=== PATIENT | female | born 1945 | race Caucasian/White ===

== ENCOUNTER → 2017-03-03 | Outpatient (CLI) | payer MEDICARE, SELFPAY | PROVIDERS: Family Provider Family Medicine; Visit Provider Family Medicine | DX: M25.511 Pain in right shoulder (principal) | CPT/HCPCS: 73221 ==

== ENCOUNTER 2017-03-23 10:12 | Outpatient (RCR) | payer MEDICARE, SELFPAY | END 2017-03-23 23:59 | LOC: OT 10:12 | PROVIDERS: Family Provider Family Medicine; Visit Provider Orthopaedic Surgery | DX: M25.511 Pain in right shoulder (principal) | CPT/HCPCS: 97110 ==

== ENCOUNTER → 2017-12-14 09:24 | Outpatient (CLI) | payer MEDICARE, SELFPAY ==
--- NOTE | 2017-12-14 09:26 | MM_ITS ---
MM Dig screening mamm BI w/CAD ORDERING PHYSICIAN : Patrica Verdugo MD PATIENT AGE: 72 years GENDER: Female COMPARISON: None available baseline study INDICATION: ITS.REASON: SCREENING. No hormones. No new complaints noncontributory family history TECHNIQUE: Standard CC and MLO images were obtained. R2 CAD reviewed. FINDINGS: Moderately dense breast particular for age. Mild asymmetry RIGHT BREAST:Note 2 MLO views are submitted. The planar tissue is slightly more evident at right retroareolar region the left but seems to dissipate appropriately on the cc view. Thus no dominant mass or suspicious calcification evident. Follow-up in one year adequate LEFT BREAST:Again note moderately dense breast tissue for age but no focal areas of concern IMPRESSION: . Baseline mammogram. Mild asymmetry but no focal areas of significant concern. Bilateral follow-up in one year recommended and encouraged BI-RADS Category: 2 Benign Finding(s) RECOMMENDED FOLLOW-UP: 1YR 1 YEAR FOLLOW-UP (A letter has been sent to the patient regarding results of the study.)
--- NOTE | 2017-12-14 09:27 | XR_ITS ---
XR DEXA axial skeleton HISTORY: ITS.REASON: POST MENOPAUSAL ORDERING PHYSICIAN: Patrica Verdugo MD PATIENT AGE: 72 years FINDINGS: The BMD measured at the Right femoral neck is 0.756 g/cm squared with a T score of -2.0. This is considered Osteopenic according to the World Health Organization criteria. Fracture risk is Moderate. Treatment is advised. L1-L4 density has a T score of -0.6 IMPRESSION: Osteopenia with moderate fracture risk. Treatment is advised. Recommend follow-up exam December 2019
== END ==
PROVIDERS: Family Provider Family Medicine; PCP Family Medicine; Visit Provider Emergency Medicine
DX: Z12.31 Encounter for screening mammogram for malignant neoplasm of breast (principal); Z78.0 Asymptomatic menopausal state
CPT/HCPCS: 77067; 77080

== ENCOUNTER → 2018-02-28 10:16 | Outpatient (CLI) | payer MEDICARE, SELFPAY ==
--- NOTE | 2018-02-28 10:27 | XR_ITS ---
XR hip RT 2-3V w/pelvis HISTORY: ITS.REASON: RT HIP PAIN ORDERING PHYSICIAN: Patrica Verdugo MD PATIENT AGE: 72 years COMPARISON: None FINDINGS: There are mild osteoarthritic changes involving the right hip with osteophyte formation along the acetabulum. No fracture or dislocation. No lytic or blastic change. There is a pessary device present. Mild osteoarthritis is also present involving the left hip. IMPRESSION: Mild osteoarthritis of the hips
== END ==
PROVIDERS: PCP Emergency Medicine; Visit Provider Emergency Medicine
DX: M25.551 Pain in right hip (principal)
CPT/HCPCS: 73502

== ENCOUNTER → 2018-05-02 15:36 | Outpatient (CLI) | payer MEDICARE, SELFPAY ==
--- NOTE | 2018-05-02 15:40 | MR_ITS ---
MR hip RT wo con HISTORY: Persistent right hip pain ITS.REASON: RIGHT HIP PAIN ORDERING PHYSICIAN: Salvador Barrera MD PATIENT AGE: 72 years COMPARISON: 02/27/2019 TECHNIQUE: Routine multiplanar multiecho sequences are performed without contrast FINDINGS: No fracture or dislocation is evident. There is no evidence of avascular necrosis. There are mild osteoarthritic changes of both hips. No significant effusion evident surrounding soft tissues have an unremarkable appearance. There is a pessary device noted within the pelvis IMPRESSION: 1. No acute finding. 2. Mild osteoarthritis of both hips.
== END ==
PROVIDERS: PCP Family Medicine; Visit Provider Family Medicine
DX: M25.552 Pain in left hip (principal)
CPT/HCPCS: 73721

== ENCOUNTER → 2018-05-11 15:26 | Outpatient (CLI) | payer MEDICARE, SELFPAY ==
--- NOTE | 2018-05-11 15:35 | XR_ITS ---
XR ankle wt bearing RT min 3V HISTORY: ITS.REASON: right ankle pain ORDERING PHYSICIAN: Carline Fowler MD PATIENT AGE: 72 years Comparison: 10/12/2017 FINDINGS: No fracture or dislocation. No lytic or blastic change. There is normal mineralization.. Well-circumscribed calcific density is present at the tip of the medial malleolus and along the medial aspect of the medial malleolus consistent with either old injuries or accessory centers of ossification unchanged from the previous exam. The ankle mortise is preserved. The talar dome has an unremarkable appearance. IMPRESSION: No acute finding. Degenerative changes along the medial malleolus
== END ==
PROVIDERS: PCP Family Medicine; Visit Provider Orthopaedic Surgery
DX: M25.571 Pain in right ankle and joints of right foot (principal)
CPT/HCPCS: 73610

== ENCOUNTER → 2019-04-06 08:50 | Outpatient (CLI) | payer MEDICARE, SELFPAY ==
--- NOTE | 2019-04-06 09:15 | ECG_ITS ---
APPROVED REPORT Exam: Resting ECG HR:71 bpm ECG Measurements Heart Rate 71 AXES HI 148 P 40 QRSd 110 QRS 56 QT 392 T 20 QTc 425 <Conclusion> Normal sinus rhythm Incomplete right bundle branch block Abnormal ECG Electronically signed by : Rito Jamison, 04/06/2019 19:05:06
--- NOTE | 2019-04-06 09:17 | XR_ITS ---
PROCEDURE: XR CHEST 2V CLINICAL HISTORY: SOA COMPARISON: CXR CHEST(2 VIEWS-NOT PORTABLE) from 01/28/2016 CXR CHEST(2 VIEWS-NOT PORTABLE) from 06/22/2016 FINDINGS: The cardiomediastinal silhouette and pulmonary vascularity are within normal limits. The lungs are emphysematous and clear without infiltrates, suspicious nodules, or pleural effusions. No acute bony abnormalities. IMPRESSION: No acute findings. Dictated by: Moreno Alvarez 04/06/2019 11:37 Electronically signed by Moreno Alvarez in [facility] 04/06/2019 11:37
[2019-04-06 10:15] LABS: Alanine Aminotransferase 40 U/L (12-78); Albumin Level 3.8 gm/dL (3.4-5.0); Albumin/Globulin Ratio 1.6 (1.1-1.8); Alkaline Phosphatase 47 U/L (46-116); Anion Gap 10.9 mEq/L (5-15); Aspartate Amino Transferase 23 U/L (15-37); Bilirubin,Total 0.8 mg/dL (0.2-1.0); Blood Urea Nitrogen 20 mg/dL (7-18); Calcium 8.6 mg/dL (8.5-10.1); Carbon Dioxide 29 mmol/L (21.0-32.0); Chloride 106 mmol/L (98-107); Chol/HDL Ratio 3.9 (1-3.5); Cholesterol 159 mg/dL (140-200); Creatinine,Serum 0.84 mg/dL (0.55-1.02); Estimated Glomerular Filt Rate 67 ml/min (>60); GFR (African American) 81 ML/MIN (>60); Globulin 2.4 gm/dl (1.3-3.2); Glucose 96 mg/dL (74-106); HDL Cholesterol 41 mg/dL (29-89); LDL Cholesterol 103 mg/dL (0-130); Potassium 3.9 mmoL/L (3.5-5.1); Sodium 142 mmol/L (136-145); Total Protein,Serum 6.2 gm/dL (6.4-8.2); Triglycerides 76 mg/dL (30-200); VLDL Cholesterol 15 mg/dL (0-40)
[2019-04-06 14:00] LABS: Digoxin 3.08 ng/mL (0.90-2.00)
== END ==
PROVIDERS: Visit Provider Family Medicine
DX: I48.0 Paroxysmal atrial fibrillation (principal); I10 Essential (primary) hypertension; E78.5 Hyperlipidemia, unspecified
CPT/HCPCS: 36415; 71046; 80053; 80061; 80162; 93005

== ENCOUNTER → 2019-10-07 15:04 | Outpatient (CLI) | payer MEDICARE, SELFPAY ==
--- NOTE | 2019-10-07 15:07 | CA_ITS ---
APPROVED REPORT EXAM: Comprehensive 2D, Doppler, and color-flow Echocardiogram Field Operations Coordinator: Barbara Lwo RDCS Ht: 108 ft 8 in Wt: 115lbs BSA: 13.76 BP: 108/68 mmHg Indications: AV SCL,AI, 2D Dimensions LVOT 1.66 cm (M/F) 1.5-2.5 M-Mode Dimensions RVDd 1.99 cm (0.9-2.6) LVDd 4.16 cm (3.5-5.7) LVDs 2.43 cm (3.5-5.7) IVSd 1.06 cm (0.6-1.1) PWd 0.89 cm (0.6-1.1) EF (Teich) 72.90% FS 41.60% EDV (Teich) 76.80 mL ESV (Teich) 20.80 mL LV Diastology E/A Ratio 0.72 Aortic Valve AO VTI 125.26 (18-25 cm) Mitral Valve MV A Velocity 94.00 (40-130 cm/s) Left Ventricle Left atrium is moderately enlarged, left ventricle is normal size, mild concentric left ventricular hypertrophy, hyperdynamic left ventricular systolic function, visually estimated ejection fraction over 65% with no regional wall motion abnormality. Grade 1 diastolic dysfunction seen without tissue Doppler evidence of raise left atrial pressure. Right Ventricle Right atrium and right ventricle is normal size and contractility. Aortic Valve Aortic valve is thickened and calcified, there is no aortic stenosis, there is mild aortic insufficiency. Mitral Valve Mitral valve leaflets are minimally thickened, there is systolic anterior motion of the mitral valve leaflets seen in the left ventricular outflow tract, there is moderate mitral regurgitation, there is increased velocity seen in the left ventricular outflow tract raising the concerns for presence of dynamic left ventricular obstruction, a repeat study with better Doppler technique and Valsalva maneuver is recommended for further evaluation. Tricuspid Valve Tricuspid valve is grossly normal, there is mild tricuspid regurgitation, tricuspid regurgitation jet velocity is inadequate for calculation of the right ventricular systolic pressure. Pulmonic Valve Pulmonic valve is poorly visualized. Great Vessels Aortic root is normal size. Pericardium No significant pericardial effusion noted. Conclusion 1. Moderately enlarged left atrium, normal left ventricular size, mild concentric left ventricular hypertrophy, septum is sigmoid configuration, there is hyperdynamic left ventricular systolic function, visually estimated ejection fraction over 65% with no regional wall motion abnormality, grade 1 diastolic dysfunction seen without tissue Doppler evidence of raise left atrial pressure. 2. Systolic anterior motion of the mitral valve leaflet, there is increased velocities in the left ventricular outflow tract, raising the concerns for presence of dynamic obstruction, a repeat study with better Doppler technique and Valsalva maneuver is recommended. 3. Thickened and calcified aortic valve without aortic stenosis, there is mild aortic insufficiency. 4. Moderate mitral and mild tricuspid regurgitation. 5. No significant pericardial effusion noted. Electronically signed by : Rayshawn Conteh, 10/07/2019 19:41:13
== END ==
PROVIDERS: PCP Family Medicine; Visit Provider Family Medicine
DX: I35.8 Other nonrheumatic aortic valve disorders (principal)
CPT/HCPCS: 93306

== ENCOUNTER → 2020-01-21 06:46 | Outpatient (CLI) | payer MEDICARE, SELFPAY ==
--- NOTE | 2020-01-21 06:48 | NM_ITS ---
APPROVED REPORT Exam: Nuclear Stress Test Indication: Abnormal Echo, Abnormal EKG, HTN, High cholesterol, Cardiomyopathy Patient Location: Outpatient Stress Tech: Allison Larsen MS Tech:Carolann Guevara, ARRT, RT (R)(N) Ht: 4 ft 10 in Wt: 120 lbs Bra Size: 36B HR: 70 bpm BP: 175/94 mmHg BSA: 1.47 m2 BMI: 25.0 History: Abnormal Echo, Abnormal EKG, HTN, High cholesterol, Cardiomyopathy Procedure: Patient received a 0.4 mg of intravenous Lexiscan, resting heart rate 70 bpm, resting blood pressure 175/94 mmHg, with Lexiscan maximum heart rate achived was 124 bpm which is Less than 85 % of the maximum predicted heart rate and blood pressure was 164/95 mmHg. With Lexiscan, patient denied any complaint of chest pain. Electrocardiogram Resting electrocardiogram showed sinus rhythm, with Lexiscan there is less than 1.[address] segment depression noted from the baseline EKG. The EKG portion of the Lexiscan Myoview is nondiagnostic. Cardiac Stress and Resting SPECT Images: Cardiac Stress and Resting SPECT images were obtained using technetium 99m Myoview 30.2 mCi stress and 10.21 mCi at rest. Gated SPECT for analysis of segmental wall motion and calculation of the ejection fraction also done. Cardiac stress and resting SPECT images show uniform myocardial activity without segmental perfusion abnormality, computer derived ejection fraction is 63% with no regional wall motion abnormality, right ventricle is mildly enlarged with normal contractility. Conclusion: 1. The EKG portion of the Lexiscan Myoview is nondiagnostic. 2. No scintigraphic evidence of reversible ischemia seen, computer derived ejection fraction is 63% with no regional wall motion abnormality, right ventricle is mildly enlarged with normal contractility. 3. Normal Lexiscan Myoview study. Electronically signed by : Rayshawn Conteh, 01/22/2020 06:05:24
--- NOTE | 2020-01-21 06:48 | CA_ITS ---
APPROVED REPORT EXAM: Comprehensive 2D, Doppler, and color-flow Echocardiogram Manager Staffing: Barbara Low RDCS Ht: 4 ft 10 in Wt: 119lbs BSA: 1.46 BP: 164/91 mmHg Indications: LVOT OBST, DIZZINESS,MURMUR 2D Dimensions LVOT 1.37 cm (M/F) 1.5-2.5 M-Mode Dimensions RVDd 2.34 cm (0.9-2.6) LA Diam 2.50 cm (1.9-4.0) LVDd 4.12 cm (3.5-5.7) Ao Diam 2.99 cm (2.0-3.7) LVDs 2.71 cm (3.5-5.7) IVSd 0.90 cm (0.6-1.1) PWd 0.90 cm (0.6-1.1) EF (Teich) 63.60% FS 34.20% EDV (Teich) 75.10 mL ESV (Teich) 27.30 mL LV Diastology E Decel Time 300.00 (160-240 msec) E/A Ratio 0.6 MED E' 4.80 (< 7 cm/sec) E'/MED E' Ratio 12.23 (>14) LAT E' 5.20 (<10 cm/sec) E/LAT E' Ratio 11.29 (>14) Mitral Valve MV E Max Mikal. 59.00 (40-130 cm/s) MV A Velocity 96.00 (40-130 cm/s) E/A Ratio 0.61 MV Decel. Time 300.00 (160-240 ms) MV PHT 88.00 ms Left Ventricle Left atrium is mildly enlarged, left ventricle is normal size, mild concentric left ventricular hypertrophy, septum is sigmoid configuration, visually estimated ejection fraction 55 to 60% with no regional wall motion abnormality, grade 1 diastolic dysfunction seen without tissue Doppler evidence of raise left atrial pressure. Right Ventricle Right atrium and right ventricle are normal size and contractility. Aortic Valve Aortic valve is thickened and calcified leaflet chordae display good mobility, there is no aortic stenosis or aortic insufficiency. Mitral Valve Mitral valve leaflets are minimally thickened, there is mild mitral regurgitation, there is no mitral stenosis, there is mild systolic anterior motion of the mitral valve leaflets seen without left ventricular outflow tract dynamic obstruction. Tricuspid Valve Tricuspid valve is grossly normal, there is mild tricuspid regurgitation Pulmonic Valve Pulmonic valve is poorly visualized. Great Vessels Aortic root is normal size. Pericardium No significant pericardial effusion noted. Conclusion 1. Mildly enlarged left atrium, normal left ventricular size, mild concentric left ventricular hypertrophy, visually estimated ejection fraction of 55% with no regional wall motion abnormality, grade 1 diastolic dysfunction seen without tissue Doppler evidence of raise left atrial pressure. Septum is sigmoid configuration. 2. Mild systolic anterior motion of the mitral valve leaflet, there is no left ventricular outflow tract dynamic obstruction seen. There is mild mitral regurgitation. 3. Mild tricuspid regurgitation. 4. No significant pericardial effusion noted. Electronically signed by : Rayshawn Conteh, 01/22/2020 05:26:28
--- NOTE | 2020-01-21 06:48 | CA_ITS ---
APPROVED REPORT Exam: Pharmacologic Technologist: Allison Larsen Ht: 4 ft 10 in Wt: 119 lbs BSA: 1.46 m2 HR: 70 bpm BP: 175/94 mmHg Indications: Abnormal echo 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 Medications: Aspirin,,,,, Verapamil,,,,, Simvastatin,,,,, Losartan,,,,, Naproxen,,,,, Digoxin,,,,, Stress Test Details Test: LEXISCAN HR Resting HR: 88 bpm Max Heart Rate (APMHR): 148 bpm Max HR Achieved: 124 bpm Target HR (85% APMHR): 125 bpm % of APMHR: 83 Recovery HR: 91 bpm BP Resting BP: 175.0/94.0 mmHg Max BP: 179.0/89.0 mmHg Recovery BP: 179.0/89.0 mmHg ECG Clinical Exercise duration: 04:00 min Highest Stage Achieved: Exercise capacity: 1.0 METs Stress ECG Conclusion Resting EKG: Normal sinus rhythm, right bundle branch block Symptoms: Brief shortness of air, mild nausea, mild malaise. No chest pain. Arrhythmias/Ectopy: Rare PAC ST-T Changes: 1mm horizontal ST depression in leads V3, V4, and III Conclusion: Equivocal EKG changes. Myoview images reported separately. Test Summary RECOVERY 03:00 . . 95 . 164/ 92 . . REST 06:02 . . 88 . 175/ 94 . . Stage 1 . . . . . . . Myoview Injected Stage 1 01:00 . . 122 . . . . Stage 2 01:00 . . 120 . 164/ 95 . . Stage 3 01:00 . . 112 . 164/ 95 . . Stage 4 01:00 . . 109 . 146/ 87 . Stop exercise at 04:00 RECOVERY 01:00 . . 109 . . . . RECOVERY 02:00 . . 108 . 164/ 92 . . RECOVERY 03:00 . . 95 . 164/ 92 . . RECOVERY 04:00 . . 100 . 157/ 92 . . RECOVERY 05:00 . . 96 . 157/ 92 . . RECOVERY 06:00 . . 100 . 179/ 89 . . RECOVERY 06:03 . . 100 . 179/ 89 . . Electronically signed by : Rayshawn Conteh, 01/22/2020 05:55:30
== END ==
PROVIDERS: PCP Family Medicine; Visit Provider Urology
DX: I34.0 Nonrheumatic mitral (valve) insufficiency (principal); I35.1 Nonrheumatic aortic (valve) insufficiency; R01.1 Cardiac murmur, unspecified; R93.1 Abnormal findings on diagnostic imaging of heart and coronary circulation; R94.31 Abnormal electrocardiogram [ECG] [EKG]
CPT/HCPCS: 78452; 93017; 93306; A9502; J2785

== ENCOUNTER 2020-07-17 16:50 | Emergency (ER) | payer MEDICARE, SELFPAY ==
[2020-07-17] VITALS (26 sets, daily range): BP systolic 129–200; BP diastolic 84–109; PULSE 78–121; RESP 13–22; TEMP 36.6–36.7; O2SAT 94–98; BMI 24.8
--- NOTE | 2020-07-17 17:00 | ECG_ITS ---
APPROVED REPORT Exam: Resting ECG HR:127 bpm ECG Measurements Heart Rate 127 AXES QRSd 114 QRS 66 QT 318 T 2 QTc 462 Conclusion Atrial fibrillation with rapid ventricular response Right bundle branch block Septal infarct, age undetermined T wave abnormality, consider inferior ischemia or digitalis effect Abnormal ECG Electronically signed by : Rito Jamison, 07/19/2020 20:30:22
--- NOTE | 2020-07-17 17:08 | HMH.EDGENADL ---
ED Disposition Clinical Impression: Atrial fibrillation with rapid ventricular response Pneumonia Qualifiers: Pneumonia type: due to unspecified organism Laterality: bilateral Lung location: unspecified part of lung Qualified Code(s): J18.9 - Pneumonia, unspecified organism Disposition: Admitted as Observation Condition on Discharge: Fair Referrals: Salvador Barrera MD [Primary Care Provider] - - Critical Care Critical Care Time: Yes Attestation: On 07/17/20, the high probability of a clinically significant, sudden or life threatening deterioration of the following system(s) required my full and direct attention, intervention and personal management. The time I documented below is in addition to time spent performing reported procedures but includes the following listed in this critical care notation. Total Critical Care Time: 30 Vital system(s) involved:: Circulatory Failure My critical care processes included: Assessment & monitoring of V/S, Initial and Re-exams, Data Review/Interpretation, Coordinating Care, Medication Orders and management, Documentation Medical Decision Making - Rui Inquiry Pt receiving controlled substance: No Vital Signs: 07/17/20 16:52 07/17/20 17:03 07/17/20 17:08 Temperature 98.1 F Temperature Source Oral Pulse Rate 121 H 114 H Pulse Rate [Right] 111 H Respiratory Rate 19 18 16 Blood Pressure 200/96 H 162/101 H Blood Pressure [Right Arm] 162/101 H Blood Pressure Mean 156 120 Blood Pressure Mean [Right Arm] 121 02 Sat by Pulse Oximetry 97 98 98 07/17/20 17:31 Temperature Temperature Source Pulse Rate 116 H Pulse Rate [Right] Respiratory Rate 20 Blood Pressure 180/101 H Blood Pressure [Right Arm] Blood Pressure Mean 127 Blood Pressure Mean [Right Arm] 02 Sat by Pulse Oximetry 98 - Lab Data Lab Results 07/17/20 17:15: WBC 7.9, RBC 4.23, Hgb 13.9, Hct 40.0, MCV 94.7, MCH 33.0 H, MCHC 34.8, RDW 13.7, Plt Count 344, MPV 6.5 L, Neut % (Auto) 51.8, Lymph % (Auto) 35.8, [place] % (Auto) 8.0, Eos % (Auto) 3.5, Baso % (Auto) 0.9, Neut # (Auto) 4.1, Lymph # (Auto) 2.8, [place] # (Auto) 0.6, Eos # (Auto) 0.3, Baso # (Auto) 0.1 07/17/20 17:15: Sodium 136, Potassium 3.4 L, Chloride 102, Carbon Dioxide 25, Anion Gap 12.4, BUN 16, Creatinine 0.70, Estimated Creat Clear 43, Estimated GFR 82, Est GFR ( Amer) 99, Glucose 146 H, Calcium 9.4, Total Bilirubin 0.7, AST 34, ALT 36, Alkaline Phosphatase 66, Troponin I < 0.01, Total Protein 7.0, Albumin 4.4, Globulin 2.6, Albumin/Globulin Ratio 1.7 07/17/20 17:15: Digoxin 0.90 07/17/20 17:15: TSH 2.92, Free T4 Index 2.3 L, Thyroxine (T4) 7.0, T3 Uptake 33 07/17/20 19:00: Urine Color Yellow, Urine Appearance Clear, Urine pH 7.0, Ur Specific [place] 1.010, Urine Protein Negative, Urine Glucose (UA) Negative, Urine Ketones Negative, Urine Blood 2+, Urine Nitrate Negative, Urine Bilirubin Negative, Urine Urobilinogen 0.2, Ur Leukocyte Esterase Trace Result diagrams: 07/17/20 17:15 07/17/20 17:15 Orders (Tests/Meds): ED MEDICATIONS Generic Name Dose Route Start Last Admin Trade Name Freq PRN Reason Stop Dose Admin Diltiazem HCl 100 mg/ Sodium 100 mls @ 5 mls/hr 07/17/20 17:41 07/17/20 18:02 Chloride IV 08/16/20 17:40 5 mls/hr .Q20H SUBHASH Administration Protocol Levofloxacin/Dextrose 750 mg in 150 mls @ 100 mls/hr 07/17/20 18:45 07/17/20 19:10 Levofloxacin 750mg/150ml Premix IV 07/31/20 18:44 100 mls/hr Q24H SUBHASH Administration Protocol Sodium Chloride 3 ml 07/17/20 18:53 Sodium Chloride 3% 15ml Neb IH 08/16/20 18:52 ONCE PRN INDUCE SPUTUM COLLECTION Discontinued Medications Generic Name Dose Route Start Last Admin Trade Name Freq PRN Reason Stop Dose Admin Diltiazem HCl 10 mg 07/17/20 17:26 07/17/20 18:02 Diltiazem 25mg/5ml Vial IV 07/17/20 17:27 10 mg ONCE ONE Administration Enoxaparin Sodium 55 mg 07/17/20 18:32 07/17/20 19:12 Enoxaparin 100
--- NOTE | 2020-07-17 17:19 | XR_ITS ---
PROCEDURE INFORMATION: Exam: XR Chest Exam date and time: 07/17/2020 5:19 PM Age: 75 years old Clinical indication: Shortness of breath; Patient HX: [place]---. Non-smoker TECHNIQUE: Imaging protocol: XR of the chest. Views: 1 view. COMPARISON: CR XR CHEST 2V 06/10/2019 3:38 PM FINDINGS: Lungs: There are a few faint patchy opacities scattered throughout both lungs. Pleural spaces: No evidence of pleural effusion or pneumothorax. Heart/Mediastinum: The cardiomediastinal silhouette is stable. Bones/joints: No acute displaced fracture. IMPRESSION: Faint patchy opacities scattered throughout both lungs could be secondary to an infectious or inflammatory process or could be secondary to superimposed structures or subsegmental atelectasis.
[2020-07-17 17:30] LABS: Chloride 102 mmol/L (98-107); Potassium 3.4 mmoL/L (3.5-5.1); Sodium 136 mmol/L (136-145)
[2020-07-17 17:33] LABS: Alanine Aminotransferase 36 U/L (12-78); Albumin Level 4.4 g/dl (3.5-5.0); Albumin/Globulin Ratio 1.7 (1.1-1.8); Alkaline Phosphatase 66 U/L (38-126); Anion Gap 12.4 mEq/L (5-15); Aspartate Amino Transferase 34 U/L (14-36); Bilirubin,Total 0.7 mg/dl (0.2-1.3); Blood Urea Nitrogen 16 mg/dl (7-17); Carbon Dioxide 25 mmol/L (22.0-30.0); Creatinine Clearance Estimated 43 mL/min (50-200); Estimated Glomerular Filt Rate 82 ml/min (>60); GFR (African American) 99 ML/MIN (>60); Globulin 2.6 g/dL (1.3-3.2)
[2020-07-17 17:34] LABS: Basophils # 0.1 K/mm3 (0-0.2); Basophils % 0.9 % (0.1-2.0); Calcium 9.4 mg/dl (8.4-10.2); Eosinophils # 0.3 K/mm3 (0.0-0.4); Eosinophils % 3.5 % (0.1-12.0); Glucose 146 mg/dl (74-100); Hemoglobin 13.9 g/dL (12.2-16.2); Lymphocytes # 2.8 K/mm3 (0.7-4.5); Lymphocytes % 35.8 % (10-50); Mean Corpuscular HGB Conc 34.8 g/dL (31.8-35.4); Mean Corpuscular Volume 94.7 fl (81-99); Mean Platelet Volume 6.5 fl (7.4-10.4); Monocytes # 0.6 K/mm3 (0.1-1.0); Neutrophils # 4.1 K/mm3 (1.8-7.8); Neutrophils % 51.8 % (37.0-80.0); Platelet Count 344 K/mm3 (142-424); Red Blood Count 4.23 M/mm3 (4.20-5.40); Red Cell Distribution Width 13.7 % (11.5-17.5); White Blood Count 7.9 K/mm3 (4.8-10.8)
[2020-07-17 17:56] LABS: Troponin I < 0.01 ng/ml (0.00-0.034)
[2020-07-17 18:07] LABS: Free Thyroxine Index 2.3 ug/dL (5.93-13.13); Triiodothryronine (T3) Uptake 33 % (23.5-40.5)
[2020-07-17 18:12] LABS: Adenovirus,PCR Not Detected (NotDetected); Bordetella Pertussis Not Detected (NotDetected); Chlamydophila Pneumoniae, PCR Not Detected (NotDetected); Coronavirus 19, PCR Not Detected (NotDetected); Coronavirus 229E Not Detected (NotDetected); Coronavirus NL63 Not Detected (NotDetected); Coronavirus OC43 Not Detected (NotDetected); Coronovirus HKU1,PCR Not Detected (NotDetected); Human Metapneumovirus Not Detected (NotDetected); Influenza A, PCR Not Detected (NotDetected); Influenza AH1, 2009 Not Detected (NotDetected); Influenza AH1, PCR Not Detected (NotDetected); Influenza AH3,PCR Not Detected (NotDetected); Influenza B, PCR Not Detected (NotDetected); Mycoplasma Pneumoniae, PCR Not Detected (NotDetected); Parainfluenza 1, PCR Not Detected (NotDetected); Parainfluenza 2, PCR Not Detected (NotDetected); Parainfluenza 3, PCR Not Detected (NotDetected); Parainfluenza 4, PCR Not Detected (NotDetected); Respiratory Syncytial Virus Not Detected (NotDetected); Rhinovirus/Enterovirus Not Detected (NotDetected)
[2020-07-17 18:21] LABS: Thyroid Stimulating Hormone 2.92 uIU/mL (0.465-4.68)
--- NOTE | 2020-07-17 18:21 | PC.NURSE ---
Dr. Cao pagegogo
[2020-07-17 19:11] LABS: Microscopic, Urine URINE MICROSCOPIC (MICROSCOPIC)
[2020-07-17 19:13] LABS: Appearance,Urine CLEAR (Clear); Bilirubin,Urine Negative (Negative); Blood, Urine 2+ (Negative); Color,Urine YELLOW (Yellow); Glucose,Urine (UA) Negative (Negative); Ketones,Urine Negative (Negative); Leukocyte Esterase,Urine TRACE (Negative); Nitrate,Urine Negative (Negative); Protein,Urine Negative (Negative); Urobilinogen,Urine 0.2 EU/dl (0.2)
[2020-07-17 19:18] LABS: Lactic Acid 1.1 mmol/L (0.7-2.1)
[2020-07-17 19:19] LABS: RBC,Urine 50-100 #/hpf (0-3); Squamous Epithelial Cell,Urine Occasional #/hpf (0-5); WBC,Urine Occasional #/hpf (0-3)
--- NOTE | 2020-07-17 21:00 | PC.NURSE ---
1930 s/w supervisor carbon paper coating to notify the need for bed assignment. Pt will need step down status d/t [facility] gtt.
--- NOTE | 2020-07-17 21:01 | PC.NURSE ---
Attempted to call report to Albertina Veliz RN, she was transferring another pt and will call back when complete.
--- NOTE | 2020-07-17 21:50 | PC.NURSE ---
Cardizem increased to 10 at this time
[2020-07-17 22:07] LABS: Troponin I 0.01 ng/ml (0.00-0.034)
--- NOTE | 2020-07-17 23:11 | PC.NURSE ---
This RN spoke with MD Alfa and recieved orders for PO cardizem 120mg BID
--- NOTE | 2020-07-17 23:12 | PC.NURSE ---
Cardizem drip stopped at this time
--- NOTE | 2020-07-18 00:03 | PC.NURSE ---
Pt requested to go home. Nash was contacted by this RN and stated pt would need to sign out AMA. Situation explained to pt and family member and risks or leaving hospital and they verbalized understanding. AMA paper signed and placed on chart.
== END 2020-07-18 00:08 | disposition left against medical advice (07) ==
PROVIDERS: Emergency Provider Emergency Medicine; PCP Family Medicine
DX: I48.91 Unspecified atrial fibrillation (principal); J18.9 Pneumonia, unspecified organism; E78.5 Hyperlipidemia, unspecified; I10 Essential (primary) hypertension; Z79.899 Other long term (current) drug therapy
CPT/HCPCS: 71045; 80053; 80162; 81001; 83605; 84436; 84443; 84479; 84484; 85025; 87040; 87581; 87633; 87798; 93005; 96365; 96367; 96372; 96375; 99283; J1956

== ENCOUNTER → 2020-07-21 15:17 | Outpatient (CLI) | payer MEDICARE, SELFPAY ==
[2020-07-21 16:12] LABS: Anion Gap 10.9 mEq/L (5-15); Blood Urea Nitrogen 19 mg/dl (7-17); Calcium 9.6 mg/dl (8.4-10.2); Carbon Dioxide 25 mmol/L (22.0-30.0); Chloride 106 mmol/L (98-107); Estimated Glomerular Filt Rate 70 ml/min (>60); GFR (African American) 85 ML/MIN (>60); Glucose 94 mg/dl (74-100); Magnesium 1.8 mg/dl (1.6-2.3); Potassium 3.9 mmoL/L (3.5-5.1); Sodium 138 mmol/L (136-145)
== END ==
PROVIDERS: Visit Provider Physician Assistant
DX: I34.0 Nonrheumatic mitral (valve) insufficiency (principal); I35.1 Nonrheumatic aortic (valve) insufficiency; R42 Dizziness and giddiness; R93.1 Abnormal findings on diagnostic imaging of heart and coronary circulation
CPT/HCPCS: 36415; 80048; 83735

== ENCOUNTER → 2020-07-29 15:52 | Outpatient (CLI) | payer MEDICARE, SELFPAY ==
--- NOTE | 2020-07-29 15:57 | XR_ITS ---
PROCEDURE: XR CHEST 2V CLINICAL HISTORY: PNEUMONIA OF BOTH LUNGS DUE TO INFECTIOUS ORGANISM, UNSPECIF COMPARISON: CR XR CHEST 2V from 04/06/2019 CR XR CHEST 2V from 06/10/2019 CR XR CHEST PORTABLE from 07/17/2020 FINDINGS: The cardiomediastinal silhouette and pulmonary vascularity are within normal limits. The lungs are clear without infiltrates, suspicious nodules, or pleural effusions. Previously described pulmonary opacities have cleared. Coronary artery calcifications are present. There are mild degenerative changes in the thoracic with mild kyphosis. IMPRESSION: No acute findings. Dictated by: Hakeem Gordon MD 07/29/2020 16:21 Hakeem Gordon MD in [facility] 07/29/2020 16:21
== END ==
PROVIDERS: PCP Family Medicine; Visit Provider Physician Assistant
DX: J18.9 Pneumonia, unspecified organism (principal)
CPT/HCPCS: 71046

== ENCOUNTER 2020-08-01 10:26 | Emergency (ER) | payer MEDICARE, SELFPAY ==
[2020-08-01 10:26] VITALS: BP 131/68; PULSE 68; RESP 16; O2SAT 98; BMI 25.0
--- NOTE | 2020-08-01 10:54 | XR_ITS ---
PROCEDURE INFORMATION: Exam: XR Left Knee Exam date and time: 08/01/2020 10:54 AM Age: 75 years old Clinical indication: Injury or trauma; Fall; Blunt trauma; Left; Patient HX: Twisted knee last night; Additional info: Twisted knee out of truck TECHNIQUE: Imaging protocol: XR Left knee. Views: 3 views. COMPARISON: No relevant prior studies available. FINDINGS: Bones/joints: No joint effusion. No acute fracture or traumatic malalignment. Chronic appearing nonaggressive periosteal bone growth along the proximal fibula, can be seen in the setting of old trauma or from chronic venous insufficiency. Soft tissues: Normal. IMPRESSION: No acute osseous abnormality.
[2020-08-01 10:55] VITALS: BP 124/59; PULSE 68; RESP 17; TEMP 37; O2SAT 98; BMI 25.0
[2020-08-01 10:59] VITALS: BP 124/59; PULSE 68; RESP 17; TEMP 37; O2SAT 98
--- NOTE | 2020-08-01 11:23 | HMH.EDUTC ---
[facility] [place] Disposition Clinical Impression: Right knee pain Qualifiers: Chronicity: acute Qualified Code(s): M25.561 - Pain in right knee Fall Qualifiers: Encounter type: initial encounter Qualified Code(s): W19.XXXA - Unspecified fall, initial encounter Disposition: Home, Self-Care Condition on Discharge: Good Instructions: DI for Knee Sprain Additional Instructions: Rest the extremity, apply ice for 15 minutes as tolerated three or four times per day, Wear the nava wrap for compression, Elevate the extremity as tolerated while you are resting. Take ibuprofen for pain. Follow up with Dr. Dumont (orthopedics). I put in a referral but you need to call his office and schedule an appointment. Follow up with your regular doctor. GO TO THE ER FOR ANY WORSENING SYMPTOMS Referrals: Salvador Barrera MD [Primary Care Provider] - Baljit Dumont MD [Staff Physician] - Time of Disposition: 11:37 Medical Decision Making - Medical Records Medical records reviewed: No: I reviewed the patient's medical records. - Rui Inquiry Pt receiving controlled substance: No Vital Signs: 08/01/20 10:26 08/01/20 10:55 08/01/20 10:59 Temperature 98.6 F 98.6 F Temperature Source Oral Pulse Rate 68 Pulse Rate [Radial] 68 68 Respiratory Rate 16 17 17 Blood Pressure 124/59 L Blood Pressure [Right Arm] 131/68 124/59 L Blood Pressure Mean [Right Arm] 89 80 Blood Pressure Position [Right Arm] Sitting 02 Sat by Pulse Oximetry 98 98 Oxygen Delivery Method Room Air - Radiology Data #1 Image(s): Knee Image Reviewed: Yes I reviewed the patient's radiology image, Yes I have reviewed radiologist's interpretation Preliminary Findings: No Fracture Seen PROCEDURE INFORMATION: Exam: XR Left Knee Exam date and time: 08/01/2020 10:54 AM Age: 75 years old Clinical indication: Injury or trauma; Fall; Blunt trauma; Left; Patient HX: Twisted knee last night; Additional info: Twisted knee out of truck TECHNIQUE: Imaging protocol: XR Left knee. Views: 3 views. COMPARISON: No relevant prior studies available. FINDINGS: Bones/joints: No joint effusion. No acute fracture or traumatic malalignment. Chronic appearing nonaggressive periosteal bone growth along the proximal fibula, can be seen in the setting of old trauma or from chronic venous insufficiency. Soft tissues: Normal. IMPRESSION: No acute osseous abnormality. [facility] [place] HPI - General Stated complaint: right knee pain, no accident Time Seen by Provider: 08/01/20 11:24 Mode of Arrival: Ambulatory Source of Information: Patient Limitations: No Limitations Description of Symptoms (Recalled from Triage Doc. by RN): Pt states that she twisted her left knee getting out of her truck last night. Left knee pain HEENT Symptoms (Recalled from RN notes): No Resp Symptoms (Recalled from RN notes): No Skin Symptoms (Recalled from RN notes): No MS Symptoms (Recalled from RN notes): Yes Functional Status (Recalled from RN notes): wnl - History of Present Illness Provider Complaint: She states that she has had right knee pain since slipping while getting out of her truck last night. She states that bearing weight and walking makes her pain worse. - Related Data Home Medications Medication Instructions Recorded Confirmed aspirin 81 mg tablet,delayed 81 mg PO Q OTHER DAY tab 12/31/19 07/21/20 release digoxin 250 mcg (0.25 mg) tablet 125 mcg PO DAILY tab 12/31/19 07/21/20 losartan 25 mg tablet 25 mg PO DAILY tab 12/31/19 07/21/20 naproxen 500 mg tablet 500 mg PO DAILY tab 12/31/19 07/21/20 simvastatin 10 mg tablet 40 mg PO QPM tab 12/31/19 07/21/20 verapamil 120 mg tablet,extended 120 mg PO DAILY tab 12/31/19 07/21/20 release alendronate 70 mg tablet 70 mg PO WEEKLY tab 07/21/20 07/21/20 Previous Rx's Medication Instructions Recorded metoprolol succi
== END 2020-08-01 11:44 | disposition home or self-care (01) ==
LOC: ER 10:34 → UTC 10:34
PROVIDERS: Emergency Provider Nurse Practitioner Family; PCP Family Medicine
DX: M25.561 Pain in right knee (principal); X50.1XXA Overexertion from prolonged static or awkward postures, initial encounter; Y92.89 Other specified places as the place of occurrence of the external cause; I10 Essential (primary) hypertension; E78.5 Hyperlipidemia, unspecified; I48.91 Unspecified atrial fibrillation; Z79.899 Other long term (current) drug therapy
CPT/HCPCS: G0463; 73562; 99203

== ENCOUNTER → 2020-08-20 08:52 | Outpatient (CLI) | payer MEDICARE, SELFPAY ==
--- NOTE | 2020-08-20 09:27 | CA_ITS ---
APPROVED REPORT Office Admin: SHUBHAM Study Quality: Adequate, Due to patient motion. Indications: htn Risk Factors Hypertension Renal Artery Doppler Origin (R) 135.8/ cm/sec Proximal (R) 143.7/ cm/sec Mid (R) 163.9/ cm/sec Distal (R) 102.7/ cm/sec Renal Aorta Ratio (R) 0.00 Segmental A. (R) / cm/sec RI: 0.65 Segmental A. Sup (R) 30.0/11.0 cm/sec Segmental A. Mid (R) 24.0/8.0 cm/sec Segmental A. Inf (R) 45.0/16.0 cm/sec Origin (L) 96.5/ cm/sec Proximal (L) 116.0/ cm/sec Mid (L) 127.9/ cm/sec Distal (L) 147.0/ cm/sec Renal Aorta Ratio (L) 0.00 Segmental A. (L) / cm/sec RI: 0.65 Segmental A. Sup (L) 35.0/14.0 cm/sec Segmental A. Mid (L) 37.0/12.0 cm/sec Segmental A. Inf (L) 35.0/13.0 cm/sec Renal Measurements Kidney Size (R) 9.6x3.6 cm Cortical Thickness (R) 1.2 cm Kidney Size (L) 8.4x3.6 cm Cortical Thickness (L) 1.2 cm Findings Duplex evaluation demonstrates less than 60% stenosis of both renal arteries with PSV less than 180 cm/s and/or Renal/Aortic ratio (RAR) greater than 3.5. Left kidney displays two cystic structures and calcifications. No Evidence of Renal artery stenosis observed bilaterally. Conclusion No Evidence of Renal artery stenosis observed bilaterally. Electronically signed by : Hakeem Gordon MD 08/20/2020 15:22:51
== END ==
PROVIDERS: PCP Family Medicine; Visit Provider Physician Assistant
DX: I34.0 Nonrheumatic mitral (valve) insufficiency (principal); I35.1 Nonrheumatic aortic (valve) insufficiency; R01.1 Cardiac murmur, unspecified; R42 Dizziness and giddiness; R93.1 Abnormal findings on diagnostic imaging of heart and coronary circulation; I10 Essential (primary) hypertension
CPT/HCPCS: 93306; 93976

== ENCOUNTER → 2020-08-31 15:07 | Outpatient (CLI) | payer MEDICARE, SELFPAY ==
[2020-08-31 15:44] LABS: Basophils % 0.6 % (0.1-2.0); Eosinophils # 0.2 K/mm3 (0.0-0.4); Eosinophils % 2.7 % (0.1-12.0); Hematocrit 35.3 % (37.0-47.0); Hemoglobin 12.2 g/dL (12.2-16.2); Mean Corpuscular HGB Conc 34.6 g/dL (31.8-35.4); Mean Corpuscular Hemoglobin 32.6 pg (27.0-31.2); Mean Corpuscular Volume 94.1 fl (81-99); Mean Platelet Volume 7.1 fl (7.4-10.4); Monocytes # 0.5 K/mm3 (0.1-1.0); Monocytes % 7.5 % (1.7-9.3); Neutrophils # 4.1 K/mm3 (1.8-7.8); Neutrophils % 60.3 % (37.0-80.0); Platelet Count 301 K/mm3 (142-424); Red Blood Count 3.75 M/mm3 (4.20-5.40); Red Cell Distribution Width 13.3 % (11.5-17.5); White Blood Count 6.9 K/mm3 (4.8-10.8)
[2020-08-31 16:33] LABS: Anion Gap 12.7 mEq/L (5-15); Blood Urea Nitrogen 20 mg/dl (7-17); Calcium 9.5 mg/dl (8.4-10.2); Carbon Dioxide 27 mmol/L (22.0-30.0); Chloride 103 mmol/L (98-107); Estimated Glomerular Filt Rate 70 ml/min (>60); GFR (African American) 85 ML/MIN (>60); Glucose 90 mg/dl (74-100); Potassium 3.7 mmoL/L (3.5-5.1); Sodium 139 mmol/L (136-145)
== END ==
PROVIDERS: Visit Provider Nurse Practitioner Family
DX: I34.0 Nonrheumatic mitral (valve) insufficiency (principal); I35.1 Nonrheumatic aortic (valve) insufficiency; I42.2 Other hypertrophic cardiomyopathy; R01.1 Cardiac murmur, unspecified; R42 Dizziness and giddiness; R93.1 Abnormal findings on diagnostic imaging of heart and coronary circulation
CPT/HCPCS: 36415; 80048; 85025

== ENCOUNTER 2020-09-07 08:10 | Emergency (ER) | payer MEDICARE, SELFPAY ==
[2020-09-07 08:18] VITALS: BP 129/107; PULSE 73; RESP 20; TEMP 36.9; O2SAT 97; BMI 25.0
--- NOTE | 2020-09-07 08:23 | XR_ITS ---
PROCEDURE: XR WRIST LT 2V CLINICAL INDICATION: injury Pain COMPARISON: CR XR HAND LT 2V from 09/07/2020 FINDINGS: No fracture or dislocation. No lytic or blastic change. There is normal mineralization. There is radial deviation the wrist and hand with the distal radius articular surface tilted proximally toward the ulna. Osteoarthritic changes are noted involving the hand with small osteophytes at the PIP joints and DIP joints.. Other findings:None. IMPRESSION: No acute findings. Dictated by: Hakeem Gordon MD 09/07/2020 09:09 Hakeem Gordon MD in [place] 09/07/2020 09:11
--- NOTE | 2020-09-07 08:23 | HMH.EDGENADL ---
ED Disposition Clinical Impression: Hematoma Contusion Qualifiers: Encounter type: initial encounter Contusion area: hand Disposition: Home, Self-Care Condition on Discharge: Good Referrals: Provider,MD Simone [Referring] - 09/09/20 Time of Disposition: 08:53 - Critical Care Critical Care Time: No Attestation: On , the high probability of a clinically significant, sudden or life threatening deterioration of the following system(s) required my full and direct attention, intervention and personal management. The time I documented below is in addition to time spent performing reported procedures but includes the following listed in this critical care notation. Medical Decision Making - Medical Records Medical records reviewed: Yes: I reviewed the patient's medical records. - Rui Inquiry Pt receiving controlled substance: No Vital Signs: 09/07/20 08:18 Temperature 98.4 F Temperature Source Oral Pulse Rate [Left Radial] 73 Respiratory Rate 20 Blood Pressure [Right Arm] 129/107 H Blood Pressure Mean [Right Arm] 114 Blood Pressure Source [Right Arm] Automatic Cuff Blood Pressure Position [Right Arm] Sitting 02 Sat by Pulse Oximetry 97 Oxygen Delivery Method Room Air Orders (Tests/Meds): ORDERS Category Date Time Status XR hand LT 2V Stat Exams 09/07/20 08:23 Taken XR wrist LT 2V Stat Exams 09/07/20 08:23 Taken - Radiology Data #1 Image(s): Wrist, Hand Image Reviewed: Yes I reviewed the patient's radiology image Preliminary Findings: Normal/NAD Medical Decision Narrative: 75yo F evaluated for large hematoma. Patient is in no acute distress. Counseled on ice pack, range of motion exercises. Continue medications as directed. Follow-up PCP in 2 to 3 days. Return to emergency department for worsening swelling, increasing pain. General Adult HPI - General Stated complaint: r hand bruised and swollen Time Seen by Provider: 09/07/20 08:24 Mode of Arrival: Ambulatory Limitations: No Limitations Description of Symptoms (Recalled from ER Triage Doc. by RN): c/o left wrist/hand pain, states that she got her hand caught between a piece of wood and the garage door. Hematoma noted at wrist /hand area. Lortab was taken at home before arrival. - History of Present Illness HPI narrative: 75yo F with past medical history of atrial fibrillation on Xarelto presents the emergency department secondary to injury to her left hand. Patient has a large swollen area on the posterior aspect over her fourth and fifth ray. Injury occurred immediately prior to arrival. Patient denies any other injury. She denies any other recent illness. Reports taking all medications as directed. - Related Data Home Medications Medication Instructions Recorded Confirmed aspirin 81 mg tablet,delayed 81 mg PO Q OTHER DAY tab 12/31/19 07/21/20 release digoxin 250 mcg (0.25 mg) tablet 125 mcg PO DAILY tab 12/31/19 07/21/20 losartan 25 mg tablet 25 mg PO DAILY tab 12/31/19 07/21/20 naproxen 500 mg tablet 500 mg PO DAILY tab 12/31/19 07/21/20 simvastatin 10 mg tablet 40 mg PO QPM tab 12/31/19 07/21/20 verapamil 120 mg tablet,extended 120 mg PO DAILY tab 12/31/19 07/21/20 release alendronate 70 mg tablet 70 mg PO WEEKLY tab 07/21/20 07/21/20 Previous Rx's Medication Instructions Recorded metoprolol succinate 50 mg 50 mg PO DAILY #30 tab 07/21/20 tablet,extended release 24 hr rivaroxaban 15 mg tablet 15 mg PO DAILY #30 tab 07/21/20 Allergies Allergy/AdvReac Type Severity Reaction Status Date / Time No Known Allergies Allergy Verified 08/31/20 14:44 [facility] History - Hepatitis A Screen Drug use history?: No High risk sexual behaviors?: No History of sexually transmitted infection?: No Currently employed?: No Childcare worker?: No Do you have indoor plumbing?: Yes Do you have electricity?: Yes Attestation statement:: This patient has been screened for Hepatitis A risk factors.
--- NOTE | 2020-09-07 08:38 | PC.NURSE ---
Pt to radiology
[2020-09-07 09:02] VITALS: BP 148/73; PULSE 62; RESP 20; TEMP 36.9; O2SAT 97
== END 2020-09-07 09:04 | disposition home or self-care (01) ==
PROVIDERS: Emergency Provider Family Medicine; PCP Family Medicine
DX: S60.221A Contusion of right hand, initial encounter (principal); W23.1XXA Caught, crushed, jammed, or pinched between stationary objects, initial encounter; Y92.015 Private garage of single-family (private) house as the place of occurrence of the external cause; I48.91 Unspecified atrial fibrillation; E78.5 Hyperlipidemia, unspecified; I10 Essential (primary) hypertension; Z79.899 Other long term (current) drug therapy
CPT/HCPCS: 73100; 73120; 99282

== ENCOUNTER → 2020-12-10 08:07 | Outpatient (CLI) | payer MEDICARE, SELFPAY ==
--- NOTE | 2020-12-10 08:12 | US_ITS ---
PROCEDURE: US KIDNEY CLINICAL INDICATION: Left flank pain COMPARISON: US CA RENAL ARTERY DUPLEX from 08/20/2020 FINDINGS: The right kidney is [id number]. No hydronephrosis, cortical thinning, or renal mass or perinephric fluid collection is evident. The left kidney is [id number]. No hydronephrosis, cortical thinning, or renal mass or perinephric fluid collection is evident. IMPRESSION: Unremarkable bilateral renal ultrasound Dictated by: Hakeem Gordon MD 12/10/2020 14:33 Hakeem Gordon MD in [place] 12/10/2020 14:33
--- NOTE | 2020-12-10 08:12 | US_ITS ---
PROCEDURE: US TRANSVAGINAL CLINICAL INDICATION: Left Flank Pain COMPARISON: No exams were available for comparison FINDINGS: The uterus is retroverted. Numerous small hyper echogenicities are present in the uterus consistent with senescent calcifications. UTERUS: 6cm x 4cmx 3cm with a combined endometrial thickness of 4.5mm LEFT OVARY: [id number] with a volume of 1.9ml. RIGHT OVARY: [id number] with a volume of 1.7ml. No adnexal mass or cul-de-sac fluid. IMPRESSION: Retroverted uterus with degenerative calcifications otherwise negative Dictated by: Hakeem Gordon MD 12/10/2020 18:03 Hakeem Gordon MD in [place] 12/10/2020 18:03
== END ==
PROVIDERS: PCP Family Medicine; Visit Provider Nurse Practitioner Obstetrics & Gynecology
DX: R10.9 Unspecified abdominal pain (principal); M54.9 Dorsalgia, unspecified; N20.0 Calculus of kidney
CPT/HCPCS: 76770; 76830

== ENCOUNTER 2021-01-26 13:41 | Emergency (ER) | payer MEDICARE, MEDICAID, SELFPAY ==
[2021-01-26 13:42] VITALS: BP 160/88; RESP 20; TEMP 36.8; O2SAT 97; BMI 25.2
--- NOTE | 2021-01-26 13:52 | HMH.EDGENADL ---
ED Disposition Clinical Impression: Effusion, right knee Right knee pain Qualifiers: Chronicity: acute Qualified Code(s): M25.561 - Pain in right knee Disposition: Home, Self-Care Condition on Discharge: Good Instructions: DI for Knee Effusion, DI for Knee Pain, How to Use a Knee Immobilizer Additional Instructions: Knee immobilizer. Continue Tylenol for pain. Ice 20 minutes 3-4 times a day for swelling. Follow-up with orthopedist, Dr. Dumont, in his office. Call for appointment. Referrals: Salvador Barrera MD [Primary Care Provider] - Baljit Dumont MD [Staff Physician] - - Critical Care Critical Care Time: No Attestation: On 01/26/21, the high probability of a clinically significant, sudden or life threatening deterioration of the following system(s) required my full and direct attention, intervention and personal management. The time I documented below is in addition to time spent performing reported procedures but includes the following listed in this critical care notation. Medical Decision Making - Rui Inquiry Pt receiving controlled substance: No Vital Signs: 01/26/21 13:42 01/26/21 14:05 Temperature 98.2 F Temperature Source Oral Pulse Rate 70 Respiratory Rate 20 Blood Pressure [Right Arm] 160/88 H Blood Pressure Mean [Right Arm] 112 Blood Pressure Source [Right Arm] Automatic Cuff Blood Pressure Position [Right Arm] Sitting 02 Sat by Pulse Oximetry 97 Oxygen Delivery Method Room Air Orders (Tests/Meds): ORDERS Category Date Time Status Knee XR right 3 views [XR knee RT 3V] Stat Exams 01/26/21 13:56 Taken - Radiology Data #1 Image(s): Knee Image Reviewed: Yes I reviewed the patient's radiology image Degenerative changes, no fracture or dislocation. Medical Decision Narrative: The patient states that her her daughter who is a nurse told her she might have to have her knee drained. She only has a small effusion and I do not feel that arthrocentesis is indicated, particularly given the fact that she is on Xarelto and could develop hemarthrosis from arthrocentesis. Given patient's recurrent right knee pain, I suspect she may have a meniscus tear. Refer to orthopedics for evaluation. General Adult HPI - General Stated complaint: rt knee pain no accident Time Seen by Provider: 01/26/21 13:52 - History of Present Illness HPI narrative: Complains of right knee pain for 10 days to 2 weeks. She remembers doing something that caused a sudden pain but cannot remember what it was, she thinks it might have been getting in and out of the truck. Since then she has pain which increases with ambulation. Denies numbness or weakness. She is able to walk on it, in fact she says that there were no parking places close to the emergency department today and she had to park up the hill and walk all the way down. She has been taking extra strength Tylenol for pain. She cannot take anti-inflammatories because she is on Xarelto for atrial fibrillation for the past several months. I noted that she had been seen in the urgent treatment center in July for chief complaint of right knee pain with a similar described injury, and a discharge diagnosis of right knee pain. However, the x-ray performed on that visit was her left knee. The patient does not remember the visit and therefore it is unclear whether it was her left knee or right knee that was bothering her. - Related Data Home Medications Medication Instructions Recorded Confirmed aspirin 81 mg tablet,delayed 81 mg PO Q OTHER DAY tab 12/31/19 12/04/20 release digoxin 250 mcg (0.25 mg) tablet 125 mcg PO DAILY tab 12/31/19 12/04/20 losartan 25 mg tablet 25 mg PO DAILY tab 12/31/19 12/04/20 verapamil 120 mg tablet,extended 120 mg PO DAILY tab 12/31/19 12/04/20 release alendronate 70 mg tablet 70 mg PO WEEKLY tab 07/21/20 12/04/20 simvastatin 40 mg tablet 40 mg PO tab 12/04/20 12/04/20 P
--- NOTE | 2021-01-26 13:56 | XR_ITS ---
PROCEDURE: XR KNEE RT 3V CLINICAL INDICATION: pain/injury COMPARISON: CR XR KNEE LT 3V from 08/01/2020 FINDINGS: No fracture or dislocation. No lytic or blastic change. There is normal mineralization. There are mild osteoarthritic changes of all 3 compartments greatest at the medial compartment and patellofemoral joint. IMPRESSION: Osteoarthritis Dictated by: Hakeem Gordon MD 01/27/2021 14:44 Hakeem Gordon MD in [place] 01/27/2021 14:44
[2021-01-26 14:05] VITALS: PULSE 70
[2021-01-26 14:52] VITALS: BP 185/98; PULSE 72; RESP 18; TEMP 36.8; O2SAT 97
== END 2021-01-26 15:00 | disposition home or self-care (01) ==
PROVIDERS: Emergency Provider Emergency Medicine; PCP Family Medicine
DX: M25.461 Effusion, right knee (principal); M25.561 Pain in right knee; I48.91 Unspecified atrial fibrillation; E78.5 Hyperlipidemia, unspecified; I10 Essential (primary) hypertension; Z79.899 Other long term (current) drug therapy
CPT/HCPCS: 29505; 73562; 99283

== ENCOUNTER → 2021-03-05 09:57 | Outpatient (CLI) | payer MEDICARE, SELFPAY ==
--- NOTE | 2021-03-05 10:02 | XR_ITS ---
PROCEDURE: XR LUMBAR SPINE MIN 4V CLINICAL INDICATION: LT SIDE LOW BACK PAIN COMPARISON: No exams were available for comparison FINDINGS: Minimal thoracolumbar curvature convex right. Facet arthritic changes L4, L5, and S1. Degenerative disc disease L4-5. 2 mm anterolisthesis of L4. Mild degenerative disc disease L3-L4. Small endplate osteophytes. No acute fracture or dislocation. No lytic or blastic change Mild spurring along the inferior aspect of the SI joints. No evidence of SI fusion or lytic change. Mild degenerative changes of the hips. Other findings:There is a pessary device present IMPRESSION: Degenerative changes as described above Dictated by: Hakeem Gordon MD 03/05/2021 11:44 Hakeem Gordon MD in [place] 03/05/2021 11:44
== END ==
PROVIDERS: PCP Family Medicine; Visit Provider Physician Assistant
DX: M54.42 Lumbago with sciatica, left side (principal)
CPT/HCPCS: 72110

== ENCOUNTER → 2021-03-31 14:52 | Outpatient (CLI) | payer MEDICARE, MEDICAID, SELFPAY | PROVIDERS: PCP Family Medicine; Visit Provider Urology | DX: R31.9 Hematuria, unspecified (principal); Z01.812 Encounter for preprocedural laboratory examination; Z11.52 Encounter for screening for COVID-19 | CPT/HCPCS: C9803; U0003; U0005 ==

== ENCOUNTER 2021-04-02 08:09 | Day surgery (SDC) | payer MEDICARE, MEDICAID, SELFPAY ==
[2021-04-01 15:13] VITALS: BMI 25.2
[2021-04-02 08:32] VITALS: BP 154/76; PULSE 79; RESP 16; TEMP 37.2; O2SAT 97
[2021-04-02 09:39] VITALS: BP 142/74; PULSE 77; RESP 18; TEMP 37; O2SAT 97
--- NOTE | 2021-04-02 11:33 | HMH.OPNOTE ---
Date of procedure: 04/02/21 Pre-op Diagnosis:: Microhematuria Post-op Diagnosis:: Same Procedure performed:: Cystoscopy Surgeon:: Edy Olivarez MD Anesthesia: local Estimated blood loss (mL): 0 Clinical Note:: Patient is 75-year-old white female with history of microhematuria. She presents for cystoscopic evaluation. She has no history of gross hematuria. Previous ultrasound showed no evidence of stones, masses or obstruction. Operative findings:: Bladder showed normal bladder mucosa without evidence of stones, trabeculation, diverticula or bladder tumor. Operative note:: Patient taken to the cystoscopy suite after informed consent was obtained. On the stretcher she was placed into the supine position in the frog-leg position. She was prepped and draped in the standard surgical fashion. 2% lidocaine jelly placed into the urethra and after a few minutes the flexible cystoscope introduced into the urethral meatus. Passed into the bladder without difficulty and the bladder examined in a systematic fashion. There is no evidence of bladder tumors, mucosal abnormalities, diverticula, trabeculation or stones. The ureteral orifices in their normal anatomic position with clear efflux of urine. The scope was retroflexed showing slightly erythematous bladder neck and the scope was pulled back to the bladder neck and there were some small frondular findings there. The urethra was otherwise normal. The scope removed the patient tolerated the procedure well. We discussed the findings today she was reassured there is no evidence of suspicious abnormalities. She will return on an as-needed basis. Condition: stable Disposition: same day Specimens:: None Complications:: None
== END 2021-04-02 10:15 | disposition home or self-care (01) ==
LOC: OUTP 08:10
PROVIDERS: PCP Family Medicine; Visit Provider Urology
DX: R31.0 Gross hematuria (principal); N32.89 Other specified disorders of bladder; Z79.82 Long term (current) use of aspirin; Z79.899 Other long term (current) drug therapy; I48.91 Unspecified atrial fibrillation; E78.5 Hyperlipidemia, unspecified; I10 Essential (primary) hypertension; Z90.49 Acquired absence of other specified parts of digestive tract
CPT/HCPCS: 52000

== ENCOUNTER → 2021-05-08 09:26 | Outpatient (CLI) | payer MEDICARE, MEDICAID, SELFPAY ==
--- NOTE | 2021-05-08 09:47 | XR_ITS ---
PROCEDURE INFORMATION: Exam: XR Chest Exam date and time: 05/08/2021 9:47 AM Age: 75 years old Clinical indication: Cough; Additional info: Congestion and cough TECHNIQUE: Imaging protocol: XR of the chest. Views: 2 views. COMPARISON: CR XR CHEST 2V 07/29/2020 3:59 PM FINDINGS: Lungs: No focal airspace disease. Pleural spaces: Unremarkable. No pleural effusion. No pneumothorax. Heart/Mediastinum: Cardiomediastinal silhouette is within normal limits. Bones/joints: Unremarkable. IMPRESSION: No acute cardiopulmonary abnormality.
[2021-05-08 10:45] LABS: Basophils # 0.1 K/mm3 (0-0.2); Basophils % 0.8 % (0.1-2.0); Eosinophils # 0.1 K/mm3 (0.0-0.4); Eosinophils % 1.8 % (0.1-12.0); Hematocrit 41.1 % (37.0-47.0); Hemoglobin 13.7 g/dL (12.2-16.2); Lymphocytes # 1.8 K/mm3 (0.7-4.5); Mean Corpuscular HGB Conc 33.4 g/dL (31.8-35.4); Mean Corpuscular Hemoglobin 32.8 pg (27.0-31.2); Mean Corpuscular Volume 98.4 fl (81-99); Mean Platelet Volume 6.5 fl (7.4-10.4); Monocytes # 0.5 K/mm3 (0.1-1.0); Monocytes % 7.8 % (1.7-9.3); Neutrophils # 3.5 K/mm3 (1.8-7.8); Neutrophils % 59.7 % (37.0-80.0); Platelet Count 351 K/mm3 (142-424); Red Blood Count 4.18 M/mm3 (4.20-5.40); Red Cell Distribution Width 13.5 % (11.5-17.5); White Blood Count 5.8 K/mm3 (4.8-10.8)
== END ==
PROVIDERS: PCP Family Medicine; Referring Provider Physician Assistant; Visit Provider Family Medicine
DX: R05.9 Cough, unspecified (principal)
CPT/HCPCS: 36415; 71046; 85025

== ENCOUNTER → 2022-01-06 09:46 | Outpatient (CLI) | payer MEDICARE, MEDICAID, SELFPAY ==
--- NOTE | 2022-01-06 10:27 | XR_ITS ---
FINAL REPORT TECHNIQUE: Chest PA & Lateral CLINICAL HISTORY: ACUTE UPPER RESPIATORY INFECTION COMPARISON: April 2021 FINDINGS: 2 views of the chest were performed. The heart size is normal. The mediastinum is within normal limits. The lungs are hyperinflated consistent with COPD. There is no acute cardiopulmonary process. There are no pleural effusions. There is no pneumothorax. The bony thorax appears intact. IMPRESSION: No acute cardiopulmonary process. Reviewed, Interpreted and Dictated by Tommy Recinos III, MD Transcribed by Dany Mora Authenticated and . [facility]
[2022-01-06 10:56] LABS: Basophils # 0.1 K/mm3 (0-0.2); Basophils % 0.8 % (0.1-2.0); Eosinophils # 0.1 K/mm3 (0.0-0.4); Eosinophils % 1.3 % (0.1-12.0); Hematocrit 39.2 % (37.0-47.0); Hemoglobin 12.7 g/dL (12.2-16.2); Lymphocytes # 2.3 K/mm3 (0.7-4.5); Lymphocytes % 28.9 % (10-50); Mean Corpuscular HGB Conc 32.2 g/dL (31.8-35.4); Mean Corpuscular Hemoglobin 31.4 pg (27.0-31.2); Mean Corpuscular Volume 97.3 fl (81-99); Mean Platelet Volume 6.7 fl (7.4-10.4); Monocytes # 0.6 K/mm3 (0.1-1.0); Monocytes % 7.8 % (1.7-9.3); Neutrophils # 4.9 K/mm3 (1.8-7.8); Neutrophils % 61.3 % (37.0-80.0); Platelet Count 381 K/mm3 (142-424); Red Blood Count 4.03 M/mm3 (4.20-5.40); Red Cell Distribution Width 13.8 % (11.5-17.5); White Blood Count 7.9 K/mm3 (4.8-10.8)
== END ==
PROVIDERS: PCP Family Medicine; Visit Provider Physician Assistant
DX: J06.9 Acute upper respiratory infection, unspecified (principal)
CPT/HCPCS: 36415; 71046; 85025

== ENCOUNTER 2022-02-01 08:26 | Emergency (ER) | payer MEDICARE, MEDICAID, SELFPAY ==
[2022-02-01 08:27] VITALS: BP 171/96; PULSE 77; RESP 18; TEMP 36.6; O2SAT 98; BMI 24.0
[2022-02-01 09:00] VITALS: BP 151/88; PULSE 70; RESP 18; O2SAT 97
--- NOTE | 2022-02-01 09:08 | CT_ITS ---
FINAL REPORT CLINICAL HISTORY: abdo pain FINDINGS: CT OF THE ABDOMEN AND PELVIS WITH CONTRAST Axial CT images of the abdomen and pelvis were obtained after the administration of intravenous contrast. Coronal reformatted images were also obtained and reviewed.This study was performed with techniques to keep radiation doses as low as reasonably achievable (ALARA). Individualized dose reduction techniques using automated exposure control or adjustment of mA and/or kV according to the patient's size were employed. Abdomen: There is mild bibasilar atelectasis or scarring. The heart is normal in size. The liver has an unremarkable appearance, without evidence of mass or biliary ductal dilatation. The gallbladder is moderately distended with mild nonspecific wall thickening. The spleen is unremarkable. No adrenal mass is present. The pancreas has an unremarkable appearance. There are small bilateral renal cysts. The aorta is normal in caliber. There is no free fluid or adenopathy. No mass or abnormal fluid collection is seen. There is a large amount of retained stool. Pelvis: The appendix is not well-visualized. The urinary bladder is unremarkable. There is no evidence of mass or adenopathy. There is a small left inguinal hernia containing fat. A pessary device is present. There is significant wall thickening of the rectosigmoid junction. IMPRESSION: Significant wall thickening of the rectosigmoid junction. Uncertain if this is neoplastic or inflammatory change. This could be further evaluated with colonoscopy. Large amount of retained stool. Reviewed, Interpreted and Dictated by Tommy Recinos III, MD Transcribed by Dany Mora Authenticated and [facility]
--- NOTE | 2022-02-01 09:09 | HMH.EDGENADL ---
Discharge Plan Disposition Patient Disposition: Home, Self-Care Condition: Good Prescriptions Prescriptions: No Action alendronate 70 mg tablet 70 mg PO WEEKLY digoxin 250 mcg (0.25 mg) tablet 125 mcg PO DAILY verapamil 120 mg tablet extended release 120 mg PO DAILY losartan 25 mg tablet 25 mg PO DAILY aspirin [Adult Aspirin Regimen] 81 mg tablet,delayed release (DR/EC) 81 mg PO Q OTHER DAY simvastatin 40 mg tablet 40 mg PO DAILY losartan 50 mg tablet 50 mg PO DAILY Qty: 30 2RF doxycycline hyclate 100 mg capsule 100 mg PO BID 7 Days Qty: 14 0RF metoprolol succinate 50 MG tablet extended release 24 hr 50 mg PO DAILY rivaroxaban 15 MG tablet 15 mg PO DAILY Rx Instructions: must administer with evening meal Referrals Follow up/Referrals: Salvador Barrera MD [Primary Care Provider] - See instructions Activity Restrictions/Add. Instructions Additional Instructions/Restrictions: Kxzq-wqi-tilpsnw magnesium citrate one half bottle twice a day until you have a good bowel movement, or instead may use milk of magnesia 2 tablespoons twice a day until you have a good bowel movement. Sbdp-uxp-tmqflsf MiraLAX, 17 g daily for 5 days or until you have a good bowel movement. Start taking an iijj-qle-hrzqjjj fiber supplement daily. Your CAT scan showed thickening of the wall of your colon at the rectosigmoid junction. You need to have a colonoscopy to have this further evaluated. See your primary care provider to have this scheduled. Clinical Impressions Clinical Impression: Acute constipation, Mural thickening of sigmoid colon Instructions Patient Instructions: DI for Constipation, DI for Acute Abdominal Pain Discharge ED Provider: Luis Kline Adult [facility] General Chief complaint: Abdominal Pain Stated complaint: abd pain Time Seen by Provider: 02/01/22 09:02 Mode of Arrival: Ambulatory Source of Information: Patient Limitations: No Limitations Description of Symptoms (Recalled from ER Triage Doc. by RN): Pt c/o lower abd pain that is cramping like in nature. Pt reports pain began yesterday. Pt states for approx 6 weeks her Bowel habits have been abnormal, pt reports not having bowel movements as often as her normal. Pt reports stool is soft in nature but states having on a small amount at a time. Pt reports last BM was yesterday. History of Present Illness HPI narrative: States she has been having problems with her bowels for about a month. States that bowel movements were small and less frequent and are slimy although she will not describe it as diarrhea. No blood in her stool. Since yesterday she is having intermittent crampy abdominal pain across her mid abdomen. When pain occurs it is /10. No vomiting. No fever. No prior abdominal surgeries. Related Data Home Medications Medication Instructions Recorded Confirmed aspirin 81 mg tablet,delayed 81 mg PO Q OTHER DAY CAD 12/31/19 01/06/22 release (Adult Aspirin Regimen) digoxin 250 mcg (0.25 mg) tablet 125 mcg PO DAILY arrythmia 12/31/19 02/01/22 losartan 25 mg tablet 25 mg PO DAILY bp 12/31/19 01/06/22 verapamil 120 mg tablet,extended 120 mg PO DAILY BP 12/31/19 01/06/22 release alendronate 70 mg tablet 70 mg PO WEEKLY bone health 07/21/20 01/06/22 simvastatin 40 mg tablet 40 mg PO DAILY Cholesterol 12/04/20 02/01/22 metoprolol succinate 50 mg 50 mg PO DAILY HTN 04/01/21 01/06/22 tablet,extended release 24 hr rivaroxaban 15 mg tablet 15 mg PO DAILY Blood thinner 04/01/21 02/01/22 Previous Rx's Medication Instructions Recorded doxycycline hyclate 100 mg capsule 100 mg PO BID 7 days #14 caps 08/24/21 losartan 50 mg tablet 50 mg PO DAILY #30 tabs 01/06/22 Allergies Allergy/AdvReac Type Severity Reaction Status Date / Time No Known Allergies Allergy Verified 01/06/22 10:05 [facility] 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 (Updated 02/01/22 @ 10:47 by Luis Kline MD)
[2022-02-01 09:23] LABS: Basophils # 0.1 K/mm3 (0-0.2); Basophils % 0.7 % (0.1-2.0); Eosinophils # 0.1 K/mm3 (0.0-0.4); Eosinophils % 1.1 % (0.1-12.0); Hematocrit 41.7 % (37.0-47.0); Hemoglobin 13.5 g/dL (12.2-16.2); Lymphocytes # 2.4 K/mm3 (0.7-4.5); Lymphocytes % 25.7 % (10-50); Mean Corpuscular HGB Conc 32.3 g/dL (31.8-35.4); Mean Corpuscular Hemoglobin 31.5 pg (27.0-31.2); Mean Corpuscular Volume 97.4 fl (81-99); Mean Platelet Volume 6.8 fl (7.4-10.4); Monocytes # 0.6 K/mm3 (0.1-1.0); Monocytes % 6.8 % (1.7-9.3); Neutrophils # 6.1 K/mm3 (1.8-7.8); Neutrophils % 65.6 % (37.0-80.0); Platelet Count 374 K/mm3 (142-424); Red Blood Count 4.28 M/mm3 (4.20-5.40); Red Cell Distribution Width 13.9 % (11.5-17.5); White Blood Count 9.2 K/mm3 (4.8-10.8)
[2022-02-01 09:24] LABS: Chloride 98 mmol/L (98-107); Potassium 3.8 mmoL/L (3.5-5.1); Sodium 137 mmol/L (136-145)
[2022-02-01 09:26] LABS: Alanine Aminotransferase 35 U/L (12-78); Alkaline Phosphatase 63 U/L (38-126); Aspartate Amino Transferase 34 U/L (14-36); Blood Urea Nitrogen 19 mg/dl (7-17); Creatinine Clearance Estimated 41 mL/min (50-200); Estimated Glomerular Filt Rate 82 ml/min (>60); GFR (African American) 99 ML/MIN (>60)
[2022-02-01 09:27] LABS: Albumin Level 4.5 g/dl (3.5-5.0); Albumin/Globulin Ratio 1.6 (1.1-1.8); Anion Gap 14.8 mEq/L (5-15); Calcium 9.9 mg/dl (8.4-10.2); Carbon Dioxide 28 mmol/L (22.0-30.0); Globulin 2.9 g/dL (1.3-3.2); Glucose 107 mg/dl (74-100); Lipase 208 U/L (23-300); Total Protein,Serum 7.4 g/dl (6.3-8.2)
[2022-02-01 09:30] VITALS: BP 146/89; PULSE 70; O2SAT 96
--- NOTE | 2022-02-01 09:37 | PC.NURSE ---
rad notified of CT order and pt labs are back
--- NOTE | 2022-02-01 09:43 | PC.NURSE ---
pt taken to CT
[2022-02-01 09:44] LABS: Microscopic, Urine URINE MICROSCOPIC (MICROSCOPIC)
[2022-02-01 09:50] LABS: Appearance,Urine CLEAR (Clear); Bilirubin,Urine Negative (Negative); Blood, Urine 3+ (Negative); Color,Urine YELLOW (Yellow); Glucose,Urine (UA) Negative (Negative); Ketones,Urine Negative (Negative); Leukocyte Esterase,Urine Negative (Negative); Nitrate,Urine Negative (Negative); Protein,Urine Negative (Negative); Specific Gravity, Urine 1.015 (1.005-1.030); Urobilinogen,Urine 0.2 EU/dl (0.2)
[2022-02-01 10:00] VITALS: BP 137/77; PULSE 66; O2SAT 97
[2022-02-01 10:03] LABS: Bacteria,Urine Trace /lpf; RBC,Urine 20-50 #/hpf (0-3); Squamous Epithelial Cell,Urine Occasional #/hpf (0-5); WBC,Urine Occasional #/hpf (0-3)
[2022-02-01 10:30] VITALS: BP 134/76; PULSE 64; O2SAT 94
--- NOTE | 2022-02-01 10:35 | PC.NURSE ---
contacted rad to check on status of CT result, staff states will send down a preliminary report
--- NOTE | 2022-02-01 10:37 | PC.NURSE ---
ER at discussing CT results
[2022-02-01 11:05] VITALS: BP 141/79; PULSE 67; RESP 16; TEMP 36.6; O2SAT 97
== END 2022-02-01 11:05 | disposition home or self-care (01) ==
PROVIDERS: Emergency Provider Emergency Medicine; PCP Family Medicine
DX: K59.09 Other constipation (principal); I10 Essential (primary) hypertension; I48.91 Unspecified atrial fibrillation; E78.00 Pure hypercholesterolemia, unspecified; Z79.01 Long term (current) use of anticoagulants; Z79.82 Long term (current) use of aspirin; Z79.899 Other long term (current) drug therapy
CPT/HCPCS: 74177; 80053; 80162; 81001; 83690; 85025; 99285; Q9967

== ENCOUNTER 2022-02-12 08:42 | Emergency (ER) | payer MEDICARE, MEDICAID, SELFPAY ==
--- NOTE | 2022-02-12 08:51 | XR_ITS ---
PROCEDURE INFORMATION: Exam: XR Chest Exam date and time: 02/12/2022 8:47 AM Age: 76 years old Clinical indication: Shortness of breath; Additional info: SOB TECHNIQUE: Imaging protocol: Radiologic exam of the chest. Views: 2 views. COMPARISON: CR XR CHEST 2V 01/06/2022 10:28 AM FINDINGS: Lungs: Unremarkable. No consolidation. Pleural spaces: Unremarkable. No pleural effusion. No pneumothorax. Heart/Mediastinum: Unremarkable. No cardiomegaly. Bones/joints: Degenerative changes in the glenohumeral joints IMPRESSION: No acute process
[2022-02-12 10:01] VITALS: BP 120/84; PULSE 105; RESP 16; TEMP 36.8; O2SAT 98; BMI 24.6
--- NOTE | 2022-02-12 10:01 | EXP.UTC ---
Discharge Plan Disposition Patient Disposition: Home, Self-Care Condition: Good Prescriptions Prescriptions: New benzonatate [benzonatate] 100 mg capsule 100 mg PO TIDP PRN (Reason: Cough) Qty: 30 0RF methylprednisolone 4 mg Tablets,Dose Pack 4 mg PO DIRECTED Qty: 21 0RF guaifenesin [Mucinex] 600 mg tablet extended release 12hr 600 - 1,200 mg PO BIDP PRN (Reason: Congestion) Qty: 30 0RF cefdinir 300 mg capsule 300 mg PO BID Qty: 20 0RF promethazine-DM 6.25-15 mg/5 mL Syrup 5 ml PO Q6H PRN (Reason: Cough) Qty: 240 0RF No Action alendronate 70 mg tablet 70 mg PO WEEKLY digoxin 250 mcg (0.25 mg) tablet 125 mcg PO DAILY verapamil 120 mg tablet extended release 120 mg PO DAILY losartan 25 mg tablet 25 mg PO DAILY aspirin [Adult Aspirin Regimen] 81 mg tablet,delayed release (DR/EC) 81 mg PO Q OTHER DAY simvastatin 40 mg tablet 40 mg PO DAILY losartan 50 mg tablet 50 mg PO DAILY Qty: 30 2RF doxycycline hyclate 100 mg capsule 100 mg PO BID 7 Days Qty: 14 0RF metoprolol succinate 50 MG tablet extended release 24 hr 50 mg PO DAILY rivaroxaban 15 MG tablet 15 mg PO DAILY Rx Instructions: must administer with evening meal Referrals Follow up/Referrals: Salvador Barrera MD [Primary Care Provider] - See instructions Activity Restrictions/Add. Instructions Additional Instructions/Restrictions: Drink plenty of fluids. Take tylenol or ibuprofen for pain or fever. Take the medications as directed. Follow up with your regular doctor. GO TO THE ER FOR ANY WORSENING SYMPTOMS Clinical Impressions Clinical Impression: Acute bronchitis Instructions Patient Instructions: DI for Acute Bronchitis Discharge ED Provider: Ananth Mtz [facility] [place] [facility] [place] General Stated complaint: SOA Time Seen by Provider: 02/12/22 10:01 History of Present Illness Provider Complaint: She states that for the past 1 week she has had productive cough with yellowish sputum and sinus congestion. Related Data Home Medications Medication Instructions Recorded Confirmed aspirin 81 mg tablet,delayed 81 mg PO Q OTHER DAY CAD 12/31/19 01/06/22 release (Adult Aspirin Regimen) digoxin 250 mcg (0.25 mg) tablet 125 mcg PO DAILY arrythmia 12/31/19 02/01/22 losartan 25 mg tablet 25 mg PO DAILY bp 12/31/19 01/06/22 verapamil 120 mg tablet,extended 120 mg PO DAILY BP 12/31/19 01/06/22 release alendronate 70 mg tablet 70 mg PO WEEKLY bone health 07/21/20 01/06/22 simvastatin 40 mg tablet 40 mg PO DAILY Cholesterol 12/04/20 02/01/22 metoprolol succinate 50 mg 50 mg PO DAILY HTN 04/01/21 01/06/22 tablet,extended release 24 hr rivaroxaban 15 mg tablet 15 mg PO DAILY Blood thinner 04/01/21 02/01/22 Previous Rx's Medication Instructions Recorded doxycycline hyclate 100 mg capsule 100 mg PO BID 7 days #14 caps 08/24/21 losartan 50 mg tablet 50 mg PO DAILY #30 tabs 01/06/22 benzonatate 100 mg capsule 100 mg PO TIDP PRN Cough #30 caps 02/12/22 cefdinir 300 mg capsule 300 mg PO BID #20 caps 02/12/22 guaifenesin 600 mg tablet, 600 - 1,200 mg PO BIDP PRN 02/12/22 extended release 12 hr (Mucinex) Congestion #30 tabs methylprednisolone 4 mg tablets in 4 mg PO DIRECTED #21 tabs 02/12/22 a dose pack promethazine-DM 6.25 mg-15 mg/5 mL 5 ml PO Q6H PRN Cough #240 mL 02/12/22 oral syrup Allergies Allergy/AdvReac Type Severity Reaction Status Date / Time No Known Allergies Allergy Verified 02/12/22 10:03 [facility] Disclaimer: The information contained in this section may have been updated after the patient was seen, as this information can be updated by other users. 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 Afib High cholesterol Hypertension Social History Smoking Status: Never smoker alcohol intake: current counseling provided: none substan
[2022-02-12 10:58] VITALS: BP 120/84; PULSE 105; RESP 16; TEMP 36.8
== END 2022-02-12 10:59 | disposition home or self-care (01) ==
PROVIDERS: Emergency Provider Nurse Practitioner Family; PCP Family Medicine
DX: R06.02 Shortness of breath (principal); J02.9 Acute pharyngitis, unspecified; R05.9 Cough, unspecified; R09.81 Nasal congestion; I10 Essential (primary) hypertension; I48.91 Unspecified atrial fibrillation; E78.00 Pure hypercholesterolemia, unspecified; Z79.01 Long term (current) use of anticoagulants; Z79.52 Long term (current) use of systemic steroids; Z79.82 Long term (current) use of aspirin; Z79.899 Other long term (current) drug therapy
CPT/HCPCS: 71046; 99213; G0463

== ENCOUNTER → 2022-05-04 09:41 | Outpatient (CLI) | payer MEDICARE, MEDICAID, SELFPAY ==
[2022-05-04 10:30] VITALS: PULSE 85; PULSE 88
== END ==
PROVIDERS: PCP Family Medicine; Visit Provider Physician Assistant
DX: J44.9 Chronic obstructive pulmonary disease, unspecified (principal)
CPT/HCPCS: 94060; 94640; 94727; 94729

== ENCOUNTER 2022-06-09 08:08 | Emergency (ER) | payer MEDICARE, MEDICAID, SELFPAY ==
--- NOTE | 2022-06-09 08:17 | EXP.UTC ---
Discharge Plan Disposition Patient Disposition: Home, Self-Care Condition: Good Prescriptions Prescriptions: New prednisone 10 mg tablet 10 mg PO BID 4 Days Qty: 8 0RF No Action alendronate 70 mg tablet 70 mg PO WEEKLY digoxin 250 mcg (0.25 mg) tablet 125 mcg PO DAILY verapamil 120 mg tablet extended release 120 mg PO DAILY losartan 25 mg tablet 25 mg PO DAILY aspirin [Adult Aspirin Regimen] 81 mg tablet,delayed release (DR/EC) 81 mg PO Q OTHER DAY simvastatin 40 mg tablet 40 mg PO DAILY doxycycline hyclate 100 mg capsule 100 mg PO BID 7 Days Qty: 14 0RF losartan 50 mg tablet See Rx Instructions .ROUTE .COMPLEX Qty: 90 0RF Dose Instruction: Take 1 tablet by mouth once daily Rx Instructions: Take 1 tablet by mouth once daily metoprolol succinate 50 MG tablet extended release 24 hr 50 mg PO DAILY rivaroxaban 15 MG tablet 15 mg PO DAILY Rx Instructions: must administer with evening meal benzonatate [benzonatate] 100 mg capsule 100 mg PO TIDP PRN (Reason: Cough) Qty: 30 0RF methylprednisolone 4 mg Tablets,Dose Pack 4 mg PO DIRECTED Qty: 21 0RF guaifenesin [Mucinex] 600 mg tablet extended release 12hr 600 - 1,200 mg PO BIDP PRN (Reason: Congestion) Qty: 30 0RF cefdinir 300 mg capsule 300 mg PO BID Qty: 20 0RF promethazine-DM 6.25-15 mg/5 mL Syrup 5 ml PO Q6H PRN (Reason: Cough) Qty: 240 0RF Referrals Follow up/Referrals: Salvador Barrera MD [Primary Care Provider] - See instructions Activity Restrictions/Add. Instructions Additional Instructions/Restrictions: Go home and rest. It would be best if you rested tomorrow too. No heavy lifting. No twisting. Take the oral medications as directed. Follow up with your regular doctor. GO TO THE ER FOR ANY WORSENING SYMPTOMS OR CONCERN, ESPECIALLY BOWEL OR BLADDER ISSUES, SADDLE AREA NUMBNESS, FEVER, ETC Clinical Impressions Clinical Impression: Fall, Low back pain Instructions Patient Instructions: Low Back Pain, DI for Low Back Pain Discharge ED Provider: Ananth Mtz [facility] [place] General Stated complaint: AO 06/08 back pain Time Seen by Provider: 06/09/22 08:16 History of Present Illness Provider Complaint: She was tripped by her dog's leash yesterday. She fell backwards and came down on her bottom and lower back. She c/o low back pain and coccyx pain. She denies any other injury or complaint. Related Data Home Medications Medication Instructions Recorded Confirmed aspirin 81 mg tablet,delayed 81 mg PO Q OTHER DAY CAD 12/31/19 01/06/22 release (Adult Aspirin Regimen) digoxin 250 mcg (0.25 mg) tablet 125 mcg PO DAILY arrythmia 12/31/19 02/01/22 losartan 25 mg tablet 25 mg PO DAILY bp 12/31/19 01/06/22 verapamil 120 mg tablet,extended 120 mg PO DAILY BP 12/31/19 01/06/22 release alendronate 70 mg tablet 70 mg PO WEEKLY bone health 07/21/20 01/06/22 simvastatin 40 mg tablet 40 mg PO DAILY Cholesterol 12/04/20 02/01/22 metoprolol succinate 50 mg 50 mg PO DAILY HTN 04/01/21 01/06/22 tablet,extended release 24 hr rivaroxaban 15 mg tablet 15 mg PO DAILY Blood thinner 04/01/21 02/01/22 Previous Rx's Medication Instructions Recorded doxycycline hyclate 100 mg capsule 100 mg PO BID 7 days #14 caps 08/24/21 benzonatate 100 mg capsule 100 mg PO TIDP PRN Cough #30 caps 02/12/22 cefdinir 300 mg capsule 300 mg PO BID #20 caps 02/12/22 guaifenesin 600 mg tablet, 600 - 1,200 mg PO BIDP PRN 02/12/22 extended release 12 hr (Mucinex) Congestion #30 tabs methylprednisolone 4 mg tablets in 4 mg PO DIRECTED #21 tabs 02/12/22 a dose pack promethazine-DM 6.25 mg-15 mg/5 mL 5 ml PO Q6H PRN Cough #240 mL 02/12/22 oral syrup losartan 50 mg tablet See Rx Instructions .Route 04/28/22 .COMPLEX #90 tabs prednisone 10 mg tablet 10 mg PO BID 4 days #8 tabs 06/09/22 Allergies Allergy/AdvReac Type Severity Reaction Status
--- NOTE | 2022-06-09 08:27 | XR_ITS ---
FINAL REPORT CLINICAL HISTORY: Acute sacral/coccygeal pain, fall yesterday, right side pain COMPARISON: None FINDINGS: Three views of the sacrum and coccyx were obtained. There is no prior exam for comparison. There is no acute fracture or other acute osseous abnormality. The SI joints are symmetric bilaterally. There is mild SI joint degenerative disease. The sacrococcygeal articulation appears within normal limits. No acute soft tissue abnormality is present. IMPRESSION: Degenerative changes with no acute abnormality of the sacrum or coccyx. Reviewed, Interpreted and Dictated by Tamara Guy MD Transcribed by Gale Swenson Authenticated and [facility]
--- NOTE | 2022-06-09 08:27 | XR_ITS ---
FINAL REPORT CLINICAL HISTORY: fall yesterday, right sided low back pain COMPARISON: 03/05/2021 FINDINGS: AP and lateral views of the lumbar spine were obtained. There is no acute fracture. There is minimal grade 1 anterior spondylolisthesis of L4 on L5 which is unchanged. Alignment is otherwise normal. There is multilevel degenerative disc disease most pronounced at L4-5 which is stable. The paraspinal soft tissues are normal. IMPRESSION: Multilevel degenerative disc disease as above. Reviewed, Interpreted and Dictated by Tamara Guy MD Transcribed by Gale Swenson Authenticated and . [facility]
--- NOTE | 2022-06-09 08:27 | XR_ITS ---
FINAL REPORT CLINICAL HISTORY: fall yesterday , right-sided pelvic pain COMPARISON: None FINDINGS: SINGLE VIEW PELVIS: A single view of the pelvis was obtained. There is no acute fracture or dislocation. Mild degenerative disease in the hips bilaterally. There is a calcification in the right pelvis, likely phleboliths Soft tissues are unremarkable. IMPRESSION: Degenerative change with no acute bony abnormality. Reviewed, Interpreted and Dictated by Tamara Guy MD Transcribed by Gale Swenson Authenticated and [facility]
[2022-06-09 08:40] VITALS: BP 178/87; PULSE 70; RESP 16; TEMP 36.8; O2SAT 99; BMI 24.6
[2022-06-09 10:14] VITALS: BP 178/87; PULSE 70; RESP 16; TEMP 36.8
== END 2022-06-09 10:21 | disposition home or self-care (01) ==
PROVIDERS: Emergency Provider Nurse Practitioner Family; PCP Family Medicine
DX: M54.50 Low back pain, unspecified (principal); W01.0XXA Fall on same level from slipping, tripping and stumbling without subsequent striking against object, initial encounter
CPT/HCPCS: 72100; 72170; 72220; 99212; 99214; G0463

== ENCOUNTER 2022-07-09 08:09 | Emergency (ER) | payer MEDICARE, MEDICAID, SELFPAY ==
[2022-07-09 08:22] VITALS: BP 117/87; PULSE 80; RESP 18; TEMP 36.8; O2SAT 97; BMI 25.0
--- NOTE | 2022-07-09 08:34 | EXP.UTC ---
Discharge Plan Disposition Patient Disposition: Home, Self-Care Condition: Good Prescriptions Prescriptions: New cefdinir 300 mg capsule 300 mg PO BID Qty: 20 0RF No Action alendronate 70 mg tablet 70 mg PO WEEKLY digoxin 250 mcg (0.25 mg) tablet 125 mcg PO DAILY verapamil 120 mg tablet extended release 120 mg PO DAILY losartan 25 mg tablet 25 mg PO DAILY aspirin [Adult Aspirin Regimen] 81 mg tablet,delayed release (DR/EC) 81 mg PO Q OTHER DAY simvastatin 40 mg tablet 40 mg PO DAILY fluticasone furoate-vilanterol [Breo Ellipta] 100-25 mcg/dose blister with device 1 inh inhalation DAILY cyclobenzaprine 5 mg tablet 5 mg PO .prn albuterol sulfate 90 mcg/actuation HFA aerosol inhaler 2 inh inhalation Q6H PRN (Reason: shortness of breath or wheezing) 90 Days Qty: 8.5 1RF losartan 50 mg tablet See Rx Instructions .ROUTE .COMPLEX Qty: 90 0RF Dose Instruction: Take 1 tablet by mouth once daily Rx Instructions: Take 1 tablet by mouth once daily metoprolol succinate 50 MG tablet extended release 24 hr 50 mg PO DAILY rivaroxaban 15 MG tablet 15 mg PO DAILY Rx Instructions: must administer with evening meal Referrals Follow up/Referrals: Salvador Barrera MD [Primary Care Provider] - See instructions Activity Restrictions/Add. Instructions Additional Instructions/Restrictions: Start antibiotic today. Be sure to complete entire prescription even if feeling better Tylenol and ibuprofen as needed for pain or fever Humidifier/vaporizer/hot steamy shower Follow-up with primary care tomorrow. Follow-up immediately in the ER of the [facility] for new or worsening symptoms or no noticeable improvement over the next 48-72 hours. Stop smoking Clinical Impressions Clinical Impression: Acute bronchitis Instructions Patient Instructions: Acute Bronchitis Discharge ED Provider: Neyda ([facility])Anuja [facility] [place] HPI General Stated complaint: cough, lung pain, congestion Mode of Arrival: Ambulatory Source of Information: Patient Limitations: No Limitations Time Seen by Provider: 07/09/22 08:34 Description of Symptoms (Recalled from Triage Doc. by RN): pt c/o a productive cough with dark mucous since yesterday. pt thinks she has pneumonia. HEENT Symptoms (Recalled from RN notes): No Resp Symptoms (Recalled from RN notes): Yes Skin Symptoms (Recalled from RN notes): No MS Symptoms (Recalled from RN notes): No Functional Status (Recalled from RN notes): wnl History of Present Illness Provider Complaint: 77 yr old female presents for chest congestion and coughing up thick green mucus. pt states it all started on and she was managing with otc meds and home remedies but last pm the sputum changed colors and she felt pain in rt lung area. pt states she has had pneumonia in the past and this feels like what she had then. Related Data Home Medications Medication Instructions Recorded Confirmed aspirin 81 mg tablet,delayed 81 mg PO Q OTHER DAY CAD 12/31/19 07/05/22 release (Adult Aspirin Regimen) digoxin 250 mcg (0.25 mg) tablet 125 mcg PO DAILY arrythmia 12/31/19 07/05/22 losartan 25 mg tablet 25 mg PO DAILY bp 12/31/19 07/05/22 verapamil 120 mg tablet,extended 120 mg PO DAILY BP 12/31/19 07/05/22 release alendronate 70 mg tablet 70 mg PO WEEKLY bone health 07/21/20 07/05/22 simvastatin 40 mg tablet 40 mg PO DAILY Cholesterol 12/04/20 07/05/22 metoprolol succinate 50 mg 50 mg PO DAILY HTN 04/01/21 07/05/22 tablet,extended release 24 hr rivaroxaban 15 mg tablet 15 mg PO DAILY Blood thinner 04/01/21 07/05/22 cyclobenzaprine 5 mg tablet 5 mg PO .prn 07/04/22 07/05/22 fluticasone furoate 100 1 inh inhalation DAILY 07/04/22 07/05/22 mcg-vilanterol 25 mcg/dose inhalation powder (Breo Ellipta) Previous Rx's Medication Instructions Recorded losartan 50 mg tablet See Rx Instructions .Route 04/28/22 .COMPLEX #90 tabs
[2022-07-09 08:49] VITALS: BP 117/87; PULSE 80; RESP 18; TEMP 36.8
== END 2022-07-09 08:51 | disposition home or self-care (01) ==
PROVIDERS: Emergency Provider Nurse Practitioner Family; PCP Family Medicine
DX: J20.9 Acute bronchitis, unspecified (principal); R10.9 Unspecified abdominal pain; I10 Essential (primary) hypertension; E78.5 Hyperlipidemia, unspecified
CPT/HCPCS: 99212; 99214; G0463

== ENCOUNTER → 2022-07-12 11:58 | Outpatient (CLI) | payer MEDICARE, MEDICAID, SELFPAY ==
--- NOTE | 2022-07-12 12:24 | XR_ITS ---
FINAL REPORT CLINICAL HISTORY: CHEST WALL PAIN FINDINGS: RIGHT RIB SERIES 4 views of the right ribs show no fractures. There is no pneumothorax or pleural fluid collection. IMPRESSION: Negative right rib series. No pneumothorax. Reviewed, Interpreted and Dictated by Riley Marcelo MD Transcribed by Carol Devine Authenticated and [facility]
--- NOTE | 2022-07-12 12:24 | XR_ITS ---
FINAL REPORT TECHNIQUE: Chest PA & Lateral CLINICAL HISTORY: CHEST WALL PAIN COMPARISON: 02/12/2022 FINDINGS: 2 views of the chest were performed. The heart size is normal. The mediastinum is within normal limits. There is no acute cardiopulmonary process. There are no pleural effusions. There is no pneumothorax. The bony thorax appears intact. IMPRESSION: No acute cardiopulmonary process. Reviewed, Interpreted and Dictated by Riley Marcelo MD Transcribed by Carol Devine Authenticated and [facility]
== END ==
LOC: LAB 12:00 → RAD 12:17
PROVIDERS: PCP Family Medicine; Visit Provider Nurse Practitioner Family
DX: R07.89 Other chest pain (principal)
CPT/HCPCS: 71046; 71111

== ENCOUNTER 2022-08-05 14:58 | Outpatient (RCR) | payer MEDICARE, MEDICAID, SELFPAY ==
--- NOTE | 2022-08-05 15:55 | HMH.OTOPEV ---
OT Inpatient Evaluation Rehab OT Outpatient Eval Start: 08/05/22 15:38 Freq: Status: Active Protocol: Document 08/05/22 15:38 LUCIANFELICE (Rec: 08/05/22 15:53 LUCIANFELICE [id number]) E-signed By Kya Rice, OT Outpatient Therapy Subjective History Subjective History 77 year old female referred to skilled OP OT services for R trapezius muscle spasm pain. Patient stated to have a fall involving her dog knocking her down and landing on her shoulder. Patient demonstrates B UE AROM of shld WFL and good B UE shld strength. Chief Complaint Pain Symptom Type Ache Symptoms Relieved By Prescription Meds Symptoms Aggravated By Physical Activity Prior Functional Limitations None Current Functional Limitations Sleeping Symptom Description Constant and Continuous Level of pain today (0-10) 9 Pain scale - at its best (0-10) 9 Pain scale - at its worst (0-10) 9 Shoulder/Elbow Eval Shoulder Objective Measurements Shoulder ROM Right Shoulder Abduction Active Range of 150 Motion (degrees) Shoulder Flexion Active Range of Motion 150 (degrees) Query Text: Shoulder External Rotation Active Range 80 of Motion (degrees) Shoulder Internal Rotation Active Range 70 of Motion (degrees) pain with active ROM shoulder exam right standard Shoulder MMT Shoulder Abduction Strength Grade 3- Fair- Shoulder Extension Strength Grade 3- Fair- Shoulder Flexion Strength Grade 3- Fair- Shoulder Horizontal Abduction Strength 3- Fair- Grade Shoulder Horizontal Adduction Strength 3- Fair- Grade Infraspinatus/Teres Minor Strength Grade 3- Fair- Shoulder External Rotation Strength 3- Fair- Grade Shoulder Internal Rotation Strength 3- Fair- Grade Shoulder Special Tests impingement sign present shoulder exam right standard Shoulder Clunk Test Negative Right Shoulder Empty Can (Supraspinatus) Test Negative Right Elbow Objective Measurements OT Outpatient Assessment Impairments Problems/Impairments Subjective C/O Pain Prognosis Rehab Potential Good Clinical Impression Consistent with Diagnosis Yes Short Term Goals Number of Weeks 2 Increase Strength Yes: Improve R UE shld strength to 3+ to 4-/5
--- NOTE | 2022-09-05 10:14 | MM_ITS ---
PROCEDURE INFORMATION: Exam: MG Bilateral Screening 3D Mammography Exam date and time: 09/05/2022 10:32 AM Age: 77 years old Clinical indication: Screening. No family history of breast cancer. TECHNIQUE: Imaging protocol: Bilateral Screening tomosynthesis and 2D mammography including computer-aided detection (CAD) when performed. COMPARISON: MG SCBI MM Dig screening mamm BI w/CAD 12/14/2017 9:45 AM FINDINGS: MAMMOGRAPHY: Breast composition: The breasts are heterogeneously dense, which may obscure small masses. Mass: None. Architectural distortion: None. Calcifications: No suspicious calcifications. Asymmetric density: None. Skin thickening: None. Axillary adenopathy: None. IMPRESSION: No mammographic evidence of malignancy. Annual screening is recommended unless otherwise clinically indicated. ASSESSMENT: BI-RADS Category 1: Negative
== END 2022-08-05 14:59 | disposition home or self-care (01) ==
LOC: OT 14:58
PROVIDERS: PCP Family Medicine; Visit Provider Physician Assistant
DX: M62.838 Other muscle spasm (principal)
CPT/HCPCS: 77063; 77067; 97165

== ENCOUNTER → 2022-09-05 08:15 | Outpatient (CLI) | payer MEDICARE, MEDICAID, SELFPAY ==
--- NOTE | 2022-09-05 08:33 | CT_ITS ---
FINAL REPORT TECHNIQUE: Then section axial CT images of the chest were obtained with contrast. Three-D reformatted images were also obtained.This study was performed with techniques to keep radiation doses as low as reasonably achievable (ALARA). Individualized dose reduction techniques using automated exposure control or adjustment of mA and/or kV according to the patient''s size were employed. CLINICAL HISTORY: Shortness of breath COMPARISON: None FINDINGS: There is no evidence of pulmonary embolism. There is no evidence of thoracic aortic aneurysm or dissection. There is no evidence of mediastinal or hilar mass or adenopathy. There is no evidence of pulmonary mass or suspicious nodule. No localized inflammatory process is seen within the lungs. Mild scarring is noted. Limited images of the upper abdomen demonstrate bilateral renal cysts. IMPRESSION: No evidence of pulmonary embolism. No mass or localized inflammatory process. Reviewed, Interpreted and Dictated by Tommy Recinos III, MD Transcribed by Gale Swenson Authenticated and [facility]
== END ==
LOC: RAD 08:17
PROVIDERS: PCP Family Medicine; Visit Provider Internal Medicine Pulmonary Disease
DX: E78.2 Mixed hyperlipidemia (principal); I10 Essential (primary) hypertension; I34.0 Nonrheumatic mitral (valve) insufficiency; I35.1 Nonrheumatic aortic (valve) insufficiency; I48.0 Paroxysmal atrial fibrillation; R01.1 Cardiac murmur, unspecified; R06.09 Other forms of dyspnea; R07.9 Chest pain, unspecified
CPT/HCPCS: 71275; 77063; 77067; 93306; Q9967

== ENCOUNTER → 2022-09-26 10:34 | Outpatient (CLI) | payer MEDICARE, MEDICAID, SELFPAY | PROVIDERS: PCP Physician Assistant; Visit Provider Physician Assistant | DX: R00.2 Palpitations (principal) | CPT/HCPCS: 93225; 93226 ==

== ENCOUNTER → 2022-10-10 12:23 | Outpatient (CLI) | payer MEDICARE, MEDICAID, SELFPAY | PROVIDERS: PCP Family Medicine; Visit Provider Physician Assistant | DX: R00.2 Palpitations (principal) | CPT/HCPCS: 93270 ==

== ENCOUNTER → 2023-01-11 09:10 | Outpatient (CLI) | payer MEDICARE, MEDICAID, SELFPAY ==
--- NOTE | 2023-01-11 09:17 | XR_ITS ---
FINAL REPORT CLINICAL HISTORY: Osteoporosis screening COMPARISON: None FINDINGS: Using L1-4, the bone mineral density of the spine is 0.914 g/cm2, corresponding to T-score of -1.2, consistent with low bone density. Using the left hip, the bone mineral density of the femoral neck is 0.621 g/cm2, corresponding to a T-score of -2.1, consistent with low bone density. Using the right hip, the bone mineral density of the femoral neck is 0.620 g/cm2, corresponding to a T-score of -2.1, consistent with low bone density. FRAX 10 year fracture risk is 3.6% for a hip fracture and 14% for a major osteoporotic fracture. NOTE: T-score: Standard deviation compared with peak bone mass of young adult mean. *Following the recommendations of the International Society of Bone densitometry, classification of hip BMD is based on the lower of two T-scores; total hip or femoral neck. IMPRESSION: Diminished bone mineral density consistent with low bone density. Reviewed, Interpreted and Dictated by Tommy Recinos III, MD Transcribed by Gale Swenson Authenticated and [facility]
== END ==
PROVIDERS: PCP Family Medicine; Visit Provider Physician Assistant
DX: M85.89 Other specified disorders of bone density and structure, multiple sites (principal)
CPT/HCPCS: 77080

== ENCOUNTER 2023-06-08 09:19 | Outpatient (CLI) | payer MEDICARE, MEDICAID, SELFPAY ==
--- NOTE | 2023-06-08 09:21 | US_ITS ---
PROCEDURE: US TRANSVAGINAL CLINICAL INDICATION: Post menopausal Bleeding COMPARISON: US US TRANSVAGINAL from 12/10/2020 FINDINGS: Transvaginal sonographic images of the pelvis were obtained. UTERUS: 5.3cm x 4.4cmx 3.2cm retroverted and retroflexed with a combined endometrial thickness of 2.9mm. There are degenerative calcifications throughout the uterus. LEFT OVARY: 1.3cmx1.0cmx1.1cm with a volume of 0.8ml. The left ovary appears atrophic. RIGHT OVARY: 2.4cmx 1.4cmx1.3cm with a volume of 2.5ml. The right ovary appears atrophic. Both ovaries are seen and appear normal. Doppler flow to both ovaries are seen. There is no fluid in the cul-de-sac. IMPRESSION: 1. Retroverted, retroflexed uterus with degenerative calcifications. The endometrium is thin. 2. Both ovaries are seen and appear atrophic. 3. No fluid in the cul-de-sac. Dictated by: Enrique Velez MD 06/09/2023 07:44 Enrique Velez MD in [place] 06/09/2023 07:44
== END 2023-06-08 23:59 ==
PROVIDERS: PCP Family Medicine; Visit Provider Obstetrics & Gynecology
DX: N95.0 Postmenopausal bleeding (principal)
CPT/HCPCS: 76830

== ENCOUNTER 2023-06-30 11:42 | Outpatient (CLI) | payer MEDICARE, MEDICAID, SELFPAY ==
--- NOTE | 2023-06-30 11:55 | XR_ITS ---
FINAL REPORT CLINICAL HISTORY: LT KNEE INJURY COMPARISON: None FINDINGS: LEFT KNEE 3 views of the left knee were obtained. There is no acute fracture or dislocation. There is mild narrowing of the medial compartment joint space. There is mild narrowing of the patellofemoral joint space. There is no evidence of joint effusion. Soft tissues are unremarkable. IMPRESSION: Degenerative changes without acute bony abnormality. Reviewed, Interpreted and Dictated by Riley Marcelo MD Transcribed by Gale Swenson Authenticated and [facility]
== END 2023-06-30 23:59 ==
LOC: RAD 11:43
PROVIDERS: PCP Physician Assistant; Visit Provider Physician Assistant
DX: M25.562 Pain in left knee (principal); S89.92XA Unspecified injury of left lower leg, initial encounter
CPT/HCPCS: 73562

== ENCOUNTER 2023-07-12 11:43 | Outpatient (CLI) | payer MEDICARE, MEDICAID, SELFPAY | END 2023-07-12 23:59 | disposition home or self-care (01) | LOC: LAB.DROPOF 07-17 11:44 | PROVIDERS: PCP Obstetrics & Gynecology; Visit Provider Obstetrics & Gynecology | DX: R32 Unspecified urinary incontinence (principal) | CPT/HCPCS: 87086 ==

== ENCOUNTER 2023-07-27 09:00 | Outpatient (CLI) | payer MEDICARE, MEDICAID, SELFPAY ==
--- NOTE | 2023-07-27 09:05 | MR_ITS ---
FINAL REPORT CLINICAL HISTORY: INJURY OF LEFT KNEE swelling and pain after fall FINDINGS: Multiplanar MR imaging of the left knee was performed without contrast. There is medial meniscal degeneration. There is a tear of the posterior horn. There is also a tear of the posterior root. There is medial subluxation of the body of the medial meniscus. There is a focal tear of the body of the lateral meniscus. The anterior and posterior cruciate ligaments are intact. The medial collateral ligament and lateral ligamentous complex are intact. The patellar and quadriceps tendons are intact. There is no evidence of fracture. Moderate degenerative changes are noted. There is mild chondromalacia, worse involving the patella. A small joint effusion is seen. The musculature is intact. A prepatellar fluid collection measures up to 4.2 cm in height and may represent prepatellar bursitis or chronic hemorrhage. IMPRESSION: Medial meniscal degeneration with a tear of the posterior horn, a tear of the posterior root, and medial subluxation of the body of the medial meniscus. Focal tear of the body of the lateral meniscus. Mild chondromalacia worse involving the patella. Prepatellar fluid collection may represent prepatellar bursitis or chronic hemorrhage. Reviewed, Interpreted and Dictated by Tommy Recinos III, MD Transcribed by Carol Devine Authenticated and [facility]
== END 2023-07-27 23:59 | disposition home or self-care (01) ==
LOC: RAD 09:01
PROVIDERS: PCP Physician Assistant; Visit Provider Physician Assistant
DX: M25.562 Pain in left knee (principal); S89.92XD Unspecified injury of left lower leg, subsequent encounter
CPT/HCPCS: 73721

== ENCOUNTER 2023-08-15 11:46 | Outpatient (CLI) | payer MEDICARE, MEDICAID, SELFPAY ==
--- NOTE | 2023-08-15 11:52 | XR_ITS ---
FINAL REPORT CLINICAL HISTORY: ACUTE PAIN OF RT KNEE FINDINGS: Right knee Four views were obtained. There is no acute fracture or dislocation. There are mild and moderate degenerative changes, worst involving the patellofemoral compartment. No soft tissue abnormality is identified. IMPRESSION: Degenerative changes as above. Reviewed, Interpreted and Dictated by Tommy Recinos III, MD Transcribed by Mirta Diaz Authenticated and [facility]
== END 2023-08-15 23:59 | disposition home or self-care (01) ==
LOC: RAD 11:47
PROVIDERS: PCP Family Medicine; Visit Provider Physician Assistant
DX: M25.561 Pain in right knee (principal)
CPT/HCPCS: 73562

== ENCOUNTER 2024-03-09 12:44 | Observation (INO) | payer MEDICARE, MEDICAID, SELFPAY ==
[2024-03-09] VITALS (10 sets, daily range): BP systolic 101–160; BP diastolic 65–79; PULSE 67–82; RESP 16–18; TEMP 36.8–37.1; O2SAT 98–100; BMI 24.6
--- NOTE | 2024-03-09 12:51 | ECG_ITS ---
APPROVED REPORT Exam: Resting ECG HR:73 bpm ECG Measurements Heart Rate 73 AXES NV 171 P 58 QRSd 125 QRS 73 QT 392 T 49 QTc 417 Conclusion SINUS RHYTHM RIGHT BUNDLE BRANCH BLOCK [120+ ms QRS DURATION, UPRIGHT V1, 40+ ms S IN I/aVL/V4/V5/V6] ABNORMAL ECG Electronically signed by : MARY BOSTON, 03/12/2024 07:05:46
--- NOTE | 2024-03-09 12:59 | XR_ITS ---
PROCEDURE INFORMATION: Exam: XR Chest Exam date and time: 03/09/2024 12:56 PM Age: 78 years old Clinical indication: Shortness of breath; Additional info: SOA TECHNIQUE: Imaging protocol: Radiologic exam of the chest. Views: 2 views. PA and Lateral COMPARISON: CT ANGIO CHEST PE PROTOCOL 09/05/2022 9:03 AM FINDINGS: Tubes, catheters and devices: None. Lungs: Pulmonary emphysema identified within the lungs. Linear density identified within bilateral lower lungs. The lungs appear otherwise clear. Pleural spaces: No pleural effusion. No pneumothorax. Heart/Mediastinum: Coronary arterial calcifications are demonstrated. Vasculature: Tortuous and ectatic aorta is demonstrated. Mild atherosclerotic calcification demonstrated within the aorta. Bones/joints: Diffusely decreased bone density. Moderate to severe generalized bony degenerative changes. IMPRESSION: 1. Pulmonary emphysema. 2. Linear bilateral lower chest pulmonary atelectasis, or scarring. 3. Chronic findings.
--- NOTE | 2024-03-09 13:03 | HMH.EDGENADL ---
Discharge Plan Disposition Patient Disposition: Still a Patient Clinical Impressions Clinical Impression: Anemia Qualifiers: Anemia type: other cause Other causes of anemia: acute posthemorrhagic Qualified Code(s): D62 - Acute posthemorrhagic anemia Discharge ED Provider: Zaid Garcia General Adult HPI <Anuja Basiliocitlali ([facility]), [employer] - Last Filed: 03/09/24 14:02> General Chief complaint: Shortness of Breath/Dyspnea Stated complaint: SOA Time Seen by Provider: 03/09/24 12:49 Mode of Arrival: Ambulatory Source of Information: Patient History of Present Illness HPI narrative: 78-year-old female presents for shortness of breath, coughing up yellow sputum for a couple of days. Patient states she is having episodes where she feels that she cannot catch her breath and she is going to pass out. Denies chest pain or pressure. Patient states she has been having some vaginal bleeding related to a prolapsed uterus and bladder. Patient states she had her pessary changed down by the [employer] about a week ago and since then the bleeding has slowed some. Patient states she is changing her pad 5-6 times a day but she is also incontinent. Patient states at times bleeding is heavier than others. Related Data Home Medications ?Medication ?Instructions ?Recorded ?Confirmed aspirin 81 mg tablet,delayed 81 mg PO Q OTHER DAY CAD 12/31/19 02/29/24 release (Adult Aspirin Regimen) digoxin 250 mcg (0.25 mg) tablet 125 mcg PO DAILY arrythmia 12/31/19 02/29/24 verapamil 120 mg tablet,extended 120 mg PO DAILY BP 12/31/19 02/29/24 release simvastatin 40 mg tablet 40 mg PO DAILY Cholesterol 12/04/20 02/29/24 metoprolol succinate 50 mg 50 mg PO DAILY HTN 04/01/21 02/29/24 tablet,extended release 24 hr esomeprazole magnesium 40 mg 40 mg PO DAILY 07/12/23 02/29/24 capsule,delayed release rivaroxaban 15 mg tablet 15 mg PO DAILY Blood thinner 07/19/23 02/29/24 albuterol sulfate 90 mcg/actuation inhalation 01/11/24 02/29/24 aerosol inhaler cefdinir 300 mg capsule 300 mg PO DAILY 01/11/24 02/29/24 pantoprazole 40 mg tablet,delayed 40 mg PO ONCE 01/11/24 02/29/24 release Previous Rx's ?Medication ?Instructions ?Recorded losartan 50 mg tablet See Rx Instructions .Route 11/22/23 .COMPLEX #90 tabs estradiol 0.01% (0.1 mg/gram) 0.5 appful vaginal .3x weekly 01/18/24 vaginal cream (Estrace) #42.5 grams Allergies Allergy/AdvReac Type Severity Reaction Status Date / Time No Known Allergies Allergy Verified 02/29/24 12:05 PFS <Anuja Faye ([facility]), [employer] - Last Filed: 03/09/24 14:02> PFS Disclaimer: The information contained in this section may have been updated after the patient was seen, as this information can be updated by other users. 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 , [employer]) GERD (gastroesophageal reflux disease) Dyspnea on exertion Chronic cough Shortness of Breath Chest pain Hypertension High cholesterol Afib Surgical History , [employer]) History of appendectomy Family History , [employer]) No significant family history Social History , [employer]) Smoking Status: Never smoker alcohol intake: current alcohol intake frequency: holidays/special occasions only counseling provided: none (Patient does not smoke or use alcohol ) substance use type: denies use current occupational status: retired Travel in the last 8 weeks: None household members: family housing: house caffeine: Yes Have you lived/traveled outside US in past 30 days?: No Contact w/someone who lives/traveled outside US past 30 days?: No Exposure to someone with infectious disease in past 14 days?: No Do you have a fever (greater than 100.4 F or 38 C)?: No Have you tested positive for COVID-19: No Exposed to someone with COVID-19 in past 14 days?: No Do you have a sore throat?: No Do you have a cough?: No Do you have any weakness?: No Do you have any diarrhea?: No Are you experiencing any unusual bleeding?: No Do you have any muscle aches/pain?: No Do you have any abdominal pain?: No Are you experiencing loss of taste or smell?: No Other 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 Have you received the Flu Vaccine for this season: No Have you received the Pneumonia Vaccine: Yes <Hermelindadileepmagali Sibleyshaunna ([facility]), [employer] - Last Filed: 03/09/24 14:02> ROS Obtained: Yes Systems reviewed as appropriate & no additional complaints except as documented Physical Exam <Hermelindareny shaunna ([facility]), [employer] - Last Filed: 03/09/24 14:02> General General appearance: alert and in no apparent distress Eye Eye exam: Present normal appearance ENT ENT exam: Present normal exam, normal oropharynx, mucous membranes moist and normal external ear exam Respiratory Respiratory exam: Present wheezes Cardiovascular Cardiovascular exam: Present irregular rhythm Abdominal Exam Abdominal exam: Present soft and normal bowel sounds Neurological Exam Neurological exam: Present alert and oriented X3 Skin Skin exam: Present warm and intact Medical Decision Making <Hermelindareny shaunna ([facility]), [employer] - Last Filed: 03/09/24 14:02> Medical Records Medical records reviewed: Yes I reviewed the patient's medical records. Screening: Per USPSTF and CDC recommendations, given the prevalence of disease in our region, it is our hospital?s policy to screen for HIV and viral Hepatitis for all patients aged 18 and over and those with ongoing risk factors. Rui Inquiry Pt receiving controlled substance: No Vital Signs: 03/09/24 13:00 03/09/24 13:31 03/09/24 14:01 Temperature 98.7 F Temperature Source Oral Pulse Rate 69 68 Pulse Rate [Left] 78 Respiratory Rate 18 Blood Pressure 101/79 L 146/74 H Blood Pressure [Right Arm] 157/77 H Blood Pressure Mean [Right Arm] 103 Blood Pressure Source [Right Arm] Automatic Cuff Blood Pressure Position [Right Arm] Sitting 02 Sat by Pulse Oximetry 99 100 99 Oxygen Delivery Method Room Air Room Air Room Air Lab Data Lab results reviewed: Yes I reviewed the patient's lab results. Lab Results 03/09/24 12:56: WBC 6.5, RBC 2.91 L, Hgb 7.3 L, Hct 23.1 L, MCV 79.4 L, MCH 25.1 L, MCHC 31.6 L, RDW 15.8, Plt Count 434 H, MPV 8.0, Neut % (Auto) 62.0, Lymph % (Auto) 24.7, Grainger % (Auto) 10.4 H, Eos % (Auto) 1.8, Baso % (Auto) 0.8, Neut # (Auto) 4.1, Lymph # (Auto) 1.6, Grainger # (Auto) 0.7, Eos # (Auto) 0.1, Baso # (Auto) 0.1, Sodium 131 L, Potassium 3.5, Chloride 102, Carbon Dioxide 21 L, Anion Gap 11.5, BUN 14, Creatinine 0.90, Estimated Creat Clear 40, Estimated GFR 61, Est GFR ( Amer) 74, Glucose 122 H, Calcium 9.1, Total Bilirubin 0.7, AST 32, ALT 32, Alkaline Phosphatase 60, Troponin I < 0.01, Total Protein 6.5, Albumin 4.0, Globulin 2.5, Albumin/Globulin Ratio 1.6 03/09/24 12:56 03/09/24 12:56 Orders (Tests/Meds): ORDERS Category Date Time Status XR chest 2V Stat Exams 03/09/24 12:59 Completed Complete Blood Count Auto Diff Stat Lab 03/09/24 12:56 Completed Comprehensive Metabolic Panel Stat Lab 03/09/24 12:56 Completed HIV Combo Stat Lab 03/09/24 12:54 Received Hep C Ab with Reflex to RNA Stat Lab 03/09/24 12:54 Received Trop I [Troponin I] Stat Lab 03/09/24 12:56 Completed Troponin I Q3H Lab 03/09/24 16:00 Ordered Troponin I Q3H Lab 03/09/24 19:00 Ordered Physician Consults Physician Consulted: Time: 14:01 Reason -: Admission Medical Decision Narrative: In summary patient is a 78-year-old female who presents to the emergency department for evaluation of shortness of breath, dizzy, shortness of breath worse on exertion with feelings of passing out. Patient is vital signs stable upon arrival, afebrile. Differential diagnosis includes pneumonia, bronchitis, anemia. Initial workup will be conducted with labs, chest x-ray. Initial inventions include labs. Initial workup reviewed by sc labs, x-ray. Upon repeat evaluation H&H was low compared to history. Consulted [employer] agreed to admit for eval and treat.. Given this patient will be admitted to Dr. Rubin for evaluation and treatment I informally interpreted patient's chest x-ray unremarkable for pneumonia <Zaid Garcia MD - Last Filed: 03/09/24 14:36> Vital Signs: 03/09/24 13:00 03/09/24 13:31 03/09/24 14:01 Temperature 98.7 F Temperature Source Oral Pulse Rate 69 68 Pulse Rate [Left] 78 Respiratory Rate 18 Blood Pressure 101/79 L 146/74 H Blood Pressure [Right Arm] 157/77 H Blood Pressure Mean [Right Arm] 103 Blood Pressure Source [Right Arm] Automatic Cuff Blood Pressure Position [Right Arm] Sitting 02 Sat by Pulse Oximetry 99 100 99 Oxygen Delivery Method Room Air Room Air Room Air Lab Data Lab Results 03/09/24 12:56: WBC 6.5, RBC 2.91 L, Hgb 7.3 L, Hct 23.1 L, MCV 79.4 L, MCH 25.1 L, MCHC 31.6 L, RDW 15.8, Plt Count 434 H, MPV 8.0, Neut % (Auto) 62.0, Lymph % (Auto) 24.7, Grainger % (Auto) 10.4 H, Eos % (Auto) 1.8, Baso % (Auto) 0.8, Neut # (Auto) 4.1, Lymph # (Auto) 1.6, Grainger # (Auto) 0.7, Eos # (Auto) 0.1, Baso # (Auto) 0.1, Sodium 131 L, Potassium 3.5, Chloride 102, Carbon Dioxide 21 L, Anion Gap 11.5, BUN 14, Creatinine 0.90, Estimated Creat Clear 40, Estimated GFR 61, Est GFR ( Amer) 74, Glucose 122 H, Calcium 9.1, Total Bilirubin 0.7, AST 32, ALT 32, Alkaline Phosphatase 60, Troponin I < 0.01, Total Protein 6.5, Albumin 4.0, Globulin 2.5, Albumin/Globulin Ratio 1.6 Orders (Tests/Meds): ORDERS Category Date Time Status XR chest 2V Stat Exams 03/09/24 12:59 Completed Complete Blood Count Auto Diff Stat Lab 03/09/24 12:56 Completed Comprehensive Metabolic Panel Stat Lab 03/09/24 12:56 Completed HIV Combo Stat Lab 03/09/24 12:54 Received Hep C Ab with Reflex to RNA Stat Lab 03/09/24 12:54 Received Trop I [Troponin I] Stat Lab 03/09/24 12:56 Completed Troponin I Q3H Lab 03/09/24 16:00 Ordered Troponin I Q3H Lab 03/09/24 19:00 Ordered ECG Data Tracing #1: Independently interpreted by me rate of 73, rhythm is regular, axis is normal, no ST elevation in anatomical contiguous leads, QTc 417 Medical Decision Narrative: In summary patient is a 78-year-old female who presents to the emergency department for evaluation of shortness of breath, dizzy, shortness of breath worse on exertion with feelings of passing out. Patient is vital signs stable upon arrival, afebrile. Differential diagnosis includes pneumonia, bronchitis, anemia. Initial workup will be conducted with labs, chest x-ray. Initial inventions include labs. Initial workup reviewed by me labs, x-ray. Upon repeat evaluation H&H was low compared to history. Consulted [employer] agreed to admit for eval and treat.. Given this patient will be admitted to Dr. Rubin for evaluation and treatment I informally interpreted patient's chest x-ray unremarkable for pneumonia. I was consulted by the DARRYL, and we discussed the complexity of the problems being addressed. I approved the treatment and management plan for this patient's care in the emergency department, thus performing a substantive portion of the medical decision making. Zaid Garcia MD Critical Care <Anuja Faye ([facility]), [employer] - Last Filed: 03/09/24 14:02> Critical Care Time Critical Care Time: No
[2024-03-09 13:04] LABS: Basophils # 0.1 K/mm3 (0-0.2); Basophils % 0.8 % (0.1-2.0); Eosinophils # 0.1 K/mm3 (0.0-0.4); Eosinophils % 1.8 % (0.1-12.0); Hematocrit 23.1 % (37.0-47.0); Hemoglobin 7.3 g/dL (12.2-16.2); Lymphocytes # 1.6 K/mm3 (0.7-4.5); Lymphocytes % 24.7 % (10-50); Mean Corpuscular HGB Conc 31.6 g/dL (31.8-35.4); Mean Corpuscular Hemoglobin 25.1 pg (27.0-31.2); Mean Corpuscular Volume 79.4 fl (81-99); Monocytes # 0.7 K/mm3 (0.1-1.0); Monocytes % 10.4 % (1.7-9.3); Neutrophils # 4.1 K/mm3 (1.8-7.8); Platelet Count 434 K/mm3 (142-424); Red Blood Count 2.91 M/mm3 (4.20-5.40); Red Cell Distribution Width 15.8 % (11.5-17.5); White Blood Count 6.5 K/mm3 (4.8-10.8)
[2024-03-09 13:07] LABS: Chloride 102 mmol/L (98-107); Sodium 131 mmol/L (136-145)
[2024-03-09 13:08] LABS: Potassium 3.5 mmoL/L (3.5-5.1)
[2024-03-09 13:10] LABS: Alanine Aminotransferase 32 U/L (12-78); Albumin/Globulin Ratio 1.6 (1.1-1.8); Alkaline Phosphatase 60 U/L (38-126); Anion Gap 11.5 mEq/L (5-15); Aspartate Amino Transferase 32 U/L (14-36); Bilirubin,Total 0.7 mg/dl (0.2-1.3); Blood Urea Nitrogen 14 mg/dl (7-17); Carbon Dioxide 21 mmol/L (22.0-30.0); Creatinine Clearance Estimated 40 mL/min (50-200); Estimated Glomerular Filt Rate 61 ml/min (>60); GFR (African American) 74 ML/MIN (>60); Globulin 2.5 g/dL (1.3-3.2); Total Protein,Serum 6.5 g/dl (6.3-8.2)
[2024-03-09 13:11] LABS: Calcium 9.1 mg/dl (8.4-10.2); Glucose 122 mg/dl (74-100)
[2024-03-09 13:24] LABS: Troponin I < 0.01 ng/ml (0.00-0.034)
--- NOTE | 2024-03-09 13:57 | PC.NURSE ---
SENIOR FINANCIAL REPORTING ANALYST NOTIFIED OF ADMISSION
--- NOTE | 2024-03-09 14:25 | PC.NURSE ---
Report called to Sasha ENGLISH
[2024-03-09 16:47] LABS: Troponin I < 0.01 ng/ml (0.00-0.034)
--- NOTE | 2024-03-09 17:27 | P.HP_ITS ---
History of Present Illness *Admission Date: 03/09/24 *Reason for visit:: Shortness of breath *History of present illness: Ms Alesha Szymanski is a very pleasant 78 yo female who presented to [facility] ED with complaint of shortness of breath that started a few days ago. In the ED she reported history of vaginal bleeding from atrophy with pessary in place for pelvic organ prolapse. On 02/29/[address] Velez in the office and had size #8 ring with support pessary removed and replaced with size # 6 ring with support. She states bleeding pretty much stopped after smaller pessary was inserted on 02/29/24. She is not bleeding today. She has been taking oral iron for anemia. She does report urinary incontinence. Her PCP is Dr. Barrera. She denies chest pain. She admits to some dizziness with standing. Past medical history significant for diastolic heart dysfunction, mitral regurgitation, aor tic insufficiency and A Fib. She has history of exertional dyspnea and cough. She saw Dr. Hernandez last in October 2023 and no obvious pulmonary parenchymal etiology was found. While in the ED she had Chest X-ray that demonstrated Pulmonary emphysema; Linear bilateral lower chest pulmonary atelectasis, or scarring; Chronic findings. Vital signs stable with O2 sat 99 % on room air. BP mild range and normal heart rate. Labwork significant for Hgb 7.3 and platelets mildly elevated. Negative troponins. Upon interviewing Alesha on the floor she was up walking around the room and standing during conversation. Alesha expressed concerns about her living situation. She lives with one of her daughters, her daughter's and her two grandchildren. She is concerned that her daughter is not properly caring for her or grandchildren. She states she lives in the basement and there is no heat. She does have a bathroom and a hot plate, microwave and toaster oven to prepare food. 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 She doesn't feel like her daughter is very good to her and doesn't properly feed her grandchildren. [facility] Disclaimer: The information contained in this section may have been updated after the patient was seen, as this information can be updated by other users. 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 , COMBATANT DIVER QUALIFIED) GERD (gastroesophageal reflux disease) Dyspnea on exertion Chronic cough Shortness of Breath Chest pain Hypertension High cholesterol Afib Surgical History , COMBATANT DIVER QUALIFIED) History of appendectomy Family History , COMBATANT DIVER QUALIFIED) No significant family history Social History (Updated 03/09/24 @ 14:55 by Sasha De Jesus RN) Smoking Status: Never smoker alcohol intake: never counseling provided: none (Patient does not smoke or use alcohol ) substance use type: denies use current occupational status: retired Travel in the last 8 weeks: None household members: family housing: house caffeine: Yes do you feel safe at home: Yes victim of physical abuse: No victim of emotional abuse: No victim of sexual abuse: No Have you lived/traveled outside US in past 30 days?: No Contact w/someone who lives/traveled outside US past 30 days?: No Exposure to someone with infectious disease in past 14 days?: No Do you have a fever (greater than 100.4 F or 38 C)?: No Have you tested positive for COVID-19: No Exposed to someone with COVID-19 in past 14 days?: No Do you have a sore throat?: No Do you have a cough?: No Do you have any weakness?: No Are you experiencing any nausea/vomitting?: No Do you have any diarrhea?: No Are you experiencing any unusual bleeding?: No Do you have any muscle aches/pain?: No Do you have any abdominal pain?: No Are you experiencing loss of taste or smell?: No Other 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 Have you received the Flu Vaccine for this season: No Have you received the Pneumonia Vaccine: No Review of Systems Review of Systems Review of systems:: pertinent systems reviewed and negative unless documented below ENT Ears, Nose, Mouth, and Throat: Reports dizziness *Cardiovascular Cardiovascular: Reports dyspnea and Reports dyspnea on exertion *Respiratory Respiratory: Reports dyspnea and Reports dyspnea on exertion *Neurologic Neurologic: Reports dizziness Meds Home Medications and Allergies Home Medications ?Medication ?Instructions ?Recorded ?Confirmed ?Type aspirin 81 mg tablet,delayed 81 mg PO Q OTHER DAY CAD 12/31/19 03/09/24 History release (Adult Aspirin Regimen) digoxin 250 mcg (0.25 mg) tablet 125 mcg PO DAILY arrythmia 12/31/19 03/09/24 History verapamil 120 mg tablet,extended 120 mg PO BID BP 12/31/19 03/09/24 History release simvastatin 40 mg tablet 40 mg PO DAILY Cholesterol 12/04/20 03/09/24 History metoprolol succinate 50 mg 50 mg PO DAILY HTN 04/01/21 03/09/24 History tablet,extended release 24 hr esomeprazole magnesium 40 mg 40 mg PO DAILY 07/12/23 03/09/24 History capsule,delayed release rivaroxaban 15 mg tablet 15 mg PO DAILY Blood thinner 07/19/23 03/09/24 History albuterol sulfate 90 mcg/actuation 1 puff inhalation QIDP PRN 01/11/24 03/09/24 History aerosol inhaler Shortness Of Breath Or Wheezing pantoprazole 40 mg tablet,delayed 40 mg PO ONCE 01/11/24 03/09/24 History release estradiol 0.01% (0.1 mg/gram) 0.5 appful vaginal .3x weekly 01/18/24 03/09/24 Rx vaginal cream (Estrace) #42.5 grams losartan 50 mg tablet 50 mg PO DAILY 03/09/24 03/09/24 History New Prescriptions to Start Prescriptions: Allergies Allergy/AdvReac Type Severity Reaction Status Date / Time No Known Allergies Allergy Verified 02/29/24 12:05 Exam Data for Last 24 hours Vital signs and Labs for Last 24 Hours: Temp Pulse Resp BP Pulse Ox O2 Del Method 98.3 F 67 18 160/77 H 99 Room Air 03/09/24 14:56 03/09/24 14:56 03/09/24 14:56 03/09/24 14:56 03/09/24 16:14 03/09/24 16:14 Laboratory Results - last 24 hr 03/09/24 12:56: WBC 6.5, RBC 2.91 L, Hgb 7.3 L, Hct 23.1 L, MCV 79.4 L, MCH 25.1 L, MCHC 31.6 L, RDW 15.8, Plt Count 434 H, MPV 8.0, Neut % (Auto) 62.0, Lymph % (Auto) 24.7, [place] % (Auto) 10.4 H, Eos % (Auto) 1.8, Baso % (Auto) 0.8, Neut # (Auto) 4.1, Lymph # (Auto) 1.6, [place] # (Auto) 0.7, Eos # (Auto) 0.1, Baso # (Auto) 0.1, Sodium 131 L, Potassium 3.5, Chloride 102, Carbon Dioxide 21 L, Anion Gap 11.5, BUN 14, Creatinine 0.90, Estimated Creat Clear 40, Estimated GFR 61, Est GFR ( Amer) 74, Glucose 122 H, Calcium 9.1, Total Bilirubin 0.7, AST 32, ALT 32, Alkaline Phosphatase 60, Troponin I < 0.01, Total Protein 6.5, Albumin 4.0, Globulin 2.5, Albumin/Globulin Ratio 1.6 03/09/24 16:00: Troponin I < 0.01 I & O for Last 24 hours: Intake & Output 03/06/24 03/07/24 03/08/24 03/09/24 23:59 23:59 23:59 23:59 Weight 118 lb Constitutional Constitutional: no acute distress and cooperative *Routine HEENT Exam Head: Present normocephalic and atraumatic Eye: Absent conjunctivae pink ENT: Present mucous membranes moist *Routine Neck Exam Neck: Present full ROM *Routine Respiratory Exam Respiratory: Present wheezes (expiratory wheeze ) and normal respiratory effort *Routine Cardiovascular Exam Cardiovascular: Present irregular rhythm Comments: Regular heart rate *Routine Abdominal Exam Abdominal: Present soft; Absent tenderness or distended *Routine Rectal Exam Rectal:: deferred *Routine Genitalia Exam Genitalia:: deferred *Routine Extremities Exam Extremities: Present full ROM; Absent edema or calf tenderness *Routine Neurological Exam Neurological: Present alert, moving all extremities and normal speech Routine Psychiatric Exam Psychiatric: Present normal affect and cooperative Assessment and Plan *Assessment and plan (1) Dyspnea on exertion: Status: Chronic Category: Medical Code(s): R06.09 - Other forms of dyspnea (2) Chronic cough: Status: Chronic Category: Medical Code(s): R05.3 - Chronic cough (3) Shortness of Breath: Status: Chronic Category: Medical Code(s): R06.02 - Shortness of breath (4) Complete uterine prolapse with prolapse of anterior vaginal wall: Status: Chronic Category: Medical Code(s): N81.3 - Complete uterovaginal prolapse (5) Anemia: Status: Acute Qualifiers: Anemia type: other cause Other causes of anemia: acute posthemorrhagic Qualified Code(s): D62 - Acute posthemorrhagic anemia Category: Medical Code(s): D64.9 - Anemia, unspecified (6) OAB (overactive bladder): Status: Acute Category: Medical Code(s): N32.81 - Overactive bladder (7) Hypertension: Status: Chronic Qualifiers: Hypertension type: essential hypertension Qualified Code(s): I10 - Essential (primary) hypertension Category: Medical Code(s): I10 - Essential (primary) hypertension (8) Diastolic dysfunction: Status: Chronic Category: Medical Code(s): I51.89 - Other ill-defined heart diseases (9) Moderate mitral regurgitation: Status: Acute Category: Medical Code(s): I34.0 - Nonrheumatic mitral (valve) insufficiency (10) Aortic insufficiency: Status: Chronic Qualifiers: Cardiac valve disease etiology: nonrheumatic Qualified Code(s): I35.1 - Nonrheumatic aortic (valve) insufficiency Category: Medical Code(s): I35.1 - Nonrheumatic aortic (valve) insufficiency (11) Atrial fibrillation with rapid ventricular response: Status: Acute Category: Medical Code(s): I48.91 - Unspecified atrial fibrillation Plan Alesha denies vaginal bleeding today and reports vaginal bleeding was very light after smaller pessary was inserted on 02/29/24. Increased shortness of breath started a few days ago. She is taking oral iron for known anemia. She has cardiac history as well as history of exertional dyspnea and chronic cough EKG ordered Consult internal medicine, Dr. Jamison Appreciate care and recommendations from Dr. Jamison
--- NOTE | 2024-03-09 17:39 | ECG_ITS ---
APPROVED REPORT Exam: Resting ECG HR:72 bpm ECG Measurements Heart Rate 72 AXES CO 158 P 164 QRSd 125 QRS 116 QT 398 T 187 QTc 422 Conclusion Snus bracycardia with OCCASIONAL SUPRAVENTRICULAR PREMATURE COMPLEXES RIGHT AXIS DEVIATION [QRS AXIS > 100] RIGHT BUNDLE BRANCH BLOCK [120+ ms QRS DURATION, UPRIGHT V1, 40+ ms S IN I/aVL/V4/V5/V6] ABNORMAL ECG INTERPRETATION BASED ON A DEFAULT AGE OF 40 YEARS UNCONFIRMED REPORT Electronically signed by : Rito Jamison MD 03/10/2024 08:00:19
[2024-03-09 18:00] LABS: ABG Base Excess -2.1 mmol/L (-2.4-2.3); ABG HCO3 20.3 mmhg (22.0-26.0); ABG Oxygen Saturation 97 % (90-100); ABG PCO2 23.9 mmhg (35.0-45.0); ABG PO2 82.8 mmhg (80-100)
[2024-03-09 18:07] LABS: Allen's Test Acceptable; Oxygen RA %; Source Right Radial
[2024-03-09 18:09] LABS: ABG PH 7.55 mmol/L (7.35-7.45)
[2024-03-09 18:29] LABS: D-Dimer 0.62 ug/mL (0.0-0.5)
[2024-03-09] MEDS: RIVAROXABAN 15MG TABLET 15 MG PO (18:40)
[2024-03-09] MEDS: METHYLPREDNISOLONE SOD SUCC 125MG VIAL 80 MG IV (18:40)
[2024-03-09] MEDS: LEVOFLOXACIN/D5W 500 MG/100 ML PIGGYBACK 100 MG IV (18:40)
--- NOTE | 2024-03-09 19:42 | P.CONS_ITS ---
History of Present Illness *Admission Date: 03/09/24 *Reason for visit:: Dyspnea *History of present illness: Ms Alesha Szymanski is a very pleasant 78 yo female who presented to [facility] ED with complaint of shortness of breath that started a few days ago. In the ED she reported history of vaginal bleeding from atrophy with pessary in place for pelvic organ prolapse. On 02/29/[address] Velez in the office and had size #8 ring with support pessary removed and replaced with size # 6 ring with support. She states bleeding pretty much stopped after smaller pessary was inserted on 02/29/24. She is not bleeding today. She has been taking oral iron for anemia. She does report urinary incontinence. Her PCP is Dr. Barrera. She denies chest pain. She admits to some dizziness with standing. Past medical history significant for diastolic heart dysfunction, mitral regurgitation, aortic insufficiency and A Fib. She has history of exertional dyspnea and cough. She saw Dr. Hernandez last in October 2023 and no obvious pulmonary parenchymal etiology was found. While in the ED she had Chest X-ray that demonstrated Pulmonary emphysema; Linear bilateral lower chest pulmonary atelectasis, or scarring; Chronic findings. Vital signs stable with O2 sat 99 % on room air. BP mild range and normal heart rate. Labwork significant for Hgb 7.3 and platelets mildly elevated. Negative troponins. Upon interviewing Alesha on the floor she was up walking around the room and standing during conversation. Alesha expressed concerns about her living situation. She lives with one of her daughters, her daughter's and her two grandchildren. She is concerned that her daughter is not properly caring for her or grandchildren. She states she lives in the basement and there is no heat. She does have a bathroom and a hot plate, microwave and toaster oven to prepare food. 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 She doesn't feel like her daughter is very good to her and doesn't properly feed her grandchildren. [facility] Disclaimer: The information contained in this section may have been updated after the patient was seen, as this information can be updated by other users. 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) GERD (gastroesophageal reflux disease) Dyspnea on exertion Chronic cough Shortness of Breath Chest pain Hypertension High cholesterol Afib Surgical History , CERTIFIED PUBLIC ACCOUNTANT) History of appendectomy Family History , CERTIFIED PUBLIC ACCOUNTANT) No significant family history Social History (Updated 03/09/24 @ 14:55 by Sasha De Jesus RN) Smoking Status: Never smoker alcohol intake: never counseling provided: none (Patient does not smoke or use alcohol ) substance use type: denies use current occupational status: retired Travel in the last 8 weeks: None household members: family housing: house caffeine: Yes do you feel safe at home: Yes victim of physical abuse: No victim of emotional abuse: No victim of sexual abuse: No Have you lived/traveled outside US in past 30 days?: No Contact w/someone who lives/traveled outside US past 30 days?: No Exposure to someone with infectious disease in past 14 days?: No Do you have a fever (greater than 100.4 F or 38 C)?: No Have you tested positive for COVID-19: No Exposed to someone with COVID-19 in past 14 days?: No Do you have a sore throat?: No Do you have a cough?: No Do you have any weakness?: No Are you experiencing any nausea/vomitting?: No Do you have any diarrhea?: No Are you experiencing any unusual bleeding?: No Do you have any muscle aches/pain?: No Do you have any abdominal pain?: No Are you experiencing loss of taste or smell?: No Review of Systems ENT Ears, Nose, Mouth, and Throat: Reports dizziness *Neurologic Neurologic: Reports dizziness Exam Data for Last 24 hours Vital signs and Labs for Last 24 Hours: Temp Pulse Resp BP Pulse Ox O2 Del Method 98.3 F 70 18 160/77 H 99 Room Air 03/09/24 14:56 03/09/24 18:31 03/09/24 14:56 03/09/24 14:56 03/09/24 16:14 03/09/24 19:12 Laboratory Results - last 24 hr 03/09/24 12:56: WBC 6.5, RBC 2.91 L, Hgb 7.3 L, Hct 23.1 L, MCV 79.4 L, MCH 25.1 L, MCHC 31.6 L, RDW 15.8, Plt Count 434 H, MPV 8.0, Neut % (Auto) 62.0, Lymph % (Auto) 24.7, [place] % (Auto) 10.4 H, Eos % (Auto) 1.8, Baso % (Auto) 0.8, Neut # (Auto) 4.1, Lymph # (Auto) 1.6, [place] # (Auto) 0.7, Eos # (Auto) 0.1, Baso # (Auto) 0.1, Sodium 131 L, Potassium 3.5, Chloride 102, Carbon Dioxide 21 L, Anion Gap 11.5, BUN 14, Creatinine 0.90, Estimated Creat Clear 40, Estimated GFR 61, Est GFR ( Amer) 74, Glucose 122 H, Calcium 9.1, Total Bilirubin 0.7, AST 32, ALT 32, Alkaline Phosphatase 60, Troponin I < 0.01, Total Protein 6.5, Albumin 4.0, Globulin 2.5, Albumin/Globulin Ratio 1.6 03/09/24 16:00: Troponin I < 0.01 03/09/24 17:24: Specimen Source Right radial, O2 % Ra, ABG pH 7.55 H, ABG pCO2 23.9 L, ABG pO2 82.8, ABG HCO3 20.3 L, ABG Total CO2 21.0 L, ABG O2 Saturation 97, ABG Base Excess -2.1, Hakeem Test Acceptable 03/09/24 17:50: D-Dimer 0.62 H I & O for Last 24 hours: Intake & Output 03/07/24 03/08/24 03/09/24 03/10/24 11:59 11:59 11:59 11:59 Weight 118 lb *Routine HEENT Exam Head: Present normocephalic and atraumatic Eye: Present EOMI ENT: Present mucous membranes moist *Routine Respiratory Exam Respiratory: Present rhonchi, normal respiratory effort and symmetric chest movement Comments: Minimal expiratory rhonchi *Routine Cardiovascular Exam Cardiovascular: Present RRR, Normal S1 and Normal S2 *Routine Abdominal Exam Abdominal: Present soft and normoactive bowel sounds *Routine Extremities Exam Comments: Good distal perfusion. No edema. No clubbing Osteoarthritic changes to joints *Routine Neurological Exam Neurological: Present alert and oriented X3 Comments: Very talkative. Pleasant. Meds Home Medications and Allergies Home Medications ?Medication ?Instructions ?Recorded ?Confirmed ?Type aspirin 81 mg tablet,delayed 81 mg PO Q OTHER DAY CAD 12/31/19 03/09/24 History release (Adult Aspirin Regimen) digoxin 250 mcg (0.25 mg) tablet 125 mcg PO DAILY arrythmia 12/31/19 03/09/24 History verapamil 120 mg tablet,extended 120 mg PO BID BP 12/31/19 03/09/24 History release simvastatin 40 mg tablet 40 mg PO DAILY Cholesterol 12/04/20 03/09/24 History metoprolol succinate 50 mg 50 mg PO DAILY HTN 04/01/21 03/09/24 History tablet,extended release 24 hr esomeprazole magnesium 40 mg 40 mg PO DAILY 07/12/23 03/09/24 History capsule,delayed release rivaroxaban 15 mg tablet 15 mg PO DAILY Blood thinner 07/19/23 03/09/24 History albuterol sulfate 90 mcg/actuation 1 puff inhalation QIDP PRN 01/11/24 03/09/24 History aerosol inhaler Shortness Of Breath Or Wheezing pantoprazole 40 mg tablet,delayed 40 mg PO ONCE 01/11/24 03/09/24 History release estradiol 0.01% (0.1 mg/gram) 0.5 appful vaginal .3x weekly 01/18/24 03/09/24 Rx vaginal cream (Estrace) #42.5 grams losartan 50 mg tablet 50 mg PO DAILY 03/09/24 03/09/24 History New Prescriptions to Start Prescriptions: Allergies Allergy/AdvReac Type Severity Reaction Status Date / Time No Known Allergies Allergy Verified 02/29/24 12:05 Results Labs 03/09/24 12:56 03/09/24 12:56 Labs: Abnormal lab results 03/09/24 03/09/24 03/09/24 Range/Units 12:56 17:24 17:50 RBC 2.91 L (4.20-5.40) M/mm3 Hgb 7.3 L (12.2-16.2) g/dL Hct 23.1 L (37.0-47.0) % MCV 79.4 L (81-99) fl MCH 25.1 L (27.0-31.2) pg MCHC 31.6 L (31.8-35.4) g/dL Plt Count 434 H (142-424) K/mm3 [place] % (Auto) 10.4 H (1.7-9.3) % D-Dimer 0.62 H (0.0-0.5) ug/mL ABG pH 7.55 H (7.35-7.45) mmol/L ABG pCO2 23.9 L (35.0-45.0) mmhg ABG HCO3 20.3 L (22.0-26.0) mmhg ABG Total CO2 21.0 L (23-27) mmhg Sodium 131 L (136-145) mmol/L Carbon Dioxide 21 L (22.0-30.0) mmol/L Glucose 122 H (74-100) mg/dl H & H 03/09/24 Range/Units 12:56 Hgb 7.3 L (12.2-16.2) g/dL Hct 23.1 L (37.0-47.0) % All other labs normal. Assessment and Plan *Assessment and plan (1) Anemia: Problem Comment: Not sure anemia is related to exclusively vaginal bleeding. She states this is improving. Agree with INTERNET AND E BUSINESS PROJECT MANAGER for no need for intervention at this point. I am unclear about why patient is on Xarelto. Cardiology notes record atrial fibrillation but I can see no actual A-fib either on a Holter report that I read last year or any EKG recently. Patient states she is on the blood thinner so I do not have a heart attack. This may need to be readdressed with primary family practice office. I do not think her shortness of air is from the anemia and this seems to be perhaps a more chronic problem. I think this would be best worked up as an outpatient, I do not see a need for active transfusion at this point given normal vital signs. Status: Acute Qualifiers: Anemia type: other cause Other causes of anemia: acute posthemorrhagic Qualified Code(s): D62 - Acute posthemorrhagic anemia Category: Medical Code(s): D64.9 - Anemia, unspecified (2) Dyspnea on exertion: Problem Comment: I reviewed previous pulmonary notes. PFTs were noted and read as normal but patient does have improved FEV/FVC ratio after bronchodilation and also had small vessel improvement with bronchodilation. She does not think that the current albuterol prescribed by nurse practitioner and her family care office has helped, I actually think trial of a steroid inhaler would be reasonable to do but we will leave this up to her primary care office. I do think she has evidence of a bronchitis. She recently finished cefdinir and did not think it helped. Will administer a dose of IV steroids tonight in the hospital and IV Levaquin. If she is feeling this well tomorrow she can be discharged on p.o. therapy Status: Chronic Category: Medical Code(s): R06.09 - Other forms of dyspnea (3) Chronic cough: Problem Comment: Currently has improved with PPI. She does not really complain much of a cough today Status: Chronic Category: Medical Code(s): R05.3 - Chronic cough (4) Shortness of Breath: Problem Comment: Nonexertional, she has been up and around the room without problems. D-dimer reassuring. Chest x-ray reviewed. ABG reassuring. Again I think this is probably more of an outpatient appropriate workup and will discharge tomorrow unless she worsens Appreciate consult from INTERNET AND E BUSINESS PROJECT MANAGER, happy to be of assistance Status: Chronic Category: Medical Code(s): R06.02 - Shortness of breath
[2024-03-09 19:44] LABS: Troponin I < 0.01 ng/ml (0.00-0.034)
[2024-03-09] MEDS: PRAVASTATIN 40MG TAB 40 MG PO (20:55)
[2024-03-09] MEDS: [UNRECOGNIZED DRUG - OTHER] 120 MG PO (21:01)
[2024-03-09 22:33] LABS: HIV Combo NEGATIVE (Negative)
[2024-03-10 03:59] VITALS: BP 161/75; PULSE 88; RESP 20; TEMP 36.8; O2SAT 99
[2024-03-10 04:04] VITALS: O2SAT 99
--- NOTE | 2024-03-10 04:07 | PC.NURSE ---
Pt had elevated BP of 161/75 during reassessment. Pt denies dizziness, weakness, headache, pain. Pt reports feeling fine other than some slight anxiety about not being home with her animals. Reassurance provided to pt and warm blanket provided per pt request so she can try to lay down to get some more sleep. Call light placed next to pt, bed in lowest position.
[2024-03-10 06:48] VITALS: BP 145/70
--- NOTE | 2024-03-10 07:43 | EXP.DC.SUM ---
General Admission date:: 03/09/24 Discharge date: 03/10/24 HPI HPI HPI: Ms Alesha Szymanski is a very pleasant 78 yo female who presented to [facility] ED with complaint of shortness of breath that started a few days ago. In the ED she reported history of vaginal bleeding from atrophy with pessary in place for pelvic organ prolapse. On 02/29/[address] Velez in the office and had size #8 ring with support pessary removed and replaced with size # 6 ring with support. She states bleeding pretty much stopped after smaller pessary was inserted on 02/29/24. She is not bleeding today. She has been taking oral iron for anemia. She does report urinary incontinence. Her PCP is Dr. Barrera. She denies chest pain. She admits to some dizziness with standing. Past medical history significant for diastolic heart dysfunction, mitral regurgitation, aortic insufficiency and A Fib. She has history of exertional dyspnea and cough. She saw Dr. Hernandez last in October 2023 and no obvious pulmonary parenchymal etiology was found. While in the ED she had Chest X-ray that demonstrated Pulmonary emphysema; Linear bilateral lower chest pulmonary atelectasis, or scarring; Chronic findings. Vital signs stable with O2 sat 99 % on room air. BP mild range and normal heart rate. Labwork significant for Hgb 7.3 and platelets mildly elevated. Negative troponins. Upon interviewing Alesha on the floor she was up walking around the room and standing during conversation. Alesha expressed concerns about her living situation. She lives with one of her daughters, her daughter's and her two grandchildren. She is concerned that her daughter is not properly caring for her or grandchildren. She states she lives in the basement and there is no heat. She does have a bathroom and a hot plate, microwave and toaster oven to prepare food. 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 She doesn't feel like her daughter is very good to her and doesn't properly feed her grandchildren. Above HPI note per Dr. Plummer's H&P Hospital Course Hospital Course Hospital Course: I was consulted for patient's dyspnea as noted in my initial consult note. Patient had no further vaginal bleeding through the night and I do not believe that her anemia is the cause of her dyspnea. Please see my consult note for full details. I believe she has a mild bronchitis and possibly has asthmatic bronchitis. I reviewed PFTs that were read this last summer as normal, but noted that there is small vessel reversibility and increase in FEV1/FVC ratio with bronchodilators. Interestingly she has not had symptomatic improvement with recent prescription of albuterol bronchodilator inhaler from her nurse practitioner. I wonder if she would benefit from a trial of inhaled steroids but I will leave that up to her primary service as she is currently not wheezing. Chest x-ray was reviewed. I gave her a dose of Levaquin and Solu-Medrol last night. This morning she feels great except she has not slept well in the hospital. She is up and moving around the hospital room with no evidence of dyspnea and her vital signs are normal. CBC and BMP are pending. If her CBC does not show further slippage in her hemoglobin we will discharge patient. I sent a prescription for Levaquin and oral steroids to her pharmacy as patient had recently finished a course of cefdinir that she said was not helping her. I have asked her to contact [facility] sometime this week for a follow-up appointment and to reevaluate her dyspnea. I also think she needs an evaluation for anemia which may have been done on there and as I do not have access to those records. I also think her indication for DOAC therapy should be reevaluated. There may be information that I do not have but Holter monitor from 2 years ago and the EKGs I can find show no ongoing A-fib, And given her very real risk of bleeding this may need to be stopped. In addition, her discussion with Dr. Plummer about her living situation is interesting. She did not repeat this to me and seemed very happy living with her daughter and helping care for her grandchildren, however there may be some situations there that might make her breathing worse such as the heating situation and her exposure to chickens that are apparently in and out of her home. Currently she is clinically very stable. Exam Data for Last 24 hours Vital signs and Labs for Last 24 Hours: Temp Pulse Resp BP Pulse Ox O2 Del Method 98.3 F 88 20 145/70 H 99 Room Air 03/10/24 03:59 03/10/24 03:59 03/10/24 03:59 03/10/24 06:48 03/10/24 04:04 03/10/24 06:49 Laboratory Results - last 24 hr 03/09/24 12:54: HIV Ag/Ab Combo Qual Negative 03/09/24 12:56: WBC 6.5, RBC 2.91 L, Hgb 7.3 L, Hct 23.1 L, MCV 79.4 L, MCH 25.1 L, MCHC 31.6 L, RDW 15.8, Plt Count 434 H, MPV 8.0, Neut % (Auto) 62.0, Lymph % (Auto) 24.7, [place] % (Auto) 10.4 H, Eos % (Auto) 1.8, Baso % (Auto) 0.8, Neut # (Auto) 4.1, Lymph # (Auto) 1.6, [place] # (Auto) 0.7, Eos # (Auto) 0.1, Baso # (Auto) 0.1, Sodium 131 L, Potassium 3.5, Chloride 102, Carbon Dioxide 21 L, Anion Gap 11.5, BUN 14, Creatinine 0.90, Estimated Creat Clear 40, Estimated GFR 61, Est GFR ( Amer) 74, Glucose 122 H, Calcium 9.1, Total Bilirubin 0.7, AST 32, ALT 32, Alkaline Phosphatase 60, Troponin I < 0.01, Total Protein 6.5, Albumin 4.0, Globulin 2.5, Albumin/Globulin Ratio 1.6 03/09/24 16:00: Troponin I < 0.01 03/09/24 17:24: Specimen Source Right radial, O2 % Ra, ABG pH 7.55 H, ABG pCO2 23.9 L, ABG pO2 82.8, ABG HCO3 20.3 L, ABG Total CO2 21.0 L, ABG O2 Saturation 97, ABG Base Excess -2.1, Hakeem Test Acceptable 03/09/24 17:50: D-Dimer 0.62 H 03/09/24 18:25: Troponin I < 0.01 Temp Pulse Resp BP Pulse Ox O2 Del Method 98.3 F 70 18 160/77 H 99 Room Air 03/09/24 14:56 03/09/24 18:31 03/09/24 14:56 03/09/24 14:56 03/09/24 16:14 03/09/24 19:12 Laboratory Results - last 24 hr 03/09/24 12:56: WBC 6.5, RBC 2.91 L, Hgb 7.3 L, Hct 23.1 L, MCV 79.4 L, MCH 25.1 L, MCHC 31.6 L, RDW 15.8, Plt Count 434 H, MPV 8.0, Neut % (Auto) 62.0, Lymph % (Auto) 24.7, [place] % (Auto) 10.4 H, Eos % (Auto) 1.8, Baso % (Auto) 0.8, Neut # (Auto) 4.1, Lymph # (Auto) 1.6, [place] # (Auto) 0.7, Eos # (Auto) 0.1, Baso # (Auto) 0.1, Sodium 131 L, Potassium 3.5, Chloride 102, Carbon Dioxide 21 L, Anion Gap 11.5, BUN 14, Creatinine 0.90, Estimated Creat Clear 40, Estimated GFR 61, Est GFR ( Amer) 74, Glucose 122 H, Calcium 9.1, Total Bilirubin 0.7, AST 32, ALT 32, Alkaline Phosphatase 60, Troponin I < 0.01, Total Protein 6.5, Albumin 4.0, Globulin 2.5, Albumin/Globulin Ratio 1.6 03/09/24 16:00: Troponin I < 0.01 03/09/24 17:24: Specimen Source Right radial, O2 % Ra, ABG pH 7.55 H, ABG pCO2 23.9 L, ABG pO2 82.8, ABG HCO3 20.3 L, ABG Total CO2 21.0 L, ABG O2 Saturation 97, ABG Base Excess -2.1, Hakeem Test Acceptable 03/09/24 17:50: D-Dimer 0.62 H I & O for Last 24 hours: Intake & Output 03/07/24 03/08/24 03/09/24 03/10/24 11:59 11:59 11:59 11:59 Output Total 0 / 0 Balance 0 / 0 Weight 118 lb Intake & Output 03/07/24 03/08/24 03/09/24 03/10/24 11:59 11:59 11:59 11:59 Weight 118 lb *Routine HEENT Exam Head: Present normocephalic and atraumatic Eye: Present EOMI ENT: Present mucous membranes moist *Routine Respiratory Exam Respiratory: Present rhonchi, normal respiratory effort and symmetric chest movement Comments: Minimal expiratory rhonchi *Routine Cardiovascular Exam Cardiovascular: Present RRR, Normal S1 and Normal S2 *Routine Abdominal Exam Abdominal: Present soft and normoactive bowel sounds *Routine Extremities Exam Comments: Good distal perfusion. No edema. No clubbing Osteoarthritic changes to joints *Routine Neurological Exam Neurological: Present alert and oriented X3 Comments: Very talkative. Pleasant. Results Data Completed and Pending Labs on day of discharge: Labs from last 24 hours 03/09/24 03/09/24 03/09/24 18:25 17:50 17:24 WBC RBC Hgb Hct MCV MCH MCHC RDW Plt Count MPV Neut % (Auto) Lymph % (Auto) [place] % (Auto) Eos % (Auto) Baso % (Auto) Neut # (Auto) Lymph # (Auto) [place] # (Auto) Eos # (Auto) Baso # (Auto) D-Dimer 0.62 H Specimen Source Right radial O2 % Ra ABG pH 7.55 H ABG pCO2 23.9 L ABG pO2 82.8 ABG HCO3 20.3 L ABG Total CO2 21.0 L ABG O2 Saturation 97 ABG Base Excess -2.1 Hakeem Test Acceptable Sodium Potassium Chloride Carbon Dioxide Anion Gap BUN Creatinine Estimated Creat Clear Estimated GFR Est GFR ( Amer) Glucose Calcium Total Bilirubin AST ALT Alkaline Phosphatase Troponin I < 0.01 Total Protein Albumin Globulin Albumin/Globulin Ratio HIV Ag/Ab Combo Qual 03/09/24 03/09/24 03/09/24 16:00 12:56 12:54 WBC 6.5 RBC 2.91 L Hgb 7.3 L Hct 23.1 L MCV 79.4 L MCH 25.1 L MCHC 31.6 L RDW 15.8 Plt Count 434 H MPV 8.0 Neut % (Auto) 62.0 Lymph % (Auto) 24.7 [place] % (Auto) 10.4 H Eos % (Auto) 1.8 Baso % (Auto) 0.8 Neut # (Auto) 4.1 Lymph # (Auto) 1.6 [place] # (Auto) 0.7 Eos # (Auto) 0.1 Baso # (Auto) 0.1 D-Dimer Specimen Source O2 % ABG pH ABG pCO2 ABG pO2 ABG HCO3 ABG Total CO2 ABG O2 Saturation ABG Base Excess Hakeem Test Sodium 131 L Potassium 3.5 Chloride 102 Carbon Dioxide 21 L Anion Gap 11.5 BUN 14 Creatinine 0.90 Estimated Creat Clear 40 Estimated GFR 61 Est GFR ( Amer) 74 Glucose 122 H Calcium 9.1 Total Bilirubin 0.7 AST 32 ALT 32 Alkaline Phosphatase 60 Troponin I < 0.01 < 0.01 Total Protein 6.5 Albumin 4.0 Globulin 2.5 Albumin/Globulin Ratio 1.6 HIV Ag/Ab Combo Qual Negative DS: Diagnosis Discharge Diagnosis (1) Anemia: Status: Acute Code(s): D64.9 - Anemia, unspecified Qualifiers: Anemia type: other cause Other causes of anemia: acute posthemorrhagic Qualified Code(s): D62 - Acute posthemorrhagic anemia Problem details: Not sure anemia is related to exclusively vaginal bleeding. She states this is improving. Agree with [employer] for no need for intervention at this point. I am unclear about why patient is on Xarelto. Cardiology notes record atrial fibrillation but I can see no actual A-fib either on a Holter report that I read last year or any EKG recently. Patient states she is on the blood thinner so I do not have a heart attack. This may need to be readdressed with primary family practice office. I do not think her shortness of air is from the anemia and this seems to be perhaps a more chronic problem. I think this would be best worked up as an outpatient, I do not see a need for active transfusion at this point given normal vital signs. (2) Dyspnea on exertion: Status: Chronic Code(s): R06.09 - Other forms of dyspnea Problem details: I reviewed previous pulmonary notes. PFTs were noted and read as normal but patient does have improved FEV/FVC ratio after bronchodilation and also had small vessel improvement with bronchodilation. She does not think that the current albuterol prescribed by nurse practitioner and her family care office has helped, I actually think trial of a steroid inhaler would be reasonable to do but we will leave this up to her primary care office. I do think she has evidence of a bronchitis. She recently finished cefdinir and did not think it helped. Will administer a dose of IV steroids tonight in the hospital and IV Levaquin. If she is feeling this well tomorrow she can be discharged on p.o. therapy (3) Chronic cough: Status: Chronic Code(s): R05.3 - Chronic cough Problem details: Currently has improved with PPI. She does not really complain much of a cough today (4) Shortness of Breath: Status: Chronic Code(s): R06.02 - Shortness of breath Problem details: Nonexertional, she has been up and around the room without problems. D-dimer reassuring. Chest x-ray reviewed. ABG reassuring. Again I think this is probably more of an outpatient appropriate workup and will discharge tomorrow unless she worsens Appreciate consult from [employer], happy to be of assistance Meds Home Medications and Allergies Home Medications ?Medication ?Instructions ?Recorded ?Confirmed ?Type aspirin 81 mg tablet,delayed 81 mg PO Q OTHER DAY CAD 12/31/19 03/09/24 History release (Adult Aspirin Regimen) digoxin 250 mcg (0.25 mg) tablet 125 mcg PO DAILY arrythmia 12/31/19 03/09/24 History verapamil 120 mg tablet,extended 120 mg PO BID BP 12/31/19 03/09/24 History release simvastatin 40 mg tablet 40 mg PO DAILY Cholesterol 12/04/20 03/09/24 History metoprolol succinate 50 mg 50 mg PO DAILY HTN 04/01/21 03/09/24 History tablet,extended release 24 hr esomeprazole magnesium 40 mg 40 mg PO DAILY 07/12/23 03/09/24 History capsule,delayed release rivaroxaban 15 mg tablet 15 mg PO DAILY Blood thinner 07/19/23 03/09/24 History albuterol sulfate 90 mcg/actuation 1 puff inhalation QIDP PRN 01/11/24 03/09/24 History aerosol inhaler Shortness Of Breath Or Wheezing pantoprazole 40 mg tablet,delayed 40 mg PO ONCE 01/11/24 03/09/24 History release estradiol 0.01% (0.1 mg/gram) 0.5 appful vaginal .3x weekly 01/18/24 03/09/24 Rx vaginal cream (Estrace) #42.5 grams losartan 50 mg tablet 50 mg PO DAILY 03/09/24 03/09/24 History levofloxacin 500 mg tablet 500 mg PO DAILY #5 tabs 03/10/24 Rx prednisone 10 mg tablet 10 mg PO DAILY #5 tabs 03/10/24 Rx New Prescriptions to Start Prescriptions: levofloxacin Besson,Rito prednisone Besson,Rito Allergies Allergy/AdvReac Type Severity Reaction Status Date / Time No Known Allergies Allergy Verified 02/29/24 12:05 Discharge Plan Disposition Patient Disposition: Home, Self-Care Condition: Fair Follow up Plan Follow up with: Salvador Barrera MD [Primary Care Provider] - Enter time for follow up Prescriptions/Medication Reconciliation: New levofloxacin 500 mg tablet 500 mg PO DAILY Qty: 5 0RF prednisone 10 mg tablet 10 mg PO DAILY Qty: 5 0RF Continued digoxin 250 mcg (0.25 mg) tablet 125 mcg PO DAILY verapamil 120 mg tablet extended release 120 mg PO BID aspirin [Adult Aspirin Regimen] 81 mg tablet,delayed release (DR/EC) 81 mg PO Q OTHER DAY simvastatin 40 mg tablet 40 mg PO DAILY esomeprazole magnesium 40 mg capsule,delayed release(DR/EC) 40 mg PO DAILY Patient Comments: TAKE 1 CAPSULE BY MOUTH ONCE DAILY albuterol sulfate 90 mcg/actuation HFA aerosol inhaler 1 puff inhalation QIDP PRN (Reason: Shortness Of Breath Or Wheezing) Patient Comments: INHALE 1 PUFF BY MOUTH EVERY 4 HOURS NEEDED pantoprazole 40 mg tablet,delayed release (DR/EC) 40 mg PO ONCE Patient Comments: TAKE 1 TABLET BY MOUTH ONCE DAILY estradiol [Estrace] 0.01 % (0.1 mg/gram) cream 0.5 appful vaginal .3x weekly Qty: 42.5 2RF Rx Instructions: apply blueberry size amount 3x weekly vaginally losartan 50 mg tablet 50 mg PO DAILY Rx Instructions: Take 1 tablet by mouth once daily metoprolol succinate 50 MG tablet extended release 24 hr 50 mg PO DAILY rivaroxaban 15 mg tablet 15 mg PO DAILY Rx Instructions: must administer with evening meal Problem Reconciliation Problems Reviewed?: Yes Patient Discharge Instructions ACTIVITY: Continue current activity DIET: continue same diet Patient Instructions: DI for Shortness of Breath Print Language: Russian Providers Primary Care Provider: Salvador Barrera Admit Provider: Sena Plummer Attending Provider: Sena Plummer
[2024-03-10 08:32] LABS: Hematocrit 24.2 % (37.0-47.0); Hemoglobin 7.7 g/dL (12.2-16.2); Lymphocytes # 1.2 K/mm3 (0.7-4.5); Lymphocytes % 14.2 % (10-50); Mean Corpuscular HGB Conc 31.8 g/dL (31.8-35.4); Mean Corpuscular Volume 78.6 fl (81-99); Mean Platelet Volume 8.2 fl (7.4-10.4); Monocytes # 0.1 K/mm3 (0.1-1.0); Monocytes % 1.3 % (1.7-9.3); Neutrophils # 7.2 K/mm3 (1.8-7.8); Platelet Count 516 K/mm3 (142-424); Red Blood Count 3.08 M/mm3 (4.20-5.40); Red Cell Distribution Width 16.1 % (11.5-17.5); White Blood Count 8.6 K/mm3 (4.8-10.8)
[2024-03-10] MEDS: [UNRECOGNIZED DRUG - OTHER] 120 MG PO (08:39)
[2024-03-10] MEDS: RIVAROXABAN 15MG TABLET 15 MG PO (08:40)
[2024-03-10 08:41] LABS: Chloride 102 mmol/L (98-107); Potassium 3.7 mmoL/L (3.5-5.1); Sodium 131 mmol/L (136-145)
[2024-03-10 08:44] LABS: Blood Urea Nitrogen 20 mg/dl (7-17); Creatinine Clearance Estimated 40 mL/min (50-200); Estimated Glomerular Filt Rate 54 ml/min (>60); GFR (African American) 65 ML/MIN (>60)
[2024-03-10 08:45] LABS: Anion Gap 12.7 mEq/L (5-15); Calcium 9.1 mg/dl (8.4-10.2); Carbon Dioxide 20 mmol/L (22.0-30.0); Glucose 148 mg/dl (74-100)
--- NOTE | 2024-03-10 09:00 | PC.NURSE ---
IV saline lock d/c'd from left arm, catheter intact. 2x2 gauze and coban applied. Tolerated well.
[2024-03-10 09:20] VITALS: O2SAT 97
--- NOTE | 2024-03-10 09:34 | PC.NURSE ---
Telemetry monitoring and strip readings done by 2nd floor ([employer])
--- NOTE | 2024-03-10 10:16 | PC.NURSE ---
Pt assisted (ambulatory) to ER entrance for her daughter to pick her up.
[2024-03-11 13:08] LABS: HCV Ab Non Reactive (Non Reactive)
--- NOTE | 2024-03-12 11:35 | SW/DCPLANNER ---
Spoke with patient on the phone. Patient stated that she is weak and is coming to her Dr today at 1:30 for a blood transfusion. Patient stated that she is aware of her upcoming appointments and that she was able to get her new medicine picked up. Patient stated that she has no concerns or questions at this time. Lianna Salguero
== END 2024-03-10 10:21 | disposition home or self-care (01) ==
LOC: ER 14:01 → OB 14:03
PROVIDERS: Internal Medicine Adolescent Medicine; Admitting Provider Obstetrics & Gynecology; Emergency Provider Emergency Medicine; PCP Family Medicine; Visit Provider Obstetrics & Gynecology
DX: D62 Acute posthemorrhagic anemia (principal); R05.3 Chronic cough; N81.3 Complete uterovaginal prolapse; N32.81 Overactive bladder; I10 Essential (primary) hypertension; I34.0 Nonrheumatic mitral (valve) insufficiency; I35.1 Nonrheumatic aortic (valve) insufficiency; I48.91 Unspecified atrial fibrillation
CPT/HCPCS: 36415; 71046; 80048; 80053; 82803; 84484; 85025; 85378; 86803; 87389; 93005; 99285; G0378; J1956; J2919

== ENCOUNTER 2024-03-13 08:27 | Inpatient (IN) | payer MEDICARE, MEDICAID, SELFPAY ==
[2024-03-13] VITALS (43 sets, daily range): BP systolic 82–160; BP diastolic 49–82; PULSE 109–150; RESP 15–43; TEMP 36.6–43; O2SAT 89–121; BMI 25.7
--- NOTE | 2024-03-13 08:30 | ECG_ITS ---
APPROVED REPORT Exam: Resting ECG HR:151 bpm ECG Measurements Heart Rate 151 AXES NM 98 P -8 QRSd 117 QRS 45 QT 276 T 35 QTc 362 Conclusion SINUS TACHYCARDIA WITH SHORT NM INTERVAL WITH FREQUENT SUPRAVENTRICULAR PREMATURE COMPLEXES, POSSIBLE ATRIAL FLUTTER INCOMPLETE RIGHT BUNDLE BRANCH BLOCK [90+ ms QRS DURATION, TERMINAL R IN V1/V2, 40+ ms S IN I/aVL/V4/V5/V6] No ST elevation in anatomical contiguous leads Electronically signed by : MARY BOSTON, 03/17/2024 08:10:49
--- NOTE | 2024-03-13 08:33 | XR_ITS ---
PROCEDURE INFORMATION: Exam: XR Chest Exam date and time: 03/13/2024 9:00 AM Age: 78 years old Clinical indication: Shortness of breath; Additional info: SOB TECHNIQUE: Imaging protocol: Radiologic exam of the chest. Views: 1 view. COMPARISON: CR XR CHEST 2V 03/09/2024 12:56 PM FINDINGS: Lungs: COPD changes. No focal lung infiltrate. Hypoventilatory changes. Pleural spaces: Unremarkable. No pleural effusion. No pneumothorax. Heart/Mediastinum: Unremarkable. No cardiomegaly. Bones/joints: Diffuse degenerative change of the visualized osseous structures. Intraperitoneal space: Pneumoperitoneum. IMPRESSION: 1. No acute cardiopulmonary findings. 2. Pneumoperitoneum which is better discussed on the same-day CT of the abdomen and pelvis.
--- NOTE | 2024-03-13 08:33 | CT_ITS ---
PROCEDURE INFORMATION: Exam: CT Abdomen And Pelvis With Contrast Exam date and time: 03/13/2024 9:00 AM Age: 78 years old Clinical indication: Abdominal pain; Generalized; Additional info: Severe abd pain, prev bleeding pessary controlled TECHNIQUE: Imaging protocol: Computed tomography of the abdomen and pelvis with contrast. Radiation optimization: All CT scans at this facility use at least one of these dose optimization techniques: automated exposure control; mA and/or kV adjustment per patient size (includes targeted exams where dose is matched to clinical indication); or iterative reconstruction. Contrast material: ISOVUE; Contrast volume: 75 ml; Contrast route: IV; COMPARISON: CT ABDOMEN PELVIS W CON 02/01/2022 9:44 AM FINDINGS: Tubes, catheters and devices: Pessary device is in place. Lungs: Basilar scarring/atelectasis. A few small regions of COPD changes of the lung bases are seen. Heart: Base of heart is unremarkable as visualized. Coronary arteries: Heavy coronary calcified atherosclerotic disease. Esophagus: Patulous and fluid-filled esophagus. Liver: Normal. No mass. Gallbladder and biliary ducts: Prominent gallbladder without significant surrounding inflammatory change. Pancreas: Normal. No ductal dilation. Spleen: Incidental splenule. Adrenal glands: Normal. No mass. Kidneys and ureters: Multiple benign bilateral renal cysts. A few renal hypodensities are too small to characterize by modality, statistically likely to represent benign cysts. Stomach and bowel: Severe colonic stool burden. Sigmoid colon demonstrates wall thickening with surrounding inflammatory change. Concentrated pneumoperitoneum about the inflammatory change of the sigmoid colon consistent with rupture. A few scattered colonic diverticula are seen. Diffuse small bowel reactive changes/enteritis. Additional reactive changes of the large bowel is seen about the transverse colon. Appendix: No evidence of appendicitis. Intraperitoneal space: Additional regions of pneumoperitoneum are seen. Free fecal matter within the pelvis about the inflamed sigmoid colon and in the lower central abdomen. Free fluid within the lower abdomen is seen with complex attenuation. Thickening of the peritoneal reflections. Vasculature: Mild atherosclerotic disease of the visualized aorta. Infrarenal abdominal aortic ectasia not reaching aneurysm size. Lymph nodes: Unremarkable. No enlarged lymph nodes. Urinary bladder: Urinary bladder is distended. Reproductive: Early organizing posterior pelvic collection is seen between the uterus and rectum measuring about 9.0 x 4.2 cm (series 3, image 97), demonstrates U shaped morphology wrapping around the posterior uterus. Bones/joints: Degenerative change of the visualized osseous structures. No acute or aggressive osseous abnormality. Soft tissues: Unremarkable. IMPRESSION: 1. Likely sigmoid diverticulitis versus colitis with superimposed hollow visceral rupture given pneumo-hemoperitoneum and free stool within the lower abdomen/upper pelvis. Difficult to exclude underlying neoplasm as possible source of inflammatory change and rupture. Recommend urgent surgical consultation. 2. Likely early organizing abscess within the pelvis draped about the posterior uterus. 3. Reactive enterocolitis as highlighted above. 4. Thickening of the peritoneal reflections suggestive of peritonitis 5. Patulous fluid-filled esophagus which places the patient at aspiration risk. COMMENTS: Consistent with the [employer]'s Incidental Findings Committee white paper (J Am Danisha Radiol 2018): Any incidental renal lesion less than 1 cm or classified as too small to characterize, or any incidental cystic renal lesion characterized as simple-appearing, is likely benign. No follow-up imaging is recommended for these lesions per consensus recommendations based on imaging criteria.
--- NOTE | 2024-03-13 08:38 | ED_ITS ---
Discharge Plan Disposition Patient Disposition: Admitted Condition: Critical Clinical Impressions Clinical Impression: Rupture of colon, Sepsis, Elevated troponin Discharge ED Provider: Zaid Garcia HPI General Chief Complaint: Shortness of Breath/Dyspnea Stated Complaint: SOB Time Seen by Provider: 03/13/24 08:27 History of Present Illness HPI narrative: Patient is a 78-year-old female with past medical history of pelvic organ prolapse with pessary, atrial fibrillation on anticoagulation who presents emergency department for evaluation of abdominal pain. Onset was acute, overnight, severe and generalized. Patient does not have any abdominal surgical history. There is associated shortness of breath with the pain as she feels she cannot catch her breath. No chest pain. No cough that is worse than her baseline. No chest pain, no vomiting, no back pain, no other acute complaints at this time. Related Data Home Medications ?Medication ?Instructions ?Recorded ?Confirmed aspirin 81 mg tablet,delayed 81 mg PO Q OTHER DAY CAD 12/31/19 03/13/24 release (Adult Aspirin Regimen) digoxin 250 mcg (0.25 mg) tablet 125 mcg PO DAILY arrythmia 12/31/19 03/13/24 verapamil 120 mg tablet,extended 120 mg PO BID BP 12/31/19 03/13/24 release simvastatin 40 mg tablet 40 mg PO DAILY Cholesterol 12/04/20 03/13/24 metoprolol succinate 50 mg 50 mg PO DAILY HTN 04/01/21 03/13/24 tablet,extended release 24 hr esomeprazole magnesium 40 mg 40 mg PO DAILY 07/12/23 03/13/24 capsule,delayed release rivaroxaban 15 mg tablet 15 mg PO DAILY Blood thinner 07/19/23 03/13/24 albuterol sulfate 90 mcg/actuation 1 puff inhalation QIDP PRN 01/11/24 03/13/24 aerosol inhaler Shortness Of Breath Or Wheezing pantoprazole 40 mg tablet,delayed 40 mg PO ONCE 01/11/24 03/13/24 release losartan 50 mg tablet 50 mg PO DAILY 03/09/24 03/13/24 Previous Rx's ?Medication ?Instructions ?Recorded estradiol 0.01% (0.1 mg/gram) 0.5 appful vaginal .3x weekly 01/18/24 vaginal cream (Estrace) #42.5 grams levofloxacin 500 mg tablet 500 mg PO DAILY #5 tabs 03/10/24 prednisone 10 mg tablet 10 mg PO DAILY #5 tabs 03/10/24 Allergies Allergy/AdvReac Type Severity Reaction Status Date / Time No Known Allergies Allergy Verified 02/29/24 12:05 [facility] Disclaimer: The information contained in this section may have been updated after the patient was seen, as this information can be updated by other users. 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) No significant family history Social History Smoking Status: Never smoker alcohol intake: never counseling provided: none (Patient does not smoke or use alcohol ) substance use type: denies use current occupational status: retired Travel in the last 8 weeks: None household members: family housing: house caffeine: Yes do you feel safe at home: Yes victim of physical abuse: No victim of emotional abuse: No victim of sexual abuse: No Have you lived/traveled outside US in past 30 days?: No Contact w/someone who lives/traveled outside US past 30 days?: No Exposure to someone with infectious disease in past 14 days?: No Do you have a fever (greater than 100.4 F or 38 C)?: No Have you tested positive for COVID-19: No Exposed to someone with COVID-19 in past 14 days?: No Do you have a sore throat?: No Do you have a cough?: No Do you have any weakness?: Yes Do you have any diarrhea?: No Are you experiencing any unusual bleeding?: No Do you have any muscle aches/pain?: No Do you have any abdominal pain?: No Are you experiencing loss of taste or smell?: No Other 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 Have you received the Flu Vaccine for this season: No Have you received the Pneumonia Vaccine: No ROS Obtained: Yes Systems reviewed as appropriate & no additional complaints except as documented Physical Exam General General appearance: alert and in distress Head Head exam: atraumatic and normocephalic Eye Eye exam: Present PERRL ENT ENT exam: Present mucous membranes moist Neck Neck exam: Present normal inspection Chest Chest inspection: Present normal inspection and symmetric chest wall rise Respiratory Respiratory exam: Present normal lung sounds bilaterally and other (Tachypnea) Cardiovascular Cardiovascular exam: Present tachycardia and irregular rhythm Abdominal Exam Abdominal exam: Present distention (Mild), tenderness (Diffuse) and guarding (Involuntary) Extremities Exam Extremities exam: Present normal inspection Neurological Exam Neurological exam: Present alert Psychiatric Psychiatric exam: Present normal affect Skin Skin exam: Present warm and dry HEART Score HEART Score HEART Score assessment performed?: Yes History (anamnesis): Slightly suspicious ECG: Non-specific disturbance Age: >65 years Risk factors: 3 or more risk factors Troponin: 1-3x normal limit HEART Score: 6 Critical Care Critical Care Time Critical Care Time: Yes Attestation: On 03/13/24, the high probability of a clinically significant, sudden or life threatening deterioration of the following system(s) required my full and direct attention, intervention and personal management. The time I documented below is in addition to time spent performing reported procedures but includes the following listed in this critical care notation. Total Time Total Critical Care Time: 45 Medical Decision Making Rui Inquiry Pt receiving controlled substance: No Vital Signs Vital Signs: 03/13/24 08:38 03/13/24 09:11 03/13/24 09:30 Temperature 98.2 F Temperature Source Oral Pulse Rate 133 H 133 H Pulse Rate [Right Brachial] 150 H Respiratory Rate 36 H 35 H 43 H Blood Pressure 149/62 H 130/62 Blood Pressure [Right Arm] 160/82 H Blood Pressure Mean [Right Arm] 108 Blood Pressure Source Blood Pressure Source [Right Arm] Automatic Cuff Blood Pressure Position Blood Pressure Position [Right Arm] Sitting 02 Sat by Pulse Oximetry 97 96 97 Oxygen Delivery Method Room Air Nasal Cannula Nasal Cannula Oxygen Flow Rate (LPM) 1 1 03/13/24 10:00 03/13/24 10:01 03/13/24 10:23 Temperature 98.3 F Temperature Source Pulse Rate 130 H 132 H 127 H Pulse Rate [Right Brachial] Respiratory Rate 30 H 29 H 30 H Blood Pressure 123/60 123/60 116/60 Blood Pressure [Right Arm] Blood Pressure Mean [Right Arm] Blood Pressure Source Automatic Cuff Automatic Cuff Blood Pressure Source [Right Arm] Blood Pressure Position Sitting Sitting Blood Pressure Position [Right Arm] 02 Sat by Pulse Oximetry 96 94 L Oxygen Delivery Method Nasal Cannula Nasal Cannula Nasal Cannula Oxygen Flow Rate (LPM) 2 2 Lab Data Labs: Lab Results 03/13/24 08:34: WBC 1.8 L*, RBC 3.13 L, Hgb 7.9 L, Hct 25.7 L, MCV 82.1, MCH 25.2 L, MCHC 30.7 L, RDW 17.4, Plt Count 540 H, MPV 8.4, Neut % (Auto) 72.3, Lymph % (Auto) 23.2, [place] % (Auto) 3.9, Eos % (Auto) 0.0 L, Baso % (Auto) 0.0 L, Neut # (Auto) 1.3 L, Lymph # (Auto) 0.4 L, [place] # (Auto) 0.1, Eos # (Auto) 0.0, Baso # (Auto) 0.0, Sodium 134 L, Potassium 3.2 L, Chloride 102, Carbon Dioxide 12 L, Anion Gap 23.2 H, BUN 24 H, Creatinine 1.20 H, Estimated Creat Clear 34, E stimated GFR 44 L, Est GFR ( Amer) 53 L, Glucose 198 H, Calcium 8.5, T otal Bilirubin 1.9 H, AST 42 H, ALT 46, Alkaline Phosphatase 42, Troponin I 0.06 H, C-Reactive Protein 45.1 H, Total Protein 6.1 L, Albumin 3.9, Globulin 2.2, Albumin/Globulin Ratio 1.8, Lipase 97, Digoxin 0.80, SARS-CoV-2 (PCR) Not detected, Influenza A Untype (PCR) Not detected, Influenza Type B (PCR) Not detected, Blood Type Confirm A Positive 03/13/24 08:44: Blood Type A Positive, Antibody Screen Negative, Crossmatch (AHG) See Detail 03/13/24 08:47: VBG pH 7.19 L, VBG pCO2 32.2 L, VBG pO2 39.2, VBG HCO3 12.1 L, V BG Total CO2 13.1 L, VBG O2 Saturation 62.7, VBG Base Excess -16.0 L, VBG Lactic Acid 9.6 H 03/13/24 09:24: Urine Color Yellow, Urine Appearance Clear, Urine pH 6.0, Ur Specific [place] 1.020, Urine Protein Negative, Urine Glucose (UA) Negative, Urine Ketones Negative, Urine Blood 1+ A, Urine Nitrate Negative, Urine Bilirubin Negative, Urine Urobilinogen 0.2, Ur Leukocyte Esterase Negative, Urine RBC 3-5, Urine WBC Occasional, Ur Squamous Epith Cells Occasional, Urine Bacteria Trace 03/13/24 08:34 03/13/24 08:34 Response Orders (Tests/Meds): ED MEDICATIONS Generic Name Dose Route Start Last Admin Trade Name Freq PRN Reason Stop Dose Admin Miscellaneous 1 each 03/13/24 09:00 Vancomycin Consult Request NOTAPPLIC 04/12/24 08:59 [facility]SULT [facility] Discontinued Medications Generic Name Dose Route Start Last Admin Trade Name Freq PRN Reason Stop Dose Admin Acetaminophen 1,000 mg 03/13/24 08:36 03/13/24 08:42 Acetaminophen 1,000mg/100ml Vial IV 03/13/24 08:37 1,000 mg ONCE ONE Administration Hydromorphone HCl 1 mg 03/13/24 09:31 03/13/24 09:33 Hydromorphone 2mg/Ml Syringe IV 03/13/24 09:32 1 mg ONCE ONE Administration Lactated Ringer's 1,000 mls @ 999 mls/hr 03/13/24 08:33 03/13/24 08:42 Lactated Ringer's 1000 Ml Bag IV 03/13/24 09:33 999 mls/hr .Q1H1M ONE Administration Piperacillin Sod/Tazobactam 100 mls @ 200 mls/hr 03/13/24 08:50 03/13/24 09:30 Sod 4.5 gm/ Sodium Chloride IV 03/13/24 09:19 Not Given ONCE ONE Lactated Ringer's 1,620 mls @ 810 mls/hr 03/13/24 08:53 03/13/24 09:30 Lactated Ringer's 1000 Ml Bag 30 ml/kg infuse over 2 hr (1620 ml) 03/13/24 10:52 810 mls/hr IV Administration .Q2H ONE Vancomycin HCl 1,000 mg/ 250 mls @ 125 mls/hr 03/13/24 09:00 03/13/24 09:44 Sodium Chloride IV 03/13/24 10:59 125 mls/hr ONCE ONE Administration Piperacillin Sod/Tazobactam 100 mls @ 200 mls/hr 03/13/24 09:30 03/13/24 09:32 Sod 4.5 gm/ Sodium Chloride IV 03/13/24 09:59 200 mls/hr ONCE ONE Administration Iopamidol 75 ml 03/13/24 09:02 03/13/24 09:03 Iopamidol-370 (76%);100ml Bottle IV 03/13/24 09:03 75 ml ONCE ONE Administration Morphine Sulfate 4 mg 03/13/24 08:33 03/13/24 08:41 Morphine 4mg/Ml Syringe IV 03/13/24 08:34 4 mg ONCE ONE Administration Ondansetron HCl 4 mg 03/13/24 08:33 03/13/24 08:42 Ondansetron 4mg/2ml Vial IV 03/13/24 08:34 4 mg ONCE ONE Administration Sodium Chloride 10 ml 03/13/24 09:02 03/13/24 09:03 Sodium Chloride 0.9% 10ml Syr (Rad Only) IV 03/13/24 09:03 10 ml ONCE ONE Administration ORDERS Category Date Time Status Type and Screen Stat BBK 03/13/24 08:[address] abdomen pelvis w con Stat Cat Scan 03/13/24 08:33 Completed CXR --portable [XR chest portable] Stat Exams 03/13/24 08:33 Completed CBC w/Auto Diff [Complete Blood Count Auto Diff] Stat Lab 03/13/24 08:34 Completed CMP [Comprehensive Metabolic Panel] Stat Lab 03/13/24 08:34 Completed CRP [C-Reactive Protein] Stat Lab 03/13/24 08:34 Completed DIG [Digoxin] Stat Lab 03/13/24 08:34 Completed Lipase Stat Lab 03/13/24 08:34 Completed Rapid PCR Covid and Flu A/B Stat Lab 03/13/24 08:34 Completed Trop I [Troponin I] Stat Lab 03/13/24 08:34 Completed Troponin I Q3H Lab 03/13/24 11:45 Ordered Troponin I Q3H Lab 03/13/24 14:45 Ordered UA [Urinalysis and Microscopic] Stat Lab 03/13/24 09:24 Completed Blood Culture Stat Micro 03/13/24 08:39 Received VBG [Venous Blood Gas] Stat RT 03/13/24 08:47 Completed ECG Data Tracing #1: ECG Narrative: Independently interpreted by me rate is 151, rhythm is irregular, atrial fibrillation with rapid ventricular response, no ST elevation in anatomical contiguous leads, QTc 362. MDM Narrative Medical Decision Narrative: In summary patient is a 78-year-old female with past medical history described above who presents emergency department for evaluation of severe abdominal pain and associated shortness of breath. Patient is tachycardic upon arrival acceptable blood pressure, diffuse abdominal tenderness. [id number] ultrasound at bedside was limited shows normal ejection fraction no large pericardial effusion, given this patient will be given crystalloid resuscitation and pain control to see what affects her tachycardia rather than rate control in the setting of atrial fibrillation with rapid ventricular spots I do not think that she is tachycardic to the point where it is limiting her diastolic filling. Patient was evaluated in the emergency department the other day by me and DARRYL, it was stated at that time she had been going through a pad 5-6 times a day with bleeding hemoglobin in mid sevens and shortness of breath workup largely unremarkable in the ER therefore [employer] was consulted and bleeding stopped prior to their evaluation patient denied bleeding in their note and she did not require transfusion at that time. She went home and had a symptom-free interval prior to presenting here. Hematologic labs be obtained VBG will be obtained blood cultures obtained. Patient will get chest x-ray at bedside and will undergo emergent CT imaging of the abdomen and pelvis. She does not have chest pain and had previous serial undetectable troponins so I doubt atypical ACS, my concern for abdominal catastrophe is high at this time. Differential includes ruptured hollow viscus, diverticulitis, appendicitis, among others. Initial interventions include pressure bag crystalloid bolus, morphine, Tylenol, Zofran, vancomycin, Zosyn. Initial CBC resulted, patient has leukopenia without absolute neutropenia. No transfusional anemia. Patient will be converted to sepsis bolus fluids at this time. Initial radiology read time suspected to be greater than 300 minutes the case was discussed with Dr. Hurtado given that on my informal interpretation I see free air and fluid in the abdomen concerning for ruptured hollow viscus. He will evaluate the patient. After contacting radiology due to my concern and patient needing to go to the operating room at this time I had interactive discussion regarding management patient has ruptured proximal sigmoid colon for which there are different possibilities of the etiology. Upon repeat evaluation tissue perfusion assessment performed prior to going to the operating room we will continue sepsis bolus fluids. Patient will proceed to operating room at this time. Case was subsequently discussed with Dr. Harrison regarding management and he agrees the patient will benefit from in- house evaluation given this case was discussed with hospital medicine regarding management patient will be admitted to their service for continued evaluation at this time.
[2024-03-13] MEDS: MORPHINE 4MG/ML SYRINGE 4 MG IV (08:41)
[2024-03-13] MEDS: ONDANSETRON 4MG/2ML VIAL 4 MG IV ×3 (08:42→23:33)
[2024-03-13] MEDS: LACTATED RINGERS 1000ML 1,000 ML 999 ML IV (08:42)
[2024-03-13] MEDS: ACETAMINOPHEN 1,000MG/100ML VIAL 1000 MG IV (08:42)
[2024-03-13 08:44] LABS: Coronavirus 19, PCR Not Detected (NotDetected); Influenza A, PCR Not Detected (NotDetected); Influenza B, PCR Not Detected (NotDetected)
[2024-03-13 08:47] LABS: Hematocrit 25.7 % (37.0-47.0); Hemoglobin 7.9 g/dL (12.2-16.2); Lymphocytes # 0.4 K/mm3 (0.7-4.5); Lymphocytes % 23.2 % (10-50); Mean Corpuscular HGB Conc 30.7 g/dL (31.8-35.4); Mean Corpuscular Hemoglobin 25.2 pg (27.0-31.2); Mean Corpuscular Volume 82.1 fl (81-99); Mean Platelet Volume 8.4 fl (7.4-10.4); Monocytes # 0.1 K/mm3 (0.1-1.0); Monocytes % 3.9 % (1.7-9.3); Neutrophils # 1.3 K/mm3 (1.8-7.8); Neutrophils % 72.3 % (37.0-80.0); Platelet Count 540 K/mm3 (142-424); Red Blood Count 3.13 M/mm3 (4.20-5.40); Red Cell Distribution Width 17.4 % (11.5-17.5); White Blood Count 1.8 K/mm3 (4.8-10.8)
[2024-03-13 08:56] LABS: VBG HCO3 12.1 mmol/L (23-30); VBG Oxygen Saturation 62.7 % (50-70); VBG PCO2 32.2 mmol/L (35-51); VBG PO2 39.2 mmol/L (28-40); VBG Total CO2 13.1 mmol/L (23-27)
[2024-03-13 08:59] LABS: Lactate Venous 9.6 mmol/L (0.4-2.0); VBG PH 7.19 mmol/L (7.31-7.41)
[2024-03-13] MEDS: IOPAMIDOL-370 (76%);100ML BOTTLE 75 ML IV (09:03)
[2024-03-13] MEDS: SODIUM CHLORIDE 0.9% 10ML SYR (RAD ONLY) 10 ML IV (09:03)
--- NOTE | 2024-03-13 09:08 | PC.NURSE ---
PT BACK FROM CT
[2024-03-13 09:19] LABS: Alanine Aminotransferase 46 U/L (12-78); Albumin Level 3.9 g/dl (3.5-5.0); Albumin/Globulin Ratio 1.8 (1.1-1.8); Alkaline Phosphatase 42 U/L (38-126); Anion Gap 23.2 mEq/L (5-15); Aspartate Amino Transferase 42 U/L (14-36); Bilirubin,Total 1.9 mg/dl (0.2-1.3); Blood Urea Nitrogen 24 mg/dl (7-17); Calcium 8.5 mg/dl (8.4-10.2); Carbon Dioxide 12 mmol/L (22.0-30.0); Chloride 102 mmol/L (98-107); Creatinine Clearance Estimated 34 mL/min (50-200); Estimated Glomerular Filt Rate 44 ml/min (>60); GFR (African American) 53 ML/MIN (>60); Globulin 2.2 g/dL (1.3-3.2); Glucose 198 mg/dl (74-100); Lipase 97 U/L (23-300); Potassium 3.2 mmoL/L (3.5-5.1); Sodium 134 mmol/L (136-145); Total Protein,Serum 6.1 g/dl (6.3-8.2)
--- NOTE | 2024-03-13 09:20 | PC.NURSE ---
Bladder scan shows >400 ml.
[2024-03-13 09:24] LABS: C-Reactive Protein 45.1 mg/L (0-4)
--- NOTE | 2024-03-13 09:26 | PC.NURSE ---
called house to page in surgery per Dr. Garcia for exploratory lap
[2024-03-13 09:28] LABS: Microscopic, Urine URINE MICROSCOPIC (MICROSCOPIC)
--- NOTE | 2024-03-13 09:29 | PC.NURSE ---
PT PLACED IN GOWN TO PREPARE FOR SURGERY
[2024-03-13] MEDS: LACTATED RINGERS 810 ML IV (09:30)
[2024-03-13] MEDS: PIPERACILLIN/TAZO 4.5 GM in 0.9 % SODIUM CHLORIDE 100 ML IV (09:32)
[2024-03-13 09:33] LABS: Troponin I 0.06 ng/ml (0.00-0.034)
[2024-03-13] MEDS: HYDROMORPHONE 2MG/ML SYRINGE 1 MG IV (09:33)
--- NOTE | 2024-03-13 09:33 | PC.NURSE ---
SPEAKING TO [facility] ON A CRITICAL RESULT FROM CT SCAN
[2024-03-13] MEDS: VANCOMYCIN HCL 1,000 MG in 0.9 % SODIUM CHLORIDE 250 ML 125 MG IV (09:44)
--- NOTE | 2024-03-13 09:45 | PC.NURSE ---
Dr. Hurtado at bedside.
[2024-03-13 09:51] LABS: Appearance,Urine CLEAR (Clear); Bilirubin,Urine Negative (Negative); Blood, Urine 1+ (Negative); Color,Urine YELLOW (Yellow); Glucose,Urine (UA) Negative (Negative); Ketones,Urine Negative (Negative); Leukocyte Esterase,Urine Negative (Negative); Nitrate,Urine Negative (Negative); Protein,Urine Negative (Negative); Urobilinogen,Urine 0.2 EU/dl (0.2)
--- NOTE | 2024-03-13 09:51 | PC.NURSE ---
DR VALADEZ AT BEDSIDE
[2024-03-13 09:57] LABS: Bacteria,Urine Trace /lpf; Squamous Epithelial Cell,Urine Occasional #/hpf (0-5); WBC,Urine Occasional #/hpf (0-3)
--- NOTE | 2024-03-13 10:09 | EXP.SURG.CON ---
History of Present Illness *Admission Date: 03/13/24 *Reason for visit:: Sigmoid diverticulosis with free air *History of present illness: This is a 78-year-old female seen in consultation after presenting to the emergency department with increasing abdominal pain. Please see HPI from emergency department evaluation forwarded below. As part of her evaluation a CT scan was obtained. Radiographic evidence consistent with severe sigmoid diverticulitis with free intra-abdominal air/fluid noted. Forwarded from emergency department evaluation: Patient is a 78-year-old female with past medical history of pelvic organ prolapse with pessary, atrial fibrillation on anticoagulation who presents emergency department for evaluation of abdominal pain. Onset was acute, overnight, severe and generalized. Patient does not have any abdominal surgical history. There is associated shortness of breath with the pain as she feels she cannot catch her breath. No chest pain. No cough that is worse than her baseline. No chest pain, no vomiting, no back pain, no other acute complaints at this time. [facility] Disclaimer: The information contained in this section may have been updated after the patient was seen, as this information can be updated by other users. 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) No significant family history Social History Smoking Status: Never smoker alcohol intake: never counseling provided: none (Patient does not smoke or use alcohol ) substance use type: denies use current occupational status: retired Travel in the last 8 weeks: None household members: family housing: house caffeine: Yes do you feel safe at home: Yes victim of physical abuse: No victim of emotional abuse: No victim of sexual abuse: No Have you lived/traveled outside US in past 30 days?: No Contact w/someone who lives/traveled outside US past 30 days?: No Exposure to someone with infectious disease in past 14 days?: No Do you have a fever (greater than 100.4 F or 38 C)?: No Have you tested positive for COVID-19: No Exposed to someone with COVID-19 in past 14 days?: No Do you have a sore throat?: No Do you have a cough?: No Do you have any weakness?: Yes Do you have any diarrhea?: No Are you experiencing any unusual bleeding?: No Do you have any muscle aches/pain?: No Do you have any abdominal pain?: No Are you experiencing loss of taste or smell?: No Meds Home Medications and Allergies Home Medications ?Medication ?Instructions ?Recorded ?Confirmed ?Type aspirin 81 mg tablet,delayed 81 mg PO Q OTHER DAY CAD 12/31/19 03/13/24 History release (Adult Aspirin Regimen) digoxin 250 mcg (0.25 mg) tablet 125 mcg PO DAILY arrythmia 12/31/19 03/13/24 History verapamil 120 mg tablet,extended 120 mg PO BID BP 12/31/19 03/13/24 History release simvastatin 40 mg tablet 40 mg PO DAILY Cholesterol 12/04/20 03/13/24 History metoprolol succinate 50 mg 50 mg PO DAILY HTN 04/01/21 03/13/24 History tablet,extended release 24 hr esomeprazole magnesium 40 mg 40 mg PO DAILY 07/12/23 03/13/24 History capsule,delayed release rivaroxaban 15 mg tablet 15 mg PO DAILY Blood thinner 07/19/23 03/13/24 History albuterol sulfate 90 mcg/actuation 1 puff inhalation QIDP PRN 01/11/24 03/13/24 History aerosol inhaler Shortness Of Breath Or Wheezing pantoprazole 40 mg tablet,delayed 40 mg PO ONCE 01/11/24 03/13/24 History release estradiol 0.01% (0.1 mg/gram) 0.5 appful vaginal .3x weekly 01/18/24 03/13/24 Rx vaginal cream (Estrace) #42.5 grams losartan 50 mg tablet 50 mg PO DAILY 03/09/24 03/13/24 History levofloxacin 500 mg tablet 500 mg PO DAILY #5 tabs 03/10/24 03/13/24 Rx prednisone 10 mg tablet 10 mg PO DAILY #5 tabs 03/10/24 03/13/24 Rx New Prescriptions to Start Prescriptions: Allergies Allergy/AdvReac Type Severity Reaction Status Date / Time No Known Allergies Allergy Verified 12/19/24 12:05 Exam (Inpt) Vital signs and Labs for Last 24 Hours: Temp Pulse Resp BP Pulse Ox O2 Del Method O2 Flow Rate 98.2 F 132 H 29 H 123/60 94 L Nasal Cannula 2 03/13/24 08:38 03/13/24 10:01 03/13/24 10:01 03/13/24 10:01 03/13/24 10:01 03/13/24 10:03/13/24 10:00 Laboratory Results - last 24 hr 03/13/24 08:34: WBC 1.8 L*, RBC 3.13 L, Hgb 7.9 L, Hct 25.7 L, MCV 82.1, MCH 25.2 L, MCHC 30.7 L, RDW 17.4, Plt Count 540 H, MPV 8.4, Neut % (Auto) 72.3, Lymph % (Auto) 23.2, [place] % (Auto) 3.9, Eos % (Auto) 0.0 L, Baso % (Auto) 0.0 L, Neut # (Auto) 1.3 L, Lymph # (Auto) 0.4 L, [place] # (Auto) 0.1, Eos # (Auto) 0.0, Baso # (Auto) 0.0, Sodium 134 L, Potassium 3.2 L, Chloride 102, Carbon Dioxide 12 L, Anion Gap 23.2 H, BUN 24 H, Creatinine 1.20 H, Estimated Creat Clear 34, Estimated GFR 44 L, Est GFR ( Amer) 53 L, Glucose 198 H, Calcium 8.5, Total Bilirubin 1.9 H, AST 42 H, ALT 46, Alkaline Phosphatase 42, Troponin I 0.06 H, C-Reactive Protein 45.1 H, Total Protein 6.1 L, Albumin 3.9, Globulin 2.2, Albumin/Globulin Ratio 1.8, Lipase 97, Digoxin 0.80, SARS-CoV-2 (PCR) Not detected, Influenza A Untype (PCR) Not detected, Influenza Type B (PCR) Not detected 03/13/24 08:44: Blood Type A Positive, Antibody Screen Negative 03/13/24 08:47: VBG pH 7.19 L, VBG pCO2 32.2 L, VBG pO2 39.2, VBG HCO3 12.1 L, VBG Total CO2 13.1 L, VBG O2 Saturation 62.7, VBG Base Excess -16.0 L, VBG Lactic Acid 9.6 H 03/13/24 09:24: Urine Color Yellow, Urine Appearance Clear, Urine pH 6.0, Ur Specific [place] 1.020, Urine Protein Negative, Urine Glucose (UA) Negative, Urine Ketones Negative, Urine Blood 1+ A, Urine Nitrate Negative, Urine Bilirubin Negative, Urine Urobilinogen 0.2, Ur Leukocyte Esterase Negative, Urine RBC 3-5, Urine WBC Occasional, Ur Squamous Epith Cells Occasional, Urine Bacteria Trace I & O for Labs for Last 24 Hours: Intake & Output 03/10/24 03/11/24 03/12/24 03/13/24 11:59 11:59 11:59 11:59 Output Total 350 / 350 Balance -350 / -350 Weight 119 lb Constitutional: no acute distress Respiratory: Absent respiratory distress Cardiac: Present Tachycardia GI: Present tenderness Results Labs 03/13/24 08:34 03/13/24 08:34 Labs: Laboratory Results - last 24 hr 03/13/24 08:34: WBC 1.8 L*, RBC 3.13 L, Hgb 7.9 L, Hct 25.7 L, MCV 82.1, MCH 25.2 L, MCHC 30.7 L, RDW 17.4, Plt Count 540 H, MPV 8.4, Neut % (Auto) 72.3, Lymph % (Auto) 23.2, [place] % (Auto) 3.9, Eos % (Auto) 0.0 L, Baso % (Auto) 0.0 L, Neut # (Auto) 1.3 L, Lymph # (Auto) 0.4 L, [place] # (Auto) 0.1, Eos # (Auto) 0.0, Baso # (Auto) 0.0, Sodium 134 L, Potassium 3.2 L, Chloride 102, Carbon Dioxide 12 L, Anion Gap 23.2 H, BUN 24 H, Creatinine 1.20 H, Estimated Creat Clear 34, Estimated GFR 44 L, Est GFR ( Amer) 53 L, Glucose 198 H, Calcium 8.5, Total Bilirubin 1.9 H, AST 42 H, ALT 46, Alkaline Phosphatase 42, Troponin I 0.06 H, C-Reactive Protein 45.1 H, Total Protein 6.1 L, Albumin 3.9, Globulin 2.2, Albumin/Globulin Ratio 1.8, Lipase 97, Digoxin 0.80, SARS-CoV-2 (PCR) Not detected, Influenza A Untype (PCR) Not detected, Influenza Type B (PCR) Not detected 03/13/24 08:44: Blood Type A Positive, Antibody Screen Negative 03/13/24 08:47: VBG pH 7.19 L, VBG pCO2 32.2 L, VBG pO2 39.2, VBG HCO3 12.1 L, VBG Total CO2 13.1 L, VBG O2 Saturation 62.7, VBG Base Excess -16.0 L, VBG Lactic Acid 9.6 H 03/13/24 09:24: Urine Color Yellow, Urine Appearance Clear, Urine pH 6.0, Ur Specific [place] 1.020, Urine Protein Negative, Urine Glucose (UA) Negative, Urine Ketones Negative, Urine Blood 1+ A, Urine Nitrate Negative, Urine Bilirubin Negative, Urine Urobilinogen 0.2, Ur Leukocyte Esterase Negative, Urine RBC 3-5, Urine WBC Occasional, Ur Squamous Epith Cells Occasional, Urine Bacteria Trace Imaging CT scan - abdomen: report reviewed and image reviewed CT scan - pelvis: report reviewed and image reviewed Assessment and Plan *Assessment and plan (1) Perforation of sigmoid colon due to diverticulitis: Status: Acute Category: Medical Code(s): K57.20 - Diverticulitis of large intestine with perforation and abscess without bleeding Plan: She is being taken emergently to the operating room for washout and end colostomy I have discussed the risks and benefits including, but not limited to: Bleeding Infection Damage to surrounding tissue Inherent risks of sedation The patient agrees to proceed.
--- NOTE | 2024-03-13 10:39 | PC.NURSE ---
DR TIFFANIE MCFARLAND FOR DR LOPEZ
--- NOTE | 2024-03-13 11:26 | P.PNANES_ITS ---
[facility] Disclaimer: The information contained in this section may have been updated after the patient was seen, as this information can be updated by other users. 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) No significant family history Social History Smoking Status: Never smoker alcohol intake: never counseling provided: none (Patient does not smoke or use alcohol ) substance use type: denies use current occupational status: retired Travel in the last 8 weeks: None household members: family housing: house caffeine: Yes do you feel safe at home: Yes victim of physical abuse: No victim of emotional abuse: No victim of sexual abuse: No Have you lived/traveled outside US in past 30 days?: No Contact w/someone who lives/traveled outside US past 30 days?: No Exposure to someone with infectious disease in past 14 days?: No Do you have a fever (greater than 100.4 F or 38 C)?: No Have you tested positive for COVID-19: No Exposed to someone with COVID-19 in past 14 days?: No Do you have a sore throat?: No Do you have a cough?: No Do you have any weakness?: Yes Do you have any diarrhea?: No Are you experiencing any unusual bleeding?: No Do you have any muscle aches/pain?: No Do you have any abdominal pain?: No Are you experiencing loss of taste or smell?: No [facility] Anesthesia Checklist Patient Identification Patient Identification: Verbal (Name & ) Structural Data Admitted From: Emergency Dept Planned Operative Procedure/s: explor laparotomy NPO Status Verified Time NPO: 00:00 Airway Assessment Mallampati Score:: Class II C-Spine Mobility Assessed: Yes TMJ Mobility Assessed: Yes Dentition: Edentulous Neurological Assessment Level of Consciousness: Awake, Alert and Appropriate Anesthesia Plan Anesthesia Risk discussed: Yes Anesthesia Plan: Verified ASA Class: III Anesthesia Type: General Preoperative Comments Pre-Operative Comments: emergency
--- NOTE | 2024-03-13 12:51 | HMH.PHAINT1 ---
Pharmacy Intervention Comments: MEDICATION RECONCILIATION COMPLETE USING RECENT HOSPITAL DISCHARGE NOTE AND EXTERNAL PHARMACY FILL HISTORY.
[2024-03-13 12:59] LABS: Reflex Lactic Add Lactic Reflex
--- NOTE | 2024-03-13 13:24 | P.OP_ITS ---
Date of procedure: 03/13/24 Pre-op Diagnosis:: Perforated viscus likely secondary to sigmoid diverticulitis Post-op Diagnosis:: Stercoral colitis with sigmoid perforation Procedure performed:: Exploratory laparotomy Partial sigmoid colectomy End colostomy Surgeon:: [place] Hurtado MD VP [employer]:: Darrin Simpson Anesthesia: GETA Estimated blood loss (mL): 200 Operative findings:: Large complex perforation of distal sigmoid colon with surrounding ischemic changes (likely secondary to stercoral colitis) Profound constipation Operative note:: After informed consent was obtained the patient was taken to the operating room and placed in the supine position. General anesthesia was induced and her abdomen was prepped and draped in a sterile fashion. A midline laparotomy incision was made. The abdomen was carefully entered with a combination of Metzenbaum scissors and electrocautery. A large volume of formed stool and thinner feculent material was noted throughout abdominal cavity. Copious irrigation and suctioning was utilized to remove the debris to the extent possible. The small bowel was carefully retracted. A large defect within the distal sigmoid colon was noted. Surrounding ischemic changes secondary to likely stercoral colitis were noted. Proximal to the site of perforation a window was made in the mesentery. A linear stapling device was utilized to transect the sigmoid colon proximal to the site. A second mesenteric window was made close to the sigmoid rectal junction. The colon was transected at this site again using the linear stapling device. The intervening mesentery was transected via Enseal. The specimen was passed off for pathologic evaluation. Additional copious irrigation and suction was utilized to remove as much stool burden as possible. Secondary inflammatory changes of the small bowel and much of the remaining colon were noted. A point in the left lower quadrant was chosen for ostomy creation. The skin and underlying adipose tissue were resected with electrocautery. A cruciate incision was made in the fascia and the underlying musculature was retracted. A cruciate peritoneal incision was then completed. The stapled sigmoid margin was brought through the defect. The fascia and the colonic serosa was approximated with interrupted Vicryl. Attention was then turned to midline closure. #2 Novafil was utilized to close the fascia in a running manner. Skin was stapled. The ostomy was then matured with interrupted Vicryl suture. Dressings were applied and the patient was transferred to recovery in stable condition. Condition: stable (Stable/guarded) Disposition: PACU Specimens:: Partial sigmoid: Complications:: No immediate
--- NOTE | 2024-03-13 13:33 | EXP.ANES.I ---
[facility] Anesthesia Record Part I Anesthesia Record I Intake, IV Amount: 4,500 Hydration: Adequate Estimated blood loss (mL): 200 Urine output (mL): 75 Blood Products used (#): PRBC's (2 units due to low hgb, and surgical blood loss) Blood Pressure: 133/73 SaO2: 95 Pulse Rate: 125 Airway Patency: Patent Respiratory Rate: 16 Temperature: 98.7 F Patient is:: Awake and Stable Stable to PACU at:: 13:30
[2024-03-13 14:43] LABS: Iron 24 ug/dL (37-170)
[2024-03-13] MEDS: PIPERCILLIN/TAZO 3.375 GM in 0.9 % SODIUM CHLORIDE 50 ML IV ×2 (14:45→20:34)
[2024-03-13] MEDS: LACTATED RINGERS 1000ML 1,000 ML 100 ML IV (14:45)
--- NOTE | 2024-03-13 14:45 | SUR.PHASEI ---
2 UNITS OF PRBCs ORDERED BY CHEIKH CRENSHAW EMERGENTLY DUE TO INTRAOPERATIVE BLOOD LOSS AND LOW HGB PRE PROCEDURE/SYMPTOMATIC ANEMIA 1ST UNIT 2ND UNIT [id number] VERIFIED BY THIS RN AND AMADOR CEDEÑO VERIFIED BY THIS RN AND DAVIDSON RN STARTED AT 1055 STARTED AT 1108 BP- 64/41 BP- 95/57 HR- 112 HR- 120 SPO2- 100% MECHANICALLY VENTILATED SPO2- 100% MECHANICALLY VENTILATED CORE TEMP- 96.3 CORE TEMP- 96.8 ENDED AT 1107 ENDED AT 1119 BP- 92/56 BP- 100/65 HR- 119 HR- 123 SPO2- 100% MECHANICALLY VENTILATED SPO2- 99% MECHANICALLY VENTILATED CORE TEMP- 97.0 CORE TEMP- 96.8 SEE ANESTHESIA RECORDS FOR ADDITIONAL BLOOD VITALS
[2024-03-13 14:52] LABS: Total Iron Binding Capacity 438 ug/dL (265-497)
[2024-03-13 15:19] LABS: Ferritin 9.21 ng/ml (11.1-264)
--- NOTE | 2024-03-13 15:45 | EXP.HP ---
History of Present Illness *Admission Date: 03/13/24 *History of present illness: Alesha Szymanski is a 78-year-old female with a medical history significant for A-fib on Xarelto, aortic valve insufficiency, hypertension, GERD who presented with evaluation of abdominal pain. CT abdomen/pelvis revealed sigmoid colon perforation and patient was emergently taken to the OR by Dr. Hurtado s/p partial sigmoid colectomy and end colostomy. During ex lap, patient was noted to have severe colon impaction with surrounding stercoral and ischemic colitis. Patient was recently started on iron supplementation which probably exacerbated underlying constipation. Upon my evaluation, patient was comfortably laying in bed coming out of sedation. She noted some abdominal pain, but improved since presentation. [facility] Disclaimer: The information contained in this section may have been updated after the patient was seen, as this information can be updated by other users. 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) History of appendectomy Family History , UROGYNAECOLOGIST) No significant family history Social History (Updated 03/13/24 @ 15:07 by Michelle Shelby RN) Smoking Status: Never smoker alcohol intake: never counseling provided: none (Patient does not smoke or use alcohol ) substance use type: denies use current occupational status: retired Travel in the last 8 weeks: None household members: family housing: house caffeine: Yes do you feel safe at home: Yes victim of physical abuse: No victim of emotional abuse: No victim of sexual abuse: No Have you lived/traveled outside US in past 30 days?: No Contact w/someone who lives/traveled outside US past 30 days?: No Exposure to someone with infectious disease in past 14 days?: No Do you have a fever (greater than 100.4 F or 38 C)?: No Have you tested positive for COVID-19: No Exposed to someone with COVID-19 in past 14 days?: No Do you have a sore throat?: No Do you have a cough?: No Do you have any weakness?: Yes Do you have any diarrhea?: No Are you experiencing any unusual bleeding?: No Do you have any muscle aches/pain?: No Do you have any abdominal pain?: No Are you experiencing loss of taste or smell?: No Other 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 Have you received the Flu Vaccine for this season: No Have you received the Pneumonia Vaccine: No Meds Home Medications and Allergies Home Medications ?Medication ?Instructions ?Recorded ?Confirmed ?Type aspirin 81 mg tablet,delayed 81 mg PO Q2D 12/31/19 03/13/24 History release (Adult Aspirin Regimen) digoxin 250 mcg (0.25 mg) tablet 125 mcg PO DAILY 12/31/19 03/13/24 History verapamil 120 mg tablet,extended 120 mg PO BID BP 12/31/19 03/13/24 History release simvastatin 40 mg tablet 40 mg PO HS 12/04/20 03/13/24 History metoprolol succinate 50 mg 50 mg PO DAILY 04/01/21 03/13/24 History tablet,extended release 24 hr rivaroxaban 15 mg tablet 15 mg PO QPMWITHMEAL 07/19/23 03/13/24 History albuterol sulfate 90 mcg/actuation 1 puff inhalation QIDP PRN 01/11/24 03/13/24 History aerosol inhaler Shortness Of Breath Or Wheezing pantoprazole 40 mg tablet,delayed 40 mg PO HS 01/11/24 03/13/24 History release estradiol 0.01% (0.1 mg/gram) 0.5 appful vaginal .3x weekly 01/18/24 03/13/24 Rx vaginal cream (Estrace) #42.5 grams losartan 50 mg tablet 50 mg PO DAILY 03/09/24 03/13/24 History levofloxacin 500 mg tablet 500 mg PO DAILY #5 tabs 03/10/24 03/13/24 Rx prednisone 10 mg tablet 10 mg PO DAILY #5 tabs 03/10/24 03/13/24 Rx New Prescriptions to Start Prescriptions: Allergies Allergy/AdvReac Type Severity Reaction Status Date / Time No Known Allergies Allergy Verified 02/29/24 12:05 Exam Data for Last 24 hours Vital signs and Labs for Last 24 Hours: Temp Pulse Resp BP Pulse Ox O2 Del Method O2 Flow Rate 98.7 F 124 H 24 100/63 L 90 L Nasal Cannula 4 03/13/24 13:35 03/13/24 15:30 03/13/24 15:30 03/13/24 15:30 03/13/24 15:30 03/13/24 15:30 03/13/24 15:30 Laboratory Results - last 24 hr 03/13/24 08:34: WBC 1.8 L*, RBC 3.13 L, Hgb 7.9 L, Hct 25.7 L, MCV 82.1, MCH 25.2 L, MCHC 30.7 L, RDW 17.4, Plt Count 540 H, MPV 8.4, Neut % (Auto) 72.3, Lymph % (Auto) 23.2, [place] % (Auto) 3.9, Eos % (Auto) 0.0 L, Baso % (Auto) 0.0 L, Neut # (Auto) 1.3 L, Lymph # (Auto) 0.4 L, [place] # (Auto) 0.1, Eos # (Auto) 0.0, Baso # (Auto) 0.0, Sodium 134 L, Potassium 3.2 L, Chloride 102, Carbon Dioxide 12 L, Anion Gap 23.2 H, BUN 24 H, Creatinine 1.20 H, Estimated Creat Clear 34, Estimated GFR 44 L, Est GFR ( Amer) 53 L, Glucose 198 H, Calcium 8.5, Total Bilirubin 1.9 H, AST 42 H, ALT 46, Alkaline Phosphatase 42, Troponin I 0.06 H, C-Reactive Protein 45.1 H, Total Protein 6.1 L, Albumin 3.9, Globulin 2.2, Albumin/Globulin Ratio 1.8, Lipase 97, Digoxin 0.80, SARS-CoV-2 (PCR) Not detected, Influenza A Untype (PCR) Not detected, Influenza Type B (PCR) Not detected, Blood Type Confirm A Positive 03/13/24 08:44: Blood Type A Positive, Antibody Screen Negative, Crossmatch (AHG) See Detail 03/13/24 08:47: VBG pH 7.19 L, VBG pCO2 32.2 L, VBG pO2 39.2, VBG HCO3 12.1 L, VBG Total CO2 13.1 L, VBG O2 Saturation 62.7, VBG Base Excess -16.0 L, VBG Lactic Acid 9.6 H 03/13/24 09:24: Urine Color Yellow, Urine Appearance Clear, Urine pH 6.0, Ur Specific Calvin 1.020, Urine Protein Negative, Urine Glucose (UA) Negative, Urine Ketones Negative, Urine Blood 1+ A, Urine Nitrate Negative, Urine Bilirubin Negative, Urine Urobilinogen 0.2, Ur Leukocyte Esterase Negative, Urine RBC 3-5, Urine WBC Occasional, Ur Squamous Epith Cells Occasional, Urine Bacteria Trace 03/13/24 11:00: Iron 24 L, TIBC 438, Iron Saturation 5.75406 L, Ferritin 9.21 L I & O for Last 24 hours: Intake & Output 03/10/24 03/11/24 03/12/24 03/13/24 23:59 23:59 23:59 23:59 Intake Total 6200 / 6200 Output Total 350 / 350 Balance 5850 / 5850 Weight 53.977 kg Constitutional Constitutional: no acute distress *Routine HEENT Exam Head: Present normocephalic Eye: Present EOMI and PERRL ENT: Present mucous membranes moist *Routine Neck Exam Neck: Present supple; Absent lymphadenopathy *Routine Respiratory Exam Respiratory: Present CTA bilaterally *Routine Cardiovascular Exam Cardiovascular: Present tachycardia *Routine Abdominal Exam Abdominal: Present soft and normoactive bowel sounds; Absent tenderness Comments: Colostomy bag in place. *Routine Rectal Exam Rectal:: deferred *Routine Genitalia Exam Genitalia:: deferred *Routine Extremities Exam Extremities: Absent cyanosis, clubbing or edema *Routine Skin Exam Skin: Present warm; Absent rash *Routine Neurological Exam Neurological: Present alert and oriented X3 Assessment and Plan *Assessment and plan (1) Sepsis: Status: Acute Category: Medical Code(s): A41.9 - Sepsis, unspecified organism (2) Rupture of colon: Status: Acute Category: Medical Code(s): K63.1 - Perforation of intestine (nontraumatic) (3) Ischemic colitis: Status: Acute Category: Medical Code(s): K55.9 - Vascular disorder of intestine, unspecified (4) Stercoral colitis: Status: Acute Category: Medical Code(s): K52.89 - Other specified noninfective gastroenteritis and colitis (5) Anemia: Problem Comment: Not sure anemia is related to exclusively vaginal bleeding. She states this is improving. Agree with LENS GENERATOR for no need for intervention at this point. I am unclear about why patient is on Xarelto. Cardiology notes record atrial fibrillation but I can see no actual A-fib either on a Holter report that I read last year or any EKG recently. Patient states she is on the blood thinner so I do not have a heart attack. This may need to be readdressed with primary family practice office. I do not think her shortness of air is from the anemia and this seems to be perhaps a more chronic problem. I think this would be best worked up as an outpatient, I do not see a need for active transfusion at this point given normal vital signs. Status: Acute Qualifiers: Anemia type: other cause Other causes of anemia: acute posthemorrhagic Qualified Code(s): D62 - Acute posthemorrhagic anemia Category: Medical Code(s): D64.9 - Anemia, unspecified (6) Atrial fibrillation: Status: Chronic Qualifiers: Atrial fibrillation type: paroxysmal Qualified Code(s): I48.0 - Paroxysmal atrial fibrillation Category: Medical Code(s): I48.91 - Unspecified atrial fibrillation (7) Hypertension: Status: Chronic Qualifiers: Hypertension type: essential hypertension Qualified Code(s): I10 - Essential (primary) hypertension Category: Medical Code(s): I10 - Essential (primary) hypertension (8) GERD (gastroesophageal reflux disease): Status: Acute Category: Medical Code(s): K21.9 - Gastro-esophageal reflux disease without esophagitis Plan Alesha Szymanski is a 78-year-old female with a medical history significant for A-fib on Xarelto, aortic valve insufficiency, hypertension, GERD who presented with evaluation of abdominal pain. CT abdomen/pelvis revealed sigmoid colon perforation and patient was emergently taken to the OR by Dr. Hurtado s/p partial sigmoid colectomy and end colostomy. During ex lap, patient was noted to have severe colon impaction with surrounding stercoral and ischemic colitis. Patient was recently started on iron supplementation which probably exacerbated underlying constipation. Upon my evaluation, patient was comfortably laying in bed coming out of sedation. She noted some abdominal pain, but improved since presentation. #Sigmoid colon perforation #Septic shock #Ischemic colitis #Stercoral colitis, severe fecal impaction ? General Surgery consulted, s/p ex lap 03/13/2024 with partial sigmoid colectomy and end colostomy, and fecal disimpaction. ? Discussed case with Dr. Hurtado extensively, will treat ischemic/stercoral colitis with IV antibiotics, hydration for now. May need surgical revision if signs of ischemic colitis re-present. ? Currently sinus tachycardic, tachypneic, leukopenia 2.3. Received sepsis bolus in the ED. ? Continue IV vancomycin, Zosyn day 1. Follow-up blood cultures. ? Started Levophed. Cautious on vasopressors in the setting of ischemic colitis. Avoid phenylephrine. Can consider low-dose vasopressin if needed as secondary. ? Holding off on IV fluids for now as there signs of mild fluid overload. Follow-up BNP. ? Clear liquid diet. ? MiraLAX, docusate, senna daily. ? Continue to trend lactate in the setting of ischemic colitis. Lactate improving from 9-3.1. #Acute on chronic microcytic anemia ? Initial hemoglobin 7.7 improved to 10.0 on repeat CBC this afternoon. MCV 79.4 ? Iron studies reveal significant iron deficiency. ? Plan to give IV Venofer as septic shock improves. ? No signs of nicole bleeding. Likely secondary to ischemic colitis as above. #Paroxysmal A-fib #Hypertension ? Currently in sinus tachycardia. ? Holding Xarelto in the setting of acute on chronic anemia. Can be resumed after hemoglobin stabilizes. ? Continue home metoprolol succinate 50 mg, digoxin 125 mcg. Resume home verapamil as BP improves. #GERD ? Resume home PPI. #Hyperlipidemia ? Resume home statin. Full code Holding anticoagulation as above in the setting of ischemic colitis.
[2024-03-13 15:47] LABS: VBG Base Excess -10.1 mmol/L (-2.4-2.3); VBG HCO3 16.8 mmol/L (23-30); VBG Oxygen Saturation 68.2 % (50-70); VBG PH 7.27 mmol/L (7.31-7.41); VBG PO2 36.6 mmol/L (28-40); VBG Total CO2 17.9 mmol/L (23-27)
[2024-03-13 15:48] LABS: Lactate Venous 3.9 mmol/L (0.4-2.0)
[2024-03-13 15:54] LABS: Alanine Aminotransferase 24 U/L (12-78); Albumin/Globulin Ratio 1.1 (1.1-1.8); Alkaline Phosphatase 27 U/L (38-126); Aspartate Amino Transferase 38 U/L (14-36); Bilirubin,Total 1.6 mg/dl (0.2-1.3); Blood Urea Nitrogen 25 mg/dl (7-17); Calcium 6.9 mg/dl (8.4-10.2); Carbon Dioxide 18 mmol/L (22.0-30.0); Chloride 105 mmol/L (98-107); Creatinine Clearance Estimated 34 mL/min (50-200); Estimated Glomerular Filt Rate 44 ml/min (>60); GFR (African American) 53 ML/MIN (>60); Globulin 1.9 g/dL (1.3-3.2); Glucose 111 mg/dl (74-100); Sodium 132 mmol/L (136-145); Total Protein,Serum 3.9 g/dl (6.3-8.2)
[2024-03-13 15:56] LABS: Basophils % 0.4 % (0.1-2.0); Hematocrit 31.6 % (37.0-47.0); Lymphocytes # 0.7 K/mm3 (0.7-4.5); Lymphocytes % 32.9 % (10-50); Mean Corpuscular HGB Conc 32.3 g/dL (31.8-35.4); Mean Corpuscular Hemoglobin 25.6 pg (27.0-31.2); Mean Corpuscular Volume 79.4 fl (81-99); Mean Platelet Volume 8.2 fl (7.4-10.4); Monocytes # 0.1 K/mm3 (0.1-1.0); Monocytes % 5.8 % (1.7-9.3); Neutrophils # 1.4 K/mm3 (1.8-7.8); Neutrophils % 60.5 % (37.0-80.0); Platelet Count 347 K/mm3 (142-424); Red Blood Count 3.98 M/mm3 (4.20-5.40); Red Cell Distribution Width 16.5 % (11.5-17.5); White Blood Count 2.3 K/mm3 (4.8-10.8)
[2024-03-13] MEDS: MORPHINE 2MG/ML SYRINGE 2 MG IV ×3 (16:00→22:15)
[2024-03-13 16:09] LABS: Lactic Acid Follow Up (RFLX 1) 3.6 mmol/L (0.7-2.1)
[2024-03-13 16:12] LABS: Anion Gap 12.3 mEq/L (5-15); Potassium 3.3 mmoL/L (3.5-5.1)
[2024-03-13 17:03] LABS: Magnesium 1.7 mg/dl (1.6-2.3)
[2024-03-13 17:39] LABS: Reflex Lactic (2 hrs) Add Lactic Reflex
[2024-03-13] MEDS: POTASSIUM CHLORIDE 20MEQ/15ML UDC 40 MEQ NG-TUBE (17:50)
[2024-03-13] MEDS: DIGOXIN 0.25MG TABLET 125 MCG PO (17:50)
[2024-03-13] MEDS: METOPROLOL SUCCINATE XL 50MG TABLET 50 MG PO (17:50)
[2024-03-13] MEDS: ASPIRIN EC 81MG TABLET 81 MG PO (17:51)
[2024-03-13 18:02] LABS: Lactic Acid Follow up (RFLX 2) 3.1 mmol/L (0.7-2.1)
--- NOTE | 2024-03-13 18:15 | XR_ITS ---
PROCEDURE INFORMATION: Exam: XR Chest Exam date and time: 03/13/2024 6:19 PM Age: 78 years old Clinical indication: Shortness of breath; Additional info: SOB TECHNIQUE: Imaging protocol: Radiologic exam of the chest. Views: 1 view. COMPARISON: CR XR CHEST PORTABLE 03/13/2024 9:00 AM FINDINGS: Tubes, catheters and devices: There is an enteric tube in place, tip over the stomach. Lungs: There are bibasilar parenchymal consolidations that appear increased from prior and could reflect infection or edema. Pleural spaces: No large effusion or pneumothorax. Heart/Mediastinum: Stable cardiac and mediastinal contours. Vasculature: There are calcifications of the aortic arch. Bones/joints: No evidence of acute osseous abnormalities within the visualized portions of the thoracic spine and ribs. Osseous structures appear appropriate for patient age. Intraperitoneal space: Partially visualized previously noted pneumoperitoneum. IMPRESSION: There are bibasilar parenchymal consolidations that appear increased from prior and could reflect infection or edema.
[2024-03-13] MEDS: NOREPINEPHRINE BITARTRATE/D5W 8 MG/250 ML PLAST..BAG 3.75 MG IV (18:18)
--- NOTE | 2024-03-13 18:25 | ECG_ITS ---
APPROVED REPORT Exam: Resting ECG HR:119 bpm ECG Measurements Heart Rate 119 AXES ID 139 P 16 QRSd 113 QRS 29 QT 265 T 11 QTc 336 Conclusion SINUS TACHYCARDIA LOW QRS VOLTAGE IN PRECORDIAL LEADS [QRS DEFLECTION < 1.0 mV IN CHEST LEADS] INCOMPLETE RIGHT BUNDLE BRANCH BLOCK [90+ ms QRS DURATION, TERMINAL R IN V1/V2, 40+ ms S IN I/aVL/V4/V5/V6] MODERATE ST DEPRESSION [0.05+ mV ST DEPRESSION] ABNORMAL ECG UNCONFIRMED REPORT Electronically signed by : Rito Jamison MD 03/14/2024 13:59:12
--- NOTE | 2024-03-13 18:35 | PC.NURSE ---
Pt BP noted to be trending down. Pt c/o soa. MD notified of MAP of 59. New orders received to get EKG, CXR. Start Levophed gtt. Keep MAP of 65. Levophed started at 8 mcg/min at 1818 and currently infusing at this rate. She is currently on 4l O2 NC with sats low 90s. NG placed clamped and no longer on suction per MD order [place]. Midline DSG is intact. Colonostomy in place with some stool noted in bag. Call light within reach. Family at bedside.
[2024-03-13 18:40] LABS: NT Pro Brain Natriuretic Pep. 1170 pg/mL (0-450)
[2024-03-13 19:02] LABS: Thyroid Stimulating Hormone 3.22 uIU/mL (0.465-4.68)
[2024-03-13] MEDS: FAMOTIDINE 20MG/2ML VIAL 20 MG IV (20:38)
[2024-03-14] VITALS (94 sets, daily range): BP systolic 89–142; BP diastolic 37–77; PULSE 112–135; RESP 18–37; TEMP 36.5–37.6; O2SAT 90–98; BMI 28.5
[2024-03-14] MEDS: PIPERCILLIN/TAZO 3.375 GM in 0.9 % SODIUM CHLORIDE 50 ML IV ×4 (03:17→20:40)
[2024-03-14] MEDS: MORPHINE 2MG/ML SYRINGE 2 MG IV ×3 (03:17→08:31)
--- NOTE | 2024-03-14 04:45 | P.EN_ITS ---
Notified by nursing that the patient continued to have some nausea throughout the night. That was improved after Zofran NG was reattached to suction and was able to retrieve 600 cc of NG fluid to low wall suction., Patient has slept since then.. Also to note that the morphine has controlled the pain. And that the Levophed has been decreased by more than half. 0511: Update patient totally off her Levophed at this time, blood pressure 101/65 but heart rate remains about 119 has not come down. Total out for this shift from the NG was 700 cc urine out was only 225 cc. Patient remains in quite a bit of pain continuing to get morphine without any significant side effects. This is controlling her pain but it starts to return within 3 to 4 hours. Will talk to daytime provider about providing GUIDE DOMESTIC TOUR pump as an alternative. With heart rate remaining at 119 routine troponin added to morning labs. Also venous blood gas due to respiratory rate remaining in the 20s. Patient presently is stable and doing well
[2024-03-14 05:38] LABS: VBG Base Excess -10.2 mmol/L (-2.4-2.3); VBG HCO3 15.9 mmol/L (23-30); VBG Oxygen Saturation 99.2 % (50-70); VBG PCO2 31.4 mmol/L (35-51); VBG PH 7.32 mmol/L (7.31-7.41); VBG PO2 157.1 mmol/L (28-40); VBG Total CO2 16.8 mmol/L (23-27)
[2024-03-14 05:41] LABS: Lactate Venous 3.4 mmol/L (0.4-2.0)
[2024-03-14 05:41] LABS: Basophils % 0.1 % (0.1-2.0); Eosinophils % 0.3 % (0.1-12.0); Hematocrit 32.3 % (37.0-47.0); Hemoglobin 10.4 g/dL (12.2-16.2); Lymphocytes # 0.9 K/mm3 (0.7-4.5); Lymphocytes % 10.4 % (10-50); Mean Corpuscular HGB Conc 32.2 g/dL (31.8-35.4); Mean Corpuscular Hemoglobin 25.2 pg (27.0-31.2); Mean Corpuscular Volume 78.4 fl (81-99); Mean Platelet Volume 8.5 fl (7.4-10.4); Monocytes # 0.3 K/mm3 (0.1-1.0); Monocytes % 3.2 % (1.7-9.3); Neutrophils # 6.8 K/mm3 (1.8-7.8); Platelet Count 345 K/mm3 (142-424); Red Blood Count 4.12 M/mm3 (4.20-5.40); Red Cell Distribution Width 17.7 % (11.5-17.5); White Blood Count 8.7 K/mm3 (4.8-10.8)
--- NOTE | 2024-03-14 06:15 | CA_ITS ---
APPROVED REPORT EXAM: Comprehensive 2D, Doppler, and color-flow Echocardiogram [employer]om Stick Worker: Elsie Weathers, RT(R) Ht: 4 ft 9 in Wt: 119lbs BSA: 1.44 BP: 101/62 mmHg Indications: hx AFIB, tachycardia, perforated bowel, DD, HGB 7.9 , sepsis, rupture of colon, HTN, HLD 2D Dimensions Left Atrium 3.26 cm F: 2.7 - 3.8 LA Volume 28.80 mL LVOT 1.82 cm (M/F) 1.5-2.5 LA Volume Index 20.00 mL/m2 (M/F) 16-34 EF AP4 46.20 % GL Strain -15.7 % M-Mode Dimensions RVDd 2.78 cm (0.9-2.6) LVDd 1.81 cm (3.5-5.7) Ao Diam 2.79 cm (2.0-3.7) LVDs 0.97 cm (3.5-5.7) IVSd 1.04 cm (0.6-1.1) PWd 1.10 cm (0.6-1.1) EF (Teich) 80.80% FS 46.40% EDV (Teich) 9.90 mL ESV (Teich) 1.90 mL LV Diastology E Decel Time 117 (160-240 msec) E/A Ratio 0.4 MED E' 5.2 (>= 7 cm/sec) E'/MED E' Ratio 8.63 (<= 14) LAT E' 7.3 (>= 10 cm/sec) E/LAT E' Ratio 6.15 (<= 14) Mitral Valve MV E Max Mikal. 45.0 (40-130 cm/s) MV A Velocity 110.0 (40-130 cm/s) E/A Ratio 0.41 MV Decel. Time 117 (160-240 ms) Tricuspid Valve TR P. Velocity 258.00 cm/s RAP Estimate 10.00 mmHg RVSP 36.70 mmHg Left Ventricle The left ventricle is normal size. The left ventricular systolic function is hyperdynamic. There is increased LV wall thickness. There is mild hypokinesis of the LV apex. Diastolic function is indeterminate. LVEF is 70%. Right Ventricle The right ventricle is normal size. The right ventricular systolic function is normal. Atria Left atrium is mildly dilated. The right atrium size is normal. There is no Doppler evidence of interatrial shunt. Aortic Valve The aortic valve is mildly thickened. There is no hemodynamically significant aortic valvular stenosis. Mild aortic regurgitation. Mitral Valve The mitral valve is mildly thickened. No evidence of mitral valve stenosis. Moderate mitral regurgitation. Tricuspid Valve Tricuspid valve is grossly normal in structure and function. Mild tricuspid regurgitation. RVSP is 20-25 mmHg. Pulmonic Valve The pulmonary valve is normal in structure. Trace pulmonic regurgitation. Great Vessels The aortic root is normal in size. IVC is normal in size and collapses >50% with inspiration. Pericardium There is no pericardial effusion. Other Information Study Quality: Technically Difficult Conclusion Technically difficult study due to poor accoustic windows. Hyperdynamic LV systolic function (LVEF 70%). Mild hypokinesis of the LV apex. Mild LA dilation. Moderate MR. Mild AI, mild TR. Electronically signed by : Haley Dejesus MD 03/14/2024 11:22:41
--- NOTE | 2024-03-14 06:38 | EXP.SURG.PN ---
Subjective Narrative: Postoperative pain noted Exam Data for Last 24 hours Vital signs and Labs for Last 24 Hours: Temp Pulse Resp BP Pulse Ox O2 Del Method O2 Flow Rate 97.7 F 121 H 28 H 102/62 L 92 L Room Air 2 03/14/24 04:00 03/14/24 06:00 03/14/24 06:00 03/14/24 06:00 03/14/24 06:00 03/14/24 06:00 03/14/24 04:00 FiO2 92 03/13/24 18:30 Laboratory Results - last 24 hr 03/13/24 08:34: WBC 1.8 L*, RBC 3.13 L, Hgb 7.9 L, Hct 25.7 L, MCV 82.1, MCH 25.2 L, MCHC 30.7 L, RDW 17.4, Plt Count 540 H, MPV 8.4, Neut % (Auto) 72.3, Lymph % (Auto) 23.2, [place] % (Auto) 3.9, Eos % (Auto) 0.0 L, Baso % (Auto) 0.0 L, Neut # (Auto) 1.3 L, Lymph # (Auto) 0.4 L, [place] # (Auto) 0.1, Eos # (Auto) 0.0, Baso # (Auto) 0.0, Sodium 134 L, Potassium 3.2 L, Chloride 102, Carbon Dioxide 12 L, Anion Gap 23.2 H, BUN 24 H, Creatinine 1.20 H, Estimated Creat Clear 34, Estimated GFR 44 L, Est GFR ( Amer) 53 L, Glucose 198 H, Calcium 8.5, Total Bilirubin 1.9 H, AST 42 H, ALT 46, Alkaline Phosphatase 42, Troponin I 0.06 H, C-Reactive Protein 45.1 H, Total Protein 6.1 L, Albumin 3.9, Globulin 2.2, Albumin/Globulin Ratio 1.8, Lipase 97, TSH 3.22, Digoxin 0.80, SARS-CoV-2 (PCR) Not detected, Influenza A Untype (PCR) Not detected, Influenza Type B (PCR) Not detected, Blood Type Confirm A Positive 03/13/24 08:44: Blood Type A Positive, Antibody Screen Negative, Crossmatch (AHG) See Detail 03/13/24 08:47: VBG pH 7.19 L, VBG pCO2 32.2 L, VBG pO2 39.2, VBG HCO3 12.1 L, VBG Total CO2 13.1 L, VBG O2 Saturation 62.7, VBG Base Excess -16.0 L, VBG Lactic Acid 9.6 H 03/13/24 09:24: Urine Color Yellow, Urine Appearance Clear, Urine pH 6.0, Ur Specific [place] 1.020, Urine Protein Negative, Urine Glucose (UA) Negative, Urine Ketones Negative, Urine Blood 1+ A, Urine Nitrate Negative, Urine Bilirubin Negative, Urine Urobilinogen 0.2, Ur Leukocyte Esterase Negative, Urine RBC 3-5, Urine WBC Occasional, Ur Squamous Epith Cells Occasional, Urine Bacteria Trace 03/13/24 11:00: Iron 24 L, TIBC 438, Iron Saturation 5.98714 L, Ferritin 9.21 L 03/13/24 15:23: VBG pH 7.27 L, VBG pCO2 37.0, VBG pO2 36.6, VBG HCO3 16.8 L, VBG Total CO2 17.9 L, VBG O2 Saturation 68.2, VBG Base Excess -10.1 L, VBG Lactic Acid 3.9 H 03/13/24 15:35: WBC 2.3 L D, RBC 3.98 L D, Hgb 10.0 L D, Hct 31.6 L, MCV 79.4 L, MCH 25.6 L, MCHC 32.3, RDW 16.5, Plt Count 347 D, MPV 8.2, Neut % (Auto) 60.5, Lymph % (Auto) 32.9, [place] % (Auto) 5.8, Eos % (Auto) 0.0 L, Baso % (Auto) 0.4, Neut # (Auto) 1.4 L, Lymph # (Auto) 0.7, [place] # (Auto) 0.1, Eos # (Auto) 0.0, Baso # (Auto) 0.0, Sodium 132 L, Potassium 3.3 L, Chloride 105, Carbon Dioxide 18 L, Anion Gap 12.3, BUN 25 H, Creatinine 1.20 H, Estimated Creat Clear 34, Estimated GFR 44 L, Est GFR ( Amer) 53 L, Glucose 111 H D, Lactate 3.6 H, Calcium 6.9 L, Magnesium 1.7, Total Bilirubin 1.6 H, AST 38 H, ALT 24 D, Alkaline Phosphatase 27 L, NT-Pro-B Natriuret Pep 1170 H, Total Protein 3.9 L D, Albumin 2.0 L D, Globulin 1.9, Albumin/Globulin Ratio 1.1 03/13/24 17:47: Lactate 3.1 H 03/14/24 05:18: WBC 8.7 D, RBC 4.12 L, Hgb 10.4 L, Hct 32.3 L, MCV 78.4 L, MCH 25.2 L, MCHC 32.2, RDW 17.7 H, Plt Count 345, MPV 8.5, Neut % (Auto) 78.0, Lymph % (Auto) 10.4, [place] % (Auto) 3.2, Eos % (Auto) 0.3, Baso % (Auto) 0.1, Neut # (Auto) 6.8, Lymph # (Auto) 0.9, [place] # (Auto) 0.3, Eos # (Auto) 0.0, Baso # (Auto) 0.0 03/14/24 06:00: VBG pH 7.32, VBG pCO2 31.4 L, VBG pO2 157.1 H, VBG HCO3 15.9 L, VBG Total CO2 16.8 L, VBG O2 Saturation 99.2 H, VBG Base Excess -10.2 L, VBG Lactic Acid 3.4 H I & O for Last 24 hours: Intake & Output 03/11/24 03/12/24 03/13/24 03/14/24 11:59 11:59 11:59 11:59 Intake Total 1700 / 1700 4900.375 / 4900.375 Output Total 350 / 350 1235 / 1235 Balance 1350 / 1350 3665.375 / 3665.375 Weight 119 lb 132 lb 9.6 oz Constitutional Constitutional: no acute distress *Routine Respiratory Exam Respiratory: Absent respiratory distress *Routine Cardiovascular Exam Cardiovascular: Absent tachycardia *Routine Abdominal Exam Comments: Ostomy viable Progress Note: A&P Assessment and plan (1) Stercoral colitis: Status: Acute (2) Rupture of colon: Status: Acute (3) Sepsis: Status: Acute Assessment and plan: Postoperative day 1 status post exploratory laparotomy, partial sigmoid colectomy, and end colostomy Physical therapy consultation Ambulation to the degree possible Continue antibiotics Remove Huynh catheter when deemed appropriate per primary service
[2024-03-14 06:58] LABS: Anion Gap 15.3 mEq/L (5-15); Blood Urea Nitrogen 37 mg/dl (7-17); Calcium 7.2 mg/dl (8.4-10.2); Carbon Dioxide 15 mmol/L (22.0-30.0); Chloride 107 mmol/L (98-107); Creatinine Clearance Estimated 28 mL/min (50-200); Estimated Glomerular Filt Rate 31 ml/min (>60); GFR (African American) 38 ML/MIN (>60); Glucose 89 mg/dl (74-100); Potassium 4.3 mmoL/L (3.5-5.1); Sodium 133 mmol/L (136-145)
[2024-03-14 06:59] LABS: Alanine Aminotransferase 26 U/L (12-78); Albumin Level 2.1 g/dl (3.5-5.0); Albumin/Globulin Ratio 1.1 (1.1-1.8); Alkaline Phosphatase 23 U/L (38-126); Aspartate Amino Transferase 46 U/L (14-36); Bilirubin,Total 1.3 mg/dl (0.2-1.3); Blood Urea Nitrogen 38 mg/dl (7-17); Calcium 7.1 mg/dl (8.4-10.2); Carbon Dioxide 15 mmol/L (22.0-30.0); Chloride 108 mmol/L (98-107); Creatinine Clearance Estimated 28 mL/min (50-200); Estimated Glomerular Filt Rate 31 ml/min (>60); GFR (African American) 38 ML/MIN (>60); Globulin 1.9 g/dL (1.3-3.2); Glucose 88 mg/dl (74-100); Sodium 133 mmol/L (136-145)
[2024-03-14 07:38] LABS: Anion Gap 14.5 mEq/L (5-15); Potassium 4.5 mmoL/L (3.5-5.1)
[2024-03-14 08:16] LABS: NT Pro Brain Natriuretic Pep. 4240 pg/mL (0-450)
[2024-03-14] MEDS: ONDANSETRON 4MG/2ML VIAL 4 MG IV ×2 (08:34→17:10)
[2024-03-14 09:13] LABS: Vitamin B12 866 pg/mL (239-931)
--- NOTE | 2024-03-14 09:15 | HMH.OTEV ---
OT Inpatient Evaluation Rehab OT IP Evaluation Start: 03/14/24 06:34 Freq: ONCE Status: Active Protocol: Document 03/14/24 09:10 NAYA (Rec: 03/14/24 09:15 NAYA [id number]) Rehab OT IP Assessment Subjective History Alesha Szymanski is a 78-year-old female with a medical history significant for A-fib on Xarelto, aortic valve insufficiency, hypertension, GERD who presented with evaluation of abdominal pain. CT abdomen/pelvis revealed sigmoid colon perforation and patient was emergently taken to the OR by Dr. Hurtado s/p partial sigmoid colectomy and end colostomy. During ex lap, patient was noted to have severe colon impaction with surrounding stercoral and ischemic colitis. Patient was recently started on iron supplementation which probably exacerbated underlying constipation. Upon my evaluation, patient was comfortably laying in bed coming out of sedation. She noted some abdominal pain, but improved since presentation. Patient lives in basement at daughter's house. Independent with ADLS and fx'l mobility. Continues to drive. 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 Gardens as leisure tasks. Subjective My stomach is bothering me. Instructed Patient on proper hand and foot placement to complete supine->sit @ EOB-> stand x2 with Min A. Patient stood <15 secs each time. Patient able to sit @ EOB with SBA ~2-3 mins. Patient requested to lay back in bed requiring Max A. Objective Patient Orientation Person,Place,Name,Age Right Upper Extremity Gross ROM WFL Left Upper Extremity Gross ROM WFL Bed Mobility bed mobility - supine/sit Assist Level Minimal x 1 (25% assist) Transfer Training Sit/Stand Transfer Assist Level Minimal x 1 (25% assist) Rehab OT IP prob,goals,plan Problems Date of Evaluation: 03/14/24 OT IP Problems Bed Mobility,Transfers,Balance ,Self care,Safety Rehab Potential Rehab Potential Good Equipment Needs Assistive Devices Standard Walker Plan OT intervention Plan Bed Mobility,Transfers,Balance ,Self care,Safety,Therapeutic Exercise OT Plan Frequency Daily Duration LOS Discharge Goals Bed Mobility Ability Standby Assistance Sit to Stand Chair Transfer Ability Contact Guard/Hand Hold Chair Transfer Ability Contact Guard/Hand Hold Discharge Plan OT Discharge Plan Patient to return home with family with 03/10 care along with services. Patient to continue OT IP services while here at [facility]. Eval Complexity Eval Charge Codes 98431 - Low Complexity PHYSICIAN CERTIFICATION: I certify the specified therapy services for Alesha Szymanski are required, authorized, and reviewed every 30 days.
[2024-03-14 09:21] LABS: Troponin I 2.85 ng/ml (0.00-0.034)
[2024-03-14 09:22] LABS: Folate > 20.00 ng/mL
--- NOTE | 2024-03-14 09:24 | ECG_ITS ---
APPROVED REPORT Exam: Resting ECG HR:122 bpm ECG Measurements Heart Rate 122 AXES OH 136 P 23 QRSd 111 QRS 34 QT 304 T -6 QTc 377 Conclusion SINUS TACHYCARDIA LOW QRS VOLTAGE IN PRECORDIAL LEADS [QRS DEFLECTION < 1.0 mV IN CHEST LEADS] RIGHT BUNDLE BRANCH BLOCK [120+ ms QRS DURATION, UPRIGHT V1, 40+ ms S IN I/aVL/V4/V5/V6] ABNORMAL ECG UNCONFIRMED REPORT Electronically signed by : Rito Jamison MD 03/14/2024 13:58:39
--- NOTE | 2024-03-14 09:26 | CT_ITS ---
FINAL REPORT TECHNIQUE: Axial imaging of the chest is obtained after the administration of contrast. 3-D MIP reformatted images were also obtained and reviewed per PE protocol. CLINICAL HISTORY: tachycardic, hypoxic COMPARISON: 08/16/2022 FINDINGS: The pulmonary arteries are well filled. There is no evidence of pulmonary embolus. There is no aortic dissection. Heart size is normal. There is no mediastinal, hilar, or axillary lymphadenopathy. There are new small to moderate bilateral pleural effusions. There is new bilateral lower lobe airspace disease which is likely atelectasis and pneumonia. Limited evaluation of the upper abdomen demonstrate hypodense lesions in the kidneys. There appears to be trace perihepatic ascites. No acute osseous abnormality. IMPRESSION: No evidence of pulmonary embolism or aortic dissection. New small to moderate bilateral effusions with bilateral lower lobe airspace disease which is likely atelectasis and pneumonia. Reviewed, Interpreted and Dictated by Tamara Guy MD Transcribed by Carol Devine Authenticated and [facility]
--- NOTE | 2024-03-14 09:39 | HMH.ITSTN ---
called at 9:30 and spoke to nurse about gfr. said doc is holding fluids due to patient condition so she will call him to find out about next step and call me back
[2024-03-14] MEDS: SENNOSIDES 8.6MG/DOCUSATE 50MG TABLET 1 TAB PO (09:55)
[2024-03-14] MEDS: DIGOXIN 0.125MG TABLET 125 MCG PO (09:55)
[2024-03-14] MEDS: POLYETHYLENE GLYCOL 3350 17 GM PACKET PO (09:55)
[2024-03-14 10:00] LABS: Reflex Lactic Add Lactic Reflex
[2024-03-14] MEDS: PHENOL THROAT SPRAY 177 ML BOTTLE MM ×2 (10:01→16:12)
[2024-03-14 10:38] LABS: Lactic Acid Follow Up (RFLX 1) 2.4 mmol/L (0.7-2.1)
[2024-03-14] MEDS: 0.9 % SODIUM CHLORIDE 50 ML VIAL IV (12:19)
[2024-03-14] MEDS: IOPAMIDOL-370 (76%);100ML BOTTLE 70 ML IV (12:19)
[2024-03-14 12:25] LABS: Reflex Lactic (2 hrs) Add Lactic Reflex
--- NOTE | 2024-03-14 12:50 | P.CONCA_ITS ---
History of Present Illness History of Present Illness Consult date: 03/14/24 Requesting physician: Clayton Teixeira Consult reason: chest pain Chief complaint: CP, elevated troponin, tachycardia, post op Additional 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:: 1. History of Paroxysmal A. fib with SVT and PVC's on prior holter -maintaining NSR on combo of beta flor, digoxin and verapamil -on Xarelto 2. Hypertension -echo, EF 60-65%, mild AR. 08/2022 -normal renal artery duplex, 2020 3. Normal Adam myoview, 01/2020, EF 63% 4. chronic RBBB on EKG History of present illness: 78 yo WF admitted for acute abdomen with subsequent exploratory laparotomy, partial sigmoid colectomy and end colostomy. Complained of SOA and chest pain today with consult placed to Cardiology due to elevated troponin (2.85), elevated BNP (4240) and abnormal EKG (chronic RBBB with STT abnormalities unchanged compared to old tracings). Mild renal insufficiency since surgery with Cr up to 1.6 with BUN 38. Pt currently in ICU with NG tube and intermittent use of Levophed for BP support as needed. On piperacillin/tazobactam. BP currently around 100 mm Hg systolic after receiving morphine this AM. [facility] Disclaimer: The information contained in this section may have been updated after the patient was seen, as this information can be updated by other users. 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) GERD (gastroesophageal reflux disease) Dyspnea on exertion Chronic cough Shortness of Breath Chest pain Hypertension High cholesterol Afib Surgical History , BUSINESS OFFICE ASSISTANT) History of appendectomy Family History , BUSINESS OFFICE ASSISTANT) No significant family history Social History (Updated 03/13/24 @ 15:07 by Michelle Shelby RN) Smoking Status: Never smoker alcohol intake: never counseling provided: none (Patient does not smoke or use alcohol ) substance use type: denies use current occupational status: retired Travel in the last 8 weeks: None household members: family housing: house caffeine: Yes do you feel safe at home: Yes victim of physical abuse: No victim of emotional abuse: No victim of sexual abuse: No Have you lived/traveled outside [place] in past 30 days?: No Contact w/someone who lives/traveled outside US past 30 days?: No Exposure to someone with infectious disease in past 14 days?: No Do you have a fever (greater than 100.4 F or 38 C)?: No Have you tested positive for COVID-19: No Exposed to someone with COVID-19 in past 14 days?: No Do you have a sore throat?: No Do you have a cough?: No Do you have any weakness?: Yes Do you have any diarrhea?: No Are you experiencing any unusual bleeding?: No Do you have any muscle aches/pain?: No Do you have any abdominal pain?: No Are you experiencing loss of taste or smell?: No Review of Systems Review of Systems Review of systems:: pertinent systems reviewed and negative unless documented below *Cardiovascular Cardiovascular: Reports chest pain and Reports dyspnea *Respiratory Respiratory: Reports dyspnea *Gastrointestinal Gastrointestinal: Reports abdominal pain Exam Data for Last 24 hours Vital signs and Labs for Last 24 Hours: Temp Pulse Resp BP Pulse Ox O2 Del Method O2 Flow Rate 99.2 F 125 H 25 H 104/52 L 91 L Room Air 2 03/14/24 12:30 03/14/24 12:30 03/14/24 12:30 03/14/24 12:30 03/14/24 12:30 03/14/24 11:30 03/14/24 12:30 FiO2 92 03/13/24 18:30 Laboratory Results - last 24 hr 03/13/24 08:34: TSH 3.22 03/13/24 11:00: Iron 24 L, TIBC 438, Iron Saturation 5.71099 L, Ferritin 9.21 L 03/13/24 15:23: VBG pH 7.27 L, VBG pCO2 37.0, VBG pO2 36.6, VBG HCO3 16.8 L, VBG Total CO2 17.9 L, VBG O2 Saturation 68.2, VBG Base Excess -10.1 L, VBG Lactic Acid 3.9 H 03/13/24 15:35: WBC 2.3 L D, RBC 3.98 L D, Hgb 10.0 L D, Hct 31.6 L, MCV 79.4 L, MCH 25.6 L, MCHC 32.3, RDW 16.5, Plt Count 347 D, MPV 8.2, Neut % (Auto) 60.5, Lymph % (Auto) 32.9, [place] % (Auto) 5.8, Eos % (Auto) 0.0 L, Baso % (Auto) 0.4, Neut # (Auto) 1.4 L, Lymph # (Auto) 0.7, [place] # (Auto) 0.1, Eos # (Auto) 0.0, Baso # (Auto) 0.0, Sodium 132 L, Potassium 3.3 L, Chloride 105, Carbon Dioxide 18 L, Anion Gap 12.3, BUN 25 H, Creatinine 1.20 H, Estimated Creat Clear 34, Estimated GFR 44 L, Est GFR ( Amer) 53 L, Glucose 111 H D, Lactate 3.6 H, Calcium 6.9 L, Magnesium 1.7, Total Bilirubin 1.6 H, AST 38 H, ALT 24 D, Alkaline Phosphatase 27 L, NT-Pro-B Natriuret Pep 1170 H, Total Protein 3.9 L D, Albumin 2.0 L D, Globulin 1.9, Albumin/Globulin Ratio 1.1 03/13/24 17:47: Lactate 3.1 H 03/14/24 05:18: WBC 8.7 D, RBC 4.12 L, Hgb 10.4 L, Hct 32.3 L, MCV 78.4 L, MCH 25.2 L, MCHC 32.2, RDW 17.7 H, Plt Count 345, MPV 8.5, Neut % (Auto) 78.0, Lymph % (Auto) 10.4, [place] % (Auto) 3.2, Eos % (Auto) 0.3, Baso % (Auto) 0.1, Neut # (Auto) 6.8, Lymph # (Auto) 0.9, [place] # (Auto) 0.3, Eos # (Auto) 0.0, Baso # (Auto) 0.0, Sodium 133 L 03/14/24 05:18: Sodium 133 L, Potassium 4.3 D 03/14/24 05:18: Potassium 4.5, Chloride 107 03/14/24 05:18: Chloride 108 H, Carbon Dioxide 15 L 03/14/24 05:18: Carbon Dioxide 15 L, Anion Gap 15.3 H 03/14/24 05:18: Anion Gap 14.5, BUN 37 H D 03/14/24 05:18: BUN 38 H, Creatinine 1.60 H D 03/14/24 05:18: Creatinine 1.60 H, Estimated Creat Clear 28 03/14/24 05:18: Estimated Creat Clear 28, Estimated GFR 31 L 03/14/24 05:18: Estimated GFR 31 L, Est GFR ( Amer) 38 L D 03/14/24 05:18: Est GFR ( Amer) 38 L, Glucose 89 03/14/24 05:18: Glucose 88 D, Calcium 7.2 L 03/14/24 05:18: Calcium 7.1 L, Magnesium 2.0 D, Total Bilirubin 1.3, AST 46 H, ALT 26, Alkaline Phosphatase 23 L, Troponin I 2.85 H, NT-Pro-B Natriuret Pep 4240 H, Total Protein 4.0 L, Albumin 2.1 L, Globulin 1.9, Albumin/Globulin Ratio 1.1, Vitamin B12 866, Folate > 20.00, Free T4 2.10 03/14/24 06:00: VBG pH 7.32, VBG pCO2 31.4 L, VBG pO2 157.1 H, VBG HCO3 15.9 L, VBG Total CO2 16.8 L, VBG O2 Saturation 99.2 H, VBG Base Excess -10.2 L, VBG Lactic Acid 3.4 H 03/14/24 10:20: Lactate 2.4 H I & O for Last 24 hours: Intake & Output 03/12/24 03/13/24 03/14/24 03/15/24 11:59 11:59 11:59 11:59 Intake Total 1700 / 1700 5455.375 / 5455.375 Output Total 350 / 350 1275 / 1275 Balance 1350 / 1350 4180.375 / 4180.375 Weight 119 lb 132 lb 9.6 oz Microbiology Reports for the Last 24 Hours: Microbiology 03/13/24 08:39 Blood Blood Culture - Preliminary NO GROWTH AFTER 24 HOURS 03/13/24 08:34 Blood Blood Culture - Preliminary NO GROWTH AFTER 24 HOURS Constitutional Constitutional: mild distress *Routine Respiratory Exam Respiratory: Present decreased breath sounds; Absent rhonchi or wheezes *Routine Cardiovascular Exam Cardiovascular: Present RRR, murmur and tachycardia *Routine Extremities Exam Extremities: Absent edema Meds Home Medications and Allergies Home Medications ?Medication ?Instructions ?Recorded ?Confirmed ?Type aspirin 81 mg tablet,delayed 81 mg PO Q2D 12/31/19 03/13/24 History release (Adult Aspirin Regimen) digoxin 250 mcg (0.25 mg) tablet 125 mcg PO DAILY 12/31/19 03/13/24 History verapamil 120 mg tablet,extended 120 mg PO BID BP 12/31/19 03/13/24 History release simvastatin 40 mg tablet 40 mg PO HS 12/04/20 03/13/24 History metoprolol succinate 50 mg 50 mg PO DAILY 04/01/21 03/13/24 History tablet,extended release 24 hr rivaroxaban 15 mg tablet 15 mg PO QPMWITHMEAL 07/19/23 03/13/24 History albuterol sulfate 90 mcg/actuation 1 puff inhalation QIDP PRN 01/11/24 03/13/24 History aerosol inhaler Shortness Of Breath Or Wheezing pantoprazole 40 mg tablet,delayed 40 mg PO HS 01/11/24 03/13/24 History release estradiol 0.01% (0.1 mg/gram) 0.5 appful vaginal .3x weekly 01/18/24 03/13/24 Rx vaginal cream (Estrace) #42.5 grams losartan 50 mg tablet 50 mg PO DAILY 03/09/24 03/13/24 History levofloxacin 500 mg tablet 500 mg PO DAILY #5 tabs 03/10/24 03/13/24 Rx prednisone 10 mg tablet 10 mg PO DAILY #5 tabs 03/10/24 03/13/24 Rx New Prescriptions to Start Prescriptions: Allergies Allergy/AdvReac Type Severity Reaction Status Date / Time No Known Allergies Allergy Verified 02/29/24 12:05 Assessment and Plan *Assessment and plan (1) Rupture of colon: Status: Acute Category: Medical Code(s): K63.1 - Perforation of intestine (nontraumatic) (2) Elevated troponin: Status: Acute Category: Medical Code(s): R79.89 - Other specified abnormal findings of blood chemistry (3) Anemia: Problem Comment: Not sure anemia is related to exclusively vaginal bleeding. She states this is improving. Agree with [employer] for no need for intervention at this point. I am unclear about why patient is on Xarelto. Cardiology notes record atrial fibrillation but I can see no actual A-fib either on a Holter report that I read last year or any EKG recently. Patient states she is on the blood thinner so I do not have a heart attack. This may need to be readdressed with primary family practice office. I do not think her shortness of air is from the anemia and this seems to be perhaps a more chronic problem. I think this would be best worked up as an outpatient, I do not see a need for active transfusion at this point given normal vital signs. Status: Acute Qualifiers: Anemia type: other cause Other causes of anemia: acute posthemorrhagic Qualified Code(s): D62 - Acute posthemorrhagic anemia Category: Medical Code(s): D64.9 - Anemia, unspecified (4) Hypertension: Status: Chronic Qualifiers: Hypertension type: essential hypertension Qualified Code(s): I10 - E ssential (primary) hypertension Category: Medical Code(s): I10 - Essential (primary) hypertension (5) PAF (paroxysmal atrial fibrillation): Status: Acute Category: Medical Code(s): I48.0 - Paroxysmal atrial fibrillation Plan 1. Perforated bowel secondary to stercoral colitis, s/p exploratory laparotomy, partial sigmoid colectomy and end colostomy -per surgery 2. Elevated troponin likely due to stress/demand ischemia from #1 -Echo shows hyperdynamic EF of 70% with mild hypokinesis of LV apex vs image dropout on echo 3. History of PAF -previously controlled on BB, dig, and verapamil -on Xarelto 4. sinus tachycardia -gentle hydration should help check CTA of chest to rule out PE start normal saline at 75 ml/hr
[2024-03-14] MEDS: 0.9 % SODIUM CHLORIDE 1000ML 1,000 ML 75 ML IV (12:57)
[2024-03-14 13:10] LABS: Lactic Acid Follow up (RFLX 2) 2.6 mmol/L (0.7-2.1)
[2024-03-14] MEDS: DOXYCYCLINE HYCLATE 100 MG in 0.9 % SODIUM CHLORIDE 250 ML 166.667 MG IV (15:03)
--- NOTE | 2024-03-14 15:12 | PC.NURSE ---
Bowel sounds hypoactive. Patient complained of pain relieved with prn morphine. Patient's bp began to drop, md aware as well as cardiology. Morphine discontinued and norco ordered. Patient has been resting since working with pt/ot and after chest cta. Norman sounds diminished. Patient tachycardic, heart rate 120's. MD aware.
--- NOTE | 2024-03-14 15:19 | EXP.PN ---
Subjective *Date: 03/14/24 *Time: 15:19 Interval history: Patient doing better than yesterday, seems more euvolemic today. Weaned from 6 L to 2 L of cannula. Exam Data for Last 24 hours Vital signs and Labs for Last 24 Hours: Temp Pulse Resp BP Pulse Ox O2 Del Method O2 Flow Rate 99.2 F 127 H 24 124/57 L 92 L Nasal Cannula 2 03/14/24 12:30 03/14/24 14:00 03/14/24 14:00 03/14/24 14:00 03/14/24 14:00 03/14/24 15:00 03/14/24 15:00 FiO2 92 03/13/24 18:30 Laboratory Results - last 24 hr 03/13/24 08:34: TSH 3.22 03/13/24 11:00: Iron 24 L, TIBC 438, Iron Saturation 5.30402 L, Ferritin 9.21 L 03/13/24 15:23: VBG pH 7.27 L, VBG pCO2 37.0, VBG pO2 36.6, VBG HCO3 16.8 L, VBG Total CO2 17.9 L, VBG O2 Saturation 68.2, VBG Base Excess -10.1 L, VBG Lactic Acid 3.9 H 03/13/24 15:35: WBC 2.3 L D, RBC 3.98 L D, Hgb 10.0 L D, Hct 31.6 L, MCV 79.4 L, MCH 25.6 L, MCHC 32.3, RDW 16.5, Plt Count 347 D, MPV 8.2, Neut % (Auto) 60.5, Lymph % (Auto) 32.9, [place] % (Auto) 5.8, Eos % (Auto) 0.0 L, Baso % (Auto) 0.4, Neut # (Auto) 1.4 L, Lymph # (Auto) 0.7, [place] # (Auto) 0.1, Eos # (Auto) 0.0, Baso # (Auto) 0.0, Sodium 132 L, Potassium 3.3 L, Chloride 105, Carbon Dioxide 18 L, Anion Gap 12.3, BUN 25 H, Creatinine 1.20 H, Estimated Creat Clear 34, Estimated GFR 44 L, Est GFR ( Amer) 53 L, Glucose 111 H D, Lactate 3.6 H, Calcium 6.9 L, Magnesium 1.7, Total Bilirubin 1.6 H, AST 38 H, ALT 24 D, Alkaline Phosphatase 27 L, NT-Pro-B Natriuret Pep 1170 H, Total Protein 3.9 L D, Albumin 2.0 L D, Globulin 1.9, Albumin/Globulin Ratio 1.1 03/13/24 17:47: Lactate 3.1 H 03/14/24 05:18: WBC 8.7 D, RBC 4.12 L, Hgb 10.4 L, Hct 32.3 L, MCV 78.4 L, MCH 25.2 L, MCHC 32.2, RDW 17.7 H, Plt Count 345, MPV 8.5, Neut % (Auto) 78.0, Lymph % (Auto) 10.4, [place] % (Auto) 3.2, Eos % (Auto) 0.3, Baso % (Auto) 0.1, Neut # (Auto) 6.8, Lymph # (Auto) 0.9, [place] # (Auto) 0.3, Eos # (Auto) 0.0, Baso # (Auto) 0.0, Sodium 133 L 03/14/24 05:18: Sodium 133 L, Potassium 4.3 D 03/14/24 05:18: Potassium 4.5, Chloride 107 03/14/24 05:18: Chloride 108 H, Carbon Dioxide 15 L 03/14/24 05:18: Carbon Dioxide 15 L, Anion Gap 15.3 H 03/14/24 05:18: Anion Gap 14.5, BUN 37 H D 03/14/24 05:18: BUN 38 H, Creatinine 1.60 H D 03/14/24 05:18: Creatinine 1.60 H, Estimated Creat Clear 28 03/14/24 05:18: Estimated Creat Clear 28, Estimated GFR 31 L 03/14/24 05:18: Estimated GFR 31 L, Est GFR ( Amer) 38 L D 03/14/24 05:18: Est GFR ( Amer) 38 L, Glucose 89 03/14/24 05:18: Glucose 88 D, Calcium 7.2 L 03/14/24 05:18: Calcium 7.1 L, Magnesium 2.0 D, Total Bilirubin 1.3, AST 46 H, ALT 26, Alkaline Phosphatase 23 L, Troponin I 2.85 H, NT-Pro-B Natriuret Pep 4240 H, Total Protein 4.0 L, Albumin 2.1 L, Globulin 1.9, Albumin/Globulin Ratio 1.1, Vitamin B12 866, Folate > 20.00, Free T4 2.10 03/14/24 06:00: VBG pH 7.32, VBG pCO2 31.4 L, VBG pO2 157.1 H, VBG HCO3 15.9 L, VBG Total CO2 16.8 L, VBG O2 Saturation 99.2 H, VBG Base Excess -10.2 L, VBG Lactic Acid 3.4 H 03/14/24 10:20: Lactate 2.4 H 03/14/24 12:50: Lactate 2.6 H I & O for Last 24 hours: Intake & Output 03/11/24 03/12/24 03/13/24 03/14/24 23:59 23:59 23:59 23:59 Intake Total 6204.5 / 6404.5 950.875 / 950.875 Output Total 700 / 760 1250 / 1250 Balance 5504.5 / 5644.5 -299.125 / -299.125 Weight 53.977 kg 60 kg Microbiology Reports for the Last 24 Hours: Microbiology 03/13/24 08:39 Blood Blood Culture - Preliminary NO GROWTH AFTER 24 HOURS 03/13/24 08:34 Blood Blood Culture - Preliminary NO GROWTH AFTER 24 HOURS Constitutional Constitutional: no acute distress *Routine HEENT Exam Head: Present normocephalic Eye: Present EOMI and PERRL ENT: Present mucous membranes moist *Routine Neck Exam Neck: Present supple; Absent lymphadenopathy *Routine Respiratory Exam Respiratory: Absent respiratory distress *Routine Cardiovascular Exam Cardiovascular: Absent tachycardia *Routine Abdominal Exam Abdominal: Present soft, normoactive bowel sounds and tenderness Comments: Ostomy viable *Routine Extremities Exam Extremities: Absent cyanosis, clubbing or edema *Routine Skin Exam Skin: Present warm; Absent rash *Routine Neurological Exam Neurological: Present alert and oriented X3 Assessment and Plan *Assessment and plan (1) Sepsis: Status: Acute Category: Medical Code(s): A41.9 - Sepsis, unspecified organism (2) Rupture of colon: Status: Acute Category: Medical Code(s): K63.1 - Perforation of intestine (nontraumatic) (3) Ischemic colitis: Status: Deleted Category: Medical Code(s): K55.9 - Vascular disorder of intestine, unspecified (4) Stercoral colitis: Status: Acute Category: Medical Code(s): K52.89 - Other specified noninfective gastroenteritis and colitis (5) Anemia: Problem Comment: Not sure anemia is related to exclusively vaginal bleeding. She states this is improving. Agree with PACS SPECIALIST for no need for intervention at this point. I am unclear about why patient is on Xarelto. Cardiology notes record atrial fibrillation but I can see no actual A-fib either on a Holter report that I read last year or any EKG recently. Patient states she is on the blood thinner so I do not have a heart attack. This may need to be readdressed with primary family practice office. I do not think her shortness of air is from the anemia and this seems to be perhaps a more chronic problem. I think this would be best worked up as an outpatient, I do not see a need for active transfusion at this point given normal vital signs. Status: Acute Qualifiers: Anemia type: other cause Other causes of anemia: acute posthemorrhagic Qualified Code(s): D62 - Acute posthemorrhagic anemia Category: Medical Code(s): D64.9 - Anemia, unspecified (6) Atrial fibrillation: Status: Deleted Qualifiers: Atrial fibrillation type: paroxysmal Qualified Code(s): I48.0 - Paroxysmal atrial fibrillation Category: Medical Code(s): I48.91 - Unspecified atrial fibrillation (7) Hypertension: Status: Chronic Qualifiers: Hypertension type: essential hypertension Qualified Code(s): I10 - Essential (primary) hypertension Category: Medical Code(s): I10 - Essential (primary) hypertension (8) GERD (gastroesophageal reflux disease): Status: Deleted Category: Medical Code(s): K21.9 - Gastro-esophageal reflux disease without esophagitis Plan Alesha Szymanski is a 78-year-old female with a medical history significant for A-fib on Xarelto, aortic valve insufficiency, hypertension, GERD who presented with evaluation of abdominal pain. CT abdomen/pelvis revealed sigmoid colon perforation and patient was emergently taken to the OR by Dr. Hurtado s/p partial sigmoid colectomy and end colostomy. During ex lap, patient was noted to have severe colon impaction with surrounding stercoral and ischemic colitis. Patient was recently started on iron supplementation which probably exacerbated underlying constipation. Upon my evaluation, patient was comfortably laying in bed coming out of sedation. She noted some abdominal pain, but improved since presentation. #Sigmoid colon perforation #Septic shock #Ischemic colitis #Stercoral colitis, severe fecal impaction ? General Surgery consulted, s/p ex lap 03/13/2024 with partial sigmoid colectomy and end colostomy, and fecal disimpaction. ? Discussed case with Dr. Hurtado extensively, will treat ischemic/stercoral colitis with IV antibiotics, hydration for now. May need surgical revision if signs of ischemic colitis re-present. ? Continues to be sinus tachycardic, tachypneic. Received sepsis bolus in the ED. ? WBC has improved from 2.3-8.7. ? Continue Zosyn day 2. Follow-up blood cultures. ? Weaned off Levophed. Cautious on vasopressors in the setting of ischemic colitis. Avoid phenylephrine. Can consider low-dose vasopressin if needed as secondary. ? Holding off on IV fluids for now as there signs of mild fluid overload. Follow-up BNP. ? Clear liquid diet. ? MiraLAX, docusate, senna daily. ? Continue to trend lactate in the setting of ischemic colitis. Lactate improving from 9-2.6. #Elevated troponin #Elevated BNP ? Patient looks volume overloaded yesterday with sepsis bolus and IV fluids during procedure. [place] more euvolemic today. ? BNP increased to 4240 today. Troponin bumped from 0.05-2.85. EKG without acute ischemic changes. ? Cardiology consulted, agreed this is likely from demand ischemia. Also having persistent sinus tachycardia which is likely also contributing. ? Continue to trend troponins, EKGs. ? Cardiology started gentle IV NS at 75 mL/h in the setting of sinus tachycardia. Will follow-up signs for volume overload. #Suspected hospital-acquired pneumonia ? CT reveals bibasilar opacities in the setting of septic shock. ? Continue Zosyn, started doxycycline. ? Follow-up blood cultures ? Weaned from 6 L to 2 L nasal cannula #Acute on chronic microcytic anemia ? Initial hemoglobin 7.7 improved to 10.0 on repeat CBC this afternoon. MCV 79.4 ? Iron studies reveal significant iron deficiency. ? Plan to give IV Venofer as septic shock improves. ? No signs of nicole bleeding. Likely secondary to ischemic colitis as above. #Paroxysmal A-fib #Hypertension ? Currently in sinus tachycardia. ? Holding Xarelto in the setting of acute on chronic anemia. Can be resumed after hemoglobin stabilizes. ? Continue home metoprolol succinate 50 mg, digoxin 125 mcg. Resume home verapamil as BP improves. #GERD ? Resume home PPI. #Hyperlipidemia ? Resume home statin. Full code Home Xarelto
--- NOTE | 2024-03-14 15:39 | P.PNANES_ITS ---
[facility] Anesthesia Record Part II Anesthesia Record Part II Discharge Time: 14:05 Destination: Medical Surgical Department PACU nurse assessment reviewed?: Yes Patient Condition:: Good Anesthesia Complications:: None Swallowing reflex intact?: Yes Airway Patency: Patent Cyanosis?: No Blood Pressure: 142/76 SaO2: 94 Respiratory Rate: 18 Pulse Rate: 135 Temperature: 98.7 F Mental Status: Alert & Oriented Pain level:: 0 Nausea and/or vomitting:: None Intake, IV Amount: 0 Hydration: Adequate
[2024-03-14] MEDS: METOPROLOL SUCCINATE XL 50MG TABLET 50 MG PO (16:03)
[2024-03-14 16:42] LABS: Troponin I 1.94 ng/ml (0.00-0.034)
[2024-03-14] MEDS: RIVAROXABAN 15MG TABLET 15 MG PO (16:45)
[2024-03-14] MEDS: POTASSIUM CHLORIDE 20MEQ/15ML UDC 40 MEQ NG-TUBE (16:46)
[2024-03-14] MEDS: FUROSEMIDE 40MG/4ML VIAL 40 MG IV (17:47)
[2024-03-14] MEDS: SODIUM CHLORIDE 3% 15ML NEB 3 ML IH (20:18)
[2024-03-14] MEDS: FAMOTIDINE 20MG/2ML VIAL 20 MG IV (20:40)
[2024-03-14 21:44] LABS: Lactic Acid 1.7 mmol/L (0.7-2.1)
[2024-03-15] VITALS (51 sets, daily range): BP systolic 104–162; BP diastolic 55–95; PULSE 92–127; RESP 18–53; TEMP 36.8–37.1; O2SAT 91–97; BMI 29.1
[2024-03-15] MEDS: DOXYCYCLINE HYCLATE 100 MG in 0.9 % SODIUM CHLORIDE 250 ML 166.667 MG IV ×2 (01:40→13:43)
--- NOTE | 2024-03-15 02:23 | XR_ITS ---
PROCEDURE INFORMATION: Exam: XR Abdomen Exam date and time: 03/15/2024 2:35 AM Age: 78 years old Clinical indication: Other: Ng tube placement; Additional info: Ng placement TECHNIQUE: Imaging protocol: Radiologic exam of the abdomen. Views: Frontal supine view of the abdomen. 1 View. COMPARISON: CT ABDOMEN PELVIS W CON 03/13/2024 9:00 AM FINDINGS: Tubes, catheters and devices: Enteric tube with catheter tip and side fenestration subdiaphragmatic in the left upper quadrant. Presumed surgical drain is seen midline. Pessary device is seen within the pelvis. Gastrointestinal tract: Heavy colonic stool burden. Paucity of small bowel gas. Intraperitoneal space: Midline lower abdominal surgical quin[place]. Vasculature: Atherosclerotic disease. Bones/joints: Diffuse degenerative change of the visualized osseous structures. IMPRESSION: 1. Medical devices as above. 2. Postsurgical change without evidence for acute abdominal findings. 3. Heavy colonic stool burden.
--- NOTE | 2024-03-15 02:44 | PC.NURSE ---
pt pulled out NG tube around 0230. Nurse went to assess and noticed the NG tube in bed w/ pt. A new NG tube was placed in the right nare @58. Stat KUB was obtained and showed correct placement. NG hooked back up to intermittent suction. Provider made aware.
--- NOTE | 2024-03-15 03:34 | PC.NURSE ---
pt pulled NG tube out again despite given previous education and having mittens on. When explaining to the pt that the nurse needed to replace it again the pt refused. Pt was given education on the risks and side effects of not having NG tube placed, but pt still refused. Pt refusal was witnessed by Jordan ENGLISH at bedside. Provider notified.
[2024-03-15] MEDS: PIPERCILLIN/TAZO 3.375 GM in 0.9 % SODIUM CHLORIDE 50 ML IV ×2 (03:37→08:30)
--- NOTE | 2024-03-15 03:42 | EXP.EVENT.NO ---
Patient has been doing well tonight she had been stable but mildly confused pulled out her NG tube. Nursing staff talked with her put her in mitts and put the NG tube back and got x-ray verifying proper location. But even though she had the mitts on the patient was able to pull the NG tube out again. Nurse called me and updated me on this second event. And I would just let her know to leave it out it is already almost 4 AM we will let the surgeon decide if it needs to go back. Besides that the patient is doing well
[2024-03-15] MEDS: HYDROCODONE/APAP 5/325 MG TABLET 1 TAB PO ×3 (03:53→20:26)
[2024-03-15 05:53] LABS: Albumin Level 2.4 g/dl (3.5-5.0); Chloride 108 mmol/L (98-107); Sodium 134 mmol/L (136-145)
[2024-03-15 05:54] LABS: Potassium 3.6 mmoL/L (3.5-5.1)
[2024-03-15 05:56] LABS: Alanine Aminotransferase 29 U/L (12-78); Alkaline Phosphatase 52 U/L (38-126); Anion Gap 13.6 mEq/L (5-15); Aspartate Amino Transferase 54 U/L (14-36); Bilirubin,Total 1.5 mg/dl (0.2-1.3); Blood Urea Nitrogen 48 mg/dl (7-17); Carbon Dioxide 16 mmol/L (22.0-30.0); Creatinine Clearance Estimated 24 mL/min (50-200); Estimated Glomerular Filt Rate 26 ml/min (>60); GFR (African American) 31 ML/MIN (>60); Globulin 2.5 g/dL (1.3-3.2); Total Protein,Serum 4.9 g/dl (6.3-8.2)
[2024-03-15 05:57] LABS: Calcium 6.7 mg/dl (8.4-10.2); Glucose 109 mg/dl (74-100); Magnesium 2.3 mg/dl (1.6-2.3)
[2024-03-15 07:39] LABS: Basophils # 0.1 K/mm3 (0-0.2); Basophils % 0.9 % (0.1-2.0); Hematocrit 25.3 % (37.0-47.0); Hemoglobin 8.3 g/dL (12.2-16.2); Lymphocytes # 0.7 K/mm3 (0.7-4.5); Lymphocytes % 4.4 % (10-50); Mean Corpuscular HGB Conc 32.8 g/dL (31.8-35.4); Mean Corpuscular Hemoglobin 25.1 pg (27.0-31.2); Mean Corpuscular Volume 76.4 fl (81-99); Monocytes # 0.4 K/mm3 (0.1-1.0); Monocytes % 2.4 % (1.7-9.3); Neutrophils # 14.6 K/mm3 (1.8-7.8); Neutrophils % 91.8 % (37.0-80.0); Platelet Count 337 K/mm3 (142-424); Red Blood Count 3.31 M/mm3 (4.20-5.40); Red Cell Distribution Width 17.7 % (11.5-17.5); White Blood Count 15.9 K/mm3 (4.8-10.8)
[2024-03-15 07:44] LABS: MANUAL DIFFERENTIAL MANUAL DIFFERENTIAL (MANUAL DIFF)
[2024-03-15] MEDS: 0.9 % SODIUM CHLORIDE 1000ML 1,000 ML 100 ML IV (08:28)
[2024-03-15] MEDS: ASPIRIN EC 81MG TABLET 81 MG PO (08:29)
[2024-03-15] MEDS: DIGOXIN 0.125MG TABLET 125 MCG PO (08:29)
[2024-03-15] MEDS: POLYETHYLENE GLYCOL 3350 17 GM PACKET PO ×2 (08:30→20:26)
[2024-03-15] MEDS: SENNOSIDES 8.6MG/DOCUSATE 50MG TABLET 2 TAB PO (08:30)
[2024-03-15] MEDS: MILK OF MAGNESIA 30ML UDC 30 ML PO ×2 (08:31→20:26)
[2024-03-15] MEDS: SODIUM BICARBONATE 650MG TABLET 650 MG PO ×2 (08:31→20:26)
--- NOTE | 2024-03-15 08:33 | EXP.SURG.PN ---
Subjective Patient reports: feels better and still having pain Narrative: The patient is sitting in chair and states that she feels a little bit better . Exam Data for Last 24 hours Vital signs and Labs for Last 24 Hours: Temp Pulse Resp BP Pulse Ox O2 Del Method O2 Flow Rate 98.2 F 117 H 18 119/59 L 96 Nasal Cannula 2 03/15/24 08:00 03/15/24 08:29 03/15/24 07:40 03/15/24 07:40 03/15/24 07:40 03/15/24 07:40 03/15/24 07:40 FiO2 92 03/13/24 18:30 Laboratory Results - last 24 hr 03/14/24 05:18: Troponin I 2.85 H, Vitamin B12 866, Folate > 20.00, Free T4 2.10 03/14/24 10:20: Lactate 2.4 H 03/14/24 12:50: Lactate 2.6 H 03/14/24 16:05: Troponin I 1.94 H 03/14/24 21:07: Lactate 1.7 03/15/24 05:36: WBC 15.9 H D, RBC 3.31 L, Hgb 8.3 L, Hct 25.3 L, MCV 76.4 L, MCH 25.1 L, MCHC 32.8, RDW 17.7 H, Plt Count 337, MPV 9.0, Neut % (Auto) 91.8 H, Lymph % (Auto) 4.4 L, [place] % (Auto) 2.4, Eos % (Auto) 0.0 L, Baso % (Auto) 0.9, Neut # (Auto) 14.6 H, Lymph # (Auto) 0.7, [place] # (Auto) 0.4, Eos # (Auto) 0.0, Baso # (Auto) 0.1, Sodium 134 L, Potassium 3.6, Chloride 108 H, Carbon Dioxide 16 L, Anion Gap 13.6, BUN 48 H D, Creatinine 1.90 H, Estimated Creat Clear 24, Estimated GFR 26 L, Est GFR ( Amer) 31 L, Glucose 109 H, Calcium 6.7 L, Magnesium 2.3 D, Total Bilirubin 1.5 H, AST 54 H, ALT 29, Alkaline Phosphatase 52, Total Protein 4.9 L, Albumin 2.4 L D, Globulin 2.5, Albumin/Globulin Ratio 1.0 L I & O for Last 24 hours: Intake & Output 03/12/24 03/13/24 03/14/24 03/15/24 11:59 11:59 11:59 11:59 Intake Total 1700 / 1700 5455.375 / 5455.375 1206 / 1206 Output Total 350 / 350 1275 / 1275 3025 / 3025 Balance 1350 / 1350 4180.375 / 4180.375 -1819 / -1819 Weight 119 lb 132 lb 9.6 oz 135 lb Microbiology Reports for the Last 24 Hours: Microbiology 03/13/24 08:34 Blood Blood Culture - Preliminary 03/13/24 08:39 Blood Blood Culture - Preliminary NO GROWTH AFTER 24 HOURS Constitutional Constitutional: no acute distress *Routine Respiratory Exam Respiratory: Absent respiratory distress *Routine Cardiovascular Exam Cardiovascular: Absent tachycardia *Routine Abdominal Exam Comments: Ostomy remains viable Progress Note: A&P Assessment and plan (1) Sepsis: Status: Acute Assessment and plan: Postoperative day 2 status post exploratory laparotomy, partial sigmoid colectomy, and end colostomy Continue PT/OT Ambulation to the degree possible Continue antibiotics (2) Rupture of colon: Status: Acute (3) Ischemic colitis: Status: Deleted (4) Stercoral colitis: Status: Acute (5) Anemia: Problem details: Not sure anemia is related to exclusively vaginal bleeding. She states this is improving. Agree with PHARMACY TECH CUSTOMER SERVICE for no need for intervention at this point. I am unclear about why patient is on Xarelto. Cardiology notes record atrial fibrillation but I can see no actual A-fib either on a Holter report that I read last year or any EKG recently. Patient states she is on the blood thinner so I do not have a heart attack. This may need to be readdressed with primary family practice office. I do not think her shortness of air is from the anemia and this seems to be perhaps a more chronic problem. I think this would be best worked up as an outpatient, I do not see a need for active transfusion at this point given normal vital signs. Status: Acute (6) Atrial fibrillation: Status: Deleted (7) Hypertension: Status: Chronic (8) GERD (gastroesophageal reflux disease): Status: Deleted
[2024-03-15] MEDS: METOPROLOL SUCCINATE XL 50MG TABLET 50 MG PO (08:48)
--- NOTE | 2024-03-15 08:49 | PC.NURSE ---
pt/ot at bedside to ambulate patient.
[2024-03-15] MEDS: ACETAMINOPHEN 325MG TAB 650 MG PO (09:44)
[2024-03-15 10:03] LABS: POC Glucose,Bedside 264 (70-110)
--- NOTE | 2024-03-15 10:52 | P.PN_ITS ---
Subjective Subjective Date: 03/15/24 Time: 10:53 Principal diagnosis: Post op colostomy Interval history: 78-year-old white female in the ICU in bedside chair in no acute distress. Slightly confused but reorients quickly. Patient pulled out her NG tube last evening and seems to be tolerating without issues. Patient's blood pressure has stabilized around 115-120 mmHg systolic. No longer needing Levophed Heart rate still around 110 bpm and is sinus on telemetry Hemoglobin down to 8.3 from 10.4 White count up to 15,900 BUN/creatinine slightly elevated at 48 and 1.9 compared to yesterday's 38 and 1.6 Exam Data for Last 24 hours Vital signs and Labs for Last 24 Hours: Temp Pulse Resp BP Pulse Ox O2 Del Method O2 Flow Rate 98.2 F 99 H 22 117/66 97 Nasal Cannula 2 03/15/24 08:00 03/15/24 10:00 03/15/24 10:00 03/15/24 10:00 03/15/24 10:00 03/15/24 10:00 03/15/24 10:00 FiO2 92 03/13/24 18:30 Laboratory Results - last 24 hr 03/14/24 12:50: Lactate 2.6 H 03/14/24 16:05: Troponin I 1.94 H 03/14/24 21:07: Lactate 1.7 03/15/24 02:05: POC Glucose 264 H 03/15/24 05:36: WBC 15.9 H D, RBC 3.31 L, Hgb 8.3 L, Hct 25.3 L, MCV 76.4 L, MCH 25.1 L, MCHC 32.8, RDW 17.7 H, Plt Count 337, MPV 9.0, Neut % (Auto) 91.8 H, Lymph % (Auto) 4.4 L, [place] % (Auto) 2.4, Eos % (Auto) 0.0 L, Baso % (Auto) 0.9, Neut # (Auto) 14.6 H, Lymph # (Auto) 0.7, [place] # (Auto) 0.4, Eos # (Auto) 0.0, Baso # (Auto) 0.1, Sodium 134 L, Potassium 3.6, Chloride 108 H, Carbon Dioxide 16 L, Anion Gap 13.6, BUN 48 H D, Creatinine 1.90 H, Estimated Creat Clear 24, Estimated GFR 26 L, Est GFR ( Amer) 31 L, Glucose 109 H, Calcium 6.7 L, Magnesium 2.3 D, Total Bilirubin 1.5 H, AST 54 H, ALT 29, Alkaline Phosphatase 52, Total Protein 4.9 L, Albumin 2.4 L D, Globulin 2.5, Albumin/Globulin Ratio 1.0 L I & O for Last 24 hours: Intake & Output 03/12/24 03/13/24 03/14/24 03/15/24 11:59 11:59 11:59 11:59 Intake Total 1700 / 1700 5455.375 / 5455.375 1856 / 1856 Output Total 350 / 350 1275 / 1275 3275 / 3275 Balance 1350 / 1350 4180.375 / 4180.375 -1419 / -1419 Weight 119 lb 132 lb 9.6 oz 135 lb Microbiology Reports for the Last 24 Hours: Microbiology 03/13/24 08:39 Blood Antimicrobic Susceptibility - Final Not Reportable 03/13/24 08:39 Blood - Final Not Reportable 03/13/24 08:39 Blood - Final Not Reportable 03/13/24 08:39 Blood - Final Not Reportable 03/13/24 08:39 Blood - Final Not Reportable 03/13/24 08:39 Blood - Final Not Reportable 03/13/24 08:39 Blood - Final Not Reportable 03/13/24 08:39 Blood - Final Not Reportable 03/13/24 08:39 Blood - Final Not Reportable 03/13/24 08:39 Blood - Final Not Reportable 03/13/24 08:39 Blood Blood Culture - Final 03/13/24 08:34 Blood Blood Culture - Preliminary Constitutional Constitutional: no acute distress *Routine Respiratory Exam Respiratory: Present decreased breath sounds; Absent rhonchi or wheezes *Routine Cardiovascular Exam Cardiovascular: Present murmur and tachycardia; Absent gallop or rubs Progress Note: A&P Assessment and plan (1) Sepsis: Status: Acute (2) Rupture of colon: Status: Acute (3) Stercoral colitis: Status: Acute (4) Anemia: Problem details: Not sure anemia is related to exclusively vaginal bleeding. She states this is improving. Agree with SOLUTION MAKE UP OPERATOR for no need for intervention at this point. I am unclear about why patient is on Xarelto. Cardiology notes record atrial fibrillation but I can see no actual A-fib either on a Holter report that I read last year or any EKG recently. Patient states she is on the blood thinner so I do not have a heart attack. This may need to be readdressed with primary family practice office. I do not think her shortness of air is from the anemia and this seems to be perhaps a more chronic problem. I think this would be best worked up as an outpatient, I do not see a need for active transfusion at this point given normal vital signs. Status: Acute (5) Hypertension: Status: Chronic Assessment and Plan Assessment and Plan for All Diagnoses:: 1. Perforated bowel secondary to stercoral colitis, s/p exploratory laparotomy, partial sigmoid colectomy and end colostomy -per surgery 2. Elevated troponin likely due to stress/demand ischemia from #1 -Echo shows hyperdynamic EF of 70% with mild hypokinesis of LV apex vs image dropout on echo 3. History of PAF -previously controlled on BB, dig, and verapamil as outpatient (held here due to BP). Will restart as tolerated except verapamil due to constipation/sterecoral colitis. -on Xarelto 4. sinus tachycardia -gentle hydration should help Oral hydration as tolerated. chronic Tachycardia exacerbated by recent events/surgery. Increase metoprolol slowly as BP tolerates. Avoid verapamil due to constipation issues. Recommend cardiac cath prior to discharge to clarify CAD status in setting of possible apical hypokinesis.
[2024-03-15 11:50] LABS: Hypochromasia 1+; Lymphocytes % 5 % (10-50); Monocytes % 3 % (2-9); Neutrophils % 92 % (42-76); Platelet Estimate Normal; Total Cells Counted 100
[2024-03-15] MEDS: ONDANSETRON 4MG/2ML VIAL 4 MG IV (12:20)
--- NOTE | 2024-03-15 13:15 | ECG_ITS ---
APPROVED REPORT Exam: Resting ECG HR:102 bpm ECG Measurements Heart Rate 102 AXES HI 144 P 36 QRSd 130 QRS 16 QT 364 T 54 QTc 423 Conclusion SINUS TACHYCARDIA RIGHT BUNDLE BRANCH BLOCK [120+ ms QRS DURATION, UPRIGHT V1, 40+ ms S IN I/aVL/V4/V5/V6] ABNORMAL ECG UNCONFIRMED REPORT Electronically signed by : Ananth Carranza, 03/15/2024 16:00:56
--- NOTE | 2024-03-15 13:20 | PC.NURSE ---
Called pt's daughter, Bisi, to give update on pt's status and plan of care.
[2024-03-15] MEDS: POTASSIUM CHLORIDE 20MEQ TAB 40 MEQ PO (13:21)
[2024-03-15] MEDS: PIPERACILLIN/TAZO 3.375 GM in 0.9 % SODIUM CHLORIDE 50 ML IV ×2 (17:31→20:30)
[2024-03-15] MEDS: RIVAROXABAN 15MG TABLET 15 MG PO (17:31)
[2024-03-15] MEDS: FAMOTIDINE 20MG/2ML VIAL 20 MG IV (20:27)
--- NOTE | 2024-03-15 21:42 | EXP.PN ---
Subjective *Date: 03/15/24 *Time: 21:44 Exam Data for Last 24 hours Vital signs and Labs for Last 24 Hours: Temp Pulse Resp BP Pulse Ox O2 Del Method O2 Flow Rate 98.7 F 116 H 24 162/77 H 93 L Room Air 2 03/15/24 20:00 03/15/24 21:02 03/15/24 21:02 03/15/24 21:02 03/15/24 21:02 03/15/24 20:00 03/15/24 18:52 FiO2 92 03/13/24 18:30 Laboratory Results - last 24 hr 03/14/24 21:07: Lactate 1.7 03/15/24 02:05: POC Glucose 264 H 03/15/24 05:36: WBC 15.9 H D, RBC 3.31 L, Hgb 8.3 L, Hct 25.3 L, MCV 76.4 L, MCH 25.1 L, MCHC 32.8, RDW 17.7 H, Plt Count 337, MPV 9.0, Neut % (Auto) 91.8 H, Lymph % (Auto) 4.4 L, [place] % (Auto) 2.4, Eos % (Auto) 0.0 L, Baso % (Auto) 0.9, Neut # (Auto) 14.6 H, Lymph # (Auto) 0.7, [place] # (Auto) 0.4, Eos # (Auto) 0.0, Baso # (Auto) 0.1, Total Counted 100, Neutrophils % (Manual) 92 H, Lymphocytes % (Manual) 5 L, Monocytes % (Manual) 3, Platelet Estimate Normal, Hypochromasia 1+, Sodium 134 L, Potassium 3.6, Chloride 108 H, Carbon Dioxide 16 L, Anion Gap 13.6, BUN 48 H D, Creatinine 1.90 H, Estimated Creat Clear 24, Estimated GFR 26 L, Est GFR ( Amer) 31 L, Glucose 109 H, Calcium 6.7 L, Magnesium 2.3 D, Total Bilirubin 1.5 H, AST 54 H, ALT 29, Alkaline Phosphatase 52, Total Protein 4.9 L, Albumin 2.4 L D, Globulin 2.5, Albumin/Globulin Ratio 1.0 L I & O for Last 24 hours: Intake & Output 03/12/24 03/13/24 03/14/24 03/15/24 23:59 23:59 23:59 23:59 Intake Total 6204.5 / 6404.5 1656.875 / 2156.875 1591 / 1591 Output Total 700 / 760 2400 / 2950 2985 / 2985 Balance 5504.5 / 5644.5 -743.125 / -793.125 -1394 / -1394 Weight 53.977 kg 60 kg 61.235 kg Microbiology Reports for the Last 24 Hours: Microbiology 03/13/24 08:39 Blood Antimicrobic Susceptibility - Final Not Reportable 03/13/24 08:39 Blood - Final Not Reportable 03/13/24 08:39 Blood - Final Not Reportable 03/13/24 08:39 Blood - Final Not Reportable 03/13/24 08:39 Blood - Final Not Reportable 03/13/24 08:39 Blood - Final Not Reportable 03/13/24 08:39 Blood - Final Not Reportable 03/13/24 08:39 Blood - Final Not Reportable 03/13/24 08:39 Blood - Final Not Reportable 03/13/24 08:39 Blood - Final Not Reportable 03/13/24 08:39 Blood Blood Culture - Final 03/13/24 08:34 Blood Blood Culture - Preliminary Constitutional Constitutional: no acute distress *Routine HEENT Exam Head: Present normocephalic Eye: Present EOMI and PERRL ENT: Present mucous membranes moist *Routine Neck Exam Neck: Present supple; Absent lymphadenopathy *Routine Respiratory Exam Respiratory: Absent respiratory distress *Routine Cardiovascular Exam Cardiovascular: Absent tachycardia *Routine Abdominal Exam Abdominal: Present soft, normoactive bowel sounds and tenderness Comments: Ostomy viable *Routine Extremities Exam Extremities: Absent cyanosis, clubbing or edema *Routine Skin Exam Skin: Present warm; Absent rash *Routine Neurological Exam Neurological: Present alert and oriented X3 Assessment and Plan *Assessment and plan (1) Sepsis: Status: Acute Category: Medical Code(s): A41.9 - Sepsis, unspecified organism (2) Rupture of colon: Status: Acute Category: Medical Code(s): K63.1 - Perforation of intestine (nontraumatic) (3) Ischemic colitis: Status: Deleted Category: Medical Code(s): K55.9 - Vascular disorder of intestine, unspecified (4) Stercoral colitis: Status: Acute Category: Medical Code(s): K52.89 - Other specified noninfective gastroenteritis and colitis (5) Anemia: Problem Comment: Not sure anemia is related to exclusively vaginal bleeding. She states this is improving. Agree with [employer] R[employer]ER for no need for intervention at this point. I am unclear about why patient is on Xarelto. Cardiology notes record atrial fibrillation but I can see no actual A-fib either on a Holter report that I read last year or any EKG recently. Patient states she is on the blood thinner so I do not have a heart attack. This may need to be readdressed with primary family practice office. I do not think her shortness of air is from the anemia and this seems to be perhaps a more chronic problem. I think this would be best worked up as an outpatient, I do not see a need for active transfusion at this point given normal vital signs. Status: Acute Qualifiers: Anemia type: other cause Other causes of anemia: acute posthemorrhagic Qualified Code(s): D62 - Acute posthemorrhagic anemia Category: Medical Code(s): D64.9 - Anemia, unspecified (6) Atrial fibrillation: Status: Deleted Qualifiers: Atrial fibrillation type: paroxysmal Qualified Code(s): I48.0 - Paroxysmal atrial fibrillation Category: Medical Code(s): I48.91 - Unspecified atrial fibrillation (7) Hypertension: Status: Chronic Qualifiers: Hypertension type: essential hypertension Qualified Code(s): I10 - Essential (primary) hypertension Category: Medical Code(s): I10 - Essential (primary) hypertension (8) GERD (gastroesophageal reflux disease): Status: Deleted Category: Medical Code(s): K21.9 - Gastro-esophageal reflux disease without esophagitis Plan Alesha Szymanski is a 78-year-old female with a medical history significant for A-fib on Xarelto, aortic valve insufficiency, hypertension, GERD who presented with evaluation of abdominal pain. CT abdomen/pelvis revealed sigmoid colon perforation and patient was emergently taken to the OR by Dr. Hurtado s/p partial sigmoid colectomy and end colostomy. During ex lap, patient was noted to have severe colon impaction with surrounding stercoral and ischemic colitis. Patient was recently started on iron supplementation which probably exacerbated underlying constipation. Upon my evaluation, patient was comfortably laying in bed coming out of sedation. She noted some abdominal pain, but improved since presentation. #Sigmoid colon perforation #Septic shock #Ischemic colitis #Stercoral colitis, severe fecal impaction ? General Surgery consulted, s/p ex lap 03/13/2024 with partial sigmoid colectomy and end colostomy, and fecal disimpaction. ? Discussed case with Dr. Hurtado extensively, will treat ischemic/stercoral colitis with IV antibiotics, hydration for now. May need surgical revision if signs of ischemic colitis re-present. ? Continues to be sinus tachycardic, tachypneic. Received sepsis bolus in the ED. ? WBC bumped from 8 to 15.9 today. - Started meropenem day 1, discontinued Zosyn. ? Weaned off Levophed. Cautious on vasopressors in the setting of ischemic colitis. Avoid phenylephrine. Can consider low-dose vasopressin if needed as secondary. ? Holding off on IV fluids for now as there signs of mild fluid overload. ? Clear liquid diet. Patient had abdominal distention today which improved with NG tube suction 500cc. - Will need to be more aggressive with bowel regimen. Added milk of magnesium, increased miralax and docusate/senna. ? Continue to trend lactate in the setting of ischemic colitis. Lactate improving from 9-1.7. - Plan for manual disimpaction tomorrow. #Elevated troponin #Elevated BNP ? Patient intially looked volume overloaded with sepsis bolus and IV fluids during procedure. Moura more euvolemic now. ? BNP increased to 4240. Troponin bumped from 0.05-2.85. EKG without acute ischemic changes. ? Cardiology consulted, agreed this is likely from demand ischemia from sepsis. ? SOB improved with Lasix 40mg once. #Suspected hospital-acquired pneumonia ? CT reveals bibasilar opacities in the setting of septic shock. ? Continue meropnem, doxycycline. ? BC showing light growth, sent to reference lab. ? Weaned from 6 L to 2 L nasal cannula #Acute on chronic microcytic anemia ? Initial hemoglobin 7.7 improved to 10.0 on repeat CBC this afternoon. MCV 79.4. - Dropped to 8.3 today, follow-up repeat CBC. ? Iron studies reveal significant iron deficiency. ? Plan to give IV Venofer as septic shock improves. ? No signs of nicole bleeding. Likely secondary to ischemic colitis as above. #Paroxysmal A-fib #Hypertension ? Currently in sinus tachycardia. ? Resumed Xarelto, dc if Hgb drops. ? Continue home metoprolol succinate 50 mg, digoxin 125 mcg - Resumed verapamil 120mg BID. #GERD ? Resume home PPI. #Hyperlipidemia ? Resume home statin. Full code Primo
[2024-03-15 22:30] LABS: Basophils # 0.1 K/mm3 (0-0.2); Basophils % 0.4 % (0.1-2.0); Eosinophils % 0.2 % (0.1-12.0); Hematocrit 22.9 % (37.0-47.0); Hemoglobin 7.8 g/dL (12.2-16.2); Lymphocytes # 0.8 K/mm3 (0.7-4.5); Lymphocytes % 4.5 % (10-50); Mean Corpuscular HGB Conc 34.1 g/dL (31.8-35.4); Mean Corpuscular Hemoglobin 25.5 pg (27.0-31.2); Mean Corpuscular Volume 74.8 fl (81-99); Mean Platelet Volume 8.7 fl (7.4-10.4); Monocytes # 0.4 K/mm3 (0.1-1.0); Monocytes % 2.2 % (1.7-9.3); Neutrophils # 16.6 K/mm3 (1.8-7.8); Neutrophils % 92.2 % (37.0-80.0); Platelet Count 305 K/mm3 (142-424); Red Blood Count 3.06 M/mm3 (4.20-5.40); Red Cell Distribution Width 16.7 % (11.5-17.5); White Blood Count 18.1 K/mm3 (4.8-10.8)
[2024-03-15 22:37] LABS: MANUAL DIFFERENTIAL MANUAL DIFFERENTIAL (MANUAL DIFF)
[2024-03-15] MEDS: MEROPENEM 1 GM in 0.9 % SODIUM CHLORIDE 100 ML IV (22:49)
[2024-03-15 23:37] LABS: Lymphocytes % 7 % (10-50); Monocytes % 1 % (2-9); Neutrophils % 92 % (42-76); Total Cells Counted 100
[2024-03-15 23:43] LABS: Anisocytosis 1+; Hypochromasia 1+; Macrocytosis 1+; Microcytosis 1+
[2024-03-15 23:44] LABS: Platelet Estimate Normal
[2024-03-16] VITALS (33 sets, daily range): BP systolic 125–175; BP diastolic 64–102; PULSE 64–130; RESP 14–29; TEMP 37–38.2; O2SAT 90–95; BMI 29.1
[2024-03-16] MEDS: 0.9 % SODIUM CHLORIDE 1000ML 1,000 ML 100 ML IV (01:37)
[2024-03-16] MEDS: DOXYCYCLINE HYCLATE 100 MG in 0.9 % SODIUM CHLORIDE 250 ML 166.667 MG IV ×2 (01:43→13:43)
[2024-03-16] MEDS: METOPROLOL TARTRATE 5MG/5ML VIAL 2.5 MG IV (02:49)
--- NOTE | 2024-03-16 03:06 | ECG_ITS ---
APPROVED REPORT Exam: Resting ECG HR:112 bpm ECG Measurements Heart Rate 112 AXES UT 145 P 12 QRSd 131 QRS 0 QT 325 T -17 QTc 391 Conclusion SINUS TACHYCARDIA RIGHT BUNDLE BRANCH BLOCK [120+ ms QRS DURATION, UPRIGHT V1, 40+ ms S IN I/aVL/V4/V5/V6] ABNORMAL ECG UNCONFIRMED REPORT Electronically signed by : Rito Jamison MD 03/16/2024 12:19:35
[2024-03-16 04:18] LABS: Hematocrit 23.7 % (37.0-47.0); Hemoglobin 7.9 g/dL (12.2-16.2)
[2024-03-16 04:31] LABS: Lactate Venous 1.8 mmol/L (0.4-2.0)
--- NOTE | 2024-03-16 05:45 | PC.NURSE ---
Pt alert to person. Pt has been very confused and restless and combative at times during shift. Pt has midline incision to abdomen, dsg in place CDI. Colostomy in place to right abdomen, minimal output during shift. 700cc output from NG tube during shift, dark green. Pt abdomen not tender but firm on right side. BM sounds hypoactive. Huynh in place draining clear yellow urine. Bed alarm on for pt safety.
--- NOTE | 2024-03-16 06:40 | PC.NURSE ---
Pt pulled out NG tube. Multiple nurses attempted to reinsert Ng tube and were unsuccessful. Pt very confused and combative at this time, refusing to follow directions to ease insertion. Hospitalist made aware. Stated to let patient have a break from it for now and to try again later today if needed.
[2024-03-16 06:48] LABS: Basophils % 0.2 % (0.1-2.0); Eosinophils # 0.1 K/mm3 (0.0-0.4); Eosinophils % 0.3 % (0.1-12.0); Lymphocytes % 5.7 % (10-50); Mean Corpuscular HGB Conc 33.3 g/dL (31.8-35.4); Mean Corpuscular Hemoglobin 25.1 pg (27.0-31.2); Mean Corpuscular Volume 75.2 fl (81-99); Mean Platelet Volume 8.8 fl (7.4-10.4); Monocytes # 0.5 K/mm3 (0.1-1.0); Monocytes % 2.9 % (1.7-9.3); Neutrophils # 16.3 K/mm3 (1.8-7.8); Neutrophils % 90.4 % (37.0-80.0); Platelet Count 275 K/mm3 (142-424); Red Blood Count 3.19 M/mm3 (4.20-5.40); Red Cell Distribution Width 16.7 % (11.5-17.5)
[2024-03-16 06:53] LABS: MANUAL DIFFERENTIAL MANUAL DIFFERENTIAL (MANUAL DIFF)
[2024-03-16 07:01] LABS: Alanine Aminotransferase 37 U/L (12-78); Albumin Level 2.7 g/dl (3.5-5.0); Alkaline Phosphatase 92 U/L (38-126); Anion Gap 12.2 mEq/L (5-15); Aspartate Amino Transferase 69 U/L (14-36); Bilirubin,Total 1.8 mg/dl (0.2-1.3); Blood Urea Nitrogen 27 mg/dl (7-17); Calcium 7.3 mg/dl (8.4-10.2); Carbon Dioxide 20 mmol/L (22.0-30.0); Chloride 115 mmol/L (98-107); Creatinine Clearance Estimated 42 mL/min (50-200); Estimated Glomerular Filt Rate 48 ml/min (>60); GFR (African American) 58 ML/MIN (>60); Globulin 2.7 g/dL (1.3-3.2); Glucose 133 mg/dl (74-100); Magnesium 2.7 mg/dl (1.6-2.3); Potassium 3.2 mmoL/L (3.5-5.1); Sodium 144 mmol/L (136-145); Total Protein,Serum 5.4 g/dl (6.3-8.2)
[2024-03-16 07:06] LABS: Hypochromasia 1+; Lymphocytes % 3 % (10-50); Monocytes % 1 % (2-9); Neutrophils % 96 % (42-76); Platelet Estimate Normal; Total Cells Counted 100
--- NOTE | 2024-03-16 07:44 | PC.NURSE ---
Staff attempted to ambulate pt. Pt was noncompliant. pt assisted x1 to stand at side of bed for bed sheets to be fixed underneath her. pt positioned in bed on her right side. bed alarm is on and call light is within reach. will try again later to ambulate today.
[2024-03-16 08:25] LABS: NT Pro Brain Natriuretic Pep. 3100 pg/mL (0-450)
[2024-03-16 08:33] LABS: Procalcitonin 7.24 ng/mL (0.0-2.0)
--- NOTE | 2024-03-16 09:00 | XR_ITS ---
PROCEDURE INFORMATION: Exam: XR Chest Exam date and time: 03/16/2024 9:52 AM Age: 78 years old Clinical indication: Other: Effusion TECHNIQUE: Imaging protocol: Radiologic exam of the chest. Views: 1 view. COMPARISON: CT ANGIO CHEST PE PROTOCOL 03/14/2024 12:05 PM FINDINGS: Lungs: Bibasilar airspace opacities bilaterally, likely combination of pleural effusions and atelectasis. Superimposed pneumonia cannot be excluded. Pleural spaces: No pneumothorax. Heart/Mediastinum: Unremarkable. No cardiomegaly. Bones/joints: Unremarkable. IMPRESSION: Bibasilar airspace opacities bilaterally, likely combination of pleural effusions and atelectasis. Superimposed pneumonia cannot be excluded.
[2024-03-16 09:16] LABS: Acetone, Serum (Rapid) None Detected (None Detect)
[2024-03-16] MEDS: SODIUM BICARBONATE 650MG TABLET 650 MG PO ×2 (09:55→20:01)
[2024-03-16] MEDS: METOPROLOL SUCCINATE XL 50MG TABLET 50 MG PO (09:55)
[2024-03-16] MEDS: VERAPAMIL SR 120MG TABLET 120 MG PO ×2 (09:56→20:01)
[2024-03-16] MEDS: HYDROCODONE/APAP 5/325 MG TABLET 1 TAB PO (09:56)
--- NOTE | 2024-03-16 10:06 | PC.NURSE ---
nurse notified of temperature. will recheck temperature.
[2024-03-16] MEDS: MEROPENEM 1 GM in 0.9 % SODIUM CHLORIDE 100 ML IV ×2 (10:42→21:53)
[2024-03-16 11:00] LABS: Microscopic, Urine URINE MICROSCOPIC (MICROSCOPIC)
[2024-03-16 11:05] LABS: Appearance,Urine CLEAR (Clear); Bilirubin,Urine Negative (Negative); Blood, Urine 2+ (Negative); Color,Urine YELLOW (Yellow); Glucose,Urine (UA) Negative (Negative); Ketones,Urine 1+ (Negative); Leukocyte Esterase,Urine Negative (Negative); Nitrate,Urine Negative (Negative); PH,Urine 6.5 (5.0-8.5); Protein,Urine TRACE (Negative); Specific Gravity, Urine 1.015 (1.005-1.030); Urobilinogen,Urine 0.2 EU/dl (0.2)
[2024-03-16 11:14] LABS: Hemoglobin A1C 5.4 % (4.0-6.0)
[2024-03-16 11:31] LABS: Bacteria,Urine Trace /lpf; RBC,Urine 20-50 #/hpf (0-3); Squamous Epithelial Cell,Urine Occasional #/hpf (0-5); WBC,Urine Occasional #/hpf (0-3)
[2024-03-16] MEDS: ACETAMINOPHEN 325MG TAB 650 MG PO ×2 (11:51→19:59)
[2024-03-16] MEDS: VANCOMYCIN CONSULT REQUEST 1 EACH NOTAPPLIC (11:52)
[2024-03-16] MEDS: FUROSEMIDE 40MG/4ML VIAL 40 MG IV (11:52)
[2024-03-16] MEDS: VANCOMYCIN HCL 1,000 MG in 0.9 % SODIUM CHLORIDE 250 ML 125 MG IV (11:52)
[2024-03-16 11:53] LABS: ABG Base Excess -3.6 mmol/L (-2.4-2.3); ABG HCO3 20.2 mmhg (22.0-26.0); ABG Oxygen Saturation 94 % (90-100); ABG PCO2 28.6 mmhg (35.0-45.0); ABG PH 7.47 mmol/L (7.35-7.45); ABG PO2 65.3 mmhg (80-100)
[2024-03-16 11:54] LABS: Allen's Test Patient Unable; Oxygen 2LPM NC %; Source Right Radial
--- NOTE | 2024-03-16 11:57 | EXP.PHA.CONS ---
Pharmacy Consult Date: 03/16/24 Time: 11:58 Referring provider: DR HERNANDEZ Reason for Consult:: VANCOMYCIN DOSING CONSULT Allergies Allergy/AdvReac Type Severity Reaction Status Date / Time No Known Allergies Allergy Verified 02/29/24 12:05 Home Medications ?Medication ?Instructions ?Recorded ?Confirmed ?Type aspirin 81 mg tablet,delayed 81 mg PO Q2D 12/31/19 03/13/24 History release (Adult Aspirin Regimen) digoxin 250 mcg (0.25 mg) tablet 125 mcg PO DAILY 12/31/19 03/13/24 History verapamil 120 mg tablet,extended 120 mg PO BID BP 12/31/19 03/13/24 History release simvastatin 40 mg tablet 40 mg PO HS 12/04/20 03/13/24 History metoprolol succinate 50 mg 50 mg PO DAILY 04/01/21 03/13/24 History tablet,extended release 24 hr rivaroxaban 15 mg tablet 15 mg PO QPMWITHMEAL 07/19/23 03/13/24 History albuterol sulfate 90 mcg/actuation 1 puff inhalation QIDP PRN 01/11/24 03/13/24 History aerosol inhaler Shortness Of Breath Or Wheezing pantoprazole 40 mg tablet,delayed 40 mg PO HS 01/11/24 03/13/24 History release estradiol 0.01% (0.1 mg/gram) 0.5 appful vaginal .3x weekly 01/18/24 03/13/24 Rx vaginal cream (Estrace) #42.5 grams losartan 50 mg tablet 50 mg PO DAILY 03/09/24 03/13/24 History levofloxacin 500 mg tablet 500 mg PO DAILY #5 tabs 03/10/24 03/13/24 Rx prednisone 10 mg tablet 10 mg PO DAILY #5 tabs 03/10/24 03/13/24 Rx New Prescriptions to Start Prescriptions: Height: 1.45 m Weight: 61.235 kg Laboratory Results:: Laboratory Results - last 24 hr 03/15/24 22:12: WBC 18.1 H, RBC 3.06 L, Hgb 7.8 L, Hct 22.9 L, MCV 74.8 L, MCH 25.5 L, MCHC 34.1, RDW 16.7, Plt Count 305, MPV 8.7, Neut % (Auto) 92.2 H, Lymph % (Auto) 4.5 L, [place] % (Auto) 2.2, Eos % (Auto) 0.2, Baso % (Auto) 0.4, Neut # (Auto) 16.6 H, Lymph # (Auto) 0.8, [place] # (Auto) 0.4, Eos # (Auto) 0.0, Baso # (Auto) 0.1, Total Counted 100, Neutrophils % (Manual) 92 H, Lymphocytes % (Manual) 7 L, Monocytes % (Manual) 1 L, Platelet Estimate Normal, Hypochromasia 1+, Anisocytosis 1+, Microcytosis 1+, Macrocytosis 1+ 03/16/24 04:10: Hgb 7.9 L, Hct 23.7 L, VBG Lactic Acid 1.8 03/16/24 06:40: WBC 18.0 H, RBC 3.19 L, Hgb 8.0 L, Hct 24.0 L, MCV 75.2 L, MCH 25.1 L, MCHC 33.3, RDW 16.7, Plt Count 275, MPV 8.8, Neut % (Auto) 90.4 H, Lymph % (Auto) 5.7 L, [place] % (Auto) 2.9, Eos % (Auto) 0.3, Baso % (Auto) 0.2, Neut # (Auto) 16.3 H, Lymph # (Auto) 1.0, [place] # (Auto) 0.5, Eos # (Auto) 0.1, Baso # (Auto) 0.0, Total Counted 100, Neutrophils % (Manual) 96 H, Lymphocytes % (Manual) 3 L, Monocytes % (Manual) 1 L, Platelet Estimate Normal, Hypochromasia 1+, Sodium 144, Potassium 3.2 L, Chloride 115 H, Carbon Dioxide 20 L, Anion Gap 12.2, BUN 27 H D, Creatinine 1.10 H D, Estimated Creat Clear 42, Estimated GFR 48 L, Est GFR ( Amer) 58 L D, Glucose 133 H, Calcium 7.3 L, Magnesium 2.7 H D, Total Bilirubin 1.8 H, AST 69 H D, ALT 37 D, Alkaline Phosphatase 92, Total Protein 5.4 L, Albumin 2.7 L D, Globulin 2.7, Albumin/Globulin Ratio 1.0 L 03/16/24 08:00: Hemoglobin A1c 5.4, NT-Pro-B Natriuret Pep 3100 H, Procalcitonin 7.24 H, Acetone Level None detected, Blood Type A Positive, Antibody Screen Negative, Crossmatch ([facility]) See Detail 03/16/24 10:45: Urine Color Yellow, Urine Appearance Clear, Urine pH 6.5, Ur Specific [place] 1.015, Urine Protein Trace, Urine Glucose (UA) Negative, Urine Ketones 1+, Urine Blood 2+ A, Urine Nitrate Negative, Urine Bilirubin Negative, Urine Urobilinogen 0.2, Ur Leukocyte Esterase Negative, Urine RBC 20-50, Urine WBC Occasional, Ur Squamous Epith Cells Occasional, Urine Bacteria Trace 03/16/24 11:31: Specimen Source Right radial, O2 % 2lpm nc, ABG pH 7.47 H, ABG pCO2 28.6 L, ABG pO2 65.3 L, ABG HCO3 20.2 L, ABG Total CO2 21.0 L, ABG O2 Saturation 94, ABG Base Excess -3.6 L, Hakeem Test Patient unable 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: 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 (Updated 03/14/24 @ 13:10 by MARVA Lassiter) Dyspnea on exertion Chronic cough Shortness of Breath Hypertension High cholesterol Afib Assessment and Plan Assessment and plan all Dx Assessment and Plan for all problems:: Pharmacokinetic dosing service Objective: Age: 78 yo Serum creatinine: 1.1 mg/dL Height: 57.1 Inches Weight (kg): 61.235 Diagnosis: PNEUMONIA Assessment: IBW (kg): 43.30 Dosing wt(kg): 61.235 Estimated Creatinine clearance (ml/min): 29.7 CRCL method: Cockcroft and Gault using ibw(default). Drug selected: Vancomycin Vd (liters): 42.9 (factor used: 0.7 L/kg) Pancho (hr-1): 0.029 Half life (hrs): 23.90 CLvanco=?? 1.244 L/hr Recommended dose: 1000 mg Interval: 36 hrs Infusion time (hrs): 2.0 Predicted peak (mcg/mL): 35.0 Predicted trough (mcg/mL): 13.06 Total body weight is being used for vancomycin dosing. Recommendations: Give Vancomycin 1000 mg q 36 hrs with an expected Cpeak of 35.0 mcg/ml and an expected Ctrough of 13.06 mcg/ml AUC 0-24 /EBONIE Data: EBONIE 0.5 mcg/mL:?? AUC/EBONIE:? 1071.8 EBONIE 1.0 mcg/mL:?? AUC/EBONIE:? 535.9 --------- EBONIE 1.5 mcg/mL:?? AUC/EBONIE:? 357.3 EBONIE 2.0 mcg/mL:?? AUC/EBONIE:? 268.0 Thank you for the consult
[2024-03-16 12:00] LABS: Coronavirus 19, PCR Not Detected (NotDetected); Influenza A, PCR Not Detected (NotDetected); Influenza B, PCR Not Detected (NotDetected)
--- NOTE | 2024-03-16 12:36 | P.PN_ITS ---
Subjective Narrative: Pt reports feeling well today, but endorses some abdominal pain. Her 3 daughters were present for patient interview and exam. She has made excellent urine output. Bolused overnight for tachycardia, and has received Lasix this morning for evidence of volume overload (b/l pleural effusions on CXR, BNP 3100). She was placed on a verapamil drip for sinus tachycardia in 120s and has also received metoprolol. Current HHR 110s. She has been restless, and self- discontinued NGT and an IV. She has had adventist of IV access. No output from colostomy other than a few ccs of bowel sweat. Tmax 100.8, Tcurrent 100.2. Ambulation attempted by nurses, but was deemed a fall risk d/t confusion and has not attempted since. Not on pressors, actually has been hypertensive. Before I arrived, her daughters (2 of whom are nurses) changed her code status to DNR. One of her daughters who is a nurse had seen her this morning and expressed to the nurse she had a feeling that her mother was going to code. Code was not called, as clinical indicators were stable, and this is when her daughters changed the code status to DNR. Exam Data for Last 24 hours Vital signs and Labs for Last 24 Hours: Temp Pulse Resp BP Pulse Ox O2 Del Method O2 Flow Rate 100.2 F H 94 H 23 127/65 91 L Room Air 1 03/16/24 11:01 03/16/24 12:00 03/16/24 12:00 03/16/24 12:00 03/16/24 12:00 03/16/24 06:43 03/16/24 04:55 FiO2 92 03/13/24 18:30 Laboratory Results - last 24 hr 03/15/24 22:12: WBC 18.1 H, RBC 3.06 L, Hgb 7.8 L, Hct 22.9 L, MCV 74.8 L, MCH 25.5 L, MCHC 34.1, RDW 16.7, Plt Count 305, MPV 8.7, Neut % (Auto) 92.2 H, Lymph % (Auto) 4.5 L, [place] % (Auto) 2.2, Eos % (Auto) 0.2, Baso % (Auto) 0.4, Neut # (Auto) 16.6 H, Lymph # (Auto) 0.8, [place] # (Auto) 0.4, Eos # (Auto) 0.0, Baso # (Auto) 0.1, Total Counted 100, Neutrophils % (Manual) 92 H, Lymphocytes % (Manual) 7 L, Monocytes % (Manual) 1 L, Platelet Estimate Normal, Hypochromasia 1+, Anisocytosis 1+, Microcytosis 1+, Macrocytosis 1+ 03/16/24 04:10: Hgb 7.9 L, Hct 23.7 L, VBG Lactic Acid 1.8 03/16/24 06:40: WBC 18.0 H, RBC 3.19 L, Hgb 8.0 L, Hct 24.0 L, MCV 75.2 L, MCH 25.1 L, MCHC 33.3, RDW 16.7, Plt Count 275, MPV 8.8, Neut % (Auto) 90.4 H, Lymph % (Auto) 5.7 L, [place] % (Auto) 2.9, Eos % (Auto) 0.3, Baso % (Auto) 0.2, Neut # (Auto) 16.3 H, Lymph # (Auto) 1.0, [place] # (Auto) 0.5, Eos # (Auto) 0.1, Baso # (Auto) 0.0, Total Counted 100, Neutrophils % (Manual) 96 H, Lymphocytes % (Manual) 3 L, Monocytes % (Manual) 1 L, Platelet Estimate Normal, Hypochromasia 1+, Sodium 144, Potassium 3.2 L, Chloride 115 H, Carbon Dioxide 20 L, Anion Gap 12.2, BUN 27 H D, Creatinine 1.10 H D, Estimated Creat Clear 42, Estimated GFR 48 L, Est GFR ( Amer) 58 L D, Glucose 133 H, Calcium 7.3 L, Magnesium 2.7 H D, Total Bilirubin 1.8 H, AST 69 H D, ALT 37 D, Alkaline Phosphatase 92, Total Protein 5.4 L, Albumin 2.7 L D, Globulin 2.7, Albumin/Globulin Ratio 1.0 L 03/16/24 08:00: Hemoglobin A1c 5.4, NT-Pro-B Natriuret Pep 3100 H, Procalcitonin 7.24 H, Acetone Level None detected, Blood Type A Positive, Antibody Screen Negative, Crossmatch ([facility]) See Detail 03/16/24 10:45: Urine Color Yellow, Urine Appearance Clear, Urine pH 6.5, Ur Specific [place] 1.015, Urine Protein Trace, Urine Glucose (UA) Negative, Urine Ketones 1+, Urine Blood 2+ A, Urine Nitrate Negative, Urine Bilirubin Negative, Urine Urobilinogen 0.2, Ur Leukocyte Esterase Negative, Urine RBC 20-50, Urine WBC Occasional, Ur Squamous Epith Cells Occasional, Urine Bacteria Trace 03/16/24 11:31: Specimen Source Right radial, O2 % 2lpm nc, ABG pH 7.47 H, ABG pCO2 28.6 L, ABG pO2 65.3 L, ABG HCO3 20.2 L, ABG Total CO2 21.0 L, ABG O2 Sat uration 94, ABG Base Excess -3.6 L, Hakeem Test Patient unable 03/16/24 11:35: SARS-CoV-2 (PCR) Not detected, Influenza A Untype (PCR) Not detected, Influenza Type B (PCR) Not detected I & O for Last 24 hours: Intake & Output 03/13/24 03/14/24 03/15/24 03/16/24 23:59 23:59 23:59 23:59 Intake Total 6204.5 / 6404.5 1656.875 / 2156.875 1641 / 1741 350 / 350 Output Total 700 / 760 2400 / 2950 2985 / 2985 3485 / 3485 Balance 5504.5 / 5644.5 -743.125 / -793.125 -1344 / -1244 -3135 / -3135 Weight 119 lb 132 lb 4.438 oz 135 lb 135 lb 0.001 oz Microbiology Reports for the Last 24 Hours: Microbiology 03/13/24 08:34 Blood Blood Culture - Preliminary 03/13/24 08:39 Blood Antimicrobic Susceptibility - Final Not Reportable 03/13/24 08:39 Blood - Final Not Reportable 03/13/24 08:39 Blood - Final Not Reportable 03/13/24 08:39 Blood - Final Not Reportable 03/13/24 08:39 Blood - Final Not Reportable 03/13/24 08:39 Blood - Final Not Reportable 03/13/24 08:39 Blood - Final Not Reportable 03/13/24 08:39 Blood - Final Not Reportable 03/13/24 08:39 Blood - Final Not Reportable 03/13/24 08:39 Blood - Final Not Reportable 03/13/24 08:39 Blood Blood Culture - Final Constitutional Constitutional: no acute distress and cooperative Comments: alert, pleasant. Oriented to self and place, when asked for the year she gave me her birthdate. *Routine Abdominal Exam Abdominal: Present soft and distended; Absent rebound, guarding or rigid Comments: Midline incision dressed. End colostomy is pink and patent. I digitalized the ostomy, and felt a likely diverticulum and then a true lumen. There was a lissy- like large stool mass. I was not able to bring it through the ostomy, but it was broken up as best as possible. Hyperactive and exuberant bowel sounds without tinkles or rushes. Progress Note: A&P Assessment and plan (1) Sepsis: Status: Acute (2) Rupture of colon: Status: Acute Assessment and plan: POD#2 s/p ex lap, washout, partial colectomy and end-colostomy. Continue meropenem and vancomycin, strongly consider adding antifungal due to her gross feculent contamination at the time of surgery. Her clinical situation is precarious, with need for volume resuscitation for sepsis and major surgery balanced with volume overload and cardiac concerns. Creatinine is decreasing today. She is pleasant upon exam, though obviously confused. Ok to leave NGT out for now, but if she vomits, develops nausea will need it replaced. May require restraints. She continues with sinus tachycardia. On beta blockade and CCB drip. Tachycardia may not be a reliable indicator of worsening sepsis. Her leukocytosis is stable, no bands, decreasing neutrophils. Renal function is improving. Base deficit is only 3. No worsening acidemia but she did get some oral sodium bicarb this morning, prior to ABG. Has low grade fever. Does not have peritonitis, although she is distended and has not had productive ostomy yet. Will try oral mineral oil, as it is a low risk effort. At this time, she does not have evidence of repeat colonic perforation. CXR shows atelectasis vs. pneumonia with effusions. At risk for abscess given fecal peritonitis. Would not return to surgery at this time, continue supportive care. Sharp decline in clinical status, pneumoperitoneum, obviously worsening labs would be indication for return to OR. We discussed the goals of care (DNR). If she declined sharply, they would be in favor of return to OR, though she is otherwise DNR. They want to continue supportive care, but are understanding that she is acutely critically ill in the back ground of baseline poor health and may not survive this episode. (3) Ischemic colitis: Status: Deleted (4) Stercoral colitis: Status: Acute (5) Anemia: Problem details: Not sure anemia is related to exclusively vaginal bleeding. She states this is improving. Agree with MUNICIPAL MAINTENANCE WORKER for no need for intervention at this point. I am unclear about why patient is on Xarelto. Cardiology notes record atrial fibrillation but I can see no actual A-fib either on a Holter report that I read last year or any EKG recently. Patient states she is on the blood thinner so I do not have a heart attack. This may need to be readdressed with primary family practice office. I do not think her shortness of air is from the anemia and this seems to be perhaps a more chronic problem. I think this would be best worked up as an outpatient, I do not see a need for active transfusion at this point given normal vital signs. Status: Acute (6) Atrial fibrillation: Status: Deleted (7) Hypertension: Status: Chronic (8) GERD (gastroesophageal reflux disease): Status: Deleted
[2024-03-16] MEDS: ONDANSETRON 4MG/2ML VIAL 4 MG IV (13:43)
[2024-03-16] MEDS: RIVAROXABAN 15MG TABLET 15 MG PO (17:03)
[2024-03-16 19:31] LABS: Basophils % 0.1 % (0.1-2.0); Eosinophils % 0.1 % (0.1-12.0); Hematocrit 23.8 % (37.0-47.0); Lymphocytes # 1.1 K/mm3 (0.7-4.5); Lymphocytes % 7.4 % (10-50); Mean Corpuscular HGB Conc 33.6 g/dL (31.8-35.4); Mean Corpuscular Hemoglobin 25.2 pg (27.0-31.2); Mean Corpuscular Volume 75.1 fl (81-99); Mean Platelet Volume 8.6 fl (7.4-10.4); Monocytes # 0.7 K/mm3 (0.1-1.0); Monocytes % 5.1 % (1.7-9.3); Neutrophils # 12.3 K/mm3 (1.8-7.8); Neutrophils % 86.5 % (37.0-80.0); Platelet Count 231 K/mm3 (142-424); Red Blood Count 3.17 M/mm3 (4.20-5.40); Red Cell Distribution Width 17.1 % (11.5-17.5); White Blood Count 14.2 K/mm3 (4.8-10.8)
[2024-03-16 19:31] LABS: Lactate Venous 1.6 mmol/L (0.4-2.0); VBG Base Excess -0.5 mmol/L (-2.4-2.3); VBG HCO3 21.5 mmol/L (23-30); VBG Oxygen Saturation 98.8 % (50-70); VBG PO2 97.7 mmol/L (28-40); VBG Total CO2 22.2 mmol/L (23-27)
[2024-03-16 19:36] LABS: MANUAL DIFFERENTIAL MANUAL DIFFERENTIAL (MANUAL DIFF)
[2024-03-16 19:39] LABS: VBG PCO2 23.6 mmol/L (35-51); VBG PH 7.58 mmol/L (7.31-7.41)
[2024-03-16] MEDS: SODIUM CHLORIDE 0.9% 10ML VIAL 8 ML IV (20:00)
[2024-03-16] MEDS: FAMOTIDINE 20MG/2ML VIAL 20 MG IV (20:00)
[2024-03-16] MEDS: QUETIAPINE 25MG TABLET 25 MG PO (20:06)
[2024-03-16 20:21] LABS: Hypochromasia 2+; Lymphocytes % 8 % (10-50); Monocytes % 4 % (2-9); Neutrophils % 88 % (42-76); Platelet Estimate Normal; Poikilocytosis 1+; Target Cells 1+; Total Cells Counted 100
[2024-03-16 22:53] LABS: ABG Base Excess -0.7 mmol/L (-2.4-2.3); ABG HCO3 21.3 mmhg (22.0-26.0); ABG Oxygen Saturation 95 % (90-100); ABG PO2 68.4 mmhg (80-100); ABG TCO2 22.1 mmhg (23-27)
[2024-03-16 22:54] LABS: ABG PH 7.57 mmol/L (7.35-7.45); Allen's Test Y; Oxygen 2 %; Source Left Radial
--- NOTE | 2024-03-16 23:04 | P.PN_ITS ---
Subjective *Date: 03/17/24 *Time: 13:53 Interval history: Pleasant but intermittently confused. Showing hospital-acquired delirium in the setting of ICU and sepsis. Will start Seroquel tonight. Exam Data for Last 24 hours Vital signs and Labs for Last 24 Hours: Temp Pulse Resp BP Pulse Ox O2 Del Method O2 Flow Rate 100 F H 98 H 22 161/68 H 90 L Nasal Cannula 2 03/16/24 20:00 03/16/24 22:00 03/16/24 22:00 03/16/24 22:00 03/16/24 22:00 03/16/24 22:00 03/16/24 22:00 FiO2 92 03/13/24 18:30 Laboratory Results - last 24 hr 03/15/24 22:12: Total Counted 100, Neutrophils % (Manual) 92 H, Lymphocytes % (Manual) 7 L, Monocytes % (Manual) 1 L, Platelet Estimate Normal, Hypochromasia 1+, Anisocytosis 1+, Microcytosis 1+, Macrocytosis 1+ 03/16/24 04:10: Hgb 7.9 L, Hct 23.7 L, VBG Lactic Acid 1.8 03/16/24 06:40: WBC 18.0 H, RBC 3.19 L, Hgb 8.0 L, Hct 24.0 L, MCV 75.2 L, MCH 25.1 L, MCHC 33.3, RDW 16.7, Plt Count 275, MPV 8.8, Neut % (Auto) 90.4 H, Lymph % (Auto) 5.7 L, [place] % (Auto) 2.9, Eos % (Auto) 0.3, Baso % (Auto) 0.2, Neut # (Auto) 16.3 H, Lymph # (Auto) 1.0, [place] # (Auto) 0.5, Eos # (Auto) 0.1, Baso # (Auto) 0.0, Total Counted 100, Neutrophils % (Manual) 96 H, Lymphocytes % (Manual) 3 L, Monocytes % (Manual) 1 L, Platelet Estimate Normal, Hypochromasia 1+, Sodium 144, Potassium 3.2 L, Chloride 115 H, Carbon Dioxide 20 L, Anion Gap 12.2, BUN 27 H D, Creatinine 1.10 H D, Estimated Creat Clear 42, Estimated GFR 48 L, Est GFR ( Amer) 58 L D, Glucose 133 H, Calcium 7.3 L, Magnesium 2.7 H D, Total Bilirubin 1.8 H, AST 69 H D, ALT 37 D, Alkaline Phosphatase 92, Total Protein 5.4 L, Albumin 2.7 L D, Globulin 2.7, Albumin/Globulin Ratio 1.0 L 03/16/24 08:00: Hemoglobin A1c 5.4, NT-Pro-B Natriuret Pep 3100 H, Procalcitonin 7.24 H, Acetone Level None detected, Blood Type A Positive, Antibody Screen Negative, Crossmatch (AHG) See Detail 03/16/24 10:45: Urine Color Yellow, Urine Appearance Clear, Urine pH 6.5, Ur Specific [place] 1.015, Urine Protein Trace, Urine Glucose (UA) Negative, Urine Ketones 1+, Urine Blood 2+ A, Urine Nitrate Negative, Urine Bilirubin Negative, Urine Urobilinogen 0.2, Ur Leukocyte Esterase Negative, Urine RBC 20-50, Urine WBC Occasional, Ur Squamous Epith Cells Occasional, Urine Bacteria Trace 03/16/24 11:31: Specimen Source Right radial, O2 % 2lpm nc, ABG pH 7.47 H, ABG pCO2 28.6 L, ABG pO2 65.3 L, ABG HCO3 20.2 L, ABG Total CO2 21.0 L, ABG O2 Saturation 94, ABG Base Excess -3.6 L, Hakeem Test Patient unable 03/16/24 11:35: SARS-CoV-2 (PCR) Not detected, Influenza A Untype (PCR) Not detected, Influenza Type B (PCR) Not detected 03/16/24 18:46: VBG pH 7.58 H, VBG pCO2 23.6 L, VBG pO2 97.7 H, VBG HCO3 21.5 L, VBG Total CO2 22.2 L, VBG O2 Saturation 98.8 H, VBG Base Excess -0.5, VBG Lactic Acid 1.6 03/16/24 19:20: WBC 14.2 H, RBC 3.17 L, Hgb 8.0 L, Hct 23.8 L, MCV 75.1 L, MCH 25.2 L, MCHC 33.6, RDW 17.1, Plt Count 231, MPV 8.6, Neut % (Auto) 86.5 H, Lymph % (Auto) 7.4 L, [place] % (Auto) 5.1, Eos % (Auto) 0.1, Baso % (Auto) 0.1, Neut # (Auto) 12.3 H, Lymph # (Auto) 1.1, [place] # (Auto) 0.7, Eos # (Auto) 0.0, Baso # (Auto) 0.0, Total Counted 100, Neutrophils % (Manual) 88 H, Lymphocytes % (Manu al) 8 L, Monocytes % (Manual) 4, Platelet Estimate Normal, Hypochromasia 2+, Poikilocytosis 1+, Target Cells 1+ 03/16/24 22:49: Specimen Source Left radial, O2 % 2, ABG pH 7.57 H*, ABG pCO2 24.0 L, ABG pO2 68.4 L, ABG HCO3 21.3 L, ABG Total CO2 22.1 L, ABG O2 Saturation 95, ABG Base Excess -0.7, Hakeem Test Y I & O for Last 24 hours: Intake & Output 03/13/24 03/14/24 03/15/24 03/16/24 23:59 23:59 23:59 23:59 Intake Total 6204.5 / 6404.5 1656.875 / 2156.875 1641 / 1741 2285 / 2285 Output Total 700 / 760 2400 / 2950 2985 / 2985 5360 / 5360 Balance 5504.5 / 5644.5 -743.125 / -793.125 -1344 / -1244 -3075 / -3075 Weight 53.977 kg 60 kg 61.235 kg 61.235 kg Microbiology Reports for the Last 24 Hours: Microbiology 03/13/24 08:34 Blood Blood Culture - Preliminary Constitutional Constitutional: no acute distress *Routine HEENT Exam Head: Present normocephalic Eye: Present EOMI and PERRL ENT: Present mucous membranes moist *Routine Neck Exam Neck: Present supple; Absent lymphadenopathy *Routine Respiratory Exam Respiratory: Present CTA bilaterally *Routine Cardiovascular Exam Cardiovascular: Present RRR *Routine Abdominal Exam Abdominal: Present soft and normoactive bowel sounds; Absent tenderness Comments: Ostomy viable *Routine Extremities Exam Extremities: Absent cyanosis, clubbing or edema *Routine Skin Exam Skin: Present warm; Absent rash *Routine Neurological Exam Neurological: Present alert and oriented X3 Assessment and Plan *Assessment and plan (1) Sepsis: Status: Acute Category: Medical Code(s): A41.9 - Sepsis, unspecified organism (2) Rupture of colon: Status: Acute Category: Medical Code(s): K63.1 - Perforation of intestine (nontraumatic) (3) Ischemic colitis: Status: Deleted Category: Medical Code(s): K55.9 - Vascular disorder of intestine, unspecified (4) Stercoral colitis: Status: Acute Category: Medical Code(s): K52.89 - Other specified noninfective gastroenteritis and colitis (5) Anemia: Problem Comment: Not sure anemia is related to exclusively vaginal bleeding. She states this is improving. Agree with DATABASE ENGINEER for no need for intervention at this point. I am unclear about why patient is on Xarelto. Cardiology notes record atrial fibrillation but I can see no actual A-fib either on a Holter report that I read last year or any EKG recently. Patient states she is on the blood thinner so I do not have a heart attack. This may need to be readdressed with primary family practice office. I do not think her shortness of air is from the anemia and this seems to be perhaps a more chronic problem. I think this would be best worked up as an outpatient, I do not see a need for active transfusion at this point given normal vital signs. Status: Acute Qualifiers: Anemia type: other cause Other causes of anemia: acute posthemorrhagic Qualified Code(s): D62 - Acute posthemorrhagic anemia Category: Medical Code(s): D64.9 - Anemia, unspecified (6) Atrial fibrillation: Status: Deleted Qualifiers: Atrial fibrillation type: paroxysmal Qualified Code(s): I48.0 - Paroxysmal atrial fibrillation Category: Medical Code(s): I48.91 - Unspecified atrial fibrillation (7) Hypertension: Status: Chronic Qualifiers: Hypertension type: essential hypertension Qualified Code(s): I10 - Essential (primary) hypertension Category: Medical Code(s): I10 - Essential (primary) hypertension (8) GERD (gastroesophageal reflux disease): Status: Deleted Category: Medical Code(s): K21.9 - Gastro-esophageal reflux disease without esophagitis Plan Alesha Szymanski is a 78-year-old female with a medical history significant for A-fib on Xarelto, aortic valve insufficiency, hypertension, GERD who presented with evaluation of abdominal pain. CT abdomen/pelvis revealed sigmoid colon perforation and patient was emergently taken to the OR by Dr. Hurtado s/p partial sigmoid colectomy and end colostomy. During ex lap, patient was noted to have severe colon impaction with surrounding stercoral and ischemic colitis. Patient was recently started on iron supplementation which probably exacerbated underly ing constipation. Upon my evaluation, patient was comfortably laying in bed coming out of sedation. She noted some abdominal pain, but improved since presentation. #Sigmoid colon perforation #Septic shock #Ischemic colitis #Stercoral colitis, severe fecal impaction ? General Surgery consulted, s/p ex lap 03/13/2024 with partial sigmoid colectomy and end colostomy, and fecal disimpaction. ? Discussed case with Dr. Hurtado extensively, will treat ischemic/stercoral colitis with IV antibiotics, hydration for now. May need surgical revision if signs of ischemic colitis re-present or abscess formation. ? WBC improved from 18-14.2. Tachycardia has resolved. Currently on 2 L nasal cannula with appropriate saturations. - Continue meropenem. ? Weaned off Levophed. Cautious on vasopressors in the setting of ischemic colitis. Avoid phenylephrine. Can consider low-dose vasopressin if needed as secondary. Holding off on IV fluids for now as there signs of mild fluid ove rload. Required IV Lasix 40 mg today for tachypnea, apneic events in the setting of bilateral Pleural effusions. ? Continue clear liquid diet. - General Surgery following, recommended starting IV Diflucan for stool associated peritonitis and oral mineral oil. Manual ostomy disimpaction trials have been unsuccessful thus far, and per surgery are high risk for perforation. ? Continue to trend lactate in the setting of ischemic colitis. Lactate improving from 9-1.7. #Acute hypoxic respiratory failure #Suspected hospital-acquired pneumonia #Bilateral moderate pleural effusions ? CT reveals bibasilar opacities in the setting of septic shock. ? Continue vancomycin, meropnem, doxycycline. ? BC showing light growth, sent to reference lab. Follow-up repeat blood cultur es. ? Weaned from 6 L to 2 L nasal cannula ? Pulmonology consulted, pending further recommendations. #Elevated troponin #Elevated BNP ? Patient intially looked volume overloaded with sepsis bolus and IV fluids during procedure. [place] more euvolemic now. ? BNP increased to 4240. Troponin bumped from 0.05-2.85. EKG without acute ischemic changes. ? ECHO reveals LVEF 70%, hyperdynamic LV function, hypokinetic LV apex. ? Cardiology consulted, agreed this is likely from demand ischemia from sepsis. ? SOB improved with Lasix 40mg again today. #Hospital-acquired delirium ? Seroquel 25 mg nightly. Titrate based on response #Acute on chronic microcytic anemia ? Initial hemoglobin 7.7 improved to 10.0 on repeat CBC this afternoon. MCV 79.4. - Dropped to 8.3 today, follow-up repeat CBC. ? Iron studies reveal significant iron deficiency. ? Plan to give IV Venofer as septic shock improves. ? No signs of nicole bleeding. Likely secondary to ischemic colitis as above. #Paroxysmal A-fib #Hypertension ? Currently in sinus tachycardia. ? Resumed everette Tillman if Hgb drops. ? Continue home metoprolol succinate 50 mg, digoxin 125 mcg - Resumed verapamil 120mg BID. #GERD ? Resume home PPI. #Hyperlipidemia ? Resume home statin. Full code Toddrelto
[2024-03-17] VITALS (28 sets, daily range): BP systolic 121–168; BP diastolic 52–95; PULSE 75–107; RESP 15–38; TEMP 36.7–38.5; O2SAT 90–98; BMI 24.1
[2024-03-17 00:21] LABS: POC Glucose,Bedside 150 (70-110)
[2024-03-17] MEDS: ACETAMINOPHEN 1,000MG/100ML VIAL 1000 MG IV (00:34)
--- NOTE | 2024-03-17 00:42 | PC.NURSE ---
@ approx 2230 pts daughter expressed concern about pts mental status. Spoke with Torsten PÉREZ. Received verbal order for ABG and came to bedside to assess pt. Will RT called to bedside for ABG. Torsten PÉREZ aware of pts results. No new orders. Pts rectal temp around 0000 was 101.3 and pt had stated I'm hurting . Attempted to give pt PRN [place], but pt was unable to take it and wouldn't keep her eyes open. Torsten PÉREZ notified and orders recieved for Ofirmev 1000mg IV and carried out.
[2024-03-17] MEDS: DOXYCYCLINE HYCLATE 100 MG in 0.9 % SODIUM CHLORIDE 250 ML 166.667 MG IV ×2 (01:59→14:56)
--- NOTE | 2024-03-17 02:38 | PC.NURSE ---
She is alert to person with confusion. Her speech is mumbled and is difficult to understand. She has been turning herself in bed but staff assist for complete turns. She is voiding per adam catheter; her urine is dark yellow. Midline DSG is C/D/I. Colostomy is in place and stoma is reddish/pink in color. She continues with O2 @ 2LPM n/c. DNR is signed and on chart.
[2024-03-17 04:25] LABS: Basophils % 0.1 % (0.1-2.0); Eosinophils % 0.1 % (0.1-12.0); Hematocrit 22.6 % (37.0-47.0); Hemoglobin 7.6 g/dL (12.2-16.2); Lymphocytes # 1.3 K/mm3 (0.7-4.5); Lymphocytes % 13.6 % (10-50); Mean Corpuscular HGB Conc 33.6 g/dL (31.8-35.4); Mean Corpuscular Hemoglobin 25.5 pg (27.0-31.2); Mean Corpuscular Volume 75.8 fl (81-99); Mean Platelet Volume 8.8 fl (7.4-10.4); Monocytes # 0.6 K/mm3 (0.1-1.0); Monocytes % 6.6 % (1.7-9.3); Neutrophils # 7.5 K/mm3 (1.8-7.8); Neutrophils % 78.7 % (37.0-80.0); Platelet Count 231 K/mm3 (142-424); Red Blood Count 2.98 M/mm3 (4.20-5.40); Red Cell Distribution Width 17.5 % (11.5-17.5); White Blood Count 9.5 K/mm3 (4.8-10.8)
[2024-03-17 04:28] LABS: Albumin Level 2.6 g/dl (3.5-5.0); Chloride 118 mmol/L (98-107)
[2024-03-17 04:31] LABS: Alanine Aminotransferase 41 U/L (12-78); Albumin/Globulin Ratio 0.9 (1.1-1.8); Anion Gap 9.8 mEq/L (5-15); Aspartate Amino Transferase 78 U/L (14-36); Blood Urea Nitrogen 21 mg/dl (7-17); Carbon Dioxide 26 mmol/L (22.0-30.0); Creatinine Clearance Estimated 46 mL/min (50-200); Estimated Glomerular Filt Rate 61 ml/min (>60); GFR (African American) 74 ML/MIN (>60); Globulin 2.8 g/dL (1.3-3.2); Total Protein,Serum 5.4 g/dl (6.3-8.2)
[2024-03-17 04:32] LABS: Alkaline Phosphatase 84 U/L (38-126); Bilirubin,Total 1.6 mg/dl (0.2-1.3); Calcium 7.3 mg/dl (8.4-10.2); Glucose 124 mg/dl (74-100); Magnesium 2.3 mg/dl (1.6-2.3)
[2024-03-17 04:35] LABS: Potassium 2.8 mmoL/L (3.5-5.1); Sodium 151 mmol/L (136-145)
[2024-03-17] MEDS: KCl 20mEq/100ml 100 ML 50 MEQ IV ×3 (04:45→08:58)
[2024-03-17] MEDS: DEXTROSE 5 % IN WATER 1,000 ML 50 ML IV (04:59)
--- NOTE | 2024-03-17 05:28 | P.PN_ITS ---
Subjective Narrative: Tmax overnight 101+. Received Tylenol, currently afebrile. Nurses report she has been restless overnight. Patient reports some pain, but cannot tell me if it is worsening or improving. Appears comfortable. Had a large bowel movement per rectum. Exam Data for Last 24 hours Vital signs and Labs for Last 24 Hours: Temp Pulse Resp BP Pulse Ox O2 Del Method O2 Flow Rate 99.3 F 92 H 17 144/75 H 94 L Nasal Cannula 2 03/17/24 04:00 03/17/24 04:00 03/17/24 04:00 03/17/24 04:00 03/17/24 04:00 03/17/24 05:00 03/17/24 05:00 FiO2 92 03/13/24 18:30 Laboratory Results - last 24 hr 03/16/24 06:40: WBC 18.0 H, RBC 3.19 L, Hgb 8.0 L, Hct 24.0 L, MCV 75.2 L, MCH 25.1 L, MCHC 33.3, RDW 16.7, Plt Count 275, MPV 8.8, Neut % (Auto) 90.4 H, Lymph % (Auto) 5.7 L, [place] % (Auto) 2.9, Eos % (Auto) 0.3, Baso % (Auto) 0.2, Neut # (Auto) 16.3 H, Lymph # (Auto) 1.0, [place] # (Auto) 0.5, Eos # (Auto) 0.1, Baso # (Auto) 0.0, Total Counted 100, Neutrophils % (Manual) 96 H, Lymphocytes % (Manual) 3 L, Monocytes % (Manual) 1 L, Platelet Estimate Normal, Hypochromasia 1+, Sodium 144, Potassium 3.2 L, Chloride 115 H, Carbon Dioxide 20 L, Anion Gap 12.2, BUN 27 H D, Creatinine 1.10 H D, Estimated Creat Clear 42, Estimated GFR 48 L, Est GFR ( Amer) 58 L D, Glucose 133 H, Calcium 7.3 L, Magnesium 2.7 H D, Total Bilirubin 1.8 H, AST 69 H D, ALT 37 D, Alkaline Phosphatase 92, Total Protein 5.4 L, Albumin 2.7 L D, Globulin 2.7, Albumin/Globulin Ratio 1.0 L 03/16/24 08:00: Hemoglobin A1c 5.4, NT-Pro-B Natriuret Pep 3100 H, Procalcitonin 7.24 H, Acetone Level None detected, Blood Type A Positive, Antibody Screen Negative, Crossmatch (AHG) See Detail 03/16/24 10:45: Urine Color Yellow, Urine Appearance Clear, Urine pH 6.5, Ur Specific [place] 1.015, Urine Protein Trace, Urine Glucose (UA) Negative, Urine Ketones 1+, Urine Blood 2+ A, Urine Nitrate Negative, Urine Bilirubin Negative, Urine Urobilinogen 0.2, Ur Leukocyte Esterase Negative, Urine RBC 20-50, Urine WBC Occasional, Ur Squamous Epith Cells Occasional, Urine Bacteria Trace 03/16/24 11:31: Specimen Source Right radial, O2 % 2lpm nc, ABG pH 7.47 H, ABG pCO2 28.6 L, ABG pO2 65.3 L, ABG HCO3 20.2 L, ABG Total CO2 21.0 L, ABG O2 Saturation 94, ABG Base Excess -3.6 L, Hakeem Test Patient unable 03/16/24 11:35: SARS-CoV-2 (PCR) Not detected, Influenza A Untype (PCR) Not detected, Influenza Type B (PCR) Not detected 03/16/24 18:46: VBG pH 7.58 H, VBG pCO2 23.6 L, VBG pO2 97.7 H, VBG HCO3 21.5 L, VBG Total CO2 22.2 L, VBG O2 Saturation 98.8 H, VBG Base Excess -0.5, VBG Lactic Acid 1.6 03/16/24 19:20: WBC 14.2 H, RBC 3.17 L, Hgb 8.0 L, Hct 23.8 L, MCV 75.1 L, MCH 25.2 L, MCHC 33.6, RDW 17.1, Plt Count 231, MPV 8.6, Neut % (Auto) 86.5 H, Lymph % (Auto) 7.4 L, [place] % (Auto) 5.1, Eos % (Auto) 0.1, Baso % (Auto) 0.1, Neut # (Auto) 12.3 H, Lymph # (Auto) 1.1, [place] # (Auto) 0.7, Eos # (Auto) 0.0, Baso # (Auto) 0.0, Total Counted 100, Neutrophils % (Manual) 88 H, Lymphocytes % (Manual) 8 L, Monocytes % (Manual) 4, Platelet Estimate Normal, Hypochromasia 2+, Poikilocytosis 1+, Target Cells 1+ 03/16/24 22:49: Specimen Source Left radial, O2 % 2, ABG pH 7.57 H*, ABG pCO2 24.0 L, ABG pO2 68.4 L, ABG HCO3 21.3 L, ABG Total CO2 22.1 L, ABG O2 Saturation 95, ABG Base Excess -0.7, Hakeem Test Y 03/16/24 23:36: POC Glucose 150 H 03/17/24 04:20: WBC 9.5 D, RBC 2.98 L, Hgb 7.6 L, Hct 22.6 L, MCV 75.8 L, MCH 25.5 L, MCHC 33.6, RDW 17.5, Plt Count 231, MPV 8.8, Neut % (Auto) 78.7, Lymph % (Auto) 13.6, [place] % (Auto) 6.6, Eos % (Auto) 0.1, Baso % (Auto) 0.1, Neut # (Auto) 7.5, Lymph # (Auto) 1.3, [place] # (Auto) 0.6, Eos # (Auto) 0.0, Baso # (Auto) 0.0, Sodium 151 H*, Potassium 2.8 L*, Chloride 118 H, Carbon Dioxide 26, Anion Gap 9.8, BUN 21 H, Creatinine 0.90, Estimated Creat Clear 46, Estimated GFR 61, Est GFR ( Amer) 74 D, Glucose 124 H, Calcium 7.3 L, Magnesium 2.3 D, Total Bilirubin 1.6 H, AST 78 H, ALT 41, Alkaline Phosphatase 84, Total Protein 5.4 L, Albumin 2.6 L, Globulin 2.8, Albumin/Globulin Ratio 0.9 L I & O for Last 24 hours: Intake & Output 03/14/24 03/15/24 03/16/24 03/17/24 23:59 23:59 23:59 23:59 Intake Total 1656.875 / 2156.875 1641 / 1741 2285 / 2285 349 / 349 Output Total 2400 / 2950 2985 / 2985 5485 / 5585 2165 / 2165 Balance -743.125 / -793.125 -1344 / -1244 -3200 / -3300 -1816 / -1816 Weight 132 lb 4.438 oz 135 lb 135 lb 0.001 oz 111 lb 12.8 oz Microbiology Reports for the Last 24 Hours: Microbiology 03/13/24 08:34 Blood Blood Culture - Preliminary Constitutional Constitutional: no acute distress and cooperative *Routine Abdominal Exam Comments: Normoactive bowl sounds. Softer and less distended than yesterday. Midline dressing not removed d/t being partially covered by ostomy appliance. No surrounding erythema noted. Large amount of gas in ostomy bag with no solid stool noted. *Routine Neurological Exam Neurological: Present alert Comments: garbled speech, oriented to self. Pleasant and cooperative. Smiling. Progress Note: A&P Assessment and plan (1) Sepsis: Status: Acute (2) Rupture of colon: Status: Acute Assessment and plan: POD#4 s/p ex lap, partial colectomy, end colostomy, washout for perforated stercoral ulcer and gross fecal contamination. Some parameters improving today: leukocytosis is resolved. Hypernatremia and hypokalemia noted. Treatment per hospitalist service. HR has normalized and is not on CCB drip anymore. She is beta blocked. No hypotension. UOP is excellent with diuresis. She was febrile to 101.3 overnight, currently afebrile 99.3 after Tylenol. Ddx for fever includes intraabdominal abscess, pneumonia. Continue meropenem, vancomycin. Will add fungal coverage. Consider CT tomorrow, POD#5 to look for organized/drainable abscess. Clinically, does not have peritonitis or worsening labs, not currently concerned for repeat colonic perforation or ischemic bowel but will remain vigilant. Has started to pass gas from colostomy, which seems to have improved her distension. Anemia stable. (3) Ischemic colitis: Status: Deleted (4) Stercoral colitis: Status: Acute (5) Anemia: Problem details: Not sure anemia is related to exclusively vaginal bleeding. She states this is improving. Agree with ACCOUNT LEADER for no need for intervention at this point. I am unclear about why patient is on Xarelto. Cardiology notes record atrial fibrillation but I can see no actual A-fib either on a Holter report that I read last year or any EKG recently. Patient states she is on the blood thinner so I do not have a heart attack. This may need to be readdressed with primary family practice office. I do not think her shortness of air is from the anemia and this seems to be perhaps a more chronic problem. I think this would be best worked up as an outpatient, I do not see a need for active transfusion at this point given normal vital signs. Status: Acute (6) Atrial fibrillation: Status: Deleted (7) Hypertension: Status: Chronic (8) GERD (gastroesophageal reflux disease): Status: Deleted
--- NOTE | 2024-03-17 05:56 | PC.NURSE ---
Pharmacy contacted about Fluconazole 400mg in 200mL not available in omni; 200mg in 100mL is available.
[2024-03-17] MEDS: FLUCONAZOLE IN NACL,ISO-OSM 200 MG/100 ML PIGGYBACK IV ×2 (06:09→06:39)
[2024-03-17] MEDS: MINERAL OIL 30 ML UDC PO (06:09)
--- NOTE | 2024-03-17 08:44 | P.PN_ITS ---
Subjective *Date: 03/17/24 *Time: 08:44 Medical Exam Vital signs and Labs for Last 24 Hours: Vital Signs Temp Pulse Pulse Resp BP Pulse Ox O2 Del Method 03/17/24 08:00 85 21 95 03/17/24 08:00 168/78 H 03/17/24 08:00 98.7 F 03/17/24 07:41 Nasal Cannula 03/17/24 07:00 89 15 96 03/17/24 06:19 Nasal Cannula 03/17/24 06:00 85 18 163/77 H 95 03/17/24 05:00 96 H 16 90 L 03/17/24 05:00 Nasal Cannula 03/17/24 04:00 144/75 H 03/17/24 04:00 99.3 F 92 H 17 144/75 H 94 L Nasal Cannula 03/17/24 04:00 95 H 03/17/24 03:00 89 17 95 03/17/24 02:45 94 L Room Air 03/17/24 02:34 Nasal Cannula 03/17/24 02:01 141/72 H 03/17/24 02:01 97 H 23 141/72 H 91 L Nasal Cannula 03/17/24 02:00 87 38 H 94 L 03/17/24 01:00 103 H 22 93 L 03/17/24 01:00 Nasal Cannula 03/17/24 00:01 121/52 L 03/17/24 00:01 19 03/17/24 00:00 98 H 03/17/24 00:00 101.3 F H 107 H 28 H 121/52 L 94 L Nasal Cannula 03/16/24 23:00 103 H 20 93 L 03/16/24 23:00 Nasal Cannula 03/16/24 22:00 98 H 22 161/68 H 90 L Nasal Cannula 03/16/24 21:00 82 22 95 03/16/24 21:00 Nasal Cannula 03/16/24 20:00 88 03/16/24 20:00 Nasal Cannula 03/16/24 20:00 100 F H 83 19 152/84 H 94 L Nasal Cannula 03/16/24 19:32 Nasal Cannula 03/16/24 19:00 88 20 94 L 03/16/24 18:00 99.8 F H 91 H 18 155/79 H 94 L 03/16/24 17:59 Nasal Cannula 03/16/24 17:00 91 H 22 93 L 03/16/24 16:30 93 H 95 Nasal Cannula 03/16/24 16:01 64 22 91 L 03/16/24 16:01 153/77 H 03/16/24 16:00 90 03/16/24 15:40 Nasal Cannula 03/16/24 15:00 85 20 91 L 03/16/24 14:27 99.9 F H 03/16/24 14:01 129/65 03/16/24 14:01 90 27 H 94 L 03/16/24 13:00 89 17 93 L 03/16/24 13:00 Nasal Cannula 03/16/24 12:29 100.1 F H 03/16/24 12:00 90 03/16/24 12:00 127/65 03/16/24 12:00 94 H 23 91 L 03/16/24 11:28 125/64 03/16/24 11:28 95 H 22 92 L 03/16/24 11:01 100.2 F H 03/16/24 11:00 Nasal Cannula 03/16/24 10:34 158/81 H 03/16/24 10:34 111 H 18 92 L 03/16/24 10:00 153/92 H 03/16/24 10:00 78 27 H 95 03/16/24 09:00 Nasal Cannula O2 Flow Rate 03/17/24 08:00 03/17/24 08:00 03/17/24 08:00 03/17/24 07:41 2 03/17/24 07:00 03/17/24 06:19 2 03/17/24 06:00 03/17/24 05:00 03/17/24 05:00 2 03/17/24 04:00 03/17/24 04:00 2 03/17/24 04:00 03/17/24 03:00 03/17/24 02:45 03/17/24 02:34 2 03/17/24 02:01 03/17/24 02:01 2 03/17/24 02:00 03/17/24 01:00 03/17/24 01:00 03/17/24 00:01 03/17/24 00:01 03/17/24 00:00 03/17/24 00:00 2 03/16/24 23:00 03/16/24 23:00 2 03/16/24 22:00 2 03/16/24 21:00 03/16/24 21:00 2 03/16/24 20:00 03/16/24 20:00 2 03/16/24 20:00 2 03/16/24 19:32 03/16/24 19:00 03/16/24 18:00 03/16/24 17:59 2 03/16/24 17:00 03/16/24 16:30 2 03/16/24 16:01 03/16/24 16:01 03/16/24 16:00 03/16/24 15:40 2 03/16/24 15:00 03/16/24 14:27 03/16/24 14:01 03/16/24 14:01 03/16/24 13:00 03/16/24 13:00 2 03/16/24 12:29 03/16/24 12:00 03/16/24 12:00 03/16/24 12:00 03/16/24 11:28 03/16/24 11:28 03/16/24 11:01 03/16/24 11:00 2 03/16/24 10:34 03/16/24 10:34 03/16/24 10:00 03/16/24 10:00 03/16/24 09:00 2 Intake and Output 03/16/24 03/17/24 03/17/24 23:59 07:59 15:59 Intake Total 660 / 2285 349 / 409 60 / 409 Output Total 1150 / 5585 2640 / 2990 350 / 2990 Balance -490 / -3300 -2291 / -2581 -290 / -2581 Intake: Intake, Oral Amount 60 / 1235 60 / 60 Intake, Total IV Amount 600 / 1050 349 / 349 Doxycycline Hyclate 100 mg In 0 250 / 500 249 / 249 .9 % Sodium Chloride 250 ml @ 166.667 mls/hr IV Q12H [facility] Rx#: [id number] Meropenem 1 gm In 0.9 % Sodium 100 / 300 100 / 100 Chloride 100 ml @ 100 mls/hr IV Q12H [facility] Rx#:[id number] Vancomycin HCl 1,000 mg In 0.9 250 / 250 % Sodium Chloride 250 ml @ 125 mls/hr IV Q36H [facility] Rx#:[id number] Output: Output, Urine Amount 425 / 4060 1300 / 1650 350 / 1650 Output, Urine Amount (Catheter) 725 / 825 1340 / 1340 Huynh 725 / 825 1340 / 1340 Other: Number of Unmeasured Voids 0 0 0 Weight 50.712 kg Patient Weight 03/17/24 23:59 Weight 50.712 kg Laboratory Results - last 24 hr 03/16/24 08:00: Hemoglobin A1c 5.4, Acetone Level None detected, Blood Type A Positive, Antibody Screen Negative, Crossmatch (AHG) See Detail 03/16/24 10:45: Urine Color Yellow, Urine Appearance Clear, Urine pH 6.5, Ur Specific [place] 1.015, Urine Protein Trace, Urine Glucose (UA) Negative, Urine Ketones 1+, Urine Blood 2+ A, Urine Nitrate Negative, Urine Bilirubin Negative, Urine Urobilinogen 0.2, Ur Leukocyte Esterase Negative, Urine RBC 20-50, Urine WBC Occasional, Ur Squamous Epith Cells Occasional, Urine Bacteria Trace 03/16/24 11:31: Specimen Source Right radial, O2 % 2lpm nc, ABG pH 7.47 H, ABG pCO2 28.6 L, ABG pO2 65.3 L, ABG HCO3 20.2 L, ABG Total CO2 21.0 L, ABG O2 Saturation 94, ABG Base Excess -3.6 L, Hakeem Test Patient unable 03/16/24 11:35: SARS-CoV-2 (PCR) Not detected, Influenza A Untype (PCR) Not detected, Influenza Type B (PCR) Not detected 03/16/24 18:46: VBG pH 7.58 H, VBG pCO2 23.6 L, VBG pO2 97.7 H, VBG HCO3 21.5 L, VBG Total CO2 22.2 L, VBG O2 Saturation 98.8 H, VBG Base Excess -0.5, VBG Lactic Acid 1.6 03/16/24 19:20: WBC 14.2 H, RBC 3.17 L, Hgb 8.0 L, Hct 23.8 L, MCV 75.1 L, MCH 25.2 L, MCHC 33.6, RDW 17.1, Plt Count 231, MPV 8.6, Neut % (Auto) 86.5 H, Lymph % (Auto) 7.4 L, [place] % (Auto) 5.1, Eos % (Auto) 0.1, Baso % (Auto) 0.1, Neut # (Auto) 12.3 H, Lymph # (Auto) 1.1, [place] # (Auto) 0.7, Eos # (Auto) 0.0, Baso # (Auto) 0.0, Total Counted 100, Neutrophils % (Manual) 88 H, Lymphocytes % (Manual) 8 L, Monocytes % (Manual) 4, Platelet Estimate Normal, Hypochromasia 2+, Poikilocytosis 1+, Target Cells 1+ 03/16/24 22:49: Specimen Source Left radial, O2 % 2, ABG pH 7.57 H*, ABG pCO2 24.0 L, ABG pO2 68.4 L, ABG HCO3 21.3 L, ABG Total CO2 22.1 L, ABG O2 Saturation 95, ABG Base Excess -0.7, Hakeem Test Y 03/16/24 23:36: POC Glucose 150 H 03/17/24 04:20: WBC 9.5 D, RBC 2.98 L, Hgb 7.6 L, Hct 22.6 L, MCV 75.8 L, MCH 25.5 L, MCHC 33.6, RDW 17.5, Plt Count 231, MPV 8.8, Neut % (Auto) 78.7, Lymph % (Auto) 13.6, [place] % (Auto) 6.6, Eos % (Auto) 0.1, Baso % (Auto) 0.1, Neut # (Auto) 7.5, Lymph # (Auto) 1.3, [place] # (Auto) 0.6, Eos # (Auto) 0.0, Baso # (Auto) 0.0, Sodium 151 H*, Potassium 2.8 L*, Chloride 118 H, Carbon Dioxide 26, Anion Gap 9.8, BUN 21 H, Creatinine 0.90, Estimated Creat Clear 46, Estimated GFR 61, Est GFR ( Amer) 74 D, Glucose 124 H, Calcium 7.3 L, Magnesium 2.3 D, Total Bilirubin 1.6 H, AST 78 H, ALT 41, Alkaline Phosphatase 84, Total Protein 5.4 L, Albumin 2.6 L, Globulin 2.8, Albumin/Globulin Ratio 0.9 L I & O for Labs for Last 24 Hours: Intake & Output 03/14/24 03/15/24 03/16/24 03/17/24 23:59 23:59 23:59 23:59 Intake Total 1656.875 / 2156.875 1641 / 1741 2285 / 2285 409 / 409 Output Total 2400 / 2950 2985 / 2985 5485 / 5585 2990 / 2990 Balance -743.125 / -793.125 -1344 / -1244 -3200 / -3300 -2581 / -2581 Weight 60 kg 61.235 kg 61.235 kg 50.712 kg Microbiology Reports for the Last 24 Hours: Microbiology 03/16/24 06:40 Blood Blood Culture - Preliminary NO GROWTH AFTER 24 HOURS 03/16/24 06:40 Blood Blood Culture - Preliminary NO GROWTH AFTER 24 HOURS 03/13/24 08:34 Blood Blood Culture - Preliminary The patient's infection will respond to the chosen ABx?: Yes (BLOOD CX PENDING, SPUTUM UNCOLLECTED, )
[2024-03-17 08:49] LABS: Phosphorous 1.8 mg/dl (2.5-4.5)
[2024-03-17] MEDS: DIGOXIN 0.125MG TABLET 62.5 MCG PO (08:55)
[2024-03-17] MEDS: METOPROLOL SUCCINATE XL 50MG TABLET 50 MG PO (08:57)
[2024-03-17] MEDS: ASPIRIN EC 81MG TABLET 81 MG PO (08:57)
[2024-03-17] MEDS: VERAPAMIL SR 120MG TABLET 120 MG PO ×2 (08:57→21:23)
--- NOTE | 2024-03-17 09:07 | CT_ITS ---
PROCEDURE INFORMATION: Exam: CT Abdomen And Pelvis With Contrast Exam date and time: 03/17/2024 11:20 AM Age: 78 years old Clinical indication: Abdominal pain TECHNIQUE: Imaging protocol: Computed tomography of the abdomen and pelvis with contrast. Radiation optimization: All CT scans at this facility use at least one of these dose optimization techniques: automated exposure control; mA and/or kV adjustment per patient size (includes targeted exams where dose is matched to clinical indication); or iterative reconstruction. Contrast material: ISOVUE; Contrast volume: 75 ml; Contrast route: IV; COMPARISON: CT ABDOMEN PELVIS W CON 03/13/2024 9:00 AM FINDINGS: Tubes, catheters and devices: Pessary in place. Lungs: Bibasilar atelectasis. Pleural spaces: Small to moderate pleural effusions bilaterally. Liver: Normal. No mass. Gallbladder and biliary ducts: Normal. No calcified stones. No ductal dilation. Pancreas: Normal. No ductal dilation. Spleen: Normal. No splenomegaly. Adrenal glands: Normal. No mass. Kidneys and ureters: Simple cortical renal cysts bilaterally. No hydronephrosis. Stomach and bowel: Diverting left lower quadrant ostomy new since previous examination with suture line noted. Moderate stool burden throughout the colon to the level of the ostomy. Fluid-filled small bowel loops in the lower abdomen and pelvis without distension to suggest obstruction. Appendix: No evidence of appendicitis. Intraperitoneal space: Resolution of previously seen extraluminal gas in the region of the sigmoid colon. Small fluid collections evident in the pelvis, smaller adjacent to the sigmoid suture line measuring 1.4 x 0.7 cm and larger anterior to the rectosigmoid junction measuring 2.5 x 5.3 x 2.3 cm. Vasculature: Unremarkable. No abdominal aortic aneurysm. Lymph nodes: Unremarkable. No enlarged lymph nodes. Urinary bladder: Huynh catheter in the urinary bladder with mild bladder distension. Reproductive: Unremarkable as visualized. Bones/joints: Unremarkable. No acute fracture. Soft tissues: Unremarkable. IMPRESSION: 1. Diverting left lower quadrant ostomy new since previous examination with suture line noted. Moderate stool burden throughout the colon to the level of the ostomy. 2. Resolution of previously seen extraluminal gas in the region of the sigmoid colon. Small fluid collections evident in the pelvis, smaller adjacent to the sigmoid suture line measuring 1.4 x 0.7 cm and larger anterior to the rectosigmoid junction measuring 2.5 x 5.3 x 2.3 cm. 3. Huynh catheter in the urinary bladder with mild bladder distension. 4. Small to moderate pleural effusions bilaterally. COMMENTS: Consistent with the [employer]'s Incidental Findings Committee white paper (J Am Danisha Radiol 2018): Any incidental renal lesion less than 1 cm or classified as too small to characterize, or any incidental cystic renal lesion characterized as simple-appearing, is likely benign. No follow-up imaging is recommended for these lesions per consensus recommendations based on imaging criteria.
--- NOTE | 2024-03-17 09:08 | CT_ITS ---
PROCEDURE INFORMATION: Exam: CT Chest With Contrast; Diagnostic Exam date and time: 03/17/2024 11:20 AM Age: 78 years old Clinical indication: Other: History of pleural effusions TECHNIQUE: Imaging protocol: Diagnostic computed tomography of the chest with contrast. Radiation optimization: All CT scans at this facility use at least one of these dose optimization techniques: automated exposure control; mA and/or kV adjustment per patient size (includes targeted exams where dose is matched to clinical indication); or iterative reconstruction. Contrast material: ISOVUE; Contrast volume: 75 ml; Contrast route: IV; COMPARISON: CT ANGIO CHEST PE PROTOCOL 03/14/2024 12:05 PM FINDINGS: Lungs: Bibasilar compressive atelectasis. Pleural spaces: Small to moderate pleural effusions bilaterally. Heart: Unremarkable. No cardiomegaly. No pericardial effusion. Lymph nodes: Unremarkable. No enlarged lymph nodes. Vasculature: Unremarkable. No aortic aneurysm. Bones/joints: Unremarkable. No acute fracture. Soft tissues: Unremarkable. IMPRESSION: 1. Small to moderate pleural effusions bilaterally. 2. Bibasilar compressive atelectasis.
[2024-03-17] MEDS: HYDROCODONE/APAP 5/325 MG TABLET 1 TAB PO (09:11)
[2024-03-17] MEDS: MEROPENEM 1 GM in 0.9 % SODIUM CHLORIDE 100 ML IV ×2 (09:15→21:32)
[2024-03-17 10:09] LABS: Procalcitonin 3.91 ng/mL (0.0-2.0)
[2024-03-17] MEDS: SODIUM CHLORIDE 0.9% 10ML SYR (RAD ONLY) 10 ML IV (11:20)
[2024-03-17] MEDS: IOPAMIDOL-370 (76%);100ML BOTTLE 75 ML IV (11:20)
[2024-03-17 14:08] LABS: MRSA DNA PCR Negative (Negative)
--- NOTE | 2024-03-17 14:10 | P.PN_ITS ---
Subjective *Date: 03/17/24 *Time: 14:10 Exam Data for Last 24 hours Vital signs and Labs for Last 24 Hours: Temp Pulse Resp BP Pulse Ox O2 Del Method O2 Flow Rate 98.6 F 78 16 146/78 H 98 Nasal Cannula 2 03/17/24 13:30 03/17/24 13:30 03/17/24 13:30 03/17/24 13:30 03/17/24 13:30 03/17/24 13:00 03/17/24 07:41 FiO2 92 03/13/24 18:30 Laboratory Results - last 24 hr 03/14/24 14:30: MRSA (PCR) Negative 03/16/24 08:00: Blood Type A Positive, Antibody Screen Negative, Crossmatch (AHG) See Detail 03/16/24 18:46: VBG pH 7.58 H, VBG pCO2 23.6 L, VBG pO2 97.7 H, VBG HCO3 21.5 L, VBG Total CO2 22.2 L, VBG O2 Saturation 98.8 H, VBG Base Excess -0.5, VBG Lactic Acid 1.6 03/16/24 19:20: WBC 14.2 H, RBC 3.17 L, Hgb 8.0 L, Hct 23.8 L, MCV 75.1 L, MCH 25.2 L, MCHC 33.6, RDW 17.1, Plt Count 231, MPV 8.6, Neut % (Auto) 86.5 H, Lymph % (Auto) 7.4 L, [place] % (Auto) 5.1, Eos % (Auto) 0.1, Baso % (Auto) 0.1, Neut # (Auto) 12.3 H, Lymph # (Auto) 1.1, [place] # (Auto) 0.7, Eos # (Auto) 0.0, Baso # (Auto) 0.0, Total Counted 100, Neutrophils % (Manual) 88 H, Lymphocytes % (Manual) 8 L, Monocytes % (Manual) 4, Platelet Estimate Normal, Hypochromasia 2+, Poikilocytosis 1+, Target Cells 1+ 03/16/24 22:49: Specimen Source Left radial, O2 % 2, ABG pH 7.57 H*, ABG pCO2 24.0 L, ABG pO2 68.4 L, ABG HCO3 21.3 L, ABG Total CO2 22.1 L, ABG O2 Saturation 95, ABG Base Excess -0.7, Hakeem Test Y 03/16/24 23:36: POC Glucose 150 H 03/17/24 04:20: WBC 9.5 D, RBC 2.98 L, Hgb 7.6 L, Hct 22.6 L, MCV 75.8 L, MCH 25.5 L, MCHC 33.6, RDW 17.5, Plt Count 231, MPV 8.8, Neut % (Auto) 78.7, Lymph % (Auto) 13.6, [place] % (Auto) 6.6, Eos % (Auto) 0.1, Baso % (Auto) 0.1, Neut # (Auto) 7.5, Lymph # (Auto) 1.3, [place] # (Auto) 0.6, Eos # (Auto) 0.0, Baso # (Auto) 0.0, Sodium 151 H*, Potassium 2.8 L*, Chloride 118 H, Carbon Dioxide 26, Anion Gap 9.8, BUN 21 H, Creatinine 0.90, Estimated Creat Clear 46, Estimated GFR 61, Est GFR ( Amer) 74 D, Glucose 124 H, Calcium 7.3 L, Phosphorus 1.8 L, Magnesium 2.3 D, Total Bilirubin 1.6 H, AST 78 H, ALT 41, Alkaline Phosphatase 84, Total Protein 5.4 L, Albumin 2.6 L, Globulin 2.8, Albumin/Globulin Ratio 0.9 L, Procalcitonin 3.91 H I & O for Last 24 hours: Intake & Output 03/14/24 03/15/24 03/16/24 03/17/24 23:59 23:59 23:59 23:59 Intake Total 1656.875 / 2156.875 1641 / 1741 2285 / 2285 689 / 689 Output Total 2400 / 2950 2985 / 2985 5485 / 5585 3290 / 3290 Balance -743.125 / -793.125 -1344 / -1244 -3200 / -3300 -2601 / -2601 Weight 60 kg 61.235 kg 61.235 kg 50.712 kg Microbiology Reports for the Last 24 Hours: Microbiology 03/13/24 08:34 Blood Blood Culture - Final 03/16/24 06:40 Blood Blood Culture - Preliminary NO GROWTH AFTER 24 HOURS 03/16/24 06:40 Blood Blood Culture - Preliminary NO GROWTH AFTER 24 HOURS Constitutional Constitutional: no acute distress *Routine HEENT Exam Head: Present normocephalic Eye: Present EOMI and PERRL ENT: Present mucous membranes moist *Routine Neck Exam Neck: Present supple; Absent lymphadenopathy *Routine Respiratory Exam Respiratory: Present CTA bilaterally *Routine Cardiovascular Exam Cardiovascular: Present RRR *Routine Abdominal Exam Abdominal: Present soft and normoactive bowel sounds; Absent tenderness Comments: Ostomy viable *Routine Extremities Exam Extremities: Absent cyanosis, clubbing or edema *Routine Skin Exam Skin: Present warm; Absent rash *Routine Neurological Exam Neurological: Present alert and oriented X3 Assessment and Plan *Assessment and plan (1) Sepsis: Status: Acute Category: Medical Code(s): A41.9 - Sepsis, unspecified organism (2) Rupture of colon: Status: Acute Category: Medical Code(s): K63.1 - Perforation of intestine (nontraumatic) (3) Ischemic colitis: Status: Deleted Category: Medical Code(s): K55.9 - Vascular disorder of intestine, unspecified (4) Stercoral colitis: Status: Acute Category: Medical Code(s): K52.89 - Other specified noninfective gastroenteritis and colitis (5) Anemia: Problem Comment: Not sure anemia is related to exclusively vaginal bleeding. She states this is improving. Agree with [employer]ENDANT for no need for intervention at this point. I am unclear about why patient is on Xarelto. Cardiology notes record atrial fibrillation but I can see no actual A-fib either on a Holter report that I read last year or any EKG recently. Patient states she is on the blood thinner so I do not have a heart attack. This may need to be readdressed with primary family practice office. I do not think her shortness of air is from the anemia and this seems to be perhaps a more chronic problem. I think this would be best worked up as an outpatient, I do not see a need for active transfusion at this point given normal vital signs. Status: Acute Qualifiers: Anemia type: other cause Other causes of anemia: acute posthemorrhagic Qualified Code(s): D62 - Acute posthemorrhagic anemia Category: Medical Code(s): D64.9 - Anemia, unspecified (6) Atrial fibrillation: Status: Deleted Qualifiers: Atrial fibrillation type: paroxysmal Qualified Code(s): I48.0 - Paroxysmal atrial fibrillation Category: Medical Code(s): I48.91 - Unspecified atrial fibrillation (7) Hypertension: Status: Chronic Qualifiers: Hypertension type: essential hypertension Qualified Code(s): I10 - Essential (primary) hypertension Category: Medical Code(s): I10 - Essential (primary) hypertension (8) GERD (gastroesophageal reflux disease): Status: Deleted Category: Medical Code(s): K21.9 - Gastro-esophageal reflux disease without esophagitis Plan Alesha Szymanski is a 78-year-old female with a medical history significant for A-fib on Xarelto, aortic valve insufficiency, hypertension, GERD who presented with evaluation of abdominal pain. CT abdomen/pelvis revealed sigmoid colon perforation and patient was emergently taken to the OR by Dr. Hurtado s/p partial sigmoid colectomy and end colostomy. During ex lap, patient was noted to have severe colon impaction with surrounding stercoral and ischemic colitis. Patient was recently started on iron supplementation which probably exacerbated underlying constipation. Upon my evaluation, patient was comfortably laying in bed coming out of sedation. She noted some abdominal pain, but improved since presentation. #Sigmoid colon perforation #Septic shock #Ischemic colitis #Stercoral colitis, severe fecal impaction ? General Surgery consulted, s/p ex lap 03/13/2024 with partial sigmoid colectomy and end colostomy, and fecal disimpaction. ? Discussed case with Dr. Hurtado extensively, will treat ischemic/stercoral colitis with IV antibiotics, hydration for now. May need surgical revision if signs of ischemic colitis re-present or abscess formation. ? WBC improved from 14.2-9.5. Continues to have fevers, 101.3 last night. Respiratory panel negative. Tachycardia has resolved. Currently on 2 L nasal cannula with appropriate saturations. ? Weaned off Levophed 03/14/24. Cautious on vasopressors in the setting of isc hemic colitis. Avoid phenylephrine. Can consider low-dose vasopressin if needed as secondary. Holding off on IV fluids for now as there signs of mild fluid overload. Required IV Lasix 40 mg today for tachypnea, apneic events in the setting of bilateral Pleural effusions. - Continue meropenem. ? Advance to full liquid diet. - General Surgery following, started IV Diflucan for stool associated pe ritonitis and oral mineral oil. Patient has had some increased soft stool output since mineral oil. Manual ostomy disimpaction trials have been unsuccessful thus far, and per surgery are high risk for perforation. Restarted MiraLAX daily. Avoiding bowel stimulants due to risk of perforation. ? Repeat CT abdomen/pelvis does not show signs of abscess or worsening colitis. Continues to show moderate stool burden. ? Continue to trend lactate in the setting of ischemic colitis. Lactate improving from 9-1.7. ? Procalcitonin improving from 7.24-3.91 #Acute hypoxic respiratory failure #Suspected hospital-acquired pneumonia #Bilateral moderate pleural effusions ? CT reveals bibasilar opacities in the setting of septic shock. ? Continue vancomycin, meropnem, doxycycline. ? BC showing light growth, sent to reference lab. Follow-up repeat blood cultures. ? Weaned from 6 L to 2 L nasal cannula ? Pulmonology consulted, pending further recommendations. #Elevated troponin #Elevated BNP ? Patient intially looked volume overloaded with sepsis bolus and IV fluids during procedure. Moura more euvolemic now. ? BNP increased to 4240. Troponin bumped from 0.05-2.85. EKG without acute ischemic changes. ? ECHO reveals LVEF 70%, hyperdynamic LV function, hypokinetic LV apex. ? Cardiology consulted, agreed this is likely from demand ischemia from sepsis. ? SOB improved with Lasix 40mg again today. #Hospital-acquired delirium ? Seroquel 25 mg nightly. Titrate based on response #Acute on chronic microcytic anemia ? Initial hemoglobin 7.7 improved to 10.0 on repeat CBC this afternoon. MCV 79.4. - Hemoglobin stable around 8.0, 7.6 today. ? Iron studies reveal significant iron deficiency. ? Plan to give IV Venofer as septic shock improves. ? No signs of nicole bleeding. Likely secondary to ischemic colitis as above. ? Given 1 unit PRBC 03/17/2020 in the setting of ischemic colitis. #Paroxysmal A-fib #Hypertension ? Currently in sinus tachycardia. ? Resumed Xarelrudolph dc if Hgb drops. ? Continue home metoprolol succinate 50 mg, digoxin 125 mcg - Resumed verapamil 120mg BID. #GERD ? Resume home PPI. #Hyperlipidemia ? Resume home statin. Full code Xarelto
[2024-03-17 16:58] LABS: Hematocrit 29.3 % (37.0-47.0)
[2024-03-17] MEDS: POLYETHYLENE GLYCOL 3350 17 GM PACKET PO (17:01)
[2024-03-17] MEDS: RIVAROXABAN 15MG TABLET 15 MG PO (17:01)
[2024-03-17 17:30] LABS: Hemoglobin 9.6 g/dL (12.2-16.2)
--- NOTE | 2024-03-17 17:36 | PC.NURSE ---
PT IS SITTING UP IN THE CHAIR. ALERT AND ORIENTED X2. PT HAS BEEN DROWSY T/O THE SHIFT. WILL AWAKEN TO TAKE MEDS AND ANSWER SIMPLE QUESTIONS. PT DID SIT UP TO TAKE A FEW BITES OF HER FULL LIQUID DIET. TOLERATED BLOOD TRANSFUSION WELL. VSS. O2 SATURATION HAS MAINTAINED 94-97% ON 2 L NC. ROOM AIR SATURATION 87%. LUNG SOUND SOUNDS CLEAR. ABDOMEN SOFT/TENDER WITH HYPOACTIVE BOWEL SOUNDS. MIDLINE INCISION NOTED WITH DRESSING. OSTOMY WITH SMALL AMOUNT OF LIQUID STOOL NOTED. PASSING FLATUS. WILL CONTINUE TO MONITOR.
[2024-03-17 18:45] LABS: Ferritin 105 ng/ml (11.1-264)
[2024-03-17] MEDS: ONDANSETRON 4MG/2ML VIAL 4 MG IV (19:12)
[2024-03-17] MEDS: FAMOTIDINE 20MG/2ML VIAL 20 MG IV (21:16)
[2024-03-17] MEDS: QUETIAPINE 25MG TABLET 25 MG PO (21:23)
[2024-03-17] MEDS: DEXTROSE 5 % IN WATER 1,000 ML 75 ML IV (21:53)
[2024-03-18] VITALS: BP 137/69; PULSE 88; RESP 17; TEMP 36.4; O2SAT 93
[2024-03-18] MEDS: DOXYCYCLINE HYCLATE 100 MG in 0.9 % SODIUM CHLORIDE 250 ML 166.667 MG IV ×2 (02:29→14:33)
[2024-03-18] MEDS: VANCOMYCIN HCL 1,000 MG in 0.9 % SODIUM CHLORIDE 250 ML 125 MG IV (02:29)
[2024-03-18 04:00] VITALS: BP 128/57; PULSE 86; RESP 16; TEMP 36.7; O2SAT 94; BMI 24.5
--- NOTE | 2024-03-18 04:41 | PC.NURSE ---
Pt. is alert and orientated x 2, knows name and birthday. Pt. was sitting in chair and requested to get back in bed. Pt. fell asleep as soon as she lay down. Pt.Pt. denies abdominal pain. Midline incision covered with dressing. dressing clean, dry, intact. Pt has a colostomy with a small amount of liquid stool. Pt. passing gas. Pt. on O2 , 2 liters per NC. Pt. getting IV antibiotics. Sleeping throughout shift. Awakens easily. VSS Personal items and call comer in reach.
[2024-03-18] MEDS: FLUCONAZOLE IN NACL,ISO-OSM 400 MG/200 ML BAG IV (05:24)
--- NOTE | 2024-03-18 06:28 | PC.NURSE ---
Pt. on maintance fluid of 5% Dextrose in water, the liter bag is labled as 5% Dextrose. Verified with Carisa in pharmacy and Robyn Eli RN this bag is 5% dextrose in water. It does not scan . it says medication does not exist on this patient. New bag hung 0630. unable to scan as unscheduled . Message says you can not document against a future time. .
[2024-03-18 08:00] VITALS: BP 139/61; PULSE 96; RESP 16; TEMP 36.6; O2SAT 97
[2024-03-18 08:15] LABS: Basophils % 0.1 % (0.1-2.0); Eosinophils # 0.1 K/mm3 (0.0-0.4); Eosinophils % 0.8 % (0.1-12.0); Hematocrit 28.2 % (37.0-47.0); Hemoglobin 9.2 g/dL (12.2-16.2); Lymphocytes # 1.5 K/mm3 (0.7-4.5); Lymphocytes % 20.7 % (10-50); Mean Corpuscular HGB Conc 32.6 g/dL (31.8-35.4); Mean Corpuscular Hemoglobin 25.8 pg (27.0-31.2); Mean Corpuscular Volume 79.2 fl (81-99); Mean Platelet Volume 9.5 fl (7.4-10.4); Monocytes # 0.7 K/mm3 (0.1-1.0); Monocytes % 10.1 % (1.7-9.3); Neutrophils # 4.8 K/mm3 (1.8-7.8); Neutrophils % 67.2 % (37.0-80.0); Platelet Count 231 K/mm3 (142-424); Red Blood Count 3.56 M/mm3 (4.20-5.40); Red Cell Distribution Width 18.2 % (11.5-17.5); White Blood Count 7.1 K/mm3 (4.8-10.8)
[2024-03-18 08:34] LABS: Chloride 118 mmol/L (98-107)
[2024-03-18 08:35] LABS: Albumin Level 2.6 g/dl (3.5-5.0); Potassium 3.1 mmoL/L (3.5-5.1)
[2024-03-18 08:37] LABS: Alanine Aminotransferase 41 U/L (12-78); Aspartate Amino Transferase 54 U/L (14-36); Blood Urea Nitrogen 19 mg/dl (7-17); Carbon Dioxide 26 mmol/L (22.0-30.0); Creatinine Clearance Estimated 39 mL/min (50-200); Estimated Glomerular Filt Rate 81 ml/min (>60); GFR (African American) 98 ML/MIN (>60); Globulin 2.7 g/dL (1.3-3.2); Total Protein,Serum 5.3 g/dl (6.3-8.2)
[2024-03-18 08:38] LABS: Alkaline Phosphatase 81 U/L (38-126); Bilirubin,Total 1.1 mg/dl (0.2-1.3); Calcium 6.9 mg/dl (8.4-10.2); Glucose 134 mg/dl (74-100); Magnesium 2.1 mg/dl (1.6-2.3)
[2024-03-18 08:45] LABS: Anion Gap 7.1 mEq/L (5-15); Sodium 148 mmol/L (136-145)
[2024-03-18] MEDS: MINERAL OIL 30 ML UDC PO ×2 (09:31→15:48)
[2024-03-18] MEDS: METOPROLOL SUCCINATE XL 50MG TABLET 50 MG PO (09:31)
[2024-03-18] MEDS: VERAPAMIL SR 120MG TABLET 120 MG PO ×2 (09:31→22:18)
[2024-03-18] MEDS: POLYETHYLENE GLYCOL 3350 17 GM PACKET PO ×2 (09:32→15:48)
[2024-03-18] MEDS: MEROPENEM 1 GM in 0.9 % SODIUM CHLORIDE 100 ML IV ×2 (09:32→22:19)
[2024-03-18] MEDS: HYDROCODONE/APAP 5/325 MG TABLET 1 TAB PO (09:37)
--- NOTE | 2024-03-18 10:27 | SW/DCPLANNER ---
Addendum entered by [facility] 03/26/24 14:15: Bebe w/ [facility] is able to accept patient and will contact patient/family today. Addendum entered by [facility] 03/26/24 13:05: Patient/family has called and requested placement at this time. Patient is agreeable to placement in [place] or [place] under [employer] M[employer] or Medicaid. Patient information has been faxed to [facility], [facility], [facility], [facility] and [facility]. I will continue to follow up w/ patient and family. Addendum entered by Joy Roman 03/21/24 14:52: Family stated that patient doesnt need homehealth or therapy at this time. Family stated that they can change patients colostomy bag. Lianna Salguero Addendum entered by [facility] 03/21/24 13:50: Patient information/order faxed to [facility] w/ expected discharge date of tomorrow 03/22/24. Addendum entered by [facility] 03/21/24 09:15: Patient information/order form faxed to [employer] yesterday for ostomy supply starter kit. Per Ludivina olea/ [employer] supplies will be delivered to patient's home on Monday03/23/24. Original Note: I called and spoke with patient's daughter (Kellie) regarding plans once medically stable for discharge. PT/OT evaluated patient and recommended placement or home with home health and 24/7 care. Kellie stated that patient is not interested in placement at this time. The plan for patient is to return home with other daughter (Bisi). Per Kellie patient is willing to accept home health services at time of discharge. I explained to Kellie that once medically stable for discharge I will attempt to arrange home health (prefer [facility]) but could be denied due to insurance. Discharge date is unknown at this time. CM will continue to follow up
[2024-03-18 12:00] VITALS: BP 113/56; PULSE 86; RESP 18; TEMP 36.6; O2SAT 94
--- NOTE | 2024-03-18 12:39 | P.PN_ITS ---
Subjective Patient reports: no new complaints Exam Data for Last 24 hours Vital signs and Labs for Last 24 Hours: Temp Pulse Resp BP Pulse Ox O2 Del Method O2 Flow Rate 97.8 F 96 H 16 139/61 97 Nasal Cannula 2 03/18/24 08:00 03/18/24 08:00 03/18/24 08:00 03/18/24 08:00 03/18/24 08:00 03/18/24 08:00 03/18/24 08:00 FiO2 92 03/13/24 18:30 Laboratory Results - last 24 hr 03/14/24 14:30: MRSA (PCR) Negative 03/16/24 08:00: Crossmatch (AHG) See Detail 03/17/24 04:20: Ferritin 105 D 03/17/24 16:50: Hgb 9.6 L D, Hct 29.3 L 03/18/24 07:10: WBC 7.1 D, RBC 3.56 L, Hgb 9.2 L, Hct 28.2 L, MCV 79.2 L, MCH 25.8 L, MCHC 32.6, RDW 18.2 H, Plt Count 231, MPV 9.5, Neut % (Auto) 67.2, Lymph % (Auto) 20.7, [place] % (Auto) 10.1 H, Eos % (Auto) 0.8, Baso % (Auto) 0.1, Neut # (Auto) 4.8, Lymph # (Auto) 1.5, [place] # (Auto) 0.7, Eos # (Auto) 0.1, Baso # (Auto) 0.0, Sodium 148 H, Potassium 3.1 L, Chloride 118 H, Carbon Dioxide 26, Anion Gap 7.1, BUN 19 H, Creatinine 0.70 D, Estimated Creat Clear 39, Estimated GFR 81, Est GFR ( Amer) 98 D, Glucose 134 H, Calcium 6.9 L, Magnesium 2.1, Total Bilirubin 1.1, AST 54 H D, ALT 41, Alkaline Phosphatase 81, Total Protein 5.3 L, Albumin 2.6 L, Globulin 2.7, Albumin/Globulin Ratio 1.0 L I & O for Last 24 hours: Intake & Output 03/16/24 03/17/24 03/18/24 03/19/24 11:59 11:59 11:59 11:59 Intake Total 841 / 841 2624 / 2624 522 / 522 Output Total 4140 / 4140 5615 / 5615 1090 / 1090 Balance -3299 / -3299 -2991 / -2991 -568 / -568 Weight 135 lb 0.001 oz 111 lb 12.8 oz 113 lb 9.6 oz Microbiology Reports for the Last 24 Hours: Microbiology 03/16/24 22:12 Blood Blood Culture - Preliminary NO GROWTH AFTER 24 HOURS 03/16/24 22:12 Blood Blood Culture - Preliminary NO GROWTH AFTER 24 HOURS 03/16/24 06:40 Blood Blood Culture - Preliminary NO GROWTH AFTER 48 HOURS 03/16/24 06:40 Blood Blood Culture - Preliminary NO GROWTH AFTER 48 HOURS 03/13/24 08:34 Blood Blood Culture - Final *Routine Abdominal Exam Abdominal: Present distended and ostomy Comments: Ostomy viable, somewhat congested. Good output of gas and loose stool. Progress Note: A&P Assessment and plan (1) Sepsis: Status: Acute (2) Rupture of colon: Status: Acute Assessment and plan: Continue current care. (3) Ischemic colitis: Status: Deleted (4) Stercoral colitis: Status: Acute (5) Anemia: Problem details: Not sure anemia is related to exclusively vaginal bleeding. She states this is improving. Agree with CUSTOMER RELATIONS REPRESENTATIVE for no need for intervention at this point. I am unclear about why patient is on Xarelto. Cardiology notes record atrial fibrillation but I can see no actual A-fib either on a Holter report that I read last year or any EKG recently. Patient states she is on the blood thinner so I do not have a heart attack. This may need to be readdressed with primary family practice office. I do not think her shortness of air is from the anemia and this seems to be perhaps a more chronic problem. I think this would be best worked up as an outpatient, I do not see a need for active transfusion at this point given normal vital signs. Status: Acute (6) Atrial fibrillation: Status: Deleted (7) Hypertension: Status: Chronic (8) GERD (gastroesophageal reflux disease): Status: Deleted
--- NOTE | 2024-03-18 13:32 | EXP.PN ---
Subjective *Date: 03/18/24 *Time: 14:27 Interval history: In good spirits today, tolerating breakfast well. Is having improved stool output in ostomy bag today. Continue PT/OT. Exam Data for Last 24 hours Vital signs and Labs for Last 24 Hours: Temp Pulse Resp BP Pulse Ox O2 Del Method O2 Flow Rate 97.8 F 86 18 113/56 L 94 L Nasal Cannula 2 03/18/24 12:00 03/18/24 12:00 03/18/24 12:00 03/18/24 12:00 03/18/24 12:00 03/18/24 13:00 03/18/24 13:00 FiO2 92 03/13/24 18:30 Laboratory Results - last 24 hr 03/14/24 14:30: MRSA (PCR) Negative 03/16/24 08:00: Crossmatch (AHG) See Detail 03/17/24 04:20: Ferritin 105 D 03/17/24 16:50: Hgb 9.6 L D, Hct 29.3 L 03/18/24 07:10: WBC 7.1 D, RBC 3.56 L, Hgb 9.2 L, Hct 28.2 L, MCV 79.2 L, MCH 25.8 L, MCHC 32.6, RDW 18.2 H, Plt Count 231, MPV 9.5, Neut % (Auto) 67.2, Lymph % (Auto) 20.7, [place] % (Auto) 10.1 H, Eos % (Auto) 0.8, Baso % (Auto) 0.1, Neut # (Auto) 4.8, Lymph # (Auto) 1.5, [place] # (Auto) 0.7, Eos # (Auto) 0.1, Baso # (Auto) 0.0, Sodium 148 H, Potassium 3.1 L, Chloride 118 H, Carbon Dioxide 26, Anion Gap 7.1, BUN 19 H, Creatinine 0.70 D, Estimated Creat Clear 39, Estimated GFR 81, Est GFR ( Amer) 98 D, Glucose 134 H, Calcium 6.9 L, Magnesium 2.1, Total Bilirubin 1.1, AST 54 H D, ALT 41, Alkaline Phosphatase 81, Total Protein 5.3 L, Albumin 2.6 L, Globulin 2.7, Albumin/Globulin Ratio 1.0 L I & O for Last 24 hours: Intake & Output 03/15/24 03/16/24 03/17/24 03/18/24 23:59 23:59 23:59 23:59 Intake Total 1641 / 1741 2285 / 2285 971 / 971 240 / 240 Output Total 2985 / 2985 5485 / 5585 3805 / 3805 575 / 575 Balance -1344 / -1244 -3200 / -3300 -2834 / -2834 -335 / -335 Weight 61.235 kg 61.235 kg 50.712 kg 51.528 kg Microbiology Reports for the Last 24 Hours: Microbiology 03/16/24 22:12 Blood Blood Culture - Preliminary NO GROWTH AFTER 24 HOURS 03/16/24 22:12 Blood Blood Culture - Preliminary NO GROWTH AFTER 24 HOURS 03/16/24 06:40 Blood Blood Culture - Preliminary NO GROWTH AFTER 48 HOURS 03/16/24 06:40 Blood Blood Culture - Preliminary NO GROWTH AFTER 48 HOURS 03/13/24 08:34 Blood Blood Culture - Final Constitutional Constitutional: no acute distress *Routine HEENT Exam Head: Present normocephalic Eye: Present EOMI and PERRL ENT: Present mucous membranes moist *Routine Neck Exam Neck: Present supple; Absent lymphadenopathy *Routine Respiratory Exam Respiratory: Present CTA bilaterally *Routine Cardiovascular Exam Cardiovascular: Present RRR *Routine Abdominal Exam Abdominal: Present distended and ostomy Comments: Ostomy viable, somewhat congested. Good output of gas and loose stool. *Routine Extremities Exam Extremities: Absent cyanosis, clubbing or edema *Routine Skin Exam Skin: Present warm; Absent rash *Routine Neurological Exam Neurological: Present alert and oriented X3 Assessment and Plan *Assessment and plan (1) Sepsis: Status: Acute Category: Medical Code(s): A41.9 - Sepsis, unspecified organism (2) Rupture of colon: Status: Acute Category: Medical Code(s): K63.1 - Perforation of intestine (nontraumatic) (3) Stercoral colitis: Status: Acute Category: Medical Code(s): K52.89 - Other specified noninfective gastroenteritis and colitis (4) Anemia: Problem Comment: Not sure anemia is related to exclusively vaginal bleeding. She states this is improving. Agree with FINANCIAL SYSTEMS DIRECTOR for no need for intervention at this point. I am unclear about why patient is on Xarelto. Cardiology notes record atrial fibrillation but I can see no actual A-fib either on a Holter report that I read last year or any EKG recently. Patient states she is on the blood thinner so I do not have a heart attack. This may need to be readdressed with primary family practice office. I do not think her shortness of air is from the anemia and this seems to be perhaps a more chronic problem. I think this would be best worked up as an outpatient, I do not see a need for active transfusion at this point given normal vital signs. Status: Acute Qualifiers: Anemia type: other cause Other causes of anemia: acute posthemorrhagic Qualified Code(s): D62 - Acute posthemorrhagic anemia Category: Medical Code(s): D64.9 - Anemia, unspecified (5) Hypertension: Status: Chronic Qualifiers: Hypertension type: essential hypertension Qualified Code(s): I10 - Essential (primary) hypertension Category: Medical Code(s): I10 - Essential (primary) hypertension Plan Alesha Szymanski is a 78-year-old female with a medical history significant for A-fib on Xarelto, aortic valve insufficiency, hypertension, GERD who presented with evaluation of abdominal pain. CT abdomen/pelvis revealed sigmoid colon perforation and patient was emergently taken to the OR by Dr. Hurtado s/p partial sigmoid colectomy and end colostomy. During ex lap, patient was noted to have severe colon impaction with surrounding stercoral and ischemic colitis. Patient was recently started on iron supplementation which probably exacerbated underlying constipation. Upon my evaluation, patient was comfortably laying in bed coming out of sedation. She noted some abdominal pain, but improved since presentation. #Sigmoid colon perforation #Septic shock #Ischemic colitis #Stercoral colitis, severe fecal impaction ? General Surgery consulted, s/p ex lap 03/13/2024 with partial sigmoid colectomy and end colostomy, and some fecal disimpaction. ? Discussed case with Dr. Hurtado and Dr. Meyers extensively, will treat ischemic/stercoral colitis with IV antibiotics, hydration for now. May need surgical revision if signs of ischemic colitis re-present or abscess formation. ? WBC resolved, peaked 18.1. Has been having fevers, but afebrile overnight. Respiratory panel negative. Tachycardia has resolved. Currently on 2 L nasal cannula with appropriate saturations. ? Weaned off Levophed 03/14/24. Cautious on vasopressors in the setting of ischemic colitis. - Continue meropenem since bowel perforation, stercoral colitis. ? Advanced diet to low residue diet. Tolerating oral intake well. No longer having nausea/vomiting. - General Surgery following, continue IV Diflucan for stool associated peritonitis and oral mineral oil. Patient is having gradual and liquid/soft stool output since starting mineral oil. Manual ostomy disimpaction trials have been unsuccessful thus far, and per surgery are high risk for perforation. Continue MiraLAX daily. Avoiding bowel stimulants due to risk of perforation. ? Increased to oral mineral oil to twice daily. ? Repeat CT abdomen/pelvis 03/19/2024 does not show signs of abscess or worsening colitis. Continues to show moderate stool burden. ? May require repeat CT in 2 to 3 days to again evaluate for abscess formation if patient has fevers again. ? Continue to trend lactate in the setting of ischemic colitis. Lactate improving from 9-1.7. ? Procalcitonin improving from 7.24-3.91 #Acute hypoxic respiratory failure #Suspected hospital-acquired pneumonia #Bilateral moderate pleural effusions ? CT reveals bibasilar opacities in the setting of septic shock. ? Continue meropnem, doxycycline. Discontinued vancomycin given negative MRSA screen. ? BC showing light growth, sent to reference lab. Negative blood cultures NGTD. ? Weaned from 6 L to 2 L nasal cannula ? Pulmonology consulted and assisting with care. #Elevated troponin #Elevated BNP ? Patient initially looked volume overloaded with sepsis bolus and IV fluids during procedure. Moura more euvolemic now. ? BNP increased to 4240. Troponin bumped from 0.05-2.85. EKG without acute ischemic changes. ? ECHO reveals LVEF 70%, hyperdynamic LV function, hypokinetic LV apex. ? Cardiology consulted, agreed this is likely from demand ischemia from sepsis. No plans for intervention at this time. ? SOB improved with Lasix 40mg again twice during admission. Cautious with IV fluids, but also with diuresis in the setting of ischemic colitis. #Hospital-acquired delirium ? Seroquel 25 mg nightly. Titrate based on response. Doing much better with confusion, sundowning. #Physical deconditioning ? PT/OT consulted, continuing to work with patient. #Acute on chronic microcytic anemia ? Initial hemoglobin 7.7 improved to 10.0 on repeat CBC this afternoon. MCV 79.4. - Hemoglobin stable around 9.2. ? Iron studies reveal significant iron deficiency. ? No signs of nicole bleeding. Likely secondary to ischemic colitis as above. ? Given 1 unit PRBC 03/17/2020 in the setting of ischemic colitis. Repeat ferritin is now normal at 105. #Paroxysmal A-fib #Hypertension ? Currently in sinus tachycardia. ? Resumed Xarelrudolph dc if Hgb drops. Patient is at high risk for DVT/PE with significant physical deconditioning, concomitant comorbidities. ? Continue home metoprolol succinate 50 mg, digoxin 125 mcg - Resumed verapamil 120mg BID. #GERD ? Resume home PPI. #Hyperlipidemia ? Resume home statin. Full code Toddrelto
[2024-03-18] MEDS: POTASSIUM CHLORIDE 20MEQ/15ML UDC 40 MEQ PO ×3 (15:48→22:19)
[2024-03-18 16:00] VITALS: BP 134/68; PULSE 88; RESP 18; TEMP 37.2; O2SAT 96
--- NOTE | 2024-03-18 16:25 | DIET.NUTRFU ---
Nursing indicated lunch intake was good, cleaned bowels. Low fiber/low residue ordered for dinner. Handouts were provide on diet recommendations with ostomy.
[2024-03-18] MEDS: RIVAROXABAN 15MG TABLET 15 MG PO (17:51)
[2024-03-18 20:00] VITALS: BP 144/80; PULSE 98; RESP 17; TEMP 36.7; O2SAT 92
[2024-03-18] MEDS: FAMOTIDINE 20MG/2ML VIAL 20 MG IV (22:17)
[2024-03-18] MEDS: SODIUM CHLORIDE 0.9% 10ML VIAL 8 ML IV (22:17)
[2024-03-18] MEDS: QUETIAPINE 25MG TABLET 25 MG PO (22:18)
[2024-03-19] VITALS: BP 115/79; PULSE 116; RESP 17; TEMP 36.8; O2SAT 92
[2024-03-19] MEDS: HYDROCODONE/APAP 5/325 MG TABLET 1 TAB PO ×3 (00:20→13:38)
[2024-03-19] MEDS: DOXYCYCLINE HYCLATE 100 MG in 0.9 % SODIUM CHLORIDE 250 ML 166.667 MG IV ×2 (02:09→13:38)
[2024-03-19 04:00] VITALS: BP 124/64; PULSE 102; RESP 16; TEMP 36.7; O2SAT 95; BMI 24.1
[2024-03-19] MEDS: FLUCONAZOLE IN NACL,ISO-OSM 400 MG/200 ML BAG IV (05:36)
--- NOTE | 2024-03-19 06:55 | PC.NURSE ---
Pt. is alert and oriented. She is a lot more alert and able to appropriately answer questions. She is on O2 2 liters per NC. She has a midline abdominal incision. dressing is clean, dry and intact. Her colostomy is putting out some liquid brown stool she is passing gas. the colostomy was burped a few times to expel air. Pt. getting IV antibiotics. VSS. Personal items and call comer in reach.
[2024-03-19 07:24] LABS: Basophils % 0.2 % (0.1-2.0); Eosinophils # 0.1 K/mm3 (0.0-0.4); Eosinophils % 0.7 % (0.1-12.0); Hematocrit 28.2 % (37.0-47.0); Hemoglobin 9.2 g/dL (12.2-16.2); Lymphocytes # 1.8 K/mm3 (0.7-4.5); Lymphocytes % 20.5 % (10-50); Mean Corpuscular HGB Conc 32.6 g/dL (31.8-35.4); Mean Corpuscular Hemoglobin 25.8 pg (27.0-31.2); Mean Corpuscular Volume 79.2 fl (81-99); Mean Platelet Volume 9.7 fl (7.4-10.4); Monocytes # 0.6 K/mm3 (0.1-1.0); Monocytes % 7.2 % (1.7-9.3); Neutrophils % 70.1 % (37.0-80.0); Platelet Count 234 K/mm3 (142-424); Red Blood Count 3.56 M/mm3 (4.20-5.40); Red Cell Distribution Width 18.4 % (11.5-17.5); White Blood Count 8.5 K/mm3 (4.8-10.8)
[2024-03-19 07:33] LABS: Alanine Aminotransferase 38 U/L (12-78); Albumin Level 2.4 g/dl (3.5-5.0); Alkaline Phosphatase 90 U/L (38-126); Anion Gap 7.6 mEq/L (5-15); Aspartate Amino Transferase 44 U/L (14-36); Bilirubin,Total 1.1 mg/dl (0.2-1.3); Blood Urea Nitrogen 20 mg/dl (7-17); Calcium 6.5 mg/dl (8.4-10.2); Carbon Dioxide 21 mmol/L (22.0-30.0); Chloride 117 mmol/L (98-107); Creatinine Clearance Estimated 38 mL/min (50-200); Estimated Glomerular Filt Rate 70 ml/min (>60); GFR (African American) 84 ML/MIN (>60); Globulin 2.3 g/dL (1.3-3.2); Glucose 105 mg/dl (74-100); Potassium 4.6 mmoL/L (3.5-5.1); Sodium 141 mmol/L (136-145); Total Protein,Serum 4.7 g/dl (6.3-8.2)
--- NOTE | 2024-03-19 08:32 | EXP.SURG.PN ---
Subjective Patient reports: no new complaints Exam Data for Last 24 hours Vital signs and Labs for Last 24 Hours: Temp Pulse Resp BP Pulse Ox O2 Del Method O2 Flow Rate 98.1 F 102 H 16 124/64 95 Nasal Cannula 2 03/19/24 04:00 03/19/24 04:00 03/19/24 04:00 03/19/24 04:00 03/19/24 04:00 03/19/24 07:00 03/19/24 07:00 FiO2 92 03/13/24 18:30 Laboratory Results - last 24 hr 03/16/24 08:00: Crossmatch (AHG) See Detail 03/18/24 07:10: Sodium 148 H, Potassium 3.1 L, Chloride 118 H, Carbon Dioxide 26, Anion Gap 7.1, BUN 19 H, Creatinine 0.70 D, Estimated Creat Clear 39, Estimated GFR 81, Est GFR ( Amer) 98 D, Glucose 134 H, Calcium 6.9 L, Magnesium 2.1, Total Bilirubin 1.1, AST 54 H D, ALT 41, Alkaline Phosphatase 81, Total Protein 5.3 L, Albumin 2.6 L, Globulin 2.7, Albumin/Globulin Ratio 1.0 L 03/19/24 06:47: WBC 8.5, RBC 3.56 L, Hgb 9.2 L, Hct 28.2 L, MCV 79.2 L, MCH 25.8 L, MCHC 32.6, RDW 18.4 H, Plt Count 234, MPV 9.7, Neut % (Auto) 70.1, Lymph % (Auto) 20.5, [place] % (Auto) 7.2, Eos % (Auto) 0.7, Baso % (Auto) 0.2, Neut # (Auto) 6.0, Lymph # (Auto) 1.8, [place] # (Auto) 0.6, Eos # (Auto) 0.1, Baso # (Auto) 0.0, Sodium 141, Potassium 4.6 D, Chloride 117 H, Carbon Dioxide 21 L, Anion Gap 7.6, BUN 20 H, Creatinine 0.80, Estimated Creat Clear 38, Estimated GFR 70, Est GFR ( Amer) 84, Glucose 105 H D, Calcium 6.5 L, Total Bilirubin 1.1, AST 44 H, ALT 38, Alkaline Phosphatase 90, Total Protein 4.7 L, Albumin 2.4 L, Globulin 2.3, Albumin/Globulin Ratio 1.0 L I & O for Last 24 hours: Intake & Output 03/16/24 03/17/24 03/18/24 03/19/24 11:59 11:59 11:59 11:59 Intake Total 841 / 841 2624 / 2624 522 / 522 930 / 930 Output Total 4140 / 4140 5615 / 5615 1090 / 1090 0 / 0 Balance -3299 / -3299 -2991 / -2991 -568 / -568 930 / 930 Weight 135 lb 0.001 oz 111 lb 12.8 oz 113 lb 9.6 oz 111 lb 15.917 oz Microbiology Reports for the Last 24 Hours: Microbiology 03/16/24 22:12 Blood Blood Culture - Preliminary NO GROWTH AFTER 48 HOURS 03/16/24 22:12 Blood Blood Culture - Preliminary NO GROWTH AFTER 48 HOURS 03/16/24 06:40 Blood Blood Culture - Preliminary NO GROWTH AFTER 48 HOURS 03/16/24 06:40 Blood Blood Culture - Preliminary NO GROWTH AFTER 48 HOURS Constitutional Constitutional: no acute distress *Routine Respiratory Exam Respiratory: Absent respiratory distress *Routine Abdominal Exam Comments: Incision healing without evidence of infection. Small amount of air and thin stool within ostomy bag. Progress Note: A&P Assessment and plan (1) Rupture of colon: Status: Acute (2) Stercoral colitis: Status: Acute Assessment and Plan Assessment and Plan for All Diagnoses:: Overall, doing fairly well postoperative day 6 status post exploratory laparotomy, partial sigmoid colectomy, and end colostomy. Although some evidence of bowel function noted she mostly has thin fluid and some air within bag. Plan to digitalize ostomy again later today. Continue IV antibiotics for now Continue PT/OT (ambulation)
[2024-03-19 09:24] VITALS: PULSE 102
[2024-03-19] MEDS: ASPIRIN EC 81MG TABLET 81 MG PO (09:24)
[2024-03-19] MEDS: VERAPAMIL SR 120MG TABLET 120 MG PO (09:24)
[2024-03-19] MEDS: METOPROLOL SUCCINATE XL 50MG TABLET 50 MG PO ×2 (09:24→11:25)
[2024-03-19] MEDS: DIGOXIN 0.125MG TABLET 62.5 MCG PO (09:24)
[2024-03-19] MEDS: POLYETHYLENE GLYCOL 3350 17 GM PACKET PO (09:24)
[2024-03-19] MEDS: MINERAL OIL 30 ML UDC PO ×2 (09:24→16:30)
[2024-03-19] MEDS: MEROPENEM 1 GM in 0.9 % SODIUM CHLORIDE 100 ML IV ×2 (09:24→21:59)
--- NOTE | 2024-03-19 10:05 | EXP.PULM.CON ---
History of Present Illness History of present illness: Ms. Szymanski is a 78-year-old male no baseline respiratory complaints presented to the ER bowel perforation s/p surgery mental needed to have improving oxygen carbon send CT showed bilateral lower lobe airspace disease/atelectasis and effusions, initiated treatment for hospital-acquired pneumonia and pulmonary was called for further evaluation and management. [facility] Disclaimer: The information contained in this section may have been updated after the patient was seen, as this information can be updated by other users. 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 (Updated 03/19/24 @ 12:20 by Pascual Hernandez MD) Pneumonia Atelectasis of both lungs Pleural effusion, bilateral Dyspnea on exertion Chronic cough Shortness of Breath Hypertension High cholesterol Afib Surgical History History of appendectomy Family History , ENVIRONMENTAL COMMUNICATIONS SPECIALIST) No significant family history Social History (Updated 03/13/24 @ 15:07 by Michelle Shelby RN) Smoking Status: Never smoker alcohol intake: never counseling provided: none (Patient does not smoke or use alcohol ) substance use type: denies use current occupational status: retired Travel in the last 8 weeks: None household members: family housing: house caffeine: Yes do you feel safe at home: Yes victim of physical abuse: No victim of emotional abuse: No victim of sexual abuse: No Have you lived/traveled outside [place] in past 30 days?: No Contact w/someone who lives/traveled outside US past 30 days?: No Exposure to someone with infectious disease in past 14 days?: No Do you have a fever (greater than 100.4 F or 38 C)?: No Have you tested positive for COVID-19: No Exposed to someone with COVID-19 in past 14 days?: No Do you have a sore throat?: No Do you have a cough?: No Do you have any weakness?: Yes Do you have any diarrhea?: No Are you experiencing any unusual bleeding?: No Do you have any muscle aches/pain?: No Do you have any abdominal pain?: No Are you experiencing loss of taste or smell?: No Review of Systems Constitutional Constitutional: Reports anorexia, Reports body ache(s) and Reports fatigue Eyes Eyes: Denies eye discharge, Denies dry eyes, Denies irritation and Denies itchy eyes ENT Ears, Nose, Mouth, and Throat: Denies epistaxis, Denies facial pain, Denies lip swelling and Denies throat swelling *Cardiovascular Cardiovascular: Reports dyspnea and Reports dyspnea on exertion *Respiratory Respiratory: Reports chest congestion, Reports cough, Reports dyspnea, Reports dyspnea on exertion, Denies excessive phlegm production, Denies hemoptysis, Denies pain on inspiration, Denies pain with cough and Denies wheezing *Gastrointestinal Gastrointestinal: Reports abdominal pain, Denies belching and Denies cramping Comments: Ostomy bag in place *Musculoskeletal Musculoskeletal: Reports back pain, Reports myalgias and Reports other (No small joint swelling or Pain) Psychiatric Psychiatric: Denies homicidal ideation and Denies suicidal ideation Endocrine Endocrine: Reports fatigue and Denies heat intolerance Hematologic/Lymphatic Hematologic/Lymphatic: Denies easy bleeding and Denies lymphadenopathy Allergic/Immunologic Allergic/Immunologic: Denies itchy eyes, Denies lip swelling, Denies throat swelling and Denies wheezing Pulmonology Exam Inpatient Vital signs and Labs for Last 24 Hours: Temp Pulse Resp BP Pulse Ox O2 Del Method O2 Flow Rate 98.1 F 102 H 16 124/64 95 Nasal Cannula 2 03/19/24 04:00 03/19/24 09:24 03/19/24 04:00 03/19/24 04:00 03/19/24 04:00 03/19/24 07:00 03/19/24 07:00 FiO2 92 03/13/24 18:30 Laboratory Results - last 24 hr 03/16/24 08:00: Crossmatch ([facility]) See Detail 03/19/24 06:47: WBC 8.5, RBC 3.56 L, Hgb 9.2 L, Hct 28.2 L, MCV 79.2 L, MCH 25.8 L, MCHC 32.6, RDW 18.4 H, Plt Count 234, MPV 9.7, Neut % (Auto) 70.1, Lymph % (Auto) 20.5, [place] % (Auto) 7.2, Eos % (Auto) 0.7, Baso % (Auto) 0.2, Neut # (Auto) 6.0, Lymph # (Auto) 1.8, [place] # (Auto) 0.6, Eos # (Auto) 0.1, Baso # (Auto) 0.0, Sodium 141, Potassium 4.6 D, Chloride 117 H, Carbon Dioxide 21 L, Anion Gap 7.6, BUN 20 H, Creatinine 0.80, Estimated Creat Clear 38, Estimated GFR 70, Est GFR ( Amer) 84, Glucose 105 H D, Calcium 6.5 L, Total Bilirubin 1.1, AST 44 H, ALT 38, Alkaline Phosphatase 90, Total Protein 4.7 L, Albumin 2.4 L, Globulin 2.3, Albumin/Globulin Ratio 1.0 L, Procalcitonin 1.30 I & O for Labs for Last 24 Hours: Intake & Output 03/16/24 03/17/24 03/18/24 03/19/24 23:59 23:59 23:59 23:59 Intake Total 2285 / 2285 971 / 971 1170 / 1170 Output Total 5485 / 5585 3805 / 3805 575 / 575 Balance -3200 / -3300 -2834 / -2834 595 / 595 Weight 135 lb 0.001 oz 111 lb 12.8 oz 113 lb 9.6 oz 111 lb 15.917 oz Microbiology Reports for the Last 24 Hours: Microbiology 03/16/24 22:12 Blood Blood Culture - Preliminary NO GROWTH AFTER 48 HOURS 03/16/24 22:12 Blood Blood Culture - Preliminary NO GROWTH AFTER 48 HOURS 03/16/24 06:40 Blood Blood Culture - Preliminary NO GROWTH AFTER 48 HOURS 03/16/24 06:40 Blood Blood Culture - Preliminary NO GROWTH AFTER 48 HOURS Constitutional: Present severe distress Head: Present normocephalic and atraumatic ENT: Present normal exam, normal oropharynx and mucous membranes moist Neck: Present normal inspection and full ROM Respiratory: Present respiratory distress, diminished air movement and able to speak in complete sentences; Absent prolonged expiratory phase or wheezes Cardiac: Present S1/S2, Tachycardia and radial pulses present GI: Present soft and distention Rectal (female): Present deferred (female): Present deferred Skin: Present intact; Absent cyanosis or jaundice Neuro: Present alert, awake and oriented x 3 Extremities: Present normal inspection; Absent clubbing or cyanosis Psychiatric: Present normal affect and cooperative Meds Home Medications and Allergies Home Medications ?Medication ?Instructions ?Recorded ?Confirmed ?Type aspirin 81 mg tablet,delayed 81 mg PO Q2D 12/31/19 03/13/24 History release (Adult Aspirin Regimen) digoxin 250 mcg (0.25 mg) tablet 125 mcg PO DAILY 12/31/19 03/13/24 History verapamil 120 mg tablet,extended 120 mg PO BID BP 12/31/19 03/13/24 History release simvastatin 40 mg tablet 40 mg PO HS 12/04/20 03/13/24 History metoprolol succinate 50 mg 50 mg PO DAILY 04/01/21 03/13/24 History tablet,extended release 24 hr rivaroxaban 15 mg tablet 15 mg PO QPMWITHMEAL 07/19/23 03/13/24 History albuterol sulfate 90 mcg/actuation 1 puff inhalation QIDP PRN 01/11/24 03/13/24 History aerosol inhaler Shortness Of Breath Or Wheezing pantoprazole 40 mg tablet,delayed 40 mg PO HS 01/11/24 03/13/24 History release estradiol 0.01% (0.1 mg/gram) 0.5 appful vaginal .3x weekly 01/18/24 03/13/24 Rx vaginal cream (Estrace) #42.5 grams losartan 50 mg tablet 50 mg PO DAILY 03/09/24 03/13/24 History levofloxacin 500 mg tablet 500 mg PO DAILY #5 tabs 03/10/24 03/13/24 Rx prednisone 10 mg tablet 10 mg PO DAILY #5 tabs 03/10/24 03/13/24 Rx New Prescriptions to Start Prescriptions: Allergies Allergy/AdvReac Type Severity Reaction Status Date / Time No Known Allergies Allergy Verified 02/29/24 12:05 Results Laboratory Findings 03/19/24 06:47 03/19/24 06:47 ABG ABG pH 7.57 mmol/L (7.35-7.45) H* 03/16/24 22:49 ABG pCO2 24.0 mmhg (35.0-45.0) L 03/16/24 22:49 ABG pO2 68.4 mmhg (80-100) L 03/16/24 22:49 ABG O2 Saturation 95 % (90-100) 03/16/24 22:49 Abnormal lab findings: Abnormal Labs 03/13/24 03/13/24 03/13/24 08:34 08:44 08:47 WBC 1.8 L* RBC 3.13 L Hgb 7.9 L Hct 25.7 L MCV MCH 25.2 L MCHC 30.7 L RDW Plt Count 540 H Neut % (Auto) Lymph % (Auto) [place] % (Auto) Eos % (Auto) 0.0 L Baso % (Auto) 0.0 L Neut # (Auto) 1.3 L Lymph # (Auto) 0.4 L Neutrophils % (Manual) Lymphocytes % (Manual) Monocytes % (Manual) ABG pH ABG pCO2 ABG pO2 ABG HCO3 ABG Total CO2 ABG Base Excess VBG pH 7.19 L VBG pCO2 32.2 L VBG pO2 VBG HCO3 12.1 L VBG Total CO2 13.1 L VBG O2 Saturation VBG Base Excess -16.0 L VBG Lactic Acid 9.6 H Sodium 134 L Potassium 3.2 L Chloride Carbon Dioxide 12 L Anion Gap 23.2 H BUN 24 H Creatinine 1.20 H Estimated GFR 44 L Est GFR ( Amer) 53 L Glucose 198 H POC Glucose Lactate Calcium Phosphorus Magnesium Iron Iron Saturation Ferritin Total Bilirubin 1.9 H AST 42 H Alkaline Phosphatase Troponin I 0.06 H C-Reactive Protein 45.1 H NT-Pro-B Natriuret Pep Total Protein 6.1 L Albumin Albumin/Globulin Ratio Procalcitonin Urine Blood Crossmatch ([facility]) See Detail 03/13/24 03/13/24 03/13/24 09:24 11:00 15:23 WBC RBC Hgb Hct MCV MCH MCHC RDW Plt Count Neut % (Auto) Lymph % (Auto) [place] % (Auto) Eos % (Auto) Baso % (Auto) Neut # (Auto) Lymph # (Auto) Neutrophils % (Manual) Lymphocytes % (Manual) Monocytes % (Manual) ABG pH ABG pCO2 ABG pO2 ABG HCO3 ABG Total CO2 ABG Base Excess VBG pH 7.27 L VBG pCO2 VBG pO2 VBG HCO3 16.8 L VBG Total CO2 17.9 L VBG O2 Saturation VBG Base Excess -10.1 L VBG Lactic Acid 3.9 H Sodium Potassium Chloride Carbon Dioxide Anion Gap BUN Creatinine Estimated GFR Est GFR ( Amer) Glucose POC Glucose Lactate Calcium Phosphorus Magnesium Iron 24 L Iron Saturation 5.93151 L Ferritin 9.21 L Total Bilirubin AST Alkaline Phosphatase Troponin I C-Reactive Protein NT-Pro-B Natriuret Pep Total Protein Albumin Albumin/Globulin Ratio Procalcitonin Urine Blood 1+ A Crossmatch ([facility]) 03/13/24 03/13/24 03/14/24 15:35 17:47 05:18 WBC 2.3 L D RBC 3.98 L D 4.12 L Hgb 10.0 L D 10.4 L Hct 31.6 L 32.3 L MCV 79.4 L 78.4 L MCH 25.6 L 25.2 L MCHC RDW 17.7 H Plt Count Neut % (Auto) Lymph % (Auto) [place] % (Auto) Eos % (Auto) 0.0 L Baso % (Auto) Neut # (Auto) 1.4 L Lymph # (Auto) Neutrophils % (Manual) Lymphocytes % (Manual) Monocytes % (Manual) ABG pH ABG pCO2 ABG pO2 ABG HCO3 ABG Total CO2 ABG Base Excess VBG pH VBG pCO2 VBG pO2 VBG HCO3 VBG Total CO2 VBG O2 Saturation VBG Base Excess VBG Lactic Acid Sodium 132 L 133 L Potassium 3.3 L Chloride Carbon Dioxide 18 L Anion Gap BUN 25 H Creatinine 1.20 H Estimated GFR 44 L Est GFR ( Amer) 53 L Glucose 111 H D POC Glucose Lactate 3.6 H 3.1 H Calcium 6.9 L Phosphorus Magnesium Iron Iron Saturation Ferritin Total Bilirubin 1.6 H AST 38 H Alkaline Phosphatase 27 L Troponin I C-Reactive Protein NT-Pro-B Natriuret Pep 1170 H Total Protein 3.9 L D Albumin 2.0 L D Albumin/Globulin Ratio Procalcitonin Urine Blood Crossmatch ([facility]) 03/14/24 03/14/24 03/14/24 05:18 05:18 05:18 WBC RBC Hgb Hct MCV MCH MCHC RDW Plt Count Neut % (Auto) Lymph % (Auto) [place] % (Auto) Eos % (Auto) Baso % (Auto) Neut # (Auto) Lymph # (Auto) Neutrophils % (Manual) Lymphocytes % (Manual) Monocytes % (Manual) ABG pH ABG pCO2 ABG pO2 ABG HCO3 ABG Total CO2 ABG Base Excess VBG pH VBG pCO2 VBG pO2 VBG HCO3 VBG Total CO2 VBG O2 Saturation VBG Base Excess VBG Lactic Acid Sodium 133 L Potassium Chloride 108 H Carbon Dioxide 15 L 15 L Anion Gap 15.3 H BUN 37 H D 38 H Creatinine 1.60 H D Estimated GFR Est GFR ( Amer) Glucose POC Glucose Lactate Calcium Phosphorus Magnesium Iron Iron Saturation Ferritin Total Bilirubin AST Alkaline Phosphatase Troponin I C-Reactive Protein NT-Pro-B Natriuret Pep Total Protein Albumin Albumin/Globulin Ratio Procalcitonin Urine Blood Crossmatch ([facility]) 03/14/24 03/14/24 03/14/24 05:18 05:18 05:18 WBC RBC Hgb Hct MCV MCH MCHC RDW Plt Count Neut % (Auto) Lymph % (Auto) [place] % (Auto) Eos % (Auto) Baso % (Auto) Neut # (Auto) Lymph # (Auto) Neutrophils % (Manual) Lymphocytes % (Manual) Monocytes % (Manual) ABG pH ABG pCO2 ABG pO2 ABG HCO3 ABG Total CO2 ABG Base Excess VBG pH VBG pCO2 VBG pO2 VBG HCO3 VBG Total CO2 VBG O2 Saturation VBG Base Excess VBG Lactic Acid Sodium Potassium Chloride Carbon Dioxide Anion Gap BUN Creatinine 1.60 H Estimated GFR 31 L 31 L Est GFR ([facility] Amer) 38 L D 38 L Glucose POC Glucose Lactate Calcium 7.2 L Phosphorus Magnesium Iron Iron Saturation Ferritin Total Bilirubin AST Alkaline Phosphatase Troponin I C-Reactive Protein NT-Pro-B Natriuret Pep Total Protein Albumin Albumin/Globulin Ratio Procalcitonin Urine Blood Crossmatch ([facility]) 03/14/24 03/14/24 03/14/24 05:18 06:00 10:20 WBC RBC Hgb Hct MCV MCH MCHC RDW Plt Count Neut % (Auto) Lymph % (Auto) [place] % (Auto) Eos % (Auto) Baso % (Auto) Neut # (Auto) Lymph # (Auto) Neutrophils % (Manual) Lymphocytes % (Manual) Monocytes % (Manual) ABG pH ABG pCO2 ABG pO2 ABG HCO3 ABG Total CO2 ABG Base Excess VBG pH VBG pCO2 31.4 L VBG pO2 157.1 H VBG HCO3 15.9 L VBG Total CO2 16.8 L VBG O2 Saturation 99.2 H VBG Base Excess -10.2 L VBG Lactic Acid 3.4 H Sodium Potassium Chloride Carbon Dioxide Anion Gap BUN Creatinine Estimated GFR Est GFR ( Amer) Glucose POC Glucose Lactate 2.4 H Calcium 7.1 L Phosphorus Magnesium Iron Iron Saturation Ferritin Total Bilirubin AST 46 H Alkaline Phosphatase 23 L Troponin I 2.85 H C-Reactive Protein NT-Pro-B Natriuret Pep 4240 H Total Protein 4.0 L Albumin 2.1 L Albumin/Globulin Ratio Procalcitonin Urine Blood Crossmatch ([facility]) 03/14/24 03/14/24 03/15/24 12:50 16:05 02:05 WBC RBC Hgb Hct MCV MCH MCHC RDW Plt Count Neut % (Auto) Lymph % (Auto) [place] % (Auto) Eos % (Auto) Baso % (Auto) Neut # (Auto) Lymph # (Auto) Neutrophils % (Manual) Lymphocytes % (Manual) Monocytes % (Manual) ABG pH ABG pCO2 ABG pO2 ABG HCO3 ABG Total CO2 ABG Base Excess VBG pH VBG pCO2 VBG pO2 VBG HCO3 VBG Total CO2 VBG O2 Saturation VBG Base Excess VBG Lactic Acid Sodium Potassium Chloride Carbon Dioxide Anion Gap BUN Creatinine Estimated GFR Est GFR ( Amer) Glucose POC Glucose 264 H Lactate 2.6 H Calcium Phosphorus Magnesium Iron Iron Saturation Ferritin Total Bilirubin AST Alkaline Phosphatase Troponin I 1.94 H C-Reactive Protein NT-Pro-B Natriuret Pep Total Protein Albumin Albumin/Globulin Ratio Procalcitonin Urine Blood Crossmatch ([facility]) 03/15/24 03/15/24 03/16/24 05:36 22:12 04:10 WBC 15.9 H D 18.1 H RBC 3.31 L 3.06 L Hgb 8.3 L 7.8 L 7.9 L Hct 25.3 L 22.9 L 23.7 L MCV 76.4 L 74.8 L MCH 25.1 L 25.5 L MCHC RDW 17.7 H Plt Count Neut % (Auto) 91.8 H 92.2 H Lymph % (Auto) 4.4 L 4.5 L [place] % (Auto) Eos % (Auto) 0.0 L Baso % (Auto) Neut # (Auto) 14.6 H 16.6 H Lymph # (Auto) Neutrophils % (Manual) 92 H 92 H Lymphocytes % (Manual) 5 L 7 L Monocytes % (Manual) 1 L ABG pH ABG pCO2 ABG pO2 ABG HCO3 ABG Total CO2 ABG Base Excess VBG pH VBG pCO2 VBG pO2 VBG HCO3 VBG Total CO2 VBG O2 Saturation VBG Base Excess VBG Lactic Acid Sodium 134 L Potassium Chloride 108 H Carbon Dioxide 16 L Anion Gap BUN 48 H D Creatinine 1.90 H Estimated GFR 26 L Est GFR ( Amer) 31 L Glucose 109 H POC Glucose Lactate Calcium 6.7 L Phosphorus Magnesium Iron Iron Saturation Ferritin Total Bilirubin 1.5 H AST 54 H Alkaline Phosphatase Troponin I C-Reactive Protein NT-Pro-B Natriuret Pep Total Protein 4.9 L Albumin 2.4 L D Albumin/Globulin Ratio 1.0 L Procalcitonin Urine Blood Crossmatch ([facility]) 03/16/24 03/16/24 03/16/24 06:40 08:00 10:45 WBC 18.0 H RBC 3.19 L Hgb 8.0 L Hct 24.0 L MCV 75.2 L MCH 25.1 L MCHC RDW Plt Count Neut % (Auto) 90.4 H Lymph % (Auto) 5.7 L [place] % (Auto) Eos % (Auto) Baso % (Auto) Neut # (Auto) 16.3 H Lymph # (Auto) Neutrophils % (Manual) 96 H Lymphocytes % (Manual) 3 L Monocytes % (Manual) 1 L ABG pH ABG pCO2 ABG pO2 ABG HCO3 ABG Total CO2 ABG Base Excess VBG pH VBG pCO2 VBG pO2 VBG HCO3 VBG Total CO2 VBG O2 Saturation VBG Base Excess VBG Lactic Acid Sodium Potassium 3.2 L Chloride 115 H Carbon Dioxide 20 L Anion Gap BUN 27 H D Creatinine 1.10 H D Estimated GFR 48 L Est GFR ( Amer) 58 L D Glucose 133 H POC Glucose Lactate Calcium 7.3 L Phosphorus Magnesium 2.7 H D Iron Iron Saturation Ferritin Total Bilirubin 1.8 H AST 69 H D Alkaline Phosphatase Troponin I C-Reactive Protein NT-Pro-B Natriuret Pep 3100 H Total Protein 5.4 L Albumin 2.7 L D Albumin/Globulin Ratio 1.0 L Procalcitonin 7.24 H Urine Blood 2+ A Crossmatch ([facility]) See Detail 03/16/24 03/16/24 03/16/24 11:31 18:46 19:20 WBC 14.2 H RBC 3.17 L Hgb 8.0 L Hct 23.8 L MCV 75.1 L MCH 25.2 L MCHC RDW Plt Count Neut % (Auto) 86.5 H Lymph % (Auto) 7.4 L [place] % (Auto) Eos % (Auto) Baso % (Auto) Neut # (Auto) 12.3 H Lymph # (Auto) Neutrophils % (Manual) 88 H Lymphocytes % (Manual) 8 L Monocytes % (Manual) ABG pH 7.47 H ABG pCO2 28.6 L ABG pO2 65.3 L ABG HCO3 20.2 L ABG Total CO2 21.0 L ABG Base Excess -3.6 L VBG pH 7.58 H VBG pCO2 23.6 L VBG pO2 97.7 H VBG HCO3 21.5 L VBG Total CO2 22.2 L VBG O2 Saturation 98.8 H VBG Base Excess VBG Lactic Acid Sodium Potassium Chloride Carbon Dioxide Anion Gap BUN Creatinine Estimated GFR Est GFR ( Amer) Glucose POC Glucose Lactate Calcium Phosphorus Magnesium Iron Iron Saturation Ferritin Total Bilirubin AST Alkaline Phosphatase Troponin I C-Reactive Protein NT-Pro-B Natriuret Pep Total Protein Albumin Albumin/Globulin Ratio Procalcitonin Urine Blood Crossmatch ([facility]) 03/16/24 03/16/24 03/17/24 22:49 23:36 04:20 WBC RBC 2.98 L Hgb 7.6 L Hct 22.6 L MCV 75.8 L MCH 25.5 L MCHC RDW Plt Count Neut % (Auto) Lymph % (Auto) [place] % (Auto) Eos % (Auto) Baso % (Auto) Neut # (Auto) Lymph # (Auto) Neutrophils % (Manual) Lymphocytes % (Manual) Monocytes % (Manual) ABG pH 7.57 H* ABG pCO2 24.0 L ABG pO2 68.4 L ABG HCO3 21.3 L ABG Total CO2 22.1 L ABG Base Excess VBG pH VBG pCO2 VBG pO2 VBG HCO3 VBG Total CO2 VBG O2 Saturation VBG Base Excess VBG Lactic Acid Sodium 151 H* Potassium 2.8 L* Chloride 118 H Carbon Dioxide Anion Gap BUN 21 H Creatinine Estimated GFR Est GFR ( Amer) Glucose 124 H POC Glucose 150 H Lactate Calcium 7.3 L Phosphorus 1.8 L Magnesium Iron Iron Saturation Ferritin Total Bilirubin 1.6 H AST 78 H Alkaline Phosphatase Troponin I C-Reactive Protein NT-Pro-B Natriuret Pep Total Protein 5.4 L Albumin 2.6 L Albumin/Globulin Ratio 0.9 L Procalcitonin 3.91 H Urine Blood Crossmatch ([facility]) 03/17/24 03/18/24 03/19/24 16:50 07:10 06:47 WBC RBC 3.56 L 3.56 L Hgb 9.6 L D 9.2 L 9.2 L Hct 29.3 L 28.2 L 28.2 L MCV 79.2 L 79.2 L MCH 25.8 L 25.8 L MCHC RDW 18.2 H 18.4 H Plt Count Neut % (Auto) Lymph % (Auto) [place] % (Auto) 10.1 H Eos % (Auto) Baso % (Auto) Neut # (Auto) Lymph # (Auto) Neutrophils % (Manual) Lymphocytes % (Manual) Monocytes % (Manual) ABG pH ABG pCO2 ABG pO2 ABG HCO3 ABG Total CO2 ABG Base Excess VBG pH VBG pCO2 VBG pO2 VBG HCO3 VBG Total CO2 VBG O2 Saturation VBG Base Excess VBG Lactic Acid Sodium 148 H Potassium 3.1 L Chloride 118 H 117 H Carbon Dioxide 21 L Anion Gap BUN 19 H 20 H Creatinine Estimated GFR Est GFR ( Amer) Glucose 134 H 105 H D POC Glucose Lactate Calcium 6.9 L 6.5 L Phosphorus Magnesium Iron Iron Saturation Ferritin Total Bilirubin AST 54 H D 44 H Alkaline Phosphatase Troponin I C-Reactive Protein NT-Pro-B Natriuret Pep Total Protein 5.3 L 4.7 L Albumin 2.6 L 2.4 L Albumin/Globulin Ratio 1.0 L 1.0 L Procalcitonin Urine Blood Crossmatch ([facility]) Assessment and Plan *Assessment and plan (1) Pleural effusion, bilateral: Status: Acute Category: Medical Code(s): J90 - Pleural effusion, not elsewhere classified (2) Atelectasis of both lungs: Status: Acute Category: Medical Code(s): J98.11 - Atelectasis (3) Pneumonia: Status: Acute Category: Medical Code(s): J18.9 - Pneumonia, unspecified organism Plan Ms. Szymanski is a 78-year-old male no baseline respiratory complaints presented to the ER bowel perforation s/p surgery mental needed to have improving oxygen carbon send CT showed bilateral lower lobe airspace disease/atelectasis and effusions, initiated treatment for hospital-acquired pneumonia and pulmonary was called for further evaluation and management. CT abdomen from admission no effusion/atelectatic changes were subsequent CT chest and abdomen showed bilateral pleural effusions mild to moderate along with bilateral lower lobe likely atelectasis Blood cultures negative so far. Nasal MRSA PCR negative. Currently receiving meropenem as per surgery recommendations. On initial examination patient appeared to be in moderate respiratory distress. Plan: Incentive spirometry and flutter valve PT OT as tolerated Continue oxygen supplementation. On 2 L saturating 91%. Will follow. No need for thoracentesis of the noted effusions. Receiving diuretics. Will monitor clinically. Continue Meropenem for total of 5 days for possible HAP. Thank you for involving pulmonary in this patient care. Will continue to follow.
--- NOTE | 2024-03-19 10:31 | P.PN_ITS ---
Subjective Subjective Date: 03/19/24 Time: 10:31 Principal diagnosis: Post op colostomy Interval history: 78 yo WF in bed in NAD. Taking pills without N/V No chest pain Does complain of some abdominal pain Discussed proceeding with [facility] prior to discharge with patient and one of her daughters (Bisi). Pt agrees to proceed and daughter agrees. Would like to hold Xarelto today and plan to proceed tomorrow. Exam Data for Last 24 hours Vital signs and Labs for Last 24 Hours: Temp Pulse Resp BP Pulse Ox O2 Del Method O2 Flow Rate 98.1 F 102 H 16 124/64 95 Nasal Cannula 2 03/19/24 04:00 03/19/24 09:24 03/19/24 04:00 03/19/24 04:00 03/19/24 04:00 03/19/24 07:00 03/19/24 07:00 FiO2 92 03/13/24 18:30 Laboratory Results - last 24 hr 03/16/24 08:00: Crossmatch (AHG) See Detail 03/19/24 06:47: WBC 8.5, RBC 3.56 L, Hgb 9.2 L, Hct 28.2 L, MCV 79.2 L, MCH 25.8 L, MCHC 32.6, RDW 18.4 H, Plt Count 234, MPV 9.7, Neut % (Auto) 70.1, Lymph % (Auto) 20.5, [place] % (Auto) 7.2, Eos % (Auto) 0.7, Baso % (Auto) 0.2, Neut # (Auto) 6.0, Lymph # (Auto) 1.8, [place] # (Auto) 0.6, Eos # (Auto) 0.1, Baso # (Auto) 0.0, Sodium 141, Potassium 4.6 D, Chloride 117 H, Carbon Dioxide 21 L, Anion Gap 7.6, BUN 20 H, Creatinine 0.80, Estimated Creat Clear 38, Estimated GFR 70, Est GFR ( Amer) 84, Glucose 105 H D, Calcium 6.5 L, Total Bilirubin 1.1, AST 44 H, ALT 38, Alkaline Phosphatase 90, Total Protein 4.7 L, Albumin 2.4 L, Globulin 2.3, Albumin/Globulin Ratio 1.0 L, Procalcitonin 1.30 I & O for Last 24 hours: Intake & Output 01/04/25 01/05/25 01/06/25 01/07/25 11:59 11:59 11:59 11:59 Intake Total 841 / 841 2624 / 2624 522 / 522 930 / 930 Output Total 4140 / 4140 5615 / 5615 1090 / 1090 0 / 0 Balance -3299 / -3299 -2991 / -2991 -568 / -568 930 / 930 Weight 135 lb 0.001 oz 111 lb 12.8 oz 113 lb 9.6 oz 111 lb 15.917 oz Microbiology Reports for the Last 24 Hours: Microbiology 03/16/24 22:12 Blood Blood Culture - Preliminary NO GROWTH AFTER 48 HOURS 03/16/24 22:12 Blood Blood Culture - Preliminary NO GROWTH AFTER 48 HOURS 03/16/24 06:40 Blood Blood Culture - Preliminary NO GROWTH AFTER 48 HOURS 03/16/24 06:40 Blood Blood Culture - Preliminary NO GROWTH AFTER 48 HOURS Constitutional Constitutional: no acute distress *Routine Respiratory Exam Respiratory: Present decreased breath sounds *Routine Cardiovascular Exam Cardiovascular: Present RRR and tachycardia *Routine Extremities Exam Extremities: Absent edema Progress Note: A&P Assessment and plan (1) Rupture of colon: Status: Acute (2) Stercoral colitis: Status: Acute (3) Sepsis: Status: Acute (4) Hypertension: Status: Chronic (5) Microcytic anemia: Status: Acute (6) PAF (paroxysmal atrial fibrillation): Status: Acute (7) Hospital-acquired pneumonia: Status: Acute Assessment and Plan Assessment and Plan for All Diagnoses:: 1. Perforated bowel secondary to stercoral colitis with septic shock, -s/p exploratory laparotomy, partial sigmoid colectomy and end colostomy -per surgery 2. Elevated troponin likely due to stress/demand ischemia from #1 -Echo shows hyperdynamic EF of 70% with mild hypokinesis of LV apex vs image dropout on echo -plan cardiac cath tomorrow 3. History of PAF -previously controlled on BB, dig, and verapamil as outpatient (held here due to BP). -stop verapamil due to constipation/sterecoral colitis. -continue digoxin and metoprolol -on Xarelto 4. sinus tachycardia -gentle hydration should help 5. Microcytic anemia, acute on chronic -likely exacerbated by ischemic colitis -started on IV venofer 6. Suspected hospital acquired pneumonia -per Hospitalist -On doxycycline, meropenem and fluconazole Oral hydration as tolerated. chronic Tachycardia exacerbated by recent events/surgery. Increase metoprolol slowly as BP tolerates. Avoid verapamil due to constipation issues. Plan cardiac cath tomorrow.
--- NOTE | 2024-03-19 12:24 | PC.NURSE ---
Dr. Hurtado examined pt ostomy at bedside with this rn. dressing on midline incision and ostomy appliance/bag changed. also removed 14 quin[place] from midline incision. Dr. Hurtado also digitally examined the ostomy, noting multiple hard balls of stool. incision c/d/i. pt producing creamy dark brown stool. Pt to ambulate as much as tolerated and take stool softeners to encourage bms.
--- NOTE | 2024-03-19 12:27 | PC.NURSE ---
pt provided with sputum cup and educated on need for sample. pt verbalized understanding.
--- NOTE | 2024-03-19 12:49 | P.PN_ITS ---
Subjective *Date: 03/19/24 *Time: 15:49 Interval history: Patient denies any nausea or vomiting. Still no significant bowel movement. Tolerating 2 L oxygen. Complains of some mild abdominal discomfort Medical Exam Vital signs and Labs for Last 24 Hours: Vital Signs Temp Pulse Pulse Resp BP Pulse Ox O2 Del Method 03/19/24 09:24 102 H 03/19/24 07:00 Nasal Cannula 03/19/24 05:00 Nasal Cannula 03/19/24 04:00 98.1 F 102 H 16 124/64 95 Nasal Cannula 03/19/24 03:00 Nasal Cannula 03/19/24 01:00 Nasal Cannula 03/19/24 00:00 98.3 F 116 H 17 115/79 92 L Nasal Cannula 03/18/24 23:00 Nasal Cannula 03/18/24 21:00 Nasal Cannula 03/18/24 20:00 Nasal Cannula 03/18/24 20:00 98.1 F 98 H 17 144/80 H 92 L Nasal Cannula 03/18/24 18:16 Nasal Cannula 03/18/24 16:16 Nasal Cannula 03/18/24 16:00 99 F 88 18 134/68 96 Nasal Cannula 03/18/24 15:00 Nasal Cannula 03/18/24 13:00 Nasal Cannula O2 Flow Rate 03/19/24 09:24 03/19/24 07:00 2 03/19/24 05:00 2 03/19/24 04:00 2 03/19/24 03:00 2 03/19/24 01:00 2 03/19/24 00:00 3 03/18/24 23:00 2 03/18/24 21:00 2 03/18/24 20:00 2 03/18/24 20:00 3 03/18/24 18:16 2 03/18/24 16:16 2 03/18/24 16:00 2 03/18/24 15:00 2 03/18/24 13:00 2 Intake and Output 03/18/24 03/19/24 03/19/24 23:59 07:59 15:59 Intake Total 450 / 1170 240 / 240 Output Total 0 / 575 Balance 450 / 595 240 / 240 Intake: Intake, Oral Amount 450 / 1170 240 / 240 Output: Output, Urine Amount 0 / 575 Other: Weight 50.8 kg Patient Weight 03/19/24 23:59 Weight 50.8 kg Laboratory Results - last 24 hr 03/16/24 08:00: Crossmatch (AHG) See Detail 03/19/24 06:47: WBC 8.5, RBC 3.56 L, Hgb 9.2 L, Hct 28.2 L, MCV 79.2 L, MCH 25.8 L, MCHC 32.6, RDW 18.4 H, Plt Count 234, MPV 9.7, Neut % (Auto) 70.1, Lymph % (Auto) 20.5, [place] % (Auto) 7.2, Eos % (Auto) 0.7, Baso % (Auto) 0.2, Neut # (Auto) 6.0, Lymph # (Auto) 1.8, [place] # (Auto) 0.6, Eos # (Auto) 0.1, Baso # (Auto) 0.0, Sodium 141, Potassium 4.6 D, Chloride 117 H, Carbon Dioxide 21 L, Anion Gap 7.6, BUN 20 H, Creatinine 0.80, Estimated Creat Clear 38, Estimated GFR 70, Est GFR ( Amer) 84, Glucose 105 H D, Calcium 6.5 L, Total Bilirubin 1.1, AST 44 H, ALT 38, Alkaline Phosphatase 90, Total Protein 4.7 L, Albumin 2.4 L, Globulin 2.3, Albumin/Globulin Ratio 1.0 L, Procalcitonin 1.30 I & O for Labs for Last 24 Hours: Intake & Output 03/16/24 03/17/24 03/18/24 03/19/24 23:59 23:59 23:59 23:59 Intake Total 2285 / 2285 971 / 971 1170 / 1170 240 / 240 Output Total 5485 / 5585 3805 / 3805 575 / 575 Balance -3200 / -3300 -2834 / -2834 595 / 595 240 / 240 Weight 61.235 kg 50.712 kg 51.528 kg 50.8 kg Microbiology Reports for the Last 24 Hours: Microbiology 03/16/24 22:12 Blood Blood Culture - Preliminary NO GROWTH AFTER 48 HOURS 03/16/24 22:12 Blood Blood Culture - Preliminary NO GROWTH AFTER 48 HOURS Constitutional: Present no acute distress and chronically ill appearing Head: Present atraumatic and normocephalic ENT: Present normal exam Respiratory: Present crackles (Dependent portions) and normal respiratory effort; Absent rhonchi or wheezes Cardiac: Present Regular Rhythm and Tachycardia GI: Present soft, distention, tenderness (Diffuse, nonfocal) and normal bowel sounds Extremities: Present normal inspection and full ROM Skin: Present intact; Absent erythema Neuro: Present Grossly Intact, alert, awake, oriented x 3 and moves all extremities Assessment and Plan *Assessment and plan (1) Sepsis: Status: Acute Category: Medical Code(s): A41.9 - Sepsis, unspecified organism (2) Hospital-acquired pneumonia: Status: Acute Category: Medical Code(s): J18.9 - Pneumonia, unspecified organism; Y95 - Nosocomial condition (3) Rupture of colon: Status: Acute Category: Medical Code(s): K63.1 - Perforation of intestine (nontraumatic) (4) Stercoral colitis: Status: Acute Category: Medical Code(s): K52.89 - Other specified noninfective gastroenteritis and colitis (5) Anemia: Problem Comment: Not sure anemia is related to exclusively vaginal bleeding. She states this is improving. Agree with [employer] for no need for intervention at this point. I am unclear about why patient is on Xarelto. Cardiology notes record atrial fibrillation but I can see no actual A-fib either on a Holter report that I read last year or any EKG recently. Patient states she is on the blood thinner so I do not have a heart attack. This may need to be readdressed with primary family practice office. I do not think her shortness of air is from the anemia and this seems to be perhaps a more chronic problem. I think this would be best worked up as an outpatient, I do not see a need for active transfusion at this point given normal vital signs. Status: Acute Qualifiers: Anemia type: other cause Other causes of anemia: acute posthemorrhagic Qualified Code(s): D62 - Acute posthemorrhagic anemia Category: Medical Code(s): D64.9 - Anemia, unspecified (6) Hypertension: Status: Chronic Qualifiers: Hypertension type: essential hypertension Qualified Code(s): I10 - Essential (primary) hypertension Category: Medical Code(s): I10 - Essential (primary) hypertension (7) Atelectasis of both lungs: Status: Acute Category: Medical Code(s): J98.11 - Atelectasis (8) Microcytic anemia: Status: Acute Category: Medical Code(s): D50.9 - Iron deficiency anemia, unspecified (9) PAF (paroxysmal atrial fibrillation): Status: Acute Category: Medical Code(s): I48.0 - Paroxysmal atrial fibrillation (10) Pleural effusion, bilateral: Status: Acute Category: Medical Code(s): J90 - Pleural effusion, not elsewhere classified (11) Pneumonia: Status: Acute Category: Medical Code(s): J18.9 - Pneumonia, unspecified organism Plan Alesha Szymanski is a 78-year-old female with a medical history significant for A-fib on Xarelto, aortic valve insufficiency, hypertension, GERD who presented with evaluation of abdominal pain. CT abdomen/pelvis revealed sigmoid colon perforation and patient was emergently taken to the OR by Dr. Hurtado s/p partial sigmoid colectomy and end colostomy. During ex lap, patient was noted to have severe colon impaction with surrounding stercoral and ischemic colitis. Patient still has not had meaningful bowel movement. Pulmonology and cardiology assisting with care today along with surgery. Continues to require inpatient management. Problems addressed as follows: #Sigmoid colon perforation #Septic shock #Ischemic colitis #Stercoral colitis, severe fecal impaction ? General Surgery consulted, s/p ex lap 03/13/2024 with partial sigmoid colectomy and end colostomy, and some fecal disimpaction. ? Discussed case with Dr. Hurtado extensively, will treat ischemic/stercoral colitis with IV antibiotics. Tolerating p.o. liquids. Aggressive bowel regimen initiated today. -White count improved to 8.5. Hemoglobin remains low at 9.2 but stable. No active signs of bleeding. -Afebrile for 24 hours. Discontinue antifungals today. Continue supplemental oxygen at 2 L nasal cannula as needed for goal sats greater 90%. - Continue meropenem since bowel perforation, stercoral colitis. ? Low residue diet. Aggressive bowel regimen with MiraLAX every 4 hours for the next 2 days. Still has significant stool burden in colon. ? Increased to oral mineral oil to twice daily. ? Repeat CT abdomen/pelvis 03/19/2024 does not show signs of abscess or worsening colitis. Continues to show moderate stool burden. ? Procalcitonin improving from 7.24 to 1.3 today. Repeat CBC, CMP, magnesium and procalcitonin ordered for the morning. #Acute hypoxic respiratory failure #Suspected hospital-acquired pneumonia #Bilateral moderate pleural effusions ? CT reveals bibasilar opacities in the setting of septic shock. ? Continue meropnem, discussed case with pulmonology, will do 5 days of antibiotics for possible pneumonia. #Elevated troponin #Elevated BNP ? Patient initially looked volume overloaded with sepsis bolus and IV fluids during procedure. [place] more euvolemic now. ? BNP increased to 4240. Troponin bumped from 0.05-2.85. EKG without acute ischemic changes. ? ECHO reveals LVEF 70%, hyperdynamic LV function, hypokinetic LV apex. ? Cardiology consulted, plan to perform left heart cath in the morning. Holding Xarelto. -Reevaluate need for diuresis daily, no diuretics today. #Hospital-acquired delirium ? Seroquel 25 mg nightly. Titrate based on response. Doing much better with confusion, ing. #Physical deconditioning ? PT/OT consulted, continuing to work with patient. Recommend discharge home with home health when medically stable. #Acute on chronic microcytic anemia ? Initial hemoglobin 7.7. Hemoglobin 9.2. Stable. No signs of bleeding -Significant iron deficiency. ? Given 1 unit PRBC 03/17/2020 in the setting of ischemic colitis. Repeat ferritin is now normal at 105. #Paroxysmal A-fib #Hypertension ? Currently in sinus tachycardia. ? Holding Xarelto pending left heart cath. Transition from metoprolol to carvedilol for better blood pressure improvement. 25 mg twice daily. Continue digoxin 125 mcg daily. Stop verapamil as it has side effects of constipation. #GERD ? Resume home PPI. #Hyperlipidemia ? Resume home statin. Full code Holding anticoagulant today Low residue diet
[2024-03-19] MEDS: POLYETHYLENE GLYCOL 3350 238GM POWDER 17 GM PO ×3 (13:38→20:54)
[2024-03-19 16:00] VITALS: BP 150/73; PULSE 88; RESP 20; O2SAT 98
[2024-03-19 20:00] VITALS: BP 139/78; PULSE 87; RESP 18; TEMP 36.9; O2SAT 98
[2024-03-19] MEDS: CARVEDILOL 25MG TABLET 25 MG PO (20:54)
[2024-03-19] MEDS: QUETIAPINE 25MG TABLET 25 MG PO (20:54)
[2024-03-19] MEDS: FAMOTIDINE 20MG TABLET 20 MG PO (20:54)
[2024-03-20] VITALS (20 sets, daily range): BP systolic 97–144; BP diastolic 52–78; PULSE 61–97; RESP 16–20; TEMP 36.4–37.4; O2SAT 92–96; BMI 27.1
[2024-03-20] MEDS: DOXYCYCLINE HYCLATE 100 MG in 0.9 % SODIUM CHLORIDE 250 ML 166.667 MG IV (01:00)
--- NOTE | 2024-03-20 01:36 | PC.NURSE ---
Assessed patient ostomy 0045, ostomy had leaked into midline dressing, midline cleaned and redressed, new ostomy placed at this time.
--- NOTE | 2024-03-20 05:15 | PC.NURSE ---
Alert and oriented. Ambulates to restroom. Midline incision, dressing changed due to leaking of ostomy, ostomy changed. Patient has had large thin brown BM x3 tonight. 2L NC, patient sometimes takes O2 off, tolerated well, O2 sat >90%. Bed alarm on. Call light in reach.
[2024-03-20] MEDS: SODIUM CHLORIDE 3% 15ML NEB 3 ML IH (06:07)
[2024-03-20 07:06] LABS: Basophils % 0.3 % (0.1-2.0); Eosinophils # 0.1 K/mm3 (0.0-0.4); Hematocrit 27.6 % (37.0-47.0); Hemoglobin 8.9 g/dL (12.2-16.2); Lymphocytes # 1.7 K/mm3 (0.7-4.5); Lymphocytes % 14.5 % (10-50); Mean Corpuscular HGB Conc 32.2 g/dL (31.8-35.4); Mean Corpuscular Hemoglobin 25.9 pg (27.0-31.2); Mean Corpuscular Volume 80.5 fl (81-99); Mean Platelet Volume 9.9 fl (7.4-10.4); Monocytes # 0.6 K/mm3 (0.1-1.0); Neutrophils # 9.2 K/mm3 (1.8-7.8); Neutrophils % 78.2 % (37.0-80.0); Platelet Count 288 K/mm3 (142-424); Red Blood Count 3.43 M/mm3 (4.20-5.40); Red Cell Distribution Width 18.5 % (11.5-17.5); White Blood Count 11.7 K/mm3 (4.8-10.8)
--- NOTE | 2024-03-20 07:16 | IR_ITS ---
APPROVED REPORT Patient Location: Inpatient PROCEDURES Left heart catheterization Left ventriculogram Selective coronary angiogram INDICATION Acute non-ST elevation myocardial infarction Informed consent was obtained prior to the procedure. COMPLICATIONS NONE Estimated Blood Loss: LESS THAN 10 ML TECHNIQUE One percent lidocaine used to anesthetize the right anterior aspect of the wrist. The right radial artery was accessed via the Seldinger technique. A 6 [place] sheath was placed in the right radial artery. 2.5 mg of Verapamil, 800 mcg of nitroglycerin, 1mg Lidocaine and 5000 U Heparin were given through the arterial sheath. The papa catheter was also used to perform left heart catheterization, left ventriculogram and selective coronary angiogram. At the end of the procedure the sheath was removed good hemostasis was achieved using Traclet band, patient was transferred to the postop holding area in stable condition. ANGIOGRAPHIC RESULTS The left main artery Has an eccentric long 10 to 20% stenosis The left anterior descending artery Has proximal 20 to 30% stenosis with a mid vessel long 60% stenosis just prior to significant mid vessel tortuosity. The first and second diagonal arteries are small and have ostial 60% stenosis The circumflex artery Tortuous with calcified proximal and mid vessel 10 to 20% stenosis The right coronary artery Dominant with diffuse 10 to 20% calcified stenoses The MCGUIRE ventriculogram reveals Hyperdynamic 75% The left ventricular end-diastolic pressure 20 mmHg IMPRESSION Mid vessel LAD disease as described above which is best managed medically Likely type II myocardial infarction Hyperdynamic ventricle Elevated LVEDP PLAN 1. Medical management for coronary disease and non-STEMI Electronically signed by : Cale Mclaughlin MD 03/20/2024 16:19:39
[2024-03-20 07:21] LABS: Alanine Aminotransferase 42 U/L (12-78); Albumin Level 2.4 g/dl (3.5-5.0); Albumin/Globulin Ratio 0.9 (1.1-1.8); Alkaline Phosphatase 100 U/L (38-126); Anion Gap 9.1 mEq/L (5-15); Aspartate Amino Transferase 57 U/L (14-36); Bilirubin,Total 0.9 mg/dl (0.2-1.3); Blood Urea Nitrogen 23 mg/dl (7-17); Calcium 6.7 mg/dl (8.4-10.2); Carbon Dioxide 20 mmol/L (22.0-30.0); Chloride 114 mmol/L (98-107); Creatinine Clearance Estimated 43 mL/min (50-200); Estimated Glomerular Filt Rate 81 ml/min (>60); GFR (African American) 98 ML/MIN (>60); Globulin 2.6 g/dL (1.3-3.2); Glucose 98 mg/dl (74-100); Potassium 4.1 mmoL/L (3.5-5.1); Sodium 139 mmol/L (136-145)
[2024-03-20 07:36] LABS: Procalcitonin 0.778 ng/mL (0.0-2.0)
--- NOTE | 2024-03-20 08:46 | EXP.SURG.PN ---
Subjective Patient reports: feels better Narrative: Significant thin stool over the last 12 hours via ostomy noted per nursing staff Exam Data for Last 24 hours Vital signs and Labs for Last 24 Hours: Temp Pulse Resp BP Pulse Ox O2 Del Method O2 Flow Rate 98.6 F 97 H 16 133/69 94 L Room Air 2 03/20/24 08:00 03/20/24 08:00 03/20/24 08:00 03/20/24 08:00 03/20/24 08:00 03/20/24 08:00 03/20/24 06:57 FiO2 92 03/13/24 18:30 Laboratory Results - last 24 hr 03/13/24 08:44: Blood Type A Positive, Antibody Screen Negative, Crossmatch (AHG) See Detail 03/19/24 06:47: Procalcitonin 1.30 03/20/24 06:54: WBC 11.7 H D, RBC 3.43 L, Hgb 8.9 L, Hct 27.6 L, MCV 80.5 L, MCH 25.9 L, MCHC 32.2, RDW 18.5 H, Plt Count 288, MPV 9.9, Neut % (Auto) 78.2, Lymph % (Auto) 14.5, [place] % (Auto) 5.0, Eos % (Auto) 1.0, Baso % (Auto) 0.3, Neut # (Auto) 9.2 H, Lymph # (Auto) 1.7, [place] # (Auto) 0.6, Eos # (Auto) 0.1, Baso # (Auto) 0.0, Sodium 139, Potassium 4.1, Chloride 114 H, Carbon Dioxide 20 L, Anion Gap 9.1, BUN 23 H, Creatinine 0.70, Estimated Creat Clear 43, Estimated GFR 81, Est GFR ( Amer) 98, Glucose 98, Calcium 6.7 L, Total Bilirubin 0.9, AST 57 H D, ALT 42, Alkaline Phosphatase 100, Total Protein 5.0 L, Albumin 2.4 L, Globulin 2.6, Albumin/Globulin Ratio 0.9 L, Procalcitonin 0.778 I & O for Last 24 hours: Intake & Output 03/17/24 03/18/24 03/19/24 03/20/24 11:59 11:59 11:59 11:59 Intake Total 2624 / 2624 522 / 522 1260 / 1260 790 / 790 Output Total 5615 / 5615 1090 / 1090 0 / 0 0 / 0 Balance -2991 / -2991 -568 / -568 1260 / 1260 790 / 790 Weight 111 lb 12.8 oz 113 lb 9.6 oz 111 lb 15.917 oz 125 lb 11.2 oz Microbiology Reports for the Last 24 Hours: Microbiology 03/13/24 08:39 Blood - Final 03/13/24 08:39 Blood - Final 03/16/24 06:40 Blood Blood Culture - Preliminary NO GROWTH AFTER 4 DAYS 03/16/24 06:40 Blood Blood Culture - Preliminary NO GROWTH AFTER 4 DAYS 03/16/24 22:12 Blood Blood Culture - Preliminary NO GROWTH AFTER 48 HOURS 03/16/24 22:12 Blood Blood Culture - Preliminary NO GROWTH AFTER 48 HOURS Constitutional Constitutional: no acute distress *Routine Respiratory Exam Respiratory: Absent respiratory distress *Routine Abdominal Exam Comments: Incision healing without evidence of infection. Thin feculent fluid within ostomy bag. Progress Note: A&P Assessment and plan (1) Rupture of colon: Status: Acute (2) Stercoral colitis: Status: Acute Assessment and Plan Assessment and Plan for All Diagnoses:: Overall, doing fairly well postoperative day 7 status post exploratory laparotomy, partial sigmoid colectomy, and end colostomy. Increased volume of feculent fluid within ostomy bag noted over the last 12 hours Continue IV antibiotics for now Continue PT/OT (ambulation) Continue management as per primary service/cardiology
[2024-03-20] MEDS: METOPROLOL SUCCINATE XL 50MG TABLET 50 MG PO (09:13)
[2024-03-20] MEDS: CALCIUM GLUC IN NACL, ISO-OSM 2 GM/100 ML BAG IV (09:13)
[2024-03-20] MEDS: CARVEDILOL 25MG TABLET 25 MG PO ×2 (09:13→20:55)
[2024-03-20 09:31] LABS: Cholesterol 99 mg/dl (140-200); HDL Cholesterol 8 mg/dl (40-60); Triglycerides 218 mg/dl (30-150); VLDL Cholesterol 44 mg/dL (0-40)
[2024-03-20 09:32] LABS: Chol/HDL Ratio 12.4 (1-3.5)
[2024-03-20 09:42] LABS: Direct LDL Cholesterol 57.43 mg/dL (100-129)
--- NOTE | 2024-03-20 10:59 | EXP.PULM.PN ---
Subjective *Date: 03/21/24 *Time: 12:16 Interval history: No acute respiratory vents overnight. Patient admits continued improvement in her respiratory symptoms. Pulmonology Exam Inpatient Vital signs and Labs for Last 24 Hours: Temp Pulse Resp BP Pulse Ox O2 Del Method O2 Flow Rate 98.6 F 97 H 16 133/69 94 L Nasal Cannula 2 03/20/24 08:00 03/20/24 08:00 03/20/24 08:00 03/20/24 08:00 03/20/24 08:00 03/20/24 09:42 03/20/24 09:42 FiO2 92 03/13/24 18:30 Laboratory Results - last 24 hr 03/13/24 08:44: Blood Type A Positive, Antibody Screen Negative, Crossmatch (AHG) See Detail 03/20/24 06:54: WBC 11.7 H D, RBC 3.43 L, Hgb 8.9 L, Hct 27.6 L, MCV 80.5 L, MCH 25.9 L, MCHC 32.2, RDW 18.5 H, Plt Count 288, MPV 9.9, Neut % (Auto) 78.2, Lymph % (Auto) 14.5, [place] % (Auto) 5.0, Eos % (Auto) 1.0, Baso % (Auto) 0.3, Neut # (Auto) 9.2 H, Lymph # (Auto) 1.7, [place] # (Auto) 0.6, Eos # (Auto) 0.1, Baso # (Auto) 0.0, Sodium 139, Potassium 4.1, Chloride 114 H, Carbon Dioxide 20 L, Anion Gap 9.1, BUN 23 H, Creatinine 0.70, Estimated Creat Clear 43, Estimated GFR 81, Est GFR ( Amer) 98, Glucose 98, Calcium 6.7 L, Total Bilirubin 0.9, AST 57 H D, ALT 42, Alkaline Phosphatase 100, Total Protein 5.0 L, Albumin 2.4 L, Globulin 2.6, Albumin/Globulin Ratio 0.9 L, Triglycerides 218 H, Cholesterol 99 L, LDL Cholesterol Direct 57.43 L, VLDL Cholesterol 44 H, HDL Cholesterol 8 L, Cholesterol/HDL Ratio 12.4 H, Procalcitonin 0.778 Temp Pulse Resp BP Pulse Ox O2 Del Method O2 Flow Rate 98.1 F 102 H 16 124/64 95 Nasal Cannula 2 03/19/24 04:00 03/19/24 09:24 03/19/24 04:00 03/19/24 04:00 03/19/24 04:00 03/19/24 07:00 03/19/24 07:00 FiO2 92 03/13/24 18:30 Laboratory Results - last 24 hr 03/16/24 08:00: Crossmatch (AHG) See Detail 03/19/24 06:47: WBC 8.5, RBC 3.56 L, Hgb 9.2 L, Hct 28.2 L, MCV 79.2 L, MCH 25.8 L, MCHC 32.6, RDW 18.4 H, Plt Count 234, MPV 9.7, Neut % (Auto) 70.1, Lymph % (Auto) 20.5, [place] % (Auto) 7.2, Eos % (Auto) 0.7, Baso % (Auto) 0.2, Neut # (Auto) 6.0, Lymph # (Auto) 1.8, [place] # (Auto) 0.6, Eos # (Auto) 0.1, Baso # (Auto) 0.0, Sodium 141, Potassium 4.6 D, Chloride 117 H, Carbon Dioxide 21 L, Anion Gap 7.6, BUN 20 H, Creatinine 0.80, Estimated Creat Clear 38, Estimated GFR 70, Est GFR ( Amer) 84, Glucose 105 H D, Calcium 6.5 L, Total Bilirubin 1.1, AST 44 H, ALT 38, Alkaline Phosphatase 90, Total Protein 4.7 L, Albumin 2.4 L, Globulin 2.3, Albumin/Globulin Ratio 1.0 L, Procalcitonin 1.30 I & O for Labs for Last 24 Hours: Intake & Output 03/17/24 03/18/24 03/19/24 03/20/24 23:59 23:59 23:59 23:59 Intake Total 971 / 971 1170 / 1170 770 / 1120 350 / 350 Output Total 3805 / 3805 575 / 575 0 / 0 0 / 0 Balance -2834 / -2834 595 / 595 770 / 1120 350 / 350 Weight 111 lb 12.8 oz 113 lb 9.6 oz 111 lb 15.917 oz 125 lb 11.2 oz Intake & Output 03/16/24 03/17/24 03/18/24 03/19/24 23:59 23:59 23:59 23:59 Intake Total 2285 / 2285 971 / 971 1170 / 1170 Output Total 5485 / 5585 3805 / 3805 575 / 575 Balance -3200 / -3300 -2834 / -2834 595 / 595 Weight 135 lb 0.001 oz 111 lb 12.8 oz 113 lb 9.6 oz 111 lb 15.917 oz Microbiology Reports for the Last 24 Hours: Microbiology 03/13/24 08:39 Blood - Final 03/13/24 08:39 Blood - Final 03/16/24 06:40 Blood Blood Culture - Preliminary NO GROWTH AFTER 4 DAYS 03/16/24 06:40 Blood Blood Culture - Preliminary NO GROWTH AFTER 4 DAYS 03/16/24 22:12 Blood Blood Culture - Preliminary NO GROWTH AFTER 48 HOURS 03/16/24 22:12 Blood Blood Culture - Preliminary NO GROWTH AFTER 48 HOURS Microbiology 03/16/24 22:12 Blood Blood Culture - Preliminary NO GROWTH AFTER 48 HOURS 03/16/24 22:12 Blood Blood Culture - Preliminary NO GROWTH AFTER 48 HOURS 03/16/24 06:40 Blood Blood Culture - Preliminary NO GROWTH AFTER 48 HOURS 03/16/24 06:40 Blood Blood Culture - Preliminary NO GROWTH AFTER 48 HOURS Constitutional: Present severe distress Head: Present normocephalic and atraumatic ENT: Present normal exam, normal oropharynx and mucous membranes moist Neck: Present normal inspection and full ROM Respiratory: Present diminished air movement and able to speak in complete sentences; Absent prolonged expiratory phase, respiratory distress or wheezes Cardiac: Present S1/S2, Tachycardia and radial pulses present GI: Present soft and distention Rectal (female): Present deferred (female): Present deferred Skin: Present intact; Absent cyanosis or jaundice Neuro: Present alert, awake and oriented x 3 Extremities: Present normal inspection; Absent clubbing or cyanosis Psychiatric: Present normal affect and cooperative Assessment and Plan *Assessment and plan (1) Pleural effusion, bilateral: Status: Acute Category: Medical Code(s): J90 - Pleural effusion, not elsewhere classified (2) Atelectasis of both lungs: Status: Acute Category: Medical Code(s): J98.11 - Atelectasis (3) Pneumonia: Status: Acute Category: Medical Code(s): J18.9 - Pneumonia, unspecified organism Plan Ms. Szymanski is a 78-year-old male no baseline respiratory complaints presented to the ER bowel perforation s/p surgery mental needed to have improving oxygen carbon send CT showed bilateral lower lobe airspace disease/atelectasis and effusions, initiated treatment for hospital-acquired pneumonia and pulmonary was called for further evaluation and management. CT abdomen from admission no effusion/atelectatic changes were subsequent CT chest and abdomen showed bilateral pleural effusions mild to moderate along with bilateral lower lobe likely atelectasis Blood cultures negative so far. Nasal MRSA PCR negative. Currently receiving meropenem as per surgery recommendations. On initial examination patient appeared to be in moderate respiratory distress. Interval update: No acute respiratory events overnight. Currently on levofloxacin. Weaned to room air. Significant improvement in her respiratory distress. Improving leukocytosis Plan: Incentive spirometry. Advised to be more compliant. PT OT as tolerated Continue oxygen supplementation. On 2 L saturating 91%. Will follow. No need for thoracentesis of the noted effusions. Receiving diuretics. Will monitor clinically. Thank you for involving pulmonary in this patient care. Will continue to follow.
--- NOTE | 2024-03-20 11:31 | P.PN_ITS ---
Subjective Subjective Date: 03/20/24 Time: 09:00 Principal diagnosis: Post op colostomy, abnormal echo Interval history: This is a 78-year-old white female who underwent colostomy due to a perforated bowel. The patient had an abnormal echocardiogram showed an ejection fraction of 70% with hypokinesis of the LV apex and elevated troponin on this admission. The patient is scheduled to undergo a left cardiac catheterization this morning. She denies any chest pain or pressure. She states that she does have some shortness of breath with exertion. This is improving. She denies any lower extremity edema. She denies any fever, chills, nausea, vomiting, diarrhea, PND or orthopnea. She does have some abdominal pain status post colostomy but she states that this is improving as well. Exam Data for Last 24 hours Vital signs and Labs for Last 24 Hours: Temp Pulse Resp BP Pulse Ox O2 Del Method O2 Flow Rate 98.6 F 97 H 16 133/69 94 L Nasal Cannula 2 03/20/24 08:00 03/20/24 08:00 03/20/24 08:00 03/20/24 08:00 03/20/24 08:00 03/20/24 09:42 03/20/24 09:42 FiO2 92 03/13/24 18:30 Laboratory Results - last 24 hr 03/13/24 08:44: Blood Type A Positive, Antibody Screen Negative, Crossmatch (AHG) See Detail 03/20/24 06:54: WBC 11.7 H D, RBC 3.43 L, Hgb 8.9 L, Hct 27.6 L, MCV 80.5 L, MCH 25.9 L, MCHC 32.2, RDW 18.5 H, Plt Count 288, MPV 9.9, Neut % (Auto) 78.2, Lymph % (Auto) 14.5, [place] % (Auto) 5.0, Eos % (Auto) 1.0, Baso % (Auto) 0.3, Neut # (Auto) 9.2 H, Lymph # (Auto) 1.7, [place] # (Auto) 0.6, Eos # (Auto) 0.1, Baso # (Auto) 0.0, Sodium 139, Potassium 4.1, Chloride 114 H, Carbon Dioxide 20 L, Anion Gap 9.1, BUN 23 H, Creatinine 0.70, Estimated Creat Clear 43, Estimated GFR 81, Est GFR ( Amer) 98, Glucose 98, Calcium 6.7 L, Total Bilirubin 0.9, AST 57 H D, ALT 42, Alkaline Phosphatase 100, Total Protein 5.0 L, Albumin 2.4 L, Globulin 2.6, Albumin/Globulin Ratio 0.9 L, Triglycerides 218 H, Cholesterol 99 L, LDL Cholesterol Direct 57.43 L, VLDL Cholesterol 44 H, HDL Cholesterol 8 L, Cholesterol/HDL Ratio 12.4 H, Procalcitonin 0.778 I & O for Last 24 hours: Intake & Output 03/17/24 03/18/24 03/19/24 03/20/24 23:59 23:59 23:59 23:59 Intake Total 971 / 971 1170 / 1170 770 / 1120 350 / 350 Output Total 3805 / 3805 575 / 575 0 / 0 0 / 0 Balance -2834 / -2834 595 / 595 770 / 1120 350 / 350 Weight 111 lb 12.8 oz 113 lb 9.6 oz 111 lb 15.917 oz 125 lb 11.2 oz Microbiology Reports for the Last 24 Hours: Microbiology 03/13/24 08:39 Blood - Final 03/13/24 08:39 Blood - Final 03/16/24 06:40 Blood Blood Culture - Preliminary NO GROWTH AFTER 4 DAYS 03/16/24 06:40 Blood Blood Culture - Preliminary NO GROWTH AFTER 4 DAYS 03/16/24 22:12 Blood Blood Culture - Preliminary NO GROWTH AFTER 48 HOURS 03/16/24 22:12 Blood Blood Culture - Preliminary NO GROWTH AFTER 48 HOURS Constitutional Constitutional: no acute distress *Routine HEENT Exam Head: Present normocephalic and atraumatic *Routine Neck Exam Neck: Present supple and full ROM *Routine Respiratory Exam Respiratory: Present CTA bilaterally; Absent rhonchi or wheezes *Routine Cardiovascular Exam Cardiovascular: Present RRR, Normal S2 and murmur *Routine Abdominal Exam Abdominal: Present soft, normoactive bowel sounds and tenderness *Routine Extremities Exam Extremities: Absent cyanosis, clubbing or edema *Routine Skin Exam Skin: Present intact *Routine Neurological Exam Neurological: Present alert, oriented X3 and CN II-XII intact Routine Psychiatric Exam Psychiatric: Present normal affect Progress Note: A&P Assessment and plan (1) Elevated troponin: Status: Acute (2) Abnormal echocardiogram: Status: Acute (3) PAF (paroxysmal atrial fibrillation): Status: Acute (4) Rupture of colon: Status: Acute (5) Pleural effusion, bilateral: Status: Acute (6) Atelectasis of both lungs: Status: Acute (7) Pneumonia: Status: Acute (8) Sepsis: Status: Acute (9) HLD (hyperlipidemia): Status: Chronic (10) Diastolic dysfunction: Status: Chronic (11) Hypertension: Status: Chronic Assessment and Plan Assessment and Plan for All Diagnoses:: Plan: 1. The patient underwent colostomy due to a perforated bowel secondary to stercoral colitis with septic shock. Will defer to surgery and the hospitalist. 2. The patient did have an elevated troponin consistent with a non-STEMI. She also has an abnormal echocardiogram showing hypokinesis of the LV apex. She is having intermittent shortness of breath which is likely her anginal equivalent. Will plan to proceed with left cardiac catheterization today to evaluate her coronary artery disease due to her abnormal echocardiogram and elevated troponin. 3. The patient and her family have been educated risk and benefits of proceeding with left cardiac catheterization. They verbalized understanding and are agreeable in proceeding with the procedure. 4. The patient will be n.p.o. in preparation for left cardiac catheterization. 5. The patient does have a history of paroxysmal atrial fibrillation. She is currently on digoxin and carvedilol for suppression of the atrial fibrillation. 6. She will resume her Xarelto following left cardiac catheterization for long- term anticoagulation secondary to atrial fibrillation. 7. Her verapamil has been stopped due to constipation and history of stercoral colitis. 8. Her blood pressure is well-controlled. 9. Her LDL goal is less than 55. Her LDL is 57. Continue her statin. 10. Continue aspirin. 11. The patient is being treated for hospital-acquired pneumonia. Will defer to the hospitalist. 12. Further recommendations will be made pending the patient's response to treatment and the results of her left cardiac catheterization today. Thank you for the opportunity to help participate in the care of this patient. All recommendations and orders are per Dr. Dejesus.
[2024-03-20] MEDS: LIDOCAINE 1% 10ML MDV 20 ML IJ (11:38)
[2024-03-20] MEDS: diphenhydrAMINE 50MG/ML VIAL 50 MG IV (11:38)
[2024-03-20] MEDS: HEPARIN 1,000 UNITS/ML 10ML VIAL (CATH LAB) 10000 UNIT IV (11:39)
[2024-03-20] MEDS: VERAPAMIL 2.5MG/ML 2ML VIAL 2.5 MG IV (11:39)
[2024-03-20] MEDS: NITROGLYCERIN 800MCG/8ML SYR (CATH LAB) 800 MCG IA (11:40)
[2024-03-20] MEDS: HEPARIN 1,000 UNITS/500ML NS (CATH LAB) 3000 UNIT IV (11:42)
[2024-03-20] MEDS: 0.9 % SODIUM CHLORIDE 500 ML 25 ML IV (11:43)
[2024-03-20] MEDS: FENTANYL 100MCG/2ML VIAL 25 MCG IV (12:23)
--- NOTE | 2024-03-20 13:20 | PC.NURSE ---
Called into room by PT and patient had undone her right wrist band from rd lab technician. Pressure applied to stop bleeding and charge called into room. Air instilled into radial band of 16 ml. Bleeding stopped and patient cleaned up.
[2024-03-20] MEDS: MEROPENEM 1 GM in 0.9 % SODIUM CHLORIDE 100 ML IV (14:06)
[2024-03-20] MEDS: LEVOFLOXACIN/D5W 750 MG/150 ML 750 MG/150 ML PIGGYBACK 100 MG IV (14:17)
--- NOTE | 2024-03-20 14:38 | PC.NURSE ---
Aox 4, sat's in the 90's on ra, 02-2L PRN, colostomy to abdomen with good output, midline c/d/i, 20g r ua sl, 20g L AC SL, R wrist with band in place from heart cath.
--- NOTE | 2024-03-20 16:07 | PC.NURSE ---
Right radial band removed and non adherent with a tegaderm placed.
[2024-03-20] MEDS: IOPAMIDOL-370 (76%);100ML BOTTLE 50 ML IV (16:09)
--- NOTE | 2024-03-20 18:19 | EXP.ACUTE.PN ---
Subjective *Date: 03/20/24 *Time: 18:19 Interval history: Tolerating p.o. intake. Going for heart cath today. Denies any chest pain. Stable on room air. Having liquid brown stool output Medical Exam Vital signs and Labs for Last 24 Hours: Vital Signs Temp Pulse Pulse Resp BP Pulse Ox O2 Del Method 03/20/24 17:27 Room Air 03/20/24 16:46 Room Air 03/20/24 16:40 97.7 F 82 17 139/75 94 L Room Air 03/20/24 15:40 97.6 F 88 16 139/76 95 Room Air 03/20/24 15:10 97.6 F 83 16 130/77 95 Room Air 03/20/24 14:40 97.6 F 82 16 126/77 95 Room Air 03/20/24 14:10 97.6 F 82 16 130/73 94 L Room Air 03/20/24 13:40 97.6 F 81 16 127/75 94 L Room Air 03/20/24 13:34 Nasal Cannula 03/20/24 13:25 97.6 F 82 16 126/71 95 Room Air 03/20/24 13:10 97.6 F 82 16 128/78 94 L Room Air 03/20/24 12:55 97.6 F 86 16 124/69 92 L Room Air 03/20/24 12:48 Nasal Cannula 03/20/24 12:40 82 16 127/68 93 L Room Air 03/20/24 12:35 82 16 127/68 93 L Room Air 03/20/24 12:30 84 16 126/63 93 L Room Air 03/20/24 12:25 82 16 126/63 92 L Room Air 03/20/24 09:42 Nasal Cannula 03/20/24 09:00 Nasal Cannula 03/20/24 08:00 Nasal Cannula 03/20/24 08:00 98.6 F 97 H 16 133/69 94 L Room Air 03/20/24 06:57 Nasal Cannula 03/20/24 06:07 97 H 20 03/20/24 05:00 Nasal Cannula 03/20/24 04:00 99.4 F 93 H 18 144/74 H 92 L Room Air 03/20/24 03:00 Nasal Cannula 03/20/24 01:00 Nasal Cannula 03/20/24 00:00 99.2 F 88 16 117/52 L 93 L Room Air 03/19/24 23:00 Nasal Cannula 03/19/24 21:00 Nasal Cannula 03/19/24 20:00 Nasal Cannula 03/19/24 20:00 98.4 F 87 18 139/78 98 Nasal Cannula 03/19/24 19:00 Room Air O2 Flow Rate 03/20/24 17:27 03/20/24 16:46 03/20/24 16:40 03/20/24 15:40 03/20/24 15:10 03/20/24 14:40 03/20/24 14:10 03/20/24 13:40 03/20/24 13:34 2 03/20/24 13:25 03/20/24 13:10 03/20/24 12:55 03/20/24 12:48 2 03/20/24 12:40 03/20/24 12:35 03/20/24 12:30 03/20/24 12:25 03/20/24 09:42 2 03/20/24 09:00 2 03/20/24 08:00 2 03/20/24 08:00 03/20/24 06:57 2 03/20/24 06:07 03/20/24 05:00 2 03/20/24 04:00 03/20/24 03:00 2 03/20/24 01:00 2 03/20/24 00:00 03/19/24 23:00 2 03/19/24 21:00 2 03/19/24 20:00 2 03/19/24 20:00 2 03/19/24 19:00 Intake and Output 03/20/24 03/20/24 03/20/24 07:59 15:59 23:59 Intake Total 350 / 350 0 / 350 Output Total 0 / 0 Balance 350 / 350 0 / 350 Intake: Intake, Oral Amount 0 / 0 Intake, Total IV Amount 350 / 350 Doxycycline Hyclate 100 mg In 0 250 / 250 .9 % Sodium Chloride 250 ml @ 166.667 mls/hr IV Q12H [facility] Rx#: [id number] Meropenem 1 gm In 0.9 % Sodium 100 / 100 Chloride 100 ml @ 100 mls/hr IV Q12H [facility] Rx#:[id number] Output: Output, Urine Amount 0 / 0 Other: Number of Unmeasured Voids 1 Number of Bowel Movements 1 Weight 57.017 kg Patient Weight 03/20/24 23:59 Weight 57.017 kg Laboratory Results - last 24 hr 03/13/24 08:44: Blood Type A Positive, Antibody Screen Negative, Crossmatch (AHG) See Detail 03/20/24 06:54: WBC 11.7 H D, RBC 3.43 L, Hgb 8.9 L, Hct 27.6 L, MCV 80.5 L, MCH 25.9 L, MCHC 32.2, RDW 18.5 H, Plt Count 288, MPV 9.9, Neut % (Auto) 78.2, Lymph % (Auto) 14.5, [place] % (Auto) 5.0, Eos % (Auto) 1.0, Baso % (Auto) 0.3, Neut # (Auto) 9.2 H, Lymph # (Auto) 1.7, [place] # (Auto) 0.6, Eos # (Auto) 0.1, Baso # (Auto) 0.0, Sodium 139, Potassium 4.1, Chloride 114 H, Carbon Dioxide 20 L, Anion Gap 9.1, BUN 23 H, Creatinine 0.70, Estimated Creat Clear 43, Estimated GFR 81, Est GFR ( Amer) 98, Glucose 98, Calcium 6.7 L, Total Bilirubin 0.9, AST 57 H D, ALT 42, Alkaline Phosphatase 100, Total Protein 5.0 L, Albumin 2.4 L, Globulin 2.6, Albumin/Globulin Ratio 0.9 L, Triglycerides 218 H, Cholesterol 99 L, LDL Cholesterol Direct 57.43 L, VLDL Cholesterol 44 H, HDL Cholesterol 8 L, Cholesterol/HDL Ratio 12.4 H, Procalcitonin 0.778 I & O for Labs for Last 24 Hours: Intake & Output 03/17/24 03/18/24 03/19/24 03/20/24 23:59 23:59 23:59 23:59 Intake Total 971 / 971 1170 / 1170 770 / 1120 350 / 350 Output Total 3805 / 3805 575 / 575 0 / 0 0 / 0 Balance -2834 / -2834 595 / 595 770 / 1120 350 / 350 Weight 50.712 kg 51.528 kg 50.8 kg 57.017 kg Microbiology Reports for the Last 24 Hours: Microbiology 03/13/24 08:39 Blood - Final 03/13/24 08:39 Blood - Final 03/16/24 06:40 Blood Blood Culture - Preliminary NO GROWTH AFTER 4 DAYS 03/16/24 06:40 Blood Blood Culture - Preliminary NO GROWTH AFTER 4 DAYS Constitutional: Present no acute distress and chronically ill appearing Head: Present atraumatic and normocephalic ENT: Present normal exam Respiratory: Present crackles (Dependent portions) and normal respiratory effort; Absent rhonchi or wheezes Cardiac: Present Regular Rhythm and Tachycardia GI: Present soft, distention, tenderness (Diffuse, nonfocal) and normal bowel sounds Extremities: Present normal inspection and full ROM Skin: Present intact; Absent erythema Neuro: Present Grossly Intact, alert, awake, oriented x 3 and moves all extremities Assessment and Plan *Assessment and plan (1) Sepsis: Status: Acute Category: Medical Code(s): A41.9 - Sepsis, unspecified organism (2) Hospital-acquired pneumonia: Status: Acute Category: Medical Code(s): J18.9 - Pneumonia, unspecified organism; Y95 - Nosocomial condition (3) Rupture of colon: Status: Acute Category: Medical Code(s): K63.1 - Perforation of intestine (nontraumatic) (4) Stercoral colitis: Status: Acute Category: Medical Code(s): K52.89 - Other specified noninfective gastroenteritis and colitis (5) Anemia: Problem Comment: Not sure anemia is related to exclusively vaginal bleeding. She states this is improving. Agree with [employer] F[employer] DEVELOPER for no need for intervention at this point. I am unclear about why patient is on Xarelto. Cardiology notes record atrial fibrillation but I can see no actual A-fib either on a Holter report that I read last year or any EKG recently. Patient states she is on the blood thinner so I do not have a heart attack. This may need to be readdressed with primary family practice office. I do not think her shortness of air is from the anemia and this seems to be perhaps a more chronic problem. I think this would be best worked up as an outpatient, I do not see a need for active transfusion at this point given normal vital signs. Status: Acute Qualifiers: Anemia type: other cause Other causes of anemia: acute posthemorrhagic Qualified Code(s): D62 - Acute posthemorrhagic anemia Category: Medical Code(s): D64.9 - Anemia, unspecified (6) Elevated troponin: Status: Acute Category: Medical Code(s): R79.89 - Other specified abnormal findings of blood chemistry (7) Hypertension: Status: Chronic Qualifiers: Hypertension type: essential hypertension Qualified Code(s): I10 - Essential (primary) hypertension Category: Medical Code(s): I10 - Essential (primary) hypertension (8) Atelectasis of both lungs: Status: Acute Category: Medical Code(s): J98.11 - Atelectasis (9) Microcytic anemia: Status: Acute Category: Medical Code(s): D50.9 - Iron deficiency anemia, unspecified (10) PAF (paroxysmal atrial fibrillation): Status: Acute Category: Medical Code(s): I48.0 - Paroxysmal atrial fibrillation (11) Pleural effusion, bilateral: Status: Acute Category: Medical Code(s): J90 - Pleural effusion, not elsewhere classified (12) Pneumonia: Status: Acute Category: Medical Code(s): J18.9 - Pneumonia, unspecified organism Plan Alesha Szymanski is a 78-year-old female with a medical history significant for A-fib on Xarelto, aortic valve insufficiency, hypertension, GERD who presented with evaluation of abdominal pain. CT abdomen/pelvis revealed sigmoid colon perforation and patient was emergently taken to the OR by Dr. Hurtado s/p partial sigmoid colectomy and end colostomy. During ex lap, patient was noted to have severe colon impaction with surrounding stercoral and ischemic colitis. Patient still has not had meaningful bowel movement. Pulmonology and cardiology assisting with care today along with surgery. Continues to require inpatient management. Problems addressed as follows: #Sigmoid colon perforation #Septic shock #Ischemic colitis #Stercoral colitis, severe fecal impaction ? General Surgery consulted, s/p ex lap 03/13/2024 with partial sigmoid colectomy and end colostomy, and some fecal disimpaction. ? Discussed case with Dr. Hurtado extensively, will treat ischemic/stercoral colitis with IV antibiotics. Tolerating p.o. diet. Continue aggressive bowel regimen. -White count with slight bump today to 11.7. Patient remains afebrile and hemodynamically stable. ? Low residue diet. Aggressive bowel regimen with MiraLAX every 4 hours through today. Having bowel movements. Surgery recommends repeat CT in 1 to 2 weeks. ? oral mineral oil twice daily. ? Repeat CT abdomen/pelvis 03/19/2024 does not show signs of abscess or worsening colitis. Continues to show moderate stool burden. ? Procalcitonin normalized today at 0.77. Repeat CBC, CMP, magnesium ordered for the morning. #Acute hypoxic respiratory failure #Suspected hospital-acquired pneumonia #Bilateral moderate pleural effusions -Stable on room air. Transition to Levaquin 750 mg daily. Plan for 5 days of antibiotics for pulmonary source. Continuing antibiotics as above for potential abdominal source # Elevated troponin #Elevated BNP ? Patient initially looked volume overloaded with sepsis bolus and IV fluids during procedure. Euvolemic at this time. ? BNP increased to 4240. Troponin bumped from 0.05-2.85. EKG without acute ischemic changes. ? ECHO reveals LVEF 70%, hyperdynamic LV function, hypokinetic LV apex. ? Cardiology consulted, taken for heart cath today. Has mid vessel LAD 60% stenosis. Otherwise no significant flow-limiting lesions. Recommend medical management. -Reevaluate need for diuresis daily, no diuretics today. #Hospital-acquired delirium: Seroquel 25 mg nightly. Doing much better with confusion, owning. #Physical deconditioning: PT/OT consulted, continuing to work with patient. Recommend discharge home with home health when medically stable. #Acute on chronic microcytic anemia ? Initial hemoglobin 7.7. Hemoglobin 8.9. No significant signs of bleeding. Significant iron deficiency. ? Given 1 unit PRBC 03/17/2020 in the setting of ischemic colitis. Repeat ferritin is now normal at 105. #Paroxysmal A-fib #Hypertension ? Currently in sinus tachycardia. ? Resume Xarelto in the morning after heart cath. Continue carvedilol 25 mg twice daily. Continue digoxin 62.5 mcg daily. #GERD: Continue home PPI. #Hyperlipidemia: Continue home statin. Full code Holding anticoagulant today, heparinized in Time Cycle Operator Low residue diet
[2024-03-20] MEDS: ACETAMINOPHEN 325MG TAB 650 MG PO (19:51)
[2024-03-20] MEDS: FAMOTIDINE 20MG TABLET 20 MG PO (20:55)
[2024-03-20] MEDS: QUETIAPINE 25MG TABLET 25 MG PO (20:55)
[2024-03-21 00:20] VITALS: BP 94/44; PULSE 84; RESP 16; TEMP 37.2; O2SAT 94
[2024-03-21 04:00] VITALS: BMI 26.9
[2024-03-21 04:10] VITALS: BP 144/70; PULSE 84; RESP 17; TEMP 37; O2SAT 91
--- NOTE | 2024-03-21 05:11 | PC.NURSE ---
Patient has had a decent night and been able to sleep off and on. Earlier in the shift she complained of abdominal pain but it was controlled well with tylenol. She did eat a good portion of her dinner and had a sandwich later on. Her colostomy bag and dressing had to be changed at the beginning of the shift due to major leaking and the dressing were saturated with stool. Patient and incision site were cleaned and a new dressing and colostomy bag were reapplied and it has not leaked since. Patient is ready to go home and expresses that she is ready to leave this place. no other complaints.
--- NOTE | 2024-03-21 06:37 | P.PN_ITS ---
Subjective Patient reports: no new complaints and feels better Narrative: The patient is sitting in a chair and has somewhat more responsive this a.m. Exam Data for Last 24 hours Vital signs and Labs for Last 24 Hours: Temp Pulse Resp BP Pulse Ox O2 Del Method O2 Flow Rate 98.6 F 84 17 144/70 H 91 L Room Air 2 03/21/24 04:10 03/21/24 04:10 03/21/24 04:10 03/21/24 04:10 03/21/24 04:10 03/21/24 05:00 03/20/24 19:40 FiO2 92 03/13/24 18:30 Laboratory Results - last 24 hr 03/13/24 08:44: Blood Type A Positive, Antibody Screen Negative, Crossmatch ([facility]) See Detail 03/20/24 06:54: WBC 11.7 H D, RBC 3.43 L, Hgb 8.9 L, Hct 27.6 L, MCV 80.5 L, MCH 25.9 L, MCHC 32.2, RDW 18.5 H, Plt Count 288, MPV 9.9, Neut % (Auto) 78.2, Lymph % (Auto) 14.5, [place] % (Auto) 5.0, Eos % (Auto) 1.0, Baso % (Auto) 0.3, Neut # (Auto) 9.2 H, Lymph # (Auto) 1.7, [place] # (Auto) 0.6, Eos # (Auto) 0.1, Baso # (Auto) 0.0, Sodium 139, Potassium 4.1, Chloride 114 H, Carbon Dioxide 20 L, Anion Gap 9.1, BUN 23 H, Creatinine 0.70, Estimated Creat Clear 43, Estimated GFR 81, Est GFR ( Amer) 98, Glucose 98, Calcium 6.7 L, Total Bilirubin 0.9, AST 57 H D, ALT 42, Alkaline Phosphatase 100, Total Protein 5.0 L, Albumin 2.4 L, Globulin 2.6, Albumin/Globulin Ratio 0.9 L, Triglycerides 218 H, Cholesterol 99 L, LDL Cholesterol Direct 57.43 L, VLDL Cholesterol 44 H, HDL Cholesterol 8 L, Cholesterol/HDL Ratio 12.4 H, Procalcitonin 0.778 I & O for Last 24 hours: Intake & Output 03/18/24 03/19/24 03/20/24 01/09/25 11:59 11:59 11:59 11:59 Intake Total 522 / 522 1260 / 1260 790 / 790 270 / 270 Output Total 1090 / 1090 0 / 0 0 / 0 0 / 0 Balance -568 / -568 1260 / 1260 790 / 790 270 / 270 Weight 113 lb 9.6 oz 111 lb 15.917 oz 125 lb 11.2 oz 125 lb 1.6 oz Microbiology Reports for the Last 24 Hours: Microbiology 03/13/24 08:39 Blood - Final 03/13/24 08:39 Blood - Final 03/16/24 06:40 Blood Blood Culture - Preliminary NO GROWTH AFTER 4 DAYS 03/16/24 06:40 Blood Blood Culture - Preliminary NO GROWTH AFTER 4 DAYS Constitutional Constitutional: no acute distress *Routine Respiratory Exam Respiratory: Absent respiratory distress *Routine Abdominal Exam Abdominal: Present soft Comments: Air/stool in bag. Ostomy pink/viable. Progress Note: A&P Assessment and plan (1) Rupture of colon: Status: Acute (2) Stercoral colitis: Status: Acute Assessment and Plan Assessment and Plan for All Diagnoses:: Overall, doing fairly well postoperative day 8 status post exploratory laparotomy, partial sigmoid colectomy, and end colostomy. Continued air/feculent fluid within ostomy bag noted over the last 24 hours Continue antibiotics for now Continue PT/OT (ambulation) Continue management as per primary service/cardiology Discharge planning as per primary service
[2024-03-21 07:28] LABS: Basophils % 0.1 % (0.1-2.0); Eosinophils # 0.1 K/mm3 (0.0-0.4); Eosinophils % 1.4 % (0.1-12.0); Hematocrit 28.8 % (37.0-47.0); Hemoglobin 9.4 g/dL (12.2-16.2); Lymphocytes # 1.3 K/mm3 (0.7-4.5); Lymphocytes % 14.9 % (10-50); Mean Corpuscular HGB Conc 32.6 g/dL (31.8-35.4); Mean Corpuscular Hemoglobin 26.3 pg (27.0-31.2); Mean Corpuscular Volume 80.4 fl (81-99); Mean Platelet Volume 10.3 fl (7.4-10.4); Monocytes # 0.4 K/mm3 (0.1-1.0); Monocytes % 4.8 % (1.7-9.3); Neutrophils # 6.9 K/mm3 (1.8-7.8); Platelet Count 349 K/mm3 (142-424); Red Blood Count 3.58 M/mm3 (4.20-5.40); Red Cell Distribution Width 19.3 % (11.5-17.5); White Blood Count 8.8 K/mm3 (4.8-10.8)
[2024-03-21 07:39] LABS: Alanine Aminotransferase 51 U/L (12-78); Albumin Level 2.4 g/dl (3.5-5.0); Albumin/Globulin Ratio 0.9 (1.1-1.8); Alkaline Phosphatase 94 U/L (38-126); Anion Gap 10.6 mEq/L (5-15); Aspartate Amino Transferase 66 U/L (14-36); Bilirubin,Total 0.7 mg/dl (0.2-1.3); Blood Urea Nitrogen 20 mg/dl (7-17); Calcium 7.2 mg/dl (8.4-10.2); Carbon Dioxide 20 mmol/L (22.0-30.0); Chloride 111 mmol/L (98-107); Creatinine Clearance Estimated 43 mL/min (50-200); Estimated Glomerular Filt Rate 70 ml/min (>60); GFR (African American) 84 ML/MIN (>60); Globulin 2.6 g/dL (1.3-3.2); Glucose 142 mg/dl (74-100); Potassium 3.6 mmoL/L (3.5-5.1); Sodium 138 mmol/L (136-145)
[2024-03-21 08:00] VITALS: BP 143/68; PULSE 80; RESP 16; TEMP 36.6; O2SAT 95
[2024-03-21 09:28] VITALS: PULSE 80
[2024-03-21] MEDS: ASPIRIN EC 81MG TABLET 81 MG PO (09:28)
[2024-03-21] MEDS: DIGOXIN 0.125MG TABLET 62.5 MCG PO (09:28)
[2024-03-21] MEDS: CARVEDILOL 25MG TABLET 25 MG PO ×2 (09:28→18:24)
[2024-03-21] MEDS: METOPROLOL SUCCINATE XL 50MG TABLET 50 MG PO (09:28)
--- NOTE | 2024-03-21 09:51 | DIET.NUTRFU ---
Saw patient today, plans to discharge. Patient was up in chair and eager to leave. She has reviewed handout on diet recommendations and has good understanding on bag maintenance. She is independent at home with groceries and cooking. RD encouraged to increase protein intake during recovery to help with strength. Provided contact information for any needs upon discharge
[2024-03-21 12:00] VITALS: BP 156/78; PULSE 87; RESP 18; TEMP 36.5; O2SAT 94
--- NOTE | 2024-03-21 12:28 | P.PN_ITS ---
Subjective Subjective Date: 03/21/24 Time: 10:30 Principal diagnosis: Post op colostomy, abnormal echo Interval history: This is a 78-year-old white female who underwent colostomy due to a perforated bowel. She also underwent left cardiac catheterization yesterday due to an abnormal echocardiogram and elevated troponin on admission. Left cardiac catheterization showed mid LAD disease which is best managed medically. She also had some other mild diffuse nonocclusive coronary artery disease. She likely had a type II non-STEMI. This morning she denies any chest pain or pressure. She denies any shortness of breath or edema. She denies any fever, chills, nausea, vomiting, diarrhea, PND orthopnea. She does have some abdominal tenderness and discomfort from her recent colostomy but states that overall she feels well. Exam Data for Last 24 hours Vital signs and Labs for Last 24 Hours: Temp Pulse Resp BP Pulse Ox O2 Del Method O2 Flow Rate 97.9 F 80 16 143/68 H 95 Room Air 2 03/21/24 08:00 03/21/24 09:28 03/21/24 08:00 03/21/24 08:00 03/21/24 08:00 03/21/24 08:00 03/20/24 19:40 FiO2 92 03/13/24 18:30 Laboratory Results - last 24 hr 03/21/24 07:12: WBC 8.8, RBC 3.58 L, Hgb 9.4 L, Hct 28.8 L, MCV 80.4 L, MCH 26.3 L, MCHC 32.6, RDW 19.3 H, Plt Count 349, MPV 10.3, Neut % (Auto) 78.0, Lymph % (Auto) 14.9, [place] % (Auto) 4.8, Eos % (Auto) 1.4, Baso % (Auto) 0.1, Neut # (Auto) 6.9, Lymph # (Auto) 1.3, [place] # (Auto) 0.4, Eos # (Auto) 0.1, Baso # (Auto) 0.0, Sodium 138, Potassium 3.6, Chloride 111 H, Carbon Dioxide 20 L, Anion Gap 10.6, BUN 20 H, Creatinine 0.80, Estimated Creat Clear 43, Estimated GFR 70, Est GFR ( Amer) 84, Glucose 142 H, Calcium 7.2 L, Total Bilirubin 0.7, AST 66 H, ALT 51, Alkaline Phosphatase 94, Total Protein 5.0 L, Albumin 2.4 L, Globulin 2.6, Albumin/Globulin Ratio 0.9 L, Procalcitonin 0.490 I & O for Last 24 hours: Intake & Output 03/18/24 03/19/24 03/20/24 03/21/24 23:59 23:59 23:59 23:59 Intake Total 1170 / 1170 770 / 1120 620 / 620 360 / 360 Output Total 575 / 575 0 / 0 0 / 0 0 / 0 Balance 595 / 595 770 / 1120 620 / 620 360 / 360 Weight 113 lb 9.6 oz 111 lb 15.917 oz 125 lb 11.2 oz 125 lb 1.6 oz Microbiology Reports for the Last 24 Hours: Microbiology 03/16/24 22:12 Blood Blood Culture - Preliminary NO GROWTH AFTER 4 DAYS 03/16/24 22:12 Blood Blood Culture - Preliminary NO GROWTH AFTER 4 DAYS 03/16/24 06:40 Blood Blood Culture - Final NO GROWTH AFTER 5 DAYS 03/16/24 06:40 Blood Blood Culture - Final NO GROWTH AFTER 5 DAYS 03/13/24 08:39 Blood - Final 03/13/24 08:39 Blood - Final Constitutional Constitutional: no acute distress *Routine HEENT Exam Head: Present normocephalic and atraumatic *Routine Neck Exam Neck: Present supple and full ROM *Routine Respiratory Exam Respiratory: Present CTA bilaterally; Absent rhonchi or wheezes *Routine Cardiovascular Exam Cardiovascular: Present RRR, Normal S2 and murmur *Routine Abdominal Exam Abdominal: Present soft, normoactive bowel sounds and tenderness *Routine Extremities Exam Extremities: Absent cyanosis, clubbing or edema *Routine Skin Exam Skin: Present intact *Routine Neurological Exam Neurological: Present alert, oriented X3 and CN II-XII intact Routine Psychiatric Exam Psychiatric: Present normal affect Progress Note: A&P Assessment and plan (1) Pleural effusion, bilateral: Status: Acute (2) Atelectasis of both lungs: Status: Acute (3) Pneumonia: Status: Acute (4) Coronary artery disease: Status: Acute (5) PAF (paroxysmal atrial fibrillation): Status: Acute (6) Hypertension: Status: Chronic (7) Diastolic dysfunction: Status: Chronic (8) HLD (hyperlipidemia): Status: Chronic (9) Abnormal echocardiogram: Status: Acute (10) Elevated troponin: Status: Acute Assessment and Plan Assessment and Plan for All Diagnoses:: Plan: 1. The patient underwent colostomy due to a perforated bowel secondary to stercoral colitis with septic shock. Will defer to surgery and the hospitalist. 2. The patient did have an elevated troponin consistent with a non-STEMI. She also has an abnormal echocardiogram showing hypokinesis of the LV apex. She underwent left cardiac catheterization yesterday and was found to have patent coronary artery disease and no intervention was required. We do recommend aspirin 81 mg daily. 3. The patient does have a history of paroxysmal atrial fibrillation. She is currently on digoxin and carvedilol for suppression of the atrial fibrillation. 4. She is on Xarelto for long-term anticoagulation. 5. Her verapamil has been stopped due to constipation and history of stercoral colitis. 6. Her blood pressure is well-controlled. 7. Her LDL goal is less than 55. Her LDL is 57. Continue her statin. 8. The patient is being treated for hospital-acquired pneumonia. Will defer to the hospitalist. 9. No further recommendations at this time from a cardiac standpoint. Once the patient is discharged from the hospital she can follow-up in cardiology clinic in 1 to 2 weeks. Once she is stable for discharge she can be discharged on the following cardiac medications: Aspirin 81 mg daily, carvedilol 25 mg p.o. twice daily, digoxin 0.125 mg p.o. daily,, Xarelto 15 mg daily, Zocor 40 mg p.o. n ightly Thank you for the opportunity to help participate in the care of this patient. All recommendations and orders are per Dr. Dejesus.
--- NOTE | 2024-03-21 13:46 | HMH.PTEV ---
Physical Therapy Evaluation Rehab PT IP Evaluation Start: 03/14/24 06:36 Freq: ONCE Status: Active Protocol: Document 03/14/24 08:49 PATEL (Rec: 03/14/24 08:57 PATEL [id number]) Subjective/History History History Per H&P: Alesha Szymanski is a 78- year-old female with a medical history significant for A-fib on Xarelto, aortic valve insufficiency, hypertension, GERD who presented with evaluation of abdominal pain. CT abdomen/pelvis revealed sigmoid colon perforation and patient was emergently taken to the OR by Dr. Hurtado s/p partial sigmoid colectomy and end colostomy. During ex lap, patient was noted to have severe colon impaction with surrounding stercoral and ischemic colitis. Patient was recently started on iron supplementation which probably exacerbated underlying constipation. Upon my evaluation, patient was comfortably laying in bed coming out of sedation. She noted some abdominal pain, but improved since presentation. Subjective Subjective Pt lives home alone (In the basement of her daughter's home) and is usually IND with mobility. Pt has daughter's who work in healthcare that plan to rotate care to provide 24/7 care for pt. Family reports that pt is usually IND , active, and assists in providing some childcare to grandchildren. New diagnosis of cancer in past 12 No months? Rehab PT IP Eval Objective Appearance Patient Behavior Appropriate,Cooperative Difficulty following instructions none Ambulation Patient Able to Ambulate No Balance Ability to Arise Able, uses arms to help Sitting Balance Steady, safe Standing Balance Steady, wide stance Transfers Bed Transfer Ability Minimal x 1 (25% assist) Sit to Stand Bed Transfer Ability Minimal x 1 (25% assist) Rehab PT IP prob,goals,plan Problems Date of Evaluation: 03/14/24 PT IP Problems Bed Mobility,Transfers,Gait, Balance Rehab Potential Rehab Potential Good Plan PT Intervention Plan Bed Mobility,Transfers,Gait, Balance,Safety,Therapeutic Exercise Other Intervention Plan 1-2 times PT Plan Frequency Daily Duration LOS Discharge Goals Bed Transfer Ability Independent Sit to Stand Chair Transfer Ability Contact Guard/Hand Hold Ambulation Assistive Device Rolling Walker Ambulation Distance (feet) 10 Discharge Plan PT Discharge Plan Pt presents below baseline in functional mobility. Pt and family with plan to have pt return to daughter's home. Family will provide 24/7 care. PT recommending PT services to address deficits. If pt's family's plans change and family is unable to provide care, pt would benefit from rehab d/t current level of mobility. Pt would benefit from skilled acute care PT while at [facility] to prevent functional decline and address deficits. Eval Complexity Eval Charge Codes 83073 - Moderate Complexity PHYSICIAN CERTIFICATION: I certify the specified therapy services for Alesha Szymanski are required, authorized, and reviewed every 30 days.
--- NOTE | 2024-03-21 18:04 | P.DS_ITS ---
General Admission date:: 03/13/24 Discharge date: 03/21/24 HPI HPI HPI: Alesha Szymanski is a 78-year-old female with a medical history significant for A-fib on Xarelto, aortic valve insufficiency, hypertension, GERD who presented with evaluation of abdominal pain. CT abdomen/pelvis revealed sigmoid colon perforation and patient was emergently taken to the OR by Dr. Hurtado s/p partial sigmoid colectomy and end colostomy. During ex lap, patient was noted to have severe colon impaction with surrounding stercoral and ischemic colitis. Patient was recently started on iron supplementation which probably exacerbated underlying constipation. Upon my evaluation, patient was comfortably laying in bed coming out of sedation. She noted some abdominal pain, but improved since presentation. Hospital Course Hospital Course Hospital Course: Alesha Szymanski is a 78-year-old female with a medical history significant for A-fib on Xarelto, aortic valve insufficiency, hypertension, GERD who presented with evaluation of abdominal pain. CT abdomen/pelvis revealed sigmoid colon perforation and patient was emergently taken to the OR by Dr. Hurtado s/p partial sigmoid colectomy and end colostomy. During ex lap, patient was noted to have severe colon impaction with surrounding stercoral and ischemic colitis. Initiated on aggressive bowel regimen. Having improvement in output. Tolerating antibiotics. Weaned to room air. Stable to discharge home with family. Has nursing help at home as she has family members that are nurses who will look after her. Follow-up with surgery and pulmonology as an outpatient. Problems addressed as follows: #Sigmoid colon perforation #Septic shock #Ischemic colitis #Stercoral colitis, severe fecal impaction ? General Surgery consulted, s/p ex lap 03/13/2024 with partial sigmoid colectomy and end colostomy, and some fecal disimpaction. Surgery recommend treating ischemic/stercoral colitis with antibiotics. Treated with 10 days of antibiotics. Initiated on aggressive bowel regimen. Had increase in stool output. White count showed improvement, normalized 8.8 by day of discharge. Patient tolerating p.o. intake without difficulty. Inflammatory markers improved, procalcitonin normalized to 0.49. Patient overall did well. Family came to evaluate patient on the , were concerned about patient's anxiety and mental state. Requested that she go home if she was stable. Agreed to discharge patient late in the afternoon and into the care of family given her significant improvement, stability on room air, normalization of labs. Counseled on the need to follow-up. Patient stated understanding. Complete antibiotic course with 3 more days of Levaquin. Continue low residue diet #Acute hypoxic respiratory failure #Suspected hospital-acquired pneumonia #Bilateral moderate pleural effusions -Initially requiring oxygen. Concern for pneumonia on imaging. Antibiotics were transitioned to Levaquin to complete treatment for pneumonia and infection above. Pulmonology assisted with care. Follow-up as an outpatient. # Elevated troponin #Elevated BNP ? Patient initially looked volume overloaded with sepsis bolus and IV fluids during procedure. Had improvement in volume status. BNP was elevated at 4200. Bump in troponin. EKG did not show ischemic changes. ECHO reveals LVEF 70%, hyperdynamic LV function, hypokinetic LV apex. Cardiology consulted, taken for heart cath with mid vessel LAD 60% stenosis. Otherwise no significant flow- limiting lesions. Recommend medical management. Continue comanagement with aspirin 81 daily, carvedilol 25 mg twice daily, digoxin 125 mcg daily and losartan 50 mg daily #Hospital-acquired delirium: Seroquel 25 mg nightly. Responded well with improvement in mentation. Will continue Seroquel at discharge and counseled family on discontinuing if improved mentation after being home for a few days. Patient states understanding. Granddaughter who is caring for patient is a nurse and feels comfortable adjusting/weaning dose if needed. #Physical deconditioning: PT/OT consulted, continuing to work with patient. Recommend discharge home with home health when medically stable. #Acute on chronic microcytic anemia ? Initial hemoglobin 7.7. Improved during admission. No significant bleeding. 9.4 on day of discharge. Significant iron deficiency. Did receive 1 unit packed red blood cells on 03/17/2024 in the setting of her ischemic colitis. #Paroxysmal A-fib #Hypertension ? Resume Xarelto in the morning after heart cath. Continue carvedilol 25 mg twice daily. Continue digoxin 125 mcg daily. #GERD: Continue home PPI. #Hyperlipidemia: Continue home statin. Total time spent on discharge 32 minutes in counseling, documentation, chart review, and direct care with patient. Exam Data for Last 24 hours Vital signs and Labs for Last 24 Hours: Temp Pulse Resp BP Pulse Ox O2 Del Method O2 Flow Rate 98.1 F 102 H 16 124/64 95 Nasal Cannula 2 03/19/24 04:00 03/19/24 04:00 03/19/24 04:00 03/19/24 04:00 03/19/24 04:00 03/19/24 07:00 03/19/24 07:00 FiO2 92 03/13/24 18:30 Laboratory Results - last 24 hr 03/18/24 07:10: WBC 7.1 D, RBC 3.56 L, Hgb 9.2 L, Hct 28.2 L, MCV 79.2 L, MCH 25.8 L, MCHC 32.6, RDW 18.2 H, Plt Count 231, MPV 9.5, Neut % (Auto) 67.2, Lymph % (Auto) 20.7, [place] % (Auto) 10.1 H, Eos % (Auto) 0.8, Baso % (Auto) 0.1, Neut # (Auto) 4.8, Lymph # (Auto) 1.5, [place] # (Auto) 0.7, Eos # (Auto) 0.1, Baso # (Auto) 0.0, Sodium 148 H, Potassium 3.1 L, Chloride 118 H, Carbon Dioxide 26, Anion Gap 7.1, BUN 19 H, Creatinine 0.70 D, Estimated Creat Clear 39, Estimated GFR 81, Est GFR ( Amer) 98 D, Glucose 134 H, Calcium 6.9 L, Magnesium 2.1, Total Bilirubin 1.1, AST 54 H D, ALT 41, Alkaline Phosphatase 81, Total Protein 5.3 L, Albumin 2.6 L, Globulin 2.7, Albumin/Globulin Ratio 1.0 L 03/19/24 06:47: WBC 8.5, RBC 3.56 L, Hgb 9.2 L, Hct 28.2 L, MCV 79.2 L, MCH 25.8 L, MCHC 32.6, RDW 18.4 H, Plt Count 234, MPV 9.7, Neut % (Auto) 70.1, Lymph % (Auto) 20.5, [place] % (Auto) 7.2, Eos % (Auto) 0.7, Baso % (Auto) 0.2, Neut # (Auto) 6.0, Lymph # (Auto) 1.8, [place] # (Auto) 0.6, Eos # (Auto) 0.1, Baso # (Auto) 0.0, Sodium 141, Potassium 4.6 D, Chloride 117 H, Carbon Dioxide 21 L, Anion Gap 7.6, BUN 20 H, Creatinine 0.80, Estimated Creat Clear 38, Estimated GFR 70, Est GFR ( Amer) 84, Glucose 105 H D, Calcium 6.5 L, Total Bilirubin 1.1, AST 44 H, ALT 38, Alkaline Phosphatase 90, Total Protein 4.7 L, Albumin 2.4 L, Globulin 2.3, Albumin/Globulin Ratio 1.0 L I & O for Last 24 hours: Intake & Output 03/16/24 03/17/24 03/18/24 03/19/24 23:59 23:59 23:59 23:59 Intake Total 2285 / 2285 971 / 971 1170 / 1170 Output Total 5485 / 5585 3805 / 3805 575 / 575 Balance -3200 / -3300 -2834 / -2834 595 / 595 Weight 61.235 kg 50.712 kg 51.528 kg 50.8 kg Microbiology Reports for the Last 24 Hours: Microbiology 03/16/24 22:12 Blood Blood Culture - Preliminary NO GROWTH AFTER 24 HOURS 03/16/24 22:12 Blood Blood Culture - Preliminary NO GROWTH AFTER 24 HOURS 03/16/24 06:40 Blood Blood Culture - Preliminary NO GROWTH AFTER 48 HOURS 03/16/24 06:40 Blood Blood Culture - Preliminary NO GROWTH AFTER 48 HOURS Constitutional Constitutional: no acute distress, chronically ill appearing and cooperative *Routine HEENT Exam Head: Present normocephalic Eye: Present EOMI and PERRL ENT: Present mucous membranes moist *Routine Neck Exam Neck: Present supple; Absent lymphadenopathy *Routine Respiratory Exam Respiratory: Present CTA bilaterally; Absent rhonchi, wheezes or crackles *Routine Cardiovascular Exam Cardiovascular: Present RRR *Routine Abdominal Exam Abdominal: Present soft, normoactive bowel sounds and tenderness (Around surgical site. Ostomy healthy. Dark stool drainage) *Routine Rectal Exam Patient deferred: visual exam *Routine Exam Patient deferred: external exam *Routine Extremities Exam Extremities: Absent cyanosis, clubbing or edema *Routine Skin Exam Skin: Present warm; Absent rash *Routine Neurological Exam Neurological: Present alert, oriented X3 and moving all extremities; Absent altered mental status Results Data Completed and Pending Labs on day of discharge: Labs from last 24 hours 03/19/24 03/18/24 06:47 07:10 WBC 8.5 7.1 D RBC 3.56 L 3.56 L Hgb 9.2 L 9.2 L Hct 28.2 L 28.2 L MCV 79.2 L 79.2 L MCH 25.8 L 25.8 L MCHC 32.6 32.6 RDW 18.4 H 18.2 H Plt Count 234 231 MPV 9.7 9.5 Neut % (Auto) 70.1 67.2 Lymph % (Auto) 20.5 20.7 [place] % (Auto) 7.2 10.1 H Eos % (Auto) 0.7 0.8 Baso % (Auto) 0.2 0.1 Neut # (Auto) 6.0 4.8 Lymph # (Auto) 1.8 1.5 [place] # (Auto) 0.6 0.7 Eos # (Auto) 0.1 0.1 Baso # (Auto) 0.0 0.0 Sodium 141 148 H Potassium 4.6 D 3.1 L Chloride 117 H 118 H Carbon Dioxide 21 L 26 Anion Gap 7.6 7.1 BUN 20 H 19 H Creatinine 0.80 0.70 D Estimated Creat Clear 38 39 Estimated GFR 70 81 Est GFR ( Amer) 84 98 D Glucose 105 H D 134 H Calcium 6.5 L 6.9 L Magnesium 2.1 Total Bilirubin 1.1 1.1 AST 44 H 54 H D ALT 38 41 Alkaline Phosphatase 90 81 Total Protein 4.7 L 5.3 L Albumin 2.4 L 2.6 L Globulin 2.3 2.7 Albumin/Globulin Ratio 1.0 L 1.0 L Preliminary micro results at discharge 03/16/24 22:12 Blood Culture - Preliminary Blood NO GROWTH AFTER 24 HOURS 03/16/24 22:12 Blood Culture - Preliminary Blood NO GROWTH AFTER 24 HOURS 03/16/24 06:40 Blood Culture - Preliminary Blood NO GROWTH AFTER 48 HOURS 03/16/24 06:40 Blood Culture - Preliminary Blood NO GROWTH AFTER 48 HOURS DS: Diagnosis Discharge Diagnosis (1) Sepsis: Status: Acute Code(s): A41.9 - Sepsis, unspecified organism (2) Rupture of colon: Status: Acute Code(s): K63.1 - Perforation of intestine (nontraumatic) (3) Stercoral colitis: Status: Acute Code(s): K52.89 - Other specified noninfective gastroenteritis and colitis (4) Anemia: Status: Acute Code(s): D64.9 - Anemia, unspecified Qualifiers: Anemia type: other cause Other causes of anemia: acute posthemorrhagic Qualified Code(s): D62 - Acute posthemorrhagic anemia Problem details: Not sure anemia is related to exclusively vaginal bleeding. She states this is improving. Agree with [employer] for no need for intervention at this point. I am unclear about why patient is on Xarelto. Cardiology notes record atrial fibrillation but I can see no actual A-fib either on a Holter report that I read last year or any EKG recently. Patient states she is on the blood thinner so I do not have a heart attack. This may need to be readdressed with primary family practice office. I do not think her shortness of air is from the anemia and this seems to be perhaps a more chronic problem. I think this would be best worked up as an outpatient, I do not see a need for active transfusion at this point given normal vital signs. (5) Hypertension: Status: Chronic Code(s): I10 - Essential (primary) hypertension Qualifiers: Hypertension type: essential hypertension Qualified Code(s): I10 - Essential (primary) hypertension Meds Home Medications and Allergies Home Medications ?Medication ?Instructions ?Recorded ?Confirmed ?Type aspirin 81 mg tablet,delayed 81 mg PO Q2D 12/31/19 03/13/24 History release (Adult Aspirin Regimen) digoxin 250 mcg (0.25 mg) tablet 125 mcg PO DAILY 12/31/19 03/13/24 History simvastatin 40 mg tablet 40 mg PO HS 12/04/20 03/13/24 History rivaroxaban 15 mg tablet 15 mg PO QPMWITHMEAL 07/19/23 03/13/24 History albuterol sulfate 90 mcg/actuation 1 puff inhalation QIDP PRN 01/11/24 03/13/24 History aerosol inhaler Shortness Of Breath Or Wheezing pantoprazole 40 mg tablet,delayed 40 mg PO HS 01/11/24 03/13/24 History release estradiol 0.01% (0.1 mg/gram) 0.5 appful vaginal .3x weekly 01/18/24 03/13/24 Rx vaginal cream (Estrace) #42.5 grams losartan 50 mg tablet 50 mg PO DAILY 03/09/24 03/13/24 History carvedilol 25 mg tablet 25 mg PO BID #60 tabs 03/21/24 Rx levofloxacin 750 mg tablet 750 mg PO DAILY 3 days #3 tabs 03/21/24 Rx quetiapine 25 mg tablet 25 mg PO HS 10 days #10 tabs 03/21/24 Rx New Prescriptions to Start Prescriptions: carvedilol Ananth Gonzalez levofloxacin Lisa,Ananth quetiapine Ananth Gonzalez Allergies Allergy/AdvReac Type Severity Reaction Status Date / Time No Known Allergies Allergy Verified 02/29/24 12:05 Discharge Plan Disposition Patient Disposition: Home, Self-Care Condition: Fair Discharge Order Discharge Orders: Discharge Order (Routine); Ordered 03/21/24 Ordered By: Ananth Gonzalez Follow up Plan Follow up with: Provider,MD Simone [Referring] - See instructions (PLEASE CALL OFFICE FOR FOLLOW UP) Berlin Hurtado MD [Staff Physician] - 1 week (PLEASE CALL OFFICE FOR FOLLOW UP) Prescriptions/Medication Reconciliation: New quetiapine 25 mg Tablet 25 mg PO HS 10 Days Qty: 10 0RF carvedilol 25 mg Tablet 25 mg PO BID Qty: 60 0RF levofloxacin 750 mg tablet 750 mg PO DAILY 3 Days Qty: 3 0RF Continued digoxin 250 mcg (0.25 mg) tablet 125 mcg PO DAILY aspirin [Adult Aspirin Regimen] 81 mg tablet,delayed release (DR/EC) 81 mg PO Q2D simvastatin 40 mg tablet 40 mg PO HS albuterol sulfate 90 mcg/actuation HFA aerosol inhaler 1 puff inhalation QIDP PRN (Reason: Shortness Of Breath Or Wheezing) Patient Comments: INHALE 1 PUFF BY MOUTH EVERY 4 HOURS NEEDED pantoprazole 40 mg tablet,delayed release (DR/EC) 40 mg PO HS Patient Comments: TAKE 1 TABLET BY MOUTH ONCE DAILY estradiol [Estrace] 0.01 % (0.1 mg/gram) cream 0.5 appful vaginal .3x weekly Qty: 42.5 2RF Rx Instructions: apply blueberry size amount 3x weekly vaginally losartan 50 mg tablet 50 mg PO DAILY rivaroxaban 15 mg tablet 15 mg PO QPMWITHMEAL Discontinued verapamil 120 mg tablet extended release 120 mg PO BID levofloxacin 500 mg tablet 500 mg PO DAILY Qty: 5 0RF Rx Instructions: FOR 5 DAYS, FILLED 03/10/24 prednisone 10 mg tablet 10 mg PO DAILY Qty: 5 0RF Rx Instructions: FOR 5 DAYS, FILLED 03/10/24 metoprolol succinate 50 MG tablet extended release 24 hr 50 mg PO DAILY Problem Reconciliation Problems Reviewed?: Yes Patient Discharge Instructions ACTIVITY: Continue current activity DIET: continue same diet and other Additional Instructions: low residue, low fiber Patient Instructions: How to Care for Your Colostomy or Ileostomy, DI for Exploratory Laparotomy, DI for Surgical Site Infection, DI for Colitis, DI for Colon Perforation, Catheter-Associated Urinary Tract Infection Print Language: [place] Providers Primary Care Provider: Salvador Barrera Admit Provider: Clayton Teixeira Attending Provider: Clayton Teixeira
[2024-03-21] MEDS: RIVAROXABAN 15MG TABLET 15 MG PO (18:24)
[2024-03-21] MEDS: QUETIAPINE 25MG TABLET 25 MG PO (18:24)
--- NOTE | 2024-03-22 10:22 | SW/DCPLANNER ---
Spoke with patients daughter. Patients daughter stated that her mom is doing well. Patients daughter stated that that she is heading to go and get her [facility]s medicine [facility] Patients daughter asked if i could call and schedule her mom an follow up appointment with Dr Hurtado it was scheduled on Mar.27 at 10:30. Patients daughter stated that she has no concerns or questions at this time. Lianna Salguero
== END 2024-03-21 18:45 | disposition home or self-care (01) | DRG 329 ==
LOC: ER 10:01 → SDC 10:20 → ICU 12:16 → 2ND 03-17 11:13
PROVIDERS: Internal Medicine; Nurse Practitioner Family; Surgery; Admitting Provider Student in an Organized Health Care Education/Training Program; Emergency Provider Emergency Medicine; PCP Family Medicine; Visit Provider Student in an Organized Health Care Education/Training Program
PROC: 0DBN0ZZ Excision of Sigmoid Colon, Open Approach (ICD-10-PCS; CPT 49000; principal; 2024-03-13 10:00)
PROC: 4A023N7 Measurement of Cardiac Sampling and Pressure, Left Heart, Percutaneous Approach (ICD-10-PCS; principal; 2024-03-20 12:00)
DX: K57.20 Diverticulitis of large intestine with perforation and abscess without bleeding (principal); A41.9 Sepsis, unspecified organism; J18.9 Pneumonia, unspecified organism; J96.01 Acute respiratory failure with hypoxia; D62 Acute posthemorrhagic anemia; K55.8 Other vascular disorders of intestine; J90 Pleural effusion, not elsewhere classified; K52.89 Other specified noninfective gastroenteritis and colitis; I48.0 Paroxysmal atrial fibrillation; I10 Essential (primary) hypertension; K21.9 Gastro-esophageal reflux disease without esophagitis; Z79.899 Other long term (current) drug therapy; Z79.01 Long term (current) use of anticoagulants; K56.41 Fecal impaction; Y95 Nosocomial condition
CPT/HCPCS: 36415; 51702; 71045; 71260; 71275; 74018; 74177; 80048; 80053; 80061; 80162; 81001; 82009; 82607; 82728; 82746; 82803; 82962; 83036; 83540; 83550; 83605; 83690; 83735; 83880; 84100; 84145; 84439; 84443; 84484; 85007; 85014; 85018; 85025; 86140; 86850; 87040; 87075; 87186; 87636; 87641; 88307; 93005; 93306; 93458; 94761; 97110; 97162; 97165; 97530; 97535; 99152; 99291; C1725; C1769; J0131; J1100; J1171; J1200; J1450; J1595; J1644; J1940; J1956; J2185; J2250; J2270; J2405; J2543; J2710; J3010; J3370; J7030; J7050; J7060; J7120; P9016; Q9967; S0028

== ENCOUNTER 2024-03-26 18:45 | Observation (INO) | payer MEDICARE, MEDICAID, SELFPAY ==
[2024-03-26] VITALS (22 sets, daily range): BP systolic 145–186; BP diastolic 81–125; PULSE 95–112; RESP 18–35; TEMP 36.9; O2SAT 95–100; BMI 24.6
--- NOTE | 2024-03-26 18:52 | ECG_ITS ---
APPROVED REPORT Exam: Resting ECG HR:93 bpm ECG Measurements Heart Rate 93 AXES MN 143 P 41 QRSd 122 QRS 56 QT 351 T -21 QTc 401 Conclusion SINUS RHYTHM RIGHT BUNDLE BRANCH BLOCK [120+ ms QRS DURATION, UPRIGHT V1, 40+ ms S IN I/aVL/V4/V5/V6] ABNORMAL ECG Electronically signed by : FLORENCIA HOLT, 03/28/2024 00:06:34
--- NOTE | 2024-03-26 19:10 | CT_ITS ---
PROCEDURE INFORMATION: Exam: CT Head Without Contrast Exam date and time: 03/26/2024 7:59 PM Age: 78 years old Clinical indication: Altered mental status/memory loss; Additional info: AMS TECHNIQUE: Imaging protocol: Computed tomography of the head without contrast. Radiation optimization: All CT scans at this facility use at least one of these dose optimization techniques: automated exposure control; mA and/or kV adjustment per patient size (includes targeted exams where dose is matched to clinical indication); or iterative reconstruction. COMPARISON: No relevant prior studies available. FINDINGS: Brain: No intracranial hemorrhage. Generalized atrophic changes of the ventricles and subarachnoid spaces. Chronic small-vessel ischemic changes noted. No mass, mass effect or midline shift. Intracranial atherosclerotic changes are noted. Cerebral ventricles: See Brain finding. Paranasal sinuses: Mucous retention cyst in the posterior left maxillary sinus. Mild mucosal thickening of some of the ethmoids and right maxillary sinus. No fluid levels. Mastoid air cells: Visualized mastoid air cells are well aerated. Bones: Unremarkable. No acute fracture. Soft tissues: Unremarkable. IMPRESSION: 1. No acute intracranial abnormality. Chronic changes as above. 2. Incidental paranasal sinus disease of uncertain acuity.
--- NOTE | 2024-03-26 19:10 | CT_ITS ---
PROCEDURE INFORMATION: Exam: CTA Chest With Contrast Exam date and time: 03/26/2024 8:01 PM Age: 78 years old Clinical indication: Other: AMS, chest/abd pain TECHNIQUE: Imaging protocol: Computed tomographic angiography of the chest with contrast. Exam focused on the arteries. 3D rendering (Not supervised by radiologist): MIP and/or 3D reconstructed images were created by the technologist. Radiation optimization: All CT scans at this facility use at least one of these dose optimization techniques: automated exposure control; mA and/or kV adjustment per patient size (includes targeted exams where dose is matched to clinical indication); or iterative reconstruction. Contrast material: ISOVUE 370; Contrast volume: 70 ml; Contrast route: INTRAVENOUS (IV); COMPARISON: CT ANGIO CHEST PE PROTOCOL 03/14/2024 12:05 PM FINDINGS: Pulmonary arteries: Non occluding pulmonary embolus in a branch to the left upper lobe series 8, image 46.. Aorta: No aneurysm of the aorta. No dissection of the aorta. Lungs: Consolidation in the lingula and right middle lobe and both lower lobes. Additional ground-glass opacities in the lower lobes. Findings may represent multifocal pneumonia.. Pleural spaces: Moderate bilateral pleural effusions. Heart: Coronary artery calcifications may indicate coronary artery disease. No cardiomegaly. No pericardial effusion. Lymph nodes: Unremarkable. No enlarged lymph nodes. Bones/joints: Unremarkable. No acute fracture. Soft tissues: Unremarkable. IMPRESSION: 1. Non occluding pulmonary embolus in a branch to the left upper lobe series 8, image 46.. 2. Moderate bilateral pleural effusions. 3. Consolidation in the lingula and right middle lobe and both lower lobes. Additional ground-glass opacities in the lower lobes. Findings may represent multifocal pneumonia.. THIS REPORT CONTAINS FINDINGS THAT MAY BE CRITICAL TO PATIENT CARE. The findings were verbally communicated via telephone conference with Isa Saunders at 9:15 PM EST on 03/26/2024. The findings were acknowledged and understood.
--- NOTE | 2024-03-26 19:10 | CT_ITS ---
PROCEDURE INFORMATION: Exam: CT Abdomen And Pelvis With Contrast Exam date and time: 03/26/2024 8:01 PM Age: 78 years old Clinical indication: Abdominal pain; Additional info: AMS, chest/abd pain TECHNIQUE: Imaging protocol: Computed tomography of the abdomen and pelvis with contrast. 3D rendering (Not supervised by radiologist): MIP and/or 3D reconstructed images were created by the technologist. Radiation optimization: All CT scans at this facility use at least one of these dose optimization techniques: automated exposure control; mA and/or kV adjustment per patient size (includes targeted exams where dose is matched to clinical indication); or iterative reconstruction. Contrast material: ISOVUE; Contrast volume: 70 ml; Contrast route: IV; COMPARISON: CT ABDOMEN PELVIS W CON 03/17/2024 11:20 AM FINDINGS: Lungs: Consolidation in both lower lobes may represent atelectasis or pneumonia. Pleural spaces: Moderate bilateral pleural effusions . Heart: There is calcification of the aortic valve annulus. There is calcification of the mitral valve annulus. Coronary arteries: Coronary artery calcifications may indicate coronary artery disease. Liver: Normal. No mass. Gallbladder and biliary ducts: Normal. No calcified stones. No ductal dilation. Pancreas: The pancreas is mildly prominent but there is no nicole pancreatitis.. Spleen: Normal. No splenomegaly. Adrenal glands: Normal. No mass. Kidneys and ureters: 18 mm simple cyst posterior left kidney. 20 mm simple cyst right kidney. 15 mm simple cyst posterior right kidney . No follow-up imaging recommended . Stomach and bowel: Left lower quadrant ostomy. Low-attenuation bowel wall thickening in the distal transverse colon, descending colon and rectosigmoid consistent with colitis. Differential diagnosis includes infectious and inflammatory etiologies.. Appendix: No evidence of appendicitis. Intraperitoneal space: Mild amount of ascites in the abdomen Vasculature: Unremarkable. No abdominal aortic aneurysm. Lymph nodes: Unremarkable. No enlarged lymph nodes. Urinary bladder: Unremarkable as visualized. Reproductive: Pessary in the cervix. At least 4 fluid collections within and adjacent to the uterus and in the adnexal regions. Most of these have developed since March 17. The collection in the uterus measures 27 x 14 mm. Right adnexal region collection measures 26 x 20 mm. Posterior aspect of the uterus collection measures 17 x 17 mm; the collection left lateral to the uterus measures 19 x 13 mm. There are Additional smaller fluid collections. It is unclear whether these represent cystic structures or infection. Pelvic ultrasound may be helpful for further evaluation.. Bones/joints: Unremarkable. No acute fracture. Soft tissues: Unremarkable. IMPRESSION: 1. Moderate bilateral pleural effusions . 2. Left lower quadrant ostomy. 3. Low-attenuation bowel wall thickening in the distal transverse colon, descending colon and rectosigmoid consistent with colitis. Differential diagnosis includes infectious and inflammatory etiologies.. 4. At least 4 fluid collections within and adjacent to the uterus and in the adnexal regions. Most of these have developed since March 17. The collection in the uterus measures 27 x 14 mm. Right adnexal region collection measures 26 x 20 mm. Posterior aspect of the uterus collection measures 17 x 17 mm; the collection left lateral to the uterus measures 19 x 13 mm. There are Additional smaller fluid collections. It is unclear whether these represent cystic structures or infection. Pelvic ultrasound may be helpful for further evaluation.. 5. The pancreas is mildly prominent but there is no nicole pancreatitis.. COMMENTS: Consistent with the [employer]'s Incidental Findings Committee white paper (J Am Danisha Radiol 2018): Any incidental renal lesion less than 1 cm or classified as too small to characterize, or any incidental cystic renal lesion characterized as simple-appearing, is likely benign. No follow-up imaging is recommended for these lesions per consensus recommendations based on imaging criteria. THIS REPORT CONTAINS FINDINGS THAT MAY BE CRITICAL TO PATIENT CARE. The findings were verbally communicated via telephone conference with Isa Saunders at 9:12 PM EST on 03/26/2024. The findings were acknowledged and understood.
[2024-03-26 19:20] LABS: Basophils % 0.4 % (0.1-2.0); Eosinophils % 0.4 % (0.1-12.0); Hematocrit 28.9 % (37.0-47.0); Hemoglobin 9.4 g/dL (12.2-16.2); Lymphocytes # 1.3 K/mm3 (0.7-4.5); Lymphocytes % 15.8 % (10-50); Mean Corpuscular HGB Conc 32.5 g/dL (31.8-35.4); Mean Corpuscular Hemoglobin 25.9 pg (27.0-31.2); Mean Corpuscular Volume 79.6 fl (81-99); Mean Platelet Volume 9.5 fl (7.4-10.4); Monocytes % 11.8 % (1.7-9.3); Platelet Count 756 K/mm3 (142-424); Red Blood Count 3.63 M/mm3 (4.20-5.40); White Blood Count 8.4 K/mm3 (4.8-10.8)
[2024-03-26 19:25] LABS: Albumin Level 2.9 g/dl (3.5-5.0); Chloride 104 mmol/L (98-107); Potassium 3.4 mmoL/L (3.5-5.1); Sodium 132 mmol/L (136-145)
[2024-03-26 19:28] LABS: Alanine Aminotransferase 59 U/L (12-78); Alkaline Phosphatase 115 U/L (38-126); Anion Gap 10.4 mEq/L (5-15); Aspartate Amino Transferase 46 U/L (14-36); Bilirubin,Total 0.7 mg/dl (0.2-1.3); Blood Urea Nitrogen 10 mg/dl (7-17); Calcium 8.2 mg/dl (8.4-10.2); Carbon Dioxide 21 mmol/L (22.0-30.0); Creatinine Clearance Estimated 40 mL/min (50-200); Estimated Glomerular Filt Rate 81 ml/min (>60); GFR (African American) 98 ML/MIN (>60); Glucose 109 mg/dl (74-100); Total Protein,Serum 5.9 g/dl (6.3-8.2)
[2024-03-26 19:33] LABS: Activated Partial Thrombo Time 33.3 seconds (22.8-30.6); INR 1.23 (0.9-1.1); Prothrombin Time 13.5 seconds (10.1-12.5)
[2024-03-26 19:40] LABS: Magnesium 1.5 mg/dl (1.6-2.3)
[2024-03-26 19:43] LABS: Troponin I 0.03 ng/ml (0.00-0.034)
[2024-03-26 19:47] LABS: T4 (Thyroxine) 8.8 ug/dl (5.53-11.0)
[2024-03-26 19:48] LABS: Lipase 608 U/L (23-300)
[2024-03-26 19:50] LABS: Ammonia < 9 umol/L (9-30)
--- NOTE | 2024-03-26 19:50 | PC.NURSE ---
rounded on pt. pt requesting a drink of water. educated pt, per Dr Saunders we are waiting on scan results before she can drink. ammonia level drawn and sent to lab
[2024-03-26 19:59] LABS: NT Pro Brain Natriuretic Pep. 2340 pg/mL (0-450)
[2024-03-26] MEDS: 0.9 % SODIUM CHLORIDE 50 ML VIAL IV (20:00)
[2024-03-26] MEDS: SODIUM CHLORIDE 0.9% 10ML SYR (RAD ONLY) 10 ML IV (20:00)
[2024-03-26] MEDS: IOPAMIDOL-370 (76%);100ML BOTTLE 80 ML IV (20:00)
--- NOTE | 2024-03-26 20:02 | HMH.EDGENADL ---
Discharge Plan Disposition Patient Disposition: Admitted Chief Complaint: Chest Pain Prescriptions Prescriptions: No Action digoxin 250 mcg (0.25 mg) tablet 125 mcg PO DAILY aspirin [Adult Aspirin Regimen] 81 mg tablet,delayed release (DR/EC) 81 mg PO Q2D simvastatin 40 mg tablet 40 mg PO HS albuterol sulfate 90 mcg/actuation HFA aerosol inhaler 1 puff inhalation QIDP PRN (Reason: Shortness Of Breath Or Wheezing) Patient Comments: INHALE 1 PUFF BY MOUTH EVERY 4 HOURS NEEDED pantoprazole 40 mg tablet,delayed release (DR/EC) 40 mg PO HS Patient Comments: TAKE 1 TABLET BY MOUTH ONCE DAILY estradiol [Estrace] 0.01 % (0.1 mg/gram) cream 0.5 appful vaginal .3x weekly Qty: 42.5 2RF Rx Instructions: apply blueberry size amount 3x weekly vaginally losartan 50 mg tablet 50 mg PO DAILY rivaroxaban 15 mg tablet 15 mg PO QPMWITHMEAL quetiapine 25 mg Tablet 25 mg PO HS 10 Days Qty: 10 0RF carvedilol 25 mg Tablet 25 mg PO BID Qty: 60 0RF levofloxacin 750 mg tablet 750 mg PO DAILY 3 Days Qty: 3 0RF Referrals Follow up/Referrals: Provider,Referral, MD [Primary Care Provider] - See instructions Clinical Impressions Clinical Impression: Intra-abdominal fluid collection, Pleural effusion, Pancreatitis, Hypokalemia, Hypomagnesemia, Pulmonary embolism, Altered mental status, Acute UTI Print Language Print Language: Welsh Discharge ED Provider: Isa Saunders General Adult HPI <Isa Saunders DO - Last Filed: 03/26/24 23:57> General Chief complaint: Chest Pain Stated complaint: AMS Time Seen by Provider: 03/26/24 18:48 Mode of Arrival: EMS Source of Information: Patient Limitations: No Limitations Description of Symptoms (Recalled from ER Triage Doc. by RN): chest pain X3 days with intermintin pain, no radiating pain History of Present Illness HPI narrative: This patient is a 78-year-old female with a history of CAD, paroxysmal atrial fibrillation on digoxin and Xarelto, hypertension, and hyperlipidemia with recent hospitalization for stercoral colitis with sigmoid colon perforation status post colectomy with ostomy placement presenting to the emergency department for evaluation with concern for altered mental status. Patient's daughter called EMS to come get the patient because she stated that the patient had been confused and appeared to be generally weak. Patient's daughter is a nurse and took vital signs and noted that they were normal. She states patient has been eating and drinking normally and has been having good urine output and Ostomy output, so she is not sure what could be going on, but given confusion coupled with generalized weakness she had her sent in for evaluation. Patient had called EMS earlier today stating that she was being neglected and was not being fed or looked after while her daughter was at work, however upon EMS arrival she did have a caregiver there and appeared to be very well taking care of, so they got a refusal. Patient reports to me that she is not being fed and has not had a square meal since going home from the hospital. She states that the only thing that she had yesterday where 2 tiny pieces of pizza and then today the only thing she has had is a couple renita crackers. She states that she is not being fed by her daughter because her daughter is too busy and she is not able to get up and cook things or self because she is too weak and does not have any energy. She does state that she is having intermittent twinges of pain in her left chest/epigastric region, but it comes and goes. No other concerns noted. It should be noted, however, the patient was found to have delirium while admitted to the hospital that did not resolve prior to discharge. She was discharged on Seroquel. She currently is alert and oriented to person and place but not time or situation. Related Data Home Medications ?Medication ?Instructions ?Recorded ?Confirmed aspirin 81 mg tablet,delayed 81 mg PO Q2D 12/31/19 03/13/24 release (Adult Aspirin Regimen) digoxin 250 mcg (0.25 mg) tablet 125 mcg PO DAILY 12/31/19 03/13/24 simvastatin 40 mg tablet 40 mg PO HS 12/04/20 03/13/24 rivaroxaban 15 mg tablet 15 mg PO QPMWITHMEAL 07/19/23 03/13/24 albuterol sulfate 90 mcg/actuation 1 puff inhalation QIDP PRN 01/11/24 03/13/24 aerosol inhaler Shortness Of Breath Or Wheezing pantoprazole 40 mg tablet,delayed 40 mg PO HS 01/11/24 03/13/24 release losartan 50 mg tablet 50 mg PO DAILY 03/09/24 03/13/24 Previous Rx's ?Medication ?Instructions ?Recorded estradiol 0.01% (0.1 mg/gram) 0.5 appful vaginal .3x weekly 01/18/24 vaginal cream (Estrace) #42.5 grams carvedilol 25 mg tablet 25 mg PO BID #60 tabs 03/21/24 levofloxacin 750 mg tablet 750 mg PO DAILY 3 days #3 tabs 03/21/24 quetiapine 25 mg tablet 25 mg PO HS 10 days #10 tabs 03/21/24 Allergies Allergy/AdvReac Type Severity Reaction Status Date / Time No Known Allergies Allergy Verified 02/29/24 12:05 [facility] <Isa Saunders DO - Last Filed: 03/26/24 23:57> [facility] Disclaimer: The information contained in this section may have been updated after the patient was seen, as this information can be updated by other users. 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 Hypertension Diastolic dysfunction HLD (hyperlipidemia) Abnormal echocardiogram Pneumonia Atelectasis of both lungs Pleural effusion, bilateral Dyspnea on exertion Chronic cough Shortness of Breath Hypertension High cholesterol Afib Surgical History History of appendectomy Family History Other No significant family history Social History Smoking Status: Never smoker alcohol intake: never counseling provided: none (Patient does not smoke or use alcohol ) substance use type: denies use current occupational status: retired Travel in the last 8 weeks: None household members: family housing: house caffeine: Yes do you feel safe at home: Yes victim of physical abuse: No victim of emotional abuse: No victim of sexual abuse: No Have you lived/traveled outside [place] in past 30 days?: No Contact w/someone who lives/traveled outside US past 30 days?: No Exposure to someone with infectious disease in past 14 days?: No Do you have a fever (greater than 100.4 F or 38 C)?: No Have you tested positive for COVID-19: No Exposed to someone with COVID-19 in past 14 days?: No Do you have a sore throat?: No Do you have a cough?: No Do you have any weakness?: No Do you have any diarrhea?: No Are you experiencing any unusual bleeding?: No Do you have any muscle aches/pain?: No Do you have any abdominal pain?: No Are you experiencing loss of taste or smell?: No Other 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 Have you received the Flu Vaccine for this season: No Have you received the Pneumonia Vaccine: No <Isa Saunders DO - Last Filed: 03/26/24 23:57> ROS Obtained: Yes All systems reviewed & no additional complaints except as documented Physical Exam <Isa Saunders DO - Last Filed: 03/26/24 23:57> General General appearance: alert and in no apparent distress Head Head exam: atraumatic and normocephalic Eye Eye exam: Present normal appearance, PERRL and EOMI ENT ENT exam: Present normal exam, normal oropharynx, mucous membranes moist and normal external ear exam Neck Neck exam: Present normal inspection, full ROM and trachea midline; Absent tenderness Chest Chest inspection: Present normal inspection and symmetric chest wall rise; Absent tenderness Respiratory Respiratory exam: Present normal lung sounds bilaterally; Absent respiratory distress, wheezes, stridor or accessory muscle use Cardiovascular Cardiovascular exam: Present regular rate and normal rhythm Abdominal Exam Abdominal exam: Present soft; Absent distention, tenderness or guarding Comment: Ostomy in place that appears pink and healthy with good output that is nonbloody Extremities Exam Extremities exam: Present normal inspection, full ROM and normal capillary refill; Absent tenderness or edema Back Exam Back exam: Present normal inspection and full ROM; Absent tenderness Neurological Exam Neurological exam: Present alert, CN II-XII intact and other (Disoriented without focal neurologic deficit); Absent oriented X3 or motor sensory deficit Psychiatric Psychiatric exam: Present other (Tearful) Skin Skin exam: Present warm and dry Medical Decision Making <Isa Saunders DO - Last Filed: 03/26/24 23:57> Medical Records Medical records reviewed: Yes I reviewed the patient's medical records. Screening: Per USPSTF and CDC recommendations, given the prevalence of disease in our region, it is our hospital?s policy to screen for HIV and viral Hepatitis for all patients aged 18 and over and those with ongoing risk factors. Rui Inquiry Pt receiving controlled substance: No Vital Signs: 03/26/24 18:56 03/26/24 19:25 03/26/24 19:30 Temperature 98.4 F Temperature Source Oral Pulse Rate 96 H 98 H Pulse Rate [Right Radial] 95 H Respiratory Rate 18 18 21 Blood Pressure 164/90 H 148/85 H Blood Pressure [Right Arm] 155/95 H Blood Pressure Mean 119 106 Blood Pressure Mean [Right Arm] 115 02 Sat by Pulse Oximetry 97 95 98 Oxygen Delivery Method Room Air Room Air Room Air 03/26/24 19:45 03/26/24 20:16 03/26/24 20:26 Temperature Temperature Source Pulse Rate 98 H 98 H 99 H Pulse Rate [Right Radial] Respiratory Rate 22 20 25 H Blood Pressure 176/99 H 182/103 H 171/92 H Blood Pressure [Right Arm] Blood Pressure Mean 121 129 118 Blood Pressure Mean [Right Arm] 02 Sat by Pulse Oximetry 98 98 98 Oxygen Delivery Method Room Air Room Air Room Air 03/26/24 20:27 03/26/24 20:28 03/26/24 20:31 Temperature Temperature Source Pulse Rate 99 H 99 H 112 H Pulse Rate [Right Radial] Respiratory Rate 26 H 25 H 26 H Blood Pressure 167/93 H 161/95 H 161/99 H Blood Pressure [Right Arm] Blood Pressure Mean 120 112 113 Blood Pressure Mean [Right Arm] 02 Sat by Pulse Oximetry 99 99 98 Oxygen Delivery Method Room Air Room Air Room Air 03/26/24 20:45 03/26/24 21:01 03/26/24 21:15 Temperature Temperature Source Pulse Rate 98 H 100 H Pulse Rate [Right Radial] Respiratory Rate 23 35 H Blood Pressure 173/125 H 186/99 H 181/102 H Blood Pressure [Right Arm] Blood Pressure Mean 138 128 128 Blood Pressure Mean [Right Arm] 02 Sat by Pulse Oximetry 100 98 98 Oxygen Delivery Method Room Air Room Air Room Air 03/26/24 21:30 03/26/24 21:45 03/26/24 22:01 Temperature Temperature Source Pulse Rate 103 H 99 H 100 H Pulse Rate [Right Radial] Respiratory Rate 35 H Blood Pressure 180/98 H 169/90 H 176/107 H Blood Pressure [Right Arm] Blood Pressure Mean 125 129 130 Blood Pressure Mean [Right Arm] 02 Sat by Pulse Oximetry 98 98 97 Oxygen Delivery Method Room Air Room Air Room Air 03/26/24 22:15 03/26/24 22:30 03/26/24 22:45 Temperature Temperature Source Pulse Rate 101 H 101 H Pulse Rate [Right Radial] Respiratory Rate 25 H 26 H 25 H Blood Pressure 179/104 H 185/96 H 167/90 H Blood Pressure [Right Arm] Blood Pressure Mean 122 125 118 Blood Pressure Mean [Right Arm] 02 Sat by Pulse Oximetry 97 97 96 Oxygen Delivery Method Room Air Room Air Room Air 03/26/24 23:00 03/26/24 23:15 03/26/24 23:30 Temperature Temperature Source Pulse Rate 101 H 101 H Pulse Rate [Right Radial] Respiratory Rate 25 H 25 H 25 H Blood Pressure 161/82 H 161/83 H 145/81 H Blood Pressure [Right Arm] Blood Pressure Mean 108 109 102 Blood Pressure Mean [Right Arm] 02 Sat by Pulse Oximetry 96 96 96 Oxygen Delivery Method Room Air Room Air Room Air 03/26/24 23:45 03/27/24 00:00 03/27/24 00:15 Temperature Temperature Source Pulse Rate 101 H 99 H 100 H Pulse Rate [Right Radial] Respiratory Rate 30 H 30 H 28 H Blood Pressure 149/82 H 161/92 H 169/101 H Blood Pressure [Right Arm] Blood Pressure Mean 104 113 112 Blood Pressure Mean [Right Arm] 02 Sat by Pulse Oximetry 96 Oxygen Delivery Method Room Air 03/27/24 00:30 03/27/24 00:45 03/27/24 01:00 Temperature Temperature Source Pulse Rate 100 H 100 H 100 H Pulse Rate [Right Radial] Respiratory Rate 32 H 32 H 22 Blood Pressure 170/97 H 168/99 H 160/109 H Blood Pressure [Right Arm] Blood Pressure Mean 109 121 126 Blood Pressure Mean [Right Arm] 02 Sat by Pulse Oximetry 96 95 95 Oxygen Delivery Method Room Air Room Air Room Air 03/27/24 01:15 Temperature Temperature Source Pulse Rate 108 H Pulse Rate [Right Radial] Respiratory Rate 30 H Blood Pressure 162/99 H Blood Pressure [Right Arm] Blood Pressure Mean 118 Blood Pressure Mean [Right Arm] 02 Sat by Pulse Oximetry 98 Oxygen Delivery Method Room Air Lab Data Lab results reviewed: Yes I reviewed the patient's lab results. Lab Results 03/26/24 19:10: VBG pH 7.49 H, VBG pCO2 20.4 L, VBG pO2 49.2 H, VBG HCO3 15.0 L, VBG Total CO2 15.6 L, VBG O2 Saturation 87.3 H, VBG Base Excess -8.4 L, VBG Lactic Acid 1.0 03/26/24 19:13: WBC 8.4, RBC 3.63 L, Hgb 9.4 L, Hct 28.9 L, MCV 79.6 L, MCH 25.9 L, MCHC 32.5, RDW 19.0 H, Plt Count 756 H, MPV 9.5, Neut % (Auto) 71.0, Lymph % (Auto) 15.8, Nicholas % (Auto) 11.8 H, Eos % (Auto) 0.4, Baso % (Auto) 0.4, Neut # (Auto) 6.0, Lymph # (Auto) 1.3, Nicholas # (Auto) 1.0, Eos # (Auto) 0.0, Baso # (Auto) 0.0, ESR 91 H, PT 13.5 H, INR 1.23 H, APTT 33.3 H, Sodium 132 L, Potassium 3.4 L, Chloride 104, Carbon Dioxide 21 L, Anion Gap 10.4, BUN 10, Creatinine 0.70, Estimated Creat Clear 40, Estimated GFR 81, Est GFR ( Amer) 98, Glucose 109 H, Calcium 8.2 L, Magnesium 1.5 L, Total Bilirubin 0.7, AST 46 H, ALT 59, Alkaline Phosphatase 115, Troponin I 0.03, NT-Pro-B Natriuret Pep 2340 H, Total Protein 5.9 L, Albumin 2.9 L, Globulin 3.0, Albumin/Globulin Ratio 1.0 L, Lipase 608 H, Procalcitonin 0.117, TSH 4.00, Thyroxine (T4) 8.8, Digoxin < 0.40 03/26/24 19:35: Ammonia < 9 L 03/26/24 20:18: Urine Color Yellow, Urine Appearance Clear, Urine pH 6.5, Ur Specific [place] 1.010, Urine Protein Negative, Urine Glucose (UA) Negative, Urine Ketones Negative, Urine Blood 1+ A, Urine Nitrate Negative, Urine Bilirubin Negative, Urine Urobilinogen 0.2, Ur Leukocyte Esterase 2+ A, Urine RBC 50-100, Urine WBC Tntc, Ur Squamous Epith Cells 20-50, Urine Bacteria 3+, Urine Opiates Screen Negative, Urine Methadone Screen Negative, Ur Barbituates Screen Negative, Ur Phencyclidine Scrn Negative, Ur Amphetamines Screen Negative, U Benzodiazepines Scrn Negative, Urine Cocaine Screen Negative, U Marijuana (THC) Screen Negative 03/26/24 22:41: Lactate 0.8, Troponin I 0.03, C-Reactive Protein 173.7 H 03/27/24 01:22: Troponin I 0.03 03/26/24 19:13 03/26/24 19:13 Orders (Tests/Meds): ED MEDICATIONS Generic Name Dose Route Start Last Admin Trade Name Freq PRN Reason Stop Dose Admin Miscellaneous 1 each 03/26/24 21:45 03/26/24 22:09 Vancomycin Consult Request NOTAPPLIC 04/25/24 21:44 Not Given CONSULT PHARMACY SUBHASH Sodium Chloride 10 ml 03/26/24 19:59 03/26/24 20:00 Sodium Chloride 0.9% 10ml Syr (Rad Only) IV 04/25/24 19:58 10 ml NEEDED PRN Administration Maintain IV Site Discontinued Medications Generic Name Dose Route Start Last Admin Trade Name Freq PRN Reason Stop Dose Admin Enoxaparin Sodium 55 mg 03/26/24 22:00 Enoxaparin 100mg/Ml Syringe 1 mg/kg (55 mg) 04/25/24 21:59 SUBCUT Q12H [facility] Enoxaparin Sodium 55 mg 03/26/24 21:57 03/26/24 22:31 Enoxaparin 100mg/Ml Syringe 1 mg/kg (55 mg) 03/26/24 21:58 55 mg SUBCUT Administration ONCE ONE Lactated Ringer's 1,000 mls @ 999 mls/hr 03/26/24 20:18 03/26/24 20:38 Lactated Ringer's 1000 Ml Bag IV 03/26/24 21:18 999 mls/hr .Q1H1M ONE Administration Magnesium Sulfate 2 gm in 50 mls @ 50 mls/hr 03/26/24 20:18 03/26/24 20:38 Magnesium Sulfate 2gm/50ml Premix IV 03/26/24 21:17 50 mls/hr ONCE ONE Administration Piperacillin Sod/Tazobactam 50 mls @ 100 mls/hr 03/26/24 21:43 03/26/24 22:11 Sod 3.375 gm/ Sodium Chloride IV 03/26/24 22:12 100 mls/hr ONCE ONE Administration Vancomycin/PEG/NADA/Lysine/Water 1.25 gm in 250 mls @ 125 mls/hr 03/26/24 22:00 03/26/24 22:48 Vancomycin 1.25gm/250ml (Peg) Premix IV 03/26/24 23:59 125 mls/hr ONCE ONE Administration Iopamidol 80 ml 03/26/24 19:59 03/26/24 20:00 Iopamidol-370 (76%);100ml Bottle IV 03/26/24 20:00 80 ml ONCE ONE Administration Potassium Chloride 40 meq 03/26/24 20:18 03/26/24 20:38 Potassium Chloride 20meq Tab PO 03/26/24 20:19 40 meq ONCE ONE Administration Sodium Chloride 50 ml 03/26/24 19:59 03/26/24 20:00 0.9 % Sodium Chloride 50 Ml Vial IV 03/26/24 20:00 50 ml ONCE ONE Administration ORDERS Category Date Time Status CT abdomen pelvis w con Stat Cat Scan 03/26/24 19:[address] angio chest PE protocol Stat Cat Scan 03/26/24 19:[address] head/brain wo con Stat Cat Scan 03/26/24 19:10 Completed Ammonia Stat Lab 03/26/24 19:35 Completed BNP [NT Pro Brain Natriuretic Pep.] Stat Lab 03/26/24 19:13 Completed CRP [C-Reactive Protein] Stat Lab 03/26/24 22:41 Completed Complete Blood Count Auto Diff Stat Lab 03/26/24 19:13 Completed Comprehensive Metabolic Panel Stat Lab 03/26/24 19:13 Completed DIG [Digoxin] Stat Lab 03/26/24 19:13 Completed ESR [Erythrocyte Sedimentation Rate] Stat Lab 03/26/24 19:13 Completed Lactic Acid Stat Lab 03/26/24 22:41 Completed Lipase Stat Lab 03/26/24 19:13 Completed MAG [Magnesium] Stat Lab 03/26/24 19:13 Completed PT INR [Prothrombin Time INR] Stat Lab 03/26/24 19:13 Completed PTT [Activated Partial Thrombo Time] Stat Lab 03/26/24 19:13 Completed Procalcitonin Stat Lab 03/26/24 19:13 Completed T4 (Thyroxine) Stat Lab 03/26/24 19:13 Completed TSH [Thyroid Stimulating Hormone] Stat Lab 03/26/24 19:13 Completed Trop I [Troponin I] Stat Lab 03/26/24 19:13 Completed Troponin I Q3H Lab 03/26/24 22:41 Completed Troponin I Q3H Lab 03/27/24 01:22 Completed UA [Urinalysis and Microscopic] Stat Lab 03/26/24 20:18 Completed UDS [Drug Screen,Urine] Stat Lab 03/26/24 20:18 Completed Blood Culture Stat Micro 03/26/24 Received Urine Culture Stat Micro 03/26/24 20:18 Received VBG [Venous Blood Gas] Stat RT 03/26/24 19:10 Completed ECG Data Tracing #1: I reviewed this ECG and interpreted as documented below: Normal sinus rhythm with a ventricular rate of 93 bpm. Right bundle branch block. No acute STEMI. Reverse ticked ST segment consistent with digoxin use. ECG initial impression date: 03/26/24 ECG initial impression time: 19:10 Medical Decision Narrative: In summary, this patient is a 78-year-old female presenting to the Emergency Department for evaluation of altered mental status. She reports twinges of chest pain and states that she is not being fed at home, however her daughter is adamant that she is being fed and cared for. Her daughter has been managing her medications, feeding her, and checking vital signs which have been normal. Family is staying with her when her daughter is at work. Differential diagnoses considered include but are not limited to delirium, dementia, intracranial hemorrhage, CVA, pneumonia, ACS, intra-abdominal infection, electrolyte derangements, digoxin toxicity. Ruling out the most morbid conditions drove assessment. It should be noted patient's history includes atrial fibrillation, hypertension, hyperlipidemia which may or may not be at goal therapy. This complicates all aspects of care by increasing patient's risk for morbidity. I reviewed patient's past medical records and noted recent admission as detailed in HPI. She was admitted 03/13/2024 through 03/21/2024, at which time she was discharged to the care of her daughter. 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 Hospital course was complicated by septic shock, respiratory failure with concern for hospital-acquired pneumonia, elevated troponin/BNP, acute on chronic anemia, and delirium On exam, the patient is sitting upright in bed in no acute distress with reassuring vital signs on cardiac telemetry. She is disoriented but is conversational and pleasant. I had an interactive discussion with the hospitalist who advised that at baseline, she was not completely alert and oriented. EKG obtained is consistent with digoxin use. Her daughter has been managing her medications at home. Patient states that her daughter has not been feeding her, but daughter remains adamant that she has had [id number] care at home. workup included broad lab evaluation to evaluate for infectious, metabolic, cardiac causes as well as CT head without contrast, CT chest, CT abdomen pelvis with contrast. I independently interpreted CT of the head without contrast prior to the radiologist read and noted no acute intracranial hemorrhage or space-occupying lesion. Please see their read for final interpretation. Patient has nonoccluding left pulmonary embolus, moderate bilateral pleural effusions, groundglass opacities, multiple pelvic fluid collections including 1 the radiologist believes is intrauterine, colitis, inflammation of the pancreas. Labs were obtained that demonstrated stable anemia, elevation in CRP with normal white count and lactic acid, normal procalcitonin. Patient does have elevated lipase greater than 600. BNP is elevated but down from admission. Initial troponin 0.03. She also had mild hypomagnesemia and hypokalemia. Urine is concerning for infection. Interventions here included IV vancomycin, Zosyn, IV magnesium, oral potassium replacement, therapeutic Lovenox. Patient was given a liter bolus of IV fluids because she looked clinically dry and had tachycardia in the setting of acute illness. She does not truly meet sepsis criteria, and even if she did sepsis bolus would not be administered given history of cardiac dysfunction. I had a discussion over the phone with the patient's daughter who seems appropriate, and hospitalist advised that the daughter was appropriate when the patient was here. Ultimately given her multiple acute issues, I feel she would benefit from admission for continued management. I had an interactive discussion with the hospitalist who advised that she felt the patient would be appropriate for transfer to higher level of care with IR potential should the patient need IR drainage of her fluid collections. I had an interactive discussion with Dr. Hurtado with general surgery who advised the patient likely does not need acute intervention for these, however if they get bigger she may need something like that. Given this, I tried to initiate transfer to higher level of care. I had an interactive discussion with Dr. Guzman at [facility] who advised that he cannot override divert for this patient since is not a surgical emergency. Patient care was signed to the oncoming provider, Dr. Santiago, at 2330 pending potential transfer elsewhere. <Tawanna Santiago MD - Last Filed: 03/27/24 02:14> Vital Signs: 03/26/24 18:56 03/26/24 19:25 03/26/24 19:30 Temperature 98.4 F Temperature Source Oral Pulse Rate 96 H 98 H Pulse Rate [Right Radial] 95 H Respiratory Rate 18 18 21 Blood Pressure 164/90 H 148/85 H Blood Pressure [Right Arm] 155/95 H Blood Pressure Mean 119 106 Blood Pressure Mean [Right Arm] 115 02 Sat by Pulse Oximetry 97 95 98 Oxygen Delivery Method Room Air Room Air Room Air 03/26/24 19:45 03/26/24 20:16 03/26/24 20:26 Temperature Temperature Source Pulse Rate 98 H 98 H 99 H Pulse Rate [Right Radial] Respiratory Rate 22 20 25 H Blood Pressure 176/99 H 182/103 H 171/92 H Blood Pressure [Right Arm] Blood Pressure Mean 121 129 118 Blood Pressure Mean [Right Arm] 02 Sat by Pulse Oximetry 98 98 98 Oxygen Delivery Method Room Air Room Air Room Air 03/26/24 20:27 03/26/24 20:28 03/26/24 20:31 Temperature Temperature Source Pulse Rate 99 H 99 H 112 H Pulse Rate [Right Radial] Respiratory Rate 26 H 25 H 26 H Blood Pressure 167/93 H 161/95 H 161/99 H Blood Pressure [Right Arm] Blood Pressure Mean 120 112 113 Blood Pressure Mean [Right Arm] 02 Sat by Pulse Oximetry 99 99 98 Oxygen Delivery Method Room Air Room Air Room Air 03/26/24 20:45 03/26/24 21:01 03/26/24 21:15 Temperature Temperature Source Pulse Rate 98 H 100 H Pulse Rate [Right Radial] Respiratory Rate 23 35 H Blood Pressure 173/125 H 186/99 H 181/102 H Blood Pressure [Right Arm] Blood Pressure Mean 138 128 128 Blood Pressure Mean [Right Arm] 02 Sat by Pulse Oximetry 100 98 98 Oxygen Delivery Method Room Air Room Air Room Air 03/26/24 21:30 03/26/24 21:45 03/26/24 22:01 Temperature Temperature Source Pulse Rate 103 H 99 H 100 H Pulse Rate [Right Radial] Respiratory Rate 35 H Blood Pressure 180/98 H 169/90 H 176/107 H Blood Pressure [Right Arm] Blood Pressure Mean 125 129 130 Blood Pressure Mean [Right Arm] 02 Sat by Pulse Oximetry 98 98 97 Oxygen Delivery Method Room Air Room Air Room Air 03/26/24 22:15 03/26/24 22:30 03/26/24 22:45 Temperature Temperature Source Pulse Rate 101 H 101 H Pulse Rate [Right Radial] Respiratory Rate 25 H 26 H 25 H Blood Pressure 179/104 H 185/96 H 167/90 H Blood Pressure [Right Arm] Blood Pressure Mean 122 125 118 Blood Pressure Mean [Right Arm] 02 Sat by Pulse Oximetry 97 97 96 Oxygen Delivery Method Room Air Room Air Room Air 03/26/24 23:00 03/26/24 23:15 03/26/24 23:30 Temperature Temperature Source Pulse Rate 101 H 101 H Pulse Rate [Right Radial] Respiratory Rate 25 H 25 H 25 H Blood Pressure 161/82 H 161/83 H 145/81 H Blood Pressure [Right Arm] Blood Pressure Mean 108 109 102 Blood Pressure Mean [Right Arm] 02 Sat by Pulse Oximetry 96 96 96 Oxygen Delivery Method Room Air Room Air Room Air 03/26/24 23:45 03/27/24 00:00 03/27/24 00:15 Temperature Temperature Source Pulse Rate 101 H 99 H 100 H Pulse Rate [Right Radial] Respiratory Rate 30 H 30 H 28 H Blood Pressure 149/82 H 161/92 H 169/101 H Blood Pressure [Right Arm] Blood Pressure Mean 104 113 112 Blood Pressure Mean [Right Arm] 02 Sat by Pulse Oximetry 96 Oxygen Delivery Method Room Air 03/27/24 00:30 03/27/24 00:45 03/27/24 01:00 Temperature Temperature Source Pulse Rate 100 H 100 H 100 H Pulse Rate [Right Radial] Respiratory Rate 32 H 32 H 22 Blood Pressure 170/97 H 168/99 H 160/109 H Blood Pressure [Right Arm] Blood Pressure Mean 109 121 126 Blood Pressure Mean [Right Arm] 02 Sat by Pulse Oximetry 96 95 95 Oxygen Delivery Method Room Air Room Air Room Air 03/27/24 01:15 Temperature Temperature Source Pulse Rate 108 H Pulse Rate [Right Radial] Respiratory Rate 30 H Blood Pressure 162/99 H Blood Pressure [Right Arm] Blood Pressure Mean 118 Blood Pressure Mean [Right Arm] 02 Sat by Pulse Oximetry 98 Oxygen Delivery Method Room Air Lab Data Lab Results 03/26/24 19:10: VBG pH 7.49 H, VBG pCO2 20.4 L, VBG pO2 49.2 H, VBG HCO3 15.0 L, VBG Total CO2 15.6 L, VBG O2 Saturation 87.3 H, VBG Base Excess -8.4 L, VBG Lactic Acid 1.0 03/26/24 19:13: WBC 8.4, RBC 3.63 L, Hgb 9.4 L, Hct 28.9 L, MCV 79.6 L, MCH 25.9 L, MCHC 32.5, RDW 19.0 H, Plt Count 756 H, MPV 9.5, Neut % (Auto) 71.0, Lymph % (Auto) 15.8, Nicholas % (Auto) 11.8 H, Eos % (Auto) 0.4, Baso % (Auto) 0.4, Neut # (Auto) 6.0, Lymph # (Auto) 1.3, Nicholas # (Auto) 1.0, Eos # (Auto) 0.0, Baso # (Auto) 0.0, ESR 91 H, PT 13.5 H, INR 1.23 H, APTT 33.3 H, Sodium 132 L, Potassium 3.4 L, Chloride 104, Carbon Dioxide 21 L, Anion Gap 10.4, BUN 10, Creatinine 0.70, Estimated Creat Clear 40, Estimated GFR 81, Est GFR ( Amer) 98, Glucose 109 H, Calcium 8.2 L, Magnesium 1.5 L, Total Bilirubin 0.7, AST 46 H, ALT 59, Alkaline Phosphatase 115, Troponin I 0.03, NT-Pro-B Natriuret Pep 2340 H, Total Protein 5.9 L, Albumin 2.9 L, Globulin 3.0, Albumin/Globulin Ratio 1.0 L, Lipase 608 H, Procalcitonin 0.117, TSH 4.00, Thyroxine (T4) 8.8, Digoxin < 0.40 03/26/24 19:35: Ammonia < 9 L 03/26/24 20:18: Urine Color Yellow, Urine Appearance Clear, Urine pH 6.5, Ur Specific [place] 1.010, Urine Protein Negative, Urine Glucose (UA) Negative, Urine Ketones Negative, Urine Blood 1+ A, Urine Nitrate Negative, Urine Bilirubin Negative, Urine Urobilinogen 0.2, Ur Leukocyte Esterase 2+ A, Urine RBC 50-100, Urine WBC Tntc, Ur Squamous Epith Cells 20-50, Urine Bacteria 3+, Urine Opiates Screen Negative, Urine Methadone Screen Negative, Ur Barbituates Screen Negative, Ur Phencyclidine Scrn Negative, Ur Amphetamines Screen Negative, U Benzodiazepines Scrn Negative, Urine Cocaine Screen Negative, U Marijuana (THC) Screen Negative 03/26/24 22:41: Lactate 0.8, Troponin I 0.03, C-Reactive Protein 173.7 H 03/27/24 01:22: Troponin I 0.03 Orders (Tests/Meds): ED MEDICATIONS Generic Name Dose Route Start Last Admin Trade Name Freq PRN Reason Stop Dose Admin Miscellaneous 1 each 03/26/24 21:45 03/26/24 22:09 Vancomycin Consult Request NOTAPPLIC 04/25/24 21:44 Not Given CONSULT PHARMACY [facility] Sodium Chloride 10 ml 03/26/24 19:59 03/26/24 20:00 Sodium Chloride 0.9% 10ml Syr (Rad Only) IV 04/25/24 19:58 10 ml NEEDED PRN Administration Maintain IV Site Discontinued Medications Generic Name Dose Route Start Last Admin Trade Name Freq PRN Reason Stop Dose Admin Enoxaparin Sodium 55 mg 03/26/24 22:00 Enoxaparin 100mg/Ml Syringe 1 mg/kg (55 mg) 04/25/24 21:59 SUBCUT Q12H [facility] Enoxaparin Sodium 55 mg 03/26/24 21:57 03/26/24 22:31 Enoxaparin 100mg/Ml Syringe 1 mg/kg (55 mg) 03/26/24 21:58 55 mg SUBCUT Administration ONCE ONE Lactated Ringer's 1,000 mls @ 999 mls/hr 03/26/24 20:18 03/26/24 20:38 Lactated Ringer's 1000 Ml Bag IV 03/26/24 21:18 999 mls/hr .Q1H1M ONE Administration Magnesium Sulfate 2 gm in 50 mls @ 50 mls/hr 03/26/24 20:18 03/26/24 20:38 Magnesium Sulfate 2gm/50ml Premix IV 03/26/24 21:17 50 mls/hr ONCE ONE Administration Piperacillin Sod/Tazobactam 50 mls @ 100 mls/hr 03/26/24 21:43 03/26/24 22:11 Sod 3.375 gm/ Sodium Chloride IV 03/26/24 22:12 100 mls/hr ONCE ONE Administration Vancomycin/PEG/NADA/Lysine/Water 1.25 gm in 250 mls @ 125 mls/hr 03/26/24 22:00 03/26/24 22:48 Vancomycin 1.25gm/250ml (Peg) Premix IV 03/26/24 23:59 125 mls/hr ONCE ONE Administration Iopamidol 80 ml 03/26/24 19:59 03/26/24 20:00 Iopamidol-370 (76%);100ml Bottle IV 03/26/24 20:00 80 ml ONCE ONE Administration Potassium Chloride 40 meq 03/26/24 20:18 03/26/24 20:38 Potassium Chloride 20meq Tab PO 03/26/24 20:19 40 meq ONCE ONE Administration Sodium Chloride 50 ml 03/26/24 19:59 03/26/24 20:00 0.9 % Sodium Chloride 50 Ml Vial IV 03/26/24 20:00 50 ml ONCE ONE Administration ORDERS Category Date Time Status CT abdomen pelvis w con Stat Cat Scan 03/26/24 19:[address] angio chest PE protocol Stat Cat Scan 03/26/24 19:[address] head/brain wo con Stat Cat Scan 03/26/24 19:10 Completed Ammonia Stat Lab 03/26/24 19:35 Completed BNP [NT Pro Brain Natriuretic Pep.] Stat Lab 03/26/24 19:13 Completed CRP [C-Reactive Protein] Stat Lab 03/26/24 22:41 Completed Complete Blood Count Auto Diff Stat Lab 03/26/24 19:13 Completed Comprehensive Metabolic Panel Stat Lab 03/26/24 19:13 Completed DIG [Digoxin] Stat Lab 03/26/24 19:13 Completed ESR [Erythrocyte Sedimentation Rate] Stat Lab 03/26/24 19:13 Completed Lactic Acid Stat Lab 03/26/24 22:41 Completed Lipase Stat Lab 03/26/24 19:13 Completed MAG [Magnesium] Stat Lab 03/26/24 19:13 Completed PT INR [Prothrombin Time INR] Stat Lab 03/26/24 19:13 Completed PTT [Activated Partial Thrombo Time] Stat Lab 03/26/24 19:13 Completed Procalcitonin Stat Lab 03/26/24 19:13 Completed T4 (Thyroxine) Stat Lab 03/26/24 19:13 Completed TSH [Thyroid Stimulating Hormone] Stat Lab 03/26/24 19:13 Completed Trop I [Troponin I] Stat Lab 03/26/24 19:13 Completed Troponin I Q3H Lab 03/26/24 22:41 Completed Troponin I Q3H Lab 03/27/24 01:22 Completed UA [Urinalysis and Microscopic] Stat Lab 03/26/24 20:18 Completed UDS [Drug Screen,Urine] Stat Lab 03/26/24 20:18 Completed Blood Culture Stat Micro 03/26/24 Received Urine Culture Stat Micro 03/26/24 20:18 Received VBG [Venous Blood Gas] Stat RT 03/26/24 19:10 Completed Medical Decision Narrative: In summary, this patient is a 78-year-old female presenting to the Emergency Department for evaluation of altered mental status. She reports twinges of chest pain and states that she is not being fed at home, however her daughter is adamant that she is being fed and cared for. Her daughter has been managing her medications, feeding her, and checking vital signs which have been normal. Family is staying with her when her daughter is at work. Differential diagnoses considered include but are not limited to delirium, dementia, intracranial hemorrhage, CVA, pneumonia, ACS, intra-abdominal infection, electrolyte derangements, digoxin toxicity. Ruling out the most morbid conditions drove assessment. It should be noted patient's history includes atrial fibrillation, hypertension, hyperlipidemia which may or may not be at goal therapy. This complicates all aspects of care by increasing patient's risk for morbidity. I reviewed patient's past medical records and noted recent admission as detailed in HPI. She was admitted 03/13/2024 through 03/21/2024, at which time she was discharged to the care of her daughter. 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 Hospital course was complicated by septic shock, respiratory failure with concern for hospital-acquired pneumonia, elevated troponin/BNP, acute on chronic anemia, and delirium On exam, the patient is sitting upright in bed in no acute distress with reassuring vital signs on cardiac telemetry. She is disoriented but is conversational and pleasant. I had an interactive discussion with the hospitalist who advised that at baseline, she was not completely alert and oriented. EKG obtained is consistent with digoxin use. Her daughter has been managing her medications at home. Patient states that her daughter has not been feeding her, but daughter remains adamant that she has had [id number] care at home. workup included broad lab evaluation to evaluate for infectious, metabolic, cardiac causes as well as CT head without contrast, CT chest, CT abdomen pelvis with contrast. I independently interpreted CT of the head without contrast prior to the radiologist read and noted no acute intracranial hemorrhage or space-occupying lesion. Please see their read for final interpretation. Patient has nonoccluding left pulmonary embolus, moderate bilateral pleural effusions, groundglass opacities, multiple pelvic fluid collections including 1 the radiologist believes is intrauterine, colitis, inflammation of the pancreas. Labs were obtained that demonstrated stable anemia, elevation in CRP with normal white count and lactic acid, normal procalcitonin. Patient does have elevated lipase greater than 600. BNP is elevated but down from admission. Initial troponin 0.03. She also had mild hypomagnesemia and hypokalemia. Urine is concerning for infection. Interventions here included IV vancomycin, Zosyn, IV magnesium, oral potassium replacement, therapeutic Lovenox. Patient was given a liter bolus of IV fluids because she looked clinically dry and had tachycardia in the setting of acute illness. She does not truly meet sepsis criteria, and even if she did sepsis bolus would not be administered given history of cardiac dysfunction. I had a discussion over the phone with the patient's daughter who seems appropriate, and hospitalist advised that the daughter was appropriate when the patient was here. Ultimately given her multiple acute issues, I feel she would benefit from admission for continued management. I had an interactive discussion with the hospitalist who advised that she felt the patient would be appropriate for transfer to higher level of care with IR potential should the patient need IR drainage of her fluid collections. I had an interactive discussion with Dr. Hurtado with general surgery who advised the patient likely does not need acute intervention for these, however if they get bigger she may need something like that. Given this, I tried to initiate transfer to higher level of care. I had an interactive discussion with Dr. Guzman at [facility] who advised that he cannot override divert for this patient since is not a surgical emergency. Patient care was signed to the oncoming provider, Dr. Santiago, at 2330 pending potential transfer elsewhere. Report: Upon my assumption of care patient is stable, resting more comfortably at this time, she continues to be mildly altered but pleasant as described by Dr. Saunders. I reviewed labs and imaging and agree with the assessment and plan. At this time, [facility] is unable to accept this patient, I did speak with Dr. Floyd the hospitalist at [facility], they are placing the patient on a wait list but unable to accept the patient directly at this time. Patient has also been placed on a wait list at [facility] Awaiting a callback from [facility] at this time. Due to statements made by the patient repeatedly as documented above, staff did notify [facility]PS. 0210 received a call back from hospitalist Dr. Nguyen. After discussing the case, she graciously accepted the patient however they also do not have bed availability at this time and the patient was placed on a wait list. Since patient is listed for transfer at multiple facilities but none of them anticipate any availability until much later in the day or the following days, I believe patient is appropriate for admission at this time. I discussed this case with the hospitalist who accepted the patient for admission until transfer facility bed becomes available. Critical Care <Isa Saunders, DO - Last Filed: 03/26/24 23:57> Critical Care Time Critical Care Time: Yes Attestation: On 03/26/24, the high probability of a clinically significant, sudden or life threatening deterioration of the following system(s) required my full and direct attention, intervention and personal management. The time I documented below is in addition to time spent performing reported procedures but includes the following listed in this critical care notation. Total Time Total Critical Care Time: 45
--- NOTE | 2024-03-26 20:10 | PC.NURSE ---
pt back in room from scans
[2024-03-26 20:25] LABS: Digoxin < 0.40 ng/ml (0.2-2.00)
[2024-03-26 20:34] LABS: VBG Base Excess -8.4 mmol/L (-2.4-2.3); VBG Oxygen Saturation 87.3 % (50-70); VBG PH 7.49 mmol/L (7.31-7.41); VBG PO2 49.2 mmol/L (28-40); VBG Total CO2 15.6 mmol/L (23-27)
[2024-03-26 20:35] LABS: VBG PCO2 20.4 mmol/L (35-51)
[2024-03-26] MEDS: MAGNESIUM SULFATE IN WATER 2 GM/50 ML PIGGYBACK IV (20:38)
[2024-03-26] MEDS: POTASSIUM CHLORIDE 20MEQ TAB 40 MEQ PO (20:38)
[2024-03-26] MEDS: LACTATED RINGERS 1000ML 1,000 ML 999 ML IV (20:38)
[2024-03-26 20:44] LABS: Microscopic, Urine URINE MICROSCOPIC (MICROSCOPIC)
[2024-03-26 20:50] LABS: Appearance,Urine CLEAR (Clear); Bilirubin,Urine Negative (Negative); Blood, Urine 1+ (Negative); Color,Urine YELLOW (Yellow); Glucose,Urine (UA) Negative (Negative); Ketones,Urine Negative (Negative); Leukocyte Esterase,Urine 2+ (Negative); Nitrate,Urine Negative (Negative); PH,Urine 6.5 (5.0-8.5); Protein,Urine Negative (Negative); Urobilinogen,Urine 0.2 EU/dl (0.2)
[2024-03-26 20:59] LABS: Benzodiazepines Screen,Urine Negative ng/ml (<200)
[2024-03-26 21:00] LABS: Amphetamine/Metha Screen,Urine Negative ng/ml (<1000); Barbiturates Screen,Urine Negative ng/ml (<200)
[2024-03-26 21:01] LABS: Methadone Screen,Urine Negative ng/ml (<300)
[2024-03-26 21:02] LABS: Cannabinoid Screen,Urine Negative ng/ml (<50); Cocaine Screen,Urine Negative ng/ml (<300)
[2024-03-26 21:03] LABS: Opiate Screen,Urine Negative ng/ml (<300)
[2024-03-26 21:04] LABS: Bacteria,Urine 3+ /lpf; Phencyclidine Screen,Urine Negative ng/ml (<25); RBC,Urine 50-100 #/hpf (0-3); Squamous Epithelial Cell,Urine 20-50 #/hpf (0-5); WBC,Urine TNTC #/hpf (0-3)
--- NOTE | 2024-03-26 21:49 | PC.NURSE ---
awaiting blood clutures before starting abx
--- NOTE | 2024-03-26 21:50 | PC.NURSE ---
Had interventional cardiologist surgeon paged for this patient. Dr. Haro on the phone with Dr. Saunders at this time.
--- NOTE | 2024-03-26 22:09 | PC.NURSE ---
Contacted [facility] over transfer for this patinet, they will be calling us back
[2024-03-26] MEDS: PIPERACILLIN/TAZO 3.375 GM in 0.9 % SODIUM CHLORIDE 50 ML IV (22:11)
[2024-03-26 22:14] LABS: Procalcitonin 0.117 ng/mL (0.0-2.0)
--- NOTE | 2024-03-26 22:28 | PC.NURSE ---
Dr. Saunders on with Dr. Guzman
[2024-03-26] MEDS: ENOXAPARIN 100MG/ML SYRINGE 55 MG SUBCUT (22:31)
--- NOTE | 2024-03-26 22:32 | PC.NURSE ---
2 sets of Blood Cultures sent at 2126
[2024-03-26] MEDS: VANCOMYCIN/WATER FOR INJ (PEG) 1.25 GM/250 ML PIGGYBACK IV (22:48)
--- NOTE | 2024-03-26 22:55 | PC.NURSE ---
Patient was provided moistened mouth swab for her mouth.
[2024-03-26 22:57] LABS: Lactic Acid 0.8 mmol/L (0.7-2.1)
[2024-03-26 23:06] LABS: C-Reactive Protein 173.7 mg/L (0-4)
[2024-03-26 23:10] LABS: Troponin I 0.03 ng/ml (0.00-0.034)
[2024-03-26 23:16] LABS: Erythrocyte Sedimentation Rate 91 mm/hr (0-30)
--- NOTE | 2024-03-26 23:31 | PC.NURSE ---
Reached out to [facility] through [facility] and as I was calling [facility] returned our phone call declining the patient
--- NOTE | 2024-03-26 23:38 | PC.NURSE ---
Contacted [facility] regarding transfer for this patient she was wait listed at this facility.
[2024-03-27] VITALS (15 sets, daily range): BP systolic 126–170; BP diastolic 68–109; PULSE 77–111; RESP 16–32; TEMP 36.5–37; O2SAT 94–98; BMI 25.2
--- NOTE | 2024-03-27 00:01 | PC.NURSE ---
Contacted [facility] regarding transfer for this patient, they stated they have an extensive wait list. Patient placed on a wait list. They needed a face sheet with an SSN number. Timed @1207
--- NOTE | 2024-03-27 00:04 | PC.NURSE ---
Contacted [facility] regarding transfer for this patient. They will be reaching out to hospitalist medicine and calling back.
--- NOTE | 2024-03-27 00:48 | PC.NURSE ---
Contacted Adult Protective Services Hotline at request of maintenance service technicianAMADOR Dutta, gave them all info the patient has stated to the team of caregivers she has had. Also, I referred to the Physicians note provided by Dr. Saunders for statements she made to the Physician. [facility]PS Report #[id number].
--- NOTE | 2024-03-27 01:22 | PC.NURSE ---
Santiago speaking with [facility] at this time
--- NOTE | 2024-03-27 01:23 | PC.NURSE ---
Green top sent to lab at 0122hrs
--- NOTE | 2024-03-27 01:34 | PC.NURSE ---
Assisted pt to the restroom
[2024-03-27 01:49] LABS: Troponin I 0.03 ng/ml (0.00-0.034)
--- NOTE | 2024-03-27 02:04 | PC.NURSE ---
[facility] contacted us back Dr. Santiago on with Dr. Nguyen.
--- NOTE | 2024-03-27 02:15 | PC.NURSE ---
Contacted [employer] [facility] for a bed for this patient.
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
--- NOTE | 2024-03-27 02:34 | PC.NURSE ---
report called to Sade RN at this time.
--- NOTE | 2024-03-27 02:46 | PC.NURSE ---
[facility] was paged at this time for a vancomycin consult for the patient. I spoke with Carisa; she stated that a previous consult was performed for the patient (per MAY) and the local pharmacy (here) will perform the next dose.
--- NOTE | 2024-03-27 02:59 | PC.NURSE ---
Patient arrived to floor via wheelchair from ED at 02:55.
[2024-03-27] MEDS: LACTATED RINGERS 1000ML 1,000 ML 75 ML IV (03:00)
--- NOTE | 2024-03-27 04:42 | PC.NURSE ---
Plastics Fabricator from [facility] called at this time to obtain a recent set of vital signs and the patient's current orientation status. She stated that they do not have a bed available at this time, but with more discharges pending today, they are hoping to take the patient in soon.
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
[2024-03-27] MEDS: PIPERACILLIN/TAZO 3.375 GM in 0.9 % SODIUM CHLORIDE 50 ML IV ×4 (05:38→23:09)
[2024-03-27 07:04] LABS: Basophils # 0.1 K/mm3 (0-0.2); Basophils % 0.5 % (0.1-2.0); Eosinophils % 0.1 % (0.1-12.0); Hemoglobin 9.1 g/dL (12.2-16.2); Lymphocytes # 1.4 K/mm3 (0.7-4.5); Mean Corpuscular HGB Conc 32.5 g/dL (31.8-35.4); Mean Corpuscular Hemoglobin 26.1 pg (27.0-31.2); Mean Corpuscular Volume 80.5 fl (81-99); Mean Platelet Volume 9.4 fl (7.4-10.4); Monocytes # 1.2 K/mm3 (0.1-1.0); Monocytes % 12.3 % (1.7-9.3); Neutrophils # 7.2 K/mm3 (1.8-7.8); Neutrophils % 72.6 % (37.0-80.0); Platelet Count 756 K/mm3 (142-424); Red Blood Count 3.48 M/mm3 (4.20-5.40); Red Cell Distribution Width 19.1 % (11.5-17.5)
[2024-03-27 07:31] LABS: Anion Gap 13.3 mEq/L (5-15); Blood Urea Nitrogen 9 mg/dl (7-17); Calcium 7.6 mg/dl (8.4-10.2); Carbon Dioxide 19 mmol/L (22.0-30.0); Chloride 106 mmol/L (98-107); Creatinine Clearance Estimated 41 mL/min (50-200); Estimated Glomerular Filt Rate 81 ml/min (>60); GFR (African American) 98 ML/MIN (>60); Glucose 96 mg/dl (74-100); Potassium 3.3 mmoL/L (3.5-5.1); Sodium 135 mmol/L (136-145)
--- NOTE | 2024-03-27 07:40 | P.CONPHA_ITS ---
Pharmacy Consult Date: 03/27/24 Time: 07:41 Referring provider: DAIJA ADEN Reason for Consult:: VANCOMYCIN DOSING CONSULT Allergies Allergy/AdvReac Type Severity Reaction Status Date / Time No Known Allergies Allergy Verified 02/29/24 12:05 Home Medications ?Medication ?Instructions ?Recorded ?Confirmed ?Type aspirin 81 mg tablet,delayed 81 mg PO Q2D 12/31/19 03/27/24 History release (Adult Aspirin Regimen) digoxin 250 mcg (0.25 mg) tablet 125 mcg PO DAILY 12/31/19 03/27/24 History simvastatin 40 mg tablet 40 mg PO HS 12/04/20 03/27/24 History rivaroxaban 15 mg tablet 15 mg PO QPMWITHMEAL 07/19/23 03/27/24 History pantoprazole 40 mg tablet,delayed 40 mg PO HS 01/11/24 03/27/24 History release estradiol 0.01% (0.1 mg/gram) 0.5 appful vaginal .3x weekly 01/18/24 03/27/24 Rx vaginal cream (Estrace) #42.5 grams losartan 50 mg tablet 50 mg PO DAILY 03/09/24 03/27/24 History carvedilol 25 mg tablet 25 mg PO BID #60 tabs 03/21/24 03/27/24 Rx quetiapine 25 mg tablet 25 mg PO HS 10 days #10 tabs 03/21/24 03/27/24 Rx albuterol sulfate 90 mcg/actuation 90 mcg inhalation NEEDED PRN 03/27/24 03/27/24 History aerosol inhaler Wheezing New Prescriptions to Start Prescriptions: Height: 1.47 m Weight: 54.476 kg Laboratory Results:: Laboratory Results - last 24 hr 03/26/24 19:10: VBG pH 7.49 H, VBG pCO2 20.4 L, VBG pO2 49.2 H, VBG HCO3 15.0 L, VBG Total CO2 15.6 L, VBG O2 Saturation 87.3 H, VBG Base Excess -8.4 L, VBG Lactic Acid 1.0 03/26/24 19:13: WBC 8.4, RBC 3.63 L, Hgb 9.4 L, Hct 28.9 L, MCV 79.6 L, MCH 25.9 L, MCHC 32.5, RDW 19.0 H, Plt Count 756 H, MPV 9.5, Neut % (Auto) 71.0, Lymph % (Auto) 15.8, [place] % (Auto) 11.8 H, Eos % (Auto) 0.4, Baso % (Auto) 0.4, Neut # (Auto) 6.0, Lymph # (Auto) 1.3, [place] # (Auto) 1.0, Eos # (Auto) 0.0, Baso # (Auto) 0.0, ESR 91 H, PT 13.5 H, INR 1.23 H, APTT 33.3 H, Sodium 132 L, Potassium 3.4 L, Chloride 104, Carbon Dioxide 21 L, Anion Gap 10.4, BUN 10, Creatinine 0.70, Estimated Creat Clear 40, Estimated GFR 81, Est GFR ( Amer) 98, Glucose 109 H, Calcium 8.2 L, Magnesium 1.5 L, Total Bilirubin 0.7, AST 46 H, ALT 59, Alkaline Phosphatase 115, Troponin I 0.03, NT-Pro-B Natriuret Pep 2340 H, Total Protein 5.9 L, Albumin 2.9 L, Globulin 3.0, Albumin/Globulin Ratio 1.0 L, Lipase 608 H, Procalcitonin 0.117, TSH 4.00, Thyroxine (T4) 8.8, Digoxin < 0.40 03/26/24 19:35: Ammonia < 9 L 03/26/24 20:18: Urine Color Yellow, Urine Appearance Clear, Urine pH 6.5, Ur Specific [place] 1.010, Urine Protein Negative, Urine Glucose (UA) Negative, Urine Ketones Negative, Urine Blood 1+ A, Urine Nitrate Negative, Urine Bi lirubin Negative, Urine Urobilinogen 0.2, Ur Leukocyte Esterase 2+ A, Urine RBC 50-100, Urine WBC Tntc, Ur Squamous Epith Cells 20-50, Urine Bacteria 3+, Urine Opiates Screen Negative, Urine Methadone Screen Negative, Ur Barbituates Screen Negative, Ur Phencyclidine Scrn Negative, Ur Amphetamines Screen Negative, U Benzodiazepines Scrn Negative, Urine Cocaine Screen Negative, U Marijuana (THC) Screen Negative 03/26/24 22:41: Lactate 0.8, Troponin I 0.03, C-Reactive Protein 173.7 H 03/27/24 01:22: Troponin I 0.03 03/27/24 06:39: WBC 10.0, RBC 3.48 L, Hgb 9.1 L, Hct 28.0 L, MCV 80.5 L, MCH 26.1 L, MCHC 32.5, RDW 19.1 H, Plt Count 756 H, MPV 9.4, Neut % (Auto) 72.6, Lymph % (Auto) 14.0, [place] % (Auto) 12.3 H, Eos % (Auto) 0.1, Baso % (Auto) 0.5, Neut # (Auto) 7.2, Lymph # (Auto) 1.4, [place] # (Auto) 1.2 H, Eos # (Auto) 0.0, Baso # (Auto) 0.1, Sodium 135 L, Potassium 3.3 L, Chloride 106, Carbon Dioxide 19 L, Anion Gap 13.3, BUN 9, Creatinine 0.70, Estimated Creat Clear 41, Estimated GFR 81, Est GFR ( Amer) 98, Glucose 96, Calcium 7.6 L 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: 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 (Updated 03/27/24 @ 02:37 by Daija Aden [facility]) Coronary artery disease Hospital-acquired pneumonia Microcytic anemia PAF (paroxysmal atrial fibrillation) Stercoral colitis Elevated troponin Sepsis Rupture of colon Anemia OAB (overactive bladder) Complete uterine prolapse with prolapse of anterior vaginal wall Hypertension Diastolic dysfunction HLD (hyperlipidemia) Abnormal echocardiogram Pneumonia Atelectasis of both lungs Pleural effusion, bilateral Dyspnea on exertion Chronic cough Shortness of Breath Hypertension High cholesterol Afib Assessment and Plan Assessment and plan all Dx Assessment and Plan for all problems:: Pharmacokinetic dosing service Objective: Age: 78 yo Serum creatinine: 1 mg/dL Height: 57.9 Inches Weight (kg): 54.476 Diagnosis: CYSTITIS Assessment: IBW (kg): 43.91 Dosing wt(kg): 54.476 Estimated Creatinine clearance (ml/min): 33.2 CRCL method: Cockcroft and Gault using ibw(default). Drug selected: Vancomycin Loading dose (mg): 1250 MG Vd (liters): 38.1 (factor used: 0.7 L/kg) Pancho (hr-1): 0.032 Half life (hrs): 21.66 CLvanco=?? 1.219 L/hr Recommended dose: 1000 mg Interval: 36 hrs Infusion time (hrs): 2.0 Predicted peak (mcg/mL): 37.2 Predicted trough (mcg/mL): 12.53 Total body weight is being used for vancomycin dosing. Recommendations: Give Vancomycin 1000 mg q 36 hrs with an expected Cpeak of 37.2 mcg/ml and an expected Ctrough of 12.53 mcg/ml TO START 03/28/24 AT 11:00, ONE TIME LOADING DOSE OF VANCOMYCIN IV 1250 MG GIVEN IN ED 03/26/24 AT 22:48. AUC 0-24 /EBONIE Data: BEONIE 0.5 mcg/mL:?? AUC/EBONIE:? 1093.8 EBONIE 1.0 mcg/mL:?? AUC/EBONIE:? 546.9 --------- EBONIE 1.5 mcg/mL:?? AUC/EBONIE:? 364.6 EBONIE 2.0 mcg/mL:?? AUC/EBONIE:? 273.4 Thank you for the consult
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
--- NOTE | 2024-03-27 10:51 | SW/DCPLANNER ---
Current Medications Piperacillin Sod/Tazobactam (Sod 3.375 gm/ Sodium Chloride) 50 mls @ 100 mls/hr IV Q6H [facility] Stop: 04/06/24 05:59 Last Admin: 03/27/24 05:38 Dose: 100 mls/hr Vancomycin HCl 1,000 mg/ (Sodium Chloride) 250 mls @ 125 mls/hr IV Q36H [facility] Stop: 04/07/24 10:59 Sodium Chloride (Sodium Chloride 0.9% 10ml Flush Syringe) 10 ml IV NEEDED PRN PRN Reason: Maintain IV Site Stop: 04/26/24 07:38 Sodium Chloride (Sodium Chloride 3% 15ml Neb) 3 ml IH ONCE PRN PRN Reason: INDUCE SPUTUM COLLECTION Stop: 04/26/24 09:47 Lab Results 03/26/24 19:10: VBG pH 7.49 H, VBG pCO2 20.4 L, VBG pO2 49.2 H, VBG HCO3 15.0 L, VBG Total CO2 15.6 L, VBG O2 Saturation 87.3 H, VBG Base Excess -8.4 L, VBG Lactic Acid 1.0 03/26/24 19:13: WBC 8.4, RBC 3.63 L, Hgb 9.4 L, Hct 28.9 L, MCV 79.6 L, MCH 25.9 L, MCHC 32.5, RDW 19.0 H, Plt Count 756 H, MPV 9.5, Neut % (Auto) 71.0, Lymph % (Auto) 15.8, [place] % (Auto) 11.8 H, Eos % (Auto) 0.4, Baso % (Auto) 0.4, Neut # (Auto) 6.0, Lymph # (Auto) 1.3, [place] # (Auto) 1.0, Eos # (Auto) 0.0, Baso # (Auto) 0.0, ESR 91 H, PT 13.5 H, INR 1.23 H, APTT 33.3 H, Sodium 132 L, Potassium 3.4 L, Chloride 104, Carbon Dioxide 21 L, Anion Gap 10.4, BUN 10, Creatinine 0.70, Estimated Creat Clear 40, Estimated GFR 81, Est GFR ( Amer) 98, Glucose 109 H, Calcium 8.2 L, Magnesium 1.5 L, Total Bilirubin 0.7, AST 46 H, ALT 59, Alkaline Phosphatase 115, Troponin I 0.03, NT-Pro-B Natriuret Pep 2340 H, Total Protein 5.9 L, Albumin 2.9 L, Globulin 3.0, Albumin/Globulin Ratio 1.0 L, Lipase 608 H, Procalcitonin 0.117, TSH 4.00, Thyroxine (T4) 8.8, Digoxin < 0.40 03/26/24 19:35: Ammonia < 9 L 03/26/24 20:18: Urine Color Yellow, Urine Appearance Clear, Urine pH 6.5, Ur Specific [place] 1.010, Urine Protein Negative, Urine Glucose (UA) Negative, Urine Ketones Negative, Urine Blood 1+ A, Urine Nitrate Negative, Urine Bilirubin Negative, Urine Urobilinogen 0.2, Ur Leukocyte Esterase 2+ A, Urine RBC 50-100, Urine WBC Tntc, Ur Squamous Epith Cells 20-50, Urine Bacteria 3+, Urine Opiates Screen Negative, Urine Methadone Screen Negative, Ur Barbituates Screen Negative, Ur Phencyclidine Scrn Negative, Ur Amphetamines Screen Negative, U Benzodiazepines Scrn Negative, Urine Cocaine Screen Negative, U Marijuana (THC) Screen Negative 03/26/24 22:41: Lactate 0.8, Troponin I 0.03, C-Reactive Protein 173.7 H 03/27/24 01:22: Troponin I 0.03 03/27/24 06:39: WBC 10.0, RBC 3.48 L, Hgb 9.1 L, Hct 28.0 L, MCV 80.5 L, MCH 26.1 L, MCHC 32.5, RDW 19.1 H, Plt Count 756 H, MPV 9.4, Neut % (Auto) 72.6, Lymph % (Auto) 14.0, [place] % (Auto) 12.3 H, Eos % (Auto) 0.1, Baso % (Auto) 0.5, Neut # (Auto) 7.2, Lymph # (Auto) 1.4, [place] # (Auto) 1.2 H, Eos # (Auto) 0.0, Baso # (Auto) 0.1, Sodium 135 L, Potassium 3.3 L, Chloride 106, Carbon Dioxide 19 L, Anion Gap 13.3, BUN 9, Creatinine 0.70, Estimated Creat Clear 41, Estimated GFR 81, Est GFR ( Amer) 98, Glucose 96, Calcium 7.6 L Vitals 03/26/24 18:56 03/26/24 19:25 03/26/24 19:30 Temperature 98.4 F Pulse Rate 96 H 98 H Pulse Rate [Right Radial] 95 H Respiratory Rate 18 18 21 Blood Pressure 164/90 H 148/85 H Blood Pressure [Right Arm] 155/95 H 02 Sat by Pulse Oximetry 97 95 98 Oxygen Delivery Method Room Air Room Air Room Air 03/26/24 19:45 03/26/24 20:16 03/26/24 20:26 Temperature Pulse Rate 98 H 98 H 99 H Pulse Rate [Right Radial] Respiratory Rate 22 20 25 H Blood Pressure 176/99 H 182/103 H 171/92 H Blood Pressure [Right Arm] 02 Sat by Pulse Oximetry 98 98 98 Oxygen Delivery Method Room Air Room Air Room Air 03/26/24 20:27 03/26/24 20:28 03/26/24 20:31 Temperature Pulse Rate 99 H 99 H 112 H Pulse Rate [Right Radial] Respiratory Rate 26 H 25 H 26 H Blood Pressure 167/93 H 161/95 H 161/99 H Blood Pressure [Right Arm] 02 Sat by Pulse Oximetry 99 99 98 Oxygen Delivery Method Room Air Room Air Room Air 03/26/24 20:45 03/26/24 21:01 03/26/24 21:15 Temperature Pulse Rate 98 H 100 H Pulse Rate [Right Radial] Respiratory Rate 23 35 H Blood Pressure 173/125 H 186/99 H 181/102 H Blood Pressure [Right Arm] 02 Sat by Pulse Oximetry 100 98 98 Oxygen Delivery Method Room Air Room Air Room Air 03/26/24 21:30 03/26/24 21:45 03/26/24 22:01 Temperature Pulse Rate 103 H 99 H 100 H Pulse Rate [Right Radial] Respiratory Rate 35 H Blood Pressure 180/98 H 169/90 H 176/107 H Blood Pressure [Right Arm] 02 Sat by Pulse Oximetry 98 98 97 Oxygen Delivery Method Room Air Room Air Room Air 03/26/24 22:15 03/26/24 22:30 03/26/24 22:45 Temperature Pulse Rate 101 H 101 H Pulse Rate [Right Radial] Respiratory Rate 25 H 26 H 25 H Blood Pressure 179/104 H 185/96 H 167/90 H Blood Pressure [Right Arm] 02 Sat by Pulse Oximetry 97 97 96 Oxygen Delivery Method Room Air Room Air Room Air 03/26/24 23:00 03/26/24 23:15 03/26/24 23:30 Temperature Pulse Rate 101 H 101 H Pulse Rate [Right Radial] Respiratory Rate 25 H 25 H 25 H Blood Pressure 161/82 H 161/83 H 145/81 H Blood Pressure [Right Arm] 02 Sat by Pulse Oximetry 96 96 96 Oxygen Delivery Method Room Air Room Air Room Air 03/26/24 23:45 03/27/24 00:00 03/27/24 00:15 Temperature Pulse Rate 101 H 99 H 100 H Pulse Rate [Right Radial] Respiratory Rate 30 H 30 H 28 H Blood Pressure 149/82 H 161/92 H 169/101 H Blood Pressure [Right Arm] 02 Sat by Pulse Oximetry 96 Oxygen Delivery Method Room Air 03/27/24 00:30 03/27/24 00:45 03/27/24 01:00 Temperature Pulse Rate 100 H 100 H 100 H Pulse Rate [Right Radial] Respiratory Rate 32 H 32 H 22 Blood Pressure 170/97 H 168/99 H 160/109 H Blood Pressure [Right Arm] 02 Sat by Pulse Oximetry 96 95 95 Oxygen Delivery Method Room Air Room Air Room Air 03/27/24 01:15 03/27/24 02:19 03/27/24 02:35 Temperature 98.4 F Pulse Rate 108 H 108 H Pulse Rate [Right Radial] 108 H Respiratory Rate 30 H 22 26 H Blood Pressure 162/99 H 126/73 Blood Pressure [Right Arm] 02 Sat by Pulse Oximetry 98 94 L Oxygen Delivery Method Room Air Room Air Room Air 03/27/24 02:54 03/27/24 03:00 03/27/24 04:00 Temperature 97.7 F 98.2 F Pulse Rate Pulse Rate [Right Radial] 106 H 107 H Respiratory Rate 24 16 Blood Pressure Blood Pressure [Right Arm] 137/70 162/78 H 02 Sat by Pulse Oximetry 94 L 95 Oxygen Delivery Method Room Air Room Air Room Air 03/27/24 05:00 03/27/24 08:00 Temperature 98.3 F Pulse Rate Pulse Rate [Right Radial] 111 H Respiratory Rate 18 Blood Pressure Blood Pressure [Right Arm] 153/80 H 02 Sat by Pulse Oximetry 94 L Oxygen Delivery Method Room Air Room Air
--- NOTE | 2024-03-27 11:24 | HMH.PHAINT1 ---
Pharmacy Intervention Comments: VERIFIED AND CONFIRMED MEDICATIONS WITH OUTPATIENT PHARMACY.
[2024-03-27] MEDS: ENOXAPARIN 60MG/0.6ML SYRINGE 55 MG SUBCUT ×2 (12:17→22:39)
[2024-03-27] MEDS: SODIUM CHLORIDE 3% 15ML NEB 3 ML IH (13:00)
--- NOTE | 2024-03-27 15:39 | PC.NURSE ---
ao with episodes of confusion noted. able to make needs known to staff, tolerating diet well. ambulating with standby assist.
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
--- NOTE | 2024-03-27 18:12 | PC.NURSE ---
ESTHER CALLED AT THIS TIME, STILL NO BED AVAILABILITY FOR PATIENT.
--- NOTE | 2024-03-27 21:05 | EXP.EVENT.NO ---
After extensive conversation with Dr. Hurtado, patient's fluid collections x4 seen on CT do not seem to be commissary representative of abscesses or infected pockets, especially given no fever, leukocytosis. Will not need I&D at this time, can cancel transfer requests. Case management assisting with SNF placement.
[2024-03-28] VITALS: BP 139/79; PULSE 92; RESP 16; TEMP 37.5; O2SAT 93
[2024-03-28 04:00] VITALS: BP 156/77; PULSE 96; RESP 16; TEMP 36.9; O2SAT 95; BMI 26.1
[2024-03-28] MEDS: PIPERACILLIN/TAZO 3.375 GM in 0.9 % SODIUM CHLORIDE 50 ML IV ×2 (05:38→11:38)
[2024-03-28 07:45] VITALS: BP 168/92; PULSE 82; RESP 16; TEMP 36.8; O2SAT 93
[2024-03-28 08:45] LABS: Basophils % 0.4 % (0.1-2.0); Eosinophils % 0.2 % (0.1-12.0); Hematocrit 28.5 % (37.0-47.0); Hemoglobin 9.1 g/dL (12.2-16.2); Lymphocytes # 1.2 K/mm3 (0.7-4.5); Mean Corpuscular HGB Conc 31.9 g/dL (31.8-35.4); Mean Corpuscular Hemoglobin 25.6 pg (27.0-31.2); Mean Corpuscular Volume 80.1 fl (81-99); Mean Platelet Volume 8.7 fl (7.4-10.4); Monocytes # 0.9 K/mm3 (0.1-1.0); Monocytes % 11.4 % (1.7-9.3); Neutrophils # 5.8 K/mm3 (1.8-7.8); Neutrophils % 72.4 % (37.0-80.0); Platelet Count 828 K/mm3 (142-424); Red Blood Count 3.56 M/mm3 (4.20-5.40); Red Cell Distribution Width 18.8 % (11.5-17.5)
[2024-03-28 08:48] LABS: Albumin Level 2.5 g/dl (3.5-5.0); Chloride 105 mmol/L (98-107); Potassium 3.1 mmoL/L (3.5-5.1); Sodium 134 mmol/L (136-145)
[2024-03-28 08:51] LABS: Alanine Aminotransferase 42 U/L (12-78); Albumin/Globulin Ratio 0.9 (1.1-1.8); Alkaline Phosphatase 108 U/L (38-126); Anion Gap 10.1 mEq/L (5-15); Aspartate Amino Transferase 33 U/L (14-36); Bilirubin,Total 0.5 mg/dl (0.2-1.3); Blood Urea Nitrogen 8 mg/dl (7-17); Carbon Dioxide 22 mmol/L (22.0-30.0); Creatinine Clearance Estimated 43 mL/min (50-200); Estimated Glomerular Filt Rate 70 ml/min (>60); GFR (African American) 84 ML/MIN (>60); Globulin 2.8 g/dL (1.3-3.2); Total Protein,Serum 5.3 g/dl (6.3-8.2)
[2024-03-28 08:52] LABS: Calcium 7.7 mg/dl (8.4-10.2); Glucose 126 mg/dl (74-100); Magnesium 1.7 mg/dl (1.6-2.3)
[2024-03-28] MEDS: ENOXAPARIN 60MG/0.6ML SYRINGE 55 MG SUBCUT (08:59)
--- NOTE | 2024-03-28 09:27 | HMH.PTEV ---
Physical Therapy Evaluation Rehab PT IP Evaluation Start: 03/27/24 10:48 Freq: ONCE Status: Active Protocol: Document 03/28/24 09:16 PATEL (Rec: 03/28/24 09:26 PATEL [id number]) Subjective/History History History Per H&P: This is a 78-year- old female with a past medical history of CAD, proximal A- fib on digoxin and Xarelto, hypertension, hyperlipidemia with recent hospitalization for sterile coral colitis and sigmoid colon perforation status post colectomy with ostomy placement who presents emergency department today with complaints of altered mental status. EMS was called by the patient's daughter to be brought to the emergency department for confusion and generalized weakness. Subjective Subjective I haven't been fed or bathed since I left the hospital. They are keeping me here until I get better Pt reports she was living in her daughter's basement. Pt reports she does not own a RW and was IND with her mobility prior to hospitalization. New diagnosis of cancer in past 12 No months? Rehab PT IP Eval Objective Appearance Patient Behavior Appropriate,Cooperative Patient Orientation Person Difficulty following instructions none Speech Pattern Clear Ambulation Patient Able to Ambulate Yes Ambulation Observation IP General Gait Pattern Observation No Deviations/Normal Ambulation Distance (feet) 150 Ambulation Assistive Device Rolling Walker Ambulation Ability Supervision/Stand by,Contact Guard/Hand Hold Balance Ability to Arise Able, uses arms to help Sitting Balance Steady, safe Standing Balance Steady, wide stance Dynamic Sitting Balance Ability Good Dynamic Standing Balance Ability Good Transfers Bed Transfer Ability Supervision/Stand by Sit to Stand Bed Transfer Ability Contact Guard/Hand Hold Rehab PT IP prob,goals,plan Problems Date of Evaluation: 03/28/24 PT IP Problems Transfers,Gait,Balance,Self care,Safety Rehab Potential Rehab Potential Good Equipment Needs Assistive Devices Rolling / Wheeled Walker Plan PT Intervention Plan Transfers,Gait,Balance,Self care,Safety,Therapeutic Exercise Other Intervention Plan 1-2 times PT Plan Frequency Daily Duration LOS Discharge Goals Bed Transfer Ability Independent Sit to Stand Chair Transfer Ability Independent Ambulation Assistive Device Rolling Walker Ambulation Distance (feet) 250 Discharge Plan PT Discharge Plan Pt ambulated with close supervision when using RW. Pt' s static balance without UE support is fair. Pt is also a questionable historian d/t inconsistent subjective reports during history taking. With a combination of her current level of cognition and functional mobility, pt requires 24/7 supervision to maximize safety upon d/c from [facility]. If pt is not able to secure 24/7 assistance and supervision, pt needs short- term inpatient rehabilitation placement to maximize safety, return to PLOF, and decrease caregiver burden. Pt would benefit from skilled acute care PT while at [facility] to address deficits. Eval Complexity Eval Charge Codes 92207 - Moderate Complexity PHYSICIAN CERTIFICATION: I certify the specified therapy services for Alesha Szymanski are required, authorized, and reviewed every 30 days.
--- NOTE | 2024-03-28 09:53 | EXP.PULM.CON ---
History of Present Illness History of present illness: Ms. Szymanski is a 78-year-old female with no significant baseline respiratory complaints including to the hospital for for perforation S/p Repair questionable hospital-acquired pneumonia chest bilateral lower lobe atelectasis with effusion needing oxygen garments, eventually weaned to room air discharged home presented with complaining of worsening mentation. [facility] Disclaimer: The information contained in this section may have been updated after the patient was seen, as this information can be updated by other users. 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 Hypertension Diastolic dysfunction HLD (hyperlipidemia) Abnormal echocardiogram Atelectasis of both lungs Pleural effusion, bilateral Dyspnea on exertion Chronic cough Shortness of Breath Hypertension High cholesterol Afib Surgical History History of appendectomy Family History Other No significant family history Social History (Updated 03/27/24 @ 03:24 by Sade Hodgson RN) Smoking Status: Never smoker alcohol intake: never counseling provided: none (Patient does not smoke or use alcohol ) substance use type: denies use current occupational status: retired Travel in the last 8 weeks: None household members: family housing: house caffeine: Yes do you feel safe at home: Yes victim of physical abuse: No victim of emotional abuse: No victim of sexual abuse: No Have you lived/traveled outside [place] in past 30 days?: No Contact w/someone who lives/traveled outside [place] past 30 days?: No Exposure to someone with infectious disease in past 14 days?: No Do you have a fever (greater than 100.4 F or 38 C)?: No Have you tested positive for COVID-19: No Exposed to someone with COVID-19 in past 14 days?: No Do you have a sore throat?: No Do you have a cough?: No Do you have any weakness?: No Do you have any diarrhea?: No Are you experiencing any unusual bleeding?: No Do you have any muscle aches/pain?: No Do you have any abdominal pain?: No Are you experiencing loss of taste or smell?: No Review of Systems Constitutional Constitutional: Denies body ache(s), Denies fatigue and Reports weakness Eyes Eyes: Denies eye discharge, Denies dry eyes, Denies irritation and Denies itchy eyes ENT Ears, Nose, Mouth, and Throat: Denies epistaxis, Denies facial pain, Denies lip swelling and Denies throat swelling *Cardiovascular Cardiovascular: Reports dyspnea, Reports dyspnea on exertion, Reports leg edema and Reports orthopnea *Respiratory Respiratory: Denies change in phlegm color, Reports chest congestion, Reports cough, Reports dyspnea, Reports dyspnea on exertion, Reports excessive phlegm production, Denies hemoptysis, Denies pain on inspiration, Denies pain with cough and Denies wheezing *Gastrointestinal Gastrointestinal: Reports abdominal pain, Denies belching and Denies cramping Comments: Ostomy bag in place *Musculoskeletal Musculoskeletal: Reports back pain, Reports myalgias and Reports other (No small joint swelling or Pain) *Neurologic Neurologic: Reports weakness Psychiatric Psychiatric: Denies homicidal ideation and Denies suicidal ideation Endocrine Endocrine: Denies fatigue and Denies heat intolerance Hematologic/Lymphatic Hematologic/Lymphatic: Denies easy bleeding and Denies lymphadenopathy Allergic/Immunologic Allergic/Immunologic: Denies itchy eyes, Denies lip swelling, Denies throat swelling and Denies wheezing Pulmonology Exam Inpatient Vital signs and Labs for Last 24 Hours: Temp Pulse Resp BP Pulse Ox O2 Del Method 98.2 F 82 16 168/92 H 93 L Room Air 03/28/24 07:45 03/28/24 07:45 03/28/24 07:45 03/28/24 07:45 03/28/24 07:45 03/28/24 07:45 Laboratory Results - last 24 hr 03/28/24 08:32: WBC 8.0, RBC 3.56 L, Hgb 9.1 L, Hct 28.5 L, MCV 80.1 L, MCH 25.6 L, MCHC 31.9, RDW 18.8 H, Plt Count 828 H, MPV 8.7, Neut % (Auto) 72.4, Lymph % (Auto) 15.0, Teller % (Auto) 11.4 H, Eos % (Auto) 0.2, Baso % (Auto) 0.4, Neut # (Auto) 5.8, Lymph # (Auto) 1.2, Teller # (Auto) 0.9, Eos # (Auto) 0.0, Baso # (Auto) 0.0, Sodium 134 L, Potassium 3.1 L, Chloride 105, Carbon Dioxide 22, Anion Gap 10.1, BUN 8, Creatinine 0.80, Estimated Creat Clear 43, Estimated GFR 70, Est GFR ( Amer) 84, Glucose 126 H, Calcium 7.7 L, Magnesium 1.7 D, Total Bilirubin 0.5, AST 33 D, ALT 42 D, Alkaline Phosphatase 108, Total Protein 5.3 L, Albumin 2.5 L, Globulin 2.8, Albumin/Globulin Ratio 0.9 L I & O for Labs for Last 24 Hours: Intake & Output 03/25/24 03/26/24 03/27/24 03/28/24 23:59 23:59 23:59 23:59 Intake Total 270 / 320 580 / 580 Output Total 0 / 0 0 / 0 Balance 270 / 320 580 / 580 Weight 118 lb 120 lb 1.6 oz 124 lb 4.8 oz Microbiology Reports for the Last 24 Hours: Microbiology 03/26/24 20:18 Urine,Clean Catch Urine Culture - Final No growth. 03/26/24 Unknown Blood Blood Culture - Preliminary NO GROWTH AFTER 24 HOURS 03/26/24 Unknown Blood Blood Culture - Preliminary NO GROWTH AFTER 24 HOURS Constitutional: Present moderate distress Head: Present normocephalic and atraumatic ENT: Present normal exam, normal oropharynx and mucous membranes moist Neck: Present normal inspection and full ROM Respiratory: Present crackles, diminished air movement, normal respiratory effort and able to speak in complete sentences; Absent prolonged expiratory phase or wheezes Cardiac: Present S1/S2, Tachycardia and radial pulses present GI: Present soft and distention; Absent tenderness or guarding Rectal (female): Present deferred (female): Present deferred Skin: Present intact; Absent cyanosis or jaundice Neuro: Present alert, awake and oriented x 3 Extremities: Present normal inspection; Absent clubbing or cyanosis Psychiatric: Present normal affect and cooperative Meds Home Medications and Allergies Home Medications ?Medication ?Instructions ?Recorded ?Confirmed ?Type aspirin 81 mg tablet,delayed 81 mg PO MOWEFR 12/31/19 03/27/24 History release (Adult Aspirin Regimen) digoxin 250 mcg (0.25 mg) tablet 125 mcg PO DAILY 12/31/19 03/27/24 History simvastatin 40 mg tablet 40 mg PO HS 12/04/20 03/27/24 History rivaroxaban 15 mg tablet 15 mg PO QPMWITHMEAL 07/19/23 03/27/24 History pantoprazole 40 mg tablet,delayed 40 mg PO HS 01/11/24 03/27/24 History release estradiol 0.01% (0.1 mg/gram) 0.5 appful vaginal .3x weekly 01/18/24 03/27/24 Rx vaginal cream (Estrace) #42.5 grams losartan 50 mg tablet 50 mg PO DAILY 03/09/24 03/27/24 History carvedilol 25 mg tablet 25 mg PO BID #60 tabs 03/21/24 03/27/24 Rx quetiapine 25 mg tablet 25 mg PO HS 10 days #10 tabs 03/21/24 03/27/24 Rx albuterol sulfate 90 mcg/actuation 90 mcg inhalation NEEDED PRN 03/27/24 03/27/24 History aerosol inhaler Wheezing ferrous sulfate 325 mg (65 mg 325 mg PO DAILY 03/27/24 03/27/24 History iron) tablet metoprolol succinate 50 mg 50 mg PO DAILY 03/27/24 03/27/24 History tablet,extended release 24 hr verapamil 120 mg tablet,extended 120 mg PO BID 03/27/24 03/27/24 History release New Prescriptions to Start Prescriptions: Allergies Allergy/AdvReac Type Severity Reaction Status Date / Time No Known Allergies Allergy Verified 02/29/24 12:05 Results Laboratory Findings 03/28/24 08:32 03/28/24 08:32 PT/INR, D-dimer PT 13.5 seconds (10.1-12.5) H 03/26/24 19:13 INR 1.23 (0.9-1.1) H 03/26/24 19:13 Abnormal lab findings: Abnormal Labs 03/26/24 03/26/24 03/26/24 19:10 19:13 19:35 RBC 3.63 L Hgb 9.4 L Hct 28.9 L MCV 79.6 L MCH 25.9 L RDW 19.0 H Plt Count 756 H Teller % (Auto) 11.8 H Teller # (Auto) ESR 91 H PT 13.5 H INR 1.23 H APTT 33.3 H VBG pH 7.49 H VBG pCO2 20.4 L VBG pO2 49.2 H VBG HCO3 15.0 L VBG Total CO2 15.6 L VBG O2 Saturation 87.3 H VBG Base Excess -8.4 L Sodium 132 L Potassium 3.4 L Carbon Dioxide 21 L Glucose 109 H Calcium 8.2 L Magnesium 1.5 L AST 46 H Ammonia < 9 L C-Reactive Protein NT-Pro-B Natriuret Pep 2340 H Total Protein 5.9 L Albumin 2.9 L Albumin/Globulin Ratio 1.0 L Lipase 608 H Urine Blood Ur Leukocyte Esterase 03/26/24 03/26/24 03/27/24 20:18 22:41 06:39 RBC 3.48 L Hgb 9.1 L Hct 28.0 L MCV 80.5 L MCH 26.1 L RDW 19.1 H Plt Count 756 H Teller % (Auto) 12.3 H Teller # (Auto) 1.2 H ESR PT INR APTT VBG pH VBG pCO2 VBG pO2 VBG HCO3 VBG Total CO2 VBG O2 Saturation VBG Base Excess Sodium 135 L Potassium 3.3 L Carbon Dioxide 19 L Glucose Calcium 7.6 L Magnesium AST Ammonia C-Reactive Protein 173.7 H NT-Pro-B Natriuret Pep Total Protein Albumin Albumin/Globulin Ratio Lipase Urine Blood 1+ A Ur Leukocyte Esterase 2+ A 03/28/24 08:32 RBC 3.56 L Hgb 9.1 L Hct 28.5 L MCV 80.1 L MCH 25.6 L RDW 18.8 H Plt Count 828 H Teller % (Auto) 11.4 H Teller # (Auto) ESR PT INR APTT VBG pH VBG pCO2 VBG pO2 VBG HCO3 VBG Total CO2 VBG O2 Saturation VBG Base Excess Sodium 134 L Potassium 3.1 L Carbon Dioxide Glucose 126 H Calcium 7.7 L Magnesium AST Ammonia C-Reactive Protein NT-Pro-B Natriuret Pep Total Protein 5.3 L Albumin 2.5 L Albumin/Globulin Ratio 0.9 L Lipase Urine Blood Ur Leukocyte Esterase Assessment and Plan *Assessment and plan (1) Pulmonary embolism: Status: Acute Qualifiers: Pulmonary embolism type: single subsegmental (without acute cor pulmonale) Qualified Code(s): I26.93 - Single subsegmental thrombotic pulmonary embolism without acute cor pulmonale Category: Medical Code(s): I26.99 - Other pulmonary embolism without acute cor pulmonale (2) Pleural effusion: Status: Acute Category: Medical Code(s): J90 - Pleural effusion, not elsewhere classified (3) Pleural effusion, bilateral: Status: Acute Category: Medical Code(s): J90 - Pleural effusion, not elsewhere classified (4) Pneumonia: Status: Acute Category: Medical Code(s): J18.9 - Pneumonia, unspecified organism Plan Ms. Szymanski is a 78-year-old female with no significant baseline respiratory complaints including to the hospital for for perforation S/p Repair questionable hospital-acquired pneumonia chest bilateral lower lobe atelectasis with effusion needing oxygen garments, eventually weaned to room air discharged home presented with complaining of worsening mentation. CTA upon admission bilateral moderate pulmonary embolism with adjacent atelectasis. Bilateral moderate pleural effusion slightly worsened from her most recent hospital admission. With noted changes in the lingula right middle and lower lobes can well be from atelectasis however cannot completely rule out pneumonia especially in setting of other noted infiltrate. Procalcitonin within normal limits. Afebrile. Hemodynamically stable. No evidence of leukocytosis. Continue to remain on room air. Denies any known sick contacts. Patient complains of worsening cough and productive phlegm. Bilateral lower extremity edema 2+ Rt > Lt Plan: Wean antibiotics to levofloxacin pending sputum culture results from pulmonary standpoint Incentive spirometry and flutter valve Lasix 40 mg IV once Follow with lower extremity venous Doppler Continue full dose anticoagulation for likely provoked PE for at least 3 months. # Thank you for involving pulmonary in this patient care. Will continue to follow-up
--- NOTE | 2024-03-28 09:57 | CA_ITS ---
FINAL REPORT CLINICAL HISTORY: CAD, HLD, HTN, PE, AFIB, SOB, recent colectomy and ostomy placement beginning of this month. Patient states she takes Xarelto and 81 mg ASA daily but stopped for procedure. FINDINGS: Multiple transverse and longitudinal scans were performed of the femoral popliteal deep venous system, with augmentation and compression maneuvers. Normal phasic flow was noted in the visualized deep venous system. No intraluminal increased echogenicity is noted to suggest thrombus. There is normal compression and augmentation of the venous structures. No abnormal venous collaterals are seen. IMPRESSION: No evidence of deep venous thrombosis of the bilateral lower extremities. Reviewed, Interpreted and Dictated by Jessica Mosquera MD Transcribed by Mirta Diaz Authenticated and [facility]
[2024-03-28 11:18] VITALS: BP 178/97; PULSE 96; RESP 18; TEMP 36.6; O2SAT 96
[2024-03-28] MEDS: FUROSEMIDE 40MG/4ML VIAL 40 MG IV (12:13)
[2024-03-28] MEDS: VANCOMYCIN HCL 1,000 MG in 0.9 % SODIUM CHLORIDE 250 ML 125 MG IV (12:13)
[2024-03-28] MEDS: levoFLOXacin 750 MG TABLET PO (12:38)
--- NOTE | 2024-03-28 15:11 | P.DS_ITS ---
General Admission date:: 03/27/24 HPI HPI HPI: This is a 78-year-old female with a past medical history of CAD, proximal A-fib on digoxin and Xarelto, hypertension, hyperlipidemia with recent hospitalization for sterile coral colitis and sigmoid colon perforation status post colectomy with ostomy placement who presents emergency department today with complaints of altered mental status. EMS was called by the patient's daughter to be brought to the emergency department for confusion and generalized weakness. Patient's daughter who is a nurse resides with patient states that she has been eating and drinking normally with good ostomy output. She was concerned that she became confused out of nowhere since everything seem to be going normally. The patient herself had called EMS earlier today stating that she had been neglected it was not being looked after or fed while her daughter was at work. EMS eventually got a refusal because patient appeared well cared for. On further exam questioning she states that she has not been fed a square meal since going home from the hospital. She does state that she has been getting intermittent twinges of pain in her left chest and epigastric region. On prior hospitalization she suffered from extreme hospital delirium that did not resolve prior to discharge. On admission to the hospital she is awake alert but only oriented to person and place. Emergency Department workup notable for hypokalemia with a potassium of 3.4, mag of 1.5, elevated CRP of 173, lipase of 608, positive urinalysis with leuk esterase, pyuria and bacteria. Given substantial gastric surgery recently, CT was obtained and notable for multiple fluid collections adjacent to the uterus and adnexal regions that are new developed since March 17. Also notable distal transverse colon and descending colon and rectosigmoid colon consistent with colitis. CTA of her chest also notable for moderate bilateral pleural effusions as well as pulmonary emboli in the branch of the left upper lobe. Given her recent surgery, surgery was notified and states that due to her complicated medical history that she would be better served at a tertiary facility. Multiple hospitals were consulted for transfer. Patient has been accepted and waitlisted at the following facility: [facility] Floyd, wait list [facility]-waitlisted -Dr. Nguyen-waitlisted She has been hemodynamically stable. Broad-spectrum antibiotics initiated after blood cultures obtained. She is admitted to the hospital service at this time. Hospital Course Hospital Course Hospital Course: Alesha Szymanski is a 78-year-old female with a medical history significant for A-fib on Xarelto, aortic valve insufficiency, hypertension, GERD who presented for apparently not thriving at home after being discharged for recent hospital stay for sigmoid colon perforation. #Physical deconditioning ? Graciously accepted to [facility]. #Pulmonary embolism ? Found on CTA during admission. ? Eliquis 10 mg twice a day for 9 more days. Then 5 mg twice a day thereafter. Will need at least 3 months of anticoagulation for provoked PE. ? Follow-up with pulmonology within 2 weeks. #Acute hypoxic respiratory failure #Suspected hospital-acquired pneumonia #Bilateral moderate pleural effusions - Concern for pneumonia on imaging. Antibiotics were transitioned to Levaquin to complete treatment for pneumonia and infection above. Pulmonology assisted with care. Follow-up as an outpatient. ? Discharged with 4 more days of Levaquin. Will follow-up with pulmonology within 2 weeks. #Sigmoid colon perforation #Septic shock #Ischemic colitis #Stercoral colitis, severe fecal impaction ? General Surgery consulted, s/p ex lap 03/13/2024 with partial sigmoid colectomy and end colostomy, and some fecal disimpaction. Surgery recommend treating isc hemic/stercoral colitis with antibiotics. Treated with 10 days of antibiotics. Initiated on aggressive bowel regimen. Had increase in stool output. Patient overall did well. - After extensive conversation with Dr. Hurtado, patient's fluid collections x4 seen on CT do not seem to be media sales representative of abscesses or infected pockets, especially given no fever, leukocytosis. Will not need I&D at this time, can cancel transfer requests. #Paroxysmal A-fib #Hypertension ? Resume Xarelto in the morning after heart cath. Continue carvedilol 25 mg twice daily. Continue digoxin 125 mcg daily. #GERD: Continue home PPI. #Hyperlipidemia: Continue home statin. Total time spent on discharge 32 minutes in counseling, documentation, chart review, and direct care with patient. Exam Data for Last 24 hours Vital signs and Labs for Last 24 Hours: Temp Pulse Resp BP Pulse Ox O2 Del Method 97.8 F 96 H 18 178/97 H 96 Room Air 03/28/24 11:18 03/28/24 11:18 03/28/24 11:18 03/28/24 11:18 03/28/24 11:18 03/28/24 13:00 Laboratory Results - last 24 hr 03/28/24 08:32: WBC 8.0, RBC 3.56 L, Hgb 9.1 L, Hct 28.5 L, MCV 80.1 L, MCH 25.6 L, MCHC 31.9, RDW 18.8 H, Plt Count 828 H, MPV 8.7, Neut % (Auto) 72.4, Lymph % (Auto) 15.0, Harlan % (Auto) 11.4 H, Eos % (Auto) 0.2, Baso % (Auto) 0.4, Neut # (Auto) 5.8, Lymph # (Auto) 1.2, Harlan # (Auto) 0.9, Eos # (Auto) 0.0, Baso # (Auto) 0.0, Sodium 134 L, Potassium 3.1 L, Chloride 105, Carbon Dioxide 22, Anion Gap 10.1, BUN 8, Creatinine 0.80, Estimated Creat Clear 43, Estimated GFR 70, Est GFR ( Amer) 84, Glucose 126 H, Calcium 7.7 L, Magnesium 1.7 D, Total Bilirubin 0.5, AST 33 D, ALT 42 D, Alkaline Phosphatase 108, Total Protein 5.3 L, Albumin 2.5 L, Globulin 2.8, Albumin/Globulin Ratio 0.9 L I & O for Last 24 hours: Intake & Output 03/25/24 03/26/24 03/27/24 03/28/24 23:59 23:59 23:59 23:59 Intake Total 270 / 320 940 / 940 Output Total 0 / 0 0 / 0 Balance 270 / 320 940 / 940 Weight 53.524 kg 54.476 kg 56.382 kg Microbiology Reports for the Last 24 Hours: Microbiology 03/26/24 20:18 Urine,Clean Catch Urine Culture - Final No growth. 03/26/24 Unknown Blood Blood Culture - Preliminary NO GROWTH AFTER 24 HOURS 03/26/24 Unknown Blood Blood Culture - Preliminary NO GROWTH AFTER 24 HOURS Constitutional Constitutional: no acute distress *Routine HEENT Exam Head: Present normocephalic and atraumatic *Routine Neck Exam Neck: Present supple and full ROM *Routine Respiratory Exam Respiratory: Present CTA bilaterally; Absent rhonchi or wheezes *Routine Cardiovascular Exam Cardiovascular: Present RRR, Normal S2 and murmur *Routine Abdominal Exam Abdominal: Present soft, normoactive bowel sounds and tenderness Comments: Air/stool in bag. Ostomy pink/viable. *Routine Extremities Exam Extremities: Absent cyanosis, clubbing or edema *Routine Skin Exam Skin: Present intact *Routine Neurological Exam Neurological: Present alert, oriented X3 and CN II-XII intact Routine Psychiatric Exam Psychiatric: Present normal affect Results Data Completed and Pending Labs on day of discharge: Labs from last 24 hours 03/28/24 08:32 WBC 8.0 RBC 3.56 L Hgb 9.1 L Hct 28.5 L MCV 80.1 L MCH 25.6 L MCHC 31.9 RDW 18.8 H Plt Count 828 H MPV 8.7 Neut % (Auto) 72.4 Lymph % (Auto) 15.0 Harlan % (Auto) 11.4 H Eos % (Auto) 0.2 Baso % (Auto) 0.4 Neut # (Auto) 5.8 Lymph # (Auto) 1.2 Harlan # (Auto) 0.9 Eos # (Auto) 0.0 Baso # (Auto) 0.0 Sodium 134 L Potassium 3.1 L Chloride 105 Carbon Dioxide 22 Anion Gap 10.1 BUN 8 Creatinine 0.80 Estimated Creat Clear 43 Estimated GFR 70 Est GFR ( Amer) 84 Glucose 126 H Calcium 7.7 L Magnesium 1.7 D Total Bilirubin 0.5 AST 33 D ALT 42 D Alkaline Phosphatase 108 Total Protein 5.3 L Albumin 2.5 L Globulin 2.8 Albumin/Globulin Ratio 0.9 L Preliminary micro results at discharge 03/26/24 Unknown Blood Culture - Preliminary Blood NO GROWTH AFTER 24 HOURS 03/26/24 Unknown Blood Culture - Preliminary Blood NO GROWTH AFTER 24 HOURS DS: Diagnosis Discharge Diagnosis (1) Pulmonary embolism: Status: Acute Code(s): I26.99 - Other pulmonary embolism without acute cor pulmonale Qualifiers: Pulmonary embolism type: single subsegmental (without acute cor pulmonale) Qualified Code(s): I26.93 - Single subsegmental thrombotic pulmonary embolism without acute cor pulmonale (2) Pleural effusion: Status: Acute Code(s): J90 - Pleural effusion, not elsewhere classified (3) Pleural effusion, bilateral: Status: Acute Code(s): J90 - Pleural effusion, not elsewhere classified (4) Pneumonia: Status: Acute Code(s): J18.9 - Pneumonia, unspecified organism Meds Home Medications and Allergies Home Medications ?Medication ?Instructions ?Recorded ?Confirmed ?Type aspirin 81 mg tablet,delayed 81 mg PO MOWEFR 12/31/19 03/27/24 History release (Adult Aspirin Regimen) digoxin 250 mcg (0.25 mg) tablet 125 mcg PO DAILY 12/31/19 03/27/24 History simvastatin 40 mg tablet 40 mg PO HS 12/04/20 03/27/24 History pantoprazole 40 mg tablet,delayed 40 mg PO HS 01/11/24 03/27/24 History release estradiol 0.01% (0.1 mg/gram) 0.5 appful vaginal .3x weekly 01/18/24 03/27/24 Rx vaginal cream (Estrace) #42.5 grams losartan 50 mg tablet 50 mg PO DAILY 03/09/24 03/27/24 History carvedilol 25 mg tablet 25 mg PO BID #60 tabs 03/21/24 03/27/24 Rx albuterol sulfate 90 mcg/actuation 90 mcg inhalation NEEDED PRN 03/27/24 03/27/24 History aerosol inhaler Wheezing ferrous sulfate 325 mg (65 mg 325 mg PO DAILY 03/27/24 03/27/24 History iron) tablet verapamil 120 mg tablet,extended 120 mg PO BID 03/27/24 03/27/24 History release apixaban 5 mg tablet (Eliquis) 5 mg PO BID #30 tabs 03/28/24 Rx apixaban 5 mg tablet (Eliquis) 10 mg (2 x 5 mg) PO BID 9 days #36 03/28/24 Rx tabs levofloxacin 750 mg tablet 750 mg PO 1100 4 days #4 tabs 03/28/24 Rx New Prescriptions to Start Prescriptions: joanie [Eliquis] Clayton Teixeira apixaban [Eliquis] Clayton Teixeira levofloxacin Clayton Teixeira Allergies Allergy/AdvReac Type Severity Reaction Status Date / Time No Known Allergies Allergy Verified 02/29/24 12:05 Discharge Plan Disposition Patient Disposition: er Intermediate Care Fac Condition: Fair Discharge Order Discharge Orders: Discharge Order (Routine); Ordered 03/28/24 Ordered By: Clayton Teixeira Follow up Plan Follow up with: Pascual Hernandez MD [Physician] - Enter time for follow up Berlin Hurtado MD [Staff Physician] - Enter time for follow up Prescriptions/Medication Reconciliation: New levofloxacin 750 mg Tablet 750 mg PO 1100 4 Days Qty: 4 0RF Eliquis 5 mg tablet 10 mg PO BID 9 Days Qty: 36 0RF Eliquis 5 mg tablet 5 mg PO BID Qty: 30 0RF Rx Instructions: Take 10 mg twice a day for 9 days, then 5 mg twice a day thereafter. Continued digoxin 250 mcg (0.25 mg) tablet 125 mcg PO DAILY aspirin [Adult Aspirin Regimen] 81 mg tablet,delayed release (DR/EC) 81 mg PO MOWEFR simvastatin 40 mg tablet 40 mg PO HS pantoprazole 40 mg tablet,delayed release (DR/EC) 40 mg PO HS Patient Comments: TAKE 1 TABLET BY MOUTH ONCE DAILY estradiol [Estrace] 0.01 % (0.1 mg/gram) cream 0.5 appful vaginal .3x weekly Qty: 42.5 2RF Rx Instructions: apply blueberry size amount 3x weekly vaginally losartan 50 mg tablet 50 mg PO DAILY albuterol sulfate 90 mcg/actuation HFA aerosol inhaler 90 mcg INHALATION NEEDED PRN (Reason: Wheezing) Patient Comments: INHALE 1 PUFF BY MOUTH EVERY 4 HOURS NEEDED Rx Instructions: Every 4 hours as needed verapamil 120 mg tablet extended release 120 mg PO BID Patient Comments: TAKE 1 TABLET BY MOUTH TWICE DAILY ferrous sulfate 325 mg (65 mg iron) tablet 325 mg PO DAILY Patient Comments: TAKE 1 TABLET BY MOUTH ONCE DAILY carvedilol 25 mg Tablet 25 mg PO BID Qty: 60 0RF Discontinued metoprolol succinate 50 mg tablet extended release 24 hr 50 mg PO DAILY Patient Comments: TAKE 1 TABLET BY MOUTH ONCE DAILY rivaroxaban 15 mg tablet 15 mg PO QPMWITHMEAL quetiapine 25 mg Tablet 25 mg PO HS 10 Days Qty: 10 0RF Problem Reconciliation Problems Reviewed?: Yes Patient Discharge Instructions Patient Instructions: DI for Acute Cystitis, DI for Encephalopathy, DI for Altered Mental Status Print Language: Citizen Of [place] Providers Primary Care Provider: Provider,Referral Admit Provider: Ananth Gonzalez Attending Provider: Ananth Gonzalez
== END 2024-03-28 15:56 ==
LOC: ER 03-27 02:14 → 2ND 03-27 02:19
PROVIDERS: Nurse Practitioner Acute Care; Student in an Organized Health Care Education/Training Program; Admitting Provider Internal Medicine Adolescent Medicine; Emergency Provider Emergency Medicine; Visit Provider Internal Medicine Adolescent Medicine
DX: I26.93 Single subsegmental thrombotic pulmonary embolism without acute cor pulmonale (principal); J90 Pleural effusion, not elsewhere classified; F05 Delirium due to known physiological condition; K21.9 Gastro-esophageal reflux disease without esophagitis; K85.90 Acute pancreatitis without necrosis or infection, unspecified; I26.99 Other pulmonary embolism without acute cor pulmonale; I48.0 Paroxysmal atrial fibrillation; G93.41 Metabolic encephalopathy; E78.5 Hyperlipidemia, unspecified; N30.00 Acute cystitis without hematuria; B96.89 Other specified bacterial agents as the cause of diseases classified elsewhere; Z79.82 Long term (current) use of aspirin; Z79.51 Long term (current) use of inhaled steroids; Z79.01 Long term (current) use of anticoagulants
CPT/HCPCS: 36415; 70450; 71275; 74177; 80048; 80053; 80162; 80307; 81001; 82140; 82803; 83605; 83690; 83735; 83880; 84145; 84436; 84443; 84484; 85025; 85610; 85651; 85730; 86140; 87040; 87086; 93005; 93970; 97162; 97165; 97530; 99291; G0238; G0378; J1650; J1940; J2543; J3370; J3372; J3475; J7050; J7120; Q9967

== ENCOUNTER 2024-05-17 08:57 | Outpatient (CLI) | payer MEDICARE, MEDICAID, SELFPAY ==
[2024-05-17] MEDS: SODIUM CHLORIDE 0.9% 50ML BAG 50 ML IV (09:14)
[2024-05-17] MEDS: IRON SUCROSE COMPLEX 200 MG in 0.9 % SODIUM CHLORIDE 100 ML 220 MG IV (09:14)
[2024-05-17 09:25] VITALS: BP 98/37; PULSE 57; RESP 18; TEMP 36.6; O2SAT 97
[2024-05-17 10:00] VITALS: BP 99/38; PULSE 61
== END 2024-05-17 10:05 | disposition home or self-care (01) ==
LOC: INF 08:58
PROVIDERS: PCP Family Medicine; Visit Provider Physician Assistant
DX: D50.9 Iron deficiency anemia, unspecified (principal)
CPT/HCPCS: 96365; J1756

== ENCOUNTER 2024-05-23 08:40 | Outpatient (CLI) | payer MEDICARE, MEDICAID, SELFPAY ==
[2024-05-23] MEDS: IRON SUCROSE COMPLEX 200 MG in 0.9 % SODIUM CHLORIDE 100 ML 220 MG IV (08:56)
[2024-05-23] MEDS: SODIUM CHLORIDE 0.9% 50ML BAG 50 ML IV (08:56)
[2024-05-23 09:03] VITALS: BP 153/66; PULSE 68; RESP 18; TEMP 36.4; O2SAT 98
[2024-05-23 09:46] VITALS: BP 143/95; PULSE 67; RESP 18; O2SAT 97
== END 2024-05-23 09:46 | disposition home or self-care (01) ==
LOC: INF 08:41
PROVIDERS: PCP Family Medicine; Visit Provider Physician Assistant
DX: D50.9 Iron deficiency anemia, unspecified (principal)
CPT/HCPCS: 96365; J1756

== ENCOUNTER 2024-05-30 09:20 | Outpatient (CLI) | payer MEDICARE, MEDICAID, SELFPAY ==
[2024-05-30] MEDS: IRON SUCROSE COMPLEX 200 MG in 0.9 % SODIUM CHLORIDE 100 ML 220 MG IV (09:36)
[2024-05-30] MEDS: SODIUM CHLORIDE 0.9% 50ML BAG 50 ML IV (09:36)
[2024-05-30 09:45] VITALS: BP 158/68; PULSE 66; RESP 18; TEMP 36.7; O2SAT 95
[2024-05-30 10:20] VITALS: BP 146/66; PULSE 72
== END 2024-05-30 10:20 | disposition home or self-care (01) ==
LOC: INF 09:20
PROVIDERS: PCP Physician Assistant; Visit Provider Physician Assistant
DX: D50.9 Iron deficiency anemia, unspecified (principal)
CPT/HCPCS: 96365; J1756

== ENCOUNTER 2024-06-06 09:31 | Outpatient (CLI) | payer MEDICARE, MEDICAID, SELFPAY ==
[2024-06-06] MEDS: IRON SUCROSE COMPLEX 200 MG in 0.9 % SODIUM CHLORIDE 100 ML 220 MG IV (09:46)
[2024-06-06] MEDS: SODIUM CHLORIDE 0.9% 50ML BAG 50 ML IV (09:46)
[2024-06-06 09:50] VITALS: BP 164/74; PULSE 69; RESP 16; O2SAT 94
[2024-06-06 10:20] VITALS: BP 152/67; PULSE 60; RESP 17
== END 2024-06-06 10:35 | disposition home or self-care (01) ==
LOC: INF 09:32
PROVIDERS: PCP Family Medicine; Visit Provider Physician Assistant
DX: D50.9 Iron deficiency anemia, unspecified (principal)
CPT/HCPCS: 96365; J1756

== ENCOUNTER 2024-06-06 20:49 | Emergency (ER) | payer MEDICARE, MEDICAID, SELFPAY ==
[2024-06-06 20:55] VITALS: BP 175/73; PULSE 75; RESP 18; TEMP 36.4; O2SAT 100; BMI 18.5
[2024-06-06 21:12] LABS: Basophils % 0.4 % (0.1-2.0); Eosinophils # 0.1 K/mm3 (0.0-0.4); Eosinophils % 0.8 % (0.1-12.0); Hematocrit 32.7 % (37.0-47.0); Hemoglobin 10.6 g/dL (12.2-16.2); Lymphocytes # 1.4 K/mm3 (0.7-4.5); Lymphocytes % 12.9 % (10-50); Mean Corpuscular HGB Conc 32.4 g/dL (31.8-35.4); Mean Corpuscular Hemoglobin 26.8 pg (27.0-31.2); Mean Corpuscular Volume 82.6 fl (81-99); Mean Platelet Volume 8.2 fl (7.4-10.4); Monocytes % 9.5 % (1.7-9.3); Neutrophils # 8.1 K/mm3 (1.8-7.8); Neutrophils % 76.2 % (37.0-80.0); Platelet Count 444 K/mm3 (142-424); Red Blood Count 3.96 M/mm3 (4.20-5.40); Red Cell Distribution Width 20.7 % (11.5-17.5); White Blood Count 10.6 K/mm3 (4.8-10.8)
[2024-06-06 21:25] LABS: Albumin Level 4.2 g/dl (3.5-5.0); Chloride 84 mmol/L (98-107)
[2024-06-06 21:26] LABS: Potassium 4.5 mmoL/L (3.5-5.1); Sodium 125 mmol/L (136-145)
[2024-06-06 21:28] LABS: Alanine Aminotransferase 19 U/L (12-78); Albumin/Globulin Ratio 1.4 (1.1-1.8); Alkaline Phosphatase 84 U/L (38-126); Anion Gap 13.5 mEq/L (5-15); Aspartate Amino Transferase 23 U/L (14-36); Bilirubin,Total 0.9 mg/dl (0.2-1.3); Blood Urea Nitrogen 50 mg/dl (7-17); Carbon Dioxide 32 mmol/L (22.0-30.0); Creatinine Clearance Estimated 9 mL/min (50-200); Estimated Glomerular Filt Rate 11 ml/min (>60); GFR (African American) 13 ML/MIN (>60); Globulin 2.9 g/dL (1.3-3.2); Total Protein,Serum 7.1 g/dl (6.3-8.2)
[2024-06-06 21:29] LABS: Glucose 145 mg/dl (74-100)
[2024-06-06 21:47] VITALS: PULSE 51; O2SAT 95
--- NOTE | 2024-06-06 21:54 | CT_ITS ---
PROCEDURE INFORMATION: Exam: CT Abdomen And Pelvis Without Contrast Exam date and time: 06/06/2024 10:28 PM Age: 78 years old Clinical indication: Other: Post renal rosy; Additional info: AMS, post renal rosy TECHNIQUE: Imaging protocol: Computed tomography of the abdomen and pelvis without contrast. Radiation optimization: All CT scans at this facility use at least one of these dose optimization techniques: automated exposure control; mA and/or kV adjustment per patient size (includes targeted exams where dose is matched to clinical indication); or iterative reconstruction. COMPARISON: CT ABDOMEN PELVIS W CON 03/26/2024 8:01 PM FINDINGS: Lungs: There is bibasilar atelectasis. Heart: There is fluid present within the superior pericardial recess. Liver: Normal. No mass. Gallbladder and biliary ducts: No calcified gallstones. Gallbladder sludge may be present. No biliary ductal dilation. Pancreas: Normal. No ductal dilation. Spleen: Normal. No splenomegaly. Adrenal glands: Normal. No mass. Kidneys and ureters: No hydronephrosis or stone disease. Hypodense cortical lesions are present bilaterally noted to represent cysts on the prior study. There is a 9 mm cortical hyperdensity medial upper pole left kidney not fully characterized. Stomach and bowel: Scattered colonic diverticuli are present without acute inflammation. There is a descending colostomy noted with Nii's pouch formation evident. Appendix: Absent. Intraperitoneal space: There is mild mesenteric and omental edema. Vasculature: There is [id number] calcific atherosclerotic disease without aneurysm. Lymph nodes: Unremarkable. No enlarged lymph nodes. Urinary bladder: There is diffuse bladder wall thickening. Reproductive: A pessary is noted. Bones/joints: Mild degenerative changes of the spine. No acute fracture. Soft tissues: Unremarkable. IMPRESSION: 1. Mesenteric and omental edema. 2. Diffuse bladder wall thickening. Diagnostic considerations include cystitis and sequela of neurogenic bladder. 3. No hydronephrosis or renal stone disease. 9 mm cortical hyperdensity medial upper pole left kidney not fully characterized but likely represents a proteinaceous or hemorrhagic cyst. No further workup is necessary. 4. Bibasilar atelectasis. 5. Other nonemergent findings as noted. COMMENTS: Consistent with the [place] [employer]'s Incidental Findings Committee white paper (J Am Danisha Radiol 2018): Any incidental renal lesion less than 1 cm or classified as too small to characterize, or any incidental cystic renal lesion characterized as simple-appearing, is likely benign. No follow-up imaging is recommended for these lesions per consensus recommendations based on imaging criteria.
[2024-06-06 21:57] LABS: Calcium 13.1 mg/dl (8.4-10.2)
--- NOTE | 2024-06-06 21:57 | PC.NURSE ---
critical called from lab. MD walker
[2024-06-06 22:01] VITALS: BP 145/65; PULSE 50; O2SAT 97
--- NOTE | 2024-06-06 22:05 | ECG_ITS ---
APPROVED REPORT Exam: Resting ECG HR:50 bpm ECG Measurements Heart Rate 50 AXES CA 188 P 57 QRSd 136 QRS 81 QT 374 T 37 QTc 349 Conclusion Sinus bradycardia Right bundle branch block No acute ischemic change Electronically signed by : JENNIFER MCNAMARA, 06/08/2024 12:29:57
--- NOTE | 2024-06-06 22:11 | CT_ITS ---
PROCEDURE INFORMATION: Exam: CT Head Without Contrast Exam date and time: 06/06/2024 10:20 PM Age: 78 years old Clinical indication: Altered mental status/memory loss; Additional info: AMS TECHNIQUE: Imaging protocol: Computed tomography of the head without contrast. 3D rendering (Not supervised by radiologist): MIP and/or 3D reconstructed images were created by the technologist. Radiation optimization: All CT scans at this facility use at least one of these dose optimization techniques: automated exposure control; mA and/or kV adjustment per patient size (includes targeted exams where dose is matched to clinical indication); or iterative reconstruction. COMPARISON: CT HEAD/BRAIN WO CON 03/26/2024 7:59 PM FINDINGS: Limitations: Motion artifact. Brain: No acute intracranial hemorrhage, midline shift, or mass effect. Diffuse brain parenchymal volume loss. Similar pattern of hypodensities within the cerebral white matter. Cerebral ventricles: No ventriculomegaly. Pituitary gland and sella: Partially empty sella. Paranasal sinuses: Mild paranasal sinus disease. Mastoid air cells: Visualized mastoid air cells are well aerated. Bones: Unremarkable. No acute fracture. Soft tissues: Unremarkable. IMPRESSION: No acute intracranial findings.
--- NOTE | 2024-06-06 22:11 | CT_ITS ---
PROCEDURE INFORMATION: Exam: CT Chest Without Contrast; Diagnostic Exam date and time: 06/06/2024 10:24 PM Age: 78 years old Clinical indication: Other: Bradycardia; Additional info: AMS, bradycardia TECHNIQUE: Imaging protocol: Diagnostic computed tomography of the chest without contrast. Radiation optimization: All CT scans at this facility use at least one of these dose optimization techniques: automated exposure control; mA and/or kV adjustment per patient size (includes targeted exams where dose is matched to clinical indication); or iterative reconstruction. COMPARISON: CT ANGIO CHEST PE PROTOCOL 03/26/2024 8:01 PM FINDINGS: Trachea: Linear strands of mucus are present within the trachea. Lungs: There are bandlike densities involving both lower lobes consistent with atelectasis and/or scarring. Pleural spaces: Unremarkable. No pneumothorax. No pleural effusion. Heart: Fluid is present within the superior pericardial recess. The heart is top-normal to mildly enlarged. Prominent coronary artery calcifications are noted. Lymph nodes: Unremarkable. No enlarged lymph nodes. Vasculature: Unremarkable. No aortic aneurysm. Bones/joints: Diffuse mild degenerative changes of the spine. Moderate degenerative changes of the shoulders. Alignment of both shoulders suggest chronic full-thickness retracted rotator cuff tears. No acute fracture. Soft tissues: Unremarkable. IMPRESSION: 1. Bibasilar atelectasis and/or scarring. 2. Linear strands of mucus are present within the trachea. 3. Other nonemergent findings as noted.
[2024-06-06 22:16] LABS: Lactic Acid 1.5 mmol/L (0.7-2.1)
[2024-06-06 22:26] LABS: Troponin I 0.02 ng/ml (0.00-0.034)
[2024-06-06 22:34] VITALS: BP 159/68; PULSE 53; O2SAT 97
[2024-06-06] MEDS: LACTATED RINGERS 1000ML 1,640 ML 820 ML IV (22:37)
[2024-06-06 23:00] VITALS: BP 152/67; PULSE 52; O2SAT 95
--- NOTE | 2024-06-06 23:11 | ED_ITS ---
Discharge Plan Disposition Patient Disposition: Xfer Short-Term Hosp Condition: Serious Prescriptions Prescriptions: No Action atorvastatin 10 mg tablet 10 mg PO DAILY furosemide [Lasix] 20 mg tablet 20 mg PO DAILY PRN (Reason: edema) Qty: 30 3RF aspirin [Adult Aspirin Regimen] 81 mg tablet,delayed release (DR/EC) 81 mg PO MOWEFR digoxin 250 mcg (0.25 mg) tablet 250 mcg PO DAILY simvastatin 40 mg tablet 40 mg PO HS pantoprazole 40 mg tablet,delayed release (DR/EC) 40 mg PO HS Patient Comments: TAKE 1 TABLET BY MOUTH ONCE DAILY losartan 50 mg tablet 50 mg PO DAILY albuterol sulfate 90 mcg/actuation HFA aerosol inhaler 90 mcg INHALATION NEEDED PRN (Reason: Wheezing) Patient Comments: INHALE 1 PUFF BY MOUTH EVERY 4 HOURS NEEDED Rx Instructions: Every 4 hours as needed verapamil 120 mg tablet extended release 120 mg PO BID Patient Comments: TAKE 1 TABLET BY MOUTH TWICE DAILY Eliquis 5 mg tablet 5 mg PO BID Qty: 30 0RF Rx Instructions: Take 10 mg twice a day for 9 days, then 5 mg twice a day thereafter. carvedilol 25 mg Tablet 25 mg PO BID Qty: 60 0RF Referrals Follow up/Referrals: Charlene Benoit PA [Primary Care Provider] - See instructions Clinical Impressions Clinical Impression: Acute renal failure, Altered mental status, Hyponatremia, Hypercalcemia Stand Alone Forms Stand Alone Forms: Transfer Record - ED Instructions Patient Instructions: DI for Altered Mental Status Print Language Print Language: Armenian Discharge ED Provider: Vitaliy Cartwright General Adult HPI <Vitaliy Cartwright MD - Last Filed: 06/06/24 23:15> General Chief complaint: Altered Mental Status Stated complaint: poss UTI, disorientated Time Seen by Provider: 06/06/24 21:54 Mode of Arrival: Wheelchair Source of Information: Patient and Relative Description of Symptoms (Recalled from ER Triage Doc. by RN): Pt presents for concerns of altered mental status x 1 week. Pt has been more lethargic and not eating as much as usual. Pt was diagnosed with a uti by her PCP this week and was started on cefdinir. History of Present Illness HPI narrative: Please note that above description of symptoms, in this electronic medical record under categorization of recalled from ER triage doctor by RN are reflective of an initial nursing assessment, however, is not reflective of my full history and physical exam that was personally taken and clarified. Consequentially, this preceding description of symptoms, which may include the patient's categorized chief complaint in the EMR, do not reflect my personal clinical impression, and the ultimate description of history of present illness and patient stated complaints should be deferred to this section of the note. Unless stated otherwise or congruent with this section of the note, additional signs, symptoms, or incongruence should be interpreted as inaccurate with my clinical impression. Related Data Home Medications ?Medication ?Instructions ?Recorded ?Confirmed aspirin 81 mg tablet,delayed 81 mg PO MOWEFR 12/31/19 06/06/24 release (Adult Aspirin Regimen) simvastatin 40 mg tablet 40 mg PO HS 12/04/20 06/06/24 pantoprazole 40 mg tablet,delayed 40 mg PO HS 01/11/24 06/06/24 release losartan 50 mg tablet 50 mg PO DAILY 03/09/24 06/06/24 albuterol sulfate 90 mcg/actuation 90 mcg inhalation NEEDED PRN 03/27/24 06/06/24 aerosol inhaler Wheezing verapamil 120 mg tablet,extended 120 mg PO BID 03/27/24 06/06/24 release atorvastatin 10 mg tablet 10 mg PO DAILY 05/22/24 06/06/24 digoxin 250 mcg (0.25 mg) tablet 250 mcg PO DAILY 05/30/24 06/06/24 Previous Rx's ?Medication ?Instructions ?Recorded carvedilol 25 mg tablet 25 mg PO BID #60 tabs 03/21/24 apixaban 5 mg tablet (Eliquis) 5 mg PO BID #30 tabs 03/28/24 furosemide 20 mg tablet (Lasix) 20 mg PO DAILY PRN edema #30 tabs 05/30/24 Allergies Allergy/AdvReac Type Severity Reaction Status Date / Time No Known Allergies Allergy Verified 05/30/24 10:53 [facility] <Vitaliy Cartwright MD - Last Filed: 06/06/24 23:15> [facility] Disclaimer: The information contained in this section may have been updated after the patient was seen, as this information can be updated by other users. 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 Hypertension Diastolic dysfunction HLD (hyperlipidemia) Abnormal echocardiogram Atelectasis of both lungs Pleural effusion, bilateral Dyspnea on exertion Chronic cough Shortness of Breath Hypertension High cholesterol Afib Surgical History History of colectomy History of appendectomy Family History Other No significant family history Social History Smoking Status: Never smoker alcohol intake: never counseling provided: none (Patient does not smoke or use alcohol ) substance use type: denies use current occupational status: retired Travel in the last 8 weeks: None household members: family housing: house caffeine: Yes do you feel safe at home: Yes victim of physical abuse: No victim of emotional abuse: No victim of sexual abuse: No Have you lived/traveled outside US in past 30 days?: No Contact w/someone who lives/traveled outside US past 30 days?: No Exposure to someone with infectious disease in past 14 days?: No Do you have a fever (greater than 100.4 F or 38 C)?: No Have you tested positive for COVID-19: No Exposed to someone with COVID-19 in past 14 days?: No Do you have a sore throat?: No Do you have a cough?: No Do you have any weakness?: Yes Do you have any diarrhea?: No Are you experiencing any unusual bleeding?: No Do you have any muscle aches/pain?: No Do you have any abdominal pain?: No Are you experiencing loss of taste or smell?: No Other 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 Have you received the Flu Vaccine for this season: No Have you received the Pneumonia Vaccine: Yes <Vitaliy Cartwright MD - Last Filed: 06/06/24 23:15> ROS Obtained: Yes unobtainable due to mental status Physical Exam <Vitaliy Cartwright MD - Last Filed: 06/06/24 23:15> General General appearance: alert Head Head exam: atraumatic and normocephalic Eye Eye exam: Present normal appearance, PERRL and EOMI ENT ENT exam: Present mucous membranes dry Neck Neck exam: Present normal inspection, full ROM and trachea midline Respiratory Respiratory exam: Absent respiratory distress, wheezes, stridor, accessory muscle use or prolonged expiratory phase Cardiovascular Cardiovascular exam: Present normal rhythm, bradycardia and other (Pulses equal symmetric in upper and lower extremities) Abdominal Exam Abdominal exam: Present soft; Absent distention, tenderness or pulsatile mass Extremities Exam Extremities exam: Absent edema Neurological Exam Neurological exam: Present alert and CN II-XII intact; Absent oriented X3 or motor sensory deficit Skin Skin exam: Present warm and dry; Absent diaphoresis or erythema Medical Decision Making <Vitaliy Cartwright MD - Last Filed: 06/06/24 23:15> Medical Records Medical records reviewed: Yes I reviewed the patient's medical records. Screening: Per USPSTF and CDC recommendations, given the prevalence of disease in our region, it is our hospital?s policy to screen for HIV and viral Hepatitis for all patients aged 18 and over and those with ongoing risk factors. Rui Inquiry Pt receiving controlled substance: No Rui was queried for this patient: No Vital Signs: 06/06/24 20:55 06/06/24 21:47 06/06/24 22:01 Temperature 97.6 F Temperature Source Temporal Artery Scan Pulse Rate 51 L 50 L Pulse Rate [Right] 75 Respiratory Rate 18 Blood Pressure 145/65 H Blood Pressure [Right Arm] 175/73 H Blood Pressure Mean [Right Arm] 107 Blood Pressure Source Blood Pressure Source [Right Arm] Automatic Cuff Blood Pressure Position Blood Pressure Position [Right Arm] Sitting 02 Sat by Pulse Oximetry 100 95 97 Oxygen Delivery Method Room Air 06/06/24 22:34 06/06/24 23:00 06/06/24 23:32 Temperature Temperature Source Pulse Rate 53 L 52 L 51 L Pulse Rate [Right] Respiratory Rate Blood Pressure 159/68 H 152/67 H 149/65 H Blood Pressure [Right Arm] Blood Pressure Mean [Right Arm] Blood Pressure Source Blood Pressure Source [Right Arm] Blood Pressure Position Blood Pressure Position [Right Arm] 02 Sat by Pulse Oximetry 97 95 95 Oxygen Delivery Method 06/07/24 00:00 06/07/24 00:30 06/07/24 01:00 Temperature Temperature Source Pulse Rate 55 L 53 L 56 L Pulse Rate [Right] Respiratory Rate Blood Pressure 139/63 159/68 H 154/69 H Blood Pressure [Right Arm] Blood Pressure Mean [Right Arm] Blood Pressure Source Blood Pressure Source [Right Arm] Blood Pressure Position Blood Pressure Position [Right Arm] 02 Sat by Pulse Oximetry 95 95 96 Oxygen Delivery Method 06/07/24 01:25 06/07/24 01:30 Temperature 98.9 F Temperature Source Oral Pulse Rate 54 L 56 L Pulse Rate [Right] Respiratory Rate 18 Blood Pressure 158/74 H 141/61 H Blood Pressure [Right Arm] Blood Pressure Mean [Right Arm] Blood Pressure Source Automatic Cuff Blood Pressure Source [Right Arm] Blood Pressure Position Supine Blood Pressure Position [Right Arm] 02 Sat by Pulse Oximetry 94 L Oxygen Delivery Method Room Air Lab Data Lab Results 06/06/24 21:03: WBC 10.6, RBC 3.96 L, Hgb 10.6 L, Hct 32.7 L, MCV 82.6, MCH 26.8 L, MCHC 32.4, RDW 20.7 H, Plt Count 444 H, MPV 8.2, Neut % (Auto) 76.2, Lymph % (Auto) 12.9, Hopkins % (Auto) 9.5 H, Eos % (Auto) 0.8, Baso % (Auto) 0.4, Neut # (Auto) 8.1 H, Lymph # (Auto) 1.4, Hopkins # (Auto) 1.0, Eos # (Auto) 0.1, Baso # (Auto) 0.0, Sodium 125 L, Potassium 4.5, Chloride 84 L, Carbon Dioxide 32 H, Anion Gap 13.5, BUN 50 H, Creatinine 4.10 H, Estimated Creat Clear 9, Estimated GFR 11 L*, Est GFR ( Amer) 13 L*, Glucose 145 H, Calcium 13.1 H*, Total Bilirubin 0.9, AST 23, ALT 19, Alkaline Phosphatase 84, Total Protein 7.1 D, Albumin 4.2, Globulin 2.9, Albumin/Globulin Ratio 1.4 06/06/24 21:45: Troponin I 0.02 06/06/24 21:59: Lactate 1.5 06/07/24 00:33: Urine Color Yellow, Urine Appearance Clear, Urine pH 7.5, Ur Specific Jefferson 1.010, Urine Protein Trace, Urine Glucose (UA) Negative, Urine Ketones Negative, Urine Blood Moderate, Urine Nitrate Negative, Urine Bilirubin Negative, Urine Urobilinogen 0.2, Ur Leukocyte Esterase Large, Urine RBC Occasional, Urine WBC 10-20, Urine Bacteria Trace 03/28/25 00:55: Troponin I 0.02 06/06/24 21:03 06/06/24 21:03 Orders (Tests/Meds): ED MEDICATIONS Generic Name Dose Route Start Last Admin Trade Name Freq PRN Reason Stop Dose Admin Piperacillin Sod/Tazobactam 50 mls @ 100 mls/hr 06/07/24 09:00 Sod 2.25 gm/ Sodium Chloride IV 06/17/24 08:59 Q8H SUBHASH Discontinued Medications Generic Name Dose Route Start Last Admin Trade Name Freq PRN Reason Stop Dose Admin Lactated Ringer's 1,640 mls @ 820 mls/hr 06/06/24 22:11 06/06/24 22:37 Lactated Ringer's 1000 Ml Bag 30 ml/kg infuse over 2 hr (1640 ml) 06/07/24 00:10 820 mls/hr IV Administration .Q2H ONE Piperacillin Sod/Tazobactam 50 mls @ 100 mls/hr 06/07/24 01:00 06/07/24 01:01 Sod 2.25 gm/ Sodium Chloride IV 06/17/24 00:59 100 mls/hr Q8H SUBHASH Administration ORDERS Category Date Time Status CT abdomen pelvis wo con Stat Cat Scan 06/06/24 21:[address] chest wo con Stat Cat Scan 06/06/24 22:[address] head/brain wo con Stat Cat Scan 06/06/24 22:11 Completed Complete Blood Count Auto Diff Stat Lab 06/06/24 21:03 Completed Comprehensive Metabolic Panel Stat Lab 06/06/24 21:03 Completed Lactic Acid Stat Lab 06/06/24 21:59 Completed Trop I [Troponin I] Stat Lab 06/06/24 21:45 Completed Troponin I Q3H Lab 06/07/24 00:55 Completed Troponin I Q3H Lab 06/07/24 04:00 Ordered Urinalysis and Microscopic Stat Lab 06/07/24 00:33 Completed Blood Culture Stat Micro 06/06/24 22:49 Received Urine Culture Stat Micro 06/07/24 00:33 Received Medical Decision Narrative: 78-year-old female presenting with family on concern for altered mental status. Patient has a history of hypertension, hyperlipidemia, A-fib on Eliquis, bowel perforation just a couple months ago resulting in ostomy placement. Daughter states that patient lives on her property in a mobile home. Patient's daughter went to check on her today, she was walking around naked, confused, did not know where she was or what was going on. Recently diagnosed with urinary tract infection, daughter thinks this may be related. No fevers or chills or pain patient has been complaining of, has otherwise been pleasant. History was obtained via conversation with patient's daughter. On arrival, patient hemodynamically stable, alert, oriented only to person [appropriate, ]GCS [15], moving all extremities spontaneously, pupils equal and reactive to light. Full physical exam performed and significant for very clinically well-appearing female outwardly in no acute distress. Speaking in full sentences, alert and appropriately interactive other than confusion. Lungs are clear, cardiac exam with right upper sternal border murmur radiating to the carotids consistent with aortic stenosis. No lower extremity edema. Lungs are clear. Neurologically intact otherwise. Differential includes metabolic abnormality, endocrinologic abnormality, sepsis, urinary tract infection, pneumonia, among others. Patient placed on continuous cardiac monitoring and continuous pulse ox with initial blood pressure 175/73, heart rate 75, saturation 100% on room air. [Independent interpretation of EKG shows] sinus bradycardia with right bundle branch block morphology 50 bpm. ID [id number], QRS is 136, QTc 349 with normal axis. Patient was given IV fluids for symptomatic management[ and correction of underlying abnormalities]. Workup independently interpreted and significant for nonactionable CBC. Patient's chemistry with hyponatremia, acute kidney injury/acute renal failure with creatinine 4.1 and BUN 50 GFR 11. Patient's calcium also elevated at 13.1. Troponin negative. On independent interpretation of imaging, patient has no acute intracranial hemorrhage. Rest of scans were pending at time of handoff to oncoming physician Food Service Director disclaimer Much of this encounter note is an electronic electrical prospecting supervisor spoken language to printed text. Electronic electrical prospecting supervisor of the spoken language may permit errors. Although I have reviewed the note, some errors may still exist. <Tawanna Santiago MD - Last Filed: 06/07/24 03:12> Vital Signs: 06/06/24 20:55 06/06/24 21:47 06/06/24 22:01 Temperature 97.6 F Temperature Source Temporal Artery Scan Pulse Rate 51 L 50 L Pulse Rate [Right] 75 Respiratory Rate 18 Blood Pressure 145/65 H Blood Pressure [Right Arm] 175/73 H Blood Pressure Mean [Right Arm] 107 Blood Pressure Source Blood Pressure Source [Right Arm] Automatic Cuff Blood Pressure Position Blood Pressure Position [Right Arm] Sitting 02 Sat by Pulse Oximetry 100 95 97 Oxygen Delivery Method Room Air 06/06/24 22:34 06/06/24 23:00 06/06/24 23:32 Temperature Temperature Source Pulse Rate 53 L 52 L 51 L Pulse Rate [Right] Respiratory Rate Blood Pressure 159/68 H 152/67 H 149/65 H Blood Pressure [Right Arm] Blood Pressure Mean [Right Arm] Blood Pressure Source Blood Pressure Source [Right Arm] Blood Pressure Position Blood Pressure Position [Right Arm] 02 Sat by Pulse Oximetry 97 95 95 Oxygen Delivery Method 06/07/24 00:00 06/07/24 00:30 06/07/24 01:00 Temperature Temperature Source Pulse Rate 55 L 53 L 56 L Pulse Rate [Right] Respiratory Rate Blood Pressure 139/63 159/68 H 154/69 H Blood Pressure [Right Arm] Blood Pressure Mean [Right Arm] Blood Pressure Source Blood Pressure Source [Right Arm] Blood Pressure Position Blood Pressure Position [Right Arm] 02 Sat by Pulse Oximetry 95 95 96 Oxygen Delivery Method 06/07/24 01:25 06/07/24 01:30 Temperature 98.9 F Temperature Source Oral Pulse Rate 54 L 56 L Pulse Rate [Right] Respiratory Rate 18 Blood Pressure 158/74 H 141/61 H Blood Pressure [Right Arm] Blood Pressure Mean [Right Arm] Blood Pressure Source Automatic Cuff Blood Pressure Source [Right Arm] Blood Pressure Position Supine Blood Pressure Position [Right Arm] 02 Sat by Pulse Oximetry 94 L Oxygen Delivery Method Room Air Lab Data Lab Results 06/06/24 21:03: WBC 10.6, RBC 3.96 L, Hgb 10.6 L, Hct 32.7 L, MCV 82.6, MCH 26.8 L, MCHC 32.4, RDW 20.7 H, Plt Count 444 H, MPV 8.2, Neut % (Auto) 76.2, Lymph % (Auto) 12.9, Hopkins % (Auto) 9.5 H, Eos % (Auto) 0.8, Baso % (Auto) 0.4, Neut # (Auto) 8.1 H, Lymph # (Auto) 1.4, Hopkins # (Auto) 1.0, Eos # (Auto) 0.1, Baso # (Auto) 0.0, Sodium 125 L, Potassium 4.5, Chloride 84 L, Carbon Dioxide 32 H, Anion Gap 13.5, BUN 50 H, Creatinine 4.10 H, Estimated Creat Clear 9, Estimated GFR 11 L*, Est GFR ( Amer) 13 L*, Glucose 145 H, Calcium 13.1 H*, Total Bilirubin 0.9, AST 23, ALT 19, Alkaline Phosphatase 84, Total Protein 7.1 D, Albumin 4.2, Globulin 2.9, Albumin/Globulin Ratio 1.4 06/06/24 21:45: Troponin I 0.02 06/06/24 21:59: Lactate 1.5 06/07/24 00:33: Urine Color Yellow, Urine Appearance Clear, Urine pH 7.5, Ur Specific Jefferson 1.010, Urine Protein Trace, Urine Glucose (UA) Negative, Urine Ketones Negative, Urine Blood Moderate, Urine Nitrate Negative, Urine Bilirubin Negative, Urine Urobilinogen 0.2, Ur Leukocyte Esterase Large, Urine RBC Occasional, Urine WBC 10-20, Urine Bacteria Trace 06/07/24 00:55: Troponin I 0.02 Orders (Tests/Meds): ED MEDICATIONS Generic Name Dose Route Start Last Admin Trade Name Freq PRN Reason Stop Dose Admin Piperacillin Sod/Tazobactam 50 mls @ 100 mls/hr 06/07/24 09:00 Sod 2.25 gm/ Sodium Chloride IV 06/17/24 08:59 Q8H SUBHASH Discontinued Medications Generic Name Dose Route Start Last Admin Trade Name Freq PRN Reason Stop Dose Admin Lactated Ringer's 1,640 mls @ 820 mls/hr 06/06/24 22:11 06/06/24 22:37 Lactated Ringer's 1000 Ml Bag 30 ml/kg infuse over 2 hr (1640 ml) 06/07/24 00:10 820 mls/hr IV Administration .Q2H ONE Piperacillin Sod/Tazobactam 50 mls @ 100 mls/hr 06/07/24 01:00 06/07/24 01:01 Sod 2.25 gm/ Sodium Chloride IV 06/17/24 00:59 100 mls/hr Q8H SUBHASH Administration ORDERS Category Date Time Status CT abdomen pelvis wo con Stat Cat Scan 06/06/24 21:[address] chest wo con Stat Cat Scan 06/06/24 22:[address] head/brain wo con Stat Cat Scan 06/06/24 22:11 Completed Complete Blood Count Auto Diff Stat Lab 06/06/24 21:03 Completed Comprehensive Metabolic Panel Stat Lab 06/06/24 21:03 Completed Lactic Acid Stat Lab 06/06/24 21:59 Completed Trop I [Troponin I] Stat Lab 06/06/24 21:45 Completed Troponin I Q3H Lab 06/07/24 00:55 Completed Troponin I Q3H Lab 06/07/24 04:00 Ordered Urinalysis and Microscopic Stat Lab 06/07/24 00:33 Completed Blood Culture Stat Micro 06/06/24 22:49 Received Urine Culture Stat Micro 06/07/24 00:33 Received Medical Decision Narrative: 78-year-old female presenting with family on concern for altered mental status. Patient has a history of hypertension, hyperlipidemia, A-fib on Eliquis, bowel perforation just a couple months ago resulting in ostomy placement. Daughter states that patient lives on her property in a mobile home. Patient's daughter went to check on her today, she was walking around naked, confused, did not know where she was or what was going on. Recently diagnosed with urinary tract infection, daughter thinks this may be related. No fevers or chills or pain patient has been complaining of, has otherwise been pleasant. History was obtained via conversation with patient's daughter. On arrival, patient hemodynamically stable, alert, oriented only to person [appropriate, ]GCS [15], moving all extremities spontaneously, pupils equal and reactive to light. Full physical exam performed and significant for very clinically well-appearing female outwardly in no acute distress. Speaking in full sentences, alert and appropriately interactive other than confusion. Lungs are clear, cardiac exam with right upper sternal border murmur radiating to the carotids consistent with aortic stenosis. No lower extremity edema. Lungs are clear. Neurologically intact otherwise. Differential includes metabolic abnormality, endocrinologic abnormality, sepsis, urinary tract infection, pneumonia, among others. Patient placed on continuous cardiac monitoring and continuous pulse ox with initial blood pressure 175/73, heart rate 75, saturation 100% on room air. [Independent interpretation of EKG shows] sinus bradycardia with right bundle branch block morphology 50 bpm. ID [id number], QRS is 136, QTc 349 with normal axis. Patient was given IV fluids for symptomatic management[ and correction of underlying abnormalities]. Workup independently interpreted and significant for nonactionable CBC. Patient's chemistry with hyponatremia, acute kidney injury/acute renal failure with creatinine 4.1 and BUN 50 GFR 11. Patient's calcium also elevated at 13.1. Troponin negative. On independent interpretation of imaging, patient has no acute intracranial hemorrhage. Rest of scans were pending at time of handoff to oncoming physician Food Service Director disclaimer Much of this encounter note is an electronic electrical prospecting supervisor spoken language to printed text. Electronic electrical prospecting supervisor of the spoken language may permit errors. Although I have reviewed the note, some errors may still exist. Santiago: Upon my assumption of care patient is continuing to be altered. She is oriented to herself and her daughter at bedside but disoriented to time, location, and president. She states she feels good and reports being pain-free at this time. Abdomen is soft and nontender. Urinalysis pending. Labs are concerning for acute renal failure, no hyperkalemia, she is hypercalcemic. I believe her altered mental status is likely a combination of UTI, possibly uremia, electrolyte derangements, dehydration. I got additional history from daughter at bedside who reports the patient was started on Lasix in the last 7 to 10 days as well for leg swelling. I am concerned that this could potentially be contributing to her kidney and electrolyte derangements. CT head personally turbid it does not demonstrate acute intracranial bleed, mass, or midline shift. See radiology read for final interpretation. CT chest does not demonstrate pulmonary infiltrate on my personal interpretation, see radiology read for full interpretation. CT abdomen pelvis demonstrates evidence of cystitis. See radiology read for full interpretation which also discusses mesenteric and omental edema but patient has benign abdominal exam and normal lactic. I reviewed all lab and imaging results with the patient's daughter at bedside. Patient had not yet been started on IV antibiotics and with her report of UTI which is consistent at least in part with her symptoms, I wanted to cover her for potential urinary pathogens but with her significant illness I wanted to cover more broadly. I called the [facility] e-care pharmacist cinnamon grinder, John, and we discussed the patient's labs, weight, and my desired antibiotic coverage. He recommended Zosyn 2.25 g every 8 hours. This is being administered to the patient. Patient requires transfer to higher level of care that has dialysis capabilities. She is still making urine but may very well need dialysis for her acute renal failure, electrolyte derangements, encephalopathy. Family is comfortable with this plan and agrees with potential transfer to [place]. I called [place] and discussed this case with hospital nurse practitioner Rizwana Danielson. After reviewing lab and imaging results as well as patient's current symptoms, she graciously accepted the patient for admission under Dr. Young. Awaiting a bed assignment at this time. Bed assignment provided at 0118. Patient will be going to [place] ICU. Patient requires ALS transfer for continued cardiac monitoring and medication administration. Awaiting ambulance availability at this time. Repeat troponin also 0.02, no change. UA with elevated WBCs and trace bacteria, consistent with potentially partially treated UTI. [id number] Patient was reassessed immediately prior to transfer, airway intact, pleasantly altered, GCS stable from previous. Transferred in serious but currently stable condition Critical Care <Vitaliy Cartwright MD - Last Filed: 06/06/24 23:15> Critical Care Time Critical Care Time: Yes (renal) Attestation: On 06/06/24, the high probability of a clinically significant, sudden or life threatening deterioration of the following system(s) required my full and direct attention, intervention and personal management. The time I documented below is in addition to time spent performing reported procedures but includes the following listed in this critical care notation. Total Time Total Critical Care Time: 35
[2024-06-06 23:32] VITALS: BP 149/65; PULSE 51; O2SAT 95
[2024-06-07] VITALS: BP 139/63; PULSE 55; O2SAT 95
[2024-06-07 00:30] VITALS: BP 159/68; PULSE 53; O2SAT 95
--- NOTE | 2024-06-07 00:51 | PC.NURSE ---
Called [facility] for a transfer to [place] for pt
[2024-06-07 00:55] LABS: Microscopic, Urine URINE MICROSCOPIC (MICROSCOPIC)
[2024-06-07 01:00] VITALS: BP 154/69; PULSE 56; O2SAT 96
[2024-06-07] MEDS: PIPERACILLIN/TAZO 2.25 GM in 0.9 % SODIUM CHLORIDE 50 ML IV (01:01)
[2024-06-07 01:07] LABS: Appearance,Urine CLEAR (Clear); Bilirubin,Urine Negative (Negative); Blood, Urine MODERATE (Negative); Color,Urine YELLOW (Yellow); Glucose,Urine (UA) Negative (Negative); Ketones,Urine Negative (Negative); Leukocyte Esterase,Urine LARGE (Negative); Nitrate,Urine Negative (Negative); PH,Urine 7.5 (5.0-8.5); Protein,Urine TRACE (Negative); Urobilinogen,Urine 0.2 EU/dl (0.2)
[2024-06-07 01:12] LABS: Bacteria,Urine Trace /lpf; RBC,Urine Occasional #/hpf (0-3)
[2024-06-07 01:25] VITALS: BP 158/74; PULSE 54; RESP 18; TEMP 37.2; O2SAT 96
[2024-06-07 01:30] VITALS: BP 141/61; PULSE 56; O2SAT 94
[2024-06-07 01:40] LABS: Troponin I 0.02 ng/ml (0.00-0.034)
== END 2024-06-07 03:12 | disposition short-term general hospital (02) ==
PROVIDERS: Emergency Medicine; Emergency Provider Emergency Medicine; PCP Physician Assistant
DX: R41.82 Altered mental status, unspecified (principal); E83.52 Hypercalcemia; E87.1 Hypo-osmolality and hyponatremia; N17.9 Acute kidney failure, unspecified; R53.83 Other fatigue; R63.8 Other symptoms and signs concerning food and fluid intake; I10 Essential (primary) hypertension; E78.5 Hyperlipidemia, unspecified; I48.91 Unspecified atrial fibrillation; Z79.01 Long term (current) use of anticoagulants
CPT/HCPCS: 70450; 71250; 74176; 80053; 81001; 83605; 84484; 85025; 87040; 87086; 93005; 96361; 96365; 99291; J2543; J7120

== ENCOUNTER 2024-06-19 12:20 | Outpatient (CLI) | payer MEDICARE, MEDICAID, SELFPAY ==
[2024-06-19 12:56] LABS: Basophils # 0.1 K/mm3 (0-0.2); Basophils % 0.7 % (0.1-2.0); Eosinophils # 0.4 K/mm3 (0.0-0.4); Eosinophils % 5.1 % (0.1-12.0); Hematocrit 30.1 % (37.0-47.0); Hemoglobin 9.7 g/dL (12.2-16.2); Lymphocytes # 1.6 K/mm3 (0.7-4.5); Lymphocytes % 20.7 % (10-50); Mean Corpuscular HGB Conc 32.2 g/dL (31.8-35.4); Mean Corpuscular Hemoglobin 27.8 pg (27.0-31.2); Mean Corpuscular Volume 86.2 fl (81-99); Monocytes # 0.7 K/mm3 (0.1-1.0); Monocytes % 8.5 % (1.7-9.3); Neutrophils % 64.7 % (37.0-80.0); Platelet Count 396 K/mm3 (142-424); Red Blood Count 3.49 M/mm3 (4.20-5.40); Red Cell Distribution Width 22.6 % (11.5-17.5); White Blood Count 7.7 K/mm3 (4.8-10.8)
[2024-06-19 13:45] LABS: Chloride 97 mmol/L (98-107)
[2024-06-19 13:46] LABS: Potassium 4.6 mmoL/L (3.5-5.1); Sodium 136 mmol/L (136-145)
[2024-06-19 13:47] LABS: Alanine Aminotransferase 17 U/L (12-78); Albumin Level 3.6 g/dl (3.5-5.0); Alkaline Phosphatase 96 U/L (38-126); Aspartate Amino Transferase 19 U/L (14-36); Bilirubin,Direct 0.2 mg/dl (0.0-0.4); Bilirubin,Indirect 0.4 mg/dL (0.0-0.9); Bilirubin,Total 0.6 mg/dl (0.2-1.3); Bilirubin,Unconjugated 0.5 mg/dL (0.0-1.1); Chol/HDL Ratio 5.5 (1-3.5); Cholesterol 175 mg/dl (140-200); HDL Cholesterol 32 mg/dl (40-60); Magnesium 2.8 mg/dl (1.6-2.3); Total Protein,Serum 6.3 g/dl (6.3-8.2); Triglycerides 157 mg/dl (30-150); VLDL Cholesterol 31 mg/dL (0-40)
[2024-06-19 13:48] LABS: Alanine Aminotransferase 18 U/L (12-78); Alkaline Phosphatase 100 U/L (38-126); Anion Gap 12.6 mEq/L (5-15); Aspartate Amino Transferase 23 U/L (14-36); Bilirubin,Total 0.7 mg/dl (0.2-1.3); Blood Urea Nitrogen 23 mg/dl (7-17); Carbon Dioxide 31 mmol/L (22.0-30.0); Estimated Glomerular Filt Rate 31 ml/min (>60); GFR (African American) 38 ML/MIN (>60)
[2024-06-19 13:49] LABS: Albumin/Globulin Ratio 1.4 (1.1-1.8); Calcium 11.6 mg/dl (8.4-10.2); Globulin 2.9 g/dL (1.3-3.2); Glucose 111 mg/dl (74-100); Iron 106 ug/dL (37-170); Total Protein,Serum 6.9 g/dl (6.3-8.2)
[2024-06-19 13:58] LABS: Direct LDL Cholesterol 93.53 mg/dL (100-129)
[2024-06-19 14:03] LABS: Free T4 (Free Thyroxine) 1.54 ng/dl (0.78-2.19)
[2024-06-19 14:18] LABS: Thyroid Stimulating Hormone 1.85 uIU/mL (0.465-4.68)
[2024-06-19 14:21] LABS: Ferritin 260 ng/ml (11.1-264)
== END 2024-06-19 23:59 | disposition home or self-care (01) ==
PROVIDERS: Physician Assistant; PCP Family Medicine; Visit Provider Nurse Practitioner Family
DX: E83.52 Hypercalcemia (principal); I48.0 Paroxysmal atrial fibrillation; D62 Acute posthemorrhagic anemia; I10 Essential (primary) hypertension; E78.2 Mixed hyperlipidemia
CPT/HCPCS: 36415; 80053; 80061; 80076; 82728; 83540; 83735; 84439; 84443; 85025

== ENCOUNTER 2024-09-17 10:04 | Outpatient (CLI) | payer MEDICARE, MEDICAID, SELFPAY ==
--- OUTSIDE RECORDS SUMMARY | 2024-08-15 14:30 | XMS_ITS | Encounter Summary ---
Author Organization [place] [address] Care Team Providers Care Cnc Machinist Name Role Phone Unavailable Primary Care Provider Unavailabl e Reason for Referral * MRI/CAT Scan (Routine) - Authorized Specialty Diagnoses / Procedures Referred By Contac t Referred To Contact Radiology Diagnoses Colostomy status (HCC) Procedures CT ABDOMEN PELVIS W CONTRAST Monica Arzola MD [address] [place] [address] [address] [place] [address] Phone: tel: fax: Referral ID Status Reason Start Date Expiration Date V isits Requested Visits Authorized [id number] Authorized 08/15/2024 08/15/2025 1 1 Reason for Visit * Reason Comments Other * Consultation (Routine) - Authorized Specialty Diagnoses / Procedures Referred By Contac t Referred To Contact Diagnoses Ileostomy in place (HCC) Procedures ID OFFICE/OUTPATIENT NEW MODERATE MDM 45 MINUTES Leta Dupont MD [address] [place] [address] Phone: tel: fax: Monica Arzola MD [address] [place] [address] [address] [place] [address] Phone: tel: fax: Referral ID Status Reason Start Date Expiration Date V isits Requested Visits Authorized [id number] Authorized 07/10/2024 07/10/2025 99 99 Encounter Details Date Type Department Care Team (Late st Contact Info) Description 08/15/2024 2:30 PM EDT Office Visit SEP COLORECTAL EDG [address] [facility] [address] [place] [address] Monica Arzola MD [address] [facility] [address] [address] [place] [address] Colostomy status (HCC) (Primary Dx) Social History Tobacco Use Types Packs/Day Years Used Date Smoking Tobacco: Never Smokeless Tobacco: Never Tobacco Cessation:Counseling Given: Not Answered Comments No Sex and Gender Information Value Date Recorded Sex Assigned at Not on file Legal Sex Female 3:37 PM EDT Gender Identity Not on file Sexual Orientation Not on file documented as of this encounter Last Filed Vital Signs Vital Sign Reading Time Taken Comments Blood Pressure 112/58 08/15/2024 2:46 PM EDT Pulse 77 08/15/2024 2:46 PM EDT Temperature 36.3 C (97.3 F) 08/15/2024 2:46 PM EDT Respiratory Rate 12 08/15/2024 2:46 PM EDT Oxygen Saturation - - Inhaled Oxygen Concentration - - Weight 51.1 kg (112 lb 9.6 oz) 08/15/2024 2:46 P M EDT Height 147.3 cm (4' 10 ) 08/15/2024 2:46 PM EDT Body Mass Index 23.53 08/15/2024 2:46 PM EDT documented in this encounter Progress Notes * Monica Arzola MD - 08/15/2024 2:30 PM EDT Images from the original note were not included. Referring provider: Leta Dupont,* History of Presenting Illness: 79 y.o. female presents to discuss reversing her stoma. We do not have records from her original surgery but per the patient and her family members in March 2024 she had episode of acute abdominal pain and constipation. She went to the ER and was told she had a perforation in her colon. She underwent emergency surgery and had a colon resection with a colostomy. Since then her hospital course was complicated by CHF and renal failure which have improved with time. She has recovered, is currently managing her stoma, and would like it reversed. She has never had a colonoscopy ever before in herlife. She denies any nausea or vomiting and is having regular bowel function via stoma. She denies any output by her rectum. She was seen by our urogynecology team for pelvic organ prolapse and was sent for referral to see if we can reverse her stoma at the same time as her surgery. After note she does have a history of A-fib and is on Eliquis. In addition to having her stoma she does have a hernia around her stoma as well that bothers her and makes it hard to pouch. Urogynecology note Ileostomy present Patient was told by surgeons at [facility] that they don't want to touch her and will not reverse ileostomy. Due to peristomal hernia she has had a lot of difficulty managing the ostomy bag. She would like to have this reversed at the time of colpocleisis if possible. - Will refer to CRS to discuss whether reversal is recommended and possibly coordinating combined surgery, and correspondence sent today to review her case Relevant GI history: Last colonoscopy: Never Family history: None History of GI surgery: Yes, ex lap with colon resection and colostomy History of GI bleeding: None History of diarrhea/ constipation: None History of urinary/ GI incontinence: None PAST MEDICAL HISTORY Past 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: Diagnosis Date Essential (primary) hypertension Mixed hyperlipidemia Paroxysmal atrial fibrillation (HCC) FAMILY HISTORY No family history on file. SOCIAL HISTORY Social History Socioeconomic History Marital status: SURGICAL HISTORY No past surgical history on file. ALLERGIES: No Known Allergies Vitals: There were no vitals filed for this visit. Physical Exam: General: Comfortable, in no acute distress Skin: Warm and dry with normal skin turgor Neuro: Grossly intact, Alert awake and oriented Psychiatric: Appropriate mood and affect Resp: B/L symmetric respiratory excursion CV: Regular GI/Abd: A detailed abdominal exam was performed. Abdomen is soft, nontender, non-distended. Left-sided colostomy in place with hernia around it. The stoma itself appears to be a end colostomy based on just the exterior appearance. Labs: No results found for: CEA No results found for: WBC , HGB , HCT , MCV , PLT No results found for: NA , K , CL , CO2 , BUN , LABALBU , CREATININE , CALCIUM , GFRAA , GFRNONAA , GLU No results found for: PT , INR , APTT Imaging: No results found for this or any previous visit. No results found for this or any previous visit. No results found for this or any previous visit. No results found for this or any previous visit. No results found for this or any previous visit. No results found for this or any previous visit. Assessment and Plan: 79 y.o. female presents to discuss the feasibility of reversal of her stoma after having recent surgery in March 2024. I reviewed the fact that I do not have any of the records currently so I cannot give her my full recommendations about the feasibility and safety of reversing her stoma at this time. I would like to do further workup prior to discussing reversal of her stoma. Once the below workup has been completed we can reconvene and then discuss if fistula can be reversed or not, the risk and benefits of reversal, and the feasibility of it. Plan: - Obtain a colonoscopy via the stoma and by her rectum as patient has never had one before. - Gastrografin enema to determine the length and condition of her rectum, and rule out any fistulasor stenosis - CT abdomen pelvis with oral and IV contrast to understand her anatomy, see the length of her existing colon, and use it for operative planning - Obtain op reports from her surgery in March including any other relevant records - Once we have done the above she will need proper restratification to determine her safety for surgery from a medical standpoint. Once we have completed all this we can discuss with urogynecology tosee if we can do the surgery with them and whether it should done minimally invasive or an open fashion. I would like to thank Leta Dupont * for referring the patient to colorectal surgery. Medical decision making- I reviewed the patient's past medical, family, social history, current medications, all the relevant labs and imaging studies as necessary. I discussed with the patient aboutpathophysiology of the condition, including management options including medical treatment, less invasive procedures to more invasive options including surgery. The patient indicated understanding ofabove mentioned and agreed with the plan, all questions were answered. Dr. Monica Arzola MD Colon and Rectal Surgeon [facility] Office phone ([place]/ [place]): [phone] documented in this encounter Plan of Treatment Upcoming Encounters Date Type Department Care Team (Late st Contact Info) Description 09/23/2024 10:30 AM EDT Appointment [facility] CT [address] [place] [address] Monica Arzola MD [address] [place] [address] 10/03/2024 9:30 AM EDT Appointment [facility] ENDOSCOPY [facility] [place] [address] Monica Arzola MD [address] [place] [address] Scheduled Orders Name Type Priority Associated Diagnoses Orde r Schedule CT ABDOMEN PELVIS W CONTRAST Imaging Routine Colostomy status (HCC) 1 Occurrences starting 08/15/2024 until 08/15/2025 documented as of this encounter Visit Diagnoses Diagnosis Colostomy status (HCC)- Primary Colostomy status documented in this encounter Historical Medications * This list may reflect changes made after this encounter. ferrous sulfate 325 mg (65 mg iron) Oral Tablet, Delayed Release (E.C.) Take 325 mg by mouth daily (with breakfast). 03/01/2024 Denosumab (PROLIA) 60 mg/mL SubQ Syringe Inject 60 mg under the skin Every 6 Months. 01/17/2023 acetaminophen (TYLENOL) 500 mg Oral Tablet Take 500 mg by mouth every 6 hours. 03/28/2024 aspirin 81 mg Oral tablet Take 81 mg by mouth every 24 hours. 03/29/2024 added in this encounter
--- OUTSIDE RECORDS SUMMARY | 2024-08-16 11:00 | XMS_ITS | Encounter Summary ---
Author Organization [place] [address] Care Team Providers Care Organ Tuner Electronic Name Role Phone Unavailable Primary Care Provider Unavailabl e Reason for Visit * In Office Procedure (Routine) - Authorization Not Needed Specialty Diagnoses / Procedures Referred By Contac t Referred To Contact Physician Orthopaedic Doctor / Gynecology Diagnoses Frequency of micturition UDE Procedures IL COMPLX CYSTOMETRO W/VOID PRESS & URETHRAL PROFIL IL COMPLEX UROFLOMETRY IL EMG STDS ANAL/URTL SPHNCTR OTH/THN NDL IL VOID PRESSURE STUDIES INTRAABDOMINAL URODYNAMICS Leta Dupont MD [address] [place] [address] Phone: tel: fax: Antonina Ji PA-C [address] [place] [address] Phone: tel: fax: Referral ID Status Reason Start Date Expiration Date Visits Requested Visits Authorized [id number] Authorization Not Needed 08/16/2024 08/16/2025 1 1 Encounter Details Date Type Department Care Team (Latest Contact Info) Description 08/16/2024 11:00 AM EDT Procedure visit SEP Urogynecology [address] [address] Antonina Ji PA-C [address] [place] [address] Mixed stress and urge urinary incontinence (Primary Dx); Urine frequency; Uterovaginal prolapse, incomplete; Ileostomy in place (HCC) Social History Tobacco Use Types Packs/Day Years Used Date Smoking Tobacco: Never Smokeless Tobacco: Never Comments No Sex and Gender Information Value Date Recorded Sex Assigned at Not on file Legal Sex Female 3:37 PM EDT Gender Identity Not on file Sexual Orientation Not on file documented as of this encounter Progress Notes * Antonina Ji PA-C - 08/16/2024 11:00 AM EDT Images from the original note were not included. Antonina Ji PA-C Procedure Note: Urodynamic Evaluation Alesha Szymanski 1945 Urodynamicist: Antonina Ji PA-C Equipment: Yabbly Brief History/Indication: Patient is a 79 y.o. female with a diagnosis of LINDA, urinary frequency, Stage 3 POP, incomplete bladder emptying, and s/p ileostomy placement, who presents for a urodynamic evaluation. Patient is planning for elective surgical management of POP with Dr. Dupont. Procedure: The patient was taken to the urodynamics suite and a free urine flow was not obtained (because patient was unable to void), followed by catheterization for residual urine. Her pessary was kept in forthe procedure. A double-lumen urodynamic catheter was introduced to the bladder for measuring bladder pressure and filling. A vaginal catheter was inserted to record the abdominal pressure. EMG patchelectrodes were placed tonio-anally for recording activity of the anal sphincter. The entire processwas displayed and analyzed using the Yabbly Urodynamic machine and software. FINDINGS Uroflow: Findings Normal Values Urine Dip Negative for nitrites Normal Voided Volume 0 ml PVR 250 ml < 150 ml Comments Patient was unable to void for Uroflow Cystometrogram: Findings Goal Numbers First Sensation of Filling 44 ml First Desire 131 ml Strong Desire 151 ml Capacity 199 ml 250 ml Comments None Leak Point Pressures: Subjective CHAZ? No Cough Valsalva Normal Values Capacity: 200 ml No leak No leak ALPP > 60 cm H2O Reduction of prolapse Yes with her pessary Comments No CHAZ MUCP: MUCP Normal Pull 1 40 > 20 Pull 2 38 > 20 Pressure Voiding Study: Findings Goal Numbers Comments Patient unable to void with catheters in place Patient unable to void after catheters removed -Catheterization emptied 350 ml EMG: Findings Activity Present Yes Correlates Yes Assessment: Urinary retention with no clear evidence of a detrusor contraction during attempted void OAB No CHAZ Patient does report CHAZ at baseline. However with documented urinary retention and possible detrusor hypo- or acontractility, I recommend staged approach to sling if CHAZ worsens following prolapse repair, as long as bladder emptying normalizes. Plan: Questions regarding POC answered to the best of my ability. Patient aware to expect urethral irritation; call office for any unresolved or worsening symptoms. Will return to discuss management options; consent visit scheduled with Dr. Dupont on 09/04. Antonina Ji PA-C [facility] Urogynecology [address] [address] 08/16/24 11:31 AM documented in this encounter Plan of Treatment Upcoming Encounters Date Type Department Care Team (Late st Contact Info) Description 09/23/2024 10:30 AM EDT Appointment [address] [place] [address] Monica Arzola MD [address] [place] [address] [place] [address] 10/03/2024 9:30 AM EDT Appointment [facility] ENDOSCOPY [facility] [place] [address] Monica Arzola MD [address] [place] [address] [address] [place] [address] documented as of this encounter Procedures Procedure Name Priority Date/Time Associated Diagnosis Comments SEP URINALYSIS POC Routine 08/16/2024 10 :53 AM EDT Urine frequency documented in this encounter Results * (ABNORMAL) [facility] URINALYSIS POC (08/16/2024 10:53 AM EDT) UA Color POC Yellow Color 08/16/2024 10:56 AM EDT [facility] UA Appear POC Cloudy(A) Clear 08/16/2024 10:56 AM EDT [facility] UA Gluc POC Negative Negative mg/dL 08/16/2024 10:56 AM EDT [facility] UA Bili POC Negative Negative 08/16/2024 10:56 AM EDT [facility] UA Ketones POC Negative Negative mg/dL 08/16/2024 10:56 AM EDT [facility] UA SG POC 1.015 1.001 - 1.035 no units 08/16/2024 10:56 AM EDT [facility] UA Blood POC Small(A) Negative 08/16/2024 10:56 AM EDT [facility] UA pH POC 7.0 5.0 - 8.0 pH 08/16/2024 10:56 AM EDT [facility] UA Protein POC Negative Negative mg/dL 08/16/2024 10:56 AM EDT [facility] UA Urobilinogen POC 0.2 0.2, 1.0 08/16/2024 10:56 AM EDT [facility] UA Nitrite POC Negative Negative 08/16/2024 10:56 AM EDT [facility] UA Leuk Est POC Moderate(A) Negative 08/17/19 25 10:56 AM EDT [facility] Urine STRUCTURE OF URINARY TRACT PROPER / Unknown 08/16/2024 10:53 AM EDT 08/16/2024 10:56 AM EDT us Antonina Ji PA-[place] POINT OF CARE TEST OR DERABLES Final Result [facility] UROG[address]ECOLOG[address] [place] [address] documented in this encounter Visit Diagnoses Diagnosis Mixed stress and urge urinary incontinence- Primary Mixed incontinence urge and stress (male)(female) Urine frequency Urinary frequency Uterovaginal prolapse, incomplete Ileostomy in place (HCC) Ileostomy status documented in this encounter
--- OUTSIDE RECORDS SUMMARY | 2024-09-04 14:00 | XMS_ITS | Encounter Summary ---
Author Organization [place] [address] Care Team Providers Care Pants Busheler Name Role Phone Unavailable Primary Care Provider Unavailabl e Reason for Referral * (Routine) - Pending Review Specialty Diagnoses / Procedures Referred By Contac t Referred To Contact Diagnoses Uterovaginal prolapse, incomplete Procedures AMB UROGYN SURGERY COMMUNICATION ORDER Leta Dupont MD [address] [place] [address] Phone: tel: fax: Referral ID Status Reason Start Date Expiration Date V isits Requested Visits Authorized [id number] Pending Review 09/04/2024 09/04/2025 1 1 Encounter Details Date Type Department Care Team (Late st Contact Info) Description 09/04/2024 2:00 PM EDT Office Visit SEP Urogynecology [address] [address] Leta Dupont MD [address] [place] [address] Uterovaginal prolapse, incomplete (Primary Dx) Social History Tobacco Use Types Packs/Day Years Used Date Smoking Tobacco: Never Smokeless Tobacco: Never Comments No Sex and Gender Information Value Date Recorded Sex Assigned at Not on file Legal Sex Female 3:37 PM EDT Gender Identity Not on file Sexual Orientation Not on file documented as of this encounter Progress Notes * Leta Dupont MD - 09/04/2024 2:00 PM EDT Images from the original note were not included. Surgery Consent Alesha Szymanski 1945 HPI: Patient is a 79 y.o. year old female here for follow up of prolapse. She presents for review of herbladder testing and for surgery consent. All prior notes reviewed in detail and patient's questions are answered in full. Lab Results Component Value Date CULTURE Positive Growth (A) 07/10/2024 CULTURE 1,000 CFU/mL Corynebacterium striatum group 07/10/2024 Patients past medical, family and social histories were reviewed and updated. There were no changesexcept as noted. Physical Exam There were no vitals filed for this visit. Physical Exam General: well-groomed, no distress Psych: Normal affect Lungs: Normal work of breathing Abdomen: non-distended Pelvic Exam previously done on 07/10/24: POPQ Aa = +3 Ba = +3 C = -3 Gh = 4 Pb = 6 Tvl = 10 Ap = -1 Bp = -1 D = -4 Assessment/Plan: Alesha Szymanski is a 79 y.o. female desiring surgical management of: Stage III Pelvic Organ Prolapse Pathophysiology of the above condition(s) reviewed along with a discussion of treatment options. Patient would like to proceed with surgery. I discussed both vaginal tolowa dee-ni' tissue repairs and abdominal[facility] I also reviewed obliterative procedures, with success rates of about 95%, but this option would close the vagina and preclude penetrative vaginal intercourse in the future. We discussed each treatment approach in detail. After our discussion, the patient indicates that she would like vaginal closure, understanding that it precludes penetrative vaginal intercourse in thefuture. I reviewed the planned surgical approach. I explained that success rates in prolapse repair with this approach are estimated to be about 95%. I reminded her that this surgery precludes any future vaginal intercourse, and she confirms that she does not desire future intercourse. I also explained that if she develops any uterine pathology in the future, this will not be able to be assessed vaginally and she may require more invasive surgery if this occurs. I reviewed risks associated with prolapse surgery including new or worsening of stress urinary incontinence, and urinary retention post-op that may require short-term indwelling Huynh catheter. I reminded her that surgery for prolapse addresses the symptomatic bulge, but does not address pelvic pain, and may or may not have benefit on bladder symptoms or defecatory symptoms. I reminded the patient that while OAB/UUI may improve in 50% of patients undergoing prolapse repair, I cannot guarantee this outcome and she may require additional treatment for OAB/UUI following prolapse repair. I reviewed risks of surgery including risk of bleeding with potential need for blood transfusion (patient accepts a blood transfusion in case of an emergency), infection, and injury to surrounding organs. Should injury to another organ occur, I counseled her that in most cases this is recognized atthe time of surgery and repaired at that time, however in the rare case that it is recognized post-operatively, it may require additional surgery. I also reviewed increased post-operative risks including deep vein thrombosis, pulmonary embolism, heart attack, stroke, and . 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 She does report CHAZ at baseline. I again reviewed the risk of new or worsened CHAZ following prolapse repair, and I explained that midurethral slings can be placed at the time of prolapse repair to help reduce the risk of CHAZ after surgery. However, with persistent retention noted on UDE, I recommend proceeding without concomitant MUS at time of prolapse repair and treat in a staged fashion if CHAZ develops. Typical tonio-operative course and post-op restrictions reviewed. All questions answered. Written informed consent was obtained. Patient informed that she will need to obtain medical risk stratification and recommendations on holding medication(s) from PCP within 30 days prior to surgery. Patient is consented for: [place] colpocleisis, posterior repair with levator plication, cystoscopy *will need cardiology clearance and recommendations on tonio-op anticoagulation *Communication sent to Dr. Arzola regarding pre-surgical work up and possible combined procedures - Patient is candidate for removal of catheter in office if she develops post op urinary retention - Patient does consent to students being present in the OR - Patient does consent to students having hands-on participation in the procedure, including performing exams that may include a pelvic or rectal exam as indicated. However I explained that the surgical procedure would be performed by me, and the student would not be performing the surgery. - Patient does consent to having pictures taken for learning purposes during surgery Patient may return to normal activity at 6 weeks without restrictions. Time-Based Billing Statement I spent 45 minutes in the care of this patient on this calendar day. Activities performed during this time include: Counseling and educating, Referring and communicating with another professional, Documenting clinical information in the EHR, and Care coordination The total time documented above did not include the following activities which were also performed on this calendar day: None Leta Dupont MD, FACOG, [facility] Division of Urogynecology and Reconstructive Pelvic Surgery [address] [place] [address] [email or web address] 09/04/24 3:12 PM documented in this encounter Plan of Treatment Upcoming Encounters Date Type Department Care Team (Late st Contact Info) Description 09/23/2024 10:30 AM EDT Appointment [address] [place] [address] Monica Arzola MD [address] [place] [address] [place] [address] 10/03/2024 9:30 AM EDT Appointment [facility] ENDOSCOPY [facility] [place] [address] Monica Arzola MD [address] [place] [address] [address] [place] [id number] documented as of this encounter Visit Diagnoses Diagnosis Uterovaginal prolapse, incomplete- Primary documented in this encounter Orders Nursing Count Last Ordered Date First Orde red Date AMB UROGYN SURGERY COMMUNICATION ORDER 1 documented in this encounter
--- OUTSIDE RECORDS SUMMARY | 2024-09-16 08:19 | XMS_ITS | Encounter Summary ---
Author Organization [place] [address] Care Team Providers Care Photostatic Copy Maker Name Role Phone Unavailable Primary Care Provider Unavailabl e Reason for Referral * Diagnostic X-Ray (Routine) - Pending Review Specialty Diagnoses / Procedures Referred By Clover t Referred To Contact Radiology Diagnoses Colostomy status (HCC) Procedures FL BARIUM ENEMA Monica Arzola MD [address] [place] [address] [address] [place] [address] Phone: tel: fax: Referral ID Status Reason Start Date Expiration Date V isits Requested Visits Authorized [id number] Pending Review 09/06/2024 09/06/2025 1 1 Reason for Visit * Diagnostic X-Ray (Routine) - Pending Review Specialty Diagnoses / Procedures Referred By Clover osman Referred To Contact Radiology Diagnoses Colostomy status (HCC) Procedures FL BARIUM ENEMA Monica Arzola MD [address] [place] [address] [address] [place] [address] Phone: tel: fax: Referral ID Status Reason Start Date Expiration Date V isits Requested Visits Authorized [id number] Pending Review 09/06/2024 09/06/2025 1 1 Encounter Details Date Type Department Care Team (Latest Contact Info) Description 09/16/2024 8:19 AM EDT - 09/16/2024 11:59 PM EDT Hospital Encounter [facility] [address] [place] [address] Monica Arzola MD [address] [place] [address] [address] [place] [address] Colostomy status (HCC) Discharge Disposition: Home or Self Care Social History Tobacco Use Types Packs/Day Years Used Date Smoking Tobacco: Never Smokeless Tobacco: Never Comments No Sex and Gender Information Value Date Recorded Sex Assigned at Not on file Legal Sex Female 3:37 PM EDT Gender Identity Not on file Sexual Orientation Not on file documented as of this encounter Medications at Time of Discharge acetaminophen (TYLENOL) 500 mg Oral Tablet Take 500 mg by mouth every 6 hours. 03/28/2024 apixaban (ELIQUIS) 5 mg Oral Tablet Take by mouth 2 times daily. aspirin 81 mg Oral tablet Take 81 mg by mouth every 24 hours. 03/29/2024 atorvastatin (LIPITOR) 10 mg Oral Tablet Take 10 mg by mouth daily. carvediloL (COREG) 12.5 mg Oral Tablet Take by mouth 2 times daily (with meals). Denosumab (PROLIA) 60 mg/mL SubQ Syringe Inject 60 mg under the skin Every 6 Months. 01/17/2023 esomeprazole (NEXIUM) 20 mg Oral Capsule, Delayed Release(E.C.) Take 20 mg by mouth daily. ferrous sulfate 325 mg (65 mg iron) Oral Tablet, Delayed Release (E.C.) Take 325 mg by mouth daily (with breakfast). 03/01/2024 magnesium aspart,citrate,ox piotr 400 mg magnesium Oral Capsule 400 mg. NIFEdipine (ADALAT CC) 90 mg Oral Tablet Sustained Release Take 90 mg by mouth. polyethylene glycol (GOLYTELY) 236-22.74-6.74 -5.86 gram Oral Recon SolnIndications:C olostomy status (HCC),Colostomy present (HCC),Perforation of intestine (HCC) At 2 pm on the day prior, drink THE ENTIRE volume. Clear liquids ALL DAY prior. 4000 mL 09/11/2024 Vit B Comp & C-Vit E-FA-Laura-Zn 0.4 mg Oral Tablet 1 Tablet. documented as of this encounter Discharge Disposition Disposition Code Departure Means Destination Home or Self Care documented in this encounter Plan of Treatment Upcoming Encounters Date Type Department Care Team (Late st Contact Info) Description 09/23/2024 10:30 AM EDT Appointment [facility] [address] [place] [address] Monica Arzola MD [address] [place] [address] [address] [place] [address] 10/03/2024 9:30 AM EDT Appointment EDG ENDOSCOPY [facility] [place] [address] Monica Arzola MD [address] [facility] [address] [place] [address] documented as of this encounter Procedures Procedure Name Priority Date/Time Associated Diagnosis Comments FL BARIUM ENEMA Routine 09/16/2024 9:27 AM EDT Colostomy status (HCC) documented in this encounter Results * FL BARIUM ENEMA (09/16/2024 9:27 AM EDT) Anatomical Region Laterality Modality Abdomen, Pelvis Radio Fluoroscop y 09/16/2024 9:27 AM EDT Impressions 09/16/2024 3:52 PM EDT No stricture identified. Note, contrast does not reach the ostomy. - Note: Radiology results need to be interpreted within a comprehensive clinical context. If you have questions about the radiology report, please contact the office of the ordering clinician. Narrative 09/16/2024 3:52 PM EDT CONTRAST ENEMA, 09/16/2024 9:27 AM CLINICAL HISTORY: Z93.3-Colostomy status (HCC)-ICD-10-CM COMPARISON: None. PROCEDURE COMMENTS: Routine single contrast enema. The enema tip was carefully inflated with fluoroscopic visualization. Fluoroscopy was used for a total of 0.9 minutes. Total of 12 images retained in PACS. FINDINGS: Model Making Supervisor film the abdomen demonstrates moderate stool burden in the colon. Rectum, sigmoid colon are not dilated. No stricture identified. Note, contrast does not reach the ostomy. Procedure Note Supa Nair MD - 09/16/2024 CONTRAST ENEMA, 09/16/2024 9:27 AM CLINICAL HISTORY: Z93.3-Colostomy status (HCC)-ICD-10-CM COMPARISON: None. PROCEDURE COMMENTS: Routine single contrast enema. The enema tip wascarefully inflated with fluoroscopic visualization. Fluoroscopy was used for atotal of 0.9 minutes. Total of 12 images retained in PACS. FINDINGS: Model Making Supervisor film the abdomen demonstrates moderate stool burden inthe colon. Rectum, sigmoid colon are not dilated. No stricture identified. Note,contrast does not reach the ostomy. IMPRESSION: No stricture identified. Note, contrast does not reach the ostomy. - Note: Radiology results need to be interpreted within a comprehensiveclinical context. If you have questions about the radiology report, please contactthe office of the ordering clinician. Monica Arzola MD IMG FLUOROSCOPY ORDERABLES Final Result documented in this encounter Visit Diagnoses Diagnosis Colostomy status (HCC) Colostomy status documented in this encounter Administered Medications Inactive Administered Medications - up to 1 most recent administrations Medication Order MAR Action Action Date Dose Rate Site diatrizoate meglumine-sodium (GASTROGRAFIN) 66-10 % solution 480 mL 480 mL, Rectal, ONCE PRN, 1 dose, Starting on Mon09/16/24 at 0850, Until Mon09/16/24 at 0850, Radiology Procedure, XRay/Fluoro (Contrasts) Given 09/16/2024 8:50 AM EDT 480 mL documented in this encounter Orders Medications Ordered That Frankie ht Not Have Been Administered Count Last Ordered Date First Ordered Date diatrizoate meglumine-sodium (GASTROGRAFIN) 66-10 % solution 480 mL 1 09/16/2024 documented in this encounter
--- OUTSIDE RECORDS SUMMARY | 2024-09-17 10:06 | XMS_ITS | Clinical Summary ---
Author Organization [facility] Address [address] [place] [address] Care Team Providers Care Miller Rod Mill Name Role Phone Ananth Almeida MD Primary Care Provider [phone] Social History Tobacco Use Types Packs/Day Years Used Date Smoking Tobacco: Never Assessed Comments Unknown Sex and Gender Information Value Date Recorded Sex Assigned at Not on file Legal Sex Female 6:32 PM EDT Gender Identity Not on file Sexual Orientation Not on file Last Filed Vital Signs Vital Sign Reading Time Taken Comments Blood Pressure 180/98 03/26/2024 10:33 PM EST Pulse 103 03/26/2024 10:33 PM EST Temperature 36.9 C (98.4 F) 03/26/2024 10:33 PM EST Respiratory Rate 30 03/26/2024 10:33 PM EST Oxygen Saturation 98% 03/26/2024 10:33 PM EST RA Inhaled Oxygen Concentration - - Weight 53.5 kg (118 lb) 09/05/2022 11:14 AM EDT Height 147.3 cm (4' 10 ) 09/05/2022 11:14 AM EDT Body Mass Index 24.66 09/05/2022 11:14 AM EDT Plan of Treatment Upcoming Encounters Date Type Department Care Team (Late st Contact Info) Description 10/10/2024 2:00 PM EDT Office Visit [facility] General Surgery [address] [place] [address] Bhupendra Aguilar MD [address] [place] [address] Health Maintenance Due Date Last Done Comments [facility]-Bone Density Scan 1945 [facility]-Depression Screening 1945 [facility]-Hepatitis C Screening 1945 [facility]-Medicare Annual Wellness (AWV) 1945 [facility]-/Child/Adol SDOH Screenings 1945 [facility]- SDOH Screenings 07/06/1965 [facility]-Adult SDOH Screenings 07/06/1965 [facility]-Zoster Vaccines (1 of 2) 07/06/1997 [facility]-RSV Vaccine: 60+ Years or (1 - 1-dose 75+ series) 07/06/2022 [id number] Vaccine (1 - 2023- season) 2023 [facility]-Influenza Vaccine (#1) 11/11/202404/14, 12/31/2019, 11/20/2017 [facility]-DTaP,Tdap,and Td Vaccines (2 - Td or Tdap) 08/03/2027 08/02/2017 [facility]-Pneumococcal Vaccine: 50+ Years Completed 12/28/2022, 04/14/2021, 11/20/2017 HPV Vaccines Aged Out No longer eligi ble based on patient's age to complete this topic [facility]-HIB Vaccines Aged Out No longer e ligible based on patient's age to complete this topic [facility]-Hepatitis A Vaccines Aged Out No longer eligible based on patient's age to complete this topic [facility]-IPV Vaccines Aged Out No longer e ligible based on patient's age to complete this topic [facility]-Rotavirus Vaccines Aged Out No lo nger eligible based on patient's age to complete this topic Insurance [facility] MEDICARE Care Teams Miller [employer] Mill Relationship Specialty Start Date End Date Ananth Almeida MD [address] [address] PCP - General 03/13/20
--- OUTSIDE RECORDS SUMMARY | 2024-09-17 10:06 | XMS_ITS | Referral Summary ---
Author Organization [employer] ([place], [place], [place], [place]) Address [address] [place] [address] Care Team Providers Care Edger Automatic Name Role Phone Unavailable Primary Care Provider Unavailabl e Social History Tobacco Use Types Packs/Day Years Used Date Smoking Tobacco: Never Assessed Comments Unknown Sex and Gender Information Value Date Recorded Sex Assigned at Not on file Legal Sex Female 11:44 PM SHOE LINING FITTER Gender Identity Not on file Sexual Orientation Not on file Plan of Treatment Not on file Insurance [facility] MEDICARE HMO MEDICAID B
--- OUTSIDE RECORDS SUMMARY | 2024-09-17 10:06 | XMS_ITS | Clinical Summary ---
Author Organization [facility] Address [address] [place] [address] Phone Care Team Providers Care Journeyman Welder Name Role Phone Unavailable Primary Care Provider Unavailabl e Allergies No known active allergies Medications magnesium aspart,citrate, oxide 400 mg magnesium Oral Capsule 400 mg. Active Vit B Comp & C-Vit E-FA-Laura-Zn 0.4 mg Oral Tablet 1 Tablet. Activ e NIFEdipine (ADALAT CC) 90 mg Oral Tablet Sustained Release Take 90 mg by mouth. Active apixaban (ELIQUIS) 5 mg Oral Tablet Take by mouth 2 times daily. Active carvediloL (COREG) 12.5 mg Oral Tablet Take by mouth 2 times daily (with meals). Active atorvastatin (LIPITOR) 10 mg Oral Tablet Take 10 mg by mouth daily. Active esomeprazole (NEXIUM) 20 mg Oral Capsule, Delayed Release(E.C.) Take 20 mg by mouth daily. Active aspirin 81 mg Oral tablet Take 81 mg by mouth every 24 hours. 03/29/2024 Active acetaminophen (TYLENOL) 500 mg Oral Tablet Take 500 mg by mouth every 6 hours. 03/28/2024 Active Denosumab (PROLIA) 60 mg/mL SubQ Syringe Inject 60 mg under the skin Every 6 Months. 01/17/2023 Active ferrous sulfate 325 mg (65 mg iron) Oral Tablet, Delayed Release (E.C.) Take 325 mg by mouth daily (with breakfast). 03/01/2024 Active polyethylene glycol (GOLYTELY) 236-22.74-6.74 -5.86 gram Oral Recon SolnIndications :Colostomy status (HCC),Colostomy present (HCC),Perforati on of intestine (HCC) At 2 pm on the day prior, drink THE ENTIRE volume. Clear liquids ALL DAY prior. 4000 mL 09/11/2024 Active Active Problems Problem Noted Date Diagnosed Date Insomnia 07/10/2024 Mixed stress and urge urinary incontinence 07/10 Aortic valve regurgitation 04/01/2024 Ascites 04/01/2024 Colostomy present 04/01/2024 Disorder of intestine 04/01/2024 Essential hypertension 04/01/2024 Gastroesophageal reflux disease without esophagi tis 04/01/2024 Hyperlipidemia 04/01/2024 Hypokalemia 04/01/2024 Hypomagnesemia 04/01/2024 Metabolic encephalopathy 04/01/2024 Paroxysmal atrial fibrillation 04/01/2024 Perforation and abscess of l arge intestine concurrent with and due to diverticulitis 04/01/2024 Perforation of intestine 04/01/2024 Pleural effusion 04/01/2024 Pneumonia 04/01/2024 Pulmonary embolism 04/01/2024 Uterovaginal prolapse, incomplete 04/01/2024 Fatigue 03/28/2024 Muscle weakness 03/28/2024 Encounters Date Type Department Care Team Description 09/16/2024 8:19 AM EDT - 09/16/2024 11:59 PM EDT Hospital Encounter [facility] [address] [place] [address] Monica Arzola MD Colostomy status ([facility]) Discharge Disposition: Home or Self Care 09/11/2024 Telephone [facility] [address] [facility] [place] [address] Isa Barraza RMA Surgery Scheduling (colonoscopy) 09/06/2024 Telephone [facility] [address] [place] [address] Lenora Baez MA Other 09/05/2024 Telephone [facility] [address] [address] Melanie Villagomez LPN Surgery Scheduling 09/04/2024 2:00 PM EDT Office Visit [facility] [address] [address] Leta Dupont MD Uterovaginal prolapse, incomplete (Primary Dx) 08/16/2024 11:00 AM EDT Procedure [place] [facility] [address] [address] Antonina Ji PA-C Mixed stress and urge urinary incontinence (Primary Dx); Urine frequency; Uterovaginal prolapse, incomplete; Ileostomy in place (HCC) 08/15/2024 2:30 PM EDT Office Visit [facility] [address] [place] [address] [place] [address] Monica Arzola MD Colostomy status (HCC) (Primary Dx) 07/12/2024 Results Follow-Up [facility] [address] [address] Antonina Ji PA-C URINE CULTURE (NO STAIN), URINALYSIS 07/10/2024 10:30 AM EDT Office Visit [facility] [address] [address] Leta Dupont MD Uterovaginal prolapse, incomplete (Primary Dx); Mixed stress and urge urinary incontinence; Ileostomy in place (HCC); Urine frequency; Hematuria, unspecified type from Last 3 Months Immunizations Immunization Administration Dates Next Due Influenza High Dose 12/31/2019,11/20/2017 Pneumococcal Conjugate Vaccine 13 Valent 018 Pneumococcal Conjugate Vaccine 20 Valent 023 Pneumococcal Polysaccharide 23 Valent 04/14/2021 Quadrivalent Influenza High Dose 04/24/2024,12/11,04/14/2021 TST,Unspecified Formulation 04/04/2024, 5 Tdap 08/02/2017 Surgical History Surgery Date Site/Laterality Comments COLON SURGERY 03/13/2024 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 Date Comments Paroxysmal atrial fibrillation (HCC) Mixed hyperlipidemia Essential (primary) hypertension Social History Tobacco Use Types Packs/Day Years Used Date Smoking Tobacco: Never Smokeless Tobacco: Never Tobacco Cessation:Counseling Given: Not Answered Comments No Sex and Gender Information Value Date Recorded Sex Assigned at Not on file Legal Sex Female 3:37 PM EDT Gender Identity Not on file Sexual Orientation Not on file Obstetrics History Last Filed Vital Signs Vital Sign Reading Time Taken Comments Blood Pressure 112/58 08/15/2024 2:46 PM EDT Pulse 77 08/15/2024 2:46 PM EDT Temperature 36.3 C (97.3 F) 08/15/2024 2:46 PM EDT Respiratory Rate 12 08/15/2024 2:46 PM EDT Oxygen Saturation 98% 07/10/2024 10:46 AM EDT Inhaled Oxygen Concentration - - Weight 51.1 kg (112 lb 9.6 oz) 08/15/2024 2:46 P M EDT Height 147.3 cm (4' 10 ) 08/15/2024 2:46 PM EDT Body Mass Index 23.53 08/15/2024 2:46 PM EDT Plan of Treatment Upcoming Encounters Date Type Department Care Team (Late st Contact Info) Description 09/23/2024 10:30 AM EDT Appointment [address] [place] [address] Monica Arzola MD [address] [place] [address] [place] [address] 10/03/2024 9:30 AM EDT Appointment [facility] [place] [address] Monica Arzola MD [address] [place] [address] [place] [address] Health Maintenance Due Date Last Done Comments Wellness Exam Medicare 07[birth year]06/1948 Hepatitis C Screening 07/06/1965 Zoster (1 of 2) 07/06/1997 Bone Density Screening 07/06/2012 RSV or 60+ (1 - 1-dose 75+ series) 07/06/2022 COVID-19 Vaccine ( season) 2023 Influenza Vaccine (#1) 2024 5, 12/28/2022, 04/14/2021, Additional history exists DTaP/TDaP/Td (2 - Td or Tdap) 08/03/2027 08/02/2017 Cologuard Discontinued 07/05/2021 Colon Cancer Screening Discontinued Pneumococcal Vaccine 50+ Completed 023, 04/14/2021, 11/20/2017 Colonoscopy Discontinued FIT Discontinued Hepatitis B Vaccine Aged Out No longe r eligible based on patient's age to complete this topic Meningococcal B Vaccine Aged Out No l onger eligible based on patient's age to complete this topic Sigmoidoscopy Discontinued Virtual Colonography Discontinued Procedures Procedure Name Priority Date/Time Associated Diagnosis Comments FL BARIUM ENEMA Routine 09/16/2024 9:27 AM EDT Colostomy status (HCC) SEP URINALYSIS POC Routine 08/16/2024 10 :53 AM EDT Urine frequency URINALYSIS Routine 07/10/2024 11:25 AM EDT Hematuria, unspecified type URINE CULTURE (NO STAIN) Routine 07/10/2024 11:25 AM EDT Urine frequency SEP URINALYSIS POC Routine 07/10/2024 11 :16 AM EDT Urine frequency from Last 3 Months Results * FL BARIUM ENEMA (09/16/2024 9:27 [...] of 12 images retained in PACS. FINDINGS: Insurance Sales Supervisor film the abdomen demonstrates moderate stool [...] of 12 images retained in PACS. FINDINGS: Insurance Sales Supervisor film the abdomen demonstrates moderate stool [...] Arzola MD IM FLUOROSCOPY ORDERABLES Final Result * (ABNORMAL) SEP URINALYSIS POC (08/16/2024 10:53 AM EDT) Only the most recent of2 resultswithin the time period is included. UA Color POC Yellow Color 08/16/2024 10:56 AM EDT [facility] [place] UA Appear POC Cloudy(A) Clear 08/16/2024 10:56 AM EDT [facility] Gluc POC Negative Negative mg/dL 08/16/2024 10:56 AM EDT [facility] [place] UA Bili POC Negative Negative 08/16/2024 10:56 AM EDT [facility]A Ketones POC Negative Negative mg/dL 08/16/2024 10:56 AM EDT [facility] UA SG POC 1.015 1.001 - 1.035 no units 08/16/2024 10:56 AM EDT [facility] UA Blood POC Small(A) Negative 08/16/2024 10:56 AM EDT [facility] UA pH POC 7.0 5.0 - 8.0 pH 08/16/2024 10:56 AM EDT [facility] UA Protein POC Negative Negative mg/dL 08/16/2024 10:56 AM EDT [facility] UA Urobilinogen POC 0.2 0.2, 1.0 08/16/2024 10:56 AM EDT [facility] UA Nitrite POC Negative Negative 08/16/2024 10:56 AM EDT [facility] UA Leuk Est POC Moderate(A) Negative 08/17/19 10:56 AM EDT [facility] Urine STRUCTURE OF URINARY TRACT PROPER / Unknown 08/16/2024 10:53 AM EDT 08/16/2024 10:56 AM EDT us Antonina Ji PA-C POINT OF CARE TEST OR DERABLES Final Result [facility] [address] [place] [address] * URINALYSIS (07/10/2024 11:25 AM EDT) UA Color Colorless 07/10/2024 9:45 PM EDT [facility] UA Appear Clear Clear 07/10/2024 9:45 PM EDT [facility] UA Glucose Negative Negative mg/dL 07/10/2024 9:45 PM EDT [facility] UA Ketones Negative Negative mg/dL 07/10/2024 9:45 PM EDT [facility] UA Blood Negative Negative 07/10/2024 9:45 PM EDT [facility] UA pH 7.0 5.0 - 8.0 pH 07/10/2024 9:45 PM EDT [facility] UA Protein Negative Negative mg/dL 07/10/2024 9:45 PM EDT [facility] UA Urobilinogen Normal <=1 mg/dL 9:45 PM EDT [facility] UA Bili Negative Negative 07/10/2024 9:45 PM EDT [facility] UA Nitrite Negative Negative 07/10/2024 9:45 PM EDT [facility] UA Leuk Est Negative Negative 07/10/2024 9:45 PM EDT [facility] UA Spec Grav <1.005 1.001 - 1.035 no units 07/10/2024 9:45 PM EDT [facility] Comment:Reference range pankaj d for random specimens only. UA WBC 0 0 - 4 /HPF 07/10/2024 9:45 PM EDT [facility] UA Mucus Trace /LPF 07/10/2024 9:45 PM EDT [facility] UA CA Ox Luna Rare /HPF 07/10/2024 9:45 PM EDT [facility] Urine URINARY BLADDER STRUCTURE / Unknown 07/10/2024 11:25 AM EDT 07/10/2024 11:25 AM EDT Leta Dupont MD URINE ORDERABLES Final Result [facility] [address] [facility] [place] [address] * (ABNORMAL) URINE CULTURE (NO STAIN) (07/10/2024 11:25 AM EDT) Culture Positive Growth(A) 2024 8:59 AM EDT [facility] Culture 1,000 CFU/mL Corynebacterium striatum group SUSCEPTIB ILITY RESULT 07/12/2024 8:59 AM EDT [facility] Comment:No further workup. Urine URINARY BLADDER STRUCTURE / Unknown 07/10/2024 11:25 AM EDT 07/10/2024 11:25 AM EDT Leta Dupont MD MICROBIOLOGY - GENERAL ORDERABLES Final Result [facility] [address] [place] [address] from Last 3 Months Insurance [employer] MED[employer]ARE HMO [place] Member Subscriber Plan / Payer (Ef fective 2024-Present) Name:Alesha Szymanski Relation to Subscriber:Self Name:Alesha Szymanski Payer ID:[id number] (NAIC) Type:Not on file Address: [place] [id number] [employer] MED[employer] HMO MR
--- OUTSIDE RECORDS SUMMARY | 2024-09-17 10:06 | XMS_ITS | Encounter Summary ---
Author Organization [place] [address] Care Team Providers Care Railroad Design Consultant Name Role Phone Unavailable Primary Care Provider Unavailabl e Encounter Details Date Type Department Care Team (Latest Contact Info) Description 07/12/2024 Results Follow-Up [facility] [address] [address] Antonina Ji PA-C [address] [place] [address] URINE CULTURE (NO STAIN), URINALYSIS Social History Tobacco Use Types Packs/Day Years Used Date Smoking Tobacco: Never Assessed Comments Unknown Sex and Gender Information Value Date Recorded Sex Assigned at Not on file Legal Sex Female 3:37 PM EDT Gender Identity Not on file Sexual Orientation Not on file documented as of this encounter Progress Notes * Laxmi Flores RMA - 07/12/2024 11:13 AM EDT Pt informed. documented in this encounter Plan of Treatment Upcoming Encounters Date Type Department Care Team (Late st Contact Info) Description 09/23/2024 10:30 AM EDT Appointment [address] [place] [address] Monica Arzola MD [address] [place] [address] [address] [place] [address] 10/03/2024 9:30 AM EDT Appointment [facility] [place] [address] Monica Arzola MD [address] [place] [address] [address] [place] [address] documented as of this encounter Visit Diagnoses Not on filedocumented in this encounter
--- OUTSIDE RECORDS SUMMARY | 2024-09-17 10:06 | XMS_ITS | Encounter Summary ---
Author Organization [place] Address [address] [facility] [place] [address] Care Team Providers Care Contracts Paralegal Name Role Phone Unavailable Primary Care Provider Unavailabl e Reason for Referral * Surgical (Routine) - Pending Review Specialty Diagnoses / Procedures Referred By [facility] t Referred To Contact Gastroenterology Diagnoses Colostomy status (HCC) Colostomy present (HCC) Perforation of intestine (HCC) Procedures COLONOSCOPY LA COLONOSCOPY FLX DX W/COLLJ SPEC WHEN PFRMD LA COLONOSCOPY FLX W/ENDOSCOPIC MUCOSAL RESECTION Monica Arzola MD [address] [facility] [address] [place] [address] Phone: tel: fax: Referral ID Status Reason Start Date Expiration Date V isits Requested Visits Authorized [id number] Pending Review 09/11/2024 09/11/2025 1 1 Reason for Visit * Reason Onset Date Comments Surgery Scheduling 09/11/2024 colonoscopy Encounter Details Date Type Department Care Team (Late st Contact Info) Description 09/11/2024 Telephone [facility]AL EDG [address] [facility] [address] [place] [address] Isa Barraza RMA Surgery Scheduling (colonoscopy) Social History Tobacco Use Types Packs/Day Years Used Date Smoking Tobacco: Never Smokeless Tobacco: Never Comments No Sex and Gender Information Value Date Recorded Sex Assigned at Not on file Legal Sex Female 3:37 PM EDT Gender Identity Not on file Sexual Orientation Not on file documented as of this encounter Ordered Prescriptions Prescription Sig Dispense Quantity Refills Last Filled Start Date End Date polyethylene glycol (GOLYTELY) 236-22.74-6.74 -5.86 gram Oral Recon SolnIndications:Co lostomy status (HCC),Colostomy present (HCC),Perforation of intestine (HCC) At 2 pm on the day prior, drink THE ENTIRE volume. Clear liquids ALL DAY prior. 4000 mL 09/11/2024 documented in this encounter Miscellaneous Notes * Telephone Encounter - Isa Barraza RMA - 09/11/2024 2:18 PM EDT Colonoscopy Information Date: 10/03/24 Arrival time: 8:30 am Location: [address] [place] [address] [place]. [address] Pre testing department through the hospital will call and go over medications, and medical history. Instructions on Preparation for Colonoscopy 3 Days Before Colonoscopy (09/30/24) Start a low residual diet Foods Allowed on a Low Residue Diet refined grain products like white breads, cereals, and pastas (look for less than 2g of fiber per serving on label) white rice. juices without pulp or seeds. meats, fish, and eggs. oil, margarine, butter, mayonnaise, and salad dressings. Avoid these foods and products made with them: Nuts, seeds, dried fruit and coconut. Whole grains, popcorn, wheat germ and bran. Brown rice, wild rice, oatmeal, granola, shredded wheat, quinoa, bulgur and barley. Dried beans, baked beans, ratliff beans, peas and lentils. [place] peanut butter. 1 Day Before Colonoscopy (10/02/24) Clear liquids only (Avoid red and purple colored liquids) Start bowel prep Bowel Prep Instructions You will start your bowel prep on the day prior to your procedure at 2:00 pm. Drink 1- 8 oz glass of prep every 20 minutes until the full volume is gone. You will follow a clear liquid diet on the day of your prep. Do NOT eat any solid foods on the day of your prep. Drink plenty of clear liquids in addition to water, coffee, and tea. This ensures you get enough calories and is an important part of your prep. If you have diabetes, drink sugar free clear liquids only and check your sugar level often. Clear liquids; Black coffee, black tea, water, Gatorade, apple juice, popsicles, jello, broth, sprite. No red or purple colors Day of Colonoscopy (10/03/24) You may have certain clear liquids up to 3 hours prior to arrival time; Water or Gatorade/ Powerade, Black coffee, or tea (no cream or sugar) If you have any questions or concerns, please send me a message through [employer] or call the office at [phone]. Thanks! Ias AGUSTIN * Telephone Encounter - Isa Barraza RMA - 09/11/2024 11:[address] Sidney Arana will need to go first and her time is in slotted in FTT. * Telephone Encounter - Isa Barraza RMA - 09/11/2024 11:20 AM EDT Not sure I will check. Are you going to go first or Dr. Sidney Arana? * Telephone Encounter - Monica Arzola MD - 09/11/2024 11:02 AM EDT did we get a hold of her prior op note from [facility]? * Telephone Encounter - Isa Barraza RMA - 09/11/2024 10:50 AM EDT Patient has every thing scheduled. I will talk with Dr. Sidney Mayfield center line cutter operator about the time frame. 09/16 Barium enema 09/23/24 CT 10/03/24 cscope * Telephone Encounter - Monica Arzola MD - 09/11/2024 10:42 AM EDT sounds good, so scope plan for end of September and can we get the imaging I requested (CT/ GG enema done prior to the scope so I can review all those findings and see if we can do a combo case some time in October? If not then Dr. Sidney Arana is ok with doing it seperate * Telephone Encounter - Isa Barraza RMA - 09/11/2024 10:16 AM EDT Message received from Jen Dupont's molder setter. They want to do a combo case with this patient when Dr. Arzola does the reversal. Dr. Little is doing a LeFort colpocleisis, posterior repair with levator plication, cystoscopy, she will need 90 minutes * Telephone Encounter - Isa Barraza RMA - 09/11/2024 10:11 AM EDT Comments Low residue diet for 3 days prior to prepping for colonoscopy. Clear liquid diet the day prior to the procedure. OK to prescribe split dose Golytely, Suflave, Sutab or Plenvu. ADT-Related Order Information Order Questions Question Answer Comment Procedure Name Colonoscopy Procedure Diagnosis Rectal bleeding Anesthesia MAC ERAS No Schedule procedure within 2-3 weeks Admission Class Outpatient Location Endo Length of time needed if different from standard: 30 mins Positioning Other (use comments) left lateral Prep Bowel prep split prep Pre-op appointment with: None Clearance Needed Prior to Surgery None Stoma marking/ Ostomy teaching No -No latex allergy -No weight loss meds Needs to stop Eliquis 3 days prior Case request sent documented in this encounter Plan of Treatment Upcoming Encounters Date Type Department Care Team (Late st Contact Info) Description 09/23/2024 10:30 AM EDT Appointment [address] [place] [address] Monica Arzola MD [address] [place] [address] [address] [place] [address] 10/03/2024 9:30 AM EDT Appointment [facility] ENDOSCOPY [address] [facility] [place] [address] Monica Arzola MD [address] [facility] [address] [place] [address] Scheduled Orders Name Type Priority Associated Diagnoses Orde r Schedule COLONOSCOPY Endoscopy Routine Colostomy status (HCC) Colostomy present (HCC) Perforation of intestine (HCC) 1 Occurrences starting 09/11/2024 until 09/11/2025 documented as of this encounter Visit Diagnoses Diagnosis Colostomy status (HCC)- Primary Colostomy status Colostomy present (HCC) Perforation of intestine (HCC) Perforation of intestine documented in this encounter
--- OUTSIDE RECORDS SUMMARY | 2024-09-17 10:06 | XMS_ITS | Clinical Summary ---
Author Organization [employer] ([place], [place], [place], [place]) Address [address] [place] [address] Care Team Providers Care Coating Machine Feeder Name Role Phone Unavailable Primary Care Provider Unavailabl e Social History Tobacco Use Types Packs/Day Years Used Date Smoking Tobacco: Never Assessed Comments Unknown Sex and Gender Information Value Date Recorded Sex Assigned at Not on file Legal Sex Female 11:44 PM AVIAN KEEPER Gender Identity Not on file Sexual Orientation Not on file Plan of Treatment Health Maintenance Due Date Last Done Comments DXA SCAN 1945 Depression Screening (12+) 1959 Tobacco Cessation Counseling and Screening (12+) 07/06 Hepatitis C Screening 07/06/1965 DTAP/TDAP/TD VACCINES (1 - Tdap) 07/06/1966 Pneumococcal 50+ years (1 of 1 - PCV) 07/06/1997 Shingles Vaccine (Zoster) (1 of 2) 07/06/1997 Respiratory Syncytial Virus (RSV) Adult or (1 - 1-dose 75+ series) 07/06/2022 COVID-19 VACCINE (1 - 2023- season) 2023 Falls Risk Screening 03/13/2024 Medicare IPPE (Welcome to Medicare) [id number] 03/13/2024 Influenza Vaccine (#1) 2024 Insurance [facility] MEDICARE HMO MEDICAID [id number]
--- OUTSIDE RECORDS SUMMARY | 2024-09-17 10:07 | XMS_ITS | Encounter Summary ---
Author Organization [place] [address] Care Team Providers Care Veterinary Anatomist Name Role Phone Unavailable Primary Care Provider Unavailabl e Reason for Visit * Reason Onset Date Comments Surgery Scheduling 09/05/2024 Encounter Details Date Type Department Care Team (Late st Contact Info) Description 09/05/2024 Telephone [facility] [address] [address] Melanie Villagomez LPN Surgery Scheduling Social History Tobacco Use Types Packs/Day Years Used Date Smoking Tobacco: Never Smokeless Tobacco: Never Comments No Sex and Gender Information Value Date Recorded Sex Assigned at Not on file Legal Sex Female 3:37 PM EDT Gender Identity Not on file Sexual Orientation Not on file documented as of this encounter Miscellaneous Notes * Telephone Encounter - Melanie Villagomez LPN - 09/11/2024 10:26 AM EDT Spoke with Isa (Dr. Arzola's patient scheduler) thru TEAMS. She has scheduled Patient's Colonoscopy. She has not received Colostomy Reversal orders yet but she is making a note that when they are ready to schedule she will get in contact with me about a combined case. * Telephone Encounter - Melanie Villagomez LPN - 09/09/2024 2:42 PM EDT Received a vmm from daughter, Kellie, who states they are getting everything set up for surgery for colostomy reversal. She states she will call me when that is all completed. * Telephone Encounter - Melanie Villagomez LPN - 09/05/2024 2:47 PM EDT Lmtcb to discuss surgery date(s)/time(s) w/ Dr. Little. Left vmm for daughterKellie (Patient's cell phone # is daughter's number) To be Scheduled: LeFort colpocleisis, posterior repair with levator plication, [...] pictures taken for learning purposes during surgery *Patient may return to normal activity at 6 weeks without restrictions documented in this encounter Plan of Treatment Upcoming Encounters Date Type Department Care Team (Late st Contact Info) Description 09/23/2024 10:30 AM EDT Appointment [address] [place] [address] Monica Arzola MD [address] [place] [address] [address] [place] [address] 10/03/2024 9:30 AM EDT Appointment [facility] ENDOSCOPY [facility] [place] [address] Monica Arzola MD [address] [place] [address] [address] [place] [address] documented as of this encounter Visit Diagnoses Not on filedocumented in this encounter
--- OUTSIDE RECORDS SUMMARY | 2024-09-17 10:07 | XMS_ITS | Encounter Summary ---
Author Organization [place] [address] Care Team Providers Care Cash Register Mechanic Name Role Phone Unavailable Primary Care Provider Unavailabl e Reason for Referral * (Routine) - Pending Review Specialty Diagnoses / Procedures Referred By Contac t Referred To Contact Diagnoses Colostomy status (HCC) Procedures AMB COLORECTAL/SURGERY COMMUNICATION ORDER oMnica Arzola MD [address] [place] [address] [address] [place] [address] Phone: tel: fax: Referral ID Status Reason Start Date Expiration Date V isits Requested Visits Authorized [id number] Pending Review 09/06/2024 09/06/2025 1 1 * Diagnostic X-Ray (Routine) - Pending Review Specialty Diagnoses / Procedures Referred By Contac t Referred To Contact Radiology Diagnoses Colostomy status (HCC) Procedures FL BARIUM ENEMA Monica Arzola MD [address] [place] [address] [address] [place] [address] Phone: tel: fax: Referral ID Status Reason Start Date Expiration Date V isits Requested Visits Authorized [id number] Pending Review 09/06/2024 09/06/2025 1 1 Reason for Visit * Reason Onset Date Comments Other 09/06/2024 Encounter Details Date Type Department Care Team (Late st Contact Info) Description 09/06/2024 Telephone [facility]AL [facility] [address] [place] [address] Lenora Baez MA Other Social History Tobacco Use Types Packs/Day Years Used Date Smoking Tobacco: Never Smokeless Tobacco: Never Comments No Sex and Gender Information Value Date Recorded Sex Assigned at Not on file Legal Sex Female 3:37 PM EDT Gender Identity Not on file Sexual Orientation Not on file documented as of this encounter Miscellaneous Notes * Telephone Encounter - Lenora Baez MA - 09/11/2024 4:16 PM EDT Called [facility] again and requested the records again. She said she would fax them right now. * Telephone Encounter - Isa Barraza RMA - 09/11/2024 2:29 PM EDT We have not received the medical records yet. * Telephone Encounter - Isa Barraza RMA - 09/10/2024 11:29 AM EDT Spoke with Daughter Kellie. She was at [place] and it was a bad time to try to schedule. She asked ifI could call back this afternoon. I will call her back when I get the chance. * Telephone Encounter - Cheyenne Gunn - 09/09/2024 12:38 PM EDT Daughter Kellie LVM wanting to schedule colonoscopy. You can reach her at [phone]. Thanks! * Telephone Encounter - Monica Arzola MD - 09/06/2024 11:14 AM EDT I put in scope orders * Telephone Encounter - Isa Barraza RMA - 09/06/2024 10:[address] Arzola can you please place the order for the colonoscopy? * Telephone Encounter - Lenora Baez MA - 09/06/2024 10:[address] A/P was ordered by not scheduled. Enema was not ordered so I ordered that. Called pt and spoke with daughter Kellie. Gave her the number to scheduling to get the imagings done. I told her that I vishal forward this to Isa to get her colonoscopy scheduled. * Telephone Encounter - Lenora Baez MA - 09/06/2024 10:13 AM EDT After digging through her records [facility] I called them and confirmed surgery was done there and they are faxing OP note along with all of the inpatient information from that visit. Phone number for [facility] medical records: [phone] Spoke with Marilee and she is going to watch for these records to come through and get them scanned into patients chart. * Telephone Encounter - Lenora Baez MA - 09/06/2024 10:13 AM EDT ----- Message from Monica Arzola MD sent at 09/06/2024 8:28 AM EDT ----- For this patient can we see what the status is for the stuff I wanted when I saw her in office? I don???t know if I placed ordered for some of these stuff or if the patient has t scheduled it yet. - gastrograffin enema - colonoscopy via stoma/ butt (to be done by me) - CT A/P with PO/IV contrast - records from her surgery in September Once it???s all done she needs to see me for follow up/ review the findings. She???s trying to do combo surgery with me and Dr. Sidney Arana so want to get this work up expedited so maybe we can plan for surgery by the end of September or early October if that works for everyone???s schedules documented in this encounter Plan of Treatment Upcoming Encounters Date Type Department Care Team (Late st Contact Info) Description 09/23/2024 10:30 AM EDT Appointment [address] [place] [address] Monica Arzola MD [address] [place] [address] [address] [place], [place] [id number] 10/03/2024 9:30 AM EDT Appointment [facility] ENDOSCOPY [facility] [place] [address] Monica Arzola MD [address] [place] [address] [address] [place] [address] documented as of this encounter Results * FL BARIUM ENEMA [...] of 12 images retained in PACS. FINDINGS: Cold Working Supervisor film the abdomen demonstrates moderate stool [...] of 12 images retained in PACS. FINDINGS: Cold Working Supervisor film the abdomen demonstrates moderate stool [...] Colostomy status (HCC)- Primary Colostomy status Colostomy status (HCC) Colostomy status documented in this encounter Orders Nursing Count Last Ordered Date First Orde red Date AMB COLORECTAL/SURGERY COMMUNICATION ORDER 1 09/06/2024 documented in this encounter
[2024-09-17 10:53] LABS: Hematocrit 32.0 % (37.0-47.0); Hemoglobin 11.1 g/dL (12.2-16.2); Immature Granulocytes % 0.1 %; Mean Corpuscular HGB Conc 34.7 g/dL (31.8-35.4); Mean Corpuscular Hemoglobin 33.1 pg (27.0-31.2); Mean Corpuscular Volume 95.5 fl (81-99); Nucleated Red Blood Cells % 0 %; Platelet Count 303 K/mm3 (142-424); Red Blood Count 3.35 M/mm3 (4.20-5.40); Red Cell Distribution Width-SD 46.1 fL; White Blood Count 7.3 K/mm3 (4.8-10.8)
[2024-09-17 11:26] LABS: Anion Gap 16.5 mEq/L (5-15); Blood Urea Nitrogen 31 mg/dl (7-17); Calcium 11.0 mg/dl (8.4-10.2); Carbon Dioxide 27 mmol/L (22.0-30.0); Chloride 98 mmol/L (98-107); Creatinine,Serum 1.20 mg/dl (0.52-1.04); Estimated Glomerular Filt Rate 44 ml/min (>60); GFR (African American) 53 ML/MIN (>60); Glucose 97 mg/dl (74-100); Potassium 4.5 mmoL/L (3.5-5.1); Sodium 137 mmol/L (136-145)
== END 2024-09-17 23:59 | disposition home or self-care (01) ==
LOC: LAB 10:05
PROVIDERS: PCP Physician Assistant; Visit Provider Nurse Practitioner Family
DX: I25.10 Atherosclerotic heart disease of native coronary artery without angina pectoris (principal); I10 Essential (primary) hypertension
CPT/HCPCS: 36415; 80048; 85025

== ENCOUNTER 2024-10-18 15:49 | Outpatient (CLI) | payer MEDICARE, MEDICAID, SELFPAY ==
--- OUTSIDE RECORDS SUMMARY | 2024-04-08 07:00 | XMS_ITS | Continuity of Care Document ---
Author Organization [address] [place] [id number] [place] [address] [place] [address] Phone Care Team Providers Care Network Applications Specialist Name Role Phone Bisi Limon NP Unavailable Unavailabl e Procedures Procedure Date SBSQ NF CARE SF [facility] 10 Advance Directives Directive Yes / No Effective Date File Name No Information Encounters Encounter Description Practice Location Reason(s) For Visit Diagnoses Date Provider Providers Copied on Encounter [facility] NF CARE [facility] [address] [place] [address], [address] [facility], [place], [id number], [place] tel:[phone] [place] [facility] exam, hearing loss (chief complaint) Unspecified hearing loss, bilateral Braxton Mathews . , [place]. Referring Provider: Rito Jamison. Family History Family Member Type Diagnosis Age At Onset No Information Payers Payer name Insurance type Covered libertarian ID Authoriza tion(s) [employer] Medicare [id number] Medicaid [facility] [id number] Social History Type Description Quantity Date Captured Comments Alcohol Use Details Unknown Caffeine Use Details Unknown Tobacco Use Status No Information Smoking Status No Information Sex Female Chief Complaint And Reason For Visit From encounter dated '04/08/2024 11:00'. ear care exam, hearing loss (chief complaint) Reason For Referral Reason For Referral No Information History Of Present Illness Encounter Date Complaint History Of Prese nt Illness No Information Functional Status Date Functional Assessmen t No Information Instructions Date Instruction Additional Infor eugene Follow up in 6-9 mon ths for evaluation as per protocol. Would recommend audiology referral at this time for evaluation patient wishes to pursue. Related to Unspecified hearing loss, bilateral Assessments Type Assessment Date assessment Unspecified hearing loss, bilate virginie Patient Care Teams Name Effective Dates (start - stop) Status Members No Information
--- OUTSIDE RECORDS SUMMARY | 2024-06-19 07:30 | XMS_ITS ---
Author Organization [facility] Address [address] [facility] [address] [place] [id number] Care Team Providers Care Motor Runner Name Role Phone Chas Barrera Primary Care Provider DanielCharlene brooks Unavailable [phone] Allergies No Known Allergies Results Component Value Reference Range Notes H-CMP Reviewed date:06/20/2024 08:55:35 AM Interpretation:cL 97, CO2 31, BUN 23, CREAT 1.60, GFRAA 38, EGFR 31, GLU 111, CA 11.6 Performing Lab: Notes/Report: SHARE RESULTS WITH TARI AIMEE NA 136 136-145 mmol/L K 4.6 3.5-5.1 mmoL/L CL 97 98-107 mmol/L CO2 31 22.0-30.0 mmol/L GAP 12.6 5-15 mEq/L BUN 23 7-17 mg/dl CREATT 1.60 0.52-1.04 mg/dl GFRAA 38 >60 ML/MIN EGFR 31 >60 ml/min GLU 111 74-100 mg/dl CA 11.6 8.4-10.2 mg/dl BILIT 0.7 0.2-1.3 mg/dl AST 23 14-36 U/L ALT 18 12-78 U/L TP 6.9 6.3-8.2 g/dl ALB 4.0 3.5-5.0 g/dl GLOB 2.9 1.3-3.2 g/dL AGRATIO 1.4 1.1-1.8 ALP 100 38-126 U/L H-Ferritin Reviewed date:06/20/2024 08:55:35 AM Interpretation:260 Performing Lab: Notes/Report: SHARE RESULTS WITH TARI YU BRO 260 11.1-264 ng/ml Delta: 105 on 03/17/24-042 H-Iron Reviewed date:06/20/2024 08:55:35 AM Interpretation:106 Performing Lab: Notes/Report: SHARE RESULTS WITH TARI YU FE 106 37-170 ug/dL Reason For Referral Diagnosis 1 Memory loss (R41.3) [facility] Referring Provider First Name Charlene Referring Provider Last Name Cy Referring Provider 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 Referred Provider Specialty Neurology General Notes Charlene Benoit 2024 11:59:38 AM > Needs an appt with Tatiana Guerra Brynn 06/19/2024 12:01:06 PM > faxed to [facility] NeurologyTatiana Brynn 06/28/2024 11:09:20 AM > spoke to Jillian; referral received Referral Priority Routine REASON FOR VISIT [place] D/C Medications Medication SIG (Take, Route, Frequency, Duration) Notes Start Date End Date Status Simvastatin 40 MG TAKE 1 TABLET BY GRACE ONCE DAILY AT BEDTIME; Duration: 90 Not-Taking Verapamil HCl ER 120 MG 1 tab(s) orally twice a day; Duration: 90 days Not-Takin g Ferrous Sulfate 325 (65 Fe) MG 1 tablet Orally once daily; Duration: 30 day(s) 03/01/2024 Not-Taking Digoxin 125 MCG 1 tablet Orally Once a day; Duration: 30 days Not-Takin g Eliquis 5 MG 1 tab(s) Orally Two times a day; Duration: 30 days 05/27/2024 Active Furosemide 20 MG 1 tablet Orally Once a day; Duration: 30 day(s) Not-Brian ing Losartan Potassium 50 MG 1 tablet Orally Once a day; Duration: 30 day(s) Not-Brian ing Magnesium 400 MG as directed Orally Not-Taking Rolling Walker with seat - 1 as needed 06/19/2024 Active Atorvastatin Calcium 10 MG 1 tablet Orally Once a day; Duration: 30 days Active Albuterol Sulfate HFA 108 (90 Base) MCG/ACT 1 puff as needed Inhalation every 4 hrs, prn 02/29/2024 Active Prolia 60 MG/ML as directed Subcutan eous every 6 months 01/17/2023 Active Nystatin 478563 UNIT/ML 5 mL Mouth/Throa t Three times a day; Duration: 7 days 03/04/2024 Active Pantoprazole Sodium 40 MG Take 1 tablet by mouth once daily; Duration: 90 Active Multivitamin - 1 tablet Orally Once a day; Duration: 30 day(s) Active Carvedilol 12.5 MG 1 tablet with food Orally Twice a day; Duration: 30 days Active Estradiol 0.1 MG/GM as directed Vaginal Active Aspirin 81 81 MG 1 tablet Orally Once a day; Duration: 30 day(s) Active Albuterol Sulfate HFA 108 (90 Base) MCG/ACT 1 puff as needed Inhalation every 4 hrs, prn 12/14/2023 Active Acetaminophen 500 MG 1 capsule as needed Orally every 6 hrs Active Fluzone High-Dose 0.5 ML as directed Intramuscular Active NIFEdipine ER 90 MG 1 tablet on an empty stomach Orally Once a day Active Problems Problem Type SNOMED Code ICD Code Onset Dates Problem Status W/U Status Risk Notes Problem Metabolic encephalopathy (43689760) Metabolic encephalopathy (G93.41) Active confirmed Problem Memory loss (R41.3) Active confirmed Vital Signs Blood pressure systolic 112 mm Hg 06/20/19 25 Blood pressure diastolic 58 mm Hg 025 Heart Rate 76 /min 06/19/2024 Height 58 in 06/19/2024 Weight 104.8 lbs 06/19/2024 BMI 21.9 kg/m2 06/19/2024 Encounters Encounter Location Date Provider Diagnosis [facility] [address] [id number] 06/19/2024 Charlene Benoit Hyponatremia E87.1 ; Hyperkalemia E87.5 ; Urinary tract infection without hematuria, site unspecified N39.0 ; Metabolic encephalopathy G93.41 ; Acute renal failure, unspecified acute renal failure type N17.9 ; Memory loss R41.3 ; Iron deficiency E61.1 ; Generalized weakness R53.1 and BMI 21.0-21.9, adult Z68.21 Assessments Encounter Date Diagnosis (ICD Code) Assessment Notes Treatment Notes Treatment Clinical Notes Section Notes 06/19/2024 Hyponatremia (ICD-10 - E87.1) 06/19/2024 Hyperkalemia (ICD-10 - E87.5) 06/19/2024 Urinary tract infection without hematuria, site unspecified (ICD-10 - N39.0) 06/19/2024 Metabolic encephalopathy (ICD-10 - G93.41) 06/19/2024 Acute renal failure, unspecified acute renal failure type (ICD-10 - N17.9) 06/19/2024 Memory loss (ICD-10 - R41.3) 06/19/2024 Iron deficiency (ICD-10 - E61.1) 06/19/2024 Generalized weakness (ICD-10 - R53.1) 06/19/2024 BMI 21.0-21.9, adult (ICD-10 - Z68.21) Plan Of Treatment Medication Medication Name Sig Start Date Stop Date Notes Rolling Walker with seat - 1 as needed 06/19/2024 Pending Test Test Name Order Date H-CBC 06/19/2024 Referrals Referral Date Details 06/19/2024 06/19/2024, . Jemima hendricks Next Appt Details Follow Up: via phone to repo rt test results, Reason: Provider Name:Charlene Song y, 10/23/2024 04:30:00 PM, [address] [facility] [address] [facility], [address] , [place], [place], [id number], Progress Notes * QUEENIE ROSEDOB:1945 (79 yo F)Acc No.[id number]:06/19/2024 Patient: QUEENIE CANNON Provider: MARVA Dang :1945 A ge:78 Y S ex:Female Date:06/19/2024 Address:[address] [place] [address], [id number] Pcp:Chas Barrera Subjective: * Chief Complaints: * 1 . [place] D/C. * HPI: H PI: Here for follow up on: h ospitalization. Pt states she doing better. Pt has no new concerns today. Was discharged last Wed after admission at [facility] f or renal failure. She was given fluids and renal function improved. She just saw cardiology and they have ordered labs (CBC, CMP, Magnesium). Her other diagnoses while in the hospital were metabolic encephalopathy and hyponatremia.. * ROS: D ERMATOLOGY: no R mady. n o H michael. G ASTROENTEROLOGY: no N ausea. n o V omiting. n o D iarrhea.? U ROLOGY: no D ifficulty urinating. n o B lood in urine. * 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: H ypertension, Rapid heart beat ?SVT, Hyperlipidemia, Polio, COVID 19 Vaccination, 08/17 2020, Moderna. * Surgical History: A ppendectomy . * Family History: F ather: 70 yrs, lung cancer. M other: 92 yrs, alzheimer's dementia.?3 brother(s) , 1 sister(s) . 4 daughter(s) . . * Social History: C URRENT TOBACCO USE: No . C affeine: yes, frequency: coffee, green tea. Home smoke detector use: yes. Alcohol: No. * Medications: T aking NIFEdipine ER 90 MG Tablet Extended Release 24 Hour 1 tablet on an empty stomach Orally Once a day , Taking Acetaminophen 500 MG Capsule 1 capsule as needed Orally every 6 hrs , Taking Fluzone High-Dose 0.5 ML Suspension Prefilled Syringe as directed Intramuscular , Taking Multivitamin - Tablet 1 tablet Orally Once a day , Taking Carvedilol 12.5 MG Tablet 1 tablet with food Orally Twice a day , Taking Estradiol 0.1 MG/GM Cream as directed Vaginal , Taking Aspirin 81 81 MG Tablet Delayed Release 1 tablet Orally Once a day , Taking Albuterol Sulfate HFA 108 (90 Base) MCG/ACT Aerosol Solution 1 puff as needed Inhalation every 4 hrs, prn , Taking Albuterol Sulfate HFA 108 (90 Base) MCG/ACT Aerosol Solution 1 puff as needed Inhalation every 4 hrs, prn , Taking Prolia 60 MG/ML Solution Prefilled Syringe as directed Subcutaneous every 6 months , Taking Nystatin 225115 UNIT/ML Suspension 5 mL Mouth/Throat Three times a day , Taking Pantoprazole Sodium 40 MG Tablet Delayed Release Take 1 tablet by mouth once daily , Taking Atorvastatin Calcium 10 MG Tablet 1 tablet Orally Once a day , Taking Eliquis 5 MG Tablet 1 tab(s) Orally Two times a day , Not-Taking Furosemide 20 MG Tablet 1 tablet Orally Once a day , Not-Taking Losartan Potassium 50 MG Tablet 1 tablet Orally Once a day , Not-Taking Magnesium 400 MG Tablet as directed Orally , Not-Taking Simvastatin 40 MG Tablet TAKE 1 TABLET BY MOUTH ONCE DAILY AT BEDTIME , Not-Taking Verapamil HCl ER 120 MG Tablet Extended Release 1 tab(s) orally twice a day , Not-Taking Ferrous Sulfate 325 (65 Fe) MG Tablet Delayed Release 1 tablet Orally once daily , Not-Taking Digoxin 125 MCG Tablet 1 tablet Orally Once a day , Discontinued Cefdinir 300 MG Capsule 1 cap(s) Orally Two times a day , Medication List reviewed and reconciled with the patient * Allergies: N .K.D.A. Objective: * Vitals: W t: 104.8, Temp: 97.8, BP: 112/58, HR: 76, Nurse: LNIDSEY, Ht: 58, BMI:21.9. * Examination: G eneral Examination: General Appearance: N AD. H EENT: u nremarkable.?Oral cavity: n o lesions, mucosa moist and WNL, no erythema. N anthony: s upple, no lymphadenopathy. C hest: n ormal shape and expansion. H eart: R SR. L ungs: c lear to auscultation. A bdomen: bowel sounds present, soft, nontender, colostomy functioning well. N eurologic Exam: I ntact, gait normal. S kin: n ormal, no rash. P eripheral pulses: n ormal (2+) bilaterally. E xtremities: n o leg edema. ? Assessment: * Assessment: 1. H yponatremia - E87.1 (Primary) 2 . H yperkalemia - E87.5 ?3. U rinary tract infection without hematuria, site unspecified - N39.0 4 .?Metabolic encephalopathy - G93.41 5 . A cute renal failure, unspecified acute renal failure type - N17.9 6 . M randal loss - R41.3 7 . I efrain deficiency - E61.1 8 . G eneralized weakness - R53.1 9 .?BMI 21.0-21.9, adult - Z68.21 Plan: * Treatment: Value Reference Range N A 136 136-145 - mmol/L * K 4.6 3.5-5.1 - mmoL/L * C L 97 L 98-107 - mmol/L * C O2 31 H 22.0-30.0 - mmol/L * G AP 12.6 5-15 - mEq/L * B UN 23 H 7-17 - mg/dl * C REATT 1.60 H 0.52-1.04 - mg/dl * G FRAA 38 L >60 - ML/MIN * E GFR 31 L >60 - ml/min * G ROBIN 111 H 74-100 - mg/dl * C A 11.6 H 8.4-10.2 - mg/dl * B ILIT 0.7 0.2-1.3 - mg/dl * A ST 23 14-36 - U/L * A LT 18 12-78 - U/L * T P 6.9 6.3-8.2 - g/dl * A LB 4.0 3.5-5.0 - g/dl * G LOB 2.9 1.3-3.2 - g/dL * A GRATIO 1.4 1.1-1.8 - * A LP 100 38-126 - U/L * Yesica Holbrook 06/20/2024 08: 55:26 AM > see phone encounter 2.?Memory loss? Referral To:. Neurology??Neurology ?Reason: 3.?Iron deficiency?LAB: H-CBC ?LAB: H-Ferritin (Collection Date & Time - 06/19/2024 12:28 PM)?260* Value Reference Range F ER 260 D 11.1-264 - ng/ml * Yesica Holbrook 06/20/2024 08: 55:26 AM > see phone encounter ?LAB: H-Iron (Collection Date & Time - 06/19/2024 12:28 PM)?106* Value Reference Range F E 106 37-170 - ug/dL * Yesica Holbrook 06/20/2024 08: 55:26 AM > see phone encounter 4.?Generalized weakness? Start Rolling Walker with seat -, -, 1, as needed, 1, Refills 0.?? * Procedure Codes: G 2211 Complex e/m visit add on, 3074F SYST BP LT 130 MM HG, 3078F DIAST BP < 80 MM HG * Follow Up: v ia phone to report test results * Images: Billing Information: * Visit Code: 14434 Office Visit, Est Pt., Level 4. * Procedure Codes: G2211 Complex e/m visit add on. 3074F SYST BP LT 130 MM HG. 3078F DIAST BP < 80 MM HG. * Electronic signature of MARVA Elizalde on 10/18/2024 at 03:52 PM EDT Sign off status: Pending * Provider: MARVA Dang Date: 0 06/19/2024 Generated for Printi ng/Faxing/eTransmitting on: 0 10/18/2024 03:52 PM EDT History and Physical Notes * HPI (History of Present Illness) Category Sub-Category Detail Notes Category Not es HPI Here for follow up on: jenniferi rolando. Pt states she doing better. Pt has no new concerns today. Was discharged last Wed after admission at [facility] for renal failure. She was given fluids and renal function improved. She just saw cardiology and they have ordered labs (CBC, CMP, Magnesium). Her other diagnoses while in the hospital were metabolic encephalopathy and hyponatremia. Examination Category Sub-Category Detail Notes Category Not es General Examination HEENT: unremarkable Heart: RSR Lungs: clear to auscultatio n Abdomen: bowel sounds present , soft, nontender, colostomy functioning well Extremities: no leg edema General Appearance: NAD Skin: normal, no rash Neurologic Exam: Intact, gait normal Neck: supple, no lymphaden opathy Oral cavity: no lesions, mucosa m oist and WNL, no erythema Peripheral pulses: normal (2+) bilatera lly Chest: normal shape and exp ansion Consultation Request Notes Referral Date Referring Provider Referred Provider Not es 06/19/2024 Charlene Benoit Neurology, .
--- OUTSIDE RECORDS SUMMARY | 2024-06-21 07:15 | XMS_ITS ---
Author Organization [facility] Address [address] [facility] [address] [facility] [address] [place] [id number] Care Team Providers Care Hand Driller Name Role Phone Chas Barrera Primary Care Provider [phone] Charlene Benoit Unavailable [phone] Allergies No Known Allergies Results Component Value Reference Range Notes Urinalysis - Inhouse Reviewed date:06/21/2024 02:34:49 PM Interpretation: Performing Lab: Notes/Report: Color/Clarity yellow/clear Leuk 1+ Nitrite neg Urobili 3.2 Protein neg pH 7.5 Blood trace intact Sp. Gr. 1.015 Ketone neg Bili neg Gluc neg P-Culture, Urine Reviewed date:06/27/2024 04:30:25 PM Interpretation:No growth Performing Lab: Notes/Report: Test performed by [facility] [address] [place] [address] , [address], [place] [address] Mitchel Dior MD, Mechanics Supervisor CLIA: [id number] Specimen Source Urine - Void Culture, Urine See Below Final Report : No growth REASON FOR VISIT urinary incontinence Medications Medication SIG (Take, Route, Frequency, Duration) Notes Start Date End Date Status Ferrous Sulfate 325 (65 Fe) MG 1 tablet Orally once daily; Duration: 30 day(s) 03/01/2024 Not-Taking Digoxin 125 MCG 1 tablet Orally Once a day; Duration: 30 days Not-Takin g Simvastatin 40 MG TAKE 1 TABLET BY ONCE DAILY AT BEDTIME; Duration: 90 Not-Taking Verapamil HCl ER 120 MG 1 tab(s) orally twice a day; Duration: 90 days Not-Takin g Magnesium 400 MG as directed Orally Not-Taking Eliquis 5 MG 1 tab(s) Orally Two times a day; Duration: 30 days 05/27/2024 Active Rolling Walker with seat - 1 as needed 06/19/2024 Active Atorvastatin Calcium 10 MG 1 tablet Orally Once a day; Duration: 30 days Active Furosemide 20 MG 1 tablet Orally Once a day; Duration: 30 day(s) Not-Brian ing Losartan Potassium 50 MG 1 tablet Orally Once a day; Duration: 30 day(s) Not-Brian ing Prolia 60 MG/ML as directed Subcutan eous every 6 months 01/17/2023 Active Nystatin 590396 UNIT/ML 5 mL Mouth/Throa t Three times a day; Duration: 7 days 03/04/2024 Active Albuterol Sulfate HFA 108 (90 Base) MCG/ACT 1 puff as needed Inhalation every 4 hrs, prn 02/29/2024 Active Pantoprazole Sodium 40 MG Take 1 tablet by mouth once daily; Duration: 90 Active Albuterol Sulfate HFA 108 (90 Base) MCG/ACT 1 puff as needed Inhalation every 4 hrs, prn 12/14/2023 Active Multivitamin - 1 tablet Orally Once a day; Duration: 30 day(s) Active Aspirin 81 81 MG 1 tablet Orally Once a day; Duration: 30 day(s) Active Cefuroxime Axetil 250 MG 1 tablet Orally every 12 hrs; Duration: 5 day(s) 06/21/2024 Active Carvedilol 12.5 MG 1 tablet with food Orally Twice a day; Duration: 30 days Active Estradiol 0.1 MG/GM as directed Vaginal Active Fluzone High-Dose 0.5 ML as directed Intramuscular Active NIFEdipine ER 90 MG 1 tablet on an empty stomach Orally Once a day Active Acetaminophen 500 MG 1 capsule as needed Orally every 6 hrs Active Remeron 15 MG 1 tablet at bedtime Orally Once a day 06/21/2024 Active Problems Problem Type SNOMED Code ICD Code Onset Dates Problem Status W/U Status Risk Notes Problem Insomnia, unspecified type (G47.00) Active confirmed Vital Signs Blood pressure systolic 122 mm Hg 06/22/19 25 Blood pressure diastolic 60 mm Hg 025 Heart Rate 88 /min 06/21/2024 Height 58 in 06/21/2024 Weight 106 lbs 06/21/2024 BMI 22.15 kg/m2 06/21/2024 Encounters Encounter Location Date Provider Diagnosis [facility] [address] [facility] [address] [place] [id number] 06/21/2024 Charlene Benoit Microscopic hematuri a R31.29 ; Insomnia, unspecified type G47.00 and BMI 22.0-22.9, adult Z68.22 Assessments Encounter Date Diagnosis (ICD Code) Assessment Notes Treatment Notes Treatment Clinical Notes Section Notes 06/21/2024 Microscopic hematuria (ICD-10 - R31.29) 06/21/2024 Insomnia, unspecified type (ICD-10 - G47.00) 06/21/2024 BMI 22.0-22.9, adult (ICD-10 - Z68.22) Plan Of Treatment Medication Medication Name Sig Start Date Stop Date Notes Cefuroxime Axetil 250 MG 1 tablet Orally every 12 hrs; Duration: 5 day(s) 06/21/2024 Remeron 15 MG 1 tablet at bedtime Orally Once a day 06/21/2024 Next Appt Details Follow Up: via phone to repo rt test results, Reason: Provider Name:Charlene Colton Danielgogo y, 10/23/2024 04:30:00 PM, [address] [facility] [address] [facility], [address], [place], [id number], Progress Notes * QUEENIE ROSEDOB:1945 (79 yo F)Acc No.[id number]:06/21/2024 Progress Notes Patient: QUEENIE CANNON Provider: MARVA Dang :1945 A ge:78 Y S ex:Female Date:06/21/2024 Address:[address] [place] [address], [place], [id number] Pcp:Chas Barrera Subjective: * Chief Complaints: * 1 . Urinary incontinence. * HPI: U rology: Denies : incontinence. Pt sts when she goes it is a small amount. Pt daughter sts she has blood in her urine. She also is having trouble sleeping and gaining weight. Her daugther would like for her to have something to help her. * ROS: D ERMATOLOGY: no R mady. [...] Subcutaneous every 6 months , Taking Nystatin 843615 UNIT/ML Suspension 5 mL Mouth/Throat Three times a day , Taking Pantoprazole Sodium 40 MG Tablet Delayed Release Take 1 tablet by mouth once daily , Taking Atorvastatin Calcium 10 MG Tablet 1 tablet Orally Once a day , Taking Eliquis 5 MG Tablet 1 tab(s) Orally Two times a day , Taking Rolling Walker with seat - - 1 as needed , Not-Taking Furosemide 20 MG Tablet 1 [...] 1 tablet Orally Once a day , Medication List reviewed and reconciled with the patient * Allergies: N .K.D.A. Objective: * Vitals: W t: 106, Temp: 98.3, BP: 122/60, HR: 88, O2 Sat: 95% on RA, Nurse: mirta, Ht: 58, BMI:22.15. * Examination: G eneral Examination: General Appearance: N AD. H EENT: u nremarkable.?Oral cavity: n o lesions, mucosa moist and WNL, no erythema. N anthony: s upple, no lymphadenopathy. C hest: n ormal shape and expansion. H eart: R SR. L ungs: c lear to auscultation. A bdomen: bowel sounds present, soft and nontender. N eurologic Exam: I ntact, gait normal. S kin: n ormal, no rash. P eripheral pulses: n ormal (2+) bilaterally. E xtremities: n o leg edema. Assessment: * Assessment: 1. M icroscopic hematuria - R31.29 (Primary) 2 . I nsomnia, unspecified type - G47.00 3 . B IL 22.0-22.9, adult - Z68.22 Plan: * Treatment: Value Reference Range C ulture, Urine See Below - * S pecimen Source Urine - Void - * Charlene Benoit 06/25/2024 12 :33:33 PM > Please let patient's daugther know this showed no growthGoYesica vera 06/27/2024 04:30:07 PM > pt informed of results ?LAB: Urinalysis - Inhouse (Collection Date & Time - 06/21/2024)* Value Reference Range C olor/Clarity yellow/clear * L euk 1+ * N itrite neg * U robili 3.2 * P rotein neg * p H 7.5 * B lood trace intact * S p. Gr. 1.015 * K etone neg * B kristopher neg * G raoul neg * Samira Chacon 06/21/2024 11:2 6:34 AM > Provider reviewed results while patient in office. 2.?Insomnia, unspecified type? Start Remeron Tablet, 15 MG, 1 tablet at bedtime, Orally, Once a day, 30, Refills 1.?? * Procedure Codes: G 2211 Complex [place], [address] Urinalysis, no micro, 3074F SYST BP LT 130 MM HG, 3078F DIAST BP < 80 MM HG * Follow Up: v ia phone to report test results * Images: Billing Information: * Visit Code: 67339 Office Visit, Est Pt., Level 4. * Procedure Codes: G2211 Complex e/[place] [address] Urinalysis, no micro. 3074F SYST BP LT 130 MM HG. 3078F DIAST BP < 80 MM HG. * Electronic signature of MARVA Elizalde on 10/18/2024 at 03:51 PM EDT Sign off status: Pending * Provider: MARVA Dang Date: 0 06/21/2024 Generated for Bassem plascencia/Makeda/Julianneitting on: 0 10/18/2024 03:51 PM EDT History and Physical Notes * HPI (History of Present Illness) Category Sub-Category Detail Notes Category Not es Urology incontinence Pt sts when she goes it is a small amount. Pt daughter sts she has blood in her urine. She also is having trouble sleeping and gaining weight. Her daugther would like for her to have something to help her. Examination Category Sub-Category Detail Notes Category Not es General Examination HEENT: unremarkable Heart: RSR Lungs: clear to auscultatio n Abdomen: bowel sounds present , soft and nontender Extremities: no leg edema General Appearance: NAD Skin: normal, no rash Neurologic Exam: Intact, gait normal Neck: supple, no lymphaden opathy Oral cavity: no lesions, mucosa m oist and WNL, no erythema Peripheral pulses: normal (2+) bilatera lly Chest: normal shape and exp ansion
--- OUTSIDE RECORDS SUMMARY | 2024-07-31 06:50 | XMS_ITS ---
Author Organization [facility] Address [address] [facility] [address] [place] [phone] Care Team Providers Care Puttier Name Role Phone Chas Barrera Primary Care Provider DanielCharlene brooks Unavailable [phone] Allergies No Known Allergies Results Component Value [...] mouth once daily; Duration: 90 Active Nystatin 762271 UNIT/ML 5 mL Mouth/Throa t Three times [...] Status W/U Status Risk Notes Problem Colostomy complication (K94.00) Active confirmed Vital Signs Blood pressure systolic 110 mm Hg 08/01/19 25 Blood pressure diastolic 52 mm Hg 025 Heart Rate 80 /min 07/31/2024 Height 58 in 07/31/2024 Weight 115.2 lbs 07/31/2024 BMI 24.07 kg/m2 07/31/2024 Encounters Encounter Location Date Provider Diagnosis [facility] [address] [facility] [address] [place], [place] [address], [place] [phone] 07/31/2024 hCarlene Benoit Lower extremity corky a R60.0 ; [...] Details Follow Up: via phone, Reason : Provider Name:Charlene briseno, 10/23/2024 04:30:00 PM, [address], [place], [place], [phone], Progress Notes * QUEENIE ROSEDOB:1945 (79 yo F)Acc No.[id number]:07/31/2024 Progress Notes Patient: QUEENIE CANNON Provider: MARVA Dang :1945 A ge:79 Y S ex:Female Date:07/31/2024 Address:[address] [place] [address], [id number] Pcp:Chas Barrera Subjective: * Chief Complaints: * [...] Subcutaneous every 6 months , Taking Nystatin 862725 UNIT/ML Suspension 5 mL Mouth/Throat Three times [...] G 2211 Complex e/[place], [address] CAPILLARY BLOOD DRAW, 12706 CBC WITH AUTO DIFF * Follow Up: v ia phone * Images: Billing Information: * Visit Code: 41635 Office Visit, Est Pt., Level 4. * Procedure Codes: G2211 Complex e/[place]. [address] CAPILLARY BLOOD DRAW. 11450 CBC WITH AUTO DIFF. * Electronic signature of MARVA Elizalde on 10/18/2024 at 03:52 PM EDT Sign off status: Pending * Provider: MARVA Dang Date: 0 07/31/2024 Generated for Bassem plascencia/Falianeg/eTransmitting on: 0 10/18/2024 03:52 PM EDT History [...]
--- OUTSIDE RECORDS SUMMARY | 2024-09-04 14:00 | XMS_ITS | Encounter Summary ---
Author Organization [place] [address] Care Team Providers Care Fork Assembler Name Role Phone Unavailable Primary Care Provider Unavailabl e Reason for Referral * (Routine) - Pending Review Specialty Diagnoses / Procedures Referred By Contac t Referred To Contact Diagnoses Uterovaginal prolapse, incomplete Procedures AMB UROGYN SURGERY COMMUNICATION ORDER Leta Dupont MD [address] [place] [address] Phone: tel: fax: Referral ID Status Reason Start Date Expiration Date V isits Requested Visits Authorized [id number] Pending Review 09/04/2024 09/04/2025 1 1 Encounter Details Date Type Department Care Team (Late st Contact Info) Description 09/04/2024 2:00 PM EDT Office Visit [facility] Urogynecology [address] [address] Leta Dupont MD [address] [place] [address] Uterovaginal prolapse, incomplete (Primary Dx) Social [...] proceed with surgery. I discussed both vaginal seminole tissue repairs and abdominal[facility] I also reviewed obliterative procedures, [...] calendar day: None Leta Dupont MD, FACOG, [facility] Division of Urogynecology and Reconstructive Pelvic Surgery [address] [place] [address] [email or web address] 09/04/24 3:12 PM documented in this encounter Plan of Treatment Upcoming Encounters Date Type Department Care Team (Latest Contact Info) Description 10/23/2024 10:00 AM EDT Appointment EDG PRE-ADMIT TESTING [facility] [place] [address] 10/31/2024 10:30 AM EDT Office Visit SEP COLORECTAL EDG [address] [address] Jennifer Ely APRN 20 [facility] [address] [place] [address] 11/07/2024 7:30 AM EDT Hospital Encounter EDG PERIOP [facility] [place] [address] Monica Arzola MD 20 [facility] [address] [place] [address] 11/07/2024 7:30 AM EDT Anesthesia Event EDG PERIOP [facility] [place] [address] Jagruti Campa, ELISA [address] [facility] [place] [address] 11/07/2024 7:30 AM EDT - 11/07/2024 11:50 AM EDT Surgery EDG PERIOP One [facility] [place] [address] Monica Arzola MD [address] [facility] [address] [place] [address] DAVINCI ROBOTIC REVERSAL GRECIA POUCH 01/16/2025 7:30 AM EST Hospital Encounter FTT PERIOP [address] [place] [address] Leta Dupont MD [address] [place] [address] 01/16/2025 7:30 AM EST - 01/16/2025 9:05 AM EST Surgery FTT PERIOP [address] [place] [address] Leta Dupont MD [address] [place] [id number] LEFORT COLPOCLEISIS 02/26/2025 9:00 AM EST Office Visit [facility] Urogynecology [address] [address] Antonina Ji PA-C [address] [place] [address] Scheduled Procedures Name Priority Associated Diagnoses Date/Ti me DAVINCI ROBOTIC REVERSAL GRECIA POUCH Colostomy status (HCC) 11/07/2024 7:30 AM EDT LEFORT COLPOCLEISIS Uterovaginal prolapse, incomplete 01/16/2025 7:30 AM EST POSTERIOR REPAIR (RECTOCELE REPAIR) Uterovaginal prolapse, incomplete 01/16/2025 7:30 AM EST LEVATOR PLICATION Uterovaginal prolapse, incomplete 01/16/2025 7:30 AM EST CYSTOSCOPY Uterovaginal prolapse, incomplete 01/16/2025 7:30 AM EST documented as of this encounter Visit Diagnoses Diagnosis Uterovaginal prolapse, incomplete- Primary Colostomy status (HCC) Colostomy status Uterovaginal prolapse, incomplete documented in this encounter Orders Nursing Count Last Ordered Date First Orde red Date [facility] UROGYN SURGERY COMMUNICATION ORDER 1 documented in this encounter
--- OUTSIDE RECORDS SUMMARY | 2024-09-16 08:19 | XMS_ITS | Encounter Summary ---
Author Organization [place] [address] Care Team Providers Care Bottom Brusher Name Role Phone Unavailable Primary Care Provider Unavailabl e Reason for Referral * Diagnostic X-Ray (Routine) - Pending Review Specialty Diagnoses / Procedures Referred By Clover t Referred To Contact Radiology Diagnoses Colostomy status (HCC) Procedures FL BARIUM ENEMA Monica Arzola MD [address] [place] [address] [address] [place] [address] Phone: tel: fax: Referral ID Status Reason Start Date Expiration Date V isits Requested Visits Authorized [id number] Pending Review 09/06/2024 09/06/2025 1 1 Reason for Visit * Diagnostic X-Ray (Routine) - Pending Review Specialty Diagnoses / Procedures Referred By Clover osman Referred To Contact Radiology Diagnoses Colostomy status (HCC) Procedures FL BARIUM ENEMA Monica Arzola MD [address] [place] [address] [address] [place] [address] Phone: tel: fax: Referral ID Status Reason Start Date Expiration Date V isits Requested Visits Authorized [id number] Pending Review 09/06/2024 09/06/2025 1 1 Encounter Details Date Type Department Care Team (Latest Contact Info) Description 09/16/2024 8:19 AM EDT - 09/16/2024 11:59 PM EDT Hospital Encounter [facility] [address] [place] [address] Monica Arzola MD 20 [facility] [address] [place] [address] Colostomy status (HCC) Discharge Disposition: [...] under the skin Every 6 Months. 01/17/2023 ferrous sulfate 325 mg (65 mg iron) Oral Tablet, Delayed Release (E.C.) Take 325 mg by mouth daily (with breakfast). 03/01/2024 NIFEdipine (ADALAT CC) 90 mg Oral Tablet Sustained Release Take 90 mg by mouth. polyethylene glycol (GLYCOLAX) 17 gram/dose Oral PowderIndication s:Uterovaginal prolapse, incomplete Begin Miralax, 17 g (1 capful) PO mixed in your favorite drink once a day beginning 1 week prior to surgery, after surgery drink this twice a day for 2 weeks 595 g 10/10/2024 apixaban (ELIQUIS) 5 mg Oral Tablet Take by mouth 2 times daily. esomeprazole (NEXIUM) 20 mg Oral Capsule, Delayed Release(E.C.) Take 20 mg by mouth daily. magnesium aspart,citrate,o xide 400 mg magnesium Oral Capsule 400 mg. 5 Vit B Comp & C-Vit E-FA-Laura-Zn 0.4 mg Oral Tablet 1 Tablet. 07/24/202 5 documented as of this encounter Discharge Disposition Disposition Code Departure Means Destination Home or Self Care documented in this encounter Plan of Treatment Upcoming Encounters Date Type Department Care Team (Latest Contact Info) Description 10/23/2024 10:00 AM EDT Appointment EDG PRE-ADMIT TESTING [facility] [place] [address] 10/31/2024 10:30 AM EDT Office Visit SEP COLORECTAL EDG [address] [facility] [address] [place] [id number] Jennifer Ely, SUPERVISOR PIPELINES 20 [facility] [address] [place] [address] 11/07/2024 7:30 AM EDT Hospital Encounter EDG PERIOP [facility] [address] [place] [address] Monica Arzola MD [address] [facility] [address] [place] [address] 11/07/2024 7:30 AM EDT Anesthesia Event EDG PERIOP [facility] [address] [place] [address] Jagruti Campa, SUPERVISOR PIPELINES [address] [facility] [address] [place] [address] 11/07/2024 7:30 AM EDT - 11/07/2024 11:50 AM EDT Surgery EDG PERIOP [facility] [address] [place] [facility] Monica Arzola MD [address] [facility] [address] [place] [address] DAVINCI ROBOTIC REVERSAL GRECIA POUCH 01/16/2025 7:30 AM EST Hospital Encounter FTT PERIOP [address] [place] [address] Leta Dupont MD [address] [place] [address] 01/16/2025 7:30 AM EST - 01/16/2025 9:05 AM EST Surgery FTT PERIOP [address] [place] [address] Leta Dupont MD [address] [place] [address] LEFORT COLPOCLEISIS 02/26/2025 9:00 AM EST Office Visit SEP Urogynecology [address] [address] Antonina Ji PA-C [address] [place] [address] Scheduled Procedures Name Priority Associated [...] AM EST documented as of this encounter Procedures Procedure [...] of 12 images retained in PACS. FINDINGS: [employer] film the abdomen demonstrates moderate stool burden [...] of 12 images retained in PACS. FINDINGS: [employer] film the abdomen demonstrates moderate stool burden [...] of the ordering clinician. Monica Arzola MD IM FLUOROSCOPY ORDERABLES Final Result documented in this encounter Visit Diagnoses Diagnosis Colostomy status (HCC) Colostomy status Colostomy status (HCC) Colostomy status Uterovaginal prolapse, incomplete documented in this encounter Administered Medications Inactive [...]
--- OUTSIDE RECORDS SUMMARY | 2024-09-23 10:24 | XMS_ITS | Encounter Summary ---
Author Organization [place] [address] Care Team Providers Care Usability Specialist Name Role Phone Unavailable Primary Care Provider Unavailabl e Reason for Referral * MRI/CAT Scan (Routine) - Closed Specialty Diagnoses / Procedures Referred By Contac t Referred To Contact Radiology Diagnoses Colostomy status (HCC) Procedures CT ABDOMEN PELVIS W CONTRAST Monica Arzola MD [address] [place] [address] [address] [place] [address] Phone: tel: fax: Referral ID Status Reason Start Date Expiration Date Visits Re quested Visits Authorized [id number] Closed 08/15/2024 08/15/2025 1 1 Reason for Visit * MRI/CAT Scan (Routine) - Closed Specialty Diagnoses / Procedures Referred By Contac t Referred To Contact Radiology Diagnoses Colostomy status (HCC) Procedures CT ABDOMEN PELVIS W CONTRAST Monica Arzola MD [address] [place] [address] [address] [place] [address] Phone: tel: fax: Referral ID Status Reason Start Date Expiration Date Visits Re quested Visits Authorized [id number] Closed 08/15/2024 08/15/2025 1 1 Encounter Details Date Type Department Care Team (Latest Contact Info) Description 09/23/2024 10:24 AM EDT - 09/23/2024 11:59 PM EDT Hospital Encounter [facility] [address] [place] [address] Monica Arzola MD [address] [facility] [address] [place] [address] Colostomy status (HCC) Discharge Disposition: [...] Release(E.C.) Take 20 mg by mouth daily. 5 magnesium aspart,citrate,o xide 400 mg magnesium Oral Capsule 400 mg. 5 Vit B Comp & C-Vit E-FA-Laura-Zn 0.4 mg Oral Tablet 1 Tablet. 5 documented as of this encounter Discharge Disposition Disposition Code Departure Means Destination Home or Self Care documented in this encounter Plan of Treatment Upcoming Encounters Date Type Department Care Team (Latest Contact Info) Description 10/23/2024 10:00 AM EDT Appointment EDG PRE-ADMIT TESTING [facility] [place] [address] 10/31/2024 10:30 AM EDT Office Visit SEP COLORECTAL EDG [address] [facility] [address] [place] [address] Jennifer Ely, MICA PLATE LAYER HAND [address] [facility] [address] [place] [address] 11/07/2024 7:30 AM EDT Hospital Encounter [facility] PERI[facility] [address] [place] [address] Monica Arzola MD [address] [facility] [address] [place] [address] 11/07/2024 7:30 AM EDT Anesthesia Event EDG PERIOP [facility] [place] [address] Jagruti Campa, MICA PLATE LAYER HAND [address] [facility] [address] [place] [address] 11/07/2024 7:30 AM EDT - 11/07/2024 11:50 AM EDT Surgery [facility] [address] [place] [address] Monica Arzola MD [address] [facility] [address] [place] [address] DAVIN[facility] ROBOTIC REVERSAL GRECIA POUCH 01/16/2025 7:30 AM EST Hospital Encounter [facility] [address] [place] [address] Leta Dupont MD [address] [place] [address] 01/16/2025 7:30 AM EST - 01/16/2025 9:05 AM EST Surgery [facility] [address] [place] [address] Leta Dupont MD [address] [place] [address] [place] [facility] 02/26/2025 9:00 AM EST Office Visit SEP Urogynecology [address] [address] Antonina Ji PA-C [address] [place] [address] Scheduled Procedures Name Priority Associated [...] Procedure Name Priority Date/Time Associated Diagnosis Comments CT ABDOMEN PELVIS W CONTRAST Routine 09/23/2024 10:47 AM EDT Colostomy status (HCC) CREATININE ISTAT Routine 09/23/2024 10:3 4 AM EDT documented in this encounter Results * CT ABDOMEN PELVIS W CONTRAST (09/23/2024 10:47 AM EDT) Anatomical Region Laterality Modality Abdomen, Chest, Pelvis, Hip Comp uted Tomography 09/23/2024 10:4 7 AM EDT Impressions 09/23/2024 2:41 PM EDT Colostomy in the left anterior pelvic wall along with the 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 No related bowel obstruction. Left abdomen pelvic mesenteric edema of unclear clinical significance. - Note: Radiology results need to be interpreted within a comprehensive clinical context. If you have questions about the radiology report, please contact the office of the ordering clinician. Narrative 09/23/2024 2:[address] ABDOMEN AND PELVIS WITH CONTRAST, 09/23/2024 10:47 AM CLINICAL HISTORY: Z93.3-Colostomy status (HCC)-ICD-10-CM. COMPARISON: None. PROCEDURE COMMENTS: Multi-detector CT of the abdomen and pelvis with multiplanar reformatting. Isovue 370 IV contrast given along with radiodense GI contrast as recorded in EPIC. Dose 1 : CT DLP Total : 265.33 mGycm DLP Spiral Max : 262.01 mGycm Maximum CTDI Vol : 5.83 mGy FINDINGS: LOWER THORAX: Multiple bibasilar curvilinear atelectasis. ABDOMEN AND PELVIS: Liver, spleen, bilateral adrenal glands, pancreas are unremarkable. No radiodense gallstone. Multiple bilateral hypodense lesions in the kidneys. Probable cysts. However, recommend a correlation with the renal ultrasound. Largest one about 2.1 cm and is in the right kidney. No hydronephrosis. Atherosclerotic aorta without aneurysm. No dominant retroperitoneal adenopathy. Colostomy in the left the anterior pelvic wall. No bowel obstruction. Diverticulosis of the colon. 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 There is the increased haziness at the left abdominal mesentery. No discrete bladder mass or calcification. Retroverted uterus. Pessary in the vagina. No free flowing ascites. No dominant pelvic adenopathy. No acute osseous abnormality. Degenerative a spondylosis of with the grade 1 anterolisthesis of L3 on L4 and L4 on L5. Procedure Note Cahya Chaney MD - 09/23/2024 CT ABDOMEN AND PELVIS WITH CONTRAST, 09/23/2024 10:47 AM CLINICAL HISTORY: Z93.3-Colostomy status (HCC)-ICD-10-CM. COMPARISON: None. PROCEDURE COMMENTS: Multi-detector CT of the abdomen and pelvis with multiplanar reformatting. Isovue 370 IV contrast given along withradiodense GI contrast as recorded in EPIC. Dose 1 : CT DLP Total : 265.33 mGycm DLP Spiral Max : 262.01 mGycm Maximum CTDI Vol : 5.83 mGy FINDINGS: LOWER THORAX: Multiple bibasilar curvilinear atelectasis. ABDOMEN AND PELVIS: Liver, spleen, bilateral adrenal glands, pancreasare unremarkable. No radiodense gallstone. Multiple bilateral hypodense lesions in the kidneys. Probable cysts.However, recommend a correlation with the renal ultrasound. Largest one about 2.1cm and is in the right kidney. No hydronephrosis. Atherosclerotic aorta without aneurysm. No dominant retroperitonealadenopathy. Colostomy in the left the anterior pelvic wall. No bowel obstruction. Diverticulosis of the colon. Stomal hernia with the herniated small bowelloops within the colostomy tract. There is the increased haziness at the left abdominal mesentery. No discrete bladder mass or calcification. Retroverted uterus. Pessary inthe vagina. No free flowing ascites. No dominant pelvic adenopathy. No acute osseous abnormality. Degenerative a spondylosis of with the grade1 anterolisthesis of L3 on L4 and L4 on L5. 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 No related bowel obstruction. Left abdomen pelvic mesenteric edema of unclear clinical significance. - Note: Radiology results need to be interpreted within a comprehensiveclinical context. If you have questions about the radiology report, please contactthe office of the ordering clinician. Monica Arzola MD IMG CT ORDERABLES Final Result * (ABNORMAL) CREATININE ISTAT (09/23/2024 10:34 AM EDT) Creatinine-iST AT 1.5(H) 0.6 - 1.3 mg/dL 09/23/2024 10:36 AM EDT [facility] Blood BLOOD SPECIMEN / Unknown 09/23/2024 10:34 AM EDT 09/23/2024 10:36 AM EDT Monica Arzola MD POINT OF CARE TEST ORDERABLES Fi nal Result [facility] [address] [place] [address] documented in this encounter Visit Diagnoses Diagnosis Colostomy status (HCC) Colostomy status Colostomy status (HCC) Colostomy status Uterovaginal prolapse, incomplete documented in this encounter Administered Medications Inactive Administered Medications - up to 1 most recent administrations Medication Order MAR Action Action Date Dose Rate Site iopamidoL (ISOVUE-370) 370 mg iodine /mL (76 %) injection (LOW) 100 mL 100 mL, Intravenous, ONCE PRN, 1 dose, Starting on Mon09/23/24 at 1025, Until Mon09/23/24 at 1053, Radiography/Imaging, Radiology Procedure, VESICANT , CT (Contrasts) Given 09/23/2024 10:53 AM EDT 100 mL Right Arm sodium chloride 0.9% syringe Intravenous, ONCE PRN, 1 dose, Starting on Mon09/23/24 at 1025, Until Mon09/23/24 at 1043, Line Care, Flush peripheral lines every 12 hours, central lines every 8 hours, and after IV medication, CT (Contrasts) Given 09/23/2024 10:43 AM EDT 10 mL Right Arm documented in this encounter
--- OUTSIDE RECORDS SUMMARY | 2024-10-03 08:44 | XMS_ITS | Encounter Summary ---
Author Organization [place] [address] Care Team Providers Care Tooth Polisher Name Role Phone Unavailable Primary Care Provider Unavailabl e Reason for Referral * Surgical (Routine) - Pending Review Specialty Diagnoses / Procedures Referred By Clover osman Referred To Contact Gastroenterology Diagnoses Colostomy status (HCC) Colostomy present (HCC) Perforation of intestine (HCC) Procedures COLONOSCOPY PA COLONOSCOPY FLX DX W/COLLJ SPEC WHEN PFRMD PA COLONOSCOPY FLX W/ENDOSCOPIC MUCOSAL RESECTION Monica Arzola MD [address] [place] [address] DR [address] [place] [address] Phone: tel: fax: Referral ID Status Reason Start Date Expiration Date V isits Requested Visits Authorized [id number] Pending Review 09/11/2024 09/11/2025 1 1 Reason for Visit * Surgical (Routine) - Pending Review Specialty Diagnoses / Procedures Referred By Clover osman Referred To Contact Gastroenterology Diagnoses Colostomy status (HCC) Colostomy present (HCC) Perforation of intestine (HCC) Procedures COLONOSCOPY PA COLONOSCOPY FLX DX W/COLLJ SPEC WHEN PFRMD PA COLONOSCOPY FLX W/ENDOSCOPIC MUCOSAL RESECTION Monica Arzola MD [address] [place] [address] DR [address] [place] [address] Phone: tel: fax: Referral ID Status Reason Start Date Expiration Date V isits Requested Visits Authorized [id number] Pending Review 09/11/2024 09/11/2025 1 1 Encounter Details Date Type Department Care Team (Latest Contact Info) Description 10/03/2024 8:44 AM EDT - 10/03/2024 11:59 PM EDT Hospital Encounter EDG ENDOSCOPY [place] [address] Monica Arzola MD [address] [facility] [address] [place] [address] Sean Rizo MD [address] [facility] [address] [place] [address] Clary Lovell CRNA [address] [facility] [place] [address] Colostomy status (HCC); Colostomy present (HCC); Perforation of intestine (HCC) Discharge Disposition: Home or Self Care [...] Sign Reading Time Taken Comments Blood Pressure 136/63 10/03/2024 10:38 AM EDT Pulse 71 10/03/2024 10:38 AM EDT Temperature 36.2 C (97.2 F) 10/03/2024 10:38 AM EDT Respiratory Rate 16 10/03/2024 10:38 AM EDT Oxygen Saturation 96% 10/03/2024 10:38 AM EDT Inhaled Oxygen Concentration - - Weight 50.3 kg (111 lb) 10/03/2024 9:01 AM EDT Height 147.3 cm (4' 10 ) 10/03/2024 9:01 AM EDT Body Mass Index 23.2 10/03/2024 9:01 AM EDT documented in this encounter Discharge Instructions * Discharge Instructions* Alondra Stark RN - 10/03/2024 9:24 AM EDT [facility] Discharge Instructions - Following Endoscopy A responsible adult, 18 years or older must be in attendance until the next A.M. Rest quietly today. May resume usual diet. Do not drive or operate any machinery until the next A.M., or as instructed. No alcoholic beverages for 24 hours. Do not make any legal or important decisions for the next 24 hours. Call the physician???s office for a follow-up visit or as needed Patient discharged to the care of daughter ADDITIONAL INSTRUCTIONS: Call Dr. Arzola at [phone] if the following occurs: Colonoscopy: Severe abdominal pains and swelling (mild abdominal cramps and gas pains can be expected), nausea and vomiting, rectal bleeding (with biopsy or polyps a small amount of blood can be expected), body temp. over 101 degrees, chills. Other Instructions: Medications Reviewed No Changes Rx: [facility] Discharge Instructions - Following Anesthesia We appreciate the opportunity to care for you today! Here are a few reminders as you head home: A responsible adult, 18 years or older must be in attendance until tomorrow morning. Rest quietly today. May resume usual diet as tolerated or as directed by your surgeon. Do not drive or operate any machinery until tomorrow morning or as instructed. Do not make any legal or important decisions for the next 24 hours. Do not drink alcoholic beverages or take sleeping pills for 24 hours unless otherwise directed. If you received a nerve block for post-operative pain control, protect your blocked arm/leg. It is numb. Carefully pad your limb to prevent pressure sores and other injuries. Be careful with applyingcold/warm to the blocked limb. Numbness will alter the sensation of the limb and could damage your skin if you cannot correctly feel the temperature. If you have questions or concerns regarding your anesthesia experience, please call our office at . Get Well Soon! [facility] Post colonoscopy instructions - You may have some bloating this is normal, continue to monitor and if you have severe pain then notify the office or go to the ER - Diarrhea is normal - You may have some bleeding post procedure, this is also normal. If bleeding does not stop contactthe office or go to the ER. If specimens were taken during your procedure pathology will be resulted in 1-2 weeks. If you do not see your results contact the office. - Plan for follow up in office in 2-4 weeks or on the phone if we contact you with your pathology results documented in this encounter Medications at Time of Discharge [...] day for 2 weeks 595 g 10/10/2024 documented as of this encounter Discharge Disposition Disposition Code Departure Means Destination Home or Self Care documented in this encounter H&P Notes * Monica Arzola MD - 10/03/2024 9:30 AM EDT Referring provider: Leta Dupont,* History of Presenting [...] her and makes it hard to pouch. Physical Exam: General: Comfortable, in no acute [...] colostomy based on just the exterior appearance. Assessment and Plan: 79 y.o. female presents [...] fashion. I would like to thank Leta Dupont,* for referring the patient to colorectal surgery. Dr. Monica Arzola MD Colon and Rectal Surgeon [facility] Office phone ([place]/ [place]): [phone] documented in this encounter Plan of Treatment Upcoming Encounters Date Type Department Care Team (Latest Contact Info) Description 10/23/2024 10:00 AM EDT Appointment EDG PRE-ADMIT TESTING [facility] [place] [address] 10/31/2024 10:30 AM EDT Office Visit SEP COLORECTAL EDG [address] [place] [address] [address] [place] [address] Jennifer Ely, WAITER AND CASHIER [address] [place] [address] 11/07/2024 7:30 AM EDT [facility] [place] [address] Monica Arzola MD [address] [place] [address] [address] [place] [address] 11/07/2024 7:30 AM EDT Anesthesia Event EDG [facility] [place] [address] Jagruti Campa, WAITER AND CASHIER [address] [facility] [place] [address] 11/07/2024 7:30 AM EDT - 11/07/2024 11:50 AM EDT Surgery EDG [facility] [place] [address] Monica Arzola MD [address] [place] [address] [address] [place] [address] DAVINCI ROBOTIC REVERSAL NII POUCH 01/16/2025 7:30 AM EST Hospital Encounter FTT PERIOP [address] [place] [address] Leta Dupont MD [address] [place] [id number] 01/16/2025 7:30 AM EST - 01/16/2025 9:05 AM EST Surgery FTT PERIOP [address] [place] [address] Leta Dupont MD [address] [place] [address] [place]FORT COLPOCLEISIS 02/26/2025 9:00 AM EST Office Visit SEP Urogynecology [address] [address] Antonina Ji PA-C [address] [place], [place] [id number] Scheduled Procedures Name Priority Associated Diagnoses Date/Ti me DAVINCI ROBOTIC REVERSAL NII POUCH Colostomy status (HCC) 11/07/2024 7:30 AM EDT LEFORT COLPOCLEISIS Uterovaginal prolapse, incomplete 01/16/2025 7:30 AM EST POSTERIOR REPAIR (RECTOCELE REPAIR) Uterovaginal prolapse, incomplete 01/16/2025 7:30 AM EST LEVATOR PLICATION Uterovaginal prolapse, incomplete 01/16/2025 7:30 AM EST CYSTOSCOPY Uterovaginal prolapse, incomplete 01/16/2025 7:30 AM EST documented as of this encounter Procedures Procedure Name Priority Date/Time Associated Diagnosis Comments COLONOSCOPY Routine 10/03/2024 10:08 AM EDT Colostomy status (HCC) Colostomy present (HCC) Perforation of intestine (HCC) documented in this encounter Results * COLONOSCOPY (10/03/2024 10:08 AM EDT) Anatomical Region Laterality Modality Endoscopy Narrative 10/03/2024 10:08 AM EDT Table formatting from the original result was not included. Findings Diverticula in the descending colon Healthy Nii pouch in the sigmoid colon Recommendation Follow up with me in clinic Pre-Procedure Diagnosis / Indication Perforation of intestine (HCC), Colostomy status (HCC), Colostomy present (HCC) Post-Procedure Diagnosis None Staff Staff Role DEN Quispe CRNA, MD Anesthesiologist Divya Novoa RN Administrative Assistant Receptionist Monica Arzola MD Performing Provider Medications See Anesthesia Record. Preprocedure A history and physical has been performed, and patient medication allergies have been reviewed. The patient's tolerance of previous anesthesia has been reviewed. The risks and benefits of the procedure and the sedation options and risks were discussed with the patient. All questions were answered and informed consent obtained. ASA 3 - Patient with severe systemic disease Details of the Procedure The patient underwent monitored anesthesia care, which was administered by an anesthesia professional. The patient's blood pressure, heart rate, level of consciousness, oxygen saturation, respirations, ECG and ETCO2 were monitored throughout the procedure. A digital rectal exam was performed. A perianal exam was performed. The scope was introduced through the anus and stoma and advanced to the cecum. Insufflated with carbon dioxide. Retroflexion was performed in the rectum. The quality of bowel preparation was evaluated using the [place] Bowel Preparation Scale with scores of: right colon = 3, transverse colon = 3, left colon = 3. The total BBPS score was 9. Bowel prep was adequate. The patient experienced no blood loss. The procedure was not difficult. The patient tolerated the procedure well. There were no apparent adverse events. 20 cm rectal stump. Patient provided education and educated on specific discharge instructions. Patient educated on medications given during the procedure and new medications for discharge. Patient verbalizes understanding of discharge education. Patient stable and awaiting transport for discharge. Events Procedure Events Event Event Time ENDO SCOPE IN TIME 10/03/2024 9:44 AM ENDO SCOPE OUT TIME 10/03/2024 9:49 AM ENDO SCOPE IN TIME 10/03/2024 9:51 AM ENDO CECUM REACHED 10/03/2024 9:59 AM ENDO SCOPE OUT TIME 10/03/2024 10:03 AM Specimens No specimens collected Anesthesia Event Time In Patient In - Proc. Room 09:39 AM Monica Arzola MD ENDOSCOPY PROCEDURE ORDERABLES F inal Result documented in this encounter Visit Diagnoses Diagnosis Colostomy status (HCC) Colostomy status Colostomy present (HCC) Perforation of intestine (HCC) Perforation of intestine Colostomy status (HCC) Colostomy status Uterovaginal prolapse, incomplete documented in this encounter Administered Medications Inactive Administered Medications - up to 1 most recent administrations Medication Order MAR Action Action Date Dose Rate Site lactated ringers infusion Intravenous, at 50 mL/hr, PREPROCEDURE CONTINUOUS, Starting on Mon10/02/24 at 1227, Until Mon10/04/24 at 0026, To be given in SDS/Pre-op Holding Area, Pre-op (Holding/SDS Meds) IV Restarted 10/03/2024 9:38 AM EDT documented in this encounter Discontinued Medications Medication Sig Discontinue Reason Start Date End Da te polyethylene glycol (GOLYTELY) 236-22.74-6.74 -5.86 gram Oral Recon SolnIndications:Colost dewayne status (HCC),Colostomy present (HCC),Perforation of intestine (HCC) At 2 pm on the day prior, drink THE ENTIRE volume. Clear liquids ALL DAY prior. Removed During Admission Medication Review 09/11/2024 10/03/2024 magnesium aspart,citrate,oxide 400 mg magnesium Oral Capsule 400 mg. Stop Taking at Discharge 10/03/2024 Vit B Comp & C-Vit E-FA-Laura-Zn 0.4 mg Oral Tablet 1 Tablet. Stop Taking at Discharge 10/03/2024 apixaban (ELIQUIS) 5 mg Oral Tablet Take by mouth 2 times daily. Stop Taking at Discharge 10/03/2024 esomeprazole (NEXIUM) 20 mg Oral Capsule, Delayed Release(E.C.) Take 20 mg by mouth daily. Stop Taking at Discharge 10/03/2024 documented as of this encounter Orders Medications Ordered That Frankie ht Not Have Been Administered Count Last Ordered Date First Ordered Date droPERidol (INAPSINE) injection 0.625 mg 1 10/03/2024 fentaNYL (SUBLIMAZE) injection 25 mcg 1 HYDROmorphone (DILAUDID) injection 0.25 mg 1 10/03/2024 meperidine (DEMEROL) injecti on (PF) 12.5 mg 1 10/03/2024 ondansetron (ZOFRAN) injection 4 mg 1 10/03 ondansetron (ZOFRAN-ODT) dis integrating tablet 8 mg 1 10/03/2024 oxyCODONE (ROXICODONE) immed iate release tablet 5 mg 1 10/03/2024 promethazine (PHENERGAN) 12. 5 mg in sodium chloride 0.9% 10 mL injection 10/03/2024 promethazine (PHENERGAN) 6.2 5 mg in sodium chloride 0.9% 10 mL injection 1 10/03/2024 lactated ringers infusion 1 10/02/2024 Discharge Count Last Ordered Date First Orde red Date DISCHARGE PATIENT 1 10/03/2024 documented in this encounter
--- OUTSIDE RECORDS SUMMARY | 2024-10-03 09:38 | XMS_ITS | Encounter Summary ---
Author Organization [place] [address] Care Team Providers Care Private Sector Executive Name Role Phone Unavailable Primary Care Provider Unavailabl e Encounter Details Date Type Department Care Team (Late st Contact Info) Description 10/03/2024 9:38 AM EDT Anesthesia Event EDG ENDOSCOPY [facility] [address] [place] [id number] Sean Rizo MD [address] [facility] [address] [place] [address] Swetha Bay APRN [address] [place] [address] [place] [address] Anesthesia Record Procedure Summary Procedure Name Responsible Anesthesiologist Anesthesia Start Time Anesthesia Stop Time COLONOSCOPY Sean Rizo MD 10/03/24 0938 5 1008 Events Date Time Event Comment 10/03/2024 0905 AN Equip Check 0924 0938 An Start 0938 An Start Data 0938 Start Supplemental O2 Disabl es direct capture of O2 [ANES AGENT O2 [8465016595] and Air flow [ANES AGENT AIR [[id number]] variables into chart. 0940 Immediate Pre Anesthetic Ass es 0942 Anesthesia Ready 0943 Time out 0944 Incision 1006 an stop data 1008 Handoff I completed my SBAR handoff to the receiving nurse which has included the followin. Identification of the patient, family, or patient surrogate 2. Identification of the responsible practitioner 3. Pertinent medical history 4. Surgical procedure and reason for procedure 5. Intraoperative anesthetic management 6. All current lines, drains and respiratory support. 7. Outstanding follow up orders (X-rays, consults etc) 8. Expectations/Plans for the early post-procedure period 9. Opportunity for questions and acknowledgement of understanding from the receiving PACU/ICU steam box operator 1008 An Stop Meds Name Total propofol (DIPRIVAN) injection 60 mg propofol (DIPRIVAN) infusion 10 mg/mL 91 ,797.5 mcg lidocaine injection 1% 25 mg lactated ringers infusion 500 mL * Agents Name O2 N2O Air * Blood No blood administrations on file. Lines, Drains, and Airways Type Details Placement Removal Peripheral IV 10/03/24; 921; 22; Right; Wrist; Feli rn; 1; 10/03/24; 1044; Therapy completed; Catheter intact, Dressing applied, No Complications 10/03/24 09 by Jordana Carrasquillo RN 10/03/24 1044 by Alondra Stark RN Airway Device: Nasal Cannul a Salter; Placement Date: 10/03/24; Placement Time: 937 (created via procedure documentation); Removal Date: 10/03/24; Removal Time: 12210/03/24 0938 by Clary Lovell CRNA 10/03/24 1223 by Discharge Provider, Automatic documented in this encounter Social History Tobacco Use Types Packs/Day Years Used Date Smoking Tobacco: Never Smokeless Tobacco: Never Comments No Sex and Gender Information Value Date Recorded Sex Assigned at Not on file Legal Sex Female 3:37 PM EDT Gender Identity Not on file Sexual Orientation Not on file documented as of this encounter Procedure Notes * Clary Lovell CRNA - 10/03/2024 9:45 AM EDTAssociated Order(s): Airway Intraop Airway Placement: Date/Time: 10/03/2024 9:38 AM Airway type: Nasal cannula salter documented in this encounter OR Notes * Anesthesia Postprocedure Evaluation - Sean Rizo MD - 10/03/2024 12:23 PM EDT Post-Anesthesia Evaluation Note Patient Name: Alesha Szymanski Patient Date: October 03, 2024 Post-Anesthesia Evaluation Patient Location: PACU Post op vitals: stable Difficult airway: no Nausea controlled: yes Level of consciousness: awake and alert Post anesthesia pain: adequate analgesia Airway patency: patent Respiratory status: room air Cardiovascular status: stable Hydration status: euvolemic Temperature: Normothermia Perioperative complications: NONE Vitals Value Taken Time BP 136/63 10/03/24 10:38 Resp 16 10/03/24 10:38 SpO2 96 % 10/03/24 10:38 Temp 36.2 ??C (97.2 ??F) 10/03/24 10:38 Pulse 71 10/03/24 10:38 * Anesthesia Preprocedure Evaluation - Sean Rizo MD - 10/03/2024 8:55 AM EDT Pre-Anesthesia Evaluation Note Patient Name: Alesha Szymanski Sex: female Patient : 1945 Age: 79 y.o. Patient Date: October 03, 2024 COLONOSCOPY Anesthesia Evaluation Previous anesthesia. No history of anesthetic complications: Airway Mallampati: II TM distance: >3 FB Neck ROM: full No increased risk of difficult airway Dental Dental exam findings: upper dentures Pulmonary Comments: Chronic Cough (+) Pulmonary embolism (H/O) Physical exam: Comments: Clear to auscultation Cardiovascular (+)Hypertension: Hyperlipidemia CHF: Arrhythmias (PAF): atrial fibrillation Valvular problems/murmurs (Mild AR): /AI, Murmur and MS/MR Shortness of breath: [place] Physical exam: Rhythm: regular Rate: normal Neuro/Psych - negative ROS GI/Hepatic/Renal Comments: Mixed stress and urge urinary incontinence H/O colon perforation, s/p resection, colostomy (+)GERD/PUD: Endo/Other Comments: Insomnia (+)anticoagulation therapy (Eliquis) GLASS POLISHER Comments: Stage III Pelvic Organ Prolapse- Following with Dr. Dupont Additional Pre-evaluation comments 09/05/22 ECHO reviewed in Care Everywhere: Left Ventricle: The left ventricle is small. There is concentric remodeling. The left ventricular systolic function is normal. The LVEF is visually estimated at 60 - 65%. The left ventricular filling pressure is normal. ?? Right Ventricle: The right ventricle is normal in size. The right ventricular systolic function is normal. ?? Aortic Valve: There is mild aortic valve regurgitation. ?? Pericardium: No pericardial effusion. ?? There is no recent study available for direct vsqg-gq-nuim comparison. Opioids Body mass index is 23.2 kg/m??. Anesthesia Plan ASA 3 Last solid intake: The patient has not eaten within the last 8 hours. Last clear liquid intake: The patient has not had clear liquids within the last 2 hours. Anesthesia Plan: MAC Induction: intravenous Monitors: STD Clearance to hold anticoagulation scanned into media tab 09/17/24 Limited information in chart. Outside medical records in media tab reviewed Informed consent Anesthetic plan and risks discussed with: patient. Chart Reviewed and patient examined documented in this encounter Miscellaneous Notes * PAT Pre Evaluation for Anesthesia - Swetha Bay APRN - 10/02/2024 9:50 AM EDT Pre-Anesthesia Evaluation Note Patient Name: Alesha Szymanski Sex: female Patient : 1945 Age: 79 y.o. Patient Date: October 02, 2024 COLONOSCOPY Anesthesia Evaluation Previous anesthesia. Airway Dental Pulmonary Comments: Chronic Cough (+) Pulmonary embolism (H/O) Cardiovascular (+)Hypertension: Hyperlipidemia CHF: Arrhythmias (PAF): atrial fibrillation Valvular problems/murmurs (Mild AR): /AI, Murmur and MS/MR Shortness of breath: [place] Neuro/Psych - negative ROS GI/Hepatic/Renal Comments: Mixed stress and urge urinary incontinence H/O colon perforation, s/p resection, colostomy (+)GERD/PUD: Endo/Other Comments: Insomnia (+)anticoagulation therapy (Eliquis) GLASS POLISHER Comments: Stage III Pelvic Organ Prolapse- Following with Dr. Dupont Additional Pre-evaluation comments 09/05/22 ECHO reviewed in Care Everywhere: Left Ventricle: The left ventricle is small. There is concentric remodeling. The left ventricular systolic function is normal. The LVEF is visually estimated at 60 - 65%. The left ventricular filling pressure is normal. ?? Right Ventricle: The right ventricle is normal in size. The right ventricular systolic function is normal. ?? Aortic Valve: There is mild aortic valve regurgitation. ?? Pericardium: No pericardial effusion. ?? There is no recent study available for direct jgil-yd-evkh comparison. Opioids There is no height or weight on file to calculate BMI. Anesthesia Plan Anesthesia Plan: MAC Clearance to hold anticoagulation scanned into media tab 09/17/24 Limited information in chart. Outside medical records in media tab reviewed Chart Reviewed documented in this encounter Plan of Treatment Upcoming Encounters Date Type Department Care Team (Latest Contact Info) Description 10/23/2024 10:00 AM EDT Appointment EDG PRE-ADMIT TESTING [facility] [place] [address] 10/31/2024 10:30 AM EDT Office Visit SEP COLORECTAL EDG [address] [facility] [address] [place] [address] Jennifer Ely APRN [address] [facility] [address] [place] [address] 11/07/2024 7:30 AM EDT Hospital Encounter EDG PERIOP [facility] [place] [address] Monica Arzola MD [address] [place] [address] [address] [place] [address] 11/07/2024 7:30 AM EDT Anesthesia Event EDG PERIOP [facility] [place] [address] Jagruti Campa APRN [address] [facility] [place] [address] 11/07/2024 7:30 AM EDT - 11/07/2024 11:50 AM EDT Surgery EDG PERIOP [facility] [place] [address] Monica Arzola MD [address] [place] [address] [address] [place] [address] DAVINCI ROBOTIC REVERSAL GRECIA POUCH 01/16/2025 7:30 AM EST Hospital Encounter FTT PERIOP [address] [place] [address] Leta Dupont MD [address] [place] [id number] 01/16/2025 7:30 AM EST - 01/16/2025 9:05 AM EST Surgery FTT PERIOP [address] [place] [address] Leta Dupont MD [address] [place] [id number] LEFORT COLPOCLEISIS 02/26/2025 9:00 AM EST Office Visit SEP Urogynecology [address] [address] Antonina Ji PA-C [address] [place] [address] Scheduled Procedures Name Priority Associated [...] Procedure Name Priority Date/Time Associated Diagnosis Comments INTRAOP AIRWAY PLACEMENT Routine 10/03/2024 9:38 AM EDT documented in this encounter Results * INTRAOP AIRWAY PLACEMENT (10/03/2024 9:38 AM EDT) Narrative [facility] - 10/03/2024 9:38 AM EDT Clary Lovell CRNA 10/03/2024 10:19 AM Intraop Airway Placement: Date/Time: 10/03/2024 9:38 AM Airway type: Nasal cannula salter us Sean English [place] ANESTHESIA Edited Result - Final [facility] [address] [place] [address] documented in this encounter Visit Diagnoses Not on filedocumented in this encounter Administered Medications Inactive Administered Medications - up to 1 most recent administrations Medication Order MAR Action Action Date Dose Rate Site lactated ringers infusion Intravenous, at 50 mL/hr, PREPROCEDURE CONTINUOUS, Starting on Mon10/02/24 at 1227, Until Mon10/04/24 at 0026, To be given in SDS/Pre-op Holding Area, Pre-op (Holding/SDS Meds) IV Restarted 10/03/2024 9:38 AM EDT lidocaine 1% 10 mg/mL (1 %) injection Intravenous, PRN (Anesthesia), Starting on Yohana 10/03/24 at 0941, Until Yohana 10/03/24 at 1008, Anesthesia Intra-op Given 10/03/2024 9:41 AM EDT 25 mg propofol (DIPRIVAN) infusion 10 mg/mL Intravenous, CONTINUOUS PRN, Starting on Yohana 10/03/24 at 0941, Until Yohana 10/03/24 at 1008, Anesthesia Intra-op Rate/Dose Change 10/03/2024 9:48 AM EDT 100 mcg/kg/min 30.18 mL/hr propofoL (DIPRIVAN) injection Intravenous, PRN (Anesthesia), Starting on Yohana 10/03/24 at 0941, Until Yohana 10/03/24 at 1008, Anesthesia Intra-op Given 10/03/2024 9:51 AM EDT 20 mg documented in this encounter
--- OUTSIDE RECORDS SUMMARY | 2024-10-18 15:52 | XMS_ITS | Encounter Summary ---
Author Organization [place] [address] Care Team Providers Care Exchange Teller Name Role Phone Unavailable Primary Care Provider Unavailabl e Reason for Visit * Reason Onset Date Comments Surgery Scheduling 09/05/2024 Encounter Details Date Type Department Care Team (Late st Contact Info) Description 09/05/2024 Telephone [facility] Urogynecology [address] [phone] Melanie Villagomez LPN Surgery Scheduling [...] Filled Start Date End Date polyethylene glycol (GLYCOLAX) 17 gram/dose Oral PowderIndications: Uterovaginal prolapse, incomplete Begin Miralax, 17 g (1 capful) PO mixed in your favorite drink once a day beginning 1 week prior to surgery, after surgery drink this twice a day for 2 weeks 595 g 10/10/2024 documented in this encounter Miscellaneous Notes * Addendum Note - Melanie Villagomez LPN - 10/10/2024 10:03 AM EDTAddended by: MELANIE VILLAGOMEZ on: 10/10/2024 10:03 AM Modules accepted: Orders * Telephone Encounter - Melanie Villagomez LPN - 10/10/2024 9:47 AM EDTSummary: Surgery Scheduled Discussed surgery date(s)/time(s) w/ Dr. Little. Coordinated case w/ Dr. Arzola would not be able mahnaz done until at least March, Kellie was okay with 2 different procedures Date: 01/16/25 Time: 729 To be Scheduled: [place] colpocleisis, posterior repair [...] normal activity at 6 weeks without restrictions *Advised need Pre-Op H/P AND Cardiac Clearance within 30 days of surgery *Expect a call from PAT for Pre-Reg *STOP ASA 1 week prior to surgery *MyChart message sent to Patient and Daughter * Telephone Encounter - Melanie Villagomez LPN - 10/04/2024 10:28 AM EDT TEAMS message sent to Isa (Dr. Arzola's vehicle modification technician) advising that Dr. Arzola sent a message to that she sent Patient's order for surgery. I advised thru my message that Dr. Little agrees togo to [facility] on a Monday or , Dr. Little will need to start at 0730 so she is able to get to [facility] to finish her day and Patient wants early October. That will not work because Dr. Little is [place] the first week of October and in [place] the Monday and already scheduled for a Coordinated Case on. I will wait for a return message from Isa * Telephone Encounter - Melanie Villagomez LPN - 09/11/2024 10:26 AM EDT Spoke with Isa (Dr. Arzola's vehicle modification technician) thru TEAMS. She has scheduled Patient's Colonoscopy. She has not received Colostomy Reversal orders yet but she is making a note that when they are ready to schedule she will get in contact with me about a combined case. * Telephone Encounter - Melanie Villagomez LPN - 09/09/2024 2:42 PM EDT Received a vmm from Kellie abernathy, who states they are getting everything set up for surgery for colostomy reversal. She states she will call me when that is all completed. * Telephone Encounter - Melanie Villagomez LPN - 09/05/2024 2:47 PM EDT Lmtcb to discuss surgery date(s)/time(s) w/ Dr. Little. Left vmm for Kellie abernathy (Patient's cell phone # is daughter's number) [...] AM EDT Appointment [facility] PRE-ADMIT TESTING [facility] [address] [place] [address] 10/31/2024 10:30 AM EDT Office Visit [facility]ECTAL [facility] [address] [facility] [address] [place] [address] [place] [phone] Jennifer Ely APRN [address] [place] [address] 11/07/2024 7:30 AM EDT Hospital Encounter [facility] PERIOP [facility] [address] [place] [address] Monica Arzola MD [address] [place] [address] DR [address] [place] [address] 11/07/2024 7:30 AM EDT Anesthesia Event [facility]OP [facility] [place] [address] Jagruti Campa, ELISA [address] [facility] [place] [address] 11/07/2024 7:30 AM EDT - 11/07/2024 11:50 AM EDT Surgery [facility] [place]IOP [facility] [address] Monica Arzola MD [address] [place] [address] DR [address] [place] [address] DAVINCI ROBOTIC REVERSAL GRECIA POUCH 01/16/2025 7:30 AM EST Hospital Encounter [facility] PERIOP [address] [place] [address] Leta Dupont MD [address] [place] [address] 01/16/2025 7:30 AM EST - 01/16/2025 9:05 AM EST Surgery [facility] PERIOP [address] [place] [address] Leta Dupont MD [address] [place] [address] [place] COLPOCLEISIS 02/26/2025 9:00 AM EST Office Visit [facility] Urogynecology [address] [phone] Antonina Ji PA-C [address] [place] [address] Scheduled Orders Name Type Priority Associated Diagnoses Orde r Schedule SURGICAL/PROCEDURE CASE REQUEST - ERAS Procedures Routine Uterovaginal prolapse, incomplete Ordered: 10/10/2024 Scheduled Procedures Name Priority Associated Diagnoses Date/Ti me DAVINCI ROBOTIC REVERSAL GRECIA POUCH Colostomy status (HCC) 11/07/2024 7:30 AM EDT LEFORT COLPOCLEISIS Uterovaginal prolapse, incomplete 01/16/2025 7:30 AM EST POSTERIOR REPAIR (RECTOCELE REPAIR) Uterovaginal prolapse, incomplete 01/16/2025 7:30 AM EST LEVATOR PLICATION Uterovaginal prolapse, incomplete 01/16/2025 7:30 AM EST CYSTOSCOPY Uterovaginal prolapse, incomplete 01/16/2025 7:30 AM EST documented as of this encounter Goals Goal Patient Goal Type Associated Problems Recent Progress Patient-Stated? Author Mayra smiley Goal Care Plan Autogenerated Problem No Apryl Segundo Goal Care Plan Autogenerated Problem No Aisha Price, Clerical Staff documented as of this encounter Visit Diagnoses Diagnosis Uterovaginal prolapse, incomplete- Primary Colostomy status (HCC)- Primary Colostomy status Uterovaginal prolapse, incomplete- Primary Colostomy status (HCC) Colostomy status Uterovaginal prolapse, incomplete documented in this encounter Additional Health Concerns Active Problems Noted Date Diagnosed Date Autogenerated Problem 10/09/2024 Autogenerated Problem 10/10/2024 documented as of this encounter
--- OUTSIDE RECORDS SUMMARY | 2024-10-18 15:52 | XMS_ITS | Clinical Summary ---
Author Organization [facility] Address [address] [place] [address] Phone Care Team Providers Care Sports Psychologist Name Role Phone Unavailable Primary Care Provider Unavailabl e Allergies No known active allergies Medications NIFEdipine (ADALAT CC) 90 mg Oral Tablet Sustained Release Take 90 mg by mouth. Active carvediloL (COREG) 12.5 mg Oral Tablet Take by mouth 2 times daily (with meals). Active atorvastatin (LIPITOR) 10 mg Oral Tablet Take 10 mg by mouth daily. Active aspirin 81 mg Oral tablet Take 81 mg by mouth every 24 hours. 5 Active acetaminophen (TYLENOL) 500 mg Oral Tablet Take 500 mg by mouth every 6 hours. 5 Active Denosumab (PROLIA) 60 mg/mL SubQ Syringe Inject 60 mg under the skin Every 6 Months. 3 Active ferrous sulfate 325 mg (65 mg iron) Oral Tablet, Delayed Release (E.C.) Take 325 mg by mouth daily (with breakfast). 4 Active polyethylene glycol (GOLYTELY) 236-22.74-6.74 -5.86 gram Oral Recon SolnIndications :Colostomy status (HCC) At 2 pm on the day prior, drink THE ENTIRE volume. Clear liquids ALL DAY prior. 4000 mL 5 Active neomycin (MYCIFRADIN) 500 mg Oral TabletIndicatio ns:Colostomy status (HCC) Two tablets by mouth at 2 pm, 3pm, and 7 pm the day before surgery. 6 Tablet 5 Active metroNIDAZOLE (FLAGYL) 500 mg Oral TabletIndicatio ns:Colostomy status (HCC) 2 tablets by mouth at 2 pm, 3 pm, and 7 pm the day before surgery. 6 Tablet 5 Active polyethylene glycol (GLYCOLAX) 17 gram/dose Oral PowderIndicatio ns:Uterovaginal prolapse, incomplete Begin Miralax, 17 g (1 capful) PO mixed in your favorite drink once a day beginning 1 week prior to surgery, after surgery drink this twice a day for 2 weeks 595 g 5 Active magnesium aspart,citrate, oxide 400 mg magnesium Oral Capsule 400 mg. 10/04/19 Discontinu ed(Stop Taking at Discharge) Vit B Comp & C-Vit E-FA-Laura-Zn 0.4 mg Oral Tablet 1 Tablet. 10/04/19 Discontinu ed(Stop Taking at Discharge) apixaban (ELIQUIS) 5 mg Oral Tablet Take by mouth 2 times daily. 10/04/19 Discontinu ed(Stop Taking at Discharge) esomeprazole (NEXIUM) 20 mg Oral Capsule, Delayed Release(E.C.) Take 20 mg by mouth daily. 10/04/19 Discontinu ed(Stop Taking at Discharge) Active Problems Problem Noted Date Diagnosed Date Colostomy status 10/07/2024 Insomnia 07/10/2024 Mixed stress and urge urinary [...] Encounters Date Type Department Care Team Description 10/07/2024 Telephone [facility] [address] [place] [address] DR LITTLE [address] [place] [phone] Isa Barraza RMA Surgery Scheduling; Clearance 10/03/2024 9:38 AM EDT Anesthesia Event [facility] ENDOSCOPY [facility] [place] [address] Sean Rizo MD Trog, Lynnsey, APRN 10/03/2024 8:44 AM EDT - 10/03/2024 11:59 PM EDT Hospital Encounter [facility] ENDOSCOPY [facility] [place] [place] [address] Monica Arzola MD English, Collin, MD Schwietering, Anna, CRNA Colostomy status (HCC); Colostomy present (HCC); Perforation of intestine (HCC) Discharge Disposition: Home or Self Care 10/03/2024 Orders Only [facility] [address] [place] [address] [place] [address] Monica Arzola MD Perforated diverticulum (Primary Dx) 09/23/2024 10:24 AM EDT - 09/23/2024 11:59 PM EDT Hospital Encounter [address] [place] [address] Monica Arzola MD Colostomy status (HCC) Discharge Disposition: Home or Self Care 09/16/2024 8:19 AM EDT - 09/16/2024 11:59 PM EDT Hospital Encounter [facility] [address] [place], [place] [phone] Monica Arzola MD Colostomy status (HCC) Discharge Disposition: Home or Self Care 09/11/2024 Telephone [facility] [address] [place] [address] [place] [address] Isa Barraza RMA Surgery Scheduling (colonoscopy) 09/06/2024 Telephone [facility]P COL[facility]ECTAL [facility] [address] [facility] [address] [place] [address] Lenora Baez MA Other 09/05/2024 Telephone [facility] Urogynecology [address] [phone] Melanie Villagomez LPN Surgery Scheduling 09/04/2024 2:00 PM EDT Office Visit [facility] Urogynecology [address] [phone] Leta Dupont MD Uterovaginal prolapse, incomplete (Primary Dx) 08/16/2024 11:00 AM EDT Procedure visit [facility] Urogynecology [address] [address] Antonina Ji PA-C Mixed stress and urge urinary incontinence (Primary Dx); Urine frequency; Uterovaginal prolapse, incomplete; Ileostomy in place (HCC) 08/15/2024 2:30 PM EDT Office Visit [facility] COLORECTAL EDG [address] [place] [address] DR LITTLE [address] [place] [phone] Monica Arzola MD Colostomy status (HCC) (Primary Dx) from Last 3 Months Immunizations Immunization Administration Dates Next Due Influenza High Dose 12/31/2019,11/20/2017 Pneumococcal Conjugate Vaccine 13 Valent 018 Pneumococcal Conjugate Vaccine 20 Valent 023 Pneumococcal Polysaccharide 23 Valent 04/14/2021 Quadrivalent Influenza High Dose 04/24/2024,12/11,04/14/2021 TST,Unspecified Formulation 04/04/2024, Tdap 08/02/2017 Surgical History Surgery Date Site/Laterality [...] Mass Index 23.2 10/03/2024 9:01 AM EDT Plan of Treatment Upcoming Encounters Date Type Department Care Team (Latest Contact Info) Description 10/23/2024 10:00 AM EDT Appointment EDG PRE-ADMIT TESTING [facility] [place] [address] 10/31/2024 10:30 AM EDT Office Visit SEP COLORECTAL [facility] [address] [facility] [place] [phone] Jennifer Ely, FAMILY LIVING EDUCATOR [address] [facility] [address] [place] [phone] 11/07/2024 7:30 AM EDT [facility] [place] [address] Monica Arzola MD [address] [place] [address] [address] [place] [address] 11/07/2024 7:30 AM EDT Anesthesia Event EDG [facility] [place] [address] Jagruti Campa, FAMILY LIVING EDUCATOR [address] [facility] [place] [address] 11/07/2024 7:30 AM EDT - 11/07/2024 11:50 AM EDT Surgery EDG [facility] [place] [address] Monica Arzola MD [address] [place] [address] [address] [place] [address] DAVINCI ROBOTIC REVERSAL NII POUCH 01/16/2025 7:30 AM EST Hospital Encounter [facility] PERIOP [address] [place] [address] Leta Dupont MD [address] [place] [phone] 01/16/2025 7:30 AM EST - 01/16/2025 9:05 AM EST Surgery [facility] PERIOP [address] [place] [address] Leta Dupont MD [address] [place] [phone] LEFORT COLPOCLEISIS 02/26/2025 9:00 AM EST Office Visit [facility] Urogynecology [address] [phone] Antonina Ji PA-C [address] [place] [address] Scheduled Procedures Name Priority Associated Diagnoses Date/Ti me DAVINCI ROBOTIC REVERSAL NII POUCH Colostomy status (HCC) 11/07/2024 7:30 AM EDT LEFORT COLPOCLEISIS Uterovaginal prolapse, incomplete 01/16/2025 7:30 AM EST POSTERIOR REPAIR (RECTOCELE REPAIR) Uterovaginal prolapse, incomplete 01/16/2025 7:30 AM EST LEVATOR PLICATION Uterovaginal prolapse, incomplete 01/16/2025 7:30 AM EST CYSTOSCOPY Uterovaginal prolapse, incomplete 01/16/2025 7:30 AM EST Health Maintenance Due Date Last Done Comments Wellness Exam Medicare 07[birth year]06/1948 Hepatitis C Screening 07/06/1965 Zoster (1 of 2) 07/06/1997 Bone Density Screening 07/06/2012 RSV or 60+ (1 - 1-dose 75+ series) 07/06/2022 COVID-19 Vaccine ( - season) 2023 Influenza Vaccine (#1) 2024 , 12/28/2022, 04/14/2021, Additional history exists DTaP/TDaP/Td (2 - Td or Tdap) 08/03/2027 08/02/2017 Cologuard Discontinued 07/05/2021 Pneumococcal Vaccine 50+ Completed 023, 04/14/2021, 11/20/2017 Colon Cancer Screening Discontinued Colonoscopy Discontinued 10/03/2024 FIT Discontinued Hepatitis B Vaccine Aged Out No longe r eligible based on patient's age to complete this topic Meningococcal B Vaccine Aged Out No l onger eligible based on patient's age to complete this topic Sigmoidoscopy Discontinued Virtual Colonography Discontinued Goals Goal Patient Goal Type Associated Problems Recent Progress Patient-Stated? Author Autogenera smiley Goal Care Plan Autogenerated Problem No Apryl Segundo Autogenera smiley Goal Care Plan Autogenerated Problem No Aisha Price, Clerical Staff Procedures Procedure Name Priority Date/Time Associated Diagnosis Comments COLONOSCOPY Routine 10/03/2024 10:08 AM EDT Colostomy status (HCC) Colostomy present (HCC) Perforation of intestine (HCC) INTRAOP AIRWAY PLACEMENT Routine 10/03/2024 9:[address] ABDOMEN PELVIS W CONTRAST Routine 09/23/2024 10:47 AM EDT Colostomy status (HCC) CREATININE ISTAT Routine 09/23/2024 10:3 4 AM EDT FL BARIUM ENEMA Routine 09/16/2024 9:27 AM EDT Colostomy status (HCC) SEP URINALYSIS POC Routine 08/16/2024 10 :53 AM EDT Urine frequency from Last 3 Months Results * COLONOSCOPY (10/03/2024 10:08 AM EDT) [...] Quispe CRNA, MD Anesthesiologist Divya Novoa RN Periodicals Clerk Monica Arzola MD Performing Provider Medications See [...] of bowel preparation was evaluated using the [place] Bowel Preparation Scale with scores of: right [...] MD ENDOSCOPY PROCEDURE ORDERABLES F inal Result * INTRAOP AIRWAY PLACEMENT (10/03/2024 9:38 AM EDT) Narrative H LAB - 10/03/2024 9:38 AM EDT Clary LovellDEN 10/03/2024 10:19 AM Intraop Airway Placement: Date/Time: 10/03/2024 9:38 AM Airway type: Nasal cannula salter us Sean LOERA ANESTHESIA Edited Result - Final [facility] [address] [place] [address] * CT ABDOMEN PELVIS W CONTRAST (09/23/2024 [...] L4 and L4 on L5. Procedure Note Chaya Chaney MD - 09/23/2024 CT ABDOMEN AND [...] please contactthe office of the ordering clinician. us Monica Nerwal MD IMG CT ORDERABLES Final Result * (ABNORMAL) CREATININE ISTAT (09/23/2024 10:34 AM EDT) Creatinine-iST AT 1.5(H) 0.6 - 1.3 mg/dL 09/23/2024 10:36 AM EDT [facility] Blood BLOOD SPECIMEN / Unknown 09/23/2024 10:34 AM EDT 09/23/2024 10:36 AM EDT Monica Arzola MD POINT OF CARE TEST ORDERABLES Fi nal Result [facility] [address] [place] [address] * FL BARIUM ENEMA (09/16/2024 9:27 AM [...] of 12 images retained in PACS. FINDINGS: Outsole Caser film the abdomen demonstrates moderate stool burden [...] of 12 images retained in PACS. FINDINGS: Outsole Caser film the abdomen demonstrates moderate stool burden [...] Arzola MD IMG FLUOROSCOPY ORDERABLES Final Result * (ABNORMAL) SEP URINALYSIS POC (08/16/2024 10:53 AM EDT) UA Color POC Yellow Color 08/16/2024 10:56 AM EDT [facility] Appear POC Cloudy(A) Clear 08/16/2024 10:56 AM EDT [facility] Gluc POC Negative Negative mg/dL 08/16/2024 10:56 AM EDT [facility] Bili POC Negative Negative 08/16/2024 10:56 AM EDT [facility] UA Ketones POC Negative Negative mg/dL 08/16/2024 10:56 AM EDT [facility] SG POC 1.015 1.001 - 1.035 no units 08/16/2024 10:56 AM EDT [facility] Blood POC Small(A) Negative 08/16/2024 10:56 AM EDT [facility] UA pH POC 7.0 5.0 - 8.0 pH 08/16/2024 10:56 AM EDT [facility] UA Protein POC Negative Negative mg/dL 08/16/2024 10:56 AM EDT [facility] Urobilinogen POC 0.2 0.2, 1.0 08/16/2024 10:56 AM EDT [facility] UA Nitrite POC Negative Negative 08/16/2024 10:56 AM EDT [facility] [place] UA Leuk Est POC Moderate(A) Negative 08/17/19 10:56 AM EDT [facility] Urine STRUCTURE OF URINARY TRACT PROPER / Unknown 08/16/2024 10:53 AM EDT 08/16/2024 10:56 AM EDT us Antonina Ji PA-C POINT OF CARE TEST OR DERABLES Final Result SEP UROGYNECOLOGY [address] [place] [address] from Last 3 Months Additional Health Concerns Active Problems Noted Date Diagnosed Date Autogenerated Problem 10/09/2024 Autogenerated Problem 10/10/2024 Insurance MemoropA MEDICARE HMO MR
--- OUTSIDE RECORDS SUMMARY | 2024-10-18 15:52 | XMS_ITS | Patient Health Record ---
Author Organization [facility] Address [address] [facility] [address] [place] [id number] Care Team Providers Care Bookkeeper Name Role Phone Chas Barrera Primary Care Provider [phone] Marie Harrison Unavailable [phone] Bettie Willson Unavailable [phone] DanielCharlene brooks Unavailable [phone] Allergies No Known Allergies Results Component Value Reference Range Notes Urinalysis - Inhouse Reviewed date:06/21/2024 02:34:49 PM Interpretation: Performing Lab: Notes/Report: Color/Clarity yellow/clear Leuk 1+ Nitrite neg Urobili 3.2 Protein neg pH 7.5 Blood trace intact Sp. Gr. 1.015 Ketone neg Bili neg Gluc neg P-Culture, Urine Reviewed date:06/27/2024 04:30:25 PM Interpretation:No growth Performing Lab: Notes/Report: Test performed by [facility] [address] [place] [address] , [address], [place] [address] Mitchle Dior MD, Delicatessen Department Manager CLIA: [id number] Specimen Source Urine - Void Culture, Urine See Below Final Report : No growth H-Iron Reviewed date:06/20/2024 08:55:35 AM Interpretation:106 Performing Lab: Notes/Report: SHARE RESULTS WITH TARI YU FE 106 37-170 ug/dL H-Ferritin Reviewed date:06/20/2024 08:55:35 AM Interpretation:260 Performing Lab: Notes/Report: SHARE RESULTS WITH TARI YU BRO 260 11.1-264 ng/ml Delta: 105 on 03/17/24-419 H-CMP Reviewed date:06/20/2024 08:55:35 AM Interpretation:cL 97, CO2 31, BUN 23, CREAT 1.60, GFRAA 38, EGFR 31, GLU 111, CA 11.6 Performing Lab: Notes/Report: SHARE RESULTS WITH TARI YU NA 136 136-145 mmol/L K 4.6 3.5-5.1 [...] AGRATIO 1.4 1.1-1.8 ALP 100 38-126 U/L P-Vitamin D 25-Hydroxy Reviewed date:06/07/2024 04:41:02 PM Interpretation: Performing Lab: Notes/Report: Test performed by [facility] [address] [place] [address] , [facility], [place] [address] Mitchel Dior MD, Delicatessen Department Manager CLIA: [id number] Vitamin D 25-Hydroxy 60.6 30.0-100.0 ng/mL Interpretation of Vitamin D 25 OH: < 20 ng/mL - Deficiency 20 - 29 ng/mL - Insufficiency 30 - 100 ng/mL - Sufficiency > 100 ng/mL - Super-therapeutic- toxicity may occur above this level. Clinical correlation required. P-Iron Reviewed date:06/07/2024 04:41:02 PM Interpretation: Performing Lab: Notes/Report: Test performed by [facility] [address] [place], [place] [address] Dinah Powell, [address], [place] [address] Mitchel Dior MD, Delicatessen Department Manager CLIA: [id number] Iron 34 37-145 ug/dL P-Ferritin Reviewed date:06/07/2024 04:41:02 PM Interpretation: Performing Lab: Notes/Report: Test performed by [facility] [address] , [address], [place] [address] Mitchel Dior MD, Delicatessen Department Manager CLIA: [id number] Ferritin 438.0 13.0-301.0 ng/mL P-Culture, Urine Reviewed date:06/07/2024 04:41:02 PM Interpretation: Performing Lab: Notes/Report: [facility] , [address], [place] [id number] Mitchel Dior MD, Delicatessen Department Manager CLIA: [id number] Specimen Source Urine - Void Culture, Urine See Below Final Report : No Significant Growth P-Comprehensive Metabolic Pa cruz (CMP) Reviewed date:06/07/2024 04:41:03 PM Interpretation: Performing Lab: Notes/Report: Test performed by [facility] [address] , [address], [place] [address] Mitchel Dior MD, Delicatessen Department Manager CLIA: [id number] Sodium 130 135-145 mmol/L Potassium 5.0 3.5-5.3 mmol/L Chloride 86 97-108 mmol/L CO2 33 22-32 mmol/L Glucose 110 65-99 mg/dL BUN 38 8-23 mg/dL Creatinine 3.09 0.50-1.00 mg/dL Calcium 13.7 8.6-10.4 mg/dL ALERT VALUE Results were repeated and confirmed. eGFR by Creatinine 15 >59 mL/min/1.73m2 Protein 6.7 6.0-8.3 g/dL Albumin 3.9 3.5-5.3 g/dL Alkaline Phosphatase 99 35-121 IU/L ALT (SGPT) 14 <5-47 IU/L AST (SGOT) 15 <5-40 IU/L Bilirubin, Total 0.5 <0.2-1.2 mg/dL A/G Ratio 1.4 1.1-2.5 P-Vitamin B12 Reviewed date:06/07/2024 04:41:02 PM Interpretation: Performing Lab: Notes/Report: Test performed by [facility] [address] , [address], [place] [id number] Mitchel Dior MD, Delicatessen Department Manager CLIA: [id number] Vitamin B12 5552 583-0072 pg/mL CBC Fingerstick (in house) Reviewed date:06/05/2024 11:02:30 PM Interpretation: Performing Lab: Notes/Report: wbc 10.8 3.5 - 10 lym 17.2% 15 - 50 mid 5.6% 2 - 15 gran 77.2% 35 - 80 rbc 3.95 3.5 - 5.5 hgb 10.8 11.5 - 16.5 hct 32.3 35 - 55 mcv 81.7 75 - 100 mch 27.3 25 - 35 mchc 33.4 31 - 38 plat 325 100 - 400 Urinalysis - Inhouse Reviewed date:06/05/2024 11:02:43 PM Interpretation: Performing Lab: Notes/Report: Color/Clarity yellow/clear Leuk 1+ Nitrite Neg Urobili 3.2 Protein Trace pH 8.0 Blood 1+ Sp. Gr. 1.015 Ketone Neg Bili Neg Gluc Neg P-Iron Reviewed date:05/01/2024 03:43:07 PM Interpretation: Performing Lab: Notes/Report: Test performed by [facility] [address] [place] [address] , [address], [place] [address] Mitchel Dior MD, Delicatessen Department Manager CLIA: [id number] Iron 10 37-145 ug/dL P-Ferritin Reviewed date:05/01/2024 03:43:07 PM Interpretation: Performing Lab: Notes/Report: Test performed by [facility] [address] [place] [address] , [address], [place] [address] Mitchel Dior MD, Delicatessen Department Manager CLIA: [id number] Ferritin 72.1 13.0-301.0 ng/mL P-Comprehensive Metabolic Pa cruz (CMP) Reviewed date:05/01/2024 03:43:07 PM Interpretation: Performing Lab: Notes/Report: Test performed by [facility] [address] [place] [address] , [facility] [place] [address] Mitchel Dior MD, Delicatessen Department Manager CLIA: [id number] Sodium 135 135-145 mmol/L Potassium 4.2 3.5-5.3 mmol/L Chloride 100 97-108 mmol/L CO2 23 22-32 mmol/L Glucose 116 65-99 mg/dL BUN 9 8-23 mg/dL Creatinine 0.75 0.50-1.00 mg/dL Calcium 8.6 8.6-10.4 mg/dL eGFR by Creatinine 82 >59 mL/min/1.73m2 Protein 5.6 6.0-8.3 g/dL Albumin 3.0 3.5-5.3 g/dL Alkaline Phosphatase 91 35-121 IU/L ALT (SGPT) 10 <5-47 IU/L AST (SGOT) 12 <5-40 IU/L Bilirubin, Total 0.7 <0.2-1.2 mg/dL A/G Ratio 1.2 1.1-2.5 CBC Venipuncture (in house) Reviewed date:04/29/2024 07:41:47 AM Interpretation: Performing Lab: Notes/Report: wbc 8.8 3.5 - 10 lymph 10.4 15 - 50 mid 4.5 2 - 15 gran 85.1 35 - 80 rbc 3.51 3.5 - 5.5 hgb 9.2 11.5 - 16.5 hct 27.5 35 - 55 mcv 78.2 75 - 100 mch 26.3 25 - 35 mchc 33.6 31 - 38 platlet 541 100 - 400 P-Vitamin D 25-Hydroxy Reviewed date:03/01/2024 08:46:38 AM Interpretation: Performing Lab: Notes/Report: Test performed by [facility] [address] [place] [address] , [facility] [place] [address] Mitchel Dior MD, Delicatessen Department Manager CLIA: [id number] Vitamin D 25-Hydroxy 71.2 30.0-100.0 ng/mL Interpretation of Vitamin D 25 OH: < 20 ng/mL - Deficiency 20 - 29 ng/mL - Insufficiency 30 - 100 ng/mL - Sufficiency > 100 ng/mL - Super-therapeutic- toxicity may occur above this level. Clinical correlation required. P-Iron Reviewed date:03/01/2024 08:46:38 AM Interpretation: Performing Lab: Notes/Report: Test performed by [facility] [address] [place] [address] , [place] [address] Mitchel Dior MD, Delicatessen Department Manager CLIA: [id number] Iron 16 37-145 ug/dL P-Ferritin Reviewed date:03/01/2024 08:46:38 AM Interpretation: Performing Lab: Notes/Report: Test performed by [facility] [address] , [address], [place] [address] Mitchel Dior MD, Delicatessen Department Manager CLIA: [id number] Ferritin 9.2 13.0-301.0 ng/mL P-Reticulocyte Count Reviewed date:03/01/2024 08:46:38 AM Interpretation: Performing Lab: Notes/Report: Test performed by [facility] , [address], [place] [address] Mitchel Dior MD, Delicatessen Department Manager CLIA: [id number] Reticulocyte Count 1.8 0.5-2.1 % P-Culture, Urine Reviewed date:03/04/2024 04:50:11 PM Interpretation: Performing Lab: Notes/Report: Test performed by [employer] , [facility] [place] [address] Mitchel Dior MD, Delicatessen Department Manager CLIA: [id number] Specimen Source Urine - Void Culture, Urine See Below Final Report : No growth P-Vitamin B12 Reviewed date:03/01/2024 08:46:38 AM Interpretation: Performing Lab: Notes/Report: Test performed by [facility] [address] , [address], [place] [address] Mitchel Dior MD, Delicatessen Department Manager CLIA: [id number] Vitamin B12 925 825-7514 pg/mL CBC Fingerstick (in house) Reviewed date:02/29/2024 03:13:10 PM Interpretation: Performing Lab: Notes/Report: wbc 9.8 3.5 - 10 lym 19.9 15 - 50 mid 5.9 2 - 15 gran 74.2 35 - 80 rbc 3.24 3.5 - 5.5 hgb 8.4 11.5 - 16.5 hct 25.4 35 - 55 mcv 78.5 75 - 100 mch 25.9 25 - 35 mchc 33.0 31 - 38 plat 354 100 - 400 Urinalysis - Inhouse Reviewed date:02/29/2024 03:13:30 PM Interpretation: Performing Lab: Notes/Report: Color/Clarity yellow/cloudy Leuk 2+ Nitrite Neg Urobili 3.2 Protein Neg pH 7.0 Blood 3+ Sp. Gr. 1.010 Ketone Neg Bili Neg Gluc Neg CBC Fingerstick (in house) Reviewed date:07/31/2024 12:03:02 [...] - 38 plat 285 100 - 400 CBC Fingerstick (in house) Reviewed date:01/10/2024 01:10:10 PM Interpretation: Performing Lab: Notes/Report: wbc 7.4 3.5 - 10 lym 21.3% 15 - 50 mid 4.7% 2 - 15 gran 74.0% 35 - 80 rbc 3.94 3.5 - 5.5 hgb 10.4 11.5 - 16.5 hct 32.5 35 - 55 mcv 82.5 75 - 100 mch 26.5 25 - 35 mchc 32.2 31 - 38 plat 426 100 - 400 Rapid Strep- Inhouse Reviewed date:01/10/2024 01:10:01 PM Interpretation: Performing Lab: Notes/Report: strep test Neg CBC Fingerstick (in house) Reviewed date:11/09/2023 01:15:09 PM Interpretation: Performing Lab: Notes/Report: wbc 9.1 3.5 - 10 lym 22.0 15 - 50 mid 5.2 2 - 15 gran 72.8 35 - 80 rbc 3.92 3.5 - 5.5 hgb 10.5 11.5 - 16.5 hct 32.8 35 - 55 mcv 83.6 75 - 100 mch 26.7 25 - 35 mchc 31.9 31 - 38 plat 367 100 - 400 H-ABG Reviewed date:03/17/2024 08:55:48 PM Interpretation: Performing Lab: Notes/Report: PHART 7.57 7.35-7.45 mmol/L CRITICAL RESULT Results called to:Shira CULVER by Edy Stark, RT at 2254 on 03/16/24 [id number] 24.0 35.0-45.0 mmhg PO2ART 68.4 80-100 mmhg [id number] 21.3 22.0-26.0 mmhg [id number] 22.1 23-27 mmhg BEART -0.7 -2.4-2.3 mmol/L [id number] 95 90-100 % O2 2 KD Y SOURCE Left Radial Influenza Screen (in house) Reviewed date:12/06/2023 01:07:35 PM Interpretation: Performing Lab: Notes/Report: results Neg Covid test (in house) Reviewed date:12/06/2023 03:36:14 PM Interpretation: Performing Lab: Notes/Report: Result: Pos Urinalysis - Inhouse Reviewed date:12/14/2023 10:05:27 AM Interpretation: Performing Lab: Notes/Report: Color/Clarity yello/cludy Leuk 3+ Nitrite neg Urobili 3.2 Protein 2+ pH 7.0 Blood 3+ Sp. Gr. 1.015 Ketone neg Bili 1+ Gluc neg CBC Fingerstick (in house) Reviewed date:12/14/2023 10:05:19 AM Interpretation: Performing Lab: Notes/Report: wbc 8.4 3.5 - 10 lym 30.1 15 - 50 mid 7.8 2 - 15 gran 62.1 35 - 80 rbc 3.93 3.5 - 5.5 hgb 10.4 11.5 - 16.5 hct 32.0 35 - 55 mcv 81.2 75 - 100 mch 26.4 25 - 35 mchc 32.5 31 - 38 plat 330 100 - 400 TEN-UTI panel Reviewed date:12/27/2023 11:22:31 AM Interpretation:Negative Performing Lab: Notes/Report: Negative Reason For Referral Diagnosis 1 Memory loss (R41.3) Referral Organization [facility] Referring Provider First Name Charlene Referring Provider Last Name Cy Referring Provider Speciality Physician [place] [employer] Roller Referred Provider Neurology, . Referred Provider Specialty Neurology General Notes Charlene Benoit 2024 11:59:38 AM > Needs an appt with Tatiana Guerra Brynn 06/19/2024 12:01:06 PM > faxed to [facility] Tatiana Rodriguez Brynn 06/28/2024 11:09:20 AM > spoke to Jillian; referral received Referral Priority Routine Medications Medication SIG (Take, Route, Frequency, Duration) Notes Start Date End Date Status Prolia 60 MG/ML as directed Subcutan eous every 6 months 01/17/2023 Active Magnesium 400 MG as directed Orally Not-Taking Albuterol Sulfate HFA 108 (90 Base) MCG/ACT 1 puff as needed Inhalation every 4 hrs, prn 02/29/2024 Active Losartan Potassium 50 MG 1 tablet Orally Once a day; Duration: 30 day(s) Not-Brian ing Pantoprazole Sodium 40 MG Take 1 tablet by mouth once daily; Duration: 90 Active Nystatin 357255 UNIT/ML 5 mL Mouth/Throa t Three times a day; Duration: 7 days 03/04/2024 Active Simvastatin 40 MG TAKE 1 TABLET BY GRACE TH ONCE DAILY AT BEDTIME; Duration: 90 Not-Taking Acetaminophen 500 MG 1 capsule as needed Orally every 6 hrs Active Ferrous Sulfate 325 (65 Fe) MG 1 tablet Orally once daily; Duration: 30 day(s) 03/01/2024 Not-Taking Fluzone High-Dose 0.5 ML as directed Intramuscular Active Carvedilol 12.5 MG 1 tablet with food Orally Twice a day; Duration: 90 days Active Mirtazapine 15 MG TAKE 1 TABLET BY GRACE TH ONCE DAILY AT BEDTIME; Duration: 30 Active Atorvastatin Calcium 10 MG 1 tablet Orally Once a day; Duration: 90 days Active Rolling Walker with seat - 1 as needed 06/19/2024 Active Eliquis 5 MG 1 tablet Orally twic e a day; Duration: 90 days Active Digoxin 125 MCG 1 tablet Orally Once a day; Duration: 30 days Not-Takin g Verapamil HCl ER 120 MG Take 1 tablet by mouth twice daily; Duration: 90 Active Estradiol 0.1 MG/GM as directed Vaginal Active Multivitamin - 1 tablet Orally Once a day; Duration: 30 day(s) Active Albuterol Sulfate HFA 108 (90 Base) MCG/ACT 1 puff as needed Inhalation every 4 hrs, prn 12/14/2023 Active Furosemide 20 MG 1 tablet Orally Once a day; Duration: 30 day(s) Not-Brian ing Aspirin 81 81 MG 1 tablet Orally Once a day; Duration: 30 day(s) Active Immunizations Vaccine Route Administration Date Status Comme nts Fluzone High Dose (65yr and older) IM Intramuscular 11/20/2017 Administered Fluzone High Dose (65yr and older) IM Intramuscular 12/31/2019 Administered Fluzone High Dose (65yr and older) IM Intramuscular 04/14/2021 Administered Fluzone High Dose (65yr and older) IM Intramuscular 12/28/2022 Administered PNEUMOVAX 23 VACCINE IM Intramuscular 04/14/2021 Administe red Prevnar (PCV13) IM Intramuscular 11/20/2017 Administered Prevnar (PCV20) IM Intramuscular 12/28/2022 Administered Tetanus Tdap-Adacel (over 7yrs) Unknown 08/02/2017 Administered Problems Problem Type SNOMED Code ICD Code Onset Dates Problem Status W/U Status Risk Notes Problem Essential hypertension (58869548) Essential (primary) hypertension (I10) Active confirmed Problem Sciatica (37402863) Sciatica (M54.30) Active confirmed Problem History of pulmonary embolus (157951445) History of pulmonary embolism (Z86.711) Active confirmed Problem Vitamin D deficiency (52619946) Vitamin D deficiency (E55.9) Active confirmed Problem Osteopenia (421477036) Osteopenia (M85.80) Active confirmed Problem Sciatic nerve lesion (596937720) Piriformis syndrome of left side (G57.02) Active confirmed Problem Osteoarthritis (941702116) Osteoarthritis (M19.90) Active confirmed Problem Iron deficiency anemia (09981336) Iron deficiency anemia (D50.9) Active confirmed Problem Paroxysmal atrial fibrillation (158286758) Paroxysmal atrial fibrillation (I48.0) Active confirmed Problem Acute exacerbation of chronic obstructive airways disease (490667521) COPD exacerbation (J44.1) Active confirmed Problem Memory loss (93676739) Memory loss (R41.3) Active confirmed Problem Hyperlipidemia (53832263) Other hyperlipidemia (E78.4) Active confirmed Problem Metabolic encephalopathy (45046922) Metabolic encephalopathy (G93.41) Active confirmed Problem Conductive hearing loss, bilateral (809469746) Conductive hearing loss, bilateral (H90.0) Active confirmed Problem Functional dyspepsia (1198159) Functional dyspepsia (K30) Active confirmed Problem Age-related osteoporosis (824492977) Age-related osteoporosis without current pathological fracture (M81.0) Active confirmed Problem Urge incontinence of urine (73902471) Urge incontinence (N39.41) Active confirmed Problem Constipation (48440639) Constipation, unspecified constipation type (K59.00) Active confirmed Problem COPD - Chronic obstructive pulmonary disease (03391755) Chronic obstructive pulmonary disease, unspecified COPD type (J44.9) Active confirmed Problem Anemia (091174843) Anemia, unspecified type (D64.9) Active confirmed Problem Colostomy present (981956272) Status post colostomy (Z93.3) Active confirmed Problem Insomnia (747822884) Insomnia, unspecified type (G47.00) Active confirmed Problem Atrial fibrillation with rapid ventricular response (320870860807752) Atrial fibrillation with rapid ventricular response (I48.91) Active confirmed Problem Urinary incontinence (760582872) Urinary incontinence, unspecified type (R32) Active confirmed Problem Allergic rhinitis (27418914) Seasonal allergic rhinitis due to other allergic trigger (J30.89) Active confirmed Problem Aortic valve sclerosis (11048171) Aortic valve sclerosis (I35.8) Active confirmed Problem Prolapse of uterus (03380267) Prolapse of uterus (N81.4) Active confirmed Problem Localized, primary osteoarthritis of the ankle and/or foot (038765936) 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) Active confirmed Problem Colostomy and enterostomy malfunction (100734416) Colostomy complication (K94.00) Active confirmed Problem Sciatica (94276882) Sciatica, unspecified laterality (M54.30) Active confirmed Problem Hyperlipidemia (78233725) Other hyperlipidemia (E78.49) Active confirmed Problem Vaginal pessary in situ (5864001865813) Presence of pessary (Z96.0) Active confirmed Problem Anemia (073767545) Acute anemia (D64.9) Active confirmed Problem Gastric reflux (187018502) Gastric reflux (K21.9) Active confirmed Vital Signs Heart Rate 80 /min 07/31/2024 Blood pressure diastolic 52 mm Hg 07/31/2024 Height 58 in 07/31/2024 Blood pressure systolic 110 mm Hg 07/31/2024 Weight 115.2 lbs 07/31/2024 BMI 24.07 kg/m2 07/31/2024 Encounters Encounter Location Date Provider Diagnosis [facility] [address] [facility] [address] [place] [id number] 11/09/2023 Chas Barrera Acute [facility]itis J20 .9 [facility] [address] [facility] [address] [place] [id number] 12/06/2023 Charlene Crowdy COVID-19 U07.1 [facility] [address] [facility] [address] [place] [id number] 12/14/2023 Charlene Crowdy COVID-19 U07.1 ; Bronchitis J40 ; Dysuria R30.0 and Sore on scalp L98.9 [facility] [address] [facility] [address] [place] [id number] 01/10/2024 Charlene Crowdy Acute URI J06.9 and Anemia, unspecified type D64.9 [facility] [address] [facility] [address] [place] [id number] 02/29/2024 Charlene Crowdy Acute anemia D64.9 ; Acute URI J06.9 ; Microscopic hematuria R31.29 ; Wheezing R06.2 ; Vitamin D deficiency E55.9 ; Vitamin B12 deficiency E53.8 and Osteopenia, unspecified location M85.80 [facility] [address] [facility] [address] [place] [id number] 03/07/2024 J Felix Harrison Age-related osteoporosis without current pathological fracture M81.0 [facility] [address] [facility] [address] [place] [id number] 03/12/2024 R Jayant Barrera COPD exacerbation J4 4.1 and Iron deficiency anemia D50.9 [facility] [address] [facility] [address] [place] [id number] 04/26/2024 Charlene Danieldy Perforation of intestine K63.1 ; Status post colostomy Z93.3 ; Pneumonia of both lower lobes due to infectious organism J18.9 ; Pleural effusion, bilateral J90 ; Essential (primary) hypertension I10 ; History of pulmonary embolism Z86.711 ; Paroxysmal atrial fibrillation I48.0 ; Other hyperlipidemia E78.4 and Chronic anemia D64.9 [facility] [address] [facility] [address] [place] [id number] 06/05/2024 Charlene Crowdy Essential (primary) hypertension I10 ; Paroxysmal atrial fibrillation I48.0 ; Recurrent UTI N39.0 ; Iron deficiency anemia D50.9 ; Presence of pessary Z96.0 ; Chronic obstructive pulmonary disease, unspecified COPD type J44.9 ; Vitamin B12 deficiency E53.8 ; Vitamin D deficiency E55.9 and Weight loss R63.4 [facility] [address] [place], [place] [id number] 06/19/2024 Charlene Benoit Hyponatremia E87.1 ; Hyperkalemia E87.5 ; Urinary tract infection without hematuria, site unspecified N39.0 ; Metabolic encephalopathy G93.41 ; Acute renal failure, unspecified acute renal failure type N17.9 ; Memory loss R41.3 ; Iron deficiency E61.1 ; Generalized weakness R53.1 and BMI 21.0-21.9, adult Z68.21 [facility] [address] [place], [place] [id number] 06/21/2024 Charlene Benoit Microscopic hematuri a R31.29 ; Insomnia, unspecified type G47.00 and BMI 22.0-22.9, adult Z68.22 [facility] [address] [place], [place] [id number] 07/31/2024 Charlene Benoit Lower extremity corky a R60.0 ; Colostomy complication K94.00 and Acute cough R05.1 [facility] [address] [place], [place] [id number] 03/01/2024 Charlene Benoit [facility] [address] [place], [place] [id number] 04/17/2024 R Jayant Barrera [facility] [address] [place], [place] [id number] 05/01/2024 Charlene Benoit [facility] [address] [place] [id number] 05/27/2024 R Jayant Barrera [facility] [address] [place], [place] [id number] 06/07/2024 Charlene Benoit [facility] [address] [place], [place] [id number] 06/20/2024 Charlene Benoit [facility] [address] [facility] [address] [place] [id number] 07/10/2024 Chas Barrera [facility] [address] [facility] [address] [place] [id number] 07/31/2024 R Jayant Barrera [facility] [address] [facility] [address] [place] [id number] 09/05/2024 R Jayant Barrera [facility] [address] [facility] [address] [place] [id number] 09/30/2024 Bettie Willson Assessments Encounter Date Diagnosis (ICD Code) Assessment Notes Treatment Notes Treatment Clinical Notes Section Notes 11/09/2023 Acute bronchitis (ICD-10 - J20.9) 12/06/2023 COVID-19 (ICD-10 - U07.1) Fluids, rest, supportive measures for fever and symptoms relief, discussed covid vitamins and isolation period. 01/10/2024 Acute URI (ICD-10 - J06.9) 01/10/2024 Anemia, unspecified type (ICD-10 - D64.9) Will need to recheck a CBC in 2 weeks once she is feeling better. 12/14/2023 Bronchitis (ICD-10 - J40) Gave a sample of trelegy to use for the next few weeks. Will refill albuterol as well. CBC is normal. 12/14/2023 COVID-19 (ICD-10 - U07.1) Has cough syrup at home. 02/29/2024 Acute URI (ICD-10 - J06.9) Has cough medication at home. 02/29/2024 Acute anemia (ICD-10 - D64.9) 03/07/2024 Age-related osteoporosis without current pathological fracture (ICD-10 - M81.0) 03/12/2024 Iron deficiency anemia (ICD-10 - D50.9) She is hemodynamically stable. She is provided a Hemoccult test kit to obtain stool sample at home and return to office. Plan to repeat CBC upon return. 03/12/2024 COPD exacerbation (ICD-10 - J44.1) Finish course of antibiotics and steroids. 04/26/2024 Status post colostomy (ICD-10 - Z93.3) 04/26/2024 Perforation of intestine (ICD-10 - K63.1) Discharge summaries from [facility] reviewed. She has been on eliquis at [place] but her daughter states she has the xarelto at home. I have checked with cardiology and they are okay with her going back on the xarelto. Her daughter will schedule appts with both cardiology and pulmonology. She is also following with Dr. Hurtado. I have also spoken with care management about colostomy supplies and they have been in contact with the patient's daugther. Will get labs today. 06/05/2024 Essential (primary) hypertension (ICD-10 - I10) Patient did not take her BP medication this am. Will go home and take it. Has been started on lasix by cardiology. 06/05/2024 Paroxysmal atrial fibrillation (ICD-10 - I48.0) 06/19/2024 Hyperkalemia (ICD-10 - E87.5) 06/19/2024 Hyponatremia (ICD-10 - E87.1) 06/21/2024 Insomnia, unspecified type (ICD-10 - G47.00) 06/21/2024 Microscopic hematuria (ICD-10 - R31.29) 07/31/2024 Lower extremity edema (ICD-10 - R60.0) [...] cough pills at home. CBC is normal. 06/21/2024 BMI 22.0-22.9, adult (ICD-10 - Z68.22) 06/19/2024 Urinary tract infection without hematuria, site unspecified (ICD-10 - N39.0) 06/05/2024 Recurrent UTI (ICD-10 - N39.0) Patient has not had her pessary changed since February when she saw Dr. Velez. She likely has another UTI which is causing her confusion. Will start on abx and her daughter will go down and make an appt with DIE ATTACHER. 04/26/2024 Pneumonia of both lower lobes due to infectious organism (ICD-10 - J18.9) 02/29/2024 Microscopic hematuria (ICD-10 - R31.29) 12/14/2023 Dysuria (ICD-10 - R30.0) Patient has a lot of UTI's and vaginal infections due to her pessary. She is still waiting to schedule surgery with the OBGYN. Will get a TEN panel today. 12/14/2023 Sore on scalp (ICD-10 - L98.9) 02/29/2024 Wheezing (ICD-10 - R06.2) 06/05/2024 Iron deficiency anemia (ICD-10 - D50.9) Has been getting iron infusions and was feeling better until the past week. 04/26/2024 Pleural effusion, bilateral (ICD-10 - J90) 06/19/2024 Metabolic encephalopathy (ICD-10 - G93.41) 06/05/2024 Presence of pessary (ICD-10 - Z96.0) 06/19/2024 Acute renal failure, unspecified acute renal failure type (ICD-10 - N17.9) 02/29/2024 Vitamin D deficiency (ICD-10 - E55.9) 04/26/2024 Essential (primary) hypertension (ICD-10 - I10) 04/26/2024 History of pulmonary embolism (ICD-10 - Z86.711) 02/29/2024 Vitamin B12 deficiency (ICD-10 - E53.8) 06/05/2024 Chronic obstructive pulmonary disease, unspecified COPD type (ICD-10 - J44.9) 06/19/2024 Memory loss (ICD-10 - R41.3) 06/19/2024 Iron deficiency (ICD-10 - E61.1) 06/05/2024 Vitamin B12 deficiency (ICD-10 - E53.8) 02/29/2024 Osteopenia, unspecified location (ICD-10 - M85.80) Pt is overdue on the prolia. 04/26/2024 Paroxysmal atrial fibrillation (ICD-10 - I48.0) 04/26/2024 Other hyperlipidemia (ICD-10 - E78.4) 06/05/2024 Vitamin D deficiency (ICD-10 - E55.9) 06/19/2024 Generalized weakness (ICD-10 - R53.1) 06/19/2024 BMI 21.0-21.9, adult (ICD-10 - Z68.21) 06/05/2024 Weight loss (ICD-10 - R63.4) Has lost a lot of weight since her colostomy. Her daugther states she does eat but much less than she did before the surgery. Encouraged protein shakes if she didn't eat. 04/26/2024 Chronic anemia (ICD-10 - D64.9) Plan Of Treatment Pending Test Test Name Order Date Mammogram 08/30/2023 Hemoccult- IFOBT (in house) 03/12/2024 H-CBC 06/19/2024 Next Appt Details Provider Name:Charlene Song finn, 10/23/2024 04:30:00 PM, [address] [facility] [address], [place], [place], [id number], Insurance Providers Payer Name Payer Address Payer Phone Subscriber Number Group Number Insured Name Patient Relationship to Insured Coverage Start Date Coverage End Date [employer] (MEDICARE) [address] [address] [place] [address] [id number] QUEENIE ROSE Self - patient is the insured MEDICAID [employer] [address] [place] [address] [id number] QUEENIE ROSE Self - patient is the insured Medications Administered Medication Instructions Date of Administration Dosage Notes Depo- Medrol 40 mg/ml 02/18/2021 1.5 mL Dexamethasone 07/12/2022 1 mL PROLIA 01/18/2023 1 mL left upper arm PROLIA 03/07/2024 1 mL left arm Medical (General) History 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 History ICD Code Hypertension Rapid heart beat ?SVT Hyperlipidemia Polio COVID 19 Vaccination, 08/17 2020, Modern a Surgical History Surgery Date(Month/Year) Appendectomy Colostomy 03/2024 Hospitalization History Reason Date(Month/Year)
--- OUTSIDE RECORDS SUMMARY | 2024-10-18 15:52 | XMS_ITS ---
Author Organization Unknown Vital Signs BpStanding BpSitting BpSupine Date Temperature HeartRate Weight Hei ght Spo2 Respiration Bmi HeadCircumference FieldCount TimeRecorded NeckCircumferen ce WaistCircumference Pulse 110/52 07/31 00:00 :00 98.4 80 115,3.2 0 4,10 24.0 7 6 10/17/2024 10:50:00 122/60 06/21 00:00 :00 98.3 88 106,0 4,10 22.1 5 6 10/17/2024 11:15:00 112/58 06/19 00:00 :00 97.8 76 104,12. 80 4,10 21.9 6 10/17/2024 11:30:00 184/84 06/05 00:00 :00 97.8 70 102,9.6 0 4,10 21.4 4 6 10/17/2024 09:00:00 140/60 04/26 00:00 :00 98.6 62 112,3.2 0 4,10 23.4 5 6 10/17/2024 09:15:00 130/60 03/12 00:00 :00 98.3 80 119,3.2 0 4,10 24.9 1 6 10/17/2024 13:20:00 120/62 02/28 00:00 :00 98.7 78 118,6.4 0 4,10 24.7 4 6 10/17/2024 09:30:00 142/70 01/09 00:00 :00 98.2 70 118,12. 80 4,10 24.8 3 6 10/17/2024 09:45:00 118/58 12/13 00:00 :00 96.6 77 120,3.2 0 4,10 25.1 2 6 10/17/2024 09:00:00 130/64 12/05 00:00 :00 99.1 88 119,0 4,10 24.8 7 6 10/17/2024 11:00:00 148/68 11/08 00:00 :00 98.7 76 121,0 4,10 25.2 9 6 10/17/2024 11:15:00
--- OUTSIDE RECORDS SUMMARY | 2024-10-18 15:52 | XMS_ITS | Referral Summary ---
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
--- OUTSIDE RECORDS SUMMARY | 2024-10-18 15:52 | XMS_ITS | Encounter Summary ---
Author Organization [place] [address] Care Team Providers Care Work Station Support Specialist Name Role Phone Unavailable Primary Care Provider Unavailabl e Encounter Details Date Type Department Care Team (Latest Contact Info) Description 07/12/2024 Results Follow-Up [facility] Urogynecology [address] [address] Antonina Ji PA-C [address] [place] [address] URINE CULTURE (NO STAIN), URINALYSIS [...] AM EDT Appointment EDG PRE-ADMIT TESTING One [facility] [place] [address] 10/31/2024 10:30 AM EDT Office Visit SEP COLORECTAL EDG [address] [place] [address] [place] [address] Jennifer Ely, DIRECTIONAL SURVEY DRAFTER 20 [facility] [address] [place] [address] 11/07/2024 7:30 AM EDT Hospital Encounter EDG [facility] [address] [place] [address] Monica Arzola MD [address] [place] [address] [address] [place] [address] 11/07/2024 7:30 AM EDT Anesthesia Event EDG [facility] [place] [address] Jagruti Campa, DIRECTIONAL SURVEY DRAFTER [address] [facility] [place] [address] 11/07/2024 7:30 AM EDT - 11/07/2024 11:50 AM EDT Surgery EDG [facility] [place] [address] Monica Arzola MD [address] [place] [address] [address] [place] [address] DAVINCI ROBOTIC REVERSAL GRECIA POUCH 01/16/2025 7:30 AM EST Hospital Encounter [facility] [address] [place] [address] Leta Dupont MD [address] [place] [address] 01/16/2025 7:30 AM EST - 01/16/2025 9:05 AM EST Surgery [facility] [address] [place] [address] Leta Dupont MD [address] [place] [id number] [place] COLPOCLEISIS 02/26/2025 9:00 AM EST Office Visit [facility] Urogynecology [address] [phone] Antonina Ji PA-C [address] [place] [address] Scheduled Procedures Name Priority Associated [...]
--- OUTSIDE RECORDS SUMMARY | 2024-10-18 15:52 | XMS_ITS | Encounter Summary ---
Author Organization [place] [address] Care Team Providers Care Restaurant Culinary Manager Name Role Phone Unavailable Primary Care Provider Unavailabl e Reason for Referral * (Routine) - Pending Review Specialty Diagnoses / Procedures Referred By Contac t Referred To Contact Diagnoses Perforated diverticulum Procedures AMB COLORECTAL/SURGERY COMMUNICATION ORDER Monica Arzola MD [address] [place] [address] [place] [address] Phone: tel: fax: Referral ID Status Reason Start Date Expiration Date V isits Requested Visits Authorized [id number] Pending Review 10/03/2024 10/03/2025 1 1 Encounter Details Date Type Department Care Team (Late st Contact Info) Description 10/03/2024 Orders Only SEP COLORECTAL EDG [address] [place] [address] [address] [place] [address] Monica Arzola MD [address] [facility] [address] [place] [address] Perforated diverticulum (Primary Dx) Social History Tobacco Use Types Packs/Day Years Used Date Smoking Tobacco: Never Smokeless Tobacco: Never Comments No Sex and Gender Information Value Date Recorded Sex Assigned at Not on file Legal Sex Female 3:37 PM EDT Gender Identity Not on file Sexual Orientation Not on file documented as of this encounter Plan of Treatment Upcoming Encounters Date Type Department Care Team (Latest Contact Info) Description 10/23/2024 10:00 AM EDT Appointment EDG PRE-ADMIT TESTING One [facility] [address] [place] [address] 10/31/2024 10:30 AM EDT Office Visit SEP COLORECTAL EDG [address] [facility] [address] [place] [phone] Jennifer Ely, ICU STAFF NURSE 20 [facility] [address] [place] [address] 11/07/2024 7:30 AM EDT [facility] [address] [place] [place] [address] Monica Arzola MD [address] [facility] [address] [place] [address] 11/07/2024 7:30 AM EDT Anesthesia Event EDG [facility] [address] [place] [address] Jagruti Campa, ICU STAFF NURSE 1 [facility] [place] [facility] 11/07/2024 7:30 AM EDT - 11/07/2024 11:50 AM EDT [facility] [address] [place] [address] Monica Arzola MD [address] [facility] [address] [place] [address] DAVINCI ROBOTIC REVERSAL GRECIA POUCH 01/16/2025 7:30 AM EST Hospital Encounter [facility] [address] [place] [address] Leta Dupont MD [address] [place] [address] 01/16/2025 7:30 AM EST - 01/16/2025 9:05 AM EST Surgery [facility] [address] [place] [address] Leta Dupont MD [address] [place] [address] [place] COLP[place]LEISIS 02/26/2025 9:00 AM EST Office Visit [facility] Urogynecology [address] [phone] Antonina Ji PA-C [address] [place] [address] Scheduled Procedures Name Priority Associated [...] as of this encounter Visit Diagnoses Diagnosis Perforated diverticulum- Primary Colostomy status (HCC) Colostomy status Uterovaginal prolapse, incomplete documented in this encounter Orders Nursing Count Last Ordered Date First Orde red Date AMB COLORECTAL/SURGERY COMMUNICATION ORDER 1 10/03/2024 documented in this encounter
--- OUTSIDE RECORDS SUMMARY | 2024-10-18 15:52 | XMS_ITS | Clinical Summary ---
Author Organization [facility] Address [address] [place] [address] Care Team Providers Care Airplane Tube Builder Name Role Phone Ananth Almeida MD Primary Care Provider [phone] Social History Tobacco Use Types Packs/Day Years [...] 09/05/2022 11:14 AM EDT Plan of Treatment Health Maintenance Due Date Last Done Comments [facility]-Bone Density Scan 1945 [facility]-Depression Screening 1945 [facility]-Hepatitis C Screening 1945 [facility]-Medicare Annual Wellness (AWV) 1945 [facility]-/Child/Adol SDOH Screenings 1945 [facility]- SDOH Screenings 07/06/1965 [facility]-Adult SDOH Screenings 07/06/1965 [facility]-Zoster Vaccines (1 of 2) 07/06/1997 [facility]-RSV Vaccine: 60+ Years or (1 - 1-dose 75+ series) 07/06/2022 [id number] Vaccine (1 - 2023- season) 2023 [facility]-Influenza [...] patient's age to complete this topic Insurance [facility] MEDICARE Care Teams Airplane Tube Builder Relationship Specialty Start Date End Date Ananth Almeida MD [address] [place] [address] PCP - General 03/13/20
--- OUTSIDE RECORDS SUMMARY | 2024-10-18 15:52 | XMS_ITS | Clinical Summary ---
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
--- OUTSIDE RECORDS SUMMARY | 2024-10-18 15:52 | XMS_ITS | Encounter Summary ---
Author Organization [place] [place] [address] Care Team Providers Care Dinkey Operator Slag Name Role Phone Unavailable Primary Care Provider Unavailabl e Reason for Visit * Reason Onset Date Comments Surgery Scheduling 10/07/2024 Clearance 10/07/2024 Encounter Details Date Type Department Care Team (Late st Contact Info) Description 10/07/2024 Telephone SEP COLORECTAL EDG [address] [facility] [place] [address] Isa Barraza RMA Surgery Scheduling; Clearance Social History Tobacco Use Types Packs/Day Years [...] Refills Last Filled Start Date End Date metroNIDAZOLE (FLAGYL) 500 mg Oral TabletIndications: Colostomy status ([facility]) 2 tablets by mouth at 2 pm, 3 pm, and 7 pm the day before surgery. 6 Tablet 10/08/2024 neomycin (MYCIFRADIN) 500 mg Oral TabletIndications: Colostomy status (HCC) Two tablets by mouth at 2 pm, 3pm, and 7 pm the day before surgery. 6 Tablet 10/08/2024 polyethylene glycol (GOLYTELY) 236-22.74-6.74 -5.86 gram Oral Recon SolnIndications:Co lostomy status (HCC) At 2 pm on the day prior, drink THE ENTIRE volume. Clear liquids ALL DAY prior. 4000 mL 10/08/2024 documented in this encounter Miscellaneous Notes * Telephone Encounter - Isa Barraza, NIKOLE - 10/10/2024 2:54 PM EDT Surgery Information Date: 11/07/24 Arrival time: 5:30 am Location: [address] [place]. [address] Stop taking your Eliquis 3 days prior Pre testing department through the hospital will call and go over medications and medical history. Instructions on Preparation for Surgery 4 Days Before Surgery (11/03/24) Drink 1 bottle of Ensure Clear or other High Protein Drink- (Glucerna for Diabetics) at night before bed Resume normal diet 3 Days Before Surgery (11/04/24) Drink 1 bottle of Ensure Clear or other High Protein Drink- (Glucerna for Diabetics) at night before bed Resume normal diet 2 Days Before Surgery (11/05/24) Drink 1 bottle of Ensure Clear or other High Protein Drink- (Glucerna for Diabetics) at night before bed Resume normal diet 1 Days Before Surgery (11/06/24) Drink 1 bottle of Ensure Clear (this needs to be a clear high protein drink) at night before bed. Clear liquids only Start bowel prep Take oral antibiotics (this is sent to your pharmacy) at 2:00 pm, 3:00 pm and 7:00 pm Bowel Prep Instructions You will start your [...] Gatorade, apple juice, popsicles, jello, broth, sprite. Day of Surgery (11/07/24) Morning of Surgery: Drink 20 oz bottle of Powerade or Gatorade. Finish this at 5:45 am (2 hour prior to your arrival time, or night prior if too early) If you have any questions or concerns, please send me a message through [employer] or call the office at [phone]. Thanks! Isa AGUSTIN * Telephone Encounter - Isa Barraza RMA - 10/09/2024 4:18 PM EDT Called and rescheduled surgery for 11/07/24 Arrival 5:30 am Surgery at 7:30 am * Telephone Encounter - Cheyenne Gunn - 10/09/2024 2:00 PM EDT Patient daughter Kellie is calling wanting to push back surgery by a week or so. Informed her you were currently in office but would reach out when you were available. Thanks! * Telephone Encounter - Isa Barraza RMA - 10/08/2024 3:22 PM EDT Surgery Information Date: 10/17/24 Arrival time: 7:45 am Location: [address] [place]. [address] Pre testing department through the hospital will call and go over medications and medical history. Instructions on Preparation for Surgery 4 Days Before Surgery (10/13/24) Drink 1 bottle of Ensure Clear or other High Protein Drink- (Glucerna for Diabetics) at night before bed Resume normal diet 3 Days Before Surgery (10/14/24) Drink 1 bottle of Ensure Clear or other High Protein Drink- (Glucerna for Diabetics) at night before bed Resume normal diet 2 Days Before Surgery (10/15/24) Drink 1 bottle of Ensure Clear or other High Protein Drink- (Glucerna for Diabetics) at night before bed Resume normal diet 1 Days Before Surgery (10/16/24) Drink 1 bottle of Ensure Clear (this needs to be a clear high protein drink) at night before bed. Clear liquids only Start bowel prep Take oral antibiotics (this is sent to your pharmacy) at 2:00 pm, 3:00 pm and 7:00 pm Bowel Prep Instructions You will start your [...] Gatorade, apple juice, popsicles, jello, broth, sprite. Day of Surgery (10/17/24) Morning of Surgery: Drink 20 oz bottle of Powerade or Gatorade. Finish this at 5:45 am (2 hour prior to your arrival time, or night prior if too early) If you have any questions or concerns, please send me a message through [employer] or call the office at [phone]. Thanks! Isa AGUSTIN * Addendum Note - Isa Barraza RMA - 10/08/2024 2:59 PM EDTAddended by: ISA BARRAZA on: 10/08/2024 02:59 PM Modules accepted: Orders * Telephone Encounter - Isa Barraza RMA - 10/08/2024 2:46 PM EDT Case request, abx, and bowel prep sent * Telephone Encounter - Lotus Post CCMA - 10/07/2024 3:17 PM EDT Patients daughter called to confirm that the patients PCP is Dr. Barrera. * Telephone Encounter - Isa Barraza RMA - 10/07/2024 12:16 PM EDT Order Questions Question Answer Comment Procedure Name Robotic nii reversal Procedure Diagnosis Nii status Anesthesia General ERAS Yes Schedule procedure within 2-[address] Ashley tovar Admission Class Same Day Admit Location EDG Main OR Length of time needed if different from standard: 3 hrs Positioning Lithotomy Prep Bowel prep with Abx Pre-op appointment with: PA Clearance Needed Prior to Surgery PCP Stoma marking/ Ostomy teaching No -No latex allergy -No anticoagulant -No weight loss meds Called Anthony to confirm that Dr. Barrera is the patients pcp. Called Dr. Pack office toget fax number and faxed the clearance. documented in this encounter Plan of Treatment Upcoming Encounters Date Type Department Care Team (Latest Contact Info) Description 10/23/2024 10:00 AM EDT Appointment EDG PRE-ADMIT TESTING [facility] [place] [address] 10/31/2024 10:30 AM EDT Office Visit SEP COLORECTAL EDG [address] [place] [phone] Jennifer Ely APRN [address] [place] [address] [place] [address] 11/07/2024 7:30 AM EDT Hospital Encounter EDG PERIOP [facility] [place] [address] Monica Arzola MD [address] [place] [address] [address] [place] [address] 11/07/2024 7:30 AM EDT Anesthesia Event EDG PERIOP [facility] [place] [address] Jagruti Campa, COOKING CHEF 1 [facility] [place], [place] [id number] 11/07/2024 7:30 AM EDT - 11/07/2024 11:50 AM EDT Surgery EDG PERIOP [place] [address] Monica Arzola MD [address] [facility] [place] [address] DAVINCI ROBOTIC REVERSAL NII POUCH 01/16/2025 7:30 AM EST Hospital Encounter [facility] [address] [place] [address] Leta Dupont MD [address] [place] [address] 01/16/2025 7:30 AM EST - 01/16/2025 9:05 AM EST Surgery [facility] PERIOP [address] [place] [address] Leta Dupont MD [address] [place] [id number] [place] COLPOCLEISIS 02/26/2025 9:00 AM EST Office Visit SEP Urogynecology [address] [phone] Antonina Ji PA-C [facility] [place] [address] Scheduled Orders Name Type Priority Associated Diagnoses Orde r Schedule SURGICAL/PROCEDURE CASE REQUEST - ERAS Procedures Routine Colostomy status (HCC) Ordered: 10/08/2024 Scheduled Procedures Name Priority Associated Diagnoses Date/Ti [...] status (HCC)- Primary Colostomy status Colostomy status (HCC)- Primary Colostomy status Uterovaginal prolapse, incomplete- Primary Colostomy status (HCC) Colostomy status Uterovaginal prolapse, incomplete documented in this encounter Additional Health Concerns Active Problems Noted Date Diagnosed Date Autogenerated Problem 10/09/2024 Autogenerated Problem 10/10/2024 documented as of this encounter
--- OUTSIDE RECORDS SUMMARY | 2024-10-18 15:53 | XMS_ITS | Encounter Summary ---
Author Organization [place] Address [address] [facility] [place] [address] Care Team Providers Care Saturation Equipment Operator Name Role Phone Unavailable Primary Care Provider Unavailabl e Reason for Referral * Surgical (Routine) - Pending Review Specialty Diagnoses / Procedures Referred By Clover t Referred To Contact Gastroenterology Diagnoses Colostomy status (HCC) Colostomy present (HCC) Perforation of intestine (HCC) Procedures COLONOSCOPY CO COLONOSCOPY FLX DX W/COLLJ SPEC WHEN PFRMD CO COLONOSCOPY FLX W/ENDOSCOPIC MUCOSAL RESECTION Monica Arzola MD [address] [facility] [address] [place] [address] Phone: tel: fax: Referral ID Status Reason Start Date Expiration Date V isits Requested Visits Authorized [id number] Pending Review 09/11/2024 09/11/2025 1 1 Reason for Visit * Reason Onset Date Comments Surgery Scheduling 09/11/2024 colonoscopy Encounter Details Date Type Department Care Team (Late st Contact Info) Description 09/11/2024 Telephone SEP COLORECTAL EDG [address] [facility] [address] [place] [address] Isa Barraza RMA Surgery Scheduling [...] liquids ALL DAY prior. 4000 mL 09/11/2024 5 documented in this encounter Miscellaneous Notes * Telephone Encounter - Isa Barraza RMA - 09/17/2024 10:54 AM EDT Images from the original note were not included. * Telephone Encounter - Isa Barraza RMA - 09/11/2024 2:18 PM EDT Colonoscopy Information Date: 10/03/24 Arrival time: 8:30 am Location: [address] [place] [address] [place]. [address] Pre testing department through the hospital will [...] baked beans, ratliff beans, peas and lentils. [place] peanut butter. 1 Day Before Colonoscopy (10/02/24) [...] concerns, please send me a message through [employer] or call the office at [phone]. Thanks! Isa AGUSTIN * Telephone Encounter - [...] I will talk with Dr. Sidney Mayfield grid operator about the time frame. 09/16 Barium [...] doing it seperate * Telephone Encounter - sIa Barraza RMA - 09/11/2024 10:16 AM EDT Message received from Jen Dupont's glazier stained glass. They want to do a combo case [...] AM EDT Appointment EDG PRE-ADMIT TESTING [address] [facility] [place] [address] 10/31/2024 10:30 AM EDT Office Visit SEP COLORECTAL EDG [address] [facility] [address] [place] [address] Jennifer Ely, INSURANCE CLAIM AUDITOR 20 [facility] [address] [place] [id number] 11/07/2024 7:30 AM EDT Hospital Encounter EDG PERIOP [facility] [place] [address] Monica Arzola MD [address] [place] [address] [address] [place] [address] 11/07/2024 7:30 AM EDT Anesthesia Event EDG PERIOP [facility] [place] [address] Jagruti Campa, INSURANCE CLAIM AUDITOR 1 [facility] [place] [address] 11/07/2024 7:30 AM EDT - 11/07/2024 11:50 AM EDT Surgery EDG PERIOP [facility] [place] [address] Moinca Arzola MD [address] [place] [address] [address] [facility] [address] [place] [address] DAVINCI ROBOTIC REVERSAL NII POUCH 01/16/2025 7:30 AM EST [facility] [place] [address] Leta Dupont MD [address] [place] [address] [id number] 01/16/2025 7:30 AM EST - 01/16/2025 9:05 AM EST Surgery FTT PERIOP [address] [place] [address] Leta Dupont MD [address] [place] [address] [place] COLP[place]LEISIS 02/26/2025 9:00 AM EST Office Visit SEP Urogynecology [address] [address] Antonina Ji PA-C [address] [place] [address] Scheduled Procedures Name Priority Associated Diagnoses Date/Ti me CEASARI ROBOTIC REVERSAL NII POUCH Colostomy status (HCC) 11/07/2024 7:30 AM EDT LEFORT COLPOCLEISIS Uterovaginal prolapse, incomplete 01/16/2025 7:30 AM EST POSTERIOR REPAIR (RECTOCELE REPAIR) Uterovaginal prolapse, incomplete 01/16/2025 7:30 AM EST LEVATOR PLICATION Uterovaginal prolapse, incomplete 01/16/2025 7:30 AM EST CYSTOSCOPY Uterovaginal prolapse, incomplete 01/16/2025 7:30 AM EST documented as of this encounter Results * COLONOSCOPY (10/03/2024 10:08 [...] Quispe CRNA, MD Anesthesiologist Divya Novoa RN Hand Grinder Monica Arzola MD Performing Provider Medications See [...] of bowel preparation was evaluated using the [place] Bowel Preparation Scale with scores of: right [...] of intestine Colostomy status (HCC) Colostomy status Colostomy present (HCC) Perforation of intestine (HCC) Perforation of intestine Colostomy status (HCC) Colostomy status Uterovaginal prolapse, incomplete documented in this encounter
--- OUTSIDE RECORDS SUMMARY | 2024-10-18 15:53 | XMS_ITS | Encounter Summary ---
Author Organization [place] [address] Care Team Providers Care Director Long Term Care Name Role Phone Unavailable Primary Care Provider Unavailabl e Reason for Referral * (Routine) - Pending Review Specialty Diagnoses / Procedures Referred By Contac t Referred To Contact Diagnoses Colostomy status (HCC) Procedures AMB COLORECTAL/SURGERY COMMUNICATION ORDER Monica Arzola MD [address] [place] [address] [address] [place] [address] Phone: tel: fax: Referral ID Status Reason Start Date Expiration Date V isits Requested Visits Authorized [id number] Pending Review 09/06/2024 09/06/2025 1 1 * Diagnostic X-Ray (Routine) - Pending Review Specialty Diagnoses / Procedures Referred By Contac t Referred To Contact Radiology Diagnoses Colostomy status (HCC) Procedures FL BARIUM ENEMA Monica Arzola MD [address] [place] [address] [address] [place] [address] Phone: tel: fax: Referral ID Status Reason Start Date Expiration Date V isits Requested Visits Authorized [id number] Pending Review 09/06/2024 09/06/2025 1 1 Reason for Visit * Reason Onset Date Comments Other 09/06/2024 Encounter Details Date Type Department Care Team (Late st Contact Info) Description 09/06/2024 Telephone SEP COLORECTAL [facility] [address] [place] [address] Lenora Baez MA Other Social [...] MA - 09/11/2024 4:16 PM EDT Called [facility] again and requested the records again. She [...] schedule colonoscopy. You can reach her at [phone]. Thanks! * Telephone Encounter - Monica Arzola [...] [facility] I called them and confirmed surgery was done there and they are faxing OP note along with all of the inpatient information from that visit. Phone number for [facility] medical records: [phone] Spoke with Marilee and she is going [...] 10:00 AM EDT Appointment EDG PRE-ADMIT TESTING [facility] [address] [place] [address] 10/31/2024 10:30 AM EDT Office Visit SEP COLORECTAL EDG [address] [place] [address] [place] [phone] Jennifer Ely APRN 20 [facility] [address] [place] [address] 11/07/2024 7:30 AM EDT [facility] [place] [address] Monica Arzola MD [address] [place] [address] [address] [place] [address] 11/07/2024 7:30 AM EDT Anesthesia Event EDG [facility] [place] [address] Jagruti Campa, ELISA 1 [facility] [place] [address] 11/07/2024 7:30 AM EDT - 11/07/2024 11:50 AM EDT Surgery EDG PERIOP [place] [address] Monica Arzola MD [address] [place] [address] [address] [place] [address] DAVINCI ROBOTIC REVERSAL GRECIA POUCH 01/16/2025 7:30 AM EST Hospital Encounter FTT PERIOP [address] [place] [address] Leta Dupont MD [address] [place] [phone] 01/16/2025 7:30 AM EST - 01/16/2025 9:05 AM EST Surgery FTT PERIOP [address] [place] [address] Leta Dupont MD [address] [place] [id number] [place] COLP[place]LEISIS 02/26/2025 9:00 AM EST Office Visit SEP Urogynecology [address] [phone] Antonina Ji PA-C [address] [place] [address] Scheduled Procedures Name Priority Associated [...] of 12 images retained in PACS. FINDINGS: Bark Peeler film the abdomen demonstrates moderate stool burden [...] of 12 images retained in PACS. FINDINGS: Bark Peeler film the abdomen demonstrates moderate stool burden [...] Colostomy status Colostomy status (HCC) Colostomy status Colostomy status (HCC) Colostomy status Uterovaginal prolapse, incomplete documented in this encounter Orders Nursing Count Last Ordered Date First Orde red Date AMB COLORECTAL/SURGERY COMMUNICATION ORDER 1 09/06/2024 documented in this encounter
--- NOTE | 2024-10-18 16:45 | MR_ITS ---
PROCEDURE INFORMATION: Exam: MR Head Without Contrast Exam date and time: 10/18/2024 4:05 PM Age: 79 years old Clinical indication: Altered mental status/memory loss; Additional info: Episodes of confusion and memory loss TECHNIQUE: Imaging protocol: Magnetic resonance imaging of the head without contrast. COMPARISON: CT HEAD/BRAIN WO CON 06/06/2024 10:20 PM FINDINGS: Patient motion. Major vascular flow voids at the skull base are preserved. No extra-axial fluid collection. No obstructive hydrocephalus. Age-related volume loss. Non-specific white matter gliosis, probable chronic microvascular ischemia. No midline shift or significant intracranial mass effect. No diffusion restriction. Mild paranasal sinus disease. No significant mastoid effusion. IMPRESSION: No acute intracranial abnormality.
== END 2024-10-18 23:59 | disposition home or self-care (01) ==
LOC: RAD 15:49
PROVIDERS: PCP Family Medicine; Visit Provider Specialist
DX: N17.9 Acute kidney failure, unspecified (principal); G93.40 Encephalopathy, unspecified; R41.3 Other amnesia; R41.82 Altered mental status, unspecified
CPT/HCPCS: 70551

== ENCOUNTER 2024-12-05 14:22 | Inpatient (IN) | payer MEDICARE, MEDICAID, SELFPAY ==
--- OUTSIDE RECORDS SUMMARY | 2024-04-08 07:00 | XMS_ITS | Continuity of Care Document ---
Author Organization [address] [place] [id number] [place] [address] [address] [place] [address] Phone Care Team Providers Care High Density Talc Coater Operator Name Role Phone Bisi Limon NP Unavailable Unavailabl e Procedures Procedure Date SBSQ NF CARE SF [facility] 10 Advance Directives Directive Yes / No Effective Date File Name No Information Encounters Encounter Description Practice Location Reason(s) For Visit Diagnoses Date Provider Providers Copied on Encounter [facility] CARE [place] [address] [place] [address], [address] [facility] [address] [place], [place], [id number], [place] tel:[phone] [place] [facility] exam, hearing loss (chief complaint) Unspecified hearing loss, bilateral Braxton Mathews . , [place]. Referring Provider: Rito Jamison. Family History Family Member Type Diagnosis Age At Onset No Information Payers Payer name Insurance type Covered republican ID Authoriza tion(s) [employer] Medicare [id number] Medicaid [facility] [id number] Social History Type Description Quantity Date Captured [...]
--- OUTSIDE RECORDS SUMMARY | 2024-07-31 06:50 | XMS_ITS ---
Author [facility] Address [address] [facility] [address] [place] [phone] Care Team Providers Care Family Dentist Name Role Phone Chas Barrera Primary Care Provider [phone] DanielCharlene brooks Unavailable [phone] Allergies No Known Allergies Results Component Value [...] mouth once daily; Duration: 90 Active Nystatin 778506 UNIT/ML 5 mL Mouth/Throa t Three times [...] Risk Notes Problem Colostomy and enterostomy malfunction (722129004) Colostomy complication (K94.00) Active confirmed Vital Signs Blood pressure systolic 110 mm Hg 08/01/19 25 Blood pressure diastolic 52 mm Hg 025 Heart Rate 80 /min 07/31/2024 Height 58 in 07/31/2024 Weight 115.2 lbs 07/31/2024 BMI 24.07 kg/m2 07/31/2024 Encounters Encounter Location Date Provider Diagnosis [facility] [address] [facility] [address] [place] [address] [place] [phone] 07/31/2024 Charlene Benoit Lower extremity corky a [...] Notes * MILTON QUEENIEDOB:1945 (79 yo F)Acc No.[id number]:07/31/2024 Progress Notes Patient: QUEENIE CANNON Provider: MARVA Dang :1945 A ge:79 Y S ex:Female Date:07/31/2024 Address:[address] [place] [address], [facility] [id number] Pcp:Chas Barrera Subjective: * Chief Complaints: * [...] Subcutaneous every 6 months , Taking Nystatin 656593 UNIT/ML Suspension 5 mL Mouth/Throat Three times [...] G 2211 Complex e/[place], [address] CAPILLARY BLOOD DRAW, 17503 CBC WITH AUTO DIFF * Follow Up: v ia phone * Images: Billing Information: * Visit Code: 98939 Office Visit, Est Pt., Level 4. * Procedure Codes: G2211 Complex e/[place]. [address] CAPILLARY BLOOD DRAW. 79521 CBC WITH AUTO DIFF. * Electronic signature of MARVA Elizalde on 12/05/2024 at 02:59 PM EDT Sign off status: Pending * Provider: MARVA Dang Date: 0 07/31/2024 Generated for Bassem plascencia/Makeda/eTransmitting on: 0 12/05/2024 02:59 PM EDT History and Physical Notes * [...]
--- OUTSIDE RECORDS SUMMARY | 2024-07-31 06:50 | XMS_ITS ---
Author Organization [facility] Address [address] [facility] [address] [place] [phone] Care Team Providers Care Digital Content Specialist Name Role Phone Chas Barrera Primary Care Provider [phone] DanielCharlene brooks Unavailable [phone] Allergies No Known Allergies Results Component Value [...] mouth once daily; Duration: 90 Active Nystatin 075822 UNIT/ML 5 mL Mouth/Throa t Three times [...] Risk Notes Problem Colostomy and enterostomy malfunction (082928769) Colostomy complication (K94.00) Active confirmed Vital Signs Weight 115.2 lbs 07/31/2024 Blood pressure systolic 110 mm Hg 08/01/19 25 Blood pressure diastolic 52 mm Hg 025 Heart Rate 80 /min 07/31/2024 Height 58 in 07/31/2024 BMI 24.07 kg/m2 07/31/2024 Encounters Encounter Location Date Provider Diagnosis [facility] [address] [facility] [address] [place] [address] [place] [phone] 07/31/2024 Charlene Benoit Lower extremity corky a [...] Notes * MILTON QUEENIEDOB:1945 (79 yo F)Acc No.[id number]:07/31/2024 Progress Notes Patient: QUEENIE CANNON Provider: MARVA aDng :1945 A ge:79 Y S ex:Female Date:07/31/2024 Address:[address] [place] [address], [facility] [id number] Pcp:Chas Barrera Subjective: * Chief Complaints: * [...] Subcutaneous every 6 months , Taking Nystatin 438348 UNIT/ML Suspension 5 mL Mouth/Throat Three times [...] G 2211 Complex e/[place], [address] CAPILLARY BLOOD DRAW, 92461 CBC WITH AUTO DIFF * Follow Up: v ia phone * Images: Billing Information: * Visit Code: 69992 Office Visit, Est Pt., Level 4. * Procedure Codes: G2211 Complex e/[place]. [address] CAPILLARY BLOOD DRAW. 58136 CBC WITH AUTO DIFF. * Electronic signature of MARVA Elizalde on 12/06/2024 at 12:55 PM EDT Sign off status: Pending * Provider: MARVA Dang Date: 0 07/31/2024 Generated for Bassem plascencia/Makeda/eTcynthiasmitting on: 0 12/06/2024 12:55 PM EDT History and Physical Notes * [...]
--- OUTSIDE RECORDS SUMMARY | 2024-10-23 09:35 | XMS_ITS | Encounter Summary ---
Author Organization [facility] Address [facility] [place] [address] Care Team Providers Care Herbarium Worker Name Role Phone Unavailable Primary Care Provider Unavailabl e Encounter Details Date Type Department Care Team (Latest Contact Info) Description 10/23/2024 9:35 AM EDT - 10/23/2024 11:59 PM EDT Hospital Encounter EDG PRE-ADMIT TESTING [facility] [place] [address] Colostomy status (HCC) (Primary Dx); Hypertension, unspecified type; Preop testing Discharge Disposition: Home or Self Care Anesthesia Record Procedure Summary Procedure Name Responsible Anesthesiologist Anesthesia Start Time Anesthesia Stop Time DAVINCI ROBOTIC REVERSAL GRECIA POUCH Christal Owens MD 11/07/24 0733 11/07/24 1204 Events Date Time Event Comment 11/07/2024 0657 0721 AN Equip Check 0733 An Start 0733 An Start Data 0733 Immediate Pre Anesthetic Ass es 0740 An Induction 0743 An Intubation 0748 Quick Note Orogastric tube to low intermittent suction 0749 Anesthesia Ready 0810 Time out 0812 Incision 0850 Insufflation 1119 Exsufflation 1145 An Emergence 1151 An Extubation 1151 an stop data 1204 Handoff I completed my SBAR handoff to [...] acknowledgement of understanding from the receiving PACU/ICU steamblaster 1204 An Stop Meds * Agents No agents on file. * Blood No blood administrations on file. Lines, Drains, and Airways Type Details Placement Removal Peripheral IV 11/07/24; 0559; 20; Right; Forearm; m jasmin rn; 1; 11/11/24; 1245; Therapy completed; Catheter intact, Dressing applied, No Complications 11/07/24 0559 by Adwoa Palacio RN 11/11/24 1245 by Fariba Easton, AMADOR Colostomy LLQ 11/07/24 0628 by 11/07/2411 07 by Triston Cisneros RN Airway Device: ETT- Cuffed; Size: 7 mm; Placement Date: 11/07/24; Placement Time: 07 (created via procedure documentation); Removal Date: 11/07/24; Removal Time: 1151 11/07/24 0743 by Cale Steen CRNA 11/07/24 1151 by Cale Steen CRNA Urethral Catheter ([place]h) Placement Date: 11/07/24; Placement Time: 0802; Inserted By: Amelia ENGLISH; Type: Latex; Balloon Size: 10 ml; Collection Container: Urimeter; Securement Method: Securing device (Describe); Urine Returned: Yes; Location: OR; Silver-Coated Catheter In Use?: Yes; ELIZA Intact?: Yes; Removal Date: 11/08/24; Removal Time: 0911/07/24 0802 by Triston Cisneros RN 11/08/24 0918 by Elsie Nichols RN Incision/Wound 11/07/24; 0812; No; Closed Surgical; Abdomen; Left; 11/11/24; 172611/07/24 0812 by Triston Cisneros RN 11/11/24 1727 by Discharge Provider, Automatic Incision/Wound 11/07/24; 0830; No; Closed Surgical; Abdomen; Trocar site x 3; 11/11/24; 1727 11/07/24 0830 by Triston Cisneros RN 11/11/24 1727 by Discharge Provider, Automatic Closed/Suction Drain 11/07/24; 1127; Rig ht; Abdomen; Other (Comment) ([place]); 19 Kiswahili 11/07/24 1127 by Triston Cisneros RN 11/11/24 1307 by Fariba Easton RN documented in this encounter Social History Tobacco Use Types Packs/Day Years Used Date Smoking Tobacco: Never Smokeless Tobacco: Never Alcohol Use Standard Drinks/Week Comments Not Currently 0 (1 standard drink = 0.6 oz pur e alcohol) Comments No Sex and Gender Information Value Date Recorded Sex Assigned at Not on file Legal Sex Female 3:37 PM EDT Gender Identity Not on file Sexual Orientation Not on file documented as of this encounter Last Filed Vital Signs Vital Sign Reading Time Taken Comments Blood Pressure 152/77 10/23/2024 10:15 AM EDT Pulse 70 10/23/2024 10:15 AM EDT Temperature 36.6 C (97.9 F) 10/23/2024 10:15 AM EDT Respiratory Rate 16 10/23/2024 10:15 AM EDT Oxygen Saturation 98% 10/23/2024 10:15 AM EDT Inhaled Oxygen Concentration - - Weight 52.4 kg (115 lb 9.6 oz) 10/23/2024 9:59 A M EDT Height 149.9 cm (4' 11 ) 10/23/2024 9:59 AM EDT Body Mass Index 23.35 10/23/2024 9:59 AM EDT documented in this encounter Discharge Instructions * Discharge Instructions* Freya Thakkar RN - 10/23/2024 10:26 AM EDT Images from the original note were not included. PREPARING FOR YOUR SURGERY Date of Surgery: 11/07 Arrival time: Your surgeon may have already provided this, check your paperwork from the office. Ifnot received, call your surgeon's office. Location: [facility] Medications on the Day of Surgery Take the following medications on the morning of surgery: Coreg and Nifedipine Medications to hold prior to surgery; Verify with your doctor for possibly discontinuing the following medications: blood thinners, aspirin, or anti-inflammatories. Stop taking all supplements 7 days prior to your surgery. Food, Drinks, Tobacco Do not eat any food after midnight. This includes gum, mints, candy, chewing tobacco, and dip. Unless otherwise instructed by your surgeon, you may consume water, Gatorade, Powerade, black coffee/tea(no milk, no cream/creamers, no sugar) up to two hours prior to your scheduled arrival time. No exceptions or substitutions to these restrictions. Do not smoke, vape, or use any type of tobacco or marijuana products within 24 hours prior to surgery. Smoking will also slow your rate of healing. It is advised that you do not smoke during the healing process. No alcohol 24 hours prior to surgery. General: NIGHT BEFORE SURGERY: Follow the instructions given to you by your surgeon's office regarding drinking Ensure before midnight the night before surgery. DAY OF SURGERY: Drink one bottle of Powerade (Powerade Zero for diabetics) the morning of surgery. You should finish drinking 2 hours before your scheduled arrival time. You cannot have anything to drink after this point. Touring Production Manager It is important to have a Touring Production Manager, someone who is 18 years or older, to accompany you and remain in the facility for the duration of your surgery. This person should be available for the Perioperative Team, which includes your surgeon, to communicate with before, during and after your surgery. Because you are receiving anesthesia, someone is needed to drive you home and remain with you for at least 24 hours after surgery to make sure you are safe during that time We also recommend that no children be present on the day of surgery. If you have a concern, please reach out to our department [phone]. Hygiene [place] your teeth and gargle the morning of surgery. Shower the morning of surgery or the night before. Do not wear makeup (including eye makeup) lotion, powder, deodorant, perfume, or cologne. Do not shave the operative extremity or near the operative area. Remove nail citizen of [place] prior to surgery. This includes artificial nails and gel nail citizen [place]. Personal Items Wear clean, simple, loose-fitting clothing (no jeans) and sturdy shoes (no flip flops, slides or crocs) to the hospital. Do not bring unnecessary valuables with you. It is policy that [facility] does not assume responsibility for lost, stolen or broken personal items that are brought in. Exceptions may be consideredfor items which are considered necessary for your healthcare. These items will be formally documented. Remove all jewelry prior to surgery to prevent injury. We will not tape wedding rings/bands If you have dentures, they may need to be removed before going into the operating room. We will have a case for them. Glasses and contacts will need to be removed prior to surgery. Please bring a case for them.. If you have hearing aids, please wear them to the hospital and bring a case. Bring with You Bring a copy of your Living Will and/or Durable Power of Aids Nurse for Healthcare. Notify the Surgeon Notify your surgeon if you develop any illness (fever, cold, cough, sore throat, nausea, vomiting, skin rashes etc.) between now and surgery time Notify your surgeon and Pre-admission testing ([phone]) if you have any changes in your healthconditions or if any new medications are ordered between now and surgery.. Questions or Concerns? If you have any questions or concerns, feel free to call the Pre-Admission testing department at [phone]. We want to make sure you feel safe and have an excellent experience while you are here. Do not reply to this message through [employer] as it may not be answered promptly. Same Day Surgery Unit - [facility] at [phone]; [facility]: Patient Entrance 3A, stop at check-in desk. [address] [place] [id number]. Please do not reply to this message. Please call Pre-admission testing [phone] with questions. DOORS OPEN AT 5:00 AM MON-MON AND 6:00 DANIELITO MONDAY AND 6:30 AM ON MONDAY documented in this encounter Medications at Time of Discharge acetaminophen (TYLENOL) 500 mg Oral Tablet Take 2 Tablets by mouth every 6 hours. 40 Tablet 11/11/2024 apixaban (ELIQUIS) 5 mg Oral Tablet Take [...] mg by mouth daily (with breakfast). 03/01/2024 Magnesium 200 mg Oral Tablet Take by mouth daily. Multivitamin Cmb No.21-Iron-FA (CENTRUM WOMEN) 18-400 mg-mcg Oral Tablet Take by mouth. NIFEdipine (ADALAT CC) 90 mg Oral Tablet Sustained Release Take 90 mg by mouth. Bojmm-7-PAM-EPA- Fish Oil (FISH OIL) 1,200 (144-216) mg Oral Capsule Take by mouth. oxyCODONE (ROXICODONE) 5 mg Oral Tablet Take 1 Tablet by mouth every 4 hours as needed for Acute Pain > 3 Days Medically Necessary (R52). 20 Tablet 11/11/2024 12:18 PM EDT 11/11/2024 Vitamin D3-Menaquinone 7 25 mcg (1,000 unit)-90 mcg Oral Tablet, Rapid Dissolve Dissolve by mouth daily. acetaminophen (TYLENOL) 500 mg Oral Tablet Take 500 mg by mouth every 6 hours. 03/28/2024 5 metroNIDAZOLE (FLAGYL) 500 mg Oral TabletIndication s:Colostomy status (HCC) 2 tablets by mouth at 2 pm, 3 pm, and 7 pm the day before surgery. 6 Tablet 10/08/2024 5 neomycin (MYCIFRADIN) 500 mg Oral TabletIndication s:Colostomy status (HCC) Two tablets by mouth at 2 pm, 3pm, and 7 pm the day before surgery. 6 Tablet 10/08/2024 5 polyethylene glycol (GLYCOLAX) 17 gram/dose Oral PowderIndication s:Uterovaginal prolapse, incomplete Begin Miralax, 17 g (1 capful) PO mixed in your favorite drink once a day beginning 1 week prior to surgery, after surgery drink this twice a day for 2 weeks 595 g 10/10/2024 5 polyethylene glycol (GOLYTELY) 236-22.74-6.74 -5.86 gram Oral Recon SolnIndications: Colostomy status (HCC) At 2 pm on the day prior, drink THE ENTIRE volume. Clear liquids ALL DAY prior. 4000 mL 10/08/2024 documented as of this encounter Discharge Disposition Disposition Code Departure Means Destination Home or Self Care documented in this encounter Plan of Treatment Upcoming Encounters Date Type Department Care Team (Latest Contact Info) Description 01/16/2025 7:30 AM EST Hospital Encounter [facility] [address] [place] [address] Leta Dupont MD [address] [place] [address] 01/16/2025 7:30 AM EST - 01/16/2025 9:05 AM EST Surgery [facility] [address] [place] [address] Leta Dupont MD [address] [place] [address] LEF[place] COLPOCLEISIS 02/26/2025 9:00 AM EST Office Visit [facility] [address] [id number] Antonina Ji PA-C [address] [place] [address] Scheduled Procedures Name Priority Associated Diagnoses Date/Ti me LEFORT COLPOCLEISIS Uterovaginal prolapse, incomplete 01/16/2025 7:30 AM EST POSTERIOR REPAIR (RECTOCELE REPAIR) Uterovaginal prolapse, incomplete 01/16/2025 7:30 AM EST LEVATOR PLICATION Uterovaginal prolapse, incomplete 01/16/2025 7:30 AM EST CYSTOSCOPY Uterovaginal prolapse, incomplete 01/16/2025 7:30 AM EST documented as of this encounter Goals Goal Patient Goal Type Associated Problems Recent Progress Patient-Stated? Author Autogenera sherice Goal Care Plan Autogenerated Problem No Aisha Price, Clerical Staff documented as of this encounter Procedures Procedure Name Priority Date/Time Associated Diagnosis Comments BB HISTORY CHECK Routine 10/23/2024 11:0 5 AM EDT Colostomy status (HCC) Preop testing SURGERY DATE Routine 10/23/2024 11:05 AM EDT Colostomy status (HCC) Preop testing PREADMISSION TYPE AND SCREEN Routine 10/23/2024 11:05 AM EDT Colostomy status (HCC) Preop testing ABORH Routine 10/23/2024 11:05 AM EDT Colostomy status (HCC) Preop testing CBC WITH DIFF Routine 10/23/2024 11:05 AM EDT Preop testing Colostomy status (HCC) ANTIBODY SCREEN IGG Routine 10/23/2024 1 1:05 AM EDT Colostomy status (HCC) Preop testing documented in this encounter Results * BB HISTORY CHECK (10/23/2024 11:05 AM EDT) BB HISTORY CHECK (1) No Previous History 10/23/2024 11:38 AM EDT [facility] BLOOD BANK Blood VENOUS BLOOD / Unknown Venipuncture / Unknown 10/23/2024 11:05 AM EDT 10/23/2024 11:11 AM EDT [employer] BLOOD B[facility] ORDERABLES Final Re sult Performing Organization Address [facility] de Phone Number [facility] BLOOD [address] [address] * SURGERY DATE (10/23/2024 11:05 AM EDT) Surgery Date (1) Complete 10/23/2024 11:45 AM EDT [facility]LOOD [facility] Blood VENOUS BLOOD / Unknown Venipuncture / Unknown 10/23/2024 11:05 AM EDT 10/23/2024 11:11 AM EDT [employer]TENSION EDUCATOR BLOOD BANK ORDERABLES Final Re sult Performing Organization Address City/[facility]/ZIP Co de Phone Number [facility] BLOOD BANK [address] [place] [address] * ANTIBODY SCREEN IGG (10/23/2024 11:05 AM EDT) Pathologist [facility] ABSC IgG Int Negative 10/23/2024 1:02 PM EDT [facility]LOOD B[facility] Blood VENOUS BLOOD / Unknown Venipuncture / Unknown 10/23/2024 11:05 AM EDT 10/23/2024 11:11 AM EDT [employer] NAT[employer] RESOURCES EXTENSION EDUCATOR BLOOD BANK ORDERABLES Final Re sult [facility]LOOD B[facility] [address] [place] [address] * ABORH (10/23/2024 11:05 AM EDT) [facility] ABORH Int A POS 10/23/2024 1:0 2 PM EDT [facility]LOOD [facility] Blood VENOUS BLOOD / Unknown Venipuncture / Unknown 10/23/2024 11:05 AM EDT 10/23/2024 11:11 AM EDT [employer] NATURAL RESOURCES EXTENSION EDUCATOR BLOOD BANK ORDERABLES Final Re sult [facility] BLOOD [facility] [address] [place] [address] * (ABNORMAL) CBC WITH DIFF (10/23/2024 11:05 AM EDT) [facility] WBC 6.9 3.7 - 10.3 x10(3)/mcL 10/23/2024 11:37 AM EDT [facility] RBC 3.41(L) 3.90 - 5.20 x10(6)/mcL 10/23/2024 11:37 AM EDT [facility] Hgb 10.7(L) 11.2 - 15.7 g/dL 10/23/2024 11:37 AM EDT [facility] Hct 33.2(L) 34.0 - 45.0 % 10/23/2024 11:37 AM EDT [facility] MCV 97.4 80.0 - 100.0 fL 10/23/2024 11:37 AM EDT [facility] MCH 31.4 26.0 - 34.0 pg 10/23/2024 11:37 AM EDT [facility] MCHC 32.2 30.7 - 35.5 g/dL 10/23/2024 11:37 AM EDT [facility] RDW 13.3 <=14.9 % 10/23/2024 11:37 AM EDT [facility] Platelet 315 155 - 369 x10(3)/mcL 10/23/2024 11:37 AM EDT [facility] MPV 8.0(L) 8.8 - 12.5 fL 10/23/2024 11:37 AM EDT [facility] Neut Percent 56.1 % 10/23/2024 11:37 AM EDT [facility] Comment:Neutrophils equals s egs plus bands Imm Gran% 0.1 % 10/23/2024 11:37 AM EDT [facility] Comment:Automated count of m etamyelocytes, myelocytes and promyelocytes. Lymph Percent 29.4 % 10/23/2024 11:37 AM EDT [facility] Grant Percent 11.5 % 10/23/2024 11:37 AM EDT [facility] Eos Percent 2.3 % 10/23/2024 11:37 AM EDT [facility] Baso Percent 0.6 % 10/23/2024 11:37 AM EDT [facility] Neut # 3.8 1.6 - 6.1 x10(3)/mcL 10/23/2024 11:37 AM EDT [facility] Comment:Neutrophils equals s egs plus bands IMMGRAN# 0.0 0.0 - 0.1 x10(3)/mcL 10/23/2024 11:37 AM EDT [facility] Comment:Automated count of m etamyelocytes, myelocytes and promyelocytes. An absolute IG <0.1 is reported as 0.0. Lymph # 2.0 1.2 - 3.9 x10(3)/mcL 10/23/2024 11:37 AM EDT [facility] [employer] Grant # 0.8 0.3 - 0.9 x10(3)/[facility] 10/23/2024 11:37 AM EDT [facility] Eos# 0.2 0.0 - 0.5 x10(3)/[facility] 10/23/2024 11:37 AM EDT [facility] [employer] Baso # 0.0 0.0 - 0.1 x10(3)/[facility] 10/23/2024 11:37 AM EDT [facility], [facility] Blood VENOUS BLOOD / Unknown Venipuncture / Unknown 10/23/2024 11:05 AM EDT 10/23/2024 11:11 AM EDT [place] [employer] EXTENSION EDUCATOR HEMATOLOGY ORDERABLES Final Re sult [facility] [address] [facility] , [place] [address] documented in this encounter Visit Diagnoses Diagnosis Uterovaginal prolapse, incomplete- Primary Colostomy status (HCC)- Primary Colostomy status Hypertension, unspecified type Preop testing Preoperative examination, unspecified Uterovaginal prolapse, incomplete documented in this encounter Historical Medications * This list may reflect changes made after this encounter. Dlvxk-1-PXC-EPA-F jasmine Oil (FISH OIL) 1,200 (144-216) mg Oral Capsule Take by mouth. Magnesium 200 mg Oral Tablet Take by mouth daily. Vitamin D3-Menaquinone 7 25 mcg (1,000 unit)-90 mcg Oral Tablet, Rapid Dissolve Dissolve by mouth daily. Multivitamin Cmb No.21-Iron-FA (CENTRUM WOMEN) 18-400 mg-mcg Oral Tablet Take by mouth. apixaban (ELIQUIS) 5 mg Oral Tablet Take by mouth 2 times daily. added in this encounter Additional Health Concerns Active Problems Noted Date Diagnosed Date Autogenerated Problem 10/10/2024 documented as of this encounter
--- OUTSIDE RECORDS SUMMARY | 2024-10-23 09:35 | XMS_ITS | Encounter Summary ---
Author Organization [facility] Address [facility] [place] [address] Care Team Providers Care Candy Maker Name Role Phone Unavailable Primary Care Provider Unavailabl e Encounter Details Date Type Department Care Team (Latest Contact Info) Description 10/23/2024 9:35 AM EDT - 10/23/2024 11:59 PM EDT Hospital Encounter EDG PRE-ADMIT TESTING [facility] [place] [address] Colostomy status (HCC) (Primary Dx); Hypertension, [...] of understanding from the receiving PACU/ICU steam gigger 1204 An Stop Meds * Agents No [...] Rig ht; Abdomen; Other (Comment) ([place]); 19 Slov[place] 11/07/24 1127 by Triston Cisneros RN 11/11/24 [...] Ifnot received, call your surgeon's office. Location: [place] Medications on the Day of Surgery Take [...] have anything to drink after this point. Schedule Maker It is important to have a Schedule Maker, someone who is 18 years or older, [...] concern, please reach out to our department [phone]. Hygiene [place] your teeth and gargle the morning of surgery. Shower the morning of surgery or the night before. Do not wear makeup (including eye makeup) lotion, powder, deodorant, perfume, or cologne. Do not shave the operative extremity or near the operative area. Remove nail tuvaluan prior to surgery. This includes artificial nails and gel nail tuvaluan. Personal Items Wear clean, simple, loose-fitting clothing (no jeans) and sturdy shoes (no flip flops, slides or crocs) to the hospital. Do not bring unnecessary valuables with you. It is policy that [facility] does not assume responsibility for lost, stolen [...] your Living Will and/or Durable Power of Broadcast Traffic Coordinator for Healthcare. Notify the Surgeon Notify your surgeon if you develop any illness (fever, cold, cough, sore throat, nausea, vomiting, skin rashes etc.) between now and surgery time Notify your surgeon and Pre-admission testing ([phone]) if you have any changes in your healthconditions or if any new medications are ordered between now and surgery.. Questions or Concerns? If you have any questions or concerns, feel free to call the Pre-Admission testing department at [phone]. We want to make sure you feel safe and have an excellent experience while you are here. Do not reply to this message through [employer] as it may not be answered promptly. Same Day [facility] - [place] at [phone]; [place] [facility]: Patient Entrance 3A, stop at check-in desk. [address] [place] [phone]. Please do not reply to this message. Please call Pre-admission testing [phone] with questions. DOORS OPEN AT 5:00 AM [...] Sustained Release Take 90 mg by mouth. Mswyc-0-ICP-EPA- Fish Oil (FISH OIL) 1,200 (144-216) mg [...] Encounter [facility] PERIOP [address] [place] [address] Leta Dupont MD [address] [place] [address] 01/16/2025 7:30 AM EST - 01/16/2025 9:05 AM EST Surgery [facility]TT PERIOP [address] [place] [address] Leta Dupont MD [address] [place] [address] [place] COLPOCLEISIS 02/26/2025 9:00 AM EST Office Visit [facility] Urogynecology [address] [id number] Antonina Ji PA-C [address] [place] [address] Scheduled Procedures Name Priority Associated [...] No Previous History 10/23/2024 11:38 AM EDT [facility] BLOOD BANK Blood VENOUS BLOOD / Unknown Venipuncture / Unknown 10/23/2024 11:05 AM EDT 10/23/2024 11:11 AM EDT uma information technologyN BLOOD BANK ORDERABLES Final Re sult Performing Organization Address [facility] de Phone Number [facility] BLOOD [address] [address] * SURGERY DATE (10/23/2024 11:05 AM EDT) Surgery Date (1) Complete 10/23/2024 11:45 AM EDT [facility] BLOOD BANK Blood VENOUS BLOOD / Unknown Venipuncture / Unknown 10/23/2024 11:05 AM EDT 10/23/2024 11:11 AM EDT [employer] K[employer] PRESS SETTER BLOOD BANK ORDERABLES Final Re sult Performing Organization Address City/[facility]/ZIP Co de Phone Number [facility] BLOOD BANK [address] [place] [address] * ANTIBODY SCREEN IGG (10/23/2024 11:05 AM EDT) Pathologist [facility] ABSC IgG Int Negative 10/23/2024 1:02 PM EDT [facility] BLOOD BANK Blood VENOUS BLOOD / Unknown Venipuncture / Unknown 10/23/2024 11:05 AM EDT 10/23/2024 11:11 AM EDT [employer] KICK PRESS SETTER BLOOD BANK ORDERABLES Final Re sult [facility] BLOOD BANK [address] [place] [address] * ABORH (10/23/2024 11:05 AM EDT) [facility] ABORH Int A POS 10/23/2024 1:0 2 PM EDT [facility] BLOOD BANK Blood VENOUS BLOOD / Unknown Venipuncture / Unknown 10/23/2024 11:05 AM EDT 10/23/2024 11:11 AM EDT [employer] KICK PRESS SETTER BLOOD BANK ORDERABLES Final Re sult [facility] BLOOD [facility] [address] [place] [address] * (ABNORMAL) CBC WITH DIFF (10/23/2024 11:05 AM EDT) [facility] WBC 6.9 3.7 - 10.3 x10(3)/mcL 10/23/2024 11:37 AM EDT [facility] RBC 3.41(L) 3.90 - 5.20 x10(6)/mcL 10/23/2024 11:37 AM EDT [facility] Hgb 10.7(L) 11.2 - 15.7 g/dL 10/23/2024 11:37 AM EDT [facility] Hct 33.2(L) 34.0 - 45.0 % 10/23/2024 11:37 AM EDT [facility] MCV 97.4 80.0 - 100.0 fL 10/23/2024 11:37 AM EDT [facility] MCH 31.4 26.0 - 34.0 pg 10/23/2024 11:37 AM EDT [facility] MCHC 32.2 30.7 - 35.5 g/dL 10/23/2024 11:37 AM EDT [facility] RDW 13.3 <=14.9 % 10/23/2024 11:37 AM EDT [facility] Platelet 315 155 - 369 x10(3)/mcL 10/23/2024 11:37 AM EDT [facility] MPV 8.0(L) 8.8 - 12.5 fL 10/23/2024 11:37 AM EDT [facility] Neut Percent 56.1 % 10/23/2024 11:37 AM EDT [facility] Comment:Neutrophils equals s egs plus bands Imm Gran% 0.1 % 10/23/2024 11:37 AM EDT [facility] Comment:Automated count of m etamyelocytes, myelocytes and promyelocytes. Lymph Percent 29.4 % 10/23/2024 11:37 AM EDT [facility] [place] Percent 11.5 % 10/23/2024 11:37 AM EDT [facility] Eos Percent 2.3 % 10/23/2024 11:37 AM EDT [facility] Baso Percent 0.6 % 10/23/2024 11:37 AM EDT [facility] Neut # 3.8 1.6 - 6.1 x10(3)/mcL 10/23/2024 11:37 AM EDT [facility] Comment:Neutrophils equals s egs plus bands IMMGRAN# 0.0 0.0 - 0.1 x10(3)/mcL 10/23/2024 11:37 AM EDT [facility] Comment:Automated count of m etamyelocytes, myelocytes and promyelocytes. An absolute IG <0.1 is reported as 0.0. Lymph # 2.0 1.2 - 3.9 x10(3)/mcL 10/23/2024 11:37 AM EDT [facility] [employer] [place] # 0.8 0.3 - 0.9 x10(3)/[facility] 10/23/2024 11:37 AM EDT [facility] Eos# 0.2 0.0 - 0.5 x10(3)/[facility] 10/23/2024 11:37 AM EDT [facility] Baso # 0.0 0.0 - 0.1 x10(3)/[facility] 10/23/2024 11:37 AM EDT [facility] [employer] Blood VENOUS BLOOD / Unknown Venipuncture / Unknown 10/23/2024 11:05 AM EDT 10/23/2024 11:11 AM EDT [place] KICK PRESS SETTER HEMATOLOGY ORDERABLES Final Re sult [facility] [address] [facility] , [place] [address] documented in this encounter Visit Diagnoses Diagnosis Uterovaginal prolapse, incomplete- Primary Colostomy status (HCC)- Primary Colostomy status Hypertension, unspecified type Preop testing Preoperative examination, unspecified Uterovaginal prolapse, incomplete documented in this encounter Historical Medications * This list may reflect changes made after this encounter. Yaqib-5-WBD-EPA-F jasmine Oil (FISH OIL) 1,200 (144-216) mg [...]
--- OUTSIDE RECORDS SUMMARY | 2024-10-23 12:30 | XMS_ITS ---
[facility] Address [address] [place] [id number] Care Team Providers Care Naphtha Washing System Operator Name Role Phone Chas Barrera Primary Care Provider [phone] Charlene Benoit Unavailable [phone] Allergies No Known Allergies REASON FOR VISIT [...] mouth once daily; Duration: 90 Active Nystatin 639727 UNIT/ML 5 mL Mouth/Throa t Three times [...] 10/23/2024 Encounters Encounter Location Date Provider Diagnosis [facility] [address] [place], [place] [id number] 10/23/2024 Charlene Benoit Preop general physic al exam Z01.818 and BMI 23.0-23.9, adult Z68.23 Assessments Encounter Date Diagnosis (ICD Code) Assessment Notes Treatment Notes Treatment Clinical Notes Section Notes 10/23/2024 Preop general physical exam (ICD-10 - Z01.818) 10/23/2024 BMI 23.0-23.9, adult (ICD-10 - Z68.23) Plan Of Treatment Next Appt Details Follow Up: prn, Reason: Progress Notes * QUEENIE ROSEDOB:1945 (79 yo F)Acc No.[id number]:10/23/2024 Physical Patient: QUEENIE CANNON Provider: MARVA Dang :1945 A ge:79 Y S ex:Female Date:10/23/2024 Address:[address] [place] [address], [place], [id number] Pcp:Chas Barrera Subjective: * Chief Complaints: * [...] Subcutaneous every 6 months , Taking Nystatin 114159 UNIT/ML Suspension 5 mL Mouth/Throat Three times [...] exam - Z01.818 (Primary) 2 . B MS 23.0-23.9, adult - Z68.23 Plan: * Treatment: * Procedure Codes: G 2211 Complex e/m visit add on, 1036F TOBACCO NON-USER, G8420 BMI<30 AND >=22 CALC & DOCU, G8783 BP SCR PRFRM RCMDD DEFIND SCR INTVL, G8752 MOST RECENT SYSTOLIC BP < 140MM HG, G8754 MOST RECENT DIASTOLIC BP < 90MM HG * Follow Up: p rn * Images: Billing Information: * Visit Code: 96261 Office Visit, Est Pt., Level 4. * Procedure Codes: G2211 Complex e/m visit add on. 1036F TOBACCO NON-USER. G8420 BMI<30 AND >=22 CALC & DOCU. G8783 BP SCR PRFRM RCMDD DEFIND SCR INTVL. G8752 MOST RECENT SYSTOLIC BP < 140MM HG. G8754 MOST RECENT DIASTOLIC BP < 90MM HG. * Electronic signature of MARVA Elizalde on 12/06/2024 at 12:54 PM EDT Sign off status: Pending * Provider: MARVA Dang Date: 0 10/23/2024 Generated for Bassem plascencia/Makeda/Julianneitting on: 0 12/06/2024 12:54 PM EDT History and Physical Notes * HPI (History of Present Illness) Category Sub-Category Detail Notes Category Not es Adult Pre-Op physical Procedure: Robotic Nii Re versal Date of Procedure: 11/07/24 Name of Surgeon: Dr. Ness Vyas Examination Category Sub-Category Detail Notes Category Not [...]
--- OUTSIDE RECORDS SUMMARY | 2024-10-23 12:30 | XMS_ITS ---
[facility] Address [address] [place] [phone] Care Team Providers Care Brass Molder Helper Name Role Phone Chas Barrera Primary Care Provider [phone] Charlene Benoit Unavailable [phone] Allergies No Known Allergies REASON FOR VISIT [...] mouth once daily; Duration: 90 Active Nystatin 538960 UNIT/ML 5 mL Mouth/Throa t Three times [...] Orally every 6 hrs Active Vital Signs Blood pressure systolic 130 mm Hg 10/24/19 25 Blood pressure diastolic 70 mm Hg 025 Heart Rate 81 /min 10/23/2024 Height 58 in 10/23/2024 Weight 114.8 lbs 10/23/2024 BMI 23.99 kg/m2 10/23/2024 Encounters Encounter Location Date Provider Diagnosis [facility] [address] [place], [place] [phone] 10/23/2024 Charlene Benoit Preop general physic al exam Z01.818 and BMI 23.0-23.9, adult Z68.23 Assessments Encounter Date Diagnosis (ICD Code) Assessment Notes Treatment Notes Treatment Clinical Notes Section Notes 10/23/2024 Preop general physical exam (ICD-10 - Z01.818) 10/23/2024 BMI 23.0-23.9, adult (ICD-10 - Z68.23) Plan Of Treatment Next Appt Details Follow Up: prn, Reason: Progress Notes * QUEENIE ROSEDOB:1945 (79 yo F)Acc No.[id number]:10/23/2024 Physical Patient: QUEENIE CANNON Provider: MARVA Dang :1945 A ge:79 Y S ex:Female Date:10/23/2024 Address:[address] [place] [address], [place], [id number] Pcp:Chas Barrera Subjective: * Chief Complaints: * [...] Subcutaneous every 6 months , Taking Nystatin 003429 UNIT/ML Suspension 5 mL Mouth/Throat Three times [...] exam - Z01.818 (Primary) 2 . B ME 23.0-23.9, adult - Z68.23 Plan: * Treatment: * Procedure Codes: G 2211 Complex e/m visit add on, 1036F TOBACCO NON-USER, G8420 BMI<30 AND >=22 CALC & DOCU, G8783 BP SCR PRFRM RCMDD DEFIND SCR INTVL, G8752 MOST RECENT SYSTOLIC BP < 140MM HG, G8754 MOST RECENT DIASTOLIC BP < 90MM HG * Follow Up: p rn * Images: Billing Information: * Visit Code: 23770 Office Visit, Est Pt., Level 4. * Procedure Codes: G2211 Complex e/m visit add on. 1036F TOBACCO NON-USER. G8420 BMI<30 AND >=22 CALC & DOCU. G8783 BP SCR PRFRM RCMDD DEFIND SCR INTVL. G8752 MOST RECENT SYSTOLIC BP < 140MM HG. G8754 MOST RECENT DIASTOLIC BP < 90MM HG. * Electronic signature of MARVA Elizalde on 12/05/2024 at 02:58 PM EDT Sign off status: Pending * Provider: MARVA Dang Date: 0 10/23/2024 Generated for Bassem plascencia/Makeda/Julianneitting on: 0 12/05/2024 02:58 PM EDT History and Physical Notes * [...]
--- OUTSIDE RECORDS SUMMARY | 2024-10-31 04:45 | XMS_ITS ---
[facility] Organization [facility] Address [address] [facility] [address] [place] [phone] Care Team Providers Care Counseling Services Manager Name Role Phone Chas Barrera Primary Care Provider Charlene Benoit Unavailable [phone] Results Component Value Reference Range Notes CBC [...] 44 Performing Lab: Notes/Report: Test performed by [employer] [address] [place] [address] , [address], [place] [address] Mitchel Dior MD, Straw Hat Presser CLIA: [id number] Sodium 141 135-145 mmol/L Potassium 4.3 3.5-5.3 [...] Interpretation:Normal Performing Lab: Notes/Report: Test performed by [employer] [address] [place] [address] [place] [address] Mitchel Dior MD, Straw Hat Presser CLIA: [id number] Ferritin 75.4 13.0-301.0 ng/mL P-Iron Reviewed date:11/01/2024 05:11:29 PM Interpretation:Normal Performing Lab: Notes/Report: Test performed by [employer] [address] [place] [address] Dr[address] , [place] [id number] Mitchel Dior MD, Straw Hat Presser CLIA: [id number] Iron 44 37-145 ug/dL REASON FOR VISIT Labs Medications Medication SIG (Take, Route, Frequency, Duration) Notes Start Date End Date Status Albuterol Sulfate HFA 108 (90 Base) MCG/ACT 1 puff as needed Inhalation every 4 hrs, prn 02/29/2024 Active Albuterol Sulfate HFA 108 (90 Base) MCG/ACT 1 puff as needed Inhalation every 4 hrs, prn 12/14/2023 Active Nystatin 132196 UNIT/ML 5 mL Mouth/Throa t Three times [...] Active Encounters Encounter Location Date Provider Diagnosis [facility] [address] [place], [place] [id number] 10/31/2024 Charlene Benoit Iron deficiency anem ia [...] Notes * QUEENIE ROSEDOB:1945 (79 yo F)Acc No.[id number]:10/31/2024 Patient: QUEENIE CANNON Provider: MARVA Dang :1945 A ge:79 Y S ex:Female Date:10/31/2024 Address:[address] [place] [address], [place], [id number] Pcp:Chas Barrera Subjective: * Chief Complaints: * [...] Subcutaneous every 6 months , Taking Nystatin 041927 UNIT/ML Suspension 5 mL Mouth/Throat Three times [...] Codes: 8 5025 CBC WITH AUTO DIFF, 74230 VENIPUNCT, ROUTINE* * Images: Billing Information: * Visit Code: * Procedure Codes: 77383 CBC WITH AUTO DIFF. 06036 VENIPUNCT, ROUTINE*. * Electronic signature of MARVA Elizalde on 12/06/2024 at 12:55 PM EDT Sign off status: Pending * Provider: MARVA Dang Date: 0 10/31/2024 Generated for Printi ng/Faxing/eTransmitting on: 0 12/06/2024 12:55 PM EDT
--- OUTSIDE RECORDS SUMMARY | 2024-10-31 04:45 | XMS_ITS ---
Author Organization [facility] Address [address] [facility] [address] [place] [id number] Care Team Providers Care Extras Casting Director Name Role Phone Chas Barrera Primary Care Provider Charlene Benoit Unavailable [phone] Results Component Value Reference Range Notes CBC [...] 44 Performing Lab: Notes/Report: Test performed by [facility] [address] [place] [address] , [address], [place] [address] Mitchel Dior MD, Clinical Nurse Occupational Medicine CLIA: [id number] Sodium 141 135-145 mmol/L Potassium 4.3 3.5-5.3 [...] Interpretation:Normal Performing Lab: Notes/Report: Test performed by [facility] [address] [place] [address] [place] [address] Mitchel Dior MD, Clinical Nurse Occupational Medicine CLIA: [id number] Ferritin 75.4 13.0-301.0 ng/mL P-Iron Reviewed date:11/01/2024 05:11:29 PM Interpretation:Normal Performing Lab: Notes/Report: Test performed by [facility] [address] [place] [address] Dr. [address] , [place] [id number] Mitchel Dior MD, Clinical Nurse Occupational Medicine CLIA: [id number] Iron 44 37-145 ug/dL REASON FOR VISIT Labs Medications Medication SIG (Take, Route, Frequency, Duration) Notes Start Date End Date Status Albuterol Sulfate HFA 108 (90 Base) MCG/ACT 1 puff as needed Inhalation every 4 hrs, prn 02/29/2024 Active Albuterol Sulfate HFA 108 (90 Base) MCG/ACT 1 puff as needed Inhalation every 4 hrs, prn 12/14/2023 Active Nystatin 727908 UNIT/ML 5 mL Mouth/Throa t Three times [...] Active Encounters Encounter Location Date Provider Diagnosis [facility] [address] [place], [place] [phone] 10/31/2024 Charlene Benoit Iron deficiency anem ia [...] Notes * QUEENIE ROSEDOB:1945 (79 yo F)Acc No.[id number]:10/31/2024 Patient: QUEENIE CANNON Provider: MARVA Dang :1945 A ge:79 Y S ex:Female Date:10/31/2024 Address:[address] [place] [address], [place], [id number] Pcp:Chas Barrera Subjective: * Chief Complaints: * [...] Subcutaneous every 6 months , Taking Nystatin 679817 UNIT/ML Suspension 5 mL Mouth/Throat Three times [...] Codes: 8 5025 CBC WITH AUTO DIFF, 70506 VENIPUNCT, ROUTINE* * Images: Billing Information: * Visit Code: * Procedure Codes: 99768 CBC WITH AUTO DIFF. 52167 VENIPUNCT, ROUTINE*. * Electronic signature of MARVA Elizalde on 12/05/2024 at 03:00 PM EDT Sign off status: Pending * Provider: MARVA Dang Date: 0 10/31/2024 Generated for Printi ng/Faxing/eTransmitting on: 0 12/05/2024 03:00 PM EDT
--- OUTSIDE RECORDS SUMMARY | 2024-10-31 10:30 | XMS_ITS | Encounter Summary ---
Author Organization [facility] [place] [address] Care Team Providers Care Spanish Moss Picker Name Role Phone Unavailable Primary Care Provider Unavailabl e Reason for Visit * Reason Comments Pre-op Exam Robotic sofia rev ersal 11/07/24-Dr. Arzola Encounter Details Date Type Department Care Team (Late st Contact Info) Description 10/31/2024 10:30 AM EDT Office Visit [facility] [address] [facility] [address] [facility] [address] [place] [address] Jennifer Ely, AIRLINE OPERATIONS AGENT [address] [facility] [address] [place], [place] [phone] Encounter for preoperative examination for general surgical procedure (Primary Dx); Colostomy status (HCC); Parastomal hernia without obstruction or gangrene Social History Tobacco Use Types Packs/Day Years [...] Sign Reading Time Taken Comments Blood Pressure 140/78 10/31/2024 10:30 AM EDT Pulse 66 10/31/2024 10:30 AM EDT Temperature 36.5 C (97.7 F) 10/31/2024 10:30 AM EDT Respiratory Rate 12 10/31/2024 10:30 AM EDT Oxygen Saturation - - Inhaled Oxygen Concentration - - Weight 52.4 kg (115 lb 9.6 oz) 10/31/2024 10:30 AM EDT Height 149.9 cm (4' 11 ) 10/31/2024 10:30 AM EDT Body Mass Index 23.35 10/31/2024 10:30 AM EDT documented in this encounter Progress Notes * Jennifer Ely, AIRLINE OPERATIONS AGENT - 10/31/2024 10:30 AM EDT Images from the original note were not included. Colorectal Surgery Pre-op Visit Note CSN:[id number] NAME:Alesha Szymanski :1945 Impression: Sofia Procedure 03/2024 Colostomy status A Fib on Eliquis Surgery to be done: Robotic sofia reversal Date of surgery: 11/07/2024 Plan: I reviewed the risks and benefits of surgery and this procedure Reviewed procedure details Risks discussed included possible open procedure, SSI or dehiscence, injury to the spleen requring repair or splenectomy, injury to the ureter or small bowel, anastomotic leak or abscess requiring IRintervention or subsequent surgery and ostomy, post-operative ileus, VTE, CA, CVA, pneumonia, risk of , risk of bleeding possibly requiring blood transfusion. The purpose of placing stents was discussed with the patient. Patient was reminded of time and arrival to hospital I reviewed pre-op dietary instructions I reviewed expected pre-op bowel prep and pre-op antibiotic prep. Golytely and antibiotic prep scripts confirmed I reviewed expected post-op course Reviewed that after the procedure, patient may initially have several BMs per day which is normal. Possible need for ileostomy and care of ileostomy briefly discussed. All questions were answered. The patient verbalized understanding and states that they wish to proceed with the surgery. Medical clearance: Completed 09/17/2024 HENRIETTA teaching: N/A Anticoagulation: Stop Eliquis 3 days prior to surgery CAPRINI SCORE - 6 points High risk Recommended prophylaxis: Pneumatic compression devices AND low dose heparin OR low molecular weightheparin 1.8% VTE risk 7-10 days total for duration of chemoprophylaxis CC: Discuss surgery History of Present Illness: 79 y.o. female presents to discuss surgery. She is scheduled to undergo a Sofia reversal 11/07/[address] Arzola. March 2024 she had episode of acute [...] never had a colonoscopy ever before in her life. She denies any nausea or vomiting and is having regular bowel function via stoma. She denies any output by her rectum. She was seen by our urogynecology team for pelvic organ prolapse and was sent for referral to see if we can reverse her stomaat the same time as her surgery. After note she does have a history of A- fib and is on Eliquis. In addition to having her stoma she does have a hernia around her stoma as well that bothers her and makes it hard to pouch. The patient asked appropriate questions throughout the visit, all of which were answered to her satisfaction. PSFH: Past 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: Diagnosis Date Essential (primary) hypertension Mixed hyperlipidemia Paroxysmal atrial fibrillation (HCC) Past Surgical History: Procedure Laterality Date APPENDECTOMY 1996 COLON SURGERY 03/13/2024 Current Outpatient Medications on File Prior to Visit Medication Sig Dispense Refill acetaminophen (TYLENOL) 500 mg Oral Tablet Take 500 mg by mouth every 6 hours. apixaban (ELIQUIS) 5 mg Oral Tablet Take by mouth 2 times daily. aspirin 81 mg Oral tablet Take 81 mg by mouth every 24 hours. atorvastatin (LIPITOR) 10 mg Oral Tablet Take 10 mg by mouth daily. carvediloL (COREG) 12.5 mg Oral Tablet Take by mouth 2 times daily (with meals). Denosumab (PROLIA) 60 mg/mL SubQ Syringe Inject 60 mg under the skin Every 6 Months. Magnesium 200 mg Oral Tablet Take by mouth daily. Multivitamin Cmb No.21-Iron-FA (CENTRUM WOMEN) 18-400 mg-mcg Oral Tablet Take by mouth. NIFEdipine (ADALAT CC) 90 mg Oral Tablet Sustained Release Take 90 mg by mouth. Zdmlq-5-HIE-EPA-Fish Oil (FISH OIL) 1,200 (144-216) mg Oral Capsule Take by mouth. Vitamin D3-Menaquinone 7 25 mcg (1,000 unit)-90 mcg Oral Tablet, Rapid Dissolve Dissolve by mouth daily. ferrous sulfate 325 mg (65 mg iron) Oral Tablet, Delayed Release (E.C.) Take 325 mg by mouth daily (with breakfast). (Patient not taking: Reported on 10/31/2024) metroNIDAZOLE (FLAGYL) 500 mg Oral Tablet 2 tablets by mouth at 2 pm, 3 pm, and 7 pm the day beforesurgery. (Patient not taking: Reported on 10/31/2024) 6 Tablet 0 neomycin (MYCIFRADIN) 500 mg Oral Tablet Two tablets by mouth at 2 pm, 3pm, and 7 pm the day beforesurgery. (Patient not taking: Reported on 10/31/2024) 6 Tablet 0 polyethylene glycol (GLYCOLAX) 17 gram/dose Oral Powder Begin Miralax, 17 g (1 capful) PO mixed in your favorite drink once a day beginning 1 week prior to surgery, after surgery drink this twice a day for 2 weeks (Patient not taking: Reported on 10/31/2024) 595 g 0 polyethylene glycol (GOLYTELY) 236-22.74-6.74 -5.86 gram Oral Recon Soln At 2 pm on the day prior, drink THE ENTIRE volume. Clear liquids ALL DAY prior. (Patient not taking: Reported on 10/31/2024) 4000 mL 0 No current facility-administered medications on file prior to visit. No Known Allergies Family History Problem Relation Age of Onset Anesth Problems Neg Hx Social History Socioeconomic History Marital status: Spouse name: Not on file Number of children: Not on file Years of education: Not on file Highest education level: Not on file Occupational History Not on file Tobacco Use Smoking status: Never Smokeless tobacco: Never Vaping Use Vaping status: Never Used Substance and Sexual Activity Alcohol use: Not Currently Drug use: Not Currently Sexual activity: Not on file Other Topics Concern Not on file Social History Narrative Not on file Social Drivers of Health Financial Resource Strain: Not on file Food Insecurity: Not on file Transportation Needs: Not on file Physical Activity: Not on file Stress: Not on file Social Connections: Not on file Intimate Partner Violence: Not on file Housing Stability: Not on file ROS: General: Denies chills or malaise HEENT: Denies change in vision, hearing, smell, or taste. Denies headache. Cardiovascular: Denies chest pain or palpitations Respiratory: Denies SOA or new cough GI: See HPI Neurological: Denies numbness or tingling MSK: Denies new onset joint or back pain Skin: Denies new rash or lesion : Denies difficulty or pain with urination. Denies polyuria. Psych: Denies anxiety or depression More than 10 systems were reviewed, no abnormalities were reported by the patient except for those mentioned above. Vitals: Vitals: 10/31/24 1030 BP: 140/78 Pulse: 66 Resp: 12 Temp: 97.7 ??F (36.5 ??C) Exam: General - comfortable, in no acute distress Eyes - sclerae anicteric ENT - mucus membranes moist Cardiovascular - RRR Respiratory - bilateral symmetric respiratory excursion, lung sounds are clear in all lobes bilaterally without rales or wheezes Musculoskeletal - FROM Skin - warm and dry with normal skin turgor, no peripheral edema Neuro - grossly intact, AAO Psychiatric - appropriate mood and affect GI/Abd - abdomen is soft, nontender, nondistended, no palpable masses, no hepatosplenomegaly, no ascites, no scars, no ventral hernias, no groin nodes, no groin hernias Stoma--red, viable. Brown stool in appliance. Parastomal hernia noted. Labs: Lab Results Component Value Date WBC 6.9 10/23/2024 HGB 10.7 (L) 10/23/2024 HCT 33.2 (L) 10/23/2024 MCV 97.4 10/23/2024 PLT 315 10/23/2024 No results found for: NA , K , CL , CO2 , BUN , LABALBU , CREATININE , CALCIUM , GFRAA , GFRNONAA , GLU No results found for: PT , INR , APTT Imaging Reviewed: Results for orders placed during the hospital encounter of 07/14/25 CT ABDOMEN PELVIS W CONTRAST Narrative CT ABDOMEN AND PELVIS WITH CONTRAST, 09/23/2024 [...] L3 on L4 and L4 on L5. Impression Colostomy in the left anterior pelvic wall along with the 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 No related bowel obstruction. Left abdomen pelvic mesenteric edema of unclear clinical significance. - Note: Radiology results need to be interpreted within a comprehensive clinical context. If you have questions about the radiology report, please contact the office of the ordering clinician. No results found for this or any previous visit. No results found for this or any previous visit. No results found for this or any previous visit. No results found for: CEA No results found for this or any previous visit. No results found for this or any previous visit. 1. The patient indicates understanding of these issues and agrees with the plan. 2. I have reviewed the patient's past medical, family, social history and current medications 3. I reviewed all the relevant labs and imaging Jennifer Ely APRN Colon and rectal surgery [facility] Office phone (EGD): [phone] documented in this encounter Plan of Treatment Upcoming Encounters Date Type Department Care Team (Latest Contact Info) Description 01/16/2025 7:30 AM EST Hospital Encounter [facility] [address] [place] [address] Leta Dupont MD [address] [place] [address] 01/16/2025 7:30 AM EST - 01/16/2025 9:05 AM EST Surgery [facility] [address] [place] [address] Leta Dupont MD [address] [place] [address] LEFORT COLPOCLEISIS 02/26/2025 9:00 AM EST Office Visit [facility] [address] [address] Antonina Ji PA-C [address] [place] [address] Scheduled Procedures Name Priority Associated Diagnoses [...] Visit Diagnoses Diagnosis Uterovaginal prolapse, incomplete- Primary Encounter for preoperative examination for general surgical procedure- Primary Colostomy status (HCC) Colostomy status Parastomal hernia without obstruction or gangrene Hernia of unspecified site of abdominal cavity without mention of obstruction or gangrene Uterovaginal prolapse, incomplete documented in this encounter Additional Health Concerns Active Problems Noted Date Diagnosed Date Autogenerated Problem 10/10/2024 documented as of this encounter
--- OUTSIDE RECORDS SUMMARY | 2024-10-31 10:30 | XMS_ITS | Encounter Summary ---
Author Organization [facility] [place] [address] Care Team Providers Care Death Clearance Coordinator Name Role Phone Unavailable Primary Care Provider Unavailabl e Reason for Visit * Reason Comments Pre-op Exam Robotic sofia rev ersal 11/07/24-Dr. Arzola Encounter Details Date Type Department Care Team (Late st Contact Info) Description 10/31/2024 10:30 AM EDT Office Visit [facility] COLORECTAL [facility]G [address] [facility] [address] [place] [address] Jennifer Ely, PROGRAMMER [address] [facility] [address] [place], [place] [id number] Encounter for preoperative examination for general surgical [...] this encounter Progress Notes * Jennifer Ely, PROGRAMMER - 10/31/2024 10:30 AM EDT Images from the original note were not included. Colorectal Surgery Pre-op Visit Note CSN:[id number] NAME:Alesha Szymanski :1945 Impression: Sofia Procedure 03/2024 [...] subsequent surgery and ostomy, post-operative ileus, VTE, NV, CVA, pneumonia, risk of , risk of [...] Sustained Release Take 90 mg by mouth. Iuruf-7-PWD-EPA-Fish Oil (FISH OIL) 1,200 (144-216) mg Oral [...] Jennifer Ely APRN Colon and rectal surgery [facility] Office phone (EGD): [phone] documented in this encounter Plan of Treatment Upcoming Encounters Date Type Department Care Team (Latest Contact Info) Description 01/16/2025 7:30 AM EST Hospital Encounter [facility] [address] [place] [address] Leta Dupont MD [address] [place] [id number] 01/16/2025 7:30 AM EST - 01/16/2025 9:05 AM EST Surgery [facility] [address] [place] [address] Leta Dupont MD [address] [place] [id number] [facility] COLPOCLEISIS 02/26/2025 9:00 AM EST Office Visit [facility] Urogynecology [address] [address] Antonina Ji PA-C [address] [place] [id number] Scheduled Procedures Name Priority Associated Diagnoses [...]
--- OUTSIDE RECORDS SUMMARY | 2024-11-07 05:28 | XMS_ITS | Encounter Summary ---
Author Organization [place] [address] Care Team Providers Care Drilling Engineering Manager Name Role Phone Chas Barrera Primary Care Provider [phone] Reason for Visit * Auth/Cert/Inpt Specialty Diagnoses / Procedures Referred By Contac t Referred To Contact Diagnoses Colostomy status (HCC) Colostomy status (HCC) [Z93.3] Procedures CT LAPS CLSR NTRSTM LG/SM INT W/RESCJ & ANASTOMOSIS Robotic nii reversal Referral ID Status Reason Start Date Expiration Date Visits Re quested Visits Authorized [id number] 1 1 Encounter Details Date Type Department Care Team (Latest Contact Info) Description 11/07/2024 5:28 AM EDT - 11/11/2024 1:27 PM EDT Hospital Encounter EDG [address] [place] [address] Monica Arzola MD [address] [place] [address] [address] [place] [address] Colostomy status (HCC) Discharge Disposition: Home or Self Care Social History Tobacco Use Types Packs/Day Years Used Date Smoking Tobacco: Never Smokeless Tobacco: Never Alcohol Use Standard Drinks/Week Comments Not Currently 0 (1 standard drink = 0.6 oz pur e alcohol) [facility] Utilities Answer Date Recorded In the past 12 months has e electric, gas, oil, or water company threatened to shut off services in your home? No 11/08/2024 Overall Financial Resource Strain (CARDIA) Answe r Date Recorded How hard is it for you to pa y for the very basics like food, housing, medical care, and heating? Not hard at all 11/08/2024 PHQ-2 Answer Date Recorded PHQ-2 Total Score 0 11/08/2024 [facility] - Occupational Stress Questionnaire Answer Date Recorded Do you feel stress - tense, restless, nervous, or anxious, or unable to sleep at night because your mind is troubled all the time - these days? Not at all 11/08/2024 Exercise Vital Sign Answer Date Recorde d On average, how many days pe r week do you engage in moderate to strenuous exercise (like a brisk walk)? 0 days 11/08/2024 On average, how many minutes do you engage in exercise at this level? 0 min 11/08/2024 Hunger Vital Sign Answer Date Recorded Within the past 12 months, y ou worried that your food would run out before you got the money to buy more. Never true 11/09/19 25 Within the past 12 months, t he food you bought just didn't last and you didn't have money to get more. Never true 11/08/2024 [facility] IP Transportation Answer D ate Recorded In the past 12 months, has l ack of reliable transportation kept you from medical appointments, meetings, work or from getting things needed for daily living? No 11/08/2024 Comments No Sex and Gender Information Value Date Recorded Sex Assigned at Not on file Legal Sex Female 3:37 PM EDT Gender Identity Not on file Sexual Orientation Not on file documented as of this encounter Last Filed Vital Signs Vital Sign Reading Time Taken Comments Blood Pressure 156/56 11/11/2024 8:50 AM EDT Pulse 83 11/11/2024 8:50 AM EDT Temperature 37.3 C (99.2 F) 11/11/2024 8:50 AM EDT PAtient states she has beeen drinking coffee Respiratory Rate 16 11/11/2024 8:50 AM EDT Oxygen Saturation 99% 11/11/2024 8:5 0 AM EDT Inhaled Oxygen Concentration - - Weight 51.1 kg (112 lb 9 oz) 11/07/2024 5:46 AM EDT Height 147.3 cm (4' 10 ) 11/07/2024 5:4 6 AM EDT Body Mass Index 23.53 11/07/2024 5:46 AM EDT documented in this encounter Functional Status * Alcohol Screening Score Answer Date of Assessment Author 0 11/07/2024 2:14 PM EDT Whitney Joyce RN * Drug Screening Score Answer Date of Assessment Author 0 11/07/2024 2:14 PM EDT Whitney Joyce RN * Question Answer Date of Assessment Author How often do you have a drin k containing alcohol? 0 11/07/2024 2:14 PM EDT Whitney Joyce R N How many drinks containing a lcohol do you have on a typical day when you are drinking? 0 11/07/2024 2:14 PM EDT Whitney Joyce R N How often do you have six or more drinks on one occasion? 0 11/07/2024 2:14 PM EDT Stewart Joyce RN AUDIT-C to Determine Rows 4-10 0 11/07/2024 2:14 PM EDT Whitney Joyce RN * Question Answer Date of Assessment Author Little interest or pleasure in doing things 0 11/08/2024 1:08 PM EDT Tatiana Velasquez MSW Feeling down, depressed, or hopeless 0 11/08/2024 1:08 PM EDT Tatiana Velasquez MSW PHQ-2 Total Score 0 11/08/2024 1:08 PM EDT Tatiana Velasquez MSW * PHQ-9 Total Score Answer Date of Assessment Author 0 11/08/2024 1:08 PM EDT Jagdeep Velasquez MSW * PHQ-2 Total Score Answer Date of Assessment Author 0 11/08/2024 1:08 PM EDT Jagdeep Velasquez MSW * Suicide Severity Rating Answer Date of Assessment Author No Risk 11/07/2024 2:15 PM EDT Whitney Joyce RN * [place] Suicide Severity Rating Scale (Q shift for moderate and high) Question Answer Date of Assessment Author 1. In the past month, have y ou wished you were or wished you could go to sleep and not wake up? 0 11/07/2024 2:15 PM EDT Whitney Yost RN 2. In the past month, have y ou actually had any thoughts of killing yourself? (If no, skip to question 6) 0 11/07/2024 2:15 PM EDT Whitney Joyce R N 6. Have you ever done anythi ng, started to do anything, or prepared to do anything to end your life? 0 11/07/2024 2:15 PM EDT Whitney Loyd RN documented as of this encounter Discharge Summaries * Regino Lopez MD - 11/11/2024 11:39 AM EDT [facility] Discharge Summary Patient Name: Alesha Rose : 1945 Admit Date: 11/07/2024 Discharge Date: 11/11/2024 Admitting Physician: Monica Arzola MD Discharge Physician: Regino Lopez MD Reason for Hospitalization: Active Hospital Problems *Colostomy status (HCC) Hospital Course/Significant Findings: Patient underwent reversal of Lamar's with takedown of colostomy. Postoperative hospital course was uneventful. She was started back on her home dose of Eliquis on postoperative day #3. There was suboptimal return of bowel function. She was tolerating a diet with good pain control and ambulating at the time of discharge. Procedures Performed: Robotic reversal of Lamar's Consults: Pending Labs Order Current Status Collection Date and Time ECG AND WAVEFORMS - TELEMETRY Preliminary result 11/07/2024 5:13 PM ECG AND WAVEFORMS - TELEMETRY Preliminary result 11/09/2024 7:49 PM ECG AND WAVEFORMS - TELEMETRY Preliminary result 11/10/2024 7:00 AM ECG AND WAVEFORMS - TELEMETRY Preliminary result 11/10/2024 10:10 PM PATHOLOGY TISSUE REQUEST Preliminary result 11/07/2024 8:23 AM Discharge Exam: Comfortable, awake alert and oriented Abdomen is soft, nontender, nondistended DALILA serosanguineous, minimal Discharge Diagnoses: Colostomy status (HCC) Condition at Discharge: good Disposition: Home Discharge Medications:: Medication List START taking these medications oxyCODONE 5 mg Tab Dose: 5 mg Qty: 20 Tablet Refills: 0 Commonly known as: ROXICODONE 5 mg, Oral, EVERY 4 HOURS PRN CHANGE how you take these medications acetaminophen 500 mg Tab Dose: 1,000 mg Qty: 40 Tablet Refills: 0 Commonly known as: TYLENOL 1,000 mg, Oral, *EVERY 6 HOURS What changed: how much to take CONTINUE taking these medications aspirin 81 mg tablet Dose: 81 mg Refills: 0 atorvastatin 10 mg Tab Dose: 10 mg Refills: 0 Commonly known as: LIPITOR carvediloL 12.5 mg Tab Refills: 0 Commonly known as: COREG CENTRUM WOMEN 18-400 mg-mcg Tab Refills: 0 Generic drug: Multivitamin Cmb No.21-Iron-FA ELIQUIS 5 mg Tab Refills: 0 Generic drug: apixaban Fish OiL 1,200 (144-216) mg Cap Refills: 0 Generic drug: Smjli-4-YDS-EPA-Fish Oil Magnesium 200 mg Tab Refills: 0 NIFEdipine 90 mg Tbsr Dose: 90 mg Refills: 0 Commonly known as: ADALAT CC PROLIA 60 mg/mL Syrg Dose: 60 mg Refills: 0 Generic drug: Denosumab Vitamin D3-Menaquinone 7 25 mcg (1,000 unit)-90 mcg Tbdl Refills: 0 STOP taking these medications metroNIDAZOLE 500 mg Tab Commonly known as: FLAGYL neomycin 500 mg Tab Commonly known as: MYCIFRADIN polyethylene glycol 17 gram/dose Powd Commonly known as: GLYCOLAX polyethylene glycol 236-22.74-6.74 -5.86 gram Solr Commonly known as: GOLYTELY ASK your doctor about these medications ferrous sulfate 325 mg (65 mg iron) Tbec Dose: 325 mg Refills: 0 Where to Get Your Medications These medications were sent to [facility] [address] [place] [address] Hours: Monday-Monday 8:00am - 6:30pm Monday-Monday 9:00am - 5:00pm acetaminophen 500 mg Tab oxyCODONE 5 mg Tab Follow Up: Dr Arzola in 1 week Signed: Regino Lopez MD 11/11/2024 11:39 AM documented in this encounter Discharge Instructions * Discharge Instructions* Fariba Easton RN - 11/11/2024 12:17 PM EDT Discharge instructions -okay to shower. Do not scrub incisions -do not lift more than 5-10 pounds until cleared by surgeon - stay on a low fiber diet for 2 weeks. Avoid the skin of fruits and veggies - Take over the counter miralax or colace if you have NOT had a BM in 48 hours - Do not drive for 1 week or while taking oxycodone -It make take up to month or longer for your bowels to return to normal. you should accept loose stools When to got to the ER - fever above 100.4 -pus or foul drainage from surgery sites -Surgery site become tender, swollen, red and hot to the touch -You have an increase in pain * Attachments The following attachments cannot be sent through Care Everywhere. * How to use an incentive spirometer ([place]) documented in this encounter Medications at Time [...] Sustained Release Take 90 mg by mouth. Vunnk-2-YMV-EPA- Fish Oil (FISH OIL) 1,200 (144-216) mg Oral Capsule Take by mouth. oxyCODONE (ROXICODONE) 5 mg Oral Tablet Take 1 Tablet by mouth every 4 hours as needed for Acute Pain > 3 Days Medically Necessary (R52). 20 Tablet 11/11/2024 12:18 PM EDT 11/11/2024 Vitamin D3-Menaquinone 7 25 mcg (1,000 unit)-90 mcg Oral Tablet, Rapid Dissolve Dissolve by mouth daily. documented as of this encounter Ordered Prescriptions Prescription Sig Dispense Quantity Refills Last Filled Start Date End Date acetaminophen (TYLENOL) 500 mg Oral Tablet Take 2 Tablets by mouth every 6 hours. 40 Tablet 11/11/2024 oxyCODONE (ROXICODONE) 5 mg Oral Tablet Take 1 Tablet by mouth every 4 hours as needed for Acute Pain > 3 Days Medically Necessary (R52). 20 Tablet 11/11/2024 12:18 PM EDT 11/11/2024 documented in this encounter Discharge Disposition Disposition Code Departure Means Destination Comment s Home or Self Skilled Nursing documented in this encounter Progress Notes * Fariba Easton RN - 11/11/2024 1:07 PM EDT Patient IND VSS DALILA removed per order IV removed per order Surgical sites CDI Discharge instructions provided. Discussed follow up appointments, med regimen, surgical site care,lifting restrictions, dressing change education, diet restrictions and signs and symptoms of infection. Patient declines any questions or concerns at this time * Joyce Parker CPhT - 11/11/2024 12:59 PM EDT Discharge Medication Delivery Service DMD critical care technician has delivered the following medications for Alesha Rose: Rx#[id number]:OXYCODONE 5 MG TABLET-5 mg EVERY 4 HOURS PRN Date/Time of Delivery: 11/11/2024 12:59 PM Delivered to: bedside table Please contact DMD critical care technician with any questions. Thanks! Joyce Parker CPhT * Nancy He MD - 11/10/2024 10:51 AM EDT General Surgery Attending Progress Note CSN:[id number] NAME:Alesha Rose :1945 Impression/Plan: POD 3 s/p robotic reversal of lamar's Doing well overall Having flatus no BM Hgb stable Encouraged ambulation Will advance to low residue today Restart home AC Check daily H&H. Not yet ready for DC Subjective: feels well no complaints Vitals: Vitals: 11/10/24 0127 11/10/24 0348 11/10/24 0604 11/10/24 0849 BP: 120/69 BP Location: Right arm Patient Position: Semi Fowlers Pulse: 92 74 81 78 Resp: 16 Temp: 98.1 ??F (36.7 ??C) TempSrc: Oral SpO2: 96% Weight: Height: I/O last 3 completed shifts: In: 1140 [P.O.:1140] Out: 365 [Urine:300; Drains:65] No intake/output data recorded. FULL LIQUID DIET Exam: BP 120/69 (BP Location: Right arm, Patient Position: Semi Fowlers) Pulse 78 Temp 98.1 ??F(36.7 ??C) (Oral) Resp 16 Ht 4' 10 (1.473 m) Wt 112 lb 9 oz (51.1 kg) SpO2 96% BMI 23.53kg/m?? Abdomen- soft, appropriately TTP. Colostomy site with some serous leakage. Otherwise appears well. DALILA serosanguinous Labs: Recent Results (from the past 48 hours) ECG AND WAVEFORMS - TELEMETRY Collection Time: 11/08/24 7:35 PM Result Value Ref Range ECG INTERPRET NSR ECG AND WAVEFORMS - TELEMETRY Collection Time: 11/09/24 5:12 AM Result Value Ref Range ECG INTERPRET Sinus Arrythmia ECG AND WAVEFORMS - TELEMETRY Collection Time: 11/09/24 7:00 AM Result Value Ref Range ECG INTERPRET NSR CBC Collection Time: 11/09/24 9:56 AM Result Value Ref Range WBC 8.5 3.7 - 10.3 x10(3)/mcL RBC 3.53 (L) 3.90 - 5.20 x10(6)/mcL Hgb 11.3 11.2 - 15.7 g/dL Hct 33.9 (L) 34.0 - 45.0 % MCV 96.0 80.0 - 100.0 fL MCH 32.0 26.0 - 34.0 pg MCHC 33.3 30.7 - 35.5 g/dL RDW 13.8 <=14.9 % Platelet 300 155 - 369 x10(3)/mcL MPV 8.4 (L) 8.8 - 12.5 fL BASIC METABOLIC PANEL Collection Time: 11/09/24 9:56 AM Result Value Ref Range Sodium 134 (L) 136 - 145 mmol/L Potassium 3.7 3.5 - 5.0 mmol/L Chloride 99 98 - 107 mmol/L Total CO2 23 22 - 29 mmol/L Anion Gap 12 7 - 16 mmol/L Calcium 9.4 8.8 - 10.4 mg/dL Glucose Lvl 111 (H) 70 - 99 mg/dL BUN 15 8 - 23 mg/dL Creatinine 0.99 0.51 - 1.30 mg/dL eGFR (CKD-EPIcr 2020) 58 (L) >=60 mL/min/1.73 m2 CBC Collection Time: 11/10/24 6:11 AM Result Value Ref Range WBC 7.7 3.7 - 10.3 x10(3)/mcL RBC 3.41 (L) 3.90 - 5.20 x10(6)/mcL Hgb 11.1 (L) 11.2 - 15.7 g/dL Hct 32.7 (L) 34.0 - 45.0 % MCV 95.9 80.0 - 100.0 fL MCH 32.6 26.0 - 34.0 pg MCHC 33.9 30.7 - 35.5 g/dL RDW 13.8 <=14.9 % Platelet 268 155 - 369 x10(3)/mcL MPV 8.4 (L) 8.8 - 12.5 fL Imaging: No results found. Nancy He MD * Emily Angel, AMADOR - 11/09/2024 7:51 PM EDT VSS. Standby assist in room and sexton. Up to chair. Reports gas. No complaints of pain. Abdomen distended. Tolerating diet. No BM this shift. DALILA with output- leaking at site noted. Safety precautions in place. * Nancy He MD - 11/09/2024 10:13 AM EDT General Surgery Attending Progress Note CSN:[id number] NAME:Alesha Rose :1945 Impression/Plan: POD 2 s/p robotic reversal of lamar's Doing well overall Having flatus no BM Awaiting AM labs Encouraged ambulation Will advance to full liquids today Check daily H&H. Not yet ready for DC Subjective: feeling better. Passing some flatus had some gas pains Vitals: Vitals: 11/09/24 0159 11/09/24 0344 11/09/24 0559 11/09/24 0908 BP: (!) 161/68 BP Location: Left arm Patient Position: Sitting Pulse: 73 92 92 85 Resp: 16 Temp: 97.8 ??F (36.6 ??C) TempSrc: Oral SpO2: 97% Weight: Height: I/O last 3 completed shifts: In: 1982.6 [P.O.:1200; I.V.:782.6] Out: 4105 [Urine:4075; Drains:30] I/O this shift: In: - Out: 300 [Urine:300] CLEAR LIQUID DIET Exam: BP (!) 161/68 (BP Location: Left arm, Patient Position: Sitting) Pulse 85 Temp 97.8 ??F (36.6 ??C) (Oral) Resp 16 Ht 4' 10 (1.473 m) Wt 112 lb 9 oz (51.1 kg) SpO2 97% BMI 23.53 kg/m?? Abdomen- soft appropriately TTP slightly distended. Colostomy site dressing saturated with serous fluid DALILA serosanguinous Labs: Recent Results (from the past 48 hours) GLUCOSE METER POC Collection Time: 11/07/24 11:43 AM Result Value Ref Range Glucose Meter POC 162 (H) 70 - 100 mg/dL Sample Type Capillary Patient Status Non-Critical Patient GLUCOSE METER POC Collection Time: 11/07/24 12:05 PM Result Value Ref Range Glucose Meter POC 152 (H) 70 - 100 mg/dL Sample Type Capillary Patient Status Non-Critical Patient ECG AND WAVEFORMS - TELEMETRY Collection Time: 11/07/24 7:05 PM Result Value Ref Range ECG INTERPRET NSR ECG AND WAVEFORMS - TELEMETRY Collection Time: 11/08/24 7:05 AM Result Value Ref Range ECG INTERPRET NSR CBC WITH DIFF Collection Time: 11/08/24 7:14 AM Result Value Ref Range WBC 10.1 3.7 - 10.3 x10(3)/mcL RBC 3.24 (L) 3.90 - 5.20 x10(6)/mcL Hgb 10.3 (L) 11.2 - 15.7 g/dL Hct 31.2 (L) 34.0 - 45.0 % MCV 96.3 80.0 - 100.0 fL MCH 31.8 26.0 - 34.0 pg MCHC 33.0 30.7 - 35.5 g/dL RDW 13.8 <=14.9 % Platelet 257 155 - 369 x10(3)/mcL MPV 8.4 (L) 8.8 - 12.5 fL Neut Percent 70.5 % Imm Gran% 0.3 % Lymph Percent 20.0 % [place] Percent 8.6 % Eos Percent 0.4 % Baso Percent 0.2 % Neut # 7.1 (H) 1.6 - 6.1 x10(3)/mcL IMMGRAN# 0.0 0.0 - 0.1 x10(3)/mcL Lymph # 2.0 1.2 - 3.9 x10(3)/mcL [place] # 0.9 0.3 - 0.9 x10(3)/mcL Eos# 0.0 0.0 - 0.5 x10(3)/mcL Baso # 0.0 0.0 - 0.1 x10(3)/mcL BASIC METABOLIC PANEL Collection Time: 11/08/24 7:14 AM Result Value Ref Range Sodium 131 (L) 136 - 145 mmol/L Potassium 3.7 3.5 - 5.0 mmol/L Chloride 99 98 - 107 mmol/L Total CO2 23 22 - 29 mmol/L Anion Gap 9 7 - 16 mmol/L Calcium 8.8 8.8 - 10.4 mg/dL Glucose Lvl 112 (H) 70 - 99 mg/dL BUN 21 8 - 23 mg/dL Creatinine 1.27 0.51 - 1.30 mg/dL eGFR (CKD-EPIcr 2020) 43 (L) >=60 mL/min/1.73 m2 ECG AND WAVEFORMS - TELEMETRY Collection Time: 11/08/24 7:35 PM Result Value Ref Range ECG INTERPRET NSR ECG AND WAVEFORMS - TELEMETRY Collection Time: 11/09/24 7:00 AM Result Value Ref Range ECG INTERPRET NSR Imaging: No results found. Nacny He MD * Sandra Ponce RN - 11/09/2024 6:20 AM EDT Pt VSS, ambulating w/stand by assist-up to chair and walked in hallway, 1 small bloody BM this shift, voiding urine w/o complication, scheduled tylenol given for pain w/some relief, pt c/o increased gas pain in abdomen-order for antispasmodic obtained and administered w/relief. DALILA w/15mL out-dressing saturated and changed 1x, pt tolerating clears- pt expressed desire for solid food. Safety precautions in place. * Elsie Nichols RN - 11/08/2024 1:24 PM EDT Patient is alert and oriented, VSS, no outstanding findings with assessment. Ambulates with assist of one and a walker without issues. Denied pain throughout shift - scheduled pain medication given. IV fluids discontinued this shift. Perez discontinued this shift - voiding trial. Safety precautionsremain in place. * Tatiana Velasquez MSW - 11/08/2024 1:08 PM EDT 11/08/24 1306 Discharge Planning Evaluation Completed by CC/IDALIA Yes Referral Source Chart review Who you interviewed In person interview with patient Mental Status Alert and oriented Decision Maker Patient Who does pt identify as their caregiver/support person who will be their active partner in the dc planning process Pt reports no caregiver/support person for dc planning process Does patient need sign language interpreter? No Activities of Daily Living Prior to Admission Independent with ADLS;Independent with Homemaking;Independent with mobility DME Used at Home None Patient's Living Arrangments Prior to Admission? Private Residence Alone Support Systems Children Is PCP listed on facesheet correct? Yes Quality of Support System Good Follow Up Assigned To: Referral to Social work not necessary Social Work already completing dc planning assessment Anticipated post-acute care needs Home with OP Follow Up Discussed discharge plans with Patient/Family/Caregiver/Support Person Yes, Discussed with patient Discussed discharge plans with Care Team at [facility] Yes, with nurse in attendance Patient's goals for recovery Return to Prior Level of Functioning Actual Discharge Plan 11/08 IDALIA Initial Assessment/Final Note: chart reviewed. Note pt is alert and oriented X4. IDALIA met with pt at bedside and introduced self and role. Pt states she lives alone in a camper with 3 steps to get inside and no steps p inside to get to the bedroom/bathroom. Pt states [place] located on her daughter Bisi???s property and is within walking distance of Bisi???s house. Pt states no housing or safety concerns. Pt states her PCP is Dr. Jayant Barrera. Note no PCP listed in [facility]. IDALIA called the [facility] and had pt???s PCP updated in [employer]. Pt [facility] [place]. Pt states she can afford all her medications, food, transpo rtation, utilities, and other bills. Pt states she was independent with ADL???s prior to admission.Pt states she did not have any DME prior to admission. Pt states she has never used HH prior to admission. Pt states she normally transports via personal vehicle. Pt states she will transport vi one of her daughters at d/c. Pt states no d/c planning support person as she wishes to update family/friends herself. SDOH screen completed. Note pt identified as a potential d/c this weekend. SW completed d/c round. Pt states her d/c plan is home with family support and outpatient follow up with physicians. Pt states she will have all the help and support she needs for home. Pt confirms she will transport via one of her daughters at d/c and feels safe doing so. Pt states she will notify her daughters of d/c and states no need for SW to call any family/friends. Pt states no d/c needs or preferences. No d/c needs identified. SW/CC available should needs arise. Final Note Referral to SEP Care Management (SEP patients only) No Discharge Round Completed Yes Care Coordination Discharge Ready? Yes Discharge to Home with Family Transportation at Discharge Personal vehicle Confirmed Discharge Transportation Plan? Yes Patient Aware and Agrees with DC Plan Yes Primary Caregiver/Legal Decision Maker aware and agree with Discharge Plan No Did patient request for family to not be notified Yes (Pt states she will notify her daughters of d/c) Does family and/or caregiver verbalize readiness, willingness, and ability to provide or support patient's self-management activities as appropriate? No, patient declined primary caregiver to be contacted MD Aware of Plan Yes RN Notified of Plan Yes * Nova Bauer APRN - 11/08/2024 7:39 AM EDT Colon and Rectal Surgery/General Surgery Postoperative Progress Note CSN:[id number] NAME:Alesha Rose :1945 Impression: S/p POD1 Robotic Nii Reversal Plan: Clear liquid diet until bowel function Remove perez, voiding trial Ambulation/OOB Plan to start oral AC POD3 if H&H stable Daily dressing to old stoma site Incentive Spirometry DVT prophylaxis Drain care Await return of bowel function Patient ready for discharge from a Colorectal Surgery perspective?: No Criteria needed before discharge?: Bowel Function and Toleration of Diet Days before ready for discharge?: 1-3 days Disposition Plan: Home Timeframe for follow up after Discharge.: 2 weeks Subjective: Patient seen and examined. Pertinent Data and Labs Reviewed. Events for the past 24 hrs noted. Pain well controlled Intermittent nausea No vomiting -flatus -BM Vitals: Vitals: 11/08/24 0849 BP: (!) 153/75 Pulse: 80 Resp: 16 Temp: 97.5 ??F (36.4 ??C) SpO2: 93% CLEAR LIQUID DIET Exam: General - resting comfortably in bed, in no acute distress GI/Abdo - soft, non-distended, non-tender, no rebound or guarding, incisional tenderness appropriate Incision/Wound - dressings not saturated, incision C/D/I Drain - DALILA output serosanguinous Labs: WBC: Lab Results Component Value Date WBC 10.1 11/08/2024 Hemoglobin/Hematocrit: Lab Results Component Value Date HGB 10.3 (L) 11/08/2024 HCT 31.2 (L) 11/08/2024 BMP: Lab Results Component Value Date NA 131 (L) 11/08/2024 K 3.7 11/08/2024 CL 99 11/08/2024 CO2 23 11/08/2024 BUN 21 11/08/2024 CREATININE 1.27 11/08/2024 CALCIUM 8.8 11/08/2024 PT/INR: No results found for: PROTIME , INR PTT: No results found for: APTT [APTT Nova Bauer APRN- Colon and rectal surgery [facility] Office phone (EGD): [phone] Cosigned by Monica Arzola MD at 11/08/2024 10:00 AM EDT Associated attestation - Monica Arzola MD - 11/08/2024 10:00 AM EDT I have reviewed the relevant notes, labs and imaging studies. I personally examined the patient andagree with assessment and plan mentioned by our colorectal DARRYL below with following updates: The patient is feeling well but has no flatus yet. VSS. Abdominal exam: Abdomen soft, non tender, incisions clean/dry and intact, DALILA serosang Plan: - clears, wait for return of bowel function before advancing diet - dry dressing changes daily to old stoma site - monitor H/H daily, if stable ok to resume home eliquis on POD#3 - maintain DALILA drain - DVT prophylaxis - Ambulation and incentive spirometry - Analgesics as needed - Patient is not ready for discharge today The findings and plan were discussed with the patient/family Dr. Monica Arzola MD Colon and Rectal Surgeon [facility] Office phone ([place]/ [place]): [phone] * Magalis Chavez RN - 11/08/2024 2:17 AM EDT Resting quietly in bed with eyes closed. Respirations even, unlabored. VSS. Afebrile. IVF infusing without incidence. Denies discomfort. DALILA drain intact. Perez with clear, yellow urine. Bed alarm on.Call comer within reach. Plan of care review. * Elsie Nichols RN - 11/07/2024 3:17 PM EDT Patient is alert and oriented, high bp post op - nurse praticioner notified and iv medication ordered, no outstanding findings with assessment. Skin assessment completed with AMADOR Olson - scattered abrasions and bruising noted. Ambulates with assist of one without issues. Patient complaining if painin L eye - anesthesia called, eye drops ordered. Denied pain otherwise throughout shift - scheduledpain medication given. Safety precautions remain in place documented in this encounter H&P Notes * Valentino Carbajal APRN - 11/07/2024 6:22 AM EDT H&P Update History & Physical Reviewed. History of perforated colon status post colostomy. Here today for: Procedure(s): Robotic nii reversal Pt interviewed and examined. No changes in health. ROS: No cp, sob, fever, cough or recent illness. EXAM: Vitals: 11/07/24 0546 BP: (!) 164/83 Pulse: 60 Resp: 16 Temp: 97.8 ??F (36.6 ??C) SpO2: 99% CV:RRR. LUNGS: CTA BILAT, Resp unlabored. ABD: Soft NDNT, BS+. EXT: No C/C/E EK09/17/2024 sinus rhythm, right bundle branch block (tracing under media section) LABS: 10/23/2024 CBC noted mildly anemic, stable for procedure MEDICATIONS: Eliquis last dose 11/03/2024 NO SIGNIFICANT CHANGES FOUND FROM ABOVE NOTE PCP clearance obtained Valentino Carbajal APRN [facility] Source Note - Jennifer Ely APRN - 10/31/2024 10:30 AM EDT Images from the original note were not included. Colorectal Surgery Pre-op Visit Note CSN:[id number] NAME:Alesha Rose :1945 Impression: Nii Procedure 03/2024 Colostomy status A Fib on Eliquis Surgery to be done: Robotic nii reversal Date of surgery: 11/07/2024 Plan: I reviewed the risks and benefits of surgery and this procedure Reviewed procedure details Risks discussed included possible open procedure, SSI or dehiscence, injury to the spleen requring repair or splenectomy, injury to the ureter or small bowel, anastomotic leak or abscess requiring IRintervention or subsequent surgery and ostomy, post-operative ileus, VTE, NC, CVA, pneumonia, risk of , risk of [...] with the surgery. Medical clearance: Completed 09/17/2024 [facility] teaching: N/A Anticoagulation: Stop Eliquis 3 days prior to surgery CAPRINI SCORE - 6 points High risk Recommended prophylaxis: Pneumatic compression devices AND low dose heparin OR low molecular weightheparin 1.8% VTE risk 7-10 days total for duration of chemoprophylaxis CC: Discuss surgery History of Present Illness: 79 y.o. female presents to discuss surgery. She is scheduled to undergo a Nii reversal 11/07/[address] Arzola. March 2024 [...] Sustained Release Take 90 mg by mouth. Wetui-0-OFU-EPA-Fish Oil (FISH OIL) 1,200 (144-216) mg Oral [...] orders placed during the hospital encounter of 09/23/24 CT ABDOMEN PELVIS W CONTRAST Narrative CT [...] Jennifer Ely APRN Colon and rectal surgery [facility] Office phone ([place]): [phone] documented in this encounter Procedure Notes * Monica Arzola MD - 11/07/2024 12:42 PM EDT [facility] OPERATIVE/PROCEDURE NOTE Alesha Rose November 07, 2024 Body mass index is 23.53 kg/m??. PRE-OP DIAGNOSIS: Colostomy status (HCC) [Z93.3] POST-OP DIAGNOSIS: Colostomy status (HCC) [Z93.3] PROCEDURE(S): Procedure(s): Robotic nii reversal SURGEON(S): Surgeons and Role: * Monica Arzola MD - Primary ANESTHESIA: General SPECIMENS: ID Type Source Tests Collected by Time Destination 1 : Omental tissue Tissue Omentum PATHOLOGY TISSUE REQUEST Monica Arzola MD 11/07/2024 0823 2 : Colostomy Trim Tissue Colostomy Site PATHOLOGY TISSUE REQUEST Monica Arzola MD 11/07/2024 0836 3 : Rectal Stump Tissue Large Intestine, Rectum PATHOLOGY TISSUE REQUEST Monica Arzola MD 11/07/2024 1056 4 : fat necrosis Tissue Abdominal PATHOLOGY TISSUE REQUEST Monica Arzola MD 11/07/2024 1104 5 : Anastamotic rings Tissue Abdominal PATHOLOGY TISSUE REQUEST Monica Arzola MD 11/07/2024 1107 ESTIMATED BLOOD LOSS (mls): 100 *EBL MUST be documented as a numeric value FINDINGS: Adhesions from prior surgery. White tissue within the abdomen and pelvis consistent with fat necrosis per frozen section. DISPOSITION/POST PROC COURSE: PACU Monica Arzola MD Date: 11/07/2024 * Monica Arzola MD - 11/07/2024 12:31 PM EDT [facility] OPERATIVE/PROCEDURE NOTE ADMIT DATE: 10/08/2024 LOCATION: [facility] MAIN OR OR: [facility] OR12 SURGERY DATE: 11/07/2024 PRE-OP DIAGNOSIS: Colostomy status (HCC) [Z93.3] POST-OP DIAGNOSIS: Colostomy status (HCC) [Z93.3] PROCEDURE(S): Procedure(s): Robotic nii reversal SURGEON: Surgeons and Role: * Monica Arzola MD - Primary ANESTHETIC: General STAFF: Equipment Superintendent: Triston Cisneros RN Physician Real Estate Director: Jennifer Porter PA-C Relief Equipment Superintendent: Radha Kingsley RN Scrub Mcmullen: Joseline Moulton CST Scrub Assist: Tommy Hsu, AMADOR/FA Turn Over Drilling Engineering Manager: Amarilis Munguia RN; Екатерина Allison RN; Carisa Parks HEAD ORTHOPEDIC TEAM PHYSICIAN 2nd Equipment Superintendent: Tommy Hsu RN/FA FINDINGS: White firm small tissue present within the abdomen pelvis scattered within the abdomen. Frozen biopsy sent confirming this was fat necrosis with no signs of malignancy. Scarring within the abdomen pelvis from patient's prior surgery. EBL: * No values recorded between 11/07/2024 7:30 AM and 11/07/2024 11:56 AM * SPEC: ID Type Source Tests Collected by Time Destination 1 : Omental tissue Tissue Omentum PATHOLOGY TISSUE REQUEST Monica Arzola MD 11/07/2024 0823 2 : Colostomy Trim Tissue Colostomy Site PATHOLOGY TISSUE REQUEST Monica Arzola MD 11/07/2024 0836 3 : Rectal Stump Tissue Large Intestine, Rectum PATHOLOGY TISSUE REQUEST Monica Arzola MD 11/07/2024 1056 4 : fat necrosis Tissue Abdominal PATHOLOGY TISSUE REQUEST Monica Arzola MD 11/07/2024 1104 5 : Anastamotic rings Tissue Abdominal PATHOLOGY TISSUE REQUEST Monica Arzola MD 11/07/2024 1107 BMI: Body mass index is 23.53 kg/m??. Procedure detail: Patient was taken to the operating room and placed under appropriate level of anesthesia. They wereprepped and draped in usual sterile fashion and time out was performed. I started off with mobilization of the colostomy. A circumferential incision was made around the colostomy and dissection was carried down to the level of the fascia. Due to patient's known large parastomal hernia this was very difficult and took additional 60 minutes of time just to free up all the loops of colon out of the parastomal hernia and access the fascia. Upon inspection of the colon there was a lot of white firm tissue around the colon itself. This tissue was removed and sent for frozen pathology which confirmed that it was fat necrosis and no signs of malignancy. Some of this tissue was involving the omentum which was also resected and sent for pathology. Once we have adequate access to the fascia circumferentially it was freed up from the surrounding tissue so that a Rancho wound protector could be placed in. The distal end of the colon was trimmed back and removed and sentfor pathology. Using a 2-0 Prolene suture in a pursestring suture was created and the anvil of the EEA 29 stapler was placed in the distal colon and secured. The colon was placed back into the abdomen and pneumoperitoneum was achieved via the Rancho port. Upon inspection there was adhesions within the abdomen and pelvis from patient's prior surgery. Three additional 8 mm ports were placed in a oblique line along with a 5 mm assist point. Under direct visualization bilateral DAX blocks were performed with a combination Exparel and Marcaine and local was applied to the remainder of the ports. The patient was placed in appropriate position and the robot was docked. Extensive lysis adhesions were performed to free up all the loops of small bowel from the pelvis and identify the rectal stump. This was relatively difficult due to patient's prior surgery and scar tissue. Lysis of adhesions took additional 60 minutes of times until the pelvis was identified and the rectal stump could be seen. The rectal stump was densely adherent to the uterus and with the extensive fat necrosis scarring within the pelvis that made the dissection difficult and increased the time by an additional 60 minutes as well. The rectal stump was mobilized to the level of the peritoneal reflection and the peritoneal reflexion was incised. Afterwards under direct visualization a smalland medium sizers were placed within the rectum to see the length and directionality of the rectal stump. There is narrowing at the mid rectum that cannot be passed with the sizers so I made the decision to trim back the rectal stump. The associated mesentery was transected back to the point where the sizers were able to come up easily and the rectal stump was transected with a Sureform 60 green load stapler. Afterwards the rectal stump was tested with a flexible sigmoidoscopy and a air leak test to confirm that there was no injury or tears to the rectum. The colon was assessed and had adequate length to reach the rectal stump. ICG was administered and good blood supply was visualized at both of the colon conduit and the rectal stump. Under direct visualization the EEA 29 stapler was introduced in the anus and brought up to the level of the staple line in the rectum. The spike was opened up and very to the anvil under direct visualization. No tension was appreciated in the anastomosisand the anastomosis was still healthy and green with ICG. The anastomosis was created in a tension-free manner. Afterwards using flexible sigmoidoscopy a air leak test was performed which was negative for any leaks. The anastomosis appeared healthy and patent. The level of the anastomosis was approximately 9-10 cm from anal verge. The abdomen was inspected and no other pathology was identified. A 19 Maori DALILA drain was placed into the pelvis and secured to the right lower quadrant port site. All instruments were removed and all members of the surgical staff changed gloves and gown and switched to clean closure tray. The peritoneum was closed with running 3-0 Vicryl suture and the fascia was closed with #1 PDS barbed stratafix suture in a running fashion. The deep dermis was reapproximated with 0 Vicryl suture in a pursestring fashion to allow for drainage of the old stoma wound. The remainder of the incisions were closed with 4-0 Monocryl suture. Sterile dressings were applied and patient was woken up and taken to PACU in stable condition. Jennifer Porter PA-C helped in retraction, instrument exchange, irrigation, performing preoperativeflexible sigmoidoscopy as well as last incision closure. This is a skilled assistance was required due to the complexity of the case. DISPOSITION/POST PROC COURSE: PACU Dr. Monica Arzola MD Colon and Rectal Surgeon [facility] Office phone ([facility]): [phone] documented in this encounter Nursing Notes * Екатерина Lee RN - 10/31/2024 2:44 PM EDT PA at Primary Office called and said she cannot clear patient until MRI, EEG and labs are complete. EEG and Brain MRI requested from [facility] on 10/31 * Екатерина Lee RN - 10/31/2024 2:40 PM EDT REPORTS REQUEST ATTENTION:Medical Records PATIENT: Alesha Rose : 1945 This patient is scheduled for surgery on 11/07/2024 with Monica Galeana MD Anesthesia has requested the most recent results of the following tests: Most recent EEG and Brain MRI COMMENTS:_Thanks! Please fax to Pre-admission testing. PHONE # [phone] ATTENTION: [address] [id number] documented in this encounter Miscellaneous Notes * Query Response Document - Monica Arzola MD - 11/11/2024 1:27 PM EDT [facility] CDI / HIM Coding Query Documentation PATIENT: ALESHA RSOE : 1945 ADMIT DATE: 11/07/2024 5:28 AM DISCH DATE: 11/11/2024 1:27 PM RESPONDING PROVIDER #: [phone] PROVIDER QUERY RESPONSE TEXT: The Provider disagrees with this query. there was no sigmoid and the colon conduit was from the decending colon which was attached to the rectum CDI / HIM Coding QUERY TEXT: Retrospective Query The purpose of this query is to clarify the significance of clinical indicators noted in the record. To view the encounter for this patient, click the patient's name highlighted in blue. Admitted for Robotic nii reversal on 11/07 Please indicate or document any significant condition treated, monitored, or evaluated: The patient's clinical indicators include: OP Report notes: ICG was administered and good blood supply was visualized at both of the colon conduit and the rectal stump PLEASE ALSO DOCUMENT DIAGNOSIS IN NOTES AND/ OR D/C SUMMARY? ? This electronic query and response are a permanent part of the medical record. Please do not updatethe Problem List as your response. The Problem List is dynamic and is not a permanent part of this Date of Service.? An unanswered query is considered a non-response.? ? Thank you for your assistance.? (For any questions, please contact Pipo Rajan @ [phone]) Options provided: -- Sigmoid colon was attached to the rectal stump -- Ascending colon was attached to the rectal stump -- Descending colon was attached to the rectal stump -- Transverse colon was attached to the rectal stump -- Other - I will add my own diagnosis -- Disagree - Not applicable / Not valid Query created by: Melisa Clark on 11/14/2024 4:31 PM Electronically signed by: Monica Arzola MD 11/14/2024 4:39 PM * Utilization Review Notes - Becki Lorenzo RN - 11/08/2024 11:03 AM EDT ADMIT INPT STATUS SINCE 11/07 FOR INPT PROCEDURE PRE-OP DIAGNOSIS: Colostomy status (HCC) [Z93.3] POST-OP DIAGNOSIS: Colostomy status (HCC) [Z93.3] PROCEDURE(S): Procedure(s): Robotic nii reversal * Plan of Care - Kelly Anguiano MD - 11/07/2024 5:52 PM EDT Patient evaluated at bedside for c/o left eye pain. Reports pain began a few hours ago following her surgery. She reports the pain feels similar to a grain of sand in her eye. She denies vision changes or pressure sensation, and has no prior eye conditions. Her pain is most likely due to a corneal abrasion. Ketoralac eye drops provided in addition to instructions to follow-up with ophthalmology if symptoms fail to improve over the next few days or if vision worsens. KELLY ANGUIANO MD Anesthesiology documented in this encounter Plan of Treatment Upcoming Encounters Date Type Department Care Team (Latest Contact Info) Description 01/16/2025 7:30 AM EST Hospital Encounter [facility] [address] [place] [address] Leta Dupont MD [address] [place] [id number] 01/16/2025 7:30 AM EST - 01/16/2025 9:05 AM EST Surgery [facility] [address] [place] [address] Leta Dupont MD [address] [place] [id number] LEFORT COLPOCLEISIS 02/26/2025 9:00 AM EST Office Visit [facility]ro[facility]ne[facility] [address] [id number] Antonina Ji PA-C [address] [place] [address] Pending Results Name Type Priority Associated Diagnoses Date /Time ECG AND WAVEFORMS - TELEMETRY Point of Care Testing Routine 11/07/2024 5:13 PM EDT ECG AND WAVEFORMS - TELEMETRY Point of Care Testing Routine 11/09/2024 7:49 PM EDT ECG AND WAVEFORMS - TELEMETRY Point of Care Testing Routine 11/10/2024 7:00 AM EDT ECG AND WAVEFORMS - TELEMETRY Point of Care Testing Routine 11/10/2024 10:10 PM EDT Scheduled Procedures Name Priority Associated Diagnoses Date/Ti me LEFORT COLPOCLEISIS Uterovaginal prolapse, incomplete 01/16/2025 7:30 AM EST POSTERIOR REPAIR (RECTOCELE REPAIR) Uterovaginal prolapse, incomplete 01/16/2025 7:30 AM EST LEVATOR PLICATION Uterovaginal prolapse, incomplete 01/16/2025 7:30 AM EST CYSTOSCOPY Uterovaginal prolapse, incomplete 01/16/2025 7:30 AM EST documented as of this encounter Procedures Procedure Name Priority Date/Time Associated Diagnosis Comments SCANNED RHYTHM STRIPS 11/12/2024 12:37 PM EDT ECG AND WAVEFORMS - TELEMETRY Routine 11/11/2024 7:53 AM EDT CBC Early AM 11/11/2024 6:29 AM EDT ECG AND WAVEFORMS - TELEMETRY Routine 11/10/2024 10:10 PM EDT ECG AND WAVEFORMS - TELEMETRY Routine 11/10/2024 7:44 PM EDT ECG AND WAVEFORMS - TELEMETRY Routine 11/10/2024 7:00 AM EDT CBC Early AM 11/10/2024 6:11 AM EDT ECG AND WAVEFORMS - TELEMETRY Routine 11/09/2024 7:49 PM EDT CBC Routine 11/09/2024 9:56 AM EDT BASIC METABOLIC PANEL Routine 11/09/2024 9:56 AM EDT ECG AND WAVEFORMS - TELEMETRY Routine 11/09/2024 7:00 AM EDT ECG AND WAVEFORMS - TELEMETRY Routine 11/09/2024 5:12 AM EDT ECG AND WAVEFORMS - TELEMETRY Routine 11/08/2024 7:35 PM EDT CBC WITH DIFF Routine 11/08/2024 7:14 AM EDT BASIC METABOLIC PANEL Routine 11/08/2024 7:14 AM EDT ECG AND WAVEFORMS - TELEMETRY Routine 11/08/2024 7:05 AM EDT ECG AND WAVEFORMS - TELEMETRY Routine 11/07/2024 7:05 PM EDT ECG AND WAVEFORMS - TELEMETRY Routine 11/07/2024 5:13 PM EDT GLUCOSE METER POC Routine 11/07/2024 12: 05 PM EDT GLUCOSE METER POC Routine 11/07/2024 11: 43 AM EDT GLUCOSE METER POC Routine 11/07/2024 9:0 5 AM EDT PATHOLOGY TISSUE REQUEST Routine 11/07/2024 8:23 AM EDT Colostomy status (HCC) CT LAPS CLSR NTRSTM LG/SM INT W/RESCJ & ANASTOMOSIS 11/07/2024 7:30 AM EDT Colostomy status (HCC) Special Needs th GLUCOSE METER POC Routine 11/07/2024 7:1 3 AM EDT ADMIT Routine 11/07/2024 5:37 AM EDT documented in this encounter Results * SCANNED RHYTHM STRIPS (11/12/2024 12:37 PM EDT) Anatomical Region Laterality Modality Other 11/12/2024 12:3 7 PM EDT us Unknown Provider IMG ECG ORDERABLES Final Result * ECG AND WAVEFORMS - TELEMETRY (11/11/2024 7:53 AM EDT) ECG INTERPRET NSR [facility] 11/11/2024 7:53 AM EDT Narrative [facility] - 11/11/2024 7:58 AM EDT EH - ROUTINE; IVCD CT 0.14 QRS 0.14 RR 0.75 QT 0.40 QTc 0.46 See Clinical Report link for waveform capture us Unknown Provider POINT OF CARE CARDIOLOGY Final Result [facility] [address] [id number] * (ABNORMAL) CBC (11/11/2024 6:29 AM EDT) WBC 6.7 3.7 - 10.3 x10(3)/mcL 11/11/2024 7:06 AM EDT [facility] RBC 3.30(L) 3.90 - 5.20 x10(6)/mcL 11/11/2024 7:06 AM EDT [facility] Hgb 10.6(L) 11.2 - 15.7 g/dL 11/11/2024 7:06 AM EDT [facility] Hct 32.6(L) 34.0 - 45.0 % 11/11/2024 7:06 AM EDT [facility] MCV 98.8 80.0 - 100.0 fL 11/11/2024 7:06 AM EDT [facility] MCH 32.1 26.0 - 34.0 pg 11/11/2024 7:06 AM EDT [facility] MCHC 32.5 30.7 - 35.5 g/dL 11/11/2024 7:06 AM EDT [facility] RDW 13.8 <=14.9 % 11/11/2024 7:06 AM EDT [facility] Platelet 284 155 - 369 x10(3)/mcL 11/11/2024 7:06 AM EDT [facility] MPV 8.4(L) 8.8 - 12.5 fL 11/11/2024 7:06 AM EDT [facility] Blood VENOUS BLOOD / Unknown Venipuncture / Unknown 11/11/2024 6:29 AM EDT 11/11/2024 6:56 AM EDT us Nancy He MD HEMATOLOGY ORDERABLES Final Re sult [facility] [address] [place] [address] * ECG AND WAVEFORMS - TELEMETRY (11/10/2024 7:44 PM EDT) [facility] ECG INTERPRET NSR [facility] 11/10/2024 7:44 PM EDT Narrative [facility] - 11/10/2024 8:34 PM EDT IVCD SG CT 0.16 QRS 0.12 RR 0.83 QT 0.36 QTc 0.39 See Clinical Report link for waveform capture us Unknown Provider POINT OF CARE CARDIOLOGY Final Result [facility] [address] [place] [address] * (ABNORMAL) CBC (11/10/2024 6:11 AM EDT) [facility] WBC 7.7 3.7 - 10.3 x10(3)/mcL 11/10/2024 6:49 AM EDT [facility] RBC 3.41(L) 3.90 - 5.20 x10(6)/mcL 11/10/2024 6:49 AM EDT [facility] Hgb 11.1(L) 11.2 - 15.7 g/dL 11/10/2024 6:49 AM EDT [facility] Hct 32.7(L) 34.0 - 45.0 % 11/10/2024 6:49 AM EDT [facility] MCV 95.9 80.0 - 100.0 fL 11/10/2024 6:49 AM EDT [facility] MCH 32.6 26.0 - 34.0 pg 11/10/2024 6:49 AM EDT [facility] MCHC 33.9 30.7 - 35.5 g/dL 11/10/2024 6:49 AM EDT [facility] RDW 13.8 <=14.9 % 11/10/2024 6:49 AM EDT [facility] Platelet 268 155 - 369 x10(3)/mcL 11/10/2024 6:49 AM EDT [facility] MPV 8.4(L) 8.8 - 12.5 fL 11/10/2024 6:49 AM EDT [facility] Blood VENOUS BLOOD / Unknown Venipuncture / Unknown 11/10/2024 6:11 AM EDT 11/10/2024 6:35 AM EDT us Nancy He MD HEMATOLOGY ORDERABLES Final Re sult [facility] [address] , [place] [address] * (ABNORMAL) BASIC METABOLIC PANEL (11/09/2024 9:56 AM EDT) Sodium 134(L) 136 - 145 mmol/L 11/09/2024 10:55 AM EDT [facility] Potassium 3.7 3.5 - 5.0 mmol/L 11/09/2024 10:55 AM EDT [facility] Chloride 99 98 - 107 mmol/L 11/09/2024 10:55 AM EDT [facility] Total CO2 23 22 - 29 mmol/L 11/09/2024 10:55 AM EDT [facility] Anion Gap 12 7 - 16 mmol/L 11/09/2024 10:55 AM EDT [facility] Calcium 9.4 8.8 - 10.4 mg/dL 11/09/2024 10:55 AM EDT [facility] Glucose Lvl 111(H) 70 - 99 mg/dL 11/09/2024 10:55 AM EDT [facility] BUN 15 8 - 23 mg/dL 11/09/2024 10:55 AM EDT [facility] Creatinine 0.99 0.51 - 1.30 mg/dL 11/09/2024 10:55 AM EDT [facility] eGFR (CKD-EPIcr 2020) 58(L) >=60 mL/min/1.7 3 m2 11/09/2024 10:55 AM EDT [facility] Comment:Estimated GFR was ca lculated using the CKD-EPIcr (2020) equation refit without race. The equation is recommended by the National Kid[employer] - [place] [employer] Neph[employer] Task Force. Blood VENOUS BLOOD / Unknown Venipuncture / Unknown 11/09/2024 9:56 AM EDT 11/09/2024 10:20 AM EDT us Nancy He MD CHEMISTRY ORDERABLES Final Res ult [facility] [address] , [place] [address] * (ABNORMAL) CBC (11/09/2024 9:56 AM EDT) WBC 8.5 3.7 - 10.3 x10(3)/mcL 11/09/2024 10:29 AM EDT [facility] RBC 3.53(L) 3.90 - 5.20 x10(6)/mcL 11/09/2024 10:29 AM EDT [facility] Hgb 11.3 11.2 - 15.7 g/dL 11/09/2024 10:29 AM EDT [facility] Hct 33.9(L) 34.0 - 45.0 % 11/09/2024 10:29 AM EDT [facility] MCV 96.0 80.0 - 100.0 fL 11/09/2024 10:29 AM EDT [facility] MCH 32.0 26.0 - 34.0 pg 11/09/2024 10:29 AM EDT [facility] MCHC 33.3 30.7 - 35.5 g/dL 11/09/2024 10:29 AM EDT [facility] RDW 13.8 <=14.9 % 11/09/2024 10:29 AM EDT [facility] Platelet 300 155 - 369 x10(3)/mcL 11/09/2024 10:29 AM EDT [facility] MPV 8.4(L) 8.8 - 12.5 fL 11/09/2024 10:29 AM EDT [facility] Blood VENOUS BLOOD / Unknown Venipuncture / Unknown 11/09/2024 9:56 AM EDT 11/09/2024 10:20 AM EDT us Nancy He MD HEMATOLOGY ORDERABLES Final Re sult Performing Organization Address City/[facility]/ZIP Co de Phone Number [facility] [address] [facility], [place] [address] * ECG AND WAVEFORMS - TELEMETRY (11/09/2024 7:00 AM EDT) ECG INTERPRET NSR [facility] 11/09/2024 7:00 AM EDT Narrative [facility] - 11/09/2024 8:19 AM EDT ROUTINE SDP CT 0.17 QRS 0.12 RR 0.65 QT 0.35 See Clinical Report link for waveform capture us Unknown Provider POINT OF CARE CARDIOLOGY Final Result Performing Organization Address [facility] [place]/[facility] [place] Co de Phone Number [facility] [address] [place] [address] * ECG AND WAVEFORMS - TELEMETRY (11/09/2024 5:12 AM EDT) ECG INTERPRET Sinus Arrythmia [facility] Comment:with non sustained v tach 11/09/2024 5:12 AM EDT Narrative [facility] - 11/09/2024 6:24 AM EDT IVCD W/6 BTS PJT (JX TACH) SG CT 0.14 QRS 0.13 QT 0.34 See Clinical Report link for waveform capture us Unknown Provider POINT OF CARE CARDIOLOGY Final Result Performing Organization Address [facility] [place] Co de Phone Number [facility] [address] [place] [address] * ECG AND WAVEFORMS - TELEMETRY (11/08/2024 7:35 PM EDT) ECG INTERPRET NSR [facility] 11/08/2024 7:35 PM EDT Narrative [facility] - 11/08/2024 10:[address]T [address]VC [address] CT 0.16 QRS 0.14 RR 0.88 QT 0.38 QTc 0.41 See Clinical Report link for waveform capture us Unknown Provider POINT OF CARE CARDIOLOGY Final Result KARLENE YING [address] [place] [address] * (ABNORMAL) BASIC METABOLIC PANEL (11/08/2024 7:14 AM EDT) Sodium 131(L) 136 - 145 mmol/L 11/08/2024 8:06 AM EDT [facility] Potassium 3.7 3.5 - 5.0 mmol/L 11/08/2024 8:06 AM EDT [facility] Chloride 99 98 - 107 mmol/L 11/08/2024 8:06 AM EDT [facility] Total CO2 23 22 - 29 mmol/L 11/08/2024 8:06 AM EDT [facility] Anion Gap 9 7 - 16 mmol/L 11/08/2024 8:06 AM EDT [facility] Calcium 8.8 8.8 - 10.4 mg/dL 11/08/2024 8:06 AM EDT [facility] Glucose Lvl 112(H) 70 - 99 mg/dL 11/08/2024 8:06 AM EDT [facility] BUN 21 8 - 23 mg/dL 11/08/2024 8:06 AM EDT [facility] Creatinine 1.27 0.51 - 1.30 mg/dL 11/08/2024 8:06 AM EDT [facility] eGFR (CKD-EPIcr 2020) 43(L) >=60 mL/min/1.7 3 m2 11/08/2024 8:06 AM EDT [facility] Comment:Estimated GFR was ca lculated using the CKD-EPIcr (2020) equation refit without race. The equation is recommended by the [employer] - [place] [employer]ph[employer] Task Force. Blood VENOUS BLOOD / Unknown Venipuncture / Unknown 11/08/2024 7:14 AM EDT 11/08/2024 7:32 AM EDT us Jennifer Porter PA-C CHEMISTRY ORDERABLES Final R esult [facility] [address] [facility], [address] [place] [id number] * (ABNORMAL) CBC WITH DIFF (11/08/2024 7:14 AM EDT) WBC 10.1 3.7 - 10.3 x10(3)/mcL 11/08/2024 7:47 AM EDT [facility] RBC 3.24(L) 3.90 - 5.20 x10(6)/mcL 11/08/2024 7:47 AM EDT [facility] Hgb 10.3(L) 11.2 - 15.7 g/dL 11/08/2024 7:47 AM EDT [facility] Hct 31.2(L) 34.0 - 45.0 % 11/08/2024 7:47 AM EDT [facility] MCV 96.3 80.0 - 100.0 fL 11/08/2024 7:47 AM EDT [facility] MCH 31.8 26.0 - 34.0 pg 11/08/2024 7:47 AM EDT [facility] MCHC 33.0 30.7 - 35.5 g/dL 11/08/2024 7:47 AM EDT [facility] RDW 13.8 <=14.9 % 11/08/2024 7:47 AM EDT [facility] Platelet 257 155 - 369 x10(3)/mcL 11/08/2024 7:47 AM EDT [facility] MPV 8.4(L) 8.8 - 12.5 fL 11/08/2024 7:47 AM EDT [facility] Neut Percent 70.5 % 11/08/2024 7:47 AM EDT [facility] Comment:Neutrophils equals s egs plus bands Imm Gran% 0.3 % 11/08/2024 7:47 AM EDT [facility] Comment:Automated count of m etamyelocytes, myelocytes and promyelocytes. Lymph Percent 20.0 % 11/08/2024 7:47 AM EDT [facility] [place] Percent 8.6 % 11/08/2024 7:47 AM EDT [facility] Eos Percent 0.4 % 11/08/2024 7:47 AM EDT [facility] Baso Percent 0.2 % 11/08/2024 7:47 AM EDT [facility] Neut # 7.1(H) 1.6 - 6.1 x10(3)/[facility] 11/08/2024 7:47 AM EDT [facility] Comment:Neutrophils equals s egs plus bands IMMGRAN# 0.0 0.0 - 0.1 x10(3)/mcL 11/08/2024 7:47 AM EDT [facility] Comment:Automated count of m etamyelocytes, myelocytes and promyelocytes. An absolute IG <0.1 is reported as 0.0. Lymph # 2.0 1.2 - 3.9 x10(3)/mcL 11/08/2024 7:47 AM EDT [facility] [place] # 0.9 0.3 - 0.9 x10(3)/mcL 11/08/2024 7:47 AM EDT [facility] Eos# 0.0 0.0 - 0.5 x10(3)/mcL 11/08/2024 7:47 AM EDT [facility] Baso # 0.0 0.0 - 0.1 x10(3)/mcL 11/08/2024 7:47 AM EDT [facility] Blood VENOUS BLOOD / Unknown Venipuncture / Unknown 11/08/2024 7:14 AM EDT 11/08/2024 7:33 AM EDT us Jennifer Porter PA-C HEMATOLOGY ORDERABLES Final Result [facility] [address] [facility] , [place] [address] * ECG AND WAVEFORMS - TELEMETRY (11/08/2024 7:05 AM EDT) ECG INTERPRET NSR [facility] 11/08/2024 7:05 AM EDT Narrative [facility] - 11/08/2024 8:45 AM EDT IVCD/ROUTINE/MTS CT 0.15 QRS 0.12 RR 0.84 QT 0.38 QTc 0.41 See Clinical Report link for waveform capture us Unknown Provider POINT OF CARE CARDIOLOGY Final Result Performing Organization Address City/[facility]/ZIP Co de Phone Number [facility] [address] [place] [address] * ECG AND WAVEFORMS - TELEMETRY (11/07/2024 7:05 PM EDT) ECG INTERPRET NSR [facility] 11/07/2024 7:05 PM EDT Narrative [facility] - 11/07/2024 8:31 PM EDT ROUTINE/IVCD/al CT 0.16 QRS 0.16 RR 0.78 QT 0.43 QTc 0.48 See Clinical Report link for waveform capture us Unknown Provider POINT OF CARE CARDIOLOGY Final Result Performing Organization Address [facility] Co de Phone Number [facility] [address] [place] [address] * (ABNORMAL) GLUCOSE METER POC (11/07/2024 12:05 PM EDT) Glucose Meter POC 152(H) 70 - 100 mg/dL 11/07/2024 12:07 PM EDT [facility] Sample Type Capillary 11/07/2024 12:07 PM EDT [facility] Patient Status Non-Critical Patient 11/07/2024 12:07 PM EDT [facility] Blood BLOOD SPECIMEN / Unknown 11/07/2024 12:05 PM EDT 11/07/2024 12:07 PM EDT us Monica Arzola MD POINT OF CARE TEST ORDERABLES Fi nal Result Performing Organization Address City/[facility]/ZIP Co de Phone Number [facility] [address] [place] [address] * (ABNORMAL) GLUCOSE METER POC (11/07/2024 11:43 AM EDT) Glucose Meter POC 162(H) 70 - 100 mg/dL 11/07/2024 11:45 AM EDT [facility] Sample Type Capillary 11/07/2024 11:45 AM EDT [facility] Patient Status Non-Critical Patient 11/07/2024 11:45 AM EDT [facility] Blood BLOOD SPECIMEN / Unknown 11/07/2024 11:43 AM EDT 11/07/2024 11:45 AM EDT Monica Arzola MD POINT OF CARE TEST ORDERABLES Fi nal Result Performing Organization Address [facility] [place] [address] * (ABNORMAL) GLUCOSE METER POC (11/07/2024 9:05 AM EDT) Glucose Meter POC 136(H) 70 - 100 mg/dL 11/07/2024 9:07 AM EDT [facility] Sample Type Capillary 11/07/2024 9:07 AM EDT [facility] Patient Status Non-Critical Patient 11/07/2024 9:07 AM EDT [facility] Blood BLOOD SPECIMEN / Unknown 11/07/2024 9:05 AM EDT 11/07/2024 9:07 AM EDT Monica Arzola MD POINT OF CARE TEST ORDERAB[place] [address] * PATHOLOGY TISSUE REQUEST (11/07/2024 8:23 AM EDT) CASE REPORT Surgical Pathology Case: [id number] Authorizing Provider: Monica Arzola MD Collected: 11/07/2024 0823 Ordering Location: [facility] Received: 11/07/2024 0835 Pathologist: Levi Bedoya MD Intraop: Liliane Qureshi MD Specimens: A) - Omentum, Omental tissue B) - Colostomy Site, Colostomy Trim C) - Large Intestine, Rectum, Rectal Stump D) - Abdominal, fat necrosis E) - Abdominal, Anastamotic rings 11/12/2024 5:43 PM EDT [facility] FINAL DIAGNOSIS A. Omental tissue, resection: - Fat necrosis and foreign body type giant cell reaction. - Negative for carcinoma. B. Colostomy trim, resection: - Colostomy site with chronic inflammation. - Negative for cytologic atypia or malignancy. C. Rectal stump, resection: - Chronic inflammation and foreign body type giant cell reaction. - Negative for malignancy. D. Adipose tissue, abdominal, fat necrosis, resection: - Fat necrosis and foreign body type giant cell reaction. - Negative for carcinoma. E. Anastomotic rings, excision: - Anastomotic rings with no mild chronic inflammation. - Negative for cytologic atypia or malignancy. 11/12/2024 5:43 PM EDT [facility] at 1743 EDT GROSS DESCRIPTION A. Received fresh for frozen labeled with patient's name, MRN, and omental tissue is a 2.5 x 1.4 x 0.5 cm portion of yellow-crocker rubbery fatty tissue. The specimen is bisected and one half is submitted for frozen section analysis. The specimen is entirely submitted as follows: A1 = frozen section remnant A2 = remaining tissue INGA Dong PA (ASCP) B. Received in formalin labeled with patient's name, MRN, and Colostomy trim is a 3.5 cm in length segment of large bowel ranging from 3 cm in diameter at 1 end to 4.5 cm in diameter at the opposing end. At the dilated end there is scant attached balderas-crocker skin. The mucosa throughout the specimen is crocker-white, unremarkable. Engine Testing Supervisor sections are submitted in 1 cassette. INGA Dong PA (ASCP) C. Received in formalin labeled with patient's name, MRN, and rectal stump is a 4.7 x 4.5 x 3.2 cm pouch shaped portion of bowel with a stapled margin at one end (amputated, staple line inked blue). The mucosa throughout the specimen is crocker-white, unremarkable. On sectioning there is an embedded staple line consistent with previous surgical site. No polyps, masses, or areas of dehiscence are identified. Engine Testing Supervisor sections are submitted as follows: C1 = perpendicular blue inked margin C2 = embedded remote staple line INGA Dong PA (ASCP) D. Received in formalin labeled with patient's name, MRN, and fat necrosis are 2 portions of purple-balderas to yellow-balderas indurated tissue ranging from 1.7 to 2 cm in greatest dimension. The tissues are entirely submitted as follows: D1 = bisected smaller tissue D2 = bisected larger tissue INGA Dong PA (ASCP) E. Received in formalin labeled with patient's name, MRN, and anastomotic rings are 2 annular portions of bowel ranging from 1.7 x 1.6 x 1.5 cm to 2.4 x 1.5 x 1.3 cm. The larger tissue displays embedded suture material. Both tissues display unremarkable crocker-white mucosa. Engine Testing Supervisor sections are submitted in 1 cassette. INGA Dong PA (ASCP) 11/12/2024 5:43 PM EDT [facility] MICROSCOPIC DESCRIPTION The microscopic examination may have been rendered in whole, or in part, by analyzing high-resolution digital images (whole slide images) on the [employer] Digital Pathology platform validated at [facility]. 11/12/2024 5:43 PM EDT [facility] INTRAOPERATIVE CONSULTATION FSA. Negative for malignancy (fat necrosis and jbldcco-hrxn-ycd e giant cell reaction). AM to [place] 11/12/2024 5:43 PM EDT [facility] EMBEDDED IMAGES 5:43 PM EDT [facility] Tissue OMENTUM STRUCTURE / Unknown 11/07/2024 8:23 AM EDT 11/07/2024 8:35 AM EDT Comment:Call back OR 12 Tissue specimen (specimen) COLOSTOMY - STOMA / Unknown 11/07/2024 8:36 AM EDT 11/07/2024 1:18 PM EDT Tissue specimen (specimen) RECTUM STRUCTURE / Unknown 11/07/2024 10:56 AM EDT 11/07/2024 1:18 PM EDT Tissue specimen (specimen) ABDOMEN / Unknown 11/07/2024 11:04 AM EDT 11/07/2024 1:18 PM EDT Tissue specimen (specimen) ABDOMEN / Unknown 11/07/2024 11:07 AM EDT 11/07/2024 1:18 PM EDT us Monica Arzola MD PATHOLOGY ORDERABLES Final Resul t Performing Organization Address [facility] de Phone Number [facility] [address] [place] [address] [facility] [address] [place] [phone] * (ABNORMAL) GLUCOSE METER POC (11/07/2024 7:13 AM EDT) Glucose Meter POC 106(H) 70 - 100 mg/dL 11/07/2024 7:14 AM EDT [facility] Sample Type Capillary 11/07/2024 7:14 AM EDT [facility] Patient Status Non-Critical Patient 11/07/2024 7:14 AM EDT [facility] Blood BLOOD SPECIMEN / Unknown 11/07/2024 7:13 AM EDT 11/07/2024 7:14 AM EDT us Monica Arzola MD POINT OF CARE TEST ORDERABLES Fi nal Result Performing Organization Address [facility] de Phone Number [address] [phone] documented in this encounter Visit Diagnoses Diagnosis Colostomy status (HCC)- Primary Colostomy status Uterovaginal prolapse, incomplete- Primary Uterovaginal prolapse, incomplete documented in this encounter Admitting Diagnoses Diagnosis Colostomy status (HCC) Colostomy status documented in this encounter Administered Medications Inactive Administered Medications - up to 1 most recent administrations Medication Order MAR Action Action Date Dose Rate Site acetaminophen (OFIRMEV) infusion 1,000 mg 1,000 mg, Intravenous, *EVERY 6 HOURS, 4 doses, First dose on Yohana 11/07/24 at 1645, Last dose on Mon11/08/24 at 1045, Administer over 15 Minutes, For patients with severe liver disease or hepatic insufficiency, do not administer acetaminophen and contact provider for alternate analgesic. If also giving q6h ketorolac or ibuprofen, stagger administrations by three hours (give acetaminophen 3 hours after the NSAID). Maximum adult dose of acetaminophen is 4000 mg from all sources in 24 hours., Post-op IV Started 11/08/2024 10:42 AM EDT 1,000 mg 400 mL/hr acetaminophen (TYLENOL) tablet 1,000 mg 1,000 mg, Oral, PREPROCEDURE, 1 dose, Starting on Mon11/06/24 at 0814, Until Mon11/07/24 at 0625, Coanalgesic, Do not give if patient received acetaminophen within the last 6 hours Maximum adult dose of acetaminophen is 4000 mg from all sources in 24 hours., Pre-op (Holding/SDS Meds) Given 11/07/2024 6:25 AM EDT 1,000 mg acetaminophen (TYLENOL) tablet 1,000 mg 1,000 mg, Oral, *EVERY 6 HOURS, First dose on Mon11/08/24 at 1515, Until Discontinued, For patients with severe liver disease or hepatic insufficiency, do not administer acetaminophen and contact provider for alternate analgesic. If also giving q6h ketorolac or ibuprofen, stagger administrations by three hours (give acetaminophen 3 hours after the NSAID). Maximum adult dose of acetaminophen is 4000 mg from all sources in 24 hours., Post-op Given 11/11/2024 6:05 AM EDT 1,000 mg alvimopan (ENTEREG) capsule 12 mg 12 mg, Oral, ONCE PREPROCEDURE, 1 dose, On Mon11/06/24 at 0815, Pre-op (Holding/SDS Meds) Given 11/07/2024 6:25 AM EDT 12 mg alvimopan (ENTEREG) capsule 12 mg 12 mg, Oral, 2 TIMES DAILY, 14 doses, First dose on Mon11/08/24 at 0900, Last dose on Mon11/14/24 at 2100, Start on POD 1. Discontinue after bowel movement., Post-op Given 11/09/2024 9:17 AM EDT 12 mg apixaban (ELIQUIS) tablet 5 mg 5 mg, Oral, 2 TIMES DAILY, First dose on Mon11/10/24 at 1230, Until Discontinued Given 11/11/2024 8:55 AM EDT 5 mg aprepitant (EMEND) capsule 40 mg 40 mg, Oral, ONCE PREPROCEDURE, 1 dose, On Mon11/06/24 at 0815, Pre-op (Holding/SDS Meds) Given 11/07/2024 6:25 AM EDT 40 mg atorvastatin (LIPITOR) tablet 10 mg 10 mg, Oral, DAILY, First dose on Yohana 11/07/24 at 1230, Until Discontinued Given 11/11/2024 8:53 AM EDT 10 mg carvediloL (COREG) tablet 12.5 mg 12.5 mg, Oral, 2 TIMES DAILY WITH MEALS, First dose on Mon11/07/24 at 1800, Until Discontinued, Take with a meal. Given 11/11/2024 8:55 AM EDT 12.5 mg chlorhexidine (HIBICLENS) 4 % liquid Topical, ONCE PREPROCEDURE, 1 dose, On Mon11/06/24 at 0815, Application site: Skin prep: Abdominal / Local. Patient to cleanse self with Hibiclens, Pre-op (Nursing) Given 11/07/2024 6:25 AM EDT dicyclomine (BENTYL) capsule 10 mg 10 mg, Oral, 4 TIMES DAILY BEFORE MEAL, First dose (after last modification) on Mon11/09/24 at 0130, Until Discontinued Given 11/11/2024 10:09 AM EDT 10 mg enoxaparin (LOVENOX) injection 40 mg 40 mg, Subcutaneous, DAILY - LMWH/Xa, First dose on Mon11/07/24 at 1230, Until Discontinued, Post-op Given 11/08/2024 12:16 PM EDT 40 mg Abdominal Tissue granisetron (KYTRIL) injection 1 mg 1 mg, Intravenous, ONCE PREPROCEDURE, 1 dose, On Mon11/06/24 at 0815, Pre-op (Holding/SDS Meds) Given 11/07/2024 6:30 AM EDT 1 mg heparin (porcine) injection 5,000 Units 5,000 Units, Subcutaneous, ONCE PREPROCEDURE, 1 dose, On Mon11/06/24 at 0815, Pre-op (Holding/SDS Meds) Given 11/07/2024 6:34 AM EDT 5,000 Units Right Arm ketorolac (ACULAR) 0.5 % ophthalmic solution 1 Drop 1 Drop, Left Eye, 4 TIMES DAILY, 12 doses, First dose on Mon11/07/24 at 2100, Last dose on Mon11/10/24 at 1700, Please consult eye doctor if symptoms fail to improve over the next few days Given 11/07/2024 8:22 PM EDT 1 Drop Left Eye labetaloL (NORMODYNE) injection 10 mg 10 mg, Intravenous, ONCE, 1 dose, On Mon11/07/24 at 1700 Given 11/07/2024 4:42 PM EDT 10 mg lactated ringers infusion Intravenous, at 50 mL/hr, PREPROCEDURE CONTINUOUS, Starting on Mon11/06/24 at 0814, Until Mon11/07/24 at 1221, To be given in SDS/Pre-op Holding Area, Pre-op (Holding/SDS Meds) New Bag 11/07/2024 9:09 AM EDT lactated ringers infusion Intravenous, at 40 mL/hr, CONTINUOUS, Starting on Mon11/07/24 at 1230, Until Mon11/08/24 at 1217, Saline lock after 24 hours if patient tolerating PO intake, Post-op Rate/Dose Verify 11/08/2024 9:16 AM EDT 40 mL/hr lidocaine (ASPERCREME) 4 % patch 1 Patch 1 Patch, Transdermal, EVERY 12 HOURS SCHEDULED (2 times per day), First dose on Mon11/07/24 at 2100, Until Discontinued, Remove patch after 12 hours, Administer over 12 Hours, Application site: abdomen, Post-op Patch Applied 11/10/2024 8:54 AM EDT 1 Patch Left Lower Quadrant- Abdomen morphine injection 2 mg 2 mg, Intravenous, EVERY 2 HOURS PRN, Starting on Mon11/07/24 at 1505, Until 11/11/24 at 1727, Pain Unrelieved by Oral Opioid Therapy, Begin with lowest dose unless otherwise directed. Reassess pain in 15 minutes. If pain unrelieved, remainder of dose may be given to patient., Post-op morphine injection 4 mg 4 mg, Intravenous, EVERY 2 HOURS PRN, Starting on Mon11/07/24 at 1505, Until 11/11/24 at 1727, Pain Unrelieved by Oral Opioid Therapy, Begin with lowest dose unless otherwise directed. Reassess pain in 15 minutes. If pain unrelieved, remainder of dose may be given to patient., Post-op NIFEdipine (PROCARDIA XL) CR tablet 90 mg 90 mg, Oral, DAILY, First dose on Mon11/08/24 at 0900, Until Discontinued Given 11/11/2024 8:54 AM EDT 90 mg ondansetron (ZOFRAN) injection 4 mg 4 mg, Intravenous, EVERY 6 HOURS PRN, Starting on Mon11/07/24 at 1505, Until Mon11/11/24 at 1727, Nausea, Vomiting, Post-op Given 11/09/2024 12:20 AM EDT 4 mg oxyCODONE (ROXICODONE) immediate release tablet 5-10 mg 5-10 mg, Oral, EVERY 4 HOURS PRN, Starting on Mon11/07/24 at 1505, Until Mon11/11/24 at 1727, Pain, Begin with lowest dose unless otherwise directed. Reassess pain in one hour. If pain unrelieved, remainder of dose may be given to patient., Post-op Given 11/08/2024 1:52 PM EDT 10 mg pantoprazole (PROTONIX) 40 mg in sodium chloride 0.9% 10 mL injection 40 mg, Intravenous, DAILY, 2 doses, First dose on Mon11/07/24 at 1230, Last dose on Mon11/08/24 at 0900, Reconstitute the appropriate number of 40 mg vials with 10 mL of 0.9% sodium chloride injection for EACH VIAL to a final concentration of approximately 4 mg/mL; administer total volume IV over a period of at least 2 minutes , Post-op Given 11/08/2024 8:51 AM EDT 40 mg sodium chloride 0.9% IV line flush 20-50 mL 20-50 mL, Intravenous, at 150-600 mL/hr, PRN, Starting on Mon11/08/24 at 2255, Until Mon11/11/24 at 1727, Line Care, Flush with a minimum of 20 mL after IVPB to insure complete administration of the dose. May use the saline infusion to back flush IVPB tubing as needed. sodium chloride 0.9% syringe Intravenous, EVERY 12 HOURS SCHEDULED (2 times per day), First dose on Mon11/09/24 at 0030, Until Discontinued, Flush with 3-5 mL saline for PERIPHERAL saline lock maintenance. Given 11/11/2024 8:58 AM EDT 10 mL sodium chloride 0.9% syringe Intravenous, PRN, Starting on Mon11/08/24 at 2255, Until Mon11/11/24 at 1727, Line Care, Flush with 5-10 mL saline pre/post IVP, and 5 mL prior to IVPB or blood product administration. Given 11/10/2024 9:04 PM EDT 10 mL documented in this encounter Discontinued Medications Medication Sig Discontinue Reason Start Date End Da te polyethylene glycol (GOLYTELY) 236-22.74-6.74 -5.86 gram Oral Recon SolnIndications:Colos mando status (HCC) At 2 pm on the day prior, drink THE ENTIRE volume. Clear liquids ALL DAY prior. Stop Taking at Discharge 10/08/2024 11/07/2024 neomycin (MYCIFRADIN) 500 mg Oral TabletIndications:Col ostomy status (HCC) Two tablets by mouth at 2 pm, 3pm, and 7 pm the day before surgery. Stop Taking at Discharge 10/08/2024 11/07/2024 metroNIDAZOLE (FLAGYL) 500 mg Oral TabletIndications:Col ostomy status (HCC) 2 tablets by mouth at 2 pm, 3 pm, and 7 pm the day before surgery. Stop Taking at Discharge 10/08/2024 11/07/2024 acetaminophen (TYLENOL) 500 mg Oral Tablet Take 500 mg by mouth every 6 hours. Stop Taking at Discharge 03/28/2024 11/11/2024 polyethylene glycol (GLYCOLAX) 17 gram/dose Oral PowderIndications:Jeanette rovaginal prolapse, incomplete Begin Miralax, 17 g (1 capful) PO mixed in your favorite drink once a day beginning 1 week prior to surgery, after surgery drink this twice a day for 2 weeks Stop Taking at Discharge 10/10/2024 11/11/2024 documented as of this encounter Active and Recently Administered Medications Times are shown in EDT. Scheduled Medication Order 11/09/2024 11/10/2024 11/11/2024 acetaminophen (TYLENOL) tablet 1,000 mg 1,000 mg, Oral, *EVERY 6 HOURS, First dose on Mon11/08/24 at 1515, Until Discontinued, For patients with severe liver disease or hepatic insufficiency, do not administer acetaminophen and contact provider for alternate analgesic. If also giving q6h ketorolac or ibuprofen, stagger administrations by three hours (give acetaminophen 3 hours after the NSAID). Maximum adult dose of acetaminophen is 4000 mg from all sources in 24 hours., Post-op 0008 (Given - Provider: Sandra Ponce RN)0656 (Given - Provider: Sandra Ponce RN)1227 (Given - Provider: Emily Angel RN)1800 (Not Given - Provider: Emily Angel RN - Reason: Other - Comment: 4000mg in 24h)2155 (Given - Provider: Kamron Baez RN) 0000 (Not Given - Provider: Kamron Baez RN - Reason: Other - Comment: gave earlier)0506 (Given - Provider: Kamron Baez RN)1241 (Given - Provider: Frederick Danielson RN)1807 (Given - Provider: Frederick Danielson RN) 0000 (Not Given - Provider: Kamron Baez RN - Reason: Sedated/Sleeping)060 5 (Given - Provider: Kamron Baez RN)1313 (Not Given - Provider: Fariba Easton RN - Reason: Patient Declined) alvimopan (ENTEREG) capsule 12 mg (CANCELED) 12 mg, Oral, 2 TIMES DAILY, 14 doses, First dose on Mon11/08/24 at 0900, Last dose on Yohana 11/14/24 at 2100, Start on POD 1. Discontinue after bowel movement., Post-op 0917 (Given - Provider: Emily Angel RN) apixaban (ELIQUIS) tablet 5 mg 5 mg, Oral, 2 TIMES DAILY, First dose on Mon11/10/24 at 1230, Until Discontinued 1241 (Given - Provider: Frederick Danielson RN)2102 (Given - Provider: Kamron Baez RN) 0855 (Given - Provider: Fariba Easton RN) atorvastatin (LIPITOR) tablet 10 mg 10 mg, Oral, DAILY, First dose on Yohana 11/07/24 at 1230, Until Discontinued 09 (Given - Provider: Emily Angel RN) 0855 (Given - Provider: Frederick Danielson RN) 0853 (Given - Provider: Fariba Easton RN) carvediloL (COREG) tablet 12.5 mg 12.5 mg, Oral, 2 TIMES DAILY WITH MEALS, First dose on Mon11/07/24 at 1800, Until Discontinued, Take with a meal. 0917 (Given - Provider: Emily Angel RN)1722 (Given - Provider: Emily Angel RN) 0855 (Given - Provider: Frederick Danielson RN)1807 (Given - Provider: Frederick Danielson RN) 0855 (Given - Provider: Fariba Easton RN) dicyclomine (BENTYL) capsule 10 mg 10 mg, Oral, 4 TIMES DAILY BEFORE MEAL, First dose (after last modification) on Mon11/09/24 at 0130, Until Discontinued 0133 (Given - Provider: Sandra Ponce RN)0656 (Given - Provider: Sandra Ponce RN)0951 (Given - Provider: Emily Angel RN)1722 (Given - Provider: Emily Angel RN)2155 (Given - Provider: Kamron Baez RN) 0507 (Given - Provider: Kamron Baez, AMADOR)1033 (Given - Provider: Frederick Danielson, AMADOR)1603 (Given - Provider: Frederick Danielson, AMADOR)2102 (Given - Provider: Kamron Baez RN) 0606 (Given - Provider: Kamron Baez, AMADOR)1009 (Given - Provider: Fariba Easton, AMADOR) lidocaine (ASPERCREME) 4 % patch 1 Patch 1 Patch, Transdermal, EVERY 12 HOURS SCHEDULED (2 times per day), First dose on Mon11/07/24 at 2100, Until Discontinued, Remove patch after 12 hours, Administer over 12 Hours, Application site: abdomen, Post-op 0857 (Patch Removed - Provider: Emily Angel RN)0918 (Patch Applied - Provider: Emily Angel RN)205 (Patch Removed - Provider: Kamron Baez RN)215 (Patch Applied - Provider: Kamron Baez RN) 0854 (Patch Applied - Provider: Frederick Danielson RN)0859 (Patch Removed - Provider: Frederick Danielson RN)205 (Patch Removed - Provider: Kamron Baez RN)2100 (Not Given - Provider: Kamron Baez RN - Reason: Patient Declined) 0858 (Not Given - Provider: Fariba Easton RN - Reason: Patient Declined) NIFEdipine (PROCARDIA XL) CR tablet 90 mg 90 mg, Oral, DAILY, First dose on Mon11/08/24 at 0900, Until Discontinued 0917 (Given - Provider: Emily Angel RN) 0855 (Given - Provider: Frederick Danielson, AMADOR) 0854 (Given - Provider: Fariba Easton RN) sodium chloride 0.9% syringe Intravenous, EVERY 12 HOURS SCHEDULED (2 times per day), First dose on Mon11/09/24 at 0030, Until Discontinued, Flush with 3-5 mL saline for PERIPHERAL saline lock maintenance. 0008 (Given - Provider: Sandra Ponce RN)0919 (Given - Provider: Emily Angel RN)2114 (Given - Provider: Kamron Baez RN) 0855 (Given - Provider: Frederick Danielson RN)2100 (Not Given - Provider: Kamron Baez RN - Reason: Other - Comment: n) 0858 (Given - Provider: Fariba Easton RN) PRN Medication Order 11/09/2024 11/10/2024 11/11/2024 morphine injection 2 mg(Linked Group 1) 2 mg, Intravenous, EVERY 2 HOURS PRN, Starting on Yohana 11/07/24 at 1505, Until 11/11/24 at 1727, Pain Unrelieved by Oral Opioid Therapy, Begin with lowest dose unless otherwise directed. Reassess pain in 15 minutes. If pain unrelieved, remainder of dose may be given to patient., Post-op morphine injection 4 mg(Linked Group 1) 4 mg, Intravenous, EVERY 2 HOURS PRN, Starting on Yohana 11/07/24 at 1505, Until 11/11/24 at 1727, Pain Unrelieved by Oral Opioid Therapy, Begin with lowest dose unless otherwise directed. Reassess pain in 15 minutes. If pain unrelieved, remainder of dose may be given to patient., Post-op ondansetron (ZOFRAN) injection 4 mg 4 mg, Intravenous, EVERY 6 HOURS PRN, Starting on Yohana 11/07/24 at 1505, Until 11/11/24 at 1727, Nausea, Vomiting, Post-op 0020 (Given - Provider: Sandra Ponce RN) oxyCODONE (ROXICODONE) immediate release tablet 5-10 mg 5-10 mg, Oral, EVERY 4 HOURS PRN, Starting on Yohana 11/07/24 at 1505, Until 11/11/24 at 1727, Pain, Begin with lowest dose unless otherwise directed. Reassess pain in one hour. If pain unrelieved, remainder of dose may be given to patient., Post-op sodium chloride 0.9% IV line flush 20-50 mL 20-50 mL, Intravenous, at 150-600 mL/hr, PRN, Starting on Mon11/08/24 at 2255, Until Mon11/11/24 at 1727, Line Care, Flush with a minimum of 20 mL after IVPB to insure complete administration of the dose. May use the saline infusion to back flush IVPB tubing as needed. sodium chloride 0.9% syringe Intravenous, PRN, Starting on Mon11/08/24 at 2255, Until Mon11/11/24 at 1727, Line Care, Flush with 5-10 mL saline pre/post IVP, and 5 mL prior to IVPB or blood product administration. 0020 (Given - Provider: Sandra Ponce RN) 2103 (Given - Provider: Kamron Baez RN) Linked Groups Order Group 1: morphine injection 2 mgJump to med 2 mg, Intravenous, EVERY 2 HOURS PRN, Starting on Yohana 11/07/24 at 1505, Until Mon11/11/24 at 1727, Pain Unrelieved by Oral Opioid Therapy, Begin with lowest dose unless otherwise directed. Reassess pain in 15 minutes. If pain unrelieved, remainder of dose may be given to patient., Post-op Or morphine injection 4 mgJump to med 4 mg, Intravenous, EVERY 2 HOURS PRN, Starting on Yohana 11/07/24 at 1505, Until Mon11/11/24 at 1727, Pain Unrelieved by Oral Opioid Therapy, Begin with lowest dose unless otherwise directed. Reassess pain in 15 minutes. If pain unrelieved, remainder of dose may be given to patient., Post-op documented in this encounter Orders Medications Ordered That Frankie ht Not Have Been Administered Count Last Ordered Date First Ordered Date dicyclomine (BENTYL) capsule 10 mg 1 2024 sodium chloride 0.9% IV line flush 20-50 mL 1 11/08/2024 bupivacaine (MARCAINE/SENSOR RENATO) 0.5 % (5 mg/mL) injection 1 11/07/2024 BUPivacaine liposome (PF) (E XPAREL) 1.3 % (13.3 mg/mL) 20 mL injection 1 11/07/2024 dimenhyDRINATE (DRAMAMINE) 1 2.5-50 mg in sodium chloride 0.9% injection 1 11/07/2024 droPERidol (INAPSINE) injection 0.625 mg 1 11/07/2024 fentaNYL (SUBLIMAZE) injection 50 mcg 1 HYDROmorphone (DILAUDID) injection 0.25 mg 1 11/07/2024 insulin aspart U-100 (NovoLO G) injection 1-5 Units 1 11/07/2024 morphine injection 2 mg 1 11/07/2024 morphine injection 4 mg 1 11/07/2024 NIFEdipine (ADALAT CC) CR tablet 90 mg 1 ondansetron (ZOFRAN) injection 4 mg 1 11/07 ondansetron (ZOFRAN-ODT) dis integrating tablet 8 mg 1 11/07/2024 oxyCODONE (ROXICODONE) immed iate release tablet 5 mg 1 11/07/2024 promethazine (PHENERGAN) 12. 5 mg in sodium chloride 0.9% 10 mL injection 1 11/07/2024 promethazine (PHENERGAN) 6.2 5 mg in sodium chloride 0.9% 10 mL injection 1 11/07/2024 ceFAZolin (ANCEF) IVPB 2 g 1 11/06/2024 metroNIDAZOLE (FLAGYL) IVPB 500 mg 1 2024 Nursing Count Last Ordered Date First Orde red Date PEREZ CATHETER - DISCONTINUE 1 11/08/2024 Admission Count Last Ordered Date First Orde red Date ADMIT 1 11/07/2024 Discharge Count Last Ordered Date First Orde red Date DISCHARGE PATIENT 1 11/11/2024 documented in this encounter Care Teams Drilling Engineering Manager Relationship Specialty Start Date End Date Chas Barrera [address] [place] [id number] PCP - General Family Medicine 11/08/24 documented as of this encounter
--- OUTSIDE RECORDS SUMMARY | 2024-11-07 05:28 | XMS_ITS | Encounter Summary ---
Author Organization [place] [address] Care Team Providers Care Director Of Curriculum Name Role Phone Chas Barrera Primary Care Provider [phone] Reason for Visit * Auth/Cert/Inpt Specialty Diagnoses / Procedures Referred By Contac t Referred To Contact Diagnoses Colostomy status (HCC) Colostomy status (HCC) [Z93.3] Procedures PA LAPS CLSR NTRSTM LG/SM INT W/RESCJ & ANASTOMOSIS Robotic nii reversal Referral ID Status Reason Start Date Expiration Date Visits Re quested Visits Authorized [id number] 1 1 Encounter Details Date Type Department Care Team (Latest Contact Info) Description 11/07/2024 5:28 AM EDT - 11/11/2024 1:27 PM EDT Hospital Encounter [place] [address] [place] [address] Monica Arzola MD [address] [place] [address] [address] [place] [address] Colostomy status (HCC) Discharge Disposition: Home or Self Care Social History Tobacco Use Types Packs/Day Years Used Date Smoking Tobacco: Never Smokeless Tobacco: Never Alcohol Use Standard Drinks/Week Comments Not Currently 0 (1 standard drink = 0.6 oz pur e alcohol) [facility] Utilities Answer Date Recorded In the past [...] Date Recorded PHQ-2 Total Score 0 11/08/2024 [facility] - Occupational Stress [...] money to get more. Never true 11/08/2024 [facility] IP Transportation Answer D ate Recorded In [...] 2:15 PM EDT Whitney Joyce RN * [place] Suicide Severity Rating Scale (Q shift for [...] Lopez MD - 11/11/2024 11:39 AM EDT [facility] Discharge Summary Patient Name: Alesha Rose : [...] (144-216) mg Cap Refills: 0 Generic drug: Nxllb-8-HXR-EPA-Fish Oil Magnesium 200 mg Tab Refills: 0 [...] Your Medications These medications were sent to [facility] [address] [place] [address] Hours: Monday-Monday 8:00am - 6:30pm Monday-Monday 9:00am [...] * How to use an incentive spirometer ([place]) documented in this encounter Medications at Time [...] Sustained Release Take 90 mg by mouth. Reagc-0-UCG-EPA- Fish Oil (FISH OIL) 1,200 (144-216) mg [...] Means Destination Comment s Home or Self Retirement documented in this encounter Progress Notes * [...] PM EDT Discharge Medication Delivery Service DMD sewing pattern layout technician has delivered the following medications for Alesha Rose: Rx#[id number]:OXYCODONE 5 MG TABLET-5 mg EVERY 4 HOURS PRN Date/Time of Delivery: 11/11/2024 12:59 PM Delivered to: bedside table Please contact DMD sewing pattern layout technician with any questions. Thanks! Joyce Parker CPhT * Nancy He MD - 11/10/2024 10:51 AM EDT General Surgery Attending Progress Note CSN:[id number] NAME:Alesha Rose :1945 Impression/Plan: POD 3 s/p [...] AM EDT General Surgery Attending Progress Note CSN:[id number] NAME:Alesha Rose :1945 Impression/Plan: POD 2 s/p [...] Gran% 0.3 % Lymph Percent 20.0 % [place] Percent 8.6 % Eos Percent 0.4 % Baso Percent 0.2 % Neut # 7.1 (H) 1.6 - 6.1 x10(3)/mcL IMMGRAN# 0.0 0.0 - 0.1 x10(3)/mcL Lymph # 2.0 1.2 - 3.9 x10(3)/mcL [place] # 0.9 0.3 - 0.9 x10(3)/mcL Eos# [...] ECG INTERPRET NSR Imaging: No results found. Nancy He MD * Sandra Ponce RN - [...] for dc planning process Does patient need formulation chemist? No Activities of Daily Living Prior to [...] Discussed discharge plans with Care Team at [facility] Yes, with nurse in attendance [...] Pt states her PCP is Dr. Jayant Barrear. Note no PCP listed in [facility]. IDALIA called the [place] [facility] and had pt???s PCP updated in [facility]. Pt [facility] in [facility]. Pt states she can afford all her [...] and Rectal Surgery/General Surgery Postoperative Progress Note CSN:[id number] NAME:Alesha Rose :1945 Impression: S/p POD1 Robotic [...] Nova Bauer APRN- Colon and rectal surgery [facility] phone (E[facility]): [phone] Cosigned by Monica Arzola MD at 11/08/2024 [...] Monica Arzola MD Colon and Rectal Surgeon [facility] phone ([place]/ [place]): [phone] * Magalis Chavez RN - 11/08/2024 2:17 [...] NOTE PCP clearance obtained Valentino Carbajal APRN [facility] Source Note - Jennifer Ely APRN - 10/31/2024 10:30 AM EDT Images from the original note were not included. Colorectal Surgery Pre-op Visit Note CSN:[id number] NAME:Alesha Rose :1945 Impression: Nii Procedure 03/2024 [...] subsequent surgery and ostomy, post-operative ileus, VTE, [place], CVA, pneumonia, risk of , risk of [...] with the surgery. Medical clearance: Completed 09/17/2024 [facility] teaching: N/A Anticoagulation: Stop Eliquis 3 days [...] Sustained Release Take 90 mg by mouth. Zcliv-0-ZPI-EPA-Fish Oil (FISH OIL) 1,200 (144-216) mg Oral [...] Jennifer Ely APRN Colon and rectal surgery [facility] phone (EGD): [phone] documented in this encounter Procedure Notes * Monica Arzola MD - 11/07/2024 12:42 PM EDT [facility] OPERATIVE/PROCEDURE NOTE Alesha Rose November 07, 2024 [...] Arzola MD - 11/07/2024 12:31 PM EDT [facility] OPERATIVE/PROCEDURE NOTE ADMIT DATE: 10/08/2024 LOCATION: [facility] MAIN OR OR: EDG OR12 SURGERY DATE: 11/07/2024 PRE-OP DIAGNOSIS: Colostomy status (HCC) [Z93.3] POST-OP DIAGNOSIS: Colostomy status (HCC) [Z93.3] PROCEDURE(S): Procedure(s): Robotic nii reversal SURGEON: Surgeons and Role: * Monica Arzola MD - Primary ANESTHETIC: General STAFF: Ham Stringer: Triston Cisneros RN Physician Manager Patient: Jennifer Porter PA-C Relief Ham Stringer: Radha Kingsley RN Scrub Mcmullen: Joseline Moulton CST Scrub Assist: Tommy Hsu, AMADOR/FA Turn Over Director Of Curriculum: Amarilis Munguia RN; Екатерина Allison RN; Carisa Parks DIRECTOR MATERNAL CHILD 2nd Ham Stringer: Tommy Hsu RN/FA FINDINGS: White firm small [...] no other pathology was identified. A 19 Kyrgyz DALILA drain was placed into the pelvis [...] Monica Arzola MD Colon and Rectal Surgeon [facility] phone ([facility]): [phone] documented in this encounter Nursing Notes * Екатерина Lee RN - 10/31/2024 2:44 PM EDT PA at Primary Office called and said she cannot clear patient until MRI, EEG and labs are complete. EEG and Brain MRI requested from [facility] on 10/31 * Екатерина Lee RN - 10/31/2024 2:40 PM EDT REPORTS REQUEST ATTENTION:Medical Records PATIENT: Alesha Rose : 1945 This patient is scheduled for surgery on 11/07/2024 with Monica Galeana MD Anesthesia has requested the most recent results of the following tests: Most recent EEG and Brain MRI COMMENTS:_Thanks! Please fax to Pre-admission testing. PHONE # [phone] ATTENTION: [address] [address] documented in this encounter Miscellaneous Notes * Query Response Document - Monica Arzola MD - 11/11/2024 1:27 PM EDT [facility] CDI / HIM Coding Query Documentation PATIENT: ALESHA ROSE : 1945 ADMIT DATE: 11/07/2024 5:28 AM DISCH DATE: 11/11/2024 1:27 PM RESPONDING PROVIDER #: [id number] PROVIDER QUERY RESPONSE TEXT: The Provider disagrees [...] any questions, please contact Pipo Rajan @ [phone]) Options provided: -- Sigmoid colon was attached [...] Encounter FTT PERIOP [address] [place] [address] Leta Dupont MD [address] [place] [address] 01/16/2025 7:30 AM EST - 01/16/2025 9:05 AM EST Surgery [facility]TT PERIOP [address] [place] [address] Leta Dupont MD [address] [place] [address] [place] COLPOCLEISIS 02/26/2025 9:00 AM EST Office Visit [facility]ne[facility] [address] [id number] Antonina Ji PA-C [address] [place] [address] Pending Results Name Type Priority Associated Diagnoses [...] 11/07/2024 8:23 AM EDT Colostomy status (HCC) PA LAPS CLSR NTRSTM LG/SM INT W/RESCJ & [...] (11/11/2024 7:53 AM EDT) ECG INTERPRET NSR [facility] 11/11/2024 7:53 AM EDT Narrative [facility] - 11/11/2024 7:58 AM EDT EH - ROUTINE; IVCD PA 0.14 QRS 0.14 RR 0.75 QT 0.40 QTc 0.46 See Clinical Report link for waveform capture us Unknown Provider POINT OF CARE CARDIOLOGY Final Result [facility] [address] [place] [id number] * (ABNORMAL) CBC (11/11/2024 6:29 AM EDT) [...] Re sult [facility] [address], [place] [address] * ECG AND WAVEFORMS - TELEMETRY (11/10/2024 7:44 PM EDT) [facility] ECG INTERPRET NSR [facility] 11/10/2024 7:44 PM EDT Narrative [facility] - 11/10/2024 8:34 PM EDT IVCD SG PA 0.16 QRS 0.12 RR 0.83 QT 0.36 QTc 0.39 See Clinical Report link for waveform capture us Unknown Provider POINT OF CARE CARDIOLOGY Final Result [facility] [address] [place] [address] * (ABNORMAL) CBC (11/10/2024 6:11 [...] 11/10/2024 6:49 AM EDT [facility] Blood VENOUS BLOOD / Unknown Venipuncture / Unknown 11/10/2024 6:11 AM EDT 11/10/2024 6:35 AM EDT us Nancy He MD HEMATOLOGY ORDERABLES Final Re sult [facility] [address] [facility] , [place] [address] * (ABNORMAL) BASIC METABOLIC PANEL (11/09/2024 9:56 AM EDT) Sodium 134(L) 136 - 145 mmol/L 11/09/2024 10:55 AM EDT [facility] Potassium 3.7 3.5 - 5.0 mmol/L 11/09/2024 10:55 AM EDT [facility] Chloride 99 98 - 107 mmol/L 11/09/2024 10:55 AM EDT [facility] Total CO2 23 22 - 29 mmol/L 11/09/2024 10:55 AM EDT [facility] Anion Gap 12 7 - 16 mmol/L 11/09/2024 10:55 AM EDT [facility] Calcium 9.4 8.8 - 10.4 mg/dL 11/09/2024 10:55 AM EDT [facility] Glucose Lvl 111(H) 70 - 99 mg/dL 11/09/2024 10:55 AM EDT [facility] BUN 15 8 - 23 mg/dL 11/09/2024 10:55 AM EDT [facility] Creatinine 0.99 0.51 - 1.30 mg/dL 11/09/2024 10:55 AM EDT [facility] eGFR (CKD-EPIcr 2020) 58(L) >=60 mL/min/1.7 3 m2 11/09/2024 10:55 AM EDT [facility] Comment:Estimated GFR was ca lculated using the CKD-EPIcr (2020) equation refit without race. The equation is recommended by the National Kidney Foundation - [place] [employer] of Nephrology Task Force. Blood VENOUS BLOOD / Unknown Venipuncture / Unknown 11/09/2024 9:56 AM EDT 11/09/2024 10:20 AM EDT us Nancy He MD CHEMISTRY ORDERABLES Final Res ult [facility] [address] [facility] , [place] [address] * (ABNORMAL) CBC (11/09/2024 9:56 AM EDT) [...] ORDERABLES Final Re sult Performing Organization Address [facility]/ZIP Co de Phone Number [facility] [employer] [address] [facility], [place] [address] * ECG AND WAVEFORMS - TELEMETRY (11/09/2024 7:00 AM EDT) ECG INTERPRET NSR [facility] 11/09/2024 7:00 AM EDT Narrative [facility] - 11/09/2024 8:19 AM EDT ROUTINE SDP PA 0.17 QRS 0.12 RR 0.65 QT 0.35 See Clinical Report link for waveform capture us Unknown Provider POINT OF CARE CARDIOLOGY Final Result Performing Organization Address [facility] Co de Phone Number [facility] [address] [place] [address] * ECG AND WAVEFORMS - TELEMETRY (11/09/2024 5:12 AM EDT) ECG INTERPRET Sinus Arrythmia [facility] Comment:with non sustained v tach 11/09/2024 5:12 AM EDT Narrative [facility] - 11/09/2024 6:24 AM EDT IVCD W/6 BTS PJT (JX TACH) SG PA 0.14 QRS 0.13 QT 0.34 See Clinical Report link for waveform capture us Unknown Provider POINT OF CARE CARDIOLOGY Final Result Performing Organization Address [facility] Co de Phone Number [facility] [address] [place] [address] * ECG AND WAVEFORMS - TELEMETRY (11/08/2024 7:35 PM EDT) ECG INTERPRET NSR [facility] 11/08/2024 7:35 PM EDT Narrative [facility] - 11/08/2024 10:00 PM EDT PVC SG PA 0.16 QRS 0.14 RR 0.88 QT 0.38 QTc 0.41 See Clinical Report link for waveform capture us Unknown Provider POINT OF CARE CARDIOLOGY Final Result [facility] [address] [place] [address] * (ABNORMAL) BASIC METABOLIC PANEL [...] recommended by the National Kidney Foundation - [place] Society of Nephrology Task Force. Blood VENOUS BLOOD / Unknown Venipuncture / Unknown 11/08/2024 7:14 AM EDT 11/08/2024 7:32 AM EDT us Jennifer Porter PA-C CHEMISTRY ORDERABLES Final R esult [facility] [address] [facility], [address] [place] [id number] * (ABNORMAL) CBC WITH DIFF (11/08/2024 7:14 [...] 11/08/2024 7:47 AM EDT [facility] [place] Percent 8.6 % 11/08/2024 7:47 AM EDT [facility] Eos Percent 0.4 % 11/08/2024 7:47 AM EDT [facility] Baso Percent 0.2 % 11/08/2024 7:47 AM EDT [facility] Neut # 7.1(H) 1.6 - 6.1 x10(3)/[facility] 11/08/2024 7:47 AM EDT [facility] Comment:Neutrophils equals s egs plus bands IMMGRAN# 0.0 0.0 - 0.1 x10(3)/mcL 11/08/2024 7:47 AM EDT [facility] Comment:Automated count of m etamyelocytes, myelocytes and promyelocytes. An absolute IG <0.1 is reported as 0.0. Lymph # 2.0 1.2 - 3.9 x10(3)/mcL 11/08/2024 7:47 AM EDT [facility] [place] # 0.9 0.3 - 0.9 x10(3)/mcL 11/08/2024 7:47 AM EDT [facility] Eos# 0.0 0.0 - 0.5 x10(3)/mcL 11/08/2024 7:47 AM EDT [facility] Baso # 0.0 0.0 - 0.1 x10(3)/mcL 11/08/2024 7:47 AM EDT [facility] Blood VENOUS BLOOD / Unknown Venipuncture / Unknown 11/08/2024 7:14 AM EDT 11/08/2024 7:33 AM EDT us Jennifer Porter PA-C HEMATOLOGY ORDERABLES Final Result [facility] [address] [facility] , [place] [address] * ECG AND WAVEFORMS - TELEMETRY (11/08/2024 7:05 AM EDT) ECG INTERPRET NSR [facility] 11/08/2024 7:05 AM EDT Narrative [facility] - 11/08/2024 8:45 AM EDT IVCD/ROUTINE/MTS PA 0.15 QRS 0.12 RR 0.84 QT 0.38 QTc 0.41 See Clinical Report link for waveform capture us Unknown Provider POINT OF CARE CARDIOLOGY Final Result Performing Organization Address [facility]/ZIP Co de Phone Number [facility] [address] [place] [address] * ECG AND WAVEFORMS - TELEMETRY (11/07/2024 7:05 PM EDT) ECG INTERPRET NSR [facility] 11/07/2024 7:05 PM EDT Narrative [facility] - 11/07/2024 8:31 PM EDT ROUTINE/IVCD/al PA 0.16 QRS 0.16 RR 0.78 QT 0.43 QTc 0.48 See Clinical Report link for waveform capture us Unknown Provider POINT OF CARE CARDIOLOGY Final Result Performing Organization Address [facility] Co de Phone Number [facility] [address] [place] [address] * (ABNORMAL) GLUCOSE METER POC (11/07/2024 12:05 PM EDT) Glucose Meter POC 152(H) 70 - 100 mg/dL 11/07/2024 12:07 PM EDT [facility] Sample Type Capillary 11/07/2024 12:07 PM EDT [facility] Patient Status Non-Critical Patient 11/07/2024 12:07 PM EDT [facility] Blood BLOOD SPECIMEN / Unknown 11/07/2024 12:05 PM EDT 11/07/2024 12:07 PM EDT us Monica Arzola MD POINT OF CARE TEST ORDERABLES Fi nal Result Performing Organization Address [facility]/ZIP Co de Phone Number [facility] [address] [place] [address] * (ABNORMAL) GLUCOSE METER POC (11/07/2024 11:43 AM EDT) Glucose Meter POC 162(H) 70 - 100 mg/dL 11/07/2024 11:45 AM EDT [facility] Sample Type Capillary 11/07/2024 11:45 AM EDT [facility] Patient Status Non-Critical Patient 11/07/2024 11:45 AM EDT [facility] Blood BLOOD SPECIMEN / Unknown 11/07/2024 11:43 AM EDT 11/07/2024 11:45 AM EDT Monica Arzola MD POINT OF CARE TEST ORDERABLES Fi nal Result Performing Organization Address [facility] [place] [address] * (ABNORMAL) GLUCOSE METER POC (11/07/2024 9:05 AM EDT) Glucose Meter POC 136(H) 70 - 100 mg/dL 11/07/2024 9:07 AM EDT [facility] Sample Type Capillary 11/07/2024 9:07 AM EDT [facility] Patient Status Non-Critical Patient 11/07/2024 9:07 AM EDT [facility] Blood BLOOD SPECIMEN / Unknown 11/07/2024 9:05 AM EDT 11/07/2024 9:07 AM EDT Monica Arzola MD POINT OF CARE TEST ORDERAB[place] [address] * PATHOLOGY TISSUE REQUEST (11/07/2024 8:23 AM EDT) CASE REPORT Surgical Pathology Case: [id number] Authorizing Provider: Monica Arzola MD Collected: 11/07/2024 0823 Ordering Location: [facility] Received: 11/07/2024 0835 Pathologist: Levi Bedoya MD Intraop: Liliane Qureshi MD Specimens: A) - Omentum, Omental tissue B) - Colostomy Site, Colostomy Trim C) - Large Intestine, Rectum, Rectal Stump D) - Abdominal, fat necrosis E) - Abdominal, Anastamotic rings 11/12/2024 5:43 PM EDT [facility] FINAL DIAGNOSIS A. Omental tissue, resection: [...] atypia or malignancy. 11/12/2024 5:43 PM EDT [facility] at 1743 EDT GROSS DESCRIPTION A. [...] mucosa throughout the specimen is crocker-white, unremarkable. Rod Cup Filler sections are submitted in 1 cassette. INGA [...] masses, or areas of dehiscence are identified. Rod Cup Filler sections are submitted as follows: C1 = [...] material. Both tissues display unremarkable crocker-white mucosa. Rod Cup Filler sections are submitted in 1 cassette. INGA Dong PA (ASCP) 11/12/2024 5:43 PM EDT [facility] MICROSCOPIC DESCRIPTION The microscopic examination may have been rendered in whole, or in part, by analyzing high-resolution digital images (whole slide images) on the [employer] Digital Pathology platform validated at [facility]. 11/12/2024 5:43 PM EDT [facility] INTRAOPERATIVE CONSULTATION FSA. Negative for malignancy (fat necrosis and fuirucq-xpto-prq e giant cell reaction). AM to [place] 11/12/2024 5:43 PM EDT [facility] EMBEDDED IMAGES 5:43 PM EDT [facility] Tissue OMENTUM STRUCTURE / Unknown 11/07/2024 [...] ORDERABLES Final Resul t Performing Organization Address [facility] de Phone Number [facility] [address] [place] [address] [facility] [address] [place] [address] * (ABNORMAL) GLUCOSE METER POC (11/07/2024 7:13 AM EDT) Glucose Meter POC 106(H) 70 - 100 mg/dL 11/07/2024 7:14 AM EDT [facility] Sample Type Capillary 11/07/2024 7:14 AM EDT [facility] Patient Status Non-Critical Patient 11/07/2024 7:14 AM EDT [facility] Blood BLOOD SPECIMEN / Unknown 11/07/2024 7:13 AM EDT 11/07/2024 7:14 AM EDT us Monica Arzola MD POINT OF CARE TEST ORDERABLES Fi nal Result Performing Organization Address [facility] de Phone Number [address] [address] documented in this encounter Visit Diagnoses Diagnosis [...] Comment: 4000mg in 24h)2155 (Given - Provider: aKmron Baez RN) 0000 (Not Given - Provider: [...] 1230, Until Discontinued 1241 (Given - Provider: Fredreick Danielson RN)2102 (Given - Provider: Kamron Baez [...] Provider: Emily Angel RN)2155 (Given - Provider: Kmaron Baez RN) 0507 (Given - Provider: Kamron [...] 11/11/2024 documented in this encounter Care Teams Director Of Curriculum Relationship Specialty Start Date End Date Chas Barrera [address] [place] [address] PCP - General Family Medicine 11/08/24 documented as of this encounter
--- OUTSIDE RECORDS SUMMARY | 2024-11-07 07:30 | XMS_ITS | Encounter Summary ---
Author Organization [place] [address] Care Team Providers Care Ex Assistant/Program Director Name Role Phone Unavailable Primary Care Provider Unavailabl e Reason for Visit * Auth/Cert/Inpt Specialty Diagnoses / Procedures Referred By Contamairani t Referred To Contact Diagnoses Colostomy status (HCC) Colostomy status (HCC) [Z93.3] Procedures WA LAPS CLSR NTRSTM LG/SM INT W/RESCJ & ANASTOMOSIS Robotic nii reversal Referral ID Status Reason Start Date Expiration Date Visits Re quested Visits Authorized [id number] 1 1 Encounter Details Date Type Department Care Team (Late st Contact Info) Description 11/07/2024 7:30 AM EDT - 11/07/2024 11:50 AM EDT Surgery [facility]G PERIOP [facility] [place] [address] Monica Arzola MD [address] [place] [address] [address] [place] [address] DAVINCI ROBOTIC REVERSAL NII POUCH Surgery Details Date/Time Status Location OR Service Patient Class Case Class Case Type Trauma Case? 11/07/2024 7:30 AM Posted EDG MAIN OR EDG Room 12- DV5 General Surgery Admit Elective Panel 1 Procedure LRB Anes Op Region Wound Class Comments DAVINCI ROBOTIC REVERSAL NII POUCH N/A General Contaminated Robotic nii reversal Surgeon Surgeon Role Service Panel Monica Arzola MD Primary General 1 Special Needs th documented in this encounter Social History Tobacco Use Types Packs/Day Years Used Date Smoking Tobacco: Never Smokeless Tobacco: Never Alcohol Use Standard Drinks/Week Comments Not Currently 0 (1 standard drink = 0.6 oz pur e alcohol) [facility] Utilities Answer Date Recorded In the past 12 months has th e electric, gas, oil, or water company threatened to shut off services in your home? No 11/08/2024 Overall Financial Resource Strain (CARDIA) Answe r Date Recorded How hard is it for you to pa y for the very basics like food, housing, medical care, and heating? Not hard at all 11/08/2024 PHQ-2 Answer Date Recorded PHQ-2 Total Score 0 11/08/2024 [facility] - Occupational Stress [...] money to get more. Never true 11/08/2024 [facility] HRSN [facility] IP Transportation Answer D ate Recorded In [...] Sign Reading Time Taken Comments Blood Pressure 164/83 11/07/2024 5:46 AM EDT Pulse 60 11/07/2024 5:46 AM EDT Temperature 36.6 C (97.8 F) 11/07/2024 5:46 AM EDT Respiratory Rate 16 11/07/2024 5:46 AM EDT Oxygen Saturation 99% 11/07/2024 5:46 AM EDT Inhaled Oxygen Concentration - - Weight 51.1 kg (112 lb 9 oz) 11/07/2024 5:46 AM EDT Height 147.3 cm (4' 10 ) 11/07/2024 5:46 AM EDT Body Mass Index 23.53 11/07/2024 5:46 AM EDT documented in this encounter Discharge Summaries * Regino Lopez MD - 11/11/2024 11:39 AM EDT [facility] Discharge Summary Patient Name: Alesha Rose [...] (144-216) mg Cap Refills: 0 Generic drug: Houzf-9-AIQ-EPA-Fish Oil Magnesium 200 mg Tab Refills: 0 [...] Your Medications These medications were sent to [facility] [address] [place] [address] Hours: Monday-Monday 8:00am - 6:30pm Monday-Monday 9:00am [...] * How to use an incentive spirometer (Palauan) documented in this encounter Medications at Time [...] Sustained Release Take 90 mg by mouth. Awskv-9-HJY-EPA- Fish Oil (FISH OIL) 1,200 (144-216) mg [...] Means Destination Comment s Home or Self [facility]ci documented in this encounter Progress Notes * [...] PM EDT Discharge Medication Delivery Service DMD rv technician has delivered the following medications for Alesha Rose: Rx#[id number]:OXYCODONE 5 MG TABLET-5 mg EVERY 4 HOURS PRN Date/Time of Delivery: 11/11/2024 12:59 PM Delivered to: bedside table Please contact DMD rv technician with any questions. Thanks! Joyce Parker CPhT * Nancy He MD - 11/10/2024 10:51 AM EDT General Surgery Attending Progress Note CSN:[id number] NAME:Alesha Rose :1945 Impression/Plan: POD 3 s/p [...] results found. Nancy He MD * Emily Angel RN - 11/09/2024 7:51 PM EDT VSS. Standby assist in room and sexton. Up to chair. Reports gas. No complaints of pain. Abdomen distended. Tolerating diet. No BM this shift. DALILA with output- leaking at site noted. Safety precautions in place. * Nancy He MD - 11/09/2024 10:13 AM EDT General Surgery Attending Progress Note CSN:[id number] NAME:Alesha Rose :1945 Impression/Plan: POD 2 s/p [...] Gran% 0.3 % Lymph Percent 20.0 % Weakley Percent 8.6 % Eos Percent 0.4 % Baso Percent 0.2 % Neut # 7.1 (H) 1.6 - 6.1 x10(3)/mcL IMMGRAN# 0.0 0.0 - 0.1 x10(3)/mcL Lymph # 2.0 1.2 - 3.9 x10(3)/mcL Weakley # 0.9 0.3 - 0.9 x10(3)/mcL Eos# [...] for dc planning process Does patient need land manager? No Activities of Daily Living Prior to [...] Discussed discharge plans with Care Team at [facility] Yes, with nurse in attendance Patient's goals [...] Jayant Barrera. Note no PCP listed in [facility]. IDALIA called the [place] [facility] and had pt???s PCP updated in [facility]. Pt [facility]. Pt states she can afford all her [...] and Rectal Surgery/General Surgery Postoperative Progress Note CSN:[id number] NAME:Alesha Rose :1945 Impression: S/p POD1 Robotic [...] Nova Bauer APRN- Colon and rectal surgery [facility] phone (EGD): [phone] Cosigned by Monica Arzola MD at 11/08/2024 [...] Monica Arzola MD Colon and Rectal Surgeon [facility] phone ([place]/ [place]): [phone] * Magalis Chavez RN - 11/08/2024 2:17 [...] NOTE PCP clearance obtained Valentino Carbajal APRN [facility] Source Note - Jennifer Ely APRN - 10/31/2024 10:30 AM EDT Images from the original note were not included. Colorectal Surgery Pre-op Visit Note CSN:[id number] NAME:Alesha Rose :1945 Impression: Nii Procedure 03/2024 [...] subsequent surgery and ostomy, post-operative ileus, VTE, IN, CVA, pneumonia, risk of , risk of [...] with the surgery. Medical clearance: Completed 09/17/2024 [facility] teaching: N/A Anticoagulation: Stop Eliquis 3 [...] Sustained Release Take 90 mg by mouth. Bdpou-4-RKR-EPA-Fish Oil (FISH OIL) 1,200 (144-216) mg Oral [...] Jennifer Ely APRN Colon and rectal surgery [facility] phone (EGD): [phone] documented in this encounter Procedure Notes * Monica Arzola MD - 11/07/2024 12:42 PM EDT [facility] OPERATIVE/PROCEDURE NOTE Alesha Rose November [birth year], [...] Arzola MD - 11/07/2024 12:31 PM EDT [facility] OPERATIVE/PROCEDURE NOTE ADMIT DATE: 10/08/2024 LOCATION: EDG MAIN OR OR: EDG OR12 SURGERY DATE: 11/07/2024 PRE-OP DIAGNOSIS: Colostomy status (HCC) [Z93.3] POST-OP DIAGNOSIS: Colostomy status (HCC) [Z93.3] PROCEDURE(S): Procedure(s): Robotic nii reversal SURGEON: Surgeons and Role: * Monica Arzola MD - Primary ANESTHETIC: General STAFF: Aviation Technical Systems Specialist: Triston Cisneros RN Physician Herb Digger: Jennifer Porter PA-C Relief Aviation Technical Systems Specialist: Radha Kingsley RN Scrub Mcmullen: Joseline Moulton CST Scrub Assist: Tommy Hsu RN/FA Turn Over Ex Assistant/Program Director: Amarilis Munguia, AMADOR; Екатерина Allison RN; Carisa Parks MIXER ATTENDANT 2nd Aviation Technical Systems Specialist: Tommy Hsu RN/FA FINDINGS: White firm small [...] no other pathology was identified. A 19 Bruneian DALILA drain was placed into the pelvis [...] Monica Arzola MD Colon and Rectal Surgeon [facility] Office phone ([place]/ [place]): [phone] documented in this encounter Nursing Notes * Екатерина Lee RN - 10/31/2024 2:44 PM EDT PA at Primary Office called and said she cannot clear patient until MRI, EEG and labs are complete. [facility] * Екатерина Lee RN - 10/31/2024 2:40 PM EDT REPORTS REQUEST ATTENTION:Medical Records PATIENT: Alesha Rose : 1945 This patient is scheduled for surgery on 11/07/2024 with Monica Galeana MD Anesthesia has requested the most recent results of the following tests: Most recent EEG and Brain MRI COMMENTS:_Thanks! Please fax to Pre-admission testing. PHONE # [phone] ATTENTION: [address] [address] documented in this encounter Miscellaneous Notes * Query Response Document - Monica Arzola MD - 11/11/2024 1:27 PM EDT [facility] / [facility] Coding Query Documentation PATIENT: ALESHA ROSE : 1945 ADMIT DATE: 11/07/2024 5:28 AM DISCH DATE: 11/11/2024 1:27 PM RESPONDING PROVIDER #: [phone] PROVIDER QUERY RESPONSE TEXT: The Provider disagrees [...] any questions, please contact Pipo Rajan @ [phone]) Options provided: -- Sigmoid colon was attached [...] Encounter [facility] PERIOP [address] [place] [address] Leta Dupont MD [address] [place] [phone] 01/16/2025 7:30 AM EST - 01/16/2025 9:05 AM EST Surgery [facility] PERIOP [address] [place] [address] Leta Dupont MD [address] [place] [id number] [place] COLPOCLEISIS 02/26/2025 9:00 AM EST Office Visit [facility] [address] [address] Antonina Ji PA-C [address] [place] [address] Pending Results Name Type Priority Associated Diagnoses [...] 11/07/2024 8:23 AM EDT Colostomy status (HCC) WA LAPS CLSR NTRSTM LG/SM INT W/RESCJ & [...] (11/11/2024 7:53 AM EDT) ECG INTERPRET NSR [facility] 11/11/2024 7:53 AM EDT Narrative [facility] - 11/11/2024 7:58 AM EDT EH - ROUTINE; IVCD WA 0.14 QRS 0.14 RR 0.75 QT 0.40 QTc 0.46 See Clinical Report link for waveform capture us Unknown Provider POINT OF CARE CARDIOLOGY Final Result [place] [id number] * (ABNORMAL) CBC (11/11/2024 6:29 AM EDT) [...] Re sult [facility] [address], [place] [address] * ECG AND WAVEFORMS - TELEMETRY (11/10/2024 7:44 PM EDT) [facility] ECG INTERPRET NSR [facility] 11/10/2024 7:44 PM EDT Narrative [facility] - 11/10/2024 8:34 PM EDT IVCD SG WA 0.16 QRS 0.12 RR 0.83 QT 0.36 QTc 0.39 See Clinical Report link for waveform capture us Unknown Provider POINT OF CARE CARDIOLOGY Final Result [facility] 1 [place] [address] * (ABNORMAL) CBC (11/10/2024 6:11 AM EDT) [facility] WBC 7.7 3.7 - 10.3 x10(3)/mcL [...] 11/10/2024 6:49 AM EDT [facility] Blood VENOUS BLOOD / Unknown Venipuncture / Unknown 11/10/2024 6:11 AM EDT 11/10/2024 6:35 AM EDT us Nancy He MD HEMATOLOGY ORDERABLES Final Re sult [facility] [address] [facility] [facility] , [place] [address] * (ABNORMAL) BASIC METABOLIC PANEL (11/09/2024 9:56 AM EDT) Sodium 134(L) 136 - 145 mmol/L 11/09/2024 10:55 AM EDT [facility] Potassium 3.7 3.5 - 5.0 mmol/L 11/09/2024 10:55 AM EDT [facility] Chloride 99 98 - 107 mmol/L 11/09/2024 10:55 AM EDT [facility] Total CO2 23 22 - 29 mmol/L 11/09/2024 10:55 AM EDT [facility] Anion Gap 12 7 - 16 mmol/L 11/09/2024 10:55 AM EDT [facility] Calcium 9.4 8.8 - 10.4 mg/dL 11/09/2024 10:55 AM EDT [facility] Glucose Lvl 111(H) 70 - 99 mg/dL 11/09/2024 10:55 AM EDT [facility] BUN 15 8 - 23 mg/dL 11/09/2024 10:55 AM EDT [facility] Creatinine 0.99 0.51 - 1.30 mg/dL 11/09/2024 10:55 AM EDT [facility] eGFR (CKD-EPIcr 2020) 58(L) >=60 mL/min/1.7 3 m2 11/09/2024 10:55 AM EDT [facility] Comment:Estimated GFR was ca lculated using the CKD-EPIcr (2020) equation refit without race. The equation is recommended by the National Kidney Foundation - [place] [employer] of Nephrology Task Force. Blood VENOUS BLOOD / Unknown Venipuncture / Unknown 11/09/2024 9:56 AM EDT 11/09/2024 10:20 AM EDT us Nancy He MD CHEMISTRY ORDERABLES Final Res ult [facility] [address] , [place] [address] * (ABNORMAL) CBC (11/09/2024 9:56 AM EDT) [...] ORDERABLES Final Re sult Performing Organization Address City/[facility] Co de Phone Number [facility] [address] [facility], [place] [address] * ECG AND WAVEFORMS - TELEMETRY (11/09/2024 7:00 AM EDT) ECG INTERPRET R [facility] 11/09/2024 7:00 AM EDT Narrative [facility] - 11/09/2024 8:19 AM EDT ROUTINE SDP WA 0.17 QRS 0.12 RR 0.65 QT 0.35 See Clinical Report link for waveform capture us Unknown Provider POINT OF CARE CARDIOLOGY Final Result Performing Organization Address [facility] de Phone Number [facility] [address] [place] [address] * ECG AND WAVEFORMS - TELEMETRY (11/09/2024 5:12 AM EDT) ECG INTERPRET Sinus Arrythmia [facility] Comment:with non sustained v tach 11/09/2024 5:12 AM EDT Narrative [facility] - 11/09/2024 6:24 AM EDT IVCD W/6 BTS PJT (JX TACH) SG WA 0.14 QRS 0.13 QT 0.34 See Clinical Report link for waveform capture us Unknown Provider POINT OF CARE CARDIOLOGY Final Result Performing Organization Address [facility] Co de Phone Number [facility] [address] [place] [address] * ECG AND WAVEFORMS - TELEMETRY (11/08/2024 7:35 PM EDT) ECG INTERPRET NSR [facility] 11/08/2024 7:35 PM EDT Narrative [facility] - 11/08/2024 10:00 PM EDT PVC SG WA 0.16 QRS 0.14 RR 0.88 QT 0.38 QTc 0.41 See Clinical Report link for waveform capture us Unknown Provider POINT OF CARE CARDIOLOGY Final Result [facility] [address] [place] [address] * (ABNORMAL) BASIC METABOLIC PANEL [...] recommended by the National Kidney Foundation - [place] [employer] of Nephrology Task Force. Blood VENOUS BLOOD / Unknown Venipuncture / Unknown 11/08/2024 7:14 AM EDT 11/08/2024 7:32 AM EDT us Jennifer Porter PA-C CHEMISTRY ORDERABLES Final R esult [facility] [address] [facility] , [place] [address] * (ABNORMAL) CBC WITH DIFF (11/08/2024 7:14 [...] 11/08/2024 7:47 AM EDT [facility] Weakley Percent 8.6 % 11/08/2024 7:47 AM EDT [facility] Eos Percent 0.4 % 11/08/2024 7:47 AM EDT [facility] Baso Percent 0.2 % 11/08/2024 7:47 AM EDT [facility] Neut # 7.1(H) 1.6 - 6.1 x10(3)/mcL 11/08/2024 7:47 AM EDT [facility] Comment:Neutrophils equals s egs plus bands IMMGRAN# 0.0 0.0 - 0.1 x10(3)/mcL 11/08/2024 7:47 AM EDT [facility] Comment:Automated count of m etamyelocytes, myelocytes and promyelocytes. An absolute IG <0.1 is reported as 0.0. Lymph # 2.0 1.2 - 3.9 x10(3)/mcL 11/08/2024 7:47 AM EDT [facility] Weakley # 0.9 0.3 - 0.9 x10(3)/mcL 11/08/2024 7:47 AM EDT [facility] Eos# 0.0 0.0 - 0.5 x10(3)/mcL 11/08/2024 7:47 AM EDT [facility] Baso # 0.0 0.0 - 0.1 x10(3)/mcL 11/08/2024 7:47 AM EDT [facility] Blood VENOUS BLOOD / Unknown Venipuncture / Unknown 11/08/2024 7:14 AM EDT 11/08/2024 7:33 AM EDT us Jennifer Porter PA-C HEMATOLOGY ORDERABLES Final Result [facility] [address] [facility] , [place] [address] * ECG AND WAVEFORMS - TELEMETRY (11/08/2024 7:05 AM EDT) Pathologist [facility] ECG INTERPRET NSR [facility] 11/08/2024 7:05 AM EDT Narrative [facility] - 11/08/2024 8:45 AM EDT IVCD/ROUTINE/MTS WA 0.15 QRS 0.12 RR 0.84 QT 0.38 QTc 0.41 See Clinical Report link for waveform capture us Unknown Provider POINT OF CARE CARDIOLOGY Final Result Performing Organization Address City/[facility]/ZIP Co de Phone Number [facility] [address] [place] [address] * ECG AND WAVEFORMS - TELEMETRY (11/07/2024 7:05 PM EDT) ECG INTERPRET NSR [facility] 11/07/2024 7:05 PM EDT Narrative [facility] - 11/07/2024 8:31 PM EDT ROUTINE/IVCD/al WA 0.16 QRS 0.16 RR 0.78 QT 0.43 QTc 0.48 See Clinical Report link for waveform capture us Unknown Provider POINT OF CARE CARDIOLOGY Final Result Performing Organization Address [facility] Co de Phone Number [facility] [address] [place] [address] * (ABNORMAL) GLUCOSE METER POC (11/07/2024 12:05 PM EDT) Glucose Meter POC 152(H) 70 - 100 mg/dL 11/07/2024 12:07 PM EDT [facility] Sample Type Capillary 11/07/2024 12:07 PM EDT [facility] Patient Status Non-Critical Patient 11/07/2024 12:07 PM EDT [facility] Blood BLOOD SPECIMEN / Unknown 11/07/2024 12:05 PM EDT 11/07/2024 12:07 PM EDT us Monica Arzola MD POINT OF CARE TEST ORDERABLES Fi nal Result Performing Organization Address City/[facility]/ZIP Co de Phone Number [facility] [address] [place] [address] * (ABNORMAL) GLUCOSE METER POC (11/07/2024 11:43 AM EDT) Glucose Meter POC 162(H) 70 - 100 mg/dL 11/07/2024 11:45 AM EDT [facility] Sample Type Capillary 11/07/2024 11:45 AM EDT [facility] Patient Status Non-Critical Patient 11/07/2024 11:45 AM EDT [facility] Blood BLOOD SPECIMEN / Unknown 11/07/2024 11:43 AM EDT 11/07/2024 11:45 AM EDT Monica Arzola MD POINT OF CARE TEST ORDERABLES Fi nal Result Performing Organization Address [facility] [place] [address] * (ABNORMAL) GLUCOSE METER POC (11/07/2024 9:05 AM EDT) Glucose Meter POC 136(H) 70 - 100 mg/dL 11/07/2024 9:07 AM EDT [facility] Sample Type Capillary 11/07/2024 9:07 AM EDT [facility] Patient Status Non-Critical Patient 11/07/2024 9:07 AM EDT [facility] Blood BLOOD SPECIMEN / Unknown 11/07/2024 9:05 AM EDT 11/07/2024 9:07 AM EDT Monica Arzola MD POINT OF CARE TEST [place] [address] * PATHOLOGY TISSUE REQUEST (11/07/2024 8:23 AM EDT) CASE REPORT Surgical Pathology Case: [id number] Authorizing Provider: Monica Arzola MD Collected: 11/07/2024 0823 Ordering Location: [facility] Received: 11/07/2024 0835 Pathologist: Levi Bedoya MD Intraop: Liliane Qureshi MD Specimens: A) - Omentum, Omental tissue B) - Colostomy Site, Colostomy Trim C) - Large Intestine, Rectum, Rectal Stump D) - Abdominal, fat necrosis E) - Abdominal, Anastamotic rings 11/12/2024 5:43 PM EDT [facility] FINAL DIAGNOSIS A. Omental tissue, resection: [...] atypia or malignancy. 11/12/2024 5:43 PM EDT [facility] at 1743 EDT GROSS DESCRIPTION A. [...] mucosa throughout the specimen is crocker-white, unremarkable. Scrub Technician sections are submitted in 1 cassette. INGA [...] masses, or areas of dehiscence are identified. Scrub Technician sections are submitted as follows: C1 = [...] material. Both tissues display unremarkable crocker-white mucosa. Scrub Technician sections are submitted in 1 cassette. INGA Dong PA (ASCP) 11/12/2024 5:43 PM EDT [facility] MICROSCOPIC DESCRIPTION The microscopic examination may have been rendered in whole, or in part, by analyzing high-resolution digital images (whole slide images) on the [employer] Digital Pathology platform validated at [facility]. 11/12/2024 5:43 PM EDT [facility] INTRAOPERATIVE CONSULTATION FSA. Negative for malignancy (fat necrosis and stjflnh-eeae-nmx e giant cell reaction). AM to [place] 11/12/2024 5:43 PM EDT [facility] EMBEDDED IMAGES 5:43 PM EDT [facility] Tissue OMENTUM STRUCTURE / Unknown 11/07/2024 [...] ORDERABLES Final Resul t Performing Organization Address City/[facility] de Phone Number [facility] [address] [phone] [facility] [address] [place] [id number] * (ABNORMAL) GLUCOSE METER POC (11/07/2024 7:13 AM EDT) Glucose Meter POC 106(H) 70 - 100 mg/dL 11/07/2024 7:14 AM EDT [facility] Sample Type Capillary 11/07/2024 7:14 AM EDT [facility] Patient Status Non-Critical Patient 11/07/2024 7:14 AM EDT [facility] Blood BLOOD SPECIMEN / Unknown 11/07/2024 7:13 AM EDT 11/07/2024 7:14 AM EDT us Monica Arzola MD POINT OF CARE TEST ORDERABLES Fi nal Result Performing Organization Address [facility] de Phone Number [address] [address] documented in this encounter Visit Diagnoses Diagnosis Colostomy status (HCC)- Primary Colostomy status Uterovaginal prolapse, incomplete- Primary Colostomy status (HCC) Colostomy status Uterovaginal prolapse, incomplete documented in this encounter Admitting Diagnoses Diagnosis Colostomy status (HCC) Colostomy status documented in this encounter Administered Medications Inactive Administered Medications - up to 1 most recent administrations Medication Order MAR Action Action Date Dose Rate Site acetaminophen (TYLENOL) tablet 1,000 mg 1,000 mg, [...] Given 11/11/2024 6:05 AM EDT 1,000 mg apixaban (ELIQUIS) tablet 5 mg 5 mg, Oral, 2 TIMES DAILY, First dose on [place] 11/10/24 at 1230, Until Discontinued Given 11/11/2024 8:55 AM EDT 5 mg atorvastatin (LIPITOR) tablet 10 mg 10 mg, Oral, DAILY, First dose on [facility] 11/07/24 at 1230, Until Discontinued Given 11/11/2024 8:53 AM EDT 10 mg bupivacaine (MARCAINE/SENSORCAINE) 0.5 % (5 mg/mL) injection INTRAPROCEDURE, Starting on [facility] 11/07/24 at 0830, Until [facility] 11/07/24 at 1403, Intra-op Given 11/07/2024 8:30 AM EDT 30 mL Abdominal Tissue BUPivacaine liposome (PF) (EXPAREL) 1.3 % (13.3 mg/mL) 20 mL injection 20 mL, INTRAPROCEDURE, Starting on [facility] 11/07/24 at 0830, Until [facility] 11/07/24 at 1403, Intra-op Given 11/07/2024 8:30 AM EDT 20 mL Abdominal Tissue carvediloL (COREG) tablet 12.5 mg 12.5 mg, Oral, 2 TIMES DAILY WITH MEALS, First dose on [facility] 11/07/24 at 1800, Until Discontinued, Take with a meal. Given 11/11/2024 8:55 AM EDT 12.5 mg dicyclomine (BENTYL) capsule 10 mg 10 mg, Oral, 4 TIMES DAILY BEFORE MEAL, First dose (after last modification) on [facility] 11/09/24 at 0130, Until Discontinued Given 11/11/2024 10:09 AM EDT 10 mg lidocaine (ASPERCREME) 4 % patch 1 Patch 1 Patch, Transdermal, EVERY 12 HOURS SCHEDULED (2 times per day), First dose on [facility] 11/07/24 at 2100, Until Discontinued, Remove patch after [...] 11/07/24 at 1505, Until Mon11/11/24 at 1727, Nausea, Vomiting, Post-op Given 11/09/2024 12:20 AM EDT 4 mg oxyCODONE (ROXICODONE) immediate release tablet 5-10 mg 5-10 mg, Oral, EVERY 4 HOURS PRN, Starting on Yohana 11/07/24 at 1505, Until Mon11/11/24 at 1727, Pain, Begin with lowest dose unless otherwise directed. Reassess pain in one hour. If pain unrelieved, remainder of dose may be given to patient., Post-op Given 11/08/2024 1:52 PM EDT 10 mg sodium chloride 0.9% IV line flush [...] (2 times per day), First dose on 11/09/24 at 0030, Until Discontinued, Flush with 3-5 [...] 11/11/2024 polyethylene glycol (GLYCOLAX) 17 gram/dose Oral PowderIndications:[place] rovaginal prolapse, incomplete Begin Miralax, 17 g [...] Reason: Sedated/Sleeping)060 5 (Given - Provider: Kamron Baze RN)1313 (Not Given - Provider: Fariba Easton [...] Baez RN) 0855 (Given - Provider: Fariba Easton, AMADOR) atorvastatin (LIPITOR) tablet 10 mg 10 mg, Oral, DAILY, First dose on Mon11/07/24 at 1230, Until Discontinued 0917 (Given - Provider: Emily Angel RN) 0855 (Given - Provider: Frederick Danielson, AMADOR) 0853 (Given - Provider: Fariba Easton, AMADOR) carvediloL (COREG) tablet 12.5 mg 12.5 mg, Oral, 2 TIMES DAILY WITH MEALS, First dose on Yohana 11/07/24 at 1800, Until Discontinued, Take with a meal. 0917 (Given - Provider: Emily Angel RN)1722 (Given - Provider: Emily Angel RN) 0855 (Given - Provider: Frederick Danielson RN)1807 (Given - Provider: Frederick Danielson, AMADOR) 0855 (Given - Provider: Fariba Easton, AMADOR) dicyclomine (BENTYL) capsule 10 mg 10 mg, Oral, 4 TIMES DAILY BEFORE MEAL, First dose (after last modification) on 11/09/24 at 0130, Until Discontinued 0133 (Given - Provider: Sandra Ponce RN)0656 (Given - Provider: Sandra Ponce RN)0951 (Given - Provider: Emily Angel RN)1722 (Given - Provider: Emily Angel RN)2155 (Given - Provider: Kamron Baez RN) 0507 (Given - Provider: Kamron Baez RN)1033 (Given - Provider: Frederick Danielson, AMADOR)1603 (Given - Provider: Frederick Danielson, AMADOR)2102 (Given - Provider: Kamron Baez RN) 0606 (Given - Provider: Kamron Baez RN)1009 (Given - Provider: Fariba Easton, AMADOR) lidocaine (ASPERCREME) 4 % patch 1 Patch 1 Patch, Transdermal, EVERY 12 HOURS SCHEDULED (2 times per day), First dose on Yohana 11/07/24 at 2100, Until Discontinued, Remove patch after 12 hours, Administer over 12 Hours, Application site: abdomen, Post-op 0857 (Patch Removed - Provider: Emily Angel RN)0918 (Patch Applied - Provider: Emily Angel RN)2058 (Patch Removed - Provider: Kamron Baez RN)215 (Patch Applied - Provider: Kamron Baez RN) 0854 (Patch Applied - Provider: Frederick Danielson RN)08 (Patch Removed - Provider: Frederick Danielson, RN)2053 (Patch Removed - Provider: Kamron Baez RN)2099 (Not Given - Provider: Kamron Baez RN - Reason: Patient Declined) 0858 (Not Given - Provider: Fariba Easton RN - Reason: Patient Declined) NIFEdipine (PROCARDIA XL) CR tablet 90 mg 90 mg, Oral, DAILY, First dose on Mon11/08/24 at 0900, Until Discontinued 09 (Given - Provider: Emily Angel RN) 0855 (Given - Provider: Frederick Danielson RN) 0854 (Given - Provider: Fariba Easton, AMADOR) sodium chloride 0.9% syringe Intravenous, EVERY 12 HOURS SCHEDULED (2 times per day), First dose on Mon11/09/24 at 0030, Until Discontinued, Flush with 3-5 mL saline for PERIPHERAL saline lock maintenance. 0008 (Given - Provider: Sandra Ponce RN)918 (Given - Provider: Emily Angel RN)2113 (Given - Provider: Kamron Baez RN) 854 (Given - Provider: Frederick Danielson RN)2099 (Not Given - Provider: Kamron Baez RN [...] 11/07/24 at 1505, Until Mon11/11/24 at 1727, Nausea, Vomiting, Post-op 0020 (Given - Provider: Sandra Ponce RN) oxyCODONE (ROXICODONE) immediate release tablet 5-10 mg 5-10 mg, Oral, EVERY 4 HOURS PRN, Starting on Yohana 11/07/24 at 1505, Until Mon11/11/24 at 1727, Pain, [...] Count Last Ordered Date First Ordered Date apixaban (ELIQUIS) tablet 5 mg 1 11/10/2024 dicyclomine (BENTYL) capsule 10 mg 2 2024 sodium chloride 0.9% IV line flush 20-50 mL 1 11/08/2024 sodium chloride 0.9% syringe 2 11/08/2024 acetaminophen (OFIRMEV) infusion 1,000 mg 1 11/07/2024 acetaminophen (TYLENOL) tablet 1,000 mg 2 0 11/07/2024 11/06/2024 alvimopan (ENTEREG) capsule 12 mg 2 025 11/06/2024 atorvastatin (LIPITOR) tablet 10 mg 1 11/07 carvediloL (COREG) tablet 12.5 mg 1 dimenhyDRINATE (DRAMAMINE) 1 2.5-50 mg in sodium chloride 0.9% injection 1 11/07/2024 droPERidol (INAPSINE) injection 0.625 mg 1 11/07/2024 enoxaparin (LOVENOX) injection 40 mg 1 10/12 fentaNYL (SUBLIMAZE) injection 50 mcg 1 HYDROmorphone (DILAUDID) injection 0.25 mg 1 11/07/2024 insulin aspart U-100 (NovoLO G) injection 1-5 Units 1 11/07/2024 ketorolac (ACULAR) 0.5 % oph thalmic solution 1 Drop 1 11/07/2024 labetaloL (NORMODYNE) injection 10 mg 1 lactated ringers infusion 2 11/07/2024 lidocaine (ASPERCREME) 4 % patch 1 Patch 1 11/07/2024 morphine injection 2 mg 1 11/07/2024 morphine injection 4 mg 1 11/07/2024 NIFEdipine (ADALAT CC) CR tablet 90 mg 1 NIFEdipine (PROCARDIA XL) CR tablet 90 mg 1 11/07/2024 ondansetron (ZOFRAN) injection 4 mg 2 11/07 ondansetron (ZOFRAN-ODT) dis integrating tablet 8 mg 1 11/07/2024 oxyCODONE (ROXICODONE) immed iate release tablet 5 mg 1 11/07/2024 oxyCODONE (ROXICODONE) immed iate release tablet 5-10 mg 1 11/07/2024 pantoprazole (PROTONIX) 40 m g in sodium chloride 0.9% 10 mL injection 1 11/07/2024 promethazine (PHENERGAN) 12. 5 mg in sodium chloride 0.9% 10 mL injection 1 11/07/2024 promethazine (PHENERGAN) 6.2 5 mg in sodium chloride 0.9% 10 mL injection 1 11/07/2024 aprepitant (EMEND) capsule 40 mg 1 11/07/19 25 ceFAZolin (ANCEF) IVPB 2 g 1 11/06/2024 chlorhexidine (HIBICLENS) 4 % liquid 1 10/12 granisetron (KYTRIL) injection 1 mg 1 11/06 heparin (porcine) injection 5,000 Units 1 0 11/06/2024 metroNIDAZOLE (FLAGYL) IVPB 500 mg 1 2024 Nursing Count Last Ordered Date First Orde red Date PEREZ CATHETER - DISCONTINUE 1 11/08/2024 Admission Count Last Ordered Date First Orde red Date ADMIT 1 11/07/2024 Discharge Count Last Ordered Date First Orde red Date DISCHARGE PATIENT 1 11/11/2024 documented in this encounter
--- OUTSIDE RECORDS SUMMARY | 2024-11-07 07:30 | XMS_ITS | Encounter Summary ---
Author Organization [place] [address] Care Team Providers Care Foreign Exchange Services Manager Name Role Phone Unavailable Primary Care Provider Unavailabl e Reason for Visit * Auth/Cert/Inpt Specialty Diagnoses / Procedures Referred By Contamairani t Referred To Contact Diagnoses Colostomy status (HCC) Colostomy status (HCC) [Z93.3] Procedures RI LAPS CLSR NTRSTM LG/SM INT W/RESCJ & ANASTOMOSIS Robotic nii reversal Referral ID Status Reason Start Date Expiration Date Visits Re quested Visits Authorized [id number] 1 1 Encounter Details Date Type Department Care Team (Late st Contact Info) Description 11/07/2024 7:30 AM EDT - 11/07/2024 11:50 AM EDT Surgery EDG PERIOP [facility] [place] [address] Monica Arzola MD [address] [place] [address] [address] [place] [address] DAVINCI ROBOTIC REVERSAL NII POUCH Surgery Details [...] drink = 0.6 oz pur e alcohol) [facility] Utilities Answer Date Recorded In the [...] Date Recorded PHQ-2 Total Score 0 11/08/2024 [facility] - Occupational Stress [...] money to get more. Never true 11/08/2024 [facility] IP Transportation Answer D ate Recorded In [...] Lopez MD - 11/11/2024 11:39 AM EDT [facility] Discharge Summary Patient Name: Alesha Rose [...] (144-216) mg Cap Refills: 0 Generic drug: Yrbds-4-VXM-EPA-Fish Oil Magnesium 200 mg Tab Refills: 0 [...] Your Medications These medications were sent to [facility] [address] [place] [address] Hours: Monday-Monday 8:00am - 6:30pm Monday-Monday 9:00am [...] * How to use an incentive spirometer (Gabonese) documented in this encounter Medications at Time [...] Sustained Release Take 90 mg by mouth. Biivh-0-RZE-EPA- Fish Oil (FISH OIL) 1,200 (144-216) mg [...] Means Destination Comment s Home or Self Nursing Home documented in this encounter Progress Notes * [...] PM EDT Discharge Medication Delivery Service [employer]MD automotive lube technician has delivered the following medications for Alesha Rose: Rx#[id number]:OXYCODONE 5 MG TABLET-5 mg EVERY 4 HOURS PRN Date/Time of Delivery: 11/11/2024 12:59 PM Delivered to: bedside table Please contact [employer] automotive lube technician with any questions. Thanks! Joyce Parker CPhT * Nancy He MD - 11/10/2024 10:51 AM EDT General Surgery Attending Progress Note CSN:[id number] NAME:Alesha Rose :1945 Impression/Plan: POD 3 s/p [...] AM EDT General Surgery Attending Progress Note CSN:[id number] NAME:Alesha Rose :1945 Impression/Plan: POD 2 s/p [...] Gran% 0.3 % Lymph Percent 20.0 % [place] Percent 8.6 % Eos Percent 0.4 % Baso Percent 0.2 % Neut # 7.1 (H) 1.6 - 6.1 x10(3)/mcL IMMGRAN# 0.0 0.0 - 0.1 x10(3)/mcL Lymph # 2.0 1.2 - 3.9 x10(3)/mcL [place] # 0.9 0.3 - 0.9 x10(3)/mcL Eos# [...] for dc planning process Does patient need forging die sinker? No Activities of Daily Living Prior to [...] Discussed discharge plans with Care Team at [facility] Yes, with nurse in attendance Patient's goals [...] Jayant Barrera. Note no PCP listed in [facility]. IDALIA called the [place] [facility] and had pt???s PCP updated in [facility]. Pt [facility]. Pt states she can afford all her [...] and Rectal Surgery/General Surgery Postoperative Progress Note CSN:[id number] NAME:Alesha Rose :1945 Impression: S/p POD1 Robotic [...] Nova Bauer APRN- Colon and rectal surgery [facility] phone (EGD): [phone] Cosigned by Monica Arzola MD at 11/08/2024 [...] Monica Arzola MD Colon and Rectal Surgeon [facility] phone ([place]/ [place]): [phone] * Magalis Chavez RN - 11/08/2024 2:17 [...] NOTE PCP clearance obtained Valentino Carbajal APRN [facility] Source Note - Jennifer Ely APRN - 10/31/2024 10:30 AM EDT Images from the original note were not included. Colorectal Surgery Pre-op Visit Note CSN:[id number] NAME:Alesha Rose :1945 Impression: Nii Procedure 03/2024 [...] with the surgery. Medical clearance: Completed 09/17/2024 [facility] teaching: N/A Anticoagulation: Stop Eliquis 3 [...] Sustained Release Take 90 mg by mouth. Lslwy-6-FLY-EPA-Fish Oil (FISH OIL) 1,200 (144-216) mg Oral [...] Jennifer Ely APRN Colon and rectal surgery [facility] phone (EGD): [phone] documented in this encounter Procedure Notes * Monica Arzola MD - 11/07/2024 12:42 PM EDT [facility] OPERATIVE/PROCEDURE NOTE Alesha Rose November [birth year], [...] Arzola MD - 11/07/2024 12:31 PM EDT [facility] OPERATIVE/PROCEDURE NOTE ADMIT DATE: 10/08/2024 LOCATION: EDG MAIN OR OR: EDG OR12 SURGERY DATE: 11/07/2024 PRE-OP DIAGNOSIS: Colostomy status (HCC) [Z93.3] POST-OP DIAGNOSIS: Colostomy status (HCC) [Z93.3] PROCEDURE(S): Procedure(s): Robotic nii reversal SURGEON: Surgeons and Role: * Monica Arzola MD - Primary ANESTHETIC: General STAFF: [employer] Teacher: Triston Cisneros RN Physician [employer] Food Runners: Jennifer Porter PA-C Relief [employer] Teacher: Radha Kingsley RN Scrub Mcmullen: Joseline Moulton CST Scrub Assist: Tommy Hsu RN/FA Turn Over Foreign Exchange Services Manager: Amarilis Munguia, AMADOR; Екатерина Allison RN; Carisa Parks MUTUAL FUND ACCOUNTANT 2nd [employer] Teacher: Tommy Hsu RN/FA FINDINGS: White firm small [...] no other pathology was identified. A 19 Ugandan DALILA drain was placed into the pelvis [...] Monica Arzola MD Colon and Rectal Surgeon [facility] phone ([place]/ [place]): [phone] documented in this encounter Nursing Notes * Екатерина Lee RN - 10/31/2024 2:44 PM EDT PA at Primary Office called and said she cannot clear patient until MRI, EEG and labs are complete. EEG and Brain MRI requested from [facility] on 10/31 * Екатерина Lee RN - 10/31/2024 2:40 PM EDT REPORTS REQUEST ATTENTION:Medical Records PATIENT: Alesha Rsoe : 1945 This patient is scheduled for surgery on 11/07/2024 with Monica Galeana MD Anesthesia has requested the most recent results of the following tests: Most recent EEG and Brain MRI COMMENTS:_Thanks! Please fax to Pre-admission testing. PHONE # [phone] ATTENTION: [address] [address] documented in this encounter Miscellaneous Notes * Query Response Document - Monica Arzola MD - 11/11/2024 1:27 PM EDT [facility] CDI / [facility] Coding Query Documentation PATIENT: ALESHA ROSE : 1945 ADMIT DATE: 11/07/2024 5:28 AM DISCH DATE: 11/11/2024 1:27 PM RESPONDING PROVIDER #: [id number] PROVIDER QUERY RESPONSE TEXT: The Provider disagrees [...] any questions, please contact Pipo Rajan @ [phone]) Options provided: -- Sigmoid colon was attached [...] Encounter [facility] PERIOP [address] [place] [address] Leta Dupont MD [address] [place] [address] 01/16/2025 7:30 AM EST - 01/16/2025 9:05 AM EST Surgery [facility] PERIOP [address] [place] [address] Leta Dupont MD [address] [place] [address] [place] COLPOCLEISIS 02/26/2025 9:00 AM EST Office Visit [facility] Urogynecology [address] [address] Antonina Ji PA-C [address] [place] [address] Pending Results Name Type Priority Associated Diagnoses [...] 11/07/2024 8:23 AM EDT Colostomy status (HCC) RI LAPS CLSR NTRSTM LG/SM INT W/RESCJ & [...] (11/11/2024 7:53 AM EDT) ECG INTERPRET NSR [facility] 11/11/2024 7:53 AM EDT Narrative [facility] - 11/11/2024 7:58 AM EDT EH - ROUTINE; IVCD RI 0.14 QRS 0.14 RR 0.75 QT 0.40 QTc 0.46 See Clinical Report link for waveform capture us Unknown Provider POINT OF CARE CARDIOLOGY Final Result [place] [id number] * (ABNORMAL) CBC (11/11/2024 6:29 AM EDT) [...] Re sult [facility] [address], [place] [address] * ECG AND WAVEFORMS - TELEMETRY (11/10/2024 7:44 PM EDT) [facility] ECG INTERPRET NSR [facility] 11/10/2024 7:44 PM EDT Narrative [facility] - 11/10/2024 8:34 PM EDT IVCD SG RI 0.16 QRS 0.12 RR 0.83 QT 0.36 QTc 0.39 See Clinical Report link for waveform capture us Unknown Provider POINT OF CARE CARDIOLOGY Final Result [facility] [address] [place] [address] * (ABNORMAL) CBC (11/10/2024 6:11 AM EDT) [facility] WBC 7.7 3.7 - 10.3 x10(3)/mcL [...] 11/10/2024 6:49 AM EDT [facility] Blood VENOUS BLOOD / Unknown Venipuncture / Unknown 11/10/2024 6:11 AM EDT 11/10/2024 6:35 AM EDT us Nancy He MD HEMATOLOGY ORDERABLES Final Re sult [facility] [address] [facility] [address] , [place] [address] * (ABNORMAL) BASIC METABOLIC PANEL (11/09/2024 9:56 AM EDT) Sodium 134(L) 136 - 145 mmol/L 11/09/2024 10:55 AM EDT [facility] Potassium 3.7 3.5 - 5.0 mmol/L 11/09/2024 10:55 AM EDT [facility] Chloride 99 98 - 107 mmol/L 11/09/2024 10:55 AM EDT [facility] Total CO2 23 22 - 29 [...] recommended by the National Kidney Foundation - [place] Society of Nephrology Task Force. Blood VENOUS BLOOD / Unknown Venipuncture / Unknown 11/09/2024 9:56 AM EDT 11/09/2024 10:20 AM EDT us Nancy He MD CHEMISTRY ORDERABLES Final Res ult [facility] [address] , [place] [address] * (ABNORMAL) CBC (11/09/2024 9:56 AM EDT) [...] ORDERABLES Final Re sult Performing Organization Address City/[facility] Co de Phone Number [facility] [address], [place] [address] * ECG AND WAVEFORMS - TELEMETRY (11/09/2024 7:00 AM EDT) ECG INTERPRET R [facility] 11/09/2024 7:00 AM EDT Narrative [facility] - 11/09/2024 8:19 AM EDT ROUTINE SDP RI 0.17 QRS 0.12 RR 0.65 QT 0.35 See Clinical Report link for waveform capture us Unknown Provider POINT OF CARE CARDIOLOGY Final Result Performing Organization Address [facility] de Phone Number [facility] [address] [place] [address] * ECG AND WAVEFORMS - TELEMETRY (11/09/2024 5:12 AM EDT) ECG INTERPRET Sinus Arrythmia [facility] Comment:with non sustained v tach 11/09/2024 5:12 AM EDT Narrative [facility] - 11/09/2024 6:24 AM EDT IVCD W/6 BTS PJT (JX TACH) SG RI 0.14 QRS 0.13 QT 0.34 See Clinical Report link for waveform capture us Unknown Provider POINT OF CARE CARDIOLOGY Final Result Performing Organization Address [facility] Co de Phone Number [facility] [address] [place] [address] * ECG AND WAVEFORMS - TELEMETRY (11/08/2024 7:35 PM EDT) ECG INTERPRET NSR [facility] 11/08/2024 7:35 PM EDT Narrative [facility] - 11/08/2024 10:00 PM EDT PVC SG RI 0.16 QRS 0.14 RR 0.88 QT 0.38 QTc 0.41 See Clinical Report link for waveform capture us Unknown Provider POINT OF CARE CARDIOLOGY Final Result [facility] 1 [place] [address] * (ABNORMAL) BASIC METABOLIC PANEL [...] recommended by the National Kidney Foundation - Australian Society of Nephrology Task Force. Blood VENOUS BLOOD / Unknown Venipuncture / Unknown 11/08/2024 7:14 AM EDT 11/08/2024 7:32 AM EDT us Jennifer Porter PA-C CHEMISTRY ORDERABLES Final R esult [facility] [address] [facility] , [place] [address] * (ABNORMAL) CBC WITH DIFF [...] 11/08/2024 7:47 AM EDT [facility] [place] Percent 8.6 % 11/08/2024 7:47 AM EDT [facility] Eos Percent 0.4 % 11/08/2024 7:47 AM EDT [facility] Baso Percent 0.2 % 11/08/2024 7:47 AM EDT [facility] Neut # 7.1(H) 1.6 - 6.1 x10(3)/mcL 11/08/2024 7:47 AM EDT [facility] Comment:Neutrophils equals s egs plus bands IMMGRAN# 0.0 0.0 - 0.1 x10(3)/mcL 11/08/2024 7:47 AM EDT [facility] Comment:Automated count of m etamyelocytes, myelocytes and promyelocytes. An absolute IG <0.1 is reported as 0.0. Lymph # 2.0 1.2 - 3.9 x10(3)/mcL 11/08/2024 7:47 AM EDT [facility] [place] # 0.9 0.3 - 0.9 x10(3)/mcL 11/08/2024 7:47 AM EDT [facility] Eos# 0.0 0.0 - 0.5 x10(3)/mcL 11/08/2024 7:47 AM EDT [facility] Baso # 0.0 0.0 - 0.1 x10(3)/mcL 11/08/2024 7:47 AM EDT [facility] Blood VENOUS BLOOD / Unknown Venipuncture / Unknown 11/08/2024 7:14 AM EDT 11/08/2024 7:33 AM EDT us Jennifer Porter PA-C HEMATOLOGY ORDERABLES Final Result [facility] [address] [facility] , [place] [address] * ECG AND WAVEFORMS - TELEMETRY (11/08/2024 7:05 AM EDT) Pathologist [facility] ECG INTERPRET NSR [facility] 11/08/2024 7:05 AM EDT Narrative [facility] - 11/08/2024 8:45 AM EDT IVCD/ROUTINE/MTS RI 0.15 QRS 0.12 RR 0.84 QT 0.38 QTc 0.41 See Clinical Report link for waveform capture us Unknown Provider POINT OF CARE CARDIOLOGY Final Result Performing Organization Address City/[facility]/ZIP Co de Phone Number [facility] [address] [place] [address] * ECG AND WAVEFORMS - TELEMETRY (11/07/2024 7:05 PM EDT) ECG INTERPRET NSR [facility] 11/07/2024 7:05 PM EDT Narrative [facility] - 11/07/2024 8:31 PM EDT ROUTINE/IVCD/al RI 0.16 QRS 0.16 RR 0.78 QT 0.43 QTc 0.48 See Clinical Report link for waveform capture us Unknown Provider POINT OF CARE CARDIOLOGY Final Result Performing Organization Address [facility] Co de Phone Number [facility] [address] [place] [address] * (ABNORMAL) GLUCOSE METER POC (11/07/2024 12:05 PM EDT) Glucose Meter POC 152(H) 70 - 100 mg/dL 11/07/2024 12:07 PM EDT [facility] Sample Type Capillary 11/07/2024 12:07 PM EDT [facility] Patient Status Non-Critical Patient 11/07/2024 12:07 PM EDT [facility] Blood BLOOD SPECIMEN / Unknown 11/07/2024 12:05 PM EDT 11/07/2024 12:07 PM EDT us Monica Arzola MD POINT OF CARE TEST ORDERABLES Fi nal Result Performing Organization Address City/[facility]/ZIP Co de Phone Number [facility] [address] [place] [address] * (ABNORMAL) GLUCOSE METER POC (11/07/2024 11:43 AM EDT) Glucose Meter POC 162(H) 70 - 100 mg/dL 11/07/2024 11:45 AM EDT [facility] Sample Type Capillary 11/07/2024 11:45 AM EDT [facility] Patient Status Non-Critical Patient 11/07/2024 11:45 AM EDT [facility] Blood BLOOD SPECIMEN / Unknown 11/07/2024 11:43 AM EDT 11/07/2024 11:45 AM EDT Monica Arzola MD POINT OF CARE TEST ORDERABLES Fi nal Result Performing Organization Address [facility] [place] [address] * (ABNORMAL) GLUCOSE METER POC (11/07/2024 9:05 AM EDT) Glucose Meter POC 136(H) 70 - 100 mg/dL 11/07/2024 9:07 AM EDT [facility] Sample Type Capillary 11/07/2024 9:07 AM EDT [facility] Patient Status Non-Critical Patient 11/07/2024 9:07 AM EDT [facility] Blood BLOOD SPECIMEN / Unknown 11/07/2024 9:05 AM EDT 11/07/2024 9:07 AM EDT Monica Arzola MD POINT OF CARE TEST ORDERABLES [place] [address] * PATHOLOGY TISSUE REQUEST (11/07/2024 8:23 AM EDT) CASE REPORT Surgical Pathology Case: [id number] Authorizing Provider: Monica Arzola MD Collected: 11/07/2024 0823 Ordering Location: [facility] Received: 11/07/2024 0835 Pathologist: Levi Bedoya MD Intraop: Liliane Qureshi MD Specimens: A) - Omentum, Omental tissue B) - Colostomy Site, Colostomy Trim C) - Large Intestine, Rectum, Rectal Stump D) - Abdominal, fat necrosis E) - Abdominal, Anastamotic rings 11/12/2024 5:43 PM EDT [facility] FINAL DIAGNOSIS A. Omental tissue, [...] atypia or malignancy. 11/12/2024 5:43 PM EDT [facility] at 1743 EDT GROSS DESCRIPTION [...] mucosa throughout the specimen is crocker-white, unremarkable. Printer Helper sections are submitted in 1 cassette. INGA [...] masses, or areas of dehiscence are identified. Printer Helper sections are submitted as follows: C1 = [...] material. Both tissues display unremarkable crocker-white mucosa. Printer Helper sections are submitted in 1 cassette. INGA Dong PA (ASCP) 11/12/2024 5:43 PM EDT [facility] MICROSCOPIC DESCRIPTION The microscopic examination may have been rendered in whole, or in part, by analyzing high-resolution digital images (whole slide images) on the [employer] Digital Pathology platform validated at [facility]. 11/12/2024 5:43 PM EDT [facility] INTRAOPERATIVE CONSULTATION FSA. Negative for malignancy (fat necrosis and lciuzwj-vfdc-mvc e giant cell reaction). AM to [place] 11/12/2024 5:43 PM EDT [facility] EMBEDDED IMAGES 5:43 PM EDT [facility] Tissue OMENTUM STRUCTURE / Unknown [...] ORDERABLES Final Resul t Performing Organization Address City/[facility] de Phone Number [facility] [address] [phone] [facility] [address] [place] [address] * (ABNORMAL) GLUCOSE METER POC (11/07/2024 7:13 AM EDT) Glucose Meter POC 106(H) 70 - 100 mg/dL 11/07/2024 7:14 AM EDT [facility] Sample Type Capillary 11/07/2024 7:14 AM EDT [facility] Patient Status Non-Critical Patient 11/07/2024 7:14 AM EDT [facility] Blood BLOOD SPECIMEN / Unknown 11/07/2024 7:13 AM EDT 11/07/2024 7:14 AM EDT us Monica Arzola MD POINT OF CARE TEST ORDERABLES Fi nal Result Performing Organization Address [facility] de Phone Number [address] [address] documented in this encounter Visit Diagnoses Diagnosis [...] Oral, 2 TIMES DAILY, First dose on [place] 11/10/24 at 1230, Until Discontinued Given 11/11/2024 8:55 AM EDT 5 mg atorvastatin (LIPITOR) tablet 10 mg 10 mg, Oral, DAILY, First dose on [facility] 11/07/24 at 1230, Until Discontinued Given 11/11/2024 8:53 AM EDT 10 mg bupivacaine (MARCAINE/SENSORCAINE) 0.5 % (5 mg/mL) injection INTRAPROCEDURE, Starting on [facility] 11/07/24 at 0830, Until [facility] 11/07/24 at 1403, Intra-op Given 11/07/2024 8:30 AM EDT 30 mL Abdominal Tissue BUPivacaine liposome (PF) (EXPAREL) 1.3 % (13.3 mg/mL) 20 mL injection 20 mL, INTRAPROCEDURE, Starting on [facility] 11/07/24 at 0830, Until [facility] 11/07/24 at 1403, Intra-op Given 11/07/2024 8:30 AM EDT 20 mL Abdominal Tissue carvediloL (COREG) tablet 12.5 mg 12.5 mg, Oral, 2 TIMES DAILY WITH MEALS, First dose on [facility] 11/07/24 at 1800, Until Discontinued, Take with a meal. Given 11/11/2024 8:55 AM EDT 12.5 mg dicyclomine (BENTYL) capsule 10 mg 10 mg, Oral, 4 TIMES DAILY BEFORE MEAL, First dose (after last modification) on [facility] 11/09/24 at 0130, Until Discontinued Given 11/11/2024 10:09 AM EDT 10 mg lidocaine (ASPERCREME) 4 % patch 1 Patch 1 Patch, Transdermal, EVERY 12 HOURS SCHEDULED (2 times per day), First dose on [facility] 11/07/24 at 2100, Until Discontinued, Remove [...] 11/11/2024 polyethylene glycol (GLYCOLAX) 17 gram/dose Oral PowderIndications:[place] rovaginal prolapse, incomplete Begin Miralax, 17 g [...]
--- OUTSIDE RECORDS SUMMARY | 2024-11-07 07:33 | XMS_ITS | Encounter Summary ---
Author Organization [place] [address] Care Team Providers Care Excel Expert Name Role Phone Unavailable Primary Care Provider Unavailabl e Reason for Visit * Auth/Cert/Inpt Specialty Diagnoses / Procedures Referred By Clover t Referred To Contact Diagnoses Colostomy status (HCC) Colostomy status (HCC) [Z93.3] Procedures OH LAPS CLSR NTRSTM LG/SM INT W/RESCJ & ANASTOMOSIS Robotic grecia reversal Referral ID Status Reason Start Date Expiration Date Visits Re quested Visits Authorized [id number] 1 1 Encounter Details Date Type Department Care Team (Late st Contact Info) Description 11/07/2024 7:33 AM EDT Anesthesia Event EDG PERIOP [facility] [place] [address] Christal Owens MD [address] [facility] [address] [place] [address] Jagruti Campa APRN [address] [place] [address] [place] [address] Anesthesia Record Procedure Summary Procedure Name Responsible [...] acknowledgement of understanding from the receiving PACU/ICU merchandise team manager [id number] An Stop Meds Name Total lidocaine injection 1% 50 mg fentaNYL 50 MCG/ML INJ 100 mcg propofol (DIPRIVAN) injection 80 mg rocuronium (ZEMURON) 10 mg/mL injection 90 mg ephedrine injection 50 mg phenylephrine 100 mcg/ml 10ml (syringe) 500 mcg dexamethasone (DECADRON) injection 4 mg/ mL 4 mg glycopyrrolate (ROBINUL) injection 0.2 m g ceFAZolin (ANCEF) IVPB 2 g 4 g metroNIDAZOLE (FLAGYL) IVPB 500 mg 500 m g HYDROmorphone (DILAUDID) injection 1 mg/ mL 1 mg ondansetron (ZOFRAN) injection 4 mg /2 m L 4 mg sugammadex (BRIDION) 100 mg/mL injection 200 mg indocyanine green (IC-GREEN) injection 2 5 mg 6.25 mg lactated ringers infusion 1,900 mL * Agents Name O2 N2O Air Et Sevoflurane * Blood No blood administrations on file. Lines, Drains, and Airways Type Details Placement Removal Peripheral IV 11/07/24; 59; 20; Right; Forearm; m jasmin rn; 1; 11/11/24; 1245; Therapy completed; Catheter intact, Dressing applied, No Complications 11/07/24 0559 by Adwoa Palacio RN 11/11/24 124 by Fariba Easton, AMADOR Colostomy LLQ 11/07/24 0628 by 11/07/2411 07 by Triston Cisneros, RN Airway Device: ETT- Cuffed; Size: 7 mm; Placement Date: 11/07/24; Placement Time: 742 (created via procedure documentation); Removal Date: 11/07/24; Removal Time: 1151 11/07/24 0743 by Cale Steen CRNA 11/07/24 1151 by Cale Steen CRNA Urethral Catheter (Huynh) Placement Date: 11/07/24; Placement Time: 08; Inserted By: Amelia ENGLISH; Type: Latex; Balloon Size: 10 ml; Collection Container: Urimeter; Securement Method: Securing device (Describe); Urine Returned: Yes; Location: OR; Silver-Coated Catheter In Use?: Yes; ELIZA Intact?: Yes; Removal Date: 11/08/24; Removal Time: 91711/07/24 0802 by Triston Cisneros RN 11/08/24 0918 by Elsie Nichols RN Incision/Wound 11/07/24; 0812; No; Closed Surgical; Abdomen; Left; 11/11/24; 1727 11/07/24 0812 by Triston Cisneros RN 11/11/24 1727 by Discharge Provider, Automatic Incision/Wound 11/07/24; 0830; No; Closed Surgical; Abdomen; Trocar site x 3; 11/11/24; 1727 11/07/24 0830 by Triston Cisneros RN 11/11/24 1727 by Discharge Provider, Automatic Closed/Suction Drain 11/07/24; 1127; Rig ht; Abdomen; Other (Comment) ([place]); 19 [place] 11/07/24 1127 by Triston Cisneros RN 11/11/24 1307 by Fariba Easton RN documented in this encounter Social History Tobacco Use Types Packs/Day Years Used Date Smoking Tobacco: Never Smokeless Tobacco: Never Alcohol Use Standard Drinks/Week Comments Not Currently 0 (1 standard drink = 0.6 oz pur e alcohol) [facility] Utilities Answer Date Recorded In the past 12 months has [employer], gas, oil, or water [employer] threatened to shut off services in your home? No 11/08/2024 Overall Financial Resource Strain (CARDIA) Answe r Date Recorded How hard is it for you to pa y for the very basics like food, housing, medical care, and heating? Not hard at all 11/08/2024 PHQ-2 Answer Date Recorded PHQ-2 Total Score 0 11/08/2024 [facility] of Occupat ional [facility] - Occupational Stress Questionnaire Answer Date Recorded [...] money to get more. Never true 11/08/2024 [facility] IP Transportation Answer D ate Recorded [...] on file documented as of this encounter Functional Status * Alcohol Screening [...] 2:14 PM EDT Whitney Joyce RN * Suicide Severity Rating Answer Date of Assessment Author No Risk 11/07/2024 2:15 PM EDT Whintey Joyce RN * [place] Suicide Severity Rating Scale (Q shift for [...] Loyd RN documented as of this encounter Procedure Notes * Cale Steen CRNA - 11/07/2024 8:21 AM EDTAssociated Order(s): Airway Intraop Airway Placement: Date/Time: 11/07/2024 7:43 AM Induction type: IV Mask size: Standard adult Pre-Oxygenation: Standard Mask ventilation: Easy mask ventilation Mask ventilation improved by: Oral airway Oral airway sizes: 90 Technique: Video laryngoscope Laryngoscope blade: Brunner Blade size: 2 Grade view: I Airway type: ETT- cuffed Topical Anesthetic/Lubricant: Lidocaine 2% jelly Intubation assist devices: Stylet 14fr Airway location: Oral Device size: 7mm Secured at: 19 cm Secured by: Tape Measured from: Lips Placement verified: Auscultation, End tidal CO2 and Symmetric chest wall motion Condition: Atraumatic and Unchanged Insertion attempts: 1 Title: SOCIAL SCIENCE MANAGER documented in this encounter OR Notes * Anesthesia Postprocedure Evaluation - Dillon Euceda MD - 11/07/2024 2:24 PM EDT Post-Anesthesia Evaluation Note Patient Name: Alesha Szymanski Patient Date: November 07, 2024 Post-Anesthesia Evaluation Patient Location: PACU Post op vitals: stable Difficult airway: no Nausea controlled: yes Level of consciousness: awake and alert Post anesthesia pain: adequate analgesia Long acting local anesthetic: n/a Airway patency: patent Respiratory status: nasal canula and spontaneous ventilation Cardiovascular status: stable Hydration status: euvolemic Temperature: Normothermia Perioperative complications: NONE Vitals Value Taken Time BP 156/97 11/07/24 13:01 Resp 13 11/07/24 13:01 SpO2 94 % 11/07/24 13:01 Temp 36.6 ??C (97.8 ??F) 11/07/24 12:00 Pulse 71 11/07/24 12:30 * Anesthesia Preprocedure Evaluation - Dillon Euceda MD - 11/07/2024 6:52 AM EDT Pre-Anesthesia Evaluation Note Patient Name: Alesha Szymanski Sex: female Patient : 1945 Age: 79 y.o. Patient Date: November 07, 2024 Robotic grecia reversal Anesthesia Evaluation Previous anesthesia. No history of anesthetic complications: No family history of anesthesia complications: Airway Mallampati: III TM distance: >3 FB Neck ROM: full No increased risk of difficult airway Dental Dental exam findings: upper dentures and lower partials Pulmonary Comments: Chronic Cough Allergic rhinitis (+) Pulmonary embolism (H/O 2024) Physical exam: Comments: Clear to auscultation (-) no asthma, no sleep apnea, no URI cough sputum Cardiovascular Comments: Follows with Dr. Mclaughlin. Last seen 09/2024 (+)Exercise tolerance: Walking everyday- Over 1 mile Able to walk a block and walk up a flight of stairs without chest pain or shortness of breath Hypertension: well controlled Hyperlipidemia CHF: Arrhythmias (PAF): atrial fibrillation and SVT Valvular problems/murmurs (Mild [place]): /AI, Murmur and MS/MR Shortness of breath: [place] Physical exam: Rhythm: regular Rate: normal (-) no angina Neuro/Psych Comments: Memory loss (-) seizures and no cerebrovascular disease GI/Hepatic/Renal Comments: Mixed stress and urge urinary incontinence H/O colon perforation, s/p resection, colostomy (+)GERD/PUD: well controlled Endo/Other Comments: Insomnia Osteopenia Osteoporosis (+): Arthritis: Osteoarthritis Anemia anticoagulation therapy (Eliquis) 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 Dupont Additional Pre-evaluation comments CBC and T&S ordered 07/31/24 CBC reviewed in Care Everywhere: H&H 11.4/34.4 06/20/24 CMP reviewed in Care Everywhere: Glucose 111 EKG tracing requested from Cardiology office 09/05/22 ECHO reviewed in Care Everywhere: Left [...] is no recent study available for direct yyco-pr-bcsd comparison. Opioids : Naive BMI: 23.35 Anesthesia Plan ASA 3 Last solid intake: The patient has not eaten within the last 8 hours. Anesthesia Plan: general Induction: intravenous Monitors: STD Emend ordered Cardiac clearance scanned into media tab 09/17/24 Medical clearance appointment scheduled 10/23/24 Will request recent cardiac testing from Cardiology office. PONV Risk Score: 3. Score of 3 or more is High Risk for PONV, combination antiemetic prophylaxis isindicated. Informed consent Anesthetic plan and risks discussed with: patient and family. Cardiology Clearance Obtained Chart Reviewed and patient examined documented in this encounter Miscellaneous Notes * PAT Pre Evaluation for Anesthesia - Swetha Bay APRN - 10/23/2024 8:02 AM EDT Pre-Anesthesia Evaluation Note Patient Name: Alesha Szymanski Sex: female Patient : 1945 Age: 79 y.o. Patient Date: October 23, 2024 Robotic grecia reversal Anesthesia Evaluation Previous anesthesia. No history of anesthetic complications: No family history of anesthesia complications: Airway TM distance: >3 FB Neck ROM: full Dental Dental exam findings: upper dentures and lower partials Pulmonary Comments: Chronic Cough Allergic rhinitis (+) Pulmonary embolism (H/O 2024) Physical exam: Comments: Clear to auscultation (-) no URI cough sputum Cardiovascular Comments: Follows with Dr. Mclaughlin. Last seen 09/2024 (+)Exercise tolerance: Walking everyday- Over 1 mile Able to walk a block and walk up a flight of stairs without chest pain or shortness of breath Hypertension: well controlled Hyperlipidemia CHF: Arrhythmias (PAF): atrial fibrillation and SVT Valvular problems/murmurs (Mild [place]): /AI, Murmur and MS/MR Shortness of breath: [place] Physical exam: Rhythm: regular Rate: normal (-) no angina Neuro/Psych Comments: Memory loss (-) seizures and no cerebrovascular disease GI/Hepatic/Renal Comments: Mixed stress and urge urinary incontinence H/O colon perforation, s/p resection, colostomy (+)GERD/PUD: well controlled Endo/Other Comments: Insomnia Osteopenia Osteoporosis (+)Arthritis: Osteoarthritis Anemia anticoagulation therapy (Eliquis) 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 Dupont Additional Pre-evaluation comments CBC and T&S ordered 07/31/24 CBC reviewed in Care Everywhere: H&H 11.4/34.4 06/20/24 CMP reviewed in Care Everywhere: Glucose 111 EKG tracing requested from Cardiology office 09/05/22 ECHO reviewed in Care Everywhere: Left [...] is no recent study available for direct vbye-uk-khdr comparison. Opioids : Naive BMI: 23.35 Anesthesia Plan Anesthesia Plan: general Emend ordered Cardiac clearance scanned into media tab 09/17/24 Medical clearance appointment scheduled 10/23/24 Will request recent cardiac testing from Cardiology office. PONV Risk Score: 3. Score of 3 or more is High Risk for PONV, combination antiemetic prophylaxis isindicated. Cardiology Clearance Obtained Chart Reviewed and patient examined documented in this encounter Plan of Treatment Upcoming Encounters Date Type Department Care Team (Latest Contact Info) Description 01/16/2025 7:30 AM EST Hospital Encounter FTT PERIOP [address] [place] [address] Leta Dupont MD [address] [place] [id number] 01/16/2025 7:30 AM EST - 01/16/2025 9:05 AM EST Surgery FTT PERIOP [address] [place] [address] Leta Dupont MD [address] [place] [id number] [facility] COLPOCLEISIS 02/26/2025 9:00 AM EST Office Visit [facility] [address] [address] Antonina Ji PA-C [address] [place] [id number] Scheduled Procedures Name Priority Associated Diagnoses [...] Associated Diagnosis Comments INTRAOP AIRWAY PLACEMENT Routine 11/07/2024 7:43 AM EDT documented in this encounter Results * INTRAOP AIRWAY PLACEMENT (11/07/2024 7:43 AM EDT) Narrative [facility] - 11/07/2024 7:43 AM EDT Cale Steen CRNA 11/07/2024 8:23 AM Intraop Airway Placement: Date/Time: 11/07/2024 7:43 AM Induction type: IV Mask size: Standard adult Pre-Oxygenation: Standard Mask ventilation: Easy mask ventilation Mask ventilation improved by: Oral airway Oral airway sizes: 90 Technique: Video laryngoscope Laryngoscope blade: [employer] Blade size: 2 Grade view: I Airway type: ETT- cuffed Topical Anesthetic/Lubricant: Lidocaine 2% jelly Intubation assist devices: Stylet 14fr Airway location: Oral Device size: 7mm Secured at: 19 cm Secured by: Tape Measured from: Lips Placement verified: Auscultation, End tidal CO2 and Symmetric chest wall motion Condition: Atraumatic and Unchanged Insertion attempts: 1 Title: SOCIAL SCIENCE MANAGER us Christal wOens MD [place] ANESTHESIA Final Res ult [facility] [address] [id number] documented in this encounter Visit Diagnoses Not on filedocumented in this encounter Administered Medications Inactive Administered Medications - up to 1 most recent administrations Medication Order MAR Action Action Date Dose Rate Site ceFAZolin (ANCEF) IVPB 2 g 2 g, Intravenous, ONCE PREPROCEDURE, 1 dose, On Yohana 11/07/24 at 0645, Administer over 30 Minutes, Administer 30 minutes prior to procedure., Reason for Therapy: Surgical Prophylaxis, Pre-op (Antibiotic) Given 11/07/2024 11:33 AM EDT 2 g dexAMETHasone (DECADRON) injection Intravenous, PRN (Anesthesia), Starting on Yohana 11/07/24 at 0745, Until Yohana 11/07/24 at 1204, Anesthesia Intra-op Given 11/07/2024 7:45 AM EDT 4 mg ePHEDrine injection Intravenous, PRN (Anesthesia), Starting on Yohana 11/07/24 at 0825, Until Yohana 11/07/24 at 1204, Anesthesia Intra-op Given 11/07/2024 11:13 AM EDT 10 mg fentaNYL (SUBLIMAZE) injection Intravenous, PRN (Anesthesia), Starting on Yohana 11/07/24 at 0733, Until Yohana 11/07/24 at 1204, Anesthesia Intra-op Given 11/07/2024 10:00 AM EDT 25 mcg glycopyrrolate (ROBINUL) injection Intravenous, PRN (Anesthesia), Starting on Yohana 11/07/24 at 0833, Until Yohana 11/07/24 at 1204, Anesthesia Intra-op Given 11/07/2024 8:33 AM EDT 0.2 mg HYDROmorphone (PF) (DILAUDID) injection Intravenous, PRN (Anesthesia), Starting on Yohana 11/07/24 at 1150, Until Yohana 11/07/24 at 1204, Anesthesia Intra-op Given 11/07/2024 11:50 AM EDT 1 mg indocyanine green (IC-GREEN) injection Intravenous, PRN (Anesthesia), Starting on Yohana 11/07/24 at 1057, Until Yohana 11/07/24 at 1204, Anesthesia Intra-op Given 11/07/2024 10:57 AM EDT 6.25 mg lactated ringers infusion Intravenous, at 50 mL/hr, PREPROCEDURE CONTINUOUS, Starting on Mon11/06/24 at 0814, Until Mon11/07/24 at 1221, To be given in SDS/Pre-op Holding Area, Pre-op (Holding/SDS Meds) New Bag 11/07/2024 9:09 AM EDT lidocaine 1% 10 mg/mL (1 %) injection Intravenous, PRN (Anesthesia), Starting on Yohana 11/07/24 at 0740, Until Yohana 11/07/24 at 1204, Anesthesia Intra-op Given 11/07/2024 7:40 AM EDT 50 mg metroNIDAZOLE (FLAGYL) IVPB 500 mg 500 mg, Intravenous, ONCE PREPROCEDURE, 1 dose, On Yohana 11/07/24 at 0645, Administer over 30 Minutes, Administer 30 minutes prior to procedure. VESICANT , Reason for Therapy: Surgical Prophylaxis, Pre-op (Antibiotic) Given 11/07/2024 7:33 AM EDT 500 mg ondansetron (ZOFRAN) injection Intravenous, PRN (Anesthesia), Starting on Yohana 11/07/24 at 1119, Until Yohana 11/07/24 at 1204, Anesthesia Intra-op Given 11/07/2024 11:19 AM EDT 4 mg phenylephrine injection Intravenous, PRN (Anesthesia), Starting on Yohana 11/07/24 at 0819, Until Yohana 11/07/24 at 1204, Anesthesia Intra-op Given 11/07/2024 8:23 AM EDT 300 mcg propofoL (DIPRIVAN) injection Intravenous, PRN (Anesthesia), Starting on Yohana 11/07/24 at 0740, Until Yohana 11/07/24 at 1204, Anesthesia Intra-op Given 11/07/2024 7:40 AM EDT 80 mg rocuronium injection Intravenous, PRN (Anesthesia), Starting on Yohana 11/07/24 at 0740, Until Yohana 11/07/24 at 1204, Anesthesia Intra-op Given 11/07/2024 10:39 AM EDT 10 mg sugammadex (BRIDION) injection Intravenous, PRN (Anesthesia), Starting on Yohana 11/07/24 at 1145, Until Yohana 11/07/24 at 1204, Anesthesia Intra-op Given 11/07/2024 11:45 AM EDT 200 mg documented in this encounter Additional Health Concerns Active Problems Noted Date Diagnosed Date Autogenerated Problem 10/10/2024 documented as of this encounter
--- OUTSIDE RECORDS SUMMARY | 2024-11-07 07:33 | XMS_ITS | Encounter Summary ---
Author [place] [address] Care Team Providers Care Vacuum Technician Name Role Phone Unavailable Primary Care Provider Unavailabl e Reason for Visit * Auth/Cert/Inpt Specialty Diagnoses / Procedures Referred By Clover t Referred To Contact Diagnoses Colostomy status (HCC) Colostomy status (HCC) [Z93.3] Procedures [place] LAPS CLSR NTRSTM LG/SM INT W/RESCJ & ANASTOMOSIS Robotic grecia reversal Referral ID Status Reason Start Date Expiration Date Visits Re quested Visits Authorized [id number] 1 1 Encounter Details Date Type Department Care Team (Late st Contact Info) Description 11/07/2024 7:33 AM EDT Anesthesia Event EDG PERIOP [facility] [place] [address] Christal Owens MD [address] [facility] [address] [place] [address] Jagruti Campa APRN [address] [place] [address] [place] [address] Anesthesia Record Procedure Summary Procedure Name Responsible [...] acknowledgement of understanding from the receiving PACU/ICU security team lead 1204 An Stop Meds Name Total lidocaine [...] Rig ht; Abdomen; Other (Comment) ([place]); 19 [place] 11/07/24 1127 by Triston Cisneros RN 11/11/24 1307 by Fariba Easton RN documented in this encounter Social History Tobacco Use Types Packs/Day Years Used Date Smoking Tobacco: Never Smokeless Tobacco: Never Alcohol Use Standard Drinks/Week Comments Not Currently 0 (1 standard drink = 0.6 oz pur e alcohol) [facility] Utilities Answer Date Recorded In the past 12 months has [employer], gas, oil, or water [employer] threatened to shut off services in your home? No 11/08/2024 Overall Financial Resource Strain (CARDIA) Answe r Date Recorded How hard is it for you to pa y for the very basics like food, housing, medical care, and heating? Not hard at all 11/08/2024 PHQ-2 Answer Date Recorded PHQ-2 Total Score 0 11/08/2024 [facility] of Occupat ional [facility] - Occupational Stress Questionnaire Answer Date Recorded [...] money to get more. 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 Opioids : Naive BMI: 23.35 Anesthesia [...] Encounter FTT PERIOP [address] [place] [address] Leta Dupont MD [address] [place] [id number] 01/16/2025 7:30 AM EST - 01/16/2025 9:05 AM EST Surgery FTT PERIOP [address] [place] [address] Leta Dupont MD [address] [place] [id number] LEFORT COLPOCLEISIS 02/26/2025 9:00 AM EST Office Visit [facility] [address] [address] Antonina Ji PA-C [address] [place] [id number] Scheduled Procedures Name Priority Associated Diagnoses [...] PLACEMENT (11/07/2024 7:43 AM EDT) Narrative [facility] - 11/07/2024 7:43 AM EDT Cale Steen CRNA 11/07/2024 8:23 AM Intraop Airway Placement: Date/Time: 11/07/2024 7:43 AM Induction type: IV Mask size: Standard adult Pre-Oxygenation: Standard Mask ventilation: Easy mask ventilation Mask ventilation improved by: Oral airway Oral airway sizes: 90 Technique: Video laryngoscope Laryngoscope blade: iMusician Blade size: 2 Grade view: I Airway type: ETT- cuffed Topical Anesthetic/Lubricant: Lidocaine 2% jelly Intubation assist devices: Stylet 14fr Airway location: Oral Device size: 7mm Secured at: 19 cm Secured by: Tape Measured from: Lips Placement verified: Auscultation, End tidal CO2 and Symmetric chest wall motion Condition: Atraumatic and Unchanged Insertion attempts: 1 Title: APPRAISAL COORDINATOR us Christal Owens MD [place] ANESTHESIA Final Res ult [facility] [address] [id number] documented in this encounter Visit Diagnoses Not [...] Starting on Yohana 11/07/24 at 0825, Until Yoahna 11/07/24 at 1204, Anesthesia Intra-op Given 11/07/2024 [...]
--- OUTSIDE RECORDS SUMMARY | 2024-11-22 09:00 | XMS_ITS | Encounter Summary ---
Author Organization [place] [address] Care Team Providers Care Grain Processor Name Role Phone Chas Barrera Primary Care Provider [phone] Reason for Visit * Reason Comments Follow-up Encounter Details Date Type Department Care Team (Latest Contact Info) Description 11/22/2024 9:00 AM EDT - 11/22/2024 11:59 PM EDT Hospital Encounter [facility] [place] [address] Jennifer Ely, POST ACUTE CARE NURSE [address] [facility] [address] [place] [address] Follow-up examination following surgery (Primary Dx); History of colostomy reversal Discharge Disposition: Home or Self Care Social History Tobacco Use Types Packs/Day Years Used Date Smoking Tobacco: Never Smokeless Tobacco: Never Tobacco Cessation:Counseling Given: Not Answered Alcohol Use Standard Drinks/Week Comments Not Currently 0 (1 standard drink = 0.6 oz pur e alcohol) [facility] Utilities Answer Date Recorded In [...] Date Recorded PHQ-2 Total Score 0 11/08/2024 [facility] of Occupat ional Health - Occupational Stress [...] money to get more. Never true 11/08/2024 [facility] IP Transportation Answer D ate Recorded In [...] Sign Reading Time Taken Comments Blood Pressure 173/83 11/22/2024 9:54 AM EDT asymptomatic. Pulse 58 11/22/2024 9:54 AM EDT Temperature 36.9 C (98.4 F) 11/22/2024 9:54 AM EDT Respiratory Rate 20 11/22/2024 9:54 AM EDT Oxygen Saturation 98% 11/22/2024 9:5 4 AM EDT RA. Inhaled Oxygen Concentration - - Weight 51.1 kg (112 lb 9.6 oz) 11/22/2024 9:54 AM EDT Height - - Body Mass Index 23.53 11/07/2024 5:46 AM EDT documented in this encounter Medications at Time [...] Sustained Release Take 90 mg by mouth. Utnpx-1-BRC-EPA- Fish Oil (FISH OIL) 1,200 (144-216) mg [...] mouth daily. documented as of this encounter Discharge Disposition Disposition Code Departure Means Destination Home or Self Care documented in this encounter Progress Notes * Jennifer Ely, POST ACUTE CARE NURSE - 11/22/2024 9:00 AM EDT POST OP CSN:[id number] NAME:Alesha Szymanski :1945 Impression: 11/07 s/p Robotic sofia reversal Plan: Send Panlt message and wound update next week Reviewed wound care Reviewed remaining post op limitations - No lifting more than 15 lbs x4-6 weeks from procedure date - Daily shower Discussed pathology results Told patient to call office or present to ED with any fevers, vomiting, increasing abdominal pain, inability to pass stool/flatus, redness/drainage or pus from incisions or any other concerns HPI: Reports overall doing well. Tolerating low fiber diet without nausea or vomiting. Admits to passing flatus and 3-4x BMs daily without difficulty, nonbloody. Pain well controlled. No longer taking analgesics Ambulating well at home Denies urinary concerns or fevers Denies any redness, drainage, or warmth from incision. Vitals: Vitals: 11/22/24 0954 BP: (!) 173/83 Pulse: 58 Resp: 20 Temp: 98.4 ??F (36.9 ??C) SpO2: 98% Exam: General - resting comfortably in chair, in no acute distress Abdomen/GI - soft, non-tender, non-distended, no rebound or guarding Incision/wound - clean, dry, and intact without surrounding erythema or tenderness. Silver nitrate applied Pathological diagnosis: A. Omental tissue, resection: - Fat necrosis [...] - Negative for cytologic atypia or malignancy. Jennifer Ely APRN Colon and rectal surgery [facility] Office phone (EGD): [phone] documented in this encounter Miscellaneous Notes * Addendum Note - Gabriella Khan RN - 11/22/2024 9:00 AM EDTEncounter addended by: Gabriella Khan RN on: 11/22/2024 10:18 AM Actions taken: Charge Capture section accepted documented in this encounter Plan of Treatment Upcoming Encounters Date Type Department Care Team (Latest Contact Info) Description 01/16/2025 7:30 AM EST Hospital Encounter [facility] [address] [place], [place] [address] Leta Dupont MD [address] [place] [address] 01/16/2025 7:30 AM EST - 01/16/2025 9:05 AM EST Surgery [facility] [address] [place] [address] Leta Dupont MD [address] [place] [address] [facility] COLPOCLEISIS 02/26/2025 9:00 AM EST Office Visit [facility] [address] [address] Antonina Ji PA-C [address] [place] [address] Scheduled Procedures Name Priority Associated Diagnoses [...] Visit Diagnoses Diagnosis Uterovaginal prolapse, incomplete- Primary Follow-up examination following surgery- Primary Follow-up examination, following unspecified surgery History of colostomy reversal Uterovaginal prolapse, incomplete documented in this encounter Additional Health Concerns Active Problems Noted Date Diagnosed Date 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
--- OUTSIDE RECORDS SUMMARY | 2024-11-22 09:00 | XMS_ITS | Encounter Summary ---
Author Organization [place] [address] Care Team Providers Care Automation Analyst Name Role Phone Chas Barrera Primary Care Provider [phone] Reason for Visit * Reason Comments Follow-up Encounter Details Date Type Department Care Team (Latest Contact Info) Description 11/22/2024 9:00 AM EDT - 11/22/2024 11:59 PM EDT Hospital Encounter [facility] [place] [address] Jennifer Ely, WAGE AND SALARY SPECIALIST [address] [facility] [address] [place] [address] Follow-up examination following surgery (Primary Dx); History of colostomy reversal Discharge Disposition: Home or Self Care Social History Tobacco Use Types Packs/Day Years Used Date Smoking Tobacco: Never Smokeless Tobacco: Never Tobacco Cessation:Counseling Given: Not Answered Alcohol Use Standard Drinks/Week Comments Not Currently 0 (1 standard drink = 0.6 oz pur e alcohol) [facility] Utilities Answer Date Recorded In the [...] Date Recorded PHQ-2 Total Score 0 11/08/2024 [facility] of Occupat ional Health - Occupational Stress [...] money to get more. Never true 11/08/2024 [facility] IP Transportation Answer D ate [...] Sustained Release Take 90 mg by mouth. Mudbp-1-IXJ-EPA- Fish Oil (FISH OIL) 1,200 (144-216) mg [...] this encounter Progress Notes * Jennifer Ely, WAGE AND SALARY SPECIALIST - 11/22/2024 9:00 AM EDT POST OP CSN:[id number] NAME:Alesha Szymanski :1945 Impression: 11/07 s/p Robotic sofia reversal Plan: Send [employer] message and wound update next week Reviewed [...] Jennifer Ely APRN Colon and rectal surgery [facility] Office phone (EGD): [phone] documented in this encounter Miscellaneous Notes * [...] [address] [place], [place] [address] Leta Dupont MD [address] [place] [address] 01/16/2025 7:30 AM EST - 01/16/2025 9:05 AM EST Surgery [facility] [address] [place] [address] Leta Dupont MD [address] [place] [address] [facility] COLPOCLEISIS 02/26/2025 9:00 AM EST Office Visit [facility] [address] [address] Antonina Ji PA-C [address] [place] [address] Scheduled Procedures Name Priority Associated Diagnoses [...] documented as of this encounter Care Teams Automation Analyst Relationship Specialty Start Date End Date Chas Barrera [address] [id number] [facility] [place] [address] PCP - General Family Medicine 11/08/24 documented as of this encounter
--- OUTSIDE RECORDS SUMMARY | 2024-11-27 06:45 | XMS_ITS ---
Author [facility] Address [address] [place] [id number] Care Team Providers Care Laborer Driver Name Role Phone Chas Barrera Primary Care Provider DanielCharlene brooks Unavailable [phone] Allergies No Known Allergies Results Component Value [...] Orally Once a day Active Vital Signs Blood pressure systolic 132 mm Hg 11/28/19 25 Blood pressure diastolic 70 mm Hg 025 Heart Rate 67 /min 11/27/2024 Height 58 in 11/27/2024 Weight 112.8 lbs 11/27/2024 BMI 23.57 kg/m2 11/27/2024 Encounters Encounter Location Date Provider Diagnosis [facility] [address] [place] [id number] 11/27/2024 Charlene Benoit Acute URI J06.9 and [...] Notes * QUEENIE ROSEDOB:1945 (79 yo F)Acc No.[id number]:11/27/2024 Progress Notes Patient: [place] Provider: MARVA Dang :1945 A ge:79 Y S ex:Female Date:11/27/2024 Address:[address] [place] [address], [place] Pcp:Chas Barrera Subjective: * Chief [...] Subcutaneous every 6 months , Discontinued Nystatin 021382 UNIT/ML Suspension 5 mL Mouth/Throat Three times [...] URI - J06.9 (Primary) 2 . B [place] 23.0-23.9, adult - Z68.23 ? Plan: * [...] G 2211 Complex e/[place], [address] CAPILLARY BLOOD DRAW, 58121 CBC WITH AUTO DIFF, 87408 COVID TEST IN HOUSE, Modifiers: QW , [address] Flu Test- Nasal Swab, Modifiers: QW , 1036F TOBACCO NON-USER, G8783 BP SCR PRFRM RCMDD DEFIND SCR INTVL, 3075F SYST BP GE 130 - 139MM HG, 3078F DIAST BP < 80 MM HG * Follow Up: N ovember fasting * Images: Billing Information: * Visit Code: 10767 Office Visit, Est Pt., Level 3. * Procedure Codes: G2211 Complex e/[place]. [address] CAPILLARY BLOOD DRAW. 81705 CBC WITH AUTO DIFF. 25882 COVID TEST IN HOUSE. Modifiers: QW 96435 Flu Test- Nasal Swab. Modifiers: QW 1036F TOBACCO NON-USER. G8783 BP SCR PRFRM RCMDD DEFIND SCR INTVL. 3075F SYST BP GE 130 - 139MM HG. 3078F DIAST BP < 80 MM HG. * Electronic signature of MARVA Elizalde on 12/05/2024 at 02:59 PM EDT Sign off status: Pending * Provider: MARVA Dang Date: 0 11/27/2024 Generated for Milanai ng/Falianeg/eTransmitting on: 0 12/05/2024 02:59 PM EDT History [...]
--- OUTSIDE RECORDS SUMMARY | 2024-11-27 06:45 | XMS_ITS ---
Author [facility] Address [address] [place] [phone] Care Team Providers Care Yarn Weight And Strength Tester Name Role Phone Chas Barrera Primary Care Provider DanielCharlene brooks Unavailable [phone] Allergies No Known Allergies Results Component Value [...] Encounter Location Date Provider [facility] [address] [place] [phone] 11/27/2024 Charlene Benoit Acute URI J06.9 and [...] Notes * QUEENIE ROSEDOB:1945 (79 yo F)Acc No.[id number]:11/27/2024 Progress Notes Patient: QUEENIE CANNON Provider: MARVA Dang :1945 A ge:79 Y S ex:Female Date:11/27/2024 Address:[address] [place] [address], [place] Pcp:Chas Barrera Subjective: * Chief [...] Subcutaneous every 6 months , Discontinued Nystatin 212771 UNIT/ML Suspension 5 mL Mouth/Throat Three times [...] URI - J06.9 (Primary) 2 . B SD 23.0-23.9, adult - Z68.23 ? Plan: * [...] G 2211 Complex e/[place], [address] CAPILLARY BLOOD DRAW, 58644 CBC WITH AUTO DIFF, 94552 COVID TEST IN HOUSE, Modifiers: QW , 03014 Flu Test- Nasal Swab, Modifiers: QW , 1036F TOBACCO NON-USER, G8783 BP SCR PRFRM RCMDD DEFIND SCR INTVL, 3075F SYST BP GE 130 - 139MM HG, 3078F DIAST BP < 80 MM HG * Follow Up: N ovember fasting * Images: Billing Information: * Visit Code: 12964 Office Visit, Est Pt., Level 3. * Procedure Codes: G2211 Complex e/[place]. [address] CAPILLARY BLOOD DRAW. 60171 CBC WITH AUTO DIFF. 30747 COVID TEST IN HOUSE. Modifiers: QW 44389 Flu Test- Nasal Swab. Modifiers: QW 1036F TOBACCO NON-USER. G8783 BP SCR PRFRM RCMDD DEFIND SCR INTVL. 3075F SYST BP GE 130 - 139MM HG. 3078F DIAST BP < 80 MM HG. * Electronic signature of MARVA Elizalde on 12/06/2024 at 12:55 PM EDT Sign off status: Pending * Provider: MARVA Dang Date: 0 11/27/2024 Generated for Milanai ng/Falianeg/eTransmitting on: 0 12/06/2024 12:55 PM EDT History [...]
[2024-12-05] VITALS (9 sets, daily range): BP systolic 104–158; BP diastolic 55–82; PULSE 62–106; RESP 16–29; TEMP 36.7–37; O2SAT 93–98; BMI 25.0; BMI 25.5
--- OUTSIDE RECORDS SUMMARY | 2024-12-05 09:15 | XMS_ITS ---
Author Organization [facility] Address [address] [facility] [address] [facility] [address] [place] [id number] Care Team Providers Care Leaf Fat Scraper Name Role Phone Chas Barrera Primary Care Provider [phone] Charlene Benoit Unavailable [phone] Allergies No Known Allergies Results Component Value Reference Range Notes Influenza Screen (in house) (Not yet reviewed by provider) Interpretation: Performing Lab: Notes/Report: results neg CBC Venipuncture (in house) (Not yet reviewed by provider) Interpretation: Performing Lab: Notes/Report: wbc 18.0 3.5 - 10 lymph 5.0% 15 - 50 mid 1.8% 2 - 15 gran 93.2% 35 - 80 rbc 3.02 3.5 - 5.5 hgb 9.9 11.5 - 16.5 hct 28.4 35 - 55 mcv 94.1 75 - 100 mch 32.9 25 - 35 mchc 35.0 31 - 38 platlet 194 100 - 400 P-Amylase (Not yet reviewed by provider) Interpretation: Performing Lab: Notes/Report: Test performed by [facility] [address] [place], [place] [address] , [address], [place] [address] Mitchel Dior MD, Solution Design Engineer CLIA: [id number] Amylase 42 28-100 U/L P-Comprehensive Metabolic Pa cruz (CMP) (Not yet reviewed by provider) Interpretation: Performing Lab: Notes/Report: Test performed by [facility] [address] [place], [place] [address] , [address], [place] [address] Mitchel Dior MD, Solution Design Engineer CLIA: [id number] Sodium 127 135-145 mmol/L Potassium 3.6 3.5-5.3 [...] <0.2-1.2 mg/dL A/G Ratio 1.5 1.1-2.5 P-Lipase (Not yet reviewed b y provider) Interpretation: Performing Lab: Notes/Report: Test performed by [facility], [address] , [address], [place] [address] Mitchel Dior MD, Solution Design Engineer CLIA: [id number] Lipase 14.0 13.0-60.0 U/L Covid test (in house) (Not y et reviewed by provider) Interpretation: Performing Lab: Notes/Report: Result: neg REASON FOR VISIT not sleeping well. no energy, due for DEXA after 12/28 Medications Medication SIG (Take, Route, Frequency, Duration) Notes Start Date End Date Status Benzonatate 200 MG 1 capsule as needed Orally Three times a day 11/27/2024 Active Carvedilol 12.5 MG Take 1 tablet by ren twice daily with food; Duration: 90 Active [...] 12/05/2024 Encounters Encounter Location Date Provider Diagnosis [facility] [address] [place] [id number] 12/05/2024 Charlene Benoit Dysuria R30.0 ; Acut e URI J06.9 ; Other fatigue R53.83 and Acute abdominal pain R10.9 Assessments Encounter Date Diagnosis (ICD Code) Assessment Notes Treatment Notes Treatment Clinical Notes Section Notes 12/05/2024 Dysuria (ICD-10 - R30.0) 12/05/2024 Acute URI (ICD-10 - J06.9) 12/05/2024 Other fatigue (ICD-10 - R53.83) 12/05/2024 Acute abdominal pain (ICD-10 - R10.9) Plan Of Treatment Pending Test Test Name Order Date Urinalysis - Inhouse 12/05/2024 Influenza Screen (in house) 12/05/2024 CBC Venipuncture (in house) 12/05/2024 P-Amylase 12/05/2024 P-Comprehensive Metabolic Panel (CMP) P-Lipase 12/05/2024 Covid test (in house) 12/05/2024 Progress Notes * ROSE QUEENIEDOB:1945 (79 yo F)Acc No.[id number]:12/05/2024 Progress Notes Patient: QUEENIE CANNON Provider: MARVA Dang :1945 A ge:79 Y S ex:Female Date:12/05/2024 Address:[address] [place] [address] KATTY, [place], [id number] Pcp:Chas Barrera Subjective: * Chief Complaints: * [...] HR: 73, Nurse: BENJI, Ht: 58, BMI:24.74. Assessment: * Assessment: 1. D ysuria - [...] results while patient in office. ?LAB: CBC Venipuncture (in house) (Collection Date [...] Provider reviewed results while patient in office. 3.?Other fatigue?LAB: P-Comprehensive Metabolic Panel (CMP) (Collection [...] Creatinine 15 L >59 - mL/min/1.73m2 * Charlene Benoit 12/05/2024 0 1:45:31 PM EDT >room 6, purple 4.?Acute abdominal pain?LAB: P-Amylase (Collection Date & Time - 12/05/2024 12:52 PM)* Value Reference Range A mylase 42 28-100 - U/L * Charlene Benoit 12/05/2024 0 1:45:31 PM EDT >room 6, purple ?LAB: P-Lipase (Collection Date & Time - 12/05/2024 12:52 PM)* Value Reference Range L ipase 14.0 13.0-60.0 - U/L * Charlene Benoit 12/05/2024 0 1:45:31 PM EDT >room 6, purple * Procedure Codes: 8 1002 Urinalysis, no micro, 98183 CBC WITH AUTO DIFF, 18900 VENIPUNCT, ROUTINE*, 29338 Flu Test- Nasal Swab, Modifiers: QW , 91003 COVID TEST IN HOUSE, Modifiers: QW * Images: Billing Information: * Visit Code: * Procedure Codes: 93260 Urinalysis, no micro. 56259 CBC WITH AUTO DIFF. 51417 VENIPUNCT, ROUTINE*. 47172 Flu Test- Nasal Swab. Modifiers: QW 02386 COVID TEST IN HOUSE. Modifiers: QW * Electronic signature of MARVA Elizalde on 12/06/2024 at 12:56 PM EDT Sign off status: Pending * Provider: AMRVA Dang Date: 0 12/05/2024 Generated for Printi ng/Faxing/eTransmitting on: 0 12/06/2024 12:56 PM EDT History and Physical Notes * HPI (History of Present Illness) Category Sub-Category Detail Notes Category Not es Constitutional Weakness Pt states she dunne s been feeling bad since 12/02. Pt states she is weak and has no energy. pt states she just wants to chill Pt states she vomited on 12/03 several times.
--- NOTE | 2024-12-05 14:45 | CT_ITS ---
FINAL REPORT TECHNIQUE: Thin section axial images are obtained through the abdomen and pelvis after intravenous contrast. Reconstruction images were obtained from the axial data. Exam was performed using dose reduction techniques. CLINICAL HISTORY: abdominal pain, nausea recent hernia x 4 months ago COMPARISON: 06/06/2024 and 09/05/2022 FINDINGS: LUNG BASES: Small right pleural effusion is new. Bilateral lower lobe atelectasis. Heart size is normal. LIVER: Hypervascular lesion in the left lobe of the liver measures 14 mm. Not seen on the previous noncontrast exam, but seen on [address] Appears to have increased slightly in size. Remainder of the liver is homogeneous. GALLBLADDER/BILIARY SYSTEM: Gallbladder is present. No gallstones. There is either gallbladder wall thickening or a small amount of pericholecystic fluid. No biliary dilatation. SPLEEN: Unremarkable. PANCREAS: Unremarkable. ADRENALS: Unremarkable. KIDNEYS/URETERS/BLADDER: No hydronephrosis. Bilateral hypodense lesions may represent cysts. Wall thickening of the urinary bladder could be related to cystitis. GI TRACT: No evidence of small-bowel obstruction. Long segment colonic wall thickening could be related to colitis, but nonspecific in the setting of ascites. There is diastasis of rectus muscles and small bowel loops protrude through the defect. Appendix not seen. PELVIC ORGANS: Uterus present. LYMPH NODES/RETROPERITONEUM/MESENTERY: No lymphadenopathy. No abdominal aortic aneurysm. ABDOMINAL WALL: The abdominal wall is intact. FREE FLUID: Small amount of abdominal and pelvic ascites. BONES: No acute osseous abnormality. IMPRESSION: Long segment colonic wall thickening could represent colitis but is nonspecific in the setting of the ascites. Diastasis of rectus muscles and small bowel loops protrude through the defect. Possible cystitis. Hypervascular liver lesion in the left lobe is indeterminate and may have increased in size since 2022. Consider MRI liver mass protocol. Small amount of ascites. Reviewed, Interpreted and Dictated by Tamara Guy MD Transcribed by Gale Swenson Authenticated and [facility]
--- NOTE | 2024-12-05 14:51 | ED_ITS ---
<Statement entered by Rodrick Parker MD - 12/06/24 12:23> I was consulted by the DARRYL, and we discussed the complexity of the problems being addressed. I approve the treatment and management plan for this patient's care in the emergency department, thus performing a substantive portion of the medical decision making. Rodrick Parker MD Discharge Plan Disposition Patient Disposition: Admitted Clinical Impressions Clinical Impression: Sepsis Discharge ED Provider: Zaid Garcia General Adult HPI General Chief complaint: Weakness Stated complaint: AMS, sent by PCP, WBC 18,000 Time Seen by Provider: 12/05/24 14:38 History of Present Illness HPI narrative: 79-year-old female presents from PCP office for altered mental status. When she arrived at the ED she is alert and oriented x 4. She had a reversal of her colostomy recently and has not been drinking and eating well. She had nausea couple days ago with vomiting but no diarrhea. She had been complaining of abdominal pain at her PCP office. She has not been urinating. She had a white count of 18 at her PCP office as well. They were concerned about the altered mental status and abdominal pain. Here in the ER she has not complained of pain, nausea or vomiting. She is completely oriented and without pain. Related Data Home Medications ?Medication ?Instructions ?Recorded ?Confirmed aspirin 81 mg tablet,delayed 81 mg PO MOWEFR 12/31/19 12/05/24 release (Adult Aspirin Regimen) atorvastatin 10 mg tablet 10 mg PO DAILY 05/22/2411/12 carvedilol 12.5 mg tablet 12.5 mg PO BID 06/19/2411/12 Previous Rx's ?Medication ?Instructions ?Recorded apixaban 5 mg tablet (Eliquis) 5 mg PO BID #30 tabs Allergies Allergy/AdvReac Type Severity Reaction Status Date / Time No Known Allergies Allergy Verified 10/14/24 09:02 [facility] Disclaimer: The information contained in this section may have been updated after the patient was seen, as this information can be updated by other users. 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 Hypertension Diastolic dysfunction HLD (hyperlipidemia) Abnormal echocardiogram Atelectasis of both lungs Pleural effusion, bilateral Dyspnea on exertion Chronic cough Shortness of Breath Hypertension High cholesterol Afib Surgical History (Updated 12/06/24 @ 08:45 by MARVA Garcia) History of colostomy reversal History of colectomy History of appendectomy Family History No significant family history Social History Smoking Status: Never smoker alcohol intake: never counseling provided: none (Patient does not smoke or use alcohol ) substance use type: denies use current occupational status: retired Travel in the last 8 weeks?: None household members: family housing: house caffeine: Yes do you feel safe at home: Yes victim of physical abuse: No victim of emotional abuse: No victim of sexual abuse: No Have you lived/traveled outside [place] in past 30 days?: No Contact w/someone who lives/traveled outside [place] past 30 days?: No Exposure to someone with infectious disease in past 14 days?: No Do you have a fever (greater than 100.4 F or 38 C)?: No Have you tested positive for COVID-19?: No Exposed to someone with COVID-19 in past 14 days?: No Do you have a sore throat?: No Do you have a cough?: No Do you have any weakness?: No Do you have any diarrhea?: No Are you experiencing any unusual bleeding?: No Do you have any muscle aches/pain?: No Do you have any abdominal pain?: No Are you experiencing loss of taste or smell?: No Other 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 Have you received the Flu Vaccine for this season: No Have you received the Pneumonia Vaccine: Yes ROS Obtained: Yes Systems reviewed as appropriate & no additional complaints except as documented Constitutional Constitutional: Reports as per HPI Physical Exam General General appearance: alert and in no apparent distress Head Head exam: atraumatic and normocephalic Eye Eye exam: Present PERRL and EOMI ENT ENT exam: Present normal oropharynx and mucous membranes moist Neck Neck exam: Present full ROM and trachea midline Respiratory Respiratory exam: Present normal lung sounds bilaterally Cardiovascular Cardiovascular exam: Present regular rate, normal rhythm, normal heart sounds, +S1 and +S2 Abdominal Exam Abdominal exam: Present soft and normal bowel sounds Comment: recent abdominal surgery Extremities Exam Extremities exam: Present full ROM and normal capillary refill Neurological Exam Neurological exam: Present alert, oriented X3 and normal gait Skin Skin exam: Present warm, dry and intact Medical Decision Making Medical Records Screening: Per USPSTF and CDC recommendations, given the prevalence of disease in our region, it is our hospital?s policy to screen for HIV and viral Hepatitis for all patients aged 18 and over and those with ongoing risk factors. Rui Inquiry Pt receiving controlled substance: No Rui was queried for this patient: No Vital Signs: 12/05/24 14:42 12/05/24 15:12 12/05/24 15:30 Temperature 98.1 F Temperature Source Oral Pulse Rate 76 73 Pulse Rate [Left Radial] 86 Respiratory Rate 20 22 17 Blood Pressure 104/64 L 106/55 L Blood Pressure [Right Arm] 113/64 Blood Pressure Mean [Right Arm] 80 02 Sat by Pulse Oximetry 96 97 95 Oxygen Delivery Method Room Air 12/05/24 16:00 12/05/24 16:30 12/05/24 17:01 Temperature Temperature Source Pulse Rate 62 84 85 Pulse Rate [Left Radial] Respiratory Rate 21 29 H Blood Pressure 120/72 117/82 121/69 Blood Pressure [Right Arm] Blood Pressure Mean [Right Arm] 02 Sat by Pulse Oximetry 95 95 96 Oxygen Delivery Method 12/05/24 17:31 12/05/24 18:42 Temperature 98.2 F Temperature Source Pulse Rate 88 80 Pulse Rate [Left Radial] Respiratory Rate 24 20 Blood Pressure 114/65 115/70 Blood Pressure [Right Arm] Blood Pressure Mean [Right Arm] 02 Sat by Pulse Oximetry 93 L Oxygen Delivery Method Room Air Lab Data Lab Results 12/05/24 14:45: Urine Color Yellow, Urine Appearance Clear, Urine pH 6.0, Ur Specific [place] 1.015, Urine Protein 2+ A, Urine Glucose (UA) Negative, Urine Ketones Negative, Urine Blood 3+ A, Urine Nitrate Negative, Urine Bilirubin Negative, Urine Urobilinogen 0.2, Ur Leukocyte Esterase 3+ A, Urine RBC Tntc, Urine WBC 10-20, Ur Squamous Epith Cells None, Ur Renal Epithelial Cell 3-5, Urine Bacteria 4+ 12/05/24 14:58: SARS-CoV-2 (PCR) Not detected, Influenza A Untype (PCR) Not detected, Influenza Type B (PCR) Not detected 12/05/24 15:02: WBC 19.1 H, RBC 2.89 L, Hgb 9.5 L, Hct 26.9 L, MCV 93.1, MCH 32.9 H, MCHC 35.3, RDW 13.4, Plt Count 168, MPV 8.9, Neut % (Auto) 88.6 H, Lymph % (Auto) 4.9 L, Nance % (Auto) 4.4, Eos % (Auto) 0.0 L, Baso % (Auto) 0.3, Neut # (Auto) 16.9 H, Lymph # (Auto) 0.9, Nance # (Auto) 0.8, Eos # (Auto) 0.0, Baso # (Auto) 0.1, ESR > 140 H, PT 13.0 H, INR 1.19 H, Sodium 123 L, Potassium 3.8, C hloride 86 L, Carbon Dioxide 25, Anion Gap 15.8 H, BUN 46 H, Creatinine 2.80 H, Estimated Creat Clear 14, Estimated GFR 16 L*, Est GFR ( Amer) 20 L, G lucose 166 H, Lactate 3.1 H, Calcium 9.2, Magnesium 2.2, Total Bilirubin 1.8 H, AST 52 H, ALT 39, Alkaline Phosphatase 95, Total Creatine Kinase 559 H*, T roponin I 0.04 H, C-Reactive Protein 291.4 H, Total Protein 6.1 L, Albumin 3.3 L , Globulin 2.8, Albumin/Globulin Ratio 1.2, Lipase 25, A. baumannii (PCR) Not detected 12/05/24 15:02: A. baumannii (PCR) Not detected, Bacteroides fragilis Not detected 12/05/24 15:02: Bacteroides fragilis Not detected, Nikki albicans (PCR) Not detected 12/05/24 15:02: Nikki albicans (PCR) Not detected, Nikki auris (PCR) Not detected 12/05/24 15:02: Nikki auris (PCR) Not detected, C. glabrata (PCR) Not detected 12/05/24 15:02: C. glabrata (PCR) Not detected, C. krusei (PCR) Not detected 12/05/24 15:02: C. krusei (PCR) Not detected, C. parapsilosis (PCR) Not detected 12/05/24 15:02: C. parapsilosis (PCR) Not detected, C. tropicalis (PCR) Not detected 12/05/24 15:02: C. tropicalis (PCR) Not detected, Cryptococcus neoformans PCR Not detected 12/05/24 15:02: Cryptococcus neoformans PCR Not detected, Enterobacterales (PCR) Detected A 12/05/24 15:02: Enterobacterales (PCR) Detected A, Enterococc faecalis PCR Not detected 12/05/24 15:02: Enterococc faecalis PCR Not detected, Enterococc faecium PCR Not detected 12/05/24 15:02: Enterococc faecium PCR Not detected, E. coli (PCR) Detected A 12/05/24 15:02: E. coli (PCR) Detected A, H. influenzae DNA Not detected 12/05/24 15:02: H. influenzae DNA Not detected, Klebsiella aerogenes (PCR) Not detected 12/05/24 15:02: Klebsiella aerogenes (PCR) Not detected, Klebsiella oxytoca PCR Not detected 12/05/24 15:02: Klebsiella oxytoca PCR Not detected, K. pneumoniae group (PCR) Not detected 12/05/24 15:02: K. pneumoniae group (PCR) Not detected, List. monocytogenes PCR Not detected 12/05/24 15:02: List. monocytogenes PCR Not detected, N. meningitidis (PCR) Not detected 12/05/24 15:02: N. meningitidis (PCR) Not detected, Proteus species (PCR) Not detected 12/05/24 15:02: Proteus species (PCR) Not detected, Salmonella spp. (PCR) Not detected 12/05/24 15:02: Salmonella spp. (PCR) Not detected, Serratia marcescens PCR Not detected 12/05/24 15:02: Serratia marcescens PCR Not detected, Staphylococcus sp PCR Not detected 12/05/24 15:02: Staphylococcus sp PCR Not detected, Staph aureus (PCR) Not detected 12/05/24 15:02: Staph aureus (PCR) Not detected, mecA/C & MREJ Resist Gene Not applicable 12/05/24 15:02: mecA/C & MREJ Resist Gene Not applicable, mecA/C-Methicil Resis Gene Not applicable 12/05/24 15:02: mecA/C-Methicil Resis Gene Not applicable, Staph epidermidis (PCR) Not detected 12/05/24 15:02: Staph epidermidis (PCR) Not detected, Staph lugdunensis (TEM- PCR) Not detected 12/05/24 15:02: Staph lugdunensis (TEM-PCR) Not detected, S. maltophilia (PCR) Not detected 12/05/24 15:02: S. maltophilia (PCR) Not detected, Streptococcus sp PCR Not detected 12/05/24 15:02: Streptococcus sp PCR Not detected, S.agalactiae Grp B DC Not detected 12/05/24 15:02: S.agalactiae Grp B DC Not detected, Strep pneumoniae (PCR) Not detected 12/05/24 15:02: Strep pneumoniae (PCR) Not detected, S. pyogenes GrpA DC Not detected 12/05/24 15:02: S. pyogenes GrpA DC Not detected, P. aeruginosa (PCR) Not detected 12/05/24 15:02: P. aeruginosa (PCR) Not detected, Adolfo/B-Vanco Res Genes Not applicable 12/05/24 15:02: Adolfo/B-Vanco Res Genes Not applicable, blaIMP Car res Gene PCR Not detected 12/05/24 15:02: blaIMP Car res Gene PCR Not detected, KPC-Carbap Res Gene PCR Not detected 12/05/24 15:02: KPC-Carbap Res Gene PCR Not detected, blaNDM Car Res Gene PCR Not detected 12/05/24 15:02: blaNDM Car Res Gene PCR Not detected, OXA-48 Carbapenem Resis Gene (PCR) Not detected 12/05/24 15:02: OXA-48 Carbapenem Resis Gene (PCR) Not detected, blaVIM Car Res Gene PCR Not detected 12/05/24 15:02: blaVIM Car Res Gene PCR Not detected, CTX-M Gene Resistance (PCR) Not detected 12/05/24 15:02: CTX-M Gene Resistance (PCR) Not detected, MCR-1 Resistance Gene Not detected 12/05/24 15:02: MCR-1 Resistance Gene Not detected 12/05/24 17:45: Troponin I 0.03 12/05/24 15:02 12/05/24 15:02 Orders (Tests/Meds): ED MEDICATIONS Generic Name Dose Route Start Last Admin Trade Name Deborah PRN Reason Stop Dose Admin Apixaban 2.5 mg 12/06/24 09:00 12/06/24 09:11 Apixaban 5mg Tablet PO 01/05/25 08:59 2.5 mg BID SUBHASH Administration Atorvastatin Calcium 10 mg 12/05/24 21:00 12/05/24 20:10 Atorvastatin 10mg Tablet PO 01/04/25 20:59 10 mg HS SUBHASH Administration Carvedilol 12.5 mg 12/05/24 21:00 12/06/24 09:11 Carvedilol 12.5mg Tablet PO 01/04/25 20:59 12.5 mg BID SUBHASH Administration Sodium Chloride 1,000 mls @ 50 mls/hr 12/05/24 18:00 12/05/24 18:59 Sod Chlor 0.9% 1000ml Bag IV 01/04/25 17:59 50 mls/hr .Q20H SUBHASH Administration Piperacillin Sod/Tazobactam 50 mls @ 100 mls/hr 12/06/24 10:00 Sod 2.25 gm/ Sodium Chloride IV 12/16/24 09:59 Q6H SUBHASH Sodium Chloride 10 ml 12/06/24 07:28 Sodium Chloride 0.9% 10ml Flush Syringe IV 01/05/25 07:27 NEEDED PRN Maintain IV Site Discontinued Medications Generic Name Dose Route Start Last Admin Trade Name Deborah PRN Reason Stop Dose Admin Apixaban 5 mg 12/05/24 21:00 12/05/24 20:10 Apixaban 5mg Tablet PO 01/04/25 20:59 5 mg BID SUBHASH Administration Lactated Ringer's 1,550 mls @ 775 mls/hr 12/05/24 14:46 12/05/24 17:21 Lactated Ringer's 1000 Ml Bag 30 ml/kg infuse over 2 hr (1550 ml) 12/05/24 16:45 Infused IV Infusion .Q2H ONE Protocol Piperacillin Sod/Tazobactam 100 mls @ 200 mls/hr 12/05/24 16:00 12/06/24 04:19 Sod 4.5 gm/ Sodium Chloride IV 12/15/24 15:59 Infused Q6H SUBHASH Infusion Iopamidol 75 ml 12/05/24 16:17 12/05/24 16:18 Iopamidol-370 (76%);100ml Bottle IV 12/05/24 16:18 75 ml ONCE ONE Administration Sodium Chloride 10 ml 12/05/24 16:17 12/05/24 16:18 Sodium Chloride 0.9% 10ml Syr (Rad Only) IV 12/05/24 16:18 10 ml ONCE ONE Administration ORDERS Category Date Time Status CT abdomen pelvis w con Stat Cat Scan 12/05/24 14:45 Completed Chest XR -- portable [XR chest portable] Stat Exams 12/05/24 15:23 Completed C-Reactive Protein Stat Lab 12/05/24 15:02 Completed CBC [Complete Blood Count Auto Diff] Stat Lab 12/05/24 15:02 Completed Comprehensive Metabolic Panel Stat Lab 12/05/24 15:02 Completed Creatine Kinase Stat Lab 12/05/24 15:02 Completed Erythrocyte Sedimentation Rate Stat Lab 12/05/24 15:02 Completed Lactic Acid Stat Lab 12/05/24 15:02 Completed Lipase Stat Lab 12/05/24 15:02 Completed Magnesium Stat Lab 12/05/24 15:02 Completed PT INR [Prothrombin Time INR] Stat Lab 12/05/24 15:02 Completed Rapid PCR Covid and Flu A/B Stat Lab 12/05/24 14:58 Completed Trop I [Troponin I] Stat Lab 12/05/24 15:02 Completed Troponin I Q3H Lab 12/05/24 17:45 Completed Troponin I Q3H Lab 12/05/24 21:30 Completed Urinalysis and Microscopic Stat Lab 12/05/24 14:45 Completed Blood Culture Stat Micro 12/05/24 14:47 Results Urine Culture Stat Micro 12/05/24 14:45 Results Medical Decision Narrative: Patient is a 79-year-old female presenting to the emergency department for evaluation of possible dehydration, nausea 2 days ago. Patient is hemodynamically stable and nontoxic-appearing upon arrival, afebrile. Differential diagnosis includes dehydration, renal failure, altered mental status, sepsis, among other. Workup will be conducted with hematologic labs, specific imaging. Initial inventions include crystalloid bolus, analgesics, antibiotics. Patient given zosyn in the ER as well as fluids. 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 Patient also with UTI. I discussed these findings with Dr Parker. I called Dr Harrison, who is oncall for [facility] for admission. Patient CT scan showed colitis. Please see ct report read by radiologist. Discussed findings with patient. She is agreeable to admission. Hunter also agreeable to admission. Patient stable throughout er stay. Critical Care Critical Care Time Critical Care Time: No
--- OUTSIDE RECORDS SUMMARY | 2024-12-05 14:59 | XMS_ITS | Patient Health Record ---
Author Organization [facility] Address [address] [place] [id number] Care Team Providers Care Water Project Manager Name Role Phone Chas Barrera Primary Care Provider Marie Harrison Unavailable [phone] Bettie Willson Unavailable [phone] Charlene Benoit Unavailable [phone] Allergies No Known Allergies Results Component Value [...] - 38 platlet 194 100 - 400 Covid test (in house) (Not y et reviewed by provider) Interpretation: Performing Lab: Notes/Report: Result: neg Covid test (in house) Reviewed date:11/27/2024 01:30:54 PM Interpretation: Performing Lab: Notes/Report: Result: neg CBC Fingerstick (in house) Reviewed date:11/27/2024 [...] - 38 plat 325 100 - 400 Influenza Screen (in house) Reviewed date:11/27/2024 01:30:54 PM Interpretation: Performing Lab: Notes/Report: results neg P-Iron Reviewed date:11/01/2024 05:11:29 PM Interpretation:Normal Performing Lab: Notes/Report: Test performed by [facility] [address] [place] [address] , [address], [place] [address] Mitchel Dior MD, Gamewell Operator CLIA: [id number] Iron 44 37-145 ug/dL P-Ferritin Reviewed date:11/01/2024 05:11:28 PM Interpretation:Normal Performing Lab: Notes/Report: Test performed by [facility] [address] [place] [address] , [address], [place] [address] Mitchel Dior MD, Gamewell Operator CLIA: [id number] Ferritin 75.4 13.0-301.0 ng/mL P-Comprehensive Metabolic Pa cruz (CMP) Reviewed date:11/01/2024 05:11:28 PM Interpretation:bun 27, Cr 1.25, gfr 44 Performing Lab: Notes/Report: Test performed by [facility] [address] [place] [address] , [address], [place] [address] Mitchel Dior MD, Gamewell Operator CLIA: [id number] Sodium 141 135-145 mmol/L Potassium 4.3 3.5-5.3 [...] 0.6 <0.2-1.2 mg/dL A/G Ratio 1.7 1.1-2.5 CBC Venipuncture (in house) Reviewed date:11/01/2024 05:11:29 [...] - 38 platlet 368 100 - 400 H-Iron Reviewed date:06/20/2024 08:55:35 AM Interpretation:106 Performing Lab: Notes/Report: SHARE RESULTS WITH TARI YU FE 106 37-170 ug/dL H-Ferritin Reviewed date:06/20/2024 08:55:35 AM Interpretation:260 Performing Lab: Notes/Report: SHARE RESULTS WITH TARI YU BRO 260 11.1-264 ng/ml Delta: 105 on 03/17/24-0420 H-CMP Reviewed date:06/20/2024 08:55:35 AM Interpretation:cL 97, [...] Interpretation: Performing Lab: Notes/Report: Test performed by [facility] [address] , [address], [place] [address] Mitchel Dior MD, Gamewell Operator CLIA: [id number] Vitamin D 25-Hydroxy 60.6 30.0-100.0 ng/mL Interpretation of Vitamin D 25 OH: < 20 ng/mL - Deficiency 20 - 29 ng/mL - Insufficiency 30 - 100 ng/mL - Sufficiency > 100 ng/mL - Super-therapeutic- toxicity may occur above this level. Clinical correlation required. P-Iron Reviewed date:06/07/2024 04:41:02 PM Interpretation: Performing Lab: Notes/Report: Test performed by [facility] [address] , [place] [address] Mitchel Dior MD, Gamewell Operator CLIA: [id number] Iron 34 37-145 ug/dL P-Ferritin Reviewed date:06/07/2024 04:41:02 PM Interpretation: Performing Lab: Notes/Report: Test performed by [facility] [address] , [address], [place] [address] Mitchel Dior MD, Gamewell Operator CLIA: [id number] Ferritin 438.0 13.0-301.0 ng/mL P-Culture, Urine Reviewed date:06/07/2024 04:41:02 PM Interpretation: Performing Lab: Notes/Report: Test performed by [facility] [address] , [address], [place] [address] Mitchel Dior MD, Gamewell Operator CLIA: [id number] Specimen Source Urine - Void Culture, Urine See Below Final Report : No Significant Growth P-Comprehensive Metabolic Pa cruz (CMP) Reviewed date:06/07/2024 04:41:03 PM Interpretation: Performing Lab: Notes/Report: Test performed by [facility] [address] [place] [address] , [address], [place] [address] Mitchel Dior MD, Gamewell Operator CLIA: [id number] Sodium 130 135-145 mmol/L Potassium 5.0 3.5-5.3 [...] Interpretation: Performing Lab: Notes/Report: Test performed by [facility] [address] [place] [address] , [address], [place] [address] Mitchel Dior MD, Gamewell Operator CLIA: [id number] Vitamin B12 5520 738-6530 pg/mL CBC Fingerstick (in house) Reviewed date:06/05/2024 [...] Interpretation: Performing Lab: Notes/Report: Test performed by [facility] [address] [place] [address] , [address], [place] [address] Mitchel Dior MD, Gamewell Operator CLIA: [id number] Iron 10 37-145 ug/dL P-Ferritin Reviewed date:05/01/2024 03:43:07 PM Interpretation: Performing Lab: Notes/Report: Test performed by [facility] [address] , [address], [place] [address] Mitchel Dior MD, Gamewell Operator CLIA: [id number] Ferritin 72.1 13.0-301.0 ng/mL P-Comprehensive Metabolic Pa cruz (CMP) Reviewed date:05/01/2024 03:43:07 PM Interpretation: Performing Lab: Notes/Report: Test performed by [facility] [address] , [address], [place] [address] Mitchel Dior MD, Gamewell Operator CLIA: [id number] Sodium 135 135-145 mmol/L Potassium 4.2 3.5-5.3 [...] - 38 platlet 541 100 - 400 P-Culture, Urine Reviewed date:06/27/2024 04:30:25 PM Interpretation:No growth Performing Lab: Notes/Report: Test performed by [facility] [address] [place] [address] , [address], [place] [address] Mitchel Dior MD, Gamewell Operator CLIA: [id number] Specimen Source Urine - Void Culture, Urine See Below Final Report : No growth Urinalysis - Inhouse Reviewed date:06/21/2024 02:34:49 PM Interpretation: Performing Lab: Notes/Report: Color/Clarity yellow/clear Leuk 1+ Nitrite neg Urobili 3.2 Protein neg pH 7.5 Blood trace intact Sp. Gr. 1.015 Ketone neg Bili neg Gluc neg H-ABG Reviewed date:03/17/2024 08:55:48 PM Interpretation: Performing Lab: Notes/Report: PHART 7.57 7.35-7.45 mmol/L CRITICAL RESULT Results called to:Shira CULVER by Edy Stark, RT at 2254 on 03/16/24 [id number] 24.0 35.0-45.0 mmhg PO2ART 68.4 80-100 mmhg [id number] 21.3 22.0-26.0 mmhg [id number] 22.1 23-27 mmhg BEART -0.7 -2.4-2.3 mmol/L [id number] 95 90-100 % O2 2 KD Y SOURCE Left Radial Influenza Screen (in house) Reviewed date:12/06/2023 01:07:35 PM Interpretation: Performing Lab: Notes/Report: results Neg Covid test (in house) Reviewed date:12/06/2023 03:36:14 PM Interpretation: Performing Lab: Notes/Report: Result: Pos Urinalysis - Inhouse Reviewed date:02/29/2024 03:13:30 PM Interpretation: Performing Lab: Notes/Report: Color/Clarity yellow/cloudy Leuk 2+ Nitrite Neg Urobili 3.2 Protein Neg pH 7.0 Blood 3+ Sp. Gr. 1.010 Ketone Neg Bili Neg Gluc Neg CBC Fingerstick (in house) Reviewed date:02/29/2024 03:13:10 [...] - 38 plat 354 100 - 400 P-Vitamin B12 Reviewed date:03/01/2024 08:46:38 AM Interpretation: Performing Lab: Notes/Report: Test performed by [facility] [address] [place] [address] , [address], [place] [address] Mitchel Dior MD, Gamewell Operator CLIA: [id number] Vitamin B12 314 813-6945 pg/mL P-Culture, Urine Reviewed date:03/04/2024 04:50:11 PM Interpretation: Performing Lab: Notes/Report: Test performed by [facility] [address] [place] [address] [address], [address], [place] [address] Mitchel Dior MD, Gamewell Operator CLIA: [id number] Specimen Source Urine - Void Culture, Urine See Below Final Report : No growth P-Reticulocyte Count Reviewed date:03/01/2024 08:46:38 AM Interpretation: Performing Lab: Notes/Report: Test performed by [facility] [address] [place] [address] [address], [place] [address] Mitchel Dior MD, Gamewell Operator CLIA: [id number] Reticulocyte Count 1.8 0.5-2.1 % P-Ferritin Reviewed date:03/01/2024 08:46:38 AM Interpretation: Performing Lab: Notes/Report: Test performed by [facility] [address] [place] [address] [address], [place] [address] Mitchel Dior MD, Gamewell Operator CLIA: [id number] Ferritin 9.2 13.0-301.0 ng/mL P-Iron Reviewed date:03/01/2024 08:46:38 AM Interpretation: Performing Lab: Notes/Report: Test performed by [facility] [address] [place] [address], [place] [address] Mitchel Dior MD, Gamewell Operator CLIA: [id number] Iron 16 37-145 ug/dL P-Vitamin D 25-Hydroxy Reviewed date:03/01/2024 08:46:38 AM Interpretation: Performing Lab: Notes/Report: Test performed by [facility] , [address], [place] [address] Mitchel Dior MD, Gamewell Operator CLIA: [id number] Vitamin D 25-Hydroxy 71.2 30.0-100.0 ng/mL Interpretation of Vitamin D 25 OH: < 20 ng/mL - Deficiency 20 - 29 ng/mL - Insufficiency 30 - 100 ng/mL - Sufficiency > 100 ng/mL - Super-therapeutic- toxicity may occur above this level. Clinical correlation required. Urinalysis - Inhouse Reviewed date:12/14/2023 10:05:27 AM [...] 11:22:31 AM Interpretation:Negative Performing Lab: Notes/Report: Negative Rapid Strep- Inhouse Reviewed date:01/10/2024 01:10:01 PM Interpretation: Performing Lab: Notes/Report: strep test Neg CBC Fingerstick (in house) Reviewed date:01/10/2024 01:10:10 [...] - 38 plat 426 100 - 400 CBC Fingerstick (in house) Reviewed date:07/31/2024 12:03:02 [...] - 38 plat 285 100 - 400 Reason For Referral Diagnosis 1 Memory loss (R41.3) [facility] Referring Provider First Name Charlene Referring Provider Last Name Cy Referring Provider Speciality Physician Edging Catcher Referred Provider Neurology, . Referred Provider Specialty Neurology General Notes Charlene Benoit 2024 11:59:38 AM > Needs an appt with Tatiana Guerra Brynn 06/19/2024 12:01:06 PM > faxed to [facility] Tatiana Rodriguez Brynn 06/28/2024 11:09:20 AM > spoke to [facility]; referral received Referral Priority Routine Medications Medication SIG (Take, Route, Frequency, Duration) Notes Start Date End Date Status Vitamin C 1000 MG 1 tablet Orally [...] twice daily with food; Duration: 90 Active Fish Oil 1000 MG 1 capsule Orally Thr ee times a day Active Aspirin 81 81 MG 1 tablet Orally Once a day; Duration: 30 day(s) Active Eliquis 5 MG 1 tablet Orally twic e a day; Duration: 90 days Active Atorvastatin Calcium 10 MG 1 tablet Oral ly Once a day; Duration: 90 days Active Immunizations Vaccine Route Administration Date Status [...] W/U Status Risk Notes Problem Essential hypertension (26381168) Essential (primary) hypertension (I10) Active confirmed Problem Sciatica (38079363) Sciatica (M54.30) Active confirmed Problem History of pulmonary embolus (499338990) History of pulmonary embolism (Z86.711) Active confirmed Problem Vitamin D deficiency (89438467) Vitamin D deficiency (E55.9) Active confirmed Problem Osteopenia (215673732) Osteopenia (M85.80) Active confirmed Problem Sciatic nerve lesion (794997975) Piriformis syndrome of left side (G57.02) Active confirmed Problem Osteoarthritis (419505456) Osteoarthritis (M19.90) Active confirmed Problem Iron deficiency anemia (15155902) Iron deficiency anemia (D50.9) Active confirmed Problem Paroxysmal atrial fibrillation (779276850) Paroxysmal atrial fibrillation (I48.0) Active confirmed Problem Acute exacerbation of chronic obstructive airways disease (883852421) COPD exacerbation (J44.1) Active confirmed Problem Memory loss (40620923) Memory loss (R41.3) Active confirmed Problem Hyperlipidemia (19103659) Other hyperlipidemia (E78.4) Active confirmed Problem Metabolic encephalopathy (01278534) Metabolic encephalopathy (G93.41) Active confirmed Problem Conductive hearing loss, bilateral (164247472) Conductive hearing loss, bilateral (H90.0) Active confirmed Problem Functional dyspepsia (8622725) Functional dyspepsia (K30) Active confirmed Problem Age-related osteoporosis (292709681) Age-related osteoporosis without current pathological fracture (M81.0) Active confirmed Problem Urge incontinence of urine (47685108) Urge incontinence (N39.41) Active confirmed Problem Constipation (64011804) Constipation, unspecified constipation type (K59.00) Active confirmed Problem COPD - Chronic obstructive pulmonary disease (90888997) Chronic obstructive pulmonary disease, unspecified COPD type (J44.9) Active confirmed Problem Anemia (031317758) Anemia, unspecified type (D64.9) Active confirmed Problem Colostomy present (477794430) Status post colostomy (Z93.3) Active confirmed Problem Insomnia (838411965) Insomnia, unspecified type (G47.00) Active confirmed Problem Atrial fibrillation with rapid ventricular response (676420568354800) Atrial fibrillation with rapid ventricular response (I48.91) Active confirmed Problem Urinary incontinence (138322117) Urinary incontinence, unspecified type (R32) Active confirmed Problem Allergic rhinitis (83581895) Seasonal allergic rhinitis due to other allergic trigger (J30.89) Active confirmed Problem Aortic valve sclerosis (48852066) Aortic valve sclerosis (I35.8) Active confirmed Problem Prolapse of uterus (81475529) Prolapse of uterus (N81.4) Active confirmed Problem Localized, primary osteoarthritis of the ankle and/or foot (281790999) 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) Active confirmed Problem Colostomy and enterostomy malfunction (136545065) Colostomy complication (K94.00) Active confirmed Problem Sciatica (27856467) Sciatica, unspecified laterality (M54.30) Active confirmed Problem Hyperlipidemia (58600182) Other hyperlipidemia (E78.49) Active confirmed Problem Vaginal pessary in situ (2016432561303) Presence of pessary (Z96.0) Active confirmed Problem Anemia (181843347) Acute anemia (D64.9) Active confirmed Problem Gastric reflux (722610157) Gastric reflux (K21.9) Active confirmed Vital Signs Heart Rate 73 /min 12/05/2024 Blood pressure diastolic 58 mm Hg 12/05/2024 Height 58 in 12/05/2024 Blood pressure systolic 118 mm Hg 12/05/2024 Weight 118.4 lbs 12/05/2024 BMI 24.74 kg/m2 12/05/2024 Encounters Encounter Location Date Provider Diagnosis [facility] [address] [place] [id number] 12/06/2023 Charlene Crowdy COVID-19 U07.1 [facility] [address] [place] [id number] 12/14/2023 Charlene Crowdy COVID-19 U07.1 ; Bronchitis J40 ; Dysuria R30.0 and Sore on scalp L98.9 [facility] [address] [facility] [address] [place] [id number] 01/10/2024 Charlene Crowdy Acute URI J06.9 and Anemia, unspecified type D64.9 [facility] [address] [place] [id number] 02/29/2024 Charlene Crowdy Acute anemia D64.9 ; Acute URI J06.9 ; Microscopic hematuria R31.29 ; Wheezing R06.2 ; Vitamin D deficiency E55.9 ; Vitamin B12 deficiency E53.8 and Osteopenia, unspecified location M85.80 [facility] [address] [facility] [address] [place] [id number] 03/07/2024 J Felix Harrison Age-related osteoporosis without current pathological fracture M81.0 [facility] [address] [place] [id number] 03/12/2024 R Jayant Barrera COPD exacerbation J4 4.1 and Iron deficiency anemia D50.9 [facility] [address] [place] [id number] 04/26/2024 Charlene Benoit Perforation of intestine K63.1 ; Status post colostomy Z93.3 ; Pneumonia of both lower lobes due to infectious organism J18.9 ; Pleural effusion, bilateral J90 ; Essential (primary) hypertension I10 ; History of pulmonary embolism Z86.711 ; Paroxysmal atrial fibrillation I48.0 ; Other hyperlipidemia E78.4 and Chronic anemia D64.9 [facility] [address] [facility] [address] [place] [id number] 06/05/2024 Charlene Cy Essential (primary) hypertension I10 ; Paroxysmal atrial fibrillation I48.0 ; Recurrent UTI N39.0 ; Iron deficiency anemia D50.9 ; Presence of pessary Z96.0 ; Chronic obstructive pulmonary disease, unspecified COPD type J44.9 ; Vitamin B12 deficiency E53.8 ; Vitamin D deficiency E55.9 and Weight loss R63.4 [facility] [address] [place], [place] [id number] 06/19/2024 Charlene Cy Hyponatremia E87.1 ; Hyperkalemia E87.5 ; Urinary tract infection without hematuria, site unspecified N39.0 ; Metabolic encephalopathy G93.41 ; Acute renal failure, unspecified acute renal failure type N17.9 ; Memory loss R41.3 ; Iron deficiency E61.1 ; Generalized weakness R53.1 and BMI 21.0-21.9, adult Z68.21 [facility] [address] [place], [place] [id number] 06/21/2024 Charlenemagali Benoit Microscopic hematuri a R31.29 ; Insomnia, unspecified type G47.00 and BMI 22.0-22.9, adult Z68.22 [facility] [address] [place] [id number] 07/31/2024 Charlene Cy Lower extremity corky a R60.0 ; Colostomy complication K94.00 and Acute cough R05.1 [facility] [address] [place], [place] [id number] 10/23/2024 Charlenemagali Benoit Preop general physic al exam Z01.818 and BMI 23.0-23.9, adult Z68.23 [facility] [address] [place] [id number] 10/31/2024 Charlene Cy Iron deficiency anem ia D50.9 ; Essential (primary) hypertension I10 and Pre-op evaluation Z01.818 [facility] [address] [place], [place] [id number] 11/27/2024 Charlenemagali Benoit Acute URI J06.9 and BMI 23.0-23.9, adult Z68.23 [facility] [address] [place], [place] [id number] 12/05/2024 Charlene Crowdy Dysuria R30.0 ; Acut e URI J06.9 ; Other fatigue R53.83 and Acute abdominal pain R10.9 [facility] [address] [place], [place] [id number] 11/04/2024 R Jayant Bruce [facility] [address] [place] [id number] 11/27/2024 Charlene Crowdy [facility] [address] [place] [id number] 03/01/2024 Charlene Crowdy [facility] [address] [place], [place] [id number] 04/17/2024 R Jayant Bruce [facility] [address] [place] [id number] 05/01/2024 Charlene Crowdy [facility] [address] [place] [id number] 05/27/2024 R Jayant Bruce [facility] [address] [place] [id number] 06/07/2024 Charlene Crowdy [facility] [address] [place] [id number] 06/20/2024 Charlene Crowdy [facility] [address] [place] [id number] 07/10/2024 R Jayant Bruce [facility] [address] [place] [id number] 07/31/2024 R Jayant Bruce [facility] [address] [place] [id number] 09/05/2024 R Jayant Bruce [facility] [address] [place] [id number] 09/30/2024 Bettie Willson [facility] [address] [place] [id number] 10/21/2024 R Jayant Bruce [facility] [address] [place] [id number] 10/25/2024 Charlene Benoit [facility] [address] [place] [id number] 10/30/2024 Chralene Benoit Assessments Encounter Date Diagnosis (ICD Code) Assessment Notes Treatment Notes Treatment Clinical Notes Section Notes 12/06/2023 COVID-19 (ICD-10 - U07.1) Fluids, rest, [...] intestine (ICD-10 - K63.1) Discharge summaries from [facility] reviewed. She has been on eliquis at [place] but her daughter states she has the [...] will need an appt with Dr. Hurtado. 10/23/2024 Preop general physical exam (ICD-10 - Z01.818) 10/23/2024 BMI 23.0-23.9, adult (ICD-10 - Z68.23) 11/27/2024 Acute URI (ICD-10 - J06.9) 11/27/2024 BMI 23.0-23.9, adult (ICD-10 - Z68.23) 12/05/2024 Dysuria (ICD-10 - R30.0) 10/31/2024 Iron deficiency anemia (ICD-10 - D50.9) 12/05/2024 Acute URI (ICD-10 - J06.9) 12/05/2024 Other fatigue (ICD-10 - R53.83) 10/31/2024 Essential (primary) hypertension (ICD-10 - I10) 07/31/2024 Acute cough (ICD-10 - R05.1) She [...] go down and make an appt with [facility]. 04/26/2024 Pneumonia of both lower lobes due [...] 04/26/2024 Pleural effusion, bilateral (ICD-10 - J90) 10/31/2024 Pre-op evaluation (ICD-10 - Z01.818) 06/19/2024 Metabolic encephalopathy (ICD-10 - G93.41) 12/05/2024 Acute abdominal pain (ICD-10 - R10.9) 06/05/2024 Presence of pessary (ICD-10 - Z96.0) [...] house) 12/05/2024 CBC Venipuncture (in house) 12/05/2024 Mammogram 08/30/2023 Hemoccult- IFOBT (in house) 03/12/2024 H-CBC 06/19/2024 P-Amylase 12/05/2024 P-Comprehensive Metabolic Panel (CMP) P-Lipase 12/05/2024 Covid test (in house) 12/05/2024 Insurance Providers Payer Name Payer Address Payer Phone Subscriber Number Group Number Insured Name Patient Relationship to Insured Coverage Start Date Coverage End Date [employer] (MEDICARE) [address] [address] [place] [address] [id number] QUEENIE ROSE Self - patient is the insured MEDICAID [employer] [address] [place] [id number] ROSEQUEENIE Self - patient is the insured Medications [...] Surgical History Surgery Date(Month/Year) Appendectomy Colostomy 03/2024 colostomy reversal 11/07/2024 Hospitalization History Reason Date(Month/Year)
--- OUTSIDE RECORDS SUMMARY | 2024-12-05 15:00 | XMS_ITS | Clinical Summary ---
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
--- OUTSIDE RECORDS SUMMARY | 2024-12-05 15:00 | XMS_ITS | Encounter Summary ---
Author Organization [place] [address] Care Team Providers Care Transfer Clerk Name Role Phone Unavailable Primary Care Provider Unavailabl e Reason for Visit * Reason Onset Date Comments Surgery Scheduling 09/05/2024 Encounter Details Date Type Department Care Team (Late st Contact Info) Description 09/05/2024 Telephone [facility] [address] [id number] Melanie Yan LPN Surgery Scheduling Social History Tobacco Use [...] Miscellaneous Notes * Addendum Note - Melanie Yan LPN - 10/10/2024 10:03 AM EDTAddended by: MELANIE YAN on: 10/10/2024 10:03 AM Modules accepted: Orders * Telephone Encounter - Melanie Yan LPN - 10/10/2024 9:47 AM EDTSummary: Surgery Scheduled Discussed surgery date(s)/time(s) w/ Dr. Little. Coordinated case w/ Dr. Arzola would not be able mahnaz done until at least March, Kellie was okay with 2 different procedures Date: 01/16/25 Time: 07 To be Scheduled: [place] colpocleisis, posterior repair [...] and Daughter * Telephone Encounter - Melanie Yan LPN - 10/04/2024 10:28 AM EDT TEAMS message sent to Isa (Dr. Arzola's tire layer) advising that Dr. Arzola sent a message to that she sent Patient's order for surgery. I advised thru my message that Dr. Little agrees togo to [facility] on a Monday or , Dr. Little will need to start at 0730 so she is able to get to [place] to finish her day and Patient wants early October. That will not work because Dr. Little is [place] the first week of October and in [place] the Monday and already scheduled for a Coordinated Case on. I will wait for a return message from Isa * Telephone Encounter - Melanie Yan LPN - 09/11/2024 10:26 AM EDT Spoke with Isa (Dr. Arzola's tire layer) thru TEAMS. She has scheduled Patient's Colonoscopy. She has not received Colostomy Reversal orders yet but she is making a note that when they are ready to schedule she will get in contact with me about a combined case. * Telephone Encounter - Melanie Yan LPN - 09/09/2024 2:42 PM EDT Received a vmm from Kellie abernathy, who states they are getting everything set up for surgery for colostomy reversal. She states she will call me when that is all completed. * Telephone Encounter - Melanie Yan LPN - 09/05/2024 2:47 PM EDT Lmtcb [...] Encounter [facility] [address] [place] [address] Leta Dupont MD [address] [place] [address] [id number] 01/16/2025 7:30 AM EST - 01/16/2025 9:05 AM EST Surgery [facility] [address] [place] [address] Leta Dupont MD [address] [place] [id number] [place] COLPOCLEISIS 02/26/2025 9:00 AM EST Office Visit [facility] [address] [phone] Antonina Ji PA-C [address] [place] [id number] Scheduled Orders Name Type Priority Associated [...] Visit Diagnoses Diagnosis Uterovaginal prolapse, incomplete- Primary Uterovaginal prolapse, incomplete- Primary Uterovaginal prolapse, incomplete documented in this encounter Additional Health Concerns Active Problems Noted Date Diagnosed Date Autogenerated Problem 10/10/2024 documented as of this encounter
--- OUTSIDE RECORDS SUMMARY | 2024-12-05 15:00 | XMS_ITS | Referral Summary ---
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
--- NOTE | 2024-12-05 15:01 | ECG_ITS ---
APPROVED REPORT Exam: Resting ECG HR:75 bpm ECG Measurements Heart Rate 75 AXES DE 153 P 49 QRSd 129 QRS 59 QT 392 T 40 QTc 421 Conclusion SINUS RHYTHM POSSIBLE RIGHT VENTRICULAR CONDUCTION DELAY [RSR (QR) IN V1/V2] BORDERLINE ECG UNCONFIRMED REPORT Electronically signed by : ANGEL MA, 12/06/2024 03:58:01
[2024-12-05 15:02] LABS: Coronavirus 19, PCR Not Detected (NotDetected); Influenza A, PCR Not Detected (NotDetected); Influenza B, PCR Not Detected (NotDetected)
--- OUTSIDE RECORDS SUMMARY | 2024-12-05 15:02 | XMS_ITS | Clinical Summary ---
Author Organization [facility] Address [address] [place] [address] Phone Care Team Providers Care Diabetes Clinical Manager Name Role Phone Chas Barrera Primary Care Provider [phone] Allergies No known active allergies Medications NIFEdipine [...] by mouth every 24 hours. 5 Active Denosumab (PROLIA) 60 mg/mL SubQ Syringe Inject 60 mg under the skin Every 6 Months. 3 Active ferrous sulfate 325 mg (65 mg iron) Oral Tablet, Delayed Release (E.C.) Take 325 mg by mouth daily (with breakfast). 4 Active apixaban (ELIQUIS) 5 mg Oral Tablet Take by mouth 2 times daily. Active Multivitamin Cmb No.21-Iron-FA (CENTRUM WOMEN) 18-400 mg-mcg Oral Tablet Take by mouth. Active Vitamin D3-Menaquinone 7 25 mcg (1,000 unit)-90 mcg Oral Tablet, Rapid Dissolve Dissolve by mouth daily. Active Magnesium 200 mg Oral Tablet Take by mouth daily. Active [id number]-[id number] -Fish Oil (FISH OIL) 1,200 (144-216) mg Oral Capsule Take by mouth. Active oxyCODONE (ROXICODONE) 5 mg Oral Tablet Take 1 Tablet by mouth every 4 hours as needed for Acute Pain > 3 Days Medically Necessary (R52). 20 Tablet 11/11/2024 12:18 PM EDT 5 Active acetaminophen (TYLENOL) 500 mg Oral Tablet Take 2 Tablets by mouth every 6 hours. 40 Tablet 5 Active acetaminophen (TYLENOL) 500 mg Oral Tablet Take 500 mg by mouth every 6 hours. 5 11/12/19 25 Discontinu ed(Stop Taking at Discharge) polyethylene glycol (GOLYTELY) 236-22.74-6.74 -5.86 gram Oral Recon SolnIndications :Colostomy status (HCC) At 2 pm on the day prior, drink THE ENTIRE volume. Clear liquids ALL DAY prior. 4000 mL 5 11/08/19 25 Discontinu ed(Stop Taking at Discharge) neomycin (MYCIFRADIN) 500 mg Oral TabletIndicatio ns:Colostomy status (HCC) Two tablets by mouth at 2 pm, 3pm, and 7 pm the day before surgery. 6 Tablet 5 11/08/19 25 Discontinu ed(Stop Taking at Discharge) metroNIDAZOLE (FLAGYL) 500 mg Oral TabletIndicatio ns:Colostomy status (HCC) 2 tablets by mouth at 2 pm, 3 pm, and 7 pm the day before surgery. 6 Tablet 5 11/08/19 25 Discontinu ed(Stop Taking at Discharge) polyethylene glycol (GLYCOLAX) 17 gram/dose Oral PowderIndicatio ns:Uterovaginal prolapse, incomplete Begin Miralax, 17 g (1 capful) PO mixed in your favorite drink once a day beginning 1 week prior to surgery, after surgery drink this twice a day for 2 weeks 595 g 5 11/12/19 25 Discontinu ed(Stop Taking at Discharge) Active Problems [...] Encounters Date Type Department Care Team Description 11/22/2024 9:00 AM EDT - 11/22/2024 11:59 PM EDT Hospital Encounter [place] [address] Jennifer Ely, WAREHOUSE DELIVERY DRIVER Follow-up examination following surgery (Primary Dx); History of colostomy reversal Discharge Disposition: Home or Self Care 11/07/2024 7:33 AM EDT [facility] [address] [place] [id number] Christal Owens MD Wilson, Christine E, APRN 11/07/2024 7:30 AM EDT - 11/07/2024 11:50 AM EDT [facility] [address] [place] [address] Monica Arzola MD DAVINCI ROBOTIC REVERSAL NII POUCH 11/07/2024 5:28 AM EDT - 11/11/2024 1:27 PM EDT Hospital Encounter [facility] [address] [place] [address] Monica Arzola MD Colostomy status (HCC) Discharge Disposition: Home or Self Care 11/07/2024 Travel 10/31/2024 10:30 AM EDT Office Visit [facility] [address] [place] [address] [place] [phone] Jennifer Ely, WAREHOUSE DELIVERY DRIVER Encounter for preoperative examination for general surgical procedure (Primary Dx); Colostomy status (HCC); Parastomal hernia without obstruction or gangrene 10/23/2024 9:35 AM EDT - 10/23/2024 11:59 PM EDT Hospital Encounter [facility] PRE-ADMIT TESTING [facility] [place] [id number] Colostomy status (HCC) (Primary Dx); Hypertension, unspecified type; Preop testing Discharge Disposition: Home or Self Care 10/23/2024 Travel 10/07/2024 Telephone [facility] [address] [place] [phone] Isa Barraza RMA Surgery Scheduling; Clearance 10/03/2024 9:38 AM EDT Anesthesia Event [facility] ENDOSCOPY [facility] [place] [address] Sean Rizo MD Trog, Lynnsey, ELISA 10/03/2024 8:44 AM EDT - 10/03/2024 11:59 PM EDT Hospital Encounter [facility] ENDOSCOPY [facility] [place] [id number] Monica Arzola MD English, Collin, MD Schwietering, Anna, CRNA Colostomy status (HCC); Colostomy present (HCC); Perforation of intestine (HCC) Discharge Disposition: Home or Self Care 10/03/2024 Orders Only [facility] [address] [place] [address] [place] [phone] Monica Arzola MD Perforated diverticulum (Primary Dx) 09/23/2024 10:24 AM EDT - 09/23/2024 11:59 PM EDT Hospital Encounter [address] [place] [id number] Monica Arzola MD Colostomy status (HCC) Discharge Disposition: Home or Self Care 09/16/2024 8:19 AM EDT - 09/16/2024 11:59 PM EDT Hospital Encounter [facility] [address] [place] [id number] Monica Arzola MD Colostomy status (HCC) Discharge Disposition: Home or Self Care 09/11/2024 Telephone [facility] [address] [place] [address] [place] [phone] Isa Barraza RMA Surgery Scheduling (colonoscopy) 09/06/2024 Telephone [facility] [address] [facility] [address] [place] [address] Lenora Baez MA Other 09/05/2024 Telephone [facility] [address] [phone] Melanie Villagomez LPN Surgery Scheduling 09/04/2024 2:00 PM EDT Office Visit [facility] [address] [phone] Leta Dupont MD Uterovaginal prolapse, incomplete (Primary Dx) from Last 3 Months Immunizations Immunization Administration Dates Next Due Influenza High Dose 12/31/2019,11/20/2017 Pneumococcal Conjugate Vaccine 13 Valent 018 Pneumococcal Conjugate Vaccine 20 Valent 023 Pneumococcal Polysaccharide 23 Valent 04/14/2021 Quadrivalent Influenza High Dose 04/24/2024,12/11,04/14/2021 TST,Unspecified Formulation 04/04/2024, Tdap 08/02/2017 Surgical History Surgery Date Site/Laterality Comments COLON SURGERY 03/13/2024 APPENDECTOMY 1996 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 Date Comments Paroxysmal atrial fibrillation (HCC) Mixed hyperlipidemia Essential (primary) hypertension Family History 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 Relation Name Comments Anesth Problems Neg Hx Relation Name Status Comments Mother Social History Tobacco Use Types Packs/Day Years Used Date Smoking Tobacco: Never Smokeless Tobacco: Never Tobacco Cessation:Counseling Given: Not Answered Alcohol Use Standard Drinks/Week Comments Not Currently 0 (1 standard drink = 0.6 oz pur e alcohol) [facility] Utilities Answer Date Recorded In the [...] Date Recorded PHQ-2 Total Score 0 11/08/2024 [facility] [place] of Occupat ional Health - Occupational Stress [...] money to get more. Never true [facility]2024 [facility] Transportation Answer D ate Recorded In [...] 9.6 oz) 11/22/2024 9:54 AM EDT Height 147.3 cm (4' 10 ) 11/07/2024 5:4 6 AM EDT Body Mass Index 23.53 11/07/2024 5:46 AM EDT Plan of Treatment Upcoming Encounters Date Type Department Care Team (Latest Contact Info) Description 01/16/2025 7:30 AM EST Hospital Encounter [facility] [address] [place] [address] Leta Dupont MD [address] [place] [address] 01/16/2025 7:30 AM EST - 01/16/2025 9:05 AM EST Surgery [facility] [address] [place] [address] Leta Dupont MD [address] [place] [address] [place] COLPOCLEISIS 02/26/2025 9:00 AM EST Office Visit [facility] [address] [phone] Antonina Ji PA-C [address] [place] [address] Scheduled Procedures Name Priority Associated [...] series) 07/06/2022 COVID-19 Vaccine ( - season) 2024 Influenza Vaccine (#1) 2024 5, 12/28/2022, 04/14/2021, [...] - TELEMETRY Routine 11/09/2024 7:49 PM EDT BASIC METABOLIC PANEL Routine 11/09/2024 9:56 AM EDT CBC Routine 11/09/2024 9:56 AM EDT ECG AND WAVEFORMS - TELEMETRY Routine 11/09/2024 7:00 AM EDT ECG AND WAVEFORMS - TELEMETRY Routine 11/09/2024 5:12 AM EDT ECG AND WAVEFORMS - TELEMETRY Routine 11/08/2024 7:35 PM EDT BASIC METABOLIC PANEL Routine 11/08/2024 7:14 AM EDT CBC WITH DIFF Routine 11/08/2024 7:14 AM EDT ECG AND [...] 11/07/2024 8:23 AM EDT Colostomy status (HCC) INTRAOP AIRWAY PLACEMENT Routine 11/07/2024 7:43 AM EDT HI LAPS CLSR NTRSTM LG/SM INT W/RESCJ & ANASTOMOSIS 11/07/2024 7:30 AM EDT Colostomy status (HCC) Special Needs th GLUCOSE METER POC Routine 11/07/2024 7:1 3 AM EDT ADMIT Routine 11/07/2024 5:37 AM EDT BB HISTORY CHECK Routine 10/23/2024 11:0 5 AM EDT Colostomy status (HCC) Preop testing SURGERY DATE Routine 10/23/2024 11:05 AM EDT Colostomy status (HCC) Preop testing ANTIBODY SCREEN IGG Routine 10/23/2024 1 1:05 AM EDT Colostomy status (HCC) Preop testing ABORH Routine 10/23/2024 11:05 AM EDT Colostomy status (HCC) Preop testing PREADMISSION TYPE AND SCREEN Routine 10/23/2024 11:05 AM EDT Colostomy status (HCC) Preop testing CBC WITH DIFF Routine 10/23/2024 11:05 AM EDT Preop testing Colostomy status (HCC) COLONOSCOPY Routine 10/03/2024 10:08 AM EDT Colostomy status (HCC) Colostomy present (HCC) Perforation of intestine (HCC) INTRAOP AIRWAY PLACEMENT Routine 10/03/2024 9:[address] ABDOMEN PELVIS W CONTRAST Routine 09/23/2024 10:47 AM EDT Colostomy status (HCC) CREATININE ISTAT Routine 09/23/2024 10:3 4 AM EDT FL BARIUM ENEMA Routine 09/16/2024 9:27 AM EDT Colostomy status (HCC) from Last 3 Months Results * SCANNED RHYTHM STRIPS (11/12/2024 12:37 PM EDT) Anatomical Region Laterality Modality Other 11/12/2024 12:3 7 PM EDT us Unknown Provider IMG ECG ORDERABLES Final Result * ECG AND WAVEFORMS - TELEMETRY (11/11/2024 7:53 AM EDT) Only the most recent of7 resultswithin the time period is included. ECG INTERPRET NSR [facility] 11/11/2024 7:53 AM EDT Narrative [facility] - 11/11/2024 7:58 AM EDT EH - ROUTINE; IVCD HI 0.14 QRS 0.14 RR 0.75 QT 0.40 QTc 0.46 See Clinical Report link for waveform capture us Unknown Provider POINT OF CARE CARDIOLOGY Final Result [facility] [address] [place] [address] * (ABNORMAL) CBC (11/11/2024 6:29 AM EDT) Only the most recent of3 resultswithin the time period is included. WBC 6.7 3.7 - 10.3 x10(3)/mcL 11/11/2024 [...] 11/11/2024 7:06 AM EDT [facility] MCHC 32.5 30.7 - 35.5 g/dL 11/11/2024 7:06 AM EDT [facility] RDW 13.8 <=14.9 % 11/11/2024 7:06 AM EDT [facility] Platelet 284 155 - 369 x10(3)/[facility] 11/11/2024 7:06 AM EDT [facility] MPV 8.4(L) 8.8 - 12.5 fL 11/11/2024 7:06 AM EDT [facility] Blood VENOUS BLOOD / Unknown Venipuncture / Unknown 11/11/2024 6:29 AM EDT 11/11/2024 6:56 AM EDT us Nancy He MD HEMATOLOGY ORDERABLES Final Re sult [facility] [address] [facility] , [place] [address] * (ABNORMAL) BASIC METABOLIC PANEL (11/09/2024 9:56 AM EDT) Only the most recent of2 resultswithin the time period is included. Sodium 134(L) 136 - 145 mmol/L 11/09/2024 10:55 AM EDT [facility] Potassium 3.7 3.5 - 5.0 mmol/L 11/09/2024 10:55 AM EDT [facility] Chloride 99 98 - 107 mmol/L 11/09/2024 10:55 AM EDT [facility] Total CO2 23 22 - 29 mmol/L 11/09/2024 10:55 AM EDT [facility] Anion Gap 12 7 - 16 mmol/L 11/09/2024 10:55 AM EDT [facility] Calcium 9.4 8.8 - 10.4 mg/dL 11/09/2024 10:55 AM EDT [facility] Glucose Lvl 111(H) 70 - 99 mg/dL 11/09/2024 10:55 AM EDT [facility] BUN 15 8 - 23 mg/dL 11/09/2024 10:55 AM EDT [facility] Creatinine 0.99 0.51 - 1.30 mg/dL 11/09/2024 10:55 AM EDT [facility], [facility] eGFR (CKD-EPIcr 2020) 58(L) >=60 mL/min/1.7 3 m2 11/09/2024 10:55 AM EDT [facility] Comment:Estimated GFR was ca lculated using the CKD-EPIcr (2020) equation refit without race. The equation is recommended by the National Kidney Foundation - [place] [employer] of Nephrology Task Force. Blood VENOUS BLOOD / Unknown Venipuncture / Unknown 11/09/2024 9:56 AM EDT 11/09/2024 10:20 AM EDT us Nancy He MD CHEMISTRY ORDERABLES Final Res ult [facility] [address] [facility] , [place] [address] * (ABNORMAL) CBC WITH DIFF (11/08/2024 7:14 AM EDT) Only the most recent of2 resultswithin the time period is included. Pathologist [facility] WBC 10.1 3.7 - 10.3 x10(3)/mcL 11/08/2024 [...] 7:47 AM EDT [facility] Storey Percent 8.6 % 11/08/2024 7:47 AM EDT [facility] Eos Percent 0.4 % 11/08/2024 7:47 AM EDT [facility] Baso Percent 0.2 % 11/08/2024 7:47 AM EDT [facility] Neut # 7.1(H) 1.6 - 6.1 x10(3)/[facility] 11/08/2024 7:47 AM EDT [facility] [employer], [facility] Comment:Neutrophils equals s egs plus bands IMMGRAN# 0.0 0.0 - 0.1 x10(3)/[facility] 11/08/2024 7:47 AM EDT [facility] [employer], [facility] Comment:Automated count of m etamyelocytes, myelocytes and promyelocytes. An absolute IG <0.1 is reported as 0.0. Lymph # 2.0 1.2 - 3.9 x10(3)/[facility] 11/08/2024 7:47 AM EDT [facility] Storey # 0.9 0.3 - 0.9 x10(3)/[facility] 11/08/2024 7:47 AM EDT [facility] Eos# 0.0 0.0 - 0.5 x10(3)/[facility] 11/08/2024 7:47 AM EDT [facility], [facility] Baso # 0.0 0.0 - 0.1 x10(3)/[facility] 11/08/2024 7:47 AM EDT [facility] [employer], [facility] Blood VENOUS BLOOD / Unknown Venipuncture / Unknown 11/08/2024 7:14 AM EDT 11/08/2024 7:33 AM EDT us Jennifer Porter PA-C HEMATOLOGY ORDERABLES Final Result [facility] [employer] [address] [facility] , [place] [address] * (ABNORMAL) GLUCOSE METER POC (11/07/2024 12:05 PM EDT) Only the most recent of4 resultswithin the time period is included. [facility] Glucose Meter POC 152(H) 70 - 100 mg/dL 11/07/2024 12:07 PM EDT [facility] Sample Type Capillary 11/07/2024 12:07 PM EDT [facility] Patient Status Non-Critical Patient 11/07/2024 12:07 PM EDT [facility] Blood BLOOD SPECIMEN / Unknown 11/07/2024 12:05 PM EDT 11/07/2024 12:07 PM EDT Monica Arzola MD POINT OF CARE TEST ORDERABLES Fi nal Result [facility] [address] [place] [address] * PATHOLOGY TISSUE REQUEST (11/07/2024 8:23 AM EDT) CASE REPORT Surgical Pathology Case: [id number] Authorizing Provider: Monica Arzola MD Collected: 11/07/2024 0823 Ordering Location: [facility] Received: 11/07/2024 0835 Pathologist: Levi Bedoya MD Intraop: Liliane Qureshi MD Specimens: A) - Omentum, Omental tissue B) - Colostomy Site, Colostomy Trim C) - Large Intestine, Rectum, Rectal Stump D) - Abdominal, fat necrosis E) - Abdominal, Anastamotic rings 11/12/2024 5:43 PM EDT [facility] FINAL DIAGNOSIS A. Omental tissue, resection: [...] atypia or malignancy. 11/12/2024 5:43 PM EDT [facility] at 1743 EDT GROSS DESCRIPTION A. [...] mucosa throughout the specimen is crocker-white, unremarkable. Windows Desktop Engineer sections are submitted in 1 cassette. INGA [...] masses, or areas of dehiscence are identified. [employer] Desktop [employer] sections are submitted as follows: C1 = [...] material. Both tissues display unremarkable crocker-white mucosa. [employer] Desktop [employer] sections are submitted in 1 cassette. INGA Dong PA (ASCP) 11/12/2024 5:43 PM [facility] MICROSCOPIC DESCRIPTION The microscopic examination may have been rendered in whole, or in part, by analyzing high-resolution digital images (whole slide images) on the Ad[employer]ed Digital Pathology platform validated at [facility]. 11/12/2024 5:43 PM [facility] INTRAOPERATIVE CONSULTATION FSA. Negative for malignancy (fat necrosis and bzajvrq-vfri-efi e giant cell reaction). AM to [place] 11/12/2024 5:43 PM EDT [facility] EMBEDDED IMAGES 5:43 PM EDT [facility] Tissue OMENTUM STRUCTURE / Unknown 11/07/2024 8:23 [...] Arzola MD PATHOLOGY ORDERABLES Final Resul t [facility] [address] [place] [address], [facility] [phone] [place] [address] * INTRAOP AIRWAY PLACEMENT (11/07/2024 7:43 AM EDT) Narrative [facility] - 11/07/2024 7:43 AM EDT Cale Steen CRNA 11/07/2024 8:23 AM Intraop Airway Placement: Date/Time: 11/07/2024 7:43 AM Induction type: IV Mask size: Standard adult Pre-Oxygenation: Standard Mask ventilation: Easy mask ventilation Mask ventilation improved by: Oral airway Oral airway sizes: 90 Technique: Video laryngoscope Laryngoscope blade: Kannan Blade size: 2 Grade view: I Airway type: ETT- cuffed Topical Anesthetic/Lubricant: Lidocaine 2% jelly Intubation assist devices: Stylet 14fr Airway location: Oral Device size: 7mm Secured at: 19 cm Secured by: Tape Measured from: Lips Placement verified: Auscultation, End tidal CO2 and Symmetric chest wall motion Condition: Atraumatic and Unchanged Insertion attempts: 1 Title: MEDICAL INTERPRETER us Christal Owens MD HI ANESTHESIA Final Res ult Performing Organization Address [facility] Co de Phone Number [facility] [address] [place] [address] * BB HISTORY CHECK (10/23/2024 11:05 AM EDT) Pathologist [facility] BB HISTORY CHECK (1) No Previous History 10/23/2024 11:38 AM EDT [facility] Blood VENOUS BLOOD / Unknown Venipuncture / Unknown 10/23/2024 11:05 AM EDT 10/23/2024 11:11 AM EDT Swetha Bay APRN BLOOD BANK ORDERABLES Final Re sult Performing Organization Address [facility] Co de Phone Number [facility] [address] [place] [phone] * SURGERY DATE (10/23/2024 11:05 AM EDT) Pathologist [facility] Surgery Date (1) Complete 10/23/2024 11:45 AM EDT [facility] Blood VENOUS BLOOD / Unknown Venipuncture / Unknown 10/23/2024 11:05 AM EDT 10/23/2024 11:11 AM EDT Swetha Oscar WAREHOUSE DELIVERY DRIVER BLOOD BANK ORDERABLES Final Re sult Performing Organization Address City/[facility] Co de Phone Number [facility] [address] [place] [phone] * ABORH (10/23/2024 11:05 AM EDT) Pathologist [facility] ABORH Int A POS 10/23/2024 1:0 2 PM EDT [facility] Blood VENOUS BLOOD / Unknown Venipuncture / Unknown 10/23/2024 11:05 AM EDT 10/23/2024 11:11 AM EDT us Swetha Bay APRN BLOOD BANK ORDERABLES Final Re sult Performing Organization Address City/[facility] Co de Phone Number [facility] BLOOD [address] [address] * ANTIBODY SCREEN IGG (10/23/2024 11:05 AM EDT) ABSC IgG Int Negative 10/23/2024 1:02 PM EDT [facility] BLOOD [facility] Blood VENOUS BLOOD / Unknown Venipuncture / Unknown 10/23/2024 11:05 AM EDT 10/23/2024 11:11 AM EDT Swetha Bay APRN BLOOD BANK ORDERABLES Final Re sult Performing Organization Address [facility] de Phone Number [facility] BLOOD [address] [address] * COLONOSCOPY (10/03/2024 10:08 AM EDT) Anatomical [...] Quispe CRNA, MD Anesthesiologist Divya Novoa RN Brusher Monica Arzola MD Performing Provider Medications See [...] of bowel preparation was evaluated using the [place] Bowel Preparation Scale with scores of: right [...] AIRWAY PLACEMENT (10/03/2024 9:38 AM EDT) Narrative [facility] - 10/03/2024 9:38 AM EDT Clary Lovell CRNA 10/03/2024 10:19 AM Intraop Airway Placement: Date/Time: 10/03/2024 9:38 AM Airway type: Nasal cannula salter Sean Rizo MD HI ANESTHESIA Edited Result - Final [facility] [address] [place] [address] * CT ABDOMEN PELVIS W CONTRAST (09/23/2024 [...] - 1.3 mg/dL 09/23/2024 10:36 AM EDT [facility] Blood BLOOD SPECIMEN / Unknown 09/23/2024 10:34 AM EDT 09/23/2024 10:36 AM EDT us Monica Arzola MD POINT OF CARE TEST ORDERABLES Fi nal Result [facility] [address] [place] [address] * FL BARIUM ENEMA (09/16/2024 9:27 AM [...] of 12 images retained in PACS. FINDINGS: Strategic Advisor film the abdomen demonstrates moderate stool burden [...] of 12 images retained in PACS. FINDINGS: Strategic Advisor film the abdomen demonstrates moderate stool burden [...] Arzola MD IM FLUOROSCOPY ORDERABLES Final Result from Last 3 Months Additional Health Concerns Active Problems Noted Date Diagnosed Date Autogenerated Problem 10/10/2024 Insurance [employer] MEDICARE HMO MR MEDICAID [place] [employer] MEDICARE HMO MR Advance Directives For more information, please contact: [phone] * Full Code (Latest Code Status on File) Date Activated Date Inactivated Comments 11/07/2024 3:18 PM 11/11/2024 5:27 PM Care Teams Diabetes Clinical Manager Relationship Specialty Start Date End Date Chas Barrera [address] [place] [address] PCP - General Family Medicine 11/08/24
--- OUTSIDE RECORDS SUMMARY | 2024-12-05 15:02 | XMS_ITS | Encounter Summary ---
Author Organization [facility] [place] [address] Care Team Providers Care Band Cutting Machine Operator Name Role Phone Unavailable Primary Care Provider Unavailabl e Encounter Details Date Type Department Care Team (Latest Contact Info) Description 11/07/2024 Travel Social History Tobacco Use Types Packs/Day Years Used Date Smoking Tobacco: Never Smokeless Tobacco: Never Alcohol Use Standard Drinks/Week Comments Not Currently 0 (1 standard drink = 0.6 oz pur e alcohol) [facility] Utilities Answer Date Recorded In the past [...] Date Recorded PHQ-2 Total Score 0 11/08/2024 [facility] [place] [facility] Occupat ional [facility] - Occupational Stress [...] money to get more. Never true 11/08/2024 [facility] IP Transportation Answer D ate Recorded [...] occasion? 0 11/07/2024 2:14 PM EDT Stewart Joyce, AMADOR AUDIT-C to Determine Rows 4-10 0 11/07/2024 2:14 PM EDT Whitney Joyce RN * Suicide Severity Rating Answer Date of Assessment Author No Risk 11/07/2024 2:15 PM EDT Whitney Joyce RN * Leon Suicide Severity Rating Scale (Q shift for [...] question 6) 0 11/07/2024 2:15 PM EDT Isiah, Whitney, R N 6. Have you ever done anythi ng, started to do anything, or prepared to do anything to end your life? 0 11/07/2024 2:15 PM EDT Whitney Loyd, RN documented as of this encounter Plan of Treatment Upcoming Encounters Date Type Department Care Team (Latest Contact Info) Description 01/16/2025 7:30 AM EST Hospital Encounter [facility] [address] [place] [address] Leta Dupont MD [address] [place] [address] [phone] 01/16/2025 7:30 AM EST - 01/16/2025 9:05 AM EST Surgery [facility] [address] [place] [address] Leta Dupont MD [address] [place] [id number] [place] COLPOCLEISIS 02/26/2025 9:00 AM EST Office Visit [facility] [address] [phone] Antonina Ji PA-C [address] [place] [address] Scheduled Procedures Name Priority Associated [...] Diagnoses Not on filedocumented in this encounter Additional Health Concerns Active Problems Noted Date Diagnosed Date Autogenerated Problem 10/10/2024 documented as of this encounter
--- OUTSIDE RECORDS SUMMARY | 2024-12-05 15:02 | XMS_ITS | Clinical Summary ---
Author Organization [facility] Address [address] [place] [address] Care Team Providers Care Manager Test Name Role Phone Ananth Almeida MD Primary Care Provider [phone] Social History Tobacco Use Types Packs/Day Years [...] or (1 - 1-dose 75+ series) 07/06/2022 [id number] Vaccine (1 - 2023- season) 2024 [facility]-Influenza Vaccine (#1) 11/11/202404/14, 12/31/2019, 11/20/2017 [facility]-DTaP,Tdap,and [...] patient's age to complete this topic Insurance [facility] MEDICARE Care Teams Manager Test Relationship Specialty Start Date End Date Ananth Almeida MD [address] [place] [address] PCP - General 03/13/20
--- OUTSIDE RECORDS SUMMARY | 2024-12-05 15:03 | XMS_ITS | Encounter Summary ---
Author Organization [place] [address] Care Team Providers Care Level Vial Setter Name Role Phone Unavailable Primary Care Provider Unavailabl e Reason for Visit * Reason Onset Date Comments Surgery Scheduling 10/07/2024 Clearance 10/07/2024 Encounter Details Date Type Department Care Team (Late st Contact Info) Description 10/07/2024 Telephone [facility] [address] [place] [address] Isa Barraza RMA Surgery Scheduling; [...] (FLAGYL) 500 mg Oral TabletIndications: Colostomy status (HCC) 2 tablets by mouth at 2 pm, 3 pm, and 7 pm the day before surgery. 6 Tablet 10/08/2024 5 neomycin (MYCIFRADIN) 500 mg Oral TabletIndications: Colostomy status (HCC) Two tablets by mouth at 2 pm, 3pm, and 7 pm the day before surgery. 6 Tablet 10/08/2024 5 polyethylene glycol (GOLYTELY) 236-22.74-6.74 -5.86 gram Oral Recon SolnIndications:Co lostomy status (HCC) At 2 pm on the day prior, drink THE ENTIRE volume. Clear liquids ALL DAY prior. 4000 mL 10/08/2024 documented in this encounter Miscellaneous Notes * Telephone Encounter - Monicadawson NIKOLE Tineo - 11/05/2024 8:35 AM EDT Images from the original note were not included. * Telephone Encounter - Isa Barraza RMA - 10/10/2024 2:54 PM EDT Surgery Information Date: 11/07/24 Arrival time: 5:30 am Location: [address] [place]. [address] Stop taking your Eliquis 3 days prior [...] concerns, please send me a message through Siasto or call the office at [phone]. Thanks! Isa AGUSTIN * Telephone Encounter - [...] Date: 10/17/24 Arrival time: 7:45 am Location: [address] [place]. [address] Pre testing department through the hospital will [...] concerns, please send me a message through Siasto or call the office at [phone]. Thanks! Isa AGUSTIN * Addendum Note - [...] -No anticoagulant -No weight loss meds Called Kellie and SERA to confirm that Dr. Barrera is the patients pcp. Called Dr. Pack office toget fax number and faxed the clearance. documented in this encounter Plan of Treatment Upcoming Encounters Date Type Department Care Team (Latest Contact Info) Description 01/16/2025 7:30 AM EST Hospital Encounter [facility] [address] [place] [address] Leta Dupont MD [address] [place] [phone] 01/16/2025 7:30 AM EST - 01/16/2025 9:05 AM EST Surgery [facility] [address] [place] [address] Leta Dupont MD [address] [place] [phone] [place] COLPOCLEISIS 02/26/2025 9:00 AM EST Office Visit [facility] [address] [phone] Antonina Ji PA-C [address] [place] [address] Scheduled Orders Name Type Priority Associated [...]
--- OUTSIDE RECORDS SUMMARY | 2024-12-05 15:03 | XMS_ITS | Encounter Summary ---
Author Organization [facility] [place] [address] Care Team Providers Care Manager Hydraulic Name Role Phone Unavailable Primary Care Provider Unavailabl e Encounter Details Date Type Department Care Team (Latest Contact Info) Description 10/23/2024 Travel Social History Tobacco Use Types Packs/Day [...] Encounter [facility] [address] [place] [address] Leta Dupont MD [address] [place] [phone] 01/16/2025 7:30 AM EST - 01/16/2025 9:05 AM EST Surgery [facility] [address] [place] [address] Leta Dupont MD [address] [place] [address] [phone] LE[facility] COLPOCLEISIS 02/26/2025 9:00 AM EST Office Visit [facility] [address] [address] Antonina Ji PA-C [address] [place] [address] Scheduled Procedures Name Priority Associated Diagnoses [...]
[2024-12-05] MEDS: LACTATED RINGERS 775 ML IV (15:09)
[2024-12-05 15:12] LABS: Microscopic, Urine URINE MICROSCOPIC (MICROSCOPIC)
[2024-12-05 15:14] LABS: Hematocrit 26.9 % (37.0-47.0); Hemoglobin 9.5 g/dL (12.2-16.2); Immature Granulocytes % 1.8 %; Mean Corpuscular HGB Conc 35.3 g/dL (31.8-35.4); Mean Corpuscular Hemoglobin 32.9 pg (27.0-31.2); Mean Corpuscular Volume 93.1 fl (81-99); Nucleated Red Blood Cells % 0 %; Platelet Count 168 K/mm3 (142-424); Red Blood Count 2.89 M/mm3 (4.20-5.40); Red Cell Distribution Width-SD 45.8 fL; White Blood Count 19.1 K/mm3 (4.8-10.8)
[2024-12-05 15:23] LABS: Chloride 86 mmol/L (98-107)
--- NOTE | 2024-12-05 15:23 | XR_ITS ---
FINAL REPORT CLINICAL HISTORY: sepsis COMPARISON: 03/13/2024 FINDINGS: A portable view of the chest was obtained. Cardiac and mediastinal silhouettes are within normal limits. NG tube has been removed. There are low lung volumes. The lungs are otherwise clear.. There is no pleural effusion or pneumothorax. IMPRESSION: No acute process on this portable exam. Reviewed, Interpreted and Dictated by Tamara Guy MD Transcribed by Mirta Diaz Authenticated and . [facility]
[2024-12-05 15:24] LABS: Bilirubin,Urine Negative (Negative); Color,Urine YELLOW (Yellow); Glucose,Urine (UA) Negative (Negative); Ketones,Urine Negative (Negative); Leukocyte Esterase,Urine 3+ (Negative); PH,Urine 6.0 (5.0-8.5); Protein,Urine 2+ (Negative); Specific Gravity, Urine 1.015 (1.005-1.030); Urobilinogen,Urine 0.2 EU/dl (0.2)
[2024-12-05 15:24] LABS: Albumin Level 3.3 g/dl (3.5-5.0); INR 1.19 (0.9-1.1); Potassium 3.8 mmoL/L (3.5-5.1); Prothrombin Time 13.0 seconds (10.1-12.5); Sodium 123 mmol/L (136-145)
[2024-12-05 15:26] LABS: Blood Urea Nitrogen 46 mg/dl (7-17); Creatinine Clearance Estimated 14 mL/min (50-200); Creatinine,Serum 2.80 mg/dl (0.52-1.04); Estimated Glomerular Filt Rate 16 ml/min (>60); GFR (African American) 20 ML/MIN (>60)
[2024-12-05 15:27] LABS: Alanine Aminotransferase 39 U/L (12-78); Albumin/Globulin Ratio 1.2 (1.1-1.8); Alkaline Phosphatase 95 U/L (38-126); Anion Gap 15.8 mEq/L (5-15); Aspartate Amino Transferase 52 U/L (14-36); Bilirubin,Total 1.8 mg/dl (0.2-1.3); Calcium 9.2 mg/dl (8.4-10.2); Carbon Dioxide 25 mmol/L (22.0-30.0); Creatine Kinase 559 U/L (30-135); Globulin 2.8 g/dL (1.3-3.2); Glucose 166 mg/dl (74-100); Lipase 25 U/L (23-300); Magnesium 2.2 mg/dl (1.6-2.3); Total Protein,Serum 6.1 g/dl (6.3-8.2)
[2024-12-05 15:39] LABS: Troponin I 0.04 ng/ml (0.00-0.034)
[2024-12-05 16:15] LABS: C-Reactive Protein 291.4 mg/L (0-4)
[2024-12-05] MEDS: SODIUM CHLORIDE 0.9% 10ML SYR (RAD ONLY) 10 ML IV (16:18)
[2024-12-05] MEDS: IOPAMIDOL-370 (76%);100ML BOTTLE 75 ML IV (16:18)
[2024-12-05] MEDS: PIPERACILLIN/TAZO 4.5 GM in 0.9 % SODIUM CHLORIDE 100 ML IV ×2 (16:20→21:39)
[2024-12-05 16:51] LABS: RBC,Urine TNTC #/hpf (0-3)
[2024-12-05 16:52] LABS: Bacteria,Urine 4+ /lpf
[2024-12-05 18:35] LABS: Troponin I 0.03 ng/ml (0.00-0.034)
[2024-12-05] MEDS: 0.9 % SODIUM CHLORIDE 1000ML 1,000 ML 50 ML IV (18:59)
[2024-12-05 19:09] LABS: Reflex Lactic Add Lactic Reflex
[2024-12-05 19:51] LABS: Lactic Acid Follow Up (RFLX 1) 1.9 mmol/L (0.7-2.1)
--- NOTE | 2024-12-05 20:07 | P.PN_ITS ---
Subjective *Date: 12/05/24 *Time: 20:07 Interval history: 79-year-old white female admitted with altered mental status. She was seen initially today in [facility] by URMILA Benoit. She was directed to the emergency room for further evaluation. White blood cell count was found to be elevated. She has had some confusion. She had reversal of her colostomy November 07. In addition to her confusion today she has had some chilling. See ER report. Medical Exam Vital signs and Labs for Last 24 Hours: Vital Signs Temp Pulse Pulse Resp BP BP Pulse Ox 12/05/24 19:45 12/05/24 19:01 12/05/24 18:42 98.2 F 80 20 115/70 12/05/24 17:31 88 24 114/65 93 L 12/05/24 17:01 85 121/69 96 12/05/24 16:30 84 29 H 117/82 95 12/05/24 16:00 62 21 120/72 95 12/05/24 15:30 73 17 106/55 L 95 12/05/24 15:12 76 22 104/64 L 97 12/05/24 14:42 98.1 F 86 20 113/64 96 O2 Del Method 12/05/24 19:45 Room Air 12/05/24 19:01 Room Air 12/05/24 18:42 Room Air 12/05/24 17:31 12/05/24 17:01 12/05/24 16:30 12/05/24 16:00 12/05/24 15:30 12/05/24 15:12 12/05/24 14:42 Room Air Intake and Output 12/05/24 12/05/24 12/06/24 11:59 19:59 03:59 Intake Total 1650 / 1650 Balance 1650 / 1650 Intake: Intake, Total IV Amount 1650 / 1650 Lactated Ringers 1000ML 1,550 1550 / 1550 ml @ 775 mls/hr IV .Q2H ONE Rx# :[id number] Piperacillin/Tazo 4.5 gm In 0.9 100 / 100 % Sodium Chloride 100 ml @ 200 mls/hr IV Q6H [facility] Rx#:[id number] Other: Weight 122 lb 6 oz Patient Weight 12/06/24 11:59 Weight 122 lb 6 oz Laboratory Results - last 24 hr 12/05/24 14:45: Urine Color Yellow, Urine Appearance Clear, Urine pH 6.0, Ur Specific [place] 1.015, Urine Protein 2+ A, Urine Glucose (UA) Negative, Urine Ketones Negative, Urine Blood 3+ A, Urine Nitrate Negative, Urine Bilirubin Negative, Urine Urobilinogen 0.2, Ur Leukocyte Esterase 3+ A, Urine RBC Tntc, Urine WBC 10-20, Ur Squamous Epith Cells None, Ur Renal Epithelial Cell 3-5, Urine Bacteria 4+ 12/05/24 14:58: SARS-CoV-2 (PCR) Not detected, Influenza A Untype (PCR) Not d etected, Influenza Type B (PCR) Not detected 12/05/24 15:02: WBC 19.1 H, RBC 2.89 L, Hgb 9.5 L, Hct 26.9 L, MCV 93.1, MCH 32.9 H, MCHC 35.3, RDW 13.4, Plt Count 168, MPV 8.9, Neut % (Auto) 88.6 H, Lymph % (Auto) 4.9 L, Hickman % (Auto) 4.4, Eos % (Auto) 0.0 L, Baso % (Auto) 0.3, Neut # (Auto) 16.9 H, Lymph # (Auto) 0.9, Hickman # (Auto) 0.8, Eos # (Auto) 0.0, Baso # (Auto) 0.1, ESR > 140 H, PT 13.0 H, INR 1.19 H, Sodium 123 L, Potassium 3.8, Chloride 86 L, Carbon Dioxide 25, Anion Gap 15.8 H, BUN 46 H, Creatinine 2.80 H, Estimated Creat Clear 14, Estimated GFR 16 L*, Est GFR ( Amer) 20 L, Glucose 166 H, Lactate 3.1 H, Calcium 9.2, Magnesium 2.2, Total Bilirubin 1.8 H, AST 52 H, ALT 39, Alkaline Phosphatase 95, Total Creatine Kinase 559 H*, Troponin I 0.04 H, C-Reactive Protein 291.4 H, Total Protein 6.1 L, Albumin 3.3 L, Globulin 2.8, Albumin/Globulin Ratio 1.2, Lipase 25 12/05/24 17:45: Troponin I 0.03 12/05/24 19:26: Lactate 1.9 I & O for Labs for Last 24 Hours: Intake & Output 12/03/24 12/04/24 12/05/24 12/06/24 11:59 11:59 11:59 11:59 Intake Total 1650 / 1650 Balance 1650 / 1650 Weight 122 lb 6 oz Head: Present normocephalic Neck: Present normal inspection Respiratory: Present CTA bilaterally; Absent respiratory distress Cardiac: Present Tachycardia GI: Present soft and distention (Due to ventral hernia. Surgical scar is well- healed. There is a dressing in place that is clean and dry.) Rectal (female): Present deferred (female): Present deferred Extremities: Absent edema Skin: Present intact Neuro: Present Resting Tremor (She is having shaking chills.), alert (Conversant and cogent) and moves all extremities Assessment and Plan *Assessment and plan (1) Sepsis: Status: Acute Category: Medical Code(s): A41.9 - Sepsis, unspecified organism (2) Encephalopathy: Problem Comment: Recurrent encephalopathy in the setting of acute illnesses. Status: Resolved Qualifiers: Encephalopathy type: toxic metabolic Qualified Code(s): G92.8 - Other toxic encephalopathy Category: Medical Code(s): G93.40 - Encephalopathy, unspecified (3) Altered mental status: Status: Acute Qualifiers: Altered mental status type: unspecified Qualified Code(s): R41.82 - Altered mental status, unspecified Category: Medical Code(s): R41.82 - Altered mental status, unspecified (4) PAF (paroxysmal atrial fibrillation): Status: Chronic Category: Medical Code(s): I48.0 - Paroxysmal atrial fibrillation (5) Hypertension: Status: Chronic Qualifiers: Hypertension type: essential hypertension Qualified Code(s): I10 - Essential (primary) hypertension Category: Medical Code(s): I10 - Essential (primary) hypertension (6) Diastolic dysfunction: Status: Chronic Category: Medical Code(s): I51.89 - Other ill-defined heart diseases (7) Aortic insufficiency: Status: Chronic Qualifiers: Cardiac valve disease etiology: nonrheumatic Qualified Code(s): I35.1 - Nonrheumatic aortic (valve) insufficiency Category: Medical Code(s): I35.1 - Nonrheumatic aortic (valve) insufficiency Plan See orders. IV antibiotics. Home medications ordered.
[2024-12-05] MEDS: ATORVASTATIN 10MG TABLET 10 MG PO (20:10)
[2024-12-05] MEDS: APIXABAN 5MG TABLET 5 MG PO (20:10)
[2024-12-05] MEDS: CARVEDILOL 12.5MG TABLET 12.5 MG PO (20:10)
[2024-12-05 22:01] LABS: Troponin I 0.02 ng/ml (0.00-0.034)
[2024-12-06] VITALS (7 sets, daily range): BP systolic 110–147; BP diastolic 55–82; PULSE 78–91; RESP 12–14; TEMP 36.8–37.6; O2SAT 91–96; BMI 26.4
[2024-12-06] MEDS: PIPERACILLIN/TAZO 4.5 GM in 0.9 % SODIUM CHLORIDE 100 ML IV (03:49)
[2024-12-06 05:12] LABS: Acinetobacter calcoaceticus-ba Not Detected; Bacteroides fragilis Not Detected; CTX-M Not Detected; Candida auris Not Detected; Candida glabrata Not Detected; Enterobacterales Detected; Enterococcus faecalis Not Detected; Enterococcus faecium Not Detected; IMP Not Detected; KPC Not Detected; Klebsiella aerogenes Not Detected; Klebsiella pneumoniae grp Not Detected; NDM Not Detected; OXA-48-like Not Detected; Proteus spp. Not Detected; Salmonella spp. Not Detected; Serratia marcescens Not Detected; Staphylococcus epidermidis Not Detected; Staphylococcus lugdunensis Not Detected; Staphylococcus spp. Not Detected; Stenotrophomonas maltophilia Not Detected; Streptococcus agalactiae(GrpB) Not Detected; Streptococcus pyogenes Group A Not Detected; Streptococcus spp. Not Detected; VIM Not Detected; mcr-1 Not Detected
[2024-12-06 05:13] LABS: Acinetobacter calcoaceticus-ba Not Detected; Bacteroides fragilis Not Detected; CTX-M Not Detected; Candida auris Not Detected; Candida glabrata Not Detected; Enterobacterales Detected; Enterococcus faecalis Not Detected; Enterococcus faecium Not Detected; IMP Not Detected; KPC Not Detected; Klebsiella aerogenes Not Detected; Klebsiella pneumoniae grp Not Detected; NDM Not Detected; OXA-48-like Not Detected; Proteus spp. Not Detected; Salmonella spp. Not Detected; Serratia marcescens Not Detected; Staphylococcus epidermidis Not Detected; Staphylococcus lugdunensis Not Detected; Staphylococcus spp. Not Detected; Stenotrophomonas maltophilia Not Detected; Streptococcus agalactiae(GrpB) Not Detected; Streptococcus pyogenes Group A Not Detected; Streptococcus spp. Not Detected; VIM Not Detected; mcr-1 Not Detected
--- NOTE | 2024-12-06 05:45 | PC.NURSE ---
positive blood cultures reported by MD gisell transportation engineering technician notified.
--- NOTE | 2024-12-06 07:53 | HMH.PHAINT1 ---
Pharmacy Intervention Comments: HOME MEDICATION LIST VERIFIED USING LIST FROM OUTPATIENT PHARMACY
--- NOTE | 2024-12-06 08:43 | EXP.HP ---
History of Present Illness *Admission Date: 12/05/24 *Reason for visit:: dehydration, AMS, weakness *History of present illness: Ms. Szymanski is a 79-year-old white female who presented to the office of [facility] yesterday with AMS and not feeling well. She had been vomiting and having diffuse abdominal pain. She just had a colostomy reversal in Oct. Her WBC was elevated and she had had chills. She was sent to the ER and found to be septic and was admitted. [facility] Disclaimer: The information contained in this section may have been updated after the patient was seen, as this information can be updated by other users. 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 Hypertension Diastolic dysfunction HLD (hyperlipidemia) Abnormal echocardiogram Atelectasis of both lungs Pleural effusion, bilateral Dyspnea on exertion Chronic cough Shortness of Breath Hypertension High cholesterol Afib Surgical History (Updated 12/06/24 @ 08:45 by MARVA Garcia) History of colostomy reversal History of colectomy History of appendectomy Family History No significant family history Social History Smoking Status: Never smoker alcohol intake: never counseling provided: none (Patient does not smoke or use alcohol ) substance use type: denies use current occupational status: retired Travel in the last 8 weeks?: None household members: family housing: house caffeine: Yes do you feel safe at home: Yes victim of physical abuse: No victim of emotional abuse: No victim of sexual abuse: No Have you lived/traveled outside [place] in past 30 days?: No Contact w/someone who lives/traveled outside US past 30 days?: No Exposure to someone with infectious disease in past 14 days?: No Do you have a fever (greater than 100.4 F or 38 C)?: No Have you tested positive for COVID-19?: No Exposed to someone with COVID-19 in past 14 days?: No Do you have a sore throat?: No Do you have a cough?: No Do you have any weakness?: No Do you have any diarrhea?: No Are you experiencing any unusual bleeding?: No Do you have any muscle aches/pain?: No Do you have any abdominal pain?: No Are you experiencing loss of taste or smell?: No Other 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 Have you received the Flu Vaccine for this season: No Have you received the Pneumonia Vaccine: Yes Review of Systems Constitutional Constitutional: Reports fatigue, Reports fever(s), Reports poor appetite, Reports lethargy, Reports malaise and Reports weakness Eyes Eyes: Denies blurry vision and Denies diplopia ENT Ears, Nose, Mouth, and Throat: Reports dry mouth, Reports nasal congestion, Denies sore throat and Reports vertigo *Cardiovascular Cardiovascular: Denies chest pain and Denies dyspnea *Respiratory Respiratory: Reports cough and Denies dyspnea *Gastrointestinal Gastrointestinal: Reports abdominal pain, Denies loose stools, Reports nausea and Reports vomiting *Genitourinary Genitourinary: Denies difficulty voiding and Reports dysuria *Musculoskeletal Musculoskeletal: Reports myalgias *Neurologic Neurologic: Reports vertigo and Reports weakness Endocrine Endocrine: Reports fatigue Meds Home Medications and Allergies Home Medications ?Medication ?Instructions ?Recorded ?Confirmed ?Type aspirin 81 mg tablet,delayed 81 mg PO MOWEFR 12/31/19 12/05/24 History release (Adult Aspirin Regimen) apixaban 5 mg tablet (Eliquis) 5 mg PO BID #30 tabs 03/28/24 12/05/24 Rx atorvastatin 10 mg tablet 10 mg PO DAILY 05/22/24 12/05/24 History carvedilol 12.5 mg tablet 12.5 mg PO BID 06/19/24 12/05/24 History New Prescriptions to Start Prescriptions: Allergies Allergy/AdvReac Type Severity Reaction Status Date / Time No Known Allergies Allergy Verified 10/14/24 09:02 Exam Data for Last 24 hours Vital signs and Labs for Last 24 Hours: Temp Pulse Resp BP Pulse Ox O2 Del Method 98.8 F 89 14 147/78 H 91 L Room Air 12/06/24 08:00 12/06/24 08:00 12/06/24 08:00 12/06/24 08:00 12/06/24 08:00 12/06/24 08:00 Laboratory Results - last 24 hr 12/05/24 14:45: Urine Color Yellow, Urine Appearance Clear, Urine pH 6.0, Ur Specific [place] 1.015, Urine Protein 2+ A, Urine Glucose (UA) Negative, Urine Ketones Negative, Urine Blood 3+ A, Urine Nitrate Negative, Urine Bilirubin Negative, Urine Urobilinogen 0.2, Ur Leukocyte Esterase 3+ A, Urine RBC Tntc, Urine WBC 10-20, Ur Squamous Epith Cells None, Ur Renal Epithelial Cell 3-5, Urine Bacteria 4+ 12/05/24 14:58: SARS-CoV-2 (PCR) Not detected, Influenza A Untype (PCR) Not detected, Influenza Type B (PCR) Not detected 12/05/24 15:02: WBC 19.1 H, RBC 2.89 L, Hgb 9.5 L, Hct 26.9 L, MCV 93.1, MCH 32.9 H, MCHC 35.3, RDW 13.4, Plt Count 168, MPV 8.9, Neut % (Auto) 88.6 H, Lymph % (Auto) 4.9 L, [place] % (Auto) 4.4, Eos % (Auto) 0.0 L, Baso % (Auto) 0.3, Neut # (Auto) 16.9 H, Lymph # (Auto) 0.9, [place] # (Auto) 0.8, Eos # (Auto) 0.0, Baso # (Auto) 0.1, ESR > 140 H, PT 13.0 H, INR 1.19 H, Sodium 123 L, Potassium 3.8, Chloride 86 L, Carbon Dioxide 25, Anion Gap 15.8 H, BUN 46 H, Creatinine 2.80 H, Estimated Creat Clear 14, Estimated GFR 16 L*, Est GFR ( Amer) 20 L, Glucose 166 H, Lactate 3.1 H, Calcium 9.2, Magnesium 2.2, Total Bilirubin 1.8 H, AST 52 H, ALT 39, Alkaline Phosphatase 95, Total Creatine Kinase 559 H*, Troponin I 0.04 H, C-Reactive Protein 291.4 H, Total Protein 6.1 L, Albumin 3.3 L, Globulin 2.8, Albumin/Globulin Ratio 1.2, Lipase 25, A. baumannii (PCR) Not detected 12/05/24 15:02: A. baumannii (PCR) Not detected, Bacteroides fragilis Not detected 12/05/24 15:02: Bacteroides fragilis Not detected, Nikki albicans (PCR) Not detected 12/05/24 15:02: Nikki albicans (PCR) Not detected, Nikki auris (PCR) Not detected 12/05/24 15:02: Nikki auris (PCR) Not detected, C. glabrata (PCR) Not detected 12/05/24 15:02: C. glabrata (PCR) Not detected, C. krusei (PCR) Not detected 12/05/24 15:02: C. krusei (PCR) Not detected, C. parapsilosis (PCR) Not detected 12/05/24 15:02: C. parapsilosis (PCR) Not detected, C. tropicalis (PCR) Not detected 12/05/24 15:02: C. tropicalis (PCR) Not detected, Cryptococcus neoformans PCR Not detected 12/05/24 15:02: Cryptococcus neoformans PCR Not detected, Enterobacterales (PCR) Detected A 12/05/24 15:02: Enterobacterales (PCR) Detected A, Enterococc faecalis PCR Not detected 12/05/24 15:02: Enterococc faecalis PCR Not detected, Enterococc faecium PCR Not detected 12/05/24 15:02: Enterococc faecium PCR Not detected, E. coli (PCR) Detected A 12/05/24 15:02: E. coli (PCR) Detected A, H. influenzae DNA Not detected 12/05/24 15:02: H. influenzae DNA Not detected, Klebsiella aerogenes (PCR) Not detected 12/05/24 15:02: Klebsiella aerogenes (PCR) Not detected, Klebsiella oxytoca PCR Not detected 12/05/24 15:02: Klebsiella oxytoca PCR Not detected, K. pneumoniae group (PCR) Not detected 12/05/24 15:02: K. pneumoniae group (PCR) Not detected, List. monocytogenes PCR Not detected 12/05/24 15:02: List. monocytogenes PCR Not detected, N. meningitidis (PCR) Not detected 12/05/24 15:02: N. meningitidis (PCR) Not detected, Proteus species (PCR) Not detected 12/05/24 15:02: Proteus species (PCR) Not detected, Salmonella spp. (PCR) Not detected 12/05/24 15:02: Salmonella spp. (PCR) Not detected, Serratia marcescens PCR Not detected 12/05/24 15:02: Serratia marcescens PCR Not detected, Staphylococcus sp PCR Not detected 12/05/24 15:02: Staphylococcus sp PCR Not detected, Staph aureus (PCR) Not detected 12/05/24 15:02: Staph aureus (PCR) Not detected, mecA/C & MREJ Resist Gene Not applicable 12/05/24 15:02: mecA/C & MREJ Resist Gene Not applicable, mecA/C-Methicil Resis Gene Not applicable 12/05/24 15:02: mecA/C-Methicil Resis Gene Not applicable, Staph epidermidis (PCR) Not detected 12/05/24 15:02: Staph epidermidis (PCR) Not detected, Staph lugdunensis (TEM-PCR) Not detected 12/05/24 15:02: Staph lugdunensis (TEM-PCR) Not detected, S. maltophilia (PCR) Not detected 12/05/24 15:02: S. maltophilia (PCR) Not detected, Streptococcus sp PCR Not detected 12/05/24 15:02: Streptococcus sp PCR Not detected, S.agalactiae Grp B DC Not detected 12/05/24 15:02: S.agalactiae Grp B DC Not detected, Strep pneumoniae (PCR) Not detected 12/05/24 15:02: Strep pneumoniae (PCR) Not detected, S. pyogenes GrpA DC Not detected 12/05/24 15:02: S. pyogenes GrpA DC Not detected, P. aeruginosa (PCR) Not detected 12/05/24 15:02: P. aeruginosa (PCR) Not detected, Adolfo/B-Vanco Res Genes Not applicable 12/05/24 15:02: Adolfo/B-Vanco Res Genes Not applicable, blaIMP Car res Gene PCR Not detected 12/05/24 15:02: blaIMP Car res Gene PCR Not detected, KPC-Carbap Res Gene PCR Not detected 12/05/24 15:02: KPC-Carbap Res Gene PCR Not detected, blaNDM Car Res Gene PCR Not detected 12/05/24 15:02: blaNDM Car Res Gene PCR Not detected, OXA-48 Carbapenem Resis Gene (PCR) Not detected 12/05/24 15:02: OXA-48 Carbapenem Resis Gene (PCR) Not detected, blaVIM Car Res Gene PCR Not detected 12/05/24 15:02: blaVIM Car Res Gene PCR Not detected, CTX-M Gene Resistance (PCR) Not detected 12/05/24 15:02: CTX-M Gene Resistance (PCR) Not detected, MCR-1 Resistance Gene Not detected 12/05/24 15:02: MCR-1 Resistance Gene Not detected 12/05/24 17:45: Troponin I 0.03 12/05/24 19:26: Lactate 1.9 12/05/24 21:30: Troponin I 0.02 I & O for Last 24 hours: Intake & Output 12/03/24 12/04/24 12/05/24 12/06/24 11:59 11:59 11:59 11:59 Intake Total 2150 / 2150 Output Total 500 / 500 Balance 1650 / 1650 Weight 125 lb 12.8 oz Microbiology Reports for the Last 24 Hours: Microbiology 12/05/24 14:47 Blood Blood Culture - Preliminary NO GROWTH AFTER 24 HOURS 12/05/24 14:45 Urine,Clean Catch Urine Culture - Preliminary Gram Negative Rods 12/05/24 14:47 Blood Blood Culture - Preliminary Constitutional Comments: Does not appear to feel well *Routine HEENT Exam Head: Present normocephalic and atraumatic Eye: Present EOMI and PERRL ENT: Present mucous membranes dry *Routine Neck Exam Neck: Present supple and full ROM *Routine Respiratory Exam Respiratory: Present CTA bilaterally *Routine Cardiovascular Exam Cardiovascular: Present RRR *Routine Abdominal Exam Abdominal: Present soft, normoactive bowel sounds, tenderness (diffuse), hernia (extensive ventral hernia), surgical scars and ostomy (site with dressing. Clean and dry.) *Routine Rectal Exam Rectal:: deferred *Routine Genitalia Exam Genitalia:: deferred *Routine Extremities Exam Extremities: Absent cyanosis, clubbing or edema *Routine Skin Exam Skin: Present intact; Absent erythema *Routine Neurological Exam Neurological: Present alert and oriented X3 H&P: Result Impressions Abdominal/Pelvic CT Long segment colonic wall thickening could represent colitis but is nonspecific in the setting of the ascites. Diastasis of rectus muscles and small bowel loops protrude through the defect. Possible cystitis. Hypervascular liver lesion in the left lobe is indeterminate and may have increased in size since 2022. Consider MRI liver mass protocol. Small amount of ascites. Assessment and Plan *Assessment and plan (1) Sepsis: Status: Acute Category: Medical Code(s): A41.9 - Sepsis, unspecified organism (2) UTI (urinary tract infection): Status: Acute Category: Medical Code(s): N39.0 - Urinary tract infection, site not specified (3) Colitis: Status: Acute Category: Medical Code(s): K52.9 - Noninfective gastroenteritis and colitis, unspecified (4) Altered mental status: Status: Acute Qualifiers: Altered mental status type: unspecified Qualified Code(s): R41.82 - Altered mental status, unspecified Category: Medical Code(s): R41.82 - Altered mental status, unspecified (5) Acute renal failure: Status: Resolved Qualifiers: Acute renal failure type: unspecified Qualified Code(s): N17.9 - Acute kidney failure, unspecified Category: Medical Code(s): N17.9 - Acute kidney failure, unspecified (6) Coronary artery disease: Status: Acute Qualifiers: Associated angina: without angina Coronary Disease-Associated Artery/Lesion type: [place] artery [place] vs. transplanted heart: [place] heart Qualified Code(s): I25.10 - Atherosclerotic heart disease of [place] coronary artery without angina pectoris Category: Medical Code(s): I25.10 - Atherosclerotic heart disease of [place] coronary artery without angina pectoris (7) PAF (paroxysmal atrial fibrillation): Status: Chronic Category: Medical Code(s): I48.0 - Paroxysmal atrial fibrillation (8) Anemia: Status: Acute Qualifiers: Anemia type: other cause Other causes of anemia: acute posthemorrhagic Qualified Code(s): D62 - Acute posthemorrhagic anemia Category: Medical Code(s): D64.9 - Anemia, unspecified (9) OAB (overactive bladder): Status: Acute Category: Medical Code(s): N32.81 - Overactive bladder (10) Chronic cough: Problem Comment: Currently has improved with PPI. She does not really complain much of a cough today Status: Chronic Category: Medical Code(s): R05.3 - Chronic cough (11) Hypertension: Status: Chronic Qualifiers: Hypertension type: essential hypertension Qualified Code(s): I10 - Essential (primary) hypertension Category: Medical Code(s): I10 - Essential (primary) hypertension (12) Diastolic dysfunction: Status: Chronic Category: Medical Code(s): I51.89 - Other ill-defined heart diseases (13) Aortic insufficiency: Status: Chronic Qualifiers: Cardiac valve disease etiology: nonrheumatic Qualified Code(s): I35.1 - Nonrheumatic aortic (valve) insufficiency Category: Medical Code(s): I35.1 - Nonrheumatic aortic (valve) insufficiency (14) HLD (hyperlipidemia): Status: Chronic Qualifiers: Hyperlipidemia type: mixed hyperlipidemia Qualified Code(s): E78.2 - Mixed hyperlipidemia Category: Medical Code(s): E78.5 - Hyperlipidemia, unspecified Plan Patient has been started on IVF's and IV abx. Will discuss further care with Dr. Harrison. Awaiting culture results.
[2024-12-06] MEDS: PIPERACILLIN/TAZO 2.25 GM in 0.9 % SODIUM CHLORIDE 50 ML IV ×3 (09:11→21:02)
[2024-12-06] MEDS: APIXABAN 5MG TABLET 2.5 MG PO ×2 (09:11→21:01)
[2024-12-06] MEDS: CARVEDILOL 12.5MG TABLET 12.5 MG PO ×2 (09:11→21:01)
--- NOTE | 2024-12-06 09:34 | HMH.PTEV ---
Physical Therapy Evaluation Rehab PT IP Evaluation Start: 12/06/24 09:24 Freq: ONCE Status: Active Protocol: Document 12/06/24 09:29 PATEL (Rec: 12/06/24 09:34 [facility] [id number]) Subjective/History History History Per H&P: Ms. Szymanski is a 79-year-old white female admitted with altered mental status. She was seen initially today in [facility] by URMILA Benoit. She was directed to the emergency room for further evaluation. White blood cell count was found to be elevated. She has had some confusion. She had reversal of her colostomy November 07. In addition to her confusion today she has had some chilling. Subjective Subjective Pt reports [place] Pt's son and DIL live on the same property. Pt reports she is normally IND with all mobility without AD use. Pt denies falls in the past 6 months. [facility] How much help from another person do you currently need... Turning from your None back to your side while in a flat bed without using bedrails? Moving from lying on None back to sitting on the side of a flat bed without using bedrails? Moving to and from a None bed to a chair ( including a wheelchair)? Standing up from a None chair using your arms? (e.g., wheelchair, bedside chair) Walking in hospital None room? Climbing 3-5 steps A little with a railing? Mobility Score 23 Mobility Level [place] Mobility 7 Walk 25 feet or more Mobility Calculator Rehab PT IP Eval Objective Appearance Patient Behavior Appropriate,Cooperative Patient Orientation Person,Place Difficulty following none instructions Speech Pattern Clear Ambulation Patient Able to Yes Ambulate Ambulation Observation IP General Gait Wide Based Gait Pattern Observation Ambulation Distance 35 (feet) Ambulation Assistive None Device Ambulation Ability Supervision/Stand by Balance Ability to Arise Able, uses arms to help Sitting Balance Steady, safe Standing Balance Steady, wide stance Dynamic Sitting Good Balance Ability Dynamic Standing Good Balance Ability Transfers Bed Transfer Ability Supervision/Stand by Sit to Stand Bed Supervision/Stand by Transfer Ability Rehab PT IP prob,goals,plan Problems Date of Evaluation: 12/06/24 Rehab Potential Rehab Potential Innapropriate for Skilled Therapy Discharge Plan PT Discharge Plan Pt would not benefit from skilled acute care PT at this time as pt's mobility appears to be at her baseline. PT recommending HH PT services to address strength and endurance. Eval Complexity Eval Charge Codes 86605 - Moderate Complexity PHYSICIAN CERTIFICATION: I certify the specified therapy services for Alesha Szymanski are required, authorized, and reviewed every 30 days.
--- NOTE | 2024-12-06 09:39 | HMH.OTEV ---
OT Evaluation Rehab OT IP Evaluation Start: 12/06/24 09:24 Freq: ONCE Status: Active Protocol: Document 12/06/24 09:29 [facility] (Rec: 12/06/24 09:39 [facility] [id number]) Rehab OT IP Assessment Subjective History Pt oriented x 2 on arrival. Pt agreeable to engage in therapy evaluation. Pt admitted on 12/05/24 due to colitis and sepsis. History and physical: Ms. Szymanski is a 79-year-old white female admitted with altered mental status. She was seen initially today in [facility] by URMILA Benoit. She was directed to the emergency room for further evaluation. White blood cell count was found to be elevated. She has had some confusion. She had reversal of her colostomy November 07. In addition to her confusion today she has had some chilling. Subjective Prior to being in the hospital, pt lived in a camper on her daughter's land. Pt reports normally she is independent with all ADLs and IADLs. Pt does not use a rolling walker during functional transfers. Pt no longer drives. Objective Patient Orientation Person,Birthday Right Upper WFL Extremity Gross ROM Left Upper Extremity WFL Gross ROM Bed Mobility bed mobility-scooting,bed mobility - supine/sit Assist Level Contact Guard/Hand Hold Transfer Training Sit/Stand Transfer Assist Level Contact Guard/Hand Hold Lower Body Dressing Minimal Assistance Ability Performing Toilet Minimal Assistance Hygiene Ability Overall Commode/ Contact Guard Toilet Transfer Ability Commode/Toilet Sit to/from Ambulatory Transfer Technique Rehab OT IP prob,goals,plan Problems Date of Evaluation: 12/06/24 OT IP Problems Bed Mobility,Transfers,Balance,Self care,Safety Rehab Potential Rehab Potential Good Equipment Needs Assistive Devices Rolling / Wheeled Walker Plan OT intervention Plan Bed Mobility,Transfers,Balance,Self care,Safety, Therapeutic Exercise OT Plan Frequency Daily Duration LOS Discharge Goals Bed Mobility Ability Standby Assistance Sit to Stand Chair Supervision/Stand by Transfer Ability Chair Transfer Supervision/Stand by Ability Chair Transfer Sit to/from Ambulatory Technique Chair Transfer Rolling Walker Assistive Devices Lower Body Dressing Contact Guard Ability Upper Body Dressing Standby Assistance Ability Performing Toilet Standby Assistance Hygiene Ability Overall Commode/ Standby Assistance Toilet Transfer Ability Commode/Toilet Sit to/from Ambulatory Transfer Technique Discharge Plan OT Discharge Plan Pt will continue to be seen for OT services while at [facility]. Pt can return home with family once she is medially stable per physician. Therapist does recommend OT evaluation upon returning home. Continued skilled therapy services are important in order to improve strength, safety, endurance, ADL independence, and functional transfers in order to reach PLOF. Eval Complexity Eval Charge Codes 02871 - Moderate Complexity PHYSICIAN CERTIFICATION: I certify the specified therapy services for Alesha Szymanski are required, authorized, and reviewed every 30 days.
--- NOTE | 2024-12-06 09:41 | SW/DCPLANNER ---
Spoke with patient regarding home health services once she is medically stable and ready for discharge. Patient stated that she is not interested in it at this time and that she would think about it and if she changes her mind she will let her daughter Bisi Bhatt know. Lianna Salguero
--- OUTSIDE RECORDS SUMMARY | 2024-12-06 12:55 | XMS_ITS | Patient Health Record ---
Author Organization [facility] Address [address] [facility] [address] [place] [id number] Care Team Providers Care Delinquency Prevention Social Worker Name Role Phone Chas Barrera Primary Care Provider [phone] Marie Harrison Unavailable [phone] Bettie Willson Unavailable [phone] Charlene Benoit Unavailable [phone] Allergies No Known Allergies Results Component Value [...] - 38 platlet 368 100 - 400 Influenza Screen (in house) (Not yet reviewed [...] Interpretation: Performing Lab: Notes/Report: Test performed by [facility] [address] [place] [address] , [address], [place] [address] Mitchel Dior MD, Natural Gas Inspector CLIA: [id number] Amylase 42 28-100 U/L P-Comprehensive Metabolic Pa cruz (CMP) (Not yet reviewed by provider) Interpretation: Performing Lab: Notes/Report: Test performed by [facility] [address] , [address], [place] [address] Mitchel Dior MD, Natural Gas Inspector CLIA: [id number] Sodium 127 135-145 mmol/L Potassium 3.6 3.5-5.3 [...] Interpretation: Performing Lab: Notes/Report: Test performed by [facility] [address] [place] [address] , [address], [place] [address] Mitchel Dior MD, Natural Gas Inspector CLIA: [id number] Lipase 14.0 13.0-60.0 U/L Covid test (in house) (Not y et reviewed by provider) Interpretation: Performing Lab: Notes/Report: Result: neg H-Iron Reviewed date:06/20/2024 08:55:35 AM Interpretation:106 Performing [...] AGRATIO 1.4 1.1-1.8 ALP 100 38-126 U/L P-Iron Reviewed date:11/01/2024 05:11:29 PM Interpretation:Normal Performing Lab: Notes/Report: Test performed by [facility] [address] [place] [address] , [address], [place] [address] Mitchel Dior MD, Natural Gas Inspector CLIA: [id number] Iron 44 37-145 ug/dL P-Ferritin Reviewed date:11/01/2024 05:11:28 PM Interpretation:Normal Performing Lab: Notes/Report: Test performed by [facility] [address] [place], [place] [address] [place] , [address], [place] [address] Mitchel Dior MD, Natural Gas Inspector CLIA: [id number] Ferritin 75.4 13.0-301.0 ng/mL P-Comprehensive Metabolic Pa cruz (CMP) Reviewed date:11/01/2024 05:11:28 PM Interpretation:bun 27, Cr 1.25, gfr 44 Performing Lab: Notes/Report: Test performed by [facility] [address] [place] [address] , [address], [place] [address] Mitchel Dior MD, Natural Gas Inspector CLIA: [id number] Sodium 141 135-145 mmol/L Potassium 4.3 3.5-5.3 [...] 0.6 <0.2-1.2 mg/dL A/G Ratio 1.7 1.1-2.5 P-Culture, Urine Reviewed date:06/27/2024 04:30:25 PM Interpretation:No growth Performing Lab: Notes/Report: Test performed by [facility] [address] [place] [address] , [place] [id number] Mitchel Dior MD, Natural Gas Inspector CLIA: [id number] Specimen Source Urine - Void Culture, Urine See Below Final Report : No growth Urinalysis - Inhouse Reviewed date:06/21/2024 02:34:49 PM Interpretation: Performing Lab: Notes/Report: Color/Clarity yellow/clear Leuk 1+ Nitrite neg Urobili 3.2 Protein neg pH 7.5 Blood trace intact Sp. Gr. 1.015 Ketone neg Bili neg Gluc neg Urinalysis - Inhouse Reviewed date:12/14/2023 10:05:27 AM [...] 11:22:31 AM Interpretation:Negative Performing Lab: Notes/Report: Negative CBC Venipuncture (in house) Reviewed date:04/29/2024 07:41:47 [...] - 38 platlet 541 100 - 400 P-Comprehensive Metabolic Pa cruz (CMP) Reviewed date:05/01/2024 03:43:07 PM Interpretation: Performing Lab: Notes/Report: Test performed by [facility] [address] [place] [address] , [address], [place] [address] Mitchel Dior MD, Natural Gas Inspector CLIA: [id number] Sodium 135 135-145 mmol/L Potassium 4.2 3.5-5.3 [...] 0.7 <0.2-1.2 mg/dL A/G Ratio 1.2 1.1-2.5 P-Ferritin Reviewed date:05/01/2024 03:43:07 PM Interpretation: Performing Lab: Notes/Report: Test performed by [facility] [address] [place] [address] , [address], [place] [address] Mitchel Dior MD, Natural Gas Inspector CLIA: [id number] Ferritin 72.1 13.0-301.0 ng/mL P-Iron Reviewed date:05/01/2024 03:43:07 PM Interpretation: Performing Lab: Notes/Report: Test performed by [facility] [address] [place] [address] , [address], [place] [address] Mitchel Dior MD, Natural Gas Inspector CLIA: [id number] Iron 10 37-145 ug/dL Urinalysis - Inhouse Reviewed date:06/05/2024 11:02:43 PM Interpretation: Performing Lab: Notes/Report: Color/Clarity yellow/clear Leuk 1+ Nitrite Neg Urobili 3.2 Protein Trace pH 8.0 Blood 1+ Sp. Gr. 1.015 Ketone Neg Bili Neg Gluc Neg CBC Fingerstick (in house) Reviewed date:06/05/2024 11:02:30 [...] - 38 plat 325 100 - 400 P-Vitamin B12 Reviewed date:06/07/2024 04:41:02 PM Interpretation: Performing Lab: Notes/Report: Test performed by [facility] [address] [place] [address] , [address], [place] [address] Mitchel Dior MD, Natural Gas Inspector CLIA: [id number] Vitamin B12 6016 889-1255 pg/mL P-Comprehensive Metabolic Pa cruz (CMP) Reviewed date:06/07/2024 04:41:03 PM Interpretation: Performing Lab: Notes/Report: Test performed by [facility], [address], [place] [address] Mitchel Dior MD, Natural Gas Inspector CLIA: [id number] Sodium 130 135-145 mmol/L Potassium 5.0 3.5-5.3 [...] 0.5 <0.2-1.2 mg/dL A/G Ratio 1.4 1.1-2.5 P-Culture, Urine Reviewed date:06/07/2024 04:41:02 PM Interpretation: Performing Lab: Notes/Report: Test performed by [facility] [address] , [place] [address] Mitchel Dior MD, Natural Gas Inspector CLIA: [id number] Specimen Source Urine - Void Culture, Urine See Below Final Report : No Significant Growth P-Ferritin Reviewed date:06/07/2024 04:41:02 PM Interpretation: Performing Lab: Notes/Report: Test performed by [facility] [address] , [address], [place] [address] Mitchel Dior MD, Natural Gas Inspector CLIA: [id number] Ferritin 438.0 13.0-301.0 ng/mL P-Iron Reviewed date:06/07/2024 04:41:02 PM Interpretation: Performing Lab: Notes/Report: Test performed by [facility] [address] , [address], [place] [address] Mitchel Dior MD, Natural Gas Inspector CLIA: [id number] Iron 34 37-145 ug/dL P-Vitamin D 25-Hydroxy Reviewed date:06/07/2024 04:41:02 PM Interpretation: Performing Lab: Notes/Report: Test performed by [facility] [address] [place] [address] , [address], [place] [address] Mitchel Dior MD, Natural Gas Inspector CLIA: [id number] Vitamin D 25-Hydroxy 60.6 30.0-100.0 ng/mL Interpretation of Vitamin D 25 OH: < 20 ng/mL - Deficiency 20 - 29 ng/mL - Insufficiency 30 - 100 ng/mL - Sufficiency > 100 ng/mL - Super-therapeutic- toxicity may occur above this level. Clinical correlation required. CBC Fingerstick (in house) Reviewed date:07/31/2024 12:03:02 [...] - 38 plat 285 100 - 400 Influenza Screen (in house) [...] PM Interpretation: Performing Lab: Notes/Report: Result: neg H-ABG Reviewed date:03/17/2024 08:55:48 PM Interpretation: Performing Lab: Notes/Report: PHART 7.57 7.35-7.45 mmol/L CRITICAL RESULT Results called to:Shira CULVER by Edy Stark, RT at 2254 on 03/16/24 [id number] 24.0 35.0-45.0 mmhg PO2ART 68.4 80-100 mmhg [id number] 21.3 22.0-26.0 mmhg [id number] 22.1 23-27 mmhg BEART -0.7 -2.4-2.3 mmol/L [id number] 95 90-100 % O2 2 KD Y SOURCE Left Radial Rapid Strep- Inhouse Reviewed date:01/10/2024 01:10:01 PM [...] - 38 plat 426 100 - 400 Urinalysis - Inhouse Reviewed [...] Interpretation: Performing Lab: Notes/Report: Test performed by [facility] [address] [place] [address] , [address], [place] [address] Mitchel Dior MD, Natural Gas Inspector CLIA: [id number] Vitamin B12 742 854-2779 pg/mL P-Culture, Urine Reviewed date:03/04/2024 04:50:11 PM Interpretation: Performing Lab: Notes/Report: Test performed by [facility] , [facility], [place] [address] Mitchel Dior MD, Natural Gas Inspector CLIA: [id number] Specimen Source Urine - Void Culture, Urine See Below Final Report : No growth P-Reticulocyte Count Reviewed date:03/01/2024 08:46:38 AM Interpretation: Performing Lab: Notes/Report: [facility] , [facility], [place] [address] Mitchel Dior MD, Natural Gas Inspector CLIA: [id number] Reticulocyte Count 1.8 0.5-2.1 % P-Ferritin Reviewed date:03/01/2024 08:46:38 AM Interpretation: Performing Lab: Notes/Report: Test performed by [facility] , [facility], [place] [address] Mitchel Dior MD, Natural Gas Inspector CLIA: [id number] Ferritin 9.2 13.0-301.0 ng/mL P-Iron Reviewed date:03/01/2024 08:46:38 AM Interpretation: Performing Lab: Notes/Report: [facility] , [facility], [place] [address] Mitchel Dior MD, Natural Gas Inspector CLIA: [id number] Iron 16 37-145 ug/dL P-Vitamin D 25-Hydroxy Reviewed date:03/01/2024 08:46:38 AM Interpretation: Performing Lab: Notes/Report: Test performed by [facility] , [facility], [place] [address] Mitchel Dior MD, Natural Gas Inspector CLIA: [id number] Vitamin D 25-Hydroxy 71.2 30.0-100.0 ng/mL Interpretation of Vitamin D 25 OH: < 20 ng/mL - Deficiency 20 - 29 ng/mL - Insufficiency 30 - 100 ng/mL - Sufficiency > 100 ng/mL - Super-therapeutic- toxicity may occur above this level. Clinical correlation required. Reason For Referral Diagnosis 1 Memory loss (R41.3) Referral Organization [facility] Referring Provider First Name Charlene Referring Provider Last Name Danielcecilia Referring Provider Speciality Physician Retail Center Receptionist Referred Provider Neurology, . Referred Provider Specialty Neurology General Notes Charlene Benoit 2024 11:59:38 AM > Needs an appt with Tatiana Guerra Brynn 06/19/2024 12:01:06 PM > faxed to [facility] Neurology, Jeanne Simpson 06/28/2024 11:09:20 AM > spoke to Jillian; [...] W/U Status Risk Notes Problem Essential hypertension (95712422) Essential (primary) hypertension (I10) Active confirmed Problem Sciatica (46024109) Sciatica (M54.30) Active confirmed Problem History of pulmonary embolus (733527479) History of pulmonary embolism (Z86.711) Active confirmed Problem Vitamin D deficiency (56431958) Vitamin D deficiency (E55.9) Active confirmed Problem Osteopenia (508034614) Osteopenia (M85.80) Active confirmed Problem Sciatic nerve lesion (051820154) Piriformis syndrome of left side (G57.02) Active confirmed Problem Osteoarthritis (157849867) Osteoarthritis (M19.90) Active confirmed Problem Iron deficiency anemia (49980147) Iron deficiency anemia (D50.9) Active confirmed Problem Paroxysmal atrial fibrillation (438010686) Paroxysmal atrial fibrillation (I48.0) Active confirmed Problem Acute exacerbation of chronic obstructive airways disease (942797362) COPD exacerbation (J44.1) Active confirmed Problem Memory loss (72804982) Memory loss (R41.3) Active confirmed Problem Hyperlipidemia (95614743) Other hyperlipidemia (E78.4) Active confirmed Problem Metabolic encephalopathy (24878883) Metabolic encephalopathy (G93.41) Active confirmed Problem Conductive hearing loss, bilateral (183241624) Conductive hearing loss, bilateral (H90.0) Active confirmed Problem Functional dyspepsia (4620598) Functional dyspepsia (K30) Active confirmed Problem Age-related osteoporosis (928670091) Age-related osteoporosis without current pathological fracture (M81.0) Active confirmed Problem Urge incontinence of urine (55425982) Urge incontinence (N39.41) Active confirmed Problem Constipation (95625037) Constipation, unspecified constipation type (K59.00) Active confirmed Problem COPD - Chronic obstructive pulmonary disease (44450211) Chronic obstructive pulmonary disease, unspecified COPD type (J44.9) Active confirmed Problem Anemia (276479566) Anemia, unspecified type (D64.9) Active confirmed Problem Colostomy present (454516253) Status post colostomy (Z93.3) Active confirmed Problem Insomnia (585533515) Insomnia, unspecified type (G47.00) Active confirmed Problem Atrial fibrillation with rapid ventricular response (631609903150200) Atrial fibrillation with rapid ventricular response (I48.91) Active confirmed Problem Urinary incontinence (928777716) Urinary incontinence, unspecified type (R32) Active confirmed Problem Allergic rhinitis (60740912) Seasonal allergic rhinitis due to other allergic trigger (J30.89) Active confirmed Problem Aortic valve sclerosis (26223863) Aortic valve sclerosis (I35.8) Active confirmed Problem Prolapse of uterus (18498515) Prolapse of uterus (N81.4) Active confirmed Problem Localized, primary osteoarthritis of the ankle and/or foot (223751177) 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) Active confirmed Problem Colostomy and enterostomy malfunction (120937478) Colostomy complication (K94.00) Active confirmed Problem Sciatica (74887989) Sciatica, unspecified laterality (M54.30) Active confirmed Problem Hyperlipidemia (19153229) Other hyperlipidemia (E78.49) Active confirmed Problem Vaginal pessary in situ (4688480720614) Presence of pessary (Z96.0) Active confirmed Problem Anemia (747302258) Acute anemia (D64.9) Active confirmed Problem Gastric reflux (845749105) Gastric reflux (K21.9) Active confirmed Vital Signs Heart Rate 73 /min 12/05/2024 Blood pressure diastolic 58 mm Hg 12/05/2024 Height 58 in 12/05/2024 Blood pressure systolic 118 mm Hg 12/05/2024 Weight 118.4 lbs 12/05/2024 BMI 24.74 kg/m2 12/05/2024 Encounters Encounter Location Date Provider Diagnosis [facility] [address] [id number] 12/14/2023 Hcarlene Cy COVID-19 U07.1 ; Bronchitis J40 ; Dysuria R30.0 and Sore on scalp L98.9 [facility] [address] [place] [id number] 01/10/2024 Charlene Cy Acute URI J06.9 and Anemia, unspecified type D64.9 [facility] [address] [place] [id number] 02/29/2024 Charlene yC Acute anemia D64.9 ; Acute URI J06.9 ; Microscopic hematuria R31.29 ; Wheezing R06.2 ; Vitamin D deficiency E55.9 ; Vitamin B12 deficiency E53.8 and Osteopenia, unspecified location M85.80 [facility] [address] [place] [id number] 03/07/2024 Marie Harrison Age-related osteoporosis without current pathological fracture M81.0 [facility] [address] [place] [id number] 03/12/2024 R Jayant Navarretefleet COPD exacerbation J4 4.1 and Iron deficiency anemia D50.9 [facility] [address] [place] [address] [place] [id number] 04/26/2024 Charlene Benoit Perforation of intestine K63.1 ; Status post colostomy Z93.3 ; Pneumonia of both lower lobes due to infectious organism J18.9 ; Pleural effusion, bilateral J90 ; Essential (primary) hypertension I10 ; History of pulmonary embolism Z86.711 ; Paroxysmal atrial fibrillation I48.0 ; Other hyperlipidemia E78.4 and Chronic anemia D64.9 [facility] [address] [place] [id number] 06/05/2024 Charlenemagali Benoit Essential (primary) hypertension I10 ; Paroxysmal atrial fibrillation I48.0 ; Recurrent UTI N39.0 ; Iron deficiency anemia D50.9 ; Presence of pessary Z96.0 ; Chronic obstructive pulmonary disease, unspecified COPD type J44.9 ; Vitamin B12 deficiency E53.8 ; Vitamin D deficiency E55.9 and Weight loss R63.4 [facility] [address] [place] [id number] 06/19/2024 Charlene Cy Hyponatremia E87.1 ; Hyperkalemia E87.5 ; Urinary tract infection without hematuria, site unspecified N39.0 ; Metabolic encephalopathy G93.41 ; Acute renal failure, unspecified acute renal failure type N17.9 ; Memory loss R41.3 ; Iron deficiency E61.1 ; Generalized weakness R53.1 and BMI 21.0-21.9, adult Z68.21 [facility] [address] [place] [id number] 06/21/2024 Charlene Benoit Microscopic hematuri a R31.29 ; Insomnia, unspecified type G47.00 and BMI 22.0-22.9, adult Z68.22 [facility] [address] [place], [place] [id number] 07/31/2024 Charlenemagali Benoit Lower extremity corky a R60.0 ; Colostomy complication K94.00 and Acute cough R05.1 [facility] [address] [facility] [address] [place], [place] [id number] 10/23/2024 Charlenemagali Benoit Preop general physic al exam Z01.818 and BMI 23.0-23.9, adult Z68.23 [facility] [address] [facility] [address] [place], [place] [id number] 10/31/2024 Charlenemagali Benoit Iron deficiency anem ia D50.9 ; Essential (primary) hypertension I10 and Pre-op evaluation Z01.818 [facility] [address] [place], [place] [id number] 11/27/2024 Charlene Benoit Acute URI J06.9 and BMI 23.0-23.9, adult Z68.23 [facility] [address] [place], [place] [id number] 12/05/2024 Charlenemagali Benoit Dysuria R30.0 ; Acut e URI J06.9 ; Other fatigue R53.83 and Acute abdominal pain R10.9 [facility] [address] [facility] [address] [place], [place] [id number] 11/04/2024 R Jayant Bruce [facility] [address] [place], [place] [id number] 11/27/2024 Charlene Daneildy [facility] [address] [place], [place] [id number] 03/01/2024 Charlene Danieldy [facility] [address] [facility] [address] [place] [id number] 04/17/2024 R Jayant Bruce [facility] [address] [facility] [address] [place] [id number] 05/01/2024 Charlene Crowdy [facility] [address] [place], [place] [id number] 05/27/2024 R Jayant Bruce [facility] [address] [place], [place] [id number] 06/07/2024 Charlene Crowdy [facility] [address] [place], [place] [id number] 06/20/2024 Charlene Crowdy [facility] [address] [place] [id number] 07/10/2024 R Jayant Bruce [facility] [address] [place], [place] [id number] 07/31/2024 R Jayant Bruce [facility] [address] [place] [id number] 09/05/2024 R Jayant Bruce [facility] [address] [place] [id number] 09/30/2024 Bettie Dacostaond [facility] [address] [place] [id number] 10/21/2024 R Jayant Bruce [facility] [address] [place] [id number] 10/25/2024 Charlene Crowdy [facility] [address] [place] [id number] 10/30/2024 Charlene Crowdy [facility] [address] [place], [place] [id number] 12/06/2024 R Jayant Bruce Assessments Encounter Date Diagnosis (ICD Code) Assessment Notes Treatment Notes Treatment Clinical Notes Section Notes 12/14/2023 Bronchitis (ICD-10 - J40) Gave a sample of trelegy to use for the next few weeks. Will refill albuterol as well. CBC is normal. 12/14/2023 COVID-19 (ICD-10 - U07.1) Has cough syrup at home. 01/10/2024 Acute URI (ICD-10 - J06.9) 01/10/2024 Anemia, unspecified type (ICD-10 - D64.9) Will need to recheck a CBC in 2 weeks once she is feeling better. 02/29/2024 Acute anemia (ICD-10 - D64.9) 03/07/2024 Age-related osteoporosis without current pathological fracture (ICD-10 - M81.0) 03/12/2024 Iron deficiency anemia (ICD-10 - D50.9) She is hemodynamically stable. She is provided a Hemoccult test kit to obtain stool sample at home and return to office. Plan to repeat CBC upon return. 03/12/2024 COPD exacerbation (ICD-10 - J44.1) Finish course of antibiotics and steroids. 02/29/2024 Acute URI (ICD-10 - J06.9) Has cough medication at home. 04/26/2024 Status post colostomy (ICD-10 - Z93.3) 04/26/2024 Perforation of intestine (ICD-10 - K63.1) Discharge summaries from [facility] reviewed. She has been on eliquis at [place] but her daughter states she has the [...] 10/23/2024 BMI 23.0-23.9, adult (ICD-10 - Z68.23) 10/31/2024 Iron deficiency anemia (ICD-10 - D50.9) 11/27/2024 Acute URI (ICD-10 - J06.9) 11/27/2024 BMI 23.0-23.9, adult (ICD-10 - Z68.23) 12/05/2024 Dysuria (ICD-10 - R30.0) 12/05/2024 Acute [...] go down and make an appt with [facility]. 04/26/2024 Pneumonia of both lower lobes due [...] 12/05/2024 Acute abdominal pain (ICD-10 - R10.9) 06/19/2024 Acute renal failure, unspecified acute renal failure type (ICD-10 - N17.9) 06/05/2024 Presence of pessary (ICD-10 - Z96.0) 02/29/2024 Vitamin D deficiency (ICD-10 - E55.9) [...] 06/19/2024 BMI 21.0-21.9, adult (ICD-10 - Z68.21) 04/26/2024 Chronic anemia (ICD-10 - D64.9) 06/05/2024 Weight loss (ICD-10 - R63.4) Has lost a lot of weight since her colostomy. Her daugther states she does eat but much less than she did before the surgery. Encouraged protein shakes if she didn't eat. Plan Of Treatment Pending Test Test Name [...] End Date [employer] (MEDICARE) [address] [address] [place] [address] [id number] MILTON QUEENIE Self - patient is the insured MEDICAID [employer] [address] [place] [id number] QUEENIE ROSE Self - patient is the [...]
--- OUTSIDE RECORDS SUMMARY | 2024-12-06 12:56 | XMS_ITS | Encounter Summary ---
Author [place] [address] Care Team Providers Care Information Technology Director Name Role Phone Unavailable Primary Care Provider Unavailabl e Reason for Visit * Reason Onset Date Comments Surgery Scheduling 09/05/2024 Encounter Details Date Type Department Care Team (Late st Contact Info) Description 09/05/2024 Telephone [facility] Urogynecology [address] [phone] Melanie Yan LPN Surgery Scheduling [...] TEAMS message sent to Isa (Dr. Arzola's scheduler conveyor) advising that Dr. Arzola sent a message [...] the first week of October and in [place] the Monday and already scheduled for a Coordinated Case on. I will wait for a return message from Isa * Telephone Encounter - Melanie Yan LPN - 09/11/2024 10:26 AM EDT Spoke with Isa (Dr. Arzola's scheduler conveyor) thru TEAMS. She has scheduled Patient's Colonoscopy. [...] Encounter [facility] [address] [place] [address] Leta Dupont MD [address] [place] [id number] 01/16/2025 7:30 AM EST - 01/16/2025 9:05 AM EST Surgery [facility] [address] [place] [address] Leta Dupont MD [address] [place] [id number] [place] COLPOCLEISIS 02/26/2025 9:00 AM EST Office Visit [facility]ne[facility] [address] [phone] Antonina Ji PA-C [address] [place] [id number] Scheduled Orders Name Type Priority Associated [...]
--- OUTSIDE RECORDS SUMMARY | 2024-12-06 12:56 | XMS_ITS | Referral Summary ---
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
--- OUTSIDE RECORDS SUMMARY | 2024-12-06 12:56 | XMS_ITS | Clinical Summary ---
Author Organization [facility] Address [address] [place] [address] Care Team Providers Care Daycare Manager Name Role Phone Ananth Almeida MD Primary Care Provider [phone] Social History Tobacco Use Types Packs/Day Years [...] or (1 - 1-dose 75+ series) 07/06/2022 [id number] Vaccine (1 - 2023- season) 2024 UKY-Influenza [...] patient's age to complete this topic Insurance [facility] MEDICARE Care Teams Daycare Manager Relationship Specialty Start Date End Date Ananth Almeida MD [address] [place] [address] PCP - General 03/13/20
--- OUTSIDE RECORDS SUMMARY | 2024-12-06 12:56 | XMS_ITS | Clinical Summary ---
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
--- OUTSIDE RECORDS SUMMARY | 2024-12-06 12:56 | XMS_ITS | Encounter Summary ---
Author Organization [facility] [place] [address] Care Team Providers Care Assembly Stock Supervisor Name Role Phone Unavailable Primary Care Provider Unavailabl e Encounter Details Date Type Department Care Team (Latest Contact Info) Description 11/07/2024 Travel Social History Tobacco Use Types Packs/Day Years Used Date Smoking Tobacco: Never Smokeless Tobacco: Never Alcohol Use Standard Drinks/Week Comments Not Currently 0 (1 standard drink = 0.6 oz pur e alcohol) [facility] Utilities Answer Date Recorded In the [...] Date Recorded PHQ-2 Total Score 0 11/08/2024 [facility] [place] of Occupat ional Health - Occupational Stress [...] money to get more. Never true 11/08/2024 [facility] IP Transportation Answer D ate [...] 2:15 PM EDT Whitney Joyce RN * [place] Suicide Severity Rating Scale (Q shift for [...] Encounter [facility]IOP [address] [place] [address] Leta Dupont MD [address] [place] [phone] 01/16/2025 7:30 AM EST - 01/16/2025 9:05 AM EST Surgery [facility]TT PERIOP [address] [place] [address] Leta Dupont MD [address] [place] [phone] [place] COLPOCLEISIS 02/26/2025 9:00 AM EST Office Visit [facility] [address] [address] Antonina Ji PA-C [address] [place] [address] Scheduled Procedures Name Priority Associated [...]
--- OUTSIDE RECORDS SUMMARY | 2024-12-06 12:57 | XMS_ITS | Encounter Summary ---
Author Organization [place] [place] [address] Care Team Providers Care Crusher Feeder Name Role Phone Unavailable Primary Care Provider Unavailabl e Reason for Visit * Reason Onset Date Comments Surgery Scheduling 10/07/2024 Clearance 10/07/2024 Encounter Details Date Type Department Care Team (Late st Contact Info) Description 10/07/2024 Telephone [facility] [address] [facility] [place] [address] Isa Barraza RMA Surgery Scheduling; [...] Date: 11/07/24 Arrival time: 5:30 am Location: [address] [place]. [address] Stop taking your Eliquis 3 days prior [...] concerns, please send me a message through LinkCloud or call the office at [phone]. Thanks! Isa AGUSTIN * Telephone Encounter - [...] Date: 10/17/24 Arrival time: 7:45 am Location: [address] [place]. [address] Pre testing department through the hospital will [...] concerns, please send me a message through LinkCloud or call the office at [phone]. Thanks! Isa AGUSTIN * Addendum Note - [...] Encounter FTT PERIOP [address] [place] [address] Leta uDpont MD [address] [place] [phone] 01/16/2025 7:30 AM EST - 01/16/2025 9:05 AM EST Surgery FTT PERIOP [address] [place] [address] Leta Dupont MD [address] [place] [phone] [place] COLPOCLEISIS 02/26/2025 9:00 AM EST Office Visit [facility] [address] [address] Antonina Ji PA-C [address] [...]
--- OUTSIDE RECORDS SUMMARY | 2024-12-06 12:57 | XMS_ITS | Clinical Summary ---
Author Organization [facility] Address [address] [place] [address] Phone Care Team Providers Care High School Foreign Language Tutor Name Role Phone Chas Barrera Primary Care Provider [phone] Allergies No known active allergies Medications NIFEdipine [...] Oral Tablet Take by mouth daily. Active Xkcyl-6-TEN-EPA -Fish Oil (FISH OIL) 1,200 (144-216) mg [...] PM EDT Hospital Encounter [facility] [address] Jennifer Ely, MACHINE PRINTER HOSE Follow-up examination following surgery (Primary Dx); History of colostomy reversal Discharge Disposition: Home or Self Care 11/07/2024 7:33 AM EDT [facility] [place] [address] Christal Owens MD Wilson, Christine E, APRN 11/07/2024 7:30 AM EDT - 11/07/2024 11:50 AM EDT [facility] [place] [address] Monica Arzola MD DAVINCI ROBOTIC REVERSAL NII POUCH 11/07/2024 5:28 AM EDT - 11/11/2024 1:27 PM EDT Hospital Encounter [facility] [address] [place] [phone] Monica Arzola MD Colostomy status (HCC) Discharge Disposition: Home or Self Care 11/07/2024 Travel 10/31/2024 10:30 AM EDT Office Visit [facility] [address] [place] [address] [place] [address] Jennifer Ely, MACHINE PRINTER HOSE Encounter for preoperative examination for general surgical procedure (Primary Dx); Colostomy status (HCC); Parastomal hernia without obstruction or gangrene 10/23/2024 9:35 AM EDT - 10/23/2024 11:59 PM EDT Hospital Encounter [facility] PRE-ADMIT TESTING [facility] [place] [address] Colostomy status (HCC) (Primary Dx); Hypertension, unspecified type; Preop testing Discharge Disposition: Home or Self Care 10/23/2024 Travel 10/07/2024 Telephone [facility] [address] [facility] [place] [address] Isa Barraza RMA Surgery Scheduling; Clearance 10/03/2024 9:38 AM EDT Anesthesia Event [facility] ENDOSCOPY [facility] [place] [address] Sean Rizo MD Trog, Lynnsey, ELISA 10/03/2024 8:44 AM EDT - 10/03/2024 11:59 PM EDT Hospital Encounter [facility] ENDOSCOPY [facility] [place] [address] Monica Arzola MD English, Collin, MD Schwietering, Anna, CRNA Colostomy status (HCC); Colostomy present (HCC); Perforation of intestine (HCC) Discharge Disposition: Home or Self Care 10/03/2024 Orders Only [facility] [address] [place] [address] [place] [address] Monica Arzola MD Perforated diverticulum (Primary Dx) 09/23/2024 10:24 AM EDT - 09/23/2024 11:59 PM EDT Hospital Encounter [address] [place] [address] Monica Arzola MD Colostomy status (HCC) Discharge Disposition: Home or Self Care 09/16/2024 8:19 AM EDT - 09/16/2024 11:59 PM EDT Hospital Encounter [facility] [address] [place] [address] Monica Arzola MD Colostomy status (HCC) Discharge Disposition: Home or Self Care 09/11/2024 Telephone [facility] [address] [place] [address] [place] [address] Isa Barraza RMA Surgery Scheduling (colonoscopy) 09/06/2024 Telephone [facility] [address] [place] [address] Lenora Baez MA Other 09/05/2024 Telephone [facility] [address] [address] Melanie Villagomez LPN Surgery Scheduling from Last 3 Months Immunizations Immunization Administration [...] = 0.6 oz pur e alcohol) [facility] Utilities Answer Date Recorded In the past 12 months has e [employer], gas, oil, or water [employer] threatened to shut off services in your home? No 11/08/2024 Overall Financial Resource Strain (CARDIA) Answe r Date Recorded How hard is it for you to pa y for the very basics like food, housing, medical care, and heating? Not hard at all 11/08/2024 PHQ-2 Answer Date Recorded PHQ-2 Total Score 0 11/08/2024 [facility] [place] of Occupat ional Health - Occupational Stress [...] Never true 11/08/2024 [facility] IP Transportation Answer D ate Recorded In [...] Encounter [facility]TT PERIOP [address] [place] [place] [address] Leta Dupont MD [address] [place] [address] 01/16/2025 7:30 AM EST - 01/16/2025 9:05 AM EST Surgery [facility]IOP [address] [place] [place] [address] Leta Dupont MD [address] [place] [address] [place] COLPOCLEISIS 02/26/2025 9:00 AM EST Office Visit [facility] [address] [phone] Antonina Ji PA-C [address] [place] [address] Scheduled Procedures Name Priority Associated [...] 75+ series) 07/06/2022 COVID-19 Vaccine ( season) 2024 Influenza Vaccine (#1) 2024 , 12/28/2022, 04/14/2021, [...] AIRWAY PLACEMENT Routine 11/07/2024 7:43 AM EDT [place] LAPS CLSR NTRSTM LG/SM INT W/RESCJ & [...] of7 resultswithin the time period is included. Pathologist [facility] ECG INTERPRET NSR [facility] 11/11/2024 7:53 AM EDT Narrative [facility] - 11/11/2024 7:58 AM EDT EH - ROUTINE; IVCD [place] 0.14 QRS 0.14 RR 0.75 QT 0.40 QTc 0.46 See Clinical Report link for waveform capture us Unknown Provider POINT OF CARE CARDIOLOGY Final Result [facility] [address] [place] [address] * (ABNORMAL) CBC (11/11/2024 6:29 [...] 11/11/2024 7:06 AM EDT [facility] MCHC 32.5 30.7 - 35.5 g/dL 11/11/2024 7:06 AM EDT [facility] RDW 13.8 <=14.9 % 11/11/2024 7:06 AM EDT [facility] Platelet 284 155 - 369 x10(3)/mcL 11/11/2024 7:06 AM EDT [facility] MPV 8.4(L) 8.8 - 12.5 fL 11/11/2024 7:06 AM EDT [facility] Blood VENOUS BLOOD / Unknown Venipuncture / Unknown 11/11/2024 6:29 AM EDT 11/11/2024 6:56 AM EDT Nancy He MD HEMATOLOGY ORDERABLES Final Re sult [facility] [address] [facility] , [address] [place] [id number] * (ABNORMAL) BASIC METABOLIC PANEL (11/09/2024 9:56 AM EDT) Only the most recent of2 resultswithin the time period is included. Sodium 134(L) 136 - 145 mmol/L 11/09/2024 10:55 AM EDT [facility] Potassium 3.7 3.5 - 5.0 mmol/L 11/09/2024 10:55 AM EDT [facility] Chloride 99 98 - 107 mmol/L 11/09/2024 10:55 AM EDT [facility] Total CO2 23 22 - 29 mmol/L 11/09/2024 10:55 AM EDT [facility] Anion Gap 12 7 - 16 mmol/L 11/09/2024 10:55 AM EDT [facility] Calcium 9.4 8.8 - 10.4 mg/dL 11/09/2024 10:55 AM EDT [facility] Glucose Lvl 111(H) 70 - 99 mg/dL 11/09/2024 10:55 AM EDT [facility] BUN 15 8 - 23 mg/dL 11/09/2024 10:55 AM EDT [facility] Creatinine 0.99 0.51 - 1.30 mg/dL 11/09/2024 10:55 AM EDT [facility] eGFR (CKD-EPIcr 2020) 58(L) >=60 mL/min/1.7 3 m2 11/09/2024 10:55 AM EDT [facility] Comment:Estimated GFR was ca lculated using the CKD-EPIcr (2020) equation refit without race. The equation is recommended by the National Kidney Foundation - [place] Society of Nephrology Task Force. Blood VENOUS BLOOD / Unknown Venipuncture / Unknown 11/09/2024 9:56 AM EDT 11/09/2024 10:20 AM EDT us Nancy He MD CHEMISTRY ORDERABLES Final Res ult [facility] [address] [facility] , [place] [address] * (ABNORMAL) CBC WITH DIFF (11/08/2024 7:14 AM EDT) Only the most recent of2 resultswithin the time period is included. WBC 10.1 3.7 - 10.3 x10(3)/mcL 11/08/2024 7:47 AM EDT [facility] RBC 3.24(L) 3.90 - 5.20 x10(6)/mcL 11/08/2024 [...] 7:47 AM EDT [facility] [place] Percent 8.6 % 11/08/2024 7:47 AM EDT [facility] Eos Percent 0.4 % 11/08/2024 7:47 AM EDT [facility] Baso Percent 0.2 % 11/08/2024 7:47 AM EDT [facility] Neut # 7.1(H) 1.6 - 6.1 x10(3)/mcL 11/08/2024 7:47 AM EDT [facility] Comment:Neutrophils equals s egs plus bands IMMGRAN# 0.0 0.0 - 0.1 x10(3)/mcL 11/08/2024 7:47 AM EDT [facility] Comment:Automated count of m etamyelocytes, myelocytes and promyelocytes. An absolute IG <0.1 is reported as 0.0. Lymph # 2.0 1.2 - 3.9 x10(3)/mcL 11/08/2024 7:47 AM EDT [facility] [place] # 0.9 0.3 - 0.9 x10(3)/mcL 11/08/2024 7:47 AM EDT [facility] [facility] Eos# 0.0 0.0 - 0.5 x10(3)/mcL 11/08/2024 7:47 AM EDT [facility] Baso # 0.0 0.0 - 0.1 x10(3)/[facility] 11/08/2024 7:47 AM EDT [facility] [employer] Blood VENOUS BLOOD / Unknown Venipuncture / Unknown 11/08/2024 7:14 AM EDT 11/08/2024 7:33 AM EDT us Jennifer Porter PA-C HEMATOLOGY ORDERABLES Final Result [facility] [employer] [address] [facility] , [place] [address] * (ABNORMAL) GLUCOSE METER POC (11/07/2024 12:05 PM EDT) Only the most recent of4 resultswithin the time period is included. [facility] Glucose Meter POC 152(H) 70 - 100 mg/dL 11/07/2024 12:07 PM EDT [facility] Sample Type Capillary 11/07/2024 12:07 PM EDT [facility] Patient Status Non-Critical Patient 11/07/2024 12:07 PM EDT [facility] Blood BLOOD SPECIMEN / Unknown 11/07/2024 12:05 PM EDT 11/07/2024 12:07 PM EDT Monica Arzola MD POINT OF CARE TEST ORDERABLES Fi nal Result [address] [id number] * PATHOLOGY TISSUE REQUEST (11/07/2024 8:23 AM EDT) CASE REPORT Surgical Pathology Case: [id number] Authorizing Provider: Monica Arzola MD Collected: 11/07/2024 0823 Ordering Location: ED SURGERY Received: 11/07/2024 0802 Pathologist: Levi Bedoya MD Intraop: Liliane Qureshi MD Specimens: A) - Omentum, Omental tissue B) - Colostomy Site, Colostomy Trim C) - Large Intestine, Rectum, Rectal Stump D) - Abdominal, fat necrosis E) - Abdominal, Anastamotic rings 11/12/2024 5:[address] [facility] FINAL DIAGNOSIS A. Omental tissue, [...] atypia or malignancy. 11/12/2024 5:[address] [facility] at 1743 EDT GROSS DESCRIPTION [...] mucosa throughout the specimen is crocker-white, unremarkable. Talent Scout sections are submitted in 1 cassette. INGA [...] masses, or areas of dehiscence are identified. Talent Scout sections are submitted as follows: C1 = [...] material. Both tissues display unremarkable crocker-white mucosa. Talent Scout sections are submitted in 1 cassette. INGA Dong PA (ASCP) 11/12/2024 5:43 PM EDT [facility] MICROSCOPIC DESCRIPTION The microscopic examination may have been rendered in whole, or in part, by analyzing high-resolution digital images (whole slide images) on the [employer] Medical Digital Pathology platform validated at [facility]. 11/12/2024 5:[facility] INTRAOPERATIVE CONSULTATION FSA. Negative for malignancy (fat necrosis and sjlvnrg-[id number] e giant cell reaction). AM to [place] 11/12/2024 5:[facility] EMBEDDED IMAGES 5:43 PM EDT [facility] Tissue OMENTUM STRUCTURE / Unknown 11/07/2024 [...] ORDERABLES Final Resul t Performing Organization Address City/[facility] Co de Phone Number [facility] [address] [place] [address] [facility] [address] [place] [address] * INTRAOP AIRWAY PLACEMENT (11/07/2024 7:43 AM EDT) Narrative [facility] - 11/07/2024 7:43 AM EDT [place] [...] Atraumatic and Unchanged Insertion attempts: 1 Title: AUTOMOTIVE SOFTWARE ENGINEER us Christal Owens MD [place] ANESTHESIA Final Res ult Performing Organization Address City/[facility] Co de Phone Number [facility] [address] [place] [address] * BB HISTORY CHECK (10/23/2024 11:05 AM EDT) BB HISTORY CHECK (1) No Previous History 10/23/2024 11:38 AM EDT [facility] Blood VENOUS BLOOD / Unknown Venipuncture / Unknown 10/23/2024 11:05 AM EDT 10/23/2024 11:11 AM EDT us Lynnsey Trog MACHINE PRINTER HOSE BLOOD BANK ORDERABLES Final Re sult [facility] [address] [place] [id number] * SURGERY DATE (10/23/2024 11:05 AM EDT) Surgery Date (1) Complete 10/23/2024 11:45 AM EDT [facility] Blood VENOUS BLOOD / Unknown Venipuncture / Unknown 10/23/2024 11:05 AM EDT 10/23/2024 11:11 AM EDT Lynrichelle Trog MACHINE PRINTER HOSE BLOOD BANK ORDERABLES Final Re sult [facility] [address] [place] [id number] * ABORH (10/23/2024 11:05 AM EDT) Pathologist [facility] ABORH Int A POS 10/23/2024 1:0 2 PM EDT [facility] Blood VENOUS BLOOD / Unknown Venipuncture / Unknown 10/23/2024 11:05 AM EDT 10/23/2024 11:11 AM EDT Lynnsey Trog MACHINE PRINTER HOSE BLOOD BANK ORDERABLES Final Re sult [facility] [address] [place] [address] * ANTIBODY SCREEN IGG (10/23/2024 11:05 AM EDT) ABSC IgG Int Negative 10/23/2024 1:02 PM EDT [facility] Blood VENOUS BLOOD / Unknown Venipuncture / Unknown 10/23/2024 11:05 AM EDT 10/23/2024 11:11 AM EDT [place] APRN BLOOD BANK ORDERABLES Final Re sult [facility] [address] [place] [address] * COLONOSCOPY (10/03/2024 10:08 AM EDT) Anatomical [...] Quispe CRNA, MD Anesthesiologist Divya Novoa RN Wanigan Clerk Monica Arzola MD Performing Provider Medications [...] of bowel preparation was evaluated using the [place] Bowel Preparation Scale with scores of: right [...] AIRWAY PLACEMENT (10/03/2024 9:38 AM EDT) Narrative [facility] - 10/03/2024 9:38 AM EDT Clary Lovell CRNA 10/03/2024 10:19 AM Intraop Airway Placement: Date/Time: 10/03/2024 9:38 AM Airway type: Nasal cannula salter Sean Rizo MD [place] ANESTHESIA Edited Result - Final [facility] [address] [place] [id number] * CT ABDOMEN PELVIS W CONTRAST (09/23/2024 [...] - 1.3 mg/dL 09/23/2024 10:36 AM EDT [facility] Blood BLOOD SPECIMEN / Unknown 09/23/2024 10:34 AM EDT 09/23/2024 10:36 AM EDT Monica Arzola MD POINT OF CARE TEST ORDERABLES Fi nal Result [facility] [address] [place] [address] * [place] BARIUM ENEMA (09/16/2024 [...] of 12 images retained in PACS. FINDINGS: Director Product Development film the abdomen demonstrates moderate stool burden [...] of 12 images retained in PACS. FINDINGS: Director Product Development film the abdomen demonstrates moderate stool burden [...] Advance Directives For more information, please contact: [phone] * Full Code (Latest Code Status on File) Date Activated Date Inactivated Comments 11/07/2024 3:18 PM 11/11/2024 5:27 PM Care Teams High School Foreign Language Tutor Relationship Specialty Start Date End Date Chas Barrera [facility] [address] [place] [address] PCP - General Family Medicine 11/08/24
--- OUTSIDE RECORDS SUMMARY | 2024-12-06 12:57 | XMS_ITS | Encounter Summary ---
Author Organization [facility] [place] [address] Care Team Providers Care Director Mission Name Role Phone Unavailable Primary Care Provider [...] Encounter [facility] [address] [place] [address] Leta Dupont MD [address] [place] [phone] 01/16/2025 7:30 AM EST - 01/16/2025 9:05 AM EST Surgery [facility] [address] [place] [address] Leta Dupont MD [address] [place] [phone] LEFORT COLPOCLEISIS 02/26/2025 9:00 AM EST Office Visit [facility] [address] [address] Antonina Ji PA-C [address] [place] [...]
--- NOTE | 2024-12-06 17:24 | PC.NURSE ---
pt is A&Ox4. she is getting zosyn every six hours. she has complained of some pain in her belly earlier and has a temp of 99.7. I reached out to the office earlier and to the functional director dr but haven't heard back yet to get some tylenol ordered. pt has no other needs at this time. call light is within reach.
[2024-12-06] MEDS: ACETAMINOPHEN 325MG TAB 650 MG PO ×2 (17:59→23:41)
[2024-12-06] MEDS: 0.9 % SODIUM CHLORIDE 1000ML 1,000 ML 50 ML IV (18:52)
[2024-12-06] MEDS: ATORVASTATIN 10MG TABLET 10 MG PO (21:01)
[2024-12-07] MEDS: PIPERACILLIN/TAZO 2.25 GM in 0.9 % SODIUM CHLORIDE 50 ML IV ×2 (03:29→09:25)
[2024-12-07 04:00] VITALS: BP 137/75; PULSE 76; RESP 12; TEMP 37.2; O2SAT 94; BMI 27.2
[2024-12-07 08:00] VITALS: BP 153/61; PULSE 72; RESP 14; TEMP 37.2; O2SAT 90
[2024-12-07] MEDS: CARVEDILOL 12.5MG TABLET 12.5 MG PO ×2 (08:35→20:22)
[2024-12-07] MEDS: APIXABAN 5MG TABLET 2.5 MG PO ×2 (08:35→20:23)
[2024-12-07 09:14] LABS: Hematocrit 25.0 % (37.0-47.0); Hemoglobin 8.8 g/dL (12.2-16.2); Immature Granulocytes % 0.8 %; Mean Corpuscular HGB Conc 35.2 g/dL (31.8-35.4); Mean Corpuscular Hemoglobin 32.0 pg (27.0-31.2); Mean Corpuscular Volume 90.9 fl (81-99); Nucleated Red Blood Cells % 0 %; Platelet Count 185 K/mm3 (142-424); Red Blood Count 2.75 M/mm3 (4.20-5.40); Red Cell Distribution Width-SD 45.1 fL; White Blood Count 15.1 K/mm3 (4.8-10.8)
[2024-12-07 09:30] LABS: Alanine Aminotransferase 35 U/L (12-78); Albumin Level 3.0 g/dl (3.5-5.0); Albumin/Globulin Ratio 1.2 (1.1-1.8); Alkaline Phosphatase 145 U/L (38-126); Anion Gap 13.1 mEq/L (5-15); Aspartate Amino Transferase 33 U/L (14-36); Bilirubin,Total 1.7 mg/dl (0.2-1.3); Blood Urea Nitrogen 41 mg/dl (7-17); Calcium 8.1 mg/dl (8.4-10.2); Carbon Dioxide 21 mmol/L (22.0-30.0); Chloride 96 mmol/L (98-107); Creatinine Clearance Estimated 18 mL/min (50-200); Creatinine,Serum 2.50 mg/dl (0.52-1.04); Estimated Glomerular Filt Rate 19 ml/min (>60); GFR (African American) 23 ML/MIN (>60); Globulin 2.6 g/dL (1.3-3.2); Glucose 140 mg/dl (74-100); Potassium 3.1 mmoL/L (3.5-5.1); Sodium 127 mmol/L (136-145); Total Protein,Serum 5.6 g/dl (6.3-8.2)
[2024-12-07 12:00] VITALS: BP 148/67; PULSE 70; RESP 14; TEMP 36.6; O2SAT 96
--- NOTE | 2024-12-07 12:19 | EXP.ACUTE.PN ---
Subjective *Date: 12/07/24 *Time: 12:19 Interval history: Clinically she seems stable, but WBC remains elevated. Urine culture revealed E. coli. Sensitivities suggest a change in antibiotics. She has no allergies listed. Sodium is low at 127 and potassium low at 3.1. Will supplement potassium. Hgb=8.8. Add Ferrous Sulfate. Medical Exam Vital signs and Labs for Last 24 Hours: Vital Signs Temp Pulse Resp BP Pulse Ox O2 Del Method 12/07/24 12:00 97.9 F 70 14 148/67 H 96 Room Air 12/07/24 11:00 Room Air 12/07/24 09:00 Room Air 12/07/24 08:00 Room Air 12/07/24 08:00 99.0 F 72 14 153/61 H 90 L Room Air 12/07/24 05:00 Room Air 12/07/24 04:00 98.9 F 76 12 137/75 94 L Room Air 12/07/24 03:00 Room Air 12/06/24 23:57 98.6 F 80 12 138/75 93 L 12/06/24 23:00 Room Air 12/06/24 21:00 Room Air 12/06/24 20:00 Room Air 12/06/24 19:48 98.2 F 78 12 127/64 96 Room Air 12/06/24 18:46 Room Air 12/06/24 17:00 Room Air 12/06/24 16:00 99.7 F H 90 14 140/82 92 L Room Air 12/06/24 15:10 Room Air 12/06/24 13:10 Room Air Intake and Output 12/07/24 12/07/24 12/07/24 03:59 11:59 19:59 Intake Total 170 / 1420 100 / 1420 Output Total 550 / 2150 900 / 2150 0 / 0 Balance -380 / -730 -800 / -730 0 / 0 Intake: Intake, Oral Amount 120 / 220 Intake, Total IV Amount 50 / 1200 100 / 1200 Piperacillin/Tazo 2.25 gm In 0. 50 / 200 100 / 200 9 % Sodium Chloride 50 ml @ 100 mls/hr IV Q6H [facility] Rx#:[id number] Output: Output, Urine Amount 550 / 2150 900 / 2150 0 / 0 Other: Number of Unmeasured Voids 0 0 1 Number of Bowel Movements 1 1 1 Weight 129 lb 11.2 oz Laboratory Results - last 24 hr 12/07/24 09:10: WBC 15.1 H, RBC 2.75 L, Hgb 8.8 L, Hct 25.0 L, MCV 90.9, MCH 32.0 H, MCHC 35.2, RDW 13.7, Plt Count 185, MPV 9.1, Neut % (Auto) 89.1 H, Lymph % (Auto) 6.0 L, [place] % (Auto) 3.3, Eos % (Auto) 0.5, Baso % (Auto) 0.3, Neut # (Auto) 13.4 H, Lymph # (Auto) 0.9, [place] # (Auto) 0.5, Eos # (Auto) 0.1, Baso # (Auto) 0.0, Sodium 127 L, Potassium 3.1 L, Chloride 96 L, Carbon Dioxide 21 L, Anion Gap 13.1, BUN 41 H, Creatinine 2.50 H, Estimated Creat Clear 18, Estimated GFR 19 L*, Est GFR ( Amer) 23 L, Glucose 140 H, Calcium 8.1 L, Total Bilirubin 1.7 H, AST 33 D, ALT 35, Alkaline Phosphatase 145 H, Total Protein 5.6 L, Albumin 3.0 L, Globulin 2.6, Albumin/Globulin Ratio 1.2 I & O for Labs for Last 24 Hours: Intake & Output 12/05/24 12/06/24 12/07/24 12/08/24 11:59 11:59 11:59 11:59 Intake Total 2200 / 2200 1420 / 1420 Output Total 800 / 800 2150 / 2150 0 / 0 Balance 1400 / 1400 -730 / -730 0 / 0 Weight 125 lb 12.8 oz 129 lb 11.2 oz Microbiology Reports for the Last 24 Hours: Microbiology 12/05/24 14:45 Urine,Clean Catch Urine Culture - Final Escherichia coli 12/05/24 14:47 Blood Blood Culture - Preliminary Gram Negative Rods 12/05/24 14:47 Blood Blood Culture - Preliminary Gram Negative Rods Head: Present normocephalic ENT: Absent mucous membranes dry Neck: Present normal inspection Respiratory: Present CTA bilaterally; Absent respiratory distress Cardiac: Present Reg Rate and Rhythm GI: Present distention, tenderness (at ostomy repair site) and normal bowel sounds Rectal (female): Present deferred (female): Present deferred Extremities: Absent edema Skin: Present intact and pallor Neuro: Present alert and oriented x 3 Assessment and Plan *Assessment and plan (1) UTI (urinary tract infection): Status: Acute Category: Medical Code(s): N39.0 - Urinary tract infection, site not specified (2) Sepsis: Status: Acute Category: Medical Code(s): A41.9 - Sepsis, unspecified organism (3) E coli infection: Status: Acute Category: Medical Code(s): A49.8 - Other bacterial infections of unspecified site (4) Encephalopathy: Problem Comment: Recurrent encephalopathy in the setting of acute illnesses. Status: Resolved Qualifiers: Encephalopathy type: toxic metabolic Qualified Code(s): G92.8 - Other toxic encephalopathy Category: Medical Code(s): G93.40 - Encephalopathy, unspecified (5) Acute renal failure: Status: Resolved Qualifiers: Acute renal failure type: unspecified Qualified Code(s): N17.9 - Acute kidney failure, unspecified Category: Medical Code(s): N17.9 - Acute kidney failure, unspecified (6) Microcytic anemia: Status: Acute Category: Medical Code(s): D50.9 - Iron deficiency anemia, unspecified (7) Hypertension: Status: Chronic Qualifiers: Hypertension type: essential hypertension Qualified Code(s): I10 - Essential (primary) hypertension Category: Medical Code(s): I10 - Essential (primary) hypertension (8) Hyponatremia: Status: Acute Category: Medical Code(s): E87.1 - Hypo-osmolality and hyponatremia (9) Hypokalemia: Status: Acute Category: Medical Code(s): E87.6 - Hypokalemia Plan As described above.
[2024-12-07] MEDS: FERROUS SULFATE 325MG TABLET 325 MG PO ×2 (13:01→20:22)
[2024-12-07] MEDS: POTASSIUM CHLORIDE 20MEQ TAB 20 MEQ PO ×2 (13:01→20:22)
[2024-12-07] MEDS: 0.9 % SODIUM CHLORIDE 1000ML 1,000 ML 50 ML IV (15:32)
[2024-12-07 15:48] VITALS: BP 153/76; PULSE 79; RESP 16; TEMP 37.4; O2SAT 93
--- NOTE | 2024-12-07 16:33 | PC.NURSE ---
Pt is A&OX4. Vital signs stable tolerating room air. IV abx and fluids infusing per MAY. Potassium replaced per MAY. Pt sat up in the chair this afternoon. Pt resting comfortably in bed with no further needs voiced at this time.
[2024-12-07 20:00] VITALS: BP 170/93; PULSE 74; RESP 16; TEMP 37.1; O2SAT 93
[2024-12-07] MEDS: ATORVASTATIN 10MG TABLET 10 MG PO (20:22)
[2024-12-08] VITALS (7 sets, daily range): BP systolic 149–187; BP diastolic 69–94; PULSE 65–76; RESP 14–18; TEMP 36.4–37.4; O2SAT 94–98; BMI 26.1
[2024-12-08] MEDS: ACETAMINOPHEN 325MG TAB 650 MG PO (03:50)
--- NOTE | 2024-12-08 03:54 | PC.NURSE ---
patient is alert and oriented x4. ambulates in room with assistance. c/o abdominal pain, medicated per mar for pain. patient had one incontinent loose stool this shift. tolerating RA with O2 sats >90%. no other needs voiced. call button in reach.
[2024-12-08 06:58] LABS: Anion Gap 11.3 mEq/L (5-15); Blood Urea Nitrogen 35 mg/dl (7-17); Calcium 8.2 mg/dl (8.4-10.2); Carbon Dioxide 20 mmol/L (22.0-30.0); Chloride 101 mmol/L (98-107); Creatinine Clearance Estimated 20 mL/min (50-200); Creatinine,Serum 2.10 mg/dl (0.52-1.04); Estimated Glomerular Filt Rate 23 ml/min (>60); GFR (African American) 28 ML/MIN (>60); Glucose 95 mg/dl (74-100); Potassium 3.3 mmoL/L (3.5-5.1); Sodium 129 mmol/L (136-145)
[2024-12-08] MEDS: CARVEDILOL 12.5MG TABLET 12.5 MG PO ×2 (08:19→20:12)
[2024-12-08] MEDS: APIXABAN 5MG TABLET 2.5 MG PO ×2 (08:19→20:12)
[2024-12-08] MEDS: POTASSIUM CHLORIDE 20MEQ TAB 20 MEQ PO ×3 (08:19→20:11)
[2024-12-08] MEDS: FERROUS SULFATE 325MG TABLET 325 MG PO ×2 (10:13→20:12)
--- NOTE | 2024-12-08 10:30 | P.PN_ITS ---
Subjective *Date: 12/08/24 *Time: 10:30 Interval history: She says she feels much better and is anxious to go home. Her potassium and sodium has improved overnight. She is still on 20 mEq of potassium 3 times a day to correct. I think the switch in antibiotic treatment was appropriate. Medical Exam Vital signs and Labs for Last 24 Hours: Vital Signs Temp Pulse Resp BP Pulse Ox O2 Del Method 12/08/24 09:00 Room Air 12/08/24 08:00 Room Air 12/08/24 08:00 97.6 F 65 14 158/88 H 96 Room Air 12/08/24 06:42 Room Air 12/08/24 05:00 Room Air 12/08/24 04:00 97.9 F 73 16 172/90 H 94 L Room Air 12/08/24 03:00 Room Air 12/08/24 01:00 Room Air 12/08/24 00:00 99.3 F 76 16 149/75 H 95 Room Air 12/07/24 23:00 Room Air 12/07/24 21:00 Room Air 12/07/24 20:00 Room Air 12/07/24 20:00 98.7 F 74 16 170/93 H 93 L Room Air 12/07/24 18:46 Room Air 12/07/24 17:00 Room Air 12/07/24 15:48 99.3 F 79 16 153/76 H 93 L Room Air 12/07/24 15:00 Room Air 12/07/24 13:00 Room Air 12/07/24 12:00 97.9 F 70 14 148/67 H 96 Room Air 12/07/24 11:00 Room Air Intake and Output 12/07/24 12/08/24 12/08/24 19:59 03:59 11:59 Intake Total 1290 / 1700 240 / 1700 170 / 1700 Output Total 700 / 2650 850 / 2650 1100 / 2650 Balance 590 / -950 -610 / -950 -930 / -950 Intake: Intake, Oral Amount 240 / 600 240 / 600 120 / 600 Intake, Total IV Amount 1050 / 1100 50 / 1100 0.9 % Sodium Chloride 1000ML 1, 1000 / 1000 000 ml @ 50 mls/hr IV .Q20H [facility] Rx#:[id number] Ceftriaxone Sodium 1 gm In 0.9 50 / 100 50 / 100 % Sodium Chloride 50 ml @ 100 mls/hr IV 0900 [facility] Rx#:[id number] Output: Output, Urine Amount 700 / 2650 850 / 2650 1100 / 2650 Other: Number of Unmeasured Voids 0 1 Number of Bowel Movements 1 1 1 Weight 124 lb 4.8 oz Patient Weight 12/08/24 11:59 Weight 124 lb 4.8 oz Laboratory Results - last 24 hr 12/08/24 06:20: Sodium 129 L, Potassium 3.3 L, Chloride 101, Carbon Dioxide 20 L , Anion Gap 11.3, BUN 35 H, Creatinine 2.10 H, Estimated Creat Clear 20, Estimated GFR 23 L, Est GFR ( Amer) 28 L D, Glucose 95 D, Calcium 8.2 L I & O for Labs for Last 24 Hours: Intake & Output 12/05/24 12/06/24 12/07/24 12/08/24 11:59 11:59 11:59 11:59 Intake Total 2200 / 2200 1740 / 1740 1700 / 1700 Output Total 800 / 800 2150 / 2150 2650 / 2650 Balance 1400 / 1400 -410 / -410 -950 / -950 Weight 125 lb 12.8 oz 129 lb 11.2 oz 124 lb 4.8 oz Microbiology Reports for the Last 24 Hours: Microbiology 12/05/24 14:47 Blood Blood Culture - Final Escherichia coli 12/05/24 14:47 Blood Blood Culture - Final Escherichia coli 12/05/24 14:45 Urine,Clean Catch Urine Culture - Final Escherichia coli Head: Present normocephalic Neck: Present normal inspection Respiratory: Present CTA bilaterally; Absent respiratory distress Cardiac: Present Reg Rate and Rhythm GI: Present soft, distention and normal bowel sounds Rectal (female): Present deferred (female): Present deferred Extremities: Absent edema Skin: Present intact Neuro: Present alert and oriented x 3 Assessment and Plan *Assessment and plan (1) UTI (urinary tract infection): Status: Acute Category: Medical Code(s): N39.0 - Urinary tract infection, site not specified (2) E coli infection: Status: Acute Category: Medical Code(s): A49.8 - Other bacterial infections of unspecified site (3) Sepsis: Status: Acute Category: Medical Code(s): A41.9 - Sepsis, unspecified organism (4) Acute renal failure: Status: Resolved Qualifiers: Acute renal failure type: unspecified Qualified Code(s): N17.9 - Acute kidney failure, unspecified Category: Medical Code(s): N17.9 - Acute kidney failure, unspecified (5) Hypokalemia: Status: Acute Category: Medical Code(s): E87.6 - Hypokalemia (6) Hyponatremia: Status: Acute Category: Medical Code(s): E87.1 - Hypo-osmolality and hyponatremia (7) Encephalopathy: Problem Comment: Recurrent encephalopathy in the setting of acute illnesses. Status: Resolved Qualifiers: Encephalopathy type: toxic metabolic Qualified Code(s): G92.8 - Other toxic encephalopathy Category: Medical Code(s): G93.40 - Encephalopathy, unspecified (8) Hypertension: Status: Chronic Qualifiers: Hypertension type: essential hypertension Qualified Code(s): I10 - Essential (primary) hypertension Category: Medical Code(s): I10 - Essential (primary) hypertension Plan Continue antibiotic treatment. Dr. Cao will see the patient in my absence.
[2024-12-08] MEDS: 0.9 % SODIUM CHLORIDE 1000ML 1,000 ML 50 ML IV (13:56)
--- NOTE | 2024-12-08 16:46 | PC.NURSE ---
Pt is A&Ox4. Vital signs stable tolerating room air. IV abx and fluids infusing per MAR. Pt has no complaints of pain this shift. Pt continues to have diarrhea. Pt sat up in the chair this afternoon. Pt ambulated in the hallway with assistance. Pt resting comfortably supine in bed with no further needs voiced at this time. Call light within reach.
[2024-12-08] MEDS: ATORVASTATIN 10MG TABLET 10 MG PO (20:12)
--- NOTE | 2024-12-08 21:04 | PC.NURSE ---
Addendum entered by Tristin Orona RN 12/09/24 03:10: 0000: SBP 171 - tx per MAY Addendum entered by Tristin Orona RN 12/08/24 22:57: repeat BP 158/85 Original Note: patient BP 187/94 automatic cuff - laying bed resting - contacted Shaheen, prep person with orders to administer HS BP medications per MAY, recheck BP in 2 hours - if SBP >170 give 5mg po amlodipine q12h prn
[2024-12-09] VITALS: BP 171/79; PULSE 72; RESP 17; TEMP 37.5; O2SAT 96
[2024-12-09 00:20] VITALS: TEMP 36.9
[2024-12-09] MEDS: AMLODIPINE 5MG TABLET 5 MG PO (00:29)
--- NOTE | 2024-12-09 03:09 | PC.NURSE ---
patient has ambulated the halls several times t/o shift.
[2024-12-09 04:00] VITALS: BP 162/72; PULSE 75; RESP 17; TEMP 37.2; O2SAT 96; BMI 25.0
[2024-12-09 06:36] LABS: Hematocrit 28.0 % (37.0-47.0); Hemoglobin 9.7 g/dL (12.2-16.2); Immature Granulocytes % 1.5 %; Mean Corpuscular HGB Conc 34.6 g/dL (31.8-35.4); Mean Corpuscular Hemoglobin 31.6 pg (27.0-31.2); Mean Corpuscular Volume 91.2 fl (81-99); Nucleated Red Blood Cells % 0 %; Platelet Count 250 K/mm3 (142-424); Red Blood Count 3.07 M/mm3 (4.20-5.40); Red Cell Distribution Width-SD 46.9 fL; White Blood Count 11.5 K/mm3 (4.8-10.8)
[2024-12-09 06:49] LABS: Anion Gap 12.7 mEq/L (5-15); Blood Urea Nitrogen 26 mg/dl (7-17); Calcium 8.3 mg/dl (8.4-10.2); Carbon Dioxide 23 mmol/L (22.0-30.0); Chloride 99 mmol/L (98-107); Creatinine Clearance Estimated 24 mL/min (50-200); Creatinine,Serum 1.70 mg/dl (0.52-1.04); Estimated Glomerular Filt Rate 29 ml/min (>60); GFR (African American) 35 ML/MIN (>60); Glucose 108 mg/dl (74-100); Potassium 3.7 mmoL/L (3.5-5.1); Sodium 131 mmol/L (136-145)
[2024-12-09 07:19] VITALS: BP 166/92; PULSE 77; RESP 16; TEMP 36.7; O2SAT 96
--- NOTE | 2024-12-09 07:48 | P.PN_ITS ---
Subjective *Date: 12/09/24 *Time: 08:56 Interval history: Patient's adamantly states that she is ready to go home. She is unable to sleep here in the hospital. She is eating without difficulty. She is voiding QS. She has ambulated in the room and in the hallways without difficulty. She denies shortness of breath although she has some cough. She denies any chest pain. White blood cell count has decreased to 11,500 with a hemoglobin of 9.7 hematocrit of 28. Electrolytes reveal increase in sodium to 131. Potassium is 3.7 today. Renal function has improved with a BUN of 26 creatinine 1.70 and GFR of 24. Blood cultures positive for E. coli resistant only to ampicillin and tet racycline. Urine culture is also positive for E. coli resistant only to ampicillin and tetracycline. Patient remains on IV Rocephin and p.o. Levaquin. Blood pressure remains elevated. Exam Data for Last 24 hours Vital signs and Labs for Last 24 Hours: Temp Pulse Resp BP Pulse Ox O2 Del Method 98.1 F 77 16 166/92 H 96 Room Air 12/09/24 07:19 12/09/24 07:19 12/09/24 07:19 12/09/24 07:19 12/09/24 07:19 12/09/24 07:19 Laboratory Results - last 24 hr 12/09/24 05:50: WBC 11.5 H, RBC 3.07 L, Hgb 9.7 L, Hct 28.0 L, MCV 91.2, MCH 31.6 H, MCHC 34.6, RDW 14.0, Plt Count 250 D, MPV 9.6, Neut % (Auto) 69.8, Lymph % (Auto) 17.1, [place] % (Auto) 10.0 H, Eos % (Auto) 1.3, Baso % (Auto) 0.3, Neut # (Auto) 8.0 H, Lymph # (Auto) 2.0, [place] # (Auto) 1.2 H, Eos # (Auto) 0.2, Baso # (Auto) 0.0, Sodium 131 L, Potassium 3.7, Chloride 99, Carbon Dioxide 23, Anion Gap 12.7, BUN 26 H D, Creatinine 1.70 H, Estimated Creat Clear 24, Estimated GFR 29 L, Est GFR ( Amer) 35 L D, Glucose 108 H, Calcium 8.3 L I & O for Last 24 hours: Intake & Output 12/06/24 12/07/24 12/08/24 12/09/24 11:59 11:59 11:59 11:59 Intake Total 2200 / 2200 1740 / 1740 1700 / 1700 1380 / 1380 Output Total 800 / 800 2150 / 2150 3250 / 3250 2900 / 2900 Balance 1400 / 1400 -410 / -410 -1550 / -1550 -1520 / -1520 Weight 125 lb 12.8 oz 129 lb 11.2 oz 124 lb 4.8 oz 119 lb 6.4 oz Microbiology Reports for the Last 24 Hours: Microbiology 12/05/24 14:47 Blood Blood Culture - Final Escherichia coli 12/05/24 14:47 Blood Blood Culture - Final Escherichia coli Constitutional Constitutional: no acute distress Comments: Sitting up in the bed. Appears comfortable. Eating her breakfast. *Routine Respiratory Exam Respiratory: Present CTA bilaterally (Anteriorly and posteriorly) *Routine Cardiovascular Exam Cardiovascular: Present RRR *Routine Abdominal Exam Abdominal: Present soft and normoactive bowel sounds; Absent tenderness or distended *Routine Extremities Exam Extremities: Present full ROM and pulses intact; Absent edema or calf tenderness *Routine Neurological Exam Neurological: Present alert and oriented X3 Assessment and Plan *Assessment and plan (1) UTI (urinary tract infection): Status: Acute Category: Medical Code(s): N39.0 - Urinary tract infection, site not specified (2) E coli infection: Status: Acute Category: Medical Code(s): A49.8 - Other bacterial infections of unspecified site (3) Sepsis: Status: Acute Category: Medical Code(s): A41.9 - Sepsis, unspecified organism (4) Acute renal failure: Status: Resolved Qualifiers: Acute renal failure type: unspecified Qualified Code(s): N17.9 - Acute kidney failure, unspecified Category: Medical Code(s): N17.9 - Acute kidney failure, unspecified (5) Hypokalemia: Status: Acute Category: Medical Code(s): E87.6 - Hypokalemia (6) Hyponatremia: Status: Acute Category: Medical Code(s): E87.1 - Hypo-osmolality and hyponatremia (7) Encephalopathy: Problem Comment: Recurrent encephalopathy in the setting of acute illnesses. Status: Resolved Qualifiers: Encephalopathy type: toxic metabolic Qualified Code(s): G92.8 - Other toxic encephalopathy Category: Medical Code(s): G93.40 - Encephalopathy, unspecified (8) Hypertension: Status: Chronic Qualifiers: Hypertension type: essential hypertension Qualified Code(s): I10 - Essential (primary) hypertension Category: Medical Code(s): I10 - Essential (primary) hypertension (9) E coli bacteremia: Status: Acute Category: Medical Code(s): R78.81 - Bacteremia; B96.20 - Unspecified Escherichia coli [E. coli] as the c ause of diseases classified elsewhere Plan Possibly home today. Will need to remain on antibiotics. Will add losartan 50 mg; saline lock. Dr. aCo entry - Saw patienty, agree with above note. OK to discharge home today with oral Levaquin treatment. F/U with Dr. Harrison in 1 week.
[2024-12-09] MEDS: CARVEDILOL 12.5MG TABLET 12.5 MG PO (08:28)
[2024-12-09] MEDS: IRBESARTAN 75MG TABLET 75 MG PO (08:28)
[2024-12-09] MEDS: FERROUS SULFATE 325MG TABLET 325 MG PO (08:28)
[2024-12-09] MEDS: POTASSIUM CHLORIDE 20MEQ TAB 20 MEQ PO (08:29)
[2024-12-09] MEDS: APIXABAN 5MG TABLET 2.5 MG PO (08:29)
--- NOTE | 2024-12-10 10:14 | SW/DCPLANNER ---
Spoke with patient's daughter on the phone. Patient's daughter stated that she is doing great. Patient's daughter stated that she is aware of her upcoming appointment. Patient's daughter stated that she was able to get her new medicine picked up from [facility]. Patient stated that she has no concerns or questions at this time. Lianna Salguero
--- NOTE | 2024-12-13 17:09 | EXP.DC.SUM ---
General Admission date:: 12/05/24 Discharge date: 12/09/24 HPI HPI HPI: Ms. Szymanski is a 79-year-old white female who presented to the office of [facility] yesterday with AMS and not feeling well. She had been vomiting and having diffuse abdominal pain. She just had a colostomy reversal in Oct. Her WBC was elevated and she had had chills. She was sent to the ER and found to be septic and was admitted. Hospital Course Hospital Course Hospital Course: The patient's abdominal pelvic CT showed colonic wall thickening representing colitis. There was also possible cystitis. There was a hypervascular liver lesion in the left lobe that may have increased in size since 2022 and radiology wanted to consider an MRI with liver protocol. There was also a small amount of ascites. She was started on IV fluids and IV antibiotics. Her urine culture came back showing E. coli as did her blood cultures and a stool culture. Her stool was also positive for Enterobacterales. Her sodium and potassium were low and these were replaced. Her hemoglobin was low and ferrous sulfate was added. By 12/09/2024, she was feeling better and wanted to go home. She was stable to be discharged home on Levaquin and will follow-up in 1 week in the office. Exam Data for Last 24 hours Vital signs and Labs for Last 24 Hours: Temp Pulse Resp BP Pulse Ox O2 Del Method 98.1 F 77 16 166/92 H 96 Room Air 12/09/24 07:19 12/09/24 07:19 12/09/24 07:19 12/09/24 07:19 12/09/24 07:19 12/09/24 09:00 Narrative: Constitutional Comments: Does not appear to feel well *Routine HEENT Exam Head: Present normocephalic and atraumatic Eye: Present EOMI and PERRL ENT: Present mucous membranes dry *Routine Neck Exam Neck: Present supple and full ROM *Routine Respiratory Exam Respiratory: Present CTA bilaterally *Routine Cardiovascular Exam Cardiovascular: Present RRR *Routine Abdominal Exam Abdominal: Present soft, normoactive bowel sounds, tenderness (diffuse), hernia (extensive ventral hernia), surgical scars and ostomy (site with dressing. Clean and dry.) *Routine Rectal Exam Rectal:: deferred *Routine Genitalia Exam Genitalia:: deferred *Routine Extremities Exam Extremities: Absent cyanosis, clubbing or edema *Routine Skin Exam Skin: Present intact; Absent erythema *Routine Neurological Exam Neurological: Present alert and oriented X3 DS: Diagnosis Discharge Diagnosis (1) UTI (urinary tract infection): Status: Acute Code(s): N39.0 - Urinary tract infection, site not specified (2) E coli infection: Status: Acute Code(s): A49.8 - Other bacterial infections of unspecified site (3) Sepsis: Status: Acute Code(s): A41.9 - Sepsis, unspecified organism (4) Acute renal failure: Status: Resolved Code(s): N17.9 - Acute kidney failure, unspecified Qualifiers: Acute renal failure type: unspecified Qualified Code(s): N17.9 - Acute kidney failure, unspecified (5) Hypokalemia: Status: Acute Code(s): E87.6 - Hypokalemia (6) Hyponatremia: Status: Acute Code(s): E87.1 - Hypo-osmolality and hyponatremia (7) Encephalopathy: Status: Resolved Code(s): G93.40 - Encephalopathy, unspecified Qualifiers: Encephalopathy type: toxic metabolic Qualified Code(s): G92.8 - Other toxic encephalopathy Problem details: Recurrent encephalopathy in the setting of acute illnesses. (8) Hypertension: Status: Chronic Code(s): I10 - Essential (primary) hypertension Qualifiers: Hypertension type: essential hypertension Qualified Code(s): I10 - Essential (primary) hypertension (9) E coli bacteremia: Status: Acute Code(s): R78.81 - Bacteremia; B96.20 - Unspecified Escherichia coli [E. coli] as the cause of diseases classified elsewhere Meds Home Medications and Allergies Home Medications ?Medication ?Instructions ?Recorded ?Confirmed ?Type aspirin 81 mg tablet,delayed 81 mg PO MOWEFR 12/31/19 12/05/24 History release (Adult Aspirin Regimen) apixaban 5 mg tablet (Eliquis) 5 mg PO BID #30 tabs 03/28/24 12/05/24 Rx atorvastatin 10 mg tablet 10 mg PO DAILY 05/22/24 12/05/24 History carvedilol 12.5 mg tablet 12.5 mg PO BID 06/19/24 12/05/24 History levofloxacin 500 mg tablet 500 mg PO 2100 #14 tabs 12/09/24 Rx New Prescriptions to Start Prescriptions: levofloxacin [place],Jamal Allergies Allergy/AdvReac Type Severity Reaction Status Date / Time No Known Allergies Allergy Verified 10/14/24 09:02 Discharge Plan Disposition Patient Disposition: Home, Self-Care Condition: Fair Discharge Order Discharge Orders: Discharge Order (Routine); Ordered 12/09/24 Ordered By: Jamal Cao Follow up Plan Follow up with: Salvador Barrera MD [Primary Care Provider, Medical] - 12/17/24 10:15 am Prescriptions/Medication Reconciliation: New levofloxacin 500 mg Tablet 500 mg PO 2100 Qty: 14 0RF Continued atorvastatin 10 mg tablet 10 mg PO DAILY aspirin [Adult Aspirin Regimen] 81 mg tablet,delayed release (DR/EC) 81 mg PO MOWEFR carvedilol 12.5 mg tablet 12.5 mg PO BID Eliquis 5 mg tablet 5 mg PO BID Qty: 30 0RF Rx Instructions: Take 10 mg twice a day for 9 days, then 5 mg twice a day thereafter. Problem Reconciliation Problems Reviewed?: Yes Patient Discharge Instructions ACTIVITY: Continue current activity DIET: continue same diet Patient Instructions: DI for Urinary Tract Infection (UTI), DI for Sepsis in Adults, Stop Light Infection Print Language: Romansh Providers Primary Care Provider: Salvador Barrera Admit Provider: Jessica Harrison Attending Provider: Jessica Harrison
== END 2024-12-09 09:54 | disposition home or self-care (01) | DRG 871 ==
LOC: ER 14:49 → 2ND 18:10
PROVIDERS: Nurse Practitioner; Admitting Provider Family Medicine; Emergency Provider Emergency Medicine; PCP Family Medicine; Visit Provider Family Medicine
DX: A41.51 Sepsis due to Escherichia coli [E. coli] (principal); G92.8 Other toxic encephalopathy; N39.0 Urinary tract infection, site not specified; N17.9 Acute kidney failure, unspecified; D62 Acute posthemorrhagic anemia; E87.1 Hypo-osmolality and hyponatremia; Z16.11 Resistance to penicillins; Z16.29 Resistance to other single specified antibiotic; I48.0 Paroxysmal atrial fibrillation; I11.9 Hypertensive heart disease without heart failure; I25.10 Atherosclerotic heart disease of native coronary artery without angina pectoris; K52.9 Noninfective gastroenteritis and colitis, unspecified; I35.1 Nonrheumatic aortic (valve) insufficiency; E86.0 Dehydration; E87.6 Hypokalemia; D50.9 Iron deficiency anemia, unspecified; N32.81 Overactive bladder; E78.2 Mixed hyperlipidemia; R05.3 Chronic cough; Z79.01 Long term (current) use of anticoagulants; Z79.82 Long term (current) use of aspirin; Z79.899 Other long term (current) drug therapy
CPT/HCPCS: 36415; 71045; 74177; 80048; 80053; 81001; 82550; 83605; 83690; 83735; 84484; 85025; 85610; 85651; 86140; 87040; 87077; 87086; 87088; 87154; 87186; 87636; 93005; 97162; 97166; 99285; J0696; J2543; J7030; J7120; Q9967

== ENCOUNTER 2025-01-27 09:54 | Outpatient (CLI) | payer MEDICARE, MEDICAID, SELFPAY ==
--- NOTE | 2025-01-27 09:58 | MM_ITS ---
PROCEDURE INFORMATION: Exam: MG Bilateral Screening 3D Mammography Exam date and time: 01/27/2025 10:06 AM Age: 79 years old Clinical indication: Screening examination TECHNIQUE: Imaging protocol: Bilateral Screening tomosynthesis and 2D mammography including computer-aided detection (CAD) when performed. COMPARISON: 1. MG MM DIG SCREENING MAMM BI W/CAD 09/05/2022 10:32 AM 2. MG SCBI MM Dig screening mamm BI w/CAD 12/14/2017 9:45 AM FINDINGS: MAMMOGRAPHY: Breast composition: The breasts are extremely dense, which lowers the sensitivity of mammography. Mass: None. Architectural distortion: None. Calcifications: No suspicious calcifications. Asymmetric density: None. Skin thickening: None. Axillary adenopathy: None. IMPRESSION: No mammographic evidence of malignancy. Annual screening is recommended unless otherwise clinically indicated. ASSESSMENT: BI-RADS Category 1: Negative.
== END 2025-01-27 23:59 | disposition home or self-care (01) ==
LOC: RAD 09:55
PROVIDERS: PCP Physician Assistant; Visit Provider Physician Assistant
DX: Z12.31 Encounter for screening mammogram for malignant neoplasm of breast (principal); R92.343 Mammographic extreme density, bilateral breasts
CPT/HCPCS: 77063; 77067

== ENCOUNTER 2025-02-03 09:09 | Outpatient (CLI) | payer MEDICARE, MEDICAID, SELFPAY ==
--- OUTSIDE RECORDS SUMMARY | 2024-07-31 05:50 | XMS_ITS ---
Author Organization [facility] Address [address] [facility] [address] [place] [id number] Care Team Providers Care [employer]itions [employer] Worker Name Role Phone Chas Barrera Primary Care Provider DanielCharlene brooks Unavailable [phone] Allergies No Known Allergies Results Component Value Reference Range Notes CBC Fingerstick (in house) Reviewed date:07/31/2024 12:03:02 PM Interpretation: Performing Lab: Notes/Report: wbc 9.7 3.5 - 10 lym 18.9 15 - 50 mid 5.3 2 - 15 gran 75.8 35 - 80 rbc 3.73 3.5 - 5.5 hgb 11.4 11.5 - 16.5 hct 34.4 35 - 55 mcv 92.1 75 - 100 mch 30.6 25 - 35 mchc 33.2 31 - 38 plat 285 100 - 400 REASON FOR VISIT discuss and explain colostomy bag Medications Medication SIG (Take, Route, Frequency, Duration) Notes Start Date End Date Status Verapamil HCl ER 120 MG 1 tab(s) orally twice a day; Duration: 90 days Not-Takin g Simvastatin 40 MG TAKE 1 TABLET BY ONCE DAILY AT BEDTIME; Duration: 90 Not-Taking Ferrous Sulfate 325 (65 Fe) MG 1 tablet Orally once daily; Duration: 30 day(s) 03/01/2024 Not-Taking Digoxin 125 MCG 1 tablet Orally Once a day; Duration: 30 days Not-Takin g Magnesium 400 MG as directed Orally Not-Taking Losartan Potassium 50 MG 1 tablet Orally Once a day; Duration: 30 day(s) Not-Brian ing Remeron 15 MG 1 tablet at bedtime Orally Once a day 06/21/2024 Active Furosemide 20 MG 1 tablet Orally Once a day; Duration: 30 day(s) Not-Brian ing Carvedilol 12.5 MG 1 tablet with food Orally Twice a day; Duration: 90 days Active Pantoprazole Sodium 40 MG Take 1 tablet by mouth once daily; Duration: 90 Active Nystatin 030293 UNIT/ML 5 mL Mouth/Throa t Three times a day; Duration: 7 days 03/04/2024 Active Eliquis 5 MG 1 tab(s) Orally Two times a day; Duration: 30 days 05/27/2024 Active Atorvastatin Calcium 10 MG 1 tablet Orally Once a day; Duration: 30 days Active Rolling Walker with seat - 1 as needed 06/19/2024 Active Prolia 60 MG/ML as directed Subcutan eous every 6 months 01/17/2023 Active Albuterol Sulfate HFA 108 (90 Base) MCG/ACT 1 puff as needed Inhalation every 4 hrs, prn 02/29/2024 Active Estradiol 0.1 MG/GM as directed Vaginal Active Albuterol Sulfate HFA 108 (90 Base) MCG/ACT 1 puff as needed Inhalation every 4 hrs, prn 12/14/2023 Active Aspirin 81 81 MG 1 tablet Orally Once a day; Duration: 30 day(s) Active Acetaminophen 500 MG 1 capsule as needed Orally every 6 hrs Active Fluzone High-Dose 0.5 ML as directed Intramuscular Active Multivitamin - 1 tablet Orally Once a day; Duration: 30 day(s) Active Problems Problem Type SNOMED Code ICD Code Onset Dates Problem Status W/U Status Risk Notes Problem Colostomy and enterostomy malfunction (585873399) Colostomy complication (K94.00) Active confirmed Vital Signs Weight 115.2 lbs 07/31/2024 Blood pressure systolic 110 mm Hg 08/01/19 25 Blood pressure diastolic 52 mm Hg 025 Heart Rate 80 /min 07/31/2024 Height 58 in 07/31/2024 BMI 24.07 kg/m2 07/31/2024 Encounters Encounter Location Date Provider Diagnosis [facility] [address] [facility] [address] [place] [address] [place] [phone] 07/31/2024 Charlene Benoit Lower extremity corky a R60.0 ; Colostomy complication K94.00 and Acute cough R05.1 Assessments Encounter Date Diagnosis (ICD Code) Assessment Notes Treatment Notes Treatment Clinical Notes Section Notes 07/31/2024 Lower extremity edema (ICD-10 - R60.0) I spoke with cardiology and they want the patient to stop the nifedipine and see if this helps the swelling. She will monitor her HR and BP and call me next week with readings. 07/31/2024 Colostomy complication (ICD-10 - K94.00) She will need an appt with Dr. Hurtado. 07/31/2024 Acute cough (ICD-10 - R05.1) She has cough pills at home. CBC is normal. Plan Of Treatment Medication Medication Name Sig Start Date Stop Date Notes NIFEdipine ER 90 MG 1 tablet on an empty stomach Orally Once a day Treatment Notes Assessment Notes Lower extremity edema I spoke with cardi ology and they want the patient to stop the nifedipine and see if this helps the swelling. She will monitor her HR and BP and call me next week with readings. Colostomy complication She will need an appt with Dr. Hurtado. Acute cough She has cough pills at home. CBC is normal. Next Appt Details Follow Up: via phone, Reason : Progress Notes * MILTON QUEENIEDOB:1945 (79 yo F)Acc No.[id number]:07/31/2024 Progress Notes Patient: QUEENIE CANNON Provider: MARVA Dang :1945 A ge:79 Y S ex:Female Date:07/31/2024 Address:[address] [place] [address], [facility] [id number] Pcp:Chas Barrera Subjective: * Chief Complaints: * 1 . Discuss and explain colostomy bag. * HPI: L e79 year old female presents with c/o Leg edema P t presents today with c/o bilateral swelling in her legs. Pt sts that they get huge at times. Pt denies any pain. Pt sts that she has not noticed any decrease urine output. * ROS: D ERMATOLOGY: no R mady. n o H michael. G ASTROENTEROLOGY: no N ausea. n o V omiting. n o D iarrhea.? U ROLOGY: no D ifficulty urinating. n o B lood in urine. * 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: H ypertension, Rapid heart beat ?SVT, Hyperlipidemia, Polio, COVID 19 Vaccination, 08/17 2020, Moderna. * Surgical History: A ppendectomy , Colostomy 03/2024. * Family History: F ather: 70 yrs, lung cancer. M other: 92 yrs, alzheimer's dementia.?3 brother(s) , 1 sister(s) . 4 daughter(s) . . * Social History: C URRENT TOBACCO USE: No . C affeine: yes, frequency: coffee, green tea. Home smoke detector use: yes. Alcohol: No. * Medications: T aking Acetaminophen 500 MG Capsule 1 capsule as needed Orally every 6 hrs , Taking Fluzone High-Dose 0.5 ML Suspension Prefilled Syringe as directed Intramuscular , Taking Multivitamin - Tablet 1 tablet Orally Once a day , Taking Estradiol 0.1 MG/GM [...] Subcutaneous every 6 months , Taking Nystatin 437703 UNIT/ML Suspension 5 mL Mouth/Throat Three times a day , Taking Pantoprazole Sodium 40 MG Tablet Delayed Release Take 1 tablet by mouth once daily , Taking Atorvastatin Calcium 10 MG Tablet 1 tablet Orally Once a day , Taking Eliquis 5 MG Tablet 1 tab(s) Orally Two times a day , Taking Rolling Walker with seat - - 1 as needed , Taking Remeron 15 MG Tablet 1 tablet at bedtime Orally Once a day , Taking NIFEdipine ER 90 MG Tablet Extended Release 24 Hour 1 tablet on an empty stomach Orally Once a day , Taking Carvedilol 12.5 MG Tablet 1 tablet with food Orally Twice a day , Not-Taking Furosemide 20 MG [...] N .K.D.A. Objective: * Vitals: W t: 115.2, Temp: 98.4, BP: 110/52, HR: 80, O2 Sat: 98% on RA, Nurse: NOAM, Ht: 58, BMI:24.07. * Examination: G eneral Examination: General Appearance: N AD. H EENT: u nremarkable.?Oral cavity: n o lesions, mucosa moist and WNL, no erythema. N anthony: s upple, no lymphadenopathy. C hest: n ormal shape and expansion. H eart: R SR. L ungs: c lear to auscultation. A bdomen: b owel sounds present , soft and nontender, colostomy in place but there appears to be a hernia at the site. N eurologic Exam: I ntact, gait normal. S kin: n ormal, no rash. P eripheral pulses: n ormal (2+) bilaterally. E xtremities:?2+ leg edema bilaterally . Assessment: * Assessment: 1. L ower extremity edema - R60.0 (Primary) 2 . C olostomy complication - K94.00 3 . A cute cough - R05.1 Plan: * Treatment: Value Reference Range w bc 9.7 3.5 - 10 * l ym 18.9 15 - 50 * m id 5.3 2 - 15 * g ran 75.8 35 - 80 * r bc 3.73 3.5 - 5.5 * h gb 11.4 11.5 - 16.5 * h ct 34.4 35 - 55 * m cv 92.1 75 - 100 * m ch 30.6 25 - 35 * m chc 33.2 31 - 38 * p lat 285 100 - 400 * Yesica Holbrook 07/31/2024 12: 01:05 PM > results reviewed w/ pt in office Notes: I spoke with cardiology and they want the patient to stop the nifedipine and see if this helps the swelling. She will monitor her HR and BP and call me next week with readings.??2.?Colostomy complication? Notes: She will need an appt with Dr. Hurtado.??3.?Acute cough? Notes: She has cough pills at home. CBC is normal.?? * Procedure Codes: G 2211 Complex e/[place], [address] CAPILLARY BLOOD DRAW, 72241 CBC WITH AUTO DIFF * Follow Up: v ia phone * Images: Billing Information: * Visit Code: 37069 Office Visit, Est Pt., Level 4. * Procedure Codes: G2211 Complex e/[place]. [address] CAPILLARY BLOOD DRAW. 32250 CBC WITH AUTO DIFF. * Electronic signature of MARVA Elizalde on 02/03/2025 at 09:13 AM EST Sign off status: Pending * Provider: MARVA Dang Date: 0 07/31/2024 Generated for Bassem plascencia/Makeda/Minesmitting on: 04/05/2024 09:13 AM EST History and Physical Notes * HPI (History of Present Illness) Category Sub-Category Detail Notes Category Not es Leg Leg edema Pt presents toda y with c/o bilateral swelling in her legs. Pt sts that they get huge at times. Pt denies any pain. Pt sts that she has not noticed any decrease urine output Examination Category Sub-Category Detail Notes Category Not es General Examination HEENT: unremarkable Heart: RSR Lungs: clear to auscultatio n Abdomen: bowel sounds present , soft and nontender, colostomy in place but there appears to be a hernia at the site Extremities: 2+ leg edema bilater ally General Appearance: NAD Skin: normal, no rash Neurologic Exam: Intact, gait normal Neck: supple, no lymphaden opathy Oral cavity: no lesions, mucosa m oist and WNL, no erythema Peripheral pulses: normal (2+) bilatera lly Chest: normal shape and exp ansion
--- OUTSIDE RECORDS SUMMARY | 2024-10-23 11:30 | XMS_ITS ---
[facility] Address [address] [place] [id number] Care Team Providers Care Bakery Demonstrator Name Role Phone Chas Barrera Primary Care Provider Charlene Benoit Unavailable [phone] Allergies No Known Allergies REASON FOR VISIT pre op physical Medications Medication SIG (Take, Route, Frequency, Duration) Notes Start Date End Date Status Carvedilol 12.5 MG 1 tablet with food O rally Twice a day; Duration: 90 days Active Eliquis 5 MG 1 tablet Orally twic e a day; Duration: 90 days Active Atorvastatin Calcium 10 MG 1 tablet Oral ly Once a day; Duration: 90 days Active Verapamil HCl ER 120 MG Take 1 tablet by mouth twice daily; Duration: 90 Active Pantoprazole Sodium 40 MG Take 1 tablet by mouth once daily; Duration: 90 Active Nystatin 976321 UNIT/ML 5 mL Mouth/Throa t Three times a day; Duration: 7 days 03/04/2024 Active Prolia 60 MG/ML as directed Subcutan eous every 6 months 01/17/2023 Active Mirtazapine 15 MG TAKE 1 TABLET BY GRACE TH ONCE DAILY AT BEDTIME; Duration: 30 Active Rolling Walker with seat - 1 as needed 06/19/2024 Active Albuterol Sulfate HFA 108 (90 Base) MCG/ACT 1 puff as needed Inhalation every 4 hrs, prn 02/29/2024 Active Albuterol Sulfate HFA 108 (90 Base) MCG/ACT 1 puff as needed Inhalation every 4 hrs, prn 12/14/2023 Active Aspirin 81 81 MG 1 tablet Orally Once a day; Duration: 30 day(s) Active Estradiol 0.1 MG/GM as directed Vaginal Active Multivitamin - 1 tablet Orally Once a day; Duration: 30 day(s) Active Fluzone High-Dose 0.5 ML as directed Intramuscular Active Acetaminophen 500 MG 1 capsule as needed Orally every 6 hrs Active Vital Signs Weight 114.8 lbs 10/23/2024 Blood pressure systolic 130 mm Hg 10/24/19 25 Blood pressure diastolic 70 mm Hg 025 Heart Rate 81 /min 10/23/2024 Height 58 in 10/23/2024 BMI 23.99 kg/m2 10/23/2024 Encounters Encounter Location Date Provider Diagnosis [facility] [address] [place], [place] [id number] 10/23/2024 Charlene Benoit Preop general physic al exam Z01.818 and BMI 23.0-23.9, adult Z68.23 Assessments Encounter Date Diagnosis (ICD Code) Assessment Notes Treatment Notes Treatment Clinical Notes Section Notes 10/23/2024 Preop general physical exam (ICD-10 - Z01.818) 10/23/2024 BMI 23.0-23.9, adult (ICD-10 - Z68.23) Plan Of Treatment Next Appt Details Follow Up: prn, Reason: Progress Notes * QUEENIE ROSEDOB:1945 (79 yo F)Acc No.[id number]:10/23/2024 Physical Patient: QUEENIE CANNON Provider: MARVA Dang :1945 A ge:79 Y S ex:Female Date:10/23/2024 Address:[address] [place] [address], [place], [id number] Pcp:Chas Barrera Subjective: * Chief Complaints: * 1 . Pre op physical. * HPI: A dult Pre-Op physical: Form to be signed is in Dr. Barrera's folder at the nurses station. Procedure: R obotic Nii Reversal. D ate of Procedure: . N jaki of Surgeon: Shira Arzola. A nticoagulant E liquis. * ROS: D ERMATOLOGY: no R mady. [...] Subcutaneous every 6 months , Taking Nystatin 686571 UNIT/ML Suspension 5 mL Mouth/Throat Three times a day , Taking Pantoprazole Sodium 40 MG Tablet Delayed Release Take 1 tablet by mouth once daily , Taking Rolling Walker with seat - - 1 as needed , Taking Mirtazapine 15 MG Tablet TAKE 1 TABLET BY MOUTH ONCE DAILY AT BEDTIME , Taking Verapamil HCl ER 120 MG Tablet Extended Release Take 1 tablet by mouth twice daily , Taking Atorvastatin Calcium 10 MG Tablet 1 tablet Orally Once a day , Taking Eliquis 5 MG Tablet 1 tablet Orally twice a day , Taking Carvedilol 12.5 MG Tablet 1 tablet with food Orally Twice a day , Discontinued Furosemide 20 MG Tablet 1 tablet Orally Once a day , Discontinued Losartan Potassium 50 MG Tablet 1 tablet Orally Once a day , Discontinued Magnesium 400 MG Tablet as directed Orally , Discontinued Simvastatin 40 MG Tablet TAKE 1 TABLET BY MOUTH ONCE DAILY AT BEDTIME , Discontinued Ferrous Sulfate 325 (65 Fe) MG Tablet Delayed Release 1 tablet Orally once daily , Discontinued Digoxin 125 MCG Tablet 1 tablet Orally Once a day , Medication List reviewed and reconciled with the patient * Allergies: N .K.D.A. Objective: * Vitals: W t: 114.8, Temp: 97.8, BP: 130/70, HR: 81, Nurse: lex, Ht: 58, BMI:23.99. * Examination: G eneral Examination: General Appearance: N AD. H EENT: u nremarkable.?Oral cavity: n o lesions, mucosa moist and WNL, no erythema. N nathony: s upple, no lymphadenopathy. C hest: n ormal shape and expansion. H eart: R SR. L ungs: c lear to auscultation. A bdomen: b owel sounds present, soft, nontender, colostomy in place.?Neurologic Exam: I ntact, gait normal. S kin: n ormal, no rash. P eripheral pulses: n ormal (2+) bilaterally. E xtremities: n o leg edema. Assessment: * Assessment: 1. P reop general physical exam - Z01.818 (Primary) 2 . B NH 23.0-23.9, adult - Z68.23 Plan: * Treatment: * Procedure Codes: G 2211 Complex e/m visit add on, 1036F TOBACCO NON-USER, G8420 BMI<30 AND >=22 CALC & DOCU, G8783 BP SCR PRFRM RCMDD DEFIND SCR INTVL, G8752 MOST RECENT SYSTOLIC BP < 140MM HG, G8754 MOST RECENT DIASTOLIC BP < 90MM HG * Follow Up: p rn * Images: Billing Information: * Visit Code: 29062 Office Visit, Est Pt., Level 4. * Procedure Codes: G2211 Complex e/m visit add on. 1036F TOBACCO NON-USER. G8420 BMI<30 AND >=22 CALC & DOCU. G8783 BP SCR PRFRM RCMDD DEFIND SCR INTVL. G8752 MOST RECENT SYSTOLIC BP < 140MM HG. G8754 MOST RECENT DIASTOLIC BP < 90MM HG. * Electronic signature of MARVA Elizalde on 02/03/2025 at 09:12 AM EST Sign off status: Pending * Provider: MARVA Dang Date: 0 10/23/2024 Generated for Bassem plascencia/Makeda/Huma on: 1 04/05/2024 09:12 AM EST History and Physical Notes * HPI (History of Present Illness) Category Sub-Category Detail Notes Category Not es Adult Pre-Op physical Procedure: Robotic Nii Re versal Date of Procedure: 11/07/24 Name of Surgeon: Dr. Arzola Anticoagulant Eliquis Examination Category Sub-Category Detail Notes Category Not es General Examination HEENT: unremarkable Heart: RSR Lungs: clear to auscultatio n Abdomen: bowel sounds present , soft, nontender, colostomy in place Extremities: no leg edema General Appearance: NAD Skin: normal, no rash Neurologic Exam: Intact, gait normal Neck: supple, no lymphaden opathy Oral cavity: no lesions, mucosa m oist and WNL, no erythema Peripheral pulses: normal (2+) bilatera lly Chest: normal shape and exp ansion
--- OUTSIDE RECORDS SUMMARY | 2024-10-31 03:45 | XMS_ITS ---
Author Organization [facility] Address [address] [facility] [address] [place] [id number] Care Team Providers Care Datastage Developer Name Role Phone Chas Barrera Primary Care Provider [phone] Charlene Benoit Unavailable [phone] Results Component Value Reference Range Notes CBC Venipuncture (in house) Reviewed date:11/01/2024 05:11:29 PM Interpretation:Normal Performing Lab: Notes/Report: Normal wbc 6.3 3.5 - 10 lymph 24.6 15 - 50 mid 6.6 2 - 15 gran 68.8 35 - 80 rbc 3.42 3.5 - 5.5 hgb 11.1 11.5 - 16.5 hct 32.7 35 - 55 mcv 95.4 75 - 100 mch 32.3 25 - 35 mchc 33.9 31 - 38 platlet 368 100 - 400 P-Comprehensive Metabolic Pa cruz (CMP) Reviewed date:11/01/2024 05:11:28 PM Interpretation:bun 27, Cr 1.25, gfr 44 Performing Lab: Notes/Report: Test performed by [employer] [address] [place] [address] , [address], [place] [address] Mitchel Dior MD, Director Public Policy CLIA: [id number] Sodium 141 135-145 mmol/L Potassium 4.3 3.5-5.3 mmol/L Chloride 104 97-108 mmol/L CO2 24 20-32 mmol/L Glucose 86 65-99 mg/dL BUN 27 8-23 mg/dL Creatinine 1.25 0.50-1.00 mg/dL Calcium 9.8 8.6-10.4 mg/dL eGFR by Creatinine 44 >59 mL/min/1.73m2 Protein 6.2 6.0-8.3 g/dL Albumin 3.9 3.5-5.3 g/dL Alkaline Phosphatase 59 35-121 IU/L ALT (SGPT) 20 <5-47 IU/L AST (SGOT) 17 <5-40 IU/L Bilirubin, Total 0.6 <0.2-1.2 mg/dL A/G Ratio 1.7 1.1-2.5 P-Ferritin Reviewed date:11/01/2024 05:11:28 PM Interpretation:Normal Performing Lab: Notes/Report: Test performed by [email or web address] [address] [place] [address] [place] [address] Mitchel Dior MD, Director Public Policy CLIA: [id number] Ferritin 75.4 13.0-301.0 ng/mL P-Iron Reviewed date:11/01/2024 05:11:29 PM Interpretation:Normal Performing Lab: Notes/Report: Test performed by [email or web address] [address] [place] [address] Dr. [address] , [place] [id number] Mitchel Dior MD, Director Public Policy CLIA: [id number] Iron 44 37-145 ug/dL REASON FOR VISIT Labs Medications Medication SIG (Take, Route, Frequency, Duration) Notes Start Date End Date Status Albuterol Sulfate HFA 108 (90 Base) MCG/ACT 1 puff as needed Inhalation every 4 hrs, prn 02/29/2024 Active Albuterol Sulfate HFA 108 (90 Base) MCG/ACT 1 puff as needed Inhalation every 4 hrs, prn 12/14/2023 Active Nystatin 362611 UNIT/ML 5 mL Mouth/Throa t Three times a day; Duration: 7 days 03/04/2024 Active Prolia 60 MG/ML as directed Subcutan eous every 6 months 01/17/2023 Active Aspirin 81 81 MG 1 tablet Orally Once a day; Duration: 30 day(s) Active Acetaminophen 500 MG 1 capsule as needed Orally every 6 hrs Active Multivitamin - 1 tablet Orally Once a day; Duration: 30 day(s) Active Fluzone High-Dose 0.5 ML as directed Intramuscular Active Carvedilol 12.5 MG Take 1 tablet by twice daily with food; Duration: 90 Active Estradiol 0.1 MG/GM as directed Vaginal Active Mirtazapine 15 MG TAKE 1 TABLET BY GRACE TH ONCE DAILY AT BEDTIME; Duration: 30 Active Rolling Walker with seat - 1 as needed 06/19/2024 Active Atorvastatin Calcium 10 MG 1 tablet Oral ly Once a day; Duration: 90 days Active Verapamil HCl ER 120 MG Take 1 tablet by mouth twice daily; Duration: 90 Active Eliquis 5 MG 1 tablet Orally twic e a day; Duration: 90 days Active Pantoprazole Sodium 40 MG Take 1 tablet by mouth once daily; Duration: 90 Active Encounters Encounter Location Date Provider Diagnosis [facility] [address] [place], [place] [id number] 10/31/2024 Charlene Benoit Iron deficiency anem ia D50.9 ; Essential (primary) hypertension I10 and Pre-op evaluation Z01.818 Assessments Encounter Date Diagnosis (ICD Code) Assessment Notes Treatment Notes Treatment Clinical Notes Section Notes 10/31/2024 Iron deficiency anemia (ICD-10 - D50.9) 10/31/2024 Essential (primary) hypertension (ICD-10 - I10) 10/31/2024 Pre-op evaluation (ICD-10 - Z01.818) Plan Of Treatment No Information Progress Notes * QUEENIE ROSEDOB:1945 (79 yo F)Acc No.[id number]:10/31/2024 Patient: QUEENIE CANNON Provider: MARVA Dang :1945 A ge:79 Y S ex:Female Date:10/31/2024 Address:[address] [place] [address], [place], [id number] Pcp:Chas Barrera Subjective: * Chief Complaints: * 1 . Labs. * 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: * Medications: T aking Acetaminophen 500 MG [...] Subcutaneous every 6 months , Taking Nystatin 078179 UNIT/ML Suspension 5 mL Mouth/Throat Three times [...] day , Taking Carvedilol 12.5 MG Tablet Take 1 tablet by mouth twice daily with food , Medication List reviewed and reconciled with the patient Objective: * Vitals: Assessment: * Assessment: 1. I efrain deficiency anemia - D50.9 2 . E ssential (primary) hypertension - I10 3 . P re-op evaluation - Z01.818 Plan: * Treatment: Value Reference Range F erritin 75.4 13.0-301.0 - ng/mL * Charlene Benoit 11/01/2024 0 5:11:06 PM EDT >discussed with patient's daughter ?LAB: P-Iron (Collection Date & Time - 10/31/2024 07:52 AM)?Normal* Value Reference Range I efrain 44 37-145 - ug/dL * Charlene Benoit 11/01/2024 0 5:11:06 PM EDT >discussed with patient's daughter ?LAB: CBC Venipuncture (in house) (Collection Date & Time - 10/31/2024)? Normal* Value Reference Range w bc 6.3 3.5 - 10 * l ymph 24.6 15 - 50 * m id 6.6 2 - 15 * g ran 68.8 35 - 80 * r bc 3.42 3.5 - 5.5 * h gb 11.1 11.5 - 16.5 * h ct 32.7 35 - 55 * m cv 95.4 75 - 100 * m ch 32.3 25 - 35 * m chc 33.9 31 - 38 * p latlet 368 100 - 400 * Samira Chacon 10/31/2024 02:1 4:55 PM EDT > Charlene Benoit 11/01/2024 05:11:06 PM EDT >discussed with patient's daughter 2.?Essential (primary) hypertension?LAB: P-Comprehensive Metabolic Panel (CMP) (Collection Date & Time - 10/31/2024 07:52 AM)?bun 27, Cr 1.25, gfr 44* Value Reference Range A /G Ratio 1.7 1.1-2.5 - * A lbumin 3.9 3.5-5.3 - g/dL * A lkaline Phosphatase 59 35-121 - IU/L * A LT (SGPT) 20 <5-47 - IU/L * A ST (SGOT) 17 <5-40 - IU/L * B ilirubin, Total 0.6 <0.2-1.2 - mg/dL * B UN 27 H 8-23 - mg/dL * C alcium 9.8 8.6-10.4 - mg/dL * C hloride 104 97-108 - mmol/L * C O2 24 20-32 - mmol/L * C reatinine 1.25 H 0.50-1.00 - mg/dL * G lucose 86 65-99 - mg/dL * P otassium 4.3 3.5-5.3 - mmol/L * S odium 141 135-145 - mmol/L * P rotein 6.2 6.0-8.3 - g/dL * e GFR by Creatinine 44 L >59 - mL/min/1.73m2 * DanielceciliaCalmagali Segura 11/01/2024 0 5:11:06 PM EDT >discussed with patient's daughter 3.?Pre-op evaluation?LAB: P-Comprehensive Metabolic Panel (CMP) (Collection Date & Time - 10/31/2024 07:52 AM)?bun 27, Cr 1.25, gfr 44* Value Reference Range A /G Ratio 1.7 1.1-2.5 - * A lbumin 3.9 3.5-5.3 - g/dL * A lkaline Phosphatase 59 35-121 - IU/L * A LT (SGPT) 20 <5-47 - IU/L * A ST (SGOT) 17 <5-40 - IU/L * B ilirubin, Total 0.6 <0.2-1.2 - mg/dL * B UN 27 H 8-23 - mg/dL * C alcium 9.8 8.6-10.4 - mg/dL * C hloride 104 97-108 - mmol/L * C O2 24 20-32 - mmol/L * C reatinine 1.25 H 0.50-1.00 - mg/dL * G lucose 86 65-99 - mg/dL * P otassium 4.3 3.5-5.3 - mmol/L * S odium 141 135-145 - mmol/L * P rotein 6.2 6.0-8.3 - g/dL * e GFR by Creatinine 44 L >59 - mL/min/1.73m2 * Charlene Benoit 11/01/2024 0 5:11:06 PM EDT >discussed with patient's daughter ?LAB: P-Ferritin (Collection Date & Time - 10/31/2024 07:52 AM)?Normal* Value Reference Range F erritin 75.4 13.0-301.0 - ng/mL * Charlene Benoit 11/01/2024 0 5:11:06 PM EDT >discussed with patient's daughter ?LAB: P-Iron (Collection Date & Time - 10/31/2024 07:52 AM)?Normal* Value Reference Range I efrain 44 37-145 - ug/dL * Charlene Benoit 11/01/2024 0 5:11:06 PM EDT >discussed with patient's daughter * Procedure Codes: 8 5025 CBC WITH AUTO DIFF, 18213 VENIPUNCT, ROUTINE* * Images: Billing Information: * Visit Code: * Procedure Codes: 17062 CBC WITH AUTO DIFF. 23601 VENIPUNCT, ROUTINE*. * Electronic signature of MARVA Elizalde on 02/03/2025 at 09:13 AM EST Sign off status: Pending * Provider: MARVA Dnag Date: 0 10/31/2024 Generated for Printi ng/Faxing/eTransmitting on: 1 04/05/2024 09:13 AM EST
--- OUTSIDE RECORDS SUMMARY | 2024-11-27 05:45 | XMS_ITS ---
[facility] Address [address] [facility] [address] [place] [id number] Care Team Providers Care Dust Puller Name Role Phone Chas Barrera Primary Care Provider DanielCharlene brooks Unavailable [phone] Allergies No Known Allergies Results Component Value Reference Range Notes Influenza Screen (in house) Reviewed date:11/27/2024 01:30:54 PM Interpretation: Performing Lab: Notes/Report: results neg CBC Fingerstick (in house) Reviewed date:11/27/2024 01:30:54 PM Interpretation: Performing Lab: Notes/Report: wbc 7.7 3.5 - 10 lym 33.7% 15 - 50 mid 7.2% 2 - 15 gran 59.1% 35 - 80 rbc 3.45 3.5 - 5.5 hgb 11.4 11.5 - 16.5 hct 32.7 35 - 55 mcv 94.5 75 - 100 mch 33.0 25 - 35 mchc 34.9 31 - 38 plat 325 100 - 400 Covid test (in house) Reviewed date:11/27/2024 01:30:54 PM Interpretation: Performing Lab: Notes/Report: Result: neg REASON FOR VISIT cold Medications Medication SIG (Take, Route, Frequency, Duration) Notes Start Date End Date Status Carvedilol 12.5 MG Take 1 tablet by twice daily with food; Duration: 90 Active Atorvastatin Calcium 10 MG 1 tablet Oral ly Once a day; Duration: 90 days Active Aspirin 81 81 MG 1 tablet Orally Once a day; Duration: 30 day(s) Active Eliquis 5 MG 1 tablet Orally twic e a day; Duration: 90 days Active Multivitamin - 1 tablet Orally Once a day; Duration: 30 day(s) Active Flaxseed Oil 1200 MG as directed Orally Active Benzonatate 200 MG 1 capsule as needed Orally Three times a day 11/27/2024 Active Fish Oil 1000 MG 1 capsule Orally Thr ee times a day Active Vitamin C 1000 MG 1 tablet Orally Once a day Active Magnesium 200 MG 2 tablets with a roni l Orally Once a day Active Vital Signs Weight 112.8 lbs 11/27/2024 Blood pressure systolic 132 mm Hg 11/28/19 25 Blood pressure diastolic 70 mm Hg 025 Heart Rate 67 /min 11/27/2024 Height 58 in 11/27/2024 BMI 23.57 kg/m2 11/27/2024 Encounters Encounter Location Date Provider Diagnosis [facility] [address] [place] [phone] 11/27/2024 Charlene Benoit Acute URI J06.9 and BMI 23.0-23.9, adult Z68.23 Assessments Encounter Date Diagnosis (ICD Code) Assessment Notes Treatment Notes Treatment Clinical Notes Section Notes 11/27/2024 Acute URI (ICD-10 - J06.9) 11/27/2024 BMI 23.0-23.9, adult (ICD-10 - Z68.23) Plan Of Treatment Medication Medication Name Sig Start Date Stop Date Notes Benzonatate 200 MG 1 capsule as needed Orally Three times a day 11/27/2024 Next Appt Details Follow Up: January, Reason: Progress Notes * QUEENIE ROSEDOB:1945 (79 yo F)Acc No.[id number]:11/27/2024 Progress Notes Patient: QUEENIE [place] Provider: MARVA Dang :1945 A ge:79 Y S ex:Female Date:11/27/2024 Address:[address] [place] [address], [place] Pcp:Chas Barrera Subjective: * Chief Complaints: * 1 . Cold. * HPI: E NT/respiratory: Pt states symptoms started last week and are worsening. 79 year old female presents with c/o cough g reenish yellow sputum production. c/o nasal congestion a ll the time. Denies : sore throat. D enies : Fever. D enies : ear pain. D enies : Chest Pain. D enies : Short of Breath. D enies : headache. D enies : chest congestion. D enies : dizziness. D enies : body aches. * ROS: D ERMATOLOGY: no R mady. n o H michael. G ASTROENTEROLOGY: no N ausea. n o V omiting. n o D iarrhea.? U ROLOGY: no D ifficulty urinating. n o B lood in urine. * 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: H ypertension, Rapid heart beat ?SVT, Hyperlipidemia, Polio, COVID 19 Vaccination, 08/17 2020, Moderna. * Surgical History: A ppendectomy , Colostomy 03/2024, colostomy reversal 11/07/2024. * Family History: F ather: 70 yrs, lung cancer. M other: 92 yrs, alzheimer's dementia.?3 brother(s) , 1 sister(s) . 4 daughter(s) . . * Social History: C URRENT TOBACCO USE: No . C affeine: yes, frequency: coffee, green tea. Home smoke detector use: yes. Alcohol: No. * Medications: T aking Fish Oil 1000 MG Capsule 1 capsule Orally Three times a day , Taking Magnesium 200 MG Tablet 2 tablets with a meal Orally Once a day , Taking Vitamin C 1000 MG Tablet 1 tablet Orally Once a day , Taking Flaxseed Oil 1200 MG Capsule as directed Orally , Taking Multivitamin - Tablet 1 tablet Orally Once a day , Taking Aspirin 81 81 MG Tablet Delayed Release 1 tablet Orally Once a day , Taking Atorvastatin Calcium 10 MG Tablet 1 tablet Orally Once a day , Taking Eliquis 5 MG Tablet 1 tablet Orally twice a day , Taking Carvedilol 12.5 MG Tablet Take 1 tablet by mouth twice daily with food , Discontinued Acetaminophen 500 MG Capsule 1 capsule as needed Orally every 6 hrs , Discontinued Fluzone High-Dose 0.5 ML Suspension Prefilled Syringe as directed Intramuscular , Discontinued Estradiol 0.1 MG/GM Cream as directed Vaginal , Discontinued Albuterol Sulfate HFA 108 (90 Base) MCG/ACT Aerosol Solution 1 puff as needed Inhalation every 4 hrs, prn , Discontinued Albuterol Sulfate HFA 108 (90 Base) MCG/ACT Aerosol Solution 1 puff as needed Inhalation every 4 hrs, prn , Discontinued Prolia 60 MG/ML Solution Prefilled Syringe as directed Subcutaneous every 6 months , Discontinued Nystatin 751651 UNIT/ML Suspension 5 mL Mouth/Throat Three times a day , Discontinued Pantoprazole Sodium 40 MG Tablet Delayed Release Take 1 tablet by mouth once daily , Discontinued Rolling Walker with seat - - 1 as needed , Discontinued Mirtazapine 15 MG Tablet TAKE 1 TABLET BY MOUTH ONCE DAILY AT BEDTIME , Discontinued Verapamil HCl ER 120 MG Tablet Extended Release Take 1 tablet by mouth twice daily , Medication List reviewed and reconciled with the patient * Allergies: N .K.D.A. Objective: * Vitals: W t: 112.8, Temp: 98.7, BP: 132/70, HR: 67, Nurse: pe, Ht: 58, BMI:23.57. * Examination: E NT/Respiratory: General Appearance: N AD. E ars: a uditory canals normal bilaterally, TM's WNL. N ose : t urbinates red, congested. S inuses : n on tender bilaterally. O ral cavity : e rythema without exudate on pharynx, PND present. N anthony : n o cervical lymphadenopathy. H eart : R RR, normal S1 S2, no murmurs. L ungs:?clear to auscultation bilaterally. Assessment: * Assessment: 1. A cute URI - J06.9 (Primary) 2 . B UT 23.0-23.9, adult - Z68.23 ? Plan: * Treatment: Value Reference Range r esults neg * Genet Sibley 11/27/2024 1 1:03:43 AM EDT > Provider reviewed results while patient in office. ?LAB: CBC Fingerstick (in house) (Collection Date & Time - 11/27/2024)* Value Reference Range w bc 7.7 3.5 - 10 * l ym 33.7% 15 - 50 * m id 7.2% 2 - 15 * g ran 59.1% 35 - 80 * r bc 3.45 3.5 - 5.5 * h gb 11.4 11.5 - 16.5 * h ct 32.7 35 - 55 * m cv 94.5 75 - 100 * m ch 33.0 25 - 35 * m chc 34.9 31 - 38 * p lat 325 100 - 400 * Genet Sibley 11/27/2024 1 1:02:10 AM EDT > Provider reviewed results while patient in office. ?LAB: Covid test (in house) (Collection Date & Time - 11/27/2024)* Value Reference Range R esult: neg * Genet Sibley 11/27/2024 1 1:03:15 AM EDT > Provider reviewed results while patient in office. * Procedure Codes: G 2211 Complex e/[place], [address] CAPILLARY BLOOD DRAW, 00958 CBC WITH AUTO DIFF, 52761 COVID TEST IN HOUSE, Modifiers: QW , [address] Flu Test- Nasal Swab, Modifiers: QW , 1036F TOBACCO NON-USER, G8783 BP SCR PRFRM RCMDD DEFIND SCR INTVL, 3075F SYST BP GE 130 - 139MM HG, 3078F DIAST BP < 80 MM HG * Follow Up: N ovember fasting * Images: Billing Information: * Visit Code: 05712 Office Visit, Est Pt., Level 3. * Procedure Codes: G2211 Complex e/[place]. [address] CAPILLARY BLOOD DRAW. 90426 CBC WITH AUTO DIFF. 12282 COVID TEST IN HOUSE. Modifiers: QW 10690 Flu Test- Nasal Swab. Modifiers: QW 1036F TOBACCO NON-USER. G8783 BP SCR PRFRM RCMDD DEFIND SCR INTVL. 3075F SYST BP GE 130 - 139MM HG. 3078F DIAST BP < 80 MM HG. * Electronic signature of MARVA Elizalde on 02/03/2025 at 09:13 AM EST Sign off status: Pending * Provider: MARVA Dang Date: 0 11/27/2024 Generated for Milanai ng/Famere/eTransmitting on: 1 04/05/2024 09:13 AM EST History and Physical Notes * HPI (History of Present Illness) Category Sub-Category Detail Notes Category Not es ENT/respiratory sore throat ear pain Short of Breath Chest Pain cough greenish yellow sput um production Fever headache chest congestion nasal congestion all the time dizziness body aches Examination Category Sub-Category Detail Notes Category Not es ENT/Respiratory Oral cavity : erythema without exudate on pharynx, PND present Sinuses : non tender bilateral ly Ears: auditory canals norm al bilaterally, TM's WNL Neck : no cervical lymphade nopathy Heart : RRR, normal S1 S2, n o murmurs Lungs: clear to auscultatio n bilaterally General Appearance: NAD Nose : turbinates red, john ested
--- OUTSIDE RECORDS SUMMARY | 2024-12-05 08:15 | XMS_ITS ---
Author Organization [facility] Address [address] [facility] [address] [facility] [address] [place] [id number] Care Team Providers Care Licensed Veterinary Technician Name Role Phone Chas Barrera Primary Care Provider [phone] Charlene Benoit Unavailable [phone] Allergies No Known Allergies Results Component Value Reference Range Notes Urinalysis - Inhouse Reviewed date:12/13/2024 03:44:07 PM Interpretation:not performed Performing Lab: Notes/Report: not performed Influenza Screen (in house) Reviewed date:12/06/2024 05:54:12 PM Interpretation: Performing Lab: Notes/Report: results neg CBC Venipuncture (in house) Reviewed date:12/06/2024 05:54:12 PM Interpretation: Performing Lab: Notes/Report: wbc 18.0 3.5 - 10 lymph 5.0% 15 - 50 mid 1.8% 2 - 15 gran 93.2% 35 - 80 rbc 3.02 3.5 - 5.5 hgb 9.9 11.5 - 16.5 hct 28.4 35 - 55 mcv 94.1 75 - 100 mch 32.9 25 - 35 mchc 35.0 31 - 38 platlet 194 100 - 400 P-Amylase Reviewed date:12/06/2024 05:54:12 PM Interpretation: Performing Lab: Notes/Report: Test performed by [facility] [address] [place] [address] , [address], [place] [address] Mitchel Dior MD, Polysomnography Technologist CLIA: [id number] Amylase 42 28-100 U/L P-Comprehensive Metabolic Pa cruz (CMP) Reviewed date:12/06/2024 05:54:12 PM Interpretation: Performing Lab: Notes/Report: Test performed by [facility] [address] [place] [address] , [address], [place] [address] Mitchel Dior MD, Polysomnography Technologist CLIA: [id number] Sodium 127 135-145 mmol/L Potassium 3.6 3.5-5.3 mmol/L Chloride 88 97-108 mmol/L CO2 21 20-32 mmol/L Glucose 192 65-99 mg/dL BUN 46 8-23 mg/dL Creatinine 3.11 0.50-1.00 mg/dL Calcium 8.8 8.6-10.4 mg/dL eGFR by Creatinine 15 >59 mL/min/1.73m2 Protein 5.4 6.0-8.3 g/dL Albumin 3.2 3.5-5.3 g/dL Alkaline Phosphatase 112 35-121 IU/L ALT (SGPT) 27 <5-47 IU/L AST (SGOT) 35 <5-40 IU/L Bilirubin, Total 1.3 <0.2-1.2 mg/dL A/G Ratio 1.5 1.1-2.5 P-Lipase Reviewed date:12/06/2024 05:54:12 PM Interpretation: Performing Lab: Notes/Report: Test performed by [facility] [address] [place] [address] , [address], [place] [address] Mitchel Dior MD, Polysomnography Technologist CLIA: [id number] Lipase 14.0 13.0-60.0 U/L Covid test (in house) Reviewed date:12/06/2024 05:54:12 PM Interpretation: Performing Lab: Notes/Report: Result: neg REASON FOR VISIT not sleeping well. no energy, due for DEXA after 12/28 Medications Medication SIG (Take, Route, Frequency, Duration) Notes Start Date End Date Status Benzonatate 200 MG 1 capsule as needed Orally Three times a day 11/27/2024 Active Carvedilol 12.5 MG Take 1 tablet by twice daily with food; Duration: 90 Active Aspirin 81 81 MG 1 tablet Orally Once a day; Duration: 30 day(s) Active Eliquis 5 MG 1 tablet Orally twic e a day; Duration: 90 days Active Atorvastatin Calcium 10 MG 1 tablet Oral ly Once a day; Duration: 90 days Active Vitamin C 1000 MG 1 tablet Orally Once a day Active Magnesium 200 MG 2 tablets with a roni l Orally Once a day Active Multivitamin - 1 tablet Orally Once a day; Duration: 30 day(s) Active Flaxseed Oil 1200 MG as directed Orally Active Fish Oil 1000 MG 1 capsule Orally Thr ee times a day Active Vital Signs Weight 118.4 lbs 12/05/2024 Blood pressure systolic 118 mm Hg 12/06/19 Blood pressure diastolic 58 mm Hg 025 Heart Rate 73 /min 12/05/2024 Height 58 in 12/05/2024 BMI 24.74 kg/m2 12/05/2024 Encounters Encounter Location Date Provider Diagnosis [facility] [address] [place] [id number] 12/05/2024 Charlene Benoit Dysuria R30.0 ; Acut e URI J06.9 ; Other fatigue R53.83 and Acute abdominal pain R10.9 Assessments Encounter Date Diagnosis (ICD Code) Assessment Notes Treatment Notes Treatment Clinical Notes Section Notes 12/05/2024 Dysuria (ICD-10 - R30.0) 12/05/2024 Acute URI (ICD-10 - J06.9) 12/05/2024 Other fatigue (ICD-10 - R53.83) 12/05/2024 Acute abdominal pain (ICD-10 - R10.9) Will admit for further evaluation and treatment. Plan Of Treatment Treatment Notes Assessment Notes Acute abdominal pain Will admit for furt her evaluation and treatment. Next Appt Details Follow Up: after admission, Reason: Progress Notes * MILTON QUEENIEDOB:1945 (79 yo F)Acc No.[id number]:12/05/2024 Progress Notes Patient: QUEENIE CANNNO Provider: MARVA Dang :1945 A ge:79 Y S ex:Female Date:12/05/2024 Address:[address] [place] [address] KATTY, [place], [id number] Pcp:Chas Barrera Subjective: * Chief Complaints: * 1 . Not sleeping well. no energy. 2. due for DEXA after 12/28. * HPI: C onstitutional: 79 year old female presents with c/o Weakness P t states she has been feeling bad since 12/02. Pt states she is weak and has no energy. pt states she just wants to chill Pt states she vomited on 12/03 several times. . * ROS: D ERMATOLOGY: no R mady. [...] , Colostomy 03/2024, colostomy reversal 11/07/2024. * Hospitalization/Major Diagno stic Procedure: D enies Past Hospitalization. * Family History: F ather: 70 yrs, [...] by mouth twice daily with food , Taking Benzonatate 200 MG Capsule 1 capsule as needed Orally Three times a day , Medication List reviewed and reconciled with the patient * Allergies: N .K.D.A. Objective: * Vitals: W t: 118.4, Temp: 98.4, BP: 118/58, HR: 73, Nurse: BENJI, Ht: 58, BMI:24.74. * Examination: G eneral Examination: General Appearance: D oes not appear to feel well. H EENT: s clera and conjunctiva clear, PERRLA, TM's normal, translucent. O ral cavity: t ongue and mucosa dry. N anthony: s upple, no lymphadenopathy. C hest: n ormal shape and expansion. H eart: R SR. L ungs: c lear to auscultation. A bdomen: b owel sounds present, soft, diffusely ttp. N eurologic Exam: a lert and oriented. S kin: c olor good. P eripheral pulses: n ormal (2+) bilaterally. E xtremities: n o leg edema.? Assessment: * Assessment: 1. D ysuria - R30.0 (Primary) 2 . A cute URI - J06.9 3 .?Other fatigue - R53.83 4 . A cute abdominal pain - R10.9 Plan: * Treatment: 2. A cute URI L AB: Influenza Screen (in house) (Collection Date & Time - 12/05/2024) Value Reference Range r esults neg * Nikki Troncoso 12/05/2024 01: 52:41 PM EDT > Provider reviewed results while patient in office. Charlene Benoit 12/06/2024 05:53:54 PM EDT >Pt is inpatient ?LAB: CBC Venipuncture (in house) (Collection Date & Time - 12/05/2024)* Value Reference Range w bc 18.0 3.5 - 10 * l ymph 5.0% 15 - 50 * m id 1.8% 2 - 15 * g ran 93.2% 35 - 80 * r bc 3.02 3.5 - 5.5 * h gb 9.9 11.5 - 16.5 * h ct 28.4 35 - 55 * m cv 94.1 75 - 100 * m ch 32.9 25 - 35 * m chc 35.0 31 - 38 * p latlet 194 100 - 400 * Nikki Troncoso 12/05/2024 02: 14:47 PM EDT > Provider reviewed results while patient in office. Charlene Benoit 12/06/2024 05:53:54 PM EDT >Pt is inpatient ?LAB: Covid test (in house) (Collection Date & Time - 12/05/2024)* Value Reference Range R esult: neg * Nikki Troncoso 12/05/2024 01: 52:11 PM EDT > Provider reviewed results while patient in office. Charlene Benoit Colton 12/06/2024 05:53:54 PM EDT >Pt is inpatient 3.?Other fatigue?LAB: P-Comprehensive Metabolic Panel (CMP) (Collection Date & Time - 12/05/2024 12:52 PM)* Value Reference Range A /G Ratio 1.5 1.1-2.5 - * A lbumin 3.2 L 3.5-5.3 - g/dL * A lkaline Phosphatase 112 35-121 - IU/L * A LT (SGPT) 27 <5-47 - IU/L * A ST (SGOT) 35 <5-40 - IU/L * B ilirubin, Total 1.3 H <0.2-1.2 - mg/dL * B UN 46 H 8-23 - mg/dL * C alcium 8.8 8.6-10.4 - mg/dL * C hloride 88 L 97-108 - mmol/L * C O2 21 20-32 - mmol/L * C reatinine 3.11 H 0.50-1.00 - mg/dL * G lucose 192 H 65-99 - mg/dL * P otassium 3.6 3.5-5.3 - mmol/L * S odium 127 L 135-145 - mmol/L * P rotein 5.4 L 6.0-8.3 - g/dL * e GFR by Creatinine 15 L >59 - mL/min/1.73m2 * CyCalmagali Segura 12/05/2024 0 1:45:31 PM EDT >room 6, purple Charlene Benoit Colton 12/06/2024 05:53:54 PM EDT >Pt is inpatient 4.?Acute abdominal pain?LAB: P-Amylase (Collection Date & Time - 12/05/2024 12:52 PM)* Value Reference Range A mylase 42 28-100 - U/L * CyCalmagali Segura 12/05/2024 0 1:45:31 PM EDT >room 6, Charlene Hall 12/06/2024 05:53:54 PM EDT >Pt is inpatient ?LAB: P-Lipase (Collection Date & Time - 12/05/2024 12:52 PM)* Value Reference Range L ipase 14.0 13.0-60.0 - U/L * Charlene Benoit 12/05/2024 0 1:45:31 PM EDT >room 6, Charlene Hall 12/06/2024 05:53:54 PM EDT >Pt is inpatient Notes: Will admit for further evaluation and treatment.?? * Procedure Codes: 8 1002 Urinalysis, no micro, [address]7685 CBC WITH AUTO DIFF, 73287 VENIPUNCT, ROUTINE*, 95821 Flu Test- Nasal Swab, Modifiers: QW , 09630 COVID TEST IN HOUSE, Modifiers: QW * Follow Up: a fter admission * Images: Billing Information: * Visit Code: * Procedure Codes: 43295 Urinalysis, no micro. 20054 CBC WITH AUTO DIFF. 60136 VENIPUNCT, ROUTINE*. 82504 Flu Test- Nasal Swab. Modifiers: QW 18499 COVID TEST IN HOUSE. Modifiers: QW * Electronic signature of MARVA Elizalde on 02/03/2025 at 09:13 AM EST Sign off status: Pending * Provider: MARVA Dang Date: 0 12/05/2024 Generated for Milanai ng/Makeda/eTransmitting on: 1 04/05/2024 09:13 AM EST History and Physical Notes * HPI (History of Present Illness) Category Sub-Category Detail Notes Category Not es Constitutional Weakness Pt states she dunne s been feeling bad since 12/02. Pt states she is weak and has no energy. pt states she just wants to chill Pt states she vomited on 12/03 several times. Examination Category Sub-Category Detail Notes Category Not es General Examination HEENT: sclera and c onjunctiva clear, PERRLA, TM's normal, translucent Heart: RSR Lungs: clear to auscultatio n Abdomen: bowel sounds present , soft, diffusely ttp Extremities: no leg edema General Appearance: Does not appear to f eel well Skin: color good Neurologic Exam: alert and oriented Neck: supple, no lymphaden opathy Oral cavity: tongue and mucosa dr y Peripheral pulses: normal (2+) bilatera lly Chest: normal shape and exp ansion
--- OUTSIDE RECORDS SUMMARY | 2024-12-11 09:46 | XMS_ITS ---
Author Organization [facility] Address [facility] [facility] [address] [place] [id number] Care Team Providers Care Coupon Collection Clerk Name Role Phone Chas Barrera Primary Care Provider Charlene Benoit [phone] REASON FOR VISIT Message Medications Medication SIG (Take, Route, Fr equency, Duration) Notes Start Date End Date Status Melatonin 3 MG 1 tablet at bedtime as needed Orally Once a day; Duration: 30 days 12/11/2024 Ac tive Encounters Encounter Location Date Provider Diagnosis [facility] [address] [place] [id number] 12/11/2024 Charlene Benoit Diarrhea in adult patient R19.7 Assessments Encounter Date Diagnosis (ICD Code) Assessment Notes Treatment Notes Treatment Clinical Notes Section Notes 12/11/2024 Diarrhea in adult patient (ICD-10 - R19.7) Plan Of Treatment Medication Medication Name Sig Start Date Stop Date Notes Melatonin 3 MG 1 tablet at bedtime as needed Orally Once a day; Duration: 30 days 12/11/2024 Pending Test Test Name Order Date H-DIARRHEA PANEL 12/11/2024 Progress Notes * QUEENIE ROSEDOB:1945 (79 yo F)Acc No.[id number]:12/11/2024 Patient: QUEENIE CANNON :1945 A ge:79 Y S ex:Female Address:[address] [facility] [place], [address] * Refills Start Melatonin Tablet, 3 MG, Orally, 30 Tablet, 1 tablet at bedtime as needed, Once a day, 30 days, Refills=0 Subjective: * Chief Complaints: * M essage * 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: * Surgical History: * Hospitalization/Major Diagno stic Procedure: * Medications: Objective: * Vitals: * Physical Examination: Assessment: * Assessment: 1. D iarrhea in adult patient - R19.7 Plan: * Treatment: 2. O thers Start Melatonin Tablet, 3 MG, 1 tablet at bedtime as needed, Orally, Once a day, 30 days, 30 Tablet, Refills 0. * Procedure Codes: * true * Date: Generated for Bassem plascencia/Makeda/Julianneitting on: 04/05/2024 09:12 AM EST
--- OUTSIDE RECORDS SUMMARY | 2024-12-13 08:15 | XMS_ITS ---
[facility] Address [address] [facility] [address] [facility] [address] [place] [id number] Care Team Providers Care Fixing Carpenter Name Role Phone Chas Barrera Primary Care Provider [phone] Charlene Benoit Unavailable [phone] Allergies No Known Allergies Results Component Value Reference Range Notes Urinalysis - Inhouse Reviewed date:12/13/2024 04:14:48 PM Interpretation: Performing Lab: Notes/Report: Color/Clarity yellow Leuk 1+ Nitrite neg Urobili 3.2 Protein trace pH 7.0 Blood 2+ Sp. Gr. 1.020 Ketone neg Bili neg Gluc neg CBC Venipuncture (in house) Reviewed date:12/13/2024 04:14:48 PM Interpretation: Performing Lab: Notes/Report: wbc 13.2 3.5 - 10 lymph 17.2% 15 - 50 mid 5.0% 2 - 15 gran 77.8% 35 - 80 rbc 3.03 3.5 - 5.5 hgb 9.8 11.5 - 16.5 hct 28.3 35 - 55 mcv 93.1 75 - 100 mch 32.5 25 - 35 mchc 34.8 31 - 38 platlet 581 100 - 400 P-Comprehensive Metabolic Pa cruz (CMP) Reviewed date:12/17/2024 01:56:31 PM Interpretation: Performing Lab: Notes/Report: Test performed by [email or web address], [employer] [address] [place] [address] , [address], [place] [address] Mitchel Dior MD, [employer] Work[employer] CLIA: [id number] Sodium 134 135-145 mmol/L Potassium 4.2 3.5-5.3 mmol/L Chloride 99 97-108 mmol/L CO2 21 20-32 mmol/L Glucose 108 65-99 mg/dL BUN 24 8-23 mg/dL Creatinine 1.66 0.50-1.00 mg/dL Calcium 9.0 8.6-10.4 mg/dL eGFR by Creatinine 31 >59 mL/min/1.73m2 Protein 6.1 6.0-8.3 g/dL Albumin 3.6 3.5-5.3 g/dL Alkaline Phosphatase 109 35-121 IU/L ALT (SGPT) 26 <5-47 IU/L AST (SGOT) 17 <5-40 IU/L Bilirubin, Total 0.9 <0.2-1.2 mg/dL A/G Ratio 1.4 1.1-2.5 P-Culture, Urine Reviewed date:12/17/2024 01:56:31 PM Interpretation: Performing Lab: Notes/Report: Test performed by [email or web address], [employer] [address] [place] [address] , [address], [place] [address] Mitchel Dior MD, Flying Squad Worker CLIA: [id number] Specimen Source Urine - Void Culture, Urine See Below Final Report : No growth REASON FOR VISIT UTI/[facility] f/u Medications Medication SIG (Take, Route, Frequency, Duration) Notes Start Date End Date Status Fish Oil 1000 MG 1 capsule Orally Thr ee times a day Active Magnesium 200 MG 2 tablets with a roni l Orally Once a day Active Vitamin C 1000 MG 1 tablet Orally Once a day Active Benzonatate 200 MG 1 capsule as needed Orally Three times a day 11/27/2024 Active Melatonin 3 MG 1 tablet at bedtime as needed Orally Once a day; Duration: 30 days 12/11/2024 Active Multivitamin - 1 tablet Orally Once a day; Duration: 30 day(s) Active Aspirin 81 81 MG 1 tablet Orally Once a day; Duration: 30 day(s) Active Atorvastatin Calcium 10 MG 1 tablet Oral ly Once a day; Duration: 90 days Active Eliquis 5 MG 1 tablet Orally twic e a day; Duration: 90 days Active Carvedilol 12.5 MG Take 1 tablet by twice daily with food; Duration: 90 Active Flaxseed Oil 1200 MG as directed Orally Active Problems Problem Type SNOMED Code ICD Code Onset Dates Problem Status W/U Status Risk Notes Problem Lesion of liver (564092356) Liver lesion (K76.9) Active confirmed Vital Signs Weight 114.2 lbs 12/13/2024 Blood pressure systolic 140 mm Hg 12/14/19 25 Blood pressure diastolic 80 mm Hg 025 Heart Rate 74 /min 12/13/2024 Height 58 in 12/13/2024 BMI 23.87 kg/m2 12/13/2024 Encounters Encounter Location Date Provider Diagnosis [facility] [address] [place] [id number] 12/13/2024 Charlene Benoit Bacteremia R78.81 ; Unspecified Escherichia coli [E. coli] as the cause of diseases classified elsewhere B96.20 ; Acute UTI N39.0 ; Acute diarrhea R19.7 ; Acute renal failure, unspecified acute renal failure type N17.9 and Liver lesion K76.9 Assessments Encounter Date Diagnosis (ICD Code) Assessment Notes Treatment Notes Treatment Clinical Notes Section Notes 12/13/2024 Bacteremia (ICD-10 - R78.81) WBC is improving. Will continue abx and f/u in 2 weeks. 12/13/2024 Unspecified Escherichia coli [E. coli] as the cause of diseases classified elsewhere (ICD-10 - B96.20) 12/13/2024 Acute UTI (ICD-10 - N39.0) 12/13/2024 Acute diarrhea (ICD-10 - R19.7) Improving 12/13/2024 Acute renal failure, unspecified acute renal failure type (ICD-10 - N17.9) 12/13/2024 Liver lesion (ICD-10 - K76.9) Plan Of Treatment Treatment Notes Assessment Notes Bacteremia WBC is improving. Wi ll continue abx and f/u in 2 weeks. Acute diarrhea Improving Next Appt Details Follow Up: via phone to repo rt test results, Reason: Progress Notes * QUEENIE ROSEDOB:1945 (79 yo F)Acc No.[id number]:12/13/2024 Progress Notes Patient: QUEENIE CANNON Provider: MARVA Dang :1945 A ge:79 Y S ex:Female Date:12/13/2024 Address:[address] [place] [address] [address], [place], [id number] Pcp:Chas Barrera Subjective: * Chief Complaints: * 1 . UTI/H f/u. * HPI: H PI: Patient is here today for H ER f/u. Pt states was at [facility] for a UTI. Pt states she is a lot better than she was when she was at [facility]. * ROS: D ERMATOLOGY: no R mady. [...] needed Orally Three times a day , Taking Melatonin 3 MG Tablet 1 tablet at bedtime as needed Orally Once a day , Medication List reviewed and reconciled with the patient * Allergies: N .K.D.A. Objective: * Vitals: W t: 114.2, Temp: 97.7, BP: 140/80, HR: 74, Nurse: pe, Ht: 58, BMI:23.87. * Examination: G eneral Examination: General Appearance: N AD. H EENT: s clera and conjunctiva clear, PERRLA, TM's normal, translucent. O ral cavity: m ucosa dry. N anthony: s upple, no lymphadenopathy. C hest: n ormal shape and expansion. H eart: R SR. L ungs: c lear to auscultation. A bdomen: b owel sounds present, soft and nontender, no organomegaly or masses. N eurologic Exam: I ntact, gait normal. S kin: n ormal, no rash. P eripheral pulses: n ormal (2+) bilaterally. E xtremities: n o leg edema. ? Assessment: * Assessment: 1. B acteremia - R78.81 (Primary) 2 . U nspecified Escherichia coli [E. coli] as the cause of diseases classified elsewhere - B96.20 3 . A cute UTI - N39.0? 4. A cute diarrhea - R19.7 5 . A cute renal failure, unspecified acute renal failure type - N17.9 6 . L iver lesion - K76.9 ? Plan: * Treatment: Value Reference Range A /G Ratio 1.4 1.1-2.5 - * A lbumin 3.6 3.5-5.3 - g/dL * A lkaline Phosphatase 109 35-121 - IU/L * A LT (SGPT) 26 <5-47 - IU/L * A ST (SGOT) 17 <5-40 - IU/L * B ilirubin, Total 0.9 <0.2-1.2 - mg/dL * B UN 24 H 8-23 - mg/dL * C alcium 9.0 8.6-10.4 - mg/dL * C hloride 99 97-108 - mmol/L * C O2 21 20-32 - mmol/L * C reatinine 1.66 H 0.50-1.00 - mg/dL * G lucose 108 H 65-99 - mg/dL * P otassium 4.2 3.5-5.3 - mmol/L * S odium 134 L 135-145 - mmol/L * P rotein 6.1 6.0-8.3 - g/dL * e GFR by Creatinine 31 L >59 - mL/min/1.73m2 * Charlene Benoit 12/13/2024 0 2:02:02 PM EDT >room luis Reyes [place] 12/17/2024 01:56:13 PM EDT > see 12/17/2024 OV w/ BTM ?LAB: CBC Venipuncture (in house) (Collection Date & Time - 12/13/2024)* Value Reference Range w bc 13.2 3.5 - 10 * l ymph 17.2% 15 - 50 * m id 5.0% 2 - 15 * g ran 77.8% 35 - 80 * r bc 3.03 3.5 - 5.5 * h gb 9.8 11.5 - 16.5 * h ct 28.3 35 - 55 * m cv 93.1 75 - 100 * m ch 32.5 25 - 35 * m chc 34.8 31 - 38 * p latlet 581 100 - 400 * Maryjo Genet 12/13/2024 0 2:49:54 PM EDT > Provider reviewed results while patient in office. Notes: WBC is improving. Will continue abx and f/u in 2 weeks.??2.?Acute UTI?LAB: P-Culture, Urine (Collection Date & Time - 12/13/2024 01:08 PM)* Value Reference Range C ulture, Urine See Below - * S pecimen Source Urine - Void - * Charlene Benoit 12/13/2024 0 2:02:02 PM EDT >room luis Whitney 12/17/2024 01:56:13 PM EDT > see 12/17/2024 OV w/ BTM ?LAB: Urinalysis - Inhouse (Collection Date & Time - 12/13/2024)* Value Reference Range C olor/Clarity yellow * L euk 1+ * N itrite neg * U robili 3.2 * P rotein trace * p H 7.0 * B lood 2+ * S p. Gr. 1.020 * K etone neg * B kristopher neg * G raoul neg * Genet Sibley 12/13/2024 0 2:06:02 PM EDT > Provider reviewed results while patient in office. 3.?Acute diarrhea? Notes: Improving?? * Procedure Codes: G 2211 Complex e/[place], [address] Urinalysis, no micro, 199[address] CBC WITH AUTO DIFF, 94552 VENIPUNCT, ROUTINE* * Follow Up: v ia phone to report test results * Images: Billing Information: * Visit Code: 19506 Office Visit, Est Pt., Level 4. * Procedure Codes: G2211 Complex e/[place] [address] Urinalysis, no micro. [address]36 CBC WITH AUTO DIFF. 74755 VENIPUNCT, ROUTINE*. * Electronic signature of MARVA Elizalde on 02/03/2025 at 09:12 AM EST Sign off status: Pending * Provider: MARVA Dang Date: Generated for Milanai ng/Faxing/eTransmitting on: 04/05/2024 09:12 AM EST History and Physical Notes * HPI (History of Present Illness) Category Sub-Category Detail Notes Category Not es HPI Patient is here today for [facility] ER f/u. Pt states was at [facility] for a UTI. Pt states she is a lot better than she was when she was at [facility] Examination Category Sub-Category Detail Notes Category Not es General Examination HEENT: sclera and c onjunctiva clear, PERRLA, TM's normal, translucent Heart: RSR Lungs: clear to auscultatio n Abdomen: bowel sounds present , soft and nontender, no organomegaly or masses Extremities: no leg edema General Appearance: NAD Skin: normal, no rash Neurologic Exam: Intact, gait normal Neck: supple, no lymphaden opathy Oral cavity: mucosa dry Peripheral pulses: normal (2+) bilatera lly Chest: normal shape and exp ansion
--- OUTSIDE RECORDS SUMMARY | 2024-12-17 05:15 | XMS_ITS ---
[facility] [address] [facility] [address] [facility] [address] [place] [id number] Care Team Providers Care Entry Level Account Executive Name Role Phone Chas Barrera Primary Care Provider Jamal Cao Unavailable [phone] Allergies No Known Allergies Results Component Value Reference Range Notes Urinalysis - Inhouse Reviewed date:12/17/2024 11:34:17 AM Interpretation: Performing Lab: Notes/Report: Color/Clarity Yellow/Clear Leuk 1+ Nitrite Neg Urobili 3.2 Protein Neg pH 6.5 Blood 2+ Sp. Gr. 1.010 Ketone Neg Bili Neg Gluc Neg CBC Venipuncture (in house) Reviewed date:12/17/2024 01:56:31 PM Interpretation: Performing Lab: Notes/Report: wbc 9.5 3.5 - 10 lymph 19.1% 15 - 50 mid 5.1% 2 - 15 gran 75.8% 35 - 80 rbc 2.91 3.5 - 5.5 hgb 9.4 11.5 - 16.5 hct 27.1 35 - 55 mcv 93.2 75 - 100 mch 32.4 25 - 35 mchc 34.7 31 - 38 platlet 689 100 - 400 P-Basic Metabolic Panel (BMP ) Reviewed date:12/18/2024 09:49:30 AM Interpretation:Cr 1.61, gfr 33, Na 132 Performing Lab: Notes/Report: Test performed by [employer], [facility] , [address], [place] [address] Mitchel Dior MD, Sales Exhibitor CLIA: [id number] Sodium 132 135-145 mmol/L Potassium 4.2 3.5-5.3 mmol/L Chloride 99 97-108 mmol/L CO2 23 20-32 mmol/L Glucose 101 65-99 mg/dL BUN 20 8-23 mg/dL Creatinine 1.61 0.50-1.00 mg/dL Calcium 9.2 8.6-10.4 mg/dL eGFR by Creatinine 33 >59 mL/min/1.73m2 REASON FOR VISIT [facility] D/C F/U Medications Medication SIG (Take, Route, Frequency, Duration) Notes Start Date End Date Status Carvedilol 12.5 MG Take 1 tablet by ren twice daily with food; Duration: 90 Active Eliquis 5 MG 1 tablet Orally twic e a day; Duration: 90 days Active levoFLOXacin 500 MG 1 tablet Orally Once a day Active Melatonin 3 MG 1 tablet at bedtime as needed Orally Once a day; Duration: 30 days 12/11/2024 Active Aspirin 81 81 MG 1 tablet Orally Once a day; Duration: 30 day(s) Active Multivitamin - 1 tablet Orally Once a day; Duration: 30 day(s) Active Flaxseed Oil 1200 MG as directed Orally Active Vitamin C 1000 MG 1 tablet Orally Once a day Active Atorvastatin Calcium 10 MG 1 tablet Oral ly Once a day; Duration: 90 days Active Magnesium 200 MG 2 tablets with a roni l Orally Once a day Active Fish Oil 1000 MG 1 capsule Orally Thr ee times a day Active Vital Signs Weight 112.8 lbs 12/17/2024 Blood pressure systolic 136 mm Hg 12/18/19 25 Blood pressure diastolic 80 mm Hg 025 Heart Rate 85 /min 12/17/2024 Height 58 in 12/17/2024 BMI 23.57 kg/m2 12/17/2024 Encounters Encounter Location Date Provider Diagnosis [facility] [address], [place] [id number] 12/17/2024 Jamal [place] Bacteremia R78.81 ; Unspecified Escherichia coli [E. coli] as the cause of diseases classified elsewhere B96.20 ; Renal insufficiency N28.9 ; Urinary incontinence, unspecified type R32 ; Urinary tract infection without hematuria, site unspecified N39.0 and Anemia, unspecified type D64.9 Assessments Encounter Date Diagnosis (ICD Code) Assessment Notes Treatment Notes Treatment Clinical Notes Section Notes 12/17/2024 Bacteremia (ICD-10 - R78.81) 12/17/2024 Unspecified Escherichia coli [E. coli] as the cause of diseases classified elsewhere (ICD-10 - B96.20) 12/17/2024 Renal insufficiency (ICD-10 - N28.9) 12/17/2024 Urinary incontinence, unspecified type (ICD-10 - R32) 12/17/2024 Urinary tract infection without hematuria, site unspecified (ICD-10 - N39.0) 12/17/2024 Anemia, unspecified type (ICD-10 - D64.9) Plan to recheck CBC at follow up visit 12/17/2024 Other Discharge summary with available lab/diagnostic imaging results obtained and reviewed. Discharge medication list reconciled. Appropriate counseling provided. Moderate Complexity Plan Of Treatment Medication Medication Name Sig Start Date Stop Date Notes levoFLOXacin 500 MG 1 tablet Orally Once a day Treatment Notes Assessment Notes Anemia, unspecified type Plan to recheck CBC at follow up visit Other Discharge summary wi th available lab/diagnostic imaging results obtained and reviewed. Discharge medication list reconciled. Appropriate counseling provided. Moderate Complexity Next Appt Details Follow Up: 4 Weeks with CC, Reason: Progress Notes * ROSEQUEENIEDOB:1945 (79 yo F)Acc No.[id number]:12/17/2024 Patient: QUEENIE CANNON Provider: Eric Cao M.D. :1945 A ge:79 Y S ex:Female Date:12/17/2024 Address:[address] [place] [address], [facility] [id number] Pcp:Chas Barrera Subjective: * Chief Complaints: * 1 . [facility] D/C F/U. * HPI: H PI: Patient is here today for a Transition of Care Visit. Discharge from the following Facility: Admitted to [facility] on 12/05/2024 with Sepsis, Encephalopathy and altered Mental status, Discharge date: 12/09/2024 ,Date of phone contact following discharge: 12/10/2024. Pt states that UTI symptoms come and go still. Pt states she felt bad yesterday but is feeling better today. * 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: H ypertension, Rapid heart [...] yes. Alcohol: No. * Medications: T aking levoFLOXacin 500 MG Tablet 1 tablet Orally Once a day , Taking Fish Oil 1000 MG Capsule 1 capsule [...] mouth twice daily with food , Taking Melatonin 3 MG Tablet 1 tablet at bedtime as needed Orally Once a day , Discontinued Benzonatate 200 MG Capsule 1 capsule as needed Orally Three times a day , Medication List reviewed and reconciled with the patient * Allergies: N .K.D.A. Objective: * Vitals: W t: 112.8, Temp: 98.1, BP: 136/80, HR: 85, Nurse: anne, Ht: 58, BMI:23.57. * Examination: G eneral Examination: General Appearance: N AD. H eart: R SR. L ungs:?clear to auscultation. Assessment: * Assessment: 1. B acteremia - R78.81 (Primary) 2 . U nspecified Escherichia coli [E. coli] as the cause of diseases classified elsewhere - B96.20 3 . R enal insufficiency - N28.9 4 . U rinary incontinence, unspecified type - R32 5 . Urinary tract infection without hematuria, site unspecified - N39.0 6 . A nemia, unspecified type - D64.9 Plan: * Treatment: Value Reference Range w bc 9.5 3.5 - 10 * l ymph 19.1% 15 - 50 * m id 5.1% 2 - 15 * g ran 75.8% 35 - 80 * r bc 2.91 3.5 - 5.5 * h gb 9.4 11.5 - 16.5 * h ct 27.1 35 - 55 * m cv 93.2 75 - 100 * m ch 32.4 25 - 35 * m chc 34.7 31 - 38 * p latlet 689 100 - 400 * Juvenal Mcconnellira 12/17/2024 12:02: 00 PM EDT > Yesica Holbrook 12/17/2024 01:56:13 PM EDT > see 12/17/2024 OV w/ BTM 2.?Renal insufficiency?LAB: P-Basic Metabolic Panel (BMP) (Collection Date & Time - 12/17/2024 09:39 AM)?Cr 1.61, gfr 33, Na 132* Value Reference Range B UN 20 8-23 - mg/dL * C alcium 9.2 8.6-10.4 - mg/dL * C hloride 99 97-108 - mmol/L * C O2 23 20-32 - mmol/L * C reatinine 1.61 H 0.50-1.00 - mg/dL * G lucose 101 H 65-99 - mg/dL * P otassium 4.2 3.5-5.3 - mmol/L * S odium 132 L 135-145 - mmol/L * e GFR by Creatinine 33 L >59 - mL/min/1.73m2 * Destiny Rhodes 12/18/2024 09:4 9:22 AM EDT > See phone encounter 3.?Urinary incontinence, unspecified type?LAB: Urinalysis - Inhouse (Collection Date & Time - 12/17/2024)* Value Reference Range C olor/Clarity Yellow/Clear * L euk 1+ * N itrite Neg * U robili 3.2 * P rotein Neg * p H 6.5 * B lood 2+ * S p. Gr. 1.010 * K etone Neg * B kristopher Neg * G raoul Neg * Atiya Mcconnell 12/17/2024 10:17: 55 AM EDT > Provider reviewed results while patient in office. 4.?Urinary tract infection without hematuria, site unspecified?LAB: Urinalysis - Inhouse (Collection Date & Time - 12/17/2024)* Value Reference Range C olor/Clarity Yellow/Clear * L euk 1+ * N itrite Neg * U robili 3.2 * P rotein Neg * p H 6.5 * B lood 2+ * S p. Gr. 1.010 * K etone Neg * B kristopher Neg * G raoul Neg * Atiya Mcconnell 12/17/2024 10:17: 55 AM EDT > Provider reviewed results while patient in office. 5.?Anemia, unspecified type? Notes: Plan to recheck CBC at follow up visit??6.?Others? Notes: Discharge summary with available lab/diagnostic imaging results obtained and reviewed. Discharge medication list reconciled. Appropriate counseling provided. Moderate Complexity?? * Procedure Codes: G 2211 Complex e/[place], [address] [facility] 14 DAY DISCH, 1111F DSCHR MED/CURENT MED MERGE, 13402 Urinalysis, no micro, 764[address] CBC WITH AUTO DIFF, 1036F TOBACCO NON-USER, 3075F SYST BP GE 130 - 139MM HG, 3079F DIAST BP 80-89 MM HG * Follow Up: 4 Weeks with CC * Images: Billing Information: * Visit Code: 09400 Office Visit, Est Pt., Level 4. * Procedure Codes: G2211 Complex e/[place]. [address] [facility] 14 DAY DISCH. 1111F DSCHR MED/CURENT MED MERGE. 33798 Urinalysis, no micro. 16694 CBC WITH AUTO DIFF. 1036F TOBACCO NON-USER. 3075F SYST BP GE 130 - 139MM HG. 3079F DIAST BP 80-89 MM HG. * Electronic signature of Denice Cao MD on 02/03/2025 at 09:12 AM EST Sign off status: Pending * Provider: Eric Cao M.D. Date: Generated for Bassem plascencia/Makeda/eTransmitting on: 04/05/2024 09:12 AM EST History and Physical Notes * HPI (History of Present Illness) Category Sub-Category Detail Notes Category Not es HPI Patient is here today for a [facility] sition of Care Visit. Discharge from the following Facility: Admitted to [facility] on 12/05/2024 with Sepsis, Encephalopathy and altered Mental status, Discharge date: 12/09/2024 ,Date of phone contact following discharge: 12/10/2024. Pt states that UTI symptoms come and go still. Pt states she felt bad yesterday but is feeling better today Examination Category Sub-Category Detail Notes Category Not es General Examination Heart: RSR Lungs: clear to auscultatio n General Appearance: NAD
--- OUTSIDE RECORDS SUMMARY | 2024-12-26 05:15 | XMS_ITS ---
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 Gr. 1.015 Ketone neg Bili neg Gluc neg CBC Venipuncture (in house) Reviewed date:01/01/2025 09:22:13 AM Interpretation:hgb 11.1, hct 32.9, plt 538 Performing Lab: Notes/Report: hgb 11.1, hct 32.9, plt 538 wbc 7.9 3.5 - 10 lymph 26.9 15 - 50 mid 6.4 2 - 15 gran 66.7 35 - 80 rbc 3.54 3.5 - 5.5 hgb 11.1 11.5 - 16.5 hct 32.9 35 - 55 mcv 92.9 75 - 100 mch 31.3 25 - 35 mchc 33.7 31 - 38 platlet 538 100 - 400 P-Comprehensive Metabolic Pa cruz (CMP) Reviewed date:01/01/2025 09:22:13 AM Interpretation:Creat 1.48, eGFR 36 Performing Lab: Notes/Report: Test performed by [facility] [address] [facility] , [address], [place] [address] Mitchel Dior MD, Water Conservationist CLIA: [id number] Sodium 137 135-145 mmol/L Potassium 5.3 3.5-5.3 mmol/L Chloride 101 97-108 mmol/L CO2 24 20-32 mmol/L Glucose 103 65-99 mg/dL BUN 22 8-23 mg/dL Creatinine 1.48 0.50-1.00 mg/dL Calcium 10.0 8.6-10.4 mg/dL eGFR by Creatinine 36 >59 mL/min/1.73m2 Protein 6.5 6.0-8.3 g/dL Albumin 3.6 3.5-5.3 g/dL Alkaline Phosphatase 95 35-121 IU/L ALT (SGPT) 17 <5-47 IU/L AST (SGOT) 17 <5-40 IU/L Bilirubin, Total 0.3 <0.2-1.2 mg/dL A/G Ratio 1.2 1.1-2.5 Mammogram Reviewed date:01/30/2025 03:16:57 PM Interpretation:Negative, Annual F/U Performing Lab: Notes/Report: Negative, Annual F/U REASON FOR VISIT follow up and Annual Wellness Visit Medications Medication SIG (Take, Route, Frequency, Duration) Notes Start Date End Date Status Fish Oil 1000 MG 1 capsule Orally Thr ee times a day Active Carvedilol 12.5 MG 1 tablet with food Orally Twice a day; Duration: 90 days Active Vitamin C 1000 MG 1 tablet Orally Once a day Active Magnesium 200 MG 2 tablets with a roni l Orally Once a day Active Flaxseed Oil 1200 MG as directed Orally Active Eliquis 5 MG 1 tablet Orally twic e a day; Duration: 90 days Active Ferrous Sulfate 325 (65 Fe) MG 1 tablet Orally twice a day; Duration: 30 days 12/18/2024 Active Atorvastatin Calcium 10 MG 1 tablet Orally Once a day; Duration: 90 days Active levoFLOXacin 500 MG 1 tablet Orally Once a day Not-Taking Melatonin 3 MG 1 tablet at bedtime as needed Orally Once a day; Duration: 30 days 12/11/2024 Active Multivitamin - 1 tablet Orally Once a day; Duration: 30 day(s) Active Aspirin 81 81 MG 1 tablet Orally Once a day; Duration: 30 day(s) Active Immunizations Vaccine Route Administration Date Status Comme nts Fluzone High Dose (65yr and older) IM Intramuscular 12/26/2024 Administered Vital Signs Weight 112.6 lbs 12/26/2024 Blood pressure systolic 142 mm Hg 12/27/19 25 Blood pressure diastolic 70 mm Hg 025 Heart Rate 73 /min 12/26/2024 Height 58 in 12/26/2024 BMI 23.53 kg/m2 12/26/2024 Encounters Encounter Location Date Provider Diagnosis [facility] [address] [place], [place] [id number] 12/26/2024 Charlene Benoit Adult general medica l examination Z00.00 ; Renal insufficiency N28.9 ; Anemia, unspecified type D64.9 ; Paroxysmal atrial fibrillation I48.0 ; Essential (primary) hypertension I10 ; Encounter for immunization Z23 ; Aortic valve sclerosis I35.8 ; Seasonal allergic rhinitis due to other allergic trigger J30.89 ; Urinary frequency R35.0 ; Screening mammogram, encounter for Z12. ; BMI 23.0-23.9, adult Z68.23 and Osteopenia M85.80 Assessments Encounter Date Diagnosis (ICD Code) Assessment Notes Treatment Notes Treatment Clinical Notes Section Notes 12/26/2024 Adult general medical examination (ICD-10 - Z00.00) Patient instructed to return to office Annually for Annual Wellness Visits to include annual screenings of Pain assessment, Functional Ability assessment, Cognitive Ability assessment, Fall Risk assessment, Depression screening and Bladder control screening. 12/26/2024 Renal insufficiency (ICD-10 - N28.9) 12/26/2024 Anemia, unspecified type (ICD-10 - D64.9) Plan to recheck CBC at follow up visit 12/26/2024 Paroxysmal atrial fibrillation (ICD-10 - I48.0) 12/26/2024 Essential (primary) hypertension (ICD-10 - I10) 12/26/2024 Encounter for immunization (ICD-10 - Z23) 12/26/2024 Aortic valve sclerosis (ICD-10 - I35.8) 12/26/2024 Seasonal allergic rhinitis due to other allergic trigger (ICD-10 - J30.89) 12/26/2024 Urinary frequency (ICD-10 - R35.0) 12/26/2024 Screening mammogram, encounter for (ICD-10 - Z12.31) 12/26/2024 BMI 23.0-23.9, adult (ICD-10 - Z68.23) 12/26/2024 Osteopenia (ICD-10 - M85.80) Plan Of Treatment Treatment Notes Assessment Notes Adult general medical examination Patien t instructed to return to office Annually for Annual Wellness Visits to include annual screenings of Pain assessment, Functional Ability assessment, Cognitive Ability assessment, Fall Risk assessment, Depression screening and Bladder control screening. Anemia, unspecified type Plan to recheck CBC at follow up visit Next Appt Details Follow Up: As directed by MD , Reason: Progress Notes * QUEENIE ROSEDOB:1945 (79 yo F)Acc No.[id number]:12/26/2024 Annual Wellness Visit Patient: QUEENIE CANNON Provider: MARVA Dang :1945 A ge:79 Y S ex:Female Date:12/26/2024 Address:[address] [place] [address], [facility], [id number] Pcp:Chas Barrera Subjective: * Chief Complaints: * 1 . follow up and Annual Wellness Visit. * HPI: H PI: Patient is here today for P atient is here today to f/u on previous hospital stay with Sepsis and UTI. Dr. Cao ordered f/u cbc to be performed today. She is also here for her Annual Wellness Visit. * ROS: D ERMATOLOGY: no R mady. n o H michael. G ASTROENTEROLOGY: no N ausea. n o V omiting. n o D iarrhea.? O PTHALMOLOGY: Negative for d enies vision issues. U ROLOGY: no D ifficulty urinating. n [...] yes. Alcohol: No. * Medications: T aking Atorvastatin Calcium 10 MG Tablet 1 tablet Orally Once a day , Taking Eliquis 5 MG Tablet 1 tablet Orally twice a day , Taking Carvedilol 12.5 MG Tablet 1 tablet with food Orally Twice a day , Taking Fish Oil 1000 [...] tablet Orally Once a day , Taking Melatonin 3 MG Tablet 1 tablet at bedtime as needed Orally Once a day , Taking Ferrous Sulfate 325 (65 Fe) MG Tablet 1 tablet Orally twice a day , Not- Taking levoFLOXacin 500 MG Tablet 1 tablet Orally Once a day , Medication List reviewed and reconciled with the patient * Allergies: N .K.D.A. Objective: * Vitals: W t: 112.6, Temp: 97.9, BP: 142/70, HR: 73, Nurse: pe, Ht: 58, BMI:23.53. * Examination: G eneral Examination: General Appearance: N AD. H EENT: u nremarkable.?Oral cavity: n o lesions, mucosa moist and WNL, no erythema. N anthony: s upple, no lymphadenopathy. C hest: n ormal shape and expansion. H eart: R SR. L ungs: c lear to auscultation. A bdomen: b owel sounds present, soft, hernia present, nontender. N eurologic Exam: I ntact, gait normal. S kin: n ormal, no rash. P eripheral pulses:?normal (2+) bilaterally. E xtremities: n o leg edema. * Physical Examination: G ENERAL: Pain Assessment: P ain level:0 , on a scale of 0-10 (with 10 being extreme pain). F unctional Status Assessment: P atient response to question of how often physical health interferes with daily activities: almost never. Able to perform ADLs-including meal preparation, grocery shopping, housework, laundry, taking medications or handling finances. Cognitive Status: alert and oriented. Ambulation Status: Fully ambulatory. F all Risk Assessment: I ndependant in ambulation, adequate lighting in home. Patient has NOT fallen or had trouble walking within the past 12 months. D epression Screening: D enies depressed mood or anxiety. Describes emotional health as:positive/upbeat. B ladder Control Screening: S mall problem. Assessment: * Assessment: 1. A dult general medical examination - Z00.00 (Primary) 2 . R enal insufficiency - N28.9 3 . A nemia, unspecified type - D64.9 4 . P aroxysmal atrial fibrillation - I48.0 5 . E ssential (primary) hypertension - I10 6. E ncounter for immunization - Z23 7 . A ortic valve sclerosis - I35.8 8 . S easonal allergic rhinitis due to other allergic trigger - J30.89 9 . U rinary frequency - R35.0 1 0. S creening mammogram, encounter for - Z12.31 1 1. B SD 23.0-23.9, adult - Z68.23 1 2. O steopenia - M85.80 Plan: * Treatment: Value Reference Range C olor/Clarity yellow * L euk 1+ * N itrite neg * U robili 3.2 * P rotein neg * p H 7.0 * B lood 1+ * S p. Gr. 1.015 * K etone neg * B kristopher neg * G raoul neg * Genet Sibley 12/26/2024 11:52:14 AM EDT > Provider reviewed results while patient in office. Notes:Patient instructed to return to office Annually for Annual Wellness Visits to include annual screenings of Pain assessment, Functional Ability assessment, Cognitive Ability assessment, Fall Risk assessment, Depression screening and Bladder control screening.??2.?Renal insufficiency?LAB: P-Comprehensive Metabolic Panel (CMP) (Collection Date & Time - 12/26/2024 10:14 AM)?Creat 1.48, eGFR 36* Value Reference Range A /G Ratio 1.2 1.1-2.5 - * A lbumin 3.6 3.5-5.3 - g/dL * A lkaline Phosphatase 95 35-121 - IU/L * A LT (SGPT) 17 <5-47 - IU/L * A ST (SGOT) 17 <5-40 - IU/L * B ilirubin, Total 0.3 <0.2-1.2 - mg/dL * B UN 22 8-23 - mg/dL * C alcium 10.0 8.6-10.4 - mg/dL * C hloride 101 97-108 - mmol/L * C O2 24 20-32 - mmol/L * C reatinine 1.48 H 0.50-1.00 - mg/dL * G lucose 103 H 65-99 - mg/dL * P otassium 5.3 3.5-5.3 - mmol/L * S odium 137 135-145 - mmol/L * P rotein 6.5 6.0-8.3 - g/dL * e GFR by Creatinine 36 L >59 - mL/min/1.73m2 * Yesica Holbrook 01/01/2025 09 :20:57 AM EDT > See phone encounter 3.?Anemia, unspecified type?LAB: CBC Venipuncture (in house) (Collection Date & Time - 12/26/2024)?hgb 11.1, hct 32.9, plt 538* Value Reference Range w bc 7.9 3.5 - 10 * l ymph 26.9 15 - 50 * m id 6.4 2 - 15 * g ran 66.7 35 - 80 * r bc 3.54 3.5 - 5.5 * h gb 11.1 11.5 - 16.5 * h ct 32.9 35 - 55 * m cv 92.9 75 - 100 * m ch 31.3 25 - 35 * m chc 33.7 31 - 38 * p latlet 538 100 - 400 * Genet Sibley 12/26/2024 12:49:00 PM EDT > Yesica Holbrook 01/01/2025 09:20:57 AM EDT > See phone encounter Notes: Plan to recheck CBC at follow up visit??4.?Screening mammogram, encounter for?Imaging: Mammogram (Performed Date - 01/27/2025)?Negative, Annual F/U* Jeanne Simpson 12/30/2024 10: 11:02 AM EDT > faxed to [facility] Nikki Yanes 01/30/2025 09:44:22 AM EST > left Nikki Mcgrath 01/30/2025 03:16:44 PM EST >pt informed * Immunizations: Fluzone High Dose (65yr and older) : 0.5 mL (Route: Intramuscular) given by KLEBER Butler , Internal Medicine Doctor on Left Deltoid (Encounter for immunization) * Procedure Codes: G 0439 ANNUAL WELLNESS VST; PPS SUBSQT VST, G2211 Complex e/m visit add on, 1090F PRES/ABSN URINE INCON ASSESS, 3288F FALL RISK ASSESSMENT DOCD, 1170F FXNL STATUS ASSESSED, 1126F AMNT PAIN NOTED NONE PRSNT, 1159F MED LIST DOCD IN RCRD, 1003F LEVEL OF ACTIVITY ASSESS, 1036F TOBACCO NON-USER, 3017F COLORECTAL CA SCREEN DOC REV, G8399 PT W/DXA DOCUMENT OR ORDER, G9899 [place], [address] CBC WITH AUTO DIFF, 39581 Urinalysis, no micro, G8510 NEG SCR Depression PT NOT ELIG F/U/PLN DOC, G8420 BMI<30 AND >=22 CALC & DOCU, G8950 PREHTN/HTN BP DOC INDCD F/U DOC, G8753 MOST RECENT SYSTOLIC BP >= 140MM HG, G8754 MOST RECENT DIASTOLIC BP < 90MM HG, 3077F SYST BP = 140 MM HG6 IT, 3078F DIAST BP < 80 MM HG * Preventive Medicine: Counseling: E motional health: P atient encouraged to try connecting with family or friends to boost mood. B ladder control: M ethods of controlling or managing leakage of urine discussed. E xercise: P atient advised to start, increase or maintain level of exercise/physical activity. I njury prevention: F all prevention discussed. Discussed need for cane/walker. Potential trip hazards discussed. Immunizations: T etanus u p to date. P neumococcal u p to date. I nfluenza r ecommended seasonally. Screening / Special Tests: M ammogram R ecent history: 08/05/2022, negative, recommended today. C olonoscopy R ecent history: 03/13/2024 Colon resection, 10/03/2024 Colonoscopy- diverticula. B one mineral Density R ecent history: 01/11/2023, osteopenia. Order sent to [facility] 12/12/2024. * Follow Up: A s directed by * Images: Billing Information: * Visit Code: 82967 Office Visit, Est Pt., Level 3. Modifiers: 25 * Procedure Codes: G0439 ANNUAL WELLNESS VST; PPS SUBSQT VST. G2211 Complex e/m visit add on. 1090F PRES/ABSN URINE INCON ASSESS. 3288F FALL RISK ASSESSMENT DOCD. 1170F FXNL STATUS ASSESSED. 1126F AMNT PAIN NOTED NONE PRSNT. 1159F MED LIST DOCD IN RCRD. 1003F LEVEL OF ACTIVITY ASSESS. 1036F TOBACCO NON-USER. 3017F COLORECTAL CA SCREEN DOC REV. G8399 PT W/DXA DOCUMENT OR ORDER. G9899 Scrn isak [place]sl[place]. 9[address]63 CBC WITH AUTO DIFF. 26155 Urinalysis, no micro. G8510 NEG SCR Depression PT NOT ELIG F/U/PLN DOC. G8420 BMI<30 AND >=22 CALC & DOCU. G8950 PREHTN/HTN BP DOC INDCD F/U DOC. G8753 MOST RECENT SYSTOLIC BP >= 140MM HG. G8754 MOST RECENT DIASTOLIC BP < 90MM HG. 3077F SYST BP = 140 MM HG6 IT. 3078F DIAST BP < 80 MM HG. * Electronic signature of MARVA Elizalde on 02/03/2025 at 09:14 AM EST Sign off status: Pending * Provider: MARVA Dang Date: 1 Generated for Bassem plascencia/Makeda/eTransmitting on: 04/05/2024 09:14 AM EST History and Physical Notes * HPI (History of Present Illness) Category Sub-Category Detail Notes Category Not es HPI Patient is here today for Patien t is here today to f/u on previous hospital stay with Sepsis and UTI. Dr. Cao ordered f/u cbc to be performed today. She is also here for her Annual Wellness Visit Physical Examination Category Sub-Category Detail Notes Section Note s GENERAL Pain Assessment: Pain level:0 , on a scale of 0-10 (with 10 being extreme pain) Functional Status Assessment: Patient re sponse to question of how often physical health interferes with daily activities: almost never. Able to perform ADLs-including meal preparation, grocery shopping, housework, laundry, taking medications or handling finances.Cognitive Status: alert and oriented.Ambulation Status: Fully ambulatory Fall Risk Assessment: Independant in amb ulation, adequate lighting in home. Patient has NOT fallen or had trouble walking within the past 12 months Depression Screening: Denies depressed m ood or anxiety. Describes emotional health as:positive/upbeat Bladder Control Screening: Small problem Examination Category Sub-Category Detail Notes Category Not es General Examination HEENT: unremarkable Heart: RSR Lungs: clear to auscultatio n Abdomen: bowel sounds present , soft, hernia present, nontender Extremities: no leg edema General Appearance: NAD Skin: normal, no rash Neurologic Exam: Intact, gait normal Neck: supple, no lymphaden opathy Oral cavity: no lesions, mucosa m oist and WNL, no erythema Peripheral pulses: normal (2+) bilatera lly Chest: normal shape and exp ansion
--- OUTSIDE RECORDS SUMMARY | 2025-01-09 09:15 | XMS_ITS | Encounter Summary ---
Author Organization [place] [address] Care Team Providers Care Record Producer Name Role Phone Chas Barrera Primary Care Provider [phone] Encounter Details Date Type Department Care Team (Latest Contact Info) Description 01/09/2025 10:15 AM EDT - 01/09/2025 11:59 PM EDT Hospital Encounter EDG PRE-ADMIT TESTING [facility] [place] [address] Preop testing (Primary Dx); Anemia, unspecified type; Uterovaginal prolapse Discharge Disposition: Home or Self Care Anesthesia Record Procedure Summary Procedure Name Responsible Anesthesiologist Anesthesia Start Time Anesthesia Stop Time LEFORT COLPOCLEISIS Sean Rizo MD 01/16/25 1026 01/16/25 1233 Events Date Time Event Comment 01/16/2025 0946 1004 AN Equip Check 1026 An Start 1028 An Start Data 1030 Immediate Pre Anesthetic Ass es 1030 An Induction 1033 An Intubation 1034 Anesthesia Ready 1050 Time out 1050 Incision 1223 An Emergence 1226 An Extubation 1227 an stop data 1233 An Stop 1233 Handoff I completed my SBAR handoff to [...] acknowledgement of understanding from the receiving PACU/ICU steamer blocker Meds * Agents No agents on file. * Blood No blood administrations on file. Lines, Drains, and Airways Type Details Placement Removal Peripheral IV 01/16/25; 0953; 20; Right; Wrist; as; 1; 01/17/25; 1007; Therapy completed (discussed with primary RN); Catheter intact, Dressing applied, No Complications 01/16/25 0953 by Madhavi Leal RN 01/17/25 1007 by Charlee Davey, AMADOR, Instructor Airway Device: ETT- Cuffed; Size: 7 mm; Placement Date: 01/16/25; Placement Time: 103 (created via procedure documentation); Removal Date: 01/16/25; Removal Time: 12201/16/25 1033 by Pham Martin CRNA 01/16/25 1226 by Pham Martin CRNA Urethral Catheter (Huynh) Placement Date: 01/16/25; Placement Time: 104; Inserted By: Cresencio; Type: Latex; Balloon Size: 10 ml; Collection Container: Urimeter; Urine Returned: Yes; Location: OR; Silver-Coated Catheter In Use?: Yes; ELIZA Intact?: Yes; Removal Date: 01/17/25; Removal Time: 0501/16/25 1045 by Patrica Ibarra RN 01/17/25 0525 by Melisa Keller RN Incision/Wound 01/16/25; 1050; No; Closed Surgical; Vagina; 01/17/25; 1502 01/16/25 1050 by Patrica Ibarra RN 01/17/25 1502 by Discharge Provider, Automatic Incision/Wound 01/16/25; 1140; No; Urethra; cysto; 01/17/25; 1502 01/16/25 1140 by Patrica Ibarra RN 01/17/25 1502 by Discharge Provider, Automatic documented in this encounter Social History Tobacco Use Types Packs/Day Years Used Date Smoking Tobacco: Never Smokeless Tobacco: Never Alcohol Use Standard Drinks/Week Comments Not Currently 0 (1 standard drink = 0.6 oz pur e alcohol) [facility] Utilities Answer Date Recorded In the past 12 months has [facility], [employer], or water company threatened to shut off services in your home? No 11/08/2024 Overall Financial Resource Strain (CARDIA) Answe r Date Recorded How hard is it for you to pa y for the very basics like food, housing, medical care, and heating? Not hard at all 11/08/2024 PHQ-2 Answer Date Recorded PHQ-2 Total Score 0 11/08/2024 [facility] Occupational Stress Questionnaire Answer Date Recorded [...] money to get more. Never true 11/08/2024 [facility] IP Transportation Answer D ate Recorded In [...] Sign Reading Time Taken Comments Blood Pressure 157/76 01/09/2025 10:21 AM EDT Pulse 71 01/09/2025 10:21 AM EDT Temperature 36.3 C (97.3 F) 01/09/2025 10:21 AM EDT Respiratory Rate 16 01/09/2025 10:21 AM EDT Oxygen Saturation 100% 01/09/2025 10:21 AM EDT Inhaled Oxygen Concentration - - Weight 50.8 kg (112 lb) 01/09/2025 10:21 AM EDT Height 147.3 cm (4' 10 ) 01/09/2025 10:21 AM EDT Body Mass Index 23.41 01/09/2025 10:21 AM EDT documented in this encounter Discharge Instructions * Discharge Instructions* Cristal Mcconnell RN - 01/09/2025 10:43 AM EDT Images from the original note were not included. PREPARING FOR YOUR SURGERY Date of Surgery: 01/16/25 Arrival time: Your surgeon may have already provided this, check your paperwork from the office. Ifnot received, call your surgeon's office. Location: [facility] Medications on the Day of Surgery Take the following medications on the morning of surgery: CARVEDILOL Medications to hold prior to surgery; Verify with your doctor for possibly discontinuing the following medications: blood thinners, aspirin, or anti-inflammatories. Stop taking all supplements 7 days prior to your surgery. Food, Drinks, Tobacco Do not eat food after midnight. This includes gum, mints, candy, chewing tobacco, and dip. Unless otherwise instructed by your surgeon, you may consume water, Gatorade, Powerade, black coffee/tea (nomilk, no cream/creamers, no sugar). Finish these liquids 2 hours prior to your scheduled arrival time. [...] have anything to drink after this point. Concrete Plant Laborer It is important to have a Concrete Plant Laborer, someone who is 18 years or older, [...] concern, please reach out to our department [phone]. Hygiene [place] your teeth and gargle the morning of surgery. Shower the morning of surgery or the night before. Do not wear makeup (including eye makeup) lotion, powder, deodorant, perfume, or cologne. Do not shave the operative extremity or near the operative area. Remove nail anguillan prior to surgery. This includes artificial nails and gel nail anguillan. Personal Items Wear clean, simple, loose-fitting clothing (no jeans) and sturdy shoes (no flip flops, slides or crocs) to the hospital. Do not bring unnecessary valuables with you. It is policy that [facility] does not assume responsibility for lost, stolen or broken personal items that are brought in. Exceptions may be consideredfor items which are considered necessary for your healthcare. These items will be formally documented. Remove all jewelry prior to surgery to prevent injury. We will not tape wedding rings/bands. If you have dentures, they may need [...] your Living Will and/or Durable Power of Cvt Rn for Healthcare. Vaccines It is recommended that you do not receive vaccines 7 days before or after surgery. Notify the Surgeon Notify your surgeon if you develop any illness (fever, cold, cough, sore throat, nausea, vomiting, skin rashes etc.) between now and surgery time Notify your surgeon and Pre-admission testing ([phone]) if you have any changes in your healthconditions or if any new medications are ordered between now and surgery.. Questions or Concerns? If you have any questions or concerns, feel free to call the Pre-Admission testing department at [phone]. We want to make sure you feel safe and have an excellent experience while you are here. Do not reply to this message through [facility] as it may not be answered promptly. [facility] [place] at [phone]; Please get dropped off at Main Entrance [facility] front desk team member and they will direct you to registration. Parking will be to the left of the buildingin the parking lot and parking garage. After surgery, you will be discharged from surgery discharge door 4. - [address] [facility] [place] [address]. DOORS OPEN AT 6:00 AM MON-MON AND 6:30 AM ON MONDAY documented in [...] under the skin Every 6 Months. 01/17/2023 docusate sodium (COLACE) 100 mg Oral Capsule Take 1 Capsule by mouth 2 times daily. 60 Capsule 2 01/16/2025 ferrous sulfate 325 mg (65 mg iron) Oral Tablet, Delayed Release (E.C.) Take 325 mg by mouth daily (with breakfast). 03/01/2024 Magnesium 200 mg Oral Tablet Take by mouth daily. Multivitamin Cmb No.21-Iron-FA (CENTRUM WOMEN) 18-400 mg-mcg Oral Tablet Take by mouth. NIFEdipine (ADALAT CC) 90 mg Oral Tablet Sustained Release Take 90 mg by mouth. Hqhlc-2-MAT-EPA- Fish Oil (FISH OIL) 1,200 (144-216) mg Oral Capsule Take by mouth. ondansetron (ZOFRAN-ODT) 4 mg Oral Tablet, Rapid Dissolve Dissolve 1 Tablet by mouth every 6 hours as needed for Nausea. 30 Tablet 01/16/2025 senna (SENOKOT) 8.6 mg Oral Tablet Take 1 Tablet by mouth daily as needed for Constipation. 30 Tablet 1 01/16/2025 traMADoL (ULTRAM) 50 mg Oral Tablet Take 1 Tablet by mouth every 6 hours as needed for Pain (surgery). 20 Tablet 01/16/2025 Vitamin D3-Menaquinone 7 25 mcg (1,000 unit)-90 mcg Oral Tablet, Rapid Dissolve Dissolve by mouth daily. docusate sodium (COLACE) 100 mg Oral Capsule Take by mouth 2 times daily. 5 metroNIDAZOLE (FLAGYL) 500 mg Oral Tablet Take 1 Tablet by mouth 2 times daily for 7 days. 14 Tablet 01/17/2025 5 oxyCODONE (ROXICODONE) 5 mg Oral Tablet Take 1 Tablet by mouth every 4 hours as needed for Acute Pain > 3 Days Medically Necessary (R52). 20 Tablet 11/11/2024 12:18 PM EDT 11/11/2024 5 documented as of this encounter Discharge Disposition Disposition Code Departure Means Destination Home or Self Care documented in this encounter Plan of Treatment Upcoming Encounters Date Type Department Care Team (Late st Contact Info) Description 02/26/2025 9:00 AM EST Office Visit [facility] [address] [address] Antonina Ji PA-C [address] [place] [address] documented as of this encounter Procedures Procedure Name Priority Date/Time Associated Diagnosis Comments BB HISTORY CHECK Routine 01/09/2025 11:3 0 AM EDT Preop testing Anemia, unspecified type Uterovaginal prolapse SURGERY DATE Routine 01/09/2025 11:30 AM EDT Preop testing Anemia, unspecified type Uterovaginal prolapse PREADMISSION TYPE AND SCREEN Routine 01/09/2025 11:30 AM EDT Preop testing Anemia, unspecified type Uterovaginal prolapse ABORH Routine 01/09/2025 11:30 AM EDT Preop testing Anemia, unspecified type Uterovaginal prolapse CBC WITH DIFF Routine 01/09/2025 11:30 AM EDT Preop testing Anemia, unspecified type Uterovaginal prolapse ANTIBODY SCREEN IGG Routine 01/09/2025 1 1:30 AM EDT Preop testing Anemia, unspecified type Uterovaginal prolapse documented in this encounter Results * BB HISTORY CHECK (01/09/2025 11:30 AM EDT) [facility] BB HISTORY CHECK (1) Previous History OK 01/09/2025 1:01 PM EDT [facility] Blood VENOUS BLOOD / Unknown Venipuncture / Unknown 01/09/2025 11:30 AM EDT 01/09/2025 12:26 PM EDT [facility] ORDERABLES Final R esult Performing Organization Address City/[facility]/ZIP Co de Phone Number [facility] [address] [place] [address] * SURGERY DATE (01/09/2025 11:30 AM EDT) [facility] Surgery Date (1) Complete 01/09/2025 1:01 PM EDT [facility] BLOOD [facility] Blood VENOUS BLOOD / Unknown Venipuncture / Unknown 01/09/2025 11:30 AM EDT 01/09/2025 12:26 PM EDT Dorota TeensSuccessN BLOOD BANK ORDERABLES Final R esult [facility] [address] [place] [address] * ANTIBODY SCREEN IGG (01/09/2025 11:30 AM EDT) Pathologist [facility] ABSC IgG Int Negative 01/09/2025 1:42 PM EDT [facility] Blood VENOUS BLOOD / Unknown Venipuncture / Unknown 01/09/2025 11:30 AM EDT 01/09/2025 12:26 PM EDT Droota Dsouza [facility] BLOOD BANK ORDERABLES Final R esult Performing Organization Address City/[facility]/ZIP Co de Phone Number [facility] [address] [place] [phone] * ABORH (01/09/2025 11:30 AM EDT) Pathologist [facility] ABORH Int A POS 01/09/2025 1:3 6 PM EDT [facility] Blood VENOUS BLOOD / Unknown Venipuncture / Unknown 01/09/2025 11:30 AM EDT 01/09/2025 12:26 PM EDT Dorota Dsouza [facility] BLOOD BANK ORDERABLES Final R esult [facility] [address] [place] [phone] * (ABNORMAL) CBC WITH DIFF (01/09/2025 11:30 AM EDT) [facility] WBC 8.2 3.7 - 10.3 x10(3)/mcL 01/09/2025 12:57 PM EDT [facility] RBC 3.31(L) 3.90 - 5.20 x10(6)/mcL 01/09/2025 12:57 PM EDT [facility] Hgb 10.1(L) 11.2 - 15.7 g/dL 01/09/2025 12:57 PM EDT [facility] Hct 31.6(L) 34.0 - 45.0 % 01/09/2025 12:57 PM EDT [facility] MCV 95.5 80.0 - 100.0 fL 01/09/2025 12:57 PM EDT [facility] MCH 30.5 26.0 - 34.0 pg 01/09/2025 12:57 PM EDT [facility] MCHC 32.0 30.7 - 35.5 g/dL 01/09/2025 12:57 PM EDT [facility] RDW 14.7 <=14.9 % 01/09/2025 12:57 PM EDT [facility] Platelet 360 155 - 369 x10(3)/mcL 01/09/2025 12:57 PM EDT [facility] MPV 8.5(L) 8.8 - 12.5 fL 01/09/2025 12:57 PM EDT [facility] Neut Percent 58.6 % 01/09/2025 12:57 PM EDT [facility] Comment:Neutrophils equals s egs plus bands Imm Gran% 0.2 % 01/09/2025 12:57 PM EDT [facility] Comment:Automated count of m etamyelocytes, myelocytes and promyelocytes. Lymph Percent 30.1 % 01/09/2025 12:57 PM EDT [facility] Emmet Percent 8.3 % 01/09/2025 12:57 PM EDT [facility] Eos Percent 2.2 % 01/09/2025 12:57 PM EDT [facility] Baso Percent 0.6 % 01/09/2025 12:57 PM EDT [facility] Neut # 4.8 1.6 - 6.1 x10(3)/mcL 01/09/2025 12:57 PM EDT [facility] Comment:Neutrophils equals s egs plus bands IMMGRAN# 0.0 0.0 - 0.1 x10(3)/mcL 01/09/2025 12:57 PM EDT [facility] Comment:Automated count of m etamyelocytes, myelocytes and promyelocytes. An absolute IG <0.1 is reported as 0.0. Lymph # 2.5 1.2 - 3.9 x10(3)/mcL 01/09/2025 12:57 PM EDT [facility] Emmet # 0.7 0.3 - 0.9 x10(3)/mcL 01/09/2025 12:57 PM EDT [facility] Eos# 0.2 0.0 - 0.5 x10(3)/mcL 01/09/2025 12:57 PM EDT [facility] Baso # 0.1 0.0 - 0.1 x10(3)/mcL 01/09/2025 12:57 PM EDT [facility] Blood VENOUS BLOOD / Unknown Venipuncture / Unknown 01/09/2025 11:30 AM EDT 01/09/2025 12:26 PM EDT Dorota Dsouza [employer] HEMATOLOGY ORDERABLES Final R esult [facility] [address] [facility] , [address] [place] [id number] documented in this encounter Visit Diagnoses Diagnosis Preop testing- Primary Preoperative examination, unspecified Anemia, unspecified type Uterovaginal prolapse Uterovaginal prolapse, unspecified documented in this encounter Historical Medications * This list may reflect changes made after this encounter. docusate sodium (COLACE) 100 mg Oral Capsule Take by mouth 2 times daily. 01/17/2025 added in this encounter Care Teams Record Producer Relationship Specialty Start Date End Date Chas Barrera [address] [facility] [address] PCP - General Family Medicine 11/08/24 documented as of this encounter
--- OUTSIDE RECORDS SUMMARY | 2025-01-16 09:03 | XMS_ITS | Encounter Summary ---
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 Referral ID Status Reason Start Date Expiration Date Visits Re quested Visits Authorized [id number] 1 1 Encounter Details Date Type Department Care Team (Latest Contact Info) Description 01/16/2025 9:03 AM EST - 01/17/2025 10:11 AM [facility] Hospital Encounter [facility] [address] [place] [address] Leta Dupont MD [address] [place] [address] [id number] Uterovaginal prolapse, incomplete Discharge Disposition: Home or Self Care Social History Tobacco Use Types Packs/Day Years Used Date Smoking Tobacco: Never Smokeless Tobacco: Never Alcohol Use Standard Drinks/Week Comments Not Currently 0 (1 standard drink = 0.6 oz pur e alcohol) [facility] Utilities Answer Date Recorded In the past [...] Date Recorded PHQ-2 Total Score 0 11/08/2024 [facility] - Occupational Stress [...] money to get more. Never true 11/08/2024 [facility] IP Transportation Answer D [...] Sign Reading Time Taken Comments Blood Pressure 157/91 01/17/2025 7:24 AM EST Pulse 77 01/17/2025 7:24 AM EST Temperature 36.3 C (97.4 F) 01/17/2025 7:24 AM EST Respiratory Rate 16 01/17/2025 7:24 AM EST Oxygen Saturation 99% 01/17/2025 7:24 AM EST Inhaled Oxygen Concentration - - Weight 50.8 kg (112 lb) 01/16/2025 5:28 PM EST Height 147.3 cm (4' 10 ) 01/16/2025 5:28 PM EST Body Mass Index 23.41 01/16/2025 5:28 PM EST documented in this encounter Functional Status * Question Answer Date of Assessment Author Little interest or pleasure in doing things 0 11/08/2024 1:08 PM EDT Tatiana Velasquez MSW Feeling down, depressed, or hopeless 0 11/08/2024 1:08 PM EDTatiana Gooden MSW PHQ-2 Total Score 0 11/08/2024 1:08 PM EDT Tatiana Velasquez MSW * PHQ-9 Total Score Answer Date of Assessment Author 0 11/08/2024 1:08 PM EDT Jagdeep Velasquez MSW * PHQ-2 Total Score Answer Date of Assessment Author 0 11/08/2024 1:08 PM EDT Jagdeep Velasquez, BREAD STACKER documented as of this encounter Discharge Summaries * Leta Dupont MD - 01/17/2025 6:33 AM EST Urogynecology Discharge Summary Patient Name: Alesha Szymanski : 1945 Admit Date: 01/16/2025 Discharge Date: 01/17/2025 Admitting Physician: Leta Dupont MD Discharge Provider: Leta Dupont MD Reason for Hospitalization: Active Hospital Problems Uterovaginal prolapse, complete *Uterovaginal prolapse, incomplete Hospital Course/Significant Findings: 79 y.o. female with a history of Uterovaginal prolapse, incomplete presented for elective Procedure(s): LeFort Colpocleisis, Posterior Repair with levator plication, vaginal biopsy, Cystoscopy . . Please see operative report for full details of the procedure. Written informed consent for surgery was obtained prior to surgery in the office. Her post-op course was unremarkable. On POD#1 her vitals were stable, she was tolerating PO intake, her pain was well controlled, and she was ambulating without difficulty. She failed a formal voiding trial. She was discharged to home with plan to follow up for office voiding trial in 1 week and for routine post op exam. Procedures Performed: Procedure(s): LeFort Colpocleisis, Posterior Repair with levator plication, vaginal biopsy, Cystoscopy . Consults: Discharge Exam: General: No distress Psych: appropriate affect Eyes: sclera normal and non-icteric ENT: Trachea midline Cardiovascular: No peripheral edema Lungs: Normal work of breathing Abdomen: soft, non-tender, non-distended Extremities: Non-tender, no erythema or swelling Discharge Diagnoses: Uterovaginal prolapse, incomplete Condition at Discharge: good Disposition: Home Discharge Medications:: Medication List START taking these medications metroNIDAZOLE 500 mg Tab Dose: 500 mg Qty: 14 Tablet Refills: 0 Commonly known as: FLAGYL 500 mg, Oral, 2 TIMES DAILY ondansetron 4 mg Tbdl Dose: 4 mg Qty: 30 Tablet Refills: 0 Commonly known as: ZOFRAN-ODT 4 mg, Oral, EVERY 6 HOURS PRN senna 8.6 mg Tab Dose: 8.6 mg Qty: 30 Tablet Refills: 1 Commonly known as: SENOKOT 8.6 mg, Oral, DAILY PRN traMADoL 50 mg Tab Dose: 50 mg Qty: 20 Tablet Refills: 0 Commonly known as: ULTRAM 50 mg, Oral, EVERY 6 HOURS PRN CHANGE how you take these medications docusate sodium 100 mg Cap Dose: 100 mg Qty: 60 Capsule Refills: 2 Commonly known as: COLACE 100 mg, Oral, 2 TIMES DAILY What changed: how much to take CONTINUE taking these medications acetaminophen 500 mg Tab Dose: 1,000 mg Qty: 40 Tablet Refills: 0 Commonly known as: TYLENOL 1,000 mg, Oral, *EVERY 6 HOURS aspirin 81 mg tablet Dose: 81 mg Refills: 0 atorvastatin 10 mg Tab Dose: 10 mg Refills: 0 Commonly known as: LIPITOR carvediloL 12.5 mg Tab Refills: 0 Commonly known as: COREG CENTRUM WOMEN 18-400 mg-mcg Tab Refills: 0 Generic drug: Multivitamin Cmb No.21-Iron-FA ELIQUIS 5 mg Tab Refills: 0 Generic drug: apixaban ferrous sulfate 325 mg (65 mg iron) Tbec Dose: 325 mg Refills: 0 Fish OiL 1,200 (144-216) mg Cap Refills: 0 Generic drug: Fulva-4-DFU-EPA-Fish Oil Magnesium 200 mg Tab Refills: 0 PROLIA 60 mg/mL Syrg Dose: 60 mg Refills: 0 Generic drug: Denosumab Vitamin D3-Menaquinone 7 25 mcg (1,000 unit)-90 mcg Tbdl Refills: 0 STOP taking these medications oxyCODONE 5 mg Tab Commonly known as: ROXICODONE ASK your doctor about these medications NIFEdipine 90 mg Tbsr Dose: 90 mg Refills: 0 Commonly known as: ADALAT CC Where to Get Your Medications These medications were sent to [facility] [address] [place] [id number] [phone] - [phone] [address] docusate sodium 100 mg Cap metroNIDAZOLE 500 mg Tab ondansetron 4 mg Tbdl senna 8.6 mg Tab traMADoL 50 mg Tab Follow Up: No follow-up provider specified. Signed: Leta Dupont MD 01/17/2025 6:33 AM documented in this encounter Discharge Instructions * Discharge Instructions* Sean Rizo MD - 01/16/2025 7:40 AM EST [facility] MD FRANCESCA Botello PA-C [address] [place] [address], [id number] Thank you for allowing us to care for you! It was a pleasure taking care of you during [facility] surgery[facility]! Dr. Little and her team are always available for any questions or concerns after your surgery. As always, you can reach our staff during normal business hours by using the [employer] experience to send us an email at: [email or web address] FOLLOW UP APPOINTMENTS Upon leaving the hospital, you should call [phone] during normal business hours to schedule follow-up appointments. You will need to be seen for the following: If you go home with a catheter, call to schedule a nurse visit in the office in 2 days (or, if yoursurgery is on a , catheter removal would be the following Monday) Six-week follow-up with Nini Ji PA-C (Dr. Little's Physician Control Clerk Subassembly) WHAT MEDICATIONS CAN I TAKE? After surgery you may resume your regular home medications. *Resume Eliquis on 01/17/25 WHAT ARE MY POST SURGERY RESTRICTIONS? You can: Walk up/down steps (hold onto railing to avoid falls) Go for short walks on a smooth surface Light activity/stretches Ride as a passenger in the car Shower Do NOT: (These restrictions apply for 6 weeks post op or until we clear you at your post op exam, unless noted differently below) Do NOT lift anything heavier than 10-15 lbs (a gallon of milk weighs about 9 lbs) No cleaning/no laundry/no vacuuming Do NOT sit in a bath tub/pool/ocean Do NOT have vaginal intercourse until your doctor tells you it is permitted Do NOT insert anything into your vagina or rectum including tampons or suppositories Exception: If you were using vaginal estrogen prior to surgery, please resume this 1 week after surgery (it is safe to insert it into the vagina using a pea- sized amount on your finger; do not use plastic applicator!) Do NOT drive a car or heavy machinery until you are no longer taking narcotic pain medication and your pain is well-controlled so that you can slam on the brake if necessary (typically patients can drive within a week after surgery as long as you meet this criteria) Speak with your physician about any other restrictions and limitations. A FEW THINGS TO REMEMBER: You should discuss with your doctor when to return to work. It is normal to have a vaginal discharge with blood for up to 6 weeks after surgery. The discharge may appear as small amounts of bright red or dark brown blood. It can also become a yellow-green color. The amount of discharge should gradually decrease with time. Some of the stitches will dissolve over time. It is normal to see suture or knots come out of the vagina over the next few weeks as these dissolve and fall out. WHAT SHOULD I EAT? To decrease post-operative nausea, try to eat small frequent meals. Eat foods high in protein such as meat, fish, eggs, and dairy products. Consider taking a single multivitamin, which you can buy ataTakes. Drink lots of fluids - about EIGHT 8-oz glasses of water each day. CONSTIPATION It is normal not to have a bowel movement for 4-5 days after surgery. However, when you do have a bowel movement, we want you to have a regular, soft daily bowel movement. Upon discharge from the hospital you will be given prescriptions for stool softeners with instructions from your doctor. PLEASECONTINUE MIRALAX TWICE DAILY, AND ADD ADDITIONAL COLACE TWICE DAILY. IF YOU HAVE NOT HAD A BOWEL MOVEMENT IN 4-5 DAYS, ADD SENNA 1-2 TIMES DAILY NEEDED TO MAINTAIN SOFT BOWEL MOVEMENTS. Other waysto help promote soft bowel movements include: Prunes/apple/raisins or other high-fiber foods Metamucil or Citrucel: one heaping tablespoon in 8oz of water twice per day Milk of magnesia, to be taken at bedtime following the directions on the label Be sure to drink at least 8 glasses of water/fluids per day -If you have problems with constipation and no bowel movement for 5-7 days after surgery and you are uncomfortable or concerned-- please call the office. -AVOID the use of rectal suppositories or enemas. -Your first few bowel movements will likely be very runny. If this occurs, slowly decrease the colace to once a day or every other day for a week. Continue to decrease slowly until bowel movements remain soft but not runny. If you stop your stool softeners all at once, you may become very constipated. WHAT ABOUT PAIN MEDICATIONS? You will be sent home with ibuprofen 600 mg tablets (unless contraindicated) and stronger pain medications containing small amounts of narcotic pain killers. Some things to remember: Unless you have a medical condition that prohibits you from taking Motrin (ibuprofen) or NSAIDs (such as kidney disease, stomach ulcers, taking blood thinners, or other condition specified by your PCP) or Tylenol (acetaminophen) (such as active liver disease), pain can often be managed well by taking scheduled doses of Motrin (ibuprofen) and Tylenol rather than waiting for the pain to get worse. If you do not have any medical conditions that prohibit you from taking the above medications, we recommend taking these medications on a scheduled basis for the first week after surgery. For instance: You can take ibuprofen 600 mg every 6 hours and Tylenol 1000 mg every 6 hours (alternate by taking ibuprofen 600 mg, then 3 hours later take tylenol 1000 mg, then 3 hours later take ibuprofen 600 mg, and so on). DO NOT TAKE MORE THAN THE RECOMMENDED DOSES. DO NOT USE MORE THAN ONE NSAID AT A TIME (such as celecoxib (Celebrex), naproxyn (Naprosyn), ibuprofen (Motrin or Advil), aspirin, or other non-steroidal anti-inflammatory medication). If your narcotic pain medication contains acetaminophen (Tylenol), DO NOT take additional tylenol Take your pain medications when you first begin feeling discomfort. Don't wait until your pain is intense to take your medications. When used as directed, you will not become addicted to the pain medications. The narcotic pain medications we send you home with may cause nausea or constipation. As you heal from surgery, you may find that you feel better when you don't take those medications. If Tylenol or Motrin relieves the pain, use those medications instead. Don't drive while taking narcotic pain medications. HOW DO I TAKE CARE OF MY INCISION? Showers (NO tub baths) are preferred for 6 weeks after surgery. If you have an abdominal incision, it is ok for this to get wet, but do not soak in a tub. If the incision appears dirty or caked, you may clean it with hydrogen peroxide on a cotton swab. You may have small plastic bandages called Steri-strips across the incision. There is no need to worry if these fall off. If they begin to curl atthe edges, simply trim with scissors. If you have had vaginal surgery, showers (NO tub baths) are preferred for 6 weeks after surgery. You may use a mild soap (such as Dove sensitive skin) and water to GENTLY clean the OUTSIDE of the vagina. DO NOT douche, insert tampons, insert suppositories, or other vaginal creams/inserts after vaginal surgery. WHAT ABOUT THE BLADDER CATHETER? It is very common to go home from the hospital with a catheter in your bladder. The surgery your doctor performed tends to cause swelling around the opening to the bladder, making it difficult for you to pass urine. If this is the case, you will be given instructions in the hospital on the care of the catheter, and will be told when to come back to the office for catheter removal (usually within 1 to 7 days). It is not unusual for it to take a few weeks for your bladder to return to normal though. The nurse in the hospital will make sure you are comfortable with your catheter before you go home. After the catheter is removed, try to urinate on a regular basis. A good way to do this is to try to urinate every 3-4 hours during the day. By urinating on a scheduled basis you may prevent bladder spasms. You do not have to wake up during the night to do this drill. WHAT SHOULD I WATCH OUT FOR? There are several warning signs you should watch for: FEVER GREATER THAN 100.4??F LEG PAIN OR SWELLING SHORTNESS OF BREATH CHEST PAIN SHAKING CHILLS SEVERE PAIN NAUSEA WITH VOMITING PROBLEMS WITH YOUR INCISION SUCH REDNESS OR DISCHARGE VAGINAL BLEEDING HEAVIER THAN WHAT WAS A HEAVY MENSTRUAL CYCLE INCREASE IN VAGINAL DISCHARGE, ESPECIALLY WITH A STRONG ODOR INABILITY TO URINATE For questions or concerns, please call: (7:30 a.m. to 4:00 p.m. Monday-Monday) [facility] For non-life threatening emergencies only outside of normal business hours, please call the above number and follow prompts for the triage nurse. They will forward any urgent matters to the doctor jeffry. For any life-threatening emergencies call 911. [facility] Discharge Instructions - Following Anesthesia We appreciate [...] our office at . Get Well Soon! [place] [facility] documented in this encounter Medications at Time [...] Sustained Release Take 90 mg by mouth. Uhzmt-7-CNB-EPA- Fish Oil (FISH OIL) 1,200 (144-216) mg [...] Tablet, Rapid Dissolve Dissolve by mouth daily. metroNIDAZOLE (FLAGYL) 500 mg Oral Tablet Take 1 Tablet by mouth 2 times daily for 7 days. 14 Tablet 01/17/2025 01/24/2025 documented as of this encounter Ordered Prescriptions Prescription Sig Dispense Quantity Refills Last Filled Start Date End Date traMADoL (ULTRAM) 50 mg Oral Tablet Take 1 Tablet by mouth every 6 hours as needed for Pain (surgery). 20 Tablet 01/16/2025 senna (SENOKOT) 8.6 mg Oral Tablet Take 1 Tablet by mouth daily as needed for Constipation. 30 Tablet 1 01/16/2025 ondansetron (ZOFRAN-ODT) 4 mg Oral Tablet, Rapid Dissolve Dissolve 1 Tablet by mouth every 6 hours as needed for Nausea. 30 Tablet 01/16/2025 docusate sodium (COLACE) 100 mg Oral Capsule Take 1 Capsule by mouth 2 times daily. 60 Capsule 2 01/16/2025 metroNIDAZOLE (FLAGYL) 500 mg Oral Tablet Take 1 Tablet by mouth 2 times daily for 7 days. 14 Tablet 01/17/2025 documented in this encounter Discharge Disposition Disposition Code Departure Means Destination Comment s Home or Self Alf documented in this encounter Progress Notes * Radha Gonzáles RN - 01/17/2025 10:56 AM EST 01/17/25 1055 Ongoing Discharge Planning Evaluation Actual Discharge Plan 01/11/25 CC: Attempted to meet with pt and pt had already discharged from unit. * Melisa Keller RN - 01/17/2025 5:23 AM EST Voiding trial instructions followed. Bladder emptied, and then back filled with 300 ml NS, adam removed. Patient did not pass voiding trial. Dr. Dupont made aware. 14 polish adam replaced and patient will follow up outpatient. documented in this encounter H&P Notes * Alfredo Collier NP - 01/16/2025 9:08 AM EST [facility] History and Physical Name: Alesha Szymanski ADDRESS: [address] [place] [address] [place] [id number] : 1945 AGE: 79 y.o. Assessment: Uterovaginal prolapse, incomplete [N81.2] Plan: Procedure(s): LeFort Colpocleisis, Posterior Repair with levator plication, Cystoscopy . per Leta Dupont MD Admitting Physician: Leta Dupont MD Date of Admit: 01/16/2025 Subjective SUBJECTIVE Chief Complaint: Uterovaginal prolapse, incomplete [N81.2] History of Present Illness: Patient is a 79 y.o. female with Uterovaginal prolapse, incomplete [N81.2] who presents for surgical intervention. Past 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[1] Surgical History[2] Prior to Admission medications Medication Sig Start Date End Date Last Dose Authorizing Provider acetaminophen (TYLENOL) 500 mg Oral Tablet Take 2 Tablets by mouth every 6 hours. 11/11/24 Regino Lopez MD apixaban (ELIQUIS) 5 mg Oral Tablet Take by mouth 2 times daily. Provider, Historical aspirin 81 mg Oral tablet Take 81 mg by mouth every 24 hours. 03/29/24 Provider, Historical atorvastatin (LIPITOR) 10 mg Oral Tablet Take 10 mg by mouth daily. Provider, Historical carvediloL (COREG) 12.5 mg Oral Tablet Take by mouth 2 times daily (with meals). Provider, Historical Denosumab (PROLIA) 60 mg/mL SubQ Syringe Inject 60 mg under the skin Every 6 Months. 01/17/23 Provider, Historical docusate sodium (COLACE) 100 mg Oral Capsule Take by mouth 2 times daily. Provider, Historical ferrous sulfate 325 mg (65 mg iron) Oral Tablet, Delayed Release (E.C.) Take 325 mg by mouth daily (with breakfast). 03/01/24 Provider, Historical Magnesium 200 mg Oral Tablet Take by mouth daily. Provider, Historical Multivitamin Cmb No.21-Iron-FA (CENTRUM WOMEN) 18-400 mg-mcg Oral Tablet Take by mouth. Provider, Historical NIFEdipine (ADALAT CC) 90 mg Oral Tablet Sustained Release Take 90 mg by mouth. Patient not taking: Reported on 01/09/2025 Provider, Historical Nppas-6-BRX-EPA-Fish Oil (FISH OIL) 1,200 (144-216) mg Oral Capsule Take by mouth. Provider, Historical oxyCODONE (ROXICODONE) 5 mg Oral Tablet Take 1 Tablet by mouth every 4 hours as needed for Acute Pain > 3 Days Medically Necessary (R52). Patient not taking: Reported on 01/09/2025 11/11/24 Regino Lopez MD Vitamin D3-Menaquinone 7 25 mcg (1,000 unit)-90 mcg Oral Tablet, Rapid Dissolve Dissolve by mouth daily. Provider, Historical Allergies[3] Social History[4] Family History[5] Active Hospital Problems Diagnosis *Uterovaginal prolapse, incomplete Blood pressure (!) 180/76, pulse 80, temperature 97.3 ??F (36.3 ??C), temperature source Forehead, resp. rate 16, SpO2 99%.Pain: 0/10 Anesthesia physician to follow/manage Bp Review of Systems: The listed systems were reviewed and reveal the following in addition to any already discussed in the HPI: Review of Systems Constitutional: Negative. Negative for chills, fever and weight loss. HENT: Positive for hearing loss. Negative for congestion, ear discharge, ear pain, nosebleeds and sore throat. ALATNA bilaterally Eyes: Negative for blurred vision, double vision, pain, discharge and redness. Respiratory: Negative. Negative for cough, hemoptysis, sputum production, shortness of breath and wheezing. Chronic Cough Allergic rhinitis (+) Pulmonary embolism (H/O 03/2024 after colon resection): States she is doing well. Cardiovascular: Negative for chest pain, palpitations, orthopnea and leg swelling. Hypertension: well controlled Hyperlipidemia CHF: Arrhythmias (PAF): atrial fibrillation, SVT and RBBB Valvular problems/murmurs (Mild AR): /AI, Murmur and MS/MR Gastrointestinal: Negative. Admit Date: 11/07/2024 Discharge Date: 11/11/2024 Patient underwent reversal of Neal's with takedown of colostomy. Genitourinary: Negative. Negative for dysuria, flank pain, frequency, hematuria and urgency. Denies any changes since exam per Dr Dupont. Denies pain or LUTs Musculoskeletal: Negative. Skin: Negative. Negative for itching and rash. Neurological: Negative for dizziness, seizures, weakness and headaches. Endo/Heme/Allergies: Negative. Anticoagulation therapy (Eliquis): Has not taken this medication or ASA for the past two days. Psychiatric/Behavioral: Negative for depression. The patient is nervous/anxious. Objective OBJECTIVE Physical Exam: There is no height or weight on file to calculate BMI. There is no height or weight on file to calculate BSA. Physical Exam Vitals and nursing note reviewed. Exam conducted with a tonal regulator present. Constitutional: General: She is not in acute distress. Appearance: Normal appearance. She is well-developed. She is not ill-appearing or diaphoretic. HENT: Head: Normocephalic. Nose: Nose normal. No congestion or rhinorrhea. Mouth/Throat: Mouth: Mucous membranes are moist. Pharynx: Oropharynx is clear. No oropharyngeal exudate or posterior oropharyngeal erythema. Eyes: General: No scleral icterus. Right eye: No discharge. Left eye: No discharge. Conjunctiva/sclera: Conjunctivae normal. Pupils: Pupils are equal, round, and reactive to light. Neck: Thyroid: No thyromegaly. Vascular: No JVD. Trachea: No tracheal deviation. Cardiovascular: Rate and Rhythm: Normal rate and regular rhythm. Pulses: Normal pulses. Heart sounds: Normal heart sounds. No murmur heard. No friction rub. No gallop. Pulmonary: Effort: Pulmonary effort is normal. No respiratory distress. Breath sounds: Normal breath sounds. No stridor. No wheezing, rhonchi or rales. Chest: Chest wall: No tenderness. Abdominal: General: Bowel sounds are normal. There is no distension. Palpations: Abdomen is soft. Tenderness: There is no abdominal tenderness. There is no guarding. Genitourinary: Comments: Deferred Musculoskeletal: General: No tenderness or deformity. Normal range of motion. Cervical back: Normal range of motion and neck supple. Lymphadenopathy: Cervical: No cervical adenopathy. Skin: General: Skin is warm and dry. Capillary Refill: Capillary refill takes less than 2 seconds. Coloration: Skin is not pale. Findings: No erythema or rash. Neurological: General: No focal deficit present. Mental Status: She is alert and oriented to person, place, and time. Mental status is at baseline. Cranial Nerves: No cranial nerve deficit. Sensory: No sensory deficit. Motor: No weakness. Coordination: Coordination normal. Gait: Gait normal. Psychiatric: Mood and Affect: Mood normal. Behavior: Behavior normal. Labs: Latest Reference Range & Units 11/11/24 06:29 01/09/25 11:30 WBC 3.7 - 10.3 x10(3)/mcL 6.7 8.2 RBC 3.90 - 5.20 x10(6)/mcL 3.30 (L) 3.31 (L) Hgb 11.2 - 15.7 g/dL 10.6 (L) 10.1 (L) Hct 34.0 - 45.0 % 32.6 (L) 31.6 (L) MCV 80.0 - 100.0 fL 98.8 95.5 MCH 26.0 - 34.0 pg 32.1 30.5 MCHC 30.7 - 35.5 g/dL 32.5 32.0 RDW <=14.9 % 13.8 14.7 Platelets 155 - 369 x10(3)/mcL 284 360 MPV 8.8 - 12.5 fL 8.4 (L) 8.5 (L) Imm Gran% % 0.2 IMMGRAN# 0.0 - 0.1 x10(3)/mcL 0.0 Neut Percent % 58.6 Lymph Percent % 30.1 Towns Percent % 8.3 Eos Percent % 2.2 Baso Percent % 0.6 Neut# 1.6 - 6.1 x10(3)/mcL 4.8 Lymph# 1.2 - 3.9 x10(3)/mcL 2.5 Towns# 0.3 - 0.9 x10(3)/mcL 0.7 Eos# 0.0 - 0.5 x10(3)/mcL 0.2 Baso# 0.0 - 0.1 x10(3)/mcL 0.1 (L): Data is abnormally low Latest Reference Range & Units 11/09/24 09:56 11/10/24 06:11 11/11/24 06:29 01/09/25 11:30 Sodium 136 - 145 mmol/L 134 (L) Potassium 3.5 - 5.0 mmol/L 3.7 Chloride 98 - 107 mmol/L 99 CO2 22 - 29 mmol/L 23 Calcium 8.8 - 10.4 mg/dL 9.4 Glucose 70 - 99 mg/dL 111 (H) BUN 8 - 23 mg/dL 15 Creatinine, Ser 0.51 - 1.30 mg/dL 0.99 eGFR (CKD-EPIcr 2020) >=60 mL/min/1.73 m2 58 (L) Anion Gap 7 - 16 mmol/L 12 Hct 34.0 - 45.0 % 33.9 (L) 32.7 (L) 32.6 (L) 31.6 (L) (L): Data is abnormally low (H): Data is abnormally high Radiology: EKG:EKG 09/17/24 EKG scanned into media Reviewe: sinus with RBBB Scanned into media ECHO 03/2024: EF 70%, Mild hypokinesis lV apex Mild LA dilation Mod MR Mild AI and mild TR Alfredo Collier, LMSW 01/16/2025 [1] Past 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: Diagnosis Date Anemia Aortic valve regurgitation Ascites Colostomy status (HCC) reversed Encounter for blood transfusion Essential (primary) hypertension Gastroesophageal reflux disease without esophagitis Irregular heart beat History of Afib Metabolic encephalopathy Mixed hyperlipidemia Mixed stress and urge urinary incontinence Paroxysmal atrial fibrillation (HCC) Perforation and abscess of large intestine concurrent with and due to diverticulitis Pleural effusion Prolapsed, uterovaginal, incomplete Pulmonary embolism (HCC) Urinary tract infection [2] Past Surgical History: Procedure Laterality Date APPENDECTOMY 1996 COLON SURGERY 03/13/2024 COLONOSCOPY OTHER SURGICAL HISTORY Appendectomy 1996; Colectomy 04/06; colostomy reversal 11/04 [3] No Known Allergies [4] Social History Socioeconomic History Marital status: Tobacco Use Smoking status: Never Smokeless tobacco: Never Vaping Use Vaping status: Never Used Substance and Sexual Activity Alcohol use: Not Currently Drug use: Not Currently Social Drivers of Health Financial Resource Strain: Low Risk (11/08/2024) Overall Financial Resource Strain (CARDIA) Difficulty of Paying Living Expenses: Not hard at all Food Insecurity: No Food Insecurity (11/08/2024) Hunger Vital Sign Worried About Running Out of Food in the Last Year: Never true Ran Out of Food in the Last Year: Never true Transportation Needs: No Transportation Needs (11/08/2024) [facility] IP Transportation In the past 12 months, has lack of reliable transportation kept you from medical appointments, meetings, work or from getting things needed for daily living?: No Physical Activity: Inactive (11/08/2024) Exercise Vital Sign Days of Exercise per Week: 0 days Minutes of Exercise per Session: 0 min Stress: No Stress Concern Present (11/08/2024) [employer] [place] [employer] - Occupational Stress Questionnaire Feeling of Stress : Not at all [5] Family History Problem Relation Age of Onset Anesth Problems Neg Hx documented in this encounter Procedure Notes * Leta Dupont MD - 01/16/2025 12:42 PM EST Images from the original note were not included. OPERATIVE NOTE Alesha Szymanski January 16, 2025 There is no height or weight on file to calculate BMI. PRE-OP DIAGNOSIS: Uterovaginal prolapse, incomplete [N81.2] POST-OP DIAGNOSIS: Uterovaginal prolapse, incomplete [N81.2] PROCEDURE(S): Procedure(s): Partial colpectomy, LeFort Colpocleisis, Posterior Repair with levator plication, vaginal biopsy, Cystoscopy . SURGEON(S): Surgeons and Role: * Leta Dupont MD - Primary MOTHER REPAIRER(S): OR staff ANESTHESIA: General SPECIMENS: ID Type Source Tests Collected by Time Destination 1 : vaginal biopsy Tissue Vagina PATHOLOGY TISSUE REQUEST Leta Dupont MD 01/16/2025 1104 IMPLANTS: * No implants in log * EBL: 10 mL FINDINGS: EUA: NEFG. Pessary removed prior to prepping. In the posterior fornix there was a 4 cm x 2 cm area of friable granulation tissue. Complete procidentia. Genital Hiatus: widened. Intra-operative cystoscopy demonstrated redundant but otherwise normal appearing bladder mucosa with moderate trabeculations in the bladder base, and no concerning tumors, stones, lesions or foreign bodies were identified. No suture or injury present within the bladder. Normal appearing trigone with bilateral ureteral orifices. There was vigorous efflux of urine from the bilateral ureteral orifices. Complications: None DISPOSITION: Taken to PACU in good condition INDICATIONS: Alesha Szymanski is a 79 y.o. female with bothersome stage III pelvic organ prolapse desiring surgical management. She was counseled on the risks, benefits and alternatives to surgery and written informed consent was obtained in the office. Please see office note for full details of counseling. DESCRIPTION OF PROCEDURE: The patient was brought to the operating room. Oral pyridium was previously administered in the pre-operative bay. General anesthesia was induced without difficulty. A time out was completed and confirmed the correct patient and procedure. She was placed in the dorsal lithotomy position in [facility]ane stirrups. She was prepped and draped in the normal sterile fashion. A Adam catheter was placed in the bladder. PARTIAL COLPECTOMY, LEFORT COLPOCLEISIS The cervix was grasped with an Allis clamp. The vaginal epithelium was then infiltrated with 1% lidocaine with dilute epinephrine. A rectangular portion of the anterior vaginal epithelium was sharplyincised. The epithelium was carefully dissected from the underlying endopelvic fascia from just above the cervix to the UVJ with care to leave behind as much connective tissue as possible. A biopsy of the granulation tissue in the posterior fornix was sent to confirm this was simply granulation tissue. After debriding the granulation tissue in the posterior fornix and cauterizing the tissue to promote normal tissue growth with excellent hemostasis noted, the posterior vaginal epithelium was dissected free in a similar fashion to approximately 3-4 cm proximal to the hymen. I did start the apical portion of the partial colpectomy just distal to the above describe area of granulation tissue toensure healthy tissue edges for creation of the channels. A 2 cm strip of vaginal epithelium remained intact bilaterally to create drainage channels. The anterior and posterior vaginal epithelium were closed together over the cervix using 2-0 Vicryl in a running fashion, allowing drainage of uterine and cervical fluid into the planned lateral channels. GelFoam was inserted into the tunnel over the cervix to promote continued hemostasis of the granulation tissue, as she will resume Eliquis on POD#1. The lateral anterior and posterior wall vaginal epithelial incisions were then closed together,and approximated into channels using 2-0 Vicryl sutures in a simple running fashion. A series of vertical imbrication sutures of 0 Vicryl were then used to plicate the connective tissues, closing thevaginal space and reducing the prolapse, starting near the apex and proceeding distally. As the prolapse was further reduced the anterior and posterior vaginal wall epithelial incisions continued to be closed to extend the channels laterally. The distal vaginal incision was closed with 2-0 running Vicryl sutures. Good hemostasis was noted. Cystoscopy was performed at this point, with normal findings noted above. The Adam catheter was then reinserted. POSTERIOR REPAIR WITH LEVATOR PLICATION Attention was then turned to the perineal repair with levatorplasty to narrow the genital hiatus. Adiamond-shaped incision was made over the distal posterior vaginal wall and upper perineal body after first injecting 1% lidocaine with dilute epinephrine. The intervening vaginal and perineal epithelium was excised. The distal posterior vaginal mucosa was elevated and the distal rectovaginal fascial tissues and perirectal tissues were dissected sharply away from the overlying vaginal mucosa to the level of the pelvic floor muscles on each side. 2-0 Stratafix was then used to plicate the rectovaginal septum in the midline to support the distal posterior vaginal wall. Two interrupted 0 PDS sutures were placed to plicate the medial levator muscles together just inside the hymen. The vaginal incision was then closed using a running 2-0 Vicryl suture to the vestibular fossa. The perineal bodywas reinforced using two interrupted 0 Vicryl sutures, reapproximating the transverse perineal muscles and bulbospongiosus in the midline. The perineal skin was closed with the remaining 2-0 Vicryl suture in a running fashion. A rectal exam confirmed there was no evidence of penetration of the rectum by any of the sutures. Exparel was injected in the perineum for post op pain control. All counts were correct times two. The patient tolerated the procedure without difficulty. She was taken to the recovery room in good condition. Leta Dupont MD Date: 01/16/2025 * Leta Dupont MD - 01/16/2025 12:37 PM EST [facility] OPERATIVE/PROCEDURE NOTE Alesha Szymanski January 16, 2025 There is no height or weight on file to calculate BMI. PRE-OP DIAGNOSIS: Uterovaginal prolapse, incomplete [N81.2] POST-OP DIAGNOSIS: Uterovaginal prolapse, incomplete [N81.2] PROCEDURE(S): Procedure(s): Partial colpectomy, LeFort Colpocleisis, Posterior Repair with levator plication, vaginal biopsy, Cystoscopy . SURGEON(S): Surgeons and Role: * Leta Dupont MD - Primary MOTHER REPAIRER(S): OR staff ANESTHESIA: General SPECIMENS: ID Type Source Tests Collected by Time Destination 1 : vaginal biopsy Tissue Vagina PATHOLOGY TISSUE REQUEST Leta Dupont MD 01/16/2025 1104 ESTIMATED BLOOD LOSS (mls): 10 *EBL MUST be documented as a numeric value FINDINGS: EUA: NEFG. Pessary removed prior to prepping. In the posterior fornix there was a 4 cm x 2 cm area of friable granulation tissue. Complete procidentia. Genital Hiatus: widened. Intra-operative cystoscopy demonstrated redundant but otherwise normal appearing bladder mucosa with moderate trabeculations in the bladder base, and no concerning tumors, stones, lesions or foreign bodies were identified. No suture or injury present within the bladder. Normal appearing trigone with bilateral ureteral orifices. There was vigorous efflux of urine from the bilateral ureteral orifices. OTHER INFO: none DISPOSITION/POST PROC COURSE: stable to recovery Leta Dupont MD Date: 01/16/2025 documented in this encounter Miscellaneous Notes * Utilization Review Notes - Melisa Cruz RN - 01/17/2025 9:56 AM EST CONT'D STAY REVIEW ON FT NATHEN 3SW TELEMETRY FOR S/P Uterovaginal prolapse, complete ; 01/16/25 Partial colpectomy, LeFort Colpocleisis, Posterior Repair with levator plication, vaginal biopsy, Cystoscopy + OBS ORDER ON CHART ADMIT 01/16/25 TELEMETRY, SURGERY FOLLOWING, ROUTINE POST OP ORDERS D/C PLAN: PENDING FURTHER ASSESSMENTS. * Utilization Review Notes - Jennifer Howell RN - 01/16/2025 3:00 PM EST ADMISSION REVIEW ON TELE UNIT OBS ORDER OBS EV MANAGEMENT PT ADMITTED OBS ON 01/16 01/16--PER OP NOTE-- PRE-OP DIAGNOSIS: Uterovaginal prolapse, incomplete [N81.2] POST-OP DIAGNOSIS: Uterovaginal prolapse, incomplete [N81.2] PROCEDURE(S): Procedure(s): Partial colpectomy, LeFort Colpocleisis, Posterior Repair with levator plication, vaginal biopsy, Cystoscopy DC PLAN: SW FOLLOWING FOR DC NEEDS documented in this encounter Plan of Treatment Upcoming Encounters Date Type Department Care Team (Late st Contact Info) Description 02/26/2025 9:00 AM EST Office Visit [facility] [address] [id number] Antonina Ji PA-C [address] [place] [id number] Pending Results Name Type Priority Associated Diagnoses Date /Time ECG AND WAVEFORMS - TELEMETRY Point of Care Testing Routine 01/17/2025 7:01 AM EST documented as of this encounter Procedures Procedure Name Priority Date/Time Associated Diagnosis Comments SCANNED RHYTHM STRIPS 01/17/2025 9:00 AM EST ECG AND WAVEFORMS - TELEMETRY Routine 01/17/2025 7:01 AM EST ECG AND WAVEFORMS - TELEMETRY Routine 01/16/2025 9:26 PM EST IP CONSULT TO SOCIAL WORK Routine 2024 4:07 PM EST ECG AND WAVEFORMS - TELEMETRY Routine 01/16/2025 1:53 PM EST ADMIT Routine 01/16/2025 12:39 PM EST PATHOLOGY TISSUE REQUEST Routine 025 11:04 AM EST Uterovaginal prolapse, incomplete VAGINAL BIOPSY 01/16/2025 10:26 AM EST Uterovaginal prolapse, incomplete AR CYSTOURETHROSCOPY 01/16/2025 10:26 AM EST Uterovaginal prolapse, incomplete LEVATOR PLICATION 01/16/2025 10: 26 AM EST Uterovaginal prolapse, incomplete AR POST COLPORRHAPHY RECTOCELE W/WO PERINEORRHAPHY 01/16/2025 10:26 AM EST Uterovaginal prolapse, incomplete AR COLPOCLEISIS LE FORT TYPE 01/16/2025 10:26 AM EST Uterovaginal prolapse, incomplete documented in this encounter Results * SCANNED RHYTHM STRIPS (01/17/2025 9:00 AM EST) Anatomical Region Laterality Modality Other 01/17/2025 9:00 AM EST us Unknown Provider IMG ECG ORDERABLES Final Result * ECG AND WAVEFORMS - TELEMETRY (01/16/2025 9:26 PM EST) ECG INTERPRET [facility] 01/16/2025 9:26 PM EST Narrative [facility] - 01/16/2025 9:30 PM EST PVC'S (AM) ROUTINE AR 0.15 QRS 0.12 RR 0.81 QT 0.38 QTc 0.42 See Clinical Report link for waveform capture us Unknown Provider POINT OF CARE CARDIOLOGY Final Result Performing Organization Address City/[facility]/ZIP Co de Phone Number [facility] [address] [place] [address] * ECG AND WAVEFORMS - TELEMETRY (01/16/2025 1:53 PM EST) ECG INTERPRET [facility] 01/16/2025 1:53 PM EST Narrative [facility] - 01/16/2025 1:59 PM EST ROUTINE//AC AR 0.14 QRS 0.15 RR 0.79 QT 0.41 QTc 0.46 See Clinical Report link for waveform capture us Unknown Provider POINT OF CARE CARDIOLOGY Final Result Performing Organization Address City/[facility]/ZIP Co de Phone Number [facility] [address] [place] [address] * PATHOLOGY TISSUE REQUEST (01/16/2025 11:04 AM EST) CASE REPORT Surgical Pathology Case: [id number] Authorizing Provider: Leta Dupont MD Collected: 01/16/2025 1104 Ordering Location: [facility] Received: 01/16/2025 1256 Pathologist: Terri Burks MD Specimen: Vagina, vaginal biopsy 01/17/2025 2:16 PM EST [facility] FINAL DIAGNOSIS Vaginal biopsy: - Granulation tissue. - Negative for malignancy. 01/17/2025 2:16 PM EST [facility] at 1416 EST GROSS DESCRIPTION The specimen is received in formalin, labeled with the patient's name, medical record number, and vaginal biopsy . It consists of a 0.6 x 0.4 x 0.3 cm crocker-pink tissue fragment. The possible margin is inked blue and the specimen is entirely submitted in cassette A1. INGA Escalante PA(ASCP) 01/16/2025 01/17/2025 2:[address] [facility] MICROSCOPIC DESCRIPTION The microscopic examination may have been rendered in whole, or in part, by analyzing high-resolutio n digital images (whole slide images) on the [employer] Digital Pathology platform validated at [facility]. 01/17/2025 2:16 PM EST [facility] EMBEDDED IMAGES 01/17/2025 2:16 PM EST [facility] Tissue VAGINAL STRUCTURE / Unknown 01/16/2025 11:04 AM EST 01/16/2025 12:56 PM EST us Leta Dupont MD PATHOLOGY ORDERABLES Fi nal Result [facility] [address] [place] [address] [id number] documented in this encounter Visit Diagnoses Diagnosis Uterovaginal prolapse, incomplete- Primary Uterovaginal prolapse, incomplete Uterovaginal prolapse, complete documented in this encounter Admitting Diagnoses Diagnosis Uterovaginal prolapse, incomplete Uterovaginal prolapse, complete documented in this encounter Administered Medications Inactive Administered Medications - up to 1 most recent administrations Medication Order MAR Action Action Date Dose Rate Site acetaminophen (TYLENOL) tablet 1,000 mg 1,000 mg, Oral, PREPROCEDURE, 1 dose, Starting on Mon01/16/25 at 0936, Until Mon01/16/25 at 0958, Coanalgesic, Do not give if patient received acetaminophen within the last 6 hours Maximum adult dose of acetaminophen is 4000 mg from all sources in 24 hours., Pre-op (Holding/SDS Meds) Given 01/16/2025 9:58 AM EST 1,000 mg acetaminophen (TYLENOL) tablet 1,000 mg 1,000 mg, Oral, EVERY 6 HOURS SCHEDULED (4 times per day), First dose on Mon01/16/25 at 1800, Until Discontinued, Maximum adult dose of acetaminophen is 4000 mg from all sources in 24 hours., Post-op Given 01/17/2025 1:31 AM EST 1,000 mg aprepitant (EMEND) capsule 40 mg 40 mg, Oral, ONCE PREPROCEDURE, 1 dose, On Mon01/16/25 at 0945, Pre-op (Holding/SDS Meds) Given 01/16/2025 9:58 AM EST 40 mg aspirin chewable tablet 81 mg 81 mg, Oral, EVERY 24 HOURS SCHEDULED (Daily), First dose on Mon01/17/25 at 0900, Until Discontinued, Post-op Given 01/17/2025 9:02 AM EST 81 mg atorvastatin (LIPITOR) tablet 10 mg 10 mg, Oral, DAILY, First dose on Mon01/16/25 at 1530, Until Discontinued, Post-op Given 01/17/2025 9:02 AM EST 10 mg carvediloL (COREG) tablet 12.5 mg 12.5 mg, Oral, 2 TIMES DAILY WITH MEALS, First dose on Mon01/16/25 at 1800, Until Discontinued, Take with a meal., Post-op Given 01/17/2025 9:01 AM EST 12.5 mg docusate sodium (COLACE) capsule 100 mg 100 mg, Oral, 2 TIMES DAILY, First dose on Mon01/16/25 at 2100, Until Discontinued, Do not crush or chew., Post-op Given 01/17/2025 9:02 AM EST 100 mg granisetron (KYTRIL) injection 1 mg 1 mg, Intravenous, ONCE PREPROCEDURE, 1 dose, On Yohana 01/16/25 at 0945, Pre-op (Holding/SDS Meds) Given 01/16/2025 9:58 AM EST 1 mg lactated ringers infusion Intravenous, at 50 mL/hr, PREPROCEDURE CONTINUOUS, Starting on Yohana 01/16/25 at 0936, Until Yohana 01/16/25 at 1352, To be given in SDS/Pre-op Holding Area, Pre-op (Holding/SDS Meds) IV Restarted 01/16/2025 10:26 AM EST morphine injection 2 mg 2 mg, Intravenous, EVERY 2 HOURS PRN, Starting on Yohana 01/16/25 at 1356, Until 01/17/25 at 1507, Pain Unrelieved by Oral Opioid Therapy, Begin with lowest dose unless otherwise directed. Reassess pain in 15 minutes. If pain unrelieved, remainder of dose may be given to patient., Post-op morphine injection 4 mg 4 mg, Intravenous, EVERY 2 HOURS PRN, Starting on Yohana 01/16/25 at 1356, Until 01/17/25 at 1507, Pain Unrelieved by Oral Opioid Therapy, Begin with lowest dose unless otherwise directed. Reassess pain in 15 minutes. If pain unrelieved, remainder of dose may be given to patient., Post-op ondansetron (ZOFRAN) injection 4 mg 4 mg, Intravenous, EVERY 6 HOURS PRN, Starting on Yohana 01/16/25 at 1356, Until Mon01/17/25 at 1507, Nausea, Vomiting, First line antiemetic. Give IV if patient not tolerating PO. If patient received granisetron (KYTRIL) pre-op, may give 8 hours after dose., Post-op ondansetron (ZOFRAN) tablet 4 mg 4 mg, Oral, EVERY 6 HOURS PRN, Starting on Yohana 01/16/25 at 1356, Until 01/17/25 at 1507, Nausea, First line antiemetic. If patient received granisetron (KYTRIL) pre-op, may give 8 hours after dose., Post-op phenazopyridine (PYRIDIUM) tablet 200 mg 200 mg, Oral, ONCE, 1 dose, On Yohana 01/16/25 at 0945, 1 tab po when patient is checked in with small sip of water., Pre-op (Nursing), Dx: 1. Uterovaginal prolapse, incompleteIndications:Uterovag inal prolapse, incomplete Given 01/16/2025 9:58 AM EST 200 mg polyethylene glycol (GLYCOLAX, MIRALAX) packet 17 g 17 g, Oral, 2 TIMES DAILY, First dose on Yohana 01/16/25 at 2100, Until Discontinued, Mix in 8 oz of water, Post-op Given 01/17/2025 9:03 AM EST 17 g promethazine (PHENERGAN) 12.5 mg in sodium chloride 0.9% 10 mL injection 12.5 mg, Intravenous, EVERY 4 HOURS PRN, Starting on Yohana 01/16/25 at 1356, Until Mon01/17/25 at 1507, Breakthrough Nausea/Vomiting, Second line antiemetic. Give IV if patient not tolerating PO. VESICANT , Post-op promethazine (PHENERGAN) tablet 12.5 mg 12.5 mg, Oral, EVERY 4 HOURS PRN, Starting on Yohana 01/16/25 at 1356, Until Mon01/17/25 at 1507, Breakthrough Nausea/Vomiting, Second line antiemetic., Post-op sodium chloride 0.9% syringe Intravenous, EVERY 12 HOURS SCHEDULED (2 times per day), First dose on Yohana 01/16/25 at 2100, Until Discontinued, Flush with 3-5 mL saline for PERIPHERAL saline lock maintenance., Post-op Given 01/17/2025 9:09 AM EST 10 mL documented in this encounter Discontinued Medications Medication Sig Discontinue Reason Start Date End Da te oxyCODONE (ROXICODONE) 5 mg Oral Tablet Take 1 Tablet by mouth every 4 hours as needed for Acute Pain > 3 Days Medically Necessary (R52). Stop Taking at Discharge 11/11/2024 01/17/2025 docusate sodium (COLACE) 100 mg Oral Capsule Take by mouth 2 times daily. Stop Taking at Discharge 01/17/2025 documented as of this encounter Active and Recently Administered Medications Times are shown in EST. Scheduled Medication Order 01/15/2025 01/16/202501/1701/17/2025 acetaminophen (TYLENOL) tablet 1,000 mg 1,000 mg, Oral, EVERY 6 HOURS SCHEDULED (4 times per day), First dose on Yohana 01/16/25 at 1800, Until Discontinued, Maximum adult dose of acetaminophen is 4000 mg from all sources in 24 hours., Post-op 1636 (Given - Provider: Teofilo Nagel RN) 0131 (Given - Provider: Alexandra Muñoz RN)0653 (Not Given - Provider: Melisa Keller RN - Reason: Patient Declined) aprepitant (EMEND) capsule 40 mg (COMPLETED) 40 mg, Oral, ONCE PREPROCEDURE, 1 dose, On Yohana 01/16/25 at 0945, Pre-op (Holding/[facility] Meds) 0958 (Given - Provider: Madhavi Leal RN) aspirin chewable tablet 81 mg 81 mg, Oral, EVERY 24 HOURS SCHEDULED (Daily), First dose on Mon01/17/25 at 0900, Until Discontinued, Post-op 09 (Given - Provid er: Ibeth Kaur, [employer] Counsel[employer]) atorvastatin (LIPITOR) tablet 10 mg 10 mg, Oral, DAILY, First dose on Yohana 01/16/25 at 1530, Until Discontinued, Post-op 1637 (Given - Provider: Teofilo Nagel RN) 0902 (Given - Provider: Ibeth Kaur, [employer] Counsel[employer]) carvediloL (COREG) tablet 12.5 mg 12.5 mg, Oral, 2 TIMES DAILY WITH MEALS, First dose on Yohana 01/16/25 at 1800, Until Discontinued, Take with a meal., Post-op 1636 (Given - Provider: Teofilo Nagel RN) 0901 (Given - Provider: Ibeth Kaur, [employer] Counselor) ceFAZolin (ANCEF) 2 g in sterile water 20 mL IVP (COMPLETED) 2 g, Intravenous, ONCE PREPROCEDURE, 1 dose, On Yohana 01/16/25 at 0945, Give 30 minutes prior to procedure. For patients weighing less than (<) 120 kg. Draw up 5.5 mL of Sterile Water for Injection and inject into one ceFAZolin 2 g vial. Shake vials until powder is completely dissolved. Then further dilute to a total volume of 20 mL for IV push administration. Administer intravenous push (IVP) over a period of 3 to 5 minutes., Reason for Therapy: Surgical Prophylaxis, Pre-op (Antibiotic), Dx: 1. Uterovaginal prolapse, incomplete 1038 (New Bag - Provider: Pham Martin CRNA) docusate sodium (COLACE) capsule 100 mg 100 mg, Oral, 2 TIMES DAILY, First dose on Yohana 01/16/25 at 2100, Until Discontinued, Do not crush or chew., Post-op 1941 (Given - Provider: Melisa Keller RN) 901 (Given - Provider: Ibeth Kaur, [employer] Counsel[employer]) granisetron (KYTRIL) injection 1 mg (COMPLETED) 1 mg, Intravenous, ONCE PREPROCEDURE, 1 dose, On Yohana 01/16/25 at 0945, Pre-op (Holding/SDS Meds) 09 (Given - Provider: Madhavi Leal RN) metroNIDAZOLE (FLAGYL) IVPB 500 mg (COMPLETED) 500 mg, Intravenous, ONCE, 1 dose, On Yohana 01/16/25 at 1100, Administer over 30 Minutes, VESICANT , Reason for Therapy: Surgical Prophylaxis, Intra-op 1045 (Given - Provider: Pham Martin CRNA) phenazopyridine (PYRIDIUM) tablet 200 mg (COMPLETED) 200 mg, Oral, ONCE, 1 dose, On Yohana 01/16/25 at 0945, 1 tab po when patient is checked in with small sip of water., Pre-op (Nursing), Dx: 1. Uterovaginal prolapse, incomplete 957 (Given - Provider: Madhavi Leal RN) polyethylene glycol (GLYCOLAX, MIRALAX) packet 17 g 17 g, Oral, 2 TIMES DAILY, First dose on Yohana 01/16/25 at 2100, Until Discontinued, Mix in 8 oz of water, Post-op 1941 (Given - Provider: Melisa Keller RN) 902 (Given - Provider: Ibeth Kaur, [employer] Counsel[employer]) sodium chloride 0.9% syringe Intravenous, EVERY 12 HOURS SCHEDULED (2 times per day), First dose on Yohana 01/16/25 at 2100, Until Discontinued, Flush with 3-5 mL saline for PERIPHERAL saline lock maintenance., Post-op 1941 (Given - Provider: Melisa Keller RN) 908 (Given - Provider: Ibeth Kaur, Elementary School Counselor) PRN Medication Order 01/15/2025 01/16/2025 01/17/2025 acetaminophen (TYLENOL) tablet 1,000 mg (COMPLETED) 1,000 mg, Oral, PREPROCEDURE, 1 dose, Starting on Yohana 11 at 0936, Until Yohana 01/16/25 at 0958, Coanalgesic, Do not give if patient received acetaminophen within the last 6 hours Maximum adult dose of acetaminophen is 4000 mg from all sources in 24 hours., Pre-op (Holding/SDS Meds) 0958 (Given - Provider: Madhavi Leal RN) BUPivacaine liposome (PF) (EXPAREL) 1.3 % (13.3 mg/mL) 20 mL injection (CANCELED) 20 mL, INTRAPROCEDURE, Starting on Yohana 01/16/25 at 1212, Until Yohana 01/16/25 at 1335, Intra-op 1212 (Given - Provider: Leta Dupont MD) lactated ringers infusion (CANCELED) Intravenous, at 50 mL/hr, PREPROCEDURE CONTINUOUS, Starting on Yohana 01/16/25 at 0936, Until Yohana 01/16/25 at 1352, To be given in SDS/Pre-op Holding Area, Pre-op (Holding/SDS Meds) 0958 (New Bag - Provider: Madhavi Leal RN)1025 (IV Paused - Provider: Pham Martin CRNA - Comment: Switch to gravity)1026 (IV Restarted - Provider: Pham Martin CRNA)1114 (Anesthesia Volume Adjustment - Provider: Pham Martin CRNA)1211 (Anesthesia Volume Adjustment - Provider: Pham Martin CRNA)1406 (Stopped - Provider: Teofilo Nagel RN - Comment: [Order ends at this time. Document the following action when infusion is complete: Stopped]) lidocaine-EPINEPHrine 1 %-1:100,000 injection (CANCELED) INTRAPROCEDURE, Starting on Yohana 01/16/25 at 1210, Until Yohana 01/16/25 at 1335, Intra-op 1210 (Given - Provider: Leta Dupont MD) morphine injection 2 mg(Linked Group 1) 2 mg, Intravenous, EVERY 2 HOURS PRN, Starting on Yohana 01/16/25 at 1356, Until Mon01/17/25 at 1507, Pain Unrelieved by Oral Opioid Therapy, Begin with lowest dose unless otherwise directed. Reassess pain in 15 minutes. If pain unrelieved, remainder of dose may be given to patient., Post-op morphine injection 4 mg(Linked Group 1) 4 mg, Intravenous, EVERY 2 HOURS PRN, Starting on Yohana 01/16/25 at 1356, Until Mon01/17/25 at 1507, Pain Unrelieved by Oral Opioid Therapy, Begin with lowest dose unless otherwise directed. Reassess pain in 15 minutes. If pain unrelieved, remainder of dose may be given to patient., Post-op ondansetron (ZOFRAN) injection 4 mg(Linked Group 2) 4 mg, Intravenous, EVERY 6 HOURS PRN, Starting on Yohana 01/16/25 at 1356, Until Mon01/17/25 at 1507, Nausea, Vomiting, First line antiemetic. Give IV if patient not tolerating PO. If patient received granisetron (KYTRIL) pre-op, may give 8 hours after dose., Post-op ondansetron (ZOFRAN) tablet 4 mg(Linked Group 2) 4 mg, Oral, EVERY 6 HOURS PRN, Starting on Yohana 01/16/25 at 1356, Until Mon01/17/25 at 1507, Nausea, First line antiemetic. If patient received granisetron (KYTRIL) pre-op, may give 8 hours after dose., Post-op promethazine (PHENERGAN) 12.5 mg in sodium chloride 0.9% 10 mL injection(Linked Group 3) 12.5 mg, Intravenous, EVERY 4 HOURS PRN, Starting on Yohana 01/16/25 at 1356, Until Mon01/17/25 at 1507, Breakthrough Nausea/Vomiting, Second line antiemetic. Give IV if patient not tolerating PO. VESICANT , Post-op promethazine (PHENERGAN) tablet 12.5 mg(Linked Group 3) 12.5 mg, Oral, EVERY 4 HOURS PRN, Starting on Yohana 01/16/25 at 1356, Until Mon01/17/25 at 1507, Breakthrough Nausea/Vomiting, Second line antiemetic., Post-op simethicone (MYLICON) chewable tablet 80 mg 80 mg, Oral, 4 TIMES DAILY PRN, Starting on Yohana 01/16/25 at 1356, Until Mon01/17/25 at 1507, Flatulence, Post-op sodium chloride 0.9% IV line flush 20-50 mL 20-50 mL, Intravenous, at 150-600 mL/hr, PRN, Starting on Yohana 01/16/25 at 1356, Until Mon01/17/25 at 1507, Line Care, Flush with a minimum of 20 mL after IVPB to insure complete administration of the dose. May use the saline infusion to back flush IVPB tubing as needed., Post-op sodium chloride 0.9% syringe Intravenous, PRN, Starting on Yohana 01/16/25 at 1356, Until Mon01/17/25 at 1507, Line Care, Flush with 5-10 mL saline pre/post IVP, and 5 mL prior to IVPB or blood product administration., Post-op traMADoL (ULTRAM) tablet 50-100 mg 50-100 mg, Oral, EVERY 6 HOURS PRN, Starting on Yohana 01/16/25 at 1356, Until Mon01/17/25 at 1507, Pain, Begin with lowest dose unless otherwise directed. Reassess pain in 60 minutes. If pain unrelieved, remainder of dose may be given to patient., Post-op Linked Groups Order Group 1: morphine injection 2 mgJump to med 2 mg, Intravenous, EVERY 2 HOURS PRN, Starting on Yohana 01/16/25 at 1356, Until Mon01/17/25 at 1507, Pain Unrelieved by Oral Opioid Therapy, Begin with lowest dose unless otherwise directed. Reassess pain in 15 minutes. If pain unrelieved, remainder of dose may be given to patient., Post-op Or morphine injection 4 mgJump to med 4 mg, Intravenous, EVERY 2 HOURS PRN, Starting on Yohana 01/16/25 at 1356, Until Mon01/17/25 at 1507, Pain Unrelieved by Oral Opioid Therapy, Begin with lowest dose unless otherwise directed. Reassess pain in 15 minutes. If pain unrelieved, remainder of dose may be given to patient., Post-op Group 2: ondansetron (ZOFRAN) tablet 4 mgJump to med 4 mg, Oral, EVERY 6 HOURS PRN, Starting on Yohana 01/16/25 at 1356, Until Mon01/17/25 at 1507, Nausea, First line antiemetic. If patient received granisetron (KYTRIL) pre-op, may give 8 hours after dose., Post-op Or ondansetron (ZOFRAN) injection 4 mgJump to med 4 mg, Intravenous, EVERY 6 HOURS PRN, Starting on Yohana 01/16/25 at 1356, Until Mon01/17/25 at 1507, Nausea, Vomiting, First line antiemetic. Give IV if patient not tolerating PO. If patient received granisetron (KYTRIL) pre-op, may give 8 hours after dose., Post-op Group 3: promethazine (PHENERGAN) tablet 12.5 mgJump to med 12.5 mg, Oral, EVERY 4 HOURS PRN, Starting on Yohana 01/16/25 at 1356, Until Mon01/17/25 at 1507, Breakthrough Nausea/Vomiting, Second line antiemetic., Post-op Or promethazine (PHENERGAN) 12.5 mg in sodium chloride 0.9% 10 mL injectionJump to med 12.5 mg, Intravenous, EVERY 4 HOURS PRN, Starting on Yohana 01/16/25 at 1356, Until Mon01/17/25 at 1507, Breakthrough Nausea/Vomiting, Second line antiemetic. Give IV if patient not tolerating PO. VESICANT , Post-op documented in this encounter Orders Medications Ordered That Frankie ht Not Have Been Administered Count Last Ordered Date First Ordered Date BUPivacaine liposome (PF) (E XPAREL) 1.3 % (13.3 mg/mL) 20 mL injection 1 01/16/2025 ceFAZolin (ANCEF) 2 g in alexandra rile water 20 mL IVP 1 01/16/2025 droPERidol (INAPSINE) injection 0.625 mg 1 01/16/2025 fentaNYL (SUBLIMAZE) injection 25 mcg 1 08/2024 HYDROmorphone (DILAUDID) injection 0.25 mg 1 01/16/2025 lidocaine-EPINEPHrine 1 %-1: 100,000 injection 1 01/16/2025 metroNIDAZOLE (FLAGYL) IVPB 500 mg 1 2024 morphine injection 2 mg 1 01/16/2025 morphine injection 4 mg 1 01/16/2025 ondansetron (ZOFRAN) injection 4 mg 2 01/16 ondansetron (ZOFRAN) tablet 4 mg 1 01/17/20 ondansetron (ZOFRAN-ODT) dis integrating tablet 8 mg 1 01/16/2025 oxyCODONE (ROXICODONE) immed iate release tablet 5 mg 1 01/16/2025 promethazine (PHENERGAN) 12. 5 mg in sodium chloride 0.9% 10 mL injection 2 01/16/2025 promethazine (PHENERGAN) 6.2 5 mg in sodium chloride 0.9% 10 mL injection 1 01/16/2025 promethazine (PHENERGAN) tablet 12.5 mg 1 1 03/18/2024 simethicone (MYLICON) chewab le tablet 80 mg 1 01/16/2025 sodium chloride 0.9% IV line flush 20-50 mL 1 01/16/2025 sodium chloride 0.9% syringe 1 01/16/2025 traMADoL (ULTRAM) tablet 50-100 mg 1 2024 Consult Count Last Ordered Date First Orde red Date IP CONSULT TO SOCIAL WORK 1 01/16/2025 Admission Count Last Ordered Date First Orde red Date ADMIT 1 01/16/2025 Discharge Count Last Ordered Date First Orde red Date DISCHARGE PATIENT 1 01/17/2025 documented in this encounter Care Teams 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
--- OUTSIDE RECORDS SUMMARY | 2025-01-16 10:26 | XMS_ITS | Encounter Summary ---
Author Organization [place] [address] Care Team Providers Care Night Cleaner Name Role Phone Chas Barrera Primary Care Provider [phone] Reason for Visit * Auth/Cert/Inpt Specialty Diagnoses / Procedures Referred By Contac t Referred To Contact Diagnoses Uterovaginal prolapse, incomplete Uterovaginal prolapse, incomplete [N81.2] Procedures VA COLPOCLEISIS FORT TYPE VA COLPOPEXY VAGINAL INTRAPERITONEAL APPROACH VA POST COLPORRHAPHY RECTOCELE W/WO PERINEORRHAPHY VA CYSTOURETHROSCOPY [place] Colpocleisis, Posterior Repair with levator plication, Cystoscopy . Referral ID Status Reason Start Date Expiration Date Visits Re quested Visits Authorized [id number] 1 1 Encounter Details Date Type Department Care Team (Late st Contact Info) Description 01/16/2025 10:26 AM EST Anesthesia Event [facility] PERIOP [address] 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 Lines, Drains, and Airways Type Details Placement Removal Peripheral IV 01/16/25; 0953; 20; Right; Wrist; as; 1; 01/17/25; 1007; Therapy completed (discussed with primary RN); Catheter intact, Dressing applied, No Complications 01/16/25 0953 by Madhavi Leal, RN 01/17/25 1007 by Charlee Davey, RN, Instructor Airway Device: ETT- Cuffed; Size: 7 mm; Placement Date: 01/16/25; Placement Time: 1033 (created via procedure documentation); Removal Date: 01/16/25; Removal Time: 1226 01/16/25 1033 by Pham Martin CRNA 01/16/25 1226 by Pham Martin CRNA Urethral Catheter (Huynh) Placement Date: 01/16/25; Placement Time: 1045; Inserted By: Sidney-Arana; Type: Latex; Balloon Size: 10 ml; Collection Container: Urimeter; Urine Returned: Yes; Location: OR; Silver-Coated Catheter In Use?: Yes; ELIZA Intact?: Yes; Removal Date: 01/17/25; Removal Time: 52401/16/25 1045 by Patrica Ibarra RN 01/17/25 0525 [...] drink = 0.6 oz pur e alcohol) [facility] Utilities Answer Date Recorded In the past 12 months has [employer] electric, gas, oil, or water [employer] threatened to shut off services in your home? No 11/08/2024 Overall Financial Resource Strain (CARDIA) Answe r Date Recorded How hard is it for you to pa y for the very basics like food, housing, medical care, and heating? Not hard at all 11/08/2024 PHQ-2 Answer Date Recorded PHQ-2 Total Score 0 11/08/2024 [facility] of Occupat ional Health - Occupational Stress [...] money to get more. Never true 11/08/2024 [facility] IP Transportation Answer D ate Recorded [...] as of this encounter Procedure Notes * Pham Martin CRNA - 01/16/2025 10:58 AM ESTAssociated Order(s): Intraop Airway Placement Intraop Airway Placement: Date/Time: 01/16/2025 10:33 AM Induction type: IV Mask size: Standard adult Pre-Oxygenation: Standard Mask ventilation: Easy mask ventilation Technique: Video laryngoscope Laryngoscope blade: Brunner Blade size: 3 Grade view: I Airway type: ETT- cuffed Topical Anesthetic/Lubricant: None Intubation assist devices: Stylet 14fr Airway location: Oral Device size: 7mm Secured at: 19 cm Secured by: Tape Measured from: Lips Placement verified: Auscultation, End tidal CO2 and Symmetric chest wall motion Condition: Unchanged and Atraumatic Insertion attempts: 1 Attempt 1 by: Kareen Martin Title: DEN Ventilation: BMV documented in this encounter OR Notes * Anesthesia Postprocedure Evaluation - Sean Rizo MD - 01/16/2025 1:40 PM EST Post-Anesthesia Evaluation Note Patient Name: Alesha Szymanski Patient Date: January 16, 2025 Post-Anesthesia Evaluation Patient Location: PACU Post op vitals: stable Difficult airway: no Nausea controlled: yes Level of consciousness: awake and alert Post anesthesia pain: adequate analgesia Airway patency: patent Respiratory status: room air Cardiovascular status: stable Hydration status: euvolemic Temperature: Normothermia Perioperative complications: NONE Vitals Value Taken Time BP 170/75 01/16/25 13:30 Resp 21 01/16/25 13:30 SpO2 98 % 01/16/25 13:30 Temp 36.1 ??C (97 ??F) 01/16/25 13:15 Pulse 79 01/16/25 13:30 * Anesthesia Preprocedure Evaluation - Sean Rizo MD - 01/16/2025 9:46 AM EST Pre-Anesthesia Evaluation Note Patient Name: Alesha Szymanski Sex: female Patient : 1945 Age: 79 y.o. Patient Date: January 16, 2025 [place]FORT COLPOCLEISIS POSTERIOR REPAIR (RECTOCELE REPAIR) LEVATOR PLICATION CYSTOSCOPY (Urethra) Anesthesia Evaluation Previous anesthesia. No history of anesthetic complications: No family history of anesthesia complications: Airway Mallampati: II TM distance: >3 FB Neck ROM: full Dental Dental exam findings: upper dentures and lower partials Pulmonary Comments: Chronic Cough Allergic rhinitis (+) Pulmonary embolism (H/O 03/2024 after colon resection) Physical exam: Comments: Clear to auscultation Cardiovascular Comments: Follows with Dr. Mclaughlin. Last seen 09/2024 Cc scanned in. (+)Exercise tolerance: good Hypertension: well controlled Hyperlipidemia CHF: Arrhythmias (PAF): atrial fibrillation, SVT and RBBB Valvular problems/murmurs (Mild AR): /AI, Murmur and MS/MR Physical exam: Rhythm: regular Rate: normal (-) no angina, no shortness of breath, no murmur, carotid bruit is not present, no peripheral edema Neuro/Psych Comments: Memory loss (-) seizures GI/Hepatic/Renal Comments: Mixed stress and urge urinary incontinence 03/2024 H/O colon perforation, s/p resection, colostomy Neal reversal 11/07/24 (+)GERD/PUD: well controlled UTI (11/2024, completed abx) Endo/Other Comments: Insomnia Osteopenia Osteoporosis Fatigue [place] (+)Arthritis: Osteoarthritis Anemia (on PO iron supplements) anticoagulation therapy (Eliquis) (-) no recreational drug use 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 Last clear liquid intake: The patient has not had clear liquids within the last 2 hours. Anesthesia Plan: general Induction: intravenous Monitors: STD Emend ordered Cardiac clearance scanned into media tab 12/28/24 Cleared by PCP 10/2024 prior to Neal reversal 11/07/24 PONV Risk Score: 3. Score of 3 or more is High Risk for PONV, combination antiemetic prophylaxis isindicated. Informed consent Anesthetic plan and risks discussed with: patient and family. Use of blood products discussed with patient and family whom consented to blood products. Cardiology Clearance Obtained Chart Reviewed and patient examined documented in this encounter Miscellaneous Notes * PAT Pre Evaluation for Anesthesia - Dorota Dsouza APRN - 01/09/2025 9:06 AM EDT Pre-Anesthesia Evaluation Note Patient Name: Alesha Szymanski Sex: female Patient : 1945 Age: 79 y.o. Patient Date: January 09, 2025 LEFORT COLPOCLEISIS POSTERIOR REPAIR (RECTOCELE REPAIR) LEVATOR PLICATION CYSTOSCOPY (Urethra) Anesthesia Evaluation Previous anesthesia. No history of anesthetic complications: No family history of anesthesia complications: Airway TM distance: >3 FB Neck ROM: full Dental Dental exam findings: upper dentures and lower partials Pulmonary Comments: Chronic Cough Allergic rhinitis (+) Pulmonary embolism (H/O 03/2024 after colon resection) Physical exam: Comments: Clear to auscultation Cardiovascular Comments: Follows with Dr. Mclaughlin. Last seen 09/2024 Cc scanned in. (+)Exercise tolerance: good Hypertension: well controlled Hyperlipidemia CHF: Arrhythmias (PAF): atrial fibrillation, SVT and RBBB Valvular problems/murmurs (Mild AR): /AI, Murmur and MS/MR Physical exam: Rhythm: regular Rate: normal (-) no angina, no shortness of breath, no murmur, carotid bruit is not present, no peripheral edema Neuro/Psych Comments: Memory loss (-) seizures GI/Hepatic/Renal Comments: Mixed stress and urge urinary incontinence 03/2024 H/O colon perforation, s/p resection, colostomy Neal reversal 11/07/24 (+)GERD/PUD: well controlled UTI (11/2024, completed abx) Endo/Other Comments: Insomnia Osteopenia Osteoporosis Fatigue [place] (+)Arthritis: Osteoarthritis Anemia (on PO iron supplements) anticoagulation therapy (Eliquis) (-) no recreational drug use DRY CAN TENDER Comments: Uterovaginal prolapse Additional Pre-evaluation comments 11/11/24 cbc: H/h 10.6/32.6 11/09/24 BMP: glucose 134, glucose 111 Ordered cbc, t/s EKG 09/17/24 EKG scanned into media Reviewe: sinus with RBBB Scanned into media ECHO 03/2024: EF 70%, Mild hypokinesis lV apex Mild LA dilation Mod MR Mild AI and mild TR Opioids : Naive BMI: 23.35 Anesthesia Plan Anesthesia Plan: general Monitors: STD Emend ordered Cardiac clearance scanned into media tab 12/28/24 Cleared by PCP 10/2024 prior to Neal reversal 11/07/24 PONV Risk Score: 3. Score of 3 or more is High Risk for PONV, combination antiemetic prophylaxis isindicated. Informed consent Anesthetic plan and risks discussed with: patient and family. Use of blood products discussed with patient and family whom consented to blood products. Cardiology Clearance Obtained Chart Reviewed and patient examined documented in this encounter Plan of Treatment Upcoming Encounters Date Type Department Care Team (Late st Contact Info) Description 02/26/2025 9:00 AM EST Office Visit [facility] [address] [place] [address] Antonina Ji PA-C [address] [place] [id number] documented as of this encounter Procedures Procedure Name Priority Date/Time Associated Diagnosis Comments INTRAOP AIRWAY PLACEMENT Routine 01/16/2025 10:33 AM EST documented in this encounter Results * INTRAOP AIRWAY PLACEMENT (01/16/2025 10:33 AM EST) Narrative [facility] - 01/16/2025 10:33 AM EST Pham Martin CRNA 01/16/2025 11:14 AM Intraop Airway Placement: Date/Time: 01/16/2025 10:33 AM Induction type: IV Mask size: Standard adult Pre-Oxygenation: Standard Mask ventilation: Easy mask ventilation Technique: Video laryngoscope Laryngoscope blade: Brunner Blade size: 3 Grade view: I Airway type: ETT- cuffed Topical Anesthetic/Lubricant: None Intubation assist devices: Stylet 14fr Airway location: Oral Device size: 7mm Secured at: 19 cm Secured by: Tape Measured from: Lips Placement verified: Auscultation, End tidal CO2 and Symmetric chest wall motion Condition: Unchanged and Atraumatic Insertion attempts: 1 Attempt 1 by: Kareen Martin 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 Uterovaginal prolapse, incompleteIndications:Uterovag inal prolapse, incomplete New Bag 01/16/2025 10:38 AM EST 2 g dexAMETHasone (DECADRON) injection Intravenous, PRN (Anesthesia), Starting on Yohana 01/16/25 at 1042, Until Yohana 01/16/25 at 1233, Anesthesia Intra-op Given 01/16/2025 10:42 AM EST 4 mg ePHEDrine injection Intravenous, PRN (Anesthesia), Starting on Yohana 01/16/25 at 1046, Until Yohana 01/16/25 at 1233, Anesthesia Intra-op Given 01/16/2025 11:39 AM EST 10 mg fentaNYL (SUBLIMAZE) injection Intravenous, PRN (Anesthesia), Starting on Yohana 01/16/25 at 1030, Until Yohana 01/16/25 at 1233, Anesthesia Intra-op Given 01/16/2025 12:08 PM EST 50 mcg lactated ringers infusion Intravenous, at 50 mL/hr, PREPROCEDURE CONTINUOUS, Starting on Yohana 01/16/25 at 0936, Until Yohana 01/16/25 at 1352, To be given in SDS/Pre-op Holding Area, Pre-op (Holding/SDS Meds) IV Restarted 01/16/2025 10:26 AM EST lidocaine 1% 10 mg/mL (1 %) injection Intravenous, PRN (Anesthesia), Starting on Yohana 01/16/25 at 1030, Until Yohana 01/16/25 at 1233, Anesthesia Intra-op Given 01/16/2025 10:30 AM EST 50 mg metroNIDAZOLE (FLAGYL) IVPB 500 mg 500 mg, Intravenous, ONCE, 1 dose, On Yohana 01/16/25 at 1100, Administer over 30 Minutes, VESICANT , Reason for Therapy: Surgical Prophylaxis, Intra-op Given 01/16/2025 10:45 AM EST 500 mg phenylephrine injection Intravenous, PRN (Anesthesia), Starting on Yohana 01/16/25 at 1039, Until Yohana 01/16/25 at 1233, Anesthesia Intra-op Given 01/16/2025 11:51 AM EST 100 mcg propofoL (DIPRIVAN) injection Intravenous, PRN (Anesthesia), Starting on Yohana 01/16/25 at 1030, Until Yohana 01/16/25 at 1233, Anesthesia Intra-op Given 01/16/2025 10:30 AM EST 80 mg rocuronium injection Intravenous, PRN (Anesthesia), Starting on Yohana 01/16/25 at 1030, Until Yohana 01/16/25 at 1233, Anesthesia Intra-op Given 01/16/2025 11:22 AM EST 10 mg sugammadex (BRIDION) injection Intravenous, PRN (Anesthesia), Starting on Yohana 01/16/25 at 1206, Until Yohana 01/16/25 at 1233, Anesthesia Intra-op Given 01/16/2025 12:06 PM EST 100 mg documented in this encounter Care Teams Night Cleaner Relationship Specialty Start Date End Date Chas Barrera [facility] [address] [place] [address] PCP - General Family Medicine 11/08/24 documented as of this encounter
--- OUTSIDE RECORDS SUMMARY | 2025-01-16 11:32 | XMS_ITS | Encounter Summary ---
Author Organization [place] [address] Care Team Providers Care Qual Research Manager Name Role Phone Chas Barrera Primary Care Provider [phone] Reason for Visit * Auth/Cert/Inpt Specialty Diagnoses / Procedures Referred By Contac t Referred To Contact Diagnoses Uterovaginal prolapse, incomplete Uterovaginal prolapse, incomplete [N81.2] Procedures MD COLPOCLEISIS [facility] TYPE MD COLPOPEXY VAGINAL INTRAPERITONEAL APPROACH MD POST COLPORRHAPHY RECTOCELE W/WO PERINEORRHAPHY MD CYSTOURETHROSCOPY [place] Colpocleisis, Posterior Repair with levator plication, Cystoscopy . Referral ID Status Reason Start Date Expiration Date Visits Re quested Visits Authorized [id number] 1 1 Encounter Details Date Type Department Care Team (Late st Contact Info) Description 01/16/2025 11:32 AM EST - 01/16/2025 1:07 PM EST Surgery [facility] [address] [place] [address] Leta Dupont MD [address] [place] [address] [facility] COLPOCLEISIS Surgery Details Date/Time Status Location OR Service Patient Class Case Class Case Type Trauma Case? 01/16/2025 11:32 AM Posted [facility] MAIN OR [facility] OR 06 Urogynecology Same Day Surgery Elective Panel 1 Procedure LRB Anes Op Region Wound Class Comments [place] COLPOCLEISIS N/A General Clean Cont aminated [place] Colpocleisis, Posterior Repair with levator plication, vaginal biopsy, Cystoscopy POSTERIOR REPAIR (RECTOCELE REPAIR) N/A General Clean Contaminated . LEVATOR PLICATION N/A General Clean Contam inated CYSTOSCOPY N/A General Urethra Clean Contaminated VAGINAL BIOPSY General Clean Contamina sherice Surgeon Surgeon Role Service Panel Leta Dupont MD Primary Urogynecology 1 documented in this encounter Social History Tobacco Use Types Packs/Day Years Used Date Smoking Tobacco: Never Smokeless Tobacco: Never Alcohol Use Standard Drinks/Week Comments Not Currently 0 (1 standard drink = 0.6 oz pur e alcohol) [facility] Utilities Answer Date Recorded In [...] Date Recorded PHQ-2 Total Score 0 11/08/2024 [facility] - Occupational Stress [...] money to get more. Never true 11/08/2024 [facility] IP Transportation Answer D ate Recorded In [...] Sign Reading Time Taken Comments Blood Pressure 152/94 01/16/2025 1:00 PM EST Pulse 79 01/16/2025 1:00 PM EST Temperature 36.6 C (97.8 F) 01/16/2025 12:31 PM EST Respiratory Rate 17 01/16/2025 1:00 PM EST Oxygen Saturation 99% 01/16/2025 1:00 PM EST Inhaled Oxygen Concentration - - Weight - - Height - - Body Mass Index - - documented in this encounter Functional Status * [...] 0 11/08/2024 1:08 PM EDT Jagdeep Velasquez LEASE BROKER documented as of this encounter Discharge Summaries [...] (144-216) mg Cap Refills: 0 Generic drug: Ljrrl-4-XII-EPA-Fish Oil Magnesium 200 mg Tab Refills: 0 [...] Your Medications These medications were sent to [facility] [address] [place] [address] - [address] [phone] [address] docusate sodium 100 mg Cap metroNIDAZOLE 500 mg Tab ondansetron 4 mg Tbdl senna 8.6 mg Tab traMADoL 50 mg Tab Follow Up: No follow-up provider specified. Signed: Leta Dupont MD 01/17/2025 6:33 AM documented in this encounter Discharge Instructions * Discharge Instructions* Sean Rizo MD - 01/16/2025 7:40 AM EST [facility] UROGYNECOLOGY MD FRANCESCA Botello PA-C [address] [place] [address], [phone] Thank you for allowing us to care for you! It was a pleasure taking care of you during your surgeryat [facility]! Dr. Little and her team are always available for any questions or concerns after your surgery. As always, you can reach our staff during normal business hours by using the [employer] experience to send us an email at: [email or web address] FOLLOW UP APPOINTMENTS Upon leaving the hospital, you should call [phone] during normal business hours to schedule follow-up appointments. You will need to be seen for the following: If you go home with a catheter, call to schedule a nurse visit in the office in 2 days (or, if yoursurgery is on a , catheter removal would be the following Monday) Six-week follow-up with Nini Ji PA-C (Dr. Little's Physician Conveyor Feeder) WHAT MEDICATIONS CAN I TAKE? After surgery [...] a single multivitamin, which you can buy [employer]. Drink lots of fluids - about EIGHT [...] call: (7:30 a.m. to 4:00 p.m. Monday-Monday) [facility] For non-life threatening emergencies only outside of normal business hours, please call the above number and follow prompts for the triage nurse. They will forward any urgent matters to the doctor oncall. For any life-threatening emergencies call 911. [facility] Discharge Instructions - Following Anesthesia We [...] our office at . Get Well Soon! [facility] documented in this encounter Medications at Time [...] Sustained Release Take 90 mg by mouth. Cmrhi-6-BHJ-EPA- Fish Oil (FISH OIL) 1,200 (144-216) mg [...] Means Destination Comment s Home or Self Usp documented in this encounter Progress Notes * [...] voiding trial. Dr. Dupont made aware. 14 russian adam replaced and patient will follow up outpatient. documented in this encounter H&P Notes * Alfredo Collier NP - 01/16/2025 9:08 AM EST [facility] History and Physical Name: Alesah Szymanski ADDRESS: [address] [place] [address] [place] [address] : 1945 AGE: 79 y.o. Assessment: Uterovaginal [...] not taking: Reported on 01/09/2025 Provider, Historical Tmcgz-6-DAW-EPA-Fish Oil (FISH OIL) 1,200 (144-216) mg Oral [...] discharge, ear pain, nosebleeds and sore throat. [place] bilaterally Eyes: Negative for blurred vision, double [...] nursing note reviewed. Exam conducted with a waste chopper present. Constitutional: General: She is not in [...] Percent % 58.6 Lymph Percent % 30.1 [place] Percent % 8.3 Eos Percent % 2.2 Baso Percent % 0.6 Neut# 1.6 - 6.1 x10(3)/mcL 4.8 Lymph# 1.2 - 3.9 x10(3)/mcL 2.5 [place]# 0.3 - 0.9 x10(3)/mcL 0.7 Eos# 0.0 [...] MR Mild AI and mild TR Alfredo Collier NP 01/16/2025 [1] Past 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: Diagnosis Date [...] true Transportation Needs: No Transportation Needs (11/08/2024) [facility] IP Transportation In the past 12 months, has lack of reliable transportation kept you from medical appointments, meetings, work or from getting things needed for daily living?: No Physical Activity: Inactive (11/08/2024) Exercise Vital Sign Days of Exercise per Week: 0 days Minutes of Exercise per Session: 0 min Stress: No Stress Concern Present (11/08/2024) [facility] - Occupational Stress Questionnaire Feeling of Stress : Not at all [5] Family History Problem Relation Age of Onset Anesth Problems Neg Hx documented in this encounter Procedure Notes * Leta Dupont MD - 01/16/2025 12:42 PM EST Images from the original note were not included. OPERATIVE NOTE Nessa Alesha January 16, 2025 There is no height or weight on file to calculate BMI. PRE-OP DIAGNOSIS: Uterovaginal prolapse, incomplete [N81.2] POST-OP DIAGNOSIS: Uterovaginal prolapse, incomplete [N81.2] PROCEDURE(S): Procedure(s): Partial colpectomy, [place] Colpocleisis, Posterior Repair with levator plication, vaginal biopsy, Cystoscopy . SURGEON(S): Surgeons and Role: * Leta Dupont MD - Primary INSPECTOR CHIEF(S): OR staff ANESTHESIA: General SPECIMENS: ID Type [...] in the dorsal lithotomy position in [facility]-cane stirrups. She was prepped and draped in [...] Dupont MD - 01/16/2025 12:37 PM EST [facility] OPERATIVE/PROCEDURE NOTE Alesha Szymanski January 16, 2025 There is no height or weight on file to calculate BMI. PRE-OP DIAGNOSIS: Uterovaginal prolapse, incomplete [N81.2] POST-OP DIAGNOSIS: Uterovaginal prolapse, incomplete [N81.2] PROCEDURE(S): Procedure(s): Partial colpectomy, LeFort Colpocleisis, Posterior Repair with levator plication, vaginal biopsy, Cystoscopy . SURGEON(S): Surgeons and Role: * Leta Dupont MD - Primary INSPECTOR CHIEF(S): OR staff ANESTHESIA: General SPECIMENS: ID Type [...] 9:00 AM EST Office Visit [facility] Urogynecology [address] [address] Antonina Ji PA-C [address] [place] [address] Pending Results Name Type Priority Associated [...] 01/16/2025 10:26 AM EST Uterovaginal prolapse, incomplete MD CYSTOURETHROSCOPY 01/16/2025 10:26 AM EST Uterovaginal prolapse, incomplete LEVATOR PLICATION 01/16/2025 10: 26 AM EST Uterovaginal prolapse, incomplete MD POST COLPORRHAPHY RECTOCELE W/WO PERINEORRHAPHY 01/16/2025 10:26 AM EST Uterovaginal prolapse, incomplete MD COLPOCLEISIS [place] TYPE 01/16/2025 10:26 AM EST Uterovaginal prolapse, incomplete documented in this encounter Results * SCANNED RHYTHM STRIPS (01/17/2025 9:00 AM EST) Anatomical Region Laterality Modality Other 01/17/2025 9:00 AM EST us Unknown Provider IMG ECG ORDERABLES Final Result * ECG AND WAVEFORMS - TELEMETRY (01/16/2025 9:26 PM EST) ECG INTERPRET [facility] 01/16/2025 9:26 PM EST Narrative [facility] - 01/16/2025 9:30 PM EST PVC'S (AM) ROUTINE MD 0.15 QRS 0.12 RR 0.81 QT 0.38 QTc 0.42 See Clinical Report link for waveform capture us Unknown Provider POINT OF CARE CARDIOLOGY Final Result [facility] [address] [place] [address] * ECG AND WAVEFORMS - TELEMETRY (01/16/2025 1:53 PM EST) ECG INTERPRET [facility] 01/16/2025 1:53 PM EST Narrative [facility] - 01/16/2025 1:59 PM EST ROUTINE//AC MD 0.14 QRS 0.15 RR 0.79 QT 0.41 QTc 0.46 See Clinical Report link for waveform capture us Unknown Provider POINT OF CARE CARDIOLOGY Final Result [facility] [address] [place] [address] * PATHOLOGY TISSUE REQUEST (01/16/2025 11:04 AM EST) CASE REPORT Surgical Pathology Case: [id number] Authorizing Provider: Leta Dupont MD Collected: 01/16/2025 1104 Ordering Location: [facility] SURGERY Received: 01/16/2025 1256 Pathologist: Terri Burks MD Specimen: Vagina, vaginal biopsy 01/17/2025 2:16 PM EST [facility] FINAL DIAGNOSIS Vaginal biopsy: - Granulation tissue. - Negative for malignancy. 01/17/2025 2:16 PM EST [facility] at 1416 EST GROSS DESCRIPTION The specimen is received in formalin, labeled with the patient's name, medical record number, and vaginal biopsy . It consists of a 0.6 x 0.4 x 0.3 cm crocker-pink tissue fragment. The possible margin is inked blue and the specimen is entirely submitted in cassette A1. INGA Escalante, MARVA(ASCP) 01/16/2025 01/17/2025 2:16 PM EST [facility] MICROSCOPIC DESCRIPTION The microscopic examination may have been rendered in whole, or in part, by analyzing high-resolutio n digital images (whole slide images) on the [employer] Digital Pathology platform validated at [facility]. 01/17/2025 2:16 PM EST [facility] EMBEDDED IMAGES 01/17/2025 2:16 PM [facility] Tissue VAGINAL STRUCTURE / Unknown 01/16/2025 11:04 AM EST 01/16/2025 12:56 PM EST us Leta Dupont MD PATHOLOGY ORDERABLES Fi nal Result [facility] [address] [place] [address] [facility] [address] [place], [place] [id number] documented in this encounter Visit Diagnoses Diagnosis Uterovaginal prolapse, incomplete- Primary Uterovaginal prolapse, incomplete Uterovaginal prolapse, complete Uterovaginal prolapse, incomplete documented in this encounter [...] Yohana 01/16/25 at 1530, Until Discontinued, Post-op Given 01/17/2025 9:02 AM EST 10 mg BUPivacaine liposome (PF) (EXPAREL) 1.3 % (13.3 mg/mL) 20 mL injection 20 mL, INTRAPROCEDURE, Starting on Yohana 01/16/25 at 1212, Until Yohana 01/16/25 at 1335, Intra-op Given 01/16/2025 12:12 PM EST 20 mL carvediloL (COREG) tablet 12.5 mg 12.5 mg, [...] Meds) IV Restarted 01/16/2025 10:26 AM EST lidocaine-EPINEPHrine 1 %-1:100,000 injection INTRAPROCEDURE, Starting on Yohana 01/16/25 at 1210, Until Yohana 01/16/25 at 1335, Intra-op Given 01/16/2025 12:10 PM EST 19 mL Vagina morphine injection 2 mg 2 mg, Intravenous, [...] water., Pre-op (Nursing), Dx: 1. Uterovaginal prolapse, incompleteIndications:Uterova ginal prolapse, incomplete Given 01/16/2025 9:58 AM EST [...] shown in EST. Scheduled Medication Order 01/15/2025 01/16/2025 01/17/2025 acetaminophen (TYLENOL) tablet 1,000 mg 1,000 mg, Oral, EVERY 6 HOURS SCHEDULED (4 times per day), First dose on Yohana 01/16/25 at 1800, Until Discontinued, Maximum adult dose of acetaminophen is 4000 mg from all sources in 24 hours., Post-op 1636 (Given - Provider: Teofilo Nagel RN) 0131 (Given - Provider: Alexandra Muñoz, AMADOR)0653 (Not Given - Provider: Melisa Keller RN - Reason: Patient Declined) aprepitant (EMEND) capsule 40 mg (COMPLETED) 40 mg, Oral, ONCE PREPROCEDURE, 1 dose, On Yohana 01/16/25 at 0945, Pre-op (Holding/SDS Meds) 0958 (Given - Provider: Madhavi Leal, AMADOR) aspirin chewable tablet 81 mg 81 mg, Oral, EVERY 24 HOURS SCHEDULED (Daily), First dose on Mon01/17/25 at 0900, Until Discontinued, Post-op 0902 (Given - Provid er: Ibeth Kaur, Assembler Chassis) atorvastatin (LIPITOR) tablet 10 mg 10 mg, Oral, DAILY, First dose on Yohana 01/16/25 at 1530, Until Discontinued, Post-op 1637 (Given - Provider: Teofilo Nagel RN) 901 (Given - Provider: Ibeth Kaur, Assembler Chassis) carvediloL (COREG) tablet 12.5 mg 12.5 mg, Oral, 2 TIMES DAILY WITH MEALS, First dose on Yohana 01/16/25 at 1800, Until Discontinued, Take with a meal., Post-op 163 (Given - Provider: Teofilo Nagel RN) 900 (Given - Provider: Ibeth Kaur, Assembler Chassis) ceFAZolin (ANCEF) 2 g in sterile water [...] Discontinued, Do not crush or chew., Post-op 194 (Given - Provider: Melisa Keller RN) 901 (Given - Provider: Ibeth Kaur, Assembler Chassis) granisetron (KYTRIL) injection 1 mg (COMPLETED) 1 mg, Intravenous, ONCE PREPROCEDURE, 1 dose, On Yohana 01/16/25 at 0945, Pre-op (Holding/SDS Meds) 0958 (Given - Provider: Madhavi Leal RN) metroNIDAZOLE [...] RN) 902 (Given - Provider: Ibeth Kaur, Assembler Chassis) sodium chloride 0.9% syringe Intravenous, EVERY 12 HOURS SCHEDULED (2 times per day), First dose on Yohana 01/16/25 at 2100, Until Discontinued, Flush with 3-5 mL saline for PERIPHERAL saline lock maintenance., Post-op 1941 (Given - Provider: Melisa Keller RN) 908 (Given - Provider: Ibeth Kaur, Assembler Chassis) PRN Medication Order 01/15/2025 01/16/2025 01/17/2025 acetaminophen (TYLENOL) tablet 1,000 mg (COMPLETED) 1,000 mg, Oral, PREPROCEDURE, 1 dose, Starting on Yohana 01/16/25 at 0936, Until Yohana 01/16/25 at 0958, Coanalgesic, Do not give if patient received acetaminophen within the last 6 hours Maximum adult dose of acetaminophen is 4000 mg from all sources in 24 hours., Pre-op (Holding/[facility] Meds) 957 (Given - Provider: Madhavi Leal, AMADOR) BUPivacaine liposome (PF) (EXPAREL) 1.3 % (13.3 [...] %-1:100,000 injection (CANCELED) INTRAPROCEDURE, Starting on Yohana 11 at 1210, Until Yohana 11 at 1335, Intra-op 1210 (Given - Provider: [...] EVERY 6 HOURS PRN, Starting on Yohana 11 at 1356, Until 01/17/25 at 1507, Nausea, Vomiting, First line antiemetic. [...] EVERY 4 HOURS PRN, Starting on Yohana 11 at 1356, Until 01/17/25 at 1507, Breakthrough Nausea/Vomiting, Second line antiemetic., [...] Count Last Ordered Date First Ordered Date ceFAZolin (ANCEF) 2 g in alexandra rile water 20 mL IVP 1 01/16/2025 droPERidol (INAPSINE) injection 0.625 mg 1 01/16/2025 fentaNYL (SUBLIMAZE) injection 25 mcg 1 08/2024 HYDROmorphone (DILAUDID) injection 0.25 mg 1 01/16/2025 metroNIDAZOLE (FLAGYL) IVPB 500 mg [...] 01/17/2025 documented in this encounter Care Teams Qual Research Manager Relationship Specialty Start Date End Date Chas Barrera [facility] [address] [place] [address] PCP - General Family Medicine 11/08/24 documented as of this encounter
--- OUTSIDE RECORDS SUMMARY | 2025-01-21 11:00 | XMS_ITS | Encounter Summary ---
Author Organization [place] [address] Care Team Providers Care Lab Systems Analyst Name Role Phone Chas Barrera Primary Care Provider [phone] Reason for Visit * Reason Comments Follow-up TOV Encounter Details Date Type Department Care Team (Latest Contact Info) Description 01/21/2025 11:00 AM EST Clinical Support [facility] U[facility]ne[facility] [address] [address] Yolanda Doe MA Uterovaginal prolapse, incomplete (Primary Dx) Social History Tobacco Use Types Packs/Day Years Used Date Smoking Tobacco: Never Smokeless Tobacco: Never Alcohol Use Standard Drinks/Week Comments Not Currently 0 (1 standard drink = 0.6 oz pur e alcohol) [facility] Utilities Answer Date Recorded In the past 12 months has [employer] electric, gas, oil, or water company threatened to shut off services in your home? No 11/08/2024 Overall Financial Resource Strain (CARDIA) Answe r Date Recorded How hard is it for you to pa y for the very basics like food, housing, medical care, and heating? Not hard at all 11/08/2024 PHQ-2 Answer Date Recorded PHQ-2 Total Score 0 11/08/2024 [facility] - Occupational Stress [...] money to get more. Never true 11/08/2024 [facility] IP Transportation Answer D ate [...] as of this encounter Progress Notes * Yolanda Doe MA - 01/21/2025 11:00 AM EST NURSE VISIT - CATHETER REMOVAL 250 ML STERILE WATER ADDED 300 ML VOIDED IN HAT PEREZ CATHETER: Removed PLAN: 1) call office if any issues or questions 2) call office if signs or symptoms of a UTI 3) call office if unable to void (urinate) after 4 hours Yolanda Doe MA documented in this encounter Plan of Treatment Upcoming Encounters Date Type Department Care Team (Late st Contact Info) Description 02/26/2025 9:00 AM EST Office Visit [facility]ne[facility] [address] [address] Antonina Ji PA-C [address] [place] [address] documented as of this encounter Visit Diagnoses Diagnosis Uterovaginal prolapse, incomplete- Primary documented in this encounter Care Teams Lab Systems Analyst Relationship Specialty Start Date End Date Chas Barrera [address] [facility] [address] [place] [address] PCP - General Family Medicine 11/08/24 documented as of this encounter
--- NOTE | 2025-02-03 09:13 | XR_ITS ---
FINAL REPORT TECHNIQUE: Bone densitometry calculations of the lumbar spine and bilateral hips were obtained. CLINICAL HISTORY: SCREENING COMPARISON: 01/11/2023 FINDINGS: Using L1-4, the bone mineral density of the spine is 0.927 g/cm2, corresponding to T-score of -1.1 and a Z score of 1.5. This is within the range of osteopenia. The bone mineral density change versus baseline is 1.4%. Using the left hip, the bone mineral density of the femoral neck is 0.624 g/cm2, corresponding to a T-score of -2.0 and a Z-score of 0.2. This is within the range of osteopenia. The bone mineral density change versus the baseline is 0.5%. Using the right hip, the bone mineral density of the femoral neck is 0.625 g/cm?, corresponding to a T-score of -2.0 and a Z-score of 0.2. This is within the range of osteopenia. The bone mineral density change versus the baseline is 0.7%. NOTE: T-score: Standard deviation compared with peak bone mass of young adult mean. *Following the recommendations of the International Society of Bone densitometry, classification of hip BMD is based on the lower of two T-scores; total hip or femoral neck. IMPRESSION: 1. Bone mineral density of the lumbar spine within the range of osteopenia, slightly improved since the prior exam of 2022. 2. Bone mineral density of the bilateral femoral necks within the range of osteopenia, slightly improved since the prior exam of 2022. Reviewed, Interpreted and Dictated by Tamara Guy MD Transcribed by Letty Adhikari Authenticated and [facility]
--- OUTSIDE RECORDS SUMMARY | 2025-02-03 09:13 | XMS_ITS | Clinical Summary ---
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
--- OUTSIDE RECORDS SUMMARY | 2025-02-03 09:13 | XMS_ITS | Patient Health Record ---
Author Organization [facility] Address [address] [facility] [address] [place] [id number] Care Team Providers Care Silver Solution Mixer Name Role Phone Chas Barrera Primary Care Provider [phone] Marie Harrison Unavailable [phone] TujungaJamal Unavailable [phone] Bettie Willson Unavailable [phone] CyCharlene Unavailable [phone] Allergies No Known Allergies Results Component Value Reference Range Notes Urinalysis - Inhouse Reviewed date:02/29/2024 03:13:30 PM [...] Interpretation: Performing Lab: Notes/Report: Test performed by [facility], [email or web address] [address] [place] [address] , [address], [place] [address] Mitchel Dior MD, Pst Specialist CLIA: [id number] Vitamin B12 011 378-4249 pg/mL P-Culture, Urine Reviewed date:03/04/2024 04:50:11 PM Interpretation: Performing Lab: Notes/Report: Test performed by [facility] , [facility], [place] [address] Mitchel Dior MD, Pst Specialist CLIA: [id number] Specimen Source Urine - Void Culture, Urine See Below Final Report : No growth P-Reticulocyte Count Reviewed date:03/01/2024 08:46:38 AM Interpretation: Performing Lab: Notes/Report: Test performed by [facility] , [facility], [place] [address] Mitchel Dior MD, Pst Specialist CLIA: [id number] Reticulocyte Count 1.8 0.5-2.1 % P-Ferritin Reviewed date:03/01/2024 08:46:38 AM Interpretation: Performing Lab: Notes/Report: [facility] , [facility], [place] [address] Mitchel Dior MD, Pst Specialist CLIA: [id number] Ferritin 9.2 13.0-301.0 ng/mL P-Iron Reviewed date:03/01/2024 08:46:38 AM Interpretation: Performing Lab: Notes/Report: Test performed by [facility] , [address], [place] [address] Mitchel Dior MD, Pst Specialist CLIA: [id number] Iron 16 37-145 ug/dL P-Vitamin D 25-Hydroxy Reviewed date:03/01/2024 08:46:38 AM Interpretation: Performing Lab: Notes/Report: Test performed by [facility] [address] , [facility], [place] [address] Mitchel Dior MD, Pst Specialist CLIA: [id number] Vitamin D 25-Hydroxy 71.2 30.0-100.0 ng/mL Interpretation of Vitamin D 25 OH: < 20 ng/mL - Deficiency 20 - 29 ng/mL - Insufficiency 30 - 100 ng/mL - Sufficiency > 100 ng/mL - Super-therapeutic- toxicity may occur above this level. Clinical correlation required. H-CMP Reviewed date:06/20/2024 08:55:35 AM Interpretation:cL 97, [...] 260 11.1-264 ng/ml Delta: 105 on 03/17/24-0420 H-Iron Reviewed date:06/20/2024 08:55:35 AM Interpretation:106 Performing Lab: Notes/Report: SHARE RESULTS WITH TARI YU FE 106 37-170 ug/dL Urinalysis - Inhouse Reviewed date:12/13/2024 04:14:48 PM [...] Interpretation: Performing Lab: Notes/Report: Test performed by [facility] [address] [place] [address] , [address], [place] [address] Mitchel Dior MD, Pst Specialist CLIA: [id number] Sodium 134 135-145 mmol/L Potassium 4.2 3.5-5.3 [...] Interpretation: Performing Lab: Notes/Report: Test performed by [facility] [address] [place] [address] , [address], [place] [address] Mitchel Dior MD, Pst Specialist CLIA: [id number] Specimen Source Urine - Void Culture, Urine See Below Final Report : No growth Urinalysis - Inhouse Reviewed date:12/17/2024 11:34:17 AM [...] 132 Performing Lab: Notes/Report: Test performed by [facility] [address] [place] [address] , [address], [place] [address] Mitchel Dior MD, Pst Specialist CLIA: [id number] Sodium 132 135-145 mmol/L Potassium 4.2 3.5-5.3 mmol/L Chloride 99 97-108 mmol/L CO2 23 20-32 mmol/L Glucose 101 65-99 mg/dL BUN 20 8-23 mg/dL Creatinine 1.61 0.50-1.00 mg/dL Calcium 9.2 8.6-10.4 mg/dL eGFR by Creatinine 33 >59 mL/min/1.73m2 P-Culture, Urine Reviewed date:06/27/2024 04:30:25 PM Interpretation:No growth Performing Lab: Notes/Report: Test performed by [facility] [address] [place] [address] , [address], [place] [address] Mitchel Dior MD, Pst Specialist CLIA: [id number] Specimen Source Urine - Void Culture, Urine See Below Final Report : No growth Urinalysis - Inhouse Reviewed date:06/21/2024 02:34:49 PM Interpretation: Performing Lab: Notes/Report: Color/Clarity yellow/clear Leuk 1+ Nitrite neg Urobili 3.2 Protein neg pH 7.5 Blood trace intact Sp. Gr. 1.015 Ketone neg Bili neg Gluc neg P-Iron Reviewed date:05/01/2024 03:43:07 PM Interpretation: Performing Lab: Notes/Report: Test performed by [facility] [address] [place] [address] , [address], [place] [address] Mitchel Dior MD, Pst Specialist CLIA: [id number] Iron 10 37-145 ug/dL P-Ferritin Reviewed date:05/01/2024 03:43:07 PM Interpretation: Performing Lab: Notes/Report: Test performed by [facility] [address] [place] [address] , [place] [address] Mitchel Dior MD, Pst Specialist CLIA: [id number] Ferritin 72.1 13.0-301.0 ng/mL P-Comprehensive Metabolic Pa cruz (CMP) Reviewed date:05/01/2024 03:43:07 PM Interpretation: Performing Lab: Notes/Report: Test performed by [facility] [address] [place] [address] , [place] [address] Mitchel Dior MD, Pst Specialist CLIA: [id number] Sodium 135 135-145 mmol/L Potassium 4.2 3.5-5.3 [...] - 38 platlet 541 100 - 400 H-BMP Reviewed date:12/10/2024 09:06:40 AM Interpretation: Performing Lab: Notes/Report: NA 129 136-145 mmol/L K 3.3 3.5-5.1 mmoL/L CL 101 98-107 mmol/L CO2 20 22.0-30.0 mmol/L GAP 11.3 5-15 mEq/L BUN 35 7-17 mg/dl CREATT 2.10 0.52-1.04 mg/dl CRCLE 20 50-200 mL/min GFRAA 28 >60 ML/MIN Delta: 23 on -909 EGFR 23 >60 ml/min GLU 95 74-100 mg/dl Delta: 140 on 12/07/24 CA 8.2 8.4-10.2 mg/dl H-CMP Reviewed date:12/10/2024 09:06:40 AM Interpretation: Performing Lab: Notes/Report: NA 127 136-145 mmol/L K 3.1 3.5-5.1 mmoL/L CL 96 98-107 mmol/L CO2 21 22.0-30.0 mmol/L GAP 13.1 5-15 mEq/L BUN 41 7-17 mg/dl CREATT 2.50 0.52-1.04 mg/dl CRCLE 18 50-200 mL/min GFRAA 23 >60 ML/MIN EGFR 19 >60 ml/min GLU 140 74-100 mg/dl CA 8.1 8.4-10.2 mg/dl BILIT 1.7 0.2-1.3 mg/dl AST 33 14-36 U/L Delta: 52 on -1502 ALT 35 12-78 U/L TP 5.6 6.3-8.2 g/dl ALB 3.0 3.5-5.0 g/dl GLOB 2.6 1.3-3.2 g/dL AGRATIO 1.2 1.1-1.8 ALP 145 38-126 U/L H-CBC Reviewed date:12/10/2024 09:06:40 AM Interpretation: Performing Lab: Notes/Report: WBC 15.1 4.8-10.8 K/mm3 RBC 2.75 4.20-5.40 M/mm3 HGB 8.8 12.2-16.2 g/dL HCT 25.0 37.0-47.0 % MCV 90.9 81-99 fl MCH 32.0 27.0-31.2 pg MCHC 35.2 31.8-35.4 g/dL RDW-SD 45.1 RDW 13.7 11.5-17.5 % PLT 185 142-424 K/mm3 MPV 9.1 7.4-10.4 fl NE% 89.1 37.0-80.0 % LY% 6.0 10-50 % MO% 3.3 1.7-9.3 % EO% 0.5 0.1-12.0 % BA% 0.3 0.1-2.0 % NRBC% 0 IG% 0.8 NE# 13.4 1.8-7.8 K/mm3 LY# 0.9 0.7-4.5 K/mm3 MO# 0.5 0.1-1.0 K/mm3 EO# 0.1 0.0-0.4 Kmm3 BA# 0.0 0-0.2 K/mm3 NRBC# 0 IG# 0.12 CBC Venipuncture (in house) Reviewed date:11/01/2024 05:11:29 [...] 44 Performing Lab: Notes/Report: Test performed by [facility], [address] , [address] , [place] [address] Mitchel Dior MD, Pst Specialist CLIA: [id number] Sodium 141 135-145 mmol/L Potassium 4.3 3.5-5.3 [...] Interpretation:Normal Performing Lab: Notes/Report: Test performed by [facility] [address] [place] [address] , [address], [place] [address] Mitchel Dior MD, Pst Specialist CLIA: [id number] Ferritin 75.4 13.0-301.0 ng/mL P-Iron Reviewed date:11/01/2024 05:11:29 PM Interpretation:Normal Performing Lab: Notes/Report: Test performed by [facility] [address] [place] [address] , [address], [place] [address] Mitchel Dior MD, Pst Specialist CLIA: [id number] Iron 44 37-145 ug/dL Urinalysis - Inhouse Reviewed date:12/13/2024 03:44:07 PM [...] Interpretation: Performing Lab: Notes/Report: Test performed by [facility] , [address], [place] [address] Mitchel Dior MD, Pst Specialist CLIA: [id number] Amylase 42 28-100 U/L P-Comprehensive Metabolic Pa cruz (CMP) Reviewed date:12/06/2024 05:54:12 PM Interpretation: Performing Lab: Notes/Report: Test performed by [facility] , [address], [place] [address] Mitchel Dior MD, Pst Specialist CLIA: [id number] Sodium 127 135-145 mmol/L Potassium 3.6 3.5-5.3 [...] Interpretation: Performing Lab: Notes/Report: Test performed by [facility] [address] , [address], [place] [address] Mitchel Dior MD, Pst Specialist CLIA: [id number] Lipase 14.0 13.0-60.0 U/L Covid test (in house) Reviewed date:12/06/2024 05:54:12 PM Interpretation: Performing Lab: Notes/Report: Result: neg H-ABG Reviewed date:03/17/2024 08:55:48 PM Interpretation: Performing Lab: Notes/Report: PHART 7.57 7.35-7.45 mmol/L CRITICAL RESULT Results called to:Shira CULVER by Edy Stark, RT at 2254 on 03/16/24 [id number] 24.0 35.0-45.0 mmhg PO2ART 68.4 80-100 mmhg [id number] 21.3 22.0-26.0 mmhg [id number] 22.1 23-27 mmhg BEART -0.7 -2.4-2.3 mmol/L [id number] 95 90-100 % O2 2 KD Y SOURCE Left Radial H-CBC Reviewed date:12/10/2024 09:06:40 AM Interpretation: Performing Lab: Notes/Report: WBC 11.5 4.8-10.8 K/mm3 RBC 3.07 4.20-5.40 M/mm3 HGB 9.7 12.2-16.2 g/dL HCT 28.0 37.0-47.0 % MCV 91.2 81-99 fl MCH 31.6 27.0-31.2 pg MCHC 34.6 31.8-35.4 g/dL RDW-SD 46.9 RDW 14.0 11.5-17.5 % PLT 250 142-424 K/mm3 Delta: 185 on 12/07/24-0910 MPV 9.6 7.4-10.4 fl NE% 69.8 37.0-80.0 % LY% 17.1 10-50 % MO% 10.0 1.7-9.3 % EO% 1.3 0.1-12.0 % BA% 0.3 0.1-2.0 % NRBC% 0 IG% 1.5 NE# 8.0 1.8-7.8 K/mm3 LY# 2.0 0.7-4.5 K/mm3 MO# 1.2 0.1-1.0 K/mm3 EO# 0.2 0.0-0.4 Kmm3 BA# 0.0 0-0.2 K/mm3 NRBC# 0 IG# 0.17 H-BMP Reviewed date:12/10/2024 09:06:40 AM Interpretation: Performing Lab: Notes/Report: NA 131 136-145 mmol/L K 3.7 3.5-5.1 mmoL/L CL 99 98-107 mmol/L CO2 23 22.0-30.0 mmol/L GAP 12.7 5-15 mEq/L BUN 26 7-17 mg/dl Delta: 35 on CREATT 1.70 0.52-1.04 mg/dl CRCLE 24 50-200 mL/min GFRAA 35 >60 ML/MIN Delta: 28 on EGFR 29 >60 ml/min GLU 108 74-100 mg/dl CA 8.3 8.4-10.2 mg/dl Influenza Screen (in house) Reviewed date:11/27/2024 01:30:54 [...] PM Interpretation: Performing Lab: Notes/Report: Result: neg Urinalysis - Inhouse Reviewed date:12/26/2024 04:58:01 PM [...] 36 Performing Lab: Notes/Report: Test performed by [facility], [email or web address] [facility] , [address], [place] [address] Mitchel Dior MD, Pst Specialist CLIA: [id number] Sodium 137 135-145 mmol/L Potassium 5.3 3.5-5.3 [...] F/U Performing Lab: Notes/Report: Negative, Annual F/U Urinalysis - Inhouse Reviewed date:06/05/2024 11:02:43 PM [...] Interpretation: Performing Lab: Notes/Report: Test performed by [facility] [address] [place] [address] [address], [place] [address] Mitchel Dior MD, Pst Specialist CLIA: [id number] Vitamin B12 8136 761-4486 pg/mL P-Comprehensive Metabolic Pa cruz (CMP) Reviewed date:06/07/2024 04:41:03 PM Interpretation: Performing Lab: Notes/Report: Test performed by [facility] [address] [place] [address] [address], [place] [address] Mitchel Dior MD, Pst Specialist CLIA: [id number] Sodium 130 135-145 mmol/L Potassium 5.0 3.5-5.3 [...] Interpretation: Performing Lab: Notes/Report: Test performed by [facility] [address] [place] [address] [address], [place] [address] Mitchel Dior MD, Pst Specialist CLIA: [id number] Specimen Source Urine - Void Culture, Urine See Below Final Report : No Significant Growth P-Ferritin Reviewed date:06/07/2024 04:41:02 PM Interpretation: Performing Lab: Notes/Report: Test performed by [facility] [address] , [address], [place] [address] Mitchel Dior MD, Pst Specialist CLIA: [id number] Ferritin 438.0 13.0-301.0 ng/mL P-Iron Reviewed date:06/07/2024 04:41:02 PM Interpretation: Performing Lab: Notes/Report: Test performed by [facility] [address] , [address], [place] [address] Mitchel Dior MD, Pst Specialist CLIA: [id number] Iron 34 37-145 ug/dL P-Vitamin D 25-Hydroxy Reviewed date:06/07/2024 04:41:02 PM Interpretation: Performing Lab: Notes/Report: Test performed by [facility] [address] , [address], [place] [address] Mitchel Dior MD, Pst Specialist CLIA: [id number] Vitamin D 25-Hydroxy 60.6 30.0-100.0 ng/mL Interpretation [...] Diagnosis 1 Memory loss (R41.3) Referral Organization [facility] Referring Provider First Name Charlene Referring Provider Last Name Cy Referring Provider Speciality Physician Prosthetic Assistant Referred Provider Neurology, . Referred Provider Specialty Neurology General Notes Charlene Benoit 2024 11:59:38 AM > Needs an appt with Tatiana Guerra Brynn 06/19/2024 12:01:06 PM > faxed to [facility] NeurologyTatiana Brynn 06/28/2024 11:09:20 AM > spoke [...] roni l Orally Once a day Active Eliquis 5 MG 1 tablet Orally twic e a day; Duration: 90 days Active Ferrous Sulfate 325 (65 Fe) MG 1 tablet Orally twice a day; Duration: 30 days 12/18/2024 Active Atorvastatin Calcium 10 MG 1 tablet Orally Once a day; Duration: 90 days Active levoFLOXacin 500 MG 1 tablet Orally Once a day Not-Taking Multivitamin - 1 tablet Orally Once a day; Duration: 30 day(s) Active Flaxseed Oil 1200 MG as directed Orally Active Melatonin 3 MG 1 tablet at [...] (65yr and older) IM Intramuscular 12/28/2022 Administered Fluzone High Dose (65yr and older) IM Intramuscular 12/26/2024 Administered PNEUMOVAX 23 VACCINE IM Intramuscular 04/14/2021 Administe red Prevnar (PCV13) IM Intramuscular 11/20/2017 Administered Prevnar (PCV20) IM Intramuscular 12/28/2022 Administered Tetanus Tdap-Adacel (over 7yrs) Unknown 08/02/2017 Administered Problems Problem Type SNOMED Code ICD Code Onset Dates Problem Status W/U Status Risk Notes Problem Essential hypertension (17688632) Essential (primary) hypertension (I10) Active confirmed Problem Sciatica (88980768) Sciatica (M54.30) Active confirmed Problem History of pulmonary embolus (831162903) History of pulmonary embolism (Z86.711) Active confirmed Problem Vitamin D deficiency (96014324) Vitamin D deficiency (E55.9) Active confirmed Problem Osteopenia (048791560) Osteopenia (M85.80) Active confirmed Problem Sciatic nerve lesion (990433172) Piriformis syndrome of left side (G57.02) Active confirmed Problem Osteoarthritis (992179964) Osteoarthritis (M19.90) Active confirmed Problem Iron deficiency anemia (65119275) Iron deficiency anemia (D50.9) Active confirmed Problem Paroxysmal atrial fibrillation (206619670) Paroxysmal atrial fibrillation (I48.0) Active confirmed Problem Acute exacerbation of chronic obstructive airways disease (346456358) COPD exacerbation (J44.1) Active confirmed Problem Memory loss (79632618) Memory loss (R41.3) Active confirmed Problem Hyperlipidemia (54328867) Other hyperlipidemia (E78.4) Active confirmed Problem Metabolic encephalopathy (00712029) Metabolic encephalopathy (G93.41) Active confirmed Problem Conductive hearing loss, bilateral (118970167) Conductive hearing loss, bilateral (H90.0) Active confirmed Problem Functional dyspepsia (1645544) Functional dyspepsia (K30) Active confirmed Problem Age-related osteoporosis (930250880) Age-related osteoporosis without current pathological fracture (M81.0) Active confirmed Problem Urge incontinence of urine (77334114) Urge incontinence (N39.41) Active confirmed Problem Constipation (68174293) Constipation, unspecified constipation type (K59.00) Active confirmed Problem COPD - Chronic obstructive pulmonary disease (21736519) Chronic obstructive pulmonary disease, unspecified COPD type (J44.9) Active confirmed Problem Anemia (974115781) Anemia, unspecified type (D64.9) Active confirmed Problem Colostomy present (416268175) Status post colostomy (Z93.3) Active confirmed Problem Insomnia (968891975) Insomnia, unspecified type (G47.00) Active confirmed Problem Atrial fibrillation with rapid ventricular response (448276161215534) Atrial fibrillation with rapid ventricular response (I48.91) Active confirmed Problem Urinary incontinence (086260775) Urinary incontinence, unspecified type (R32) Active confirmed Problem Allergic rhinitis (91741680) Seasonal allergic rhinitis due to other allergic trigger (J30.89) Active confirmed Problem Aortic valve sclerosis (64939834) Aortic valve sclerosis (I35.8) Active confirmed Problem Lesion of liver (623318418) Liver lesion (K76.9) Active confirmed Problem Prolapse of uterus (54619940) Prolapse of uterus (N81.4) Active confirmed Problem Localized, primary osteoarthritis of the ankle and/or foot (244030995) 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) Active confirmed Problem Colostomy and enterostomy malfunction (893512279) Colostomy complication (K94.00) Active confirmed Problem Sciatica (73013595) Sciatica, unspecified laterality (M54.30) Active confirmed Problem Hyperlipidemia (96660845) Other hyperlipidemia (E78.49) Active confirmed Problem Altered mental status (665852966) Acute alteration in mental status (R41.82) Active confirmed Problem Disorder of brain (24011463) Acute encephalopathy (G93.40) Active confirmed Problem Vaginal pessary in situ (7583080597097) Presence of pessary (Z96.0) Active confirmed Problem Anemia (377658606) Acute anemia (D64.9) Active confirmed Problem Gastric reflux (272137088) Gastric reflux (K21.9) Active confirmed Vital Signs Heart Rate 73 /min 12/26/2024 Blood pressure diastolic 70 mm Hg 12/26/2024 Height 58 in 12/26/2024 Blood pressure systolic 142 mm Hg 12/26/2024 Weight 112.6 lbs 12/26/2024 BMI 23.53 kg/m2 12/26/2024 Encounters Encounter Location Date Provider [facility] [address] [place] [id number] 02/29/2024 Charlene Benoit Acute anemia D64.9 ; Acute URI J06.9 ; Microscopic hematuria R31.29 ; Wheezing R06.2 ; Vitamin D deficiency E55.9 ; Vitamin B12 deficiency E53.8 and Osteopenia, unspecified location M85.80 [facility] [address] [place] [id number] 03/07/2024 Mraie Harrison Age-related osteoporosis without current pathological fracture M81.0 [facility] [address] [id number] 03/12/2024 R Jayant Barrera COPD exacerbation J4 4.1 and Iron deficiency anemia D50.9 [facility] [address] [place] [id number] 04/26/2024 Charlene Benoit Perforation of intestine K63.1 ; Status post colostomy Z93.3 ; Pneumonia of both lower lobes due to infectious organism J18.9 ; Pleural effusion, bilateral J90 ; Essential (primary) hypertension I10 ; History of pulmonary embolism Z86.711 ; Paroxysmal atrial fibrillation I48.0 ; Other hyperlipidemia E78.4 and Chronic anemia D64.9 [facility] [address] [place] [id number] 06/05/2024 Charlene Benoit Essential (primary) hypertension I10 ; Paroxysmal atrial fibrillation I48.0 ; Recurrent UTI N39.0 ; Iron deficiency anemia D50.9 ; Presence of pessary Z96.0 ; Chronic obstructive pulmonary disease, unspecified COPD type J44.9 ; Vitamin B12 deficiency E53.8 ; Vitamin D deficiency E55.9 and Weight loss R63.4 [facility] [address] [facility] [address] [place] [id number] 06/19/2024 Charlene Benoit Hyponatremia E87.1 ; Hyperkalemia E87.5 ; Urinary tract infection without hematuria, site unspecified N39.0 ; Metabolic encephalopathy G93.41 ; Acute renal failure, unspecified acute renal failure type N17.9 ; Memory loss R41.3 ; Iron deficiency E61.1 ; Generalized weakness R53.1 and BMI 21.0-21.9, adult Z68.21 [facility] [address] [facility] [address] [place] [id number] 06/21/2024 Charlene Benoit Microscopic hematuri a R31.29 ; Insomnia, unspecified type G47.00 and BMI 22.0-22.9, adult Z68.22 [facility] [address] [facility] [address] [place] [id number] 07/31/2024 Charlene Benoit Lower extremity corky a R60.0 ; Colostomy complication K94.00 and Acute cough R05.1 [facility] [address] [place] [id number] 10/23/2024 Charlene Benoit Preop general physic al exam Z01.818 and BMI 23.0-23.9, adult Z68.23 [facility] [address] [place] [id number] 10/31/2024 Charlene Benoit Iron deficiency anem ia D50.9 ; Essential (primary) hypertension I10 and Pre-op evaluation Z01.818 [facility] [address] [place] [id number] 11/27/2024 Charlene Benoit Acute URI J06.9 and BMI 23.0-23.9, adult Z68.23 [facility] [address] [place] [id number] 12/05/2024 Charlene Benoit Dysuria R30.0 ; Acut e URI J06.9 ; Other fatigue R53.83 and Acute abdominal pain R10.9 [facility] [address] [place] [id number] 12/13/2024 Charlenemagali Benoit Bacteremia R78.81 ; Unspecified Escherichia coli [E. coli] as the cause of diseases classified elsewhere B96.20 ; Acute UTI N39.0 ; Acute diarrhea R19.7 ; Acute renal failure, unspecified acute renal failure type N17.9 and Liver lesion K76.9 [facility] [address] [place] [id number] 12/17/2024 Jamal Tujunga Bacteremia R78.81 ; Unspecified Escherichia coli [E. coli] as the cause of diseases classified elsewhere B96.20 ; Renal insufficiency N28.9 ; Urinary incontinence, unspecified type R32 ; Urinary tract infection without hematuria, site unspecified N39.0 and Anemia, unspecified type D64.9 [facility] [address] [place] [id number] 12/26/2024 Charlene Benoit Adult general medica l examination Z00.00 ; Renal insufficiency N28.9 ; Anemia, unspecified type D64.9 ; Paroxysmal atrial fibrillation I48.0 ; Essential (primary) hypertension I10 ; Encounter for immunization Z23 ; Aortic valve sclerosis I35.8 ; Seasonal allergic rhinitis due to other allergic trigger J30.89 ; Urinary frequency R35.0 ; Screening mammogram, encounter for Z12.31 ; BMI 23.0-23.9, adult Z68.23 and Osteopenia M85.80 [facility] [address] [place] [id number] 03/01/2024 Charlene Crowdy [facility] [address] [place] [id number] 04/17/2024 R Jayant Bruce [facility] [address] [place] [id number] 05/01/2024 Charlene Crowdy [facility] [address] [place] [id number] 05/27/2024 R Jayant Bruce [facility] [address] [place] [id number] 06/07/2024 Charlene Crowdy [facility] [address] [place] [id number] 06/20/2024 Charlene Crowdy [facility] [address] [place] [id number] 07/10/2024 R Ajyant Bruce [facility] [address] [place] [id number] 07/31/2024 R Jayant Bruce [facility] [address] [place] [id number] 09/05/2024 R Jayant Bruce [facility] [address] [place] [id number] 09/30/2024 Bettie Willson [facility] [address] [place] [id number] 10/21/2024 R Jayant Bruce [facility] [address] [place] [id number] 10/25/2024 Charlene Crowdy [facility] [address] [place] [id number] 10/30/2024 Charlene Crowdy [facility] [address] [place] [id number] 11/04/2024 R Jayant Bruce Osteoporosis screeni ng Z13.820 and Menopause Z78.0 [facility] [address] [place] [id number] 11/27/2024 Charlene Crowdy [facility] [address] [place] [id number] 12/06/2024 R Jayant Bruce [facility] [address] [place] [id number] 12/09/2024 R Jayant Bruce [facility] [address] [place] [id number] 12/11/2024 Charlene Crowdy Diarrhea in adult patient R19.7 [facility] [address] [place] [id number] 12/13/2024 Charlene Crowdy [facility] [address] [place] [id number] 12/13/2024 Charlene Crowdy [facility] [address] [place] [id number] 12/17/2024 R Jayant Bruce [facility] [address] [place] [id number] 12/18/2024 Jamal Tujunga [facility] [address] [place] [id number] 01/01/2025 Charlene Crowdy Assessments Encounter Date Diagnosis (ICD Code) Assessment Notes Treatment Notes Treatment Clinical Notes Section Notes 02/29/2024 Acute URI (ICD-10 - J06.9) Has [...] intestine (ICD-10 - K63.1) Discharge summaries from [facility] reviewed. She has been on eliquis at [place] but her daughter states she has the [...] 10/23/2024 BMI 23.0-23.9, adult (ICD-10 - Z68.23) 11/04/2024 Menopause (ICD-10 - Z78.0) 11/04/2024 Osteoporosis screening (ICD-10 - Z13.820) 11/27/2024 Acute URI (ICD-10 - J06.9) 11/27/2024 BMI 23.0-23.9, adult (ICD-10 - Z68.23) 12/05/2024 Dysuria (ICD-10 - R30.0) 10/31/2024 Iron deficiency anemia (ICD-10 - D50.9) 12/05/2024 Acute URI (ICD-10 - J06.9) 12/11/2024 Diarrhea in adult patient (ICD-10 - R19.7) 12/13/2024 Unspecified Escherichia coli [E. coli] as the cause of diseases classified elsewhere (ICD-10 - B96.20) 12/13/2024 Bacteremia (ICD-10 - R78.81) WBC is improving. Will continue abx and f/u in 2 weeks. 12/17/2024 Unspecified Escherichia coli [E. coli] as the cause of diseases classified elsewhere (ICD-10 - B96.20) 12/17/2024 Bacteremia (ICD-10 - R78.81) 12/26/2024 Renal insufficiency (ICD-10 - N28.9) 12/26/2024 Adult general medical examination (ICD-10 - Z00.00) Patient instructed to return to office Annually for Annual Wellness Visits to include annual screenings of Pain assessment, Functional Ability assessment, Cognitive Ability assessment, Fall Risk assessment, Depression screening and Bladder control screening. 12/26/2024 Anemia, unspecified type (ICD-10 - D64.9) Plan to recheck CBC at follow up visit 12/17/2024 Renal insufficiency (ICD-10 - N28.9) 12/13/2024 Acute UTI (ICD-10 - N39.0) 12/05/2024 Other fatigue (ICD-10 - R53.83) 10/31/2024 [...] go down and make an appt with [facility]. 04/26/2024 Pneumonia of both lower lobes due to infectious organism (ICD-10 - J18.9) 02/29/2024 Microscopic hematuria (ICD-10 - R31.29) 02/29/2024 Wheezing (ICD-10 - R06.2) 06/05/2024 Iron deficiency anemia (ICD-10 - D50.9) Has been getting iron infusions and was feeling better until the past week. 04/26/2024 Pleural effusion, bilateral (ICD-10 - J90) 06/19/2024 Metabolic encephalopathy (ICD-10 - G93.41) 12/13/2024 Acute diarrhea (ICD-10 - R19.7) Improving 10/31/2024 Pre-op evaluation (ICD-10 - Z01.818) 12/17/2024 Urinary incontinence, unspecified type (ICD-10 - R32) 12/26/2024 Paroxysmal atrial fibrillation (ICD-10 - I48.0) 12/26/2024 Essential (primary) hypertension (ICD-10 - I10) 12/05/2024 Acute abdominal pain (ICD-10 - R10.9) Will admit for further evaluation and treatment. 12/13/2024 Acute renal failure, unspecified acute renal failure type (ICD-10 - N17.9) 12/17/2024 Urinary tract infection without hematuria, site unspecified (ICD-10 - N39.0) 06/05/2024 Presence of pessary (ICD-10 - Z96.0) [...] J44.9) 06/19/2024 Memory loss (ICD-10 - R41.3) 12/17/2024 Anemia, unspecified type (ICD-10 - D64.9) Plan to recheck CBC at follow up visit 12/13/2024 Liver lesion (ICD-10 - K76.9) 12/26/2024 Encounter for immunization (ICD-10 - Z23) 12/26/2024 Aortic valve sclerosis (ICD-10 - I35.8) 06/19/2024 Iron deficiency (ICD-10 - E61.1) 06/05/2024 Vitamin B12 deficiency (ICD-10 - E53.8) 02/29/2024 Osteopenia, unspecified location (ICD-10 - M85.80) Pt is overdue on the prolia. 04/26/2024 Paroxysmal atrial fibrillation (ICD-10 - I48.0) 04/26/2024 Other hyperlipidemia (ICD-10 - E78.4) 06/05/2024 Vitamin D deficiency (ICD-10 - E55.9) 06/19/2024 Generalized weakness (ICD-10 - R53.1) 12/26/2024 Seasonal allergic rhinitis due to other allergic trigger (ICD-10 - J30.89) 12/26/2024 Urinary frequency (ICD-10 - R35.0) 06/19/2024 BMI 21.0-21.9, adult (ICD-10 - Z68.21) 06/05/2024 Weight loss (ICD-10 - R63.4) Has lost a lot of weight since her colostomy. Her daugther states she does eat but much less than she did before the surgery. Encouraged protein shakes if she didn't eat. 04/26/2024 Chronic anemia (ICD-10 - D64.9) 12/26/2024 Screening mammogram, encounter for (ICD-10 - Z12.31) 12/26/2024 BMI 23.0-23.9, adult (ICD-10 - Z68.23) 12/26/2024 Osteopenia (ICD-10 - M85.80) 12/17/2024 Other Discharge summa ry with available lab/diagnostic imaging results obtained and reviewed. Discharge medication list reconciled. Appropriate counseling provided. Moderate Complexity Plan Of Treatment Pending Test Test Name Order Date Bone density 11/04/2024 Mammogram 08/30/2023 Hemoccult- IFOBT (in house) 03/12/2024 H-CBC 06/19/2024 H-DIARRHEA PANEL 12/11/2024 Insurance Providers Payer Name Payer Address Payer Phone Subscriber Number Group Number Insured Name Patient Relationship to Insured Coverage Start Date Coverage End Date [employer] (MEDICARE) [address] [address] [place] [address] [id number] QUEENIE ROSE Self - patient is the insured MEDICA[employer] [address] [place] [address] [id number] QUEENIE ROSE Self - patient is the [...]
--- OUTSIDE RECORDS SUMMARY | 2025-02-03 09:13 | XMS_ITS | Referral Summary ---
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
--- OUTSIDE RECORDS SUMMARY | 2025-02-03 09:13 | XMS_ITS | Encounter Summary ---
Author Organization [facility] [place] [address] Care Team Providers Care Insulation Mechanic Name Role Phone Chas Barrera Primary Care Provider [phone] Encounter Details Date Type Department Care Team (Late st Contact Info) Description 01/17/2025 Results Follow-Up [facility] [facility] [address] [address] Leta Dupont MD [address] [place], [place] [id number] PATHOLOGY TISSUE REQUEST Social History Tobacco Use Types Packs/Day Years Used Date Smoking Tobacco: Never Smokeless Tobacco: Never Alcohol Use Standard Drinks/Week Comments Not Currently 0 (1 standard drink = 0.6 oz pur e alcohol) [facility] Utilities Answer Date Recorded In the past 12 months has [employer], gas, oil, or water [employer] threatened to shut off services in your home? No 11/08/2024 Overall Financial Resource Strain (CARDIA) Answe r Date Recorded How hard is it for you to pa y for the very basics like food, housing, medical care, and heating? Not hard at all 11/08/2024 PHQ-2 Answer Date Recorded PHQ-2 Total Score 0 11/08/2024 [facility] [place] of Occupat ional Health - Occupational Stress [...] money to get more. Never true 11/08/2024 [facility] IP Transportation Answer D ate Recorded [...] Progress Notes * Leta Dupont MD - 01/17/2025 10:37 PM EST Patient notified of normal result on MyChart. No further action necessary. Thanks! Mariajose documented in this encounter Plan of Treatment Upcoming Encounters Date Type Department Care Team (Late st Contact Info) Description 02/26/2025 9:00 AM EST Office Visit [facility] [address] [address] Antonina Ji PA-C [address] [place] [address] documented as of this encounter Visit Diagnoses Not on filedocumented in this encounter Care Teams Insulation Mechanic Relationship Specialty Start Date End Date Chas Barrera [address] [place] [address] PCP - General Family Medicine 11/08/24 documented as of this encounter
--- OUTSIDE RECORDS SUMMARY | 2025-02-03 09:13 | XMS_ITS | Encounter Summary ---
Author Organization [facility] [place] [address] Care Team Providers Care Field Auto Appraiser Name Role Phone Chas Barrera Primary Care Provider [phone] Encounter Details Date Type Department Care Team (Latest Contact Info) Description 01/16/2025 Travel Social History Tobacco Use Types Packs/Day Years Used Date Smoking Tobacco: Never Smokeless Tobacco: Never Alcohol Use Standard Drinks/Week Comments Not Currently 0 (1 standard drink = 0.6 oz pur e alcohol) [facility] Utilities Answer Date Recorded In the past 12 months has [employer], gas, oil, or water company threatened to shut off services in your home? No 11/08/2024 Overall Financial Resource Strain (CARDIA) Answe r Date Recorded How hard is it for you to pa y for the very basics like food, housing, medical care, and heating? Not hard at all 11/08/2024 PHQ-2 Answer Date Recorded PHQ-2 Total Score 0 11/08/2024 [facility] [place] of Occupat ional Health - Occupational Stress [...] money to get more. Never true 11/08/2024 [facility] IP Transportation Answer D ate Recorded In [...] AM EST Office Visit [facility] [address] [address] Antonina Ji PA-C [address] [place] [address] documented as of this encounter Visit Diagnoses Not on filedocumented in this encounter Care Teams Field Auto Appraiser Relationship Specialty Start Date End Date Chas Barrera [address] [place] [address] [address] [place] [address] PCP - General Family Medicine 11/08/24 documented as of this encounter
--- OUTSIDE RECORDS SUMMARY | 2025-02-03 09:13 | XMS_ITS | Encounter Summary ---
Author Organization [place] [address] Care Team Providers Care Highway Maintenance Technician Name Role Phone Chas Barrera Primary Care Provider [phone] Reason for Visit * Reason Onset Date Comments Post-op Call 01/17/2025 Encounter Details Date Type Department Care Team (Late st Contact Info) Description 01/17/2025 Telephone [facility] [address] [address] Melanie Villagomez LPN Post-op Call Social History Tobacco Use Types Packs/Day Years Used Date Smoking Tobacco: Never Smokeless Tobacco: Never Alcohol Use Standard Drinks/Week Comments Not Currently 0 (1 standard drink = 0.6 oz pur e alcohol) [facility] Utilities Answer Date Recorded In the past 12 months has [employer], gas, oil, or water [employer] threatened to shut off services in your home? No 11/08/2024 Overall Financial Resource Strain (CARDIA) Answe r Date Recorded How hard is it for you to pa y for the very basics like food, housing, medical care, and heating? Not hard at all 11/08/2024 PHQ-2 Answer Date Recorded PHQ-2 Total Score 0 11/08/2024 [facility] of Occupat ional Health - Occupational Stress [...] money to get more. Never true 11/08/2024 [facility] IP Transportation Answer D ate Recorded [...] Telephone Encounter - Melanie Villagomez LPN - 01/17/2025 9:35 AM ESTSummary: Post Op Call Urogynecology Post Operative Phone Call Patient is still inpatient Attempted to call patient to evaluate post-op questions or concerns. LM for daughterKellie, and encouraged patient to return call if needed. Patient needs Void Trial, her 6 week PO visit is scheduled Jen Villagomez LPN documented in this encounter Plan of Treatment Upcoming Encounters Date Type Department Care Team (Late st Contact Info) Description 02/26/2025 9:00 AM EST Office Visit [facility] [address] [phone] Antonina Ji PA-C [address] [place] [address] documented as of this encounter Visit Diagnoses Not on filedocumented in this encounter Care Teams Highway Maintenance Technician Relationship Specialty Start Date End Date Chas Barrera [address] [place] [address] PCP - General Family Medicine 11/08/24 documented as of this encounter
--- OUTSIDE RECORDS SUMMARY | 2025-02-03 09:14 | XMS_ITS | Clinical Summary ---
Author Organization [facility] [place] Address [address] [place] [address] Phone Care Team Providers Care Veneer Glue Jointer Feedback Name Role Phone Chas Barrera Primary Care Provider [phone] Allergies No known active allergies Medications NIFEdipine [...] Oral Tablet Take by mouth daily. Active Cqkyn-7-KVN-EP A-Fish Oil (FISH OIL) 1,200 (144-216) mg Oral Capsule Take by mouth. Active acetaminophen (TYLENOL) 500 mg Oral Tablet Take 2 Tablets by mouth every 6 hours. 40 Tablet Active docusate sodium (COLACE) 100 mg Oral Capsule Take 1 Capsule by mouth 2 times daily. 60 Capsule 2 Active ondansetron (ZOFRAN-ODT) 4 mg Oral Tablet, Rapid Dissolve Dissolve 1 Tablet by mouth every 6 hours as needed for Nausea. 30 Tablet Active senna (SENOKOT) 8.6 mg Oral Tablet Take 1 Tablet by mouth daily as needed for Constipation. 30 Tablet 1 5 Active traMADoL (ULTRAM) 50 mg Oral Tablet Take 1 Tablet by mouth every 6 hours as needed for Pain (surgery). 20 Tablet 5 Active oxyCODONE (ROXICODONE) 5 mg Oral Tablet Take 1 Tablet by mouth every 4 hours as needed for Acute Pain > 3 Days Medically Necessary (R52). 20 Tablet 11/11/2024 12:18 PM EDT 5 01/18/20 25 Discontinue d(Stop Taking at Discharge) docusate sodium (COLACE) 100 mg Oral Capsule Take by mouth 2 times daily. 01/18/20 25 Discontinue d(Stop Taking at Discharge) metroNIDAZOLE (FLAGYL) 500 mg Oral Tablet Take 1 Tablet by mouth 2 times daily for 7 days. 14 Tablet 5 01/25/20 Active Problems Problem Noted Date Diagnosed Date Uterovaginal prolapse, complete 01/16/2025 Colostomy status 10/07/2024 Insomnia 07/10/2024 Mixed stress [...] Encounters Date Type Department Care Team Description 01/21/2025 11:00 AM EST Clinical Support [facility] Urogynecology [address] [address] Yolanda Doe MA Uterovaginal prolapse, incomplete (Primary Dx) 01/17/2025 Results Follow-Up [facility] Urogynecology [address] [address] Leta Dpuont MD PATHOLOGY TISSUE REQUEST 01/17/2025 Telephone [facility] Urogynecology [address] [address] Melanie Villagomez LPN Post-op Call 01/16/2025 11:32 AM EST - 01/16/2025 1:07 PM EST Surgery [facility] [address] [place] [address] Leta Dupont MD [place] COLPOCLEISIS 01/16/2025 10:26 AM EST Anesthesia Event [facility] [address] [place] [address] Sean Rizo MD Zehnder, Wende, DIRECTOR OF HEMOPHILIA 01/16/2025 9:03 AM EST - 01/17/2025 10:11 AM EST Hospital Encounter [facility] [address] [place] [address] Leta Dupont MD Uterovaginal prolapse, incomplete Discharge Disposition: Home or Self Care 01/16/2025 Travel 01/09/2025 10:15 AM EDT - 01/09/2025 11:59 PM EDT Hospital Encounter [facility] PRE-ADMIT TESTING [facility] [address] Preop testing (Primary Dx); Anemia, unspecified type; Uterovaginal prolapse Discharge Disposition: Home or Self Care 01/09/2025 Travel 01/09/2025 Orders Only [facility] [address] [address] Melanie Villagomez LPN Uterovaginal prolapse, incomplete (Primary Dx) 01/09/2025 Telephone [facility] [address] [address] Melanie Villagomez LPN Pre-op Call 11/22/2024 9:00 AM EDT - 11/22/2024 11:59 PM EDT Hospital Encounter [facility] [place] [address] Jennifer Ely, DIRECTOR OF HEMOPHILIA Follow-up examination following surgery (Primary Dx); History of colostomy reversal Discharge Disposition: Home or Self Care 11/07/2024 7:33 AM EDT Anesthesia Event [facility] [place] [address] Christal Owens MD Wilson, Christine E, DIRECTOR OF HEMOPHILIA 11/07/2024 7:30 AM EDT - 11/07/2024 11:50 AM EDT Surgery [facility] [place] [address] Monica Arzola MD DAVINCI ROBOTIC REVERSAL NII POUCH 11/07/2024 5:28 AM EDT - 11/11/2024 1:27 PM EDT Hospital Encounter [facility] [address] [place] [address] Monica Arzola MD Colostomy status (HCC) Discharge Disposition: Home or Self Care 11/07/2024 Travel from Last 3 Months Immunizations Immunization Administration Dates Next Due Influenza High Dose 12/31/2019,11/20/2017 Pneumococcal Conjugate Vaccine 13 Valent 018 Pneumococcal Conjugate Vaccine 20 Valent 023 Pneumococcal Polysaccharide 23 Valent 04/14/2021 Quadrivalent Influenza High Dose 04/24/2024,12/11,04/14/2021 TST,Unspecified Formulation 04/04/2024, Tdap 08/02/2017 Surgical History Surgery Date Site/Laterality Comments COLON SURGERY 03/13/2024 APPENDECTOMY 1997 OTHER SURGICAL HISTORY Appendectomy 1996; Colectomy 04/06; colostomy reversal 11/04 COLONOSCOPY VA COLPOCLEISIS [place] TYPE 01/16/2025 N/A [place] Colpocleisis, Posterior Repair with levator plication, vaginal biopsy, Cystoscopy; Surgeon: Leta Dupont MD; Location: [facility]; Service: Urogynecology RECTOCELE REPAIR 01/16/2025 N/A .; Surgeon: Leta Dupont MD; Location: [facility]; Service: Urogynecology CYSTOSCOPY 01/16/2025 Urethra/N/A Surgeon: Leta Dupont MD; Location: [facility]; Service: Urogynecology VAGINA SURGERY 01/16/2025 Surgeon: Leta Dupont MD; Location: [facility]; Service: Urogynecology 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 Date Comments Paroxysmal atrial fibrillation (HCC) Mixed hyperlipidemia Essential (primary) hypertension Irregular heart beat History of Afib Urinary tract infection Prolapsed, uterovaginal, incomplete Anemia Encounter for blood transfusion Colostomy status (HCC) reversed Aortic valve regurgitation Ascites Gastroesophageal reflux disease without esophagi tis Metabolic encephalopathy Perforation and abscess of l arge intestine concurrent with and due to diverticulitis Pleural effusion Pulmonary embolism (HCC) Mixed stress and urge urinary incontinence Family History 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 Relation Name Comments Anesth Problems Neg Hx Relation Name Status Comments Mother Social History Tobacco Use Types Packs/Day Years Used Date Smoking Tobacco: Never Smokeless Tobacco: Never Tobacco Cessation:Counseling Given: Not Answered Alcohol Use Standard Drinks/Week Comments Not Currently 0 (1 standard drink = 0.6 oz pur e alcohol) [facility] Utilities Answer Date Recorded In the past 12 months has e [employer] gas, oil, or water [employer] threatened to shut off services in your home? No 11/08/2024 Overall Financial Resource Strain (CARDIA) Answe r Date Recorded How hard is it for you to pa y for the very basics like food, housing, medical care, and heating? Not hard at all 11/08/2024 PHQ-2 Answer Date Recorded PHQ-2 Total Score 0 11/08/2024 [facility] [place] of Occupat ional Health - Occupational Stress [...] money to get more. Never true 11/08/2024 [facility] IP Transportation Answer D ate Recorded [...] Mass Index 23.41 01/16/2025 5:28 PM EST Plan of Treatment Upcoming Encounters Date Type Department Care Team (Late st Contact Info) Description 02/26/2025 9:00 AM EST Office Visit [facility] [address] [phone] Antonina Ji PA-C [address] [place] [address] Health Maintenance Due Date Last Done Comments Wellness Exam Medicare 07/06/1948 Hepatitis C Screening 07/06/1965 Zoster (1 of 2) 07/06/1997 Bone Density Screening 07/06/2012 RSV or 60+ (1 - 1-dose 75+ series) 07/06/2022 COVID-19 Vaccine ( - season) 2024 DTaP/TDaP/Td (2 - Td or Tdap) 08/03/2027 08/02/2017 Cologuard Discontinued 07/05/2021 Pneumococcal Vaccine 50+ Completed 023, 04/14/2021, 11/20/2017 Colon Cancer Screening Discontinued Colonoscopy Discontinued 10/03/2024 Influenza Vaccine Completed 12/26/2024, , 12/28/2022, Additional history exists FIT Discontinued Hepatitis B Vaccine Aged Out No longe r eligible based on patient's age to complete this topic Meningococcal B Vaccine Aged Out No l onger eligible based on patient's age to complete this topic Sigmoidoscopy Discontinued Virtual Colonography Discontinued Medical Devices Implanted Type Area Computer Security Coordinator Device Identifier Shelf Expiration Date Model / Serial / Lot Pessary Procedures Procedure Name Priority Date/Time Associated Diagnosis Comments SCANNED RHYTHM STRIPS 01/17/2025 9:00 AM EST ECG AND WAVEFORMS - TELEMETRY Routine 01/17/2025 7:01 AM EST ECG AND WAVEFORMS - TELEMETRY Routine 01/16/2025 9:26 PM EST IP CONSULT TO SOCIAL WORK Routine 01/16/2025 4:07 PM EST ECG AND WAVEFORMS - TELEMETRY Routine 01/16/2025 1:53 PM EST ADMIT Routine 01/16/2025 12:39 PM EST PATHOLOGY TISSUE REQUEST Routine 01/16/2025 11:04 AM EST Uterovaginal prolapse, incomplete INTRAOP AIRWAY PLACEMENT Routine 01/16/2025 10:33 AM EST VAGINAL BIOPSY 01/16/2025 10:26 AM EST Uterovaginal prolapse, incomplete VA CYSTOURETHROSCOPY 01/16/2025 10:26 AM EST Uterovaginal prolapse, incomplete LEVATOR PLICATION 01/16/2025 10:26 AM EST Uterovaginal prolapse, incomplete VA POST COLPORRHAPHY RECTOCELE W/WO PERINEORRHAPHY 01/16/2025 10:26 AM EST Uterovaginal prolapse, incomplete VA COLPOCLEISIS LE FORT TYPE 01/16/2025 10:26 AM EST Uterovaginal prolapse, incomplete BB HISTORY CHECK Routine 01/09/2025 11:30 AM EDT Preop testing Anemia, unspecified type Uterovaginal prolapse SURGERY DATE Routine 01/09/2025 11:30 AM EDT Preop testing Anemia, unspecified type Uterovaginal prolapse ANTIBODY SCREEN IGG Routine 01/09/2025 11:30 AM EDT Preop testing Anemia, unspecified type Uterovaginal prolapse ABORH Routine 01/09/2025 11:30 AM EDT Preop testing Anemia, unspecified type Uterovaginal prolapse PREADMISSION TYPE AND SCREEN Routine 01/09/2025 11:30 AM EDT Preop testing Anemia, unspecified type Uterovaginal prolapse CBC WITH DIFF Routine 01/09/2025 11:30 AM EDT Preop testing Anemia, unspecified type Uterovaginal prolapse SCANNED RHYTHM STRIPS 11/12/2024 12:37 PM EDT [...] PM EDT GLUCOSE METER POC Routine 11/07/2024 12:05 PM EDT GLUCOSE METER POC Routine 11/07/2024 11:43 AM EDT GLUCOSE METER POC Routine 11/07/2024 9:0 5 AM EDT PATHOLOGY TISSUE REQUEST Routine 11/07/2024 8:23 AM EDT Colostomy status (HCC) INTRAOP AIRWAY PLACEMENT Routine 11/07/2024 7:43 AM EDT VA LAPS CLSR NTRSTM LG/SM INT W/RESCJ & ANASTOMOSIS 11/07/2024 7:30 AM EDT Colostomy status (HCC) Special Needs th GLUCOSE METER POC Routine 11/07/2024 7:1 3 AM EDT ADMIT Routine 11/07/2024 5:37 AM EDT COLONOSCOPY Routine 10/03/2024 10:08 AM EDT Colostomy status (HCC) Colostomy present (HCC) Perforation of intestine (HCC) from Last 3 Months or Most Recently Relevant to Health Maintenance Results * SCANNED RHYTHM STRIPS (01/17/2025 9:00 AM EST) Only the most recent of2 resultswithin the time period is included. Anatomical Region Laterality Modality Other 01/17/2025 9:0 0 AM EST us Unknown Provider IMG ECG ORDERABLES Final Result * ECG AND WAVEFORMS - TELEMETRY (01/16/2025 9:26 PM EST) Only the most recent of9 resultswithin the time period is included. ECG INTERPRET NSR [facility] 01/16/2025 9:26 PM EST Narrative [facility] - 01/16/2025 9:30 PM EST PVC'S (AM) ROUTINE VA 0.15 QRS 0.12 RR 0.81 QT 0.38 QTc 0.42 See Clinical Report link for waveform capture us Unknown Provider POINT OF CARE CARDIOLOGY Final Result [facility] [address] [place] [id number] * PATHOLOGY TISSUE REQUEST (01/16/2025 11:04 AM EST) Only the most recent of2 resultswithin the time period is included. CASE REPORT Surgical Pathology Case: [id number] Authorizing Provider: Leta Dupont MD Collected: 01/16/2025 1104 Ordering Location: [facility] Received: 01/16/2025 1256 Pathologist: Terri Burks MD Specimen: Vagina, vaginal biopsy 01/17/2025 2:16 PM EST [facility] FINAL DIAGNOSIS Vaginal biopsy: - Granulation tissue. - Negative for malignancy. 01/17/2025 2:16 PM EST [facility] at 1416 EST GROSS DESCRIPTION The specimen is received in formalin, labeled with the patient's name, medical record number, and vaginal biopsy . It consists of a 0.6 x 0.4 x 0.3 cm crocker-pink tissue fragment. The possible margin is inked blue and the specimen is entirely submitted in cassette A1. INGA Escalante PA(ASCP) 01/16/2025 01/17/2025 2:16 PM EST [facility] MICROSCOPIC DESCRIPTION The microscopic examination may have been rendered in whole, or in part, by analyzing high-resolutio n digital images (whole slide images) on the [employer] Digital Pathology platform validated at [facility]. 01/17/2025 2:16 PM EST [facility] EMBEDDED IMAGES 01/17/2025 2:16 PM EST [facility] Tissue VAGINAL STRUCTURE / Unknown 01/16/2025 11:04 AM EST 01/16/2025 12:56 PM EST Leta Dupont MD PATHOLOGY ORDERABLES Fi nal Result Performing Organization Address [facility]/State/ZIP Co de Phone Number [facility] [address] [place], [place] [id number] [place] [address] * INTRAOP AIRWAY PLACEMENT (01/16/2025 10:33 AM EST) Narrative [facility] - 01/16/2025 10:33 AM EST Pham [...] 1 Attempt 1 by: Kareen Martin Title: TUBE TURNER Ventilation: BMV Sean Rizo MD VA ANESTHESIA Edited Result - Final Performing Organization Address [facility] Co de Phone Number [facility] [address] [place] [address] * BB HISTORY CHECK (01/09/2025 11:30 AM EDT) BB HISTORY CHECK (1) Previous History OK 01/09/2025 1:01 PM EDT [facility] Blood VENOUS BLOOD / Unknown Venipuncture / Unknown 01/09/2025 11:30 AM EDT 01/09/2025 12:26 PM EDT Dorota Dsouza DIRECTOR OF HEMOPHILIA BLOOD BANK ORDERABLES Final R esult Performing Organization Address [facility] Co de Phone Number [facility] [address] [place] [address] * SURGERY DATE (01/09/2025 11:30 AM EDT) Pathologist [facility] Surgery Date (1) Complete 01/09/2025 1:01 PM EDT [facility] Blood VENOUS BLOOD / Unknown Venipuncture / Unknown 01/09/2025 11:30 AM EDT 01/09/2025 12:26 PM EDT Dorota Dsouza DIRECTOR OF HEMOPHILIA BLOOD BANK ORDERABLES Final R esult Performing Organization Address City/[facility] Co de Phone Number [facility] [address] [place] [address] * ABORH (01/09/2025 11:30 AM EDT) Pathologist [facility] ABORH Int A POS 01/09/2025 1:3 6 PM EDT [facility] Blood VENOUS BLOOD / Unknown Venipuncture / Unknown 01/09/2025 11:30 AM EDT 01/09/2025 12:26 PM EDT Dorota Dsouza ELISA BLOOD BANK ORDERABLES Final R esult [facility] [address] [place] [id number] * (ABNORMAL) CBC WITH DIFF (01/09/2025 11:30 AM EDT) Only the most recent of2 resultswithin the time period is included. WBC 8.2 3.7 - 10.3 x10(3)/mcL 01/09/2025 [...] 12:57 PM EDT [facility] RDW 14.7 <=14.9 % 01/09/2025 12:57 PM EDT [facility] Platelet 360 155 - 369 x10(3)/mcL 01/09/2025 12:57 PM EDT [facility] MPV 8.5(L) 8.8 - 12.5 fL 01/09/2025 12:57 PM EDT [facility] Neut Percent 58.6 % 01/09/2025 12:57 PM EDT [facility] Comment:Neutrophils equals s egs plus bands Imm Gran% 0.2 % 01/09/2025 12:57 PM EDT [facility] Comment:Automated count of m etamyelocytes, myelocytes and promyelocytes. Lymph Percent 30.1 % 01/09/2025 12:57 PM EDT [facility] Tripp Percent 8.3 % 01/09/2025 12:57 PM EDT [facility] Eos Percent 2.2 % 01/09/2025 12:57 PM EDT [facility] Baso Percent 0.6 % 01/09/2025 12:57 PM EDT [facility] Neut # 4.8 1.6 - 6.1 x10(3)/mcL 01/09/2025 12:57 PM EDT [facility] Comment:Neutrophils equals s egs plus bands IMMGRAN# 0.0 0.0 - 0.1 x10(3)/mcL 01/09/2025 12:57 PM EDT [facility] Comment:Automated count of m etamyelocytes, myelocytes and promyelocytes. An absolute IG <0.1 is reported as 0.0. Lymph # 2.5 1.2 - 3.9 x10(3)/mcL 01/09/2025 12:57 PM EDT [facility] Tripp # 0.7 0.3 - 0.9 x10(3)/mcL 01/09/2025 12:57 PM EDT [facility] Eos# 0.2 0.0 - 0.5 x10(3)/mcL 01/09/2025 12:57 PM EDT [facility] Baso # 0.1 0.0 - 0.1 x10(3)/mcL 01/09/2025 12:57 PM EDT [facility] Blood VENOUS BLOOD / Unknown Venipuncture / Unknown 01/09/2025 11:30 AM EDT 01/09/2025 12:26 PM EDT us Dorota Dsouza DIRECTOR OF HEMOPHILIA HEMATOLOGY ORDERABLES Final R esult [facility] [address] [facility] [address], [place] [address] * ANTIBODY SCREEN IGG (01/09/2025 11:30 AM EDT) Pathologist [facility] ABSC IgG Int Negative 01/09/2025 1:42 PM EDT [facility] Blood VENOUS BLOOD / Unknown Venipuncture / Unknown 01/09/2025 11:30 AM EDT 01/09/2025 12:26 PM EDT Dorota Dsouza APRN BLOOD BANK ORDERABLES Final R esult [facility] [address] [place] [address] * (ABNORMAL) CBC (11/11/2024 6:29 AM EDT) Only the most recent of3 resultswithin the time period is included. Pathologist [facility] WBC 6.7 3.7 - 10.3 x10(3)/mcL 11/11/2024 [...] ORDERABLES Final Re sult [facility] [address] [facility] , [place] [address] * (ABNORMAL) BASIC METABOLIC PANEL (11/09/2024 9:56 AM EDT) Only the most recent of2 resultswithin the time period is included. Sodium 134(L) 136 - 145 mmol/L 11/09/2024 10:55 AM EDT [facility] Potassium 3.7 3.5 - 5.0 mmol/L 11/09/2024 10:55 AM EDT [facility] Chloride 99 98 - 107 mmol/L 11/09/2024 10:55 AM EDT [facility] Total CO2 23 22 - 29 mmol/L [...] recommended by the National Kidney Foundation - [place] Society of Nephrology Task Force. Blood VENOUS BLOOD / Unknown Venipuncture / Unknown 11/09/2024 9:56 AM EDT 11/09/2024 10:20 AM EDT Nancy He MD CHEMISTRY ORDERABLES Final Res ult Performing Organization Address [facility] Co de Phone Number [facility] [employer] [address] [facility], [address] [place] [phone] * (ABNORMAL) GLUCOSE METER POC (11/07/2024 12:05 PM EDT) Only the most recent of4 resultswithin the time period is included. [facility] Glucose Meter POC 152(H) 70 - 100 mg/dL 11/07/2024 12:07 PM EDT [facility] Sample Type Capillary 11/07/2024 12:07 PM EDT [facility] Patient Status Non-Critical Patient 11/07/2024 12:07 PM EDT [facility] Blood BLOOD SPECIMEN / Unknown 11/07/2024 12:05 PM EDT 11/07/2024 12:07 PM EDT Monica Arzola MD POINT OF CARE TEST ORDERABLES Fi nal Result Performing Organization Address [facility] de Phone Number [place] [phone] * INTRAOP AIRWAY PLACEMENT (11/07/2024 7:43 AM EDT) Narrative [facility] - 11/07/2024 7:43 AM [...] Atraumatic and Unchanged Insertion attempts: 1 Title: TUBE TURNER us Christal Owens MD [place] ANESTHESIA Final Res ult [address] [id number] * COLONOSCOPY (10/03/2024 10:08 AM EDT) Anatomical [...] Quispe CRNA, MD Anesthesiologist Divya Novoa RN Habilitation Training Specialist Monica Arzola MD Performing Provider Medications See [...] of bowel preparation was evaluated using the [place] Bowel Preparation Scale with scores of: right [...] MD ENDOSCOPY PROCEDURE ORDERABLES F inal Result from Last 3 Months or Most Recently Relevant to Health Maintenance Insurance [employer] MEDICARE HMO MR Advance Directives For more information, please contact: [phone] * Full Code (Latest Code Status on File) Date Activated Date Inactivated Comments 01/16/2025 1:56 PM 01/17/2025 3:12 PM * Full Code Date Activated Date Inactivated Comments 11/07/2024 3:18 PM 11/11/2024 5:27 PM Care Teams Veneer Glue Jointer Feedback Relationship Specialty Start Date End Date Chas Barrera [address] [place] [address] [address] [place] [address] PCP - General Family Medicine 11/08/24
--- OUTSIDE RECORDS SUMMARY | 2025-02-03 09:14 | XMS_ITS | Encounter Summary ---
Author Organization [place] [address] Care Team Providers Care Paper Tube Machine Operator Name Role Phone Chas Barrera Primary Care Provider [phone] Reason for Visit * Reason Onset Date Comments Pre-op Call 01/09/2025 Encounter Details Date Type Department Care Team (Late st Contact Info) Description 01/09/2025 Telephone [facility] [address] [phone] Melanie Villagomez LPN Pre-op Call Social History Tobacco Use Types Packs/Day Years Used Date Smoking Tobacco: Never Smokeless Tobacco: Never Alcohol Use Standard Drinks/Week Comments Not Currently 0 (1 standard drink = 0.6 oz pur e alcohol) [facility] Utilities Answer Date Recorded In the past 12 months has [employer], gas, oil, or water [employer] threatened to shut off services in your home? No 11/08/2024 Overall Financial Resource Strain (CARDIA) Answe r Date Recorded How hard is it for you to pa y for the very basics like food, housing, medical care, and heating? Not hard at all 11/08/2024 PHQ-2 Answer Date Recorded PHQ-2 Total Score 0 11/08/2024 [facility] [place] of Occupat ional Health - Occupational Stress [...] money to get more. Never true 11/08/[address] [facility] IP Transportation [...] Telephone Encounter - Melanie Villagomez LPN - 01/09/2025 9:09 AM EDTSummary: Pre-Op Call Images from the original note were not included. Urogyn Pre-op Phone Call Spoke with Daughter, Kellie 1. Alesha Szymanski, 1945 2. Procedure:[place] Colpocleisis, Posterior Repair with levator plication, Cystoscopy , Surgery Date/Time: 01/16/25 @ 0730 3. H&P by PCP: Patient is cleared for surgery, H&P completed date: 10/23/24 by Chas Barrera 4. Cardiac Clearance provided by Naina Locke APRN on 12/23/24 Lab Results: CBC: Lab Results Component Value Date WBC 6.7 11/11/2024 HGB 10.6 (L) 11/11/2024 HCT 32.6 (L) 11/11/2024 MCV 98.8 11/11/2024 PLT 284 11/11/2024 CMP: Lab Results Component Value Date NA 134 (L) 11/09/2024 K 3.7 11/09/2024 CL 99 11/09/2024 CO2 23 11/09/2024 ANIONGAP 12 11/09/2024 CALCIUM 9.4 11/09/2024 GLU 111 (H) 11/09/2024 BUN 15 11/09/2024 CREATININE 0.99 11/09/2024 Imaging Results: Any past issues with anesthesia including malignant hyperthermia or latex allergy? NO Pre-op Call: 1. NPO by midnight before surgery 2. No blood thinners x1 week, per Cardio, hold Eliquis 2 days Pre-Op, restart when deemed safe by Surgeon 3. Arrive 2 hours prior to surgery 4. Please read the provided surgical folder with all the pre-op and post-op instructions. 5. STOP ASA and Fish Oil today until after surgery 6. Begin Miralax 7. ERAS instructions given Melanie Villagomez LPN documented in this encounter Plan of Treatment Upcoming Encounters Date Type Department Care Team (Late st Contact Info) Description 02/26/2025 9:00 AM EST Office Visit [facility] [address] [phone] Antonina Ji PA-C [address] [place] [address] documented as of this encounter Visit Diagnoses Not on filedocumented in this encounter Care Teams Paper Tube Machine Operator Relationship Specialty Start Date End Date Chas Barrera [address] [facility] [address] [place] [address] PCP - General Family Medicine 11/08/24 documented as of this encounter
--- OUTSIDE RECORDS SUMMARY | 2025-02-03 09:14 | XMS_ITS | Clinical Summary ---
Author Organization [facility] Address [address] [place] [address] Care Team Providers Care Wood Boatbuilder Name Role Phone Ananth Almeida MD Primary Care Provider [phone] Social History Tobacco Use Types Packs/Day Years [...] or (1 - 1-dose 75+ series) 07/06/2022 [id number]-87 Vaccine (1 - 2024- season) 2024 UKY-Influenza Vaccine (#1) 11/11/202404/14, 12/31/2019, [...] patient's age to complete this topic Insurance [facility] MEDICARE Care Teams Wood Boatbuilder Relationship Specialty Start Date End Date Ananth Almeida MD [address] [place] [address] PCP - General 03/13/20
--- OUTSIDE RECORDS SUMMARY | 2025-02-03 09:14 | XMS_ITS | Encounter Summary ---
Author Organization [facility] [place] [address] Care Team Providers Care Head Cleaning Porter Name Role Phone Chas Barrera Primary Care Provider Encounter Details Date Type Department Care Team (Latest Contact Info) Description 01/09/2025 Travel Social History Tobacco Use Types Packs/Day Years Used Date Smoking Tobacco: Never Smokeless Tobacco: Never Alcohol Use Standard Drinks/Week Comments Not Currently 0 (1 standard drink = 0.6 oz pur e alcohol) [facility] Utilities Answer Date Recorded In the past 12 months has [employer] electric, gas, oil, or water company threatened to shut off services in your home? No 11/08/2024 Overall Financial Resource Strain (CARDIA) Answe r Date Recorded How hard is it for you to pa y for the very basics like food, housing, medical care, and heating? Not hard at all 11/08/2024 PHQ-2 Answer Date Recorded PHQ-2 Total Score 0 11/08/2024 [facility] [place] of Occupat ional Health - Occupational Stress [...] money to get more. Never true 11/08/2024 [facility] IP Transportation Answer D ate Recorded [...] 9:00 AM EST Office Visit [facility] [address] [address] Antonina Ji PA-C [address] [place] [address] documented as of this encounter Visit Diagnoses Not on filedocumented in this encounter Care Teams Head Cleaning Porter Relationship Specialty Start Date End Date Chas Barrera [address] [place] [address] [address] [place] [address] PCP - General Family Medicine 11/08/24 documented as of this encounter
--- OUTSIDE RECORDS SUMMARY | 2025-02-03 09:14 | XMS_ITS | Encounter Summary ---
Author Organization 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 Name Role Phone Chas Barrera Primary Care Provider [phone] Encounter Details Date Type Department Care Team (Late st Contact Info) Description 01/09/2025 Orders Only [facility] [address] [address] Melanie Villagomez LPN Uterovaginal prolapse, incomplete (Primary Dx) Social History Tobacco Use Types Packs/Day Years Used Date Smoking Tobacco: Never Smokeless Tobacco: Never Alcohol Use Standard Drinks/Week Comments Not Currently 0 (1 standard drink = 0.6 oz pur e alcohol) [facility] Utilities Answer Date Recorded In the past 12 months has [employer] electric, gas, oil, or water company threatened to shut off services in your home? No 11/08/2024 Overall Financial Resource Strain (CARDIA) Answe r Date Recorded How hard is it for you to pa y for the very basics like food, housing, medical care, and heating? Not hard at all 11/08/2024 PHQ-2 Answer Date Recorded PHQ-2 Total Score 0 11/08/2024 [facility] [place] of Occupat ional Health - Occupational Stress [...] to get more. Never true 11/08/2024 [facility] IP Transportation Answer D ate Recorded [...] as of this encounter Progress Notes * Melanie Villagomez LPN - 01/09/2025 9:25 AM EDT Images from the original note were not included. documented in this encounter Plan of Treatment Upcoming Encounters Date Type Department Care Team (Late st Contact Info) Description 02/26/2025 9:00 AM EST Office Visit [facility] [address] [phone] Antonina Ji PA-C [address] [place] [address] documented as of this encounter Visit Diagnoses Diagnosis Uterovaginal prolapse, incomplete- Primary documented in this encounter Care Teams Harbor Boat Pilot Relationship Specialty Start Date End Date Chas Barrera [address] [facility] [address] [place] [address] PCP - General Family Medicine 11/08/24 documented as of this encounter
== END 2025-02-03 23:59 ==
LOC: RAD 09:10
PROVIDERS: PCP Physician Assistant; Visit Provider Family Medicine
DX: Z13.820 Encounter for screening for osteoporosis (principal); Z78.0 Asymptomatic menopausal state; M85.88 Other specified disorders of bone density and structure, other site
CPT/HCPCS: 77080